=== PATIENT | male | born 1965 | race Caucasian/White ===

== ENCOUNTER 2017-10-11 04:05 | Outpatient (RCR) | payer MEDICARE, SELFPAY | END 2017-11-10 04:05 | LOC: CR 04:05 | PROVIDERS: PCP Nurse Practitioner Family; Visit Provider Family Medicine | DX: I25.2 Old myocardial infarction (principal); Z95.5 Presence of coronary angioplasty implant and graft; Z51.89 Encounter for other specified aftercare ==

== ENCOUNTER → 2018-02-14 09:28 | Outpatient (BNVA) | payer MEDICARE, SELFPAY | PROVIDERS: PCP Nurse Practitioner Family; Visit Provider Student in an Organized Health Care Education/Training Program | DX: R69 Illness, unspecified (principal) | CPT/HCPCS: 99214 ==

== ENCOUNTER 2018-02-14 10:24 | Outpatient (CLI) | payer MEDICARE, SELFPAY ==
[2018-02-14 10:50] LABS: HCT 44.7 % (40.0-50.0); HGB 15.9 g/dL (13.5-17.5); Mean Corp. HGB Concentration 35.6 g/dL (32.0-36.0); Mean Corpuscular Hemoglobin 31.8 pg (27.0-33.0); Mean Corpuscular Volume 89.4 fL (80-95); Mean Platelet Volume 9.9 fL (8.0-11.0); Platelet Count 229 x1000/uL (130-400); RBC Distribution Width 12.1 % (11.8-14.1); White Blood Cell Count 17.01 k/cumm (4.4-10.8)
[2018-02-14 12:21] LABS: ALT 39 U/L (12-78); AST 19 U/L (15-37); Albumin 3.7 g/dL (3.4-5.0); Alkaline Phosphatase 117 U/L (46-116); Anion Gap 9.3 mmol/L (3-11); BUN 20 mg/dL (7-18); Bilirubin, Total 0.6 mg/dL (0.2-1.0); CO2 26.7 mmol/L (21.0-32.0); CREATININE 1.33 mg/dL (0.70-1.30); Calcium 9.3 mg/dL (8.5-10.1); Chloride 99 mmol/L (98-107); Cholesterol 147 mg/dL (50-200); Estimated GFR 56.69 (mL/min/1.73m2); Glucose 211 mg/dL (70-100); HDL Cholesterol 31 mg/dL (40-60); LDL CHOLESTEROL 77 mg/dL (<100); Potassium 4.6 mmol/L (3.5-5.1); Sodium 135 mmol/L (136-145); Total Protein 6.8 g/dL (6.4-8.2); Triglyceride 313 mg/dL (30-150)
== END 2018-02-14 10:44 ==
PROVIDERS: PCP Nurse Practitioner Family; Visit Provider Student in an Organized Health Care Education/Training Program
DX: I25.10 Atherosclerotic heart disease of native coronary artery without angina pectoris (principal); F17.210 Nicotine dependence, cigarettes, uncomplicated; M62.81 Muscle weakness (generalized); E11.9 Type 2 diabetes mellitus without complications; Z79.84 Long term (current) use of oral hypoglycemic drugs; J44.9 Chronic obstructive pulmonary disease, unspecified
CPT/HCPCS: 36415; 80053; 80061; 83721; 85027; 99214

== ENCOUNTER 2018-03-15 09:44 | Outpatient (REF) | payer MEDICARE, SELFPAY ==
[2018-03-15 12:57] LABS: HCT 45.2 % (40.0-50.0); HGB 15.5 g/dL (13.5-17.5); Mean Corp. HGB Concentration 34.3 g/dL (32.0-36.0); Mean Corpuscular Hemoglobin 31.3 pg (27.0-33.0); Mean Corpuscular Volume 91.3 fL (80-95); Mean Platelet Volume 10.2 fL (8.0-11.0); Platelet Count 219 x1000/uL (130-400); RBC 4.95 m/cumm (4.50-6.00); RBC Distribution Width 12.6 % (11.8-14.1); White Blood Cell Count 9.99 k/cumm (4.4-10.8)
[2018-03-15 13:05] LABS: Iron 74 ug/dL (50-175); Total Iron Binding Capacity 300 ug/dL (250-450); Transferrin Sat 25 % (20-55)
[2018-03-15 13:26] LABS: BUN 15 mg/dL (7-18); CREATININE 1.28 mg/dL (0.70-1.30); Calcium 9.2 mg/dL (8.5-10.1); Chloride 102 mmol/L (98-107); Estimated GFR 59.25 (mL/min/1.73m2); Ferritin 105 ng/mL (8-388); Glucose 197 mg/dL (70-100); Magnesium 1.7 mg/dL (1.8-2.4); Potassium 4.7 mmol/L (3.5-5.1); Sodium 139 mmol/L (136-145); TSH (W/Ref FT4) 1.67 uIU/mL (0.358-3.74)
== END 2018-03-15 10:04 ==
LOC: NCHCN 09:44
PROVIDERS: PCP Nurse Practitioner Family; Visit Provider Nurse Practitioner Family
DX: E11.9 Type 2 diabetes mellitus without complications (principal); F41.8 Other specified anxiety disorders; R53.83 Other fatigue; R13.10 Dysphagia, unspecified; R00.2 Palpitations; G47.33 Obstructive sleep apnea (adult) (pediatric); J44.9 Chronic obstructive pulmonary disease, unspecified; R25.2 Cramp and spasm
CPT/HCPCS: 80048; 85027; 82728; 83540; 83550; 83735; 84443

== ENCOUNTER 2018-04-13 09:51 | Emergency (ER) | payer MEDICARE, SELFPAY ==
[2018-04-13 10:01] VITALS: BP 153/87; PULSE 79; RESP 18; TEMP 36.7; O2SAT 97
--- NOTE | 2018-04-13 10:03 | ED.GENADUL_ITS ---
Discharge Plan Disposition Patient Disposition: AGAINST MEDICAL ADVICE Condition: Stable Discharge Details Chief Complaint: Chest Pain Clinical Impression: Unstable angina Primary Care Provider: Abi Lazaro ED Provider: Mihai Jaime Home Meds and New Rx's Prescriptions: Continued amlodipine 2.5 mg tablet 2.5 mg PO DAILY Qty: 90 RF: 3 blood-glucose meter 1 EACH misc 1 ea Miscellaneous ONCE Qty: 1 RF: 0 blood sugar diagnostic [Blood Glucose Test] 1 EACH strip 1 ea Miscellaneous BID Qty: 200 RF: 4 lancets 1 EACH misc 1 ea Miscellaneous BID Qty: 200 RF: 4 metformin 1,000 MG tablet 1,500 mg PO HS Qty: 90 RF: 4 glipizide 5 MG tablet 5 mg PO HS Qty: 90 RF: 4 ProAir HFA 8.5 GM HFA aerosol inhaler 2 puff Inhalation Q6H PRN Qty: 1 RF: 4 nitroglycerin 0.4 MG tablet, sublingual 0.4 mg Sublingual ONCE Qty: 30 RF: 3 aspirin [Aspir-81] 81 MG tablet,delayed release (DR/EC) 81 mg PO DAILY RF: 0 Metoprolol Succinate 25 MG TAB.ER.24H 25 mg PO DAILY RF: 0 acetaminophen 325 MG tablet 650 mg PO Q6H PRN RF: 0 pantoprazole 40 MG tablet,delayed release (DR/EC) 40 mg PO DAILY RF: 0 clopidogrel [Plavix] 75 MG tablet 75 mg PO DAILY RF: 0 Discharge Instructions Instructions: Chest Pain (ED) Additional Instructions: Return immediately to the emergency department for any concerns that you may have for further reevaluation. Please take your medications as prescribed and it is recommended that you follow-up with spa manager/esthetician next week or as soon as possible. Referrals: Abi Lazaro [Primary Care Provider] - Jg Stubbs MD [ CONSULTING PHYSICIAN] - Discharge Data Discharge Date/Time-TO BE ENTERED AT DEPARTURE: 04/13/18 15:57 Medical Decision Making Patient presenting to the emergency department for chief complaint of chest pain. Patient states that this started yesterday morning and has persisted since. Patient does state that pain does occur with both rest and activity and is intermittent with sharp episodes and other episodes having dull pressure. He does state this morning pain was more severe and having an episode of diaphoresis and shortness of breath that seemed to resolve after he took one nitro but still having some chest pressure. Patient does report that this is similar in nature to when he had a non-STEMI approximately 9 months ago which required 2 stents needing to be placed. Patient states he has been taking his medication as prescribed and denies any other symptoms. Physical exam is unremarkable for any reproducible chest pain, abnormal respiratory exam, otherwise unremarkable examination. Patient is stable at this time. Plan to check labs, EKG, and chest x-ray. Patient given additional doses of aspirin to equal 324mg along with Nitropaste transdermal. Review of initial labs is nondiagnostic, slight hypomagnesemia which patient was ordered 1 dose of 400 mg p.o., and negative initial troponin. Review of chest x-ray shows no acute findings. Plan to check 4-hour troponin for rule out of non-STEMI and patient is agreeable to this plan of care. Review of second troponin shows no elevation. Patient reassessed and states pain has minimalized but he still feels constant pressure. Plan to check with spa manager/esthetician and recommend admission. I did discuss admission with the patient which patient refused admission. Patient's heart score shows moderate risk factors for possible cardiac event and this was discussed with patient and patient was adamant that he did not want to stay in the hospital. Pending being able to speak with spa manager/esthetician patient stated he was ready to leave and signed out AMA. Patient states understanding to return for any reason and we would reassess and evaluate at that time. Patient encouraged to continue medication as prescribed by primary care providers. After discussion of diagnosis and plan of care patient has no further needs, questions, or concerns and states clear understanding to return to the emergency department as needed Did speak with Dr. Schwab who was stated he would inform the office of patient needing close follow-up for unstable angina but made no other recommendations at this time. ECG Data Attestation: I personally reviewed and interpreted this ECG (s) as follows: Interpretation: EKG reviewed with Dr. Gutierrez. EKG shows sinus rhythm with a rate of 75, normal axis, no acute ST ischemic changes noted. Repeat EKG shows rate of 66, normal sinus rhythm, normal axis, no acute ST changes, nondiagnostic EKG HPI General Mode of arrival: ambulatory . Date/Time Provider Initiated Documentation: 04/13/18 09:58 . Limitations to Documentation: no limitations . Information obtained by: patient and RN notes reviewed . History of Present Illness described as moderate, with intensity rated at 5. Quality is described as aching, and is localized to the chest. Patient started experiencing this hour(s) (24) and it has been constant. Medication improves symptom(s), (nitro) No exacerbating factors reported . Patient did receive the following treatments prior to arrival, Aspirin and other (nitro) Related Data Home Medications Medication Instructions Recorded Confirmed blood sugar diagnostic [Blood #200 strip 12/04/15 02/14/18 Glucose Test] blood-glucose meter #1 ea 12/04/15 02/14/18 lancets #200 ea 12/04/15 02/14/18 glipizide 5 mg PO HS #90 tab-cap 08/19/16 04/13/18 metformin 1,500 mg PO HS #90 tab-cap 08/19/16 04/13/18 ProAir HFA 2 puff INHALATION Q6H PRN #1 03/24/17 04/13/18 inhaler Metoprolol Succinate 25 mg PO DAILY 08/28/17 04/13/18 aspirin [Aspir-81] 81 mg PO DAILY 08/28/17 04/13/18 nitroglycerin 0.4 mg SUBLINGUAL ONCE #30 tab-cap 08/28/17 04/13/18 clopidogrel [Plavix] 75 mg PO DAILY 09/03/17 04/13/18 acetaminophen 650 mg PO Q6H PRN tab-cap 10/06/17 04/13/18 pantoprazole 40 mg PO DAILY 10/06/17 04/13/18 amlodipine 2.5 mg tablet 2.5 mg PO DAILY #90 tab 02/14/18 04/13/18 Previous Rx's Medication Instructions Recorded ProAir HFA 2 puff INHALATION Q6H PRN #1 03/24/17 inhaler nitroglycerin 0.4 mg SUBLINGUAL ONCE #30 tab-cap 08/28/17 amlodipine 2.5 mg tablet 2.5 mg PO DAILY #90 tab 02/14/18 Allergies Allergy/AdvReac Type Severity Reaction Status Date / Time venlafaxine AdvReac Severe Nausea Unverified 04/13/18 10:04 doxycycline AdvReac Intermediate Cold Unverified 04/13/18 10:04 Chills, made him sick. Review of Systems Constitutional Denies chills, Denies fever(s) and Denies malaise Cardiovascular Reports as per HPI, Reports chest pain, Denies chest pain with activity, Denies syncope, Denies irregular heart rhythm, Denies palpitations and Reports dyspnea Respiratory Denies cough, Denies hemoptysis and Reports dyspnea Gastrointestinal Denies abdominal pain, Denies nausea and Denies vomiting Neurologic Denies syncope Psychiatric Denies anxiety Endocrine Denies cold intolerance, Denies heat intolerance and Denies palpitations PFSH Medical History Acute nontraumatic kidney injury Barretts esophagus CAD (coronary artery disease) Chronic obstructive lung disease DM (diabetes mellitus) Depression with anxiety Hyperlipidemia CARLOTA (obstructive sleep apnea) Parastomal hernia Smoker Spondylosis of cervical region without myelopathy or radiculopathy Thoracic spine pain Surgical History Colonoscopy - MAC EGD - MAC (02/18/14) EGD - MAC (11/09/15) EGD - MAC (08/23/16) Luisana Fundoplication Open Carpal Tunnel release Vasectomy left shoulder repair right ulnar graft Family History Father Diabetes Alcohol abuse Essential hypertension Hyperlipidemia Neoplasm Mother Diabetes Essential hypertension Heart disease Hyperlipidemia Mental disorder Brother Hyperlipidemia Sister Heart disease Social History Smoking/Tobacco Use Status: Current every day Exam Const General: cooperative, healthy appearing, comfortable, no acute distress, not diaphoretic and not ill appearing Orientation: alert, awake and oriented x3 Limitations: mental status not altered Neck Neck: normal visual inspection, full ROM, trachea midline, supple and no anterior neck swelling Thyroid: thyroid normal Carotids: normal carotid upstroke and no bruits Chest Chest: normal inspection of the chest Resp Effort & Inspection: normal respiratory effort and able to speak in complete sentences Auscultation: clear to auscultation bilaterally Cardio Jugular venous pressure: no JVD Palpation: normal PMI Rate: regular rate Rhythm: regular rhythm Heart Sounds: S1 normal, S2 normal, no click, no gallops, no murmurs and no rubs Bruits: no abdominal aortic bruits and no carotid bruits Pulses: radial pulses present bilaterally 2+ GI Inspection: normal to inspection Palpation: soft, no aortic enlargement, no pulsatile masses and nontender Auscultation: normal bowel sounds Skin General skin exam: no rashes or lesions noted Neuro General: alert, awake, oriented x3, tone normal and moves all extremities
[2018-04-13] MEDS: Aspirin 81 MG CHEW 243 MG CH (10:13)
[2018-04-13 10:29] LABS: Abs Immature Grans 0.02 k/cumm (0.0-0.09); Absolute Basophil Count 0.06 k/cumm (0.0-0.2); Absolute Eosinophil Count 0.19 k/cumm (0.0-0.7); Absolute Monocyte Count 0.68 k/cumm (0.11-0.7); Basophils % 0.5; Eosinophils % 1.5; HCT 45.3 % (40.0-50.0); Immature Grans % 0.2; Lymphocytes % 23.8; Mean Corp. HGB Concentration 35.3 g/dL (32.0-36.0); Mean Corpuscular Hemoglobin 32.1 pg (27.0-33.0); Mean Corpuscular Volume 90.8 fL (80-95); Mean Platelet Volume 9.3 fL (8.0-11.0); Monocytes % 5.3; Neutrophils % 68.7; Platelet Count 221 x1000/uL (130-400); RBC 4.99 m/cumm (4.50-6.00); RBC Distribution Width 12.6 % (11.8-14.1); White Blood Cell Count 12.84 k/cumm (4.4-10.8)
[2018-04-13 10:30] LABS: Absolute Lymphocyte Count 3.06 k/cumm (1.2-3.4); Absolute Neutrophil Count 8.82 k/cumm (1.2-6.7)
[2018-04-13 10:39] LABS: ALT 41 U/L (12-78); AST 20 U/L (15-37); Albumin 3.5 g/dL (3.4-5.0); Alkaline Phosphatase 107 U/L (46-116); Anion Gap 8.2 mmol/L (3-11); BUN 17 mg/dL (7-18); Bilirubin, Total 0.5 mg/dL (0.2-1.0); CO2 29.8 mmol/L (21.0-32.0); Calcium 8.9 mg/dL (8.5-10.1); Chloride 100 mmol/L (98-107); Glucose 171 mg/dL (70-100); Magnesium 1.4 mg/dL (1.8-2.4); Potassium 4.3 mmol/L (3.5-5.1); Sodium 138 mmol/L (136-145); Total Protein 7.1 g/dL (6.4-8.2)
[2018-04-13 10:42] LABS: PTT Activated 22.7 sec (21.0-31.4); Prothrombin Time 9.6 sec (9.3-11.0)
[2018-04-13 10:43] LABS: Troponin I < 0.02 ng/mL (0.00-0.06)
--- NOTE | 2018-04-13 11:21 | DI.RAD_ITS ---
SYMPTOM/DIAGNOSIS: CHEST PAIN, SHORTNESS OF BREATH PA AND LATERAL CHEST: 04/13/18 The heart is normal in size. The lungs are clear. The mediastinal structures and pleura appear intact. CONCLUSION: Normal chest.
[2018-04-13] MEDS: Magnesium Oxide 400 MG TAB PO (11:45)
[2018-04-13 11:50] VITALS: BP 128/78; PULSE 72; RESP 16; O2SAT 99
[2018-04-13 13:26] VITALS: BP 126/84; PULSE 63; RESP 18; O2SAT 99
--- NOTE | 2018-04-13 13:27 | NUR.NOTE ---
patient reports intermtient chest pain Nursing Note:
[2018-04-13 15:03] LABS: Troponin I < 0.02 ng/mL (0.00-0.06)
--- NOTE | 2018-04-13 15:36 | NUR.NOTE ---
patient's I V dc'd per request, states, I am leaving encouraged to stay, INTELLIGENCE AGENT aware. Nursing Note:
--- NOTE | 2018-04-13 15:57 | NUR.NOTE ---
patient left AMA, FREIGHT LOADER went over risks of leaving with patient, patient encouraged to stay and declined. nitro patch removed FREIGHT LOADER order Nursing Note:
--- NOTE | 2018-04-16 09:18 | PDOC.ERCMPRO ---
Care Management Progress Note 04/16-Kian DSOUZA requested cardiology f/u early this week for unstable angina. Kian has spoken with Dr. Schwab. Referral faxed to [facility] this am.
== END 2018-04-13 15:57 | disposition left against medical advice (07) ==
PROVIDERS: Emergency Provider Nurse Practitioner Family; PCP Nurse Practitioner Family
DX: I20.0 Unstable angina (principal); E83.42 Hypomagnesemia
CPT/HCPCS: 36415; 80053; 93005; 99285; 71046; 83735; 84484; 85025; 85610; 85730; 93010

== ENCOUNTER → 2018-04-18 13:36 | Outpatient (BNVA) | payer MEDICARE, SELFPAY | PROVIDERS: PCP Nurse Practitioner Family; Visit Provider Student in an Organized Health Care Education/Training Program | DX: I25.10 Atherosclerotic heart disease of native coronary artery without angina pectoris (principal); J44.9 Chronic obstructive pulmonary disease, unspecified; F17.210 Nicotine dependence, cigarettes, uncomplicated; E11.9 Type 2 diabetes mellitus without complications; Z79.84 Long term (current) use of oral hypoglycemic drugs | CPT/HCPCS: 99215 ==

== ENCOUNTER 2018-04-23 00:31 | Outpatient (CLI) | payer MEDICARE, SELFPAY ==
--- NOTE | 2018-04-23 06:50 | MERGEMPI_ITS ---
*[facility]* *[facility]* [address] [place] [address] Myocardial Perfusion Imaging - SPECT Cabrera protocol Date of study: 04/23/2018 *PATIENT PRESENTATION* Height: 182.9cm (72in) Blood Pressure: Weight: 120.9kg (266lb) BSA: 2.52m^2 Referring physician: Angeles Bowens Ordering physician: Jg Stubbs Impressions: - Normal study after pharmacologic stress. - Good functional capacity - stress converted to pharm stress as THR not achieved. Summary: 1. Myocardial perfusion imaging: No myocardial perfusion defects noted. 2. The calculated left ventricular ejection fraction after stress: 70%. LV global systolic function is normal. No left ventricular regional motion abnormality. 3. Stress: The target heart rate was not achieved. Indication: R07.9. History: REASON FOR TESTING: PATIENT PRESENTED TO THE ED ON 04/13/18 WITH INTERMITTENT EPISODES OF MIDSTERNAL SHARP CHEST PAINS, ALTHOUGH AT OTHER TIMES HIS CHEST PAIN WILL BE A DULL PRESSURE. CHEST PAIN OCCURS AT REST AND WITH ACTIVITY. TROPONINS IN ER WERE NEGATIVE. PATIENT REPORTS HAVING INTERMITTENT CHEST PAIN FOR THE PAST 18 MONTHS. CHEST PAIN OCCASIONALLY WILL RADIATE TO NECK AND HE MAY HAVE DIAPHORESIS. TODAY PATIENT DENIES CHEST PAIN UPON ARRIVAL TO EXERCISE TESTING. SIGNIFICANT PAST MEDICAL HISTORY: STATUS POST RCA PCI FOR STEMI IN AUGUST 2017. TWO STENTS PLACED IN AUGUST 2017. SMOKING STATUS: SMOKER 40 YEARS, 2 PPD EXERCISE ROUTINE: DAILY ADL'S. PMH: COPD. Risk factors: Family history of coronary artery disease. Current tobacco use. Dyslipidemia. Cholesterol: 147mg/dl. HDL: 31mg/dl. LDL: 77mg/dl. Triglycerides: 313mg/dl. ALLERGIES: NO KNOWN ALLERGIES. MEDICATIONS: ACETAMINOPHEN 650 MG PRN, ASPIRIN 81 MG DAILY, ATORVASTATIN 20 MG HS, PLAVIX 75 MG DAILY, GLIPIZIDE 5 MG HS, ISOSORBIDE MONONITRATE 30 MG DAILY, METFORMIN 1000 BID, METOPROLOL 25 MG DAILY, NITROGLYCERIN 0.4 MG PRN, PANTOPRAZOLE 40 MG HS, PROAIR HFA 2 PUFFS PRN. Imaging Technique: Protocol: Cabrera protocol. Acquisition: Gated SPECT; 1 day - rest/stress. The patient was imaged in the supine position. Attenuation correction used. Isotope administration: - Rest. Tc[99m]-sestamibi. Dose: 11.7mCi. Injection time: 08:15 AM. Injection to stress time: 00:45. - Stress. Tc[99m]-sestamibi. Dose: 37.1mCi. Injection time: 10:35 PM. 1-2 min before end of exercise Baseline ECG: SINUS RHYTHM. HR 76 BPM. Stress protocol: + +---+ + + !Stage !HR !BP (mmHg) !Comments ! + +---+ + + !Baseline supine !76 !136/90 (105)! ! + +---+ + + !Baseline standing !85 !124/90 (101)! ! + +---+ + + !Stage I; 1.7mph, 10degrees; 3 min!113!152/84 (107)! ! + +---+ + + !Stage II; 2.5mph, 12degrees; 3 !117!168/84 (112)! ! !min ! ! ! ! + +---+ + + !Peak stress !129! ! ! + +---+ + + !Recovery; 1 min !115!170/80 (110)! ! + +---+ + + !1 min !101!158/84 (109)!Susi Ryan.! + +---+ + + !3 min !94 !140/88 (105)! ! + +---+ + + !6 min !86 !140/90 (107)! ! + +---+ + + * Stress results: STRESS TEST ENDED IN 9 MINUTES 1 SECOND DUE TO FATIGUE. PATIENT DID NOT MEET TARGET HEART RATE. NORMAL HEART RATE AND BLOOD PRESSURE RESPONSE TO EXERCISE. MAX HEART RATE: 129 76 % OF TARGET HEART RATE. MET'S: 1035 RARE PAC'S WITH EXERCISE. NO ANGINA NO SIGNIFICANT ST SEGMENT CHANGES. FUNCTIONAL CAPACITY: AVERAGE CAPACITY. TRANSITIONED TO LEXISCAN BECAUSE TARGET HEART RATE NOT ACHIEVED. LEXISCAN PROTOCOL STRESS TEST ENDED IN 7 MINUTES 13 SECONDS. NORMAL HEART RATE AND BLOOD PRESSURE RESPONSE TO LEXISCAN INJECTION. NO ANGINA. NO SIGNIFICANT ST SEGMENT CHANGES. Maximal heart rate during stress was 129bpm (76% of maximal predicted heart rate). The maximal predicted heart rate was 169bpm. The target heart rate was not achieved. The rate-pressure product for the peak heart rate and blood pressure was 53902yb Hg/min. Myocardial perfusion: Imaging information: gated. Left ventricular size is normal. No myocardial perfusion defects noted. Ventricular Function (Wall Motion): The calculated left ventricular ejection fraction after stress: 70%. LV global systolic function is normal. No left ventricular regional motion abnormality. Study data: Angeles Boewns MD supervised and was readily available during the procedure. This study was interpreted by [facility]. Study status: Routine. Consent: The risks, benefits, and alternatives to the procedure were explained to the patient and informed consent was obtained. Procedure: Initial setup. A baseline ECG was recorded. Surface ECG leads and manual cuff blood pressure measurements were monitored. Heart sounds: Normal. Lung sounds: Normal. Treadmill exercise testing was performed using the Cabrera protocol. Study completion: All catheters inserted during the procedure were removed. The patient tolerated the procedure well and was discharged from the lab. Discharge: The patient left the laboratory in stable condition. Birthdate: Patient birthdate: 1965. Sex: Gender: male. Study date: Study date: 04/23/2018. Study time: 00:01 AM. Signature Documentation: - The imaging portion of this study was interpreted by Nuclear Language Translator Angeles Bowens MD. - The imaging portion of this study was interpreted by Nuclear Radiologist Jeovanny Larson MD. - The Stress ECG portion of this study was interpreted by Angeles Bowens MD. Electronically signed by Angeles Bowens 04/23/2018 15:04
[2018-04-23] MEDS: Regadenoson 0.4 MG/5 ML SYR IVP (10:45)
== END 2018-04-23 00:51 ==
PROVIDERS: PCP Nurse Practitioner Family; Visit Provider Student in an Organized Health Care Education/Training Program
DX: R07.9 Chest pain, unspecified (principal); I25.10 Atherosclerotic heart disease of native coronary artery without angina pectoris; I25.2 Old myocardial infarction; Z98.61 Coronary angioplasty status; F17.200 Nicotine dependence, unspecified, uncomplicated; E78.5 Hyperlipidemia, unspecified; Z82.49 Family history of ischemic heart disease and other diseases of the circulatory system
CPT/HCPCS: 78452; 93016; 93018; 93017; J2785

== ENCOUNTER → 2018-04-25 12:40 | Outpatient (BNVA) | payer MEDICARE, SELFPAY | PROVIDERS: PCP Nurse Practitioner Family; Visit Provider Student in an Organized Health Care Education/Training Program | DX: I25.10 Atherosclerotic heart disease of native coronary artery without angina pectoris (principal); F17.210 Nicotine dependence, cigarettes, uncomplicated; Z98.61 Coronary angioplasty status; E11.9 Type 2 diabetes mellitus without complications; Z79.84 Long term (current) use of oral hypoglycemic drugs | CPT/HCPCS: 99214 ==

== ENCOUNTER 2018-06-22 14:06 | Outpatient (REF) | payer MEDICARE, SELFPAY | END 2018-06-22 14:26 | LOC: NCHCN 14:06 | PROVIDERS: PCP Nurse Practitioner Family; Visit Provider Nurse Practitioner Family | DX: E83.42 Hypomagnesemia (principal) | CPT/HCPCS: 83735 ==

== ENCOUNTER → 2018-09-20 13:36 | Outpatient (BNVA) | payer MEDICARE, SELFPAY | PROVIDERS: Visit Provider Student in an Organized Health Care Education/Training Program | DX: I25.10 Atherosclerotic heart disease of native coronary artery without angina pectoris; Z98.61 Coronary angioplasty status; F17.210 Nicotine dependence, cigarettes, uncomplicated; E11.9 Type 2 diabetes mellitus without complications; Z79.84 Long term (current) use of oral hypoglycemic drugs; J44.9 Chronic obstructive pulmonary disease, unspecified | CPT/HCPCS: 99214 ==

== ENCOUNTER 2018-10-15 00:30 | Outpatient (CLI) | payer MEDICARE, SELFPAY ==
--- NOTE | 2018-10-15 10:42 | DI.MRI_ITS ---
SYMPTOM/DIAGNOSIS: CHRONIC NECK PAIN, M54.2, ACUTE NECK PAIN, S/P FALL 09/25 CERVICAL SPINE MRI: Comparison is made with 09/21/17. The exam is mildly limited by patient motion. The C 2-3 level is unremarkable. There is mild narrowing of the C 3-4 disc and broad based disc bulging narrowing the anterior CSF space. There is no definite impingement on the cord. At C 4-5, there is slight disc bulging. At C 5-6, there is a central disc protrusion which is more prominent when compared with the prior exam. It impinges on the anterior cord. There is also mild disc osteophyte prominence narrowing the neural foramen. This appears stable. At C 6-7, there is mild disc bulging causing mild effacement of the anterior CSF space but no significant neural foraminal narrowing. The C 7-T 1 level is unremarkable. The cord signal is normal. IMPRESSION: 1. New central disc protrusion measuring 10 mm. at the C 5-6 level causing impingement on the anterior cord. 2. Previously noted disc herniation at C 3-4 is no longer seen. There is broad based disc osteophyte complex at this level.
== END 2018-10-15 00:50 ==
PROVIDERS: PCP Nurse Practitioner Family; Visit Provider Nurse Practitioner Family
DX: M54.2 Cervicalgia (principal); M50.222 Other cervical disc displacement at C5-C6 level; M25.78 Osteophyte, vertebrae
CPT/HCPCS: 72141

== ENCOUNTER → 2018-10-17 14:13 | Outpatient (BNVA) | payer MEDICARE, SELFPAY | PROVIDERS: PCP Nurse Practitioner Family; Visit Provider Student in an Organized Health Care Education/Training Program | DX: I25.10 Atherosclerotic heart disease of native coronary artery without angina pectoris (principal); Z98.61 Coronary angioplasty status; F17.210 Nicotine dependence, cigarettes, uncomplicated; E11.9 Type 2 diabetes mellitus without complications; Z79.84 Long term (current) use of oral hypoglycemic drugs | CPT/HCPCS: 99213 ==

== ENCOUNTER 2018-11-13 12:57 | Outpatient (REF) | payer MEDICARE, SELFPAY ==
[2018-11-13 21:27] LABS: Anion Gap 10.1 mmol/L (3-11); BUN 11 mg/dL (7-18); CO2 24.9 mmol/L (21.0-32.0); CREATININE 1.31 mg/dL (0.70-1.30); Calcium 8.9 mg/dL (8.5-10.1); Chloride 103 mmol/L (98-107); Estimated GFR 57.69 (mL/min/1.73m2); Glucose 137 mg/dL (70-100); Potassium 4.8 mmol/L (3.5-5.1); Sodium 138 mmol/L (136-145)
== END 2018-11-13 13:17 ==
LOC: NCHCN 12:57
PROVIDERS: PCP Nurse Practitioner Family; Visit Provider Internal Medicine
DX: Z01.812 Encounter for preprocedural laboratory examination (principal)
CPT/HCPCS: 80048

== ENCOUNTER 2018-11-19 01:12 | Outpatient (CLI) | payer MEDICARE, SELFPAY ==
--- NOTE | 2018-11-19 | PFT_ITS ---
PULMONARY FUNCTION TEST REPORT Patient - Samy Patricio DATE OF 67 DATE OF SERVICE November 19, 2018 REQUESTING PROVIDER Abi Lazaro NP INTERPRETATION OF STUDY Spirometry shows mild obstructive airways disease with no significant bronchodilator response. LUNG VOLUMES - Lung volumes show no evidence of restriction. DIFFUSION CAPACITY- Normal. AIRWAY RESISTANCE - Normal. IMPRESSION Mild obstructive airways disease with no significant bronchodilator response. Clinical correlation recommended. Sandra Cleveland M.D. ROSA M/ T- 11/22/2018
[2018-11-19] MEDS: Inhaler, Assist Device 1 EACH MC (10:55)
[2018-11-19] MEDS: Albuterol HFA 18 GM 200 PUFF INH IH (10:56)
== END 2018-11-19 01:32 ==
PROVIDERS: PCP Nurse Practitioner Family; Visit Provider Nurse Practitioner Family
DX: J44.9 Chronic obstructive pulmonary disease, unspecified (principal); R05 Cough; F17.210 Nicotine dependence, cigarettes, uncomplicated
CPT/HCPCS: 94060; 94150; 94726; 94729

== ENCOUNTER 2018-11-19 12:24 | Outpatient (CLI) | payer MEDICARE, SELFPAY ==
--- NOTE | 2018-11-19 11:20 | DI.RAD_ITS ---
SYMPTOM/DIAGNOSIS: COPD J44.9 PA AND LATERAL CHEST: 11/19 The heart is normal in size. The lungs are clear. The mediastinal structures and pleura appear intact. CONCLUSION: Normal chest.
== END 2018-11-19 12:44 ==
PROVIDERS: PCP Nurse Practitioner Family; Visit Provider Internal Medicine
DX: J44.9 Chronic obstructive pulmonary disease, unspecified (principal)
CPT/HCPCS: 71046

== ENCOUNTER 2019-01-24 12:17 | Outpatient (REF) | payer MEDICARE, SELFPAY ==
[2019-01-24 21:39] LABS: Abs Immature Grans 0.03 k/cumm (0.0-0.09); Absolute Basophil Count 0.04 k/cumm (0.0-0.2); Absolute Eosinophil Count 0.15 k/cumm (0.0-0.7); Absolute Lymphocyte Count 2.56 k/cumm (1.2-3.4); Absolute Monocyte Count 0.54 k/cumm (0.11-0.7); Absolute Neutrophil Count 4.87 k/cumm (1.2-6.7); Basophils % 0.5; Eosinophils % 1.8; HCT 47.3 % (40.0-50.0); HGB 16.3 g/dL (13.5-17.5); Immature Grans % 0.4; Lymphocytes % 31.3; Mean Corp. HGB Concentration 34.5 g/dL (32.0-36.0); Mean Corpuscular Hemoglobin 31.6 pg (27.0-33.0); Mean Corpuscular Volume 91.7 fL (80-95); Mean Platelet Volume 10.6 fL (8.0-11.0); Monocytes % 6.6; Neutrophils % 59.4; Platelet Count 224 x1000/uL (130-400); RBC 5.16 m/cumm (4.50-6.00); RBC Distribution Width 12.7 % (11.8-14.1); White Blood Cell Count 8.19 k/cumm (4.4-10.8)
[2019-01-24 21:58] LABS: Hemoglobin A1C 9.8 % (4.5-6.2)
[2019-01-24 22:00] LABS: ALT 75 U/L (16-63); AST 38 U/L (15-37); Albumin 4.1 g/dL (3.4-5.0); Alkaline Phosphatase 110 U/L (46-116); Anion Gap 10.3 mmol/L (3-11); BUN 13 mg/dL (7-18); CO2 28.7 mmol/L (21.0-32.0); Chloride 95 mmol/L (98-107); Estimated GFR 57.97 (mL/min/1.73m2); Glucose 367 mg/dL (70-100); Potassium 4.9 mmol/L (3.5-5.1); Sodium 134 mmol/L (136-145); Total Protein 6.9 g/dL (6.4-8.2)
== END 2019-01-24 12:37 ==
LOC: NCHCN 12:17
PROVIDERS: PCP Nurse Practitioner Family; Visit Provider Nurse Practitioner Family
DX: M50.00 Cervical disc disorder with myelopathy, unspecified cervical region (principal); E11.9 Type 2 diabetes mellitus without complications; Z01.812 Encounter for preprocedural laboratory examination
CPT/HCPCS: 80053; 83036; 85025

== ENCOUNTER 2019-03-19 10:13 | Outpatient (REF) | payer MEDICARE, SELFPAY ==
[2019-03-19 13:18] LABS: ALT 62 U/L (16-63); AST 30 U/L (15-37); Albumin 3.7 g/dL (3.4-5.0); Alkaline Phosphatase 107 U/L (46-116); Bilirubin, Total 0.5 mg/dL (0.2-1.0); Total Protein 6.8 g/dL (6.4-8.2)
[2019-03-19 15:35] LABS: Bilirubin, Direct 0.16 mg/dL (0.00-0.20)
== END 2019-03-19 10:33 ==
LOC: NCHCN 10:13
PROVIDERS: PCP Nurse Practitioner Family; Visit Provider Nurse Practitioner Family
DX: R74.0 Nonspecific elevation of levels of transaminase and lactic acid dehydrogenase [LDH] (principal); E11.9 Type 2 diabetes mellitus without complications; E66.9 Obesity, unspecified; N18.3 Chronic kidney disease, stage 3 (moderate)
CPT/HCPCS: 80076

== ENCOUNTER 2019-05-07 02:30 | Outpatient (CLI) | payer MEDICARE, OTHER, SELFPAY ==
[2019-05-07 11:11] LABS: HCT 48.9 % (40.0-50.0); HGB 16.5 g/dL (13.5-17.5); Mean Corp. HGB Concentration 33.7 g/dL (32.0-36.0); Mean Corpuscular Hemoglobin 31.2 pg (27.0-33.0); Mean Corpuscular Volume 92.4 fL (80-95); Mean Platelet Volume 9.9 fL (8.0-11.0); Platelet Count 200 x1000/uL (130-400); RBC 5.29 m/cumm (4.50-6.00); RBC Distribution Width 12.7 % (11.8-14.1); White Blood Cell Count 7.27 k/cumm (4.4-10.8)
[2019-05-07 12:48] LABS: ALT 37 U/L (16-63); AST 21 U/L (15-37); Albumin 3.5 g/dL (3.4-5.0); Alkaline Phosphatase 78 U/L (46-116); Anion Gap 8.9 mmol/L (3-11); BUN 14 mg/dL (7-18); Bilirubin, Total 0.8 mg/dL (0.2-1.0); CO2 31.1 mmol/L (21.0-32.0); CREATININE 1.19 mg/dL (0.70-1.30); Calcium 9.6 mg/dL (8.5-10.1); Calculated LDL 63 mg/dL (<100); Chloride 102 mmol/L (98-107); Cholesterol 125 mg/dL (<200); Glucose 93 mg/dL (74-106); HDL Cholesterol 34 mg/dL (40-60); Potassium 4.2 mmol/L (3.5-5.1); Sodium 142 mmol/L (136-145); TSH (W/Ref FT4) 1.97 uIU/mL (0.36-3.74); Total Protein 6.4 g/dL (6.4-8.2); Triglyceride 143 mg/dL (<150)
[2019-05-07 12:57] LABS: Hemoglobin A1C 6.4 % (3.8-5.6)
== END 2019-05-07 02:50 ==
PROVIDERS: PCP Family Medicine; Visit Provider Family Medicine
DX: E11.9 Type 2 diabetes mellitus without complications (principal); I10 Essential (primary) hypertension; F32.9 Major depressive disorder, single episode, unspecified; K22.70 Barrett's esophagus without dysplasia
CPT/HCPCS: 36415; 80053; 80061; 85027; 83036; 84443

== ENCOUNTER → 2019-06-27 10:58 | Outpatient (BNVA) | payer MEDICARE, OTHER, SELFPAY | PROVIDERS: PCP Family Medicine; Referring Provider Family Medicine; Visit Provider Internal Medicine Cardiovascular Disease | DX: M47.812 Spondylosis without myelopathy or radiculopathy, cervical region (principal); I25.10 Atherosclerotic heart disease of native coronary artery without angina pectoris; I10 Essential (primary) hypertension; F17.200 Nicotine dependence, unspecified, uncomplicated; Z98.61 Coronary angioplasty status; E11.22 Type 2 diabetes mellitus with diabetic chronic kidney disease; N18.3 Chronic kidney disease, stage 3 (moderate); J44.9 Chronic obstructive pulmonary disease, unspecified | CPT/HCPCS: 99204; 99443 ==

== ENCOUNTER → 2019-07-05 07:53 | Outpatient (BNVA) | payer MEDICARE, OTHER, SELFPAY | PROVIDERS: PCP Family Medicine; Referring Provider Family Medicine; Visit Provider Surgery | DX: R10.12 Left upper quadrant pain (principal); K27.9 Peptic ulcer, site unspecified, unspecified as acute or chronic, without hemorrhage or perforation; J44.9 Chronic obstructive pulmonary disease, unspecified; F17.210 Nicotine dependence, cigarettes, uncomplicated; I10 Essential (primary) hypertension; E11.9 Type 2 diabetes mellitus without complications; Z79.84 Long term (current) use of oral hypoglycemic drugs | CPT/HCPCS: 99214 ==

== ENCOUNTER 2019-07-12 01:31 | Outpatient (CLI) | payer MEDICARE, OTHER, SELFPAY ==
--- NOTE | 2019-07-12 06:30 | DI.CT_ITS ---
EXAM: CT ABDOMEN PELVIS W CLINICAL HISTORY: Abdominal pain, reflux, hx of Luisana, ? hernia, PUD,R10.9,K27.9 TECHNIQUE: COMPARISON: ABD PELVIS WITH CONTRAST from 10/18/2015 FINDINGS: CT examination of the abdomen and pelvis was performed with bolus infusion of 100 cc of Omnipaque 350 . Images obtained through the lung bases are unremarkable. There is a hiatal hernia. There is evid ence of prior surgery at the esophageal hiatus with multiple vascular clips present. The findings as described are unchanged from prior study of October 18, 2015. There is no evidence of obstruction. The liver and spleen are unremarkable in appearance. Pancreas appears normal. The adrenals and kidn eys appear normal. No evidence of urinary tract obstruction or calcification. No biliary dilatation , gallbladder appears normal by CT criteria. Abdominal aorta and major visceral vessels are unremarkable in appearance. No abdominal or pelvic ad enopathy. No significant abdominal wall hernia, tiny fat containing umbilical hernia noted. Appendix appears normal. No evidence of diverticulitis or bowel obstruction. IMPRESSION: No evidence of acute process. Prior surgical procedure at esophageal hiatus, residual or recurrent h iatal hernia, small, unchanged from 10/18/2015.
[2019-07-12] MEDS: Breeza Beverage 473 ML BTL PO ×2 (07:34→07:36)
[2019-07-12] MEDS: Omnipaque 350 MG/ML 50 ML BTL PO (07:36)
[2019-07-12] MEDS: Omnipaque 350 MG/ML 100 ML BTL IJ (08:47)
[2019-07-12] MEDS: Normal Saline - Diluent 50 ML VIAL IV (08:48)
== END 2019-07-12 01:51 ==
PROVIDERS: PCP Family Medicine; Visit Provider Surgery
DX: R10.9 Unspecified abdominal pain (principal); K27.9 Peptic ulcer, site unspecified, unspecified as acute or chronic, without hemorrhage or perforation; K21.9 Gastro-esophageal reflux disease without esophagitis; K44.9 Diaphragmatic hernia without obstruction or gangrene
CPT/HCPCS: 74177; J3490; Q9967

== ENCOUNTER → 2019-08-01 16:02 | Outpatient (BNVA) | payer MEDICARE, OTHER, SELFPAY | PROVIDERS: PCP Family Medicine; Referring Provider Family Medicine; Visit Provider Internal Medicine Cardiovascular Disease | DX: I25.10 Atherosclerotic heart disease of native coronary artery without angina pectoris (principal); Z98.61 Coronary angioplasty status; I10 Essential (primary) hypertension; I12.9 Hypertensive chronic kidney disease with stage 1 through stage 4 chronic kidney disease, or unspecified chronic kidney disease; E11.22 Type 2 diabetes mellitus with diabetic chronic kidney disease; N18.3 Chronic kidney disease, stage 3 (moderate); J44.9 Chronic obstructive pulmonary disease, unspecified; F17.210 Nicotine dependence, cigarettes, uncomplicated | CPT/HCPCS: 99442; 99213 ==

== ENCOUNTER 2019-08-05 09:09 | Outpatient (CLI) | payer MEDICARE, OTHER, SELFPAY ==
[2019-08-06 03:19] LABS: COVID-19 RT-PCR UVMMC Result Negative (Negative)
== END 2019-08-05 09:29 ==
PROVIDERS: PCP Family Medicine; Visit Provider Surgery
DX: Z03.818 Encounter for observation for suspected exposure to other biological agents ruled out (principal)
CPT/HCPCS: U0003

== ENCOUNTER 2019-08-06 00:06 | Emergency (ER) | payer MEDICARE, OTHER, SELFPAY ==
[2019-08-06] VITALS (7 sets, daily range): BP systolic 96–150; BP diastolic 59–106; PULSE 57–94; RESP 14–25; O2SAT 92–100
[2019-08-06] MEDS: Atropine 1 MG/10 ML SYRINGE 0.5 MG IVP (00:05)
--- NOTE | 2019-08-06 00:14 | ED.GENADUL_ITS ---
Discharge Plan Disposition Patient Disposition: [facility] Condition: Critical Discharge Details Chief Complaint: Chest Pain Clinical Impression: ST elevation NC (STEMI) Primary Care Provider: Sae Marr ED Provider: Dallas Gutierrez Home Meds and New Rx's Prescriptions: No Action atorvastatin 20 mg tablet 40 mg PO QHS RF: 0 glipizide 10 mg tablet 10 mg PO BID RF: 0 metformin 1,000 mg tablet 1,000 mg PO BID Qty: 90 RF: 3 isosorbide mononitrate 120 mg tablet extended release 24 hr 240 mg PO DAILY Qty: 180 RF: 3 Trulicity 0.75 mg/0.5 mL pen injector 0.75 mg SC QWEEK Qty: 6 RF: 3 pantoprazole 40 mg tablet,delayed release (DR/EC) 40 mg PO BID Qty: 60 RF: 3 lisinopril 20 mg tablet 10 mg PO DAILY RF: 0 nitroglycerin 0.4 mg tablet, sublingual 0.4 mg Sublingual ONCE Qty: 30 RF: 3 metoprolol succinate 50 mg tablet extended release 24 hr 50 mg PO DAILY Qty: 90 RF: 6 aspirin [Aspir-81] 81 MG tablet,delayed release (DR/EC) 81 mg PO DAILY RF: 0 acetaminophen 325 mg tablet 650 mg PO Q6H PRN RF: 0 bisacodyl [Dulcolax (bisacodyl)] 5 mg tablet,delayed release (DR/EC) 5 mg PO ONCE Qty: 4 RF: 0 polyethylene glycol 3350 17 gram powder in packet 255 g PO DAILY Qty: 15 RF: 0 Medical Decision Making This is a 120 kg 53-year-old male with a history of coronary artery disease and hypertension. Presents via EMS after complaining of chest pain at home, having a syncopal event in front of his , waking up and asking her to call the ambulance. Paramedics found him bradycardic and hypotensive. They are unable to establish IV, they stated that they gave the patient fentanyl and Versed. He was placed on external pacer pads. He arrives chávez, cool, ill-appearing but able to respond to voice. IV access was established x2, portable chest x-ray is obtained which shows pulmonary edema. Patient was given aspirin, Plavix, TNK, was placed on dopamine and epinephrine drips and heparin bolus and drip. I consented the patient's for the use of TNK. Bedside ultrasound was of poor quality but does not reveal significant pericardial effusion. Patient had clinical improvement following above interventions and were able to wean off of dopamine drip. His repeat EKG reveals near complete resolution of inferior ST segment elevations. Case discussed with on-call cardiology at [facility], Dr. Arana, patient accepted in emergent transfer with branch rental manager crew to the service of Dr. Aragon. Addendum: Please note the patient's initial EKG was performed under his initials PS. It currently has not uploaded to his medical record. Lab Data Lab results reviewed: Yes I reviewed the patient's lab results. Labs: Laboratory Results - last 24 hr 08/06/19 08/06/19 08/06/19 00:15 00:15 00:15 WBC 12.50 H RBC 4.46 L Hgb 14.2 Hct 40.5 MCV 90.8 MCH 31.8 MCHC 35.1 RDW 13.5 Plt Count 274 MPV 9.4 Immature Gran % 0.2 Neutrophils % 57.2 Lymphocytes % 31.7 Monocytes % 6.9 Eosinophils % 3.7 Basophils % 0.3 Absolute Neutrophils 7.15 H Absolute Lymphocytes 3.96 H Absolute Monocytes 0.86 H Absolute Eosinophils 0.46 Absolute Basophils 0.04 APTT 23.1 Sodium 136 Potassium 3.8 Chloride 104 Carbon Dioxide 22.7 Anion Gap 9.3 BUN 13 Creatinine 1.64 H Estimated GFR/1.73 m2 44.34 Glucose 221 H Calcium 7.9 L Magnesium 1.6 L Total Bilirubin 0.5 AST 61 H ALT 61 Alkaline Phosphatase 82 Troponin I 0.16 H* Total Protein 5.8 L Albumin 2.9 L ECG Data Attestation: I personally reviewed and interpreted this ECG (s) as follows: Interpretation: Sinus bradycardia, rate is 58, there is ST segment elevation in the inferior and anterior leads. HPI General Mode of arrival: EMS . Date/Time Provider Initiated Documentation: 08/06/19 00:16 . Information obtained by: EMS . History of Present Illness 53 year old M presents to the emergency department with the chief complaint of Chest pain, question syncope at home. Began approximately 2 hours ago, Quality is described as constant, and is localized to the chest. Patient started experiencing this hour(s) Patient notes chest pain and syncope. Patient did receive the following treatments prior to arrival, other (Was given fentanyl and Versed by EMS.) Related Data Home Medications Medication Instructions Recorded Confirmed aspirin [Aspir-81] 81 mg PO DAILY 08/28/17 08/01/19 atorvastatin 20 mg tablet 40 mg PO QHS tab 09/20/18 08/01/19 glipizide 10 mg tablet 10 mg PO BID 05/06/19 08/01/19 isosorbide mononitrate 120 mg 240 mg PO DAILY #180 tab 05/06/19 08/01/19 tablet,extended release 24 hr metformin 1,000 mg tablet 1,000 mg PO BID #90 tab-cap 05/06/19 08/01/19 dulaglutide 0.75 mg/0.5 mL 0.75 mg SC QWEEK #6 ml 05/21/19 08/01/19 subcutaneous pen injector acetaminophen 325 mg tablet 650 mg PO Q6H PRN tab-cap 06/27/19 08/01/19 lisinopril 20 mg tablet 10 mg PO DAILY tab 06/27/19 08/01/19 metoprolol succinate 50 mg 50 mg PO DAILY #90 tab 06/27/19 08/01/19 tablet,extended release 24 hr nitroglycerin 0.4 mg sublingual 0.4 mg SUBLINGUAL ONCE #30 tab-cap 06/27/19 08/01/19 tablet pantoprazole 40 mg tablet,delayed 40 mg PO BID #60 tab 07/05/19 08/01/19 release bisacodyl 5 mg tablet,delayed 5 mg PO ONCE #4 tab 07/22/19 08/01/19 release polyethylene glycol 3350 17 gram 255 g PO DAILY #15 each 07/22/19 08/01/19 oral powder packet Previous Rx's Medication Instructions Recorded isosorbide mononitrate 120 mg 240 mg PO DAILY #180 tab 05/06/19 tablet,extended release 24 hr metformin 1,000 mg tablet 1,000 mg PO BID #90 tab-cap 05/06/19 dulaglutide 0.75 mg/0.5 mL 0.75 mg SC QWEEK #6 ml 05/21/19 subcutaneous pen injector metoprolol succinate 50 mg 50 mg PO DAILY #90 tab 06/27/19 tablet,extended release 24 hr nitroglycerin 0.4 mg sublingual 0.4 mg SUBLINGUAL ONCE #30 tab-cap 06/27/19 tablet pantoprazole 40 mg tablet,delayed 40 mg PO BID #60 tab 07/05/19 release bisacodyl 5 mg tablet,delayed 5 mg PO ONCE #4 tab 07/22/19 release polyethylene glycol 3350 17 gram 255 g PO DAILY #15 each 07/22/19 oral powder packet Allergies Allergy/AdvReac Type Severity Reaction Status Date / Time venlafaxine AdvReac Severe Nausea Unverified 08/01/19 12:35 doxycycline AdvReac Intermediate Cold Unverified 08/01/19 12:35 Chills, made him sick. liraglutide [From Victoza] AdvReac Intermediate GI upset Verified 08/01/19 12:35 General Stated Complaint: Chest Pain DIANE: 1 Review of Systems Unobtainable due to mental status [facility] Medical History Acute nontraumatic kidney injury Barretts esophagus (Inactive) Blind left eye (Inactive) Blindness, one eye (Inactive) RIGHT EYE CAD S/P percutaneous coronary angioplasty (Acute 08/28/17) Cervical disc disease (Resolved) Chronic kidney disease, stage 3 (Acute) Chronic left-sided low back pain with left-sided sciatica (Inactive 12/03/15) Chronic neck pain (Resolved) Chronic obstructive lung disease (Inactive) Chronic pain syndrome (Inactive 09/30/16) 08/19/16-CONTROLLED SUBSTANCE AGREEMENT-APPROVED FOR 3 MONTHS Depression with anxiety GERD (gastroesophageal reflux disease) (Resolved) History of Diaz's esophagus (Resolved) History of dysphagia (Acute) HTN (hypertension) (Acute) Hyperlipidemia CARLOTA (obstructive sleep apnea) Parastomal hernia PUD (peptic ulcer disease) (Resolved) Smoker (Inactive) Spondylosis of cervical region without myelopathy or radiculopathy (Inactive 04/17/15) Thoracic spine pain (Inactive 07/17/15) Tubular adenoma of colon (Inactive 02/18/14) Type 2 diabetes mellitus without complication (Inactive 01/02/15) Surgical History Colonoscopy - MAC 02/18/14 EGD - MAC (08/23/16) 02/2014 History of incisional hernia repair (Acute) with mesh left shoulder repair Luisana Fundoplication Open Carpal Tunnel release right right ulnar graft Vasectomy Family History Father , age 74 Diabetes Alcohol abuse sober in later years Essential hypertension Hyperlipidemia Cancer Mother , age 72 Diabetes Essential hypertension Heart disease Hyperlipidemia Mental disorder pt thinks she has bipolar Depression Brother Hyperlipidemia Depression Diabetes Heart disease Hypertension Sister Alcohol abuse Depression Stroke Substance abuse Sister Depression Heart disease Hypertension Brother Hyperlipidemia Hypertension Brother , age 29 Alcohol abuse Depression Substance abuse Social History Smoking/Tobacco Use Status: Current every day Tobacco Type: cigarettes Smoking packs per day: 2 Smoking cigarettes per day: 40.0 Years smoked: 40 Smoking pack- years: 80.00 Tobacco: How many years used: 40 Quit status: considering quitting Second Hand Exposure: Yes Counseling given: patient declined Alcohol Intake: current Alcohol Intake frequency: 0-2 drinks per day Alcohol type: hard liquor Drug use: Never Substance use type: does not use Caregiver/Support person: No Household members: spouse Housing: house Do you need help understanding health information?: Rarely Pets and animals: Yes Pets and animals: dog(s) Sexually active: Yes Do you think of yourself as: straight/heterosexual Current gender identity: male What is your relationship status?: How often do you talk on the phone with friends or family?: once per week How often do you get together with friends or relatives?: once per week How often do you attend taoism or scientologist services?: decline to answer Do you belong to any clubs or organized social groups?: no Panel score (0-1 are the most socially isolated patients): 1 What type of physical activity do you participate in: other Details: work Duration: decline to answer Frequency: decline to answer Mayela/Shinto: No preference Special mayela needs: No Seatbelt use: always Helmet use: Yes Helmet use: always Drive intox or ride w/intox bulk delivery driver: No Do you feel safe at home: Yes Do you feel safe in your relationship?: Yes Exam Narrative Exam Narrative: GEN: Somnolent, will respond to voice, pale and cool HEAD: Normocephalic, atraumatic ENT: Mucous membranes moist, oropharynx unremarkable, External ear exam unremarkable EYES: PERRL, EOMI NECK: Full ROM, no ANDREW, no menigismus CHEST/RESP: Nontender, rales at bases CARDIOVASCULAR: Distant and bradycardic, no murmur, rub michelle. Palpable radial pulse bilaterally ABDOMEN: Soft, nontender, no mass. +Bowel sounds EXT: Full ROM, no edema, no rash Neuro: Patient is somnolent but will respond to voice Course Vital Signs Vital signs: Vital Signs Pulse 57 L 08/06/19 00:10 Respiratory Rate 14 08/06/19 00:10 Blood Pressure 131/106 H 08/06/19 00:10 Pulse Oximetry 92 L 08/06/19 00:10 Pulse 57 L 08/06/19 00:10 Respiratory Rate 14 08/06/19 00:10 Blood Pressure 131/106 H 08/06/19 00:10 Pulse Oximetry 92 L 08/06/19 00:10 Oxygen Delivery Method Room Air 08/06/19 00:10 Oxygen Flow Rate 0 08/06/19 00:10 Critical Care Time Critical Care Time Critical Care Time: Yes Total Critical Care Time: 35 Attestation: Bedside care of the patient, discussion with consultants and family, reevaluation, management of critical care medications.
--- NOTE | 2019-08-06 00:20 | DI.RAD_ITS ---
EXAM: XR PORTABLE CHEST AP INDICATION: CP. COMPARISON: CR XR CHEST 2V PA LATERAL from 11/19/2018 TECHNIQUE: 2D digital imaging was performed. FINDINGS: The right costophrenic angle is clipped from view. The lungs are not well inflated. The leads over lie the chest. The heart size is within normal limits for projection and degree of inspiration. The re is crowding of the pulmonary vasculature, likely secondary to poor inflation. No gross infiltrate or effusion is seen. Mild pulmonary edema cannot be excluded. There is no pneumothorax. IMPRESSION: Limited exam due to poor pulmonary inflation. No acute abnormality. DATA REPOSITORY: RADIATION DOSE DELIVERED:
[2019-08-06] MEDS: Ondansetron 4 MG/2 ML VIAL (00:25)
[2019-08-06 00:27] LABS: Abs Immature Grans 0.03 k/cumm (0.0-0.09); Absolute Basophil Count 0.04 k/cumm (0.0-0.2); Absolute Eosinophil Count 0.46 k/cumm (0.0-0.7); Absolute Lymphocyte Count 3.96 k/cumm (1.2-3.4); Absolute Monocyte Count 0.86 k/cumm (0.11-0.7); Absolute Neutrophil Count 7.15 k/cumm (1.2-6.7); Basophils % 0.3; Eosinophils % 3.7; HCT 40.5 % (40.0-50.0); HGB 14.2 g/dL (13.5-17.5); Immature Grans % 0.2 %; Lymphocytes % 31.7; Mean Corp. HGB Concentration 35.1 g/dL (32.0-36.0); Mean Corpuscular Hemoglobin 31.8 pg (27.0-33.0); Mean Corpuscular Volume 90.8 fL (80-95); Mean Platelet Volume 9.4 fL (8.0-11.0); Monocytes % 6.9; Neutrophils % 57.2; Platelet Count 274 x1000/uL (130-400); RBC 4.46 m/cumm (4.50-6.00); RBC Distribution Width 13.5 % (11.8-14.1)
[2019-08-06] MEDS: Tenecteplase 50 MG KIT IVP (00:28)
[2019-08-06] MEDS: fentaNYL 100 MCG/2 ML VIAL 12.5 MCG IVP (00:29)
--- NOTE | 2019-08-06 00:29 | DI.VRAD_ITS ---
PROCEDURE INFORMATION: Exam: XR Chest, 1 View Exam date and time: 08/06/2019 12:18 AM Age: 53 years old Clinical indication: Chest pain; Type not specified TECHNIQUE: Imaging protocol: XR of the chest Views: 1 view. COMPARISON: CR XR CHEST 2V PA LATERAL 11/19/2018 11:16 AM FINDINGS: Lungs: The low lung volumes. Prominent, indistinct pulmonary vasculature. No focal consolidation. Pleural space: Unremarkable. No pleural effusion. No pneumothorax. Heart/Mediastinum: Borderline enlarged cardiomediastinal silhouette is likely accentuated by low lung volumes. Bones/joints: Unremarkable. IMPRESSION: Prominent, indistinct pulmonary vasculature likely represents pulmonary edema or atypical/viral infection. Dictated and Authenticated by: Chau Evangelista MD. Ordering:ZHANG Haynes MD
[2019-08-06] MEDS: Heparin 5,000 UNITS/ML VIAL 7200 UNITS IV (00:35)
[2019-08-06 00:43] LABS: PTT Activated 23.1 sec (21.0-31.4)
[2019-08-06 00:44] LABS: ALT 61 U/L (16-63); AST 61 U/L (15-37); Albumin 2.9 g/dL (3.4-5.0); Alkaline Phosphatase 82 U/L (46-116); Anion Gap 9.3 mmol/L (3-11); BUN 13 mg/dL (7-18); Bilirubin, Total 0.5 mg/dL (0.2-1.0); CO2 22.7 mmol/L (21.0-32.0); CREATININE 1.64 mg/dL (0.70-1.30); Calcium 7.9 mg/dL (8.5-10.1); Chloride 104 mmol/L (98-107); Estimated GFR 44.34 (mL/min/1.73m2); Glucose 221 mg/dL (74-106); Magnesium 1.6 mg/dL (1.8-2.4); Potassium 3.8 mmol/L (3.5-5.1); Sodium 136 mmol/L (136-145); Total Protein 5.8 g/dL (6.4-8.2)
[2019-08-06] MEDS: Clopidogrel 300 MG TAB PO (00:45)
[2019-08-06 00:46] LABS: Troponin I 0.16 ng/Ml (<0.06)
[2019-08-06] MEDS: Aspirin 81 MG CHEW 324 MG CH (00:46)
--- NOTE | 2019-08-06 01:17 | NUR.NOTE ---
Pt arrives via [facility] from home wiht c/o CP. Per EMS pt had been c/o CP this evening, gave him nitro x 3. Pt was diaphoretic, syncopized x2. Arrives with #18 JOSE G AC. Pt was hypotensive and bradycardic for EMS. Given 2.5 versed IV, 50mcg fentanyl IV. Arrives with pacer pads at rate of 70. Edita chávez, diaphoretic on arrival. 0009 1L NS up wide open. 0015 dopamine up at 2mcg/kg, pacing rate 70 at 70 milliamps 0020 Dopamine increased to 5mcg/kg, FSBS 193 0021 Dopamine up to 7.5mcg/kg 0025 vomited, 4mg zofran IV 0028 TNK 50mg 0029 Fentanyl 12.5mcg 0033 Epi drip started at 1mcg/min, dopamine decreased to 7mcg/kg 0035 #18 to JOSE G hands, placed by in RH, Amada in LH 0035 Heparin Bolus 7200 units, drip started at 1000units/hr 0036 Dopamine decreased to 5mcg/kg 0039 Dopamine decreased to 2.5mcg/kg, EKG #2 done, pt reports pain 09/19 0045 Dopamine stopped, Plavix 300mg, ASA 324mg PO given. SR with PVC's. 0050 To EMS stretcher 0055 Departed ED. Belongings with . Per , pt had covid test done 08/04/2019 to prep for upper and lower GI scope on 08/06. Report to Candace at [facility]
== END 2019-08-06 00:55 | disposition short-term general hospital (02) ==
PROVIDERS: Emergency Provider Emergency Medicine; PCP Family Medicine
DX: I21.3 ST elevation (STEMI) myocardial infarction of unspecified site (principal); R55 Syncope and collapse; R00.1 Bradycardia, unspecified; I95.9 Hypotension, unspecified; I12.9 Hypertensive chronic kidney disease with stage 1 through stage 4 chronic kidney disease, or unspecified chronic kidney disease; N18.3 Chronic kidney disease, stage 3 (moderate); I25.10 Atherosclerotic heart disease of native coronary artery without angina pectoris; E11.22 Type 2 diabetes mellitus with diabetic chronic kidney disease; Z79.84 Long term (current) use of oral hypoglycemic drugs; F17.210 Nicotine dependence, cigarettes, uncomplicated
CPT/HCPCS: 36415; 80053; 93005; 96365; 96375; 96376; 99291; 71045; 83735; 84484; 85025; 85730; 93010; J1644; J2405; J3010; J3101

== ENCOUNTER → 2019-08-19 14:29 | Outpatient (BNVA) | payer MEDICARE, OTHER, SELFPAY | PROVIDERS: PCP Family Medicine; Referring Provider Family Medicine; Visit Provider Internal Medicine Cardiovascular Disease | DX: I25.10 Atherosclerotic heart disease of native coronary artery without angina pectoris (principal); Z98.61 Coronary angioplasty status; I10 Essential (primary) hypertension; I21.3 ST elevation (STEMI) myocardial infarction of unspecified site; F17.210 Nicotine dependence, cigarettes, uncomplicated; E11.9 Type 2 diabetes mellitus without complications; Z79.84 Long term (current) use of oral hypoglycemic drugs | CPT/HCPCS: 99214 ==

== ENCOUNTER → 2019-09-05 15:59 | Outpatient (BNVA) | payer MEDICARE, OTHER, SELFPAY | PROVIDERS: PCP Family Medicine; Referring Provider Family Medicine; Visit Provider Internal Medicine Cardiovascular Disease | DX: K21.9 Gastro-esophageal reflux disease without esophagitis; I25.10 Atherosclerotic heart disease of native coronary artery without angina pectoris; Z98.61 Coronary angioplasty status; I12.9 Hypertensive chronic kidney disease with stage 1 through stage 4 chronic kidney disease, or unspecified chronic kidney disease; N18.3 Chronic kidney disease, stage 3 (moderate); E11.22 Type 2 diabetes mellitus with diabetic chronic kidney disease | CPT/HCPCS: 99214 ==

== ENCOUNTER → 2019-11-19 09:47 | Outpatient (BNVA) | payer MEDICARE, OTHER, SELFPAY | PROVIDERS: PCP Family Medicine; Referring Provider Family Medicine; Visit Provider Internal Medicine Cardiovascular Disease | DX: I25.10 Atherosclerotic heart disease of native coronary artery without angina pectoris (principal); I12.9 Hypertensive chronic kidney disease with stage 1 through stage 4 chronic kidney disease, or unspecified chronic kidney disease; N18.9 Chronic kidney disease, unspecified; Z98.61 Coronary angioplasty status; E11.22 Type 2 diabetes mellitus with diabetic chronic kidney disease; F17.210 Nicotine dependence, cigarettes, uncomplicated | CPT/HCPCS: 99443; 99213 ==

== ENCOUNTER → 2020-04-07 09:15 | Outpatient (BNVA) | payer MEDICARE, OTHER, SELFPAY | PROVIDERS: PCP Family Medicine; Referring Provider Family Medicine; Visit Provider Surgery | DX: R14.0 Abdominal distension (gaseous) (principal); E11.9 Type 2 diabetes mellitus without complications; G47.33 Obstructive sleep apnea (adult) (pediatric); K21.9 Gastro-esophageal reflux disease without esophagitis; K22.70 Barrett's esophagus without dysplasia; R10.84 Generalized abdominal pain | CPT/HCPCS: 99214; 99215 ==

== ENCOUNTER 2020-04-09 02:32 | Outpatient (CLI) | payer MEDICARE, OTHER, SELFPAY ==
[2020-04-10 13:39] LABS: COVID-19 RT-PCR UVMMC Result Negative (Negative)
== END 2020-04-09 02:52 ==
PROVIDERS: PCP Family Medicine; Visit Provider Surgery
DX: Z11.52 Encounter for screening for COVID-19 (principal); Z01.818 Encounter for other preprocedural examination
CPT/HCPCS: U0003

== ENCOUNTER 2020-04-13 10:58 | Day surgery (SDC) | payer MEDICARE, OTHER, SELFPAY ==
--- NOTE | 2020-04-13 06:59 | W.PM.ENDDOP ---
Date of service: 04/13/20 Time of Service: 13:15 Endoscopy Report DATE OF PROCEDURE: 04/13/20 PRE-OP DIAGNOSIS: Abdominal pain, Hx of Diaz's, Hx of polyps POST-OP DIAGNOSIS: same PROCEDURE: 1. EGD with biopsies 2. Colonoscopy with polypectomy SURGEON: Vonda Calderon ANESTHESIA: other (General/ASA 3/[employer] [facility] [employer] and Yolanda Murry CRNA) ESTIMATED BLOOD LOSS: 5 PATHOLOGY: other (GE junction bx, Cecal polyp, ascending polyp x2, Transverse polyp x4, Descending polyps x2, sigmoid colon x6 and rectal polyps x11) COMPLICATIONS: None DISPOSITION: same day INDICATIONS: 53 year old male with a complex history who over the last 5 years has developed increased abdominal pain, bloating and acid reflux. He is status post a Luisana funduplication over [address] scan done in June of 2019 showed a small hiatal hernia. There was no recurrence of his incisional hernia. There was no dilatation of his small bowel. Gallbladder looked normal on CT scan. He had an NSTEMI in July of last year. He had drug eluding stents placed. He is now >6 months out and it should be safe to take him of prasurgel. The differential diagnoses includes gastroparesis, PUD, abdominal scar tissue, Gallbladder diskinesia. Recommend starting with EGD and Colonoscopy as well as a Gastric emptying study. More recommendations will follow these results. I did speak to Dr. Briones who said it was safe to take him of prasugrel for 5 days before. I will keep him on the aspirin. We discussed the Colonoscopy and EGD procedure as well as the prep. We discussed COVID testing and quarantine requirements Risks, benefits and complications have been reviewed. Complications include but are not limited to bleeding, pain, perforation, missed small lesion/polyp, sore throat, aspiration and adverse reaction to the medications. Questions were entertained and answered to their satisfaction and they wished to proceed. No guarantees were given or implied. Risks, benefits and complications have been reviewed. Complications include but are not limited to bleeding, pain, perforation, sore throat, aspiration, and adverse reaction to the medications. Questions were entertained and answered to their satisfaction and they wished to proceed. No guarantees were given or implied. COVID-19 testing explained to the patient. Reason for test reviewed. Quarantine per state requirements reviewed with patient. Patient understands and agrees to testing. Proceed with Colonoscopy and EGD under sedation I will also order a Gastric emptying study. PREP: Miralax/Dulcolax PROCEDURE START TIME: 13:15 PROCEDURE END TIME: 14:24 COLONOSCOPY RETRACTION TIME: 50 minutes FINDINGS: GE junction with mild inflammation and Diaz's Large bowel with 26 polyps PROCEDURE DESCRIPTION: After informed consent was obtained the patient was take to the procedure room and placed in a supine position. Monitors were applied and a time out was done. The patients name, date of , procedure type, allergies to medications and metal in their body was reviewed. A bite block was placed and the patient was sedated. Once sedated and comfortable the gastroscope was advanced through the oropharynx which was grossly normal into the esophagus. The proximal and mid-esophagus were normal. In the distal esophagus there was mild inflammation noted. The scope was advanced into the stomach and through the pylorus into the 3rd portion of the duodenum. The duodenum was noted to be normal. The scope was retracted back into the stomach. There was no inflammation and no polyps or ulcers in the stomach. The scope was retro-flexed. The cardia and fundus were noted to be normal. There was a small hiatal hernia noted. The scope was retracted back into the esophagus and biopsies were done of the GE junction for surveillance of his Diaz's. The Z line was regular. The GE junction was at 40 cm. While the patient was still sedated they were placed in a left decubitous position. A rectal exam was done. External exam was normal. Internal exam revealed a normal sphincter tone and no palpable masses. The prostate felt smooth and slightly enlarged. The scope was then introduced and retro-flexed. No internal hemorrhoids were identified. The scope was then advanced to the cecum without difficulty. The ileocecal valve and appendiceal orifice were identified. The prep was good. The scope was then slowly retracted over 50 minutes back into the rectum. Polyps were removed with cold forceps in the cecum x1, ascending colon x2, Transverse colon x4, descending colon x1, sigmoid colon x6 and rectum x11. There was one large polyp in the descending colon that was removed with a hot snare. Just distal to the polyp there was an area of inflammation. I couldn't tell wether their was a polyp or not. The area was tattoed. The scope was removed and the patient was woken up and taken back to Same day surgery in stable condition. The patient tolerated the procedure well and there were no immediate complications. Follow up: Will depend on the final pathology results.
--- NOTE | 2020-04-13 07:01 | W.PM.DSUDISC ---
Discharge Plan Disposition Patient Disposition: HOME Condition: Good Discharge Details Reason For Visit: Abdominal pain, Hx of Diaz's and Hx of polyps Attending Provider: Vonda Calderon Primary Care Provider: Sae Marr Home Meds and New Rx's Prescriptions: Continued isosorbide mononitrate 60 mg tablet extended release 24 hr 60 mg PO DAILY Qty: 90 RF: 6 prasugrel 10 mg tablet 10 mg PO DAILY Qty: 90 RF: 3 pioglitazone [Actos] 15 mg tablet 15 mg PO DAILY Qty: 60 RF: 0 nitroglycerin 0.4 mg tablet, sublingual 0.4 mg Sublingual ONCE Qty: 30 RF: 3 atorvastatin 80 mg tablet 80 mg PO QHS Qty: 30 RF: 11 folic acid 1 mg tablet 1 mg PO DAILY RF: 0 vitamin B complex [B Complex-Vitamin B12] Tablet 1 tab PO DAILY RF: 0 aspirin [Aspir-81] 81 MG tablet,delayed release (DR/EC) 81 mg PO DAILY RF: 0 acetaminophen 325 mg tablet 650 mg PO Q6H PRN RF: 0 metformin 1,000 mg tablet 1,000 mg PO BID Qty: 90 RF: 3 metoprolol succinate 50 mg tablet extended release 24 hr 100 mg PO DAILY Qty: 180 RF: 3 pantoprazole 40 mg tablet,delayed release (DR/EC) 40 mg PO BID Qty: 60 RF: 1 glipizide 10 mg tablet 10 mg PO BID Qty: 90 RF: 3 Discontinued bisacodyl [Dulcolax (bisacodyl)] 5 mg tablet,delayed release (DR/EC) 5 mg PO ONCE Qty: 4 RF: 0 polyethylene glycol 3350 17 gram powder in packet 255 g PO DAILY Qty: 15 RF: 0 Discharge Instructions Additional Instructions: Findings: 1. Inflammation in the distal esophagus 2. 26 Polyps in the large intestine Follow up: Depends on the final pathology results. I will call you with the pathology results as well as the XRay studies Please call if you develop: fevers >101.5 Nausea or Vomiting Abdominal pain that is not transient DAY SURGERY UNIT POST ENDOSCOPY INSTRUCTIONS 1. Because there will be medication in your system for the next 24 hours, you may feel a little sleepy. Your coordination will be affected. Therefore: a. Do not drive or operate dangerous equipment for 24 hours. b. Do not drink alcohol beverages for 24 hours (not even beer). c. Plan to go home and rest for the day. 2. Generally there are no restrictions on your activity after a day or so has gone by, but you may feel a bit fatigued for a few days. 3 After you arrive home you may have a light meal and return to a normal diet as you can tolerate it without feeling sick to your stomach. 4. After surgery, you may feel pain or discomfort. This should be only transient, but if it persists please contact your doctor. 5. If there are any questions regarding the findings of your procedure, please feel free to contact your doctor. 6. If you are unable to contact your doctor with a problem, contact the hospital at [phone]. 7. Continue all your regular medications unless directed otherwise. I understand the above instructions and have no questions. Signature of Patient or Responsible Adult Escort Date/Time Name of Responsible Adult Escort Signature of Nurse Date/Time Activity:: Activity as Tolerated Diet:: I would try small meals 5-6 times a day Discharge Orders Discharge Orders: Discharge Order (Routine); Ordered 04/13/20 Ordered By: Vonda Calderon
[2020-04-13 11:20] VITALS: BP 133/91; PULSE 90; RESP 18; TEMP 36.6; O2SAT 95
[2020-04-13] MEDS: Lactated Ringers 1,000 ML 80 ML IV (11:42)
--- NOTE | 2020-04-13 13:17 | BOWEL_PTH ---
PATIENT: Samy Patricio JR LOC: [facility] U#:[id number] AGE/SX: 54/M ROOM: RE04/13/[address]: Vonda Calderon MD : [id number] BED: DIS: 04/13/2020 SPEC #: [id number] RECD: 04/13/20 17:53 STATUS: LUWDIG RE #: [id number] LUIS: 04/13/20 13:[address]: Vonda Calderon DEPT: Surgical Specimen RECD BY: Nga Herrera ENTERED: 04/13/20 17:56 SP TYPE: Bowel OTHR DR: Sae Marr MD Tissues: 1 - ESOPHAGUS BIOPSY 2 - BIOPSY BOWEL 3 - BIOPSY BOWEL 4 - BIOPSY BOWEL 5 - BIOPSY BOWEL 6 - BIOPSY BOWEL 7 - BIOPSY BOWEL Procedures: GROSS AND MICRO LEVEL 4 Comments: [id number]
[2020-04-13] MEDS: Endoscopic Tattoo 5 ML SYR IJ (14:08)
[2020-04-13 15:00] VITALS: BP 136/84; PULSE 82; RESP 18; TEMP 36.5; O2SAT 92
== END 2020-04-13 15:30 | disposition home or self-care (01) ==
LOC: SUR 10:59
PROVIDERS: PCP Family Medicine; Visit Provider Surgery
PROC: (CPT 45385; principal; 2020-04-13 13:30)
DX: R10.9 Unspecified abdominal pain (principal); Z87.19 Personal history of other diseases of the digestive system; Z86.010 Personal history of colon polyps; K22.10 Ulcer of esophagus without bleeding; K21.00 Gastro-esophageal reflux disease with esophagitis, without bleeding; K62.1 Rectal polyp; D12.0 Benign neoplasm of cecum; D12.2 Benign neoplasm of ascending colon; D12.3 Benign neoplasm of transverse colon; K63.5 Polyp of colon; K44.9 Diaphragmatic hernia without obstruction or gangrene; J44.9 Chronic obstructive pulmonary disease, unspecified; G47.33 Obstructive sleep apnea (adult) (pediatric); F17.210 Nicotine dependence, cigarettes, uncomplicated; E11.43 Type 2 diabetes mellitus with diabetic autonomic (poly)neuropathy
CPT/HCPCS: 45385; 45380; 45381; 43239; 88305

== ENCOUNTER 2020-04-15 02:38 | Outpatient (CLI) | payer MEDICARE, OTHER, SELFPAY ==
--- NOTE | 2020-04-15 06:30 | DI.NM_ITS ---
CLINICAL HISTORY: abd pain, bloating, uncontrolled DM,R10.84,R14.0,E11.9. COMPARISON: NM GASTRIC EMPTYING from 07/31/2012 EXAMINATION: PO Dose: 1 mCi Sulfur colloid in test meal. Images: According to protocol. FINDINGS: Patient gastric emptying results: 1 hour: Unable to obtain due to configuration of the bowel. 2 hour: 71.6%. ([facility] normal gastric range: 30-60% residual.) 4 hour: 0.9%. ([facility] normal gastric range: 0-10% residual.) T 1/2: 125 minutes. IMPRESSION: 1. There is delayed gastric emptying at the 2 hour time. However gastric emptying is within normal l imits at 4 hours. 2. Prolonged T 1/2. [facility] guidelines: 40% or more gastric emptying at 90 minutes is considered normal. Normal T 1/2 < 50 mi nutes. < 30% at 1 hour signifies abnormal rapid gastric emptying.
== END 2020-04-15 02:39 | disposition home or self-care (01) ==
LOC: DI 02:39
PROVIDERS: PCP Family Medicine; Visit Provider Surgery
DX: K30 Functional dyspepsia (principal); E11.9 Type 2 diabetes mellitus without complications; R10.84 Generalized abdominal pain; R14.0 Abdominal distension (gaseous)
CPT/HCPCS: 78265

== ENCOUNTER 2020-05-13 01:35 | Outpatient (CLI) | payer MEDICARE, OTHER, SELFPAY ==
--- NOTE | 2020-05-13 06:45 | DI.NM_ITS ---
EXAM: NM HEPATOBILIARY CCK GRP CLINICAL HISTORY: severe pain and bloating after eating. Normal EGD,R10.84. TECHNIQUE: Injected dose: 4.9 mCi Tc-99 mebrofenin Initial dynamic images: 60 minutes Post-Gallbladder fillin mcg CCK intravenously over a 15min infusion. Addition images: Obtained according to protocol. COMPARISON: No previous for comparison. FINDINGS: Normal hepatic transit time. Prompt excretion into the small bowel. Prompt excretion into the gallbladder. The patient's gallbladder ejection fraction was calculated at 70 8 percent. (Normal ejection fraction is greater than 40 percent.). IMPRESSION: 1. Normal CCK HIDA scan. [facility] guidelines: Gallbladder visualization should be present by 3 hours. Delayed uiaeafe-wp-wiixq borden sit beyond 60 min raises the suspicion for partial common bile duct (CBD) obstruction. Gallbladder ejection fraction <35% has a good correlation with acalculous disease (i.e., chronic acal culous cholecystitis, cystic duct syndrome, sphincter of Oddi disease).
[2020-05-13 08:39] LABS: Anion Gap 5.6 mmol/L (3-11); BUN 14 mg/dL (7-18); CO2 31.4 mmol/L (21.0-32.0); CREATININE 1.4 mg/dL (0.70-1.30); Calcium 8.9 mg/dL (8.5-10.1); Chloride 101 mmol/L (98-107); Estimated GFR 53.01 (mL/min/1.73m2); Glucose 294 mg/dL (74-106); Potassium 4.3 mmol/L (3.5-5.1); Sodium 138 mmol/L (136-145)
[2020-05-18 14:37] LABS: IgA 214 mg/dL (85-499); Interpretation (See Note); Tissue Transglutaminase IgA <1.2 U/mL (<4.0)
== END 2020-05-13 01:36 | disposition home or self-care (01) ==
PROVIDERS: PCP Family Medicine; Visit Provider Surgery
DX: R10.84 Generalized abdominal pain (principal); I10 Essential (primary) hypertension; I25.2 Old myocardial infarction
CPT/HCPCS: 36415; 78227; 80048; 82784; 83516

== ENCOUNTER → 2020-05-14 13:21 | Outpatient (BNVA) | payer MEDICARE, OTHER, SELFPAY | PROVIDERS: PCP Nurse Practitioner Family; Referring Provider Family Medicine; Visit Provider Internal Medicine Cardiovascular Disease | DX: I25.10 Atherosclerotic heart disease of native coronary artery without angina pectoris (principal); I12.9 Hypertensive chronic kidney disease with stage 1 through stage 4 chronic kidney disease, or unspecified chronic kidney disease; N18.9 Chronic kidney disease, unspecified; G47.33 Obstructive sleep apnea (adult) (pediatric); F17.210 Nicotine dependence, cigarettes, uncomplicated; Z98.61 Coronary angioplasty status | CPT/HCPCS: 99214 ==

== ENCOUNTER 2020-07-03 02:54 | Outpatient (CLI) | payer MEDICARE, OTHER, SELFPAY ==
[2020-07-03 08:47] LABS: Calculated LDL 41 mg/dL (<100); Cholesterol 119 mg/dL (<200); HDL Cholesterol 36 mg/dL (40-60); Triglyceride 214 mg/dL (<150)
[2020-07-03 17:23] LABS: PSA, Screening 0.4 ng/mL (0.0-3.5)
== END 2020-07-03 02:55 | disposition home or self-care (01) ==
LOC: LBO 02:54
PROVIDERS: PCP Nurse Practitioner Family; Visit Provider Nurse Practitioner Family
DX: E11.9 Type 2 diabetes mellitus without complications (principal); Z12.5 Encounter for screening for malignant neoplasm of prostate
CPT/HCPCS: 36415; 80061; 84153

== ENCOUNTER → 2020-08-13 09:20 | Outpatient (BNVA) | payer MEDICARE, OTHER, SELFPAY | PROVIDERS: PCP Nurse Practitioner Family; Referring Provider Nurse Practitioner Family; Visit Provider Internal Medicine Cardiovascular Disease | DX: I25.10 Atherosclerotic heart disease of native coronary artery without angina pectoris (principal); N18.30 Chronic kidney disease, stage 3 unspecified; G47.33 Obstructive sleep apnea (adult) (pediatric); Z98.61 Coronary angioplasty status; I12.9 Hypertensive chronic kidney disease with stage 1 through stage 4 chronic kidney disease, or unspecified chronic kidney disease; F17.210 Nicotine dependence, cigarettes, uncomplicated | CPT/HCPCS: 99214 ==

== ENCOUNTER → 2020-09-11 08:33 | Outpatient (BNVA) | payer MEDICARE, OTHER, SELFPAY | PROVIDERS: PCP Nurse Practitioner Family; Referring Provider Nurse Practitioner Family; Visit Provider Internal Medicine Cardiovascular Disease | DX: I25.10 Atherosclerotic heart disease of native coronary artery without angina pectoris (principal); E78.5 Hyperlipidemia, unspecified; I12.9 Hypertensive chronic kidney disease with stage 1 through stage 4 chronic kidney disease, or unspecified chronic kidney disease; Z98.61 Coronary angioplasty status; F17.210 Nicotine dependence, cigarettes, uncomplicated; N18.9 Chronic kidney disease, unspecified; Z79.899 Other long term (current) drug therapy | CPT/HCPCS: 99214 ==

== ENCOUNTER → 2020-12-10 09:34 | Outpatient (BNVA) | payer MEDICARE, OTHER, SELFPAY | PROVIDERS: PCP Nurse Practitioner Family; Referring Provider Nurse Practitioner Family; Visit Provider Internal Medicine Cardiovascular Disease | DX: I25.10 Atherosclerotic heart disease of native coronary artery without angina pectoris (principal); Z98.61 Coronary angioplasty status; R07.9 Chest pain, unspecified; E78.5 Hyperlipidemia, unspecified; I10 Essential (primary) hypertension; F17.210 Nicotine dependence, cigarettes, uncomplicated | CPT/HCPCS: 99214 ==

== ENCOUNTER → 2021-01-07 10:40 | Outpatient (BNVA) | payer MEDICARE, OTHER, SELFPAY | PROVIDERS: PCP Nurse Practitioner Family; Referring Provider Nurse Practitioner Family; Visit Provider Nurse Practitioner Gerontology | DX: N40.1 Benign prostatic hyperplasia with lower urinary tract symptoms (principal); N52.9 Male erectile dysfunction, unspecified; E11.42 Type 2 diabetes mellitus with diabetic polyneuropathy; E11.22 Type 2 diabetes mellitus with diabetic chronic kidney disease; N18.9 Chronic kidney disease, unspecified; I10 Essential (primary) hypertension | CPT/HCPCS: 99214 ==

== ENCOUNTER → 2021-06-03 10:20 | Outpatient (BNVA) | payer MEDICARE, OTHER, SELFPAY | PROVIDERS: PCP Nurse Practitioner Family; Referring Provider Nurse Practitioner Family; Visit Provider Internal Medicine Cardiovascular Disease | DX: I25.10 Atherosclerotic heart disease of native coronary artery without angina pectoris (principal); I10 Essential (primary) hypertension; R60.0 Localized edema; Z98.61 Coronary angioplasty status | CPT/HCPCS: 99214; 99213 ==

== ENCOUNTER 2021-06-04 03:50 | Outpatient (CLI) | payer MEDICARE, OTHER, SELFPAY ==
[2021-06-04 13:03] LABS: Hemoglobin A1C 8.1 % (<5.7)
[2021-06-04 14:13] LABS: ALT 55 U/L (16-63); AST 37 U/L (15-37); Albumin 3.5 g/dL (3.4-5.0); Alkaline Phosphatase 104 U/L (46-116); Anion Gap 7.7 mmol/L (3-11); BUN 15 mg/dL (7-18); Bilirubin, Total 0.6 mg/dL (0.2-1.0); CO2 29.3 mmol/L (21.0-32.0); CREATININE 1.2 mg/dL (0.70-1.30); Calcium 8.9 mg/dL (8.5-10.1); Chloride 102 mmol/L (98-107); Glucose 93 mg/dL (74-106); Potassium 3.8 mmol/L (3.5-5.1); Sodium 139 mmol/L (136-145); TSH 3.19 uIU/mL (0.36-3.74); Total Protein 6.7 g/dL (6.4-8.2)
== END 2021-06-04 03:51 | disposition home or self-care (01) ==
LOC: LBO 03:50
PROVIDERS: PCP Nurse Practitioner Family; Visit Provider Nurse Practitioner Family
DX: E11.9 Type 2 diabetes mellitus without complications (principal); E66.9 Obesity, unspecified; N18.9 Chronic kidney disease, unspecified
CPT/HCPCS: 36415; 80053; 83036; 84443

== ENCOUNTER → 2021-08-18 02:21 | Outpatient (CLI) | payer MEDICARE, OTHER, SELFPAY ==
--- NOTE | 2021-08-18 08:15 | DI.CT_ITS ---
Exam(s) CT CHEST WO EXAM: CT CHEST WO CLINICAL HISTORY: pulmonary edema, j81.1, ? ca. TECHNIQUE: Multi planar reconstructions were performed. CONTRAST MATERIAL: None COMPARISON: CR,XR XR PORTABLE CHEST AP from 08/06/2019 FINDINGS: CHEST: LUNGS: No infiltrates nor pleural effusions. No ominous pulmonary nodules. Lungs are clear. No sig nificant focal findings trachea and mainstem bronchi. There is no bronchiectasis. No ground-glass i nfiltrates. MEDIASTINUM: There is no obvious hilar nor mediastinal adenopathy. Visualized thyroid unremarkable.No obvious axillary adenopathy CARDIAC: Heart size is normal. There is no pericardial effusion.Caliber of the thoracic aorta is wit hin normal limits. VISUALIZED UPPER ABDOMEN:Moderate-sized hiatal hernia noted. Hepatomegaly and hepatic steatosis. No significant adrenal masses nor splenomegaly. OSSEOUS: No significant osseous lesions.No fractures.. IMPRESSION: 1. No significant focal pulmonary findings and no pleural effusions. 2. Normal heart size. No pericardial effusion. Caliber thoracic aorta. 3. Hepatic steatosis incidentally noted. RADIATION DOSE DELIVERED: 806.65mGy.cm Total DLP DATA REPOSITORY: All CT scans at this facility are submitted to the National Radiology Data Registry (NRDR) Dose Index Registry (DIR) with the [employer] (ACR). RADIATION OPTIMIZATION: All CT scans at this facility use at least one of these dose optimization te chniques: automated exposure control; mA and/or kV adjustment per patient size (includes targeted exa ms where dose is matched to clinical indication); or iterative reconstruction.
== END ==
PROVIDERS: PCP Nurse Practitioner Family; Visit Provider Nurse Practitioner Family
DX: J81.1 Chronic pulmonary edema (principal); K76.0 Fatty (change of) liver, not elsewhere classified
CPT/HCPCS: 36415; 71250; 80053; 80061; 85027; 83880

== ENCOUNTER 2021-08-18 03:59 | Outpatient (CLI) | payer MEDICARE, OTHER, SELFPAY ==
[2021-08-18 14:51] LABS: MCH 31.8 pg (27.0-33.0); MCHC 34.9 % (32.0-36.0); MCV 91 fL (80-95); MPV 9.4 fL (8.0-11.0); Platelet Count 218 10^3/uL (130-400); RBC 4.72 10^6/uL (4.36-5.78); RDW 12.5 % (11.8-14.1); RDW-SD 41.3 fL; WBC 9.21 10^3/uL (4.4-10.8)
[2021-08-18 15:32] LABS: ALT 45 U/L (16-63); AST 30 U/L (15-37); Albumin 3.5 g/dL (3.4-5.0); Alkaline Phosphatase 113 U/L (46-116); Anion Gap 9.5 mmol/L (3-11); BUN 18 mg/dL (7-18); Bilirubin, Total 0.6 mg/dL (0.2-1.0); CO2 32.5 mmol/L (21.0-32.0); CREATININE 1.4 mg/dL (0.70-1.30); Calcium 8.6 mg/dL (8.5-10.1); Calculated LDL 49 mg/dL (<100); Chloride 99 mmol/L (98-107); Cholesterol 123 mg/dL (<200); Estimated GFR 52.81 (mL/min/1.73m2); Glucose 193 mg/dL (74-106); HDL Cholesterol 35 mg/dL (40-60); Potassium 3.4 mmol/L (3.5-5.1); Sodium 141 mmol/L (136-145); Total Protein 7.2 g/dL (6.4-8.2); Triglyceride 199 mg/dL (<150)
[2021-08-18 15:58] LABS: NT-proBNP 70 pg/mL (<300)
== END 2021-08-18 04:00 | disposition home or self-care (01) ==
LOC: LBO 03:59
PROVIDERS: PCP Nurse Practitioner Family; Visit Provider Nurse Practitioner Family
DX: E11.9 Type 2 diabetes mellitus without complications (principal); N18.9 Chronic kidney disease, unspecified; R60.0 Localized edema; R53.83 Other fatigue; R06.89 Other abnormalities of breathing
CPT/HCPCS: 36415; 80053; 80061; 85027; 83880

== ENCOUNTER → 2021-10-06 08:14 | Outpatient (BNVA) | payer MEDICARE, OTHER, SELFPAY | PROVIDERS: PCP Nurse Practitioner Family; Referring Provider Nurse Practitioner Family; Visit Provider Psychiatry & Neurology Neurology | DX: I73.9 Peripheral vascular disease, unspecified (principal); E11.42 Type 2 diabetes mellitus with diabetic polyneuropathy; H53.8 Other visual disturbances; G47.10 Hypersomnia, unspecified; G47.33 Obstructive sleep apnea (adult) (pediatric); R41.3 Other amnesia | CPT/HCPCS: 99215; G2212 ==

== ENCOUNTER → 2021-10-28 02:19 | Outpatient (CLI) | payer MEDICARE, OTHER, SELFPAY ==
--- NOTE | 2021-10-28 06:30 | DI.MRI_ITS ---
Exam(s) MR LUMBAR SPINE WO EXAM: MR LUMBAR SPINE WO CLINICAL HISTORY: claudication with radicular sx bilaterally,LUMBAR BACK PAIN, M54.5,I73.9. TECHNIQUE: Multiplanar multisequence MRI of the Lumbar spine was performed. COMPARISON: MR MRI - LUMBAR SPINE WO CONTRAST from 12/15/2015 FINDINGS: Bones: The last intervertebral disc space is designated the L5/S1 level for the numbering purpose of this examination. The vertebral body heights are well maintained. Alignment is satisfactory. The ma rrow signal characteristics are unremarkable. Cord: The conus tip ends at the T12 level. It is of normal size and signal intensity. T12-L1: No disc herniations or bulges are present. No central spinal canal or neural foraminal stenos is. L1-2: No disc herniations or bulges are present. No central spinal canal or neural foraminal stenosis . L2-3: Broad-based disc bulging, eccentric toward the left causing left neural foraminal narrowing and mild right neural foraminal narrowing.. No central spinal canal stenosis. Findings stable from pr ior. L3-4: Mild disc bulging and small disc osteophytes. Mild facet degenerative changes and ligamentous h ypertrophy. Moderate right and mild left neural foraminal narrowing. No central canal stenosis. L4-5: Small central disc protrusion, new from prior.. Underlying mild degenerative disc changes with mild concentric bulging and small endplate osteophytes. Mild left neural foraminal narrowing. No cent ral spinal stenosis. L5-S1: No disc herniations or bulges are present. No central spinal canal or neural foraminal stenosi s. The visualized SI joints and sacrum are well maintained. Soft tissues: The paraspinal soft tissues are unremarkable. IMPRESSION: Degenerative disc changes from L2-3 through L4-5 causing neural foraminal narrowing. New small centra l disc protrusion at L4-5.. No evidence of significant spinal stenosis. DATA REPOSITORY:
== END ==
PROVIDERS: PCP Nurse Practitioner Family; Visit Provider Psychiatry & Neurology Neurology
DX: I73.9 Peripheral vascular disease, unspecified (principal); M47.816 Spondylosis without myelopathy or radiculopathy, lumbar region; M51.26 Other intervertebral disc displacement, lumbar region
CPT/HCPCS: 36415; 72148; 82607; 84165

== ENCOUNTER 2021-10-28 03:47 | Outpatient (CLI) | payer MEDICARE, OTHER, SELFPAY ==
[2021-10-28 10:09] LABS: Vitamin B12 410 pg/mL (193-986)
[2021-10-29 13:59] LABS: Albumin 55.4 % (55.8-66.1); Albumin g/dL 3.7 g/dL (3.6-5.2); Total Protein 6.6 g/dL (6.3-8.2)
== END 2021-10-28 03:48 | disposition home or self-care (01) ==
LOC: LBO 03:47
PROVIDERS: PCP Nurse Practitioner Family; Visit Provider Psychiatry & Neurology Neurology
DX: R41.3 Other amnesia (principal); G62.89 Other specified polyneuropathies
CPT/HCPCS: 36415; 82607; 84165

== ENCOUNTER → 2021-10-29 12:44 | Outpatient (BNVA) | payer MEDICARE, OTHER, SELFPAY | PROVIDERS: PCP Nurse Practitioner Family; Referring Provider Psychiatry & Neurology Neurology; Visit Provider Surgery | DX: I73.9 Peripheral vascular disease, unspecified (principal) | CPT/HCPCS: 93922 ==

== ENCOUNTER → 2021-11-05 10:22 | Outpatient (BNVA) | payer MEDICARE, OTHER, SELFPAY | PROVIDERS: PCP Nurse Practitioner Family; Referring Provider Nurse Practitioner Family; Visit Provider Internal Medicine Cardiovascular Disease | DX: R06.02 Shortness of breath (principal); E11.65 Type 2 diabetes mellitus with hyperglycemia; R63.5 Abnormal weight gain; R60.0 Localized edema; F17.210 Nicotine dependence, cigarettes, uncomplicated; Z95.5 Presence of coronary angioplasty implant and graft; G47.33 Obstructive sleep apnea (adult) (pediatric); I10 Essential (primary) hypertension; R07.9 Chest pain, unspecified; I25.10 Atherosclerotic heart disease of native coronary artery without angina pectoris; I73.9 Peripheral vascular disease, unspecified | CPT/HCPCS: 93005; 99214 ==

== ENCOUNTER → 2021-11-17 09:06 | Outpatient (BNVA) | payer MEDICARE, OTHER, SELFPAY | PROVIDERS: PCP Family Medicine; Referring Provider Nurse Practitioner Family; Visit Provider Psychiatry & Neurology Neurology | DX: I25.2 Old myocardial infarction (principal); Z95.5 Presence of coronary angioplasty implant and graft; E11.9 Type 2 diabetes mellitus without complications; Z79.4 Long term (current) use of insulin; I73.9 Peripheral vascular disease, unspecified; G47.33 Obstructive sleep apnea (adult) (pediatric); G47.10 Hypersomnia, unspecified; R41.3 Other amnesia | CPT/HCPCS: 99215 ==

== ENCOUNTER 2021-12-10 23:09 | Outpatient (REF) | payer MEDICARE, OTHER, SELFPAY ==
[2021-12-10 21:41] LABS: COMMENT (LAB VIEW ONLY) 96.96 mg/dL; Microalb ug/mg Crea 5.6 ug/mg Cr
== END 2021-12-10 23:10 | disposition home or self-care (01) ==
LOC: LBN 23:09
PROVIDERS: PCP Family Medicine; Visit Provider Family Medicine
DX: E11.9 Type 2 diabetes mellitus without complications (principal); R60.0 Localized edema
CPT/HCPCS: 82043; 82570

== ENCOUNTER → 2021-12-17 00:59 | Outpatient (CLI) | payer MEDICARE, OTHER, SELFPAY ==
--- OUTSIDE RECORDS SUMMARY | 2021-12-17 01:00 | XMS_ITS | Encounter Summary ---
:1965 Author Organization [facility] [place] [place] [address] Care Team Providers Name Role Phone Robinson Vazquez APRN Primary Care Provider Encounter Details Date Type Department Care Team Description 10/29/2021 Telephone Cardiology at [facility] Eileen Williamson, [place] [address] Social History Tobacco Use Types Packs/Day Years Used Date Current Every Day Smoker Cigarettes 2 Smokeless Tobacco: Never Used Alcohol Use Standard Drinks/Week Comments Yes 7 (1 standard drink = 0.6 oz pure alcoho l) Alcohol Habits Answer Date Recorded How often do you have a drink containing 4 or more times a w [place] 07/05/2018 alcohol? How many drinks containing alcohol do you have 10 or more 07/05/2018 on a typical day when you are drinking? How often do you have six or more drinks on one Daily or alfredito ost daily 07/05/2018 occasion? Comment: Not asked Sex Assigned at Date Recorded Not on file documented as of this encounter Miscellaneous Notes Telephone Encounter - Eileen Williamson RN - 10/29/2021 4:18 PM EDT RTC to Mrs Patricio who is asking if her 's cath report from 12/29/2020, has any report of abnormal heart muscle. Mrs Patricio states Mr Patricio will have an appointment in November with a new special events assistant in [facility]. Recommend to her several times, that Mr Sheng, and she speak with his new special events assistant regarding any and all cardiac testing for a review, interpretation, and treatment plan, with his new special events assistant, as no staff or nurses, can render such an interpretation. Eileen Williamson (Jodie), RN, BSN [facility] documented in this encounter Plan of Treatment Upcoming Encounters Date Type Specialty Care Team Description 01/26/2022 Office Visit Ophthalmology Tania Gates , OD [facility] OPHTHALMOLOGY [place], [place] [address] (Wo rk) Scheduled Procedures Name Priority Associated Diagnoses Date/Time ARTHRODESIS,ANTERIOR STENOSIS & HNP & MYELOPATHY INTERBODY,INCLUDING DISC SPACE PREPARATION,DISCECTOMY,OSTEOPHYTECTOMY AND DECOMPRESSION OF SPINAL CORD AND/OR NERVE ROOTS,CERVICAL BELOW C2 (WRVU 25) ARTHRODESIS ANT INTERBDY CERVCL BELOW STENOSIS & HNP & MYELOPATHY C2 EA ADDL INTRSPACE (WRVU 6.5) INSERTION INTERBODY BIOMECH DEV TO STENOSIS & HN P & MYELOPATHY INTERVEBRAL DISC SPACE,(FOR 2 LEVEL) ALLOGRAFT FOR SPINE SURGERY ONLY; STENOSIS & HNP & MYELOPATHY MORSELIZED (WRVU *) MODIFIER K2 MEDICAL - [place] STENOSIS & HNP & MYELOPATHY documented as of this encounter Visit Diagnoses Not on filedocumented in this encounter Care Teams Materials Branch Chief Relationship Specialty Start Date End Date Robinson Vazquez, VALVE SETTER PCP - General Family Medicine 12/11/[address] [place] [address] [address] [place] [address] documented as of this encounter
--- OUTSIDE RECORDS SUMMARY | 2021-12-17 01:00 | XMS_ITS | Encounter Summary ---
:1965 Author Organization [facility] [place] [address] Care Team Providers Name Role Phone Robinson Vazquez APRN Primary Care Provider Reason for Visit Consultation (Routine) - Closed Specialty Diagnoses / Procedures Referred By Contact Refer red To Contact Dermatology Diagnoses Actinic keratosis Actinic Keratosis due to Sun Exposure; New Patient-Notes Received Robinson Vazquez APRN Htr Dermatology Procedures Consult [address] [place], [place] [address] [address] [place] [address] Fax: Referral ID Status Reason Start Date Expiration Date Visits Requ ested Visits Authorized [id number] Closed 01/25/2021 01/25/2022 1 1 Encounter Details Date Type Department Care Team Description 03/30/2021 Office Visit Dermatology at [facility] (seborrheic keratosis); Jorge Rust MD Multiple benign melanocytic nevi of uppe r extremity, lower extremity, and trunk; [address] [facility] [place] [address] [facility] [place], [place] [address] Social History Tobacco Use Types Packs/Day Years Used Date Current Every Day Smoker Cigarettes 2 Smokeless Tobacco: Never Used Alcohol Use Standard Drinks/Week Comments Yes 7 (1 standard drink = 0.6 oz pure alcoho l) Alcohol Habits Answer Date Recorded How often do you have a drink containing 4 or more times a w [facility] [place] 07/05/2018 alcohol? How many drinks containing alcohol do you have 10 or more 07/05/2018 on a typical day when you are drinking? How often do you have six or more drinks on one Daily or alfredito ost daily 07/05/2018 occasion? Comment: Not asked Sex Assigned at Date Recorded Not on file documented as of this encounter Progress Notes Amada Ferguson MD - 03/30/2021 8:40 AM EST Images from the original note were not included. DEPARTMENT OF DERMATOLOGY Medical Dermatology Clinic Provider: Amada Ferguson MD Patient's preferred name Samy Preferred contact method for results []Phone [x]myD-H []Letter Detailed phone message OK? Yes Are there any other people with whom we may discuss your care? Yes - , Danica Past Medical History Date, location, treatment Melanoma No Dysplastic nevi No SCC No BCC No AKs No UV Exposure & Protection Other relevant past medical history - Unknown lesion resolved with LN2 4 years ago - Eczema - Diabetes - Rheumatoid Arthritis - COPD Family History Details Melanoma Possibly? Father NMSC No Other relevant family history No Social History Occupation: Retired Hobbies: [employer] Other: PRE-PROCEDURE SCREENING Details Allergy to lidocaine, epinephrine, Dermabond, chlorhexidine, or adhesives No Bleeding disorder or blood thinners No Pacemaker, defibrillator, deep brain stimulator, cochlear implant No History of Present Illness: Samy Patricio is a 55 y.o. Patient is new and self-referred to the clinic for a focused exam. - He reports he had some lesion frozen on his head and neck that continued to return even after treatment. - He reports in the past year he noticed lots of things growing out and he would like examined. Hereports some lesions grow horns. - He notes a brown lesion on his face that is growing. - He reports picking at a lesion on the scalp, although he denies any recent picking. Medications: Reviewed in eD-H Allergies: Reviewed in eD-H Skin Examination: Full skin examination: Patient asked to undress to their comfort level. Verbalized that the provider???s preference is that the patient remove all clothing and that the provider will not examine areas patient elects to keep covered. Patient elects to keep underwear and socks on and have the following e xamined: scalp, hair, face, ears, neck, chest, axillae, abdomen, back, and upper and lower extremities. Genitalia, feet, and buttocks were not examined. Assessment/Plan #. Seborrheic keratoses EXAM: scattered on the trunk, scalp, and extremities, there are multiple, well- circumscribed, stuck-on, waxy papules and plaques with a cerebriform surface and milia-like cysts apparent on dermatoscopic examination. - Benign nature discussed. No further intervention indicated. - Reviewed that these lesions can be removed cosmetically. Advised patient of shh-gf-wjskol cost. - Start OTC AmLactin Cream: Apply topically once daily. #. Solar lentigines EXAM: concentrated in sun-exposed areas (distal upper and lower extremities, shoulders, face), thereare numerous, light brown macules with moth-eaten borders and homogeneous pigmentation. - Association with prior sun-exposure reviewed. - Recommend daily photoprotection with minimum SPF 30 or above, reapplied every 2 hours. #. Multiple Benign Nevi EXAM: scattered on the trunk and extremities, there are light to medium brown macules and papules with regular pigment network on dermoscopy. - Benign nature discussed. No further intervention indicated. - ABCDEs of melanoma reviewed. Recommend photoprotection with minimum SPF 30 reapplied every 2 hours. - Continue to clinically monitor #. Possible family history of melanoma - Recommend FBSE annually. RTC: 1 year for FSE [x]Note routed to laboratory secretary []Recall placed in scheduling system []Appointment scheduled at checkout Scribe attestation: Anna Marie Vizcarra has performed the documentation for this encounter in the presence of and acting as a scribe for Amada Ferguson MD. I performed the above scribed service and agree with the accuracy of the documentation in this encounter. Reviewed and signed by: Amada Ferguson MD Dermatology [facility] Patient seen and evaluated with staff property management bookkeeper: Zo Esqueda MD Dermatology [facility] Zo Esqueda MD - 03/30/2021 8:40 AM EST I directly supervised Dr. Ferguson during this office visit. Dr. Ferguson presented the history and physical exam to me. I then saw and examined this patient with Dr. Ferguson . We reviewed the history and pertinent details and I confirmed the physical findings. I agree with the details of the history and physical exam as documented in Dr. Ferguson's note. ZO ESQUEDA MD Staff Physician documented in this encounter Plan of Treatment Upcoming Encounters Date Type Specialty Care Team Description 01/26/2022 Office Visit Ophthalmology Tania Gates , OD [facility] OPH[facility]Y [place], [place] [address] (Wo rk) Scheduled Procedures Name Priority Associated [...] MORSELIZED (WRVU *) MODIFIER K2 MEDICAL - [facility] STENOSIS & HNP & MYELOPATHY documented as of this encounter Visit Diagnoses Diagnosis SK (seborrheic keratosis) Other seborrheic keratosis Multiple benign melanocytic nevi of uppe r extremity, lower extremity, and trunk Lentigines Other dyschromia documented in this encounter Care Teams Dietary Services Director Relationship Specialty Start Date End Date Robinson Vazquez APRN PCP - General Family Medicine 12/11/[address] [place] [address] documented as of this encounter
--- OUTSIDE RECORDS SUMMARY | 2021-12-17 01:00 | XMS_ITS | Encounter Summary ---
:1965 Author Organization [facility] [place] [address] Care Team Providers Name Role Phone Robinson Vazquez APRN Primary Care Provider Reason for Referral Consultation (Routine) - Authorized Specialty Diagnoses / Procedures Referred By Contact Refer red To Contact Ophthalmology Diagnoses Other visual disturbances Robinson Vazquez, PHARMACY LABORATORY TECHNICIANEvan Gates, Tania, OD [address] [facility] [address] [place] [address] Fax: Referral ID Status Reason Start Expiration Visits Visits Date Date Requested Authorized [id number] Authorized Consult, 10/13/2021 10/13/2022 6 6 Test & Treat PCP Updated and/or Approved Encounter Details Date Type Department Care Team Description 10/13/2021 Transcribe Orders eDH Incoming Robinson Vazquez Othe r visual Referrals PHARMACY LABORATORY TECHNICIAN disturbances [phone] [place] [address] Social History Tobacco Use Types Packs/Day Years Used Date Current Every Day Smoker Cigarettes 2 Smokeless Tobacco: Never Used Alcohol Use Standard Drinks/Week Comments Yes 7 (1 standard drink = 0.6 oz pure alcoho l) Alcohol Habits Answer Date Recorded How often do you have a drink containing 4 or more times a w [place] 07/05/2018 alcohol? How many drinks containing alcohol do you have 10 or more 07/05/2018 on a typical day when you are drinking? How often do you have six or more drinks on one Daily or alfredito ost daily 07/05/2018 occasion? Comment: Not asked Sex Assigned at Date Recorded Not on file documented as of this encounter Plan of Treatment Upcoming Encounters Date Type Specialty Care Team Description 01/26/2022 Office Visit Ophthalmology Tania Gates , OD [facility] [place], [place] [address] (Wo rk) Scheduled Procedures Name [...] MORSELIZED (WRVU *) MODIFIER K2 MEDICAL - [place] STENOSIS & HNP & MYELOPATHY Scheduled Referrals Name Type Priority Associated Diagnoses Order S chedule Referral to Outpatient Routine Other visual Ordered: Ophthalmology Referral disturbances 10/13/2021 documented as of this encounter Visit Diagnoses Diagnosis Other visual disturbances documented in this encounter Care Teams Diversified Crops Ii Farmworker Relationship Specialty Start Date End Date Robinson Vazquez, PHARMACY LABORATORY TECHNICIAN PCP - General Family Medicine 12/11/[address] [place] [address] documented as of this encounter
--- OUTSIDE RECORDS SUMMARY | 2021-12-17 01:00 | XMS_ITS | Encounter Summary ---
:1965 Author Organization [facility] [place] [address] Care Team Providers Name Role Phone Robinson Vazquez APRN Primary Care Provider Encounter Details Date Type Department Care Team Description 04/12/2021 Telephone Gastroenterology at [facility] Joanna Carlson CMA [facility] [place] [address] DEPT [phone] Social History Tobacco Use Types Packs/Day Years Used Date Current Every Day Smoker Cigarettes 2 Smokeless Tobacco: Never Used Alcohol Use Standard Drinks/Week Comments Yes 7 (1 standard drink = 0.6 oz pure alcoho l) Alcohol Habits Answer Date Recorded How often do you have a drink containing 4 or more times a w [place] 07/05/2018 alcohol? How many drinks containing alcohol do you have 10 or more 07/05/2018 on a typical day when you are drinking? How often do you have six or more drinks on one Daily or alfredito ost daily 07/05/2018 occasion? Comment: Not asked Sex Assigned at Date Recorded Not on file documented as of this encounter Miscellaneous Notes Telephone Encounter - Joanna Carlson CMA - 04/12/2021 8:51 AM EST Called patient to review medications and allergies for their upcoming gastroenterology Type of Appointment: Telehealth appointment. Reach Patient during MA Check: Yes Notes for the provider: Notes for the nurse: documented in this encounter Plan of Treatment Upcoming Encounters Date Type Specialty Care Team Description 01/26/2022 Office Visit Ophthalmology Tania Gates , OD [facility] [place], [place] [address] (Wo rk) Scheduled Procedures Name [...] MORSELIZED (WRVU *) MODIFIER K2 MEDICAL - [place] STENOSIS & HNP & MYELOPATHY documented as of this encounter Visit Diagnoses Not on filedocumented in this encounter Care Teams Raise Driller Relationship Specialty Start Date End Date Robinson Vazquez, CARD BRUSHER PCP - General Family Medicine 12/11/[address] [place] [address] [address] [place] [address] documented as of this encounter
--- OUTSIDE RECORDS SUMMARY | 2021-12-17 01:00 | XMS_ITS | Encounter Summary ---
:1965 Author Organization [facility] [place] [address] Care Team Providers Name Role Phone Robinson Vazquez JOVANI Primary Care Provider Encounter Details Date Type Department Care Team Description 01/26/2021 Anesthesia Event Gastroenterology at [facility] Ashwini Miller MD [facility] [place] [address] [facility] Sumaya Moy CRNA [facility] [place] [address] [place] [address] Anesthesia Record Procedure Summary Procedure Name Responsible Anesthesia Start Anesthesia Stop Time Anesthesiologist Time EGD WITH BIOPSY Ashwini Miller MD 01/26/21 0736 01/26/21 081 3 (WRVU 2.49) (N/A Trunk) Events Date Time Event Comment 01/26/2021 0719 0736 AN Verify 0736 Start 0736 An Start Data 0739 An Induction 0740 Anesthesia Ready 0745 Quick Note Food seen in eso phagus. Converting to GA 0749 An Induction 0751 An Intubation 0807 Extubation/LMA Out 0807 an stop data 0813 Recovery or ICU Handoff Patient care was transferred to the destination unit staff after review of the patient's medica l history, current anesthetic/surgi jenifer status and plan, according to the Provider Handoff Checklist. 0813 Stop Name Total IV Lidocaine 100 mg Propofol 200 mg Propofol INF 696.15 mg Dexmedetomidine 20 mcg Benzocaine 20% [place] 1 spray Succinylcholine 100 mg Ondansetron 4 mg lactated ringers infusion 200 mL Agents Name O2 Air N2O Sevoflurane (et) Blood No blood administrations on file. Lines, Drains, and Airways Type Details Placement Removal PIV 12/29/20; 1026; metacarpal 12/29/20 1026 by Halina gerard, 08/17/21 1027 by vein (top of hand), left; GUILLAUME Woods Andrea piut-flz-bkobiw catheter system; Anatomical Landmarks; US Not Used; 20 gauge, 3/4 in length; distraction, tolerated well, intradermal injection; 08/17/21 (LDA Cleanup utility RA#[id number]); 1027 (LDA Cleanup utility RA#[id number]) PIV 12/29/20; 1039; median cubital 12/29/20 1039 by Laila, 01/26/21 0851 by Boris, vein (antecubital fossa), GUILLAUME Woods RN right; qcof-zss-luojiw catheter system; Anatomical Landmarks; US Not Used; 18 gauge, 1 in length; distraction, intradermal injection, tolerated well; 01/26/21; 0851 ETT Mask Ventilation: Not 01/26/21 0755 by 01/26/21 0807 by Attempted (0); ETT Type: Sumaya Agrawal CRN A Pickering, Janelle, CRNA Cuffed, Oral; ETT Size: 7.5 mm; Indirect:Video; Notes: Asleep, Pre-O2, RSI, Stylette; Attempts: 1; Laryngoscopy Grade: 1; ETT Placement Verified By: Auscultation, Capnometry, Visual; Secured at Teeth: 23 cm; Inserted by: Sumaya Agrawal CRNA documented in this encounter Social History Tobacco Use Types Packs/Day Years Used Date Current Every Day Smoker Cigarettes 2 Smokeless Tobacco: Never Used Alcohol Use Standard Drinks/Week Comments Yes 7 (1 standard drink = 0.6 oz pure alcoho l) Alcohol Habits Answer Date Recorded How often do you have a drink containing 4 or more times a w [place] 07/05/2018 alcohol? How many drinks containing alcohol do you have 10 or more 07/05/2018 on a typical day when you are drinking? How often do you have six or more drinks on one Daily or alfredito ost daily 07/05/2018 occasion? Comment: Not asked Sex Assigned at Date Recorded Not on file documented as of this encounter OR Notes Anesthesia Postprocedure Evaluation - Ashwini Miller MD - 01/26/2021 10:31 AM EST Department of Anesthesiology Post-procedure Note Patient: Samy Patricio Jr. Procedure Summary Date: 01/26/21 Room / Location: [facility] 3 / [facility] Anesthesia Start: 735 Anesthesia Stop: 812 Procedure: EGD WITH BIOPSY (WRVU 2.49) (N/A Trunk) Diagnosis: Dyspepsia (dyspepsia, hx of H pylori on PPI - please biopsy for H pylori) Surgeons: Nathaniel Azevedo MD Responsible Provider: Ashwini Miller MD Anesthesia Type: general ASA Status: 3 All Anesthesia Providers: Anesthesiologist: Ashwini Miller MD SWITCHMAN: Sumaya Agrawal CRNA Vitals Value Taken Time BP 113/70 01/26/21 0840 Temp Pulse Resp 18 01/26/21 0830 SpO2 89 % 01/26/21 0846 Pain Level 0 01/26/21 0841 Vitals shown include unvalidated device data. Patient Location: PACU/[facility] Level of Consciousness: Awake and Alert Pain Management: Satisfactory Analgesia PONV: None Cardiovascular Status: At Baseline and Hemodynamically Stable Respiratory Status: At Baseline and Room Air Postoperative Fluid Status: Intravascular EUvolemia Possible Anesthetic Complications: NONE apparent at time of evaluation Final Primary Anesthesia Type: MAC (The anesthetic type performed was the same as planned.) Comments: ASHWINI MILLER MD Anesthesia Preprocedure Evaluation - Ashwini Miller MD - 01/26/2021 7:17 AM EST Pre-Anesthesia Evaluation for: Samy Patricio Jr. a 55 y.o. male. Procedure(s): EGD, UPPER GI ENDOSCOPY Patient Active Problem List Diagnosis ??? Gastroesophageal reflux disease without esophagitis - Complicated by known Diaz's Esophagus - Followed closely as OPT with EGD pending - Continued on PPI while inpatient ??? Type 2 diabetes mellitus without complication, without long-term current use of insulin - Hgb A1c of 6.3% on admission, reflecting improved control - Continued on Sensitive ISS while inpatient ??? Uncomplicated alcohol dependence - Patient reports drinking 6 drinks/day - No hx of complicated withdrawals - Initiated on CIWA Protocol on 08/07/19, as well as Thiamine/Folic Acid supplementation. ??? Chronic obstructive pulmonary disease ??? ST elevation myocardial infarction involving right coronary artery Mr. Samy Patricio is a 53 year male is a PMHx of CAD (s/p NSTEMI 08/2017 s/p EDEN to RCA and LCx), DM, HTN, HLD, Diaz's esophagus, chronic back pain, and alcohol and tobacco use who developed persistent chest pain and syncope found to have an inferior STEMI. - Inferior STEMI s/p EDEN to RCA - S/P TNK prior to transfer to [facility] - S/P Prasugrel & ASA load followed by maintenance ASA 81 mg & Prasugrel 10 mg - LVEDP 21 in the Mail Sorter - Prior to Cardiac Catheterization, noted to have dual pressor requirement with Epinephrine and Dopamine with transcutaneous pacing for hemodynamically unstable bradycardia ??? History of tobacco use - 2 PPD smoker since Age 13 - Contemplative/Action Stage - NRT provided - Tobacco Cessation Team Consulted ??? Cervical spinal stenosis ??? CARLOTA (obstructive sleep apnea) ??? Chronic midline low back pain without sciatica Past Medical History: Diagnosis Date ??? Asthma ??? Diaz's esophagus ??? Chronic midline low back pain without sciatica 02/08/2017 ??? COPD (chronic obstructive pulmonary disease) ??? Diabetes ??? Gastroesophageal reflux ??? Hyperlipidemia ??? Kidney failure H/O ACUTE KIDNEY INJURY ??? Mental health problem DEPRESSION ??? Myocardial infarction 08/2017 NSTEMI ??? Peptic ulcer disease PEPTIC ULCER DISEASE ??? Post-operative nausea and vomiting Had scope at [facility] and had vomiting after Past Surgical History: Procedure Laterality Date ??? CATARACT REMOVAL Right 2016 ??? CORONARY ANGIOPLASTY WITH STENT PLACEMENT 08/2017 ??? PRO UPPER GI ENDOSCOPY, BIOPSY 04/26/2011 EGD WITH BIOPSY performed by KIRSTEN DAMON at [facility] ??? PRO UPPER GI ENDOSCOPY, BIOPSY N/A 09/27/2018 UPPER GASTROINTESTINAL ENDOSCOPY,WITH BIOPSY SINGLE OR MULTIPLE (WRVU 2.49) performed by Luc Hdz MD at [facility] Social History Tobacco Use ??? Smoking status: Current Every Day Smoker Packs/day: 2.00 Types: Cigarettes ??? Smokeless tobacco: Never Used Substance Use Topics ??? Alcohol use: Yes Alcohol/week: 7.0 - 14.0 standard drinks Types: 7 - 14 Shots of liquor per week Social History Substance and Sexual Activity Drug Use Not Currently Allergies Allergen Reactions ??? Venlafaxine ??? Doxycycline Nausea And Vomiting ??? Other [Unclassified Drug] Nausea And Vomiting Had an allergic reaction to an antibiotic but does not know the name Medications: MAR and/or home medications have been reviewed. Physical Exam: Preprocedure Vitals Current as of 01/26/21 0717 BP: 132/77 Pulse: 77 Resp: 18 SpO2: 96 Temp: 36.8 ??C (98.2 ??F) Height: 182.9 cm (6') (01/26/21) Weight: 136.5 kg (301 lb) (01/26/21) BMI: 40.82 IBW: 77.6 kg (171 lb 1.9 oz) Last edited 01/26/21 07 by LIZBETH Airway Assessment: Mallampati: II TM distance: >3 FB Neck ROM: full Cardiovascular Assessment: system normal PE comment: 1. The left ventricular chamber size, wall thickness, and global systolic function are normal with ejection fraction of 64% by Hi's biplane method. There are no left ventricular segmental wall motion abnormalities. 2. The right ventricular chamber size, wall thickness, and systolic function are within normal limits. 3. There is normal bi-atrial size. 4. There is no hemodynamically significant valvular disease. 5. See remainder of report for additional findings. 6. IMPRESSION: Compared to prior study from 07/14/06, there is no significant change. Pulmonary Assessment: pulmonary exam normal Dental Assessment: - normal exam Misc Assessment: Patient is wearing No contact(s). IV access: Peripheral line Last Filed Perioperative Cognitive Screening None Anesthesia Plan: ASA 3 general, with a(n) intravenous induction 55 year old male with recent ST GA Type 2 DM Morbid obesity and CAITLYN and COPD here for EGD. Region - Other Informed Consent: Anesthetic plan and risks discussed with patient. Plan discussed with SWITCHMAN. Anesthesia Screening documented in this encounter Plan of Treatment Upcoming Encounters Date Type Specialty Care Team Description 01/26/2022 Office Visit Ophthalmology Tania Gates , OD [facility] OPHTHAL[facility] [place], [place] [address] (Wo rk) Scheduled Procedures Name [...] & MYELOPATHY MORSELIZED (WRVU *) MODIFIER K2 [facility] STENOSIS & HNP & MYELOPATHY documented as of this encounter Visit Diagnoses Not on filedocumented in this encounter Administered Medications Inactive Administered Medications - up to 3 most recent administrations Medication Order MAR Action Action Date Dose Rate Site benzocaine (Hurricane One) 20% Given 01/26/2021 7:36 AM EST 1 sp ray spray (restricted to dariana-procedural use) Oral, PRN, Starting on Mon01/26/21 at 0736, Until Mon01/26/21 at 0813, Anesthesia Intra-op dexmedetomidine (Precedex) (4 mcg/mL) bolus Given 01/26/2021 7:38 AM EST 20 mcg injection (Anesthsia) Intravenous, PRN, Starting on Mon01/26/21 at 0738, Until Mon01/26/21 at 0813, Anesthesia Intra-op, Routine lactated ringers infusion New Bag 01/26/2021 7:36 AM EST 100 mL/hr, Intravenous, CONTINUOUS, Starting on Mon01/26/21 at 0745, Until Mon01/26/21 at 0851, Endoscopy (Day of Procedure) lidocaine (pf) (Xylocaine) (20 mg/mL) 2% Given 01/26/2021 7:38 A M EST 100 mg injection syringe Intravenous, PRN, Starting on Mon01/26/21 at 0738, Until Mon01/26/21 at 0813, Anesthesia Intra-op, Routine ondansetron (pf) (Zofran) (2 mg/mL) inje ction Given 01/26/2021 7:58 AM EST 4 mg Intravenous, PRN, Starting on Mon01/26/21 at 0758, Until Mon01/26/21 at 0813, Anesthesia Intra-op, Routine propofoL (Diprivan) (10 mg/mL) New Bag 01/26/2021 7:39 150 mcg /kg/min 122.85 mL/hr infusion AM EST Intravenous, CONTINUOUS PRN, Starting on Mon01/26/21 at 0739, Until Mon01/26/21 at 0813, Anesthesia Intra-op, Routine propofoL (Diprivan) 10 mg/mL bolus injection Given 7:49 AM EST 100 mg (Anesthesia) Intravenous, PRN, Starting on Mon01/26/21 at 0739, Until Mon01/26/21 at 08, Anesthesia Intra-op Given 01/26/2021 7:41 AM EST 50 mg Given 01/26/2021 7:39 AM EST 50 mg succinylcholine (Anectine;Quelicin) (20 Given 01/26/2021 7:49 AM EST 100 mg mg/mL) injection Intravenous, PRN, Starting on Mon01/26/21 at 0749, Until Mon01/26/21 at 0813, Anesthesia Intra-op, Routine documented in this encounter Care Teams Friction Welding Machine Operator Relationship Specialty Start Date End Date Robinson Vazquez, MANAGER PRICING PCP - General Family Medicine 12/11/[address] [place] [address] documented as of this encounter
--- OUTSIDE RECORDS SUMMARY | 2021-12-17 01:00 | XMS_ITS | Encounter Summary ---
:1965 Author Organization [facility] [place] [address] Care Team Providers Name Role Phone Robinson Vazquez APRN Primary Care Provider Encounter Details Date Type Department Care Team Description 01/26/2021 Orders Only Gastroenterology at [facility] Nathaniel Azevedo, Dyspepsia [facility] [place] [address] [facility] [phone] GASTROENTEROLOGY [place], [place] [address] (Wo rk) Social History Tobacco Use Types Packs/Day Years Used Date Current Every Day Smoker Cigarettes 2 Smokeless Tobacco: Never Used Alcohol Use Standard Drinks/Week Comments Yes 7 (1 standard drink = 0.6 oz pure alcoho l) Alcohol Habits Answer Date Recorded How often do you have a drink containing 4 or more times a w [place] 07/05/2018 alcohol? How many drinks containing alcohol [...] Office Visit Ophthalmology Tania Gates , OD [facility] OPHTHALMOLOGY DE PT [place], [place] [address] (Wo rk) Scheduled Procedures Name [...] MORSELIZED (WRVU *) MODIFIER K2 [facility] STENOSIS & HNP & MYELOPATHY documented as of this encounter Visit Diagnoses Diagnosis Dyspepsia Dyspepsia and other specified disorders of function of stomach documented in this encounter Care Teams Graphic Production Artist Relationship Specialty Start Date End Date Robinson Vazquez, RUG INSPECTOR HELPER PCP - General Family Medicine 12/11/[address] [place] [address] [address] [place] [address] documented as of this encounter
--- OUTSIDE RECORDS SUMMARY | 2021-12-17 01:00 | XMS_ITS | Encounter Summary ---
:1965 Author Organization [facility] [place] [address] Care Team Providers Name Role Phone Robinson Vazquez APRN Primary Care Provider Encounter Details Date Type Department Care Team Description 01/26/2021 Hospital Encounter Gastroenterology at [facility] ([facility]) [place] [address] [place] [address] CENTER GASTROENTEROLOGY [place], [place] [address] Social History Tobacco Use Types Packs/Day Years Used Date Current Every Day Smoker Cigarettes 2 Smokeless Tobacco: Never Used Alcohol Use Standard Drinks/Week Comments Yes 7 (1 standard drink = 0.6 oz pure alcoho l) Alcohol Habits Answer Date Recorded How often do you have a drink containing 4 or more times a w [place] 07/05/2018 alcohol? How many drinks containing alcohol do you have 10 or more 07/05/2018 on a typical day when you are drinking? How often do you have six or more drinks on one Daily or alfredito ost daily 07/05/2018 occasion? Comment: Not asked Sex Assigned at Date Recorded Not on file documented as of this encounter Last Filed Vital Signs Vital Sign Reading Time Taken Comments Blood Pressure 113/70 01/26/2021 8:40 AM EST Pulse 77 01/26/2021 7:05 AM EST Temperature 36.8 ??C (98.2 ??F) 01/26/2021 7:05 AM EST Respiratory Rate 18 01/26/2021 8:30 AM EST Oxygen Saturation 96% 01/26/2021 8:41 AM EST Inhaled Oxygen Concentration - - Weight 136.5 kg (301 lb) 01/26/2021 7:05 AM EST Height 182.9 cm (6') 01/26/2021 7:05 AM EST Body Mass Index 40.82 01/26/2021 7:05 AM EST documented in this encounter Discharge Instructions Discharge InstructionsIrene Escalante RN - 01/26/2021 8:13 AM EST Upper GI Endoscopy: What to Expect at Home Your Recovery You will be able to go home after your doctor or nurse checks to make sure you are not having any problems. You may have to stay overnight if you had treatment during the test. You may have a sore throat for a day or two after the test. This care sheet gives you a general idea about what to expect after the test. How can you care for yourself at home? Activity Rest when you feel tired. ?? You can do your normal activities when it feels okay to do so. Diet ?? Follow your doctor's directions for eating. ?? Unless your doctor has told you not to, drink plenty of fluids. This helps to replace the fluidsthat were lost during the prep. ?? Do not drink alcohol. Medicines ?? Your doctor will tell you if and when you can restart your medicines. He or she will also give you instructions about taking any new medicines. ?? If you take blood thinners, such as warfarin (Coumadin), clopidogrel (Plavix), or aspirin, be sure to talk to your doctor. He or she will tell you if and when to start taking those medicines again.Make sure that you understand exactly what your doctor wants you to do. ?? If polyps were removed or a biopsy was done during the test, your doctor may tell you not to take aspirin or other anti-inflammatory medicines for a few days. These include ibuprofen (Advil, Motrin) and naproxen (Aleve). ?? If you have a sore throat the day after the procedure, use an wvgf-lqf-dikdumo spray to numb yourthroat. Sucking on throat lozenges and gargling with warm salt water may also help relieve your symptoms. Other instructions ?? For your safety, do not drive or operate machinery until the medicine wears off and you can think clearly. Your doctor may tell you not to drive or operate machinery until the day after your test. ?? Do not sign legal documents or make major decisions until the medicine wears off and you can think clearly. The anesthesia can make it hard for you to fully understand what you are agreeing to. Additional Information for Sedation Patients For patients who received sedation: ?? You may have received medications before and/or during your procedure which effects your judgement and reaction time. ?? Do not drive, operate machinery, drink alcoholic beverages or make important decisions for 24 hours. ?? Be careful on stairs as you may be unsteady on your feet. ?? You may eat a regular diet as tolerated. ?? Do not smoke if you are alone. ?? IV site: Slight redness or tenderness is normal, you can use a warm compress if you would like. If tenderness and/or redness increase or if foul drainage occurs, please contact your Doctor. Please call [phone] before 8pm Mon-Fri with problems, questions or concerns. If you call after 8pm or on weekends, call the Hospital at [phone] and ask to speak to the Commissioner Conservation Of Resources control valve mechanic and the rotary lithographic press operator will contact that person for you. When should you call for help? Call [phone] anytime you think you may need emergency care. For example, call if: ?? You passed out (lost consciousness). ?? You pass maroon or bloody stools. ?? You have trouble breathing. Call your doctor now or seek immediate medical care if: ?? You have pain that does not get better after you take pain medicine. ?? You are sick to your stomach or cannot drink fluids. ?? You have new or worse belly pain. ?? You have blood in your stools. ?? You have a fever. ?? You cannot pass stools or gas. Watch closely for changes in your health, and be sure to contact your doctor if you have any problems. Where can you learn more? [facility] View your After Visit Summary and more online at [email or web address] If you would like to provide feedback about your hospital experience, please call the Office of Patient and Family Relations at . If you have received this After Visit Summary in error, please immediately return it in person to the department, or notify the [facility] Privacy Office by calling toll free at between the hours of 8AM and 5PM to arrange for our retrieval of the documents at no cost to you. Content Version: 12.2 ?? [id number] [employer]. Care instructions adapted under license by [facility]. If you have questions about a medical condition or this instruction, always ask your healthcare professional. [employer] disclaims any warranty or liability for your use of this information. documented in this encounter Medications at Time of Discharge Medication Sig Dispensed Refills Start Date End Date OneTouch Verio test strips TEST BLOOD GLUCOSE 0 0 06/23/2020 Strip TWICE A DAY OneTouch Verio Flex meter TEST BLOOD GLUCOSE 0 Misc TWICE A DAY idxbemzliza-natzndtcd-dgbx 1 puff inhaled once a 0 nter 100-62.5-25 mcg Disk day with Device furosemide (Lasix) 40 mg TAKE ONE TABLET BY 0 05/2020 Tablet MOUTH EVERY DAY Lantus Solostar U-100 50 Units. 0 08/19/2020 Insulin pen humaLOG KwikPen 100 0 09/08/2020 unit/mL Insulin Pen isosorbide mononitrate 0 09/02/2020 (IMDUR) 60 mg Tablet Sustained Release 24 hr insulin needles, 0 03/19/2019 disposable, (BD Ultra-Fine Mini Pen Needle) 31 gauge x 3/16 Needle tamsulosin (Flomax) 0.4 mg Take by mouth. 0 07/20 Capsule atorvastatin (Lipitor) 80 Take 1 tablet by 90 tablet 3 07/12 mg Tablet mouth every evening. pantoprazole EC (Protonix) Take 1 tablet by 90 tablet 3 40 mg Tablet, Delayed mouth 2 times daily. Release (E.C.) folic acid (Folvite) 1 mg Take 1 tablet by 90 tablet 3 07/12 Tablet mouth daily. nicotine (NICODERM CQ) 21 Change 2 patches on 28 patch 0 0 08/08/2019 mg/24 hr Patch 24 hr the skin daily. thiamine (Vitamin B1) Take 1 tablet by 30 tablet 3 08/08/19 20 mouth daily. metoprolol succinate XL Take 1 tablet by 30 tablet 3 2019 (Toprol-XL) 100 mg Tablet mouth daily. Sustained Release 24 hr nitroGLYcerin (NITROSTAT) PLACE 1 TABLET UNDER 3 11/23/2018 0.4 mg Tablet, Sublingual TONGUE EVERY 5 MINUTES DIRECTED metFORMIN (GLUCOPHAGE-XR) Take 1,000 mg by 3 06/2018 500 mg Tablet Sustained mouth 2 times daily. Release 24 hr lancets 33 gauge Misc Lancets MISC 0 USE DIRECTED. Active aspirin 81 mg Tablet, Take 81 mg by mouth 0 08/27 Delayed Release (E.C.) Daily. glipiZIDE (GLUCOTROL) 5 mg Take 10 mg by mouth 2 4 11/15/2016 Tablet times daily (before meals). documented as of this encounter H&P Notes Luc Wheeler APRN - 01/26/2021 6:58 AM EST Patient Name: Samy Patricio Jr. Patient Age: 55 y.o. Birthdate: 1965 Admit date: 01/26/2021 Attending Physician: Nathaniel Azevedo MD Gastroenterology and Hepatology Pre-Procedure History and Physical Exam Procedure: EGD: Indication: Dyspepsia, belching, bloating, distention, history of H. Pylori Patient Active Problem List Diagnosis Code ??? Chronic midline low back pain without sciatica M54.50, G89.29 ??? Cervical spinal stenosis M48.02 ??? ST elevation myocardial infarction involving right coronary artery I21.11 ??? History of tobacco use Z87.891 ??? Gastroesophageal reflux disease without esophagitis K21.9 ??? Type 2 diabetes mellitus without complication, without long-term current use of insulin E11.9 ??? Uncomplicated alcohol dependence F10.20 ??? Chronic obstructive pulmonary disease J44.9 ??? CARLOTA (obstructive sleep apnea) G47.33 EXAM: HEENT: Airway examined, oropharynx clear Mallampati Score: III (soft palate, base of uvula visible) LUNGS: Clear to auscultation HEART: Regular rate and rhythm, normal S1, S2 ABDOMEN: Normal bowel sounds, hard, distended, non tender A/P Proceed with the planned endoscopic procedure. ASA 3 - Patient with moderate systemic disease with functional limitations Sedation Plan: anesthesia Risks and benefits of the procedure explained to the patient. Consent signed. Luc Wheeler APRN Section of Gastroenterology [place] [address] documented in this encounter Plan of Treatment Upcoming Encounters Date Type Specialty Care Team Description 01/26/2022 Office Visit Ophthalmology Tania Gates , OD [facility] OPHTHALMOLOGY [place], [place] [address] (Wo rk) Scheduled Procedures Name [...] HNP & MYELOPATHY MORSELIZED (WRVU *) MODIFIER [address] STENOSIS & HNP & MYELOPATHY documented as of this encounter Procedures Procedure Name Priority Date/Time Associated Diagnosis Comme nts SURGICAL PATHOLOGY Routine 01/26/2021 8:06 AM Res ults for this REPORT EST procedure are i n the results section. SPECIMEN TO Routine 01/26/2021 8:06 AM Results f or this PATHOLOGY EST procedure are i n the results section. SPECIMEN TO Routine 01/26/2021 8:06 AM Results f or this PATHOLOGY EST procedure are i n the results section. SPECIMEN TO Routine 01/26/2021 8:06 AM Results f or this PATHOLOGY EST procedure are i n the results section. EGD WITH BIOPSY 01/26/2021 7:38 AM Dyspepsia (WRVU 2.49) EST UPPER GI ENDOSCOPY Routine 01/26/2021 7:01 AM Res ults for this EST procedure are i n the results section. documented in this encounter Results Surgical Pathology Report (01/26/2021 8:06 AM EST) Component Value Ref Test Analysis Performed At [facility] Range Method Time Signature Surgical [id number] ? Location: 4T; EA07; [facility] Pathology [place] Report The signing pathologist has (i) examined the relevant preparation(s) for the [facility] specimen(s) and (ii) rendered or confirmed the diagnosis(es) . HOSPITAL LABORATORY . ?Surgic al Pathology DIAGNOSIS A - Gastric biopsy (Multiple): Gastric antral gland mucosa with nonspecific reactive gastro virgie. Gastric fundic gland mucosa with nonspecific parietal cell alterations of the type sometimes seen in hypergastrinemic conditions o r in patients on PPI therapy. No H. pylori-like microorganism is seen. B - Duodenal biopsy (Multiple): Duodenal mucosa within tabatha l limits, including preserved villous architecture. C - Irregular z line. esophagus, biopsy (Multiple): Squamocolumnar junctional mu cosa (cardia type) with mild chronic inflammation and focal ??multilayered epithe lium. ??There is no evidence of intestinal metaplasia. Electronically signed by: ?Ayden VASQUEZ, Roxann Verified: ??02/04/2021 0:22 ?? Pathologist Performed at: ??-[facility], [place], [place] SPECIMEN(S) SUBMITTED A - Gastric, biopsy (Multiple) B - Duodenal, biopsy (Multiple) C - Irregular z line. esophagus, biopsy (Multiple) CLINICAL INFORMATION History of dyspepsia, belching, bloating, distention, histor y of H. pylori SPECIMEN PROCESSING A - Labeled/Fixative: Gastric biopsies, formalin. Quantity/Size: Fragments, 0.2-0.4 cm. Tissue Description: Soft, figueroa-pink tissues. Sections/Processing: Submitted en toto ??in 1 cassette labeled A1. B - Labeled/Fixative: Duodenal biopsies, formalin. Quantity/Size: Three, 0.2-0.3 cm. Tissue Description: Soft, figueroa-pink tissues. Sections/Processing: Submitted en toto ??in 1 cassette labeled B1. C - Labeled/Fixative: Irregular Z line. Esophagus biopsies, formalin. Quantity/Size: Two, 0.2 cm. Tissue Description: Soft, figueroa-pink tissues. Sections/Processing: Submitted en toto ??in 1 cassette labeled C1. ??pps Specimen (Source) Anatomical Collection Method Collection Time Re ceived Time Location / / Volume Laterality 01/26/2021 8:06 AM EST Nathaniel Azevedo MD PATHOLOGY/CYTOLOGY ORDERABLE S Performing Organization Address City/[facility]/[place] [address] Specimen to Pathology (01/26/2021 8:06 AM EST) Specimen Anatomical Collection Method Collection Time Receive d Time (Source) Location / / Volume Laterality AP Specimen 01/26/2021 8:06 AM 8:06 EST AM EST Narrative [facility] OR - 01/26/2021 8:06 AM EST Specimen requisition ordered. ??Separate Pathology report to follow Nathaniel Azevedo MD PATHOLOGY/CYTOLOGY ORDERABLE S Performing Organization Address City/State/[place] [address] Specimen to Pathology (01/26/2021 8:06 AM EST) Specimen Anatomical Collection Method Collection Time Receive d Time (Source) Location / / Volume Laterality AP Specimen 01/26/2021 8:06 AM 8:06 EST AM EST Narrative [facility] ORY - 01/26/2021 8:06 AM EST Specimen requisition ordered. ??Separate Pathology report to follow Nathaniel Azevedo MD PATHOLOGY/CYTOLOGY ORDERABLE S Performing Organization Address City/State/[place] [address] Specimen to Pathology (01/26/2021 8:06 AM EST) Specimen Anatomical Collection Method Collection Time Receive d Time (Source) Location / / Volume Laterality AP Specimen 01/26/2021 8:06 AM 8:06 EST [address] [facility] - 01/26/2021 8:06 AM EST Specimen requisition ordered. ??Separate Pathology report to follow Nathaniel Azevedo MD PATHOLOGY/CYTOLOGY ORDERABLE S Performing Organization Address City/State/[place] [address] UPPER GI ENDOSCOPY (01/26/2021 7:01 AM EST) Component Value Ref Test Analysis Performed At [facility] Range Method Time Signature UPPER GI [facility] ENDOSCOPY Endoscopy Procedure Date: 01/26/2021 7:01 AM ? Patient Name: Samy Patricio ? Date of : 1965 ? Age: 55 ? Order #: [id number] ? Instrument Name: [id number] ? Procedure: ? Upper GI endoscopy Indications: ? Dyspepsia Patient Profile: ? 55 yo M presents for EGD, referred by ? Dr. Jean with dyspepsia, hi story of ? H. pylori Providers: ? Nathaniel Azevedo, Clarissa willingham, ? Senior Designer/Art Director, Zuleyka Sheppard Referring MD: ?Robinson Vazquez, Janki Jean , ? MD Medicines: ? Monitored Anesthesia Care Complications: ? No immediate complications. Procedure: ? Pre-Anesthesia Assessment: ? - Prior to the procedure, a H istory ? and Physical was performed, a nd ? patient medications and aller gies ? were reviewed. The patient is ? competent. The risks and bene fits of ? the procedure and the sedatio n ? options and risks were discus sed with ? the patient. All questions we re ? answered and informed consent was ? obtained. Patient identificat ion and ? proposed procedure were verif ied by ? the physician, the nurse, the ? anesthesiologist, the anesthe tist and ? the mining technician in the pre-pro cedure ? area in the procedure room. M ental ? Status Examination: alert and ? oriented. Airway Examination: normal ? oropharyngeal airway and neck ? mobility. Respiratory Examina tion: ? clear to auscultation. CV ? Examination: normal. Prophyla ctic ? Antibiotics: The patient does not ? require prophylactic antibiot ics. ? Prior Anticoagulants: The pat ient has ? taken no previous anticoagula nt or ? antiplatelet agents. ASA Grad e ? Assessment: III - A patient w ith ? severe systemic disease. Afte r ? reviewing the risks and benef its, the ? patient was deemed in satisfa ctory ? condition to undergo the proc edure. ? The anesthesia plan was to us e ? monitored anesthesia care (MA C). ? Immediately prior to administ ration ? of medications, the patient w as ? re-assessed for adequacy to r eceive ? sedatives. The heart rate, ? respiratory rate, oxygen satu rations, ? blood pressure, adequacy of p ulmonary ? ventilation, and response to care ? were monitored throughout the ? procedure. The physical statu s of the ? patient was re-assessed after the ? procedure. ? The procedure, indications, b enefits, ? risks and alternatives were e xplained ? to the patient. Specifically ? discussed were potential ? complications including, but not ? limited to, bleeding, perfora tion, ? infection, missing a cancer, and ? adverse medication reactions. The ? endoscope was introduced thro ugh the ? mouth, and advanced into the stomach ? at which a large bolus of martina d in the ? gastric body was seen. The en doscope ? was removed, patient was intu bated, ? and then the endoscope was ? re-itnroduced through the alvina th and ? advanced to the second part o f ? duodenum. The patient tolerat ed the ? procedure well. The upper GI ? endoscopy was accomplished wi thout ? difficulty. The patient skip ated the ? procedure well. ? Findings: ? Scattered islands of salmon-colored mucosa were ? present at 38 cm. The maximum longitudinal extent of ? these esophageal mucosal changes was 1 cm in length. ? Biopsies were taken with a cold forceps for ? histology. Z-line at 39-cm from the incisors. ? Patchy mildly erythematous mucosa without bleeding ? was found in the gastric body and in the gastric ? antrum. Biopsied for H. pylori from the incisura, ? greater and lesser curvature of the body and antrum. ? Large amount of food contents in the gastric body and ? antrum limiting visualization. ? Patchy areas of smooth appearing mucosa without villi ? in the duodenal bulb and second portion. Biopsied. No ? ulcers or erosions. ? Moderate Sedation: ? Not applicable - See Anesthesia documentation Impression: ?- [place]-colored mucosa suspicious ? for short-segment Diaz's ? esophagus. Biopsied. ? - Erythematous mucosa in the gastric ? body and antrum. Biopsied. ? - Large amount of food in sto mach; ? incomplete visualization ? - Patchy avillous duodenum. B iopsied. Recommendation: ?- Patient has a contact number ? available for emergencies. Th e signs ? and symptoms of potential del ayed ? complications were discussed with the ? patient. Return to normal act ivities ? tomorrow. Written discharge ? instructions were provided to the ? patient. ? - Return to referring provide r as ? scheduled. Consider gastric e mptying ? study given retained food and ? diabetes mellitus type 2 ? - Repeat EGD for complete ? visualization of the stomach. ? Recommend 24-hour liquid diet in ? preparation. ? - Await pathology ? Attending Participation: ? I personally performed the entire procedure. ? Nathaneil Azevedo, 01/26/2021 8:13:43 AM Number of Addenda: 0 Note Initiated On: 01/26/2021 7:01 AM Specimen (Source) Anatomical Collection Method Collection Time Re ceived Time Location / / Volume Laterality 01/26/2021 7:01 AM EST Janki Jean MD GENERAL SURGICAL ORDERABLES Performing Organization Address City/State/ZIP Code Phon e Number [facility] documented in this encounter Visit Diagnoses Not on filedocumented in this encounter Active and Recently Administered Medications Times are shown in EST. Continuous Medication Order 01/24/2021 01/25/2021 01/26/2021 lactated ringers infusion (CANCELED) 0736 (New Bag - Provider: Sumaya Agrawal CRNA)0810 (Anesthesia Volume Adjustment - Provider: Sumaya Agrawal CRNA) 100 mL/hr, Intravenous, CONTINUOUS, Star ting on 01/26/21 at 0745, Until Mon01/26/21 at 0851, Endoscopy (Day of Procedure) documented in this encounter Care Teams Mannequin Wig Maker Relationship Specialty Start Date End Date Robinson Vazquez APRN PCP - General Family Medicine 12/11/[address] [place] [address] documented as of this encounter
--- OUTSIDE RECORDS SUMMARY | 2021-12-17 01:00 | XMS_ITS | Encounter Summary ---
:1965 Author Organization [facility] [place] [address] Care Team Providers Name Role Phone TaylorDeepaliuriel Laurent APRN Primary Care Provider Encounter Details Date Type Department Care Team Description 03/30/2021 Office Visit Dermatology at [facility] Amada Ferguson (seborrheic Jorge Rust MD keratosis) [address] [place] [address] [facility] [place] [place] [address] Social History Tobacco Use Types Packs/Day Years Used Date Current Every Day Smoker Cigarettes 2 Smokeless Tobacco: Never Used Alcohol Use Standard Drinks/Week Comments Yes 7 (1 standard drink = 0.6 oz pure alcoho l) Alcohol Habits Answer Date Recorded How often do you have a drink containing 4 or more times a w [place] 07/05/2018 alcohol? How many drinks containing alcohol do you have 10 or more 07/05/2018 on a typical day when you are drinking? How often do you have six or more drinks on one Daily or alfredito ost daily 07/05/2018 occasion? Comment: Not asked Sex Assigned at Date Recorded Not on file documented as of this encounter Progress Notes Amada Ferguson MD - 03/30/2021 9:00 AM EST Images from the original note were not included. DEPARTMENT OF DERMATOLOGY Medical Dermatology Clinic Provider: Amada Ferguson MD Please see same-day medical note for details of cosmetic procedure. Lesion type: Seborrheic Keratoses Number: 9 Location(s): Scalp, right shoulder, and right upper back - After informed consent, LN2 x2 10 second cycles to 9 lesions. Patient tolerated the procedure well. Cosmetic charge: $100; patient paid before exiting the clinic today. I performed the above scribed service and agree with the accuracy of the documentation in this encounter. Reviewed and signed by: Amada Ferguson MD Dermatology [facility] Zo Esqueda MD - 03/30/2021 9:00 AM EST I directly supervised Dr. Ferguson [...] Ophthalmology Tania Gates , OD [facility] [place], [place] [address] ( rk) Scheduled Procedures Name Priority Associated Diagnoses [...] & MYELOPATHY MORSELIZED (WRVU *) MODIFIER K2 [facility] STENOSIS & HNP & MYELOPATHY documented as of this encounter Visit Diagnoses Diagnosis SK (seborrheic keratosis) Other seborrheic keratosis documented in this encounter Care Teams Stock Letterer Relationship Specialty Start Date End Date Robinson Vazquez, DESIGN/ANIMATION INSTRUCTOR PCP - General Family Medicine 12/11/[address] [place] [address] documented as of this encounter
--- OUTSIDE RECORDS SUMMARY | 2021-12-17 01:00 | XMS_ITS | Encounter Summary ---
:1965 Author Organization [facility] [place] [address] Care Team Providers Name Role Phone Robinson Vazquez APRN Primary Care Provider Encounter Details Date Type Department Care Team Description 01/26/2021 Surgery Gastroenterology at [facility] Nathaniel Azevedo, EGD WITH BIOPSY ([facility] Danika watts MD [address]) [place] [address] [facility] [phone] DR GASTROENTEROLOGY [place], [place] [address] Social History Tobacco Use Types Packs/Day Years Used Date Current Every Day Smoker Cigarettes 2 Smokeless Tobacco: Never Used Alcohol Use Standard Drinks/Week Comments Yes 7 (1 standard drink = 0.6 oz pure alcoho l) Alcohol Habits Answer Date Recorded How often do you have a drink containing 4 or more times a w [place] 07/05/2018 alcohol? How many drinks containing alcohol [...] Sign Reading Time Taken Comments Blood Pressure 129/77 01/26/2021 8:12 AM EST Pulse 77 01/26/2021 7:05 AM EST Temperature 36.8 ??C (98.2 ??F) 01/26/2021 7:05 AM EST Respiratory Rate 18 01/26/2021 8:12 AM EST Oxygen Saturation 97% 01/26/2021 8:12 AM EST Inhaled Oxygen Concentration - - [...] the day after the procedure, use an tdya-uon-koncviz spray to numb yourthroat. Sucking on throat [...] occurs, please contact your Doctor. Please call [phone] before 8pm Mon-Fri with problems, questions or concerns. If you call after 8pm or on weekends, call the Hospital at [phone] and ask to speak to the Liquor Grinding Mill Operator bacon de rinder and the chemical treatment operator will contact that person for you. When should you call for help? Call [phone] anytime you think you may need emergency [...] any problems. Where can you learn more? [email or web address] View your After Visit Summary and more online at [email or web address] If you would like to provide [...] cost to you. Content Version: 12.2 ?? [id number] [employer]. Care instructions adapted under license by [facility]. If you have questions about a medical condition or this instruction, always ask your healthcare professional. [employer] disclaims any warranty or liability for your use of this information. documented in this encounter Medications at Time of Discharge Medication Sig Dispensed Refills Start Date End Date OneTouch Verio test strips TEST BLOOD GLUCOSE 0 0 06/23/2020 Strip TWICE A DAY OneTouch Verio Flex meter TEST BLOOD GLUCOSE 0 Misc TWICE A DAY kaiiwrqekop-mhfqslxby-xfwc 1 puff inhaled once a 0 nter [...] Wheeler APRN Section of Gastroenterology [place] [address] documented in this encounter Plan of Treatment Upcoming Encounters Date Type Specialty Care Team Description 01/26/2022 Office Visit Ophthalmology Tania Gates , OD [facility] OPHTHALMOLOGY DE PT [place], [place] [address] (Wo rk) Scheduled Procedures Name [...] MORSELIZED (WRVU *) MODIFIER [facility] - [place] STENOSIS & HNP & MYELOPATHY documented as [...] Component Value Ref Test Analysis Performed At [facility] Range Method Time Signature Surgical [id number] ? Location: 4T; [facility]; [facility] Report The signing pathologist has (i) examined [...] Verified: ??02/04/2021 0:22 ?? Pathologist Performed at: ??-[facility] Dept. of Pathology, [place], [place] SPECIMEN(S) SUBMITTED A - Gastric, biopsy [...] MD PATHOLOGY/CYTOLOGY ORDERABLE S Performing Organization Address City/[facility]/[place] [address] Specimen to Pathology (01/26/2021 8:06 AM EST) Specimen Anatomical Collection Method Collection Time Receive d Time (Source) Location / / Volume Laterality AP Specimen 01/26/2021 8:06 AM 8:06 EST AM EST Narrative [facility] OR - 01/26/2021 8:06 AM EST Specimen requisition ordered. ??Separate Pathology report to follow Nathaniel Azevedo MD PATHOLOGY/CYTOLOGY ORDERABLE S Performing Organization Address City/State/[place] [address] Specimen to Pathology (01/26/2021 8:06 AM EST) Specimen Anatomical Collection Method Collection Time Receive d Time (Source) Location / / Volume Laterality AP Specimen 01/26/2021 8:06 AM 8:06 EST AM EST Narrative [facility] ORY - 01/26/2021 8:06 AM EST Specimen requisition ordered. ??Separate Pathology report to follow Nathaniel Azevedo MD PATHOLOGY/CYTOLOGY ORDERABLE S Performing Organization Address City/[facility]/ZIP Code Phon e Number [place] [phone] Specimen to Pathology (01/26/2021 8:06 AM EST) Specimen Anatomical Collection Method Collection Time Receive d Time (Source) Location / / Volume Laterality AP Specimen 01/26/2021 8:06 AM 8:06 EST AM EST Narrative [facility] - 01/26/2021 8:06 AM EST Specimen requisition ordered. ??Separate Pathology report to follow Nathaniel Azevedo MD PATHOLOGY/CYTOLOGY ORDERABLE S Performing Organization Address City/State/ZIP Code Phon e Number [address] UPPER GI ENDOSCOPY (01/26/2021 7:01 AM EST) Component Value Ref Test Analysis Performed At [facility] Range Method Time Signature UPPER GI [facility] ENDOSCOPY Endoscopy Procedure Date: 01/26/2021 7:01 AM ? Patient Name: Samy Patricio ? N: [id number] ? Date of : 1965 ? Age: 55 ? Order #: [id number] ? Instrument Name: [id number] ? Procedure: ? Upper GI endoscopy Indications: ? Dyspepsia Patient Profile: ? 55 yo M presents for EGD, referred by ? Dr. Jean with dyspepsia, hi story of ? H. pylori Providers: ? Nathaniel Azevedo, Clarissa willingham, ? Coal Crusher Operator, Zuleyka Sheppard Referring MD: ?Robinson Vazquez, Janki [...] anesthesiologist, the anesthe tist and ? the supply chain technician in the pre-pro cedure ? area [...] applicable - See Anesthesia documentation Impression: ?- Aurora-colored mucosa suspicious ? for short-segment Diaz's ? [...] I personally performed the entire procedure. ? Nathaniel Teresa Jolly, 01/26/2021 8:13:43 AM Number of Addenda: 0 Note Initiated On: 01/26/2021 7:01 AM Specimen (Source) Anatomical Collection Method Collection Time Re ceived Time Location / / Volume Laterality 01/26/2021 7:01 AM EST Janki Jean MD GENERAL SURGICAL ORDERABLES Performing Organization Address City/State/ZIP Code Phon e Number [place] documented in this encounter Visit Diagnoses Diagnosis Dyspepsia Dyspepsia and other specified disorders of function of stomach documented in this encounter Active and Recently Administered Medications Times are shown in EST. Continuous Medication Order 01/24/2021 01/25/2021 01/26/2021 lactated ringers infusion (CANCELED) 0736 (New Bag - Provider: Sumaya Agrawal CRNA)0810 (Anesthesia Volume Adjustment - Provider: Sumaya Agrawal CRNA) 100 mL/hr, Intravenous, CONTINUOUS, Star ting on Mon01/26/21 at 0745, Until Mon01/26/21 at 0851, Endoscopy (Day of Procedure) documented in this encounter Care Teams Second Operator Relationship Specialty Start Date End Date Robinson Vazquez APRN PCP - General Family Medicine 12/11/[address] [place] [address] documented as of this encounter
--- OUTSIDE RECORDS SUMMARY | 2021-12-17 01:01 | XMS_ITS | Encounter Summary ---
:1965 Author Organization [facility] [place] [address] Care Team Providers Name Role Phone Robinson Vazquez APRN Primary Care Provider Encounter Details Date Type Department Care Team Description 12/29/2020 Hospital Encounter XRay at [facility] Janki Jean Abdominal bloating [address] [facility] Dr Leslie MD [facility] [id number] [place] [phone] [place] [address] Social History Tobacco Use Types Packs/Day Years Used Date Current Every Day Smoker Cigarettes 2 Smokeless Tobacco: Never Used Alcohol Use Standard Drinks/Week Comments Yes 7 (1 standard drink = 0.6 oz pure alcoho l) Alcohol Habits Answer Date Recorded How often do you have a drink containing 4 or more times a w [place] 07/05/2018 alcohol? How many drinks containing alcohol do you have 10 or more 07/05/2018 on a typical day when you are drinking? How often do you have six or more drinks on one Daily or alfredito ost daily 07/05/2018 occasion? Comment: Not asked Sex Assigned at Date Recorded Not on file documented as of this encounter Medications at Time of Discharge Medication Sig Dispensed Refills Start Date End Date OneTouch Verio test strips TEST BLOOD GLUCOSE 0 0 06/23/2020 Strip TWICE A DAY OneTouch Verio Flex meter TEST BLOOD GLUCOSE 0 [facility] TWICE A DAY pbijondwnze-amwiqxfsn-iqbv 1 puff inhaled once a 0 nter [...] daily. Release 24 hr lancets 33 gauge [facility] Lancets [facility] 0 USE DIRECTED. Active aspirin 81 mg Tablet, Take 81 mg by mouth 0 08/27 Delayed Release (E.C.) Daily. glipiZIDE (GLUCOTROL) 5 mg Take 10 mg by mouth 2 4 11/15/2016 Tablet times daily (before meals). documented as of this encounter Plan of Treatment Upcoming Encounters Date Type Specialty Care Team Description 01/26/2022 Office Visit Ophthalmology Tania Gates , OD [facility] OPHTHALMOLOGY [place] [address] (Wo rk) Scheduled Procedures Name Priority [...] MORSELIZED (WRVU *) MODIFIER K2 [facility]ICAL - [place] STENOSIS & HNP & MYELOPATHY documented as of this encounter Procedures Procedure Name Priority Date/Time Associated Diagnosis Comme nts XR ABDOMEN 1 VIEW Routine 12/29/2020 3:19 PM Abdominal bloatin g Results for this EDT procedure are i n the results section. documented in this encounter Results XR Abdomen 1 view (Generic) (12/29/2020 3:19 PM EDT) Anatomical Region Laterality Modality Abdomen N/A Digital Radiography Specimen (Source) Anatomical Location Collection Method / Collectio n Time Received Time / Laterality Volume Narrative 12/29/2020 3:32 PM EDT EXAMINATION: XR ABDOMEN 1 VIEW (GENERIC) CLINICAL HISTORY: abdominal bloating and distention evaluate stool burden TECHNIQUE: Supine Abdomen, one view COMPARISON: CT abdomen pelvis, May 6 FINDINGS: LDAs (Lines/drains) & devices: Bowel gas pattern: The air-filled colon is not dilated. There are a few air-filled nondilated small bowel segmen ts. Free air: None, but detection limited on supine examination. Abnormal calcifications: None. Excreted contrast in nondilated ureter a nd collapsed urinary bladder. Findings suggest recent contrast imaging study. There are multiple LEFT upper quadrant s urgical ezekiel. Bones: No acute fracture. Impression 1. ??No intestinal dilatation 2. ??Recent contrast imaging study with a excreted contrast in collecting system and urinary bladder. Thank you for letting us participate in the care of this patient. ??If you are a health care provider and have any questi ons regarding this report, please contact the number below. ??For patients who have questions please contact the health caregiver services home that requested your imaging first. ? Electronically signed by: Jazmin Reed MD, [facility] ([phone]), at 12/29/2020 3:32 PM Procedure Note Jazmin Reed MD - 12/29/2020Formatt ing of this note might be different from the original. EXAMINATION: XR ABDOMEN 1 VIEW (GENERIC) CLINICAL HISTORY: abdominal bloating and distention evaluate stool burden TECHNIQUE: Supine Abdomen, one view COMPARISON: CT abdomen pelvis, May FINDINGS: LDAs (Lines/drains) & devices: Bowel gas pattern: The air-filled colon is not dilated. There are a few air-filled nondilated small bowel segmen ts. Free air: None, but detection limited on supine examination. Abnormal calcifications: None. Excreted contrast in nondilated ureter a nd collapsed urinary bladder. Findings suggest recent contrast imaging study. There are multiple LEFT upper quadrant s urgical ezekiel. Bones: No acute fracture. Impression 1. No intestinal dilatation 2. Recent contrast imaging study with a excreted contrast in collecting system and urinary bladder. Thank you for letting us participate in the care of this patient. If you are a health care provider and have any questi ons regarding this report, please contact the number below. For patients w ho have questions please contact the health caregiver services home that requested your imaging first. Electronically signed by: Jazmin Reed MD, [facility] ([phone]), at 12/29/2020 3:32 PM Janki Jean MD IMG DX ORDERABLES documented in this encounter Visit Diagnoses Diagnosis Abdominal bloating Flatulence, eructation, and gas pain documented in this encounter Care Teams Customer Service And Sales Consultant Relationship Specialty Start Date End Date Robinson Vazquez, ACTING MANAGER PCP - General Family Medicine 12/11/[address] [place] [address] [address] [place] [address] documented as of this encounter
--- OUTSIDE RECORDS SUMMARY | 2021-12-17 01:01 | XMS_ITS | Encounter Summary ---
:1965 Author Organization [facility] [place] [place] [address] Care Team Providers Name Role Phone Sae Marr MD Primary Care Provider Reason for Referral Consultation (Routine) - Specialty Diagnoses / Procedures Referred By Contact Refer red To Contact Cardiology Diagnoses ST elevation myocardial infarction involving right coronary artery Philip Johnson MD Peritz, David C, MD [address] [place] [address] Referral ID Status Reason Start Date Expiration Date Visits V isits Requested Authorized [id number] Consult, 08/07/2019 02/03/2020 1 1 Test & Treat onsultation (Routine) - Closed Specialty Diagnoses / Procedures Referred By Referred To Contact Contact Cardiac Rehabilitation Diagnoses ST elevation myocardial infarction (STEMI), unspecified artery Tariq Guerrero MD Cardiac Rehab, [address] [place] [id number] Phone: Phone: Referral ID Status Reason Start Date Expiration Date Visits V isits Requested Authorized [id number] Closed Consult, 08/07/2019 02/03/2020 36 36 Test & Treat Reason for Visit Reason Comments Hospital Transfer Chest Pain Auth/Cert Specialty Diagnoses / Procedures Referred By Contact Refer red To Contact Diagnoses STEMI (ST elevation myocardial infarction) ST elevation myocardial infarction (STEMI), unspecified artery STEMI Referral ID Status Reason Start Date Expiration Date Visits Requ ested Visits Authorized [id number] 1 1 Encounter Details Date Type Department Care Team Description 08/06/2019 - Hospital Encounter Cardiac Special Aleena Espino MD [facility] [place] [address] ST elevation myocardial infarction (STEM I), unspecified artery; 08/07/2019 Care Unit Tariq Escobedo MD [facility] [place] [address] ST elevation myocardial infarction invol ving [place] [id number] Social History Tobacco Use Types Packs/Day Years Used Date Current Every Day Smoker Cigarettes 1 Smokeless Tobacco: Never Used Alcohol Use Standard Drinks/Week Comments Yes 7 (1 standard drink = 0.6 oz pure alcoho l) Alcohol Habits Answer Date Recorded How often do you have a drink containing 4 or more times a w [place] 07/05/2018 alcohol? How many drinks containing alcohol [...] Sign Reading Time Taken Comments Blood Pressure 128/90 08/07/2019 5:12 PM EDT Pulse 77 08/07/2019 5:12 PM EDT Temperature 36.9 ??C (98.4 ??F) 08/07/2019 11:26 AM EDT Respiratory Rate 16 08/07/2019 5:12 PM EDT Oxygen Saturation 95% 08/07/2019 5:12 PM EDT Inhaled Oxygen Concentration - - Weight 117.6 kg (259 lb 4.2 oz) 08/07/2019 6:05 AM EDT Height - - Body Mass Index 35.16 07/04/2018 8:37 PM EDT documented in this encounter Discharge Summaries Drew Damon MD - 08/07/2019 5:42 PM EDT Cardiology - Discharge Summary Patient Name: Samy Patricio Jr. Patient Age: 53 y.o. Birthdate: 1965 Admit date: 08/06/2019 Discharge date and time: 08/07/2019 Attending Physician: Tariq Guerrero MD Follow-up Recommendations for Providers: 1. PRIMARY CARE - SAE MARR MD, August - [[phone]] - Please follow up with patient regarding his recent hospitalization for Inferior STEMI, s/p EDEN to RCA. - Please assess when appropriate to initiate Lisinopril; recommend BMP in the next 5-7 days to ensure that renal function is stable. - Please continue to relationship counselor regarding smoking cessation; he has been discharged with a Nicotine Patch. - Please consider referral to Sleep Medicine for Sleep Study; patient noted to have 3 L QHS oxygen requirement due to episodic desaturations. - LVEDP was 21 on C - please assess need for maintenance diuretic. - Please note that patient left hospital AMA on 08/07/19. 2. CARDIOLOGY - DR. YULIYA GTZ, August: - Please follow up with patient regarding his recent hospitalization for Inferior STEMI, s/p EDEN to RCA. - Patient has been discharged on ASA & Prasugrel as DAPT. - Please assess when appropriate to initiate Lisinopril; recommend BMP in the next 5-7 days to ensure that renal function is stable. Intent was to initiate on 08/08/19 if renal function stable but patient left AMA on 08/07/19. - Please follow up with patient regarding smoking cessation; he has been discharged with a Nicotine Patch. - LVEDP was 21 on [facility] - please assess need for maintenance diuretic. - Please note that patient left hospital AMA on 08/07/19. Discharge Diagnoses (Hospital Problems) and Secondary Diagnoses (Chronic Problems): Active Hospital Problems Diagnosis ??? ST elevation myocardial infarction involving right coronary artery ??? History of tobacco use ??? Gastroesophageal reflux disease without esophagitis ??? Type 2 diabetes mellitus without complication, without long-term current use of insulin ??? Uncomplicated alcohol dependence ??? CARLOTA (obstructive sleep apnea) Resolved Hospital Problems No resolved problems to display. Procedures/Cardiac Studies: 1. Cardiac Catheterization, 08/06/19 (formal report pending): Preoperative diagnosis: STEMI Postoperative diagnosis: STEMI, treated with 1 EDEN to proximal RCA Recommend: 1. Received plavix in the setting of lytics. Discussed ticagrelor with the patient, could not affordin the past. Prasugrel would be the best option, as this is generic and has improved data in ACS compared to ticagrelor or plavix, reducing stroke, ID and (NEJM 2019). ?? Give plavix 75 mg this morning. Then, tomorrow (08/06), load with prasugrel [address] and then 10 mg daily for 1 year with asa 81 mg. ?? Please call local pharmacy today for patient so they can have prasugrel ready there by discharge (sometimes pharmacies will need 24 hours to get it). ?? 2. Risk factor modification per primary team. ?? Procedure(s) (LRB): CARDIAC CATHETERIZATION (N/A) ?? Access: Radial provided good support for procedure. 6 Fr RRA with TR band in place, good hemostasis. The patient tolerated the procedures smoothly and was transferred from the cardiac catheterization lab to the next level of care in stable condition, without pain. No evident early complications. Results discussed with service fellow and with the patient and their family. A time-out was conducted prior to the start of the procedure to verify the correct patient and procedure, procedure location, and all relevant critical information. 2. TTE, 08/06/19: 1. The left ventricular chamber size, wall [...] from 07/14/06, there is no significant change. History of Presentation: Mr. Samy Patricio is a 53 year male is a PMHx of CAD (s/p NSTEMI 08/2017 s/p EDNE to RCA and LCx), DM, HTN, HLD, Diaz's esophagus, chronic back pain, and alcohol and tobacco use who developed persistent chest pain and syncope found to have an inferior STEMI. ?? Patient has chronic angina that occurs randomly several times a week, not necessarily associated with exertion. Today he noted that he was having chest pain with any type of exertion. The chest pain radiated to his jaw and was associated with SOB, which is not characteristic of his normal chest pain. He eventually became diaphoretic. He then had 2 syncopal episodes at home when sitting up from a lying position lasting about 45 seconds each. He lost consciousness during these episodes but did not hithis head. The syncopal episodes prompted his to call 911. Per the light rail train operator's instructions he took SLN x3, but did not experience any relief of symptoms. ?? EMS arrived and noted his heart rate to be in the 30s with blood pressures 60s/30s. He was transcutaneously paced en route to [facility]. EKG at [facility] showed STEs in the inferior leads with reciprocal changesin the lateral leads. Dopamine was initiated, but he remained hypotensive with SBPs in the 60s-80s. Initial plan was for intubation and initiation of epinephrine. The patient was given full dose aspirin 324mg, plavix 300mg, TNK 50mg, and bolused and started on a heparin drip. Post lytic therapy the patient's STEs normalized and he was more alert and responsive, as such intubation was deferred. He wastransitioned form dopamine to epinephrine. ?? He was transferred to the [facility] ED for evaluation. On arrival to [facility] he had continued chest pain, but his EKG changes had resolved. He was on 1.5 of epi with heart rates in the 80s and blood pressures in the 110s/50s. He was taken immediately to the label sewer where he had a EDEN placed to his proximal RCA. He was weaned off of epinephrine in the label sewer and transferred to the CSCU. ?? In the CSCU the patient is chest pain free. He is hemodynamically stable with HRs 80s and BPs 120s/70s. ?? The patient had an NSTEMI in 08/2017, at that time he has EDEN to the RCA and LCx. Since then he has had chronic angina that occurs randomly several times per week both at rest and with exertion. His chest pain usually goes away after taking 4-6 SLN. Patient endorses PND, orthopnea, no swelling in his legs, no weight gain or increasing abdominal girth. Hospital Course: Mr. Patricio's hospitalization may be summarized as follows: # Inferior STEMI [s/p EDEN to RCA, s/p TNK] # Hx of ASCVD [s/p NSTEMI - 2017, EDEN to RCA & LCX; LVEDP: 21] Mr. Samy Patricio is a 53 year male is a PMHx of CAD (s/p NSTEMI 08/2017 s/p EDEN to RCA and LCx), DM, HTN, HLD, Diaz's esophagus, chronic back pain, and alcohol and tobacco use who developed persistent chest pain and syncope found to have an inferior STEMI initially bradycardic and hypotensive requiring the initiation of epinephrine, s/p revascularization with EDEN to RCA with resolved pressor requirement. The patient was initially loaded with plavix given that he was treated with lytic therapy, which was subsequently transitioned to Prasugrel therapy. The patient's dual pressor support was promptly weaned following revascularization; given recent shock physiology, BB and ACEi therapy were slowly introduced. LVEDP of 21 was noted in the absence of overt clinical heart failure sequelae. The patient received 20 mg IV Lasix and remained euvolemic throughout his hospitalization. The patient insisted on imminent discharge on 08/08/19, for which he was optimized on GDMT promptly thereafter. The patient stated his clear intent and decision to leave the hospital against medical advice on 08/07/2019. #Acute HFpEF with pulmonary edema, s/p STEMI - Treated with revascularization EDEN to RCA & IV Lasix. - Resolved at discharge. # Hx of Type II Diabetes Mellitus The patient was maintained on a sensitive ISS. Home oral anti-hyperglycemics were held. Hgb A1c was 6.3%, indicating well-controlled T2DM. # Tobacco Use Disorder # Hx of Moderate ETOH Dependence, w/o intoxication, w/withdrawal The patient was provided with NRT, counseled regarding smoking cessation and the Tobacco Team was consulted. The patient was transiently initiated on CIWA Protocol with addition of Thiamine/Folic Acid supplementation; he had no evidence of complicated withdrawal. ?? # GERD The patient was continued on protonix and Sucralfate. Important Studies and Lab Data: Admission Labs: Discharge Labs: Recent Labs 08/07/19 0553 08/06/19 0535 WBC 7.8 8.6 HGB 14.5 13.4* PLATELET 181 192 Recent Labs 08/07/19 0553 08/06/19 1406 08/06/19 0535 NA 141 140 138 K 4.1 4.4 4.5 CL 100 101 103 CO2 30 26 24 BUN 14 12 12 CREATININE 1.43 1.23 1.26 GLUCOSE -- 108 250* Recent Labs 08/07/19 0553 08/06/19 1406 08/06/19 0535 CALCIUM 8.9 9.3 8.6 MAGNESIUM 0.86 0.82 -- Recent Labs 08/07/19 1205 08/07/19 0553 08/07/19 0028 08/06/19 1813 CK 133 168 220* 301* TROPONINT -- 0.50* 0.62* 0.84* No results for input(s): AST, ALT, ALKPHOS, BILITOT, BILIDIR in the last 168 hours. No results for input(s): INR in the last 168 hours. Lab Results Component Value Date CHLPL 89 08/06/2019 HDL 38 08/06/2019 CHOLHDL 2.3 08/06/2019 TRIG 89 08/06/2019 LDLCHOL 33 08/06/2019 Recent Labs 08/06/19 0535 HA1C 6.3* Studies: As above Pending Studies and Lab Data: N/A Discharge Conditions/Prognosis: Stable Discharge to: Home Discharge Medications: Your Medications New Medications Dose Details folic acid 1 mg Tab Commonly known as: Folvite Take 1 tablet by mouth daily. Start taking on: August 08, 2019 1,000 mcg Quantity: 90 tablet Refills: 3 nicotine 21 mg/24 hr Pt24 Commonly known as: NICODERM CQ Change 2 patches on the skin daily. Start taking on: August 08, 2019 2 patch Quantity: 28 patch Refills: 0 prasugreL 10 mg Tab Commonly known as: Effient Take 1 tablet by mouth daily. Start taking on: August 08, 2019 10 mg Quantity: 30 tablet Refills: 3 sucralfate 100 mg/mL Susp Commonly known as: Carafate Take 10 mLs by mouth every 6 hours. 1 g Quantity: 420 mL Refills: 0 thiamine Commonly known as: Vitamin B1 Take 1 tablet by mouth daily. Start taking on: August 08, 2019 100 mg Quantity: 30 tablet Refills: 3 Continued medications with new dosing Dose Details atorvastatin 80 mg Tab Commonly known as: Lipitor Take 1 tablet by mouth every evening. What changed: ?? medication strength ?? how much to take ?? when to take this 80 mg Quantity: 90 tablet Refills: 3 metoprolol succinate XL 100 mg Tablet sr Commonly known as: Toprol-XL Take 1 tablet by mouth daily. What changed: ?? medication strength ?? how much to take ?? when to take this 100 mg Quantity: 30 tablet Refills: 3 pantoprazole EC 40 mg Tbec Commonly known as: Protonix Take 1 tablet by mouth 2 times daily. What changed: when to take this 40 mg Quantity: 90 tablet Refills: 3 Continued medications, unchanged Dose Details aspirin EC 81 mg Tbec Take 81 mg by mouth Daily. 81 mg Refills: 0 glipiZIDE 5 mg Tab Commonly known as: Glucotrol Take 10 mg by mouth 2 times daily (before meals). 10 mg Refills: 4 lancets 33 gauge Misc Lancets MISC USE DIRECTED. Active Refills: 0 metFORMIN XR 500 mg Tablet sr Commonly known as: Glucophage XR Take 1,000 mg by mouth 2 times daily. 1,000 mg Refills: 3 nitroGLYcerin 0.4 mg Subl Commonly known as: Nitrostat PLACE 1 TABLET UNDER TONGUE EVERY 5 MINUTES DIRECTED Refills: 3 STOPPED Medications isosorbide mononitrate CR 120 mg Tablet sr Commonly known as: Imdur lisinopriL 10 mg Tab Commonly known as: Prinivil;Zestril Updated Allergies/ADRs: Allergies Allergen Reactions ??? Venlafaxine ??? Doxycycline Nausea And Vomiting ??? Other [Unclassified Drug] Nausea And Vomiting Had an allergic reaction to an antibiotic but does not know the name Future Appointments and Orders Future Appointments and Orders Future Appointments Provider Department Dept Phone 02/11/2020 8:40 AM Tania Gates, OD; DILATION AND TEST, RAMIRO; TECHRAMIRO Ophthalmology at [facility] Arrive at: [facility] [phone] Future Orders Complete By Expires Referral to Cardiac Rehab [[id number] Custom] As directed Process Instructions: If no progress note charted, please enter Clinical details in comments. Scheduling Instructions: Questions: My question or request is: STEMI. Cardiac rehab at [facility]. Referral to Cardiology [REF12 Custom] As directed Process Instructions: If no progress note charted, please enter Clinical details in comments. Scheduling Instructions: Comments: Patient was not discharged on lisinopril due to 1)he decided to leave AMA and 2)soft BP. Questions: My question or request is: Post-hospital follow up for inferior STEMI s/p EDEN to RCA General Instructions Congratulations for quitting smoking! Your quit date for quitting smoking is 08/06/2019 ?? You have chosen to quit smoking using Nicotine patches daily and lozenges as needed. ?? Nicotine patch instructions: Begin using 2 21 mg nicotine patches (42 mg) daily for 4 weeks then, Use the 21 mg nicotine patches daily for 2 weeks then, Decrease to the 14 mg patches daily for 2 weeks then, Decrease to the 7 mg patches daily for 2 weeks. ?? If at any time when you decrease the dose you feel an increase in cravings to smoke you may go back to the higher dose for another 2 weeks and then try to decrease the dose again. Do not hesitate to call if you have questions about this or are struggling with cravings or withdrawal symptoms. Place the patch on your skin in an area that has a minimal amount of hair, typically between the neck and waist or upper arms. Avoid placing it over scars or tattoos. Change the place where you put it on your skin daily. Remove the patch each morning and replace with a new patch. Fold the patch in half, with the sticky sides in and dispose of it safely, keeping it out of reach of children or pets. Some patients experience nightmares or bad dreams on the patch. If this happens you should remove the patch at bedtime and just replace it each morning. ?? The nicotine patch releases a constant amount of nicotine in the body. The nicotine dissolves right through the skin and enters the body. Less nicotine is obtained through the patch than in cigarettes.The patch does NOT contain all the tars and poisonous gases that are found in cigarettes. ?? Side effects from wearing the patch can include: headaches, dizziness, upset stomach, weakness, blurred vision, vivid dreams, mild itching and burning on the skin, and diarrhea. ?? Wearing the nicotine patch decreases the chances of suffering from several of the major smoking withdrawal symptoms such as tenseness, irritability, drowsiness and lack of concentration. ?? The nicotine patch can be combined with other Nicotine Replacement Therapy products such as Nicotinegum or lozenges. Ask your healthcare provider about combination therapy to increase your chances of successfully quitting tobacco for good! ?? The US Food and Drug Administration has recently released a statement that there are no significant risks associated with the use of Nicotine Replacement Therapy products for longer than the labeled number of weeks of use. ?? If you are still having strong cravings to smoke or are struggling to quit completely while using the Nicotine patch talk with your healthcare provider for additional help. ?? References: Treating Tobacco Use and Dependence, Clinical Practice Guideline 2008 Update, U.S. Department of Health and Human Services, July 2007 Nicotine lozenge instructions: Use the 4 mg lozenges as soon as you wake up, 30 minutes before mealsand at bedtime at a minimum. ?? Nicotine lozenges must be used properly in order to be effective. Nicotine from the lozenge is absorbed through the mucous membranes in your mouth at a certain acidity or pH level. Therefore do not eator drink anything but water for 15 minutes prior to or during use. ?? Directions: Place the nicotine lozenge on the tongue or between the cheek and the jaw. Allow the lozenge to dissolve. Do not bite, chew or swallow whole or in pieces. Do not ???work?? the lozenge likea hard candy or you may create too much saliva and swallow this extra liquid which may upset your stomach. The most common side effects from Nicotine lozenges are nausea, hiccups and heartburn. This can be reduced by following the instructions for proper use. ?? Nicotine lozenges come in two strengths, 2 mg and 4 mg. You should use the 2 mg lozenge if you smokeyour first cigarette more than 30 minutes after waking. You should use the 4 mg lozenge if you smokeyour first cigarette less than 30 minutes after waking. You can use up to 20 lozenges a day. ?? Nicotine lozenges can be combined with Nicotine patches for increased chances of successfully quitting tobacco for good! ?? The US Food and Drug Administration has recently released a statement that there are no significant risks associated with the use of Nicotine Replacement Therapy products for longer than the labeled number of weeks of use. ?? References: Treating Tobacco Use and Dependence, Clinical Practice Guideline 2008 Update, U.S. Department of Health and Human Services, July 2007 Patient Instructions Patient Instructions on Discharge to Home Why you were hospitalized: You had a heart attack, which was caused by a blockage in one of your heart arteries. This was fixedwith a stent that was placed during a cardiac catheretization. Because you had this procedure, you shouldn't lift anything greater than 10 lbs for the next week and nothing greater than 20 lbs for 2 wee ks. After that time you may go back to regular activity and work. Call your doctor if your Right groin pain gets worse, or you develop swelling or redness in that area. Also, call your doctor if you develop sudden chest pain or shortness of breath, especially chest pain that does not go away with nitroglycerin. It is important that you take your aspirin 81mg daily forever and clopidogrel 75mg daily for at least 1 year. Do not miss any doses of these medications! New Medications: Aspirin: this is a platelet inhibitor that will help prevent clot build up in your arteries, as wellas in the stent that was placed. Continue taking 81mg daily indefinitely. Prasugrel: this is a second platelet inhibitor that will help prevent clot build up in the stent that was placed. It is very important that you take this medication every day at least for one year to help keep your stent open. Follow up with your doctor before stopping this medication. Atorvastatin (lipitor): this is a cholesterol-lowering medication that helps prevent build up of plaque in your arteries. Take this every evening. Metoprolol (toprol): this is a beta geronimo, that helps protect your heart. Take this every day. Nitroglycerin: this is a medication that can be placed under your tongue as needed for chest pain. If you experience chest pain, especially that similar to what you had before you were admitted to the hospital, sit down and place one tab under your tongue (it may make you dizzy, so sitting down beforetaking this is safest). If your chest pain does not improve, call your doctor. When to call your doctor: - Chest pain, worsening shortness of breath, fatigue with usual exertion, or new rest/night time symptoms. - Weigh yourself daily and record; if you note an increase of more than 2-3 pounds in 2 days, or 5 pounds over a week, contact your health care provider. - If you become short of breath, cannot lie down to sleep, or have swelling in your legs/ankles or abdomen, contact your health care provider. - Call if you have reduced urination during the day or increased urination at night. - Call for signs of increased wound drainage, redness, swelling, or increased pain at the site of your cardiac cath. - Call if you develop a temp >100.5 If you have non-emergent questions between now and the time of your follow up appointments: During 8am-5pm Monday through Monday call [phone] to speak with a nurse in the cardiology clinic All other times call [phone] and ask to speak to the game artist global professional. Activity level: - No heavy lifting (more than five pounds) for 48 hours; no more than 10 pounds for one week. - You may return to work in 1 week. Use common sense. Don't exhaust yourself. - No hunting, skiing, jogging, snow shoveling, snowmobiling, lawn mowing, swimming, golf or tennis until after your return appointment with your family doctor. - Do not ride motorcycles, tractors or horses until cleared by your doctor. Diet: - Heart healthy: low salt, low fat, low concentrated sweets. Remember to avoid added salt, canned foods, processed foods (ie hot dogs, sausage, cold meats), and foods naturally high in salt, such as potato chips or pizza. Driving: - Per your routine after [address] if you feel dizzy, light headed, or are taking narcotic medications (ie/ Oxycodone, Morphine, Dilaudid, etc). Shower/Bath: - You may shower 24 hours after cardiac catheterization. - You may not sit in water for 5 days (tub bath, hot tub or pool). Wound Care: - Cath site dressing may be removed in 24 hours. Site may be washed with soap/water. A dressing doesnot need to be reapplied unless irritation occurs with underclothes. If irritation occurs, apply clean band-aid daily. Exercise: - Exercise 5-7 days per week as tolerated with gradual increase to 30 minutes per day. Smoking cessation: - If you are currently a smoker, you are strongly urged to stop smoking! Smoking increases the severity and incidence of heart disease, and is a risk factor for cancer and emphysema. Your health care provider can provide specific measures to assist you, including nicotine supplements, anti-anxiety meds, and support groups in your community. Home oxygen therapy: N/A Arrangements for VNA/home care: N/A Follow up Appointments: Future Appointments Date Time Provider Department Center 02/11/2020 8:40 AM Tania Gates, OD [facility] [place]-Up Appointments Date and Time Provider and Specialty Location August 18 8:40am [facility] September 04 YULIYA GTZ MD [place], [place] Dip Unit Operator: Yuliya Gtz MD at [phone] PCP: Sae Marr MD at [phone] Your Primary Care Provider: Sae Marr MD [address] [place] [address] [address] For questions regarding issues relating to your hospitalization on the Hospital Medicine Service, please contact your inpatient physician through the [facility] [phone]. Issues after hours and on weekends will be handled by the Hospitalist staff on-call. For questions regarding this document or issues relating to this hospitalization on the Medical Service, please contact your inpatient physician through the [facility] . Issues after hours and on weekends will be handled by the Dip Unit Operator staff on-call. documented in this encounter Discharge Instructions Discharge InstructionsBryn Guevara RN - 08/06/2019 2:49 PM EDT Congratulations for quitting smoking! Your quit date for quitting smoking is 08/06/2019 ?? You have chosen to quit smoking using Nicotine patches daily and lozenges as needed. ?? Nicotine patch instructions: Begin using 2 21 mg nicotine patches (42 mg) daily for 4 weeks then, Use the 21 mg nicotine patches daily for 2 weeks then, Decrease to the 14 mg patches daily for 2 weeks then, Decrease to the 7 mg patches daily for 2 weeks. ?? If at any time when you decrease the dose you feel an increase in cravings to smoke you may go back to the higher dose for another 2 weeks and then try to decrease the dose again. Do not hesitate to call if you have questions about this or are struggling with cravings or withdrawal symptoms. Place the patch on your skin in an area that has a minimal amount of hair, typically between the neck and waist or upper arms. Avoid placing it over scars or tattoos. Change the place where you put it on your skin daily. Remove the patch each morning and replace with a new patch. Fold the patch in half, with the sticky sides in and dispose of it safely, keeping it out of reach of children or pets. Some patients experience nightmares or bad dreams on the patch. If this happens you should remove the patch at bedtime and just replace it each morning. ?? The nicotine patch releases a constant amount of nicotine in the body. The nicotine dissolves right through the skin and enters the body. Less nicotine is obtained through the patch than in cigarettes.The patch does NOT contain all the tars and poisonous gases that are found in cigarettes. ?? Side effects from wearing the patch can include: headaches, dizziness, upset stomach, weakness, blurred vision, vivid dreams, mild itching and burning on the skin, and diarrhea. ?? Wearing the nicotine patch decreases the chances of suffering from several of the major smoking withdrawal symptoms such as tenseness, irritability, drowsiness and lack of concentration. ?? The nicotine patch can be combined with other Nicotine Replacement Therapy products such as Nicotinegum or lozenges. Ask your healthcare provider about combination therapy to increase your chances of successfully quitting tobacco for good! ?? The US Food and Drug Administration has recently released a statement that there are no significant risks associated with the use of Nicotine Replacement Therapy products for longer than the labeled number of weeks of use. ?? If you are still having strong cravings to smoke or are struggling to quit completely while using the Nicotine patch talk with your healthcare provider for additional help. ?? References: Treating Tobacco Use and Dependence, Clinical Practice Guideline 2008 Update, U.S. Department of Health and Human Services, July 2007 Nicotine lozenge instructions: Use the 4 mg lozenges as soon as you wake up, 30 minutes before mealsand at bedtime at a minimum. ?? Nicotine lozenges must be used properly in order to be effective. Nicotine from the lozenge is absorbed through the mucous membranes in your mouth at a certain acidity or pH level. Therefore do not eator drink anything but water for 15 minutes prior to or during use. ?? Directions: Place the nicotine lozenge on the tongue or between the cheek and the jaw. Allow the lozenge to dissolve. Do not bite, chew or swallow whole or in pieces. Do not ???work?? the lozenge likea hard candy or you may create too much saliva and swallow this extra liquid which may upset your stomach. The most common side effects from Nicotine lozenges are nausea, hiccups and heartburn. This can be reduced by following the instructions for proper use. ?? Nicotine lozenges come in two strengths, 2 mg and 4 mg. You should use the 2 mg lozenge if you smokeyour first cigarette more than 30 minutes after waking. You should use the 4 mg lozenge if you smokeyour first cigarette less than 30 minutes after waking. You can use up to 20 lozenges a day. ?? Nicotine lozenges can be combined with Nicotine patches for increased chances of successfully quitting tobacco for good! ?? The US Food and Drug Administration has recently released a statement that there are no significant risks associated with the use of Nicotine Replacement Therapy products for longer than the labeled number of weeks of use. ?? References: Treating Tobacco Use and Dependence, Clinical Practice Guideline 2007 Update, U.S. Department of Health and Human Services, July 2007 Patient InstructionsTrDrew roberts MD - 08/07/2019 11:57 AM EDT Patient Instructions on Discharge to Home Why you were hospitalized: You had a heart attack, which was caused by a blockage in one of your heart arteries. This was fixedwith a stent that was placed during a cardiac catheretization. Because you had this procedure, you shouldn't lift anything greater than 10 lbs for the next week and nothing greater than 20 lbs for 2 wee ks. After that time you may go back to regular activity and work. Call your doctor if your Right groin pain gets worse, or you develop swelling or redness in that area. Also, call your doctor if you develop sudden chest pain or shortness of breath, especially chest pain that does not go away with nitroglycerin. It is important that you take your aspirin 81mg daily forever and clopidogrel 75mg daily for at least 1 year. Do not miss any doses of these medications! New Medications: Aspirin: this is a platelet inhibitor that will help prevent clot build up in your arteries, as wellas in the stent that was placed. Continue taking 81mg daily indefinitely. Prasugrel: this is a second platelet inhibitor that will help prevent clot build up in the stent that was placed. It is very important that you take this medication every day at least for one year to help keep your stent open. Follow up with your doctor before stopping this medication. Atorvastatin (lipitor): this is a cholesterol-lowering medication that helps prevent build up of plaque in your arteries. Take this every evening. Metoprolol (toprol): this is a beta geronimo, that helps protect your heart. Take this every day. Nitroglycerin: this is a medication that can be placed under your tongue as needed for chest pain. If you experience chest pain, especially that similar to what you had before you were admitted to the hospital, sit down and place one tab under your tongue (it may make you dizzy, so sitting down beforetaking this is safest). If your chest pain does not improve, call your doctor. When to call your doctor: - Chest pain, worsening shortness of breath, fatigue with usual exertion, or new rest/night time symptoms. - Weigh yourself daily and record; if you note an increase of more than 2-3 pounds in 2 days, or 5 pounds over a week, contact your health care provider. - If you become short of breath, cannot lie down to sleep, or have swelling in your legs/ankles or abdomen, contact your health care provider. - Call if you have reduced urination during the day or increased urination at night. - Call for signs of increased wound drainage, redness, swelling, or increased pain at the site of your cardiac cath. - Call if you develop a temp >100.5 If you have non-emergent questions between now and the time of your follow up appointments: During 8am-5pm Monday through Monday call [phone] to speak with a nurse in the cardiology clinic All other times call [phone] and ask to speak to the game artist global professional. Activity level: - No heavy lifting (more than five pounds) for 48 hours; no more than 10 pounds for one week. - You may return to work in 1 week. Use common sense. Don't exhaust yourself. - No hunting, skiing, jogging, snow shoveling, snowmobiling, lawn mowing, swimming, golf or tennis until after your return appointment with your family doctor. - Do not ride motorcycles, tractors or horses until cleared by your doctor. Diet: - Heart healthy: low salt, low fat, low concentrated sweets. Remember to avoid added salt, canned foods, processed foods (ie hot dogs, sausage, cold meats), and foods naturally high in salt, such as potato chips or pizza. Driving: - Per your routine after [address] if you feel dizzy, light headed, or are taking narcotic medications (ie/ Oxycodone, Morphine, Dilaudid, etc). Shower/Bath: - You may shower 24 hours after cardiac catheterization. - You may not sit in water for 5 days (tub bath, hot tub or pool). Wound Care: - Cath site dressing may be removed in 24 hours. Site may be washed with soap/water. A dressing doesnot need to be reapplied unless irritation occurs with underclothes. If irritation occurs, apply clean band-aid daily. Exercise: - Exercise 5-7 days per week as tolerated with gradual increase to 30 minutes per day. Smoking cessation: - If you are currently a smoker, you are strongly urged to stop smoking! Smoking increases the severity and incidence of heart disease, and is a risk factor for cancer and emphysema. Your health care provider can provide specific measures to assist you, including nicotine supplements, anti-anxiety meds, and support groups in your community. Home oxygen therapy: N/A Arrangements for VNA/home care: N/A Follow up Appointments: Future Appointments Date Time Provider Department Center 02/11/2020 8:40 AM Tania Gates, OD [facility] [place] Appointments Date and Time Provider and Specialty Location August 18 8:40am [facility] September 04 YULIYA GTZ MD [place], [place] Dip Unit Operator: Yuliya Gtz MD at [phone] PCP: Sae Marr MD at [phone] Your Primary Care Provider: Sae Marr MD [address] [place] [id number] For questions regarding issues relating to your hospitalization on the Hospital Medicine Service, please contact your inpatient physician through the [facility] [phone]. Issues after hours and on weekends will be handled by the Hospitalist staff on-call. AttachmentsThe following attachments cannot be sent through Care Everywhere. Smoking: Stopping (Macedonian)Smoking: Anti-Smoking Medication: Deciding About (Macedonian)Smoking Cessation: Health Benefits: General Info (Macedonian)Cardiac Rehabilitation (Macedonian)Heart Attack: Medicine for Secondary Prevention (Macedonian)PCI (Percutaneous Coronary Intervention): Post-op (Macedonian)documented in this encounter Medications at Time of Discharge Medication Sig Dispensed Refills Start Date End Date insulin needles, 0 03/19/2019 disposable, (BD Ultra-Fine Mini Pen Needle) 31 gauge x 3/16 Needle atorvastatin (Lipitor) 80 Take 1 tablet by 90 tablet 3 07/12 mg Tablet mouth every evening. pantoprazole EC Take 1 tablet by 90 tablet 3 08/07/2019 (Protonix) 40 mg Tablet, mouth 2 times daily. Delayed Release (E.C.) folic acid (Folvite) 1 mg [...] Delayed Release (E.C.) Daily. glipiZIDE (GLUCOTROL) 5 Take 10 mg by mouth 4 07/2016 mg Tablet 2 times daily (before meals). prasugreL (Effient) 10 mg Take 1 tablet by 30 tablet 3 07/1212/28/2020 Tablet mouth daily. sucralfate (Carafate) 100 Take 10 mLs by mouth 420 mL 0 08/07/2019 12/28/2020 mg/mL Suspension every 6 hours. documented as of this encounter Progress Notes Maureen Carrillo RN - 08/07/2019 6:13 PM EDT Pt left AMA after education and concerns provided. A+O throughout shift. No complaints of chest painor sob. VSS, see flowsheets. NSR on tele, see report. Ambulating with staff, no complaints. Blood sugar covered throughout shift and patient educated to resume home medication regimen. Education and discharge teaching provided. Patient and voiced understanding and importance to change lifestyle. IVs and tele dc'd. AMA form signed and in chart. DC to home with . Drew Damon MD - 08/07/2019 7:15 AM EDT Inpatient Cardiology Progress Note Patient Name: Samy Patricio Jr. Service: S2 Responsible Attending: Tariq Guerrero MD Reason for continued hospitalization: Evaluation and management of STEMI Active Problems: Active Hospital Problems Diagnosis ??? Gastroesophageal reflux disease without esophagitis [...] as well as Thiamine/Folic Acid supplementation. ??? 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 History of tobacco use - 2 PPD smoker since Age 13 - Contemplative/Action Stage - NRT provided - Tobacco Cessation Team Consulted Resolved Hospital Problems No resolved problems to display. Interval History: Day 2 of hospital stay s/p EDEN to RCA for STEMI. - Diuresed with 20mg IV lasix with large urine output. - Started on nicotine patch & lozenge. - 1x of chest pain - esr & crp wnl. Patient got baking soda and felt better, thinking that was his gerd. Review of Systems: Review of Systems Constitutional: Negative for activity change, diaphoresis, fatigue and fever. HENT: Negative. Respiratory: Negative for chest tightness, shortness of breath and wheezing. Cardiovascular: Negative for chest pain, palpitations and leg swelling. Gastrointestinal: Negative for blood in stool, diarrhea and nausea. Genitourinary: Negative. Telemetry: HR: sinus rhythm Meds: Scheduled Meds: ??? metoprolol tartrate 25 mg Oral Q6H YAW ??? thiamine 100 mg Oral Daily ??? folic acid 1 mg Oral Daily ??? pantoprazole EC 40 mg Oral BID ??? LORazepam 2 mg Oral Q8H Or ??? LORazepam 2 mg Intravenous Q8H Or ??? LORazepam 2 mg Intramuscular Q8H ??? aspirin EC 81 mg Oral Daily ??? atorvastatin 80 mg Oral QPM ??? sodium chloride 0.9 % (flush) 5 mL Intravenous BID ??? heparin (Porcine) 5,000 Units Subcutaneous Q8H YAW ??? insulin lispro 1-4 Units Subcutaneous Q4H YAW ??? sucralfate 1 g Oral Q6H YAW ??? [START ON 08/08/2019] prasugreL 10 mg Oral Daily ??? nicotine 2 patch Transdermal Daily And ??? Patch Verification 2 patch Transdermal BID And ??? nicotine 2 patch Transdermal Daily Continuous Infusions: PRN Meds:LORazepam OR LORazepam OR LORazepam, sodium chloride 0.9 % (flush), lidocaine, nitroGLYcerin, Glucose 40% oral gel OR dextrose 10% OR glucagon (human recombinant), nicotine polacrilex Physical Exam: Vital Signs: Last value Range last 24 hrs Temperature Temp: 36.9 ??C (98.4 ??F) Temp: [36.8 ??C (98.2 ??F)-37.7 ??C (99.9 ??F)] Heart Rate Heart Rate: 72 Heart Rate: [72-90] Blood Pressure BP: 115/74 BP: (107-122)/(65-74) Respiratory Rate Resp: 15 Resp: [15-25] SpO2 SpO2: 96 % SpO2: [89 %-96 %] Physical Exam Constitutional: He is oriented to person, place, and time. He appears well- developed. No distress. HENT: Head: Normocephalic and atraumatic. Neck: Neck supple. Cardiovascular: Normal rate and regular rhythm. Exam reveals no gallop and no friction rub. No murmur heard. Pulmonary/Chest: Effort normal. He has rales (bilaterally). Abdominal: Soft. Musculoskeletal: General: No edema. Neurological: He is alert and oriented to person, place, and time. Skin: Skin is warm and dry. Lab Comments: Recent Labs 08/07/19 0553 08/06/19 0535 WBC 7.8 8.6 HGB 14.5 13.4* HCT 43.0 40.6 PLATELET 181 192 No results for input(s): INR in the last 168 hours. Recent Labs 08/07/19 0553 08/06/19 1406 08/06/19 0535 NA 141 140 138 K 4.1 4.4 4.5 CL 100 101 103 CO2 30 26 24 BUN 14 12 12 CREATININE 1.43 1.23 1.26 No results for input(s): AST, ALT, ALKPHOS, BILITOT, BILIDIR in the last 168 hours. Recent Labs 08/07/19 0553 08/06/19 1406 08/06/19 0535 CALCIUM 8.9 9.3 8.6 MAGNESIUM 0.86 0.82 -- Recent Labs 08/07/19 1205 08/07/19 0553 08/07/19 0028 08/06/19 1813 CK 133 168 220* 301* TROPONINT -- 0.50* 0.62* 0.84* Pertinent Radiographic/Diagnostic Results: ECG: nsr CXR 08/05: pulm edema Cardiac Cath: Pending ECHO 08/06/19: 1. The left ventricular chamber size, wall [...] from 07/14/06, there is no significant change. Assessment: Samy Oreilly Sheng AcostaJenn is a 53 y.o. male with history of DMT2, GERD, CARLOTA, COPD, tobacco and alcohol use disorder, CAD s/p EDEN to RCA and LCX, HTN, here for inferior STEMI s/p EDEN to RCA. Clinically stable, no acute events. Extensive discussion with patient and regarding the need tostay in house 72 hours post cath for monitoring. Patient agreed to stay tonight but would leave at 8am tomorrow. Patient has poor risk factor control, partly due to patient's unwilling to sacrifice hispersonal lifestyle in discussion with . Emphasized to both of them that his risk of future cardiac event is high, and aggressive reduction in risk factors (DM, smoking, alcohol, carlota, htn, lipid) are important for his future health. Plan: 1. Inferior STEMI s/p EDEN to RCA - Remain on telemetry for monitoring - Preserved LVEF and no wma on echo. - Aspirin 81mg qd - Lipitor 80mg qd - Prasugrel 10mg daily - Metoprolol tartrate 25mg q6h -> transition to long acting at discharge - Nitrostat prn for chest pain - Replete K, Mg to maintain K>4, Mg >1 2. T2DM - Hgba1c 6.3% - SS - Changed to carb controlled level 2 as his poct glucose was high. 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 3. COPD - Duoneb q4h prn while in house. - Resume home meds at discharge. 4. Tobacco use disorder - Nicotine patch 42mg qd - Nicotine lozenge - Tobacco team consulted. 5. Alcohol use disoder - CIWA protocol given patient's anxiety this AM. - Folate, thiamine. - Alcohol cessation education. 6. GERD, Diaz's esophagus - Sucrafate - Can have baking soda if patient requested. 7. Acute pulmonary edema, secondary to inferior STEMI - resolved with lasix diuretic. Drew Damon MD 08/07/2019 Cardiology S2, 3745 Associated attestation - Tariq Guerrero MD - 08/07/2019 9:35 PM EDT Cardiology Attending Addendum Active Hospital Problems Diagnosis ST elevation myocardial infarction involving right coronary artery History of tobacco use Gastroesophageal reflux disease without esophagitis Type 2 diabetes mellitus without complication, without long-term current use of insulin Uncomplicated alcohol dependence CARLOTA (obstructive sleep apnea) Resolved Hospital Problems No resolved problems to display. I have interviewed and examined the patient, reviewed the available data, and have discussed my findings, assessment and plan with the patient and the team on rounds today. I agree with Dr. Damon's note as below which reflects our discussion. I discussed with patient rationale for further monitoring after myocardial infarction and increased risk of sudden the first couple of days. Patient later in the day insisted on leaving against medical advice. Rama Park RN - 08/06/2019 4:49 PM EDT 1500: report received, care assumed. Pt., is A&O, VS in doc flow, tele: SR full report in chart.Pt., assessment benign (see doc flow). He is resting comfortably in bed, he denies CP/SOB. S/O at the bedside, call blankenship within reach. Will continue to monitor. Plan: continue to monitor s/p STEMI and cath, med manage, discharge planning as appropriate. Philip Johnson MD - 08/06/2019 10:43 AM EDT Post Cath Note S: No chest pain, dyspnea, abdominal, groin, or back pain. Dressing clean and dry, no signs of infection, no bleeding from R radial access site. O: Tc: 37.1C BP: 108/76 HR: 78 bpm R: 22/minute SpO2: 94% on RA General: Lying in bed in NAD. Abd: No flank or back tenderness. Groin: Right radial access site without hematoma or ecchymoses. No bleeding. Ext: warm, sensation intact, 2+ PT pulses. A/P: s/p cath with benign appearing right radial access site. ---- Philip Johnson MD PGY3, IM Natalia Renee RN - 08/06/2019 4:56 AM EDT Pt arrived to room 450a. Tele on, oriented to room. VSS, see flowsheet. SR on tele, see saved strips. Denies CP or SOB. TR band in place with 12 cc of air. Resting in bed. Will continue to monitor. documented in this encounter H&P Notes Lovely Moise MD - 08/06/2019 1:11 AM EDT Cardiology Admission History and Physical Patient Name: Samy Patricio Jr. Service: S2 Team Responsible Attending: Tariq Guerrero MD PCP: Sae Marr MD PCP phone #: [phone] ID/Chief Complaint: Inferior STEMI History of Present Illness: Mr. Samy Patricio is a 53 year male is a PMHx of CAD (s/p NSTEMI 08/2017 s/p EDEN to RCA and LCx), DM, HTN, HLD, Diaz's esophagus, chronic back pain, and alcohol and tobacco use who developed persistent chest pain and syncope found to have an inferior STEMI. Patient has chronic angina that occurs randomly several times a week, not necessarily associated with exertion. Today he noted that he was having chest pain with any type of exertion. The chest pain radiated to his jaw and was associated with SOB, which is not characteristic of his normal chest pain. He eventually became diaphoretic. He then had 2 syncopal episodes at home when sitting up from a lying position lasting about 45 seconds each. He lost consciousness during these episodes but did not hithis head. The syncopal episodes prompted his to call 911. Per the light rail train operator's instructions he took SLN x3, but did not experience any relief of symptoms. EMS arrived and noted his heart rate to be in the 30s with blood pressures 60s/30s. He was transcutaneously paced en route to [facility]. EKG at [facility] showed STEs in the inferior leads with reciprocal changesin the lateral leads. Dopamine was initiated, but he remained hypotensive with SBPs in the 60s-80s. Initial plan was for intubation and initiation of epinephrine. The patient was given full dose aspirin 324mg, plavix 300mg, TNK 50mg, and bolused and started on a heparin drip. Post lytic therapy the patient's STEs normalized and he was more alert and responsive, as such intubation was deferred. He wastransitioned form dopamine to epinephrine. He was transferred to the [facility] ED for evaluation. On arrival to [facility] he had continued chest pain, but his EKG changes had resolved. He was on 1.5 of epi with heart rates in the 80s and blood pressures in the 110s/50s. He was taken immediately to the label sewer where he had a EDEN placed to his proximal RCA. He was weaned off of epinephrine in the label sewer and transferred to the CSCU. In the CSCU the patient is chest pain free. He is hemodynamically stable with HRs 80s and BPs 120s/70s. The patient had an NSTEMI in 08/2017, at that time he has EDEN to the RCA and LCx. Since then he has had chronic angina that occurs randomly several times per week both at rest and with exertion. His chest pain usually goes away after taking 4- 6 SLN. Patient endorses PND, orthopnea, no swelling in his legs, no weight gain or increasing abdominal girth. Problem List/Past Medical History Patient Active Problem List Diagnosis ??? Cervical spinal stenosis ??? Chronic midline low back pain without sciatica Meds: No current facility-administered medications on file prior to encounter. Current Outpatient Medications on File Prior to Encounter Medication Sig Dispense Refill ??? TRELEGY ELLIPTA 100-62.5-25 mcg Disk with Device INHALE 1 PUFF BY MOUTH DAILY 0 ??? nitroGLYcerin (NITROSTAT) 0.[address], [address] 1 TABLET UNDER TONGUE EVERY 5 MINUTES DIRECTED 3 ??? metFORMIN (GLUCOPHAGE-XR) 500 mg Tablet Sustained Release 24 hr Take 1,000 mg by mouth 2 times daily. 3 ??? isosorbide mononitrate (IMDUR) 120 mg Tablet Sustained Release 24 hr Take 120 mg by mouth daily. ??? lancets 33 gauge Misc Lancets [facility] USE DIRECTED. Active ??? pantoprazole (PROTONIX) 40 mg Tablet, Delayed Release (E.C.) Take 40 mg by mouth daily. ??? aspirin 81 mg Tablet, Delayed Release (E.C.) Take 81 mg by mouth Daily. ??? metoprolol succinate (TOPROL-XL) 25 mg Tablet Sustained Release 24 hr Take 25 mg by mouth Daily. ??? atorvastatin (LIPITOR) 40 mg Tablet Take 40 mg by mouth Daily. ??? glipiZIDE (GLUCOTROL) 5 mg Tablet Take 10 mg by mouth 2 times daily (before meals). 4 Allergies: Allergies Allergen Reactions ??? Venlafaxine ??? Doxycycline Nausea And Vomiting ??? 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 Appears stated age. HEENT: EOMI, anicteric sclera. 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 Moist mucous membranes Neck: Supple with normal ROM. No obvious LAD. JVD not appreciated, no HJR appreciated Cardiac: Normal S1 and S2, Regular rate and rhythm; No murmrs/gallops/rubs. Respiratory: Nonlabored. Diminished breath sounds throughout with extensive wheezes and rhonchi throughout all lung fieds. Abd: + BS; soft, non-tender, non-distended, no obvious masses. Ext: WWP without le edema, cyanosis or clubbing. DPP 2+ bilaterally. TR band on right wrist. Neuro: II-XII grossly intact. Alert and orientated, no-focal deficits, sensation intact to crude touch Skin: No rashs, no lesions, no petechiae Lines: PIV Laboratory: CBC: No results for input(s): WBC, HGB, PLATELET in the last 7068 hours. Chemistry: No results for input(s): NA, K, CL, CO2, BUN, CREATININE, GLUCOSE in the last 7068 hours. No results for input(s): CALCIUM, MAGNESIUM, PHOS in the last 7068 hours. LFT's: No results for input(s): BILITOT, BILIDIR, ALBUMIN, ALKPHOS, ALT, AST in the last 7068 hours. Coags: No results for input(s): PT, INR, PTT, FIBRINOGEN, DDIMER in the last 168 hours. Invalid input(s): THROMBIN TIME Cardiac enzymes: No results for input(s): TROPONINT, CK in the last 7068 hours. Endocrine: No results for input(s): TSH, CORTISOL in the last 7068 hours. Invalid input(s): [id number] Heme: No results for input(s): LDH, HAPTOGLOBIN, URICACID in the last 168 hours. Microbiology: None Diagnostic Studies: EKG- NSR resolved STEs CXR- pending TTE: 2017 EF 55-60% normal RV and Valves ASSESSMENT: Mr. Samy Patricio is a 53 year male is a PMHx of CAD (s/p NSTEMI 08/2017 s/p EDEN to RCA and LCx), DM, HTN, HLD, Diaz's esophagus, chronic back pain, and alcohol and tobacco use who developed persistent chest pain and syncope found to have an inferior STEMI initially bradycardic and hypotensive requiring the initiation of epinephrine, now s/p revascularization with EDEN to RCA with resolved pressor requirement. Patient was initially loaded with plavix given that he was treated with lytic therapy, after today will transition patient from plavix to prasugrel for anti- platelet therapy. Otherwise will initiate onGDMT, will hold off on beta geronimo and CORKY inhibitor for now as patient was just weaned off of epi several hours ago. LVEDP was 21, but will hold off on diuresis for now given recent pressor requirement. PLAN: Admit to Cardiology, S2 Team Pager # [phone] #CAD #inferior STEMI - s/p asa 324 - s/p plavix 300 - s/p TNK 50 - aspirin 81mg daily - plavix 75mg today - prasugrel 60mg tomorrow (08/06) - prasugrel 10mg daily starting 08/07 - atorvastatin 80mg daily - hold off on beta geronimo and CORKY given pressor requirement - home doses: metoprolol 50 and lisinopril 10 - hold home Imdur given pressor requirements - TTE in the am #DM - hold home oral anti-hyperglycemics - SSI titrate as needed #Tobacco Use Disorder - nicotine patch #GERD - protonix - sucralfate Other: - DVT prophylaxis: SQH - GI prophylaxis: protonix - Diet: NPO - Code Status: FULL - Dispo: [facility] Lovely Moise MD 08/06/2019 Associated attestation - Tariq Guerrero MD - 08/06/2019 10:31 PM EDT Cardiology Attending Addendum Active Hospital Problems Diagnosis ST elevation myocardial infarction involving right coronary artery History of tobacco use Resolved Hospital Problems No resolved problems to display. I have interviewed and examined the patient, reviewed the available data, and have discussed my findings, assessment and plan with the patient and the team on rounds today. I agree with Dr. Moise's admission note of last night. We discussed smoking cessation in detail .Will try Wellbutrin. documented in this encounter ED Notes Mendoza Richards MD - 08/06/2019 2:05 AM EDT ED Resident Note Samy Patricio Jr. is an 53 y.o. male who presents to the ED with: Chief Complaint Patient presents with ??? Hospital Transfer ??? Chest Pain I saw this patient on 08/06/2019. History is from the patient at the bedside. HPI Samy Patricio Jr. is a 53 y.o. male with history of obesity, tobacco use, who presents to the Emergency Department inferior STEMI. Patient presents to outside hospital status post lytic therapy, while in transport he was hypotensive requiring epinephrine. Now off pressors, reports no chest pain. Denies recent illness, cough, shortness of breath, sick exposures, fevers, chills, nausea or vomiting. Patient met at the bedside by cardiology and will be rushed to the Auto [employer]er. Review of Systems: Review of Systems Constitutional: Negative for activity change, appetite change, chills, diaphoresis, fever and unexpected weight change. HENT: Negative for rhinorrhea, sore throat and voice change. Respiratory: Negative for apnea, cough and shortness of breath. Cardiovascular: Positive for chest pain. Gastrointestinal: Negative for abdominal pain, constipation, diarrhea, nausea and vomiting. Genitourinary: Negative for dysuria. Musculoskeletal: Negative for back pain. Skin: Negative for rash. Neurological: Negative for dizziness, numbness and headaches. Psychiatric/Behavioral: Negative for confusion and suicidal ideas. Physical Exam: No data found. GEN: No acute distress. HEENT: Oropharynx clear, pink, and moist. PULM: No resp distress. CV: Normal rate. No murmurs. ABD: Soft, nondistended, nttp. MSK: No gross deformities. NEURO: AAOx3. PERRL. No gross CN deficits. Light touch intact face & body. Moves extremities equally. PSYCH: Normal mood and thought pattern. SKIN: No rashes. ED Course: - Patient seen under the supervision of the attending physician. - Medications, allergies, and past medical history reviewed. No results found for this or any previous visit (from the past 24 hour(s)). Assessment and Plan: 53 y.o. male with inferior STEMI. 53-year-old gentleman transferred from outside hospital with inferior STEMI. Per report he was unstable at outside hospital, requiring epinephrine however he is now off pressors, and chest pain-free. He is status post lytics. EKG obtained here shows resolution of his ST segment elevation. He was met the bedside by cardiology and was rushed to the Auto Cleaner. No infectious symptoms concerning for COVID. Mendoza Richards MD Resident 08/06/19 477 Associated attestation - Tiffanie Espino MD - 08/24/2019 5:11 AM EDT ED ATTENDING ATTESTATION NOTE The patient was seen in conjunction with the resident physician. I have independently performed the sanford portions of the history and physical exam. I have reviewed the nursing notes, vital signs, and all diagnostic studies personally including labs, imaging studies and EKGs. I have discussed the details of the case with the resident and agree with the assessment and plan as described in the resident note above unless noted otherwise below. documented in this encounter Miscellaneous Notes Consult Note - Sofya Rios RN - 08/07/2019 10:33 AM EDT Cardiac Rehabilitation Inpatient Evaluation Primary Cardiac Diagnosis: STEMI, s/p PCI Cardiac Risk Factors: Smoking: yes, has met with the tobacco cessation nurse Overweight: yes Hyperlipidemia: yes Sedentary: no HTN: no Family history: no DM: yes Stress: did not discuss Patient Education: Reviewed cardiac cath findings, implications of coronary artery disease, managingangina and risk factor modification. Heart diagram reviewed. Reviewed managing angina /use of sl nitroglycerin. Mediterranean diet guidelines briefly reviewed. Given parameters for home exercise. Patient states he walks several days/week for exercise. Phase II Referral: Participation in the outpatient cardiac rehabilitation program at [facility] was discussed. Patient agrees to a referral to this program. He participated in a few sessions of cardiac rehab at this hospital in 2018 s/p PCI. The referral will be sent at discharge and the patient should be contacted by the Program within 1- 2 weeks from discharge. Activity Summary: By discharge, patient will be able to perform self care, walk 5-7 minutes and go up and down stairs without signs or symptoms of ischemia. Activity Baseline Response ~7 walk HR 81 bpm 98 bpm 13 stairs BP 107/67 135/76 O2 Sat 95% RA 95% RA ECG SR SR Symptoms/Comments: well tolerated. No sx. Initial Assessments - Kareen Samayoa RN - 08/07/2019 8:18 AM EDT Office of Care Management Assessment Medical record reviewed. Plan of care and patient status discussed with direct care RN and/or Care Team in multidisciplinary rounds. Screening: Per H&P by Lovely Herrera: Mr. Samy Patricio is a 53 year male is a PMHx of CAD (s/p NSTEMI 08/2017 s/p EDEN to RCA and LCx), DM, HTN, HLD, Diaz's esophagus, chronic back pain, and alcohol and tobacco use who developed persistent chest pain and syncope found to have an inferior STEMI. Present on Admission: ??? ST elevation myocardial infarction involving right coronary artery Patient has not been admitted to a hospital within the last 30 days. Patient receiving hospital care under Inpatient status. Admission order reviewed. 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 No problem w/ADL's Living Situation: lives w/spouse in a single level w/3STE and also has a camp w/2STE Physical Address [address] [place] [address] [place] [address] Supports: Lives w/ and [id number] who are both supportive. Also has friends and family close by for support. Assessment: Patient with no apparent RNCM/SW needs at this time. No housing, transportation, insurance, resources concerns identified at this time. Supports in place to achieve a safe post-hospital transition. No identified barriers to accessing necessary care and/or follow-up after discharge. Plan: Patient to d/c to home via car w/ when medically ready. marketing programs specialist/[employer] will continue to follow patient???s progress and remain available if situation changes for coordination of care, psychosocial support and/or discharge planning. Kareen Samayoa RN Pager [phone] [address] [phone] Plan of Care - Natalia Renee RN - 08/07/2019 2:59 AM EDT OUTCOME EVALUATION NOTE: OUTCOME SUMMARY: Samy had an okay night. VSS, see flowsheet. SR on tele, see saved strips. Denies CP or SOB. Right radial site remains WDL. Pt uninterested in education and information regarding current health concerns. Resting between care. Will continue to monitor. PLAN MOVING FORWARD: Continue to monitor post STEMI INDIVIDUALIZED FALL PREVENTION INTERVENTIONS: Patient-specific fall risk factors per assessment: [current deficits]: Unfamiliar environment, tele,O2, IV Assistance [level of assistance required for transfers and ambulation]: Ind Supervision [direct monitoring required during toileting and ADLs]: Ind Surveillance [continuous indirect monitoring]: Tele, O2, call light in reach, purposeful rounding Patient-specific fall prevention interventions for sensory deficits provided, if applicable: [X] N/A CPG GOAL OUTCOME EVALUATION: ongoing Consult Note - Bryn Guevara RN - 08/06/2019 2:39 PM EDT TOBACCO DEPENDENCE TREATMENT NOTE DATE: 08/06/2019 NAME: Samy Patricio Jr. : 1965 S: I've been smoking 2 packs a day since I was 19. There was a time, a long time ago, that I was upto 3 packs a day. I started smoking when I was 13. The cravings are horrible. I don't know what I'm going to do. O: Referral received. Chart reviewed. I met with patient this morning to discuss his tobacco use andassess his readiness to quit. He is currently wearing a 21 mg nicotine patch and reports cravings/urges to smoke. He is in agreement to commit to a quit attempt. He was given 2 boxes of 21 mg nicotine patches and 1 bottle of 4 mg nicotine lozenges. Request sent to primary team to add the nicotine lozenges PRN to assist with cravings and to add a 21 mg nicotine patch for 42 mg total . Instructions foreach will be included in AVS for review. A: Pt did not wish to participate in consult, but is willing to commit to a quit attempt. Pt is in the PREPARATION stage of change. P: Continue current plan of care. Please contact me with additional questions or concerns. Thank you. Bryn Guevara MSN, RN-, [facility] Tobacco Auto Driver [facility] Pager #[phone] Plan of Care - Daniel Sands RN - 08/06/2019 11:13 AM EDT Problem: Cardiac Cath/Percutaneous Coronary Intervention (Adult) Goal: Signs and Symptoms of Listed Potential Problems Will be Absent, Minimized or Managed (Cardiac Cath/Percutaneous Coronary Intervention) Signs and symptoms of listed potential problems will be absent, minimized or managed by discharge/transition of care (reference Cardiac Cath/Percutaneous Coronary Intervention (Adult) CPG). OUTCOME EVALUATION NOTE: OUTCOME SUMMARY: Patient admitted with a STEMI got a EDEN to the RCA, TR band removed. Patient ambulated unit, tolerated well. PLAN MOVING FORWARD: Cont to monitor, patient to dsicharge 72 hours after STEMI. INDIVIDUALIZED FALL PREVENTION INTERVENTIONS: Patient-specific fall risk factors per assessment: [current deficits]: Tethered to cscu monitorin system Assistance [level of assistance required for transfers and ambulation]: standby Supervision [direct monitoring required during toileting and ADLs]: Call blankenship Surveillance [continuous indirect monitoring]: Hourly rounds Patient-specific fall prevention interventions for sensory deficits provided, if applicable: CPG GOAL OUTCOME EVALUATION: Op Note - Jung Merino MD - 08/06/2019 3:50 AM EDT [facility] [place] Patient Name: Samy Patricio Jr. : [id number] MR#: [id number] Case Date: 08/06/2019 Surgeon: Surgeon(s) and Role: * Jung Merino MD - Primary * Jose Ellison MD - Fellow Preoperative diagnosis: STEMI Postoperative diagnosis: STEMI, treated with 1 EDEN to proximal RCA Recommend: 1. Received plavix in the setting of lytics. Discussed ticagrelor with the patient, could not affordin the past. Prasugrel would be the best option, as this is generic and has improved data in ACS compared to ticagrelor or plavix, reducing stroke, ID and (NEJM 2019). Give plavix 75 mg this morning. Then, tomorrow (08/06), load with prasugrel [address] and then 10 mg daily for 1 year with asa 81 mg. Please call local pharmacy today for patient so they can have prasugrel ready there by discharge (sometimes pharmacies will need 24 hours to get it). 2. Risk factor modification per primary team. Procedure(s) (LRB): CARDIAC CATHETERIZATION (N/A) Access: Radial provided good support for procedure. 6 Fr RRA with TR band in place, good hemostasis. The patient tolerated the procedures smoothly and was transferred from the cardiac catheterization lab to the next level of care in stable condition, without pain. No evident early complications. Results discussed with service fellow and with the patient and their family. A time-out was conducted prior to the start of the procedure to verify the correct patient and procedure, procedure location, and all relevant critical information. Full report to follow. JUNG MERINO MD ED Triage - Candace Zhao RN - 08/06/2019 2:03 AM EDT Patient arrived via EMS from OSH for Stemi label sewer. 3PM patient started to have chest pain continued to get worse. Took 3 SL nitro at home and EMS was called. documented in this encounter Plan of Treatment Upcoming Encounters Date Type Specialty Care Team Description 01/26/2022 Office Visit Ophthalmology Tania Gates , OD [facility] OPHTHALMOLOGY [facility] [place], [place] [address] (Wo rk) Scheduled Orders Name Type Priority Associated Diagnoses Order S chedule EKG [address] elevation myocardial One Time for 1 Occurrences infarction (STEMI), starting 08/06/2019 until unspecified artery 0 Scheduled Procedures Name Priority Associated Diagnoses Date/Time [...] MORSELIZED (WRVU *) MODIFIER K2 MEDICAL - [place] STENOSIS & HNP & MYELOPATHY Scheduled Referrals Name Type Priority Associated Diagnoses Order S chedule Referral to Cardiac Outpatient Referral Routine ST elevation O rdered: Rehab myocardial 08/07/2019 infarction (STEMI), unspecified artery Referral to Outpatient Referral Routine ST elevation Ordered: Cardiology myocardial 08/07/2019 infarction involving right coronary artery documented as of this encounter Procedures Procedure Name Priority Date/Time Associated Comments Diagnosis POCT GLUCOSE Routine 08/07/2019 4:53 Results for this PM EDT procedure are i n the results section. POCT GLUCOSE Routine 08/07/2019 1:55 Results for this PM EDT procedure are i n the results section. HC VENIPUNCTURE Routine 08/07/2019 12:05 Results for this PM EDT procedure are i n the results section. POCT GLUCOSE Routine 08/07/2019 11:20 Results for this AM EDT procedure are i n the results section. EKG 12-LEAD Routine 08/07/2019 8:57 ST elevation Results for this AM EDT myocardial procedure are i n infarction (STEMI), the resu lts unspecified artery section. POCT GLUCOSE Routine 08/07/2019 7:23 Results for this AM EDT procedure are i n the results section. BMP W/FASTING GLUCOSE Routine 08/07/2019 5:53 Res ults for this AM EDT procedure are i n the results section. HEMOGRAM Routine 08/07/2019 5:53 Results for this AM EDT procedure are i n the results section. DIFFERENTIAL, AUTOMATED Routine 08/07/2019 5:53 R esults for this AM EDT procedure are i n the results section. HC VENIPUNCTURE Routine 08/07/2019 5:53 AM EDT HC TROPONIN T Routine 08/07/2019 5:53 Results for this AM EDT procedure are i n the results section. HC MAGNESIUM, SERUM Routine 08/07/2019 5:53 Resul ts for this AM EDT procedure are i n the results section. CK Routine 08/07/2019 5:53 Results for this AM EDT procedure are i n the results section. POCT GLUCOSE Routine 08/07/2019 4:16 Results for this AM EDT procedure are i n the results section. HC VENIPUNCTURE Routine 08/07/2019 12:28 Results for this AM EDT procedure are i n the results section. HC CREATINE Routine 08/07/2019 12:28 Results for this PHOSPHOKINASE, SERUM AM EDT procedu re are in the results section. POCT GLUCOSE Routine 08/06/2019 11:26 Results for this PM EDT procedure are i n the results section. EKG 12-LEAD STAT 08/06/2019 8:18 ST elevation Results for this PM EDT myocardial procedure are i n infarction (STEMI), the resu lts unspecified artery section. POCT GLUCOSE Routine 08/06/2019 7:59 Results for this PM EDT procedure are i n the results section. HC VENIPUNCTURE Routine 08/06/2019 6:13 Results f or this PM EDT procedure are i n the results section. HC CREATINE Routine 08/06/2019 6:13 Results for this PHOSPHOKINASE, SERUM PM EDT procedu re are in the results section. POCT GLUCOSE Routine 08/06/2019 4:18 Results for this PM EDT procedure are i n the results section. HC MAGNESIUM, SERUM Routine 08/06/2019 2:06 Resul ts for this PM EDT procedure are i n the results section. HC VENIPUNCTURE Routine 08/06/2019 2:06 Results f or this PM EDT procedure are i n the results section. HC VENIPUNCTURE Routine 08/06/2019 12:05 Results for this PM EDT procedure are i n the results section. HC CREATINE Routine 08/06/2019 12:05 Results for this PHOSPHOKINASE, SERUM PM EDT procedu re are in the results section. POCT GLUCOSE Routine 08/06/2019 11:13 Results for this AM EDT procedure are i n the results section. ECHOCARDIOGRAM COMPLETE Routine 08/06/2019 9:20 ST elevation R esults for this AM EDT myocardial procedure are i n infarction (STEMI), the resu lts unspecified artery section. POCT GLUCOSE Routine 08/06/2019 7:18 Results for this AM EDT procedure are i n the results section. XR CHEST ONE VIEW Routine 08/06/2019 6:52 Results for this AM EDT procedure are i n the results section. EKG 12-LEAD Routine 08/06/2019 6:13 ST elevation Results for this AM EDT myocardial procedure are i n infarction (STEMI), the resu lts unspecified artery section. CRP, ACUTE INFLAMMATION STAT 08/06/2019 5:35 R esults for this AM EDT procedure are i n the results section. HEMOGRAM STAT 08/06/2019 5:35 Results for this AM EDT procedure are i n the results section. DIFFERENTIAL, AUTOMATED STAT 08/06/2019 5:35 R esults for this AM EDT procedure are i n the results section. SEDIMENTATION RATE STAT 08/06/2019 5:35 Result s for this AM EDT procedure are i n the results section. HC CBC,PLT & AUTO DIFF STAT 08/06/2019 5:35 AM EDT HC TROPONIN T STAT 08/06/2019 5:35 Results for this AM EDT procedure are i n the results section. HC HEMOGLOBIN A1C Routine 08/06/2019 5:35 Results for this AM EDT procedure are i n the results section. LIPID PANEL (REFLEX Routine 08/06/2019 5:35 Resul ts for this DIRECT LDL) AM EDT procedure are i n the results section. BASIC METABOLIC PANEL STAT 08/06/2019 5:35 Res ults for this (NON-FASTING) AM EDT procedure are in the results section. POCT GLUCOSE Routine 08/06/2019 5:32 Results for this AM EDT procedure are i n the results section. CARDIAC CATHETERIZATION STAT 08/06/2019 4:38 ST elevation R esults for this AM EDT myocardial procedure are i n infarction (STEMI), the resu lts unspecified artery section. EKG 12-LEAD STAT 08/06/2019 2:05 Results for this AM EDT procedure are i n the results section. documented in this encounter Results (ABNORMAL) POCT Glucose (08/07/2019 4:53 PM EDT) athologist Signature POC Glucose 286 (H) 65 - 199 [facility] Comment: Supplemental ranges: <140 mg/dL before meals <180 mg/dL all other times of the day Specimen Anatomical Collection Method Collection Time Receive d Time (Source) Location / / Volume Laterality Blood specimen 08/07/2019 4:53 PM 020 4:53 (specimen) EDT PM EDT Tariq Guerrero MD POINT OF CARE TEST ORDERABLE S Performing Organization Address City/[facility] Code Phon e Number [place] [address] POCT Glucose (08/07/2019 1:55 PM EDT) athologist Signature POC Glucose 178 65 - 199 [facility] Comment: Supplemental ranges: <140 mg/dL before meals <180 mg/dL all other times of the day Specimen Anatomical Collection Method Collection Time Receive d Time (Source) Location / / Volume Laterality Blood specimen 08/07/2019 1:55 PM 020 1:55 (specimen) EDT PM EDT Tariq Guerrero MD POINT OF CARE TEST ORDERABLE S Performing Organization Address City/State/ZIP Code Phon e Number [place] [phone] CK (08/07/2019 12:05 PM EDT) athologist Signature CK, Total 133 0 - 200 [facility] unit/L [facility] Specimen Anatomical Collection Method Collection Time Receive d Time (Source) Location / / Volume Laterality Blood specimen 08/07/2019 12:05 0 (specimen) PM EDT 12:20 PM EDT Resulting Agency Comment Spec In Lab Tariq Guerrero MD CHEMISTRY ORDERABLES Performing Organization Address City/State/[place] [address] (ABNORMAL) POCT Glucose (08/07/2019 11:20 AM EDT) athologist Signature POC Glucose 309 (H) 65 - 199 [facility] mg/dL [facility] Comment: Supplemental ranges: <140 mg/dL before meals <180 mg/dL all other times of the day Specimen Anatomical Collection Method Collection Time Receive d Time (Source) Location / / Volume Laterality Blood specimen 08/07/2019 11:20 0 (specimen) AM EDT 11:20 AM EDT Tariq Guerrero MD POINT OF CARE TEST ORDERABLE S Performing Organization Address City/State/[place] [address] EKG 12 Lead (08/07/2019 8:57 AM EDT) Component Value Ref Range Test Analysis Performed Pathologis t Method Time At Signature Ventricular rate 75 BPM MUSE SYSTEM Atrial Rate 75 BPM MUSE SYSTEM P-R Interval 176 ms MUSE SYSTEM QRS Duration 94 ms MUSE SYSTEM Q-T Interval 390 ms MUSE SYSTEM QTC Calculated 435 ms MUSE SYSTEM (Bezet) Calculated P Nenzel 67 degrees MUSE SYSTEM Calculated R Nenzel 47 degrees MUSE SYSTEM Calculated T Nenzel -5 degrees MUSE SYSTEM INTERPRETATION Normal sinus rhythm MUSE SYSTEM T wave abnormality, consider inferior ischemia Abnormal ECG When compared with ECG of 06-AUG-2019 20:18, (unconfirmed) No significant change was found Confirmed by MD Yaima, Timothy Collins ([id number]) on 08/07/2019 5 :14:03 PM Specimen Anatomical Collection Method Collection Time Receive d Time (Source) Location / / Volume Laterality 08/07/2019 8:57 AM 0 5:14 EDT PM EDT Tiffanie Espino MD ECG ORDERABLES Performing Organization Address City/State/ZIP Code Phon e Number MUSE SYSTEM POCT Glucose (08/07/2019 7:23 AM EDT) athologist Signature POC Glucose 160 65 - 199 [facility] Comment: Supplemental ranges: <140 mg/dL before meals <180 mg/dL all other times of the day Specimen Anatomical Collection Method Collection Time Receive d Time (Source) Location / / Volume Laterality Blood specimen 08/07/2019 7:23 AM 020 7:23 (specimen) EDT AM EDT Tariq Guerrero MD POINT OF CARE TEST ORDERABLE S Performing Organization Address City/[facility]/ZIP [place] [address] CK (08/07/2019 5:53 AM EDT) athologist [facility] CK, Total 168 0 - 200 [facility] unit/L [facility] Specimen Anatomical Collection Method Collection Time Receive d Time (Source) Location / / Volume Laterality Blood specimen Venous Draw / 08/07/2019 5:53 AM 2019 6:07 (specimen) Unknown EDT AM EDT Resulting Agency Comment Spec In Lab Philip Johnson MD CHEMISTRY ORDERABLES Performing Organization Address City/[facility]/[place] [address] (ABNORMAL) Troponin (08/07/2019 5:53 AM EDT) athologist Signature Troponin-T 0.50 (H) 0.00 - [facility] 0.00 ng/mL [facility] Comment: The 99th percentile for Troponin T is le ss than 0.01 ng/mL, any detectable cTnT concentration using this assay should be considered elevated. According to the third universal definit ion of myocardial infarction the following criteria with a clinical prese ntation consistent with acute myocardial ischemia meets the diagnosis for a myocardial infarction (ID). Detection of a rise and/or fall of cTnT, with at least one value greater than the 99th percentile (> or = 0.01) and wi th at least one of the following ?? Symptoms of ischemia ?? New or presumed new significant ST-se gment-T wave (ST-T) changes or new left bundle branch block (LBBB) ?? Development of pathologic Q waves in the ECG ?? Imaging evidence of new loss of viabl e myocardium or new regional wall motion abnormality ?? Identification of an intracoronary th rombus by angiography or autopsy Samples for cTnT testing should be obtai mckenzie serially upon first assessment and again 3 to 6 hours later. If the clinica l suspicion is high and previous samples have been negative an additional sample may be indicated. Reference: Third Perkins Definition of Myocardial Infarction. Journal of the [place] [employer] 2012;60:1581-98 Specimen Anatomical Collection Method Collection Time Receive d Time (Source) Location / / Volume Laterality Blood specimen 08/07/2019 5:53 AM 020 5:59 (specimen) EDT AM EDT Resulting Agency Comment Spec In Lab Tariq Guerrero MD CHEMISTRY ORDERABLES Performing Organization Address City/State/[place] [address] Differential, Automated (08/07/2019 5:53 AM EDT) P athologist Signature Neutrophils % 59.8 % [facility] Neutr Abs (ANC) 4.63 1.70 - [facility] 6.10 [facility] x10(3)/[facility] LABORATORY Lymphocytes % 24.9 % [facility] Lymphocytes Abs 1.9 0.9 - 3.2 [facility] x10(3)/[facility] LABORATORY Monocytes % 8.5 % [facility] Monocyte Abs 0.7 0.3 - 0.9 [facility] x10(3)/[facility] LABORATORY Eosinophils % 5.8 % [facility] Eosinophils Abs 0.4 0.0 - 0.4 [facility] x10(3)/[facility] LABORATORY Basophils % 0.5 % [facility] Basophils Abs 0.0 0.0 - 0.1 [facility] x10(3)/[facility] LABORATORY Immature Gran % 0.50 % [facility] Comment: Immature granulocytes(IG's)percentage an d absolute count will include metamyelocytes, myelocytes, and promyelo cytes. Blood smears from CBCs yielding IG's will be scanned manually for concor dance. If this scan disagrees with the automated IG or if promyelocytes are not ed, a manual differential will be performed. Julianne Gran Abs 0.04 0.00 - 0.04 x10(3)/[facility] Specimen Anatomical Collection Method Collection Time Receive d Time (Source) Location / / Volume Laterality Blood specimen 08/07/2019 5:53 AM 020 5:59 (specimen) EDT AM EDT Resulting Agency Comment Spec In Lab Lovely Moise MD HEMATOLOGY ORDERABLES Performing Organization Address City/State/[place] [address] Hemogram (08/07/2019 5:53 AM EDT) P athologist Signature WBC 7.8 4.0 - 9.5 [facility] x10(3)/[facility] LABORATORY RBC 4.71 4.58 - [facility] 5.54 [facility] x10(6)/[facility] LABORATORY Hemoglobin 14.5 13.7 - [facility] 16.5 gm/dL [facility] Hematocrit 43.0 40.5 - [facility] 48.5 % [facility] MCV 91.3 82.9 - [facility] 93.1 [facility] LABORATORY MCH 30.8 27.5 - [facility] 32.1 pg [facility] MCHC 33.7 32.0 - [facility] 35.7 gm/dL [facility] Platelets 181 145 - 357 [facility] x10(3)/[facility] LABORATORY RDWSD 44.3 36.0 - [facility] 45.0 [facility] LABORATORY RDWCV 13.1 11.4 - [facility] 13.8 % [facility] MPV 9.6 7.6 - 12.9 [facility] LABORATORY nRBC % Auto 0.0 % [facility] nRBC Abs Auto 0.000 0.000 - [facility] 0.000 [facility] x10(3)/[facility] LABORATORY Specimen Anatomical Collection Method Collection Time Receive d Time (Source) Location / / Volume Laterality Blood specimen 08/07/2019 5:53 AM 020 5:59 (specimen) EDT AM EDT Resulting Agency Comment Spec In Lab Lovely Moise MD HEMATOLOGY ORDERABLES Performing Organization Address City/State/ZIP Code Phon e Number [address] Magnesium (08/07/2019 5:53 AM EDT) P athologist Signature Magnesium 0.86 0.69 - 1.07 [facility] mmol/L [facility] Specimen Anatomical Collection Method Collection Time Receive d Time (Source) Location / / Volume Laterality Blood specimen 08/07/2019 5:53 AM 020 5:59 (specimen) EDT AM EDT Resulting Agency Comment Spec In Lab Tariq Guerrero MD CHEMISTRY ORDERABLES Performing Organization Address City/State/ZIP Code Phon e Number [address] (ABNORMAL) BMP w/fasting Glucose (08/07/2019 5:53 AM EDT) P athologist Signature Glucose 152 (H) 65 - 99 [facility] Fasting mg/dL [facility] Comment: ?Fasting* Glucose Interpretive C riteria Normal ?65-99 mg/dL Impaired Fasting glucose ?100-125 mg/dL Consistent with Diabetes Mellitus ? >or= 126 mg/dL *Fasting is defined as no caloric intake for at least 8 hours In the absence of unequivocal hypergly cemia a plasma glucose value of >or= 126 mg/dL should be repeated on a subseq uent day. Diagnosis and Classification of Diabetes Mellitus, Position Statement from the [place] [employer]. ??Diabete s Care, Volume 33, Supplement 1, Mar 2009 BUN 14 10 - 20 mg/dL [facility] LABORATORY Creatinine 1.43 0.80 - 1.50 mg/dL [facility] LABORATORY Sodium 141 135 - 145 mmol/L [facility] Potassium 4.1 3.5 - 5.0 mmol/L [facility] Comment: Please note: ??Patients with WBC >100,00 0 may have falsely elevated Potassium levels. ??For accurate Potassium quantif ication in these patients send serum separator tube (gold top) for subsequent determinations. ??Contact the Clinical Chemistry Laboratory if there are any qu estions. Chloride 100 98 - 107 mmol/L [facility] CO2 30 22 - 31 mmol/L [facility] Anion Gap 11 5 - 15 mmol/L [facility] LAB[facility]ORY Calcium 8.9 8.5 - 10.5 mg/dL [facility] Estimated GFR 56 (L) >=60 mL/min/1.73 m?? [facility] Comment: The eGFR was calculated using the CKD-EP I equation. As with all creatinine based estimates of kidney function, eGFR values calculated with the CKD-EPI equation are not accurate in patients wi th acute kidney failure, extremes of body mass or the acutely ill. [email or web address] PRAGUEnkf eGFR 65 >=60 mL/min/1.73 m?? [facility] Comment: The eGFR was calculated using the CKD-EP I equation. As with all creatinine based estimates of kidney function, eGFR values calculated with the CKD-EPI equation are not accurate in patients wi th acute kidney failure, extremes of body mass or the acutely ill. [email or web address] Specimen Anatomical Collection Method Collection Time Receive d Time (Source) Location / / Volume Laterality Blood specimen 08/07/2019 5:53 AM 020 5:59 (specimen) EDT AM EDT Resulting Agency Comment Spec In Lab Tariq Guerrero MD CHEMISTRY ORDERABLES Performing Organization Address City/State/[place] [address] POCT Glucose (08/07/2019 4:16 AM EDT) [facility] POC Glucose 120 65 - 199 [facility] mg/dL [facility] Comment: Supplemental ranges: <140 mg/dL before meals <180 mg/dL all other times of the day Specimen Anatomical Collection Method Collection Time Receive d Time (Source) Location / / Volume Laterality Blood specimen 08/07/2019 4:16 AM 020 4:16 (specimen) EDT AM EDT Tariq Guerrero MD POINT OF CARE TEST ORDERABLE S Performing Organization Address City/[facility]/ZIP [place] [address] (ABNORMAL) CK (08/07/2019 12:28 AM EDT) [facility] CK, Total 220 (H) 0 - 200 [facility] unit/L [facility] Specimen Anatomical Collection Method Collection Time Receive d Time (Source) Location / / Volume Laterality Blood specimen 08/07/2019 12:28 0 (specimen) AM EDT 12:37 AM EDT Resulting Agency Comment Spec In Lab Tariq Guerrero MD CHEMISTRY ORDERABLES Performing Organization Address City/[facility]/[place] [address] (ABNORMAL) Troponin (08/07/2019 12:28 AM EDT) [facility] [employer] [facility] Troponin-T 0.62 (H) 0.00 - [facility] EARLYJOHNNA 0.00 ng/mL [facility] Comment: The 99th percentile for Troponin T is le ss than 0.01 ng/mL, any detectable cTnT concentration using this assay should be considered elevated. According to the third universal definit ion of myocardial infarction the following criteria with a clinical prese ntation consistent with acute myocardial ischemia meets the diagnosis for a myocardial infarction (ID). Detection of a rise and/or fall of cTnT, with at least one value greater than the 99th percentile (> or = 0.01) and wi th at least one of the following ?? Symptoms of ischemia ?? New or presumed new significant ST-se gment-T wave (ST-T) changes or new left bundle branch block (LBBB) ?? Development of pathologic Q waves in the ECG ?? Imaging evidence of new loss of viabl e myocardium or new regional wall motion abnormality ?? Identification of an intracoronary th rombus by angiography or autopsy Samples for cTnT testing should be obtai mckenzie serially upon first assessment and again 3 to 6 hours later. If the clinica l suspicion is high and previous samples have been negative an additional sample may be indicated. Reference: Third Perkins Definition of Myocardial Infarction. Journal of the [place] [employer] 2012;60:1581-98 Specimen Anatomical Collection Method Collection Time Receive d Time (Source) Location / / Volume Laterality Blood specimen 08/07/2019 12:28 0 (specimen) AM EDT 12:37 AM EDT Resulting Agency Comment Spec In Lab Tariq Guerrero MD CHEMISTRY ORDERABLES Performing Organization Address City/State/[place] [address] (ABNORMAL) POCT Glucose (08/06/2019 11:26 PM EDT) P athologist Signature POC Glucose 216 (H) 65 - 199 [facility] mg/dL [facility] Comment: Supplemental ranges: <140 mg/dL before meals <180 mg/dL all other times of the day Specimen Anatomical Collection Method Collection Time Receive d Time (Source) Location / / Volume Laterality Blood specimen 08/06/2019 11:26 0 (specimen) PM EDT 11:26 PM EDT Tariq Guerrero MD POINT OF CARE TEST ORDERABLE S Performing Organization Address City/State/[place] [address] EKG 12 Lead (08/06/2019 8:18 PM EDT) Component Value Ref Range Test Analysis Performed Pathologis t Method Time At Signature Ventricular rate 81 BPM MUSE SYSTEM Atrial Rate 81 BPM MUSE SYSTEM P-R Interval 178 ms MUSE SYSTEM QRS Duration 96 ms MUSE SYSTEM Q-T Interval 368 ms MUSE SYSTEM QTC Calculated 427 ms MUSE SYSTEM (Bezet) Calculated P Nenzel 64 degrees MUSE SYSTEM Calculated R Nenzel 52 degrees MUSE SYSTEM Calculated T Nenzel 3 degrees MUSE SYSTEM INTERPRETATION Normal sinus rhythm MUSE SYSTEM Normal ECG When compared with ECG of 06-AUG-2019 06:13, (unconfirmed) No significant change was found Confirmed by MD Yaima, Timothy Colilns ([id number]) on 08/07/2019 4 :51:03 PM Specimen Anatomical Collection Method Collection Time Receive d Time (Source) Location / / Volume Laterality 08/06/2019 8:18 PM 0 4:51 EDT PM EDT Tariq Guerrero MD ECG ORDERABLES Performing Organization Address City/[facility]/ZIP Code Phon e Number MUSE SYSTEM POCT Glucose (08/06/2019 7:59 PM EDT) athologist Signature POC Glucose 193 65 - 199 [facility] mg/dL [facility] Comment: Supplemental ranges: <140 mg/dL before meals <180 mg/dL all other times of the day Specimen Anatomical Collection Method Collection Time Receive d Time (Source) Location / / Volume Laterality Blood specimen 08/06/2019 7:59 PM 020 7:59 (specimen) EDT PM EDT Tariq Guerrero MD POINT OF CARE TEST ORDERABLE S Performing Organization Address City/[facility]/Z[place] [address] (ABNORMAL) CK (08/06/2019 6:13 PM EDT) athologist Signature CK, Total 301 (H) 0 - 200 [facility] unit/L [facility] Specimen Anatomical Collection Method Collection Time Receive d Time (Source) Location / / Volume Laterality Blood specimen 08/06/2019 6:13 PM 020 7:04 (specimen) EDT PM EDT Resulting Agency Comment Spec In Lab Tariq Guerrero MD CHEMISTRY ORDERABLES Performing Organization Address City/[facility]/ZIP [facility] [place] [address] (ABNORMAL) Troponin (08/06/2019 6:13 PM EDT) athologist Signature Troponin-T 0.84 (H) 0.00 - A[facility] OROPEZA 0.00 ng/mL [facility] Comment: The 99th percentile for Troponin T is le ss than 0.01 ng/mL, any detectable cTnT concentration using this assay should be considered elevated. According to the third universal definit ion of myocardial infarction the following criteria with a clinical prese ntation consistent with acute myocardial ischemia meets the diagnosis for a myocardial infarction (ID). Detection of a rise and/or fall of cTnT, with at least one value greater than the 99th percentile (> or = 0.01) and wi th at least one of the following ?? Symptoms of ischemia ?? New or presumed new significant ST-se gment-T wave (ST-T) changes or new left bundle branch block (LBBB) ?? Development of pathologic Q waves in the ECG ?? Imaging evidence of new loss of viabl e myocardium or new regional wall motion abnormality ?? Identification of an intracoronary th rombus by angiography or autopsy Samples for cTnT testing should be obtai mckenzie serially upon first assessment and again 3 to 6 hours later. If the clinica l suspicion is high and previous samples have been negative an additional sample may be indicated. Reference: Third Perkins Definition of Myocardial Infarction. Journal of the [place] [employer] 2012;60:1581-98 Specimen Anatomical Collection Method Collection Time Receive d Time (Source) Location / / Volume Laterality Blood specimen 08/06/2019 6:13 PM 020 7:04 (specimen) EDT PM EDT Resulting Agency Comment Spec In Lab Tariq Guerrero MD CHEMISTRY ORDERABLES Performing Organization Address City/State/ZIP Code Phon e Number [place] [address] POCT Glucose (08/06/2019 4:18 PM EDT) P athologist Signature POC Glucose 105 65 - 199 [facility] mg/dL [facility] Comment: Supplemental ranges: <140 mg/dL before meals <180 mg/dL all other times of the day Specimen Anatomical Collection Method Collection Time Receive d Time (Source) Location / / Volume Laterality Blood specimen 08/06/2019 4:18 PM 020 4:18 (specimen) EDT PM EDT Tariq Guerrero MD POINT OF CARE TEST ORDERABLE S Performing Organization Address City/State/ZIP Code Phon e Number [address] Magnesium (08/06/2019 2:06 PM EDT) athologist Signature Magnesium 0.82 0.69 - 1.07 [facility] mmol/L [facility] Specimen Anatomical Collection Method Collection Time Receive d Time (Source) Location / / Volume Laterality Blood specimen 08/06/2019 2:06 PM 020 2:18 (specimen) EDT PM EDT Resulting Agency Comment Spec In Lab Tariq Guerrero MD CHEMISTRY ORDERABLES Performing Organization Address City/State/ZIP Code Phon e Number [address] Basic Metabolic Panel (non-fasting) (08/06/2019 2:06 PM EDT) athologist Signature Glucose Lvl 108 65 - 199 [facility] mg/dL [facility] Comment: Diabetes: >=200 mg/dL plus symp toms BUN 12 10 - 20 mg/dL [facility] Creatinine 1.23 0.80 - 1.50 mg/dL [facility] Sodium 140 135 - 145 mmol/L [facility] Potassium 4.4 3.5 - 5.0 mmol/L [facility] Comment: Please note: ??Patients with WBC >100,00 0 may have falsely elevated Potassium levels. ??For accurate Potassium quantif ication in these patients send serum separator tube (gold top) for subsequent determinations. ??Contact the Clinical Chemistry Laboratory if there are any qu estions. Chloride 101 98 - 107 mmol/L [facility] CO2 26 22 - 31 mmol/L [facility] Anion Gap 13 5 - 15 mmol/L [facility] Calcium 9.3 8.5 - 10.5 mg/dL [facility] Estimated GFR 67 >=60 mL/min/1.73 m?? [facility] Comment: The eGFR was calculated using the CKD-EP I equation. As with all creatinine based estimates of kidney function, eGFR values calculated with the CKD-EPI equation are not accurate in patients wi th acute kidney failure, extremes of body mass or the acutely ill. [email or web address] PRAGUEnkf eGFR 78 >=60 mL/min/1.73 m?? [facility] Comment: The eGFR was calculated using the CKD-EP I equation. As with all creatinine based estimates of kidney function, eGFR values calculated with the CKD-EPI equation are not accurate in patients wi th acute kidney failure, extremes of body mass or the acutely ill. [email or web address] PRAGUEnkf Specimen Anatomical Collection Method Collection Time Receive d Time (Source) Location / / Volume Laterality Blood specimen 08/06/2019 2:06 PM 020 2:18 (specimen) EDT PM EDT Resulting Agency Comment Spec In Lab Tariq Guerrero MD CHEMISTRY ORDERABLES Performing Organization Address City/[facility]/ZIP [facility] Phon e Number [address] (ABNORMAL) CK (08/06/2019 12:05 PM EDT) athologist Signature CK, Total 344 (H) 0 - 200 [facility] unit/L [facility] Specimen Anatomical Collection Method Collection Time Receive d Time (Source) Location / / Volume Laterality Blood specimen 08/06/2019 12:05 0 (specimen) PM EDT 12:15 PM EDT Resulting Agency Comment Spec In Lab Tariq Guerrero MD CHEMISTRY ORDERABLES Performing Organization Address City/[facility] Phon e Number [address] (ABNORMAL) Troponin (08/06/2019 12:05 PM EDT) athologist Signature Troponin-T 0.74 (H) 0.00 - [facility] 0.00 ng/mL [facility] Comment: The 99th percentile for Troponin T is le ss than 0.01 ng/mL, any detectable cTnT concentration using this assay should be considered elevated. According to the third universal definit ion of myocardial infarction the following criteria with a clinical prese ntation consistent with acute myocardial ischemia meets the diagnosis for a myocardial infarction (ID). Detection of a rise and/or fall of cTnT, with at least one value greater than the 99th percentile (> or = 0.01) and wi th at least one of the following ?? Symptoms of ischemia ?? New or presumed new significant ST-se gment-T wave (ST-T) changes or new left bundle branch block (LBBB) ?? Development of pathologic Q waves in the ECG ?? Imaging evidence of new loss of viabl e myocardium or new regional wall motion abnormality ?? Identification of an intracoronary th rombus by angiography or autopsy Samples for cTnT testing should be obtai mckenzie serially upon first assessment and again 3 to 6 hours later. If the clinica l suspicion is high and previous samples have been negative an additional sample may be indicated. Reference: Third Perkins Definition of Myocardial Infarction. Journal of the [place] [employer] 2012;60:1581-98 Specimen Anatomical Collection Method Collection Time Receive d Time (Source) Location / / Volume Laterality Blood specimen 08/06/2019 12:05 0 (specimen) PM EDT 12:15 PM EDT Resulting Agency Comment Spec In Lab Tariq Guerrero MD CHEMISTRY ORDERABLES Performing Organization Address City/State/ZIP Code Phon e Number [address] POCT Glucose (08/06/2019 11:13 AM EDT) athologist Signature POC Glucose 106 65 - 199 [facility] mg/dL [facility] Comment: Supplemental ranges: <140 mg/dL before meals <180 mg/dL all other times of the day Specimen Anatomical Collection Method Collection Time Receive d Time (Source) Location / / Volume Laterality Blood specimen 08/06/2019 11:13 0 (specimen) AM EDT 11:13 AM EDT Tariq Guerrero MD POINT OF CARE TEST ORDERABLE S Performing Organization Address City/[facility]/ZIP [place] [address] ECHOCARDIOGRAM COMPLETE (08/06/2019 9:20 AM EDT) athologist Signature EF 64 [facility]ART[facility] SYSTEM Anatomical Region Laterality Modality Other Specimen (Source) Anatomical Location Collection Method / Collectio n Time Received Time / Laterality Volume 08/06/2019 Narrative 08/06/2019 9:40 AM EDT Procedure: ?Transthoracic Echocardiogram Patient: ?SHENG STAPLES S ?(Age): 1965(53y) Med Rec#: ? [id number] ?Sex: ?M ? Site Loc: ? DH ?Ht / Wt: ??183(cm)/120(kg) Pt. Loc: ?Adult Floor ? BSA: ?2.4 Study Date: ?? 08/06/2019 ?Pt. Type: Inpatient Tape: ? Referring: EARLE Reading: Jack Lucas ([id number]) Product Support Specialist: Peter Beaver RDCS, FASE Interpreting Fellow: Tiffanie Hernandez ([phone]) Diagnosis: *ST elevation (STEMI) myocardial infarc tion of unspecified site (I21.3) Rhythm: ? Sinus BP: ? 108/76 HR: ? 74 SUMMARY: 1. The left ventricular chamber size, wa ll thickness, and global systolic function are normal with ejecti on fraction of 64% by Hi's biplane method. There are no left ventri cular segmental wall motion abnormalities. 2. The right ventricular chamber size, w all thickness, and systolic function are within normal limits. 3. There is normal bi-atrial size. 4. There is no hemodynamically significa nt valvular disease. 5. See remainder of report for additiona l findings. 6. IMPRESSION: Compared to prior study f rom 5/4/07, there is no significant change. Findings ? : Study Quality: ? Adequate Left Ventricle: ? The left ventricul ar chamber size is normal. ?Borderline concentric left ventric ular hypertrophy is observed. ?There is no evidence of LVOT obstr uction. ?No ventricular septal defect is vi sualized. ?There is normal global left ventri cular systolic function. ?The quantitative left ventricular ejection fraction by biplane Hi's method is 64%. ?There are no left ventricular segm ental wall motion abnormalities. ?Doppler assessment is consistent w ith normal left sided filling pressure. Left Atrium: ? The left atrium is no rmal in size. 31 ml/m1. ?No atrial septal defect is visuali zed. Right Ventricle: ? Right ventricular chamber size, wall thickness, and systolic function are within normal limi ts. ?The estimated pulmonary artery sys tolic pressure is 25 mmHg. ?The estimated right atrial pressur e is 3 mmHg. Right Atrium: ? The right atrium andreas ears normal. Aortic Valve: ? The aortic valve is tricuspid. ?There is no evidence of aortic trudy ve stenosis. ?There is a trace of aortic regurgi tation present. Mitral Valve: ? The mitral valve andreas ears normal in structure and function. ?There is no evidence of mitral trudy ve leaflet prolapse. ?There is trace mitral regurgitatio n present. Tricuspid Valve: ? The tricuspid trudy ve appears normal in structure and function. ?There is trace tricuspid regurgita tion present. Pulmonic Valve: ? The pulmonic valve appears normal in structure and function. Pericardium: ? The pericardium appea rs normal and there is no evidence of a pericardial effusion. Aorta: ? The aortic root is normal i n size. ?The ascending aorta is normal in s ize. ?There is no evidence of coarctatio n of the aorta. Pulmonary Artery: ? The main pulmona ry artery appears normal. Venous: ? The inferior vena cava andreas ears normal in size. ?There is a greater than 50% respir atory change in the inferior vena cava dimension. Misc: ? See remainder of report for additional findings. ?Two-dimensional echo, spectral Dop pler and color Doppler performed. Chambers 2D ?Value ?Units (Range) ? IVSd (2D) ? 1.05 ? cm ? LVPWd (2D) ?1.06 ? cm ? IVS:LVPW ratio (2D) 0.99 ? ratio ? RWT (2D) ?0.46 ? ratio ? RWT PW (2D) ? 0.46 ? ratio ? LVIDd (2D) ?4.6 ?cm ? LVIDs (2D) ?3.43 ? cm ? LVIDd (2D) index ?1.92 ? cm/m2 ? LVIDs (2D) index ?1.43 ? cm/m2 ? LV FS (2D) ?25.32 ?% ? EF Teichholz (2D) ?? 50.04 ?% ? Ao root diameter (2D3.55 ? cm (2.1 - 3.6) ? Ascending Ao ?3.16 ? cm (2 - 3.5) ? Volumes/Mass ?Value ?Units (Range) ? LA Area 4 CH ?24 ? cm2 (<21) ? LA ESV BP (A/L) inde32.8 ? ml/m2 ? RA AREA 4CH ? 16 ? cm2 ? LA ESV BP (MOD) inde31 ? ml/m2 ? LV ESV SP 4CH (MOD) 35.48 ? ml ? LV ESV SP 2CH (MOD) 34.73 ? ml ? LV EDV BP ? 98.95 ?ml ? LV ESV BP ? 35.68 ?ml ? LV EDV BP index ? 41.22 ?ml/m2 ? LV ESV BP index ? 14.87 ?ml/m2 ? BP EF (MOD) ? 63.93 ?% ? LV mass (2D) ?170.53 ? g ? LV mass (2D) index ??71.04 ?g/m2 ? Diastolic/Systolic Function ?Value ?Units (Range) ? MV E-wave Vmax ?0.88 ? m/sec ? MV deceleration sfkm427.89 ? m sec ? MV A-wave Vmax ?0.85 ? m/sec ? MV E:A ratio ?1.03 ? ratio ? LV septal e' Vmax ?? 0.08 ? m/sec ? LV lateral e' Vmax ??0.11 ? m/sec ? LV average e' Vmax ??0.1 ?m/sec ? LV E:e' septal ratio11 ? ratio ? LV E:e' lateral rati8 ?ratio ? LV average E:e' rati9.27 ? ratio ? Aortic Valve ?Value ?Units (Range) ? AV Vmax ? 1.31 ? m/sec ? AV peak gradient ?6.88 ? mmHg ? LVOT Vmax ? 0.99 ? m/sec ? LVOT peak gradient ??3.9 ?mmHg ? DOI (Vmax) ?0.75 ? ratio ? Tricuspid Valve ?Value ?Units (Range) ? TR Vmax ? 2.33 ? m/sec ? TR peak gradient ?22 ? mmHg ? RAP ? 3 ?mmHg ? RVSP ?25 ? mmHg ? Wall Motion: Segment Name ?Rest ? Base-Anteroseptal ?? Normal ? Base-Anterior ? Normal ? Base-Anterolateral ??Normal ? Base-Posterolateral Normal ? Base-Inferior ? Normal ? Base-Inferoseptal ?? Normal ? Mid-Anteroseptal ?Normal ? Mid-Anterior ?Normal ? Mid-Anterolateral ?? Normal ? Mid-Posterolateral ??Normal ? Mid-Inferior ?Normal ? Mid-Inferoseptal ?Normal ? Barnard-Septal ? Normal ? Barnard-Anterior ? Normal ? Barnard-Lateral ?Normal ? Barnard-Inferior ? Normal ? Barnard-Tip ?Normal ? This report has been electronically sign ed by: _ Jack Lucas MD ? 08/06/2019 09:39:30 Images reviewed and interpretation verif ied [facility] Cardiac Ultrasound Laboratory Procedure Note Jack Lucas MD - 08/06/2019Forma tting of this note might be different from the original. Procedure: Transthoracic Echocardiogram Patient: SHENG Oreilly (Age): [birth year](53y) Med Rec#: [id number] Sex: M [place] Loc[place] [facility] Ht / Wt: 183(cm)/120(kg) Pt. Loc: Adult Floor BSA: 2.4 Study Date: 08/06/2019 Pt. Type: Inpatie nt Tape: Referring: EARLE Reading: Jack Lucas ([id number]) Product Support Specialist: Peter Beaver RDCS, FASE Interpreting Fellow: Tiffanie Hernandez ([phone]) Diagnosis: *ST elevation (STEMI) myocardial infarc tion of unspecified site (I21.3) Rhythm: Sinus BP: 108/76 HR: 74 SUMMARY: 1. The left ventricular chamber size, wa ll thickness, and global systolic function are normal with ejecti on fraction of 64% by Hi's biplane method. There are no left ventri cular segmental wall motion abnormalities. 2. The right ventricular chamber size, w all thickness, and systolic function are within normal limits. 3. There is normal bi-atrial size. 4. There is no hemodynamically significa nt valvular disease. 5. See remainder of report for additiona l findings. 6. IMPRESSION: Compared to prior study f rom 07/14/06, there is no significant change. Findings : Study Quality: Adequate Left Ventricle: The left ventricular joshua mber size is normal. Borderline concentric left ventricular hypertrophy is observed. There is no evidence of LVOT obstructio n. No ventricular septal defect is visuali zed. There is normal global left ventricular systolic function. The quantitative left ventricular eject ion fraction by biplane Hi's method is 64%. There are no left ventricular segmental wall motion abnormalities. Doppler assessment is consistent with n ormal left sided filling pressure. Left Atrium: The left atrium is normal i n size. 31 ml/m1. No atrial septal defect is visualized. Right Ventricle: Right ventricular chamb er size, wall thickness, and systolic function are within normal limi ts. The estimated pulmonary artery systolic pressure is 25 mmHg. The estimated right atrial pressure is 3 mmHg. Right Atrium: The right atrium appears n ormal. Aortic Valve: The aortic valve is tricus pid. There is no evidence of aortic valve st enosis. There is a trace of aortic regurgitatio n present. Mitral Valve: The mitral valve appears n ormal in structure and function. There is no evidence of mitral valve le aflet prolapse. There is trace mitral regurgitation pre sent. Tricuspid Valve: The tricuspid valve andreas ears normal in structure and function. There is trace tricuspid regurgitation present. Pulmonic Valve: The pulmonic valve appea rs normal in structure and function. Pericardium: The pericardium appears nor mal and there is no evidence of a pericardial effusion. Aorta: The aortic root is normal in size . The ascending aorta is normal in size. There is no evidence of coarctation of the aorta. Pulmonary Artery: The main pulmonary art mo appears normal. Venous: The inferior vena cava appears n ormal in size. There is a greater than 50% respiratory change in the inferior vena cava dimension. Misc: See remainder of report for additi onal findings. Two-dimensional echo, spectral Doppler and color Doppler performed. Chambers 2D Value Units (Range) IVSd (2D) 1.05 cm LVPWd (2D) 1.06 cm IVS:LVPW ratio (2D) 0.99 ratio RWT (2D) 0.46 ratio RWT PW (2D) 0.46 ratio LVIDd (2D) 4.6 cm LVIDs (2D) 3.43 cm LVIDd (2D) index 1.92 cm/m2 LVIDs (2D) index 1.43 cm/m2 LV FS (2D) 25.32 % EF Teichholz (2D) 50.04 % Ao root diameter (2D3.55 cm (2.1 - 3.6) Ascending Ao 3.16 cm (2 - 3.5) Volumes/Mass Value Units (Range) LA Area 4 CH 24 cm2 (<21) LA ESV BP (A/L) inde32.8 ml/m2 RA AREA 4CH 16 cm2 LA ESV BP (MOD) inde31 ml/m2 LV ESV SP 4CH (MOD) 35.48 ml LV ESV SP 2CH (MOD) 34.73 ml LV EDV BP 98.95 ml LV ESV BP 35.68 ml LV EDV BP index 41.22 ml/m2 LV ESV BP index 14.87 ml/m2 BP EF (MOD) 63.93 % LV mass (2D) 170.53 g LV mass (2D) index 71.04 g/m2 Diastolic/Systolic Function Value Units (Range) MV E-wave Vmax 0.88 m/sec MV deceleration beoi437.89 msec MV A-wave Vmax 0.85 m/sec MV E:A ratio 1.03 ratio LV septal e' Vmax 0.08 m/sec LV lateral e' Vmax 0.11 m/sec LV average e' Vmax 0.1 m/sec LV E:e' septal ratio11 ratio LV E:e' lateral rati8 ratio LV average E:e' rati9.27 ratio Aortic Valve Value Units (Range) AV Vmax 1.31 m/sec AV peak gradient 6.88 mmHg LVOT Vmax 0.99 m/sec LVOT peak gradient 3.9 mmHg DOI (Vmax) 0.75 ratio Tricuspid Valve Value Units (Range) TR Vmax 2.33 m/sec TR peak gradient 22 mmHg RAP 3 mmHg RVSP 25 mmHg Wall Motion: Segment Name Rest Base-Anteroseptal Normal Base-Anterior Normal Base-Anterolateral Normal Base-Posterolateral Normal Base-Inferior Normal Base-Inferoseptal Normal Mid-Anteroseptal Normal Mid-Anterior Normal Mid-Anterolateral Normal Mid-Posterolateral Normal Mid-Inferior Normal Mid-Inferoseptal Normal Barnard-Septal Normal Barnard-Anterior Normal Barnard-Lateral Normal Barnard-Inferior Normal Barnard-Tip Normal This report has been electronically sign ed by: _ Jack Lucas MD 08/06/2019 09:39: 30 [facility] Tiffanie Espino MD ECHO ORDERABLES POCT Glucose (08/06/2019 7:18 AM EDT) P athologist Signature POC Glucose 170 65 - 199 ADRY OROPEZA mg/dL [facility] Comment: Supplemental ranges: <140 mg/dL before meals <180 mg/dL all other times of the day Specimen Anatomical Collection Method Collection Time Receive d Time (Source) Location / / Volume Laterality Blood specimen 08/06/2019 7:18 AM 020 7:18 (specimen) EDT AM EDT Tariq Guerrero MD POINT OF CARE TEST ORDERABLE S Performing Organization Address City/State/ZIP Code Phon e Number [place] [id number] XR Chest One View (08/06/2019 6:52 AM EDT) Anatomical Region Laterality Modality Chest N/A Digital Radiography Specimen (Source) Anatomical Location Collection Method / Collectio n Time Received Time / Laterality Volume Impressions 08/06/2019 8:34 AM EDT Pulmonary vasculature is prominent with increased interstitial markings consistent with likely pulmonary edema. Pulmonary vascular indistinctness suggests edema. A diffuse infectious or inflammatory process cannot be excluded. No pneumothorax no pleural fluid. Thank you for letting us participate in the care of this patient. For questions regarding this report, please contact e number below. ? Narrative 08/06/2019 8:34 AM EDT EXAMINATION: XR CHEST ONE VIEW CLINICAL HISTORY: 53-year-old male s/p S VICK TECHNIQUE: 1 view of the chest COMPARISON: 08/06/2019 FINDINGS: Cardiac and mediastinal contour are josué lar to prior imaging. Lung volumes remain low. Central pulmonary vasculatur e is prominent and ill-defined. No focal airspace consolidation. Diffusely increased interstitial marking s. Procedure Note Violeta Fortune MD - 08/06/2019Forma tting of this note might be different from the original. EXAMINATION: XR CHEST ONE VIEW CLINICAL HISTORY: 53-year-old male s/p S VICK TECHNIQUE: 1 view of the chest COMPARISON: 08/06/2019 FINDINGS: Cardiac and mediastinal contour are josué lar to prior imaging. Lung volumes remain low. Central pulmonary vasculatur e is prominent and ill-defined. No focal airspace consolidation. Diffusely increased interstitial marking s. IMPRESSION Pulmonary vasculature is prominent with increased interstitial markings consistent with likely pulmonary edema. Pulmonary vascular indistinctness suggests edema. A diffuse infectious or inflammatory process cannot be excluded. No pneumothorax no pleural fluid. Thank you for letting us participate in the care of this patient. For questions regarding this report, please contact e number below. Electronically signed by: Violeta petty MD, [facility] ([phone]), at 08/06/2019 8:34 AM Tiffanie Espino MD IMG DX ORDERABLES EKG 12 Lead (08/06/2019 6:13 AM EDT) Component Value Ref Range Test Analysis Performed Pathologis t Method Time At Signature Ventricular rate 80 BPM MUSE SYSTEM Atrial Rate 80 BPM MUSE SYSTEM P-R Interval 190 ms MUSE SYSTEM QRS Duration 90 ms MUSE SYSTEM Q-T Interval 384 ms MUSE SYSTEM QTC Calculated 442 ms MUSE SYSTEM (Bezet) Calculated P Nenzel 68 degrees MUSE SYSTEM Calculated R Nenzel 59 degrees MUSE SYSTEM Calculated T Nenzel 24 degrees MUSE SYSTEM INTERPRETATION Normal sinus rhythm MUSE SYSTEM Normal ECG When compared with ECG of 06-AUG-2019 02:05, (unconfirmed) No significant change was found I personally reviewed the tracing and edited the fellows int erpretation Confirmed by fellow MD Dee, Jaylin Oviedo ([id number]) on 08/06/19 20 1:18:49 PM Confirmed by MD Yaima, Timothy Collins ([id number]) on 08/07/2019 9 :47:42 AM Specimen Anatomical Collection Method Collection Time Receive d Time (Source) Location / / Volume Laterality 08/06/2019 6:13 AM 0 9:47 EDT AM EDT Tiffanie Espino MD ECG ORDERABLES Performing Organization Address City/[facility]/ZIP Code Phon e Number MUSE SYSTEM Sedimentation rate (08/06/2019 5:35 AM EDT) P athologist Signature Sed Rate 8 2 - 37 [facility] mm/hr [facility] Comment: Effective February 20, 2019 new capillar y photometric technology has resulted in a change in reference ranges. It is r ecommended that each ESR result be reviewed with its own age appropriate re ference range. Specimen Anatomical Collection Method Collection Time Receive d Time (Source) Location / / Volume Laterality Blood specimen Venous Draw / 08/06/2019 5:35 AM 2019 5:41 (specimen) Unknown EDT AM EDT Resulting Agency Comment Spec In Lab Philip Johnson MD HEMATOLOGY ORDERABLES Performing Organization Address [facility]/ZIP [place] [address] CRP, acute inflammation (08/06/2019 5:35 AM EDT) P athologist Signature CRP 4.3 <=4.9 mg/L [facility] Specimen Anatomical Collection Method Collection Time Receive d Time (Source) Location / / Volume Laterality Blood specimen Venous Draw / 08/06/2019 5:35 AM 2019 5:44 (specimen) Unknown EDT AM EDT Resulting Agency Comment Spec In Lab Philip Johnson MD CHEMISTRY ORDERABLES Performing Organization Address City/[facility] [place] [address] (ABNORMAL) Differential, Automated (08/06/2019 5:35 AM EDT) Patholo gist Method Time Signature Neutrophils % 73.5 % [facility] Neutr Abs (ANC) 6.30 (H) 1.70 - [facility] 6.10 [facility] x10(3)/[facility] LABORATORY Lymphocytes % 16.2 % [facility] Lymphocytes Abs 1.4 0.9 - 3.2 [facility] x10(3)/[facility] LABORATORY Monocytes % 5.5 % [facility] Monocyte Abs 0.5 0.3 - 0.9 [facility] x10(3)/[facility] LABORATORY Eosinophils % 3.6 % [facility] Eosinophils Abs 0.3 0.0 - 0.4 [facility] x10(3)/[facility] LABORATORY Basophils % 0.6 % [facility] Basophils Abs 0.0 0.0 - 0.1 [facility] x10(3)/[facility] LABORATORY Immature Gran % 0.60 % [facility] Comment: Immature granulocytes(IG's)percentage an d absolute count will include metamyelocytes, myelocytes, and promyelo cytes. Blood smears from CBCs yielding IG's will be scanned manually for concor dance. If this scan disagrees with the automated IG or if promyelocytes are not ed, a manual differential will be performed. Julianne Gran Abs 0.05 (H) 0.00 - 0.04 x10(3)/[facility] LABORATORY Specimen Anatomical Collection Method Collection Time Receive d Time (Source) Location / / Volume Laterality Blood specimen 08/06/2019 5:35 AM 020 5:41 (specimen) EDT AM EDT Resulting Agency Comment Spec In Lab Mendoza Richards MD HEMATOLOGY ORDERABLES Performing Organization Address City/State/[place] [address] (ABNORMAL) Hemogram (08/06/2019 5:35 AM EDT) Analysis Performed At Patho logist Time Signature WBC 8.6 4.0 - 9.5 [facility] x10(3)/[facility] LABORATORY RBC 4.33 (L) 4.58 - [facility] 5.54 [facility] x10(6)/[facility] LABORATORY Hemoglobin 13.4 (L) 13.7 - [facility] 16.[facility] gm/dL [facility] Hematocrit 40.6 40.5 - [facility] 48.5 % [facility] MCV 93.8 (H) 82.9 - [facility] 93.1 [facility] LABORATORY MCH 30.9 27.5 - ADRY JOHNNA 32.1 pg [facility] MCHC 33.0 32.0 - [facility] 35.7 gm/dL [facility] Platelets 192 145 - 357 [facility] x10(3)/[facility] LABORATORY RDWSD 45.2 (H) 36.0 - [facility] 45.0 [facility] LABORATORY RDWCV 13.2 11.4 - [facility] 13.8 % [facility] MPV 9.5 7.6 - 12.9 [facility] LABORATORY nRBC % Auto 0.0 % [facility] nRBC Abs Auto 0.000 0.000 - [facility] 0.000 [facility] x10(3)/[facility] LABORATORY Specimen Anatomical Collection Method Collection Time Receive d Time (Source) Location / / Volume Laterality Blood specimen 08/06/2019 5:35 AM 020 5:41 (specimen) EDT AM EDT Resulting Agency Comment Spec In Lab Mendoza Richards MD HEMATOLOGY ORDERABLES Performing Organization Address City/State/Z[place] [address] Lipid Panel (Reflex Direct LDL) (08/06/2019 5:35 AM EDT) P athologist Signature Chol, Total 89 mg/dL [facility] Comment: Lower Risk: <200 mg/dL Average Risk: 200-239 mg/dL Higher Risk: >vp=287 mg/dL Triglycerides 89 mg/dL [facility] Comment: Average Risk/Lower Risk: <150 mg/dL Borderline High Risk: 150-199 mg/dL High Risk: 200-499 mg/dL Very High Risk: >jx=157 mg/dL HDL 38 mg/dL [facility] Comment: Males: ?? Higher Risk: <40 mg/dL Females: ?? HIgher Risk: <50 mg/dL LDL Cholesterol 33 mg/dL [facility] Comment: Lowest Risk: <100 mg/dL Lower Risk: 100-129 mg/dL Borderline High Risk: 130-159 mg/dL High Risk: 160-189 mg/dL Very High Risk: >gn=884 mg/dL Chol/HDL Ratio 2.3 ratio [facility] Lipid Interpretation See Note [facility] LABOR[facility]ORY Comment: Lipid management should be guided by a p atient? s ASCVD risk, goals and preferences. ACC/AHA Guidelines recommend high intens ity statin if clinical ASCVD or LDL greater than or equal to 190 mg/dL. http://VoltDB.com/PHG-NCW-Matibquee Adults aged 40-75 with LDL 70-189 mg/dL should have their 10 year ASCVD risk estimated with the ACC/AHA ASCVD risk es timator http://tools.acc.org/DKUON-Rrml-Gvshnlkj r/ Statin should be discussed if risk great er than or equal to 7.5% in non-diabetics. With diabetes, moderate i ntensity statin is recommended if risk less than 7.5%, high intensity if risk g reater than or equal to 7.5%. Annual lipid monitoring on statins is no t necessary. Evaluate secondary causes of Triglycerid es greater than 500 mg/dL or LDL greater than 190 mg/dL: See table 6 of A CC/AHA Guideline. Lifestyle modification is a critical com ponent of ASCVD risk reduction. Specimen Anatomical Collection Method Collection Time Receive d Time (Source) Location / / Volume Laterality Blood specimen 08/06/2019 5:35 AM 020 5:41 (specimen) EDT AM EDT Resulting Agency Comment Spec In Lab Tiffanie Espino MD CHEMISTRY ORDERABLES Performing Organization Address City/State/[place] [address] (ABNORMAL) Hemoglobin A1c (08/06/2019 5:35 AM EDT) Analysis Performed At Patho logist Time Signature Hemoglobin A1C 6.3 (H) 4.3 - 5.6 [facility] Comment: Reference Range: 4.3 - 5.6% 5.7 - 6.4% - Increased Risk of Developin g Diabetes Mellitus >= 6.5% - Consistent with diagnosis of D iabetes Mellitus In the absence of hyperglycemia (i.e. pl asma glucose > 200 mg/dL) or classic symptoms of hyperglycemia a repeat measu rement of HbA1c should be performed on a separate sample to confirm the diagnos is. Diagnosis and Classification of Diabetes Mellitus, Diabetes Care 2013; 36: Suppl. 1, S67-40 Est Avg Gluc 135 mg/dL ADRY OROPEZA [facility] Comment: eAG equivalents for HbA1c percentages: HbA1c(%) ?eAG(mg/dL) 6.0 ?126 6.5 ?140 7.0 ?154 7.5 ?169 8.0 ?183 8.5 ?197 9.0 ?212 9.5 ?226 10.0 ? 240 Limitations: The eAG calculation has not been validated on women, individuals below 18 years old and above 70 years old, and individuals with hemoglobinopathies. Additional resources are available on [facility] ADA website. Royce VILLASENOR, Stephany J, China R, et al. ??Tr anslating the A1C assay into estimated average glucose values. ??Diabetes Care 2008:31(8):7715-6957. Specimen Anatomical Collection Method Collection Time Receive d Time (Source) Location / / Volume Laterality Blood specimen 08/06/2019 5:35 AM 020 5:41 (specimen) EDT AM EDT Resulting Agency Comment Spec In Lab Tiffanie Espino MD CHEMISTRY ORDERABLES Performing Organization Address City/State/ZIP Code Phon [place] [address] (ABNORMAL) Troponin (08/06/2019 5:35 AM EDT) athologist Signature Troponin-T 0.31 (H) 0.00 - [facility] 0.00 ng/mL [facility] Comment: The 99th percentile for Troponin T is le ss than 0.01 ng/mL, any detectable cTnT concentration using this assay should be considered elevated. According to the third universal definit ion of myocardial infarction the following criteria with a clinical prese ntation consistent with acute myocardial ischemia meets the diagnosis for a myocardial infarction (ID). Detection of a rise and/or fall of cTnT, with at least one value greater than the 99th percentile (> or = 0.01) and wi th at least one of the following ?? Symptoms of ischemia ?? New or presumed new significant ST-se gment-T wave (ST-T) changes or new left bundle branch block (LBBB) ?? Development of pathologic Q waves in the ECG ?? Imaging evidence of new loss of viabl e myocardium or new regional wall motion abnormality ?? Identification of an intracoronary th rombus by angiography or autopsy Samples for cTnT testing should be obtai mckenzie serially upon first assessment and again 3 to 6 hours later. If the clinica l suspicion is high and previous samples have been negative an additional sample may be indicated. Reference: Third Perkins Definition of Myocardial Infarction. Journal of the [place] [employer] 2012;60:1581-98 Specimen Anatomical Collection Method Collection Time Receive d Time (Source) Location / / Volume Laterality Blood specimen 08/06/2019 5:35 AM 020 5:41 (specimen) EDT AM EDT Resulting Agency Comment Spec In Lab Tiffanie Espino MD CHEMISTRY ORDERABLES Performing Organization Address City/State/[place] [address] (ABNORMAL) Basic Metabolic Panel (non-fasting) (08/06/2019 5:35 AM EDT) P athologist Signature Glucose Lvl 250 (H) 65 - 199 [facility] mg/dL [facility] Comment: Diabetes: >=200 mg/dL plus symp toms BUN 12 10 - 20 mg/dL [facility] Creatinine 1.26 0.80 - 1.50 mg/dL [facility] Sodium 138 135 - 145 mmol/L [facility] Potassium 4.5 3.5 - 5.0 mmol/L [facility] Comment: Please note: ??Patients with WBC >100,00 0 may have falsely elevated Potassium levels. ??For accurate Potassium quantif ication in these patients send serum separator tube (gold top) for subsequent determinations. ??Contact the Clinical Chemistry Laboratory if there are any qu estions. Chloride 103 98 - 107 mmol/L [facility] CO2 24 22 - 31 mmol/L [facility] Anion Gap 11 5 - 15 mmol/L [facility] Calcium 8.6 8.5 - 10.5 mg/dL [facility] Estimated GFR 65 >=60 mL/min/1.73 m?? [facility] Comment: The eGFR was calculated using the CKD-EP I equation. As with all creatinine based estimates of kidney function, eGFR values calculated with the CKD-EPI equation are not accurate in patients wi th acute kidney failure, extremes of body mass or the acutely ill. [email or web address]/[facility]UEnkf eGFR 76 >=60 mL/min/1.73 m?? [facility] Comment: The eGFR was calculated using the CKD-EP I equation. As with all creatinine based estimates of kidney function, eGFR values calculated with the CKD-EPI equation are not accurate in patients wi th acute kidney failure, extremes of body mass or the acutely ill. http://Boomi/[facility]kf Specimen Anatomical Collection Method Collection Time Receive d Time (Source) Location / / Volume Laterality Blood specimen 08/06/2019 5:35 AM 020 5:41 (specimen) EDT AM EDT Resulting Agency Comment Spec In Lab Tiffanie Espino MD CHEMISTRY ORDERABLES Performing Organization Address City/State/[place] [address] (ABNORMAL) POCT Glucose (08/06/2019 5:32 AM EDT) P athologist Signature POC Glucose 215 (H) 65 - 199 [facility] mg/dL [facility] Comment: Supplemental ranges: <140 mg/dL before meals <180 mg/dL all other times of the day Specimen Anatomical Collection Method Collection Time Receive d Time (Source) Location / / Volume Laterality Blood specimen 08/06/2019 5:32 AM 020 5:32 (specimen) EDT AM EDT Tariq Guerrero MD POINT OF CARE TEST ORDERABLE S Performing Organization Address City/State/[place] [address] CARDIAC CATHETERIZATION (08/06/2019 4:38 AM EDT) Anatomical Region Laterality Modality Other Specimen (Source) Anatomical Location Collection Method / Collectio n Time Received Time / Laterality Volume Narrative 08/09/2019 2:54 PM EDT ?[facility] ? Cardiac Cathete rization/Intervention Report ? Patient Name: Sheng, Samy ? Procedure Date: 08/06/2019 ? A #: [id number] ? Primary Physician: Jung Merino ? Case #: [id number] ? File Name: [id number] ? Catheterization Order Number: [id number] ? [facility] ? Final Report [place], [place] ? Patient Name: ? aSmy Patricio ? ID#: ?[id number] ? : ?1965 ? Procedure Date: ? August 06, 2019 ? Case #: ? [id number] ? Room: ? 6 ? Case Physician: ? Jung worley M.D. ?Start: ?02:39 ?Fellow: ? Jose S Glynn ya, M.D. ? Admission: ??08/06/2019 ? Discharge: ??08/07/2019 ? Referring Physician: ??Shamir Hall ? Procedures: ?* Coronary Angiography ?* Left Heart Catheterization ?* Coronary Ultrasound ?* Coronary Stent Insertion ? Pre Case Status: ?These procedures were performed on an emergent basis. ? History ?Samy Patricio is a 53 year old man. He has hypertension and a family ?history of coronary artery dise ase. The patient's smoking status is ?Current with Current - Every Da y frequency, using cigarettes. Cigarette ?use is Heavy (>=10/day). He has hypercholesterolemia managed with lipid ?therapy. The patient has diabet es managed with oral medication. 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 The pat ient has a prior history of coronary ?artery disease. He is status po st an acute ST elevation myocardial ?infarction. The patient had a r emote coronary intervention procedure. ?Prior to the initiation of this procedure, the patient was designated as ?ASA Class IV. The CSHA clinical frailty scale is 4: Vulnerable. ? Diagnostic Tests: ?Electrocardiography: ? EKG was assessed by ECG. EKG was Abnormal. EKG showed ST Deviation ? >= 0.5 mm. ?Medications Prior to Procedure: ? Angiotensin Converting E nzyme Inhibitor, Aspirin, Long Acting ? Nitrate, Statin and Thro mbolytic (any). ? Indications for Diagnostic Cath: ?The priority of the diagnostic procedure was Emergent. The indication for ?the label sewer visit is ACS less than or equal to 24 hrs. Chest pain ?symptom assessment was: Typical Angina. This patient had cardiovascular ?instability due to acute heart failure and hemodynamic instability. ? Technique: ?A 6 SLFr sheath was inserted in the right radial artery utilizing the ?Seldinger technique. The left c oronary artery was injected utilizing a ?5Fr TIG 4.0 catheter. A 5Fr TIG 4.0 catheter was used to inject the right ?coronary artery. Left ventricul ar pressure was performed with a 5Fr TIG ?4.0 catheter. Coronary stent in sertion was performed and the equipment ?utilized will be described in [facility] intervention summary section. 6,000 ?units of heparin were administe red. A total of 200cc of Omnipaque were ?opened, 110cc of Omnipaque were administered and 90cc of Omnipaque were ?wasted. Radiation: Fluoro time was 11.6 minutes, dose area product was ?54,800 mGYcm2 and air kerma was 806 mGY. See the case log for additional ?details. ?The patient received the follow ing medications prior to and during the ?procedure: ? Unfractionated Heparin a nd Clopidogrel. ? Hemodynamics: ?Left Heart Pressures ? Resting: ? Syst D iast ? EDP ?a ?v ? m ?Ao 92 ?62 ?75 ?LV ? 21 ?Comments: ??No gradient on LV > Ao pullback. ? Coronary Angiography: ?Dominance: Right ?Left Main ? There was mild diffuse ( <=25% stenosis) disease of the entire vessel ? segment of the left main artery. ?Left Anterior Descending ? There was mild diffuse ( <=25% stenosis) disease of the entire vessel ? segment of the left ante rior descending artery (LAD). ??The mid ? segment of the LAD had a single discrete 30% stenosis. ?Left Circumflex ? There was mild diffuse ( <=25% stenosis) disease of the entire vessel ? segment of the left circ umflex artery (LCX). ??The proximal segment ? of the LCX had a single discrete 20% stenosis. ??There also was a 0% ? stenosis of the mid segm ent of the LCX. ??The previously placed stent ? is patent. ?Right Coronary Artery ? There was mild diffuse ( <=25% stenosis) disease of the entire vessel ? segment of the right cor onary artery (RCA). ??The ostial segment of ? the RCA had a calcified single discrete 95% stenosis. ??There also ? was a 30% calcified long segmental stenosis of the mid segment of ? the RCA. ??There was a 0 % stenosis of the distal 1 segment of the ? RCA. ??The previously pl aced stent is patent. The distal 2 segment of ? the RCA had a long segme ntal 40% stenosis. ? Intravascular Imaging/Physiology: ?Intravascular Ultrasound was pe rformed in the ostial RCA using a 6 Fr JR ?4 guiding catheter and a 3.1 Fr Refinity 42 MHz catheter using auto 1 ?mm/sec pullback. ??Imaging was successful. ??Image quality was good. ??The ?ostial RCA showed moderate diff use atherosclerotic plaque with scattered ?two quadrant calcification. ?Additional Findings: IVUS perfo rmed using mechanical pullback of the mid ?RCA to the ostium of the vessel following stent deployment. Imaging ?revealed 2 quadrant calcificati on and underexpansion of the proximal ?stent. The stent appeared well apposed. Post dilation was subsequently ?performed. ? Indication for Intervention: ?Coronary intervention was indic ated for primary therapy for an acute ?myocardial infarction. The prio rity for the procedure was Emergent. The ?NCDR indication for the procedu re was STEMI (after successful lytics). ?STEMI onset was 08/06/2019 at 1 1:00 PM, estimated. Thrombolytics were ?administered on 08/06/2019 at 1 2:30 AM. ? Intervention Summary: ?Right Coronary Artery ? Ostial 95% ? Stent insertion was performed on the 95% stenosis in the ? ostial segment of the RCA. This was a de adonis lesion. ? According to th e ACC/AHA classification system, this lesion ? was a type B2 h igh risk lesion. Primary prevention of ? restenosis was the indication for stent insertion. This was ? the culprit les ion. A guidewire was placed across this lesion. ? Vessel flow pre intervention was ENE 3. Lesion length was ? 12mm. ? Stent insertion was accomplished through a 6 Fr. JR 4 guide. ? The lesion was predilated with a 2.00mm EUPHORA 12 MM balloon ? with a maximum inflation pressure of 12 atmospheres. ??A ? premounted 2.50 x 18 mm Resolute JENNIFER ??(EDEN) was deployed with ? a maximum infla tion pressure of 15 atmospheres. ??Following ? stent deploymen t, the lesion was dilated using a 2.50mm NC ? EUPHORA 12 MM b alloon with a maximum inflation pressure of 20 ? atmospheres. ? The final outco me was defined as successful. There was no ? residual stenos is following this intervention. The final ENE ? flow was 3. ? Vascular Access: ?Vascular Access Management: ? Mechanical Compression o f the right radial artery access site was ? performed. ? Dual Antiplatelet (DAPT) Recommendations : ?Drug eluting stent (EDEN) insert ed. ?P2Y12 Loading dose Clopidgrel 3 00 mg PO given in lab. ?Recommended anti-platelet/anti- thrombotic regimen: ?Start aspirin 81 mg daily now a nd continue for indefinitely. ?Continue prasugrel 10 mg daily for 12 months then stop. ?These recommendations are made at the time of the intervention. Patient ?and provider preferences or a c hanging clinical situation may require ?modification of this regimen. C onsult [facility] Interventional Cardiology for ?questions. ?This patient has a high DAPT sc ore and may benefit from prolonged (12- 30 ?months) dual antiplatelet thera py. If the patient has completed 12 months ?of DAPT without having a major bleeding or ischemic event and the patient ?is NOT on chronic anticoagulati on. This should be used for guidance in ?the overall conversation about prolonged dual antiplatelet therapy and ?not as a recommendation for or against any medical treatment. Consult ?http://tools.acc.org/DAPTriskap p/#!/content/calculator/ or [facility] ?Interventional Cardiology for q uestions. ? Conclusions: ?* One vessel coronary artery di sease (RCA) ?* Elevated left ventricular end diastolic pressure ?* Successful stent insertion of the ostial RCA lesion ?* See Dual Antiplatelet (DAPT) Recommendations above. ? Complications/Events: ?The patient had no complication s during these procedures. ? Comments: ?Radial provided adequate suppor t; did require sedation due to wrist ?discomfort at beginning of case , very mild spasm seen. ?Postdilation performed to high pressure. IVUS highlighted diffuse disease ?of RCA. ?The attending physician was presen t for the entire procedure. ?Dr. Jung Merino M.D. was present during the moderate sedation ?intraservice time as documented by the sedation nurse. ??Case time = 01:04. ?Dr. Jugn Merino M.D. perf ormed the coronary angiography, left ?heart catheterization, stent inser tion-coronary and IVUS # coronary. ? Jung J Coylewright, ? M.D. ? Electronically Signed by: Jung Kirkpatrick Coylew right, M.D. ? Report Finalized: 08/09/2019 ??14:51 ? Report Last Ammended: 09/12/2019 ??15:41 ? Procedure Note Jung Merino MD - 09/12/2019For matting of this note might be different from the original. [facility] Cardiac Catheterization/Intervention Re port Patient Name: Samy Patricio Procedure Date: 08/06/2019 A #: [id number] Primary Physician: Jung Merino Case #: [id number] File Name: [id number] Catheterization Order Number: [id number] [facility] Final Report [place], [place] Patient Name: Samy Patricio ID#: [id number] : 1965 Procedure Date: August 06, 2019 Case #: [id number] Room: 6 Case Physician: Elisha Montero Start: 02:39 Fellow: Jose Ellison M.D. Admissio n: 08/06/2019 Discharge: 08/07/2019 Referring Physician: Elisha Hall Procedures: * Coronary Angiography * Left Heart Catheterization * Coronary Ultrasound * Coronary Stent Insertion Pre Case Status: These procedures were performed on an e mergent basis. History Samy Patricio is a 53 year old man. He has hypertension and a family history of coronary artery disease. The patient's smoking status is Current with Current - Every Day freque ncy, using cigarettes. Cigarette use is Heavy (>=10/day). He has hyperch olesterolemia managed with lipid therapy. The patient has diabetes manag ed with oral medication. He has sequelae from diabetes. The patient has a prior history of coronary artery disease. He is status post an ac kashia ST elevation myocardial infarction. The patient had a remote co ronary intervention procedure. Prior to the initiation of this procedu re, the patient was designated as ASA Class IV. The [facility] clinical frailty scale is 4: Vulnerable. Diagnostic Tests: Electrocardiography: EKG was assessed by ECG. EKG was Abnorm al. EKG showed ST Deviation >= 0.5 mm. Medications Prior to Procedure: Angiotensin Converting Enzyme Inhibitor , Aspirin, Long Acting Nitrate, Statin and Thrombolytic (any). Indications for Diagnostic Cath: The priority of the diagnostic procedur e was Emergent. The indication for the label sewer visit is ACS less than or equal to 24 hrs. Chest pain symptom assessment was: Typical Angina. This patient had cardiovascular instability due to acute heart failure and hemodynamic instability. Technique: A 6 SLFr sheath was inserted in the rig ht radial artery utilizing the Seldinger technique. The left coronary artery was injected utilizing a 5Fr TIG 4.0 catheter. A 5Fr TIG 4.0 cat heter was used to inject the right coronary artery. Left ventricular press ure was performed with a 5Fr TIG 4.0 catheter. Coronary stent insertion was performed and the equipment utilized will be described in the inter vention summary section. 6,000 units of heparin were administered. A t otal of 200cc of Omnipaque were opened, 110cc of Omnipaque were adminis tered and 90cc of Omnipaque were wasted. Radiation: Fluoro time was 11.6 minutes, dose area product was 54,800 mGYcm2 and air kerma was 806 mGY . See the case log for additional details. The patient received the following medi cations prior to and during the procedure: Unfractionated Heparin and Clopidogrel. Hemodynamics: Left Heart Pressures Resting: Syst Diast EDP a v m Ao 92 62 75 LV 21 Comments: No gradient on LV > Ao pullba ck. Coronary Angiography: Dominance: Right Left Main There was mild diffuse (<=25% stenosis) disease of the entire vessel segment of the left main artery. Left Anterior Descending There was mild diffuse (<=25% stenosis) disease of the entire vessel segment of the left anterior descending artery (LAD). The mid segment of the LAD had a single discret e 30% stenosis. Left Circumflex There was mild diffuse (<=25% stenosis) disease of the entire vessel segment of the left circumflex artery ( LCX). The proximal segment of the LCX had a single discrete 20% st enosis. There also was a 0% stenosis of the mid segment of the LCX. The previously placed stent is patent. Right Coronary Artery There was mild diffuse (<=25% stenosis) disease of the entire vessel segment of the right coronary artery (R CA). The ostial segment of the RCA had a calcified single discrete 95% stenosis. There also was a 30% calcified long segmental sten osis of the mid segment of the RCA. There was a 0% stenosis of the distal 1 segment of the RCA. The previously placed stent is pat ent. The distal 2 segment of the RCA had a long segmental 40% stenos is. Intravascular Imaging/Physiology: Intravascular Ultrasound was performed in the ostial RCA using a 6 Fr JR 4 guiding catheter and a 3.1 Fr Refinit y 42 MHz catheter using auto 1 mm/sec pullback. Imaging was successful . Image quality was good. The ostial RCA showed moderate diffuse athe rosclerotic plaque with scattered two quadrant calcification. Additional Findings: IVUS performed usi ng mechanical pullback of the mid RCA to the ostium of the vessel followi ng stent deployment. Imaging revealed 2 quadrant calcification and u nderexpansion of the proximal stent. The stent appeared well apposed. Post dilation was subsequently performed. Indication for Intervention: Coronary intervention was indicated for primary therapy for an acute myocardial infarction. The priority for the procedure was Emergent. [facility] the procedure was S VICK (after successful lytics). STEMI onset was 08/06/2019 at 11:00 PM, estimated. Thrombolytics were administered on 08/06/2019 at 12:30 AM. Intervention Summary: Right Coronary Artery Ostial 95% Stent insertion was performed on the 95 % stenosis in the ostial segment of the RCA. This was a de adonis lesion. According to the ACC/AHA classification system, this lesion was a type B2 high risk lesion. Primary prevention of restenosis was the indication for stent insertion. This was the culprit lesion. A guidewire was thuan nikki across this lesion. Vessel flow pre intervention was ENE 3 . Lesion length was 12mm. Stent insertion was accomplished throug h a 6 Fr. JR 4 guide. The lesion was predilated with a 2.00mm EUPHORA 12 MM balloon with a maximum inflation pressure of 12 atmospheres. A premounted 2.50 x 18 mm Resolute JENNIFER ( EDEN) was deployed with a maximum inflation pressure of 15 atmo spheres. Following stent deployment, the lesion was dilate d using a 2.50mm NC EUPHORA 12 MM balloon with a maximum in flation pressure of 20 atmospheres. The final outcome was defined as succes sful. There was no residual stenosis following this interv ention. The final ENE flow was 3. Vascular Access: Vascular Access Management: Mechanical Compression of the right rad ial artery access site was performed. Dual Antiplatelet (DAPT) Recommendations : Drug eluting stent (EDEN) inserted. P2Y12 Loading dose Clopidgrel 300 mg PO given in lab. Recommended anti-platelet/anti-thrombot ic regimen: Start aspirin 81 mg daily now and lloyd nue for indefinitely. Continue prasugrel 10 mg daily for 12 m onths then stop. These recommendations are made at the t armin of the intervention. Patient and provider preferences or a changing clinical situation may require modification of this regimen. Consult [facility] Interventional Cardiology for questions. This patient has a high DAPT score and may benefit from prolonged (12-30 months) dual antiplatelet therapy. If t he patient has completed 12 months of DAPT without having a major bleeding or ischemic event and the patient is NOT on chronic anticoagulation. This should be used for guidance in the overall conversation about prolonge d dual antiplatelet therapy and not as a recommendation for or against any medical treatment. Consult http://tools.acc.org/DAPTriskapp/#!/con tent/calculator/ or [facility] Interventional Cardiology for questions . Conclusions: * One vessel coronary artery disease (R CA) * Elevated left ventricular end diastol ic pressure * Successful stent insertion of the ost ial RCA lesion * See Dual Antiplatelet (DAPT) Recommen dations above. Complications/Events: The patient had no complications during these procedures. Comments: Radial provided adequate support; did r equire sedation due to wrist discomfort at beginning of case, very m ild spasm seen. Postdilation performed to high pressure . IVUS highlighted diffuse disease of RCA. The attending physician was present for the entire procedure. Dr. Jung Merino M.D. was prese nt during the moderate sedation intraservice time as documented by the sedation nurse. Case time = 01:04. Dr. Jung Merino M.D. performed the coronary angiography, left heart catheterization, stent insertion- coronary and IVUS # coronary. Jung Merion M.D. Electronically Signed by: Jung raman M.D. Report Finalized: 08/09/2019 14:51 Report Last Ammended: 09/12/2019 15:41 Jung Merino MD CARDIAC CATH ORDERABLES EKG 12 Lead (08/06/2019 2:05 AM EDT) Component Value Ref Range Test Analysis Performed Pathologis t Method Time At Signature Ventricular rate 85 BPM MUSE SYSTEM Atrial Rate 85 BPM MUSE SYSTEM P-R Interval 172 ms MUSE SYSTEM QRS Duration 106 ms MUSE SYSTEM Q-T Interval 382 ms MUSE SYSTEM QTC Calculated 454 ms MUSE SYSTEM (Bezet) Calculated P Nenzel 68 degrees MUSE SYSTEM Calculated R Nenzel 71 degrees MUSE SYSTEM Calculated T Nenzel 24 degrees MUSE SYSTEM INTERPRETATION Normal sinus rhythm MUSE SYSTEM Normal ECG When compared with ECG of 04-JUL-2018 22:00, No significant change was found I personally reviewed the tracing and edited the fellows int erpretation Confirmed by fellow MD Dee, Jaylin Oviedo ([id number]) on 08/06/19 20 1:17:24 PM Confirmed by MD Erwin Gregory A. ([id number]) on 08/07/2019 9 :47:34 AM Specimen Anatomical Collection Method Collection Time Receive d Time (Source) Location / / Volume Laterality 08/06/2019 2:05 AM 0 9:47 EDT AM EDT Tiffanie Espino MD ECG ORDERABLES Performing Organization Address City/State/ZIP Code Phon e Number MUSE SYSTEM documented in this encounter Visit Diagnoses Diagnosis ST elevation myocardial infarction (STEM I), unspecified artery History of tobacco use Personal history of tobacco use, present ing hazards to health Gastroesophageal reflux disease without esophagitis Esophageal reflux Type 2 diabetes mellitus without complic ation, without long-term current use of insulin Uncomplicated alcohol dependence Other and unspecified alcohol dependence , unspecified drinking behavior [place] (obstructive sleep apnea) Obstructive sleep apnea (adult) (pediatr ic) ST elevation myocardial infarction (STEM I), unspecified artery documented in this encounter Admitting Diagnoses Diagnosis STEMI (ST elevation myocardial infarctio n) Acute myocardial infarction, unspecified site, episode of care unspecified documented in this encounter Administered Medications Inactive Administered Medications - up to 3 most recent administrations Medication Order MAR Action Action Date Dose Rate Site aspirin EC tablet 81 mg Given 08/07/2019 8:11 AM EDT 81 mg 81 mg, Oral, DAILY, First dose on Mon08/06/19 at 0900, Until Discontinued, Routine Given 08/06/2019 8:29 AM EDT 81 mg atorvastatin (Lipitor) tablet 80 mg Given 08/07/2019 5:14 PM EDT 80 mg 80 mg, Oral, EVERY EVENING, First dose on Mon08/06/19 at 1700, Until Discontinued, Routine Given 08/06/2019 5:54 PM EDT 80 mg clopidogreL (Plavix) tablet 75 mg Given 08/06/2019 8:28 AM EDT 75 mg 75 mg, Oral, ONCE, 1 dose, On Mon08/06/19 at 0800, Routine dextrose 10% infusion 250 mL, at 1,000 mL/hr, Intravenous, ANA RY 30 MIN PRN, Starting on Mon08/06/19 at 0450, Until Mon08/07/19 at 2017, For BG 50-70 mg/dL: Oral treatment preferred:?? If able to drink, give 120 mL Juice or R egular (not diet) soda OR If NPO, give 15 gram glucose 40% oral gel massaged into buccal mucosa OR if unconscious or uncooperative, give 25 gram (250 mL) Dex trose 10% IV over 15 minutes per protocol OR, if no IV access, 1 mg Glucagon IM. * * For BG less than 50 mg/dL: Oral treatment preferred:?? If able to drink, give 240 mL Juice or Regular (not diet) soda OR If NPO, give 30 gram glucose 40% oral gel m assaged in buccal mucosa OR if unconscious or uncooperative, give 25 gram (250 mL) Dextrose 10% I V over 15 minutes per protocol OR, if no IV access, 1 mg Glucagon IM. Rech martha BG in 30 minutes. May repeat juice/soda, gel, dextrose or gluc agon once per episode. For persistent hypoglycemia, consider longer-acting treatment for the duration of the active insulin. EPINEPHrine in D5W New Bag 08/06/2019 2:05 AM EDT 1.5 mcg/min 11.3 mL/hr (ADRENALIN) 2 mg/250 mL (8 mcg/mL) infusion Soln 1 dose, Starting on Mon08/06/19 at 0204, Until Mon08/06/19 at 0205, ELIZABETH RAMÍREZ: cabinet override folic acid (Folvite) tablet 1,000 mcg Given 08/07/2019 11:29 AM EDT 1,000 mcg 1,000 mcg (1 mg), Oral, DAILY, First dose on Mon08/07/19 at 1030, Until Discontinued, Routine furosemide (LASIX) injection 20 mg Given 08/06/2019 10:48 AM EDT 20 mg 20 mg, Intravenous, ONCE, 1 dose, On Mon08/06/19 at 1045 glucagon (human recombinant) injection S olR 1 mg 1 mg, Intramuscular, EVERY 30 MIN PRN, S tarting on Mon08/06/19 at 0450, Until Mon08/07/19 at 2016, Low blood sugar, For BG 50-70 mg/d L: Oral treatment preferred:?? If able to drink, give 120 mL Juice or Regular (not diet) soda OR If NPO, give 15 gram glucose 40% oral gel massaged into b uccal mucosa OR if unconscious or uncooperative, give 25 gr am (250 mL) Dextrose 10% IV over 15 minutes per protocol OR, if no IV access, 1 mg G lucagon IM. For BG less than 50 mg/dL: Oral treatment preferred:?? If able to drink, give 240 mL Juice or Regular (not diet) soda OR If NPO, give 30 gram gluco se 40% oral gel massaged in buccal mucosa OR if unconscious or uncooperative, give 25 gram (250 mL) Dextrose 10% IV over 15 minutes per protocol OR, if no IV access, 1 mg Glucago n IM. Recheck BG in 30 minutes. May repeat juice/soda, gel, dex trose or glucagon once per episode. For persistent hypoglycemia, consider longer -acting treatment for the duration of the active insulin., Routine glucose (GLUTOSE) 40% oral gel 15-30 g, Buccal, EVERY 30 MIN PRN, Starting on 07/12 at 0450, Until Mon08/07/19 at 2017, Low blood sugar, For BG 50-70 mg/d L: Oral treatment preferred:?? If able to drink, give 120 mL Juice or Regular (not diet) soda OR If NPO, give 15 gram glucose 40% oral gel massaged into b uccal mucosa OR if unconscious or uncooperative, give 25 gr am (250 mL) Dextrose 10% IV over 15 minutes per protocol OR, if no IV access, 1 mg G lucagon IM. For BG less than 50 mg/dL: Oral treatment preferred:?? If able to drink, give 240 mL Juice or Regular (not diet) soda OR If NPO, give 30 gram gluco se 40% oral gel massaged in buccal mucosa OR if unconscious or uncooperative, give 25 gram (250 mL) Dextrose 10% IV over 15 minutes per protocol OR, if no IV access, 1 mg Glucago n IM. Recheck BG in 30 minutes. May repeat juice/soda, gel, dex trose or glucagon once per episode. For persistent hypoglycemia, consider longer -acting treatment for the duration of the active insulin. 1 tube contains 15 grams of glucose (n et weight of tube = 37.5 grams., Routine heparin (porcine) 25,000 unit/500 mL New Bag 08/06/2019 2:09 A M EDT 1,000 Units infusion 1 dose, Starting on Mon08/06/19 at 0205, Until Mon08/06/19 at 0209, Brenda Woodall.: cabinet override heparin (Porcine) subcutaneous injection Given 020 3:11 PM EDT 5,000 Units 5,000 Units 5,000 Units, Subcutaneous, EVERY 8 HOURS SCHEDULED, First dose on Mon08/06/19 at 0600, Until Discontinued, Routine Given 08/07/2019 5:07 AM EDT 5,000 Units Given 08/06/2019 9:03 PM EDT 5,000 Units insulin lispro (HumaLOG) VIAL injection 1-4 Given 07/12 5:14 PM EDT 4 Units Units 1-4 Units, Subcutaneous, EVERY 4 HOURS SCHEDULED, First dose on Mon08/06/19 at 0515, Until Discontinued, CORRECTION BOLUS [1-4 Units] Sensitive Sliding Scale: Correction factor 40 (1 unit of insulin is expected to drop the glucose 40 mg/dL) BG 160 - 200 Give 1 unit BG 201 - 240 Give 2 units BG 241 - 280 Give 3 units BG greater than 280, give 4 units and recheck BG in 2 hours. - If recheck BG is LESS than 280, give no insulin and resume schedule - If recheck BG is GREATER than 280, give 4 units and repeat BG in 2 hours (no more than 3 times) & call for new insulin orders. DO NOT hold if NPO, unless specifically told to do so. Per Blood Glucose Monitoring Policy, re-check a BG of > 240 in 2 hours., Routine Given 08/07/2019 12:02 PM EDT 4 Units Given 08/07/2019 8:13 AM EDT 1 Units ipratropium-albuteroL (DUONEB) 0.5 mg-3 mg(2.5 mg base)/3 mL nebulizer solution 3 mL 3 mL, Nebulization, 4 TIMES DAILY PRN, S tarting on Mon08/07/19 at 1351, Until Mon08/07/19 at 2016, Wheezing, Routine LORazepam (ATIVAN) injection 0.5-1.5 mg 0.5-1.5 mg, Intravenous, EVERY 4 HOURS P RN, Starting on Mon08/07/19 at 1139, Until Mon08/07/19 at 2016, alcohol/benzodiazep ine withdrawal- uncomplicated, ATTENTION: THIS IS LOW DOSE LORAZEPAM When given intravenously, t he rate of administration should not exceed 2 mg/minute with [employer] equipment available. Per assessment scale for uncomplicated withdrawal from alcohol. May give IV if unable to take PO. May give IM if no IV access. Medication should be admi nistered at least every 4 hours: For withdrawal score of 5-7, g jeanna 0.5 mg PO or IV or IM: administer every 4 hours. For withdrawal score of 8-10, give 1 mg PO or IV or IM: administer every 4 hours. For withdrawal score o f 11 or greater, give 1.5 mg PO or IV or IM: administer every 4 hours. + If withd anh score remains 11 or greater for two consecutive assessment periods, call provider. + If quincy jauregui has had seizures in previous 8 hours and has gone 4 hours wi thout medications, give 3 mg PO or IV or IM., Routine LORazepam (ATIVAN) injection 0.5-1.5 mg 0.5-1.5 mg, Intramuscular, EVERY 4 HOURS PRN, Starting on Mon08/07/19 at 1139, Until Mon08/07/19 at 2016, alcohol/benzodiazepine with drawal- uncomplicated, ATTENTION: THIS IS LOW DOSE LORAZEPAM Per assessment scale for uncomplicated withdrawal from alcohol. May give IV if unable to take PO. May give IM if no IV access. Medication should be administere d at least every 4 hours: For withdrawal score of 5-7, give 0.5 mg PO or IV or IM: administer e very 4 hours. For withdrawal score of 8-10, give 1 mg PO o r IV or IM: administer every 4 hours. For withdrawal score of 11 or greater, g jeanna 1.5 mg PO or IV or IM: administer every 4 hours. + If withdrawal score remains 1 1 or greater for two consecutive assessment periods, call provider. + If patient has had seizures in previous 8 hours and has gone 4 hours without medications, give 3 mg PO or IV o r IM., Routine LORazepam (ATIVAN) injection 2 mg 2 mg, Intravenous, EVERY 8 HOURS, 6 dose s, First dose on Mon08/07/19 at 1215, Last dose on Mon08/09/19 at 0415, When given intravenously, the rate of administration should not exceed 2mg/minute with emergency equipment available. May give IV if unable to take PO. May give IM if no IV access., Nicole duval LORazepam (ATIVAN) injection 2 mg 2 mg, Intramuscular, EVERY 8 HOURS, 6 doses, First dos e on Mon08/07/19 at 1215, Last dose on Mon08/09/19 at 0415, May gi ve IV if unable to take PO. May give IM if no IV access., Routine LORazepam (Ativan) tablet 0.5-1.5 mg 0.5-1.5 mg, Oral, EVERY 4 HOURS PRN, Starting on Mon at 1139, Until Mon08/07/19 at 2016, alcohol/benzodiazepine withdrawal- un complicated, ATTENTION: THIS IS LOW DOSE LORAZEPAM Per assessmen t scale for uncomplicated withdrawal from alcohol. May give IV if unable to take P O. May give IM if no IV access. Medication should be administered at least every 4 hours: For withdrawal score of 5-7, give 0.5 mg PO or IV or IM: administer every 4 hours. For withdrawal score of 8-10, give 1 mg PO or IV or IM: administer ana ry 4 hours. For withdrawal score of 11 or greater, give 1.5 mg PO or IV or IM: administer every 4 hours. + If withdrawal score remains 11 or greater for two cons ecutive assessment periods, call provider. + If patient has had seizures in previous 8 hours and has gone 4 hours without medications, give 3 mg PO or IV or IM., Routine LORazepam (Ativan) tablet 2 mg 2 mg, Oral, EVERY 8 HOURS, 6 doses, Firs t dose on Mon08/07/19 at 1215, Last dose on Mon08/09/19 at 0415, May give IV if unable to take PO. May give IM if no IV access., Routine magnesium sulfate 2 g in sterile water New Bag 08/06/2019 6:12 PM EDT 2 g 25 mL/hr 50 mL 2 g, Intravenous, ONCE, 1 dose, On Mon08/06/19 at 1800, Administer over 120 Minutes metoprolol tartrate (Lopressor) tablet 12.5 Given 07/12 5:07 AM EDT 12.5 mg mg 12.5 mg, Oral, EVERY 6 HOURS SCHEDULED, First dose on Mon08/06/19 at 1315, Until Discontinued, Hold for SBP < 100 mm Hg or HR < 55 bpm, Routine Given 08/06/2019 11:28 PM EDT 12.5 mg Given 08/06/2019 5:54 PM EDT 12.5 mg metoprolol tartrate (Lopressor) tablet 2 5 mg Given 08/07/2019 5:13 PM EDT 25 mg 25 mg, Oral, EVERY 6 HOURS SCHEDULED, First dose (after last modification) on Mon08/07/19 at 1200, Until Discontinued, Hold for SBP < 100 mm Hg or HR < 55 bpm, Routine Given 08/07/2019 11:28 AM EDT 25 mg nicotine (NICODERM CQ) Patch Applied 08/06/2019 8:27 AM 21 mg 04- Shoulder 21 mg/24 hr patch 21 mg EDT (Right) 21 mg (1 patch), Transdermal, DAILY, First dose on Mon08/06/19 at 0900, Until Discontinued, Routine nicotine (NICODERM CQ) Patch Applied 08/07/2019 8:11 AM 21 mg 03- Shoulder 21 mg/24 hr patch 42 mg EDT (Left) 42 mg (2 patch), Transdermal, DAILY, First dose (after last modification) on Mon08/07/19 at 0900, Until Discontinued, Routine nicotine (NICODERM CQ) patch REMOVAL Transdermal, DAILY, First dose (after la st modification) on Mon08/07/19 at 0530, Until Discontinued, Remove nicotine 21 mg/24 hr patch nicotine polacrilex (COMMIT) lozenge 4 m g 4 mg, Buccal, EVERY 2 HOURS PRN, Startin g on Mon08/06/19 at 1254, Until Mon08/07/19 at 2017, Smoking cessation, Do not chew or swallow. Pl [place] in mouth and allow to slowly dissolve., Routine pantoprazole EC (Protonix) tablet 40 mg Given 08/07/2019 8:11 AM EDT 40 mg 40 mg, Oral, DAILY, First dose on Mon08/06/19 at 0900, Until Discontinued, DO NOT CRUSH OR OPEN, Routine Given 08/06/2019 8:28 AM EDT 40 mg pantoprazole EC (Protonix) tablet 40 mg 40 mg, Oral, 2 TIMES DAILY, First dose ( after last modification) on Mon08/07/19 at 2100, Until Discontinued, DO NOT CRUSH OR OPEN, Ro utine Patch Verification Transdermal, 2 TIMES DAILY, First dose ( after last modification) on Mon08/06/19 at 1730, Until Discontinued, Verify nicotine 21 mg/24 hr patch prasugreL (Effient) tablet 10 mg 10 mg, Oral, DAILY, First dose on Mon at 0900, Until Discontinued, Routine prasugreL (Effient) tablet 60 mg Given 08/07/2019 8:13 AM EDT 60 mg 60 mg, Oral, ONCE, 1 dose, On Mon08/07/19 at 0900, Routine sodium chloride 0.9 % (flush) flush 5 mL Given 08/07/2019 8:13 AM EDT 5 mLs 5 mL, Intravenous, 2 TIMES DAILY, First dose on Mon08/06/19 at 0900, Until Discontinued, Routine Given 08/06/2019 9:00 PM EDT 5 mLs Given 08/06/2019 9:00 AM EDT 5 mLs sodium chloride 0.9% infusion New Bag 08/06/2019 5:21 AM EDT 100 mL/hr 100 mL/hr 100 mL/hr, Intravenous, CONTINUOUS, Starting on Mon08/06/19 at 0515, Until Mon08/06/19 at 0814, Recovery (Recovery-Hospital Unit) sucralfate (Carafate) (100 mg/mL) oral liquid 1 Given 08/07/2019 5:13 PM EDT 1 g g 1 g, Oral, EVERY 6 HOURS SCHEDULED, First dose on Mon08/06/19 at 0600, Until Discontinued, Routine Given 08/07/2019 11:30 AM EDT 1 g Given 08/07/2019 5:07 AM EDT 1 g thiamine (Vitamin B1) tablet 100 mg Given 08/07/2019 11:29 AM EDT 100 mg 100 mg, Oral, DAILY, First dose on Mon08/07/19 at 1030, Until Discontinued, Routine documented in this encounter Active and Recently Administered Medications Times are shown in EDT. Scheduled Medication Order 08/05/2019 08/06/2019 08/07/2019 aspirin EC tablet 81 mg 0829 (Given - Provider: Daniel Sands, GUILLAUME) 0811 (Given - Provider: Maureen Carrillo, GUILLAUME) 81 mg, Oral, DAILY, First dose on Mon at 0900, Until Discontinued, Routine atorvastatin (Lipitor) tablet 80 mg 1754 (Given - Provider: Rama Park RN) 1714 (Given - Provider: Maureen Carrillo, GUILLAUME) 80 mg, Oral, EVERY EVENING, First dose o n Mon08/06/19 at 1700, Until Discontinued, Routine clopidogreL (Plavix) tablet 75 mg (COMPLETED) 827 (Given - Provider: Daniel Sands, GUILLAUME) 75 mg, Oral, ONCE, 1 dose, Mon08/06/19 at 0800, Routine folic acid (Folvite) tablet 1,000 mcg 1129 (Given - Provider: Maureen Carrillo, GUILLAUME) 1,000 mcg (1 mg), Oral, DAILY, First dos e on Mon08/07/19 at 1030, Until Discontinued, Routine furosemide (LASIX) injection 20 mg (COMPLETED) 1048 (Given - Provider: Daniel Sands, GUILLAUME) 20 mg, Intravenous, ONCE, 1 dose, Mon08/06/19 at 1045 heparin (Porcine) subcutaneous injection 5,000 Units 0600 (Not Given - Provider: Natalia Renee RN - Reason: Patient/family refused)1349 (Given - Provider: Daniel Sands RN)2103 (Given - Provider: Natalia Renee RN) 0507 (Given - Provider: Natalia Renee, GUILLAUME)1511 (Given - Provider: Maureen Carrillo, GUILLAUME) 5,000 Units, Subcutaneous, EVERY 8 HOURS SCHEDULED, First dose on Mon08/06/19 at 0600, Until Discontinued, Routine insulin lispro (HumaLOG) VIAL injection 1-4 Units(Linked Adiel up 1) 0536 (Given - Provider: Natalia Renee RN)0828 (Given - Provider: Daniel Sands, GUILLAUME)1200 (Not Given - Provider: Daniel Sands RN - Reason: Order parameters not met) 0400 (Not Given - Provider: Natalia irene RN - Reason: Order parameters not met)0813 (Given - Provider: Maureen Carrillo RN)1202 (Given - Provider: Maureen Carrillo, GUILLAUME)1714 (Given - Provider: Maureen Carrillo, GUILLAUME) 1-4 Units, Subcutaneous, EVERY 4 HOURS S CHEDULED, First dose on Mon08/06/19 at 0515, Until Discontinued, CORRECTION BOLUS [1-4 Units] Sensitive Sliding Scale: Correction factor 40 (1 unit of insulin 1648 (N ot Given - Provider: Rama Park RN - Reason: Order parameters not met)2031 (Given - Provider: Natalia Renee RN)232 (Given - Provider: Natalia Renee RN) is expected to drop the glucose 40 mg/d L) BG 160 - 200 Give 1 unit BG 201 - 240 Give 2 units BG 241 - 280 Give 3 units BG greater than 280, give 4 units and recheck BG in 2 hours. - If recheck BG is LE SS than 280, give no insulin and resume schedule - If recheck BG is GREATER than 280, give 4 units and repeat BG in 2 hours (no more than 3 times) & call for new insulin orders. DO NOT hold if NPO, unless specifically told to do so. Per B lood Glucose Monitoring Policy, re-check a BG of > 240 in 2 hours., Routine LORazepam (ATIVAN) injection 2 mg(Linked Group 2) 1214 (See Alternative - Provider: Maureen Carrillo, GUILLAUME) 2 mg, Intravenous, EVERY 8 HOURS, 6 dose s, First dose on Mon08/07/19 at 1215, Last dose on Mon08/09/19 at 0415, When given intravenously, the rate of administration should not exceed 2mg/minute with winnie rgency equipment available. May give IV if unable to take PO. May give IM if no IV access., Routine LORazepam (ATIVAN) injection 2 mg(Linked Group 2) 1214 (See Alternative - Provider: Maureen Carrillo, GUILLAUME) 2 mg, Intramuscular, EVERY 8 HOURS, 6 do ses, First dose on Mon08/07/19 at 1215, Last dose on Mon08/09/19 at 0415, May give IV if unable to take PO. May give IM if no IV access., Routine LORazepam (Ativan) tablet 2 mg(Linked Group 2) 1214 (Not Given - Provider: Maureen Carrillo, GUILLAUME - Reason: Contraindicated) 2 mg, Oral, EVERY 8 HOURS, 6 doses, Firs t dose on Mon08/07/19 at 1215, Last dose on Mon08/09/19 at 0415, May give IV if unable to take PO. May give IM if no IV access., Routine magnesium sulfate 2 g in sterile water 50 mL (COMPLETED) 1811 (New Bag - Provider: Rama aPrk, GUILLAUME)2011 (Stopped - Provider: Natalia Renee, GUILLAUME) 2 g, Intravenous, ONCE, 1 dose, 08/05 at 1800, Administer over 120 Minutes metoprolol tartrate (Lopressor) tablet 12.5 mg (CANCELED) 1348 (Given - Provider: Daniel Sands RN)1754 (Given - Provider: Rama Park, GUILLAUME)2328 (Given - Provider: Natalia Renee, GUILLAUME) 0507 (Given - Provider: Natalia Renee, GUILLAUME) 12.5 mg, Oral, EVERY 6 HOURS SCHEDULED, First dose on Mon08/06/19 at 1315, Until Discontinued, Hold for SBP < 100 mm Hg or HR < 55 bpm, Routine metoprolol tartrate (Lopressor) tablet 25 mg 1128 (Given - Provider: Maureen Carrillo RN)1713 (Given - Provider: Maureen Carrillo RN) 25 mg, Oral, EVERY 6 HOURS SCHEDULED, Fi rst dose (after last modification) on Mon08/07/19 at 1200, Until Discontinued, Hold for SBP < 100 mm Hg or HR < 55 bpm, Routine nicotine (NICODERM CQ) 21 mg/24 hr patch 21 mg (CANCELED) 826 (Patch Applied - Provider: Daniel Sands RN) 21 mg (1 patch), Transdermal, DAILY, Fir st dose on Mon08/06/19 at 0900, Until Discontinued, Routine nicotine (NICODERM CQ) 21 mg/24 hr patch 42 mg(Linked Group 3) 08 (Patch Applied - Provider: Maureen Carrillo RN - Comment: only one patch per pt request) 42 mg (2 patch), Transdermal, DAILY, Fir st dose (after last modification) on Mon08/07/19 at 0900, Until Discontinued, Routine nicotine (NICODERM CQ) patch REMOVAL(Linked Group 3) 899 (Patch Removed - Provider: Maureen Carrillo RN) Transdermal, DAILY, First dose (after la st modification) on Mon08/07/19 at 0530, Until Discontinued, Remove nicotine 21 mg/24 hr patch pantoprazole EC (Protonix) tablet 40 mg (CANCELED) 827 (Given - Provider: Daniel Sands RN) 0811 (Given - Provider: Maureen Carrillo RN) 40 mg, Oral, DAILY, First dose on Mon at 0900, Until Discontinued, DO NOT CRUSH OR OPEN, Routine pantoprazole EC (Protonix) tablet 40 mg 40 mg, Oral, 2 TIMES DAILY, First dose ( after last modification) on Mon08/07/19 at 2100, Until Discontinued, DO NOT CRUSH OR OPEN, Routine Patch Verification(Linked Group 3) 1648 (Patch (dose and location) verified - Provider: Rama Park RN) 0900 (Patch (dose and location) verified - Provider: Maureen Carrillo RN) Transdermal, 2 TIMES DAILY, First dose ( after last modification) on Mon08/06/19 at 1730, Until Discontinued, Verify nicotine 21 mg/24 hr patch prasugreL (Effient) tablet 10 mg 10 mg, Oral, DAILY, First dose on Mon at 0900, Until Discontinued, Routine prasugreL (Effient) tablet 60 mg (COMPLETED) 812 (Given - Provider: Maureen Carrillo, GUILLAUME) 60 mg, Oral, ONCE, 1 dose, Mon08/07/19 at 0900, Routine sodium chloride 0.9 % (flush) flush 5 mL 0900 (Given - Provider: Daniel Sands RN)2100 (Given - Provider: Natalia Renee, GUILLAUME) 0813 (Given - Provider: Maureen Carrillo, GUILLAUME) 5 mL, Intravenous, 2 TIMES DAILY, First dose on Mon08/06/19 at 0900, Until Discontinued, Routine sucralfate (Carafate) (100 mg/mL) oral liquid 1 g 0600 (Given - Provider: Daniel Sands RN)1236 (Given - Provider: Daniel Sands RN)1753 (Given - Provider: Rama Park RN)2328 (Given - Provider: Natalia Renee, GUILLAUME) 0507 (Given - Provider: Natalia ramos RN)1130 (Given - Provider: Maureen Carrillo, GUILLAUME)1713 (Given - Provider: Maureen Carrillo, GUILLAUME) 1 g, Oral, EVERY 6 HOURS SCHEDULED, Firs t dose on Mon08/06/19 at 0600, Until Discontinued, Routine thiamine (Vitamin B1) tablet 100 mg 1129 (Given - Provider: Maureen Carrillo, GUILLAUME) 100 mg, Oral, DAILY, First dose on Mon at 1030, Until Discontinued, Routine Continuous Medication Order 08/05/2019 08/06/2019 08/07/2019 sodium chloride 0.9% infusion () 0521 (New Bag - Provider: Natalia Renee, GUILLAUME) 100 mL/hr, at 100 mL/hr, Intravenous, CO NTINUOUS, Starting Mon08/06/19 at 0515, Until Mon08/06/19 at 0814, Recovery (Recovery-Hospital Unit) PRN Medication Order 08/05/2019 08/06/2019 08/07/2019 alum-mag hydroxide-simeth (Maalox) (40 mg-40 mg-4 mg/m L) oral liquid (CANCELED) 0409 (Given - Provider: Amita Pizarro) ONCE PRN, Starting Mon08/06/19 at 0409, Until Mon08/06/19 at 0414, Cath (Intra- Procedure), Routine clopidogreL (Plavix) tablet (CANCELED) 0 222 (Given - Provider: Mckenzie Parks, GUILLAUME) ONCE PRN, Starting Mon08/06/19 at 0222, Until Mon08/06/19 at 0403, Cath (Intra- Procedure), Routine dextrose 10% infusion(Linked Group 4) 250 mL, at 1,000 mL/hr, Intravenous, ANA RY 30 MIN PRN, Starting Mon08/06/19 at 0450, Until Mon08/07/19 at 2017, For BG 50-70 mg/dL: Oral treatment preferred:?? If able to drink, give 120 mL Juice or Regular (not diet) soda OR If NPO, give 15 gram glucose 40% oral gel massaged into buccal mucosa OR if unconscious or uncooperative, give 25 gram (250 mL) Dextrose 10% IV over 15 minutes per protocol OR , if no IV access, 1 mg Glucagon IM. For BG less than 50 mg/dL: Oral treatment preferred:?? If able to drink, give 240 mL Juice or Regular (not diet) soda OR If NPO, give 30 gram glucose 40% oral gel massaged in buccal mucosa OR if unconsc ious or uncooperative, give 25 gram (250 mL) Dextrose 10% IV over 15 minutes per protocol OR, if no IV access, 1 mg Glucagon IM. Recheck BG in 30 minutes. May r epeat juice/soda, gel, dextrose or gluca radha once per episode. For persistent hypoglycemia, consider longer-acting treatment for the duration of the active insulin. fentaNYL 50 mcg/mL multi-dose injection (CANCELED) 0234 (Given - Provider: Mckenzie Parks, GUILLAUME)0237 (Given - Provider: Mckenzie Parks, GUILLAUME)033 (Given - Provider: Mckenzie Parks, RN) ONCE PRN, Starting Mon08/06/19 at 0234, Until Mon08/06/19 at 0403, Intra- Operative (Intra-Procedure), Routine glucagon (human recombinant) injection SolR 1 mg(Linked Group 4) 1 mg, Intramuscular, EVERY 30 MIN PRN, S tarting Mon08/06/19 at 0450, Until Mon08/07/19 at 2016, Low blood sugar, For BG 50-70 mg/dL: Oral treatment preferred:?? If able to drink, give 120 mL Juice or Regular (not diet) soda OR If NPO, give 15 gram glucose 40% oral gel massaged into buccal mucosa OR if unconscious or uncooperative, give 25 gram (250 mL) Dextrose 10% IV over 15 minutes per protocol O R, if no IV access, 1 mg Glucagon IM. For BG less than 50 mg/dL: Oral treatment preferred:?? If able to drink, give 240 mL Juice or Regular (not diet) soda OR If NPO, give 30 gram glucose 40% oral ge l massaged in buccal mucosa OR if uncons cious or uncooperative, give 25 gram (250 mL) Dextrose 10% IV over 15 minutes per protocol OR, if no IV access, 1 mg Glucagon IM. Recheck BG in 30 minutes. May repeat juice/soda, gel, dextrose or gluc agon once per episode. For persistent hypoglycemia, consider longer-acting treatment for the duration of the active insulin., Routine glucose (GLUTOSE) 40% oral gel(Linked Group 4) 15-30 g, Buccal, EVERY 30 MIN PRN, Start ing Mon08/06/19 at 0450, Until Mon08/07/19 at 2016, Low blood sugar, For BG 50-70 mg/dL: Oral treatment preferred:?? If able to drink, give 120 mL Juice or Reg ular (not diet) soda OR If NPO, give 15 gram glucose 40% oral gel massaged into buccal mucosa OR if unconscious or uncooperative, give 25 gram (250 mL) Dextrose 10% IV over 15 minutes per protocol OR, i f no IV access, 1 mg Glucagon IM. For BG less than 50 mg/dL: Oral treatment preferred:?? If able to drink, give 240 mL Juice or Regular (not diet) soda OR If NPO, give 30 gram glucose 40% oral gel ma ssaged in buccal mucosa OR if unconsciou s or uncooperative, give 25 gram (250 mL) Dextrose 10% IV over 15 minutes per protocol OR, if no IV access, 1 mg Glucagon IM. Recheck BG in 30 minutes. May repe at juice/soda, gel, dextrose or glucagon once per episode. For persistent hypoglycemia, consider longer-acting treatment for the duration of the active insulin. 1 tube contains 15 grams of glucose (net weight of tube = 37.5 grams., Routine heparin (porcine) 1,000 unit/mL injection (CANCELED) 0250 (Given - Provider: Mckenzie Parks, GUILLAUME)0303 (Given - Provider: Mckenzie Parks RN) ONCE PRN, Starting Mon08/06/19 at 0250, Until Mon08/06/19 at 040, Cath (Intra- Procedure), Routine iohexoL (OMNIPAQUE) 350 mg/mL solution (CANCELED) 0348 (Given - Provider: Jung Merino MD) ONCE PRN, Starting Mon08/06/19 at 0348, Until Mon08/06/19 at 040, Cath (Intra- Procedure), Routine ipratropium-albuteroL (DUONEB) 0.5 mg-3 mg(2.5 mg base)/3 mL nebulizer solution 3 mL 3 mL, Nebulization, 4 TIMES DAILY PRN, S tarting Mon08/07/19 at 1351, Until Mon08/07/19 at 2016, Wheezing, Routine lidocaine (XYLOCAINE) 10 mg/mL (1 %) injection 3 mg 3 mg (0.3 mL), Subcutaneous, ONCE PRN, 1 dose, Starting Mon08/06/19 at 0450, Until Mon08/07/19 at 2016, for discomfort with PIV insertion, Routine lidocaine (XYLOCAINE) 10 mg/mL (1 %) injection (CANCELED) 0236 (Given - Provider: Jose Ellison MD) ONCE PRN, Starting Mon08/06/19 at 0236, Until Mon08/06/19 at 040, Cath (Intra- Procedure), Routine LORazepam (ATIVAN) injection 0.5-1.5 mg(Linked Group 5) 0.5-1.5 mg, Intravenous, EVERY 4 HOURS P RN, Starting Mon08/07/19 at 1139, Until Mon08/07/19 at 2016, alcohol/benzodiazepine withdrawal- uncomplicated, ATTENTION: THIS IS LOW DOSE LORAZEPAM When given intravenously, the rate of administratio n should not exceed 2 mg/minute with ermergency equipment available. Per assessment scale for uncomplicated withdrawal from alcohol. May give IV if unable to take PO. May give IM if no IV access. Medica tion should be administered at least every 4 hours: For withdrawal score of 5-7, give 0.5 mg PO or IV or IM: administer every 4 hours. For withdrawal score of 8-10, give 1 mg PO or IV or IM: admin ister every 4 hours. For withdrawal score of 11 or greater, give 1.5 mg PO or IV or IM: administer every 4 hours. + If withdrawal score remains 11 or greater f or two consecutive assessment periods, c all provider. + If patient has had seizures in previous 8 hours and has gone 4 hours without medications, give 3 mg PO or IV or IM., Routine LORazepam (ATIVAN) injection 0.5-1.5 mg(Linked Group 5) 0.5-1.5 mg, Intramuscular, EVERY 4 HOURS PRN, Starting Mon08/07/19 at 1139, Until Mon08/07/19 at 2016, alcohol/benzodiazepine withdrawal- uncomplicated, ATTENTION: THIS IS LOW DOSE LORAZEPAM Per asses sment scale for uncomplicated withdrawal from alcohol. May give IV if unable to take PO. May give IM if no IV access. Medication should be administered at least every 4 hours: For withdrawal score of 5-7, give 0.5 mg PO or IV or IM: admini ster every 4 hours. For withdrawal score of 8-10, give 1 mg PO or IV or IM: administer every 4 hours. For withdrawal score of 11 or greater, give 1.5 mg PO or IV or IM: administer every 4 hours. + If withdrawal score remains 11 or greater for two consecutive assessment periods, call provider. + If patient has had seizures in previous 8 hours and has gone 4 hours without medications, give 3 mg PO or IV or IM., Routine LORazepam (Ativan) tablet 0.5-1.5 mg(Linked Group 5) 0.5-1.5 mg, Oral, EVERY 4 HOURS PRN, Sta rting Mon08/07/19 at 1139, Until Mon08/07/19 at 2016, alcohol/benzodiazepine withdrawal- uncomplicated, ATTENTION: THIS IS LOW DOSE LORAZEPAM Per assessment sca le for uncomplicated withdrawal from alc ohol. May give IV if unable to take PO. May give IM if no IV access. Medication should be administered at least every 4 hours: For withdrawal score of 5-7, giv e 0.5 mg PO or IV or IM: administer ever y 4 hours. For withdrawal score of 8- 10, give 1 mg PO or IV or IM: administer every 4 hours. For withdrawal score of 11 or greater, give 1.5 mg PO or IV or IM: administer every 4 hours. + If withd anh score remains 11 or greater for two consecutive assessment periods, call provider. + If patient has had seizures in previous 8 hours and has gone 4 hours wi thout medications, give 3 mg PO or IV or IM., Routine midazolam (PF) (VERSED) multi-dose injection (CANCELED) 0234 (Given - Provider: Mckenzie Parks, GUILLAUME)0237 (Given - Provider: Mckenzie Parks, GUILLAUME)0247 (Given - Provider: Mckenzie Parks, GUILLAUME) ONCE PRN, Starting Mon08/06/19 at 0234, Until Mon08/06/19 at 0403, Cath (Intra- Procedure), Routine nicotine polacrilex (COMMIT) lozenge 4 mg 4 mg, Buccal, EVERY 2 HOURS PRN, Startin g Mon08/06/19 at 1254, Until Mon08/07/19 at 2016, Smoking cessation, Do not chew or swallow. Place in mouth and allow to slowly dissolve., Routine nitroGLYcerin (Nitrostat) disintegrating tablet 0.4 mg 0.4 mg, Sublingual, EVERY 5 MIN PRN, Sta rting Mon08/06/19 at 0450, Until Mon08/07/19 at 2016, Chest pain, May repeat every 5 minutes for a total of three doses. Notify provider if chest pain not relieve d with nitroglycerin. Do not administer nitroglycerin if the patient has received or taken phosphodiesterase (PDE-5) inhibitors such as sildenafil, tadalafil or vardenafil within the last 24 to 72 hours., Routine nitroGLYcerin 100 mcg/mL intracoronary dilution (CANCELED) 0245 (Given - Provider: Jose Ellison MD) ONCE PRN, Starting Mon08/06/19 at 0245, Until Mon08/06/19 at 0403, Cath (Intra- Procedure), Routine sodium chloride 0.9 % (flush) flush 5-20 mL 5-20 mL, Intravenous, EVERY 1 MIN PRN, S tarting Mon08/06/19 at 0450, Until Mon08/07/19 at 2017, flush, Flush pertains to all indwelling lines. Flush per protocol found in the job aid using the link provided on this medication record., Routine No Frequency Medication Order 08/05/2019 08/06/2019 08/07/2019 EPINEPHrine in D5W (ADRENALIN) 2 mg/250 mL (8 mcg/mL) infusion Soln (COMPLETED) 0205 (New Bag - Provider: Elizabeth Ramírez, RN) 1 dose, Starting Mon08/06/19 at 0204, Un til Mon08/06/19 at 0205, ELIZABETH RAMÍREZ: cabinet override heparin (porcine) 25,000 unit/500 mL infusion (COMPLETED) 020 (New Bag - Provider: Elizabeth Ramírez, RN) 1 dose, Starting Mon08/06/19 at 0205, Un til Mon08/06/19 at 0209, Brenda Woodall: cabinet override Linked Groups Order Group 1: POCT Fingerstick Glucose (CANCELED) Routine, EVERY 4 HOURS, First occurrence on Mon08/06/19 at 0455, Until Specified
Consider choosing EVERY 4 HOURS as frequency for: - Type 1 Diabetes - At least 24 hours after coming off an insu reg drip - At least 24 hours after admis aixa for DKA - Hypoglycemia unawareness - Patients who are otherwise unstable Select the same frequency for the correction bolus insulin order And insulin lispro (HumaLOG) VIAL injection 1-4 UnitsJump to med 1-4 Units, Subcutaneous, EVERY 4 HOURS S CHEDULED, First dose on Mon08/06/19 at 0515, Until Discontinued
CORRECTION BOLUS [1-4 Units] Sensitive Sliding Scale: Correction factor 40 ( 1 unit of insulin is expected to drop th e glucose 40 mg/dL) BG 160 - 200 Give 1 unit BG 201 - 240 Give 2 units BG 241 - 280 Give 3 units BG greater jo n 280, give 4 units and recheck BG in 2 hours. - If recheck BG is LESS than 280, give no insulin and resume schedule - If recheck BG is GREATER than 280, give 4 units and repeat BG in 2 hours (no more than 3 times) &nb sp;& call for new insulin orders. DO NOT hold if NPO, unless specifically told to do so. Per Blood Glucose Monitoring Policy, re-check a BG of > 240 in 2 hours.
Routine Group 2: LORazepam (Ativan) tablet 2 mgJump to med 2 mg, Oral, EVERY 8 HOURS, 6 doses, Firs t dose on Mon08/07/19 at 1215, Last dose on Mon08/09/19 at 0415
May give IV if unable to take PO. May give IM if no IV access.
Routine Or LORazepam (ATIVAN) injection 2 mgJump to med 2 mg, Intravenous, EVERY 8 HOURS, 6 dose s, First dose on Mon08/07/19 at 1215, Last dose on Mon08/09/19 at 0415
When given intravenously, the rate of administration should not exceed 2mg/minute with emergency equipment available.&nbsp ;May give IV if unable to take PO. May give IM if no IV access.
Routine Or LORazepam (ATIVAN) injection 2 mgJump to med 2 mg, Intramuscular, EVERY 8 HOURS, 6 do ses, First dose on Mon08/07/19 at 1215, Last dose on Mon08/09/19 at 0415
May give IV if unable to take PO. May give IM if no IV access.
Routine Group 3: nicotine (NICODERM CQ) 21 mg/24 hr patch 42 mgJump to med 42 mg (2 patch), Transdermal, DAILY, Fir st dose (after last modification) on Mon08/07/19 at 0900, Until Discontinued, Routine And Patch VerificationJump to med Transdermal, 2 TIMES DAILY, First dose ( after last modification) on Mon08/06/19 at 1730, Until Discontinued
Verify nicotine 21 mg/24 hr patch
And nicotine (NICODERM CQ) patch REMOVALJump to med Transdermal, DAILY, First dose (after la st modification) on Mon08/07/19 at 0530, Until Discontinued
Remove nicotine 21 mg/24 hr patch
Group 4: glucose (GLUTOSE) 40% oral gelJump to med 15-30 g, Buccal, EVERY 30 MIN PRN, Start ing Mon08/06/19 at 0450, Until Mon08/07/19 at 2017, Low blood sugar
For BG 50-70 mg/dL: Oral treatment preferred:?? If able to drink, give 120 mL Juic e or Regular (not diet) soda OR If NPO, give 15 gram glucose 40% oral gel massaged into buccal mucosa OR if unconscious or uncooperative, give 25 gram (250 mL) Dextrose 10% IV over 15 minutes per protoc ol OR, if no IV access, 1 mg Glucagon IM . For BG less than 50 mg/dL: Oral treatment preferred:?? If able to drink, give 240 mL Juice or Regular (not diet) soda OR If NPO, give 30 gram gluco se 40% oral gel massaged in buccal mucos a OR if unconscious or uncooperative, give 25 gram (250 mL) Dextrose 10% IV over 15 minutes per protocol OR, if no IV access, 1 mg Glucagon IM. Recheck BG in 30 minutes. May repeat juice/soda , gel, dextrose or glucagon once per episode. For persistent hypoglycemia, consider longer-acting treatment for the duration of the active insulin. 1 tube contains 15 grams o f glucose (net weight of tube = 37.5 grams.
Routine Or dextrose 10% infusionJump to med 250 mL, at 1,000 mL/hr, Intravenous, ANA RY 30 MIN PRN, Starting Mon08/06/19 at 0450, Until Mon08/07/19 at 2016
For BG 50-70 mg/dL: Oral treatment preferred:?? If able to drink, give 120 mL J uice or Regular (not diet) soda OR If SAMPLE WEAVER O, give 15 gram glucose 40% oral gel massaged into buccal mucosa OR if unconscious or uncooperative, give 25 gram (250 mL) Dextrose 10% IV over 15 minutes per pro tocol OR, if no IV access, 1 mg Glucagon IM. For BG less than 50 mg/dL: Oral treatment preferred:?? If able to drink, give 240 mL Juice or Regular (not diet) soda OR If NPO, give 30 gram gl ucose 40% oral gel massaged in buccal mu cosa OR if unconscious or uncooperative, give 25 gram (250 mL) Dextrose 10% IV over 15 minutes per protocol OR, if no IV access, 1 mg Glucagon IM. Rech martha BG in 30 minutes. May repeat juice/s mynor, gel, dextrose or glucagon once per episode. For persistent hypoglycemia, consider longer-acting treatment for the duration of the active insulin.
Or glucagon (human recombinant) injection SolR 1 mgJump to med 1 mg, Intramuscular, EVERY 30 MIN PRN, S tarting Mon08/06/19 at 0450, Until Mon08/07/19 at 2016, Low blood sugar
For BG 50-70 mg/dL: Oral treatment preferred:?? If able to drink, give 120 mL Juice or Regular (not diet) soda OR If N PO, give 15 gram glucose 40% oral gel massaged into buccal mucosa OR if unconscious or uncooperative, give 25 gram (250 mL) Dextrose 10% IV over 15 minutes per pr otocol OR, if no IV access, 1 mg Glucago n IM. For BG less than 50 mg/dL: Oral treatment preferred:?? If able to drink, give 240 mL Juice or Regular (not diet) soda OR If NPO, give 30 gram g lucose 40% oral gel massaged in buccal m ucosa OR if unconscious or uncooperative, give 25 gram (250 mL) Dextrose 10% IV over 15 minutes per protocol OR, if no IV access, 1 mg Glucagon IM. Rec heck BG in 30 minutes. May repeat juice/ soda, gel, dextrose or glucagon once per episode. For persistent hypoglycemia, consider longer-acting treatment for the duration of the active insulin.
Routine Group 5: LORazepam (Ativan) tablet 0.5-1.5 mgJump to med 0.5-1.5 mg, Oral, EVERY 4 HOURS PRN, Sta rting Mon08/07/19 at 1139, Until Mon08/07/19 at 2016, alcohol/benzodiazepine withdrawal- uncomplicated
ATTENTION: THIS IS LOW DOSE LORAZEPAM & amp;nbsp;Per assessment scale for uncomp licated withdrawal from alcohol. May give IV if unable to take PO. May give IM if no IV access. &nbsp ;Medication should be administered at le ast every 4 hours: For withdrawal score of 5-7, give 0.5 mg PO or IV or IM: administer every 4 hours. &nbsp ; For withdrawal score of 8-10, give 1 mg PO or IV or IM: administer every 4 hours. For withdrawal score of 11 or greater, give 1.5 mg PO or IV or IM: administer every 4 hours. + If withdrawa l score remains 11 or greater for two consecutive assessment periods, call provider. + If patient has had seizures in pre vious 8 hours and has gone 4 hours witho ut medications, give 3 mg PO or IV or IM.
Routine Or LORazepam (ATIVAN) injection 0.5-1.5 mgJump to med 0.5-1.5 mg, Intravenous, EVERY 4 HOURS P RN, Starting Mon08/07/19 at 1139, Until Mon08/07/19 at 2016, alcohol/benzodiazepine withdrawal- uncomplicated
ATTENTION: THIS IS LOW DOSE LORAZEPAM&amp ;nbsp; When given intravenously, th e rate of administration should not exceed 2 mg/minute with ermergency equipment available. Per assessment scale for uncomplicated withdrawal from al cohol. May give IV if unable to take PO. May give IM if no IV access. Medication should be administered at least every 4 hours:&nbs p; For withdrawal score of 5-7, give 0.5 mg PO or IV or IM: administer every 4 hours. For withdrawal score of 8-10, give 1 mg PO or IV or IM: admini ster every 4 hours. For withdrawal score of 11 or greater, give 1.5 mg PO or IV or IM: administer every 4 hours. + If withdrawal score remain s 11 or greater for two consecutive asse ssment periods, call provider. + If patient has had seizures in previous 8 hours and has gone 4 hours without medications, give 3 mg PO or IV or IM.
Routine Or LORazepam (ATIVAN) injection 0.5-1.5 mgJump to med 0.5-1.5 mg, Intramuscular, EVERY 4 HOURS PRN, Starting Mon08/07/19 at 1139, Until Mon08/07/19 at 2017, alcohol/benzodiazepine withdrawal- uncomplicated
ATTENTION: THIS IS LOW DOSE LORAZEPAM&a mp;nbsp; Per assessment scale for u ncomplicated withdrawal from alcohol. May give IV if unable to take PO. May give IM if no IV access. Medication should be administered at least every 4 hours: For withdrawal score of 5-7, give 0.5 mg PO or IV or IM: administer every 4 hours. For withdrawal score of 8-10, g jeanna 1 mg PO or IV or IM: administer every 4 hours. For withdrawal score of 11 or greater, give 1.5 mg PO or IV or IM: administ er every 4 hours. + If withdrawal score remains 11 or greater for two consecutive assessment periods, call provider. + If patient has had seizur es in previous 8 hours and has gone 4 ho urs without medications, give 3 mg PO or IV or IM.
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
--- OUTSIDE RECORDS SUMMARY | 2021-12-17 01:01 | XMS_ITS | Encounter Summary ---
:1965 Author Organization [facility] [place] [address] Care Team Providers Name Role Phone Sae Marr MD Primary Care Provider Reason for Visit Reason Onset Date Comments Bumped Appointment 01/29/2020 Encounter Details Date Type Department Care Team Description 01/29/2020 Telephone Ophthalmology [facility] Tania Gates, Giovanny Appointment [facility] [place] [address] [facility] [phone] DR OPHTHALMOLOGY [place], [place] [address] (Wo rk) Social History Tobacco Use Types Packs/Day Years Used Date Current Every Day Smoker Cigarettes 2 Smokeless Tobacco: Never Used Alcohol Use Standard Drinks/Week Comments Yes 7 (1 standard drink = 0.6 oz pure alcoho l) Alcohol Habits Answer Date Recorded How often do you have a drink containing 4 or more times a w [place] 07/05/2018 alcohol? How many drinks containing alcohol do you have 10 or more 07/05/2018 on a typical day when you are drinking? How often do you have six or more drinks on one Daily or alfredito ost daily 07/05/2018 occasion? Comment: Not asked Sex Assigned at Date Recorded Not on file documented as of this encounter Miscellaneous Notes Telephone Encounter - Rhoda Hassan - 01/29/2020 4:46 PM ESTSummary: Kody RSC to 12/02/20. Spoke w pt to [facility] 02/11/20 PETER Gates FUV for: 1 year for CEE. Reviewed updated Visitors Policy w pt, he will plan accordingly. PETER 1x, -Last Seen 02/08/19. RSC to 02/12/20. documented in this encounter Plan of Treatment Upcoming Encounters Date Type Specialty Care Team Description 01/26/2022 Office Visit Ophthalmology Tania Gates , OD [facility] OPHTHALMOLOGY [place], [place] [address] (Wo rk) Scheduled Procedures Name [...] & MYELOPATHY MORSELIZED (WRVU *) MODIFIER K2 [facility] STENOSIS & HNP & MYELOPATHY documented as of this encounter Visit Diagnoses Not on filedocumented in this encounter Care Teams Discovery Guide Relationship Specialty Start Date End Date Sae Marr MD PCP - General General Internal Medicine 08/06/19 [address] [place] [address] documented as of this encounter
--- OUTSIDE RECORDS SUMMARY | 2021-12-17 01:01 | XMS_ITS | Encounter Summary ---
:1965 Author Organization [facility] [place] [address] Care Team Providers Name Role Phone Taylor Robinsonuriel Laurent APRN Primary Care Provider Encounter Details Date Type Department Care Team Description 12/28/2020 TH Visit Gastroenterology at [facility] [place] Janki Jean Watery diarrhea; (TeleHealth) [facility] Danika Nelson MD Abdominal bloating; [place] [address] [facility] Dyspepsia [phone] Center [place] [address] Social History Tobacco Use Types Packs/Day Years Used Date Current Every Day Smoker Cigarettes 2 Smokeless Tobacco: Never Used Alcohol Use Standard Drinks/Week Comments Yes 7 (1 standard drink = 0.6 oz pure alcoho l) Alcohol Habits Answer Date Recorded How often do you have a drink containing 4 or more times a w [place] 07/05/2018 alcohol? How many drinks containing alcohol do you have 10 or more 07/05/2018 on a typical day when you are drinking? How often do you have six or more drinks on one Daily or alfredito ost daily 07/05/2018 occasion? Comment: Not asked Sex Assigned at Date Recorded Not on file documented as of this encounter Patient Instructions Patient InstructionsJanki Jean MD - 12/28/2020 8:00 AM EDT Plan: ?? Eat small meals, 5-6 times/day ?? Try Beano with each meal ?? Try to switch to bottled water ?? Stool testing with fecal elastase, giardia, fecal fat and calprotectin ?? X ray to evaluate stool burden ?? Repeat upper endoscopy with H pylori biopsies ?? Hydrogen breath test for small intestine bacterial overgrowth Follow-up: Telehealth in 3 months documented in this encounter Progress Notes Janki Jean MD - 12/28/2020 8:00 AM EDT [facility] Section of Gastroenterology and Hepatology Follow-up Telemedicine Visit PCP: Sae Marr MD Referring provider: Gale Calderon MD HPI: This is a 55 y.o. male following up for evaluation of dyspepsia, belching, gas/bloating and watery diarrhea. Interval follow-up The same Still with sulfer burps, bloating and belching & diarrhea all go together - baking soda helps with this Stuck to chicken and very well cooked veggies (spinach, green beans, summer squash, broccoli) for a couple of months Bread is one of his worst enemies - a lot of bloating and distention within an hour, but can tolerate the flat pizza crust Can't tolerate bread Milk doesn't agree - almond milk is pretty good Cheated last night with grinders with onions and had a lot of sx 2-3 BMs/day, stools still loose Has hard water, 180 foot well Pain related to bloating and distention feeling - when not bloated he feels okay Going back for a cath because getting chest pains Review of Systems The remainder of 10 point ROS are negative except as above. GI PROBLEM LIST (with relevant hx & testing) 1. Abdominal pain (generalized) and bloating ?? Post-prandial pain, sulfer burps when eating meat, better with soft foods, intermittent constipation, reduced PO intake with wt loss ?? Note history of poorly controlled diabetes with an A1c up to 13 now 8.9 and CV disease with cardiac stents, on metformin (1000mg twice day), glipizide (1) & insulin (new); was on trulicity whichmade his GI sx worse ?? Note hx of ETOH & tobacco ?? CT scan July 2019 with small HH, normal appearing GB, normal vessels and normal liver ?? Colonoscopy 2013 TA ?? See below for EGD 2020 no cause for abd pain ?? Colonoscopy 2020 with polyps (cecum x 1 - TA, AC x 2 -TAs, TC x 4 - TAs and SSPs, DC x 1 - HPs, SC x 6 - all HPs, rectum x 11 - all HPs); note large polyp removed with cautery in descending colon with ? Area of inflammation next to it that was tattooed ?? GES 2020: 72% at 2 hours (delayed, normal < 60%), normal at 4 hours (1%) ?? HIDA scan, CCK 05/2020: Normal, EF 71% ?? TTG IgA < 1.2, IGa 214 (2020) 2. GERD with non-dysplastic short segment Diaz's esophagus (irregular Z, tongues) ?? On pantoprazole 40mg BID, some regurgitation ?? S/p JULIANE fundoplication > 20 years ago that was successful with no symptoms for decades - note see CIS also had dense adhesions to spleen perhaps perforated peptic ulcers ?? EGDs in our system [id number] (multiple) - all with the appearance of short segment Diaz's, seeCIS for path - also documented antral gastritis ?? EGD 2011 - normal esophagus, antral and duodenal erosions (post-bulbar) - H pylori inactive chronic gastritis and peptic duodenitis ?? EGD 2013, 2016 - one with Diaz's per report ?? EGD 2019 for Diaz's and bloating: Normal except irregular Z at 40cm, path c/w Diaz's non-dysplastic, duodenal bx neg ?? EGD 2020: Mild inflammation in distal esophagus (path = inflammation, mild chronic; no IM, note parietal cell hyperplasia) but reportedly regular Z-line at 40 cm, small HH; normal duodenum & stomach 3. Antral gastritis with H pylori (? Gastric ulcers) ?? H pylori noted 04/2011 ?? Reports ulcers when he was younger - abdominal pain - told it was all in his head 4. Incisional hernia s/p repair (mesh) 5. 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 Had a week of extreme pain. Chronic intermittent LUQ pain, occurs after eating. Similar to what he had years ago prior to his JULIANE. Ongoing for at least 4-5 years. Just about every time he eats. Comes on within about 30 min of eating. Lasts 45 min to 1 hour. Feels like someone is inside his stomach beating it up. No alleviating factors. No associated BM. Tried carafate without a change Better if he eats a small meal - like hot dog for lunch he does okay. Sometimes feels full quickly, not all the time Some nausea in the AM. No vomiting. H pylori rx of cure - got a treatment for this in the past he thinks He has had surgery a few times for hernias there. Every so often he has pieces of what looks fishingline pop out of his skin in that area. Bloating and distention is daily and comes on gradually (usually the next morning after eating dinner the night before) and can last all day. Avoids eating if he is bloated Most days he feels like he's not passing gas unless he eats certain foods like salad. Sulfer burps (at least 1x/month). Drinks baking soda (tons of it) for a week it can go away. Associated with excess flatus, the runs, by which he means watery diarrhea, bristol type 7, 3-4 BMs/day Spinach seems to trigger it Apple cider vinegar pills helps a little - has not had sulfer burps in 3 week Tried probiotic without change Takes protonix 40mg BID, heartburn maybe 1x since Juliane. No reflux or regurgitation. Intermittent dysphagia to solids (if sticky like PB) and liquids, particularly with cold water, finewith food like chicken. Worse with certain foods like steak or pork. Chicken is okay. Some breads with yeast bothered him. It is better if he avoids bread. Salad - Stomach so hard he can't breath - diffuse distention Usually just one meal per day, dinner, always been that way White Haitian when relaxing, 1-2, could cause more pain Milk/dairy/ice cream is okay Dinner: Chicken, tomato sauce, rice, vegetables (cauliflower, broccoli, carrots, peas - [place] blend), stuffed peppers with cauliflower rice Drinks water and coffee. No soda. He does have well water. Bowels: 1 BM/day, bristol type 5, AM Bleeding: no Laxatives/blowel regimen: none Some leakage/seepage of stool Duration of time with DM/on DM meds: Metformin x 8 years, duration of time he's had DM; has some neuropathy Might have have lost some weight (fluid). He is having some chest pain intermittently, going to see his medicaid eligibility specialist. Duration of ETOH/tobacco: Has cut down on tobacco but has not quit. ETOH since age 46, 1-2 drinks/night. Prior pancreatitis: no Patient Active Problem List Diagnosis Code ??? [...] J44.9 ??? CARLOTA (obstructive sleep apnea) G47.33 Past Medical History: Diagnosis Date ??? Asthma [...] Post-operative nausea and vomiting Had scope at [facility] [place] and had vomiting after Past Surgical History: Procedure Laterality Date ??? CATARACT REMOVAL Right 2016 ??? CORONARY ANGIOPLASTY WITH STENT PLACEMENT 08/2017 ??? PRO UPPER GI ENDOSCOPY, BIOPSY 04/26/2011 EGD WITH BIOPSY performed by KIRSTEN DAMON at [facility] ENDOSCOPY ??? PRO UPPER GI ENDOSCOPY, BIOPSY N/A 09/27/2018 UPPER GASTROINTESTINAL ENDOSCOPY,WITH BIOPSY SINGLE OR MULTIPLE (WRVU 2.49) performed by Luc Hdz MD at [facility] ENDOSCOPY Social History Socioeconomic History ??? Marital status: Spouse name: Not on file ??? Number of children: Not on file ??? Years of education: Not on file ??? Highest education level: Not on file Occupational History ??? Not on file Tobacco Use ??? Smoking status: Current Every Day Smoker Packs/day: 2.00 Types: Cigarettes ??? Smokeless tobacco: Never Used Substance and Sexual Activity ??? Alcohol use: Yes Alcohol/week: 7.0 - 14.0 standard drinks Types: 7 - 14 Shots of liquor per week ??? Drug use: Not Currently ??? Sexual activity: Not on file Other Topics Concern ??? Not on file Social History Narrative ??? Not on file Social Determinants of Health Financial Resource Strain: ??? Difficulty of Paying Living Expenses: Not on file Food Insecurity: ??? Worried About Running Out of Food in the Last Year: Not on file ??? Ran Out of Food in the Last Year: Not on file Transportation Needs: ??? Lack of Transportation (Medical): Not on file ??? Lack of Transportation (Non-Medical): Not on file Physical Activity: ??? Days of Exercise per Week: Not on file ??? Minutes of Exercise per Session: Not on file Housing Stability: ??? Unable to Pay for Housing in the Last Year: Not on file ??? Number of Places Lived in the Last Year: Not on file ??? Unstable Housing in the Last Year: Not on file Current Outpatient Medications: ??? OneTouch Verio test strips Strip, TEST BLOOD GLUCOSE TWICE A DAY, Disp: , Rfl: ??? OneTouch Verio Flex meter Misc, TEST BLOOD GLUCOSE TWICE A DAY, Disp: , Rfl: ??? quicpcebwxq-rmibdnrdx-scinmfju 100-62.5-25 mcg Disk with Device, 1 puff inhaled once a day, Disp: , Rfl: ??? furosemide (Lasix) 40 mg Tablet, TAKE ONE TABLET BY MOUTH EVERY DAY, Disp: , Rfl: ??? Lantus Solostar U-100 Insulin pen, INJECT 23 UNITS SUBCUTANEOUSLY TWO TIMES A DAY, Disp: , Rfl: ??? humaLOG KwikPen 100 unit/mL Insulin Pen, , Disp: , Rfl: ??? isosorbide mononitrate (IMDUR) 60 mg Tablet Sustained Release 24 hr, , Disp: , Rfl: ??? insulin needles, disposable, (BD Ultra-Fine Mini Pen Needle) 31 gauge x 3/16 Needle, , Disp: , Rfl: ??? tamsulosin (Flomax) 0.4 mg Capsule, Take by mouth., Disp: , Rfl: ??? atorvastatin (Lipitor) 80 mg Tablet, Take 1 tablet by mouth every evening., Disp: 90 tablet, Rfl: 3 ??? pantoprazole EC (Protonix) 40 mg Tablet, Delayed Release (E.C.), Take 1 tablet by mouth 2 times daily., Disp: 90 tablet, Rfl: 3 ??? folic acid (Folvite) 1 mg Tablet, Take 1 tablet by mouth daily., Disp: 90 tablet, Rfl: 3 ??? nicotine (NICODERM CQ) 21 mg/24 hr Patch 24 hr, Change 2 patches on the skin daily. (Patient nottaking: Reported on 09/09/2020), Disp: 28 patch, Rfl: 0 ??? prasugreL (Effient) 10 mg Tablet, Take 1 tablet by mouth daily., Disp: 30 tablet, Rfl: 3 ??? sucralfate (Carafate) 100 mg/mL Suspension, Take 10 mLs by mouth every 6 hours. (Patient not taking: Reported on 09/09/2020), Disp: 420 mL, Rfl: 0 ??? thiamine (Vitamin B1), Take 1 tablet by mouth daily., Disp: 30 tablet, Rfl: 3 ??? metoprolol succinate XL (Toprol-XL) 100 mg Tablet Sustained Release 24 hr, Take 1 tablet by mouth daily. (Patient taking differently: Take 50 mg by mouth daily.), Disp: 30 tablet, Rfl: 3 ??? nitroGLYcerin (NITROSTAT) 0.4 mg Tablet, Sublingual, PLACE 1 TABLET UNDER TONGUE EVERY 5 MINUTESAS DIRECTED, Disp: , Rfl: 3 ??? metFORMIN (GLUCOPHAGE-XR) 500 mg Tablet Sustained Release 24 hr, Take 1,000 mg by mouth 2 times daily., Disp: , Rfl: 3 ??? lancets 33 gauge Misc, Lancets MISC USE DIRECTED. Active, Disp: , Rfl: ??? aspirin 81 mg Tablet, Delayed Release (E.C.), Take 81 mg by mouth Daily., Disp: , Rfl: ??? glipiZIDE (GLUCOTROL) 5 mg Tablet, Take 10 mg by mouth 2 times daily (before meals)., Disp: , Rfl: 4 Allergies Allergen Reactions ??? Venlafaxine ??? Doxycycline Nausea And Vomiting ??? Other [Unclassified Drug] Nausea And Vomiting Had an allergic reaction to an antibiotic but does not know the name Physical exam: Not done during this telemedicine visit Data: As reviewed above Impression: 55 y.o. male with IDDM c/b diabetic peripheral neuropathy presenting for evaluation of abdominal pain and bloating. ?? Dyspepsia with some abdominal wall pain, mild dysmotility (GE scan delayed at 2 hours but not 4 hours) ?? Diffuse gas/bloating and distention ?? Episodes of belching (sulfer burps) with watery diarrhea Ongoing symptoms (unchanged), but seems to have gluten and lactose sensitivity. He has a well and wedo wonder whether this is contributing to sx. DDX includes: Possible overflow diarrhea with dysmotility; probable dysbiosis (SIBO); consider pelvic floor & diaphragmatic dysfunction; consider pancreatic exocrine insufficiency (DM, ETOH, tobacco); DM medication-related side effect (metformin) less likely given chronic use; H pylori. Less likely msenteric ischemia (given hx of CV disease; note normal vessels on prior CT) as this would not account for gas/bloating/distention which seem to trigger the pain. Doubt biliary. Plan: ?? Eat small meals, 5-6 times/day ?? Try Beano with each meal ?? Try to switch to bottled water ?? Stool testing with fecal elastase, giardia, fecal fat and calprotectin ?? X ray to evaluate stool burden ?? Repeat EGD with H pylori biopsies ?? Hydrogen breath test for SIBO ?? Consider mesenteric duplex, recommend dedicated US of GB (better for detecting stones) and liver (given hx of fatty liver) Follow-up: Telehealth in 3 months The patient was located in [place] at the time of their telemedicine visit. TIME SPENT WITH PATIENT Time spent during encounter with patient including counselin minutes Time spent documenting encounter after office visit: 5 minutes Total time: 31 minutes The risks, benefits and alternatives were discussed with the patient who understands and agrees withabove. Janki Jean MD 12/27/20 Janki Jean MD Section of Gastroenterology and Hepatology [facility] [phone] documented in this encounter Plan of Treatment Upcoming Encounters Date Type Specialty Care Team Description 01/26/2022 Office Visit Ophthalmology Tania Gates , OD [facility] ER OPHTHALMOLOGY DE PT [place], [place] [address] (Wo rk) Scheduled Orders Name Type Priority Associated Diagnoses Order S chedule ENDOSCOPY CASE REQUEST: Procedures Routine Dyspepsia Orde red: 12/28/2020 EGD, UPPER GI ENDOSCOPY Scheduled Procedures Name Priority Associated Diagnoses Date/Time [...] MORSELIZED (WRVU *) MODIFIER [facility] [place] STENOSIS & HNP & MYELOPATHY documented as of this encounter Results XR Abdomen 1 view [...] who have questions please contact the health foster care case manager that requested your imaging first. ? Electronically signed by: Jazmin Reed MD, [facility] ([phone]), at 12/29/2020 3:32 PM Procedure Note Jazmin [...] ho have questions please contact the health foster care case manager that requested your imaging first. Janki Jean MD IMG DX ORDERABLES documented in this encounter Visit Diagnoses Diagnosis Watery diarrhea Abdominal bloating Flatulence, eructation, and gas pain Dyspepsia Dyspepsia and other specified disorders of function of stomach Abdominal bloating Flatulence, eructation, and gas pain documented in this encounter Care Teams Director Nurses' Registry Relationship Specialty Start Date End Date Robinson Vazquez, WARDSPERSON PCP - General Family Medicine 12/11/[address] [place] [address] [address] [place] [address] documented as of this encounter
--- OUTSIDE RECORDS SUMMARY | 2021-12-17 01:01 | XMS_ITS | Encounter Summary ---
:1965 Author Organization [facility] [place] [address] Care Team Providers Name Role Phone Sae Marr MD Primary Care Provider Reason for Visit Reason Onset Date Comments Follow-up 09/06/2019 tobacco treatment Encounter Details Date Type Department Care Team Description 09/06/2019 Telephone Vascular Surgery at [facility] (tobacco [facility], RN treatment) [place] [address] Social History Tobacco Use Types Packs/Day Years Used Date Current Every Day Smoker Cigarettes 1 Smokeless Tobacco: Never Used Alcohol Use Standard Drinks/Week Comments Yes 7 (1 standard drink = 0.6 oz pure alcoho l) Alcohol Habits Answer Date Recorded How often do you have a drink containing 4 or more times a w little shell tribe 07/05/2018 alcohol? How many drinks containing alcohol do you have 10 or more 07/05/2018 on a typical day when you are drinking? How often do you have six or more drinks on one Daily or alfredito ost daily 07/05/2018 occasion? Comment: Not asked Sex Assigned at Date Recorded Not on file documented as of this encounter Miscellaneous Notes Telephone Encounter - [facility]n Guevara RN - 09/06/2019 8:52 AM EDT DATE: 09/06/2019 NAME: Samy Patricio JrJenn : 1965 Reason for Call: 1-month follow-up for Tobacco Treatment Pt continues to smoke. He attempted to enroll in the [place] quit line program and was unable to receive NRT through the program. Pt plans to continue the quit attempt using cold-turkey method. Pt was encouraged to return to Tobacco Treatment clinic should he need more replacement supplies. Contact information provided. Tobacco status updated. Thank you . Bryn Guevara, MSN, RN-, [facility] Tobacco Nursing Specialist [facility] Pager #[phone] documented in this encounter Plan of Treatment Upcoming Encounters Date Type Specialty Care Team Description 01/26/2022 Office Visit Ophthalmology Tania Gates , OD [facility] ER DR OPHTHALMOLOGY DE PT [place], [place] [address] (Wo rk) Scheduled Procedures Name [...] HNP & MYELOPATHY MORSELIZED (WRVU *) MODIFIER [address] STENOSIS & HNP & MYELOPATHY documented as of this encounter Visit Diagnoses Not on filedocumented in this encounter Care Teams Vice Chancellor Relationship Specialty Start Date End Date Sae Marr MD PCP - General General Internal Medicine 08/06/[address] [place] [address] documented as of this encounter
--- OUTSIDE RECORDS SUMMARY | 2021-12-17 01:01 | XMS_ITS | Encounter Summary ---
:1965 Author Organization [facility] Address [address] [place] [address] Care Team Providers Name Role Phone Sae Marr MD Primary Care Provider Reason for Visit Reason Comments Eye Exam Encounter Details Date Type Department Care Team Description 02/12/2020 Office Visit Op[address]mology at [facility] C Tania Gates, Diabetic eye exam; [facility] Pseudophakia of right eye; [facility] Age-related nuclear cataract of left eye; [place] [address] [place] [address] DR History of eye injury; [phone] OPHTHALMOLOGY Astigmatism of both eyes with presbyopia DEPT [place], [place] [address] Social History Tobacco Use Types Packs/Day Years Used Date Current Every Day Smoker Cigarettes 2 Smokeless Tobacco: Never Used Alcohol Use Standard Drinks/Week Comments Yes 7 (1 standard drink = 0.6 oz pure alcoho l) Alcohol Habits Answer Date Recorded How often do you have a drink containing 4 or more times a w levelock 07/05/2018 alcohol? How many drinks containing alcohol do you have 10 or more 07/05/2018 on a typical day when you are drinking? How often do you have six or more drinks on one Daily or alfredito ost daily 07/05/2018 occasion? Comment: Not asked Sex Assigned at Date Recorded Not on file documented as of this encounter Progress Notes Tania Gates, OD - 02/12/2020 10:00 AM EST Encounter Diagnoses Name Primary? Diabetic eye exam ??? Pseudophakia of right eye ??? Age-related nuclear cataract of left eye ??? History of eye injury ??? Astigmatism of both eyes with presbyopia Samy Oreilly Sheng Acosta. is a 54 y.o. with the following ophthalmic problems: Assessment and Plan: DM II, No retinopathy OU, No CSME OU - Advised BG control with diet, exercise, & meds per PCP recommendations. H/O Eye Injury in 1981 with macular scar, slight nerve pallor OS - Noted. Cataracts OS, Pseudophakia OD - Monitor for now, sooner with changes in vision. Refractive Error OU - Rx given today in polycarbonate and advised time checker wear for eye protection! - Findings and concerns discussed with Samy and he expressed understanding. -Upon Return CEE in 1 year, sooner with changes in sx/vision. Eyeglass Final Rx Eyeglass Final Rx Sphere Cylinder [place] Dist VA Add Near VA Right +0.50 +0.50 175 20/20 - +2.50 20/20 Left Balance Expiration Date: 02/12/2022 Polycarbonate documented in this encounter Plan of Treatment Upcoming Encounters Date Type Specialty Care Team Description 01/26/2022 Office Visit Ophthalmology Tania Gates , OD [facility] OPHTH[facility] [place], [place] [address] ( rk) Scheduled Procedures Name Priority Associated [...] as of this encounter Visit Diagnoses Diagnosis Diabetic eye exam Examination of eyes and vision Pseudophakia of right eye Lens replaced by other means Age-related nuclear cataract of left eye Senile nuclear sclerosis History of eye injury Personal history of other injury Astigmatism of both eyes with presbyopia documented in this encounter Care Teams Assistant Professor Of Philosophy Relationship Specialty Start Date End Date Sae Marr MD PCP - General General Internal Medicine 08/06/[address] [place] [address] documented as of this encounter
--- OUTSIDE RECORDS SUMMARY | 2021-12-17 01:01 | XMS_ITS | Encounter Summary ---
:1965 [place] [address] Care Team Providers Name Role Phone Robinson Vazquez APRN Primary Care Provider Encounter Details Date Type Department Care Team Description 12/18/2020 Orders Only Chemical Analyst Royce No, Screening for cardiovascular condition; [facility] Coronary artery disease, unspecified ves danielle or lesion type, unspecified whether angina present, unspecified whether [place] or transplanted heart; [facility] [place] [address] [place], [place] [phone] (Work) [phone] Social History Tobacco Use Types Packs/Day Years Used Date Current Every Day Smoker Cigarettes 2 Smokeless Tobacco: Never Used Alcohol Use Standard Drinks/Week Comments Yes 7 (1 standard drink = 0.6 oz pure alcoho l) Alcohol Habits Answer Date Recorded How often do you have a drink containing 4 or more times a w assiniboine and gros ventre tribes 07/05/2018 alcohol? How many drinks containing alcohol [...] [facility] DE PT [place], [place] [address] (Wo rk) Scheduled Procedures Name [...] HNP & MYELOPATHY MORSELIZED (WRVU *) MODIFIER [address] STENOSIS & HNP & MYELOPATHY documented as of this encounter Visit Diagnoses Diagnosis Screening for cardiovascular condition Screening for other and unspecified card iovascular conditions Coronary artery disease, unspecified ves danielle or lesion type, unspecified whether angina present, unspecified whether octavio ve or transplanted heart Chest discomfort Other chest pain documented in this encounter Care Teams Ingot Buggy Operator Relationship Specialty Start Date End Date Robinson Vazquez, CLASSIFIER PCP - General Family Medicine 12/11/20 [address] [facility] [address] [place] [address] documented as of this encounter
--- OUTSIDE RECORDS SUMMARY | 2021-12-17 01:01 | XMS_ITS | Encounter Summary ---
:1965 Author Organization [facility] [address] Care Team Providers Name Role Phone Robinson Vazquez APRN Primary Care Provider Encounter Details Date Type Department Care Team Description 12/29/2020 Surgery Medical Underwriter Casimiro Blue MD CARDIAC CATHETERIZATION [facility] [address] [place] [address] [place] [address] [phone] (Wo rk) Social History Tobacco Use Types Packs/Day Years Used Date Current Every Day Smoker Cigarettes 2 Smokeless Tobacco: Never Used Alcohol Use Standard Drinks/Week Comments Yes 7 (1 standard drink = 0.6 oz pure alcoho l) Alcohol Habits Answer Date Recorded How often do you have a drink containing 4 or more times a w [place] 07/05/2018 alcohol? How many drinks containing alcohol [...] Sign Reading Time Taken Comments Blood Pressure 137/76 12/29/2020 9:46 AM EDT Pulse 84 12/29/2020 9:46 AM EDT Temperature 36.7 ??C (98.1 ??F) 12/29/2020 9:46 AM EDT Respiratory Rate 18 12/29/2020 9:46 AM EDT Oxygen Saturation 96% 12/29/2020 9:46 AM EDT Inhaled Oxygen Concentration - - Weight 134.7 kg (297 lb) 12/29/2020 9:46 AM EDT Height 182.9 cm (6') 12/29/2020 9:46 AM EDT Body Mass Index 40.28 12/29/2020 9:46 AM EDT documented in this encounter Discharge Instructions Patient InstructionsDow, Yves Garnica MD - 12/29/2020 12:52 PM EDT Radial Access for Heart Cath Activity Try to avoid bending your wrist for the first 12-24 hours after the procedure to allow the artery tofully heal. Do not participate in active sports for 48 hours. Do not lift anything greater than 5 lbs. Catheter Insertion Area Care Take the dressing off of the catheter insertion site the morning following the procedure. Leave the site open to air. If the site is oozing you may cover it with a band aid. You may take a shower if you wish. Look for signs of infection over the next several days. It is uncommon to have any visible blood at the site, any obvious bleeding is abnormal. A bruise around the wrist or small lump under the skin is normal: they generally disappear in 3-5 days. Expect some mild tenderness over the area where the catheter was inserted. You will notice this after the local anesthetic (numbing medicine) wears off. This should improve during the 24-48 hours afterthe procedure. You may use acetaminophen (tylenol) if needed. Contact your doctor if the discomfort w orsens. Problems to Watch for If there is bright red blood flowing from the catheter insertion area: *stop what you are doing *hold pressure steadily on the area for 15 minutes *call for help *if the bleeding does not stop in 15 minutes call 911 for an ambulance. If there is swelling with black and blue color at the catheter insertion site, there may be bleeding inside. Contact the doctor if there is any increase in size. Look at the insertion site for the first few days at home. Signs of infection are: *redness *swelling *yellow, white, green or brown foul smelling drainage. *increased soreness If you think there is an infection, take your temperature. Then call your doctor. The limb on the side where you had your catheterization should look and feel normal in color, sensation, and temperature. If your hand or fingers become cool, pale, blue or change color contact your doctor. If you are having numbness or tingling in your fingers or hand contact your doctor. Follow-up: No future appointments. Your Inpatient Doctor: Snehal Dia MD Your Primary Care Provider: Sae Marr MD [phone] For questions regarding this document or issues relating to this hospitalization on the Medical Service, please contact your inpatient physician through the [facility] Contestant Coordinator . Issues after hours and on weekends will be handled by the Hospitalist staff on-call. documented in this encounter Medications at Time of Discharge Medication Sig Dispensed Refills Start Date End Date OneTouch Verio test strips TEST BLOOD GLUCOSE 0 0 06/23/2020 Strip TWICE A DAY OneTouch Verio Flex meter TEST BLOOD GLUCOSE 0 Misc TWICE A DAY [id number] 1 puff inhaled once a 0 nter [...] (before meals). documented as of this encounter Progress Notes Ann Leroy RN - 12/29/2020 3:07 PM EDT Pt ready for discharge - meeting discharge criteria VSS reviewed discharge instructions- answered questions pt comfortable with discharge. IV removed all sites cdi . Pt transported to same day waiting via wheel chair to pt . documented in this encounter H&P Notes Royce Donahue PA - 12/29/2020 10:12 AM EDT Patient Name: Samy Patricio Jr. Patient Age: 55 y.o. Birthdate: 1965 Admit date: 12/29/2020 Attending Physician: Snehal Dia MD [facility] Interventional Cardiology Adult Pre-Procedure H&P Update: Mr Samy Patricio [id number] 1965 Chief Complaint: Chest discomfort HPI: Samy Patricio Jr. is a 55 y.o. male referred for cardiac catheterization By his toggler in the [place] [facility] BRITT Kingston ([facility]) for evaluation of coronary artery anatomy and cardiac hemodynamics in the setting of progressive angina and prior CAD. His medical history is notable for coronary disease with nstemi 2017 and RCA/LCx intervention at [facility], then in 2019 STEMI with inferior ecg changes and PCI to RCA leaving against medical advice at the time, DM, hypertension, hyperlipidemia. He notes progressive angina and dyspnea as well as peripheral edema. He is on imdur, furosemide 40mg daily, lipitor, metop 100mg daily, aspirin There have not been any changes in health status since last seen in clinic. No fevers, no chills, no bleeding. Please see recent outpatient clinic note for comprehensive physical and history documentation. TTE: 07/2019 SUMMARY: ?? 1. The left ventricular chamber size, wall [...] from 07/14/06, there is no significant change. Cath 07/2020: Conclusions: * One vessel coronary artery disease (RCA) * Elevated left ventricular end diastolic pressure * Successful stent insertion of the ostial RCA lesion * See Dual Antiplatelet (DAPT) Recommendations above. Complications/Events: The patient had no complications during these procedures. Comments: Radial provided adequate support; did require sedation due to wrist discomfort at beginning of case, very mild spasm seen. Postdilation performed to high pressure. IVUS highlighted diffuse disease of RCA. Planned Procedure: LHC / RHC / Coronary angios / PCI if indicated Cardiac History: CAD prior STEMI Smoker HTN Other Pertinent Medical History: GERD/ Barretts DM SOCIAL Hx: Lives in [facility] Outpatient Medications Marked as Taking for the 12/29/20 encounter (Hospital Encounter) Medication Sig Dispense Refill ??? dxovinaqltc-qheotihcl-fahaifrb 100-62.5-25 mcg Disk with Device 1 puff inhaled once a day ??? furosemide (Lasix) 40 mg Tablet TAKE ONE TABLET BY MOUTH EVERY DAY ??? Lantus Solostar U-100 Insulin pen INJECT 23 UNITS SUBCUTANEOUSLY TWO TIMES A DAY ??? humaLOG KwikPen 100 unit/mL Insulin Pen ??? isosorbide mononitrate (IMDUR) 60 mg Tablet Sustained Release 24 hr ??? tamsulosin (Flomax) 0.4 mg Capsule Take by mouth. ??? atorvastatin (Lipitor) 80 mg Tablet Take 1 tablet by mouth every evening. 90 tablet 3 ??? pantoprazole EC (Protonix) 40 mg Tablet, Delayed Release (E.C.) Take 1 tablet by mouth 2 times daily. 90 tablet 3 ??? folic acid (Folvite) 1 mg Tablet Take 1 tablet by mouth daily. 90 tablet 3 ??? thiamine (Vitamin B1) Take 1 tablet by mouth daily. 30 tablet 3 ??? metoprolol succinate XL (Toprol-XL) 100 mg Tablet Sustained Release 24 hr Take 1 tablet by mouthdaily. (Patient taking differently: Take 50 mg by mouth daily.) 30 tablet 3 ??? metFORMIN (GLUCOPHAGE-XR) 500 mg Tablet Sustained Release 24 hr Take 1,000 mg by mouth 2 times daily. 3 ??? aspirin 81 mg Tablet, Delayed Release (E.C.) Take 81 mg by mouth Daily. ??? glipiZIDE (GLUCOTROL) 5 mg Tablet Take 10 mg by mouth 2 times daily (before meals). 4 PHYSICAL: BP 137/76 Pulse 84 Temp 36.7 ??C (98.1 ??F) (Temporal) Resp 18 Ht 182.9 cm (6') Wt 134.7 kg (297 lb) SpO2 96% BMI 40.28 kg/m?? Gen: Alert, comfortable appearing, male in NAD HEENT: EOMI, MMM Neck: Supple, no JVD CV: RRR, no M/R/G appreciated, normal S1/S2, PMI not palpated Resp: CTAB, no W/R/R Abd: Soft, NT/ND, +BS Ext: No edema, clubbing, or cyanosis. Warm and well perfused. Neuro: CN grossly intact, moving all extremities Psych: Appropriate affect Pulses: 2+ bilateral radial pulses, right hand sakshi's test demonstrates adequate reperfusion via ulnar artery alone, Barbeau test to be done in procedure room, 2+ bilateral femoral pulses, no femoral bruit appreciated, 2+ bilateral DP pulses Pre-Sedation Assessment: Previous Sedation/Anesthesia: yes Previous Adverse Reactions: none Alcohol: yes Drugs: none in last 24 hours Mallampati: II (soft palate, uvula, fauces visible) Mallampati Class: 2 ASA Class: III Sedation Plan: Moderate Sedation, IV conscious sedation with fentanyl and midazolam. Labs reviewed and notable for: Lab Results Component Value Date WBC 7.8 08/07/2019 HGB 14.5 08/07/2019 HCT 43.0 08/07/2019 MCV 91.3 08/07/2019 PLATELET 181 08/07/2019 Lab Results Component Value Date CREATININE 1.43 08/07/2019 BUN 14 08/07/2019 NA 141 08/07/2019 K 4.1 08/07/2019 CL 100 08/07/2019 CO2 30 08/07/2019 Assessment/Plan: 55 y.o. male here for cardiac catheterization for angina with dyspnea on exertion in the setting of known prior CAD. Will proceed with cath. - proceed as planned - consent signed -no apparent contraindication to DAPT, patient denies upcoming or planned procedures/operations, anddenies ongoing or recent bleeding events - FULL code -12-Lead ECG reviewed -Labs Reviewed: LABS currently in process. I have personally discussed the procedure, including benefits and risks, with the patient who agreesto proceed. The indications for the catheterization, the expected benefits, and the possible risks were reviewed in detail with the patient. The potential for , heart attack, stroke, kidney failure, bleeding, allergic reaction, vascular complications and infection as well as other potential complications were reviewed. The possibility of stenting and other percutaneous interventions, with associated risk, was reviewed. The potential need for emergent coronary artery bypass surgery was reviewed. Alternatives were discussed and the patient's questions were answered in full. Following this discussion, the patient consented to the procedure and signed a form attesting to this, which is in the chart ISABELLE Jackson Interventional Cardiology 12/29/20 10:12 AM [facility] Pager: [phone] documented in this encounter Miscellaneous Notes Brief Op Note - Snehal Dia MD - 12/29/2020 12:52 PM EDT Preliminary Cardiac Catheterization Procedure Note: Patient Name: Samy Patricio Jr. : [id number] MR#: [id number] Case Date: 12/29/2020 Contestant Coordinator: Surgeon(s) and Role: * Snehal Dia MD - Primary * Yves Fernandez MD - Fellow Preoperative diagnosis: Coronary artery disease Postoperative diagnosis: same Procedure(s) performed: Coronary angiography, left heart cath Access: 6 SL R radial => TR band A time-out was conducted prior to the start of the procedure to verify the correct patient and procedure, procedure location, and all relevant critical information. Preliminary findings: R dominant, patent stents in proximal RCA and proximal LCX, no significant obstructive lesions. LVEDP 28-30. The patient tolerated the procedures smoothly and was transferred from the cardiac catheterization lab to the next level of care in stable condition. No evident early complications. Full report to follow. SNEHAL DIA MD documented in this encounter Plan of Treatment Upcoming Encounters Date Type Specialty Care Team Description 01/26/2022 Office Visit Ophthalmology Tania Gates , OD [facility] OPHTHALMOLOGY [place] [phone] (Wo rk) Scheduled Procedures Name Priority Associated [...] MORSELIZED (WRVU *) MODIFIER K2 MEDICAL - [place] STENOSIS & HNP & MYELOPATHY documented as of this encounter Procedures Procedure Name Priority Date/Time Associated Diagnosis Comme nts POCT GLUCOSE Routine 01/26/2021 7:22 Results for this AM EST procedure are i n the results section. CARDIAC CATHETERIZATION Routine 12/29/2020 12:50 Screening for Results for this PM EDT cardiovascular procedure are in condition the results Coronary artery section. disease, unspecified vessel or lesion type, unspecified whether angina present, unspecified whether little traverse or transplanted hea rt Chest discomfort POCT GLUCOSE Routine 12/29/2020 12:32 Results for this PM EDT procedure are i n the results section. BMP W/FASTING GLUCOSE STAT 12/29/2020 10:19 Re sults for this AM EDT procedure are i n the results section. HEMOGRAM STAT 12/29/2020 10:19 Results for this AM EDT procedure are i n the results section. DIFFERENTIAL, AUTOMATED STAT 12/29/2020 10:19 Results for this AM EDT procedure are i n the results section. HC CBC,PLT & AUTO DIFF STAT 12/29/2020 10:19 AM EDT EKG 12-LEAD Routine 12/29/2020 10:18 Screening for Results fo r this AM EDT cardiovascular procedure are in condition the results Coronary artery section. disease, unspecified vessel or lesion type, unspecified whether angina present, unspecified whether little traverse or transplanted hea rt Chest discomfort POCT GLUCOSE Routine 12/29/2020 9:50 Results for this AM EDT procedure are i n the results section. documented in this encounter Results POCT Glucose (01/26/2021 7:22 AM EST) P athologist Signature POC Glucose 143 65 - 199 [facility] mg/dL [facility] Comment: Supplemental ranges: <140 mg/dL before meals <180 mg/dL all other times of the day Specimen Anatomical Collection Method Collection Time Receive d Time (Source) Location / / Volume Laterality Blood 01/26/2021 7:22 AM 7:22 EST AM EST Snehal Dia MD POINT OF CARE TEST ORDERABLE S Performing Organization Address City/State/[place] [address] CARDIAC CATHETERIZATION (12/29/2020 12:50 PM EDT) Anatomical Region Laterality Modality Other Specimen (Source) Anatomical Location Collection Method / Collectio n Time Received Time / Laterality Volume Narrative 12/29/2020 4:24 PM EDT ?[facility] ? Cardiac Cathete rization/Intervention Report ? Patient Name: Samy Patricio Jr.. ? Procedure Date: 12/29/2020 ? A #: [id number] ? Primary Physician: Snehal Dia ? Case #: [id number] ? File Name: [id number] ? Catheterization Order Number: [id number] ? [facility] ? Final Report [place], [place] ? Patient Name: ? Samy Acosta. [facility] ?ID#: ?[id number] ? : ?1965 ? Procedure Date: ? December 29 ? Case #: ? [id number] ? Room: ? 1 ? Case Physician: ? Shamir Cummings ? Start: ?12:24 ?Fellow: ? Rajesh Arias ?Admission: ??12/29/2020 ? Referring Physician: ??Eileen Kingston M.D. ? Procedures: ?* Coronary Angiography ?* Left Heart Catheterization ? History ?Samy Patricio is a 55 y ear old man. He has hypertension and a ?family history of coronary jennifer ry disease. The patient's smoking status ?is Current with Current - Every Day frequency, using cigarettes. ?Cigarette use is Heavy (>=10/da y). He has hypercholesterolemia managed ?with lipid therapy. The patient has diabetes managed with oral ?medication. He has sequelae fro m diabetes. The patient has a prior ?history of coronary artery dise ase. He is status post a remote myocardial ?infarction. The patient had a r emote coronary intervention procedure. ?Prior to the initiation of this procedure, the patient was designated as ?ASA Class III. The [facility] clinica l frailty scale is 4: Vulnerable. ? Diagnostic Tests: ?Electrocardiography: ? EKG was assessed by ECG. EKG was Abnormal. EKG showed ST Deviation ? >= 0.5 mm. ?Medications Prior to Procedure: ? Aspirin, Beta Alejandra, L mariaelena Acting Nitrate and Statin. ? Indications for Diagnostic Cath: ?The priority of the diagnostic procedure was Elective. The indication for ?the asset availability leader visit is worsening angina. Chest pain symptom assessment ?was: Typical Angina. ? Technique: ?A 6 SLFr sheath was inserted in the right radial artery utilizing the ?Seldinger technique. The left c oronary artery was injected utilizing a ?6Fr JL 3.5 catheter. A 6Fr JR 4 catheter was used to inject the right ?coronary artery. Left ventricul ar pressure was performed utilizing a 6Fr ?JR 4 catheter. 8,000 units of h eparin were administered. A total of 100cc ?of Omnipaque were opened, 75cc of Omnipaque were administered and 25cc of ?Omnipaque were wasted. Radiatio n: Fluoro time was 6.6 minutes, dose area ?product was 60,800 mGYcm2 and a ir kerma was 862 mGY. See the case log for ?additional details. ?The patient received the follow ing medications prior to and during the ?procedure: ? Unfractionated Heparin. ? Hemodynamics: ?Left Heart Pressures ? Resting: ? Syst D iast ? EDP ?a ?v ? m ?Ao 125 ?? 80 ?95 ?LV 125 ? 28 ? Coronary Angiography: ?Dominance: Right ?Left Main ? The left main was normal , free of disease. ?Left Anterior Descending ? There was mild diffuse ( <=25% stenosis) disease of the entire vessel ? segment of the left ante rior descending artery (LAD). ??The LAD was ? moderate in size. ??The mid segment of the LAD had a long segmental ? 40% stenosis. ?Left Circumflex ? There was mild diffuse ( <=25% stenosis) disease of the proximal ? segment of the left circ umflex artery (LCX). ??The previously placed ? stent is patent. The mid segment of the LCX had a long segmental 40% ? stenosis. ??The distal v essel was small. ?Right Coronary Artery ? There was mild diffuse ( <=25% stenosis) disease of the proximal ? segment of the right cor onary artery (RCA). ??The RCA was moderate in ? size. ??The previously p laced stent is patent. The mid segment of the ? RCA had mild diffuse (<= 25% stenosis) disease. ??There also was mild ? diffuse (<=25% stenosis) disease of the distal segment of the RCA ? and it was calcified. ? Vascular Access: ?Vascular Access Management: ? Mechanical Compression o f the right radial artery access site was ? performed. ? Conclusions: ?* Nonobstructive coronary arter y disease ?* Elevated left ventricular end diastolic pressure ?* Patent previously placed sten ts in proximal RCA and proximal LCX. ?* No significant change in jamari nary anatomy on direct comparison with ?prior study (post PCI) July 2019 . ? Complications/Events: ?The patient had no complication s during these procedures. ?The attending physician was presen t for the entire procedure. ?Dr. Snehal Dia M.D. was present during the moderate sedation ?intraservice time as documented by the sedation nurse. ??Case time = 00:24. ?Dr. Snehal Dia M.D. performed t he coronary angiography and left heart ?catheterization. ? Snehal Dia M.D. ? Electronically Signed by: Snehal Dia M.D. ? Report Finalized: 12/29/2020 ??16:17 ? Procedure Note Snehal Dia MD - 12/29/2020 [facility] Cardiac Catheterization/Intervention Re port Patient Name: Samy Patricio Jr. Procedure Date: 12/29/2020 A #: [id number] Primary Physician: Snehal Dia Case #: [id number] File Name: [id number] Catheterization Order Number: [id number] [facility] Final Report [place], [place] Patient Name: Samy Patricio ID#: [id number] : 1965 Procedure Date: December 29, 2020 Case #: [id number] Room: 1 Case Physician: Snehal Dia M.D. Start : 12:24 Fellow: Yves Fernandez M.D. Admission: 2020 Referring Physician: Eileen Kingston M.D. Procedures: * Coronary Angiography * Left Heart Catheterization History Samy Patricio is a 55 year old man. He has hypertension and a family history of coronary artery disea se. The patient's smoking status is Current with Current - Every Day marcos quency, using cigarettes. Cigarette use is Heavy (>=10/day). He h as hypercholesterolemia managed with lipid therapy. The patient has atilio betes managed with oral medication. He has sequelae from diabet es. The patient has a prior history of coronary artery disease. He is status post a remote myocardial infarction. The patient had a remote co ronary intervention procedure. Prior to the initiation of this procedu re, the patient was designated as ASA Class III. The [facility] clinical frailt y scale is 4: Vulnerable. Diagnostic Tests: Electrocardiography: EKG was assessed by ECG. EKG was Abnorm al. EKG showed ST Deviation >= 0.5 mm. Medications Prior to Procedure: Aspirin, Beta Alejandra, Long Acting Nitr ate and Statin. Indications for Diagnostic Cath: The priority of the diagnostic procedur e was Elective. The indication for the asset availability leader visit is worsening angina. Chest pain symptom assessment was: Typical Angina. Technique: A 6 SLFr sheath was inserted in the rig ht radial artery utilizing the Seldinger technique. The left coronary artery was injected utilizing a 6Fr JL 3.5 catheter. A 6Fr JR 4 cathete r was used to inject the right coronary artery. Left ventricular press ure was performed utilizing a 6Fr JR 4 catheter. 8,000 units of heparin w ere administered. A total of 100cc of Omnipaque were opened, 75cc of Omnip aque were administered and 25cc of Omnipaque were wasted. Radiation: Fluor o time was 6.6 minutes, dose area product was 60,800 mGYcm2 and air kerma was 862 mGY. See the case log for additional details. The patient received the following medi cations prior to and during the procedure: Unfractionated Heparin. Hemodynamics: Left Heart Pressures Resting: Syst Diast EDP a v m Ao 125 80 95 LV 125 28 Coronary Angiography: Dominance: Right Left Main The left main was normal, free of disea se. Left Anterior Descending There was mild diffuse (<=25% stenosis) disease of the entire vessel segment of the left anterior descending artery (LAD). The LAD was moderate in size. The mid segment of th e LAD had a long segmental 40% stenosis. Left Circumflex There was mild diffuse (<=25% stenosis) disease of the proximal segment of the left circumflex artery ( LCX). The previously placed stent is patent. The mid segment of the LCX had a long segmental 40% stenosis. The distal vessel was small. Right Coronary Artery There was mild diffuse (<=25% stenosis) disease of the proximal segment of the right coronary artery (R CA). The RCA was moderate in size. The previously placed stent is pa tent. The mid segment of the RCA had mild diffuse (<=25% stenosis) d isease. There also was mild diffuse (<=25% stenosis) disease of the distal segment of the RCA and it was calcified. Vascular Access: Vascular Access Management: Mechanical Compression of the right rad ial artery access site was performed. Conclusions: * Nonobstructive coronary artery diseas e * Elevated left ventricular end diastol ic pressure * Patent previously placed stents in pr oximal RCA and proximal LCX. * No significant change in coronary daily neida on direct comparison with prior study (post PCI) July 2019. Complications/Events: The patient had no complications during these procedures. The attending physician was present for the entire procedure. Dr. Snehal Dia M.D. was present duri ng the moderate sedation intraservice time as documented by the sedation nurse. Case time = 00:24. Dr. Snehal Dia M.D. performed the co ronary angiography and left heart catheterization. Snehal Dia M.D. Electronically Signed by: Snehal Dia M.D. Report Finalized: 12/29/2020 16:17 Snehal Dia MD CARDIAC CATH ORDERABLES POCT Glucose (12/29/2020 12:32 PM EDT) athologist Signature POC Glucose 152 65 - 199 [facility] mg/dL [facility] Comment: Supplemental ranges: <140 mg/dL before meals <180 mg/dL all other times of the day Specimen Anatomical Collection Method Collection Time Receive d Time (Source) Location / / Volume Laterality Blood 12/29/2020 12:32 12/29/2020 PM EDT 12:32 PM EDT Snehal Dia MD POINT OF CARE TEST ORDERABLE S Performing Organization Address City/State/ZIP Code Phon e Number [place], [place] [address] Differential, Automated (12/29/2020 10:19 AM EDT) athologist Signature Neutrophils % 63.2 % [facility] LABORATORY Neutr Abs (ANC) 4.73 1.70 - [facility] 6.10 [facility] x10(3)/[facility] LABORATORY Lymphocytes % 25.2 % [facility] Lymphocytes Abs 1.9 0.9 - 3.2 [facility] x10(3)/[facility] LABORATORY Monocytes % 7.7 % [facility] Monocyte Abs 0.6 0.3 - 0.9 [facility] x10(3)/[facility] LABORATORY Eosinophils % 2.5 % [facility] Eosinophils Abs 0.2 0.0 - 0.4 [facility] x10(3)/[facility] LABORATORY Basophils % 0.9 % [facility] Basophils Abs 0.1 0.0 - 0.1 [facility] x10(3)/[facility] LABORATORY Immature Gran % 0.50 % [facility] Comment: Immature granulocytes(IG's)percentage an d absolute count will include metamyelocytes, myelocytes, and promyelo cytes. Blood smears from CBCs yielding IG's will be scanned manually for concor dance. If this scan disagrees with the automated IG or if promyelocytes are not ed, a manual differential will be performed. Julianne Gran Abs 0.04 0.00 - 0.04 x10(3)/[facility] Y [facility] LABORATORY Specimen Anatomical Collection Method Collection Time Receive d Time (Source) Location / / Volume Laterality Blood 12/29/2020 10:19 12/29/2020 AM EDT 10:43 AM EDT Resulting Agency Comment Spec In Lab Royce WALTON HEMATOLOGY ORDERABLES Performing Organization Address City/State/[place] [address] (ABNORMAL) Hemogram (12/29/2020 10:19 AM EDT) Analysis Performed At Patho logist Time Signature WBC 7.5 4.0 - 9.5 [facility] x10(3)/[facility] LABORATORY RBC 4.53 (L) 4.58 - [facility] 5.54 [facility] x10(6)/[facility] LABORATORY Hemoglobin 14.4 13.7 - [facility] 16.5 g/dL [facility] Hematocrit 42.6 40.5 - [facility] 48.5 % [facility] MCV 94.0 (H) 82.9 - [facility] 93.1 [facility] LABORATORY MCH 31.8 27.5 - [facility] 32.1 pg [facility] MCHC 33.8 32.0 - [facility] 35.7 g/dL [facility] Platelets 205 145 - 357 [facility] x10(3)/[facility] LABORATORY RDWSD 42.9 36.0 - [facility] 45.0 [facility] LABORATORY RDWCV 12.4 11.4 - [facility] 13.8 % [facility] MPV 10.0 7.6 - 12.9 [facility] LABORATORY nRBC % Auto 0.0 % [facility] nRBC Abs Auto 0.000 0.000 - [facility] 0.000 [facility] x10(3)/[facility] LABORATORY Specimen Anatomical Collection Method Collection Time Receive d Time (Source) Location / / Volume Laterality Blood 12/29/2020 10:19 12/29/2020 AM EDT 10:43 AM EDT Resulting Agency Comment Spec In Lab Royce WALTON HEMATOLOGY ORDERABLES Performing Organization Address City/State/[place] [address] (ABNORMAL) BMP w/fasting Glucose (12/29/2020 10:19 AM EDT) athologist Signature Glucose 252 (H) 65 - 99 [facility] Fasting mg/dL [facility] Comment: ?Fasting* Glucose Interpretive C riteria [...] of Diabetes Mellitus, Position Statement from the [place] [employer]. ??Diabete s Care, Volume 33, Supplement 1, Mar 2009 BUN 13 10 - 20 mg/dL [facility]ORATORY Creatinine 1.09 0.80 - 1.50 mg/dL [facility] LABORATORY Sodium 138 135 - 145 mmol/L [facility]OR[facility] Potassium 4.2 3.5 - 5.0 mmol/L [facility] Comment: Please note: ??Patients with WBC >100,00 0 may have falsely elevated Potassium levels. ??For accurate Potassium quantif ication in these patients send serum separator tube (gold top) for subsequent determinations. ??Contact the Clinical Chemistry Laboratory if there are any qu estions. Chloride 101 98 - 107 mmol/L [facility] CO2 29 22 - 31 mmol/L [facility] Anion Gap 8 5 - 15 mmol/L [facility] Calcium 9.3 8.5 - 10.5 mg/dL [facility]OR[facility] Estimated GFR 77 >=60 mL/min/1.73 m?? [facility] Comment: This patient? s estimated glomerular filtration rate (eGFR) is between 77 mL/min/1.73 m2 (patients with less muscl e mass per kg body weight) and 89 mL/min/1.73 m2 (patients with more muscl e mass per kg body weight) as determined by the CKD-EPI equation. Asse ssment of eGFR is not appropriate when creatinine concentrations are rapidly ch anging. For clinical decisions where creatinine clearance will affect therapy , a 24-hour urine creatinine clearance may be advised. Assignment of CKD stage 1 - 5 for patien ts with an eGFR near the transition point between stages may be based on cli nical assessment of muscle mass and symptoms in addition to eGFR. Specimen Anatomical Collection Method Collection Time Receive d Time (Source) Location / / Volume Laterality Blood 12/29/2020 10:19 12/29/2020 AM EDT 10:43 AM EDT Resulting Agency Comment Spec In Lab Snehal Dia MD CHEMISTRY ORDERABLES Performing Organization Address City/State/[place] [address] EKG 12 Lead (12/29/2020 10:18 AM EDT) [facility] gist Method Time Signature Ventricular rate 79 BPM MUSE SYSTEM Atrial Rate 79 BPM MUSE SYSTEM P-R Interval 168 ms MUSE SYSTEM QRS Duration 88 ms MUSE SYSTEM Q-T Interval 374 ms MUSE SYSTEM QTC Calculated 428 ms MUSE SYSTEM (Bezet) Calculated P [place] 60 degrees MUSE SYSTEM Calculated R [place] 56 degrees MUSE SYSTEM Calculated T [place] 39 degrees MUSE SYSTEM INTERPRETATION Normal sinus rhythm MUSE SYSTEM Normal ECG When compared with ECG of 07-AUG-2019 08:57, T wave inversion no longer evident in Inferior leads Confirmed by MD Bobbi, Derrick ([id number]) on 12/29/2020 2:14:1 3 PM Specimen Anatomical Collection Method Collection Time Receive d Time (Source) Location / / Volume Laterality 12/29/2020 10:18 12/29/2020 2:14 AM EDT PM EDT Snehal Dia MD ECG ORDERABLES Performing Organization Address City/State/ZIP Code Phon e Number MUSE SYSTEM (ABNORMAL) POCT Glucose (12/29/2020 9:50 AM EDT) P athologist Signature POC Glucose 262 (H) 65 - 199 [facility] mg/dL [facility] Comment: Supplemental ranges: <140 mg/dL before meals <180 mg/dL all other times of the day Specimen Anatomical Collection Method Collection Time Receive d Time (Source) Location / / Volume Laterality Blood 12/29/2020 9:50 AM 9:50 EDT AM EDT Snehal Dia MD POINT OF CARE TEST ORDERABLE S Performing Organization Address City/State/ZIP Code Phon e Number [place] [id number] documented in this encounter Visit Diagnoses Diagnosis Screening for cardiovascular condition Screening for other and unspecified card iovascular conditions Coronary artery disease, unspecified ves danielle or lesion type, unspecified whether angina present, unspecified whether octavio ve or transplanted heart Chest discomfort Other chest pain Screening for cardiovascular condition Screening for other and unspecified card iovascular conditions Coronary artery disease, unspecified ves danielle or lesion type, unspecified whether angina present, unspecified whether octavio ve or transplanted heart Chest discomfort Other chest pain documented in this encounter Administered Medications Inactive Administered Medications - up to 3 most recent administrations Medication Order MAR Action Action Date Dose Rate Site fentaNYL (pf) (50 mcg/mL) Given 12/29/2020 12:22 PM EDT 25 mcg multi-dose injection ONCE PRN, Starting on Mon12/29/20 at 1222, Until Mon12/29/20 at 1247, Intra-Operative (Intra-Procedure), Routine heparin (porcine) (1,000 units/mL) Given 12/29/2020 12:26 PM EDT 6,000 Units injection ONCE PRN, Starting on Mon12/29/20 at 1226, Until Mon12/29/20 at 1247, Cath (Intra-Procedure), Routine iohexoL (Omnipaque) (350 mg/mL) injection Given 12/29/2020 12:44 PM EDT 75 mLs solution ONCE PRN, Starting on Mon12/29/20 at 1244, Until Mon12/29/20 at 1247, Cath (Intra-Procedure), Routine lidocaine (Xylocaine) 1% (10 mg/mL) injection Given 10:40 AM EDT 3 mg 3 mg 3 mg (0.3 mL), Subcutaneous, ONCE PRN, 1 dose, Starting on Mon12/29/20 at 1004, Until Mon12/29/20 at 1040, with discomfort with PIV insertion, Cath (Day of Procedure), Routine midazolam (pf) (Versed) (1 mg/mL) multi-dose Given 12:22 PM EDT 1 mg injection ONCE PRN, Starting on Mon12/29/20 at 1222, Until Mon12/29/20 at 1247, Cath (Intra-Procedure), Routine nitroGLYcerin 100 mcg/mL intracoronary Given 12/29/2020 12:24 PM EDT 150 mcg dilution ONCE PRN, Starting on Mon12/29/20 at 1224, Until Mon12/29/20 at 1247, Cath (Intra-Procedure), Routine sodium chloride 0.9% infusion New Bag 12/29/2020 10:41 AM EDT 50 mL/hr 50 mL/hr 50 mL/hr, Intravenous, CONTINUOUS, Starting on Mon12/29/20 at 1030, Until Mon12/29/20 at 1229, Cath (Day of Procedure) verapamiL (Isoptin) (2.5 mg/mL) injectio n Given 12/29/2020 12:24 PM EDT 2.5 mg ONCE PRN, Starting on Mon12/29/20 at 1224, Until Mon12/29/20 at 1247, Administer over 2 Minutes, Cath (Intra-Procedure) documented in this encounter Active and Recently Administered Medications Times are shown in EDT. Continuous Medication Order 12/27/2020 12/28/2020 12/29/2020 sodium chloride 0.9% infusion () 1041 (New Bag - Provider: Nathaniel Ulloa RN) 50 mL/hr, Intravenous, CONTINUOUS, Start ing on Mon12/29/20 at 1030, Until Mon12/29/20 at 1229, Cath (Day of Procedure) sodium chloride 0.9% infusion 13 15 (Due) 1 mL/hr, Intravenous, CONTINUOUS, Starti ng on Mon12/29/20 at 1315, Until Mon12/29/20 at 1414, Recovery (Recovery-Hospital Unit) PRN Medication Order 12/27/2020 12/28/2020 12/29/2020 fentaNYL (pf) (50 mcg/mL) multi-dose injection (CANCELED) 1222 (Given - Provider: Molly Escobar, RN) ONCE PRN, Starting on Mon12/29/20 at 12 22, Until Mon12/29/20 at 1247, Intra- Operative (Intra-Procedure), Routine heparin (porcine) (1,000 units/mL) injection (CANCELED) 1226 (Given - Provider: Molly Escobar RN) ONCE PRN, Starting on Mon12/29/20 at 12 26, Until Mon12/29/20 at 1247, Cath (Intra-Procedure), Routine iohexoL (Omnipaque) (350 mg/mL) injection solution (CANCELED) 1244 (Given - Provider: Snehal Dia MD) ONCE PRN, Starting on Mon12/29/20 at 12 44, Until Mon12/29/20 at 1247, Cath (Intra-Procedure), Routine lidocaine (Xylocaine) 1% (10 mg/mL) injection 3 mg (COMPLETED) 1040 (Given - Provider: Nathaniel Ulloa RN) 3 mg (0.3 mL), Subcutaneous, ONCE PRN, 1 dose, Starting on Mon12/29/20 at 1004, Until Discontinued, with discomfort with PIV insertion, Cath (Day of Procedure), Routine midazolam (pf) (Versed) (1 mg/mL) multi-dose injection (CANCELED ) 1222 (Given - Provider: Molly sEcobar RN) ONCE PRN, Starting on Mon12/29/20 at 12 22, Until Mon12/29/20 at 1247, Cath (Intra-Procedure), Routine nitroGLYcerin 100 mcg/mL intracoronary dilution (CANCELED) 1224 (Given - Provider: Yves Fernandez MD) ONCE PRN, Starting on Mon12/29/20 at 12 24, Until Mon12/29/20 at 1247, Cath (Intra-Procedure), Routine verapamiL (Isoptin) (2.5 mg/mL) injection (CANCELED) 1224 (Given - Provider: Yves Fernandez MD) ONCE PRN, Starting on Mon12/29/20 at 12 24, Until Mon12/29/20 at 1247, Administer over 2 Minutes, Cath (Intra-Procedure) documented in this encounter Care Teams Audiology Doctor Relationship Specialty Start Date End Date Robinson Vazquez, ARRESTING GEAR OPERATOR PCP - General Family Medicine 12/11/[address] [place] [address] documented as of this encounter
--- OUTSIDE RECORDS SUMMARY | 2021-12-17 01:01 | XMS_ITS | Encounter Summary ---
:1965 Author Organization [facility] [place] [address] Care Team Providers Name Role Phone Robinson Vazquez APRN Primary Care Provider Encounter Details Date Type Department Care Team Description 01/05/2021 Telephone Gastroenterology at [facility] Ann V[address] [address] Social History Tobacco Use Types Packs/Day Years Used Date Current Every Day Smoker Cigarettes 2 Smokeless Tobacco: Never Used Alcohol Use Standard Drinks/Week Comments Yes 7 (1 standard drink = 0.6 oz pure alcoho l) Alcohol Habits Answer Date Recorded How often do you have a drink containing 4 or more times a w [place] 07/05/2018 alcohol? How many drinks containing alcohol do you have 10 or more 07/05/2018 on a typical day when you are drinking? How often do you have six or more drinks on one Daily or alfredito ost daily 07/05/2018 occasion? Comment: Not asked Sex Assigned at Date Recorded Not on file documented as of this encounter Miscellaneous Notes Telephone Encounter - Ann Vázquez - 01/05/2021 4:53 PM EDT Samy Patricio Jr. [id number] Diagnosis/Indication: dyspepsia, hx of H pylori on PPI - please biopsy for H pylori 1. Have you ever had a/an Upper Endoscopy before? Yes: Date 1.5 years ago [facility] If yes, did you have any problems with the procedure? No What type of sedation was used: Other: unsure 2. Do you take any blood thinners or have you been diagnosed with a bleeding disorder that increasesyour risk of bleeding with procedures? No 3. Do you have a Pacemaker or Defibrillator device? No 4. Are you a diabetic? Yes: Controlled by diet or medication? Both 5. Do you have any Allergies to Eggs, Latex or Medications? Yes: e-dh 6. Do you take any Oral Iron Supplements (Including multi-vitamins)? No 7. Do you have a history of three or more abdominal surgeries? Yes 8. Have you had a problem with sedation or anesthesia? Yes nausea 9. Do you use a c-pap machine or oxygen tank? Neither 10. Do you take prescription narcotic pain medications, including suboxone or methodone? No 11. Do you have a preference regarding the gender of your provider? No Preference 12. Is there any other information you would like to us to note for the provider and nursing team who will perform your case? No 13. Say to patient: You must have a responsible constitution party who will drive you to your procedure, stay on campus for the entire duration of your procedure, and drive you home from your procedure? *Please Verify the height and weight, and adjust if height and/or weight have changed* Estimated body mass index is 40.28 kg/m?? as calculated from the following: Height as of 12/29/20: 182.9 cm (6'). Weight as of 12/29/20: 134.7 kg (297 lb). Age:55 y.o. documented in this encounter Plan of Treatment Upcoming Encounters Date Type Specialty Care Team Description 01/26/2022 Office Visit Ophthalmology Tania Gates , OD [facility] OPHTHALMOLOGY [place], [place] [address] (Wo rk) Scheduled Procedures Name [...] MORSELIZED (WRVU *) MODIFIER K2 MEDICAL - MEDICINE [place] STENOSIS & HNP & MYELOPATHY documented as of this encounter Visit Diagnoses Not on filedocumented in this encounter Care Teams Heel Shaper Relationship Specialty Start Date End Date Robinson Vazquez, TERMITE HELPER PCP - General Family Medicine 12/11/[address] [place] [address] documented as of this encounter
--- OUTSIDE RECORDS SUMMARY | 2021-12-17 01:01 | XMS_ITS | Encounter Summary ---
:1965 Author Organization [facility] [place] [address] Care Team Providers Name Role Phone Sae Marr MD Primary Care Provider Encounter Details Date Type Department Care Team Description 08/06/2019 Notes Only Cardiology at [facility] Antonina Merino MD [facility] [place] [address] CARDIOLOGY DEPT [phone] [place], [place] [address] (Wo rk) Social History Tobacco Use Types Packs/Day Years Used Date Current Every Day Smoker Cigarettes 2 Smokeless Tobacco: Never Used Alcohol Use Standard Drinks/Week Comments Yes 7 (1 standard drink = 0.6 oz pure alcoho l) Alcohol Habits Answer Date Recorded How often do you have a drink containing 4 or more times a w [place] ira 07/05/2018 alcohol? How many drinks containing [...] Office Visit Ophthalmology Tania Gates , OD [facility] OPHTHALMOLOGY [place], [place] [address] (Wo rk) Scheduled Procedures Name [...] MORSELIZED (WRVU *) MODIFIER K2 MEDICAL - [place] STENOSIS & HNP & MYELOPATHY documented as of this encounter Visit Diagnoses Not on filedocumented in this encounter Care Teams Lock Plater Relationship Specialty Start Date End Date Sae Marr MD PCP - General General Internal Medicine 08/06/19 [address] [place] [address] documented as of this encounter
--- OUTSIDE RECORDS SUMMARY | 2021-12-17 01:01 | XMS_ITS | Encounter Summary ---
:1965 Author Organization [facility] Address [facility] [place] [address] Care Team Providers Name Role Phone Robinson Vazquez APRN Primary Care Provider Encounter Details Date Type Department Care Team Description 12/29/2020 Hospital Encounter [facility] Ye[facility] Scr eening for cardiovascular condition; Julián Topete MD Coronary artery disease, unspecified ves danielle or lesion type, unspecified whether angina present, unspecified whether cantwell or transplanted heart; [facility] Chest discomfort [facility] [address] CARDIOLOGY [place], [place] DEPT. [id number] [place], [place] [phone] [address] Social History Tobacco Use Types Packs/Day Years Used Date Current Every Day Smoker Cigarettes 2 Smokeless Tobacco: Never Used Alcohol Use Standard Drinks/Week Comments Yes 7 (1 standard drink = 0.6 oz pure alcoho l) Alcohol Habits Answer Date Recorded How often do you have a drink containing 4 or more times a w [place] 07/05/2018 alcohol? How many drinks containing alcohol [...] Sign Reading Time Taken Comments Blood Pressure 135/86 12/29/2020 2:30 PM EDT Pulse 76 12/29/2020 2:45 PM EDT Temperature 36.7 ??C (98.1 ??F) 12/29/2020 9:46 AM EDT Respiratory Rate 24 12/29/2020 2:45 PM EDT Oxygen Saturation 93% 12/29/2020 2:45 PM EDT Inhaled Oxygen Concentration - - Weight 134.7 kg (297 lb) 12/29/2020 9:46 AM EDT Height 182.9 cm (6') 12/29/2020 9:46 AM EDT Body Mass Index 40.28 12/29/2020 9:46 AM EDT documented in this encounter Discharge Instructions Patient InstructionsYves Fernandez MD - 12/29/2020 12:52 PM EDT Radial [...] Your Primary Care Provider: Sae Marr MD [phone] For questions regarding this document or issues relating to this hospitalization on the Medical Service, please contact your inpatient physician through the [facility] Substation Supervisor . Issues after hours and on weekends will be handled by the Hospitalist staff on-call. documented in this encounter Medications at Time of Discharge Medication Sig Dispensed Refills Start Date End Date OneTouch Verio test strips TEST BLOOD GLUCOSE 0 0 06/23/2020 Strip TWICE A DAY OneTouch Verio Flex meter TEST BLOOD GLUCOSE 0 Misc TWICE A DAY oxcgrswhntf-yvvfnuuyi-bvhq 1 puff inhaled once a 0 nter [...] date: 12/29/2020 Attending Physician: Snehal Dia MD [facility] Interventional Cardiology Adult Pre-Procedure H&P Update: Mr Samy Patricio [id number] 1965 Chief Complaint: Chest discomfort HPI: Samy Patricio Jr. is a 55 y.o. 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 His medical history is notable for coronary disease with nstemi 2017 and RCA/LCx intervention at [facility], then in 2019 STEMI with inferior ecg [...] GERD/ Barretts DM SOCIAL Hx: Lives in [facility] Outpatient Medications Marked as Taking for the 12/29/20 encounter (Hospital Encounter) Medication Sig Dispense Refill ??? xhirqhdiqaw-ltdroblzl-mwpyobhy 100-62.5-25 mcg Disk with Device 1 puff [...] ISABELLE Jackson Interventional Cardiology 12/29/20 10:12 AM [facility] Pager: [phone] documented in this encounter Miscellaneous Notes Brief Op Note - Snehal Dia MD - 12/29/2020 12:52 PM EDT Preliminary Cardiac Catheterization Procedure Note: Patient Name: Samy Patricio Jr. : [id number] MR#: [id number] Case Date: 12/29/2020 Substation Supervisor: Surgeon(s) and Role: * Snehal Dia MD [...] Visit Ophthalmology Tania Gates , OD [facility] [place], [place] [address] (Wo rk) Scheduled Procedures Name [...] & MYELOPATHY MORSELIZED (WRVU *) MODIFIER K2 [facility] STENOSIS & HNP & MYELOPATHY documented as [...] type, unspecified whether angina present, unspecified whether cantwell or transplanted hea rt Chest discomfort POCT [...] type, unspecified whether angina present, unspecified whether cantwell or transplanted hea rt Chest discomfort POCT GLUCOSE Routine 12/29/2020 9:50 Results for this AM EDT procedure are i n the results section. documented in this encounter Results POCT Glucose (01/26/2021 7:22 AM EST) P athologist Signature POC Glucose 143 65 - 199 [facility] Comment: Supplemental ranges: <140 mg/dL before meals <180 mg/dL all other times of the day Specimen Anatomical Collection Method Collection Time Receive d Time (Source) Location / / Volume Laterality Blood 01/26/2021 7:22 AM 7:22 EST AM EST Snehal Dia MD POINT OF CARE TEST ORDERABLE S Performing Organization Address City/State/[place] [address] CARDIAC CATHETERIZATION (12/29/2020 12:50 PM EDT) Anatomical Region Laterality Modality Other Specimen (Source) Anatomical Location Collection Method / Collectio n Time Received Time / Laterality Volume Narrative 12/29/2020 4:24 PM EDT ?[facility] ? Cardiac Cathete rization/Intervention Report ? Patient Name: Schartner, Samy Jr. S. ? Procedure Date: 12/29/2020 ? A #: [id number] ? Primary Physician: Ifeoma, Snehal Joy ? Case #: [id number] ? File Name: [id number] ? Catheterization Order Number: [id number] ? [facility] ?[facility] ? Final Report [place], [place] ? Patient Name: ? Samy sanford ?ID#: ?[id number] ? : ?1965 ? Procedure Date: ? December 29 ? Case #: ? [id number] ? Room: ? 1 ? Case Physician: [...] was designated as ?ASA Class III. The [facility] l frailty scale is 4: Vulnerable. ? Diagnostic Tests: ?Electrocardiography: ? EKG was assessed by ECG. EKG was Abnormal. EKG showed ST Deviation ? >= 0.5 mm. ?Medications Prior to Procedure: ? Aspirin, Beta Alejandra, L mariaelena Acting Nitrate and Statin. ? Indications for Diagnostic Cath: ?The priority of the diagnostic procedure was Elective. 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 Chest pain symptom [...] during these procedures. ?The attending physician was en t for the entire procedure. ?Dr. Snehal [...] Procedure Note Snehal Dia MD - 12/29/2020 [facility] Cardiac Catheterization/Intervention Re port Patient Name: Samy Patricio Jr. Procedure Date: 12/29/2020 A #: [id number] Primary Physician: Snehal Dia Case #: [id number] File Name: [id number] Catheterization Order Number: [id number] [facility] Final Report [place], [place] Patient Name: Samy Patricio ID#: [id number] : 1965 Procedure Date: December 29, 2020 [...] was designated as ASA Class III. The [facility] clinical frailt y scale is 4: Vulnerable. Diagnostic Tests: Electrocardiography: EKG was assessed by ECG. EKG was Abnorm al. EKG showed ST Deviation >= 0.5 mm. Medications Prior to Procedure: Aspirin, Beta Alejandra, Long Acting Nitr ate and Statin. Indications for Diagnostic Cath: The priority of the diagnostic procedur e was Elective. 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 Chest pain symptom [...] POCT Glucose (12/29/2020 12:32 PM EDT) athologist [facility] POC Glucose 152 65 - 199 [facility] mg/dL [facility] Comment: Supplemental ranges: <140 mg/dL before meals <180 mg/dL all other times of the day Specimen Anatomical Collection Method Collection Time Receive d Time (Source) Location / / Volume Laterality Blood 12/29/2020 12:32 12/29/2020 PM EDT 12:32 PM EDT Snehal Dia MD POINT OF CARE TEST ORDERABLE S Performing Organization Address City/State/[place] [address] Differential, Automated (12/29/2020 10:19 AM EDT) athologist [facility] Neutrophils % 63.2 % [facility] Neutr Abs (ANC) 4.73 1.70 - [facility] 6.10 [facility] x10(3)/[facility] LABORATORY Lymphocytes % 25.2 % [facility] Lymphocytes Abs 1.9 0.9 - 3.2 [facility] x10(3)/[facility] LABORATORY Monocytes % 7.7 % [facility] Monocyte Abs 0.6 0.3 - 0.9 [facility] x10(3)/[facility] LABORATORY Eosinophils % 2.5 % [facility] Eosinophils Abs 0.2 0.0 - 0.4 [facility] x10(3)/[facility] LABORATORY Basophils % 0.9 % [facility] Basophils Abs 0.1 0.0 - 0.1 [facility] x10(3)/[facility] LABORATORY Immature Gran % 0.50 % [facility] Comment: Immature granulocytes(IG's)percentage an d absolute count will include metamyelocytes, myelocytes, and promyelo cytes. Blood smears from CBCs yielding IG's will be scanned manually for concor dance. If this scan disagrees with the automated IG or if promyelocytes are not ed, a manual differential will be performed. Julianne Gran Abs 0.04 0.00 - 0.04 x10(3)/[facility] LABORATORY Specimen Anatomical Collection Method Collection Time Receive d Time (Source) Location / / Volume Laterality Blood 12/29/2020 10:19 12/29/2020 AM EDT 10:43 AM EDT Resulting Agency Comment Spec In Lab Royce [facility]TON HEMATOLOGY ORDERABLES Performing Organization Address City/State/Z[place] [address] (ABNORMAL) Hemogram (12/29/2020 10:19 AM EDT) Analysis Performed At Patho logist Time Signature WBC 7.5 4.0 - 9.5 [facility] x10(3)/[facility] LABORATORY RBC 4.53 (L) 4.58 - [facility] 5.54 [facility] x10(6)/[facility] LABORATORY Hemoglobin 14.4 13.7 - [facility] 16.5 g/dL [facility] Hematocrit 42.6 40.5 - [facility] 48.5 % [facility] MCV 94.0 (H) 82.9 - [facility] 93.1 [facility] LABORATORY MCH 31.8 27.5 - [facility] JOHN[facility] 32.1 pg [facility] MCHC 33.8 32.0 - [facility] 35.7 g/dL [facility] Platelets 205 145 - 357 [facility] x10(3)/[facility] LABORATORY RDWSD 42.9 36.0 - [facility] 45.0 [facility] LABORATORY RDWCV 12.4 11.4 - [facility] 13.8 % [facility] MPV 10.0 7.6 - 12.9 [facility] LABORATORY nRBC % Auto 0.0 % [facility] nRBC Abs Auto 0.000 0.000 - [facility] 0.000 [facility] x10(3)/[facility] LABORATORY Specimen Anatomical Collection Method Collection Time Receive d Time (Source) Location / / Volume Laterality Blood 12/29/2020 10:19 12/29/2020 AM EDT 10:43 AM EDT Resulting Agency Comment Spec In Lab Royce [facility] HEMATOLOGY ORDERABLES Performing Organization Address City/State/ZIP [place] [address] (ABNORMAL) BMP w/fasting Glucose (12/29/2020 10:19 AM EDT) athologist Signature Glucose 252 (H) 65 - 99 [facility] Fasting mg/dL [facility] Comment: ?Fasting* Glucose Interpretive C [...] of Diabetes Mellitus, Position Statement from the [place] [employer]. ??Diabete s Care, Volume 33, Supplement 1, Mar 2009 BUN 13 10 - 20 mg/dL [facility] Creatinine 1.09 0.80 - 1.50 mg/dL [facility] Sodium 138 135 - 145 mmol/L [facility] Potassium 4.2 3.5 - 5.0 mmol/L [facility] Comment: Please note: ??Patients with WBC >100,00 0 may have falsely elevated Potassium levels. ??For accurate Potassium quantif ication in these patients send serum separator tube (gold top) for subsequent determinations. ??Contact the Clinical Chemistry Laboratory if there are any qu estions. Chloride 101 98 - 107 mmol/L [facility] CO2 29 22 - 31 mmol/L [facility] Anion Gap 8 5 - 15 mmol/L [facility] Calcium 9.3 8.5 - 10.5 mg/dL [facility] Estimated GFR 77 >=60 mL/min/1.73 m?? [facility] Comment: This patient? s estimated [...] Organization Address City/State/ZIP Code Phon e Number [place] [id number] EKG 12 Lead (12/29/2020 10:18 AM EDT) [facility] gist Method Time Signature Ventricular rate 79 BPM MUSE SYSTEM Atrial Rate 79 BPM MUSE SYSTEM P-R Interval 168 ms MUSE SYSTEM QRS Duration 88 ms MUSE SYSTEM Q-T Interval 374 ms MUSE SYSTEM QTC Calculated 428 ms MUSE SYSTEM (Bezet) Calculated P [place] 60 degrees MUSE SYSTEM Calculated R [place] 56 degrees MUSE SYSTEM Calculated T [place] 39 degrees MUSE SYSTEM INTERPRETATION Normal sinus [...] (ABNORMAL) POCT Glucose (12/29/2020 9:50 AM EDT) athologist Signature POC Glucose 262 (H) 65 - 199 [facility] mg/dL [facility] Comment: Supplemental ranges: <140 mg/dL before meals <180 mg/dL all other times of the day Specimen Anatomical Collection Method Collection Time Receive d Time (Source) Location / / Volume Laterality Blood 12/29/2020 9:50 AM 9:50 EDT AM EDT Snehal Dia MD POINT OF CARE TEST ORDERABLE S Performing Organization Address City/State/[place] [address] documented in this encounter [...] MAR Action Action Date Dose Rate Site lidocaine (Xylocaine) 1% (10 mg/mL) Given 12/29/2020 10:40 AM ED T 3 mg injection 3 mg 3 mg (0.3 mL), Subcutaneous, ONCE PRN, 1 dose, Starting on Mon12/29/20 at 1004, Until Mon12/29/20 at 1040, with discomfort with PIV insertion, Cath (Day of Procedure), Routine sodium chloride 0.9% infusion New Bag 12/29/2020 10:41 AM EDT 50 mL/hr 50 mL/hr 50 mL/hr, Intravenous, CONTINUOUS, Starting on Mon12/29/20 at 1030, Until Mon12/29/20 at 1229, Cath (Day of Procedure) documented in this encounter Active and Recently Administered Medications Times are shown in EDT. Continuous Medication Order 12/27/2020 12/28/2020 12/29/2020 sodium chloride 0.9% infusion () 1041 (New Bag - Provider: Nathaniel Ulloa, RN) 50 mL/hr, Intravenous, CONTINUOUS, Start ing on Mon12/29/20 at 1030, Until Mon12/29/20 at 1229, Cath (Day of Procedure) sodium chloride 0.9% infusion 13 15 (Due) 1 mL/hr, Intravenous, CONTINUOUS, Starti ng on Mon12/29/20 at 1315, Until Mon12/29/20 at 1414, Recovery (Recovery-Hospital Unit) PRN Medication Order 12/27/2020 12/28/2020 12/29/2020 fentaNYL (pf) (50 mcg/mL) multi-dose injection (CANCELED) 1222 (Given - Provider: Molly Escobar RN) ONCE [...] (CANCELED ) 1222 (Given - Provider: Molly Escobar RN) ONCE [...] (Intra-Procedure) documented in this encounter Care Teams Knife Edger Relationship Specialty Start Date End Date Robinson Vazquez, INTERIOR SYSTEMS CARPENTER PCP - General Family Medicine 12/11/[address] [place] [address] documented as of this encounter
--- OUTSIDE RECORDS SUMMARY | 2021-12-17 01:01 | XMS_ITS | Encounter Summary ---
:1965 Author Organization [facility] [place] [address] Care Team Providers Name Role Phone Robinson Vazquez APRN Primary Care Provider Reason for Visit Reason Onset Date Comments Reminder Appointment 12/28/2020 Encounter Details Date Type Department Care Team Description 12/28/2020 Telephone Gastroenterology at [facility] Reyna, Reminder Appointment [facility] [place] [phone] Social History Tobacco Use Types Packs/Day Years Used Date Current Every Day Smoker Cigarettes 2 Smokeless Tobacco: Never Used Alcohol Use Standard Drinks/Week Comments Yes 7 (1 standard drink = 0.6 oz pure alcoho l) Alcohol Habits Answer Date Recorded How often do you have a drink containing 4 or more times a w ak chin 07/05/2018 alcohol? How many drinks containing alcohol do you have 10 or more 07/05/2018 on a typical day when you are drinking? How often do you have six or more drinks on one Daily or alfredito ost daily 07/05/2018 occasion? Comment: Not asked Sex Assigned at Date Recorded Not on file documented as of this encounter Miscellaneous Notes Telephone Encounter - Gerda Orellana LNA - 12/28/2020 7:51 AM EDT Called patient to review medications and allergies for their upcoming gastroenterology Type of Appointment: Telehealth appointment. Reach Patient during MA Check: Yes Notes for the provider: Notes for the nurse: documented in this encounter Plan of Treatment Upcoming Encounters Date Type Specialty Care Team Description 01/26/2022 Office Visit Ophthalmology KodyTania , OD [facility] [place], [place] [address] (Wo rk) Scheduled Procedures Name [...] MORSELIZED (WRVU *) MODIFIER K2 [facility] [place] STENOSIS & HNP & MYELOPATHY documented as of this encounter Visit Diagnoses Not on filedocumented in this encounter Care Teams Ton Container Filler Relationship Specialty Start Date End Date Robinson Vazquez, LEADERSHIP DEVELOPMENT INSTRUCTOR PCP - General Family Medicine 12/11/[address] [place] [address] documented as of this encounter
--- OUTSIDE RECORDS SUMMARY | 2021-12-17 01:02 | XMS_ITS | Encounter Summary ---
:1965 Author Organization [facility] [place] [address] Care Team Providers Name Role Phone Sae Marr MD Primary Care Provider Reason for Visit Reason Comments Hospital Transfer Chest Pain Auth/Cert Specialty Diagnoses / Procedures Referred By Contact Refer red To Contact Diagnoses STEMI (ST elevation myocardial infarction) ST elevation myocardial infarction (STEMI), unspecified artery STEMI Referral ID Status Reason Start Date Expiration Date Visits Requ ested Visits Authorized [id number] 1 1 Encounter Details Date Type Department Care Team Description 08/06/2019 Surgery [employer] Sales Consultant Eileen [place] CARDIAC CATHETERIZATION [facility] MD Casimiro [facility] [place] [address] CARDIOLOGY DEPT [phone] [place], [place] [address] (Wo rk) Social History Tobacco Use Types Packs/Day Years Used Date Current Every Day Smoker Cigarettes 1 Smokeless Tobacco: Never Used Alcohol Use Standard Drinks/Week Comments Yes 7 (1 standard drink = 0.6 oz pure alcoho l) Alcohol Habits Answer Date Recorded How often do you have a drink containing 4 or more times a w [place] 07/05/2018 alcohol? How many drinks containing alcohol [...] Sign Reading Time Taken Comments Blood Pressure 118/66 08/06/2019 2:15 AM EDT Pulse 86 08/06/2019 2:15 AM EDT Temperature - - Respiratory Rate 19 08/06/2019 2:15 AM EDT Oxygen Saturation 100% 08/06/2019 2:15 AM EDT Inhaled Oxygen Concentration - - Weight - - Height - - Body Mass Index - - documented in this encounter Discharge Summaries Drew Damon MD - 08/07/2019 5:42 PM EDT Cardiology - Discharge Summary Patient Name: Samy Patricio Jr. Patient Age: 53 y.o. Birthdate: 1965 Admit date: 08/06/2019 Discharge date and time: 08/07/2019 Attending Physician: Tariq Guerrero MD Follow-up Recommendations for Providers: 1. PRIMARY CARE - SAE MARR MD, August - [[phone]] - Please follow up with patient regarding his recent hospitalization for Inferior STEMI, s/p EDEN to RCA. - Please assess when appropriate to initiate Lisinopril; recommend BMP in the next 5-7 days to ensure that renal function is stable. - Please continue to pastoral counselor regarding smoking cessation; he has been [...] Nicotine Patch. - LVEDP was 21 on C - [...] compared to ticagrelor or plavix, reducing stroke, [place] and (NEJM 2019). ?? Give plavix 75 [...] prompted his to call 911. Per the lace machine operator's instructions he took SLN x3, but did not experience any relief of symptoms. ?? EMS arrived and noted his heart rate to be in the 30s with blood pressures 60s/30s. He was transcutaneously paced en route to [facility]. EKG at [facility] showed STEs in the [...] epinephrine. ?? He was transferred to the [facility] ED for evaluation. On arrival to [facility] he had continued chest pain, but his EKG changes had resolved. He was on 1.5 of epi with heart rates in the 80s and blood pressures in the 110s/50s. He was taken immediately to the environmental laboratory technician where he had a EDEN placed to his proximal RCA. He was weaned off of epinephrine in the environmental laboratory technician and transferred to the CSCU. ?? In [...] # Hx of ASCVD [s/p NSTEMI - 2018, EDEN to RCA & LCX; LVEDP: 21] [...] DILATION AND TEST, RAMIRO; TECHRAMIRO Ophthalmology at [facility] Arrive at: Vascular Surgery Physician Area 4B [phone] Future Orders Complete By Expires Referral to Cardiac Rehab [[id number] Custom] As directed Process Instructions: If no progress note charted, please enter Clinical details in comments. Scheduling Instructions: Questions: My question or request is: STEMI. Cardiac rehab at [facility]. Referral to Cardiology [REF12 [...] appointments: During 8am-5pm Monday through Monday call [phone] to speak with a nurse in the cardiology clinic All other times call [phone] and ask to speak to the cardiology rn refrigeration service technician. Activity level: - No heavy lifting (more [...] Department Center 02/11/2020 8:40 AM Tania Gates, ELIZABETH [facility] OPHT 4B [facility] Follow-Up Appointments Date and Time Provider and Specialty Location August 18 8:40am [facility]EE [facility] September 04 YULIYA GTZ MD [place], [place] Building Superintendent: Yuliya Gtz MD at [phone] PCP: Sae Marr MD at [phone] Your Primary Care Provider: Sae Marr MD [address] [place] [phone] For questions regarding issues relating to your hospitalization on the Hospital Medicine Service, please contact your inpatient physician through the [facility] Workplace Rehabilitation Officer [phone]. Issues after hours and on weekends will be handled by the Hospitalist staff on-call. For questions regarding this document or issues relating to this hospitalization on the Medical Service, please contact your inpatient physician through the [facility] Workplace Rehabilitation Officer . Issues after hours and on weekends will be handled by the Building Superintendent staff on-call. documented in this encounter Discharge [...] Health and Human Services, July 2007 Patient InstructionsDrew Damon MD - 08/07/2019 11:57 AM EDT Patient [...] appointments: During 8am-5pm Monday through Monday call [phone] to speak with a nurse in the cardiology clinic All other times call [phone] and ask to speak to the cardiology rn refrigeration service technician. Activity level: - No heavy lifting (more [...] Center 02/11/2020 8:40 AM Tania Gates, OD [facility] OPHT 4B [facility] Follow-Up Appointments Date and Time Provider and Specialty Location August 18 8:40am [facility]EE [facility] [facility] September 04 YULIYA GTZ MD [place], [place] Building Superintendent: Yuliya Gtz MD at [phone] PCP: Sae Marr MD at [phone] Your Primary Care Provider: Sea Marr MD [address] [place] [phone] For questions regarding issues relating to your hospitalization on the Hospital Medicine Service, please contact your inpatient physician through the [facility] Workplace Rehabilitation Officer [phone]. Issues after hours and on weekends will be handled by the Hospitalist staff on-call. AttachmentsThe following attachments cannot be sent through Care Everywhere. Smoking: Stopping (Moroccan)Smoking: Anti-Smoking Medication: Deciding About (Moroccan)Smoking Cessation: Health Benefits: General Info (Moroccan)Cardiac Rehabilitation (Moroccan)Heart Attack: Medicine for Secondary Prevention (Moroccan)PCI (Percutaneous Coronary Intervention): Post-op (Moroccan)documented in this encounter Medications at Time of [...] - S/P TNK prior to transfer to [facility] - S/P Prasugrel & ASA load followed by maintenance ASA 81 mg & Prasugrel 10 mg - LVEDP 21 in the Bmw Sales Consultant - Prior to Cardiac Catheterization, noted to [...] there is no significant change. Assessment: Samy Patricio Jr. is a 53 y.o. [...] was high. - F/u with PCP for roasterman DM control. 3. COPD - Duoneb q4h [...] diuretic. Drew Damon MD 08/07/2019 Cardiology S2, 3341 Associated attestation - Tariq Guerrero MD - [...] PCP: Sae Marr MD PCP phone #: [phone] ID/Chief Complaint: Inferior STEMI History of Present [...] prompted his to call 911. Per the lace machine operator's instructions he took SLN x3, but did not experience any relief of symptoms. EMS arrived and noted his heart rate to be in the 30s with blood pressures 60s/30s. He was transcutaneously paced en route to [facility]. EKG at [facility] showed STEs in the [...] to epinephrine. He was transferred to the [facility] ED for evaluation. On arrival to [facility] he had continued chest pain, but his EKG changes had resolved. He was on 1.5 of epi with heart rates in the 80s and blood pressures in the 110s/50s. He was taken immediately to the environmental laboratory technician where he had a EDEN placed to his proximal RCA. He was weaned off of epinephrine in the environmental laboratory technician and transferred to the CSCU. In the [...] daily. ??? lancets 33 gauge Misc Lancets MISC USE DIRECTED. Active ??? 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 Invalid input(s): [id number] Heme: No results for input(s): LDH, HAPTOGLOBIN, URICACID in the last 168 hours. Microbiology: None Diagnostic Studies: EKG- NSR resolved STEs CXR- pending TTE: 2018 EF 55-60% normal RV and Valves ASSESSMENT: [...] Admit to Cardiology, S2 Team Pager # [phone] #CAD #inferior STEMI - s/p asa 324 [...] cardiology and will be rushed to the [employer]mw Sales Consultant. Review of Systems: Review of Systems Constitutional: [...] by cardiology and was rushed to the [employer] Sales Consultant. No infectious symptoms concerning for COVID. Mendoza Richards MD Resident 08/06/19 5259 Associated attestation - Tiffanie Espino MD - [...] in the outpatient cardiac rehabilitation program at [facility] was discussed. 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 No problem w/ADL's Living Situation: lives w/spouse in a single level w/3STE and also has a camp w/2STE Physical Address [address] [place] [address] [place] [address] Supports: Lives w/ and izeyuy-fp-rpt who are both supportive. Also has friends [...] home via car w/ when medically ready. bead maker/Case Filler will continue to follow patient???s progress and remain available if situation changes for coordination of care, psychosocial support and/or discharge planning. Kareen Samayoa RN Pager [phone] [phone] Plan of Care - Natalia Renee RN [...] additional questions or concerns. Thank you. Bryn Guevara, MSN, RN-, [facility] Tobacco Canteen Manager [facility] Pager #[phone] Plan of Care - Daniel Sands RN [...] Merino MD - 08/06/2019 3:50 AM EDT [facility] Operative Note Patient Name: Samy Patricio Jr. : [id number] MR#: [id number] Case Date: 08/06/2019 Surgeon: Surgeon(s) and Role: [...] compared to ticagrelor or plavix, reducing stroke, [place] and (NEJM 2019). Give plavix 75 mg [...] JUNG MERINO MD ED Triage - Candace Zhao, RN - 08/06/2019 2:03 AM EDT Patient arrived via EMS from OSH for [facility] environmental laboratory technician. 3PM patient started to have chest pain continued to get worse. Took 3 SL nitro at home and EMS was called. documented in this encounter Plan of Treatment Upcoming Encounters Date Type Specialty Care Team Description 01/26/2022 Office Visit Ophthalmology Tania Gates , OD [facility] OPHTHALMOLOGY [place], [place] [address] (Wo rk) Scheduled Orders Name [...] MORSELIZED (WRVU *) MODIFIER K2 MEDICAL - [place] STENOSIS & HNP & MYELOPATHY Scheduled Referrals [...] POC Glucose 286 (H) 65 - 199 [facility] mg/dL [facility] Comment: Supplemental ranges: <140 mg/dL before meals <180 mg/dL all other times of the day Specimen Anatomical Collection Method Collection Time Receive d Time (Source) Location / / Volume Laterality Blood specimen 08/07/2019 4:53 PM 020 4:53 (specimen) EDT PM EDT Tariq Guerrero MD POINT OF CARE TEST ORDERABLE S Performing Organization Address City/State/[place] [address] POCT Glucose (08/07/2019 1:55 PM EDT) athologist Signature POC Glucose 178 65 - 199 [facility] mg/dL [facility] Comment: Supplemental ranges: <140 mg/dL before meals <180 mg/dL all other times of the day Specimen Anatomical Collection Method Collection Time Receive d Time (Source) Location / / Volume Laterality Blood specimen 08/07/2019 1:55 PM 020 1:55 (specimen) EDT PM EDT Tariq Guerrero MD POINT OF CARE TEST ORDERABLE S Performing Organization Address City/State/[place] [address] CK (08/07/2019 12:05 PM EDT) P athologist Signature CK, Total 133 0 - 200 [facility] unit/L [facility] Specimen Anatomical Collection Method Collection Time Receive d Time (Source) Location / / Volume Laterality Blood specimen 08/07/2019 12:05 0 (specimen) PM EDT 12:20 PM EDT Resulting Agency Comment Spec In Lab Tariq Guerrero MD CHEMISTRY ORDERABLES Performing Organization Address City/[facility]/[place]IP [place] [address] (ABNORMAL) POCT Glucose (08/07/2019 11:20 AM EDT) athologist Signature POC Glucose 309 (H) 65 - 199 [facility] mg/dL [facility] Comment: Supplemental ranges: <140 mg/dL before meals <180 mg/dL all other times of the day Specimen Anatomical Collection Method Collection Time Receive d Time (Source) Location / / Volume Laterality Blood specimen 08/07/2019 11:20 0 (specimen) AM EDT 11:20 AM EDT Tariq Guerrero MD POINT OF CARE TEST ORDERABLE S Performing Organization Address City/[facility]/[place] [address] EKG 12 Lead (08/07/2019 8:57 AM EDT) Component Value Ref Range Test Analysis Performed Pathologis t Method Time At Signature Ventricular rate 75 BPM MUSE SYSTEM Atrial Rate 75 BPM MUSE SYSTEM P-R Interval 176 ms MUSE SYSTEM QRS Duration 94 ms MUSE SYSTEM Q-T Interval 390 ms MUSE SYSTEM QTC Calculated 435 ms MUSE SYSTEM (Bezet) Calculated P [place] 67 degrees MUSE SYSTEM Calculated R [place] 47 degrees MUSE SYSTEM Calculated T [place] -5 degrees MUSE SYSTEM INTERPRETATION Normal sinus rhythm MUSE SYSTEM T wave abnormality, consider inferior ischemia Abnormal ECG When compared with ECG of 06-AUG-2019 20:18, (unconfirmed) No significant change was found Confirmed by MD Yaima, Timothy Collins ([id number]) on 08/07/2019 5 :14:03 PM Specimen Anatomical Collection Method Collection Time Receive d Time (Source) Location / / Volume Laterality 08/07/2019 8:57 AM 0 5:14 EDT PM EDT Tiffanie Espino MD ECG ORDERABLES Performing Organization Address City/State/ZIP Code Phon e Number MUSE SYSTEM POCT Glucose (08/07/2019 7:23 AM EDT) [facility] POC Glucose 160 65 - 199 [facility] Comment: Supplemental ranges: <140 mg/dL before meals <180 mg/dL all other times of the day Specimen Anatomical Collection Method Collection Time Receive d Time (Source) Location / / Volume Laterality Blood specimen 08/07/2019 7:23 AM 020 7:23 (specimen) EDT AM EDT Tariq Guerrero MD POINT OF CARE TEST ORDERABLE S Performing Organization Address City/[facility]/[place] [address] CK (08/07/2019 5:53 AM EDT) [facility] CK, Total 168 0 - 200 [facility] unit/L [facility] Specimen Anatomical Collection Method Collection Time Receive d Time (Source) Location / / Volume Laterality Blood specimen Venous Draw / 08/07/2019 5:53 AM 2019 6:07 (specimen) Unknown EDT AM EDT Resulting Agency Comment Spec In Lab Philip Johnson MD CHEMISTRY ORDERABLES Performing Organization Address City/State/[place] [address] (ABNORMAL) Troponin (08/07/2019 5:53 AM EDT) athologist [facility] Troponin-T 0.50 (H) 0.00 - EILEEN JOHNNA 0.00 ng/mL [facility] Comment: The 99th percentile for Troponin T is le ss than 0.01 ng/mL, any detectable cTnT concentration using this assay should be considered elevated. According to the third universal definit ion of myocardial infarction the following criteria with a clinical prese ntation consistent with acute myocardial ischemia meets the diagnosis for a myocardial infarction ([place]). Detection of a rise and/or fall of [...] additional sample may be indicated. Reference: Third Artesian Definition of Myocardial Infarction. Journal of the [place] College of Cardiology 2012;60:1581-98 Specimen Anatomical Collection Method Collection Time Receive d Time (Source) Location / / Volume Laterality Blood specimen 08/07/2019 5:53 AM 020 5:59 (specimen) EDT AM EDT Resulting Agency Comment Spec In Lab Tariq Guerrero MD CHEMISTRY ORDERABLES Performing Organization Address City/State/ZIP Code Phon e Number [place] [id number] Differential, Automated (08/07/2019 5:53 AM EDT) P athologist Signature Neutrophils % 59.8 % [facility] Neutr Abs (ANC) 4.63 1.70 - [facility] 6.10 [facility] x10(3)/[facility] LABORATORY Lymphocytes % 24.9 % [facility] Lymphocytes Abs 1.9 0.9 - 3.2 [facility] x10(3)/[facility] LABORATORY Monocytes % 8.5 % [facility] Monocyte Abs 0.7 0.3 - 0.9 [facility] x10(3)/[facility] LABORATORY Eosinophils % 5.8 % [facility] Eosinophils Abs 0.4 0.0 - 0.4 [facility] x10(3)/[facility] LAB[facility] Basophils % 0.5 % [facility] Basophils Abs 0.0 0.0 - 0.1 [facility] x10(3)/[facility] LABORATORY Immature Gran % 0.50 % [facility] Comment: Immature granulocytes(IG's)percentage an d absolute count will include metamyelocytes, myelocytes, and promyelo cytes. Blood smears from CBCs yielding IG's will be scanned manually for concor dance. If this scan disagrees with the automated IG or if promyelocytes are not ed, a manual differential will be performed. Julianne Gran Abs 0.04 0.00 - 0.04 x10(3)/[facility] Specimen Anatomical Collection Method Collection Time Receive d Time (Source) Location / / Volume Laterality Blood specimen 08/07/2019 5:53 AM 020 5:59 (specimen) EDT AM EDT Resulting Agency Comment Spec In Lab Lovely Moise MD HEMATOLOGY ORDERABLES Performing Organization Address City/State/[place] [address] Hemogram (08/07/2019 5:53 AM EDT) P athologist Signature WBC 7.8 4.0 - 9.5 [facility] RBC 4.71 4.58 - EILEEN JOHNNA 5.54 [facility] x10(6)/[facility] LABORATORY Hemoglobin 14.5 13.7 - [facility] 16.5 gm/dL [facility] Hematocrit 43.0 40.5 - [facility] JOHNNA 48.5 % [facility] MCV 91.3 82.9 - [facility] JOHNNA 93.1 [facility] LABORATORY MCH 30.8 27.5 - EILEEN JOHNNA 32.1 pg [facility] MCHC 33.7 32.0 - [facility] 35.7 gm/dL [facility] Platelets 181 145 - 357 [facility] x10(3)/[facility] LABORATORY RDWSD 44.3 36.0 - [facility] JOHNNA 45.0 [facility] RDWCV 13.1 11.4 - EILEEN OROPEZA 13.8 % [facility] MPV 9.6 7.6 - 12.9 EILEEN OROPEZA [facility] LABORATORY nRBC % Auto 0.0 % [facility] nRBC Abs Auto 0.000 0.000 - EILEEN OROPEZA 0.000 [facility] x10(3)/[facility] LABORATORY Specimen Anatomical Collection Method Collection Time Receive d Time (Source) Location / / Volume Laterality Blood specimen 08/07/2019 5:53 AM 020 5:59 (specimen) EDT AM EDT Resulting Agency Comment Spec In Lab Lovely Moise MD HEMATOLOGY ORDERABLES Performing Organization Address City/State/ZIP Code Phon e Number [address] Magnesium (08/07/2019 5:53 AM EDT) P athologist Signature Magnesium 0.86 0.69 - 1.07 [facility] mmol/L [facility] Specimen Anatomical Collection Method Collection Time Receive d Time (Source) Location / / Volume Laterality Blood specimen 08/07/2019 5:53 AM 020 5:59 (specimen) EDT AM EDT Resulting Agency Comment Spec In Lab Tariq Guerrero MD CHEMISTRY ORDERABLES Performing Organization Address City/State/ZIP Code Phon e Number [address] (ABNORMAL) BMP w/fasting Glucose (08/07/2019 5:53 AM EDT) P athologist Signature Glucose 152 (H) 65 - 99 [facility] Fasting mg/dL [facility] Comment: ?Fasting* Glucose Interpretive C riteria Normal ?65-99 mg/dL Impaired Fasting glucose ?100-125 mg/dL Consistent with Diabetes Mellitus ? >or= 126 mg/dL *Fasting is defined as no caloric intake for at least 8 hours In the absence of unequivocal hypergly cemia a plasma glucose value of >or= 126 mg/dL should be repeated on a subseq u day. Diagnosis and Classification of Diabetes Mellitus, Position Statement from the [place] Diabetes Association. ??Diabete s Care, Volume 33, Supplement 1, Mar 2009 BUN 14 10 - 20 mg/dL [facility] Creatinine 1.43 0.80 - 1.50 mg/dL [facility] Sodium 141 135 - 145 mmol/L [facility] Potassium 4.1 3.5 - 5.0 mmol/L [facility] Comment: Please note: ??Patients with WBC >100,00 0 may have falsely elevated Potassium levels. ??For accurate Potassium quantif ication in these patients send serum separator tube (gold top) for subsequent determinations. ??Contact the Clinical Chemistry Laboratory if there are any qu estions. Chloride 100 98 - 107 mmol/L [facility] CO2 30 22 - 31 mmol/L [facility] Anion Gap 11 5 - 15 mmol/L [facility] Calcium 8.9 8.5 - 10.5 mg/dL [facility] Estimated GFR 56 (L) >=60 mL/min/1.73 m?? [facility] Comment: The eGFR was calculated using the CKD-EP I equation. As with all creatinine based estimates of kidney function, eGFR values calculated with the CKD-EPI equation are not accurate in patients wi th acute kidney failure, extremes of body mass or the acutely ill. http://[employer]/[facility] eGFR 65 >=60 mL/min/1.73 m?? [facility] Comment: The eGFR was calculated using the CKD-EP I equation. As with all creatinine based estimates of kidney function, eGFR values calculated with the CKD-EPI equation are not accurate in patients wi th acute kidney failure, extremes of body mass or the acutely ill. http://[employer]/[facility] Specimen Anatomical Collection Method Collection Time Receive d Time (Source) Location / / Volume Laterality Blood specimen 08/07/2019 5:53 AM 020 5:59 (specimen) EDT AM EDT Resulting Agency Comment Spec In Lab Tariq Guerrero MD CHEMISTRY ORDERABLES Performing Organization Address City/State/Z[place] [address] POCT Glucose (08/07/2019 4:16 AM EDT) athologist Signature POC Glucose 120 65 - 199 [facility] mg[facility] Comment: Supplemental ranges: <140 mg/dL before meals <180 mg/dL all other times of the day Specimen Anatomical Collection Method Collection Time Receive d Time (Source) Location / / Volume Laterality Blood specimen 08/07/2019 4:16 AM 020 4:16 (specimen) EDT AM EDT Tariq Guerrero MD POINT OF CARE TEST ORDERABLE S Performing Organization Address City/[facility]/[place]IP [place] [address] (ABNORMAL) CK (08/07/2019 12:28 AM EDT) athologist [facility] CK, Total 220 (H) 0 - 200 [facility] unit/L [facility] LABORATORY Specimen Anatomical Collection Method Collection Time Receive d Time (Source) Location / / Volume Laterality Blood specimen 08/07/2019 12:28 0 (specimen) AM EDT 12:37 AM EDT Resulting Agency Comment Spec In Lab Tariq Guerrero MD CHEMISTRY ORDERABLES Performing Organization Address City/[facility]/[place]IP [place] [address] (ABNORMAL) Troponin (08/07/2019 12:28 AM EDT) athologist Signature Troponin-T 0.62 (H) 0.00 - EILEEN JOHNNA 0.00 ng/mL [facility] LABORATORY Comment: The 99th percentile for Troponin T is le ss than 0.01 ng/mL, any detectable cTnT concentration using this assay should be considered elevated. According to the third universal definit ion of myocardial infarction the following criteria with a clinical prese ntation consistent with acute myocardial ischemia meets the diagnosis for a myocardial infarction ([place]). Detection of a rise and/or fall of [...] additional sample may be indicated. Reference: Third Artesian Definition of Myocardial Infarction. Journal of the [place] [employer] 2012;60:1581-98 Specimen Anatomical Collection Method Collection Time Receive d Time (Source) Location / / Volume Laterality Blood specimen 08/07/2019 12:28 0 (specimen) AM EDT 12:37 AM EDT Resulting Agency Comment Spec In Lab Tariq Guerrero MD CHEMISTRY ORDERABLES Performing Organization Address City/State/[place] [address] (ABNORMAL) POCT Glucose (08/06/2019 11:26 PM EDT) P athologist Signature POC Glucose 216 (H) 65 - 199 [facility] mg/dL [facility] LABORATORY Comment: Supplemental ranges: <140 mg/dL before meals <180 mg/dL all other times of the day Specimen Anatomical Collection Method Collection Time Receive d Time (Source) Location / / Volume Laterality Blood specimen 08/06/2019 11:26 0 (specimen) PM EDT 11:26 PM EDT Tariq Guerrero MD POINT OF CARE TEST ORDERABLE S Performing Organization Address City/[facility]/[place] [address] EKG 12 Lead (08/06/2019 8:18 PM EDT) Component Value Ref Range Test Analysis Performed Pathologis t Method Time At Signature Ventricular rate 81 BPM MUSE SYSTEM Atrial Rate 81 BPM MUSE SYSTEM P-R Interval 178 ms MUSE SYSTEM QRS Duration 96 ms MUSE SYSTEM Q-T Interval 368 ms MUSE SYSTEM QTC Calculated 427 ms MUSE SYSTEM (Bezet) Calculated P [place] 64 degrees MUSE SYSTEM Calculated R [place] 52 degrees MUSE SYSTEM Calculated T [place] 3 degrees MUSE SYSTEM INTERPRETATION Normal sinus rhythm MUSE SYSTEM Normal ECG When compared with ECG of 06-AUG-2019 06:13, (unconfirmed) No significant change was found Confirmed by MD Yaima, Timothy Collins ([id number]) on 08/07/2019 4 :51:03 PM Specimen Anatomical Collection Method Collection Time Receive d Time (Source) Location / / Volume Laterality 08/06/2019 8:18 PM 0 4:51 EDT PM EDT Tariq Guerrero MD ECG ORDERABLES Performing Organization Address City/[facility]/ZIP Code Phon e Number MUSE SYSTEM POCT Glucose (08/06/2019 7:59 PM EDT) athologist Signature POC Glucose 193 65 - 199 [facility] mg/dL [facility] LABORATORY Comment: Supplemental ranges: <140 mg/dL before meals <180 mg/dL all other times of the day Specimen Anatomical Collection Method Collection Time Receive d Time (Source) Location / / Volume Laterality Blood specimen 08/06/2019 7:59 PM 020 7:59 (specimen) EDT PM EDT Tariq Guerrero MD POINT OF CARE TEST ORDERABLE S Performing Organization Address [facility]/[place]IP [place] [address] (ABNORMAL) CK (08/06/2019 6:13 PM EDT) athologist Signature CK, Total 301 (H) 0 - 200 [facility] unit/L [facility] LABORATORY Specimen Anatomical Collection Method Collection Time Receive d Time (Source) Location / / Volume Laterality Blood specimen 08/06/2019 6:13 PM 020 7:04 (specimen) EDT PM EDT Resulting Agency Comment Spec In Lab Tariq Guerrero MD CHEMISTRY ORDERABLES Performing Organization Address City/[facility]/ZIP [facility] [place] [address] (ABNORMAL) Troponin (08/06/2019 6:13 PM EDT) athologist Signature Troponin-T 0.84 (H) 0.00 - EILEEN OROPEZA 0.00 ng/mL [facility] LABORATORY Comment: The 99th percentile for Troponin T is le ss than 0.01 ng/mL, any detectable cTnT concentration using this assay should be considered elevated. According to the third universal definit ion of myocardial infarction the following criteria with a clinical prese ntation consistent with acute myocardial ischemia meets the diagnosis for a myocardial infarction ([place]). Detection of a rise and/or fall of [...] additional sample may be indicated. Reference: Third Artesian Definition of Myocardial Infarction. Journal of the [place] College [employer]iology 2012;60:1581-98 Specimen Anatomical Collection Method Collection Time Receive d Time (Source) Location / / Volume Laterality Blood specimen 08/06/2019 6:13 PM 020 7:04 (specimen) EDT PM EDT Resulting Agency Comment Spec In Lab Tariq Guerrero MD CHEMISTRY ORDERABLES Performing Organization Address City/State/[place] [address] POCT Glucose (08/06/2019 4:18 PM EDT) athologist Signature POC Glucose 105 65 - 199 [facility] JOHNNA mg/dL [facility] LABORATORY Comment: Supplemental ranges: <140 mg/dL before meals <180 mg/dL all other times of the day Specimen Anatomical Collection Method Collection Time Receive d Time (Source) Location / / Volume Laterality Blood specimen 08/06/2019 4:18 PM 020 4:18 (specimen) EDT PM EDT Tariq Guerrero MD POINT OF CARE TEST ORDERABLE S Performing Organization Address City/State/ZIP Code Phon e Number [address] Magnesium (08/06/2019 2:06 PM EDT) athologist Signature Magnesium 0.82 0.69 - 1.07 [facility] mmol/L [facility] LABORATORY Specimen Anatomical Collection Method Collection Time Receive d Time (Source) Location / / Volume Laterality Blood specimen 08/06/2019 2:06 PM 020 2:18 (specimen) EDT PM EDT Resulting Agency Comment Spec In Lab Tariq Guerrero MD CHEMISTRY ORDERABLES Performing Organization Address City/[facility]/ZIP Code Phon e Number [address] Basic Metabolic Panel (non-fasting) (08/06/2019 2:06 PM EDT) athologist Signature Glucose Lvl 108 65 - 199 [facility] mg/dL [facility] LABORATORY Comment: Diabetes: >=200 mg/dL plus symp toms BUN 12 10 - 20 mg/dL [facility] LABORATORY Creatinine 1.23 0.80 - 1.50 mg/dL [facility] LABORATORY Sodium 140 135 - 145 mmol/L [facility] LABORATORY Potassium 4.4 3.5 - 5.0 mmol/L [facility] LABORATORY Comment: Please note: ??Patients with WBC >100,00 0 may have falsely elevated Potassium levels. ??For accurate Potassium quantif ication in these patients send serum separator tube (gold top) for subsequent determinations. ??Contact the Clinical Chemistry Laboratory if there are any qu estions. Chloride 101 98 - 107 mmol/L [facility] LABORATORY CO2 26 22 - 31 mmol/L [facility] LABOR[facility] Anion Gap 13 5 - 15 mmol/L [facility] LABORATORY Calcium 9.3 8.5 - 10.5 mg/dL [facility] LABORATORY Estimated GFR 67 >=60 mL/min/1.73 m?? [facility] LABOR[facility] Comment: The eGFR was calculated using the CKD-EP I equation. As with all creatinine based estimates of kidney function, eGFR values calculated with the CKD-EPI equation are not accurate in patients wi th acute kidney failure, extremes of body mass or the acutely ill. http://[employer]/[facility]nkf eGFR 78 >=60 mL/min/1.73 m?? [facility] LABORAT[facility] Comment: The eGFR was calculated using the CKD-EP I equation. As with all creatinine based estimates of kidney function, eGFR values calculated with the CKD-EPI equation are not accurate in patients wi th acute kidney failure, extremes of body mass or the acutely ill. http://[employer]/[facility] CITYnkf Specimen Anatomical Collection Method Collection Time Receive d Time (Source) Location / / Volume Laterality Blood specimen 08/06/2019 2:06 PM 020 2:18 (specimen) EDT PM EDT Resulting Agency Comment Spec In Lab Tariq Guerrero MD CHEMISTRY ORDERABLES Performing Organization Address City/[facility]/ZIP Code Phon e Number [address] (ABNORMAL) CK (08/06/2019 12:05 PM EDT) athologist [facility] CK, Total 344 (H) 0 - 200 [facility] unit/L [facility] LABORATORY Specimen Anatomical Collection Method Collection Time Receive d Time (Source) Location / / Volume Laterality Blood specimen 08/06/2019 12:05 0 (specimen) PM EDT 12:15 PM EDT Resulting Agency Comment Spec In Lab Tariq Guerrero MD CHEMISTRY ORDERABLES Performing Organization Address City/[facility] Phon e Number [address] (ABNORMAL) Troponin (08/06/2019 12:05 PM EDT) athologist Signature Troponin-T 0.74 (H) 0.00 - [facility] 0.00 ng/mL [facility] LABORATORY Comment: The 99th percentile for Troponin T is le ss than 0.01 ng/mL, any detectable cTnT concentration using this assay should be considered elevated. According to the third universal definit ion of myocardial infarction the following criteria with a clinical prese ntation consistent with acute myocardial ischemia meets the diagnosis for a myocardial infarction ([place]). Detection of a rise and/or fall of [...] additional sample may be indicated. Reference: Third Artesian Definition of Myocardial Infarction. Journal of the [place] College [employer] 2012;60:1581-98 Specimen Anatomical Collection Method Collection Time Receive d Time (Source) Location / / Volume Laterality Blood specimen 08/06/2019 12:05 0 (specimen) PM EDT 12:15 PM EDT Resulting Agency Comment Spec In Lab Tariq Guerrero MD CHEMISTRY ORDERABLES Performing Organization Address City/State/ZIP Code Phon e Number [address] POCT Glucose (08/06/2019 11:13 AM EDT) P athologist Signature POC Glucose 106 65 - 199 [facility] mg/dL [facility] LABORATORY Comment: Supplemental ranges: <140 mg/dL before meals <180 mg/dL all other times of the day Specimen Anatomical Collection Method Collection Time Receive d Time (Source) Location / / Volume Laterality Blood specimen 08/06/2019 11:13 0 (specimen) AM EDT 11:13 AM EDT Tariq Guerrero MD POINT OF CARE TEST ORDERABLE S Performing Organization Address City/State/[place] [address] ECHOCARDIOGRAM COMPLETE (08/06/2019 9:20 AM EDT) athologist Signature EF 64 [facility] Anatomical Region Laterality Modality Other Specimen (Source) Anatomical Location Collection Method / Collectio n Time Received Time / Laterality Volume 08/06/2019 Narrative 08/06/2019 9:40 AM EDT Procedure: ?Transthoracic Echocardiogram Patient: ?GIDEON Oreilly ?(Age): 1965(53y) Med Rec#: ? [id number] ?Sex: ?M ? Site Loc: ? [facility] ?Ht / Wt: ??183(cm)/120(kg) Pt. Loc: ?Adult Floor ? BSA: ?2.4 Study Date: ?? 08/06/2019 ?Pt. Type: Inpatient Tape: ? Referring: EARLE Reading: Jack Lucas ([id number]) Corporate Communications Associate: Peter Beaver RDCS, FASE Interpreting Fellow: Tiffanie Hernandez ( [id number]) Diagnosis: *ST elevation (STEMI) myocardial infarc tion [...] 07/14/06, there is no significant change. Findings ? [...] Vmax ?0.88 ? m/sec ? MV deceleration [id number] ? m sec ? MV A-wave Vmax [...] ? Mid-Inferior ?Normal ? Mid-Inferoseptal ?Normal ? [place]-Septal ? Normal ? [place]-Anterior ? Normal ? [place]-Lateral ?Normal ? [place]-Inferior ? Normal ? [place]-Tip ?Normal ? This report has been electronically sign ed by: _ Jack Lucas MD ? 08/06/2019 09:39:30 Images reviewed and interpretation verif ied [facility] Cardiac Ultrasound Laboratory Procedure Note Jack Lucas MD - 08/06/2019Forma tting of this note might be different from the original. Procedure: Transthoracic Echocardiogram Patient: GIDEON Oreilly (Age): [birth year](53y) Med Rec#: [id number] Sex: M Site Loc: [facility] Ht / Wt: 183(cm)/120(kg) Pt. Loc: Adult Floor BSA: 2.4 Study Date: 08/06/2019 Pt. Type: Inpatie nt Tape: Referring: EARLE Reading: Jack Lucas ([id number]) Corporate Communications Associate: Peter Beaver RDCS, FASE Interpreting Fellow: Tiffanie Hernandez ([id number]) Diagnosis: *ST elevation (STEMI) myocardial infarc tion [...] MV E-wave Vmax 0.88 m/sec MV deceleration [id number] msec MV A-wave Vmax 0.85 m/sec MV [...] Normal Mid-Posterolateral Normal Mid-Inferior Normal Mid-Inferoseptal Normal [place]-Septal Normal [place]-Anterior Normal [place]-Lateral Normal [place]-Inferior Normal [place]-Tip Normal This report has been electronically sign ed by: _ Jack Lucas MD 08/06/2019 09:39: 30 Images reviewed and interpretation verif ied [facility] Cardiac Ultrasound Laboratory Tiffanie Espino MD ECHO ORDERABLES POCT Glucose (08/06/2019 7:18 AM EDT) P athologist Signature POC Glucose 170 65 - 199 [facility] mg/dL [facility] LABORATORY Comment: Supplemental ranges: <140 mg/dL before meals <180 mg/dL all other times of the day Specimen Anatomical Collection Method Collection Time Receive d Time (Source) Location / / Volume Laterality Blood specimen 08/06/2019 7:18 AM 020 7:18 (specimen) EDT AM EDT Tariq Guerrero MD POINT OF CARE TEST ORDERABLE S Performing Organization Address City/State/Z[place] [address] XR Chest One View [...] this report, please contact e number below. Tiffanie Espino MD IMG DX ORDERABLES EKG [...] 442 ms MUSE SYSTEM (Bezet) Calculated P [place] 68 degrees MUSE SYSTEM Calculated R [place] 59 degrees MUSE SYSTEM Calculated T [place] 24 degrees MUSE SYSTEM INTERPRETATION Normal sinus rhythm MUSE SYSTEM Normal ECG When compared with ECG of 06-AUG-2019 02:05, (unconfirmed) No significant change was found I personally reviewed the tracing and edited the fellows int erpretation Confirmed by fellow MD Dee, Jaylin Oviedo ([id number]) on 08/06/19 1:18:49 PM Confirmed by MD Yaima, Timothy Collins ([id number]) on 08/07/2019 9 :47:42 AM Specimen Anatomical Collection Method Collection Time Receive d Time (Source) Location / / Volume Laterality 08/06/2019 6:13 AM 0 9:47 EDT AM EDT Tiffanie Espino MD ECG ORDERABLES Performing Organization Address City/[facility]/ZIP Code Phon e Number MUSE SYSTEM Sedimentation rate (08/06/2019 5:35 AM EDT) athologist Signature Sed Rate 8 2 - 37 [facility] mm/hr [facility] LABORATORY Comment: Effective February 20, 2019 new [...] Johnson MD HEMATOLOGY ORDERABLES Performing Organization Address City/[facility]/ZIP Code Phon e Number [address] CRP, acute inflammation (08/06/2019 5:35 AM EDT) athologist Signature CRP 4.3 <=4.9 mg/L [facility] LABORATORY Specimen Anatomical Collection Method Collection Time Receive d Time (Source) Location / / Volume Laterality Blood specimen Venous Draw / 08/06/2019 5:35 AM 2019 5:44 (specimen) Unknown EDT AM EDT Resulting Agency Comment Spec In Lab Philip Johnson MD CHEMISTRY ORDERABLES Performing Organization Address City/[facility]/ZIP [facility] [place] [address] (ABNORMAL) Differential, Automated (08/06/2019 5:35 AM EDT) [facility] gist Method Time Signature Neutrophils % 73.5 % [facility] LABORATORY Neutr Abs (ANC) 6.30 (H) 1.70 - [facility] 6.10 [facility] x10(3)/[facility] L LABORATORY Lymphocytes % 16.2 % [facility] LABORATORY Lymphocytes Abs 1.4 0.9 - 3.2 [facility] x10(3)/[facility] LABORATORY Monocytes % 5.5 % [facility] LABORATORY Monocyte Abs 0.5 0.3 - 0.9 [facility] x10(3)/[facility] LABORATORY Eosinophils % 3.6 % [facility] LABORATORY Eosinophils Abs 0.3 0.0 - 0.4 [facility] x10(3)/[facility] LABORATORY Basophils % 0.6 % [facility] LABORATORY Basophils Abs 0.0 0.0 - 0.1 [facility] x10(3)/[facility] LABORATORY Immature Gran % 0.60 % [facility] LABORATORY Comment: Immature granulocytes(IG's)percentage an d absolute count will include metamyelocytes, myelocytes, and promyelo cytes. Blood smears from CBCs yielding IG's will be scanned manually for concor dance. If this scan disagrees with the automated IG or if promyelocytes are not ed, a manual differential will be performed. Julianne Gran Abs 0.05 (H) 0.00 - 0.04 x10(3)/[facility] LABORATORY Specimen Anatomical Collection Method Collection Time Receive d Time (Source) Location / / Volume Laterality Blood specimen 08/06/2019 5:35 AM 020 5:41 (specimen) EDT AM EDT Resulting Agency Comment Spec In Lab Mendoza Richards MD HEMATOLOGY ORDERABLES Performing Organization Address City/State/[place] [address] (ABNORMAL) Hemogram (08/06/2019 5:35 AM EDT) Analysis Performed At Patho logist Time Signature WBC 8.6 4.0 - 9.5 [facility] x10(3)/[facility] LABORATORY RBC 4.33 (L) 4.58 - [facility] 5.54 [facility] x10(6)/[facility] LABORATORY Hemoglobin 13.4 (L) 13.7 - [facility] 16.5 gm/dL [facility] LABORATORY Hematocrit 40.6 40.5 - EILEEN JOHNNA 48.5 % [facility] LABORATORY MCV 93.8 (H) 82.9 - [facility] 93.1 [facility] LABORATORY MCH 30.9 27.5 - EILEEN JOHNNA 32.1 pg [facility] LABORATORY MCHC 33.0 32.0 - [facility] 35.[facility] gm/dL [facility] LABORATORY Platelets 192 145 - 357 [facility] x10(3)/[facility] LABORATORY RDWSD 45.2 (H) 36.0 - [facility] 45.0 [facility] LABORATORY RDWCV 13.2 11.4 - [facility] 13.8 % [facility] LABORATORY MPV 9.5 7.6 - 12.9 [facility] LABORATORY nRBC % Auto 0.0 % [facility] LABORATORY nRBC Abs Auto 0.000 0.000 - [facility] 0.000 [facility] x10(3)/[facility] LABORATORY Specimen Anatomical Collection Method Collection Time Receive d Time (Source) Location / / Volume Laterality Blood specimen 08/06/2019 5:35 AM 020 5:41 (specimen) EDT AM EDT Resulting Agency Comment Spec In Lab Mendoza Richards MD HEMATOLOGY ORDERABLES Performing Organization Address City/State/[place] [address] Lipid Panel (Reflex Direct LDL) (08/06/2019 5:35 AM EDT) athologist Signature Chol, Total 89 mg/dL [facility] LABORATORY Comment: Lower Risk: <200 mg/dL Average Risk: 200-239 mg/dL Higher Risk: >rt=823 mg/dL Triglycerides 89 mg/dL [facility] LABORATORY Comment: Average Risk/Lower Risk: <150 mg/dL Borderline High Risk: 150-199 mg/dL High Risk: 200-499 mg/dL Very High Risk: >oj=794 mg/dL HDL 38 mg/dL [facility] LABORATORY Comment: Males: ?? Higher Risk: <40 mg/dL Females: ?? HIgher Risk: <50 mg/dL LDL Cholesterol 33 mg/dL [facility] LABORATORY Comment: Lowest Risk: <100 mg/dL Lower Risk: 100-129 mg/dL Borderline High Risk: 130-159 mg/dL High Risk: 160-189 mg/dL Very High Risk: >fs=306 mg/dL Chol/HDL Ratio 2.3 ratio [facility] LABORATORY Lipid Interpretation See Note EILEEN [facility] LABORATORY Comment: Lipid management should be guided by a p atient? s ASCVD risk, goals and preferences. ACC/AHA Guidelines recommend high intens ity statin if clinical ASCVD or LDL greater than or equal to 190 mg/dL. http://[employer]/DAT-OAN-Eqtdxqjiy Adults aged 40-75 with LDL 70-189 mg/dL should have their 10 year ASCVD risk estimated with the ACC/AHA ASCVD risk es timator http://tools.acc.org/OWSVV-Rgru-Yfneaqkj r/ Statin should be discussed if risk [...] Organization Address City/State/[place] [address] (ABNORMAL) Hemoglobin A1c (08/06/2019 5:35 AM EDT) Analysis Performed At Patho logist Time Signature Hemoglobin A1C 6.3 (H) 4.3 - 5.6 [facility] LABORATORY Comment: Reference Range: 4.3 - [...] Mellitus, Diabetes Care 2013; 36: Suppl. 1, C57-84 Est Avg Gluc 135 mg/dL EILEEN OROPEZA [facility] LABORATORY Comment: eAG equivalents for HbA1c percentages: HbA1c(%) ?eAG(mg/dL) 6.0 ?126 6.5 ?140 7.0 ?154 7.5 ?169 8.0 ?183 8.5 ?197 9.0 ?212 9.5 ?226 10.0 ? 240 Limitations: The eAG calculation has not been validated on women, individuals below 18 years old and above 70 years old, and individuals with hemoglobinopathies. Additional resources are available on [facility] ADA website. Royce IVLLASENOR, Stephany J, China R, et al. ??Tr anslating the A1C assay into estimated average glucose values. ??Diabetes Care 2008:31(8):8702-7929. Specimen Anatomical Collection Method Collection Time Receive d Time (Source) Location / / Volume Laterality Blood specimen 08/06/2019 5:35 AM 020 5:41 (specimen) EDT AM EDT Resulting Agency Comment Spec In Lab Tiffanie Espino MD CHEMISTRY ORDERABLES Performing Organization Address City/State/ZIP Code Phon e Number [place] [id number] (ABNORMAL) Troponin (08/06/2019 5:35 AM EDT) athologist Signature Troponin-T 0.31 (H) 0.00 - [facility] 0.00 ng/mL [facility] LABORATORY Comment: The 99th percentile for Troponin T is le ss than 0.01 ng/mL, any detectable cTnT concentration using this assay should be considered elevated. According to the third universal definit ion of myocardial infarction the following criteria with a clinical prese ntation consistent with acute myocardial ischemia meets the diagnosis for a myocardial infarction ([place]). Detection of a rise and/or fall of [...] additional sample may be indicated. Reference: Third Artesian Definition of Myocardial Infarction. Journal of the [place] [employer] 2012;60:1581-98 Specimen Anatomical Collection Method Collection Time Receive d Time (Source) Location / / Volume Laterality Blood specimen 08/06/2019 5:35 AM 020 5:41 (specimen) EDT AM EDT Resulting Agency Comment Spec In Lab Tiffanie Espino MD CHEMISTRY ORDERABLES Performing Organization Address City/State/[place] [address] (ABNORMAL) Basic Metabolic Panel (non-fasting) (08/06/2019 5:35 AM EDT) athologist Signature Glucose Lvl 250 (H) 65 - 199 [facility] mg/dL [facility] LABORATORY Comment: Diabetes: >=200 mg/dL plus symp toms BUN 12 10 - 20 mg/dL [facility] LABORATORY Creatinine 1.26 0.80 - 1.50 mg/dL [facility] LABORATORY Sodium 138 135 - 145 mmol/L [facility] LABORATORY Potassium 4.5 3.5 - 5.0 mmol/L [facility] LABORATORY Comment: Please note: ??Patients with WBC >100,00 0 may have falsely elevated Potassium levels. ??For accurate Potassium quantif ication in these patients send serum separator tube (gold top) for subsequent determinations. ??Contact the Clinical Chemistry Laboratory if there are any qu estions. Chloride 103 98 - 107 mmol/L [facility] CO2 24 22 - 31 mmol/L [facility] Anion Gap 11 5 - 15 mmol/L [facility] Calcium 8.6 8.5 - 10.5 mg/dL [facility] Estimated GFR 65 >=60 mL/min/1.73 m?? [facility] Comment: The eGFR was calculated using the CKD-EP I equation. As with all creatinine based estimates of kidney function, eGFR values calculated with the CKD-EPI equation are not accurate in patients wi th acute kidney failure, extremes of body mass or the acutely ill. http://[employer]/[facility] eGFR 76 >=60 mL/min/1.73 m?? [facility] Comment: The eGFR was calculated using the CKD-EP I equation. As with all creatinine based estimates of kidney function, eGFR values calculated with the CKD-EPI equation are not accurate in patients wi th acute kidney failure, extremes of body mass or the acutely ill. http://[employer]/[facility] Specimen Anatomical Collection Method Collection Time Receive d Time (Source) Location / / Volume Laterality Blood specimen 08/06/2019 5:35 AM 020 5:41 (specimen) EDT AM EDT Resulting Agency Comment Spec In Lab Tiffanie Espino MD CHEMISTRY ORDERABLES Performing Organization Address City/State/[place] [address] (ABNORMAL) POCT Glucose (08/06/2019 5:32 AM EDT) P athologist Signature POC Glucose 215 (H) 65 - 199 [facility] Comment: Supplemental ranges: <140 mg/dL before meals <180 mg/dL all other times of the day Specimen Anatomical Collection Method Collection Time Receive d Time (Source) Location / / Volume Laterality Blood specimen 08/06/2019 5:32 AM 020 5:32 (specimen) EDT AM EDT Tariq Guerrero MD POINT OF CARE TEST ORDERABLE S Performing Organization Address City/State/[place] [address] CARDIAC CATHETERIZATION (08/06/2019 4:38 AM EDT) Anatomical Region Laterality Modality Other Specimen (Source) Anatomical Location Collection Method / Collectio n Time Received Time / Laterality Volume Narrative 08/09/2019 2:54 PM EDT ?[facility] ? Cardiac Cathete rization/Intervention Report ? Patient Name: Samy Patricio ? Procedure Date: 08/06/2019 ? A #: [id number] ? Primary Physician: Jung Merino J ? Case #: [id number] ? File Name: [id number] ? Catheterization Order Number: [id number] ? [facility] ? Final Report [place], [place] ? Patient Name: ? Samy Patricio ? ID#: ?[id number] ? : ?1965 ? Procedure Date: ? August 06, 2019 ? Case #: ? [id number] ? Room: ? 6 ? Case Physician: ? Jung rutht, M.D. ?Start: ?02:39 ?Fellow: ? Jose ya M.D. ? Admission: ??08/06/2019 ? Discharge: ??08/07/2019 [...] procedure was Emergent. The indication for ?the environmental laboratory technician visit is ACS less than or equal [...] the equipment ?utilized will be described in t intervention summary section. 6,000 ?units of heparin [...] may require ?modification of this regimen. C [facility] Interventional Cardiology for ?questions. ?This patient has [...] any medical treatment. Consult ?http://tools.acc.org/DAPTriskap p/#!/content/calculator/ or [facility] ?Interventional Cardiology for q uestions. ? Conclusions: [...] sedation nurse. ??Case time = 01:04. ?Dr. Jung Merino M.D. perf ormed the coronary angiography, left ?heart catheterization, stent inser tion-coronary and IVUS # coronary. ? Jung J Coylewright, ? M.D. ? Electronically Signed by: Jung J Coylew right, M.D. ? Report Finalized: 08/09/2019 ??14:51 ? Report Last Ammended: 09/12/2019 ??15:41 ? Procedure Note Jung Merino MD - 09/12/2019For matting of this note might be different from the original. [facility] Cardiac Catheterization/Intervention Re port Patient Name: Samy Patricio Procedure Date: 08/06/2019 A #: [id number] Primary Physician: Jung Merino Case #: [id number] File Name: [id number] Catheterization Order Number: [id number] [facility] [employer] [facility] Final Report [place], [place] Patient Name: Samy Patricio ID#: [id number] : 1965 Procedure Date: August 06, [...] disease. He is status post an ac [place] ST elevation myocardial infarction. The patient had a remote co ronary intervention procedure. Prior to the initiation of this procedu re, the patient was designated as ASA Class IV. The [facility] clinical frailty scale is 4: Vulnerable. Diagnostic Tests: Electrocardiography: EKG was assessed by ECG. EKG was Abnorm al. EKG showed ST Deviation >= 0.5 mm. Medications Prior to Procedure: Angiotensin Converting Enzyme Inhibitor , Aspirin, Long Acting Nitrate, Statin and Thrombolytic (any). Indications for Diagnostic Cath: The priority of the diagnostic procedur e was Emergent. The indication for the environmental laboratory technician visit is ACS less than or equal [...] priority for the procedure was Emergent. [facility] the procedure was S VICK (after successful lytics). STEMI onset was 08/06/2019 at 11:00 PM, estimated. Thrombolytics were administered on 08/06/2019 at 12:30 AM. Intervention Summary: Right Coronary Artery Ostial 95% Stent insertion was performed on the 95 % stenosis in the ostial segment of the RCA. This was a d e adonis lesion. According to the ACC/AHA classification [...] require modification of this regimen. Consult [facility] Interventional Cardiology for questions. This patient has [...] any medical treatment. Consult http://tools.acc.org/DAPTriskapp/#!/con tent/calculator/ or [facility] Interventional Cardiology for questions . Conclusions: * [...] the sedation nurse. Case time = 01:04. Rajesh PatricioD. performed the coronary angiography, left heart catheterization, stent insertion- coronary and IVUS # coronary. Jung Merino M.D. Electronically Signed by: Jung raman M.D. [...] 454 ms MUSE SYSTEM (Bezet) Calculated P [place] 68 degrees MUSE SYSTEM Calculated R [place] 71 degrees MUSE SYSTEM Calculated T [place] 24 degrees MUSE SYSTEM INTERPRETATION Normal sinus rhythm MUSE SYSTEM Normal ECG When compared with ECG of 04-JUL-2018 22:00, No significant change was found I personally reviewed the tracing and edited the fellows int erpretation Confirmed by fellow MD Dee, Jaylin Oviedo ([id number]) on 08/06/19 20 1:17:24 PM Confirmed by MD Yaima, Timothy Collins ([id number]) on 08/07/2019 9 :47:34 AM Specimen Anatomical Collection Method Collection Time Receive d Time (Source) Location / / Volume Laterality 08/06/2019 2:05 AM 0 9:47 EDT AM EDT Tiffanie Espino MD ECG ORDERABLES Performing Organization Address City/State/ZIP Code Phon e Number MUSE SYSTEM documented in this encounter Visit Diagnoses Diagnosis ST elevation myocardial infarction (STEM I), unspecified artery ST elevation myocardial infarction (STEM I), unspecified artery documented in this encounter Admitting Diagnoses Diagnosis STEMI (ST elevation myocardial infarctio n) Acute myocardial infarction, unspecified site, episode of care unspecified documented in this encounter Administered Medications Inactive Administered Medications - up to 3 most recent administrations Medication Order MAR Action Action Date Dose Rate Site alum-mag hydroxide-simeth (Maalox) Given 08/06/2019 4:09 AM EDT 30 mLs (40 mg-40 mg-4 mg/mL) oral liquid ONCE PRN, Starting on Mon08/06/19 at 0409, Until Mon08/06/19 at 0414, Cath (Intra-Procedure), Routine aspirin EC tablet 81 mg Given 08/07/2019 [...] PM EDT 80 mg clopidogreL (Plavix) tablet Given 08/06/2019 2:22 AM EDT 300 mg ONCE PRN, Starting on Mon08/06/19 at 0222, Until Mon08/06/19 at 0403, Cath (Intra-Procedure), Routine dextrose 10% infusion 250 mL, at [...] the active insulin. fentaNYL 50 mcg/mL multi-dose Given 08/06/2019 3:31 AM EDT 25 mc g Left Arm injection ONCE PRN, Starting on Mon08/06/19 at 0234, Until Mon08/06/19 at 0403, Intra-Operative (Intra-Procedure), Routine Given 08/06/2019 2:37 AM EDT 25 mcg Left Arm Given 08/06/2019 2:34 AM EDT 25 mcg Left Arm folic acid (Folvite) tablet 1,000 mcg Given 08/07/2019 11:29 AM EDT 1,000 mcg 1,000 mcg (1 mg), Oral, DAILY, First dose on Mon08/07/19 at 1030, Until Discontinued, Routine glucagon (human recombinant) injection S olR 1 [...] 37.5 grams., Routine heparin (porcine) 1,000 unit/mL Given 08/06/2019 3:03 AM EDT 2,0 00 Units Left Arm injection ONCE PRN, Starting on Mon08/06/19 at 0250, Until Mon08/06/19 at 0403, Cath (Intra-Procedure), Routine Given 08/06/2019 2:50 AM EDT 4,000 Units Left Arm heparin (Porcine) subcutaneous injection Given 020 3:11 [...] Given 08/07/2019 8:13 AM EDT 1 Units iohexoL (OMNIPAQUE) 350 mg/mL solution Given 08/06/2019 3:48 AM EDT 110 mLs ONCE PRN, Starting on Mon08/06/19 at 0348, Until Mon08/06/19 at 0403, Cath (Intra-Procedure), Routine ipratropium-albuteroL (DUONEB) 0.5 mg-3 mg(2.5 mg base)/3 mL nebulizer solution 3 mL 3 mL, Nebulization, 4 TIMES DAILY PRN, S tarting on Mon08/07/19 at 1351, Until Mon08/07/19 at 2017, Wheezing, Routine lidocaine (XYLOCAINE) 10 mg/mL (1 %) Given 08/06/2019 2:36 AM ED T 3 mLs Right Arm injection ONCE PRN, Starting on Mon08/06/19 at 0236, Until Mon08/06/19 at 0403, Cath (Intra-Procedure), Routine LORazepam (ATIVAN) injection 0.5-1.5 mg 0.5-1.5 mg, Intravenous, EVERY 4 HOURS P RN, Starting on Mon08/07/19 at 1139, Until Mon08/07/19 at 2017, alcohol/benzodiazep ine withdrawal- uncomplicated, ATTENTION: THIS IS LOW DOSE LORAZEPAM When given intravenously, t he rate of administration should not exceed 2 mg/minute with ermer gency equipment available. Per assessment scale for uncomplicated [...] on Mon08/07/19 at 1139, Until Mon08/07/19 at 2017, alcohol/benzodiazepine with drawal- uncomplicated, ATTENTION: THIS IS [...] May give IM if no IV access., Routi ne LORazepam (ATIVAN) injection 2 mg 2 mg, Intramuscular, EVERY 8 HOURS, 6 doses, First dos e on Mon08/07/19 at 1215, Last dose on Mon08/09/19 at 0415, May gi ve IV if unable to take PO. May give IM if no IV access., Routine LORazepam (Ativan) tablet 0.5-1.5 mg 0.5-1.5 mg, Oral, EVERY 4 HOURS PRN, Starting on Mon at 1139, Until Mon08/07/19 at 2017, alcohol/benzodiazepine withdrawal- un complicated, ATTENTION: THIS IS [...] give IM if no IV access., Routine metoprolol tartrate (Lopressor) tablet 2 5 mg Given 08/07/2019 5:13 PM EDT 25 mg 25 mg, Oral, EVERY 6 HOURS SCHEDULED, First dose (after last modification) on Mon08/07/19 at 1200, Until Discontinued, Hold for SBP < 100 mm Hg or HR < 55 bpm, Routine Given 08/07/2019 11:28 AM EDT 25 mg midazolam (PF) (VERSED) multi-dose Given 08/06/2019 2:47 AM EDT 0.5 mg Left Arm injection ONCE PRN, Starting on Mon08/06/19 at 0234, Until Mon08/06/19 at 0403, Cath (Intra-Procedure), Routine Given 08/06/2019 2:37 AM EDT 1 mg Left Arm Given 08/06/2019 2:34 AM EDT 1 mg Left Arm nicotine (NICODERM CQ) Patch Applied 08/07/2019 8:11 [...] and allow to slowly dissolve., Routine nitroGLYcerin 100 mcg/mL intracoronary Given 08/06/2019 2:45 AM EDT 150 mcg dilution ONCE PRN, Starting on Mon08/06/19 at 0245, Until Mon08/06/19 at 0403, Cath (Intra-Procedure), Routine pantoprazole EC (Protonix) tablet 40 mg [...] on Mon at 0900, Until Discontinued, Routine sodium chloride 0.9 % (flush) flush 5 mL Given 08/07/2019 8:13 AM EDT 5 mLs 5 mL, Intravenous, 2 TIMES DAILY, First dose on Mon08/06/19 at 0900, Until Discontinued, Routine Given 08/06/2019 9:00 PM EDT 5 mLs Given 08/06/2019 9:00 AM EDT 5 mLs sucralfate (Carafate) (100 mg/mL) oral liquid 1 [...] 81 mg 0829 (Given - Provider: Daniel Sands RN) 08 (Given - Provider: Maureen Carrillo, GUILLAUME) 81 mg, Oral, DAILY, First dose on Mon at 0900, Until Discontinued, Routine atorvastatin (Lipitor) tablet 80 mg 1754 (Given - Provider: Rama Park RN) 1714 (Given - Provider: Maureen Carrillo RN) 80 mg, Oral, EVERY EVENING, First dose o n Mon08/06/19 at 1700, Until Discontinued, Routine clopidogreL (Plavix) tablet 75 mg (COMPLETED) 08 (Given - Provider: Daniel Sands RN) 75 mg, Oral, ONCE, 1 dose, Mon08/06/19 at 0800, Routine folic acid (Folvite) tablet 1,000 mcg 1129 (Given - Provider: Maureen Carrillo, GUILLAUME) 1,000 mcg (1 mg), Oral, DAILY, First dos e on Mon08/07/19 at 1030, Until Discontinued, Routine furosemide (LASIX) injection 20 mg (COMPLETED) 1048 (Given - Provider: Daniel Sands RN) 20 mg, Intravenous, ONCE, 1 dose, Mon08/06/19 at 1045 heparin (Porcine) subcutaneous injection 5,000 Units 0600 (Not Given - Provider: Natalia Renee, GUILLAUME - Reason: Patient/family refused)1349 (Given - Provider: Daniel Sands RN)2103 (Given - Provider: Natalia Renee, GUILLAUME) 0507 (Given - Provider: Natalia Renee, GUILLAUME)1511 (Given - Provider: Maureen Carrillo, GUILLAUME) 5,000 Units, Subcutaneous, EVERY 8 HOURS SCHEDULED, First dose on Mon08/06/19 at 0600, Until Discontinued, Routine insulin lispro (HumaLOG) VIAL injection 1-4 Units(Linked Adiel up 1) 0536 (Given - Provider: Natalia Renee, GUILLAUME)0828 (Given - Provider: Daniel Sands, RN)1200 (Not Given - Provider: Daniel Sands, GUILLAUME - Reason: Order parameters not met) 0400 (Not Given - Provider: Natalia irene RN - Reason: Order parameters not met)0813 (Given - Provider: Maureen Carrillo, GUILLAUME)1202 (Given - Provider: Maureen Carrillo, GUILLAUME)1714 (Given - Provider: Maureen Carrillo RN) 1-4 Units, Subcutaneous, EVERY 4 HOURS S CHEDULED, First dose on Mon08/06/19 at 0515, Until Discontinued, CORRECTION BOLUS [1-4 Units] Sensitive Sliding Scale: Correction factor 40 (1 unit of insulin 1648 (N ot Given - Provider: Rama Park RN - Reason: Order parameters not met)2031 (Given - Provider: Natalia Renee, GUILLAUME)2327 (Given - Provider: Natalia Renee RN) is [...] specifically told to do so. Per B od Glucose Monitoring Policy, re-check a BG of > 240 in 2 hours., Routine LORazepam (ATIVAN) injection 2 mg(Linked Group 2) 1215 (See Alternative - Provider: Maureen Carrillo, GUILLAUME) 2 mg, Intravenous, EVERY 8 HOURS, 6 dose s, First dose on Mon08/07/19 at 1215, Last dose on Mon08/09/19 at 0415, When given intravenously, the rate of administration should not exceed 2mg/minute with winnie ency equipment available. May give IV if unable [...] (COMPLETED) 1811 (New Bag - Provider: Rama Park, GUILLAUME)2011 (Stopped - Provider: Natalia Renee, GUILLAUME) 2 g, Intravenous, ONCE, 1 dose, 08/05 at 1800, Administer over 120 Minutes metoprolol tartrate (Lopressor) tablet 12.5 mg (CANCELED) 1348 (Given - Provider: Daniel Sands RN)1754 (Given - Provider: Rama Park, GUILLAUME)2328 (Given - Provider: Natalia Renee, GUILLAUME) 0507 (Given - Provider: Natalia Renee RN) 12.5 mg, Oral, EVERY 6 HOURS SCHEDULED, First dose on Mon08/06/19 at 1315, Until Discontinued, Hold for SBP < 100 mm Hg or HR < 55 bpm, Routine metoprolol tartrate (Lopressor) tablet 25 mg 1128 (Given - Provider: Maureen Carrillo, GUILLAUME)1713 (Given - Provider: Maureen Carrillo, GUILLAUME) 25 mg, Oral, EVERY 6 HOURS SCHEDULED, Fi rst dose (after last modification) on Mon08/07/19 at 1200, Until Discontinued, Hold for SBP < 100 mm Hg or HR < 55 bpm, Routine nicotine (NICODERM CQ) 21 mg/24 hr patch 21 mg (CANCELED) 08 (Patch Applied - Provider: Daniel Sands RN) [...] pantoprazole EC (Protonix) tablet 40 mg (CANCELED) 0828 (Given - Provider: Daniel Sands RN) 08 (Given - Provider: Maureen Carrillo RN) 40 [...] location) verified - Provider: Rama Park RN) 09 (Patch (dose and location) verified - Provider: Maureen Carrillo RN) Transdermal, 2 TIMES DAILY, First dose ( after last modification) on Mon08/06/19 at 1730, Until Discontinued, Verify nicotine 21 mg/24 hr patch prasugreL (Effient) tablet 10 mg 10 mg, Oral, DAILY, First dose on Mon at 0900, Until Discontinued, Routine prasugreL (Effient) tablet 60 mg (COMPLETED) 812 (Given - Provider: Maureen Carrillo RN) 60 mg, Oral, ONCE, 1 dose, Mon08/07/19 at 0900, Routine sodium chloride 0.9 % (flush) flush 5 mL 0900 (Given - Provider: Daniel Sands, GUILLAUME)2100 (Given - Provider: Natalia Renee, GUILLAUME) 0813 (Given - Provider: Maureen Carrillo, GUILLAUME) 5 mL, Intravenous, 2 TIMES DAILY, First dose on Mon08/06/19 at 0900, Until Discontinued, Routine sucralfate (Carafate) (100 mg/mL) oral liquid 1 g 0600 (Given - Provider: Daniel Sands RN)1236 (Given - Provider: Daniel Sands, RN)1753 (Given - Provider: Rama Park, GUILLAUME)2328 (Given - Provider: Natalia Renee RN) 0507 (Given - Provider: Natalia ramos RN)1130 (Given - Provider: Maureen Carrillo, RN)1713 (Given - Provider: Maureen Carrillo, RN) 1 g, Oral, EVERY 6 HOURS SCHEDULED, [...] 0 222 (Given - Provider: Mckenzie Parks, RN) ONCE PRN, Starting Mon08/06/19 at 0222, Until [...] injection (CANCELED) 0234 (Given - Provider: Mckenzie Praks RN)0237 (Given - Provider: Mckenzie Parks, GUILLAUME)033 (Given [...] 2017, Low blood sugar, For BG 50-70 mg/dL: [...] injection (CANCELED) 0250 (Given - Provider: Mckenzie Parks RN)0303 (Given - Provider: Mckenzie Parks RN) ONCE PRN, Starting Mon08/06/19 at 0250, Until Mon08/06/19 at 0403, Cath (Intra- Procedure), Routine iohexoL (OMNIPAQUE) 350 [...] Routine midazolam (PF) (VERSED) multi-dose injection (CANCELED) 233 (Given - Provider: Mckenzie Parks, RN)236 (Given - Provider: Mckenzie Parks, RN)246 (Given - Provider: Mckenzie Parks RN) ONCE PRN, Starting Mon08/06/19 at 0234, [...] Routine nitroGLYcerin 100 mcg/mL intracoronary dilution (CANCELED) 244 (Given - Provider: Jose Ellison MD) ONCE [...] mg/250 mL (8 mcg/mL) infusion Soln (COMPLETED) 204 (New Bag - Provider: Elizabeth Ramírez, RN) 1 dose, Starting Mon08/06/19 at 0204, Un til Mon08/06/19 at 0205, ELIZABETH RAMÍREZ: cabinet override heparin (porcine) 25,000 unit/500 mL infusion (COMPLETED) 208 (New Bag - Provider: Elizabeth Ramírez, RN) [...] or Regular (not diet) soda OR If PRICE CLERK O, give 15 gram glucose 40% oral [...]
Routine documented in this encounter Care Teams [employer] Automatic Relationship Specialty Start Date End Date Sae Marr MD PCP - General General Internal Medicine 08/06/[address] [facility] [place], [place] [id number] documented as of this encounter
--- OUTSIDE RECORDS SUMMARY | 2021-12-17 01:02 | XMS_ITS | Encounter Summary ---
:1965 Author Organization [facility] [place] [address] Care Team Providers Name Role Phone Unavailable Primary Care Provider Unavailable Encounter Details Date Type Department Care Team Description 07/02/2018 Telephone Gastroenterology at [facility] [place] [address] Social History Tobacco Use Types Packs/Day Years Used Date Current Every Day Smoker Cigarettes 2 Smokeless Tobacco: Never Used Alcohol Use Standard Drinks/Week Comments Yes 0 (1 standard drink = 0.6 oz pure alcoho l) Alcohol Habits Answer Date Recorded How often do you have a drink containing 4 or more times a w iqugmiut 07/05/2018 alcohol? How many drinks containing alcohol do you have 10 or more 07/05/2018 on a typical day when you are drinking? How often do you have six or more drinks on one Daily or alfredito ost daily 07/05/2018 occasion? Comment: Not asked Sex Assigned at Date Recorded Not on file documented as of this encounter Miscellaneous Notes Telephone Encounter - Tamica Perera - 07/02/2018 10:56 AM EDT Samy Oreilly [place] [id number] Diagnosis: Diaz's esopagus surveillance dysphagia 1. Have you ever had a colonoscopy before? [x] YES [] NO If Yes, Date of Last EGD: 2016 per patient . [facility] 2011 If yes, did you have any problems with the procedure? [] YES [x] NO Explain: What type of sedation was used: IV sedation 2. Do you take any Blood Thinners? [x] YES [] NO If Yes, type: Clopidogrel 3. Do you have a Pacemaker or Defibrillator device? [] YES [x] NO If Yes send 4Less message to deeplocal DEVICE CHECK 4. Are you a diabetic? [x] YES [] NO If yes, controlled by meds or diet? Both 5. Do you have any Allergies to Eggs, Latex or Medications? [] YES [x] NO If Yes, what: 6. Do you take any Oral Iron Supplements (Including multi vitamins)? [] YES [x] NO 7. Do you have a history of three or more abdominal surgeries? [] YES [x] NO 8. Have you had a problem with sedation or anesthesia? [] YES [x] NO 9. Do you have a c-pap machine or oxygen tank? [] C-PAP [] Oxygen [x] NO 10. Do you take prescription narcotic pain medications? [] YES [x] NO 11. You must have a responsible alliance party stay at the facility during your procedure and drive you home? [x] YES 12. Is there any other information you would like to give us to aid in scheduling? Height: 6'0 Weight: 266 BMI: 36.1 Age:52 y.o. documented in this encounter Plan of Treatment Upcoming Encounters Date Type Specialty Care Team Description 01/26/2022 Office Visit Ophthalmology Tania Gates , OD [facility] [place] [address] (Wo rk) Scheduled Procedures Name Priority [...] & MYELOPATHY MORSELIZED (WRVU *) MODIFIER K2 [facility] STENOS[facility] & HNP & MYELOPATHY documented as of this encounter Visit Diagnoses Not on filedocumented in this encounter
--- OUTSIDE RECORDS SUMMARY | 2021-12-17 01:02 | XMS_ITS | Encounter Summary ---
:1965 Author Organization [facility] [place] [address] Care Team Providers Name Role Phone Unavailable Primary Care Provider Unavailable Encounter Details Date Type Department Care Team Description 09/27/2018 Hospital Encounter Gastroenterology at [facility] Luc Hdz, [facility] [place] [address] [facility] [phone] [facility] [place], [place] [address] Social History Tobacco Use Types Packs/Day Years Used Date Current Every Day Smoker Cigarettes 2 Smokeless Tobacco: Never Used Alcohol Use Standard Drinks/Week Comments Yes 7 (1 standard drink = 0.6 oz pure alcoho l) Alcohol Habits Answer Date Recorded How often do you have a drink containing 4 or more times a w [place] 07/05/2018 alcohol? How many drinks containing alcohol [...] Sign Reading Time Taken Comments Blood Pressure 144/96 09/27/2018 8:30 AM EDT Pulse 80 09/27/2018 8:10 AM EDT Temperature 36.5 ??C (97.7 ??F) 09/27/2018 7:33 AM EDT Respiratory Rate 17 09/27/2018 8:30 AM EDT Oxygen Saturation 91% 09/27/2018 8:30 AM EDT Inhaled Oxygen Concentration - - Weight 120.2 kg (265 lb) 09/27/2018 7:33 AM EDT Height - - Body Mass Index 35.94 07/04/2018 8:37 PM EDT documented in this encounter Discharge Instructions Discharge InstructionsZuleyka Sheppard RN - 09/27/2018 8:16 AM EDT Please call [phone] before 8pm Mon-Fri with problems, questions or concerns. If you call after 8pm or on weekends, call the Hospital at [phone] and ask to speak to the [employer] credit card collection clerk and the duplicator punch operator will contact that person for you. AttachmentsThe following attachments cannot be sent through Care Everywhere.EGD (Upper Endoscopy): Post-op (German)documented in this encounter Medications at Time of Discharge Medication Sig Dispensed Refills Start Date End Date aspirin 81 mg Tablet, Take 81 mg by mouth 0 08/27 Delayed Release (E.C.) Daily. glipiZIDE (GLUCOTROL) 5 Take 10 mg by mouth 4 07/2016 mg Tablet 2 times daily (before meals). predniSONE (DELTASONE) 20 TAKE 2 TABLETS BY 0 04/201801/28/2019 mg Tablet MOUTH ONCE DAILY FOR 5 DAYS THEN STOP clopidogrel (PLAVIX) 75 Take 75 mg by mouth 0 01/28/2019 mg Tablet Daily. isosorbide mononitrate Take 60 mg by mouth 04/1411/09/2018 (IMDUR) 60 mg Tablet daily. Sustained Release 24 hr metoprolol succinate Take 50 mg by mouth 0 201708/07/2019 (TOPROL-XL) 25 mg Tablet Daily. Sustained Release 24 hr nicotine (NICODERM CQ) 14 Place 1 patch onto 0 01/28/2019 mg/24 hr Patch 24 hr the skin Daily. atorvastatin (LIPITOR) 40 Take 40 mg by mouth 0 0 08/27/2017 08/07/2019 mg Tablet Daily. metFORMIN (GLUCOPHAGE) Take 1,000 mg by 4 017 11/14/2018 1,000 mg Tablet mouth nightly. documented as of this encounter H&P Notes Luc Hdz MD - 09/27/2018 7:36 AM EDT Gastroenterology and Hepatology Pre-Procedure History and Physical Exam Procedure: EGD: Indication: GERD Patient Active Problem List Diagnosis Code ??? Chronic midline low back pain without sciatica M54.5, G89.29 EXAM: HEENT: Airway examined, oropharynx clear Mallampati Score: I (soft palate, uvula, fauces, tonsillar pillars visible) LUNGS: Clear to auscultation HEART: Regular rate and rhythm, normal S1, S2 ABDOMEN: Normal bowel sounds, soft, non tender, non distended, A/P Proceed with the planned endoscopic procedure. ASA 2 - Patient with mild systemic disease with no functional limitations Sedation Plan: moderate (conscious sedation) Risks and benefits of the procedure explained to the patient. Consent signed. documented in this encounter Plan of Treatment Upcoming Encounters Date Type Specialty Care Team Description 01/26/2022 Office Visit Ophthalmology Tania Gates , OD [facility] DR OPHTHALMOLOGY [place], [place] [address] (Wo rk) Scheduled Procedures Name [...] MORSELIZED (WRVU *) MODIFIER K2 [facility] [place] STENOSIS & HNP & MYELOPATHY documented as of this encounter Procedures Procedure Name Priority Date/Time Associated Comments Diagnosis SPECIMEN TO PATHOLOGY Routine 09/27/2018 8:12 Res ults for this AM EDT procedure are i n the results section. SPECIMEN TO PATHOLOGY Routine 09/27/2018 8:12 Res ults for this AM EDT procedure are i n the results section. SURGICAL PATHOLOGY Routine 09/27/2018 8:05 Result s for this REPORT AM EDT procedure are i n the results section. UPPER GASTROINTESTINAL 09/27/2018 7:53 Diaz's esopa irais ENDOSCOPY,WITH BIOPSY AM EDT surveillan ce SINGLE OR MULTIPLE (WRVU dysphag ia 2.49) proclear POCT GLUCOSE Routine 09/27/2018 7:49 Results for this AM EDT procedure are i n the results section. UPPER GI ENDOSCOPY Routine 09/27/2018 7:40 Result s for this AM EDT procedure are i n the results section. documented in this encounter Results Specimen to Pathology (09/27/2018 8:12 AM EDT) Specimen Anatomical Collection Method Collection Time Receive d Time (Source) Location / / Volume Laterality AP Specimen 09/27/2018 8:12 AM 9 8:12 EDT AM EDT Narrative [facility] - 09/27/2018 8:12 AM EDT Specimen requisition ordered. ??Separate Pathology report to follow Luc Hdz MD PATHOLOGY/CYTOLOGY ORDERABLE S Performing Organization Address City/[facility]/[place] [address] Specimen to Pathology (09/27/2018 8:12 AM EDT) Specimen Anatomical Collection Method Collection Time Receive d Time (Source) Location / / Volume Laterality AP Specimen 09/27/2018 8:12 AM 9 8:12 EDT AM EDT Narrative [facility] - 09/27/2018 8:12 AM EDT Specimen requisition ordered. ??Separate Pathology report to follow Luc Hdz MD PATHOLOGY/CYTOLOGY ORDERABLE S Performing Organization Address [facility]/[place] [address] Surgical Pathology Report (09/27/2018 8:05 AM EDT) Component Value Ref Test Analysis Performed At [facility] Range Method Time Signature Surgical [id number] ? Location: 4T; EA09; A [facility] Report The signing pathologist has (i) examined the relevant preparation(s) for the [facility] specimen(s) and (ii) rendered or confirmed the diagnosis(es) . HOSPITAL LABORATORY . ?Surgic al Pathology DIAGNOSIS A - Duodenum, biopsy: - ??Duodenal mucosa, negative for diagnostic abnormality ??. B - Z line, biopsy: - ??Diaz's esophagus, negative for dysplasia. CR-PX Electronically signed by: ??Rc Mathews MD Verified: ??10/01/2018 ?Pathologist Performed at: ??-[facility] Dept. of Pathology, [place], [place] CLINICAL INFORMATION Specimen Submitted: A - duodenum biopsies B - z-line biopsies Clinical History and Diagnosis: Patient with bloating and short segment Diaz's esophagus SPECIMEN PROCESSING A - Labeled/Fixative: Duodenum biopsies, formalin. Quantity/Size: Two, averaging 0.4 cm. Tissue Description: Soft, pink tissues. Sections/Processing: Submitted en toto ??in 1 cassette labeled A1. B - Labeled/Fixative: Z line biopsies, formalin. Quantity/Size: Multiple, 0.1-0.3 cm. Tissue Description: Soft, pink tissues. Sections/Processing: Submitted en toto ??in 2 cassettes labeled B1-B2. ??ejr Specimen (Source) Anatomical Collection Method Collection Time Re ceived Time Location / / Volume Laterality 09/27/2018 8:05 AM EDT Luc Hdz MD PATHOLOGY/CYTOLOGY ORDERABLE S Performing Organization Address City/State/ZIP Code Phon e Number [facility] [place] [address] [facility] [address] POCT Glucose (09/27/2018 7:49 AM EDT) athologist Signature POC Glucose 124 65 - 199 [facility] mg/dL [facility] Comment: Supplemental ranges: <140 mg/dL before meals <180 mg/dL all other times of the day Specimen Anatomical Collection Method Collection Time Receive d Time (Source) Location / / Volume Laterality Blood specimen 09/27/2018 7:49 AM 019 7:49 (specimen) EDT AM EDT Luc Hdz MD POINT OF CARE TEST ORDERABLE S Performing Organization Address City/State/[place] [address] UPPER GI ENDOSCOPY (09/27/2018 7:40 AM EDT) [facility] Method Time Signature UPPER GI [facility] ENDOSCOPY Endoscopy Procedure Date: 09/27/2018 7:40 AM ? Patient Name: Samy Patricio ? N: [id number] ? Date of : 1965 ? Age: 52 ? Order #: [id number] ? Instrument Name: [id number] ? Procedure: ? Upper GI endoscopy Indications: ? Short segment of Diaz's, on ? Protonic, bloating Providers: ? Luc Hdz MD, Jyoti Castillo ? GUILLAUME Doll, Aleena Santoyo MD: ?Abi Lazaro Medicines: ? Midazolam 4 mg IV, Fentanyl 250 ? micrograms IV Complications: ? No immediate complications. Procedure: ? The procedure, indications, benefi ts, ? risks and alternatives were e xplained ? to the patient. Specifically ? discussed were potential ? complications including, but not ? limited to, bleeding, perfora tion, ? infection, missing a cancer, and ? adverse medication reactions. The ? Endoscope was introduced thro [facility] the ? mouth, and advanced to the ird part ? of duodenum. The patient tole rated ? the procedure well. The upper GI ? endoscopy was accomplished wi out ? difficulty. The patient skip ated the ? procedure well. ? Findings: ? The Z-line was irregular and was found 40 cm from the ? incisors. Biopsies were taken with a cold forceps for ? histology. ? The examined esophagus was normal. ? The entire examined stomach was normal. ? The examined duodenum was normal. Biopsies were taken ? with a cold forceps for histology. ? Moderate Sedation: ? I was present during the intraservice time as ? documented by the sedation RN. Impression: ?- Z-line irregular, 40 cm from the ? incisors. Biopsied. ? - Normal esophagus. ? - Normal stomach. ? - Normal examined duodenum. B iopsied. Recommendation: ?- Await pathology results. ? Attending Participation: ? I personally performed the entire procedure. ? Luc Hdz MD 09/27/2018 8:27:17 AM This report has been signed electronically. Number of Addenda: 0 Note Initiated On: 09/27/2018 7:40 AM Specimen (Source) Anatomical Collection Method Collection Time Re ceived Time Location / / Volume Laterality 09/27/2018 7:40 AM EDT Abi Lazaro APRN GENERAL SURGICAL ORDERABLES Performing Organization Address City/State/ZIP Code Phon e Number [facility] documented in this encounter Visit Diagnoses Not on filedocumented in this encounter Administered Medications Inactive Administered Medications - up to 3 most recent administrations Medication Order MAR Action Action Date Dose Rate Site lactated ringers infusion New Bag 09/27/2018 7:45 AM EDT 100 mL/hr 100 mL/hr 100 mL/hr, Intravenous, CONTINUOUS, Starting on Migdalia 09/27/18 at 0745, Until Migdalia 09/27/18 at 0835, Endoscopy (Day of Procedure) documented in this encounter Active and Recently Administered Medications Times are shown in EDT. Continuous Medication Order 09/25/2018 09/26/2018 09/27/2018 lactated ringers infusion (CANCELED) 0745 (New Bag - Provider: Candace Dupree, GUILLAUME) 100 mL/hr, at 100 mL/hr, Intravenous, CO NTINUOUS, Starting Migdalia 09/27/18 at 0745, Until Migdalia 09/27/18 at 0835, Endo (Day of Procedure) PRN Medication Order 09/25/2018 09/26/2018 09/27/2018 fentaNYL 50 mcg/mL multi-dose injection (CANCELED) 0755 (Given - Provider: Jyoti Doll RN)0758 (Given - Provider: Jyoti Doll RN)0801 (Given - Provider: Jyoti Doll RN)0804 (Given - Provider: Jyoti Doll, GUILLAUME)0807 (Given - Provider: Jyoti Doll, GUILLAUME) ONCE PRN, Starting Migdalia 09/27/18 at 0755, Until Migdalia 09/27/18 at 1046, Intra- Operative (Intra-Procedure), Routine midazolam (PF) (VERSED) multi-dose injection (CANCELED) 0755 (Given - Provider: Jyoti Doll RN)0758 (Given - Provider: Jyoti Doll RN)0801 (Given - Provider: Jyoti Doll RN)0804 (Given - Provider: Jyoti Doll, GUILLAUME) ONCE PRN, Starting Migdalia 09/27/18 at 0755, Until Migdalia 09/27/18 at 1046, Intra- Operative (Intra-Procedure), Routine documented in this encounter
--- OUTSIDE RECORDS SUMMARY | 2021-12-17 01:02 | XMS_ITS | Encounter Summary ---
:1965 Author Organization [facility] [place] [address] Care Team Providers Name Role Phone Unavailable Primary Care Provider Unavailable Encounter Details Date Type Department Care Team Description 01/28/2019 Telephone Pre-Admission Enma miranda at [facility] [place] [address] Social History Tobacco Use Types Packs/Day Years Used Date Current Every Day Smoker Cigarettes 2 Smokeless Tobacco: Never Used Alcohol Use Standard Drinks/Week Comments Yes 7 (1 standard drink = 0.6 oz pure alcoho l) Alcohol Habits Answer Date Recorded How often do you have a drink containing 4 or more times a w [place]unkey 07/05/2018 alcohol? How many drinks containing alcohol [...] Office Visit Ophthalmology Tania Gates , OD [facility] OPHTHAL[facility]OLOGY [place], [place] [address] (Wo rk) Scheduled Procedures Name [...] & MYELOPATHY MORSELIZED (WRVU *) MODIFIER K2 [facility] STENOSIS & HNP & MYELOPATHY documented as of this encounter Visit Diagnoses Not on filedocumented in this encounter
--- OUTSIDE RECORDS SUMMARY | 2021-12-17 01:02 | XMS_ITS | Encounter Summary ---
:1965 Author Organization [facility] [place] [address] Care Team Providers Name Role Phone Unavailable Primary Care Provider Unavailable Encounter Details Date Type Department Care Team Description 10/15/2018 Ancillary Procedure Radiology at [facility] Rosanna Clement [address] [place] [address] 10 LUISANA DONATO [phone] NEUROSURGERY-N N [place], [place] [address] Social History Tobacco Use Types Packs/Day Years Used Date Current Every Day Smoker Cigarettes 2 Smokeless Tobacco: Never Used Alcohol Use Standard Drinks/Week Comments Yes 7 (1 standard drink = 0.6 oz pure alcoho l) Alcohol Habits Answer Date Recorded How often do you have a drink containing 4 or more times a w [place] 07/05/2018 alcohol? How many drinks containing alcohol [...] Gates , OD [facility] OPHTHALMOLOGY DE PT [place], [place] [address] (Wo rk) Scheduled Procedures Name [...] & MYELOPATHY MORSELIZED (WRVU *) MODIFIER K2 [facility] STENOSIS & HNP & MYELOPATHY documented as of this encounter Procedures Procedure Name Priority Date/Time Associated Diagnosis Comme nts FILM LIBRARY Routine 10/15/2018 12:00 AM Results for this STORAGE ONLY MR EDT procedure ar e in SPINE the results section. documented in this encounter Results Film Library- Storage Only MR Spine (10/15/2018 12:00 AM EDT) Specimen (Source) Anatomical Location Collection Method / Collectio n Time Received Time / Laterality Volume Narrative [facility] MANNING - 10/18/2018 12:20 PM EDT This exam is auto-finalizing. It's purpo se is for storage only. Rosanna Clement MD [facility] FILM LIBRARY ORDERABLES Performing Organization Address City/State/ZIP Code Phon e Number ARMAN[facility] MANNING [place], [place] documented in this encounter Visit Diagnoses Not on filedocumented in this encounter
--- OUTSIDE RECORDS SUMMARY | 2021-12-17 01:02 | XMS_ITS | Encounter Summary ---
:1965 Author Organization [facility] [place] [address] Care Team Providers Name Role Phone Altaf Hoover MD Primary Care Provider Encounter Details Date Type Department Care Team Description 08/24/2017 Telephone Cardiology Shereen Talbert MD [facility] [place] [address] CRITICAL CARE MEDICINE [phone] [place] [address] (Wo rk) Social History Tobacco Use Types Packs/Day Years Used Date Current Every Day Smoker Cigarettes 2 Smokeless Tobacco: Never Used Alcohol Use Standard Drinks/Week Comments Yes 0 (1 standard drink = 0.6 oz pure alcoho l) Alcohol Habits Answer Date Recorded How often do you have a drink containing 4 or more times a w [place] 07/05/2018 alcohol? How many drinks containing alcohol do you have 10 or more 07/05/2018 on a typical day when you are drinking? How often do you have six or more drinks on one Daily or alfredito ost daily 07/05/2018 occasion? Comment: Not asked Sex Assigned at Date Recorded Not on file documented as of this encounter Miscellaneous Notes Telephone Encounter - Shereen Talbert MD - 08/24/2017 7:45 PM EDT Telephone Triage Note Initial Contact Date: 08/24/2017 Initial contact time: ~1930 Referring Provider: Dr. Lion Borjas Patient Location: [facility] ED Presenting Symptoms per OSH: 51yoM actively smoking 2PPD w/h/o obesity (120kg), DM2, HLD on lipitor who presents with chest pain found to have NSTEMI. Patient was at rest standing at work at ~1400 when he had onset of 10/10 chest pain accompanied by mild SOB and diaphoresis. For unknown reasons he waited to present to the ED until ~1600 at which point his symptoms were completely relieved by NTG SL x1 dose. Initial troponin was negative but 3-hour troponin was 0.98. EKGs SR without ST changes but with somewhat peaked appearing anterior TWs. Chest pain recurred, less severely, but requiring NTG again and the patient is now being started on a NTG gtt. He has also been treated with ASA 324mg, heparin bolus and drip, metoprolol 25mg po. Other labs and CXR reportedly unremarkable. Patient hemodynamically stable. Patient underwent evaluation for chest pain locally in April where he ruled out for ACS and had anegative NM MPI, by report. Pertinent Diagnostic Findings: Vitals: BP 123/78 HR 72 SaO2 98% on RA EKG : SR, no ST changes, slightly peaked appearing TWs in the anterior leads Troponin I <0.03 => 0.98 (3hr) CXR: WNL/No acute process HGB 15 PLT 233 BUN/Cr 17/1.39 Electrolytes reportedly WNL Glucose 312 OSH Interventions: ASA 324mg NTG SL x2 => NTGpaste => NTG gtt Metoprolol 25mg po Heparin gtt Plan: 51yoM with multiple risk factors presents with clear NSTEMI. 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 Therefore I have accepted the patient in transfer for planned bed in the morning and advised Dr. Borjas that if the patient's pain cannot be controlled with a NTG gtt or he otherwise clinically declines that he call me back to expedite transfer for cardiac catheterization overnight. I advised that he continue the current treatment regimen with the addition of clopidogrel 300mg. Continue cycling of enzymes and EKGs. documented in this encounter Plan of Treatment Upcoming Encounters Date Type Specialty Care Team Description 01/26/2022 Office Visit Ophthalmology Tania Gates , OD [facility] [place], [place] [address] (Wo rk) Scheduled Procedures Name [...] *) MODIFIER K2 [facility] STENOSIS & HNP & MYELOPATHY documented as of this encounter Visit Diagnoses Not on filedocumented in this encounter Care Teams Linen Keeper Relationship Specialty Start Date End Date Altaf Hoover MD PCP - General 04/19/11 09/18/[address] [place] [address] documented as of this encounter
--- OUTSIDE RECORDS SUMMARY | 2021-12-17 01:02 | XMS_ITS | Encounter Summary ---
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 fear the discourse. His family reports they will bring a list of medications to the ED. Upon being told that he was going to stay in the ED, Samy became very agitated and angry, and after some verbal outbursts and posturing, responded to verbal deescalation and seroquel. Psychiatric Review of Systems: Sustained Depressed Mood: No Sustained Elevated Mood: No Sustained Irritable Mood: Yes Flashbacks: No Nightmares: No Panic Attacks: No Chronic Worry: No Psychotic Symptoms: No Obsessions/Compulsions: No Violence: No Self Harm: No Suicide Risk Factors on Day of ED Presentation: Enduring Factors: chronic mental health problems, limited coping skills, poor emotional regulation, impulsive or aggressive tendenancies and history of trauma Dynamic Factors: recent substance abuse and access to firearms Protective Factors: family and community support, protective cultural/confucianist beliefs and future orientation Access to Firearms: Patient's gun was removed from his car Other Psychiatric History: Prior diagnoses: Bipolar disorder, PTSD Past hospitalization and location: unclear Suicide attempt details: denies Past psychiatric medications: (include dose, length of use, response, reason for stopping) Reports only paxil has helped, but then stated he does not take that Substance Use History/Treatment: Per brother, patient has alcohol use disorder Treatment history currently unclear Outpatient Medications: No current facility-administered medications on file prior to encounter. Current Outpatient Medications on File Prior to Encounter Medication Sig Dispense Refill ??? clopidogrel (PLAVIX) 75 mg Tablet Take 75 mg by mouth Daily. ??? aspirin 81 mg Tablet, Delayed Release (E.C.) Take 81 mg by mouth Daily. ??? lisinopril (PRINIVIL;ZESTRIL) 5 mg Tablet Take 5 mg by mouth Daily. ??? metoprolol succinate (TOPROL-XL) 25 mg Tablet Sustained Release 24 hr Take 25 mg by mouth Daily. ??? nicotine (NICODERM CQ) 14 mg/[address] 1 patch onto the skin Daily. ??? atorvastatin (LIPITOR) 40 mg Tablet Take 40 mg by mouth Daily. ??? isosorbide mononitrate (IMDUR) 60 mg Tablet Sustained Release 24 hr Take 60 mg by mouth daily. 11 ??? atorvastatin (LIPITOR) 20 mg Tablet Take 20 mg by mouth daily. 4 ??? glipiZIDE (GLUCOTROL) 5 mg Tablet Take 5 mg by mouth nightly. 4 ??? metFORMIN (GLUCOPHAGE) 1,000 mg Tablet Take 1,000 mg by mouth nightly. 4 ??? PARoxetine (PAXIL) 20 mg Tablet Take 20 mg by mouth every morning. ??? omeprazole (PRILOSEC) 40 mg Capsule, Delayed Release(E.C.) Take 40 mg by mouth daily. ??? naproxen sodium (ANAPROX) 220 mg Tablet Take 880 mg by mouth 3 times daily (with meals). Allergies: Allergies Allergen Reactions ??? Doxycycline ??? Other [Unclassified Drug] Nausea And Vomiting Had an allergic reaction to an antibiotic but does not know the name Problem List: Patient Active Problem List Diagnosis Code ??? Chronic midline low back pain without sciatica M54.5, G89.29 Past Medical/Surgical History: Past Medical History: Diagnosis Date ??? Chronic midline low back pain without sciatica 02/08/2017 Past Surgical History: Procedure Laterality Date ??? PRO UPPER GI ENDOSCOPY, BIOPSY 04/26/2011 EGD WITH BIOPSY performed by KIRSTEN DAMON at [facility] END[facility]COPY Family Medical/Psychiatric History: Unclear at this time Social History: Patient is retired. Currently . 2 adult kids. Has a brother who works in the [place] [employer] [facility]. 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 Currently there are some issues withthe regarding previous infidelities on her part. Vitals (24hr Range): Patient Vitals for the past 24 hrs: Temp Pulse Resp BP SpO2 O2 Device 07/04/182036 36.6 ??C (97.9 ??F) 100 20 (!) 145/91 95 % RA Musculoskeletal System: normal gait and balance and ambulates independently Mental Status Exam: ?? Appearance: age appropriate, casually dressed and overweight ?? Behavior: good eye contact and initially cooperative with interview, but became hostile and uncooperative ?? Speech: hyperverbal, loud, pressured and profane ?? Language: fluent in peruvian ?? Mood: fine ?? Affect: irritable and labile ?? Thought Process: tangential ?? Associations: flight of ideas ?? Thought Content: denied homicidal ideation and denied suicidal ideation ?? Perception: denied auditory hallucinations denied visual hallucinations not observed responding to internal stimuli ?? Orientation: grossly intact by interview ?? Attention/Concentration: distractable and unable to attend interview ?? Cognition: grossly intact by interview ?? Memory: recent and remote memory grossly intact ?? Fund of Knowledge: appropriate for age and level of functioning ?? Insight: poor ?? Judgment: poor Wish to be : Have you wished you were or wished you could go to sleep and not wake up?: Yes(07/04/182039) Suicidal Thoughts: Have you had any actual thoughts of killing yourself?: Yes (07/04/182039) Suicidal Thoughts with Method (without Specific Plan or Intent to Act): Have you been thinking abouthow you might do this?: Yes (07/04/182039) Suicidal Intent (without Specific Plan): Have you had these thoughts and had some intention of acting on them?: Yes (07/04/182039) Suicidal Intent with Specific Plan: Have you started to work out or worked out the details of how tokill yourself? Do you intend to carry out this plan?: Yes (07/04/182039) Suicide Behavior Question: Have you ever done anything, started to do anything, or prepared to do anything to end your life?: Yes (07/04/182039) Was this within the past 3 months?: No (07/04/182039) Labs: Psychiatry Labs (Last 24 hours): Preg: No results found for: HCGQUAL, HCGQUANT Heme: Lab Results Component Value Date WBC 10.2 (H) 07/04/2018 HGB 16.5 07/04/2018 HCT 46.9 07/04/2018 PLATELET 264 07/04/2018 MCV 88.0 07/04/2018 NEUTROABS 7.03 (H) 07/04/2018 No results found for: HA1C, SEDRATE Chem: Lab Results Component Value Date NA 138 07/04/2018 K 3.9 07/04/2018 CL 100 07/04/2018 CO2 21 (L) 07/04/2018 BUN 17 07/04/2018 GLUCOSE 279 (H) 07/04/2018 Lab Results Component Value Date CALCIUM 9.8 07/04/2018 LFTs: Lab Results Component Value Date ALT 31 07/04/2018 AST 19 07/04/2018 ALKPHOS 83 07/04/2018 BILITOT 0.3 07/04/2018 Coags: No results found for: PTT, PT, INR Thyroid: No results found for: TSH, [id number], TT4 Lipids and HgbA1C: No results found for: CHLPL, HDL, CHOLHDL, LDLCHOL, LDLDIRECT, TRIG No results found for: HA1C Vit Lvls: No results found for: [id number], SFOLATE UA: No results found for: GLUCOSEU, KETONESUA, PROTEINUADIP, BLOODUADIP, LEUKOESTERUA, NITRATEUA, WBCUA (May not represent most recent UA results. See eD-H labs for more details.) Tox: Lab Results Component Value Date ETHANOL 1,337 (H) 07/04/2018 ACTMNPHEN <5 (L) 07/04/2018 SALICYLATE <20 07/04/2018 No results found for: UDAUSCREEN Rx Lvls: No results found for: LITHIUM, CARBAMAZEPIN, VALPROATE, LAMOTRIGINE, CLOZAPINE Assessment: (including Suicide Risk Assessment) Samy Patricio Jr. is a 52 y.o. Male who [place] [facility] [place] suicidal ideations with possible plan to shoot himself, per therapist who called ahead. Samy's family has since removed his gun from [employer]. Samy is here following a recent stressor of finding out his of 30 years had cheated on him. He was exhibiting manic symptoms as well as reporting/others reporting concerning behaviors including suicidal statements with plan to shoot himself, driving while consuming alcohol, and aggression.The patient on examination was minimizing symptoms and giving conflicting information. Samy will continue to be assessed for alcohol withdrawal symptoms. He became verbally aggressive and physically threatening requiring security presence and PRN medications. His family is uncomfortable petitioning the IEA, but verbalized that the patient is a safety risk and non accepting of treatment. The patient himself has given conflicting information regarding safety and treatment. We will pursue IEA. Current Suicide Assessment: Patient's suicide risk is elevated given worsening depression, recent stressors, and recent suicidal thoughts. Patient's baseline risk is elevated from that of the general population given chronic mental health problems, poor emotional regulation, impulsive tendencies, history of substance use, and history of previous suicidal ideations. Risk mitigated by observation in ED, medication management, and IEA admission. Diagnosis: <principal problem not specified> Plan: # Jered ?? Seroquel 100mg Q HS # alcohol use disorder ?? AAS ?? Thiamine ?? Multivitamin # Nicotine use disorder ?? Nicotine patch # Diabetes mellitus ?? Glyburide 5mg nightly ?? Metformin 1000mg PO BID # GERD ?? Pantoprazole 40mg daily # Agitation ?? Haldol 5mg, Ativan 2mg, and benadryl 50mg PO or IM ?? Physical restraints should patient not respond to chemical restraints # IEA ?? Patient is on IEA status ?? Patient cannot leave AMA Signed By: Pat Rey MD 07/04/2018 Associated attestation - Orin Robb MD - 07/05/2018 8:20 PM EDT I discussed this patient's situation with the resident while the patient was in the emergency room but did not see the patient. I contributed to the formulation and treatment planning as documented in the resident's note. The assessment and plan were formulated in discussion with me and I agree with them as documented. documented in this encounter Plan of Treatment Upcoming Encounters Date Type Specialty Care Team Description 01/26/2022 Office Visit Ophthalmology Tania Gates , OD [facility] ER OPHTHALMOLOGY [place], [place] [phone] (Wo rk) Scheduled Procedures Name [...] MORSELIZED (WRVU *) MODIFIER K2 MEDICAL - ABRAMS STENOSIS & HNP & MYELOPATHY documented as of this encounter Procedures Procedure Name Priority Date/Time Associated Comments Diagnosis POCT GLUCOSE Routine 07/05/2018 8:12 AM Results f or this EDT procedure are i n the results section. POCT GLUCOSE Routine 07/04/2018 11:51 Results for this PM EDT procedure are i n the results section. EKG 12-LEAD STAT 07/04/2018 10:00 Results for this PM EDT procedure are i n the results section. ACETAMINOPHEN LEVEL STAT 07/04/2018 9:47 PM Re sults for this EDT procedure are i n the results section. SALICYLATE STAT 07/04/2018 9:47 PM Results f or this EDT procedure are i n the results section. HEMOGRAM STAT 07/04/2018 9:00 PM Results f or this EDT procedure are i n the results section. DIFFERENTIAL, STAT 07/04/2018 9:00 PM Results for this AUTOMATED EDT procedure are i n the results section. BLUE TUBE HOLD STAT 07/04/2018 9:00 PM Results for this EDT procedure are i n the results section. CBC (WITH DIFF) STAT 07/04/2018 9:00 PM EDT ETHANOL LEVEL STAT 07/04/2018 9:00 PM Results for this EDT procedure are i n the results section. HEPATIC FUNCTION PANEL STAT 07/04/2018 9:00 PM Results for this EDT procedure are i n the results section. BASIC METABOLIC PANEL STAT 07/04/2018 9:00 PM Results for this (NON-FASTING) EDT procedure are in the results section. RAPID DRUG SCREEN, STAT 07/04/2018 8:48 PM Res ults for this URINE (MAYCO REQUEST) EDT procedur e are in the results section. RAPID DRUG SCREEN W/O STAT 07/04/2018 8:48 PM Results for this CONFIRMATION, URINE EDT procedur e are in the results section. documented in this encounter Results POCT Glucose (07/05/2018 8:12 AM EDT) athologist Signature POC Glucose 141 65 - 199 [facility] Comment: Supplemental ranges: <140 mg/dL before meals <180 mg/dL all other times of the day Specimen Anatomical Collection Method Collection Time Receive d Time (Source) Location / / Volume Laterality Blood specimen 07/05/2018 8:12 AM 019 8:12 (specimen) EDT AM EDT Mihai Crain MD POINT OF CARE TEST ORDERABLE S Performing Organization Address City/State/[place] [address] POCT Glucose (07/04/2018 11:51 PM EDT) athologist Signature POC Glucose 145 65 - 199 [facility] Comment: Supplemental ranges: <140 mg/dL before meals <180 mg/dL all other times of the day Specimen Anatomical Collection Method Collection Time Receive d Time (Source) Location / / Volume Laterality Blood specimen 07/04/2018 11:51 9 (specimen) PM EDT 11:51 PM EDT Emergency Dept POINT OF CARE TEST ORDERABLE S Performing Organization Address City/State/[place] [address] EKG 12 Lead (07/04/2018 10:00 PM EDT) Component Value Ref Range Test Analysis Performed Pathologis t Method Time At Signature Ventricular rate 84 BPM MUSE SYSTEM Atrial Rate 84 BPM MUSE SYSTEM P-R Interval 170 ms MUSE SYSTEM QRS Duration 104 ms MUSE SYSTEM Q-T Interval 368 ms MUSE SYSTEM QTC Calculated 434 ms MUSE SYSTEM (Bezet) Calculated P Mcfaddin 61 degrees MUSE SYSTEM Calculated R Mcfaddin 48 degrees MUSE SYSTEM Calculated T Mcfaddin 22 degrees MUSE SYSTEM INTERPRETATION Normal sinus rhythm MUSE SYSTEM Normal ECG When compared with ECG of 04-APR-2017 00:04, No significant change was found Confirmed by MD Galan Timothy ([id number]) on 07/05/2018 8:06:52 A M Specimen Anatomical Collection Method Collection Time Receive d Time (Source) Location / / Volume Laterality 07/04/2018 10:00 07/05/2018 8:06 PM EDT AM EDT Ruth Velazquez MD ECG ORDERABLES Performing Organization Address City/[facility]/ZIP Code Phon e Number MUSE SYSTEM Salicylate (07/04/2018 9:47 PM EDT) P athologist Signature Salicylate Lvl <20 mg/L [facility] Comment: Therapeutic Range: ??< 200 mg/L Arthritic Therapy: ??150-300 mg/L Toxic: ?> 350 mg/L ??Concentrations > 500 mg/L may be an i ndication for alkalinization of urine. Concentrations > 800 mg/L are often an i ndication for hemodialysis. Specimen Anatomical Collection Method Collection Time Receive d Time (Source) Location / / Volume Laterality Blood specimen 07/04/2018 9:47 PM 019 9:47 (specimen) EDT PM EDT Resulting Agency Comment Spec In Lab Ruth Velazquez MD CHEMISTRY ORDERABLES Performing Organization Address [facility] [place] [address] (ABNORMAL) Acetaminophen level (07/04/2018 9:47 PM EDT) athologist Signature Acetamin Lvl <5 (L) 10 - 30 [facility] mg/L [facility] Comment: Levels >150 mg/L at 4 hours post ingesti on or >75 mg/L at 8 hours post ingestion are often an indication for N- Acetylcysteine. Specimen Anatomical Collection Method Collection Time Receive d Time (Source) Location / / Volume Laterality Blood specimen 07/04/2018 9:47 PM 019 9:47 (specimen) EDT PM EDT Resulting Agency Comment Spec In Lab Ruth Velazquez MD CHEMISTRY ORDERABLES Performing Organization Address City/[facility]/ZIP [facility] Phon e Number [address] Blue Tube HOLD (07/04/2018 9:00 PM EDT) P athologist Signature Blue Hold Sample in [facility]. [facility] Specimen Anatomical Collection Method Collection Time Receive d Time (Source) Location / / Volume Laterality Blood specimen Venous Draw / 07/04/2018 9:00 PM 2018 9:07 (specimen) Unknown EDT PM EDT Devon WALTON HEMATOLOGY ORDERABLES Performing Organization Address City/State/ZIP [place] [address] (ABNORMAL) Differential, Automated (07/04/2018 9:00 PM EDT) [facility] Method Time Signature Neutrophils % 68.8 % [facility] Neutr Abs (ANC) 7.03 (H) 1.70 - [facility] 6.10 [facility] x10(3)/[facility] LABORATORY Lymphocytes % 25.7 % [facility] Lymphocytes Abs 2.6 0.9 - 3.2 [facility] x10(3)/[facility] LABORATORY Monocytes % 3.8 % [facility] Monocyte Abs 0.4 0.3 - 0.9 [facility] x10(3)/[facility] LABORATORY Eosinophils % 0.5 % [facility] Eosinophils Abs 0.0 0.0 - 0.4 [facility] x10(3)/[facility] LABORATORY Basophils % 0.4 % [facility] Basophils Abs 0.0 0.0 - 0.1 [facility] x10(3)/[facility] LABORATORY Immature Gran % 0.80 % [facility] Comment: Immature granulocytes(IG's)percentage an d absolute count will include metamyelocytes, myelocytes, and promyelo cytes. Blood smears from CBCs yielding IG's will be scanned manually for concor dance. If this scan disagrees with the automated IG or if promyelocytes are not ed, a manual differential will be performed. Julianne Gran Abs 0.08 (H) 0.00 - 0.04 x10(3)/[facility] LABORATORY Specimen Anatomical Collection Method Collection Time Receive d Time (Source) Location / / Volume Laterality Blood specimen 07/04/2018 9:00 PM 019 9:07 (specimen) EDT PM EDT Resulting Agency Comment Spec In Lab Devon WALTON HEMATOLOGY ORDERABLES Performing Organization Address City/State/[place] [address] (ABNORMAL) Hemogram (07/04/2018 9:00 PM EDT) Analysis Performed At Patho logist Time Signature WBC 10.2 (H) 4.0 - 9.5 ADRY [facility] x10(3)/[facility] LABORATORY RBC 5.33 4.58 - [facility] 5.54 [facility] x10(6)/[facility] LABORATORY Hemoglobin 16.5 13.7 - [facility] [place] 16.5 gm/dL [facility] Hematocrit 46.9 40.5 - [facility] [place] 48.5 % [facility] MCV 88.0 82.9 - [facility] 93.1 [facility] LABORATORY MCH 31.0 27.5 - [facility] 32.1 pg [facility] MCHC 35.2 32.0 - [facility] 35.7 gm/dL [facility] Platelets 264 145 - 357 [facility] x[facility](3[facility] LABORATORY RDWSD 37.7 36.0 - [facility] [place] 45.0 [facility] LABORATORY RDWCV 11.8 11.4 - [facility] 13.8 % [facility] MPV 9.1 7.6 - 12.9 [facility] nRBC % Auto 0.0 % [facility] nRBC Abs Auto 0.000 0.000 - [facility] [place] 0.000 [facility] x10(3)/[facility] LABORATORY Specimen Anatomical Collection Method Collection Time Receive d Time (Source) Location / / Volume Laterality Blood specimen 07/04/2018 9:00 PM 019 9:07 (specimen) EDT PM EDT Resulting Agency Comment Spec In Lab Devon WALTON HEMATOLOGY ORDERABLES Performing Organization Address City/State/[place] [address] Hepatic Function Panel (07/04/2018 9:00 PM EDT) athologist Signature Total Protein 7.1 6.1 - 8.0 [facility] [place] gm/dL [facility] Albumin 4.1 3.2 - 5.2 [facility] [place] gm/dL [facility] AST 19 0 - 39 [facility] unit/L [facility] ALT 31 0 - 55 [facility] unit/L [facility] Alk Phos 83 40 - 120 [facility] unit/L [facility] Total 0.3 0.2 - 1.3 [facility] Bilirubin mg/dL [facility] Bili, Direct 0.1 0.0 - 0.3 [facility] mg/dL [facility] Specimen Anatomical Collection Method Collection Time Receive d Time (Source) Location / / Volume Laterality Blood specimen 07/04/2018 9:00 PM 019 9:07 (specimen) EDT PM EDT Resulting Agency Comment Spec In Lab Ruth Velazquez MD CHEMISTRY ORDERABLES Performing Organization Address City/[facility]/[place] [address] (ABNORMAL) Ethanol Level (07/04/2018 9:00 PM EDT) athologist Signature Ethanol Lvl 1,337 (H) <=99 mg/L [facility] Comment: Greater than 800 mg/L (0.08%) should be considered intoxicated. 3400 to 4500 mg/L (0.34 - 0.45%) is cons idered severe intoxication. Greater than 5500 mg/L (0.55%) is usuall y fatal. Specimen Anatomical Collection Method Collection Time Receive d Time (Source) Location / / Volume Laterality Blood specimen 07/04/2018 9:00 PM 019 9:07 (specimen) EDT PM EDT Resulting Agency Comment Spec In Lab Ruth Velazquez MD CHEMISTRY ORDERABLES Performing Organization Address City/[facility]/ZIP [facility] [place] [address] (ABNORMAL) Basic Metabolic Panel (non-fasting) (07/04/2018 9:00 PM EDT) athologist Signature Glucose Lvl 279 (H) 65 - 199 [facility] mg/dL [facility] Comment: Diabetes: >=200 mg/dL plus symp toms BUN 17 10 - 20 mg/dL [facility] Creatinine 1.27 0.80 - 1.50 mg/dL [facility] Sodium 138 135 - 145 mmol/L [facility] Potassium 3.9 3.5 - 5.0 mmol/L [facility] Comment: Please note: ??Patients with WBC >100,00 0 may have falsely elevated Potassium levels. ??For accurate Potassium quantif ication in these patients send serum separator tube (gold top) for subsequent determinations. ??Contact the Clinical Chemistry Laboratory if there are any qu estions. Chloride 100 98 - 107 mmol/L [facility] CO2 21 (L) 22 - 31 mmol/L [facility] Anion Gap 17 (H) 5 - 15 mmol/L [facility] Calcium 9.8 8.5 - 10.5 mg/dL [facility] Estimated GFR 65 >=60 mL/min/1.73 m?? [facility] Comment: The eGFR was calculated using the CKD-EP I equation. As with all creatinine based estimates of kidney function, eGFR values calculated with the CKD-EPI equation are not accurate in patients wi th acute kidney failure, extremes of body mass or the acutely ill. [email or web address] eGFR 75 >=60 mL/min/1.73 m?? [facility] Comment: The eGFR was calculated using the CKD-EP I equation. As with all creatinine based estimates of kidney function, eGFR values calculated with the CKD-EPI equation are not accurate in patients wi th acute kidney failure, extremes of body mass or the acutely ill. [email or web address] Specimen Anatomical Collection Method Collection Time Receive d Time (Source) Location / / Volume Laterality Blood specimen 07/04/2018 9:00 PM 019 9:07 (specimen) EDT PM EDT Resulting Agency Comment Spec In Lab Ruth Velazquez MD CHEMISTRY ORDERABLES Performing Organization Address City/State/ZIP [place] [address] (ABNORMAL) Rapid Drug Screen w/o Confirmation, Urine (07/04/2018 8:48 PM EDT) [facility] Method Time Signature U Barbiturates None None [facility] Screen Detected Detected [facility] Comment: The barbiturate screen detects barbitura [place] at concentrations >200 ng/mL. Note: Not all barbiturates cross-react equally with antibody used in this screen. A ? Presumptive Positive? result indicates that the screening result was positive but has not yet been confirmed by a highly-specific method. As with any screen, occasional false positive re sults from cross-reacting substances may occur. Not for Medico-Legal Purposes. U Benzodiazepines Screen None Detected None Detected [facility] Comment: The benzodiazepines screen detects benzo diazepines at concentrations >100 ng/mL. Not all benzodiazepines cross-chris ct equally with antibody used in this screen. Due to the low dosage of clonaze karina, false negatives may be obtained due to low concentration of clonazepam m etabolites. A ? Presumptive Positive? result indicates that the screening result was positive but has not yet been confirmed by a highly-specific method. As with any screen, occasional false positive re sults from cross-reacting substances may occur. Not for Medico-Legal Purposes. U Cocaine Screen None Detected None Detected [facility] Comment: The cocaine metabolites screen detects b enzoylecgonine (Cocaine Metabolite) at concentrations >150 ng/mL. A ? Presumptive Positive? result indicates that the screening result was positive but has not yet been confirmed by a highly-specific method. As with any screen, occasional false positive re sults from cross-reacting substances may occur. Not for Medico-Legal Purposes. U Methadone Metabolites None Detected None Detected [facility] Comment: The methadone metabolite screen detects EDDP (major methadone metabolite) at concentrations >100 ng/mL. A ? Presumptive Positive? result indicates that the screening result was positive but has not yet been confirmed by a highly-specific method. As with any screen, occasional false positive re sults from cross-reacting substances may occur. Not for Medico-Legal Purposes. U Opiate Screen None Detected None Detected [facility] Comment: The opiates screen detects opiates at co ncentrations >300 ng/mL. Please note that oxycodone, oxymorphone, fentanyl, tramadol, and other synthetic opioids are not detected by e opiate screen. A ? Presumptive Positive? result indicates that the screening result was positive but has not yet been confirmed by a highly-specific method. As with any screen, occasional false positive re sults from cross-reacting substances may occur. Not for Medico-Legal Purposes. U Cannabinoid Screen None Detected None Detected [facility] Comment: The marijuana metabolites screen detects the THC metabolite (34-fju-3-carboxy-delta 9-THC) at concen trations >20 ng/mL. A ? Presumptive Positive? result indicates that the screening result was positive but has not yet been confirmed by a highly-specific method. As with any screen, occasional false positive re sults from cross-reacting substances may occur. Not for Medico-Legal Purposes. U Oxycodone Screen None Detected None Detected [facility] Comment: The oxycodone screen detects oxycodone a nd oxymorphone at concentrations >100 ng/mL. A ? Presumptive Positive? result indicates that the screening result was positive but has not yet been confirmed by a highly-specific method. As with any screen, occasional false positive re sults from cross-reacting substances may occur. Not for Medico-Legal Purposes. U Buprenorphine Screen None Detected None Detected [facility] Comment: The buprenorphine screen detects bupreno rphine at concentrations >5 ng/mL. A ? Presumptive Positive? result indicates that the screening result was positive but has not yet been confirmed by a highly-specific method. As with any screen, occasional false positive re sults from cross-reacting substances may occur. Not for Medico-Legal Purposes. U Fentanyl Screen None Detected None Detected [facility] Comment: The fentanyl screen detects fentanyl at concentrations >2 ng/mL. A ? Presumptive Positive? result indicates that the screening result was positive but has not yet been confirmed by a highly-specific method. As with any screen, occasional false positive re sults from cross-reacting substances may occur. Not for Medico-Legal Purposes. U Tricyclics Screen None Detected None Detected [facility] Comment: The tricyclics screen detects tricyclic antidepressants at concentrations >150 ng/mL. Not all tricyclics cross-react eq ually with the antibody used in this screen. A ? Presumptive Positive? result indicates that the screening result was positive but has not yet been confirmed by a highly-specific method. As with any screen, occasional false positive re sults from cross-reacting substances may occur. Not for Medico-Legal Purposes. U Ethanol Screen Positive (A) None Detected [facility] Comment: This urine ethanol assay detect s ethanol at concentrations >/= 100 mg/L. U Amphetamines Screen None Detected None Detected [facility] Comment: The amphetamine screen detects d-ampheta mine and d-methamphetamine at concentrations >300 ng/mL. A ? Presumptive Positive? result indicates that the screening result was positive but has not yet been confirmed by a highly-specific method. As with any screen, occasional false positive re sults from cross-reacting substances may occur. Not for Medico-Legal Purposes. U Adulterants Screen Suspected (A) None Detected [facility] Comment: An adulteration screen performed on this urine sample produced a result that is suspicious for adulteration or dilution. Urine dilution or adulteration can produce false negative or positive drug screen results. All urine samples submitted for urine drugs of abuse rafy sis are tested for creatinine concentration, pH, and for the presence of oxidants, nitrit es, and chromate. Specimen Anatomical Collection Method Collection Time Receive d Time (Source) Location / / Volume Laterality Urine specimen 07/04/2018 8:48 PM 019 8:58 (specimen) EDT PM EDT Resulting Agency Comment Spec In Lab Devon WALTON CHEMISTRY ORDERABLES Performing Organization Address City/State/[place] [address] Rapid Drug Screen, Urine (MAYCO Request) (07/04/2018 8:48 PM EDT) [facility] Method Time Signature MAYCO Conf No [facility] MAYCO Requested See Comment [facility] Comment: Refer to Rapid Drug Screen w/o Confirmation, Urine for results. Specimen Anatomical Collection Method Collection Time Receive d Time (Source) Location / / Volume Laterality Urine specimen 07/04/2018 8:48 PM 019 8:58 (specimen) EDT PM EDT Resulting Agency Comment Spec In Lab Ruth Velazquez MD URINE ORDERABLES Performing Organization Address City/State/[place] [address] documented in this encounter Visit Diagnoses Diagnosis Emotional crisis Other adjustment reaction with predomina nt disturbance of other emotions documented in this encounter Administered Medications Inactive Administered Medications - up to 3 most recent administrations Medication Order MAR Action Action Date Dose Rate Site aspirin chewable tablet 81 mg Given 07/05/2018 9:18 AM EDT 81 mg 81 mg, Oral, ONCE, 1 dose, On Mon07/05/18 at 0856, STAT atorvastatin (LIPITOR) tablet 40 mg 40 mg, Oral, EVERY EVENING, First dose o n Mon07/05/18 at 1700, Until Discontinued, Routine clopidogrel (PLAVIX) tablet 75 mg Given 07/05/2018 9:18 AM EDT 75 mg 75 mg, Oral, ONCE, 1 dose, On Mon07/05/18 at 0856, STAT diphenhydrAMINE (BENADRYL) injection 25 mg 25 mg, Intramuscular, ONCE PRN, 1 dose, Starting on Mon07/04/18 at 2306, Until Mon07/05/18 at 1603, agitation, STAT glyBURIDE (DIABETA) tablet 5 mg Given 07/04/2018 11:48 PM EDT 5 mg 5 mg, Oral, NIGHTLY, First dose on Mon07/05/18 at 0100, Until Discontinued, Consider holding dose if patient is not eating., Routine haloperidol lactate (HALDOL) injection 5 mg 5 mg, Intramuscular, ONCE PRN, 1 dose, S tarting on Mon07/04/18 at 2305, Until Migd[place] 07/05/18 at 1603, Agitation, If medicatio n ordered subcutaneously, do not administer more than 2 mL as a single injection., Routine isosorbide mononitrate (IMDUR) CR tablet 60 mg Given 07/05/2018 1:44 PM EDT 60 mg 60 mg, Oral, EVERY MORNING, 1 dose, First dose on Migdalia 07/05/18 at 0930, DO NOT CRUSH OR OPEN, Routine LORazepam (ATIVAN) injection 1-3 mg 1-3 mg, Intravenous, EVERY 4 HOURS PRN, Starting on Mon07/04/18 at 2318, Until Migd[place] 07/05/18 at 1603, alcohol/benzodiazepine withdrawal- un complicated, When given intravenously, the rate of administration should not e xceed 2 mg/minute with ermergency equipment available. Per asse ssment scale for uncomplicated withdrawal from alcohol. May give IV if unable to take PO. May gi ve IM if no IV access. Medication should be administered at [address] st every 4 hours: For withdrawal score of 5-7, give 1 mg PO or IV or IM: admini ster every 4 hours. For withdrawal score of 8-10, give 2 mg PO or IV or IM: administer every 4 hours. For withdrawal score of 11 or greater, give 3 mg PO or IV or IM: administer every 4 hours. + If withdrawal score remains 11 or greater f or two consecutive assessment periods, call provider. + If patient has had seizures in previous 8 hours and has gone 4 hours without medications, give 3 mg PO or IV or IM., Routin e LORazepam (ATIVAN) injection 1-3 mg 1-3 mg, Intramuscular, EVERY 4 HOURS PRN , Starting on Mon07/04/18 at 2318, Until Migdalia 07/05/18 at 1603, alcohol/benzodiazepine withdrawal - uncomplicated, Per assessment scale for uncomplicated withd anh from alcohol. May give IV if unable to take PO. May give IM if no IV access. Medication should be administered at least every 4 hours: For withdrawal score o f 5-7, give 1 mg PO or IV or IM: administer every 4 hours. For withdrawal score of 8-10, give 2 mg PO or IV or IM: administer every 4 hours. For withdra wal score of 11 or greater, give 3 mg PO or IV or IM: administer every 4 hours. + If withdrawal score remains 11 or greater for two consecutive assessment periods, call provider. + If patient has had seizures in previous 8 hours and has gone 4 hours wi thout medications, give 3 mg PO or IV or IM., Routine LORazepam (ATIVAN) injection 2 mg 2 mg, Intramuscular, ONCE PRN, 1 dose, S tarting on Mon07/04/18 at 2306, Until Mon07/05/18 at 1603, agitation, Routine LORazepam (ATIVAN) tablet 1-3 mg 1-3 mg, Oral, EVERY 4 HOURS PRN, Startin g on Mon07/04/18 at 2318, Until Mon07/05/18 at 1603, alcohol/benzodiazepine withdraw al- uncomplicated, Per assessment scale for uncomplicated withdrawal from alcohol. M ay give IV if unable to take PO. May give IM if no IV access. Medication should be administered at least every 4 hours: For withdrawal score of 5-7, give 1 mg P O or IV or IM: administer every 4 hours. For withdrawal score of 8-10, give 2 mg PO or IV or IM: administer every 4 hours. For withdrawal score of 11 or greater, give 3 mg PO or IV or IM: administer every 4 hours. + If withdrawal score remains 11 or gre ater for two consecutive assessment periods, call provider. + If patient has healy d seizures in previous 8 hours and has gone 4 hours without medic ations, give 3 mg PO or IV or IM., Routine metFORMIN (GLUCOPHAGE) tablet 1,000 mg Given 07/05/2018 9:18 AM EDT 1,000 mg 1,000 mg, Oral, 2 TIMES DAILY WITH MEALS, First dose (after last modification) on Mon07/04/18 at 2330, Until Discontinued, Routine Given 07/04/2018 11:48 PM EDT 1,000 mg metoprolol succinate (TOPROL-XL) XL tablet 25 Given 9:18 AM EDT 25 mg mg 25 mg, Oral, DAILY, First dose on Mon07/05/18 at 0900, Until Discontinued, DO NOT CRUSH OR OPEN, Routine nicotine (NICODERM CQ) 14 Given 07/04/2018 10:24 PM EDT 28 mg 10- Arm Upper (Right) mg/24 hr patch 28 mg 28 mg (2 patch), Transdermal, ONCE, 1 dose, On Mon07/04/18 at 2224, STAT pantoprazole (PROTONIX) tablet 40 mg Given 07/04/2018 11:48 PM EDT 40 mg 40 mg, Oral, DAILY, First dose on Mon07/04/18 at 2330, Until Discontinued, DO NOT CRUSH OR OPEN, Routine predniSONE (DELTASONE) tablet 30 mg Given 07/05/2018 10:03 AM EDT 30 mg 30 mg, Oral, DAILY, First dose on Mon07/05/18 at 0951, Until Discontinued, STAT QUEtiapine (SEROquel) tablet 100 mg Given 07/04/2018 11:22 PM EDT 100 mg 100 mg, Oral, ONCE, 1 dose, On Mon07/04/18 at 2320, STAT documented in this encounter Active and Recently Administered Medications Times are shown in EDT. Scheduled Medication Order 07/03/2018 07/04/2018 07/05/2018 aspirin chewable tablet 81 mg (COMPLETED) 917 (Given - Provider: Sandy Segura RN) 81 mg, Oral, ONCE, 1 dose, Mon07/05/18 at 0856, STAT atorvastatin (LIPITOR) tablet 40 mg 40 mg, Oral, EVERY EVENING, First dose o n Mon07/05/18 at 1700, Until Discontinued, Routine clopidogrel (PLAVIX) tablet 75 mg (COMPLETED) 917 (Given - Provider: Sandy Segura RN) 75 mg, Oral, ONCE, 1 dose, Migd[place] 07/05/18 at 0856, STAT glyBURIDE (DIABETA) tablet 5 mg 2348 (Gi mikie - Provider: Daniel Hernandez III, RN) 0100 (Not Given - Provider: Daniel barajas III, RN - Reason: See comment - Comment: given earlier per MD) 5 mg, Oral, NIGHTLY, First dose on Mon at 0100, Until Discontinued, Consider holding dose if patient is not eating., Routine isosorbide mononitrate (IMDUR) CR tablet 60 mg (COMPLETED) 1344 (Given - Provider: Sandy Segura RN) 60 mg, Oral, EVERY MORNING, 1 dose, Firs t dose on Mon07/05/18 at 0930, DO NOT CRUSH OR OPEN, Routine metFORMIN (GLUCOPHAGE) tablet 1,000 mg 2 348 (Given - Provider: Daniel Hernandez III, RN) 917 (Given - Provider: Sandy Bush erd, RN) 1,000 mg, Oral, 2 TIMES DAILY WITH MEALS , First dose on Mon07/04/18 at 2330, Until Discontinued, Routine metoprolol succinate (TOPROL-XL) XL tablet 25 mg 917 (Given - Provider: Sandy Segura RN) 25 mg, Oral, DAILY, First dose on Mon at 0900, Until Discontinued, DO NOT CRUSH OR OPEN, Routine nicotine (NICODERM CQ) 14 mg/24 hr patch 28 mg 2223 (Given - Provider: Daniel Hernandez III, GUILLAUME) 28 mg (2 patch), Transdermal, ONCE, 1 dose, Mon07/04/18 at 2224, STAT pantoprazole (PROTONIX) tablet 40 mg 234 8 (Given - Provider: Daniel Hernandez III, GUILLAUME) 40 mg, Oral, DAILY, First dose on Mon at 2330, Until Discontinued, DO NOT CRUSH OR OPEN, Routine predniSONE (DELTASONE) tablet 30 mg 1003 (Given - Provider: Sandy Segura RN) 30 mg, Oral, DAILY, First dose on Mon07/05/18 at 0951, Until Discontinued, STAT QUEtiapine (SEROquel) tablet 100 mg (COMPLETED) 2321 (Given - Provider: Daniel Hernandez III, RN) 100 mg, Oral, ONCE, 1 dose, Mon07/04/18 at 2320, STAT PRN Medication Order 07/03/2018 07/04/2018 07/05/2018 diphenhydrAMINE (BENADRYL) injection 25 mg 2346 (Not Given - Provider: Daniel Hernandez III, RN - Reason: See comment - Comment: Pt status changed) 25 mg, Intramuscular, ONCE PRN, 1 dose, Starting Mon07/04/18 at 2306, Until Mon07/05/18 at 1603, agitation, STAT haloperidol lactate (HALDOL) injection 5 mg 2346 (Not Given - Provider: Daniel Hernandez III, RN - Reason: See comment - Comment: Pt status changed) 5 mg, Intramuscular, ONCE PRN, 1 dose, S tarting Mon07/04/18 at 2305, Until Mon07/05/18 at 1603, Agitation, If medication ordered subcutaneously, do not administer more than 2 mL as a single injection., Routine LORazepam (ATIVAN) injection 1-3 mg(Linked Group 1) 1-3 mg, Intravenous, EVERY 4 HOURS PRN, Starting Mon07/04/18 at 2318, Until Migd[place] 07/05/18 at 1603, alcohol/benzodiazepine withdrawal- uncomplicated, When given intravenously, the rate of administration sh ould not exceed 2 mg/minute with ermerge ncy equipment available. Per assessment scale for uncomplicated withdrawal from alcohol. May give IV if unable to take PO. May give IM if no IV access. Medication should be administered at least every 4 hours: For withdrawal score of 5-7, give 1 mg PO or IV or IM: administer every 4 hours. For withdrawal score of 8-10, give 2 mg PO or IV or IM: administer every 4 hours. For withdrawal score o f 11 or greater, give 3 mg PO or IV or IM: administer every 4 hours. + If withdrawal score remains 11 or greater for two consecutive assessment periods, call prov ider. + If patient has had seizures in p revious 8 hours and has gone 4 hours without medications, give 3 mg PO or IV or IM., Routine LORazepam (ATIVAN) injection 1-3 mg(Linked Group 1) 1-3 mg, Intramuscular, EVERY 4 HOURS PRN , Starting Mon07/04/18 at 2318, Until Migd[place] 07/05/18 at 1603, alcohol/benzodiazepine withdrawal- uncomplicated, Per assessment scale for uncomplicated withdrawal fro m alcohol. May give IV if unable to take PO. May give IM if no IV access. Medication should be administered at least every 4 hours: For withdrawal score of 5-7, give 1 mg PO or IV or IM: administer e very 4 hours. For withdrawal score of 8-10, give 2 mg PO or IV or IM: administer every 4 hours. For withdrawal score of 11 or greater, give 3 mg PO or IV or IM: administer every 4 hours. + If with drawal score remains 11 or greater for t wo consecutive assessment periods, call provider. + If patient has had seizures in previous 8 hours and has gone 4 hours without medications, give 3 mg PO or IV or IM., Routine LORazepam (ATIVAN) injection 2 mg 2344 ( Not Given - Provider: Daniel M Hernandez III, RN - Reason: See comment - Comment: Pt status changed) 2 mg, Intramuscular, ONCE PRN, 1 dose, S tarting Mon07/04/18 at 2306, Until Migd[place] 07/05/18 at 1603, agitation, Routine LORazepam (ATIVAN) tablet 1-3 mg(Linked Group 1) 1-3 mg, Oral, EVERY 4 HOURS PRN, Startin g Mon07/04/18 at 2318, Until Migd[place] 07/05/18 at 1603, alcohol/benzodiazepine withdrawal- uncomplicated, Per assessment scale for uncomplicated withdrawal from alcohol . May give IV if unable to take PO. May give IM if no IV access. Medication should be administered at least every 4 hours: For withdrawal score of 5-7, give 1 mg PO or IV or IM: administer every 4 ho urs. For withdrawal score of 8-10, gi ve 2 mg PO or IV or IM: administer every 4 hours. For withdrawal score of 11 or greater, give 3 mg PO or IV or IM: administer every 4 hours. + If withdrawal sc ore remains 11 or greater for two consec utive assessment periods, call provider. + If patient has had seizures in previous 8 hours and has gone 4 hours without medications, give 3 mg PO or IV or IM., Routine Linked Groups Order Group 1: LORazepam (ATIVAN) tablet 1-3 mgJump to med 1-3 mg, Oral, EVERY 4 HOURS PRN, Startin g Mon07/04/18 at 2318, Until Migdalia 07/05/18 at 1603, alcohol/benzodiazepine withdrawal- uncomplicated
Per assessment scale for uncomplicated withdrawal from alcohol. May give IV if unab le to take PO. May give IM if no IV access. Medication should be administered at least every 4 hours:& nbsp; For withdrawal score of 5-7, give 1 mg PO or IV or IM: administer every 4 hours. For withdrawal score of 8-10, give 2 mg PO or IV or IM: admin ister every 4 hours. For withdrawal score of 11 or greater, give 3 mg PO or IV or IM: administer every 4 hours. + If withdrawal score remains 11 or greater for two consecutive asses sment periods, call provider. + If patient has had seizures in previous 8 hours and has gone 4 hours without medications, give 3 mg PO or IV or IM.
Routine Or LORazepam (ATIVAN) injection 1-3 mgJump to med 1-3 mg, Intravenous, EVERY 4 HOURS PRN, Starting 07/04/18 at 2318, Until Migd[place] 07/05/18 at 1603, alcohol/benzodiazepine withdrawal- uncomplicated
When given intravenously, the rate of administr ation should not exceed 2 mg/minute with ermergency equipment available. Per assessment scale for uncomplicated withdrawal from alcohol. May give IV if unable to take PO.&amp ;nbsp; May give IM if no IV access. Medication should be administered at least every 4 hours: For withdrawal score of 5-7, give 1 mg PO or IV or IM: administer every 4 hour s. For withdrawal score of 8-10, give 2 mg PO or IV or IM: administer every 4 hours. For withdrawa l score of 11 or greater, give 3 mg PO o r IV or IM: administer every 4 hours. + If withdrawal score remains 11 or greater for two consecutive assessment periods, call provid er. + If patient has healy d seizures in previous 8 hours and has gone 4 hours without medications, give 3 mg PO or IV or IM.
Routine Or LORazepam (ATIVAN) injection 1-3 mgJump to med 1-3 mg, Intramuscular, EVERY 4 HOURS PRN , Starting Mon07/04/18 at 2318, Until Migdalia 07/05/18 at 1603, alcohol/benzodiazepine withdrawal- uncomplicated
Per assessment scale for uncomplicated withdr awal from alcohol. May give I V if unable to take PO. May give IM if no IV access. Medication should be administered at least every 4 ho urs: For withdrawal score of 5-7, give 1 mg PO or IV or IM: administer every 4 hours. For withdrawal score of 8-10, give 2 mg PO or IV or IM: administer every 4 hours. &nbsp ; For withdrawal score of 11 or greater, give 3 mg PO or IV or IM: administer every 4 hours. + If withdrawal scor e remains 11 or greater for two consecut jeanna assessment periods, call provider. + If patient has had seizures in previous 8 hours and has gone 4 hours without medications, give 3 mg PO or IV or IM.
Routine documented in this encounter
--- OUTSIDE RECORDS SUMMARY | 2021-12-17 01:02 | XMS_ITS | Encounter Summary ---
:1965 Author Organization [facility] [place] [address] Care Team Providers Name Role Phone Sae Marr MD Primary Care Provider Encounter Details Date Type Department Care Team Description 08/06/2019 Telephone Cardiology Pramod Arana MD [facility] [place] [id number] CARDIOLOGY DEPT [phone] [place] [id number] (Wo rk) Social History Tobacco Use Types Packs/Day Years Used Date Current Every Day Smoker Cigarettes 2 Smokeless Tobacco: Never Used Alcohol Use Standard Drinks/Week Comments Yes 7 (1 standard drink = 0.6 oz pure alcoho l) Alcohol Habits Answer Date Recorded How often do you have a drink containing 4 or more times a w [place] 07/05/2018 alcohol? How many drinks containing alcohol do you have 10 or more 07/05/2018 on a typical day when you are drinking? How often do you have six or more drinks on one Daily or alfredito ost daily 07/05/2018 occasion? Comment: Not asked Sex Assigned at Date Recorded Not on file documented as of this encounter Miscellaneous Notes Telephone Encounter - Pramod Arana MD - 08/06/2019 12:18 AM EDT Telephone Triage Note Initial Contact Date: 08/06/2019 Initial Contact Time: 1218 Referring Provider: Dallas Gutierrez MD Patient Location: [facility] Presenting Symptoms per OSH: 53 year old man with a history of CAD, tobacco use, DM2, HLD on atorvastatin presenting to [facility] withinferior STEMI. Had a syncopal episode at home, brought in by EMS on transcutaneous pads. Currently on dopamine gtt.SBP 60-80s. ECG showing inferior GONZALES with reciprocal changes in the lateral leads. -- Initial plan was to give full dose lytic, full dose ASA, clopidogrel 300, heparin bolus and gtt. Intubate, start epi if needed for BP or HR; [employer] air not flying tonight, will likely come by ground -- Plan will be to send out STEMI alert page followed by construction or leak gang laborer alert page when he leaves [facility] andbring him to our ED first before the construction or leak gang laborer I reconnected with [facility] after the patient was given lytics: -- His GONZALES normalized. Patient's BP is up to 130/90s now, more alert and responsive 300 rectal aspirin 300 @ 0030 50 TNK 0030 Heparin bolus drip Wet on CXR Cr pending, 1.1-1.4 at baseline Plt normal Plan: 53 year old man with inferior STEMI s/p lytics, hemodynamically more stable and GONZALES resolved after thrombolytic; however, he is still having chest discomfort. Will be coming to our ED first before cathlab. Will send out STEMI alert & construction or leak gang laborer alert when he leaves [facility] (discussed with Dr. Merino). : [phone] Above recommendations/plans are based on my conversation with the referring provider. I have not personally interviewed or examined this patient. documented in this encounter Plan of Treatment Upcoming Encounters Date Type Specialty Care Team Description 01/26/2022 Office Visit Ophthalmology Tania Gates , OD [facility] OPHTHAL[facility]Y [place], [place] [address] (Wo rk) Scheduled Procedures Name [...] MORSELIZED (WRVU *) MODIFIER K2 MEDICAL - [place] STENOSIS & HNP & MYELOPATHY documented as of this encounter Visit Diagnoses Not on filedocumented in this encounter Care Teams Steam Meter Reader Relationship Specialty Start Date End Date Sae Marr MD PCP - General General Internal Medicine 08/06/[address] [place] [address] documented as of this encounter
--- OUTSIDE RECORDS SUMMARY | 2021-12-17 01:02 | XMS_ITS | Encounter Summary ---
:1965 Author Organization [facility] [place] [address] Care Team Providers Name Role Phone Altaf Hoover MD Primary Care Provider Encounter Details Date Type Department Care Team Description 04/26/2011 Surgery [place] [facility]en Damon, EGD WITH BIOPSY ([facility] Danika watts MD 2.49) [place] [address] [facility] [phone] GASTROENTEROLOGY DEPT. CENTER [place], [place] [address] Social History Tobacco Use Types Packs/Day Years Used Date Current Every Day Smoker Alcohol Use Standard Drinks/Week Comments Yes 0 (1 standard drink = 0.6 oz pure alcoho l) Alcohol Habits Answer Date Recorded How often do you have a drink containing 4 or more times a w [place] 07/05/2018 alcohol? How many drinks containing alcohol [...] Sign Reading Time Taken Comments Blood Pressure 112/67 04/26/2011 9:59 AM EST Pulse 77 04/26/2011 9:59 AM EST Temperature 36.6 ??C (97.9 ??F) 04/26/2011 8:16 AM EST Respiratory Rate 16 04/26/2011 9:59 AM EST Oxygen Saturation 96% 04/26/2011 9:59 AM EST Inhaled Oxygen Concentration - - Weight - - Height - - Body Mass Index - - documented in this encounter Discharge Instructions Discharge InstructionsPratima Strong RN - 04/26/2011 10:04 AM EST UPPER GI ENDOSCOPY WHAT TO EXPECT AT HOME YOUR RECOVERY This care sheet gives you a general idea about what to expect after the test. HOW CAN YOU CARE FOR YOURSELF AT HOME? ACTIVITY You have been given a period of recovery while at the hospital but you will still need to rest as much as you need to after you go home. Change from one position to the next slowly today ( lay to sit, sit to stand) You may loose your balance unexpectedly You should be able to go back to your usual activities the day after the test. Diet Small portions of foods that ordinarily won't upset your stomach. Be gentle with what you choose tostart with. Avoid gas producing foods for the next couple of days Drink plenty of fluids ( unless otherwise told not to) Medications You may have a sore throat. Ice chips, popsicles, over the counter throat lozenges or spay may helpnumb your throat. This procedure should not cause a fever. Other Instructions You may have received medications before and/during the procedure which effects your judgement, reaction time and decision making ability. FOR THE NEXT [address] OR OPERATE ANY MACHINERY DO NOT DRINK ALCOHOLIC BEVERAGES DO NOT SMOKE WHILE YOU ARE ALONE DO NOT SIGN LEGAL DOCUMENTS or make important decisions IV SITE may get red or tender this is normal. You may use warm compresses 20 minutes at a time on and off for the next day or so. If the tenderness +/or redness increases or foul drainage and a red streak occurs, please contact your PCP WHEN SHOULD YOU CALL FOR HELP? Call 911 anytime you think that you need emergency care. For example, call if: You passed out (lost consciousness). You cough up blood. You vomit blood or what looks like coffee grounds. You pass maroon or very bloody stools Call your doctor now or seek immediate medical attention if: You have trouble swallowing. You have belly pain. Your stools are black or tarlike or have streaks of blood. You are sick to your stomach or cannot keep fluids down. Watch closely for changes in your health, and be sure to contact your doctor IF Your throat still hurts after a day or two You do not get better as expected. Monday-Monday Clinic [phone] 8a-5p Same Day Endo [phone] 7a-8p Otherwise contact [phone] and ask to speak to the ticket dispatcher radiocommunications technician Follow-up care is a sanford part of your treatment and safety. Be sure to make and go to all appointments, and call your doctor if you are having problems. Instructions have been reviewed and patient expresses understanding Patient InstructionsKirsten Damon MD - 04/26/2011 9:53 AM EST Please see Recommendations in the Provation procedure report which is documented in the procedural note in [facility]. documented in this encounter Medications at Time of Discharge Medication Sig Dispensed Refills Start Date End Date metFORMIN (GLUCOPHAGE) Take 850 mg by mouth 0 02/08/2017 850 mg tablet daily. omeprazole (PRILOSEC) 40 40 MG = 1 0 07/14/2006 02/08/2017 mg capsule Capsule(s), PO, Once daily atorvastatin (LIPITOR) 40 40 MG = 1 Tablet(s), 0 07/14/2006 02/08/2017 mg tablet PO, Once daily aspirin 325 mg tablet 0 07/14/2006 Varenicline (CHANTIX) as directed, PO, as 0 07/1402/08/2017 0.5(11)-1(3X14) mg DsPk directed documented as of this encounter Progress Notes Pratima Strong RN - 04/26/2011 10:[address] Damon in to explain findings and plan. documented in this encounter H&P Notes Kirsten Damon MD - 04/26/2011 8:56 AM EST Gastroenterology and Hepatology Pre-Procedure History and Physical Exam Procedure: EGD Indication: Barretts esophagus, surveillance. There is no problem list on file for this patient. EXAM: HEENT: Airway examined, oropharynx clear LUNGS: Clear to auscultation HEART: Regular rate and rhythm, normal S1, S2 ABDOMEN: Normal bowel sounds, soft, non tender, non distended, A/P Proceed with EGD. Risks and benefits of the procedure explained to the patient. Consent signed. documented in this encounter Miscellaneous Notes Miscellaneous - Provider, Scanning - 04/27/2011 1:43 AM EST Miscellaneous - Provider, Scanning - 04/26/2011 11:03 AM EST documented in this encounter Plan of Treatment Upcoming Encounters Date Type Specialty Care Team Description 01/26/2022 Office Visit Ophthalmology Tania Gates , OD [facility] OPHTHALMOLOGY [place], [place] [address] (Wo rk) Scheduled Procedures Name [...] & MYELOPATHY MORSELIZED (WRVU *) MODIFIER K2 [facility] STENOSIS & HNP & MYELOPATHY documented as of this encounter Procedures Procedure Name Priority Date/Time Associated Diagnosis Comme nts SURGICAL PATHOLOGY Routine 04/26/2011 11:25 AM Re sults for this REPORT EST procedure are i n the results section. SPECIMEN TO Routine 04/26/2011 9:53 AM Results f or this PATHOLOGY EST procedure are i n the results section. SPECIMEN TO Routine 04/26/2011 9:53 AM Results f or this PATHOLOGY EST procedure are i n the results section. EGD WITH BIOPSY 04/26/2011 9:26 AM barretts (WRVU 2.49) EST UPPER GI ENDOSCOPY Routine 04/26/2011 8:42 AM Res ults for this EST procedure are i n the results section. POCT GLUCOSE Routine 04/26/2011 8:29 AM Results f or this EST procedure are i n the results section. documented in this encounter Results SURGICAL PATHOLOGY REPORT (04/26/2011 11:25 AM EST) Component Value Ref Test Analysis Performed At [facility] Range Method Time Signature Surgical [facility] ? [facility] Report ? Provider: ?? KIRSTEN DAMON ?? Pt. Name: ?? MARIA TERESA VILLEGAS JR, SAMY Oreilly ? Acc #: ?[id number] ?Pt. MRN: ?[id number] ? Col Date: ?? 2 ? /Sex: ?1965,(45 years),Male ? Rec Date: ?? 04/26/2011 ? LOC: ?4T ? SURGICAL PATHOLOGY ? ---Pathologic Diagnosis--- ? A - Duodenum, biopsy: ? Peptic-type duodenitis. ? B - Antrum, biopsy: ? Gastric antrum- type mucosa with H.pylori chronic inactive gastritis. ? Immunostaining for H. pylori is positive. ? CR-0 ? 04/28/11 ? B[facility] ? 04/28/11 Verified by: ? Rc Mathews MD ? Pathologist ? (Electronic Si gnature) ? The attending pathologist whose signature appears o n this report has ? reviewed all diagnostic slides and has edited the deann ss and/or ? microscopic portion of the report in rendering the fi nal pathologic ? diagnosis. ? ---Microscopic Description--- ? Slides reviewed, microscopic description not recorded . ? Immunohistochemistry Studies: ? Formalin-fixed, paraf fin-embedded tissue sections are studied using the B- ? SA system technique w ith appropriate positive and negative controls. ??These ? IHC studies provide t he pathologist with adjunctive diagnostic information. ? Antibody specificity has been verified by testing antibodies on a series of ? in-house tissues with known immunohistochemical perfo rmance ? characteristics. The clinical interpretation of any antibody positive ? staining or its absence is evaluated within the jasmyne xt of clinical ? presentation, morphol ogy, histopathological criteria and other diagnostic ? tests. ? Block ?Antibody ? Result (Posi tive/Negative) ? B1 ? H. pylori ? Positiv e. ? ---Gross Description--- ? A - Labeled/Fixative: Duodenal biopsies, formalin. ? Qty/Size/Weight: ?Six, averaging 0.3 cm. ? Tissue Description: ?? Soft, figueroa tissues. ? Sections/Processing: ??(T2) ? [facility] ? Provider: ?? KIRSTEN DAMON ?? Pt. Name: ?? SAMY KEITH JR ? Acc #: ?[id number] ?Pt. MRN: ?[id number] ? Col Date: ?? 2/14/201 2 ? /Sex: ?1965,(45 years),Male ? Rec Date: ?? 04/26/2011 ? LOC: ?4T ? SURGICAL PATHOLOGY ? B - Labeled/Fixative: Antral biopsies, formalin. ? Qty/Size/Weight: ?Four, averaging 0.3 cm. ? Tissue Description: ?? Soft, figueroa tissues. ? Sections/Processing: ??(T1) ??aje/SNS ? ---Clinical Information--- ? Specimen Submitted: ? A - Duodenal biopsies ? B - Antral biopsies ? Clinical History/Diagnosis: ? Multiple erosions in duodenum. Specimen (Source) Anatomical Collection Method Collection Time Re ceived Time Location / / Volume Laterality 04/26/2011 11:25 AM EST Kirsten Damon MD PATHOLOGY/CYTOLOGY ORDERABLE S Performing Organization Address City/[facility]/ZIP Code Phon e Number [address] CERNER MILLENNIUM Specimen to Pathology (surgical or derm) (04/26/2011 9:53 AM EST) Specimen Anatomical Collection Method Collection Time Receive d Time (Source) Location / / Volume Laterality AP Specimen 04/26/2011 9:53 AM 2 9:53 EST AM EST Narrative CERNER MILLENNIUM - 04/26/2011 9:[address] Specimen requisition ordered. ??Separate Pathology report to follow Kirsten Damon MD PATHOLOGY/CYTOLOGY ORDERABLE S Performing Organization Address City/[facility]/ZIP [place] [address] CERNER MILLENNIUM Specimen to Pathology (surgical or derm) (04/26/2011 9:53 AM EST) Specimen Anatomical Collection Method Collection Time Receive d Time (Source) Location / / Volume Laterality AP Specimen 04/26/2011 9:53 AM 2 9:53 EST AM EST Narrative CERNER MILLENNIUM - 04/26/2011 9:[address] Specimen requisition ordered. ??Separate Pathology report to follow Kirsten Damon MD PATHOLOGY/CYTOLOGY ORDERABLE S Performing Organization Address City/State/ZIP [place] [address] NAYELI [facility] UPPER GI ENDOSCOPY (04/26/2011 8:42 AM EST) Component Value Ref Test Analysis Performed At [facility] Range Method Time Signature UPPER GI [facility] PROVATION ENDOSCOPY Endoscopy Patient Name: Samy Patricio ? Procedure Date: 04/26/2011 8:42 AM ? [facility]: [id number] ? Date of : 1965 ? Age: 45 ? Order #: [id number] ? Procedure: ? Upper GI endoscopy Indications: ? Heartburn, Epigastric abdominal aisha n Providers: ? Kirsten Damon MD, Masha ? Alex, GUILLAUME, Aiden Iyer , ? Sales Inspector Referring MD: ?Altaf Hoover MD Medicines: ? Midazolam 4 mg IV, Fentanyl 200 ? micrograms IV, Benzocaine spr ay Complications: ? No immediate complications. Procedure: ? Pre-Anesthesia Assessment: ? - ASA Grade Assessment: I - A normal, ? healthy patient. ? - Mental Status Examination: alert ? and oriented. ? - Airway Examination: normal ? oropharyngeal airway and neck ? mobility. ? - Respiratory Examination: cl ear to ? auscultation. ? - CV Examination: normal. ? The procedure, indications, b enefits, ? risks and alternatives were e xplained ? to the patient. Specifically ? discussed were potential ? complications including, but not ? limited to, bleeding, perfora tion, ? infection, missing a cancer, and ? adverse medication reactions. The ? upper GI endoscopy was accomp lished ? without difficulty. The patie nt ? tolerated the procedure well. ? Findings: ? The esophagus was normal. ? In the antrum, there were a few shallow erosions. The ? antral mucosa was biopsied. ? In the duodenal bulb and post bulbar duodenum, there ? were multiple erosions (see photos).Multiple biopsies ? were taken. ? Impression: ?- Normal esophagus. ? - Mild antral erosions ? - Multiple erosions in the bu lb and ? post bulbar duodenum. Recommendation: ?- Await pathology results. ? - If these have developed whi le on a ? PPI, must consider other etio logies ? such as NSAID damage, H. pylo ri or ? hypergastrinemic conditions. ? Kirsten Damon MD 04/26/2011 10:04 AM ? Number of Addenda: 0 Note Initiated On: 04/26/2011 8:42 AM Specimen (Source) Anatomical Collection Method Collection Time Re ceived Time Location / / Volume Laterality 04/26/2011 8:42 AM EST Altaf Hoover MD GENERAL SURGICAL ORDERABLES Performing Organization Address City/State/ZIP Code Phon e Number PROVATION POCT GLUCOSE LAB USE ONLY (04/26/2011 8:29 AM EST) P athologist Signature POC Glucose 163 60 - 199 CERNER mg/dL MILLENNIUM Comment: Supplemental ranges: <110 mg/dL before meals <200 mg/dL all other times of the day Specimen Anatomical Collection Method Collection Time Receive d Time (Source) Location / / Volume Laterality Blood specimen 04/26/2011 8:29 AM 012 8:29 (specimen) EST AM EST Kirsten Damon MD POINT OF CARE TEST ORDERABLE S Performing Organization Address City/State/ZIP Code Phon e Number [place] [phone] [facility] documented in this encounter Visit Diagnoses Not on filedocumented in this encounter Administered Medications Inactive Administered Medications - up to 3 most recent administrations Medication Order MAR Action Action Date Dose Rate Site benzocaine (HURRICANE) 20 % oral New Bag 04/26/2011 9:37 AM EST 20 % spray CONTINUOUS PRN, Pain, Starting on Mon04/26/11 at 0937, Until Mon04/26/11 at 1403, Intra-Operative (Intra-Procedure) fentaNYL 50mcg/mL injection Given 04/26/2011 9:42 AM EST 50 mcg ONCE PRN, Starting on Mon04/26/11 at 0931, Until Mon04/26/11 at 1403, Pain, Intra-Operative (Intra-Procedure), Routine Given 04/26/2011 9:40 AM EST 50 mcg Given 04/26/2011 9:31 AM EST 100 mcg midazolam (VERSED) injection Given 04/26/2011 9:42 AM EST 1 mg ONCE PRN, Starting on Mon04/26/11 at 0931, Until Mon04/26/11 at 1403, Sleep, Intra-Operative (Intra-Procedure), Routine Given 04/26/2011 9:39 AM EST 1 mg Given 04/26/2011 9:31 AM EST 2 mg sodium chloride 0.9% infusion New Bag 04/26/2011 8:30 AM EST 30 mL/hr 30 mL/hr 30 mL/hr, Intravenous, CONTINUOUS, Starting on Mon04/26/11 at 0830, Until Mon04/26/11 at 1403, Endoscopy (Day of Procedure) documented in this encounter Active and Recently Administered Medications Times are shown in EST. Continuous Medication Order 04/24/2011 04/25/2011 04/26/2011 sodium chloride 0.9% infusion (CANCELED) 0830 (New Bag - Provider: Radha Grace RN) 30 mL/hr, at 30 mL/hr, Intravenous, CONT INUOUS, Starting 04/26/12 at 0830, Until 04/26/11 at 1403, Endo (Day of Procedure) PRN Medication Order 04/24/2011 04/25/2011 04/26/2011 benzocaine (HURRICANE) 20 % oral spray (CANCELED) 0937 (New Bag - Provider: Kirsten Damon MD - Comment: applied to back of tongue/throat) CONTINUOUS PRN, Pain, Starting Tue at 0937, Intra-Operative (Intra-Procedure) fentaNYL 50mcg/mL injection (CANCELED) 0931 (Given - Provider: Masha Johnson, RN)0940 (Given - Provider: Masha Johnson, RN)0942 (Given - Provider: Masha Johnson RN) ONCE PRN, Starting 04/26/11 at 0931, Until 04/26/11 at 1403, Pain, Intra- Operative (Intra-Procedure), Routine midazolam (VERSED) injection (CANCELED) 0931 (Given - Provider: Masha Johnson RN)0939 (Given - Provider: Masha Johnson, RN)0942 (Given - Provider: Masha Johnson, RN) ONCE PRN, Starting 04/26/11 at 0931, Until 04/26/11 at 1403, Sleep, Intra- Operative (Intra-Procedure), Routine documented in this encounter Care Teams Rustic Terrazzo Setter Relationship Specialty Start Date End Date Altaf Hoover MD PCP - General 04/19/11 09/18/[address] [place] [address] documented as of this encounter
--- OUTSIDE RECORDS SUMMARY | 2021-12-17 01:02 | XMS_ITS | Encounter Summary ---
:1965 Author Organization [facility] [place] [address] Care Team Providers Name Role Phone Unavailable Primary Care Provider Unavailable Encounter Details Date Type Department Care Team Description 07/05/2018 Telephone Psychiatry and Behavioral [place] [address] Social History Tobacco Use Types Packs/Day Years Used Date Current Every Day Smoker Cigarettes 2 Smokeless Tobacco: Never Used Alcohol Use Standard Drinks/Week Comments Yes 0 (1 standard drink = 0.6 oz pure alcoho l) Alcohol Habits Answer Date Recorded How often do you have a drink containing 4 or more times a w [place] 07/05/2018 alcohol? How many drinks containing alcohol do you have 10 or more 07/05/2018 on a typical day when you are drinking? How often do you have six or more drinks on one Daily or alfredito ost daily 07/05/2018 occasion? Comment: Not asked Sex Assigned at Date Recorded Not on file documented as of this encounter Miscellaneous Notes Telephone Encounter - Misty Pak - 07/05/2018 1:08 PM EDT Referrals faxed to the following outside facilities in search for an involuntary bed: [facility]- referral received, #17 on the list. [facility]- Referral faxed, no beds available at this time. [place]- Referral faxed, no beds available at this time. [facility]- Referral faxed, no beds available at this time. documented in this encounter Plan of Treatment Upcoming Encounters Date Type Specialty Care Team Description 01/26/2022 Office Visit Ophthalmology Tania Gates , OD [facility] OPHTHALMOLOGY [place], [place] [address] (Wo rk) Scheduled Procedures Name [...] HNP & MYELOPATHY MORSELIZED (WRVU *) MODIFIER [address] STENOSIS & HNP & MYELOPATHY documented as of this encounter Visit Diagnoses Not on filedocumented in this encounter
--- OUTSIDE RECORDS SUMMARY | 2021-12-17 01:02 | XMS_ITS | Encounter Summary ---
:1965 Author Organization [facility] [place] [address] Care Team Providers Name Role Phone Altaf Hoover MD Primary Care Provider Encounter Details Date Type Department Care Team Description 08/24/2017 External [place] [address] Social History Tobacco Use Types Packs/Day Years Used Date Current Every Day Smoker Cigarettes 2 Smokeless Tobacco: Never Used Alcohol Use Standard Drinks/Week Comments Yes 0 (1 standard drink = 0.6 oz pure alcoho l) Alcohol Habits Answer Date Recorded How often do you have a drink containing 4 or more times a w [place] 07/05/2018 alcohol? How many drinks containing alcohol [...] Office Visit Ophthalmology Tania Gates , OD [facility] OPHTHALMOLOGY [place], [place] [address] (Wo rk) Scheduled Procedures Name [...] MORSELIZED (WRVU *) MODIFIER K2 [facility] [place] STENOSIS & HNP & MYELOPATHY documented as of this encounter Procedures Procedure Name Priority Date/Time Associated Diagnosis Comme nts ECG SCAN Routine 08/24/2017 documented in this encounter Results Scan Doc: ECG (08/24/2017) Narrative This result has an attachment that is no t available. Historical Provider MD KUMAR MGR SCAN EXT ORDR/RSLT documented in this encounter Visit Diagnoses Not on filedocumented in this encounter Care Teams Embroidery Worker Relationship Specialty Start Date End Date Altaf Hoover MD PCP - General 04/19/11 09/18/[address] [place] [address] documented as of this encounter
--- OUTSIDE RECORDS SUMMARY | 2021-12-17 01:02 | XMS_ITS | Encounter Summary ---
:1965 [place] [address] Care Team Providers Name Role Phone Altaf Hoover MD Primary Care Provider Encounter Details Date Type Department Care Team Description 2015 Hospital Encounter Radiology Library at [place], [place] [facility] [place] [address] [facility] [phone] [place], [place] [address] (Wo rk) Social History Tobacco Use Types Packs/Day Years Used Date Current Every Day Smoker Alcohol Use Standard Drinks/Week Comments Yes 0 (1 standard drink = 0.6 oz pure alcoho l) Alcohol Habits Answer Date Recorded How often do you have a drink containing 4 or more times a w [place] 07/05/2018 alcohol? How many drinks containing alcohol [...] DsPk directed documented as of this encounter Plan of Treatment Upcoming Encounters Date Type Specialty Care Team Description 01/26/2022 Office Visit Ophthalmology Tania Gates , OD [facility] [place], [place] [address] (Wo rk) Scheduled Procedures Name [...] MORSELIZED (WRVU *) MODIFIER K2 [facility] [place] STENOSIS & HNP & MYELOPATHY documented as of this encounter Procedures Procedure Name Priority Date/Time Associated Diagnosis Comme nts FILM LIBRARY Routine 2015 12:00 AM Pain Results for this STORAGE ONLY DX EDT procedure ar e in SPINE the results section. documented in this encounter Results Film Library- Storage Only DX Spine (2015 12:00 AM EDT) Specimen (Source) Anatomical Location Collection Method / Collectio n Time Received Time / Laterality Volume Narrative KERRI - 02/06/2017 1:34 PM EST This exam is for storage only and is aut o-finalizing. Pop Xiao MD [facility] FILM LIBRARY ORDERABLES Performing Organization Address City/State/ZIP Code Phon e Number [place], [place] documented in this encounter Visit Diagnoses Diagnosis Pain Generalized pain documented in this encounter Care Teams Seafood Service Team Member Relationship Specialty Start Date End Date Altaf Hoover MD PCP - General 04/19/11 09/18/[address] [place] [address] documented as of this encounter
--- OUTSIDE RECORDS SUMMARY | 2021-12-17 01:02 | XMS_ITS | Encounter Summary ---
:1965 Author Organization [facility] [place] [address] Care Team Providers Name Role Phone Altaf Hoover MD Primary Care Provider Reason for Visit Reason Comments Dizziness Shortness of Breath Encounter Details Date Type Department Care Team Description 04/03/2017 - Emergency Emergency Department Tiffanie Espino SO B (shortness of breath); 04/04/2017 Eileen Oswald MD Dizziness and giddiness; [facility] Dyspnea, unspecified type; [facility] Nausea; 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 How many drinks containing alcohol [...] Sign Reading Time Taken Comments Blood Pressure 118/72 04/04/2017 4:00 AM EST Pulse 88 04/04/2017 4:00 AM EST Temperature 36.5 ??C (97.7 ??F) 04/04/2017 4:00 AM EST Respiratory Rate 18 04/04/2017 4:00 AM EST Oxygen Saturation 94% 04/04/2017 4:00 AM EST Inhaled Oxygen Concentration - - Weight 127 kg (280 lb) 04/03/2017 9:06 PM EST Height - - Body Mass Index 37.97 02/08/2017 8:41 AM EST documented in this encounter Discharge Instructions Discharge InstructionsNewton Mari MD - 04/04/2017 4:07 AM EST You have been seen for shortness of breath. We were concerned due to the severity of your symptoms and risk factors that this could be a blood clot in your lungs, a heart problem or a bacterial infection among other considerations. Our tests did not suggest that you had one of the life threatening conditions, however our tests arenot perfect and there is still a small chance that these problems could still be at hand. We are awaiting the result of a virus test which we felt would be reassuring in light of your symptoms. Please follow up with your primary care doctor for a stress test tomorrow or the next day. This willfurther evaluate your cardiac health and hopefully provide further reassurance with more detailed information. Thank you for entrusting us with your care. documented in this encounter Medications at Time of Discharge Medication Sig Dispensed Refills Start Date End Date glipiZIDE (GLUCOTROL) 5 Take 10 mg by mouth 4 07/2016 mg Tablet 2 times daily (before meals). metFORMIN (GLUCOPHAGE) Take 1,000 mg by 4 017 11/14/2018 1,000 mg Tablet mouth nightly. documented as of this encounter ED Notes Lissette Lynn NRP - 04/04/2017 2:59 AM EST Pt resting quietly with eyes closed and normally respiratory effort. Lissette Lynn NRP - 04/04/2017 1:44 AM EST Pt going to CT and will receive neb when he returns. Newton Mari MD - 04/04/2017 12:46 AM EST ED Resident Transfer Note Chief Complaint: Shortness of breath and dizziness. I saw this patient at 0300. HPI: Samy Oreilly Sheng Wells is a 51 y.o. male who presents to the Emergency Department with shortness of breath. This travel writer assumed care from Dr. Johnson at [phone]. Please see her note. I performed a limited History and Physical Exam. BP 161/84 (Patient Position: Sitting) Pulse 99 Temp 36.4 ??C (97.5 ??F) (Oral) Resp 20 Wt 127 kg (280 lb) SpO2 97% BMI 37.97 kg/m2 ED Course: Recent Results (from the past 24 hour(s)) POCT Glucose Result Value Ref Range POC Glucose 258 (H) 65 - 199 mg/dL Basic Metabolic Panel (non-fasting) Result Value Ref Range Glucose Lvl 265 (H) 65 - 199 mg/dL BUN 15 10 - 20 mg/dL Creatinine 1.45 0.80 - 1.50 mg/dL Sodium 139 135 - 145 mmol/L Potassium 5.2 (H) 3.5 - 5.0 mmol/L Chloride 98 98 - 107 mmol/L CO2 28 22 - 31 mmol/L Anion Gap 13 5 - 15 mmol/L Calcium 8.5 8.5 - 10.5 mg/dL Estimated GFR 52 (L) >=60 Troponin T Result Value Ref Range Troponin-T <0.01 0.00 - 0.00 ng/mL pro-Brain Natriuretic Peptide Result Value Ref Range ProBNP 26 <=125 pg/mL D-Dimer, Quantitative Result Value Ref Range D-Dimer, Quant 1112 (H) 0 - 500 FEU ng/ml Hemogram Result Value Ref Range WBC 7.4 4.0 - 9.5 x10(3)/mcL RBC 4.67 4.58 - 5.54 x10(6)/mcL Hemoglobin 15.8 13.7 - 16.5 gm/dL Hematocrit 42.2 40.5 - 48.5 % MCV 90.4 82.9 - 93.1 fL MCH 33.8 (H) 27.5 - 32.1 pg MCHC 37.4 (H) 32.0 - 35.7 gm/dL Platelets 212 145 - 357 x10(3)/mcL RDWSD 41.2 36.0 - 45.0 fL RDWCV 12.5 11.4 - 13.8 % MPV 9.9 7.6 - 12.9 fL nRBC % Auto 0.0 % nRBC Abs Auto 0.000 0.000 - 0.000 x10(3)/mcL Differential, Automated Result Value Ref Range Neutrophils % 56.6 % Neutr Abs (ANC) 4.20 1.70 - 6.10 x10(3)/mcL Lymphocytes % 32.5 % Lymphocytes Abs 2.4 0.9 - 3.2 x10(3)/mcL Monocytes % 7.4 % Monocyte Abs 0.6 0.3 - 0.9 x10(3)/mcL Eosinophils % 2.3 % Eosinophils Abs 0.2 0.0 - 0.4 x10(3)/mcL Basophils % 0.7 % Basophils Abs 0.0 0.0 - 0.1 x10(3)/mcL Immature Gran % 0.50 % Julianne Gran Abs 0.04 0.00 - 0.04 x10(3)/mcL Gold Tube HOLD Result Value Ref Range Gold Hold Sample in lab. 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 No acute cardiopulmonary process. 01/23 0119 EKG 12 Lead Normal sinus rhythm Normal ECG When compared with ECG of 13-JUL-2006 17:13, No significant change was found 04/04 118 ProBNP: 26 (Reviewed) 04/04 119 Troponin-T: <0.01 (Reviewed) 04/04 309 POC Glucose: (!) 258 (Reviewed) 04/04 310 CTA Chest for Pulmonary Embolus w Contrast 1. ??No pulmonary embolism. 2. ??No infectious or inflammatory pulmonary process. 3. ??Diffuse hepatic steatosis. 04/04 326 Patient was frustrated with lack of diagnosis and disposition at 0400. Configuration Management Analyst explained that we had been awaiting return of studies and as we had not found a satisfactory reason for symptoms would suggest a stress test in AM. Patient expressed that he wished to go, understanding that there was sill the opportunity for us to further investigate possibly life-threatening causes of his shortness of breath and dizziness. He expressed a preference to go home, understanding that this choice was not without risk of serious illness of . He stated he would seek a stress test as soon as possible and follow up with his primary care provider. We agreed this was a reasonable alternative to awaiting viral PCR results in the ED and that an outpatient stress test was reasonable so long as patient understoodthere was possibly some increased risk of adverse outcome with this choice. Phone number provided by Patient ( Francie) to relay result of nasal swab viral PCR called at [phone] with test results of negative fluA/B and RSV PCR. Assessment: I saw this transfer patient in the ED with diagnosis of shortness of breath. Patient wasstable. I will assist the consulting service as needed while the patient is in the ED. Plan: - Discharge home with close PCP follow up and rec for stress test. Newton Mari MD Resident 04/04/17 0835 Associated attestation - Tiffanie Espino MD - 04/19/2017 8:38 PM EST ED ATTENDING ATTESTATION NOTE The patient was [...] resident note above unless noted otherwise below. ED Course Philip Johnson MD - 04/03/2017 11:20 PM EST ED Resident Note Samy Patricio Jr. is an 51 y.o. male who presents to the ED with: Chief Complaint Patient presents with ??? Dizziness ??? Shortness of Breath I saw this patient 04/03/2017 at approximately 11:30 PM. HPI Samy Patricio Jr. is a 51 y.o. male with a PMH of Chronic LBP, Left-sided Blindness, DM II (non Insulin Dependent), Barett's Esophagus, Ulnar Neuropathy (S/p surgical repair), PUD (with GIB in adolescence) who presents to the Emergency Department with lightheadedness and shortness of breath. The patient reports that about 2.5 weeks prior, he experienced sudden onset lightheadedness and associated dyspnea; he adds, if I could just lay still, the lightheadedness would go away. Each day it comes and goes, especially over the last 5 days; by afternoon, I'm so messed up, I can't even move my eyeballs. The patient went to see his PCP last week, at which point he prescribed him with 20 mg of Meclizine, which did not incur him with any symptomatic relief. He reports associated nausea over the past 5days, with no emesis. He also reports four episodes of generalized headache over the past two weeks,which is also new. He denies palpitations, chest pain, peripheral edema or claudication, but endorses PND and orthopnea. He currently smokes 2 PPD (with a 74 PYH - 2 PPD x 34 years), is not ready to quit, though he has tried multiple times. He adds, my PCP has been trying to get me on the inhaler, especially when I've got that occasional elephant on the chest feeling - not a chest pain, just shortness of breath, but he has not pursued the former. He also has not had prior PFTs performed. He says that his dyspnea had progressively worsening to a point where [he] feels like I really need to stopto catch a breath. He additionally endorses night sweats, in the absence of unintentional weight loss (are you kidding? Anything but!, he expresses), fatigue, and weakness. His dyspnea has been debilitating, to a point where it is interfering with his pace of ADLs. He additionally denies URI symptoms, and has received his influenza vaccine. He denies melena/hematochezia, hematemesis, epistaxis, abdominal pain, nausea/vomiting, fevers/chills, sick contacts, or recent travel. He drinks. Allergies: - Doxycycline -n/v. No anaphylaxis or urticaria. Medications: - Lipitor - Glipizide - Metformin - Paxil - Prilosec - Naproxen Sodium: back pain SHX: 74 PYH; current smoker Lives with . No drugs. Occasional Alcohol. No recent travel. No sick contacts. (+) Influenza vaccination. Review of Systems: Review of Systems See: HPI. Physical Exam: Patient Vitals for the past 24 hrs: BP Temp Temp src Pulse Resp SpO2 Weight 04/03/17 2106 161/84 36.4 ??C (97.5 ??F) Oral 99 20 97 % 127 kg (280 lb) Vital signs significant for: mild HTN and tachycardia. Physical Exam General: tired-appearing, middle-aged male, lying in bed, in NAD. Speaking full sentences. HEENT: anicteric sclera, MMM. Neurologic: alert and oriented x4. Normal speech, gait, and station. CN 2-12 grossly intact (with the exception of known, left-sided blindness). Negative Romberg. No Pronator Drift. No dysmetria, dysdiadochokinesia; negative [id number]. Normal sensation. 5/5 strength in upper, lower extremities. 1+ r eflexes at patellar, biceps tendons. (-) Babinski, bilaterally. PERRLA and EOMI. Neck: soft, supple, no JVD. Cardiac: regular rate & rhythm; no M/R/G. Respiratory: (+) End-expiratory wheezes across anterior, posterior lung moya. Normal respiratory effort. Gastrointestinal: soft, non-distended, non-tender, normoactive bowel sounds, no hepatosplenomegaly. : no suprapubic tenderness. Psychiatric: anxious mood & congruent affect; thought process linear and goal-directed. Extremities: 2+ pulses throughout; sensation intact; no clubbing, cyanosis, or peripheral edema. ED Course: - Patient seen under the supervision of Dr. Espino. - Medications, allergies and past medical history reviewed - EKG Pending. Medications given Medications - No data to display Significant lab results No results found for this or any previous visit (from the past 24 hour(s)). Imaging - CXR PA & Lateral: Pending. Consults - N/A. Assessment and Plan: Assessment: 51 y.o. male with a PMH of Chronic LBP, 74 PYH (current smoker; no prior PFTs available), DM II (non-insulin dependent), PUD and Diaz's Esophagus who presented with a 2.5-week history oflightheadedness and dyspnea at rest, with associated nausea, headache, and chronic, productive cough. Differential diagnoses considered included: COPD Exacerbation vs. CHF Exacerbation (new diagnosis) vs. Acute Anemia (potentially occult) vs. PNA. The patient's longstanding smoking history, in conjunction with chronic productive cough and interval, sudden onset dyspnea raises concern for potential COPD exacerbation, though the patient has had no prior PFTs performed, no systemic symptoms, and unclearinterval increase in sputum production/cough. The patient does report orthopnea, with sudden onset dyspnea at rest, worsened with any degree of exertion, raising concern for potential cardiac process (EKG/CXR pending). Plan: - CXR: assess for pulmonary edema (CHF) vs. Hyperinflation (COPD) vs. PNA. - EKG: rule out acute ST changes; Troponin T (r/o acute ischemic event, given pt's acute/insidious onset dyspnea at rest), pro-BNP - CBC with Ddx (r/o acute anemia); BMP (r/o lyte disturbances; assess renal function), D-Dimer - Dispo to follow - Patient will likely benefit from outpatient PFTs: r/o obstructive pathology in the setting of longstanding alcohol use. - If above studies indicate stability for discharge, will likely recommend ongoing bronchodilator therapy (e.g., KAUSHIK) with close-outpatient Primary Care +/- Pulmonology follow-up, formal PFTs (r/o obstructive process, I.e., COPD, and guide smoking cessation goals), and likely EKG Stress Test (could not calculate ASCVD score as patient does not have a pre-existing lipid panel, but his dyspnea - exertional in nature/exacerbating quality, in conjunction with high- risk profile relating to T2DM, Morbid Obesity, Smoking History raise concern for either underlying or propensity for Ischemic Heart Disease). - Patient does not currently meet criteria for USPSTF Low-Dose CT, as age <55 years; however, >30 PYH. Up-to-date with vaccinations, including Influenza Vaccine. Philip Johnson MD PGY1, Internal Medicine Pager #[phone] Philip Johnson MD Resident 04/04/17 0055 Associated attestation - Tiffanie Espino MD - 04/19/2017 8:36 PM EST ED ATTENDING ATTESTATION NOTE The patient was [...] resident note above unless noted otherwise below. ED Course documented in this encounter Plan of Treatment Upcoming Encounters Date Type Specialty Care Team Description 01/26/2022 Office Visit Ophthalmology Tania Gates , OD [facility] OPHTHALMOLOGY [place], [place] [address] (Wo rk) Scheduled Procedures Name [...] & MYELOPATHY MORSELIZED (WRVU *) MODIFIER [address] STENOSIS & HNP & MYELOPATHY documented as of this encounter Procedures Procedure Name Priority Date/Time Associated Comments Diagnosis RAPID INFLUENZA A/B STAT 04/04/2017 2:45 AM Re sults for this AND RSV PCR EST procedure are i n ([facility]P/[facility]D/[facility]) the resul ts section. CT CHEST PULMONARY STAT 04/04/2017 1:58 AM Res ults for this EMBOLISM W CONTRAST EST procedur e are in the results section. XR CHEST PA AND STAT 04/04/2017 12:18 Results for this LATERAL AM EST procedure are i n the results section. EKG 12-LEAD STAT 04/04/2017 12:04 Results for this AM EST procedure are i n the results section. HEMOGRAM STAT 04/04/2017 12:02 Results for this AM EST procedure are i n the results section. DIFFERENTIAL, STAT 04/04/2017 12:02 Results fo r this AUTOMATED AM EST procedure are i n the results section. D-DIMER, QUANTITATIVE STAT 04/04/2017 12:02 Re sults for this AM EST procedure are i n the results section. GOLD TUBE HOLD STAT 04/04/2017 12:02 Results f or this AM EST procedure are i n the results section. CBC (WITH DIFF) STAT 04/04/2017 12:02 AM EST TROPONIN STAT 04/04/2017 12:02 Results for this AM EST procedure are i n the results section. PRO-BRAIN NATRIURETIC STAT 04/04/2017 12:02 Re sults for this PEPTIDE AM EST procedure are i n the results section. BASIC METABOLIC PANEL STAT 04/04/2017 12:02 Re sults for this (NON-FASTING) AM EST procedure are in the results section. POCT GLUCOSE Routine 04/04/2017 12:00 Results for this AM EST procedure are i n the results section. 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 EILEEN Source [facility] Specimen (Source) Anatomical Collection Method Collection Time Re ceived Time Location / / Volume Laterality Nasopharyngeal swab 04/04/2017 2:45 04/04 (specimen) AM EST 3:14 AM EST Resulting Agency Comment Spec In Lab Tiffanie Espino MD MICROBIOLOGY - GENERAL ORDER TREVON Performing Organization Address City/State/ZIP [place] [address] CTA Chest for Pulmonary Embolus w Contrast (04/04/2017 1:58 AM EST) Anatomical Region Laterality Modality Chest Computed Tomography Specimen (Source) Anatomical Location Collection Method / Collectio n Time Received Time / Laterality Volume Impressions 04/04/2017 2:37 AM EST 1. ??No pulmonary embolism. 2. ??No infectious or inflammatory pulmo nary process. 3. ??Diffuse hepatic steatosis. I have personally reviewed the image(s) and the residents interpretation and agree with the findings, Megan London at 04/04/2017 2:37 AM Narrative 04/04/2017 2:37 AM EST EXAMINATION: CTA chest for pulmonary arteries CLINICAL HISTORY: SOB, lightheaded, tach ycardia elevated d-dimer TECHNIQUE: 3 mm thick axial contiguous s ections were obtained through the chest via helical acquisition after the intrav enous administration of 68 cc of Omnipaque-350. Thin-section reconstructi ons as well as coronal and sagittal MIP reformatted images were generated to aid in evaluation. COMPARISON: Same-day chest radiographs a nd report only from prior CT chest dated January 12, 2001. FINDINGS: Pulmonary arteries: The pulmonary arteri es normal in caliber. No pulmonary arterial filling defects. Other cardiovascular structures: Normal heart size. Prominent atherosclerotic calcification of the coronary arteries. Pulmonary parenchyma and airways: The ce ntral airways are patent. There is mild interlobular septal thickening in the up per lobes. There is minimal dependent atelectasis. Pleura: There is no pleural effusion or pneumothorax. Lymph nodes: No mediastinal or hilar moon nopathy. Other mediastinal structures: Changes of Luisana fundoplication are present. Upper abdomen: Diffuse hepatic hypoatten uation is consistent with hepatic steatosis. Skeletal structures: No suspicious osseo us lesions. Procedure Note Megan London MD - 04/04/2017 EXAMINATION: CTA chest for pulmonary art eries CLINICAL HISTORY: SOB, lightheaded, tach ycardia elevated d-dimer TECHNIQUE: 3 mm thick axial contiguous s ections were obtained through the chest via helical acquisition after the intrav enous administration of 68 cc of Omnipaque-350. Thin-section reconstructi ons as well as coronal and sagittal MIP reformatted images were generated to aid in evaluation. COMPARISON: Same-day chest radiographs a nd report only from prior CT chest dated January 12, 2001. FINDINGS: Pulmonary arteries: The pulmonary arteri es normal in caliber. No pulmonary arterial filling defects. Other cardiovascular structures: Normal heart size. Prominent atherosclerotic calcification of the coronary arteries. Pulmonary parenchyma and airways: The ce ntral airways are patent. There is mild interlobular septal thickening in the up per lobes. There is minimal dependent atelectasis. Pleura: There is no pleural effusion or pneumothorax. Lymph nodes: No mediastinal or hilar moon nopathy. Other mediastinal structures: Changes of Luisana fundoplication are present. Upper abdomen: Diffuse hepatic hypoatten uation is consistent with hepatic steatosis. Skeletal structures: No suspicious osseo us lesions. IMPRESSION 1. No pulmonary embolism. 2. No infectious or inflammatory pulmona ry process. 3. Diffuse hepatic steatosis. I have personally reviewed the image(s) and the residents interpretation and agree with the findings, Megan London at 04/04/2017 2:37 AM Tiffanie Espino MD IMG CT ORDERABLES XR Chest PA & Lateral (Generic) (04/04/2017 12:18 AM EST) Anatomical Region Laterality Modality Chest N/A Digital Radiography Specimen (Source) Anatomical Location Collection Method / Collectio n Time Received Time / Laterality Volume Impressions 04/04/2017 12:19 AM EST No acute cardiopulmonary process. Narrative 04/04/2017 12:19 AM EST EXAMINATION: XR CHEST PA AND LATERAL (GENERIC) CLINICAL HISTORY: concern for new CHF - lightheaded, orthopena, SOB TECHNIQUE: 2 views COMPARISON: July 13, 2016 FINDINGS: The cardiomediastinal silhouette is stab le. Normal pulmonary vasculature. Lungs are clear and without focal consolidatio n. No pleural effusion or pneumothorax. Bones are unchanged. Procedure Note Megan London MD - 04/04/2017 EXAMINATION: XR CHEST PA AND LATERAL (GE NERIC) CLINICAL HISTORY: concern for new CHF - lightheaded, orthopena, SOB TECHNIQUE: 2 views COMPARISON: July 13, 2016 FINDINGS: The cardiomediastinal silhouette is stab le. Normal pulmonary vasculature. Lungs are clear and without focal consolidatio n. No pleural effusion or pneumothorax. Bones are unchanged. IMPRESSION No acute cardiopulmonary process. Tiffanie Espino MD IMG DX ORDERABLES EKG 12 Lead (04/04/2017 12:04 AM EST) Component Value Ref Range Test Analysis Performed Pathologis t Method Time At Signature Ventricular rate 85 BPM MUSE SYSTEM Atrial Rate 85 BPM MUSE SYSTEM P-R Interval 176 ms MUSE SYSTEM QRS Duration 80 ms MUSE SYSTEM Q-T Interval 370 ms MUSE SYSTEM QTC Calculated 440 ms MUSE SYSTEM (Bezet) Calculated P Simms 46 degrees MUSE SYSTEM Calculated R Simms 56 degrees MUSE SYSTEM Calculated T Simms 41 degrees MUSE SYSTEM INTERPRETATION Normal sinus rhythm MUSE SYSTEM Normal ECG When compared with ECG of 13-JUL-2006 17:13, No significant change was found Confirmed by MD Yaima, Timothy Collins ([id number]) on 04/04/2017 5 :28:12 PM Specimen Anatomical Collection Method Collection Time Receive d Time (Source) Location / / Volume Laterality 04/04/2017 12:04 04/04/2017 5:28 AM EST PM EST Tiffanie Espino MD ECG ORDERABLES Performing Organization Address City/State/ZIP Code Phon e Number MUSE SYSTEM Gold Tube HOLD (04/04/2017 12:02 AM EST) P athologist Signature Gold Hold Sample in [facility] lab. [facility] Specimen Anatomical Collection Method Collection Time Receive d Time (Source) Location / / Volume Laterality Blood specimen Venous Draw / 04/04/2017 12:02 04/04/19 18 (specimen) Unknown AM EST 12:10 AM EST Tiffanie Espino MD CHEMISTRY ORDERABLES Performing Organization Address City/[facility]/[place]IP [place] [address] Differential, Automated (04/04/2017 12:02 AM EST) P athologist Signature Neutrophils % 56.6 % [facility] Neutr Abs (ANC) 4.20 1.70 - [facility] 6.10 [facility] x10(3)/[facility] LAB[facility]AT[facility] Lymphocytes % 32.5 % [facility] Lymphocytes Abs 2.4 0.9 - 3.2 [facility] x10(3)/[facility] LABORATORY Monocytes % 7.4 % [facility] Monocyte Abs 0.6 0.3 - 0.9 [facility] x10(3)/[facility] LABORATORY Eosinophils % 2.3 % [facility] Eosinophils Abs 0.2 0.0 - 0.4 [facility] x10(3)/[facility] LABORATORY Basophils % 0.7 % [facility] Basophils Abs 0.0 0.0 - 0.1 [facility] [facility] x10(3[facility] LABORATORY Immature Gran % 0.50 % [facility] LABORATORY Comment: Immature granulocytes(IG's)percentage an d absolute count will include metamyelocytes, myelocytes, and promyelo cytes. Blood smears from CBCs yielding IG's will be scanned manually for concor dance. If this scan disagrees with the automated IG or if promyelocytes are not ed, a manual differential will be performed. Julianne Gran Abs 0.04 0.00 - 0.04 x10(3)/[facility] LABORATORY Specimen Anatomical Collection Method Collection Time Receive d Time (Source) Location / / Volume Laterality Blood specimen 04/04/2017 12:02 8 (specimen) AM EST 12:09 AM EST Resulting Agency Comment Spec In Lab Tiffanie Espino MD HEMATOLOGY ORDERABLES Performing Organization Address City/[facility]/ZIP Code Phon e Number [place] [phone] LAB[address]ORY [address] (ABNORMAL) Hemogram (04/04/2017 12:02 AM EST) Analysis Performed At Patho logist Time Signature WBC 7.4 4.0 - 9.5 EILEEN JOHNNA x10(3)/[facility] LABORATORY RBC 4.67 4.58 - EILEEN EARLYJOHNNA 5.54 [facility] x10(6)/[facility] LABORATORY Hemoglobin 15.8 13.7 - EILEEN JOHNNA 16.5 gm/dL [facility] LABORATORY Hematocrit 42.2 40.5 - EILEEN EARLYJOHNNA 48.5 % [facility] LABORATORY MCV 90.4 82.9 - [facility] 93.1 [facility] LABORATORY MCH 33.8 (H) 27.5 - EILEEN JOHNNA 32.1 pg [facility] LABORATORY MCHC 37.4 (H) 32.0 - [facility] 35.7 gm/dL [facility] LABORATORY Platelets 212 145 - 357 [facility] x10(3)/[facility] LABORATORY RDWSD 41.2 36.0 - [facility] 45.0 [facility] LABORATORY RDWCV 12.5 11.4 - [facility] 13.8 % [facility] LABORATORY MPV 9.9 7.6 - 12.9 [facility] nRBC % Auto 0.0 % [facility] LABORATORY nRBC Abs Auto 0.000 0.000 - [facility] 0.000 [facility] x10(3)/[facility] LABORATORY Specimen Anatomical Collection Method Collection Time Receive d Time (Source) Location / / Volume Laterality Blood specimen 04/04/2017 12:02 8 (specimen) AM EST 12:09 AM EST Resulting Agency Comment Spec In Lab Tiffanie Espino MD HEMATOLOGY ORDERABLES Performing Organization Address City/State/ZIP Code [place] [address] (ABNORMAL) D-Dimer, Quantitative (04/04/2017 12:02 AM EST) [facility] gist Method Time Signature D-Dimer, Quant 1,112 (H) 0 - 500 [facility] FEU ng/ml [facility] LABORATORY Comment: The D-Dimer assay is used to aid in the diagnosis of deep vein thrombosis and pulmonary embolism. A normal D-Dimer res ult (less than 500 FEU ng/ml) has a negative predictive value of approximate ly 95% for the exclusion of acute PE and DVT when there is low to moderate pr etest probability. To use age adjusted cutoff: Age x 10ng/mL. Specimen Anatomical Collection Method Collection Time Receive d Time (Source) Location / / Volume Laterality Blood specimen 04/04/2017 12:02 8 (specimen) AM EST 12:10 AM EST Resulting Agency Comment Spec In Lab Tiffanie Espino MD HEMATOLOGY ORDERABLES Performing Organization Address City/[facility] Code Phon e Number [address] pro-Brain Natriuretic Peptide (04/04/2017 12:02 AM EST) P athologist Signature ProBNP 26 <=125 pg/mL [facility] LABORATORY Specimen Anatomical Collection Method Collection Time Receive d Time (Source) Location / / Volume Laterality Blood specimen 04/04/2017 12:02 8 (specimen) AM EST 12:09 AM EST Resulting Agency Comment Spec In Lab Tiffanie Espino MD CHEMISTRY ORDERABLES Performing Organization Address City/[facility] [place] [address] Troponin T (04/04/2017 12:02 AM EST) athologist Signature Troponin-T <0.01 0.00 - 0.00 [facility] ng/mL [facility] LABORATORY Comment: Specimen ultracentrifuged due to gross l ipemia The 99th percentile for Troponin T is le ss than 0.01 ng/mL, any detectable cTnT concentration using this assay should be considered elevated. According to the third universal definit ion of myocardial infarction the following criteria with a clinical prese ntation consistent with acute myocardial ischemia meets the diagnosis for a myocardial infarction (MS). Detection of a rise and/or fall of [...] additional sample may be indicated. Reference: Third [place] Definition of Myocardial Infarction. Journal of the [place] [employer] 2012;60:1581-98 Specimen Anatomical Collection Method Collection Time Receive d Time (Source) Location / / Volume Laterality Blood specimen 04/04/2017 12:02 8 (specimen) AM EST 12:09 AM EST Resulting Agency Comment Spec In Lab Tiffanie Espino MD CHEMISTRY ORDERABLES Performing Organization Address City/State/[place] [address] (ABNORMAL) Basic Metabolic Panel (non-fasting) (04/04/2017 12:02 AM EST) P athologist Signature Glucose Lvl 265 (H) 65 - 199 [facility] mg/dL [facility] LABORATORY Comment: Diabetes: >=200 mg/dL plus symp toms BUN 15 10 - 20 mg/dL [facility] LABORATORY Creatinine 1.45 0.80 - 1.50 mg/dL [facility] LABORATORY Comment: Specimen ultracentrifuged due t o gross lipemia Sodium 139 135 - 145 mmol/L [facility] LABORATORY Comment: Specimen ultracentrifuged due t o gross lipemia Potassium 5.2 (H) 3.5 - 5.0 mmol/L [facility] LABORATORY Comment: Specimen ultracentrifuged due to gross l ipemia Please note: ??Patients with WBC >100,00 0 may have falsely elevated Potassium levels. ??For accurate Potassium quantif ication in these patients send serum separator tube (gold top) for subsequent determinations. ??Contact the Clinical Chemistry Laboratory if there are any qu estions. Chloride 98 98 - 107 mmol/L [facility] LABORATORY Comment: Specimen ultracentrifuged due t o gross lipemia CO2 28 22 - 31 mmol/L [facility] LABOR[facility] Anion Gap 13 5 - 15 mmol/L [facility] LABORATORY Calcium 8.5 8.5 - 10.5 mg/dL [facility] LABORATORY Estimated GFR 52 (L) >=60 [facility] LABORATORY Comment: The reported eGFR should be multiplied b y 1.2 for patients. The MDRD is not an appropriate measure o f renal function for patients with body mass extremes or in patients with acute kidney failure. http://Wittlebee/DHnkdep http://Wittlebee/DHMCnkf Specimen Anatomical Collection Method Collection Time Receive d Time (Source) Location / / Volume Laterality Blood specimen 04/04/2017 12:02 8 (specimen) AM EST 12:09 AM EST Resulting Agency Comment Spec In Lab Tiffanie Espino MD CHEMISTRY ORDERABLES Performing Organization Address City/[facility]/[place] [address] (ABNORMAL) POCT Glucose (04/04/2017 12:00 AM EST) P athologist Signature POC Glucose 258 (H) 65 - 199 [facility] mg/dL [facility] LABORATORY Comment: Supplemental ranges: <140 mg/dL before meals <180 mg/dL all other times of the day Specimen (Source) Anatomical Collection Method Collection Time Re ceived Time Location / / Volume Laterality Blood specimen 04/04/2017 04/04/2017 12 :00 (specimen) AM EST Tiffanie Espino MD POINT OF CARE TEST ORDERABLE S Performing Organization Address City/[facility]/[place] [address] documented in this encounter Visit Diagnoses Diagnosis Dyspnea, unspecified type Dizziness and giddiness Nausea Nausea alone Nonintractable headache, unspecified chr onicity pattern, unspecified headache type Cough Generalized hyperhidrosis Type 2 diabetes mellitus without complic ation, without long-term current use of insulin Cigarette smoker Tobacco use disorder Encounter for long-term (current) drug u se Encounter for long-term (current) use of other medications terminal 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 (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) use of oral hypoglyc emic drugs Encounter for long-term (current) use of non-steroidal anti-inflammatories documented in this encounter Administered Medications Inactive Administered Medications - up to 3 most recent administrations Medication Order MAR Action Action Date Dose Rate Site iohexol (OMNIPAQUE) 350 mg/mL Given 04/04/2017 1:57 AM EST 68 mL s solution 0-200 mL 0-200 mL, Intravenous, ONCE PRN, 1 dose, Starting on Mon04/04/17 at 0157, Until Mon04/04/17 at 0157, Per Protocol, Warning Vesicant/Irritant Medication , Radiology Contrast, Routine ipratropium-albuterol (DUONEB) 0.5 mg-3 mg(2.5 Given 0 04/04/2017 2:34 AM EST 3 mLs mg base)/3 mL nebulizer solution 3 mL 3 mL, Nebulization, EVERY 20 MIN PRN, 3 doses, Starting on Mon04/04/17 at 0134, Until Mon04/04/17 at 0619, Wheezing, Wheezing or SOB, STAT Given 04/04/2017 2:04 AM EST 3 mLs documented in this encounter Active and Recently Administered Medications Times are shown in EST. PRN Medication Order 04/02/2017 04/03/2017 04/04/2017 iohexol (OMNIPAQUE) 350 mg/mL solution 0-200 mL (COMPLETED) 0157 (Given - Provider: Aiden Goncalves) 0-200 mL, Intravenous, ONCE PRN, 1 dose, Starting Mon04/04/17 at 0157, Until Mon04/04/17 at 0157, Per Protocol, Warning Vesicant/Irritant Medication , Radiology Contrast, Routine ipratropium-albuterol (DUONEB) 0.5 mg-3 mg(2.5 mg base)/3 mL nebulizer solution 3 mL 0204 (Given - Provid er: Lissette Lynn NRP)0234 (Given - Provider: Lissette Lynn NRP) 3 mL, Nebulization, EVERY 20 MIN PRN, 3 doses, Starting Mon04/04/17 at 0134, Until Mon04/04/17 at 0619, Wheezing, Wheezing or SOB, STAT documented in this encounter Care Teams Printing Estimator Relationship Specialty Start Date End Date Altaf Hoover MD PCP - General 04/19/11 09/18/[address] [place] [address] documented as of this encounter
--- OUTSIDE RECORDS SUMMARY | 2021-12-17 01:02 | XMS_ITS | Encounter Summary ---
:1965 Author Organization [facility] [place] [address] Care Team Providers Name Role Phone Altaf Hoover MD Primary Care Provider Encounter Details Date Type Department Care Team Description 04/26/2011 Hospital Encounter Gastroenterology at [facility] [place] [address] [place] [address] CENTER GASTROENTEROLOGY DEPT. [place], [place] [address] Social History Tobacco Use Types Packs/Day Years Used Date Current Every Day Smoker Alcohol Use Standard Drinks/Week Comments Yes 0 (1 standard drink = 0.6 oz pure alcoho l) Alcohol Habits Answer Date Recorded How often do you have a drink containing 4 or more times a w mentasta 07/05/2018 alcohol? How many drinks containing alcohol [...] not get better as expected. Monday-Monday Clinic [phone] 8a-5p Same Day Endo [phone] 7a-8p Otherwise contact [phone] and ask to speak to the boiling house hand public works commissioner Follow-up care is a [place] part of [...] Ophthalmology Tania Gates , OD [facility] ER DR OPHTHALMOLOGY [place], [place] [address] (Wo rk) Scheduled Procedures Name [...] & MYELOPATHY MORSELIZED (WRVU *) MODIFIER K2 [facility] STENOSIS & HNP & MYELOPATHY documented [...] Component Value Ref Test Analysis Performed At [facility] Range Method Time Signature Surgical CERNER Pathology ? [facility] Report ? Provider: ?? KIRSTEN DAMON ?? Pt. Name: ?? MARIA TERESA VILLEGAS JR, SAMY Oreilly ? Acc #: ?[id number] ?Pt. MRN: ?[id number] ? Col Date: ?? 2 ? /Sex: [...] Soft, figueroa tissues. ? Sections/Processing: ??(T2) ? [facility] ? Provider: ?? KIRSTEN DAMON ?? Pt. Name: ?? SAMY KEITH JR ? Acc #: ?[id number] ?Pt. MRN: ?[id number] ? Col Date: ?? 2 ? /Sex: [...] MD PATHOLOGY/CYTOLOGY ORDERABLE S Performing Organization Address City/[facility]/ZIP Code Phon e Number [address] CERNER MILLENNIUM Specimen to [...] Organization Address City/State/[place] [address] CERNER MILLENNIUM Specimen to [...] Organization Address City/State/[place] [address] [facility] UPPER GI ENDOSCOPY (04/26/2011 8:42 AM EST) Component Value Ref Test Analysis Performed At [facility] Range Method Time Signature UPPER GI [facility] PROVATION ENDOSCOPY Endoscopy Patient Name: Samy Patricio ? Procedure Date: 04/26/2011 8:42 AM ? N: [id number] ? Date of : 1965 ? Age: 45 ? Order #: [id number] ? Procedure: ? Upper GI endoscopy Indications: ? Heartburn, Epigastric abdominal aisha n Providers: ? Kirsten Damon MD, Masha ? GUILLAUME Johnson, Aiden Iyer , ? Reservation Agent Referring MD: ?Altaf Hoover MD Medicines: ? [...] Glucose 163 60 - 199 CERNER mg/dL [facility] Comment: Supplemental ranges: <110 mg/dL before meals <200 mg/dL all other times of the day Specimen Anatomical Collection Method Collection Time Receive d Time (Source) Location / / Volume Laterality Blood specimen 04/26/2011 8:29 AM 012 8:29 (specimen) EST AM EST Kirsten Damon MD POINT OF CARE TEST ORDERABLE S Performing Organization Address City/State/ZIP Code Phon e Number [place] [phone] HOSPITAL LABORATORY Drive [facility] documented in this encounter Visit Diagnoses Not on filedocumented in this encounter Administered Medications Inactive Administered Medications - up to 3 most recent administrations Medication Order MAR Action Action Date Dose Rate Site sodium chloride 0.9% New Bag 04/26/2011 8:30 AM EST 30 mL/hr 30 mL/hr infusion 30 mL/hr, Intravenous, CONTINUOUS, Starting on Mon04/26/11 at 0830, Until Mon04/26/11 at 1403, Endoscopy (Day of Procedure) documented in this encounter Active and Recently Administered Medications Times are shown in EST. Continuous Medication Order 04/24/2011 04/25/2011 04/26/2011 sodium chloride 0.9% infusion (CANCELED) 0830 (New Bag - Provider: Radha Grace RN) 30 mL/hr, at 30 mL/hr, Intravenous, CONT INUOUS, Starting Mon04/26/11 at 0830, Until 04/26/11 at 1403, Endo (Day of Procedure) PRN Medication Order 04/24/2011 04/25/2011 04/26/2011 benzocaine (HURRICANE) 20 % oral spray (CANCELED) 0937 (New Bag - Provider: Kirsten Damon MD - Comment: applied to back of tongue/throat) CONTINUOUS PRN, Pain, Starting Mon at 0937, Intra-Operative (Intra-Procedure) fentaNYL 50mcg/mL injection (CANCELED) 0931 (Given - Provider: Masha Johnson RN)0940 (Given - Provider: Masha Johnson RN)0942 (Given - Provider: Masha Johnson RN) ONCE PRN, Starting 04/26/11 at 0931, Until 04/26/11 at 1403, Pain, Intra- Operative (Intra-Procedure), Routine midazolam (VERSED) injection (CANCELED) 0931 (Given - Provider: Masha Johnson RN)0939 (Given - Provider: Masha Johnson RN)0936 (Given - Provider: Masha Johnson RN) ONCE PRN, Starting 04/26/11 at 0931, Until 04/26/11 at 1403, Sleep, Intra- Operative (Intra-Procedure), Routine documented in this encounter Care Teams Bottle Packing Machine Cleaner Relationship Specialty Start Date End Date Altaf Hoover MD PCP - General 04/19/11 09/18/[address] [place] [address] documented as of this encounter
--- OUTSIDE RECORDS SUMMARY | 2021-12-17 01:02 | XMS_ITS | Encounter Summary ---
:1965 Author Organization [place] [address] Care Team Providers Name Role Phone Unavailable Primary Care Provider Unavailable Encounter Details Date Type Department Care Team Description 09/27/2018 Surgery Gastroenterology at [facility] Luc Hdz UPPER GASTROINTESTINAL [facility] Department Danika Temple MD ENDOSCOPY,[place] [address] [facility] MULTIPLE ([facility] [phone] Rodriguez) [place] [address] Social History Tobacco Use Types Packs/Day Years Used Date Current Every Day Smoker Cigarettes 2 Smokeless Tobacco: Never Used Alcohol Use Standard Drinks/Week Comments Yes 7 (1 standard drink = 0.6 oz pure alcoho l) Alcohol Habits Answer Date Recorded How often do you have a drink containing 4 or more times a w circle 07/05/2018 alcohol? How many drinks containing alcohol [...] - 09/27/2018 8:16 AM EDT Please call [phone] before 8pm Mon-Fri with problems, questions or concerns. If you call after 8pm or on weekends, call the Hospital at [phone] and ask to speak to the Coating Machine Operator Helper information security specialist and the roller mill operator will contact that person for you. AttachmentsThe following attachments cannot be sent through Care Everywhere.EGD (Upper Endoscopy): Post-op (Tunisian)documented in this encounter Medications at Time of [...] Ophthalmology Tania Gates , OD [facility] OPHTHALMOLOGY [place], [place] [address] (Wo rk) Scheduled Procedures Name [...] MORSELIZED (WRVU *) MODIFIER K2 [facility] [place] STENOSIS & HNP & MYELOPATHY documented as [...] AM 9 8:12 EDT AM EDT Narrative [facility] - 09/27/2018 8:12 AM EDT Specimen requisition ordered. ??Separate Pathology report to follow Luc Hdz MD PATHOLOGY/CYTOLOGY ORDERABLE S Performing Organization Address City/[facility]/ZIP [place] [address] Specimen to Pathology (09/27/2018 8:12 AM EDT) Specimen Anatomical Collection Method Collection Time Receive d Time (Source) Location / / Volume Laterality AP Specimen 09/27/2018 8:12 AM 9 8:12 EDT AM EDT Narrative [facility] - 09/27/2018 8:12 AM EDT Specimen requisition ordered. ??Separate Pathology report to follow Luc Hdz MD PATHOLOGY/CYTOLOGY ORDERABLE S Performing Organization Address City/[facility]/ZIP [place] [address] Surgical Pathology Report (09/27/2018 8:05 AM EDT) Component Value Ref Test Analysis Performed At Patholo gist Range Method Time Signature Surgical [id number] ? Location: 4T; EA09; A [facility] Report The signing pathologist has (i) examined the relevant preparation(s) for the [facility] specimen(s) and (ii) rendered or confirmed the diagnosis(es) . HOSPITAL LABORATORY . ?Surgic al Pathology DIAGNOSIS A - Duodenum, biopsy: - ??Duodenal mucosa, negative for diagnostic abnormality ??. B - Z line, biopsy: - ??Diaz's esophagus, negative for dysplasia. CR-PX Electronically signed by: ??Rc Mathews MD Verified: ??10/01/2018 ?Pathologist Performed at: ??-[facility] Dept. of Pathology, [place], [place] CLINICAL INFORMATION Specimen Submitted: A - [...] Organization Address City/State/ZIP Code Phon e Number [facility] [place] [address] [facility] [address]ORY [address] POCT Glucose (09/27/2018 7:49 AM EDT) athologist Signature POC Glucose 124 65 - 199 ADRY OROPEZA mg/dL [facility] LABORATORY Comment: Supplemental ranges: <140 mg/dL before meals <180 mg/dL all other times of the day Specimen Anatomical Collection Method Collection Time Receive d Time (Source) Location / / Volume Laterality Blood specimen 09/27/2018 7:49 AM 019 7:49 (specimen) EDT AM EDT Luc Hdz MD POINT OF CARE TEST ORDERABLE S Performing Organization Address [facility]/ZIP [facility] [place] [address] UPPER GI ENDOSCOPY (09/27/2018 7:40 AM EDT) [facility] Method Time Signature UPPER GI [facility] ENDOSCOPY Endoscopy Procedure Date: 09/27/2018 7:40 AM ? Patient Name: Samy Patricio ? N: [id number] ? Date of : 1965 ? Age: 52 ? Order #: [id number] ? Instrument Name: [id number] ? Procedure: ? Upper GI endoscopy Indications: [...] reactions. The ? Endoscope was introduced thro h the ? mouth, and advanced to the [...] Laterality 09/27/2018 7:40 AM EDT Abi Lazaro CREASING AND CUTTING PRESS FEEDER GENERAL SURGICAL ORDERABLES Performing Organization Address City/State/ZIP Code Phon e Number [facility] documented in this encounter Visit Diagnoses Not on filedocumented in this encounter Administered Medications Inactive Administered Medications - up to 3 most recent administrations Medication Order MAR Action Action Date Dose Rate Site fentaNYL 50 mcg/mL multi-dose Given 09/27/2018 8:07 AM EDT 50 mc g injection ONCE PRN, Starting on Migdalia 09/27/18 at 0755, Until [place] 09/27/18 at 1046, Intra-Operative (Intra-Procedure), Routine Given 09/27/2018 8:04 AM EDT 50 mcg Given 09/27/2018 8:01 AM EDT 50 mcg lactated ringers infusion New Bag 09/27/2018 7:45 AM EDT 100 mL/hr 100 mL/hr 100 mL/hr, Intravenous, CONTINUOUS, Starting on Migd[place] 09/27/18 at 0745, Until [place] 09/27/18 at 0835, Endoscopy (Day of Procedure) midazolam (PF) (VERSED) multi-dose injec tion Given 09/27/2018 8:04 AM EDT 1 mg ONCE PRN, Starting on Migd[place] 09/27/18 at 0755, Until [place] 09/27/18 at 1046, Intra-Operative (Intra-Procedure), Routine Given 09/27/2018 8:01 AM EDT 1 mg Given 09/27/2018 7:58 AM EDT 1 mg documented in this encounter Active and Recently Administered Medications Times are shown in EDT. Continuous Medication Order 09/25/2018 09/26/2018 09/27/2018 lactated ringers infusion (CANCELED) 0745 (New Bag - Provider: Candace Dupree RN) 100 mL/hr, at 100 mL/hr, Intravenous, CO NTINUOUS, Starting Migd[place] 09/27/18 at 0745, Until [place] 09/27/18 at 0835, Endo (Day of Procedure) PRN Medication Order 09/25/2018 09/26/2018 09/27/2018 fentaNYL 50 mcg/mL multi-dose injection (CANCELED) 0755 (Given - Provider: Jyoti Doll RN)0758 (Given - Provider: Jyoti Doll RN)0801 (Given - Provider: Jyoti Doll RN)0804 (Given - Provider: Jyoti Doll RN)0807 (Given - Provider: Jyoti Doll RN) ONCE PRN, Starting [place] 09/27/18 at 0755, Until [place] 09/27/18 at 1046, Intra- Operative (Intra-Procedure), Routine midazolam (PF) (VERSED) multi-dose injection (CANCELED) 0755 (Given - Provider: Jyoti Doll RN)0758 (Given - Provider: Jyoti Doll RN)0801 (Given - Provider: Jyoti Doll RN)0804 (Given - Provider: Jyoti Doll RN) ONCE PRN, Starting Migd[place] 09/27/18 at 0755, Until [place] 09/27/18 at 1046, Intra- Operative (Intra-Procedure), Routine documented in this encounter
--- OUTSIDE RECORDS SUMMARY | 2021-12-17 01:02 | XMS_ITS | Encounter Summary ---
:1965 Author Organization [facility] [place] [address] Care Team Providers Name Role Phone Sae Marr MD Primary Care Provider Encounter Details Date Type Department Care Team Description 08/06/2019 Ancillary Procedure Radiology Library at [place] Gutierrez [place] [facility] [address] [place] [address] [facility] [id number] [place] [phone] Social History Tobacco Use Types Packs/Day Years Used Date Current Every Day Smoker Cigarettes 2 Smokeless Tobacco: Never Used Alcohol Use Standard Drinks/Week Comments Yes 7 (1 standard drink = 0.6 oz pure alcoho l) Alcohol Habits Answer Date Recorded How often do you have a drink containing 4 or more times a w [place] 07/05/2018 alcohol? How many drinks containing [...] Gates , OD [facility] OPHTHAL[facility]OLOGY DE PT [place], [place] [address] (Wo rk) Scheduled Procedures Name [...] MORSELIZED (WRVU *) MODIFIER K2 MEDICAL - [place] STENOSIS & HNP & MYELOPATHY documented as of this encounter Procedures Procedure Name Priority Date/Time Associated Diagnosis Comme nts FILM LIBRARY Routine 08/06/2019 12:34 AM Results for this STORAGE ONLY DX EDT procedure ar e in CHEST the results section. documented in this encounter Results Film Library- Storage Only DX Chest (08/06/2019 12:34 AM EDT) Specimen (Source) Anatomical Location Collection Method / Collectio n Time Received Time / Laterality Volume Narrative [facility] - 08/06/2019 12:34 AM EDT This exam is auto-finalizing. It's purpo se is for storage only. Dallas Gutierrez MD IMG FILM LIBRARY ORDERABLES Performing Organization Address City/State/ZIP Code Phon e Number RAD [place], [place] documented in this encounter Visit Diagnoses Not on filedocumented in this encounter Care Teams Wire Wrapping Machine Operator Relationship Specialty Start Date End Date Sae Marr MD PCP - General General Internal Medicine 08/06/19 [address] [place] [address] documented as of this encounter
--- OUTSIDE RECORDS SUMMARY | 2021-12-17 01:02 | XMS_ITS | Encounter Summary ---
:1965 Author Organization [facility] [place] [address] Care Team Providers Name Role Phone Altaf Hoover MD Primary Care Provider Reason for Visit Reason Comments Low Back Pain Bilateral Hip Pain Bilateral Leg Pain Consultation (Routine) - Closed Specialty Diagnoses / Procedures Referred By Contact Refer red To Contact Orthopaedics Diagnoses Chronic left-sided low back pain/ left sciatica/ ask about imaging Altaf Hoover MD [facility] [address] [place], [place] [address] [place] [address] Phone: Referral ID Status Reason Start Date Expiration Date Visits Requ ested Visits Authorized [id number] Closed 02/06/2017 02/06/2018 1 1 Encounter Details Date Type Department Care Team Description 02/08/2017 Office Visit [facility] at [facility] Simental, Chronic midline low Tj VASQUEZ back pain without [facility] [address] [place] [facility] [address] [place] [address] [phone] Social History Tobacco Use Types Packs/Day Years Used Date Current Every Day Smoker Cigarettes 2 Smokeless Tobacco: Never Used Alcohol Use Standard Drinks/Week Comments Yes 0 (1 standard drink = 0.6 oz pure alcoho l) Alcohol Habits Answer Date Recorded How often do you have a drink containing 4 or more times a w [place] 07/05/2018 alcohol? How many drinks containing alcohol [...] Sign Reading Time Taken Comments Blood Pressure 162/90 02/08/2017 8:41 AM EST Pulse - - Temperature - - Respiratory Rate - - Oxygen Saturation - - Inhaled Oxygen Concentration - - Weight 122.5 kg (270 lb) 02/08/2017 8:41 AM EST fully d ressed Height 182.9 cm (6') 02/08/2017 8:41 AM EST Body Mass Index 36.62 02/08/2017 8:41 AM EST documented in this encounter Progress Notes Teddy Simental MD - 02/08/2017 9:20 AM EST Mr. Patricio is a 51-year-old gentleman seen today in the Spine Center in consultation from Dr. Hoover. He is seen and evaluated for chronic low back pain going back over 30 years. On very rare occasion, he has some discomfort in his legs, but no radicular pain, no neurogenic claudication symptoms. He does not recall any specific accident or injury, but he has been dealing with this back pain his whole life. He has had recommendations for injections and surgery. He has not gone through with these. He is self-treating with anti-inflammatory medications. Night pain is not a frequent problem. He has no distal numbness or weakness. His review of systems is negative for GI, , or constitutional symptoms. 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 He has a history of thoracic pain and cervical pain. He has type 2 diabetes which he reports being in good control. He smokes 2 packs of cigarettes per day. 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 He has a history of depression and COPD. He is disabled and has no regular employment. He reports nausea and vomiting to an unknown antibiotic. His height is 6 feet, weight 270 pounds. Body mass index 36.61. Pain over the past week graded as a 5. He does report that his back pain is intermittent with good times and bad times, specific changes for that are unclear to him. This is a very pleasant gentleman. He moves about the office without limitation. His gait is normal. He can toe and heel walk without weakness. On inspection from the back, he has a level pelvis, a straight spine, all of which is normal in appearance with no tenderness to palpation in the back or his sciatic notches. His lower extremity motor exam is completely normal. His sensory function is intact to light touch. His reflexes are absent at the knees and ankles. His straight leg raise test is negative. His calf musculature is soft and nontender bilaterally. He has no distal edema, atrophy, fasciculations, or spasticity. Plain x-rays are reviewed from 12/07/15 demonstrating age appropriate degenerative changes. He appears to have a transitional vertebra at the lumbosacral junction with large transverse processes, articulating with the sacrum particularly on the right side. There may be a spondylolysis with a hint of that seen on the AP x-ray, but I really do not see any other indication of that at the L5 vertebra. MRI is reviewed from 12/15/15 from [facility]. 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 Assuming that is the L5 vertebra. He has degenerative changes from L2-3, L3-4 and L4-5 predominately, but also above that. His MRI to my review demonstrates no substantial nerve root compression, no malalignment, no deformity, no fracture, no pathologic findings. No evidence of any infection. IMPRESSION: Chronic low back pain over the decades without specific known etiology and the MRI demonstrating degenerative changes which almost assuredly occurred after the onset of his symptoms, so it would be very difficult to assume that these more recent age-related findings are responsible for decades of low back pain. In summation, I see no indication for any operative intervention on this gentleman's back. This is consistent with his goals which are to avoid surgery. He has had tenderness on his stomach and so even if offered, he would not find that a reasonable option. I have recommended that he continue to walk. He walks about 2 to 2.5 miles a couple of days a week. I have suggested he do this more frequently, work on weight loss, smoking cessation and I reviewed the reasons for doing that and the literature behind these recommendations. I do not think these changes would make his back pain go away, but they may lessen the severity and frequency of his flare ups. I did review with him in detail the entire MRI showing that every single nerve root in his low back is without compression throughout the spine and neural foramen. His questions were answered I believe. No further follow up indicated at this time. Spine Center Response Trends Patient-reported scores: myD-H Spine Questionnaire responses 02/08/2017 Oswestry Disability Index (Range: 0-100) 26 (Moderate disability) PROMIS-10 Physical Health Score 34.9 PROMIS-10 Mental Health Score 36.3 documented in this encounter Plan of Treatment Upcoming Encounters Date Type Specialty Care Team Description 01/26/2022 Office Visit Ophthalmology Tania Gates , OD [facility] OPHTHALMOLOGY [place], [place] [address] (Wo rk) Scheduled Procedures Name [...] MORSELIZED (WRVU *) MODIFIER K2 MEDICAL - [place] STENOSIS & HNP & MYELOPATHY documented as of this encounter Visit Diagnoses Diagnosis Chronic midline low back pain without sc iatica documented in this encounter Care Teams Life Agent Relationship Specialty Start Date End Date Altaf Hoover MD PCP - General 04/19/11 09/18/[address] [place] [address] documented as of this encounter
--- OUTSIDE RECORDS SUMMARY | 2021-12-17 01:02 | XMS_ITS | Encounter Summary ---
:1965 Author Organization [facility] [place] [address] Care Team Providers Name Role Phone Sae Marr MD Primary Care Provider Encounter Details Date Type Department Care Team Description 08/06/2019 External Results [place] [address] Social History Tobacco Use Types Packs/Day Years Used Date Current Every Day Smoker Cigarettes 2 Smokeless Tobacco: Never Used Alcohol Use Standard Drinks/Week Comments Yes 7 (1 standard drink = 0.6 oz pure alcoho l) Alcohol Habits Answer Date Recorded How often do you have a drink containing 4 or more times a w [place] 07/05/2018 alcohol? How many drinks containing alcohol [...] Office Visit Ophthalmology Tania Gates , OD [facility] OPHTHALMOLOGY [place], [place] [address] (Wo rk) Scheduled Procedures Name [...] Associated Diagnosis Comme nts ECG SCAN Routine 08/06/2019 Results for thi s procedure are in the resu lts section. documented in this encounter Results Scan Doc: ECG (08/06/2019) Narrative This result has an attachment that is no t available. Historical Provider MEDIA MGR SCAN EXT ORDR/RSLT documented in this encounter Visit Diagnoses Not on filedocumented in this encounter Care Teams Prototype Assembler Electronics Relationship Specialty Start Date End Date Sae Marr MD PCP - General General Internal Medicine 08/06/19 [address] [place] [address] documented as of this encounter
--- OUTSIDE RECORDS SUMMARY | 2021-12-17 01:06 | XMS_ITS | Encounter Summary ---
:1965 Author Organization [facility] Address [address] [place] [address] Care Team Providers Name Role Phone Derrick Melara MD Primary Care Provider Encounter Details Date Type Department Care Team Description 11/09/2015 Results Only [facility]- Naomie Parkinson, [address] [place] [address] [address] [place] [place], [place] [id number] (Wo rk) Social History Tobacco Use Types Packs/Day Years Used Date Never Assessed Sex Assigned at Date Recorded Not on file documented as of this encounter Plan of Treatment Not on filedocumented as of this encounter Procedures Procedure Name Priority Date/Time Associated Diagnosis Comme [facility] SURGICAL PATHOLOGY Routine 11/09/2015 19:37 Resul ts for this EDT procedure are i n the results section. documented in this encounter Results SURGICAL PATHOLOGY (11/09/2015 19:37 EDT) Pathology SURGICAL PATHOLOGY REPORT [facility] Report: Reports generated via electronic interface conta in original data; [facility] however they are lacking the format of the original re port. SERVICES Caution should be taken when reading/interpreting unfo rmatted reports. Name: ? SAMY PATRICIO ? Accession #: ? [id number] ? : ? 1965 (Age: [age]) ??M ? Collect Date: ? 11/09/2015 ? Location: ? [facility] ? Receive Date: ? 11/09/19 16 ? Provider: NAOMIE BLUM MD Copy to: SNEHAL MARAVILLA MD ? Final Pathologic Diagnosis: A. SMALL BOWEL, DUODENUM, BIOPSY: - ??Duodenal mucosa with peptic duodenitis B. GASTROESOPHAGEAL JUNCTION, BIOPSY: - ??Squamous and adjoining cardia type mucosa with fea tures of reflux esophagitis. - ??No intestinal metaplasia or dysplasia identified. Comment: Part B: Deeper sections examined. Non-specific stainin g is not definite for unequivocal Helicobacter pylori (immunos taining). This slide was also reviewed at the intradepartmental GI consensus who concurs with the impression; Clinical correlation is recommended. ANTIBODY(CLONE)(BLOCK):RESULT H PYLORI (Rabbit Monoclonal (SP48), [place]) (B1): Neg ative for definitive microorganisms NOTE: ??One or more of the reagents used in imm unoperoxidase testing in this case may not have been cleared or approved by the U.S. Food and Drug Administration (FDA). ??The FDA has determined that such clearance or approval is not necessary. ??These tests are used for clinical purposes. ??They should not be regarded as investigational or for research. ??These r eagents' performance characteristics have been determined by [facility]. ??The positive and negative controls worked ap propriately. This laboratory is certified unde r the Clinical Laboratory Improvement Amendments of 1988 (CLIA-88) as qualified to perform high complexity clinical laboratory testing. ?? Dr. Espinosa 11/13/2015 1:40 PM Document reviewed and electronically signed by: CHLOÉ ESPINOSA MD Report ??Date: 11/17/2015 17:46 By the signature above, the attending physician certif ies that he/she has personally conducted a gross and/or microscopic examin ation of the described specimens and rendered or confirmed the above diagnosi s. Specimen(s) Received: A. ??Duodenum bx B. ??GE junction Clinical History: Abdominal pain; hx of Diaz's Gross Description: A. ?Received in formalin labelled with proper p atient identification (initials S, P) and duodenum bx is a single pi nk-figueroa tissue fragment (0.6 x 0.4 x 0.3 cm). Submitted intact in block A1. B. ?Received in formalin labelled with proper p atient identification (initials S, P) and GE junc tion are three white to pink-figueroa tissues (0.4 x 0.3 x 0.1 cm to 0.4 x 0.3 x 0.3 cm). Entirely submitted in block B1. ISABELLE Bates (ASCP) 11/10/2015 8:56 AM End of Report Specimen Performing Organization Address City/State/ZIP Code Phon e Number [facility] [address] [place] [address] SERVICES documented in this encounter Visit Diagnoses Not on filedocumented in this encounter Care Teams Location Director Relationship Specialty Start Date End Date Derrick Melara MD PCP - General 09/26/12 11/11/15 [address] [facility] [place] [id number] documented as of this encounter
--- OUTSIDE RECORDS SUMMARY | 2021-12-17 01:06 | XMS_ITS | Encounter Summary ---
:1965 Author Organization [facility] Address [address] [place] [address] Care Team Providers Name Role Phone Altaf Hoover MD Primary Care Provider Unavailable Encounter Details Date Type Department Care Team Description 04/12/2019 Travel Social History Tobacco Use Types Packs/Day Years Used Date Current Every Day Smoker 2 38 Smokeless Tobacco: Never Used Alcohol Use Standard Drinks/Week Comments Yes 0 (1 standard drink = 0.6 oz pure alcoho l) Sex Assigned at Date Recorded Not on file documented as of this encounter Functional Status Functional Status Response Date of Assessment Are you deaf or do you have serious difficulty hearing? No 08/25/2017 Is this person blind or does he/she have serious Yes 04/12/2019 difficulty seeing even when wearing glasses? Do you have serious difficulty walking or climbing No 08/25/2017 stairs? (5 years old or older) Do you have difficulty dressing or bathing? (5 years old No 08/25/2017 or older) Because of a physical, mental, or emotional condition, Yes 04/12/2019 does this person have difficulty doing errands alone such as visiting a doctor's office or shopping? Cognitive Status Response Date of Assessment Because of a physical, mental, or emotional condition, Yes 04/12/2019 does this person have serious difficulty concentrating, remembering, or making decisions? documented as of this encounter Plan of Treatment Not on filedocumented as of this encounter Visit Diagnoses Not on filedocumented in this encounter Care Teams Bagman/Woman Relationship Specialty Start Date End Date Altaf Hoover MD PCP - General 11/12/15 04/12/20 documented as of this encounter
--- OUTSIDE RECORDS SUMMARY | 2021-12-17 01:06 | XMS_ITS | Encounter Summary ---
:1965 Author Organization [facility] Address [address] [place] [address] Care Team Providers Name Role Phone Altaf Hoover MD Primary Care Provider Unavailable Reason for Referral Consult (Routine) - New Request Specialty Diagnoses / Procedures Referred By Contact Refer red To Contact Diagnoses NSTEMI (non-ST elevated myocardial infarction) ([facility]) ([facility]) Timothy Medel Lischke, Stefan, MD PA-C [address] [facility] 111 [facility] [address] [place] [phone] [facility] [address] [place] [phone] Referral ID Status Reason Start Expiration Visits Visits Date Date Requested Authorized [id number] New Request Specialty 08/25/2017 1 1 Services Required Question Answer Reason for Request: cad Expected Discharge Date (Inpatient Only): 08/26/2017 Practice Site (External Referral Only): [facility] onsult (Routine) - Closed Specialty Diagnoses / Procedures Referred By Contact Refer red To Contact Diagnoses NSTEMI (non-ST elevated myocardial infarction) ([facility]) ([facility]) Timothy Medel PA-C [address] [phone] Referral ID Status Reason Start Date Expiration Date Visits V isits Requested Authorized [id number] Closed Specialty 08/25/2017 1 1 Services Required Question Answer Reason for Request: cad Expected Discharge Date (Inpatient Only): 08/26/2017 Practice Site (External Referral Only): [facility] ollow Up (Routine) - New Request Specialty Diagnoses / Procedures Referred By Contact Refer red To Contact Diagnoses NSTEMI (non-ST elevated myocardial infarction) ([facility]) ([facility]) Timothy Medel PA-C [address] [place] [phone] Referral ID Status Reason Start Expiration Visits Visits Date Date Requested Authorized [id number] New Request Continuity of 08/25/2017 1 1 Care Question Answer Reason for Request: cad Expected Discharge Date (Inpatient Only): 08/26/2017 Reason for Visit Reason Comments Chest Pain pt presents from [facility] for N STEMI. pt CP began at 1400. 1st trop .03, 2nd trop .98. CXR neg. a nitro d rip was initiated at 15 mcg/min. heparin drip started at 5347-1625 units/h r with a 4000 unit bolus. pt recieved 4 mg zofran as well. OA pt appear s in NAD, VSS, pain is 1/10 described as mostly pressure. Encounter Details Date Type Department Care Team Description 08/25/2017 - Hospital [facility] Marietta Solomon MD [address] [phone] NSTEMI (non-ST 08/26/2017 Encounter Cardiac/Telemetry Kerri Stein MD MPH [address] [place] [phone] elevated myocardial Unit Chang Garduno MD [address] [phone] infarction) [address] ([facility]) (Primary [place], [place] Dx) [address] Social History Tobacco Use Types Packs/Day Years Used Date Current Every Day Smoker 2 38 Smokeless Tobacco: Never Used Alcohol Use Standard Drinks/Week Comments Yes 0 (1 standard drink = 0.6 oz pure alcoho l) Sex Assigned at Date Recorded Not on file documented as of this encounter Last Filed Vital Signs Vital Sign Reading Time Taken Comments Blood Pressure 141/84 08/26/2017 0806 EDT Pulse 68 08/25/2017 0952 EDT Temperature 36.2 ??C (97.2 ??F) 08/26/2017 0806 EDT Respiratory Rate 16 08/26/2017 0806 EDT Oxygen Saturation 97% 08/26/2017 0806 EDT Inhaled Oxygen Concentration - - Weight 117.9 kg (260 lb) 08/24/2017 2306 EDT Height 182.9 cm (6') 08/25/2017 0002 EDT Body Mass Index 35.26 08/24/2017 2306 EDT documented in this encounter Functional Status Functional Status Response Date of Assessment Are you deaf or do you have serious difficulty hearing? No 08/25/2017 Are you blind or do you have serious difficulty seeing, No 08/25/2017 even when wearing glasses? Do you have serious difficulty walking or climbing No 08/25/2017 stairs? (5 years old or older) Do you have difficulty dressing or bathing? (5 years old No 08/25/2017 or older) Because of a physical, mental, or emotional condition, do No 08/25/2017 you have difficulty doing errands alone such as visiting a doctor's office or shopping? (15 years old or older) Cognitive Status Response Date of Assessment Because of a physical, mental, or emotional condition, do No 08/25/2017 you have serious difficulty concentrating, remembering, or making decisions? 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-I25.10[ICD-10-CM] F17.210 Nicotine dependence, cigarettes, uncomplicated-F17.210[ICD-10-CM] G47.33 Obstructive sleep apnea (adult) ( pediatric)-G47.33[ICD-10-CM] E78.5 Hyperlipidemia, unspecified-E78.5[ ICD-10-CM] E11.22 Type 2 diabetes mellitus with atilio betic chronic kidney disease-E11.22[ICD-10-CM] N18.9 Chronic kidney disease, unspecifie d-N18.9[ICD-10-CM] Z82.49 Family history of ischemic heart disease and other diseases of the circulatory system-Z82.49[ICD-10-CM] Z79.84 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 *NSTEMI (non-ST elevated myocardial infarction) ([facility]) 08/25/2017 ??? Tobacco abuse 08/25/2017 ??? CARLOTA (obstructive sleep apnea) 08/25/2017 ??? Type 2 diabetes mellitus, without long-term current use of insulin ([facility]) 08/25/2017 ??? Hyperlipidemia 08/25/2017 ??? CAITLYN (acute kidney injury) ([facility]) 08/25/2017 Resolved Hospital Problems Diagnosis Date Noted Date Resolved No resolved problems to display. Principal Procedure: [facility] (08/25/2017) Left main: Free of angiographically significant disease. Left anterior descending: Minor luminal irregularities. Left circumflex: Proximal 80%. Right coronary artery: Dominant. Mid 90% The left circumflex coronary artery and right coronary artery were stented using a total of two Resolute EDEN (3.5 and 2.5, respectively). Hospital Course Samy Patricio is a 51 y/o man with a PMH significant for DMI, CKD, CARLOTA (non- compliant with BiPAP), tobacco abuse (current 2 PPD with >80 pack/yr hx) and strong family history of WA (brother 40's, mother 50's, father 60's) with no personal prior cardiac history who was transferred from [facility] for NSTEMI. ?? At [facility] he was noted to be hemodynamically stable. An EKG was done which showed TW flattening in III, aVF without significant ST changes. Pain was relieved temporarily with SL NTG x1. He was loaded with ASA, plavix, given metoprolol, and started on heparin gtt with bolus. At [facility], pain continued requiring nitro gtt and dilaudid. He was taken for LHC with findings as above. TTE showed LVEF of 55-60%with hypokinetic lateral wall (full report below). His hospital course is outlined by problem below. NSTEMI, type I: Troponin peak to 12.4. Improved to 8.5. Was treated with ASA, Ticargrelor, Metoprolol, Atorvastatin, Lisinopril. Chest pain completely resolved following PCI. Unfortunately due to financial issues the patient was unable to afford ticagrelor and was subsequently transitioned to clopidogrel the day of discharge. ?? CKD vs CAITLYN: Uncertain baseline. Improved to 1 from 1.4. Reported CKD history. Secondary to NSTEMI and pre-renal state. ?? Tobacco abuse: Extensive smoking history. Smoking cessation counseling occurred during hospitalization with resources and education offered. ?? DMII/HLD: Hgb A1c 9.6. Treated with SSI with 10 u aspart required on 08/25. Urine protein/cr ratio at0.04. Started on lisinopril as above. ?? CARLOTA: Not been using BiPAP at home. Refused BiPAP while in hospital. Educated on importance of use and cardiopulmonary benefits. He was ultimately discharged home improved/stable condition on 26-AUG-2017 in improved/stable condition with instructions to follow up with PCP and in the Cardiology clinic. Pertinent Imaging Imaging: TTE 08/25/17 Summary: ??1. Left ventricle: the cavity size was normal. Wall thickness was at the upper limits of normal. Systolic function was normal. The estimated ejection fraction was 55-60%. Endocardial definiton was limited. The lateral wall appeared hypokinetic in the some views (loop 34). ??2. Right ventricle: The cavity size was normal. Wall thickness was normal. Systolic function was normal. Items for follow up: - New start on lisinopril, metoprolol, ASA, clopidogrel (in place of ticagrelor b/c of finances) - Further discussions regarding BiPAP compliance - Improved glycemic control. Given WA, consider starting insulin - PCP and cardiology follow up - Increase lisinopril as tolerated Allergies and Immunizations Allergies Allergen Reactions ??? Doxycycline GI upset ??? Venlafaxine GI upset There is no immunization history on file for this patient. Transition of Care Plans Condition at Discharge Good Assessment at Discharge Vital signs: No data found. Discharge Medications: START taking these medications Sig aspirin 81 mg EC tablet Start taking on: 08/27/2017 Take 1 Tab by mouth daily. Quantity: 90 Tab clopidogrel 75 mg tablet Commonly known as: PLAVIX Start taking on: 08/27/2017 Take 1 Tab by mouth daily. Quantity: 90 Tab lisinopril 5 mg tablet Commonly known as: PRINIVIL, ZESTRIL Start taking on: 08/27/2017 Take 1 Tab by mouth daily. Quantity: 90 Tab metoprolol XL 25 mg tablet Commonly known as: TOPROL-XL Take 1 Tab by mouth daily. Quantity: 90 Tab nicotine 14 mg/24 hr patch Commonly known as: NICODERM CQ Place 1 Patch onto the skin daily. Quantity: 10 Each CHANGE how you take these medications Sig atorvastatin 40 mg tablet Commonly known as: LIPITOR Start taking on: 08/27/2017 What changed: - medication strength - how much to take Take 1 Tab by mouth daily. Quantity: 90 Tab CONTINUE taking these medications Sig glipiZIDE 5 mg tablet Commonly known as: GLUCOTROL Take 5 mg by mouth daily. metFORMIN 500 mg tablet Commonly known as: GLUCOPHAGE Take 1,000 mg by mouth daily. omeprazole 20 mg capsule Commonly known as: PRILOSEC Take 40 mg by mouth daily. Is the patient being discharged with a diagnosis of Systolic Heart Failure? No Coumadin Management N/A Results Pending at Discharge Test results still pending from this admission None Last Lab Results at Discharge BUN: Lab Results Component Value Date BUN 16 08/26/2017 Creatinine: Lab Results Component Value Date CREATININE 0.97 08/26/2017 CBC: Lab Results Component Value Date WBC 7.13 08/26/2017 RBC 4.58 08/26/2017 HGB 14.3 08/26/2017 HCT 40.4 08/26/2017 MCV 88 08/26/2017 MCH 31.2 08/26/2017 MCHC 35.4 08/26/2017 PLT 195 08/26/2017 DIFFTYPE Manual 02/12/2001 SEDRATE 15 10/24/2000 Electrolytes: Lab Results Component Value Date NA 135 (L) 08/26/2017 K 4.2 08/26/2017 CL 105 08/26/2017 CO2 25 08/26/2017 HGB: Lab Results Component Value Date HGB 14.3 08/26/2017 Lab Results Component Value Date HGBA1C 9.6 08/24/2017 Discharge Follow Up Appointments Scheduled with [facility] Appointments Outside of [facility] We Will Schedule Follow-up appointments and procedures Amb Consult/Follow Up Cardiac Rehabilitation Reason for Request: cad Expected Discharge Date (Inpatient Only): 08/26/2017 Practice Site (External Referral Only): [facility] Authorizing Provider: Timothy Medel PA Amb Consult/Follow Up Cardiology Reason for Request: cad Expected Discharge Date (Inpatient Only): 08/26/2017 Practice Site (External Referral Only): [facility] Authorizing Provider: Timothy Medel PA Amb Consult/Follow Up Primary Care Physician Reason for Request: cad Expected Discharge Date (Inpatient Only): 08/26/2017 Authorizing Provider: Timothy Medel PA Heather Wright, Internal Medicine PGY-3, #[id number] 08/26/17 21:23 documented in this encounter Medications at Time of Discharge Medication Sig Dispensed Refills Start Date End Date aspirin 81 mg EC tablet Take 1 Tab by mouth 90 Tab 3 daily. atorvastatin (LIPITOR) 40 Take 1 Tab by mouth 90 Tab 3 0 08/27/2017 mg tablet daily. glipiZIDE (GLUCOTROL) 5 mg Take 5 mg by mouth 0 tablet daily. clopidogrel (PLAVIX) 75 mg Take 1 Tab by mouth 90 Tab 3 08/27/2017 02/13/2019 tablet daily. lisinopril (PRINIVIL, Take 1 Tab by mouth 90 Tab 3 08/2702/13/2019 ZESTRIL) 5 mg tablet daily. metFORMIN (GLUCOPHAGE) 500 Take 1,000 mg by 0 04/12/2019 mg tablet mouth daily. metoprolol XL (TOPROL-XL) Take 1 Tab by mouth 90 Tab 3 0 08/26/2017 01/24/2019 25 mg tablet daily. nicotine (NICODERM CQ) 14 Place 1 Patch onto 10 Each 2 02/13/2019 mg/24 hr patch the skin daily. omeprazole (PRILOSEC) 20 Take 40 mg by mouth 0 01/24/2019 mg capsule daily. documented as of this encounter Ordered Prescriptions Prescription Sig Dispensed Refills Start Date End Date atorvastatin (LIPITOR) 40 Take 1 Tab by mouth 90 Tab 3 0 08/27/2017 mg tablet daily. aspirin 81 mg EC tablet Take 1 Tab by mouth 90 Tab 3 daily. clopidogrel (PLAVIX) 75 mg Take 1 Tab by mouth 90 Tab 3 08/27/2017 02/13/2019 tablet daily. metoprolol XL (TOPROL-XL) Take 1 Tab by mouth 90 Tab 3 0 08/26/2017 01/24/2019 25 mg tablet daily. lisinopril (PRINIVIL, Take 1 Tab by mouth 90 Tab 3 08/2702/13/2019 ZESTRIL) 5 mg tablet daily. ticagrelor (BRILINTA) 90 Take 1 Tab by mouth 60 Tab 0 08/26/2017 mg tablet 2 times daily. aspirin 81 mg EC tablet Take 1 Tab by mouth 30 Tab 0 08/26/2017 daily. nicotine (NICODERM CQ) 14 Place 1 Patch onto 10 Each 2 02/13/2019 mg/24 hr patch the skin daily. metoprolol XL (TOPROL-XL) Take 1 Tab by mouth 90 Tab 3 0 08/26/2017 08/26/2017 25 mg tablet daily. lisinopril (PRINIVIL, Take 1 Tab by mouth 30 Tab 0 08/2608/26/2017 ZESTRIL) 2.5 mg tablet daily. atorvastatin (LIPITOR) 40 Take 1 Tab by mouth 30 Tab 0 0 08/26/2017 08/26/2017 mg tablet daily. ticagrelor (BRILINTA) 90 Take 1 Tab by mouth 90 Tab 7 08/26/2017 mg tablet 2 times daily. documented in this encounter Discharge Disposition Disposition Code Departure Means Destination Home or Self Care documented in this encounter Progress Notes Timothy Medel PA - 08/25/2017 1633 EDT Ticagrelor 90mg daily without interruption x 1 year and Aspirin 81 mg daily lifetime reviewed with patient and the patient verbalizes understanding. Cardiac rehab reviewed with patient and the patient is willing to attend. Referral sent and written material given to patient. Follow up has been requested with [facility] at [facility]. Adan Lacey MD - 08/25/2017 1516 EDT Brief Cardiology Progress Note CC: Chest Pain ID: Samy is a 51 yo male with DMI, CKD, CARLOTA (non-compliant with BiPAP), tobacco abuse (current 2 PPD with >80 pack/yr hx), and strong family history of WA (brother 40's, mother 50's, father 60's) with no personal prior who was transferred from [facility] for NSTEMI type I. Noted to be HD stable at [facility]. EKG showed TW flattening in III, aVF without significant ST changes.Pain was relieved temporarily with SL NTG x1. He was loaded with ASA, plavix, given metoprolol, and started on heparin gtt with bolus. At [facility], pain continued requiring nitro gtt and dilaudid. He was taken for LHC with findings as below. TTE showed LVEF of 55-60% with hypokinetic lateral wall. Cardiac Cath - 08/25/17 Left main: Free of angiographically significant disease. Left anterior descending: Minor luminal irregularities. Left circumflex: Proximal 80%. Right coronary artery: Dominant. Mid 90% Interventional Procedure: Using standard technique, the left circumflex coronary artery and right coronary artery were stented using a total of two Resolute EDEN (3.5 and 2.5, respectively). Subjective: Samy states his chest pain has completely resolved. Denies associated SOB, dizziness, N/V. States hetolerated his meal following PCI and denies any pain or complications at his right radial site. Objective T 35.8, HR 64, BP 121/81, RR 18, O2 97% RA General: Pleasant, NAD HEENT: Sclera anicteric Cardio: Regular rate and rhythm, no m/r/g, JVD not elevated Pulm: Breathing comfortably on room air, no wheezes or crackles Abdomen: No tenderness to palpation, distention, or rigidity Extremities: No lower extremity edema. Right radial cath site with TR band and without hematoma, paraesthesias, pain Skin: No visible rashes Neuro: Alert, answering questions without difficulty, speech articulate, face symmetrical, moving all extremities Assessment/Plan: NSTEMI, type I: Troponin peak to 12.4. Latest at 8.5 - ASA 81mg daily - Ticargrelor 90mg BID - send to pharmacy - Metoprolol 12.5mg BID -> 25xl at time of discharge - Atorvastatin 40mg daily - Start lisinopril 2.5mg CKD vs CAITLYN: Uncertain baseline. Improved from 1 to 1.4. Reported CKD history - Cr in AM Tobacco abuse: - Smoking cessation counseling - Nicotine patch DMII/HLD: Hgb A1c 9.6 - Follow up lipids - SSI - Protonix 40mg daily - Urine protein/cr ratio CARLOTA: Not been using BiPAP - BiPAP qhs Shanique Harris, RT - 08/25/2017 0252 EDT Respiratory Consult/Progress Note Indications for Respiratory therapy: ICU admission, hx COPD Data Vitals: Heart Rate: 70 BPM, Resp: 18, SpO2: 94 % FIO2/O2 Device: , , O2 Device: None, RT Orders: Pending Protocol Scoring: Bronchodilator/Inhalation Therapy Frequency Bronchodialator - Clinical Indications: History of COPD Breath Sounds: Any abnormal BS decreased Response: No change / no treatment Pulse: <100 Resp Rate: 18-25 SOB: None Total Score: 2 Comment:: PRN - pt does not take any respiratory medications at home Airway Clearance Therapy Frequency Airway Clearance - Clinical Indications: No clinical indications Breath Sounds: Clear / diminished Sputum: Small (tsp) / None Consistency: None Cough Effort: Strong, non-productive Color: None Total Score: 0 Comment: Not indicated Hyperinflation Therapy Frequency Hyperinflation - Clinical Indications: Prevent atelectasis Breath Sounds: Other Surgery: No X-Ray / Atelectasis: No O2 Requirements: O2 at baseline Mobility Status: Mobile / at baseline Total: 1 Comment: Not indicated Action/Events Pt admitted to the hospital for NSTEMI. Breath sounds clear/diminshed on room air. Has a hx of COPD and smokes 2ppd. Has no home respiratory meds. A spacer was given for MDI use while in the hospital if needed. Pt also received an inhaler teach with that so MDI's can be switched over to nursing if ordered. RT Cassie 08/25/17 Erika Cash MD - 08/25/[address] Sten[employer] Addendum (please see internet webmaster/resident H&P for full details) 51yo M with DM2, HLD, CKD, current 2 ppd smoker (>80 pack-year history), strong family history ofMI (brother in 40s, mother in 50s, father 60s) but no personal prior cardiac history who was transferred from [facility] for NSTEMI. Few nights ago chest pressure woke him from sleep but no further episodes with exertion or at rest until today at 2PM he developed central chest pressure with SOB and diaphoresis. On arrival to [facility] ED SL NTG x1 relieved pain completely initially. He was given ASA 324mg, and after troponin returned 0.98 he was given plavix 600mg, heparin bolus and gtt, 25mg metoprolol. CXR normal. Chest pain returned at about 6:30PM and was lessened but not relieved completely with nitropaste.When pain returned he was put on nitro gtt and this improved his pain, it was almost resolved en route but after disconnecting the nitro gtt in the ED and awaiting for new order his chest pain recurred. ECGs there showed sinus rhythm TW flattening III, aVF but no significant ST changes. On arrival to [facility], afebrile, HR 60-70s, BP 110-120s/80s, 99% on RA. ECG sinus rhythm no ischemic findings. Trop 7.39, Cr 1.03, Hgb 13.8, plt 234, INR 1. Still having 2-3/10 chest pressure but only on 20mcg/min nitro gtt. Increased gtt to 75mcg/min with resolution of chest pain, dilaudid 1mg prn which worked better for him than morphine. No bleeding history recently (had issues with PUD but not in years). No issues with contrast dye or sedation. On exam, well appearing in no distress. Normal rate, reg rhythm, no m/r/g. Chest CTAB. 2+ radial andDP pulses bilaterally. A/P: # NSTEMI. - DAPT, heparin, NPO for LHC in the morning; waiting until AM given pain now controlled on anti-anginals. If recurs despite this will need more urgent LHC - nitro gtt, metoprolol, and either IV morphine or dilaudid for pain - trend trop to peak - formal TTE in morning Erika Roland, PGY-[address] [employer] Pager #[phone] documented in this encounter H&P Notes Nathaniel Greene MD - 08/25/2017 0250 EDT Date of Service: 08/25/2017 Admit Date : 08/25/2017 Subjective: Chief Complaint: Chest pain Mr Patricio is a 51 yo with a history significant for DMII, HLD, tobacco use (80 pack year history), and fhx of early onset CAD who presents as an ED to ED transfer from [facility] after initially presenting there earlier in the day with acute onset chest pain. Patient had been in his usual state of health until the evening of the when he developed acute onset, substernal chest pressure while at rest. The pain was self-limiting and patient attributed it to GERD. 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 This time it was accompanied by diaphoresis, mild nausea, and some shortness of breath. He does not associate the pain with exertion. He denies lightheadedness and palpitations. He has not noticed any increased swelling in his lower extremities. He has not been able to lay flat on his back for years, which he attributes to CARLOTA (failed trial of BiPAP in past but open to retrying now). The chest pain has remained constant but fluctuates in intensity after receiving nitroglycerin and opioids. At [facility] ED initial workup was notable for creatinine of 1.4, otherwise normal BMP, normal CBC, and troponin elevated to 0.03. Repeat troponin increased to 0.9. EKG showed normal sinus rhythm without ischemic changes. He was loaded with aspirin and Plavix and started on a heparin drip. Chest pain improved some, but not completely, with sublingual nitroglycerin so he was subsequently started on nitro drip. He was then transferred to [facility] ED for further evaluation. Workup here is notable for troponin of 7.4, an improvement of creatinine to 1.0. Otherwise BMP, calcium, magnesium, CBC, and INR are unremarkable. Repeat EKG is unchanged. Family history: Remarkable for early onset CAD in father and brother Social history: 65-dzzt-lgnr history, drinks a few pints of white Russians on Monday and Monday night Patient Active Problem List Diagnosis Date Noted ??? NSTEMI (non-ST elevated myocardial infarction) ([facility]) 08/25/2017 Priority: Medium Past Medical History: Diagnosis Date ??? Diaz's esophagus ??? COPD (chronic obstructive pulmonary disease) ([facility]) History reviewed. No pertinent surgical history. (Not in a hospital admission) Allergies Allergen Reactions ??? Doxycycline GI upset ??? Venlafaxine GI upset Social History Substance Use Topics ??? Smoking status: Current Every Day Smoker Packs/day: 2.00 Years: 38.00 ??? Smokeless tobacco: Never Used ??? Alcohol use Yes No family history on file. Review of Systems See history of present illness, otherwise 10 point review systems negative Objective: VS: Patient Vitals for the past 8 hrs: BP Temp Temp src Pulse Resp SpO2 Height Weight 08/25/17 0200 115/83 - - - 20 93 % - - 08/25/17 0145 117/64 - - - 13 95 % - - 08/25/17 0115 117/70 - - - 15 96 % - - 08/25/17 0100 123/80 - - - 15 97 % - - 08/25/17 0045 124/83 - - - 24 96 % - - 08/25/17 0030 123/84 - - - 16 97 % - - 08/25/17 0024 126/86 - - - 17 97 % - - 08/25/17 0002 - - - - - - 182.9 cm (72) - 08/24/17 2358 115/80 - - - 19 97 % - - 08/24/17 2306 110/75 36.2 ??C (97.1 ??F) Oral 66 17 97 % - (!) 117.9 kg (260 lb) 08/24/17 2303 110/75 - - - - 99 % - - I&O: No intake or output data in the 24 hours ending 08/25/17 0250 Exam: General: Middle-aged male lying comfortably in bed, nontoxic HEENT: Sclera anicteric Cardio: Regular rate and rhythm, no discernible murmurs, no JVD Pulm: Breathing comfortably on room air, no wheezes or crackles Abdomen: No tenderness to palpation, distention, or rigidity : No Han Extremities: No lower extremity edema Skin: No visible rashes Neuro: Alert, answering questions without difficulty, speech articulate, face symmetrical, moving all extremities Psych: Pleasant demeanor, normal affect, making jokes ECG: I have personally reviewed, normal sinus rhythm, normal intervals, no Q waves or ST segment changes Data Review: CBC: Recent Labs 08/24/172315 WBC 9.13 RBC 4.47 HGB 13.8 HCT 40.5 MCV 91 MCH 30.9 MCHC 34.1 PLT 234 BMP: Recent Labs 08/24/172315 NA 139 K 4.3 CL 108 CO2 24 CREATININE 1.03 CALCIUM 8.6 CALCCA 9.2 MG 2.0 Coags: Recent Labs 08/24/172315 PROTIME 11.2 INR 1.0 Cardiac Markers: Recent Labs 08/24/172315 TROPONINI 7.390* Assessment: Mr Patricio is a 51 yo with a history significant for DMII, HLD, tobacco use (80 pack year history), and fhx of early onset CAD who admitted with NSTEMI. He is status post aspirin and Plavix load and on heparin drip. Chest pain well- controlled on nitro drip and dilaudid prn. Will likely proceed with left heart cath in the am. Plan: NSTEMI: - S/p ASA and plavix (600mg) load, continue plavix 75mg daily and aspirin 81mg - On heparin and nitro drips - LHC in am, currently NPO - Start metoprolol 12.5mg BID - Continue BOTTLED BEVERAGE INSPECTOR lipitor 40mg daily - Formal echo pending - Dilaudid 0.5mg IV q4hr prn Acute Kidney Injury: Cr at OSH 1.3, now 1.0. - ARBEN protocol - Daily electrolytes/Cr DMII: Hold BOTTLED BEVERAGE INSPECTOR oral meds - SSI - NPO for now given procedure, then carb consistent diet - HbA1c pending CARLOTA: Noncompliant with BiPAP in the past but open to trying again in light of CAD. - May need sleep study as OP VTE Prophylaxis: On heparin drip Code: Full, discussed with Mr. Patricio Dispo: Admitted inpatient Nathaniel Greene MD Internal Medicine PGY-2 Associated attestation - Xavier Deluca MD - 08/25/2017 1927 EDT Attending Attestation: I have personally seen and examined Samy Patricio, discussed the patient'smanagement with the team, and agree with the findings and plan as outlined by Dr. Greene. Xavier Deluca, MDdocumented in this encounter Procedure Notes Vamshi Lawson Jr., MD - 08/25/2017 2743 EDT Cardiovascular Catheterization Laboratory Preliminary Report -- Catheterization Date of Service/Procedure: 08/25/2017 Attending Physician: Vamshi Lawson MD Fellow: Hilario Coffman MD Pre-Procedure Diagnosis /NCDR Indication: Samy Patricio is a 51 y.o. year old male with ACS <=24 hrs. Chest Pain Symptom Assessment: Typical Angina NCDR Indication for PCI: NSTE - ACS Heart Failure: No CHSA Clinical Frailty Scale: 1: Very Fit Prior Stress Testing? No Anesthesia: A moderate level of anesthesia/conscious sedation was used in addition to local anesthesia. Access: Right radial artery Procedure: He was brought to [facility] Cardiac Catheter[facility] Laboratory for the procedure: Diagnostic coronary/graft angiography, Left heart cath and Coronary intervention (PCI). Closure: TR Band Post-Procedure Condition: The condition of the patient was Good. Complications: None. IV Contrast Total: 165 mL X-ray Dose: 1247 mGy Estimated Blood Loss: Minimal. Unless otherwise noted,there were no specimens removed, cultures obtained, or drains retained. Research Study: Patient is not enrolled in a research study. Diagnostic Cardiac Study Results Left main: Free of angiographically significant disease. Left anterior descending: Minor luminal irregularities. Left circumflex: Proximal 80%. Right coronary artery: Dominant. Mid 90% Hemodynamic Results LVEDP 19 There was no gradient across the aortic valve. Post-Procedure Diagnostic Conclusion: PCI is indicated. Interventional Procedure: Using standard technique, the left circumflex coronary artery and right coronary artery were stented using a total of two Resolute EDEN (3.5 and 2.5, respectively). Plan: Aspirin 81mg PO daily. High intensity statin therapy PO daily. Ticagrelor 90mg PO BID. Transthoracic echocardiography. Smoking cessation encouraged. Evaluation for cardiac rehab program. At the completion of the procedure, the attending physician has explained the findings, therapies, any complications and treatment plan to the patient. With the patients consent, all family members andpatient support persons who were present at the conclusion of the procedure have been notified of these results and treatment plans as well. Post Interventional Conclusion/Physician Disposition: (check one main category) Inpatient procedure, continue inpatient status (no procedural complication required) Vamhsi Lawson MD PagerNumber: [phone] 08/25/2017 9:50 documented in this encounter Consult Notes Wendie Lima - 08/25/2017 1127 EDTAssociated Order(s): CONSULT SMOKING CESSATION Consult Completed. Read prior note. Wendie Ashford - 08/25/2017 1100 EDTAssociated Order(s): CONSULT SMOKING CESSATION Tobacco Cessation Initial Consult Note Subjective: Pt stated he was smoking 2PPD before entering the hospital. Pt is unsure about his quit process at this time but it willing to try the patch while inpatient. TTS requested a 21mg patch for pt. Pt stated he is aware of local smoking cessation options near him and has used his PCP for NRT Rx. Objective: Last cigarette smoked: 1day Started smoking at age: 12 - 18 Number of quit attempts over the past year: none Quantity of tobacco products used: Cigarettes: 2 ppd Living Environment: Number of household members:2 Number of household members who smoke:1 Number of children in the home under age 18:n/a Smoking allowed in the home:n/a Smoking allowed in the car:n/a Assessment: Readiness to quit tobacco use: Unsure at this time. Nicotine Withdrawal symptoms being reported: restlessness Current Management of Withdrawal symptoms: No current management Plan: Discussed management of withdrawal symptoms and cravings while hospitalized NRT bedside order form initiated for patient withdrawal management Wendie Lima 08/25/2017 11:00 documented in this encounter ED Notes Frances Martin RN - 08/25/2017 0713 EDT Verbal report given to GUILLAUME Solitario for continuation of care until transport to . rances Pro RN - 08/25/2017 0654 EDT Blood drawn via saline lock per protocol, tiger and blue tube(s) sent to lab per order. Frances Martin RN - 08/25/2017 0649 EDT Cardiology at bedside to assess. Leoncio Garcia - 08/25/2017 0611 EDT MD Stein aware Trop 12.400 at 0612 () Frances Aly RN - 08/25/2017 0458 EDT Received report from GUILLAUME Marinelli for continuation of care at this time. Belle Belle RN - 08/25/2017 0223 EDT 0100: Cardiology at the bedside, request increase in nitro drip-increased to 20mcg/kg/min. Verbal order for 2mg morphine IVP. Order confirmed with ED MD. Administered as documented in MAY. 0130: Cardiology resident verbal order for 1mg dilaudid IVP and titrate nitro drip to 50mcg/kg/min. BP 117/67. Dilaudid order confirmed with ED MD. Administered as documented in MAY. 0115 UFH drawn andsent to lab. 0155: pt pain reassessed. Appears comfortable. Reports pain is less than a 1/10. 0220: UFH 0.15. Ordered rate change and administered bolus per protocol. See MAR. Kerri Stein MD - 08/25/2017 0204 EDT I, Lj Pardo, am scribing for Kerri Stein MD while he/she is personally performing the service. Lj Pardo 08/25/2017 2:04 Samy Patricio is a 51 y.o. male with a history of COPD and HLD who presents to the ED via transfer from [facility] with NSTEMI. Patient initially began experiencing chest pain around 14:00 with associated SOB and diaphoresis. His initial troponin was normal but repeat was 0.98. He was given 324 mg aspirin, 600 mg Plavix, heparin and nitro drip, 25 mg metoprolol, and nicotine patch. He has a significantsmoking history. Care and work-up prior to sign out includes normal EKG. Repeat troponin was 7.390. I assumed care of patient from Bella Solomon MD with Cardiology evaluation pending. 00:45 Paged cardiology. Discussed patient with ticket printer and tagger. She will discuss more urgent catheterization pending patient's clinical course. Nitroglycerin was increased and pain improved. Patient remained hemodynamicallystable. Patient admitted to Cardiology with telemetry under Dr. Jones. This documentation is recorded by Lj Pardo acting as Scribe under the direction and presenceof Kerri Stein MD. Kerri Stein MD: I personally performed the services recorded by the scribe in my presence. I confirm the scribe's documentation has been reviewed by me to accurately and completely record my work, treatment, procedures, and medical decision making. arilis Reno RN - 08/25/2017 0131 EDT Blood drawn via saline lock per protocol, blue tube(s) sent to lab per order for [facility]. Armaan Gonzalez - 08/25/2017 0017 EDT 12 Lead EKG Performed by ARMAAN GONZALEZ and shown to Bella Solomon MD. Belle Young RN - 08/25/2017 0015 EDT 12 Lead EKG Performed by BELLE VILLAR RN and shown to Bella Solomon MD. Leoncio Garcia - 08/24/2017 2359 EDT MD Solomon aware Trop 7.390 at 0000 () Belle Young RN - 08/24/2017 2342 EDT According to EMS and patient. Pt was at [facility] for chest pain with associated SOB that began at 1400,10/10 pain. Pt pain was effectively managed with one dose of SL nitro. At OSH his first troponin was.03, EKG NSR, second trop .98, transferred here on nitro drip and heparin drip. Pt appears in NAD OA. Pain 1/10. Family is at the bedside. On nurse monitoring. VSS. Will CTM. Bella Bucio MD - 08/24/2017 1068 EDT DOS: 08/24/2017 Chief Complaint Patient presents with ??? Chest Pain pt presents from [facility] for NSTEMI. pt CP began at 1400. 1st trop .03, 2nd trop .98. CXR neg. a nitro drip was initiated at 15 mcg/min. heparin drip started at 5591-7565 units/hr with a 4000 unit bolus. pt recieved 4 mg zofran as well. OA pt appears in NAD, VSS, pain is 1/10 described as mostly pressure. HPI I, Lynn Sanchez, am scribing for Bella Solomon MD while he/she is personally performing the service. Lynn Sanchez 08/24/2017 22:53 Samy Patricio is a 51 y.o. male with a history of COPD and HLD who presents to the ED via EMS as a transfer from [facility] for cardiology consult for NSTEMI. The patient is complaining of onset 1400 severe left sided chest pressure with some radiation to his jaw while building trophies for his son, dharmesh. The patient associates resolved SOB and diaphoresis. He denies chest pain radiation to arms, nausea, or shooting pain. On chart review, the patient had an initial troponin of 0.03 and 2 hours later elevated at 0.98. Thepatient was given aspirin 324 mg, Plavix 600 mg, heparin and nitro drip (ongoing), 25 mg PO metoprolol, and nicotine patch. He had an EKG at 1611 showing sinus rhythm, rate of 87 bpm, with T wave inversions in lead 3. Repeat EKG at 1908 shows some development of peaked T waves through precordial leads, no ST elevation or depression. EMS 12 lead on arrival to the ED shows sinus rhythm at a rate of 70 bpm, no ST depression or elevation. The patient is a current smoker (2 PPD). The history is provided by the patient, medical records and the EMS personnel. Review of Systems Review of Systems Constitutional: Positive for diaphoresis (Resolved.). Negative for chills and fever. HENT: Negative for congestion and sore throat. Positive for jaw pain (resolved). Eyes: Negative for visual disturbance. Respiratory: Positive for shortness of breath (Resolved.). Negative for cough. Cardiovascular: Positive for chest pain (Pressure.). Gastrointestinal: Negative for abdominal pain, nausea and vomiting. Genitourinary: Negative for dysuria. Musculoskeletal: Negative for back pain and gait problem. Negative for arm pain. Skin: Negative for rash and wound. Allergic/Immunologic: Negative for immunocompromised state. Neurological: Negative for headaches. Psychiatric/Behavioral: Negative for confusion. All other systems reviewed and are negative. The patient's past medical, family and social history was reviewed and updated as needed. Allergies Allergen Reactions ??? Doxycycline GI upset ??? Venlafaxine GI upset Vital Signs Vitals Reassessment?: Yes Temp: 36.2 ??C (97.1 ??F) Temp src: Oral Pulse: 66 Heart Rate: 67 BPM Resp: 17 SpO2: 97 % BP: 126/86 BP MAP: 94 mm Hg BP Device: BP Machine BP Cuff Location: Right arm O2 Device: None (Room air) Physical Exam Constitutional: He is oriented to person, place, and time. He appears well- developed and well-nourished. No distress. HENT: Head: Normocephalic and atraumatic. Eyes: Conjunctivae and EOM are normal. Pupils are equal, round, and reactive to light. Right eye exhibits no discharge. Left eye exhibits no discharge. Neck: Normal range of motion. Neck supple. No tracheal deviation present. Cardiovascular: Normal rate, regular rhythm, normal heart sounds and intact distal pulses. No murmur heard. Pulmonary/Chest: Effort normal and breath sounds normal. No respiratory distress. He has no wheezes. Abdominal: Soft. Bowel sounds are normal. He exhibits no distension. There is no tenderness. Musculoskeletal: Normal range of motion. He exhibits no edema. Neurological: He is alert and oriented to person, place, and time. He exhibits normal muscle tone. Skin: Skin is warm and dry. No rash noted. Psychiatric: He has a normal mood and affect. Nursing note and vitals reviewed. RESULTS EKG orders: EKG 12-LEAD The patient had an EKG which was independently reviewed and interpreted by me. (Sinus rhythm at a rate of 65 bpm, no significant ST depression or elevation). Radiology orders: None ED Lab Results Labs Reviewed TROPONIN I - Abnormal Result Value Status Troponin I 7.390 (*) Final HOLD LAVENDER TOP Hold Purple Top Final Value: EDTA for hematology will be discarded after 48 hours, differential not available after 12 hours. HOLD SST Hold SST Final Value: Hold for further testing. Specimen will be held for 5 days. HOLD BLUE TOP Hold Blue Top Final Value: Sample for coagulation will be discarded after 4 hours Relevant Data Procedures ED COURSE A medical screening exam was performed. The patient is a 51 y.o. male who presents to the ED via EMS as a transfer from [facility] for cardiologyconsult for NSTEMI. 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 2310- I paged the ticket printer and tagger. 2341- I repaged cardiology. 2355- The patient's nurse reports his chest pain is coming back. The patient's nitro drip was restarted. The patient had a repeat EKG that was unchanged from prior. Patient had labs that were reviewed independently by myself, significant for troponin elevated at 7.390. 0015- I spoke with the ANC in the ED, who contacted the ticket printer and tagger. The patient was signed out to Dr. Stein with admission to cardiology pending with consideration if he needs to go to cath emergently given ongoing pain. ASSESSMENT AND PLAN Final diagnoses: None NSTEMI Elevated troponin DISPOSITION: No disposition on file pending The patient's pain was managed to an adequate level weighing risk vs. benefit of further medications. Upon departure from the Emergency Department, the patient's pain was not asked. Any further pain treatment will be at the discretion of the provider following up with the patient based on their clinical assessment. Condition at departure from the Emergency Department: Serious PCP: Altaf Hoover [facility] This documentation is recorded by Lynn Sanchez acting as Scribe under the direction and presence of Bella Solomon MD. Bella Solomon MD: I personally performed the services recorded by the scribe in my presence. I confirm the scribe's documentation has been reviewed by me to accurately and completely record my work, treatment, procedures, and medical decision making. 08/25/2017 0:39 No flowsheet data found. documented in this encounter Miscellaneous Notes Plan of Care - Manisha Hampton RN - 08/26/2017 1036 EDT Problem: Daily Care Plan Goals Goal: Care Plan Documentation Outcome: Met This Shift 08/26/17 0806 Care Plan Focus Area of Focus Circulatory Status Goal This Shift VSS [id number] Samy Patricio 51 y.o. male Length of Stay: 1 day(s) Admitted: 08/25/2017 1:14 Service: Cardiology Code Status: Full Code 14:31-- D: Discharge order written by treatment team. A: After Visit Summary printed for Samy Patricio to review. ?? Intact IV access removed; ?? Telemetry discontinued; ?? Printed prescriptions given, called/faxed to pharmacy ?? Reviewed medication schedule & clarified today's medications, ?? Follow-up appointments reviewed. R: Patient is pain-free, has no further questions, and states he understands discharge instructions.Signed copy of AVS received. Pt left with to go home. lan of Care - Carolyn Estevez RN - 08/26/2017 0155 EDT Problem: Daily Care Plan Goals Goal: Care Plan Documentation Outcome: Ongoing 08/26/17 0019 Care Plan Focus Area of Focus Circulatory Status Goal This Shift Pt will remain hemodynamically stable BP 114/59 (BP Cuff Location: Left arm, Patient Position: Lying right side) Pulse 68 Temp 36.2 ??C (97.2 ??F) (Tympanic) Resp 16 Ht 182.9 cm (72) Wt (!) 117.9 kg (260 lb) SpO2 95% BMI 35.26 kg/m2 Data: Pt A&O x3. Independent. Pt admitted for chest pain: NSTEMI. Pt S/P LHC via RRA; 1 EDEN to Lt Circ and 1 EDEN to RCA. Passed orthos. Tele: NSR. Action: Assessed and administered meds as ordered. Response: Pt does not endorse CH or SOB. is in visiting and sharing bed with Pt. CAROLYN ESTEVEZ RN 08/26/2017 1:48 lan of Care - Manisha Hampton RN - 08/25/2017 1140 EDT Problem: Daily Care Plan Goals Goal: Care Plan Documentation Outcome: Ongoing 08/25/17 1030 Care Plan Focus Area of Focus Circulatory Status Goal This Shift VSS BP 126/87 Pulse 68 Temp 35.8 ??C (96.4 ??F) (Tympanic) Resp 18 Ht 182.9 cm (72) Wt (!) 117.9 kg (260 lb) SpO2 97% BMI 35.26 kg/m2 Data: Assumed care of patient at 1030. Patient admitted from OSH for NSTEMI requiring LHC and 2 EDEN via RRA. Cite clean/dry/intact, patient denies chest pain/SOB. Action: Completed admission documentation. Tele applied and BPs cycled per protocol. Administered medications per MAY. Patient instructed on bedrest/limited arm movement post cath. Response: Patient in bed, family at bedside and updated. VSS. Manisha Hampton RN 08/25/2017 11:36 documented in this encounter Plan of Treatment Scheduled Referrals Name Type Priority Associated Order Schedule Diagnoses AMB CONS/FOLLOW UP Outpatient Referral Routine NSTEMI (non-ST Ordered: PRIMARY CARE PHYSICIAN elevated 08/25 myocardial infarction) ([facility]) AMB CONS/FOLLOW UP Outpatient Referral Routine NSTEMI (non-ST Ordered: CARDIAC REHABILITATION elevated 08/25 myocardial infarction) ([facility]) AMB CONS/FOLLOW UP Outpatient Referral Routine NSTEMI (non-ST Ordered: CARDIOLOGY elevated 08/25/2017 myocardial infarction) ([facility]) documented as of this encounter Procedures Procedure Name Priority Date/Time Associated Comments Diagnosis ECG REPORT - SCANNED 08/31/2017 14:29 EDT ECG REPORT - SCANNED 08/30/2017 13:52 EDT GLUCOSE, GLUCOMETER Routine 08/26/2017 7:32 Resul ts for this EDT procedure are i n the results section. COMPLETE BLOOD COUNT Routine 08/26/2017 5:29 Resu lts for this EDT procedure are i n the results section. BUN Routine 08/26/2017 5:29 Results for this EDT procedure are i n the results section. MAGNESIUM Routine 08/26/2017 5:29 Results for this EDT procedure are i n the results section. CREATININE Routine 08/26/2017 5:29 Results for this EDT procedure are i n the results section. LIPID PROFILE (INCLUDES Routine 08/26/2017 5:29 R esults for this CHOLESTEROL, EDT procedure are i n TRIGLYCERIDES, HDL, the resu lts LDL) section. ELECTROLYTES Routine 08/26/2017 5:29 Results for this EDT procedure are i n the results section. GLUCOSE, GLUCOMETER Routine 08/25/2017 21:52 Resu lts for this EDT procedure are i n the results section. GLUCOSE, GLUCOMETER Routine 08/25/2017 17:12 Resu lts for this EDT procedure are i n the results section. PROTEIN/CREATININE Routine 08/25/2017 15:20 Resul ts for this RATIO, URINE EDT procedure are i n the results section. GLUCOSE, GLUCOMETER Routine 08/25/2017 11:36 Resu lts for this EDT procedure are i n the results section. TROPONIN I Routine 08/25/2017 10:50 Results for this EDT procedure are i n the results section. LEFT HEART CATH Routine 08/25/2017 9:54 Results f or this EDT procedure are i n the results section. ECHOCARDIOGRAM Routine 08/25/2017 8:40 Results fo r this EDT procedure are i n the results section. GLUCOSE, GLUCOMETER Routine 08/25/2017 6:45 Resul ts for this EDT procedure are i n the results section. HEPARIN LEVEL - STAT 08/25/2017 6:30 Results f or this UNFRACTIONATED HEPARIN EDT proce dure are in the results section. BUN Routine 08/25/2017 6:30 Results for this EDT procedure are i n the results section. CREATININE Routine 08/25/2017 6:30 Results for this EDT procedure are i n the results section. ELECTROLYTES Routine 08/25/2017 6:30 Results for this EDT procedure are i n the results section. TROPONIN I Routine 08/25/2017 2:58 Results for this EDT procedure are i n the results section. GLUCOSE, GLUCOMETER Routine 08/25/2017 2:56 Resul ts for this EDT procedure are i n the results section. HEPARIN LEVEL - STAT 08/25/2017 1:21 Results f or this UNFRACTIONATED HEPARIN EDT proce elías are in the results section. INPATIENT ADD-ON STAT 08/25/2017 1:15 Results for this EDT procedure are i n the results section. EKG 12-LEAD STAT 08/25/2017 0:13 Results for this EDT procedure are i n the results section. HOLD SST Routine 08/24/2017 23:16 Results for this EDT procedure are i n the results section. HOLD LAVENDER TOP Routine 08/24/2017 23:16 Result s for this EDT procedure are i n the results section. HOLD BLUE TOP Routine 08/24/2017 23:16 Results fo r this EDT procedure are i n the results section. TROPONIN I STAT 08/24/2017 23:16 Results for this EDT procedure are i n the results section. PROTIME Routine 08/24/2017 23:16 Results for this EDT procedure are i n the results section. COMPLETE BLOOD COUNT Routine 08/24/2017 23:16 Res ults for this EDT procedure are i n the results section. MAGNESIUM Routine 08/24/2017 23:16 Results for this EDT procedure are i n the results section. HEMOGLOBIN A1C Routine 08/24/2017 23:16 Results f or this EDT procedure are i n the results section. CREATININE Routine 08/24/2017 23:16 Results for this EDT procedure are i n the results section. CALCIUM Routine 08/24/2017 23:16 Results for this EDT procedure are i n the results section. ELECTROLYTES Routine 08/24/2017 23:16 Results for this EDT procedure are i n the results section. documented in this encounter Results (ABNORMAL) GLUCOSE, GLUCOMETER (08/26/2017 7:32 EDT) Glucose, 185 (H) 70 - 100 [facility] Fingerstick mg/dl LABORATORY SERVICES Net Web Application Developer ID [id number]: [facility] Test Performed by LABORATORY Nursing Services SERVICES Specimen Blood Performing Organization Address City/State/ZIP Code Phon e Number [facility] [address] [place] [address] SERVICES MAGNESIUM (08/26/2017 5:29 EDT) Pathologist Sig nature Magnesium 2.1 1.7 - 2.8 mg/dl [facility] SERVICES Specimen Blood specimen (specimen) - Blood Performing Organization Address City/State/ZIP Code Phon e Number [facility] [address] [place] [address] SERVICES CREATININE (08/26/2017 5:29 EDT) Creatinine 0.97 0.66 - 1.25 [facility] mg/dl LABORATORY SERVICES GFR, Calculated 91 >60 [facility] Comment: ml/min/1.73m2 LABORATORY eGFR calculated using CKD-EPI equation for SERVICES non Americans. Multiply eGFR by 1.16 for Americans. Specimen Blood specimen (specimen) - Blood Performing Organization Address City/State/ZIP Code Phon e Number [facility] [address] [place] [address] SERVICES BUN (08/26/2017 5:29 EDT) Pathologist Sig nature BUN 16 10 - 26 mg/dl [facility]ORATO RY SERVICES Specimen Blood specimen (specimen) - Blood Performing Organization Address City/State/ZIP Code Phon e Number [facility] [address] [place] [address] SERVICES (ABNORMAL) ELECTROLYTES (08/26/2017 5:29 EDT) Pathologist Sig nature Sodium 135 (L) 136 - 145 mEq/L [facility] Potassium 4.2 3.5 - 5.0 mEq/L [facility] Chloride 105 96 - 110 mEq/L [facility] ORY SERVICES CO2 25 22 - 32 mEq/L [facility] SERVICES Specimen Blood specimen (specimen) - Blood Performing Organization Address City/State/ZIP Code Phon e Number [facility] [address] [place] [address] SERVICES COMPLETE BLOOD COUNT (08/26/2017 5:29 EDT) Pathologist Sig nature WBC 7.13 4.0 - 10.4 K/cmm [facility] SERVICES RBC 4.58 4.36 - 5.78 M/cmm [facility] SERVICES Hemoglobin 14.3 13.8 - 17.3 gm/dl [facility] SERVICES HCT 40.4 39.5 - 50.2 % [facility] SERVICES MCV 88 81 - 95 fl [facility] SERVICES MCH 31.2 27.6 - 33.0 pg [facility] SERVICES MCHC 35.4 32.8 - 36.4 gm/dl [facility] SERVICES RDW-CV 12.0 <14.2 % [facility] SERVICES RDW-SD 38.7 <46.0 fl [facility] SERVICES PLT 195 141 - 377 K/cmm [facility] SERVICES MPV 10.4 9.5 - 12.7 fl [facility] SERVICES Specimen Blood specimen (specimen) - Blood Performing Organization Address [facility] Phon e Number [facility] [address] [place] [address] SERVICES LIPID PROFILE (INCLUDES CHOLESTEROL, TRIGLYCERIDES, HDL, LDL) (08/26/2017 5:29 EDT) Cholesterol 116 mg/dl [facility] Comment: LABORATORY Desirable:<200 SERVICES Borderline High:200-239 High:>xa=400 Triglycerides 132 mg/dl [facility] Comment: LABORATORY Normal:<150 SERVICES Borderline High:150-199 High:200-499 Very High:>xa=302 HDL 37 mg/dl [facility] Comment: LABORATORY Low:<40 SERVICES Normal:40-60 Desirable: >60 LDL, Calculated 53 mg/dl [facility] Comment: LABORATORY Optimal:<100 SERVICES Near Optimal:100-129 Borderline High:130-159 High:160-189 Very High:>vf=627 Chol/HDL Ratio 3.1 [facility] SERVICES Fasting? Unknown [facility] SERVICES Non HDL Cholesterol 79 mg/dl [facility] Comment: LABORATORY Desirable:<130 SERVICES Borderline:130-159 High: 160-189 Very High: >yg=096 Specimen Blood specimen (specimen) - Blood Performing Organization Address [facility] Phon e Number [facility] [address] [place] [address] SERVICES (ABNORMAL) GLUCOSE, GLUCOMETER (08/25/2017 21:52 EDT) Glucose, 238 (H) 70 - 100 [facility] Fingerstick mg/dl LABORATORY SERVICES Net Web Application Developer ID [id number]: [facility] Test Performed by LABORATORY Nursing Services SERVICES Specimen Blood Performing Organization Address [facility] Phon e Number [facility] [address] [place] [address] SERVICES (ABNORMAL) GLUCOSE, GLUCOMETER (08/25/2017 17:12 EDT) Glucose, 197 (H) 70 - 100 [facility] Fingerstick mg/dl LABORATORY SERVICES Net Web Application Developer ID [id number]: [facility] Test Performed by LABORATORY Nursing Services SERVICES Specimen Blood Performing Organization Address [facility] Phon e Number [facility] [address] [place] [address] SERVICES PROTEIN/CREATININE RATIO, URINE (08/25/2017 15:20 EDT) Pathologist Sig nature Tot Prot,Ur Random 5 mg/dl [facility] SERVICES Creatinine, Urn [place] 117.0 mg/dl [facility] SERVICES UPRO mg/mg Cr, Ur 0.04 <0.11 mg/mg Crea [facility] SERVICES Specimen Urine (substance) - Urine Performing Organization Address [facility] Phon e Number [facility] [address] [place] [address] SERVICES (ABNORMAL) GLUCOSE, GLUCOMETER (08/25/2017 11:36 EDT) Glucose, 220 (H) 70 - 100 [facility] Fingerstick mg/dl LABORATORY SERVICES Net Web Application Developer ID [id number]: [facility] Test Performed by LABORATORY Nursing Services SERVICES Specimen Blood Performing Organization Address [facility] Phon e Number [facility] [address] [place] [address] SERVICES (ABNORMAL) TROPONIN I (08/25/2017 10:50 EDT) Troponin I 8.520 (H) <0.034 ng/ml [facility] (ng/mL) Comment: LABORATORY The results of this assay can be falsely SERVICES lowered due to the consumption of Biotin. Specimen Blood specimen (specimen) - Blood Performing Organization Address [facility]/ZIP Code Phon e Number [facility] [address] [place] [address] SERVICES LEFT HEART CATH (08/25/2017 9:54 EDT) Specimen Narrative [facility] - 08/28/2017 15:36 EDT Cardiology [address] [place] [id number] Catheterization Laboratory Study Patient: Samy Patricio ?Study Date: ?08/25/2017 ? Accession #: ? [id number] : ? 1965 Referring: Altaf Hoover Diagnostic Attending: ??Vamshi Lawson Interventional Attending: ?? Sushma Lawson Diagnostic Fellow: Hilario Coffman MD Interventional Fellow: Hilario Coffman MD ATTESTATION: IDr. Hilario was the initial author of this report. Dr. Vamshi Lawson was present and supervisin ruben for the entire procedure. I, Dr. Vamshi Lawson have reviewed and agre ed with the findings of this report. PROCEDURE PLAN: Based on the diagnostic study percutaneo us coronary intervention is indicated. RESEARCH STUDY: Patient is not enrolled in any research studies. IMPRESSIONS: 1. Severe double vessel coronary artery disease, predominantly involving ?? the circumflex and RCA. 2. Non ST-elevated myocardial infarction (NSTEMI). The culprit lesion ?? was identified. SUMMARY: 1. HPI and indications: Dyspnea. 2. Left circumflex: Proximal vessel lesi on: There is an 80% stenosis. ?? There is ENE grade 3 flow (brisk fl ow) across the lesion. The lesion ?? was stented (see 1st lesion interven tion). Following intervention, ?? the lesion has a residual stenosis o f 0%, an excellent angiographic ?? appearance, and ENE grade 3 flow (b risk flow). 3. Right coronary: Mid-vessel lesion: Th ere is a 90% stenosis. There is ?? ENE grade 3 flow (brisk flow) acros s the lesion. The lesion was ?? stented (see 2nd lesion intervention ). Following intervention, the ?? lesion has a residual stenosis of 0% , an excellent angiographic ?? appearance, and ENE grade 3 flow (b risk flow). RECOMMENDATIONS: 1. Patient management should include smo suleiman cessation, counseling to ?? assist with smoking cessation, and a cardiac rehabilitation program. 2. Add statin therapy. 3. Add aspirin. 4. Add ticagrelor (Brilinta). HISTORY: Dyspnea. ??Risk factors: ??Family histor y of coronary artery disease. Current tobacco use. Diabetes mellitus; on therapy with oral hypoglycemics. Dyslipidemia. LABS, PRIOR TESTS, PROCEDURES AND SURGER Y: Serum creatinine (current admission) of 1 mg/dl. ??Hemoglobin (pre-procedure) of 13.8 g/dl. STUDY DATA: Study status: ??Percutaneous coronary in tervention: urgent. ??Location: Catheterization laboratory. Sex: male. Windy wu is 51yr old. Height: 182.9cm. Weight: 117.9kg. BSA: 2.49m^2. Procedures performed: ?Right radi al artery access. ?Left heart catheterization. ?Right coronary ang iography. ?Left coronary angiography. ?Lesion int ervention: ?? Percutaneous intervention on the 80% stenosis in the proximal left circumflex. ?Stent placement. ?Lesion interven tion: ?? Percutaneous intervention on the 90% stenosis in the mid right oconnor ry. ?Stent placement. ANESTHESIA: Conscious sedation. PROCEDURE: 1. Initial setup. The patient was marko t to the laboratory in the ?? fasting state. A baseline ECG was re corded. Surface ECG leads, ?? automatic cuff blood pressure measur ements, and pulse oximetric ?? signals were monitored. 2. Skin preparation. The planned punctur e sites were prepped with ?? chlorhexidine and draped in the usua l sterile manner. 3. Local anesthesia. Using 2% Lidocaine, local anesthetic was ?? administered to the access site(s). 4. Right radial artery access. A 6 Fr/10 /.021 [place] [employer] SLENDER ?? sheath was advanced into the vessel. 5. Left heart catheterization. A cathete r was advanced across the aortic ?? valve to the left ventricle under fl uoroscopic guidance. Resting ?? hemodynamics were obtained. Measurem ents included pressure recordings ?? from the left ventricle and aortic r oot. 6. Selective right coronary angiography. A 5 FR Jose catheter was ?? advanced into the right coronary ves danielle ostium under fluoroscopic ?? guidance. Contrast was injected. Kayleigh ges were obtained in multiple ?? projections. 7. Selective left coronary angiography. A 5 FR Jose catheter was ?? advanced into the left coronary vess el ostium under fluoroscopic ?? guidance. Contrast was injected. Kayleigh ges were obtained in multiple ?? projections. 8. Right radial artery hemostasis. Mecha nical compression was applied. 1st lesion intervention: Percutaneous intervention on the 80% stephanie nosis in the proximal left circumflex. 1. Guider placement. A 6fr Runway CLS3 g uiding catheter was placed. 2. Wire placement. A 180 Prowater wire w as placed across the lesion. 3. Stent placement. A 3.5mm (D) x 15mm ( L), Resolute stent was advanced ?? across the lesion and deployed with two inflations and a maximum ?? pressure of 21atm. 2nd lesion intervention: Percutaneous intervention on the 90% stephanie nosis in the mid right coronary. 1. Guider placement. A 6fr Runway CLS3 g uiding catheter was placed into ?? the ostium of the right coronary art mo. 2. Wire placement. A 180 Prowater wire w as placed across the lesion. 3. Stent placement. A 2.5mm (D) x 12mm ( L), Resolute stent was advanced ?? across the lesion and deployed with a single inflation and a maximum ?? pressure of 17atm. STUDY COMPLETION: The estimated blood loss was 10ml. All c atheters inserted during the procedure were removed. The patient kelsey rated the procedure well and was discharged from the lab. There were no c omplications. ??Contrast: Isovue 165ml (total dose). ??Isovue 135m l (wasted). ??Fluoroscopy time: 14.6min. ??Fluoroscopy dose: ??124.7cGy. CORONARY ARTERIES: The coronary circulation is right domina nt. Left main: ??Normal. LAD: ??Minor luminal irregularities. Left circumflex: ??Proximal vessel lesio n: There is an 80% stenosis. There is ENE grade 3 flow (brisk flow) across the lesion. The lesion was stented (see 1st lesion intervention ). Following intervention, the lesion has a residual stenosis of 0%, an excellent angiographic appearance, and ENE grade 3 flow (brisk flow). There were no site complications. Right coronary: ??Minor luminal irregula rities. ??Mid-vessel lesion: There is a 90% stenosis. There is ENE grade 3 flow (brisk flow) across the lesion. The lesion was stented (see 2nd lesion intervention). Following intervention, the lesion has a residual stenosis of 0%, an excellent angiographic appearance, and NEE grade 3 flow (brisk flow). There were no site complications. HEMODYNAMICS: End diastolic pressure in the left ventr icle is mildly elevated. Pressure measurements across the aortic valve show no evidence of stenosis. + + + LV pressure s/ed ? 97/19 ? + + + Arterial pressure s/d (m) 97/72 (85) + + + * Electronically signed by Vamshi Lawson Jr., MD 2017-08-28 15:36 Procedure Note Vamshi Lawson Jr., MD - 08/28/2017 Cardiology [address] [place] [address] Catheterization Laboratory Study Patient: Samy Patricio Study Date: 0 08/25/2017 : 1965 Referring: Altaf Hoover Diagnostic Attending: Vamshi Lawson Interventional Attending: Vamshi Lawson Diagnostic Fellow: Hilario Coffman MD Interventional Fellow: Hilario Coffman MD ATTESTATION: Dr. Hilario Carmona was the initial author of this report. Dr. Vamshi Lawson was present and supervisin ruben for the entire procedure. Mathew, Dr. Vamshi Lawson have reviewed and agre ed with the findings of this report. PROCEDURE PLAN: Based on the diagnostic study percutaneo us coronary intervention is indicated. RESEARCH STUDY: Patient is not enrolled in any research studies. IMPRESSIONS: 1. Severe double vessel coronary artery disease, predominantly involving the circumflex and RCA. 2. Non ST-elevated myocardial infarction (NSTEMI). The culprit lesion was identified. SUMMARY: 1. HPI and indications: Dyspnea. 2. Left circumflex: Proximal vessel lesi on: There is an 80% stenosis. There is ENE grade 3 flow (brisk flow) across the lesion. The lesion was stented (see 1st lesion interventio n). Following intervention, the lesion has a residual stenosis of 0 %, an excellent angiographic appearance, and ENE grade 3 flow (bris k flow). 3. Right coronary: Mid-vessel lesion: Th ere is a 90% stenosis. There is ENE grade 3 flow (brisk flow) across t he lesion. The lesion was stented (see 2nd lesion intervention). Following intervention, the lesion has a residual stenosis of 0%, a n excellent angiographic appearance, and ENE grade 3 flow (bris k flow). RECOMMENDATIONS: 1. Patient management should include smo suleiman cessation, counseling to assist with smoking cessation, and a [facility] rehabilitation program. 2. Add statin therapy. 3. Add aspirin. 4. Add ticagrelor (Brilinta). HISTORY: Dyspnea. Risk factors: Family history of coronary artery disease. Current tobacco use. Diabetes mellitus; on therapy with oral hypoglycemics. Dyslipidemia. LABS, PRIOR TESTS, PROCEDURES AND SURGER Y: Serum creatinine (current admission) of 1 mg/dl. Hemoglobin (pre-procedure) of 13.8 g/dl. STUDY DATA: Study status: Percutaneous coronary inte rvention: urgent. Location: Catheterization laboratory. Sex: male. P atient is 51yr old. Height: 182.9cm. Weight: 117.9kg. BSA: 2.49m^2. Procedures performed: Right radial arter y access. Left heart catheterization. Right coronary angiogra phy. Left coronary angiography. Lesion intervention: Percut aneous intervention on the 80% stenosis in the proximal left circumflex. Stent placement. Lesion intervention: Percutan eous intervention on the 90% stenosis in the mid right oconnor ry. Stent placement. ANESTHESIA: Conscious sedation. PROCEDURE: 1. Initial setup. The patient was marko t to the laboratory in the fasting state. A baseline ECG was recor ded. Surface ECG leads, automatic cuff blood pressure measureme nts, and pulse oximetric signals were monitored. 2. Skin preparation. The planned punctur e sites were prepped with chlorhexidine and draped in the usual s terile manner. 3. Local anesthesia. Using 2% Lidocaine, local anesthetic was administered to the access site(s). 4. Right radial artery access. A 6 Fr/10 /.021 [place] [employer] SLENDER sheath was advanced into the vessel. 5. Left heart catheterization. A cathete r was advanced across the aortic valve to the left ventricle under fluor oscopic guidance. Resting hemodynamics were obtained. Measurement s included pressure recordings from the left ventricle and aortic root . 6. Selective right coronary angiography. A 5 FR Jose catheter was advanced into the right coronary vessel ostium under fluoroscopic guidance. Contrast was injected. Images were obtained in multiple projections. 7. Selective left coronary angiography. A 5 FR Jose catheter was advanced into the left coronary vessel ostium under fluoroscopic guidance. Contrast was injected. Images were obtained in multiple projections. 8. Right radial artery hemostasis. Mecha nical compression was applied. 1st lesion intervention: Percutaneous intervention on the 80% stephanie nosis in the proximal left circumflex. 1. Guider placement. A 6fr Runway CLS3 g uiding catheter was placed. 2. Wire placement. A 180 Prowater wire w as placed across the lesion. 3. Stent placement. A 3.5mm (D) x 15mm ( L), Resolute stent was advanced across the lesion and deployed with two inflations and a maximum pressure of 21atm. 2nd lesion intervention: Percutaneous intervention on the 90% stephanie nosis in the mid right coronary. 1. Guider placement. A 6fr Runway CLS3 g uiding catheter was placed into the ostium of the right coronary artery . 2. Wire placement. A 180 Prowater wire w as placed across the lesion. 3. Stent placement. A 2.5mm (D) x 12mm ( L), Resolute stent was advanced across the lesion and deployed with a s hattie inflation and a maximum pressure of 17atm. STUDY COMPLETION: The estimated blood loss was 10ml. All c atheters inserted during the procedure were removed. The patient kelsey rated the procedure well and was discharged from the lab. There were no c omplications. Contrast: Isovue 165ml (total dose). Isovue 135ml (wasted). Fluoroscopy time: 14.6min. Fluoroscopy dose: 124.7cGy. CORONARY ARTERIES: The coronary circulation is right domina nt. Left main: Normal. LAD: Minor luminal irregularities. Left circumflex: Proximal vessel lesion: There is an 80% stenosis. There is ENE grade 3 flow (brisk flow) across the lesion. The lesion was stented (see 1st lesion intervention ). Following intervention, the lesion has a residual stenosis of 0%, an excellent angiographic appearance, and ENE grade 3 flow (brisk flow). There were no site complications. Right coronary: Minor luminal irregulari ties. Mid-vessel lesion: There is a 90% stenosis. There is ENE grade 3 flow (brisk flow) across the lesion. The lesion was stented (see 2nd lesion intervention). Following intervention, the lesion has a residual stenosis of 0%, an excellent angiographic appearance, and ENE grade 3 flow (brisk flow). There were no site complications. HEMODYNAMICS: End diastolic pressure in the left ventr icle is mildly elevated. Pressure measurements across the aortic valve show no evidence of stenosis. + + + LV pressure s/ed 97/19 + + + Arterial pressure s/d (m) 97/72 (85) + + + * Electronically signed by Vamshi Lawson Jr., MD 2017-08-28 15:36 Performing Organization Address City/State/ZIP Code Phon e Number [facility] ECHOCARDIOGRAM (08/25/2017 8:40 EDT) Specimen Narrative [facility] - 08/25/2017 9:40 EDT *Interpreting Group:* *[facility]* [address] [place] [id number] Date of study: 08/25/2017 Transthoracic Echocardiography M-mode, complete 2D, complete spectral D oppler, and color Doppler *STUDY CONCLUSIONS* Summary: 1. Left ventricle: The cavity size was n ormal. Wall thickness was at the ?? upper limits of normal. Systolic fun ction was normal. The estimated ?? ejection fraction was 55-60%. Endoca rdial definiton was limited. The ?? lateral wall appeared hypokinetic in the some views (loop 34). 2. Right ventricle: The cavity size was normal. Wall thickness was ?? normal. Systolic function was normal . *PATIENT PRESENTATION* Height: ? 182.9cm ((72in) ) S/D Pressure: 115 / 85 Weight: ? 117.9kg ((259.5lb) ) BSA: ?2.49m^2 Test start time: ??07:56 AM. Test stop time: ??08:30 AM. ADMITTING ?Chang Garduno MD EMERGENCY DEPARTMENT COORDINATOR ??Nathaniel Blackwood RDCS REFERRING ?Altaf Hoover ATTENDING ?Kerri Stein FELLOW ? Franco Moon MD PERFORMING ?? [facility] ORDERING ? Nathaniel Greene. *PROCEDURE DATA* Procedure information: ??The patient was identified by two identifiers. This study was interpreted by [facility] Card[facility]. Pertinent images and digital data are archived for permanent storage and are available for subsequent review. ??Study status: Routine. Transthoracic echocardiography. ??M-mode, complete 2D, complete spectral Doppler, and color Doppler. A T ransthoracic Echocardiogram was performed. Scanning was performed from t he parasternal, apical, subcostal, and suprasternal notch acoust ic windows. Images were obtained using an Epiq 15 cardiac ultrasound mach ine. Image quality was suboptimal. The study was technically li mited due to poor acoustic window availability and body habitus. In travenous contrast (Definity) was administered by Nathaniel Blackwood CVT, R DCS to enhance delineation of left ventricular endocardial borders. Pr ior to administration at least two (2) contiguous segments of the left ventricular border were not visualized. Definity amount administered was a total of 2ml. One vial was used. ??Study completion: ??The madelaine ent tolerated the procedure well. *INDICATIONS AND HISTORY* Indications: ?? NSTEMI I21.4. *CARDIAC ANATOMY* Left ventricle: ??The cavity size was no rmal. Wall thickness was at the upper limits of normal. Systolic functio n was normal. The estimated ejection fraction was 55-60%. Endocardia l definiton was limited. The lateral wall appeared hypokinetic in the some views (loop 34). Diastolic parameters were not diagnostic . Aortic valve: ?? Probably trileaflet; no rmal thickness leaflets. Mobility was not restricted. ??Doppler: ??Transva lvular velocity was within the normal range. There was no stenosis. The re was no significant regurgitation. Aorta: ??Aortic root: The aortic root wa s normal in size. Mitral valve: ?? Structurally normal trudy ve. ?? Mobility was not restricted. ??Doppler: ??Transvalvular v elocity was within the normal range. There was no evidence for stenosi s. There was no significant regurgitation. ?Peak gradient (D): 2 .2mm Hg. Left atrium: ??The atrium was at the upp er limits of normal in size. Right ventricle: ??The cavity size was n ormal. Wall thickness was normal. Systolic function was normal. Pulmonic valve: ?Doppler: ??Transval vular velocity was within the normal range. There was no evidence for stenosis. There was no significant regurgitation. Tricuspid valve: ?? Structurally normal valve. ?Doppler: ??Transvalvular velocity was within the normal range. Th ere was no evidence for stenosis. There was no significant regur gitation. Pulmonary artery: ?Systolic pressure could not be accurately estimated. Right atrium: ??The atrium was normal in size. Pericardium: ??There was no pericardial effusion. Systemic veins: Inferior vena cava: The vessel was dilat ed. The respirophasic diameter changes were in the normal range (greate r than or equal to 50%). Measurements Left ventricle ? Value ?Reference LV ID, ED, PLAX ?4.3 ?? cm ? 3.5 - 6.0 LV ID, ES, PLAX ?2.8 ?? cm ? 2.1 - 4.0 LV PW thickness, ED, PLAX ?1.1 ?? cm ? LV end-diastolic volume, 1-p A2C ? 86 ?ml ? LV ejection fraction, 1-p A2C ?59 ?% ? LV end-diastolic volume, 1-p A4C ? 118 ?? ml ? LV ejection fraction, 1-p A4C ?59 ?% ? LV IVRT, DP ?(H) ? 116 ?? ms ? 60 - 100 LV e', lateral ? 0.074 m/sec ?? LV E/e', lateral ? 10 ? LV e', medial ?0.064 m/sec ?? LV E/e', medial ?11 ? LV e', average ? 0.069 m/sec ?? LV E/e', average ? 11 ? Ventricular septum ? Value ?Reference IVS thickness, ED, PLAX ?1.2 ?? cm ? LVOT ? Value ?Reference LVOT ID, S ? 2.1 ?? cm ? LVOT area ?3.5 ?? cm^2 ?? LVOT peak velocity, S ?0.95 ??m/sec ?? LVOT mean velocity, S ?0.66 ??m/sec ?? LVOT VTI, S ?21.3 ??cm ? LVOT mean gradient, S ?2 ? mm Hg ?? Stroke volume (SV), LVOT DP ?74 ?ml ? Stroke index (SV/bsa), LVOT DP ? 30 ?ml/m^2 Aorta ?Value ?Reference Aortic root ID ? 3.3 ?? cm ? Ascending aorta ID, A-P ?3.4 ?? cm ? Ascending aorta ID, A-P, S ? 3.4 ?? cm ? Left atrium ?Value ?Reference LA ID, A-P, ES ? 3.8 ?? cm ? LA ID/bsa, A-P ? 1.5 ?? cm/m^2 <=2.2 LA area, ES, A4C ? 23.3 ??cm^2 ?? 8.8 - 23.4 LA area, ES, A2C ? 27 ?cm^2 ?? LA volume, ES, 2-p ? 80 ?ml ? LA volume/bsa, ES, 2-p ? 32 ?ml/m^2 LA/aortic root ratio ? 1.15 ? Mitral valve ? Value ?Reference Mitral E-wave peak velocity ?0.74 ??m/sec ?? Mitral A-wave peak velocity ?0.8 ?? m/sec ?? Mitral deceleration time ? 225 ?? ms ? 150 - 230 Mitral peak gradient, D ?2.2 ?? mm Hg ?? Mitral E/A ratio, peak ? 0.9 ? Legend: (L) ??and ??(H) ??ursula values outside sp ecified reference range. I have personally reviewed the images an d have reviewed and edited the reported findings. Electronically signed by Raj Greene MD 08/25/2017 09:40 Procedure Note Raj Greene MD - 08/25/2017 *Interpreting Group:* *[facility]* [address] [place] [address] Date of study: 08/25/2017 Transthoracic Echocardiography M-mode, complete 2D, complete spectral D oppler, and color Doppler *STUDY CONCLUSIONS* Summary: 1. Left ventricle: The cavity size was n ormal. Wall thickness was at the upper limits of normal. Systolic functi on was normal. The estimated ejection fraction was 55-60%. Endocardi al definiton was limited. The lateral wall appeared hypokinetic in th e some views (loop 34). 2. Right ventricle: The cavity size was normal. Wall thickness was normal. Systolic function was normal. *PATIENT PRESENTATION* Height: 182.9cm ((72in) ) S/D Pressure: 115 / 85 Weight: 117.9kg ((259.5lb) ) BSA: 2.49m^2 Test start time: 07:56 AM. Test stop time: 08:30 AM. ADMITTING Chang Garduno MD EMERGENCY DEPARTMENT COORDINATOR Nathaniel Blackwood RDCS REFERRING Altaf Hoover ATTENDING Kerri Stein FELLOW Franco Moon MD PERFORMING [facility] ORDERING Nathaniel Greene *PROCEDURE DATA* Procedure information: The patient was i dentified by two identifiers. This study was [facility] by [facility]. Pertinent images and digital data are archived for permanent storage and are available for subsequent review. Study status: Routine. Transthoracic echocardiography. M-mode, complete 2D, complete spectral Doppler, and color Doppler. A T ransthoracic Echocardiogram was performed. Scanning was performed from t he parasternal, apical, subcostal, and suprasternal notch acoust ic windows. Images were obtained using an Epiq 15 cardiac ultrasound mach ine. Image quality was suboptimal. The study was technically li mited due to poor acoustic window availability and body habitus. In travenous contrast (Definity) was administered by Nathaniel Blackwood CVT, R DCS to enhance delineation of left ventricular endocardial borders. Pr ior to administration at least two (2) contiguous segments of the left ventricular border were not visualized. Definity amount administered was a total of 2ml. One vial was used. Study completion: The patient tolerated the procedure well. *INDICATIONS AND HISTORY* Indications: NSTEMI I21.4. *CARDIAC ANATOMY* Left ventricle: The cavity size was norm al. Wall thickness was at the upper limits of normal. Systolic functio n was normal. The estimated ejection fraction was 55-60%. Endocardia l definiton was limited. The lateral wall appeared hypokinetic in the some views (loop 34). Diastolic parameters were not diagnostic . Aortic valve: Probably trileaflet; tabatha l thickness leaflets. Mobility was not restricted. Doppler: Transvalvul ar velocity was within the normal range. There was no stenosis. The re was no significant regurgitation. Aorta: Aortic root: The aortic root was normal in size. Mitral valve: Structurally normal valve. Mobility was not restricted. Doppler: Transvalvular veloc ity was within the normal range. There was no evidence for stenosi s. There was no significant regurgitation. Peak gradient (D): 2.2mm Hg. Left atrium: The atrium was at the upper limits of normal in size. Right ventricle: The cavity size was nor mal. Wall thickness was normal. Systolic function was normal. Pulmonic valve: Doppler: Transvalvular v elocity was within the normal range. There was no evidence for stenosis. There was no significant regurgitation. Tricuspid valve: Structurally normal trudy ve. Doppler: Transvalvular velocity was within the normal range. Th ere was no evidence for stenosis. There was no significant regur gitation. Pulmonary artery: Systolic pressure coul d not be accurately estimated. Right atrium: The atrium was normal in s ize. Pericardium: There was no pericardial ef fusion. Systemic veins: Inferior vena cava: The vessel was dilat ed. The respirophasic diameter changes were in the normal range (greate r than or equal to 50%). Measurements Left ventricle Value Reference LV ID, ED, PLAX 4.3 cm 3.5 - 6.0 LV ID, ES, PLAX 2.8 cm 2.1 - 4.0 LV PW thickness, ED, PLAX 1.1 cm ------ ---- LV end-diastolic volume, 1-p A2C 86 ml LV ejection fraction, 1-p A2C 59 % ---- ------ LV end-diastolic volume, 1-p A4C 118 ml LV ejection fraction, 1-p A4C 59 % ---- ------ LV IVRT, DP (H) 116 ms 60 - 100 LV e', lateral 0.074 m/sec LV E/e', lateral 10 LV e', medial 0.064 m/sec LV E/e', medial 11 LV e', average 0.069 m/sec LV E/e', average 11 Ventricular septum Value Reference IVS thickness, ED, PLAX 1.2 cm -------- -- LVOT Value Reference LVOT ID, S 2.1 cm LVOT area 3.5 cm^2 LVOT peak velocity, S 0.95 m/sec ------ ---- LVOT mean velocity, S 0.66 m/sec ------ ---- LVOT VTI, S 21.3 cm LVOT mean gradient, S 2 mm Hg --------- - Stroke volume (SV), LVOT DP 74 ml ----- ----- Stroke index (SV/bsa), LVOT DP 30 ml/m^ 2 Aorta Value Reference Aortic root ID 3.3 cm Ascending aorta ID, A-P 3.4 cm -------- -- Ascending aorta ID, A-P, S 3.4 cm ----- ----- Left atrium Value Reference LA ID, A-P, ES 3.8 cm LA ID/bsa, A-P 1.5 cm/m^2 <=2.2 LA area, ES, A4C 23.3 cm^2 8.8 - 23.4 LA area, ES, A2C 27 cm^2 LA volume, ES, 2-p 80 ml LA volume/bsa, ES, 2-p 32 ml/m^2 ------ ---- LA/aortic root ratio 1.15 Mitral valve Value Reference Mitral E-wave peak velocity 0.74 m/sec Mitral A-wave peak velocity 0.8 m/sec - --------- Mitral deceleration time 225 ms 150 - 2 30 Mitral peak gradient, D 2.2 mm Hg ----- ----- Mitral E/A ratio, peak 0.9 Legend: (L) and (H) ursula values outside specifie d reference range. I have personally reviewed the images an d have reviewed and edited the reported findings. Electronically signed by Raj Greene MD 08/25/2017 09:40 Performing Organization Address City/State/ZIP Code Phon e Number [facility] (ABNORMAL) GLUCOSE, GLUCOMETER (08/25/2017 6:45 EDT) Glucose, 203 (H) 70 - 100 [facility] Fingerstick mg/dl LABORATORY SERVICES Net Web Application Developer ID [id number]: [facility] Test Performed by LABORATORY Nursing Services SERVICES Specimen Blood Performing Organization Address [facility]/ZIP [facility] e Number [facility] [address] [place] [address] SERVICES CREATININE (08/25/2017 6:30 EDT) Creatinine 1.00 0.66 - 1.25 [facility] mg/dl LABORATORY SERVICES GFR, Calculated 87 >60 [facility] Comment: ml/min/1.73m2 LABORATORY eGFR calculated using CKD-EPI equation for SERVICES non Americans. Multiply eGFR by 1.16 for Americans. Specimen Blood specimen (specimen) - Blood Performing Organization Address [facility] e Number [facility] [address] [place] [address] SERVICES BUN (08/25/2017 6:30 EDT) Pathologist Sig nature BUN 16 10 - 26 mg/dl [facility] LABORATO RY SERVICES Specimen Blood specimen (specimen) - Blood Performing Organization Address [facility] Phon e Number [facility] [address] [place] [address] SERVICES ELECTROLYTES (08/25/2017 6:30 EDT) Pathologist Sig nature Sodium 137 136 - 145 mEq/L [facility] LABORA TORY SERVICES Potassium 4.7 3.5 - 5.0 mEq/L [facility] LABORA TORY SERVICES Chloride 105 96 - 110 mEq/L [facility] LABORAT ORY SERVICES CO2 26 22 - 32 mEq/L [facility] LABORATO RY SERVICES Specimen Blood specimen (specimen) - Blood Performing Organization Address [facility] Phon e Number [facility] [address] [place] [address] SERVICES HEPARIN LEVEL - UNFRACTIONATED HEPARIN (08/25/2017 6:30 EDT) Heparin Level-UFH 0.48 IU/mL [facility] Comment: LABORATORY SERVICES Unfractionated heparin therapeutic range = 0.3-0.7 IU/ ml This test is not intended for monitoring direct Xa inhibitors, direct thrombin inhibitors, or fondaparinux. Exogenous ATIII is NOT supplied in this assay. For unexpected or persistently low levels, consider measuring patient's ATIII level. Specimen Blood specimen (specimen) - Blood Performing Organization Address [facility] Phon e Number [facility] [address] [place] [address] SERVICES (ABNORMAL) TROPONIN I (08/25/2017 2:58 EDT) Troponin I 12.400 (H) <0.034 ng/ml [facility] (ng/mL) Comment: LABORATORY The results of this assay can be falsely SERVICES lowered due to the consumption of Biotin. Specimen Blood specimen (specimen) - Blood Performing Organization Address [facility] Phon e Number [facility] [address] [place] [address] SERVICES (ABNORMAL) GLUCOSE, GLUCOMETER (08/25/2017 2:56 EDT) Pathologist [facility] Glucose, 182 (H) 70 - 100 [facility] Fingerstick mg/dl LABORATORY SERVICES Net Web Application Developer ID [id number]: [facility] Test Performed by LABORATORY Nursing Services SERVICES Specimen Blood Performing Organization Address [facility] Phon e Number [facility] [address] [place] [address] SERVICES HEPARIN LEVEL - UNFRACTIONATED HEPARIN (08/25/2017 1:21 EDT) Heparin Level-UFH 0.15 IU/mL [facility] Comment: LABORATORY SERVICES Unfractionated heparin therapeutic range = 0.3-0.7 IU/ ml This test is not intended for monitoring direct Xa inhibitors, direct thrombin inhibitors, or fondaparinux. Exogenous ATIII is NOT supplied in this assay. For unexpected or persistently low levels, consider measuring patient's ATIII level. Sample retested, result confirmed Specimen Blood specimen (specimen) - Blood Performing Organization Address [facility] Phon e Number [facility] [address] [place] [address] SERVICES INPATIENT ADD-ON (08/25/2017 1:15 EDT) Pathologist Sig nature Tests to be added MAGNESIUM,CALCI [facility] UM,CREATININE,E LABORATORY SERVICES LECTROLYTES,CBC ,PROTIME,HEMOGL OBIN A1C Number for problems Not Given [facility] LABORATORY SERVICES Accession number [id number] [facility] LABORATORY SERVICES Specimen Other Performing Organization Address City/State/ZIP Code Phon e Number [facility] [address] [place] [address] SERVICES EKG 12-LEAD (08/25/2017 0:13 EDT) Specimen Narrative [facility] EKG - 08/31/2017 14:2 2 EDT ?[facility] Emergency ? Test Date: ?2017-08-25 Pat Name: ? SAMY PATRICIO ? Department: ?? ED ? Room: ? AC04 Gender: ? Male ? Community Health Director: ?? [id number] : ?1965 ? Requested By: NOLA Barksdale Order Number: [id number] ? Martha VASQUEZ: ?? VASQUEZ BETANCOURT SA, MD ? Measurements Intervals ?[place] ? Rate: ? 65 ? P: ?57 [place]: ? 186 ?QRS: ?43 QRSD: ? 88 ? T: ?29 QT: ? 395 ? QTc: ?412 ? Interpretive Statements SINUS RHYTHM Automated Interpretation. ??Provider Int erpretation to follow. No previous ECG available for comparison I reviewed the tracing and have either a greed or edited the findings in this report. Electronically Signed On 09-01-19 14:22:34 EDT by VASQUEZ BETANCOURT SA, MD. Procedure Note Vasquez Thorne Sa, MD - 08/31/2017 [facility] Emergency Test Date: 2017-08-25 Pat Name: SAMY PATRICIO Department: ED Room: [facility] Gender: Male Community Health Director: [id number] : 1965 Requested By: NOLA Barksdale Order Number: [id number] Reading MD: Danika BETANCOURT SA, MD Measurements Intervals [place] Rate: 65 P: 57 [place]: 186 QRS: 43 QRSD: 88 T: 29 QT: 395 QTc: 412 Interpretive Statements SINUS RHYTHM Automated Interpretation. Provider Inter pretation to follow. No previous ECG available for comparison I reviewed the tracing and have either a greed or edited the findings in this report. Electronically Signed On 09-01-19 14:22:34 EDT by VASQUEZ BETANCOURT SA, MD. Performing Organization Address City/State/ZIP Code Phon e Number [facility] EKG PROTIME (08/24/2017 23:16 EDT) Pro Time 11.2Comment: NOTE NEW 10.3 - 13.4 [facility] REFERENCE RANGE OF secs LABORATORY SERVICES APR 13 2017 I.N.R. 1.0 0.9 - 1.1 [facility] Comment: Ratio LABORATORY SERVICES Moderate Intensity Coumadin INR = 2.0-3.0 Adjustments in anticoagulant therapy dose should be based upon the INR and NOT the Pro Time. Specimen Blood Performing Organization Address City/State/ZIP Code Phon e Number [facility]ORATORY [address] [place] [phone] SERVICES MAGNESIUM (08/24/2017 23:16 EDT) Pathologist Sig nature Magnesium 2.0 1.7 - 2.8 mg/dl [facility] LABORA TORY SERVICES Specimen Blood Performing Organization Address [facility]/ZIP Code Phon e Number [facility] [address] [place] [address] SERVICES ELECTROLYTES (08/24/2017 23:16 EDT) Pathologist Sig nature Sodium 139 136 - 145 mEq/L [facility] LABORATORY SERVICES Potassium 4.3 3.5 - 5.0 mEq/L [facility] Comment: LABORATORY SERVICES Interpret results with caution. Prolonged sample storage may alter result. Chloride 108 96 - 110 mEq/L [facility] LABORATORY SERVICES CO2 24 22 - 32 mEq/L [facility] Comment: LABORATORY SERVICES Interpret results with caution. Prolonged sample storage may alter result. Specimen Blood Performing Organization Address City/[facility]/ZIP Code Phon e Number [facility] [address] [place] [phone] SERVICES HEMOGLOBIN A1C (08/24/2017 23:16 EDT) Hemoglobin A1C 9.6 % [facility] Comment: LABORATORY SERVICES Reference Range: <5.7% Normal 5.7-6.4% Prediabetes =>6.5% Diagnostic for diabetes (if confirmed) Goals for glycemic control in diabetes ADA 2017 For non adults with diabetes: ?? Target <7.5% For children and adolescents with type 1 diabetes: ?? Target <7.0% More or less stringent targets may be appropriate for individual patients. Est Avg Glucose 229 mg/dl [facility] Comment: LABORATORY SERVICES eAG represents the A1c result expressed as average glucose in mg/dl. Specimen Blood Performing Organization Address [facility] Code Phon e Number [facility] LABORATORY [address] [place] [address] SERVICES CREATININE (08/24/2017 23:16 EDT) Creatinine 1.03 0.66 - 1.25 [facility] mg/dl LABORATORY SERVICES GFR, Calculated 84 >60 [facility] Comment: ml/min/1.73m2 LABORATORY eGFR calculated using CKD-EPI equation for SERVICES non Americans. Multiply eGFR by 1.16 for Americans. Specimen Blood Performing Organization Address [facility] Phon e Number [facility] [address] [place] [address] SERVICES COMPLETE BLOOD COUNT (08/24/2017 23:16 EDT) Pathologist Sig nature WBC 9.13 4.0 - 10.4 K/cmm [facility] LABORATORY SERVICES RBC 4.47 4.36 - 5.78 M/cmm [facility] LABORATORY SERVICES Hemoglobin 13.8 13.8 - 17.3 gm/dl [facility] LABORATORY SERVICES HCT 40.5 39.5 - 50.2 % [facility] LABORATORY SERVICES MCV 91 81 - 95 fl [facility] LABORATORY SERVICES MCH 30.9 27.6 - 33.0 pg [facility] LABORATORY SERVICES MCHC 34.1 32.8 - 36.4 gm/dl [facility] LABORATORY SERVICES RDW-CV 12.5 <14.2 % [facility] LABORATORY SERVICES RDW-SD 41.3 <46.0 fl [facility] LABORATORY SERVICES PLT 234 141 - 377 K/cmm [facility] LABORATORY SERVICES MPV 10.4 9.5 - 12.7 fl [facility] LABORATORY SERVICES Specimen Blood Performing Organization Address [facility] Phon e Number [facility] [address] [place] [address] SERVICES CALCIUM (08/24/2017 23:16 EDT) Pathologist Sig nature Calcium 8.6 8.5 - 10.5 mg/dl [facility] LABORATORY SERVICES Calculated Calcium 9.2 8.5 - 10.5 mg/dl [facility] LABORATORY SERVICES Specimen Blood Performing Organization Address City/[facility] Phon e Number [facility] [address] [place] [address] SERVICES HOLD BLUE TOP (08/24/2017 23:16 EDT) Hold Blue Top Sample for [facility] coagulation will be LABORATORY SERVICES discarded after 4 hours Specimen Blood specimen (specimen) - Blood Performing Organization Address [facility] Phon e Number [facility] [address] [place] [address] SERVICES HOLD SST (08/24/2017 23:16 EDT) Pathologist Sig nature Hold SST Hold for further [facility] testing. Specimen LABORATORY SERVICES will be held for 5 days. Specimen Blood specimen (specimen) - Blood Performing Organization Address [facility] Phon e Number [facility] [address] [place] [address] SERVICES HOLD LAVENDER TOP (08/24/2017 23:16 EDT) Hold Purple Top EDTA for hematology will be discarded after 48 hours, differential not available after 12 [facility] hours. LABORATORY SERVICES Specimen Blood specimen (specimen) - Blood Performing Organization Address [facility] Phon e Number [facility] [address] [place] [address] SERVICES (ABNORMAL) TROPONIN I (08/24/2017 23:16 EDT) Troponin I 7.390 (H) <0.034 ng/ml [facility] (ng/mL) Comment: LABORATORY The results of this assay can be falsely SERVICES lowered due to the consumption of Biotin. Specimen Blood specimen (specimen) - Blood Performing Organization Address [facility] Phon e Number [facility] [address] [place] [address] SERVICES documented in this encounter Visit Diagnoses Diagnosis NSTEMI (non-ST elevated myocardial infar ction) ([facility]) ([facility]) - Primary Acute myocardial infarction, subendocard ial infarction, episode of care unspecified Tobacco abuse Tobacco use disorder CARLOTA (obstructive sleep apnea) Obstructive sleep apnea (adult) (pediatr ic) Type 2 diabetes mellitus, without long-t erm current use of insulin (HCC) Hyperlipidemia Other and unspecified hyperlipidemia CAITLYN (acute kidney injury) ([facility]) (HCC ) Acute kidney failure, unspecified documented in this encounter Administered Medications Inactive Administered Medications - up to 3 most recent administrations Medication Order MAR Action Action Date Dose Rate Site acetaminophen (TYLENOL) tablet 650 mg Given 08/25/2017 6:37 EDT 650 mg 650 mg, oral, EVERY 4 HOURS PRN, Starting on Mon08/25/17 at 0236, Until 08/26/17 at 1539, Pain, Routine aspirin chewable 81 mg tablet 1 dose, Starting on Mon08/25/17 at 0946, Until Sat 08/11 08/28 at 1539 aspirin chewable tablet Given 08/25/2017 9:47 EDT 81 mg oral, PRN, Starting on Mon08/25/17 at 0947, Until Mon08/25/17 at 0947, Routine aspirin EC tablet 81 mg Given 08/26/2017 8:06 EDT 81 mg 81 mg, oral, DAILY, First dose on Mon08/25/17 at 0900, Until Discontinued, Routine Given 08/25/2017 10:56 EDT 81 mg atorvastatin (LIPITOR) tablet 40 mg Given 08/26/2017 8:07 EDT 40 mg 40 mg, oral, DAILY, First dose on Mon08/25/17 at 0900, Until Discontinued, Routine Given 08/25/2017 10:56 EDT 40 mg clopidogrel (PLAVIX) tablet 300 mg Given 08/26/2017 10:21 EDT 300 mg 300 mg, oral, NOW X1, 1 dose, On 08/26/17 at 1030, STAT fentaNYL citrate (PF) 50 mcg/mL injectio n Given 08/25/2017 9:06 EDT 100 mcg intravenous, PRN, Starting on Mon08/25/17 at 0906, Until Mon08/25/17 at 0906, Routine heparin 1,000 unit/mL injection 3,300 Un its Given 08/25/2017 2:31 EDT 3,300 Units 3,300 Units (rounded from 3,279.5 Units = 35 Units/kg ? 93.7 kg Adjusted weight), intravenous, NOW X1, 1 dose, On Mon08/25/17 at 0230, STAT heparin 1,000 unit/mL injection Given 08/25/2017 9:23 EDT 9,000 Units intravenous, PRN, Starting on Mon08/25/17 at 0923, Until Mon08/25/17 at 0923, Routine heparin in 1/2 NS 25,000 New Bag 08/24/2017 23:56 EDT 15 Units/kg/ hr 17.7 mL/hr unit/250 mL infusion 15 Units/kg/hr ? 117.9 kg (17.685 mL/hr, rounded to 17.7 mL/hr), intravenous, at 17.7 mL/hr, CONTINUOUS, Starting on Mon08/25/17 at 0000, Until Mon08/25/17 at 0003, STAT heparin in 1/2 NS Rate Documented 08/25/2017 3:30 EDT 17 Units/kg/hr 15.9 mL/hr 25,000 unit/250 mL infusion 17 Units/kg/hr ? 93.7 kg Adjusted weight (15.929 mL/hr, rounded to 15.9 mL/hr), intravenous, at 15.9 mL/hr, CONTINUOUS, Starting on Mon08/25/17 at 0015, Until Mon08/25/17 at 1001, STAT Rate Change 08/25/2017 2:20 EDT 17 Units/kg/hr 15.9 mL/hr New Bag 08/25/2017 0:07 EDT 15 Units/kg/hr 14.1 mL/hr HYDROmorphone injection (DILAUDID) 0.5 mg/1 mL Given 018 2:52 EDT 0.5 mg syringe 0.5 mg 0.5 mg, intravenous, EVERY 4 HOURS PRN, Starting on Mon08/25/17 at 0236, Until Mon08/25/17 at 1002, Pain, Routine HYDROmorphone injection (DILAUDID) 0.5 mg/1 mL Given 08/25/2017 1:25 EDT 1 mg syringe 1 mg 1 mg, intravenous, NOW X1, 1 dose, On Mon08/25/17 at 0130, STAT insulin aspart U-100 (NOVOLOG FLEXPEN) Given 08/25/2017 17:51 ED T 4 Units injection subcutaneous, EVERY 6 HOURS, First dose on Mon08/25/17 at 0245, Until Discontinued, Routine Given 08/25/2017 11:51 EDT 6 Units insulin aspart U-100 (NOVOLOG FLEXPEN) Given 08/26/2017 8:24 EDT 4 Units injection subcutaneous, 3 TIMES DAILY WITH MEALS, First dose on Mon08/26/17 at 0800, Until Discontinued, Routine lisinopril (PRINIVIL, ZESTRIL) tablet 2. 5 mg Given 08/26/2017 8:07 EDT 2.5 mg 2.5 mg, oral, DAILY, First dose on Mon08/25/17 at 1545, Until Discontinued, Routine Given 08/25/2017 15:43 EDT 2.5 mg metoprolol (LOPRESSOR) tablet 12.5 mg Given 08/26/2017 8:06 EDT 12.5 mg 12.5 mg, oral, 2 TIMES DAILY, First dose on Mon08/25/17 at 0900, Until Discontinued, Routine Given 08/25/2017 20:07 EDT 12.5 mg Given 08/25/2017 10:56 EDT 12.5 mg midazolam (PF) (VERSED) 1 mg/mL injectio n Given 08/25/2017 9:05 EDT 2 mg intravenous, PRN, Starting on Mon08/25/17 at 0905, Until Mon08/25/17 at 0905, Routine morphine injection 2 mg Given 08/25/2017 1:02 EDT 2 mg 2 mg, intravenous, NOW X1, 1 dose, On Mon08/25/17 at 0100, STAT nicotine (NICODERM CQ) 14 mg/24 Patch Applied 08/26/2017 8:07 EDT 1 P atch Left Arm hr patch 1 Patch 1 Patch, transdermal, DAILY, First dose on Mon08/25/17 at 1530, Until Discontinued, Routine Patch Applied 08/25/2017 15:43 EDT 1 Patch Left A rm nitroGLYCERIN (NITROSTAT) 0.4 mg SL tabl et 1 dose, Starting on Mon08/25/17 at 0946, Until 08/11 at 1539 nitroGLYCERIN (NITROSTAT) SL tablet Given 08/25/2017 9:48 EDT 0.4 mg sublingual, PRN, Starting on Mon08/25/17 at 0948, Until Mon08/25/17 at 0948, Routine nitroglycerin 400 mcg/ml in Rate Change 08/25/2017 2:39 EDT 75 mcg /min 11.3 mL/hr D5W 250 ml infusion 5 mcg/min (0.75 mL/hr, rounded to 0.8 mL/hr), intravenous, at 0.8 mL/hr, CONTINUOUS, Starting on Mon08/25/17 at 0000, Until Mon08/25/17 at 0237, STAT Rate Change 08/25/2017 1:22 EDT 50 mcg/min 7.5 mL/hr Rate Change 08/25/2017 0:57 EDT 20 mcg/min 3 mL/hr nitroglycerin 400 mcg/ml Rate Documented 08/25/2017 6:20 EDT 75 mcg /min 11.3 mL/hr in D5W 250 ml infusion 0.5-5 mcg/kg/min ? 117.9 kg (8.8425-88.425 mL/hr, rounded to 8.8-88.4 mL/hr), intravenous, at 8.8-88.4 mL/hr, CONTINUOUS, Starting on Mon08/25/17 at 0245, Until Mon08/25/17 at 1505, Routine Restarted 08/25/2017 3:04 EDT 75 mcg/min 11.3 mL/hr pantoprazole (PROTONIX) tablet 40 mg Given 08/26/2017 8:07 EDT 40 mg 40 mg, oral, DAILY, First dose on Mon08/25/17 at 0900, Until Discontinued Given 08/25/2017 10:56 EDT 40 mg sodium chloride 0.9 % (NS) New Bag 08/25/2017 10:56 EDT 1 mL/kg/hr 117.9 mL/hr infusion at 117.9 mL/hr, 1 mL/kg/hr ? 117.9 kg (117.9 mL/hr), intravenous, CONTINUOUS, Starting on Mon08/25/17 at 0700, Until Mon08/25/17 at 1655, Routine, Preprocedure sodium chloride 0.9 % flush 3 mL Given 08/26/2017 8:25 EDT 3 mL 3 mL, intravenous, EVERY 8 HOURS, First dose on Mon08/25/17 at 0245, Until Discontinued, Routine Given 08/25/2017 23:21 EDT 3 mL Given 08/25/2017 15:43 EDT 3 mL ticagrelor (BRILINTA) tablet 90 mg Given 08/26/2017 8:06 EDT 90 mg 90 mg, oral, 2 TIMES DAILY, First dose on Mon08/25/17 at 2100, Until Discontinued, Routine Given 08/25/2017 20:13 EDT 90 mg ticagrelor (BRILINTA) tablet Given 08/25/2017 9:47 EDT 180 mg oral, PRN, Starting on Mon08/25/17 at 0947, Until Mon08/25/17 at 0947, Routine documented in this encounter Discontinued Medications Medication Sig Discontinue Reason Start Date End Date metoprolol XL (TOPROL-XL) Take 1 Tab by 08/26/2017 0 08/26/2017 25 mg tablet mouth daily. lisinopril (PRINIVIL, Take 1 Tab by 08/26/201708/26 ZESTRIL) 2.5 mg tablet mouth daily. ticagrelor (BRILINTA) 90 Take 1 Tab by 08/26/2017 mg tablet mouth 2 times daily. aspirin 81 mg EC tablet Take 1 Tab by 08/27/2017 mouth daily. atorvastatin (LIPITOR) 40 Take 1 Tab by 08/26/2017 0 08/26/2017 mg tablet mouth daily. atorvastatin (LIPITOR) 10 Take 20 mg by 0 08/26/2017 mg tablet mouth daily. ticagrelor (BRILINTA) 90 Take 1 Tab by 08/25/2017 mg tablet mouth 2 times daily. documented as of this encounter Historical Medications This list may reflect changes made after this encounter. Medication Sig Dispensed Refills Start Date End Date glipiZIDE (GLUCOTROL) 5 mg Take 5 mg by mouth 0 tablet daily. omeprazole (PRILOSEC) 20 Take 40 mg by mouth 0 01/24/2019 mg capsule daily. atorvastatin (LIPITOR) 10 Take 20 mg by mouth 0 08/26/2017 mg tablet daily. metFORMIN (GLUCOPHAGE) 500 Take 1,000 mg by 0 04/12/2019 mg tablet mouth daily. added in this encounter Active and Recently Administered Medications Times are shown in EDT. Scheduled Medication Order 08/24/2017 08/25/2017 08/26/2017 aspirin EC tablet 81 mg 1056 (Given - Provider: Manisha Hampton RN) 0806 (Given - Provider: Manisha Hampton RN) 81 mg, oral, DAILY, First dose on Mon at 0900, Until Discontinued, Routine atorvastatin (LIPITOR) tablet 40 mg 1056 (Given - Provider: Manisha Hampton RN) 0807 (Given - Provider: Manisha Hampton RN) 40 mg, oral, DAILY, First dose on Mon at 0900, Until Discontinued, Routine clopidogrel (PLAVIX) tablet 300 mg (COMPLETED) 1021 (Given - Provider: Manisha Hampton RN) 300 mg, oral, NOW X1, 1 dose, Mon08/26/17 at 1030, STAT heparin 1,000 unit/mL injection 3,300 Units (COMPLETED) 0231 (Given - Provider: Belle Villar RN - Comment: PRN bolus per protocol) 3,300 Units (rounded from 3,279.5 Units = 35 Units/kg ? 93.7 kg Adjusted weight), intravenous, NOW X1, 1 dose, Mon08/25/17 at 0230, STAT HYDROmorphone injection (DILAUDID) 0.5 mg/1 mL syringe 1 mg (COMPLETED) 0125 (Given - Provider: Belle Villar RN) 1 mg, intravenous, NOW X1, 1 dose, Mon08/25/17 at 0130, STAT insulin aspart U-100 (NOVOLOG FLEXPEN) injection (CANCELED) 0647 (Hold - Provider: Frances Martin RN - Reason: NPO)1151 (Given - Provider: Manisha Hampton RN)1157 (Not Given - Provider: Manisha Hampton RN - Reason: NPO)1751 (Given - Provider: Manisha Hampton RN) subcutaneous, EVERY 6 HOURS, First dose on Mon08/25/17 at 0245, Until Discontinued insulin aspart U-100 (NOVOLOG FLEXPEN) injection 2234 (Not Given - Provider: Carolyn Estevez RN - Reason: Order parameters not met) subcutaneous, AT BEDTIME, First dose on Mon08/25/17 at 2100, Until Discontinued insulin aspart U-100 (NOVOLOG FLEXPEN) injection 0824 (Given - Provider: Manisha Hampton RN)1200 (Canceled Entry - Provider: Batch Job User Admin - Comment: Automatically canceled at discontinue of medication order) subcutaneous, 3 TIMES DAILY WITH MEALS, First dose on Mon08/26/17 at 0800, Until Discontinued lisinopril (PRINIVIL, ZESTRIL) tablet 2.5 mg 1543 (Given - Provider: Manisha Hampton RN) 0807 (Given - Provider: Manisha Hampton RN) 2.5 mg, oral, DAILY, First dose on Mon at 1545, Until Discontinued, Routine metoprolol (LOPRESSOR) tablet 12.5 mg 10 56 (Given - Provider: Manisha Hampton RN)2006 (Given - Provider: Carolyn Estevez RN) 08 (Given - Provider: Manisha Hampton RN) 12.5 mg, oral, 2 TIMES DAILY, First dose on Mon08/25/17 at 0900, Until Discontinued, Routine morphine injection 2 mg (COMPLETED) 010 (Given - Provider: Belle Villar RN) 2 mg, intravenous, NOW X1, 1 dose, Mon08/25/17 at 0100, STAT nicotine (NICODERM CQ) 14 mg/24 hr patch 1 Patch 1543 (Patch Applied - Provider: Manisha Hampton RN)2235 (Patch Removed - Provider: Carolyn Estevez RN) 08 (Patch Applied - Provider: Manisha Hampton RN)2100 (Due: Patch Removed - Provider: Manisha Hampton RN) 1 Patch, transdermal, DAILY, First dose on Mon08/25/17 at 1530, Until Discontinued, Routine pantoprazole (PROTONIX) tablet 40 mg 1056 (Given - Provider: Manisha Hampton RN) 0807 (Given - Provider: Manisha Hampton RN) 40 mg, oral, DAILY, First dose on Mon08/25/17 at 0900, Until Dis continued sodium chloride 0.9 % flush 3 mL 0242 (G iven - Provider: Belle Villar RN)1056 (Given - Provider: Manisha Hampton RN)1543 (Given - Provider: Manisha Hampton RN)2321 (Given - Provider: Carolyn Estevez RN) 0825 (Given - Provider: Manisha Hampton, GUILLAUME) 3 mL, intravenous, EVERY 8 HOURS, First dose on Mon08/25/17 at 0245, Until Discontinued, Routine ticagrelor (BRILINTA) tablet 90 mg (CANCELED) 2012 (Given - Provider: Carolyn Estevez RN) 0806 (Given - Provider: Manisha Hampton RN) 90 mg, oral, 2 TIMES DAILY, First dose o n Mon08/25/17 at 2100, Until Discontinued, Routine Continuous Medication Order 08/24/2017 08/25/2017 08/26/2017 heparin in 1/2 NS 25,000 unit/250 mL infusion (CANCELE D) 2356 (New Bag - Provider: Belle Villar RN - Comment: restarted heparin drip from [facility] begun at 1915.) 0007 (Completed - Provider: Belle Villar, GUILLAUME) 15 Units/kg/hr ? 117.9 kg (17.685 mL/hr, rounded to 17.7 mL/hr), intravenous, at 17.7 mL/hr, CONTINUOUS, Starting Mon08/25/17 at 0000, Until Mon08/25/17 at 0003, STAT heparin in 1/2 NS 25,000 unit/250 mL infusion (CANCELED) 0007 (New Bag - Provider: Belle Villar RN)0220 (Rate Change - Provider: Belle Villar RN)0330 (Rate Documented - Provider: Frances Martin RN)0852 (IV Stopped - Provider: Luis Ballard RN) 17 Units/kg/hr ? 93.7 kg Adjusted weight (15.929 mL/hr, rounded to 15.9 mL/hr), intravenous, at 15.9 mL/hr, CONTINUOUS, Starting Mon08/25/17 at 0015, Until Mon08/25/17 at 1001, STAT nitroglycerin 400 mcg/ml in D5W 250 ml infusion (CANCELED) 0006 (New Bag - Provider: Belle Villar RN)0029 (Rate Change - Provider: Belle Villar RN)0043 (Rate Change - Provider: Belle Villar RN)0057 (Rate Change - Provider: Belle Villar RN) 5 mcg/min (0.75 mL/hr, rounded to 0.8 mL /hr), intravenous, at 0.8 mL/hr, CONTINUOUS, Starting Mon08/25/17 at 0000, Until Mon08/25/17 at 0237, STAT 0122 (Rate Change - Provider: Belle Villar RN)0239 (Rate Change - Provider: Amarilis Terrell RN)0304 (Completed - Provider: Belle Villar, GUILLAUME) nitroglycerin 400 mcg/ml in D5W 250 ml infusion (CANCELED) 0304 (Restarted - Provider: Belle Villar RN)0620 (Rate Documented - Provider: Frances Martin RN)0852 (IV Stopped - Provider: Luis Ballard RN) 0.5-5 mcg/kg/min ? 117.9 kg (8.8425-88.425 mL/hr, rounded to 8.8-88.4 mL/hr), intravenous, at 8.8- 88.4 mL/hr, CONTINUOUS, Starting Mon08/25/17 at 0245, Until Mon08/25/17 at 1505, Routine sodium chloride 0.9 % (NS) infusion () 1056 (New Bag - Provider: Manisha Hampton RN) at 117.9 mL/hr, 1 mL/kg/hr ? 117.9 kg (117.9 mL/hr), intravenous, CONTINUOUS, Starting Mon08/25/17 at 0700, Until Mon08/25/17 at 1655, Routine PRN Medication Order 08/24/2017 08/25/2017 08/26/2017 acetaminophen (TYLENOL) tablet 650 mg 06 37 (Given - Provider: Frances Martin RN) 650 mg, oral, EVERY 4 HOURS PRN, Startin g Mon08/25/17 at 0236, Until 08/26/17 at 1539, Pain, Routine aspirin chewable tablet (COMPLETED) 0947 (Given - Provider: Altaf Becerra RN) oral, PRN, Starting on Mon08/25/17 at 0947, Until Mon 8 at 0947, Routine calcium carbonate (TUMS) 200 mg calcium (500 mg) per chewable tablet tablet,chewable 1 Tab 1 Tab, oral, 2 TIMES DAILY PRN, Starting Mon08/25/17 at 0236, Until 08/26/17 at 1539, Heartburn, Routine dextrose 50 % solution 12.5 g 12.5 g (25 mL), intravenous, PRN, Starti ng Mon08/25/17 at 0236, Until 08/26/17 at 1539, Low Blood Sugar, Routine fentaNYL citrate (PF) 50 mcg/mL injection (COMPLETED) 0906 (Given - Provider: Altaf Becerra RN - Comment: given in divded doses) intravenous, PRN, Starting on Mon 8 at 0906, Until Mon08/25/17 at 0906, Routine glucagon injection 1 mg 1 mg, intramuscular, PRN, Starting Mon at 0236, Until 08/26/17 at 1539, Low blood sugar, Routine heparin 1,000 unit/mL injection (COMPLETED) 09 (Given - Provider: Altaf Becerra, GUILLAUME) intravenous, PRN, Starting on Mon 8 at 0923, Until Mon08/25/17 at 0923, Routine HYDROmorphone injection (DILAUDID) 0.5 mg/1 mL syringe 0.5 m g (CANCELED) 0252 (Given - Provider: Belle Villar RN) 0.5 mg, intravenous, EVERY 4 HOURS PRN, Starting Mon08/25/17 at 0236, Until Mon08/25/17 at 1002, Pain, Routine midazolam (PF) (VERSED) 1 mg/mL injection (COMPLETED) 904 (Given - Provider: Altaf Becerra, GUILLAUME) intravenous, PRN, Starting on Mon 8 at 0905, Until Mon08/25/17 at 0905, Routine nitroGLYCERIN (NITROSTAT) SL tablet (COMPLETED) 09 (Given - Provider: Altaf Becerra RN) sublingual, PRN, Starting on Mon08/25/17 at 0948, Until Mon08/25/17 at 0948, Routine polyethylene glycol 3350 (MIRALAX) packet 17 g 17 g, oral, DAILY PRN, Starting 08/25 at 0236, Until 08/26/17 at 1539, Constipation, Routine ramelteon (ROZEREM) tablet 8 mg 8 mg, oral, AT BEDTIME PRN, Starting Mon08/25/17 at 0236, Until 08/26/17 at 1539, Sleep, Routine ticagrelor (BRILINTA) tablet (COMPLETED) 09 (Given - Provider: Altaf Becerra, GUILLAUME) oral, PRN, Starting on Mon08/25/17 at 0947, Until Mon 8 at 0947, Routine No Frequency Medication Order 08/24/2017 08/25/2017 08/26/2017 aspirin chewable 81 mg tablet 1 dose, Starting Mon08/25/17 at 0946, Until Discontinued nitroGLYCERIN (NITROSTAT) 0.4 mg SL tablet 1 dose, Starting Mon08/25/17 at 0946, Until Discontinued documented in this encounter Orders Medications Ordered That Might Not Have Count Last Ord ered Date First Ordered Date Been Administered aspirin chewable 81 mg tablet 1 08/25/2017 calcium carbonate (TUMS) 200 mg calcium 1 08/26/19 18 (500 mg) per chewable tablet tablet,chewable 1 Tab clopidogrel (PLAVIX) tablet 75 mg 1 08/25/2017 dextrose 50 % solution 12.5 g 1 08/25/2017 fentaNYL citrate (PF) 50 mcg/mL injection 2017 glucagon injection 1 mg 1 08/25/2017 heparin 1,000 unit/mL injection 08/25/2017 heparin 1,000 unit/mL injection 3,300 1 08/25/2017 Units heparin 1,000 unit/mL injection 6,600 1 08/25/2017 Units heparin 1000 unit/ml syringe 08/25/2017 HYDROmorphone injection (DILAUDID) 0.5 8 mg/1 mL syringe insulin aspart U-100 (NOVOLOG FLEXPEN) 2 8 injection lidocaine 20 mg/mL (2 %) injection 08/25/2017 midazolam (PF) (VERSED) 1 mg/mL injection 1 2017 morphine 2 mg/mL injection 08/25/2017 nitroGLYCERIN (NITROSTAT) 0.4 mg SL tablet 08/25 nitroglycerin 100 mcg/mL syringe 08/25/2017 polyethylene glycol 3350 (MIRALAX) packet 1 2017 17 g ramelteon (ROZEREM) tablet 8 mg 1 08/25/2017 sodium chloride 0.9 % (NS) infusion 1 08/25/2017 ticagrelor (BRILINTA) 90 mg tablet 1 08/25/2017 verapamil (ISOPTIN) 2.5 mg/mL injection 1 08/26/19 18 Procedures Count Last Ordered Date First Ordered Date ECG REPORT - SCANNED 2 08/31/2017 08/30/2017 Diet Count Last Ordered Date First Ordered Date DISCHARGE DIET 4 08/25/2017 Nursing Count Last Ordered Date First Ordered Date ACTIVITY INSTRUCTIONS 2 08/25/2017 BATHING INSTRUCTIONS 2 08/25/2017 PATIENT AT LOW RISK FOR VTE: RISK OF 08/25/2017 MECHANICAL PROPHYLAXIS OUTWEIGHS PATIENT AT LOW RISK FOR VTE: RISK OF 08/25/2017 PHARMACOLOGIC PROPHYLAXIS OUTWEIG VTE PHARMACOLOGIC PROPHYLAXIS CURRENTLY 08/26/19 18 ORDERED OR ON ALTERNATIVE THER WOUND CARE INSTRUCTIONS 2 08/25/2017 HEIGHT AND WEIGHT 1 08/24/2017 Consult Count Last Ordered Date First Ordered Date CONSULT SMOKING CESSATION 2 08/25/2017 Admission Count Last Ordered Date First Ordered Date ED BED REQUEST 08/25/2017 STATUS: INPATIENT ACUTE ADMISSION 1 08/25/2017 Transfer Count Last Ordered Date First Ordered Date NOTIFY PPS OF DISCHARGE COMPLETE 1 08/26/2017 PPS NOTIFICATION OF PATIENT ARRIVAL ON 8 UNIT UR PATIENT STATUS CHANGE 1 08/25/2017 Discharge Count Last Ordered Date First Ordered Date DISCHARGE PATIENT 1 08/26/2017 Legal Count Last Ordered Date First Ordered Date MISCELLANEOUS DISCHARGE INSTRUCTIONS 6 08/25/2017 documented in this encounter Care Teams Diving Judge Relationship Specialty Start Date End Date Altaf Hoover MD PCP - General 11/12/15 04/12/20 documented as of this encounter
--- OUTSIDE RECORDS SUMMARY | 2021-12-17 01:06 | XMS_ITS | Encounter Summary ---
:1965 Author Organization [facility] Address [address] [place] [address] Care Team Providers Name Role Phone Unavailable Primary Care Provider Unavailable Encounter Details Date Type Department Care Team Description 02/12/2001 Hospital Encounter [facility] - Jp Scherer MD Other Unknown, Provider, [address], [place] [id number] Social History Tobacco Use Types Packs/Day Years Used Date Never Assessed Sex Assigned at Date Recorded Not on file documented as of this encounter Discharge Disposition Disposition Code Departure Means Destination Auto Discharge documented in this encounter Plan of Treatment Not on filedocumented as of this encounter Procedures Procedure Name Priority Date/Time Associated Diagnosis Comme nts HEMAGRAM & DIFF Routine 02/12/2001 16:37 Results for this EST procedure are i n the results section. DMARD PROFILE Routine 02/12/2001 16:37 Results fo r this EST procedure are i n the results section. HEPATITIS C AB W Routine 02/12/2001 16:37 Results for this REFLEX TO HCV RNA EST procedure are in BY PCR the results section. HEPATITIS B CORE Routine 02/12/2001 16:37 Results for this ANTIBODY (TOTAL) EST procedure a re in the results section. HEPATITIS B SURFACE Routine 02/12/2001 16:37 Resu lts for this ANTIBODY EST procedure are i n the results section. HEPATITIS B SURFACE Routine 02/12/2001 16:37 Resu lts for this ANTIGEN EST procedure are i n the results section. documented in this encounter Results DMARD PROFILE (02/12/2001 16:37 EST) Pathologist Sig nature Total Alkaline 53 38 - 126 U/L [facility] Phosphatase AST 9 8 - 50 U/L [facility] ALT 28 15 - 75 U/L [facility] Albumin 4.1 3.0 - 5.5 g/dl [facility] Creatinine 1.4 0.7 - 1.5 mg/dl [facility] Specimen Performing Organization Address [facility] Code Phon e Number [facility] [address] [place] [address] SERVICES [facility] [address] [place] [address] HEPATITIS C ANTIBODY (02/12/2001 16:37 EST) Pathologist Sig nature Hepatitis C Ab Neg [facility] Specimen Performing Organization Address [facility] Phon e Number [facility] [address] [place] [address] SERVICES [facility] [address] [place] [address] HEPATITIS B CORE ANTIBODY (02/12/2001 16:37 EST) Pathologist Sig nature Hep B Core Ab Neg [facility] Specimen Performing Organization Address [facility] Phon e Number [facility] [address] [place] [address] SERVICES [facility] [address] [place] [address] HEPATITIS B SURFACE ANTIGEN (02/12/2001 16:37 EST) Pathologist Sig nature Hepatitis B Surface Ag Neg [facility] Specimen Performing Organization Address [facility] Code Phon e Number [facility] [address] [place] [address] SERVICES [facility] [address] [place] [address] HEPATITIS B SURFACE ANTIBODY (02/12/2001 16:37 EST) Pathologist Sig nature Hepatitis B Surface Ab Neg [facility] Specimen Performing Organization Address [facility] Phon e Number [facility] [address] [place] [address] SERVICES [facility] [address] [place] [address] (ABNORMAL) HEMAGRAM & DIFF (02/12/2001 16:37 EST) Pathologist Sig nature WBC 13.43 (H) 4.0 - 10.4 K/cmm [facility] RBC 5.58 4.36 - 5.78 M/cmm [facility] Hemoglobin 17.1 13.8 - 17.3 gm/dl [facility] HCT 49.7 39.5 - 50.2 % [facility] MCV 89 81 - 95 fl [facility] MCH 30.7 27.6 - 33.0 pg [facility] MCHC 34.5 32.8 - 36.4 gm/dl [facility] PLT 254 141 - 320 K/cmm [facility] RDW-CV 13.4 11.8 - 14.1 % [facility] Neutrophils 82 (H) 45.5 - 79.7 % [facility] Lymphocytes 6 (L) 15.0 - 46.8 % [facility] Atyp Lymphs 9 % [facility] Monocytes 3 1.8 - 12.0 % [facility] ABS Neutrophils 11.01 (H) 2.20 - 8.85 K/cmm [facility] ABS Lymphs 0.81 (L) 1.09 - 3.30 K/cmm [facility] ABS Atyp Lymphs 1.21 K/cmm [facility] ABS Monocytes 0.40 0.1 - 0.8 K/cmm [facility] RBC Morphology Normal [facility] Type of Diff: Manual [facility] Specimen Performing Organization Address City/State/ZIP Code Phon e Number [facility] [address] [place] [phone] SERVICES [facility] [address] [place] [phone] documented in this encounter Visit Diagnoses Not on filedocumented in this encounter
--- OUTSIDE RECORDS SUMMARY | 2021-12-17 01:06 | XMS_ITS | Encounter Summary ---
:1965 Author Organization [facility] Address [address] [place] [address] Care Team Providers Name Role Phone Derrick Melara MD Primary Care Provider Encounter Details Date Type Department Care Team Description 02/18/2014 Results Only [facility] Mendoza Beatty , Laboratory Services - [address] GONZALES FRAZIER [address] [place] [address] [place], [place] [address] [phone] Social History Tobacco Use Types Packs/Day Years Used Date Never Assessed Sex Assigned at Date Recorded Not on file documented as of this encounter Plan of Treatment Not on filedocumented as of this encounter Procedures Procedure Name Priority Date/Time Associated Diagnosis Comme [facility] SURGICAL PATHOLOGY Routine 02/18/2014 9:03 EST Re sults for this procedure are i n the results section. documented in this encounter Results SURGICAL PATHOLOGY (02/18/2014 9:03 EST) Pathology Report: SURGICAL PATHOLOGY REPORT [facility] Reports generated via electronic interface contain amanda ginal data; LABORATORY however they are lacking the format of the original re port. SERVICES Caution should be taken when reading/interpreting unfo rmatted reports. Name: ? SAMY PATRICIO ? Accession #: ? [id number] ? : ? 1965 (Age: 48) ??M ? Collect Date: ? 02/18/2014 ? Location: ? [facility] ? Receive Date: ? 014 ? Provider: MENDOZA BEATTY DO Copy to: SNEHAL MARAVILLA MD ? Final Pathologic Diagnosis: A. COLON, TRANSVERSE, POLYP, BIOPSY: - Tubular adenoma. B. COLON, DESCENDING, POLYP, BIOPSY: - Tubular adenoma. C. COLON, PROXIMAL SIGMOID, POLYP, BIOPSY: - Hyperplastic polyp. D. COLON, MID SIGMOID, POLYP, BIOPSY: - Hyperplastic polyp. E. SIGMOID, BIOPSY: - Colonic mucosa with hemosiderin deposition and hyperplastic surface change. F. COLON, DISTAL SIGMOID, POLYP, BIOPSY: - Hyperplastic polyp with mucosal prolap se changes and hemosiderin deposition. G. RECTUM, MID, POLYP, BIOPSY: - Hyperplastic polyp with mucosal prolapse change. H. RECTUM, DISTAL, POLYP, BIOPSY: - Hyperplastic polyp with mucosal prolapse change. I. ANTRUM, BIOPSY: - Gastric mucosa with no specific pathologic features. J. ESOPHAGUS, DISTAL, BIOPSY: - Squamocolumnar junctional mucosa with focal intestin al metaplasia. ??- Negative for dysplasia. - Gastric fundic and cardiac-type mucosa with mild, re active changes. K. ESOPHAGUS, MID, BIOPSY: - Squamous mucosa with no specific pathologic features . Document reviewed and electronically signed by: ELEN CABALLERO MD Report ??Date: 02/27/2014 11:30 By the signature above, the attending physician certif ies that he/she has personally conducted a gross and/or microscopic examin ation of the described specimens and rendered or confirmed the above diagnosi s. Specimen(s) Received: A. ??Transverse colon polyp B. ??Descending colon polyp C. ??Proximal sigmoid colon polyp D. ??Mid sigmoid colon polyp E. ??Sigmoid bx F. ??Distal sigmoid polyp G. ??Mid rectal polyp H. ??Distal rectal polyp I. ?? Antrum bx J. ??Distal esophagus bx K. ??Mid esophagus bx Clinical History: Blood in stool; change in BM; epigastric pain Gross Description: A. ?Received in formalin labelled with proper p atient identification (initials S, P) and polyp transverse colon is a sing le pink-figueroa tissue fragment (0.2 x 0.2 x 0.1 cm). Submitted intact in blo ck A1. B. ?Received in formalin labelled with proper p atient identification (initials S, P) and descending colon polyp is a sing le pink-figueroa polypoid tissue (0.6 x 0.3 x 0.3 cm). The margin is inked black . ??The specimen is trisected and entirely submitted in block B1. C. ?Received in formalin labelled with proper p atient identification (initials S, P) and proximal sigmoid polyp is a sing le pink-figueroa tissue fragment (0.4 x 0.2 x 0.2 cm). Submitted intact in blo ck C1. D. ?Received in formalin labelled with proper p atient identification (initials S, P) and mid sigmoid colon p olyp are two light figueroa tissues (0.4 x 0.2 x 0.1 cm and 0.5 x 0.3 x 0.3 cm). Entirely submitt ed in block D1. E. ?Received in formalin labelled with proper p atient identification (initials S, P) and sigmoid biopsy are three l ight figueroa tissues (0.2 x 0.2 x 0.1 cm to 0.4 x 0.3 x 0.2 cm). Entirely submitted in b lock E1. F. ?Received in formalin labelled with proper p atient identification (initials S, P) and distal sigmoid polyp are two pin k-figueroa polypoid tissues (0.4 x 0.3 x 0.2 cm and 0.8 x 0.3 x 0.3 cm). The margins are inked black. ??The smaller piece is bisected and entirely submitted in bl ock F1 and the larger piece is trisected and entirely submitted in block F2. G. ?Received in formalin labelled with proper p atient identification (initials S, P) and mid rectal polyp is a single, ta n-pink polypoid tissue (0.8 x 0.4 x 0.3 cm). The ma rgin is inked black. ??The specimen is bisected and entirely submitted in block G1. H. ?Received in formalin labelled with proper p atient identification (initials S, P) and distal rectal polyp is a single pink-figueroa polypoid tissue (0.7 x 0.3 x 0.3 cm). The ma rgin is inked black. ??The specimen is trisected and entirely submitted in block H1. I. ?Received in formalin labelled with proper p atient identification (initials S, P) and antrum biopsy are two pink-figueroa tissues (0.3 x 0.3 x 0.3 cm and 0.5 x 0.3 x 0.2 cm). Entirely submitted in block I 1. J. ?Received in formalin labelled with proper p atient identification (initials S, P) and distal esophagus biopsy are four light figueroa tissues (0.2 x 0.2 x 0.1 cm to 0.4 x 0.3 x 0.2 cm). Entirely submitte d in blocks J1 and J2. K. ?Received in formalin labelled with proper p atient identification (initials S, P) and mid eso phagus biopsy are two light figueroa tissues (0.3 x 0.2 x 0.1 cm and 0.5 x 0.2 x 0.1 cm). Entirely submitted i n block K1. Ifeoma King 02/19/2014 11:51 AM End of Report Specimen Performing Organization Address City/State/ZIP Code Phon e Number [facility] [address] [place] [address] SERVICES documented in this encounter Visit Diagnoses Not on filedocumented in this encounter Care Teams Reed Or Wind Instrument Tuner Relationship Specialty Start Date End Date Derrick Melara MD PCP - General 09/26/12 11/11/15 [address] [facility] [id number] documented as of this encounter
--- OUTSIDE RECORDS SUMMARY | 2021-12-17 01:06 | XMS_ITS | Encounter Summary ---
:1965 Author Organization [facility] Address [address] [place] [address] Care Team Providers Name Role Phone Unavailable Primary Care Provider Unavailable Encounter Details Date Type Department Care Team Description 10/24/2000 Hospital Encounter [facility] - Enrique Crain MD [address] [id number] Other Unknown, Provider, [address] [place] [address] Social History Tobacco Use Types Packs/Day Years Used Date Never Assessed Sex Assigned at Date Recorded Not on file documented as of this encounter Discharge Disposition Disposition Code Departure Means Destination Auto Discharge documented in this encounter Plan of Treatment Not on filedocumented as of this encounter Procedures Procedure Name Priority Date/Time Associated Comments Diagnosis CHEST PA AND LATERAL Routine 11/16/2000 16:22 Res ults for this EDT procedure are i n the results section. HEMAGRAM & DIFF Routine 10/24/2000 16:25 Results for this EDT procedure are i n the results section. SYPHILIS IGG AB WITH Routine 10/24/2000 16:25 Res ults for this REFLEX, SERUM EDT procedure are in the results section. SED RATE Routine 10/24/2000 16:25 Results for this EDT procedure are i n the results section. SYPHILIS SERO (RPR) Routine 10/24/2000 16:25 Resu lts for this EDT procedure are i n the results section. ANGIOTENSIN Routine 10/24/2000 16:25 Results for this CONVERTING ENZYME EDT procedure are in (CHRIS) the results section. ANTI NUCLEAR AB Routine 10/24/2000 16:25 Results for this (KANDI), IFA EDT procedure are i n the results section. documented in this encounter Results CHEST PA AND LATERAL (11/16/2000 16:22 EDT) Anatomical Region Laterality Modality Other Specimen Narrative [facility] - 01/30/2009 1: 39 EST TRANSIENT VISUAL LOSS WITH VISUAL FIELD DEFECT, INCREASED AGE R/O GRANULOMATOUS PROCESS PA AND LATERAL CHEST 11/16/2000 16:22 FINDINGS: There are no bony or soft tiss ue abnormalities. The heart and mediastinal silhouette is normal in size. There is a diffuse interstitial reticular pattern in the arturo ngs. Both autumn show unusual prominence and possible nodularity sugge stive of lymphadenopathy. These findings are consistent with sarco id. IMPRESSION: Sarcoidosis, which should be confirmed with high-resolution CT. /[facility] Addendum: The ICD9/diagnostic code has been change d from 368.12 to 135. for physician billing. The text has not been altered. Procedure Note Armaan Torrez MD / Abel Hallman MD - 01/30/2009 TRANSIENT VISUAL LOSS WITH VISUAL FIELD DEFECT, INCREASED AGE R/O GRANULOMATOUS PROCESS PA AND LATERAL CHEST 11/16/2000 16:22 FINDINGS: There are no bony or soft tiss ue abnormalities. The heart and mediastinal silhouette is normal in size. There is a diffuse interstitial reticular pattern in the arturo ngs. Both autumn show unusual prominence and possible nodularity sugge stive of lymphadenopathy. These findings are consistent with sarco id. IMPRESSION: Sarcoidosis, which should be confirmed with high-resolution CT. /[facility] Addendum: The ICD9/diagnostic code has been change d from 368.12 to 135. for physician billing. The text has not been altered. Performing Organization Address City/State/ZIP Code Phon e Number [facility] [address] [facility] [address] [facility] [address] [place], [place] [address] SED. RATE:BEBA (10/24/2000 16:25 EDT) Pathologist [facility] Sed. Rate Westergren 15 0 - 15 mm/hr [facility] Specimen Performing Organization Address City/State/ZIP Code Phon e Number [facility] [address] [place] [address] SERVICES [facility] [address] [place] [address] SYPHILIS SERO (RPR) (10/24/2000 16:25 EDT) Pathologist Sig nature Syphilis Sero (RPR) NONREACT. NR Dils [facility] Specimen Performing Organization Address City/[facility]/ZIP [place] Phon e Number [facility] [address] [place] [address] SERVICES [facility] [address] [place] [address] SYPHILIS AB IGG, IGM (10/24/2000 16:25 EDT) Pathologist Sig nature RPR SL NONREACT. [facility] FTA NONREACT. [facility] Assayed by [facility], [place], [place] Specimen Performing Organization Address City/[facility]/ZIP Code Phon e Number [facility] [address] [place] [address] SERVICES [facility] [address] [place] [address] (ABNORMAL) HEMAGRAM & DIFF (10/24/2000 16:25 EDT) Pathologist Sig nature WBC 11.75 (H) 4.0 - 10.4 K/cmm [facility] RBC 5.41 4.36 - 5.78 M/cmm [facility] Hemoglobin 16.5 13.8 - 17.3 gm/dl [facility] HCT 47.2 39.5 - 50.2 % [facility] MCV 87 81 - 95 fl [facility] MCH 30.5 27.6 - 33.0 pg [facility] MCHC 35.0 32.8 - 36.4 gm/dl [facility] PLT 269 141 - 320 K/cmm [facility] RDW-CV 12.4 11.8 - 14.1 % [facility] Neutrophils 65.9 45.5 - 79.7 % [facility] Lymphocytes 26.4 15.0 - 46.8 % [facility] Monocytes 5.5 1.8 - 12.0 % [facility] Eosinophils 1.9 0.6 - 6.9 % [facility] Basophils 0.3 0.2 - 1.4 % [facility] ABS Neutrophils 7.75 2.20 - 8.85 K/cmm [facility] ABS Lymphs 3.10 1.09 - 3.30 K/cmm [facility] ABS Monocytes 0.64 0.1 - 0.8 K/cmm [facility] ABS Eosinophils 0.22 0.03 - 0.61 K/cmm [facility] ABS Basophils 0.04 0.01 - 0.11 K/cmm [facility] Type of Diff: Automated [facility] Specimen Performing Organization Address City/State/ZIP Code Phon e Number [facility] [address] [place] [address] SERVICES [facility] [address] [place] [address] (ABNORMAL) ANGIOTENSIN CONVERTING ENZYME (CHRIS) (10/24/2000 16:25 EDT) Angiotensin 57Unit: U/L ??(Note) [facility] Converting Enzyme -- EXPECTED VALUES -- ? LAB (Ref Range) 7 to 46 ? The use of CHRIS-inhibiting an ti-hypertensive drugs will cause ? decreased angiotensin conver ting enzyme values. ? TEST PERFORMED OR REFERRED B Y MML ? MML ? [address] ? [place], [place] ??[address] ? (H) Specimen Performing Organization Address City/State/ZIP Code Phon e Number [facility] [address] [place] [address] SERVICES [facility] [address] [place] [address] ANTI NUCLEAR ANTIBODY (10/24/2000 16:25 EDT) Pathologist Sig nature Anti Nuclear Ab <40 0 - 40 Dils [facility] Specimen Performing Organization Address City/State/ZIP Code Phon e Number [facility] [address] [place] [address] SERVICES [facility] [address] [place] [address] documented in this encounter Visit Diagnoses Not on filedocumented in this encounter
--- OUTSIDE RECORDS SUMMARY | 2021-12-17 01:06 | XMS_ITS | Encounter Summary ---
:1965 Author Organization [facility] Address [address] [place] [address] Care Team Providers Name Role Phone Sae Marr MD Primary Care Provider Encounter Details Date Type Department Care Team Description 10/28/2021 Lab Requisition [facility] Outr Resulting Lab, Pathology & Laboratory Provider [facility] [address] [place] [address] Social History Tobacco Use Types Packs/Day [...] Procedure Name Priority Date/Time Associated Comments Diagnosis SPEP, INCLUDES Today 10/28/2021 8:20 Results fo r this QUANTITATION OF EDT procedure ar e in MONOCLONAL SPIKE the results PERFORMABLE section. SPEP, INCLUDES Routine 10/28/2021 8:20 Results fo r this QUANTITATION OF EDT procedure ar e in MONOCLONAL SPIKE the results section. PROTEIN, TOTAL Today 10/28/2021 8:20 EDT documented in this encounter Results (ABNORMAL) SPEP, INCLUDES QUANTITATION OF MONOCLONAL SPIKE PERFORMABLE (10/28/2021 8:20 EDT) Albumin % 55.4 (L) 55.8 - 66.1 % [facility] Albumin g/dL 3.7 3.6 - 5.2 g/dL [facility] SERVICES Alpha-1 % 4.6 2.9 - 4.9 % [facility] SERVICES Alpha-1 g/dL 0.30 0.15 - 0.40 [facility] g/dL LABORATORY SERVICES Alpha-2 % 13.8 (H) 7.1 - 11.8 % [facility] SERVICES Alpha-2 g/dL 0.90 0.50 - 1.00 [facility] g/dL LABORATORY SERVICES Beta % 14.7 (H) 8.4 - 13.1 % [facility] SERVICES Beta g/dL 1.00 0.60 - 1.20 [facility] g/dL LABORATORY SERVICES Gamma % 11.5 11.1 - 18.8 % [facility] SERVICES Gamma g/dL 0.80 0.60 - 1.60 [facility] g/dL LABORATORY SERVICES SPEP Comment No apparent [facility] monoclonal protein LABORATORY SERVICES seen on serum electrophoresisComm ent: See scanned/supplementa ry report. Total Protein 6.6 6.3 - 8.2 g/dL [facility] SERVICES Specimen Blood - Venous blood (substance) Narrative This result has an attachment that is no t available. Performing Organization Address City/State/ZIP Code Phon e Number [facility] [address] [place] [address] SERVICES PROTEIN, TOTAL (10/28/2021 8:20 EDT) Specimen Blood - Venous blood (substance) Performing Organization Address City/State/ZIP Code Phon e Number [facility] [address] [place] [address] SERVICES documented in this encounter Visit Diagnoses Not on filedocumented in this encounter Care Teams Engine Hostler Relationship Specialty Start Date End Date Sae Marr MD PCP - General Family Medicine - Primary 04/13/20 Care documented as of this encounter
--- OUTSIDE RECORDS SUMMARY | 2021-12-17 01:06 | XMS_ITS | Encounter Summary ---
:1965 Author Organization [facility] Address [address] [place] [address] Care Team Providers Name Role Phone Sae aMrr MD Primary Care Provider Encounter Details Date Type Department Care Team Description 07/03/2020 Lab Requisition [facility] Outr Resulting Lab, Pathology & Laboratory Provider [facility] [address] [place] [address] Social History Tobacco Use Types [...] Procedure Name Priority Date/Time Associated Comments Diagnosis PSA TOTAL, Routine 07/03/2020 7:56 EDT Results for this DIAGNOSTIC procedure are i n the results section. documented in this encounter Results PSA TOTAL, DIAGNOSTIC (07/03/2020 7:56 EDT) Pathologist Sig nature PSA 0.4 0.0 - 3.5 ng/mL [facility] SERVICES Specimen Blood - Venous blood (substance) Narrative [facility] SERVICES - 07/03/2020 17:17 EDT NOTE: Serum PSA concentration should not be in terpreted as absolute evidence for the presence or absence of malignant disease. Assayed on [employer] XPT usi ng chemiluminescent technology.??Values obtained by using different assay methods cannot be used interchangeably. Performing Organization Address City/State/ZIP Code Phon e Number [facility] [address] [place] [address] SERVICES documented in this encounter Visit Diagnoses Not on filedocumented in this encounter Care Teams Qa Test Analyst Relationship Specialty Start Date End Date Sae Marr MD PCP - General Family Medicine - Primary 04/13/20 Care documented as of this encounter
--- OUTSIDE RECORDS SUMMARY | 2021-12-17 01:06 | XMS_ITS | Encounter Summary ---
:1965 Author Organization [facility] Address [address] [place] [address] Care Team Providers Name Role Phone Sae Marr MD Primary Care Provider Encounter Details Date Type Department Care Team Description 04/13/2020 Lab Requisition [facility] Scotty Calderon for other Pathology & MD Gale general examination Laboratory Medicine [address] [place], [place] [address] [facility] [address] [place], [place] [address] Social History Tobacco Use Types Packs/Day Years [...] Date/Time Associated Diagnosis Comme nts SURGICAL PATHOLOGY Today 04/13/2020 13:17 Encounter for othe r Results for this EST general examination procedur e are in the results section. documented in this encounter Results SURGICAL PATHOLOGY (04/13/2020 13:17 EST) Final Diagnosis A. GASTROESOPHAGEAL JUNCTION, BIOPSY: [facility] - Mild chronic inflammation of squamocolumnar mucosa. CENTER - Mild to moderate parietal cell hyperplasia. LABORATORY - Negative for intestinal metaplasia and dysplasia. SERVICES B. RECTUM, POLYPS X11, BIOPSY: - Hyperplastic polyps. C. COLON, SIGMOID, POLYPS X6, BIOPSY: - Hyperplastic polyps. D. COLON, CECUM, POLYP, BIOPSY: - Tubular adenoma. E. COLON, ASCENDING, POLYPS X2, BIOPSY: - Tubular adenomas. F. COLON, TRANSVERSE, POLYPS X4, BIOPSY: - Tubular adenomas. - Consistent with sessile serrated adenoma(s). G. COLON, DESCENDING, POLYPS X2, BIOPSY: - Hyperplastic polyps. Attestation By the signature [facility] Electronica lly below, the attending CENTER signed by Nabor Rangel, physician certifies LABORATORY Sb Nelson MD on that they have 1) SERVICES 04/15/2020 a t 1156 personally conducted a gross and/or microscopic examination of the described specimen(s), and/or personally interpreted the results of laboratory testing of the described specimen(s), and 2) personally rendered or confirmed the above diagnosis. Clinical History Bloating, GERD, h/o [facility] Diaz's, abdominal CENTER pain LABORATORY SERVICES Gross Description A. [facility] Received in formalin greg d with proper patient identification (initials S, P) and Bx GE junction are two figueroa focally brown tissues (0.5 x 0.3 x 0.2 cm and 0.4 x 0.3 x 0.2 cm). Entirely submitted in A1. CENTER LABORATORY B. SERVICES Received in formalin greg d with proper patient identification (initials S, P) and Rectal polyps x11 are thirteen pale-figueroa tissues (0.5 x 0.2 x 0.1 cm to 0.2 x 0.1 x 0.1 cm). Entirely submitted in B1-B3. C. Received in formalin greg d with proper patient identification (initials S, P) and sigmoid polyps x6 are six figueroa-brown tissues (0.4 x 0.2 x 0.2 cm to 0.2 x 0.2 x 0.1 cm). Entirely submitted in C1-C2. D. Received in formalin greg d with proper patient identification (initials S, P) and cecal polyp are three figueroa tissues (0.4 x 0.2 x 0.1 cm to 0.2 x 0.2 x 0.2 cm). Entirely submitted in D1. E. Received in formalin greg d with proper patient identification (initials S, P) and ascending colon polyps x2 are five figueroa-yellow tissues (0.4 x 0.2 x 0.2 cm to 0.2 x 0.2 x 0.1 cm). Entirely submitted in E1. F. Received in formalin greg d with proper patient identification (initials S, P) and transverse colon polyps x4 are six figueroa-brown tissues (0.6 x 0.4 x 0.2 cm to 0.3 x 0.2 x 0.2 cm). Entirely submitted in F1-F2. G. Received in formalin greg d with proper patient identification (initials S, P) and descending colon polyps x2 are six figueroa-brown tissues (0.0 x 0.5 x 0.4 cm to 0.3 x 0.2 x 0.2 cm). The largest tissue is bisected and submitted i n G1, and the remaining tissues are submitted intact in G2-G3. Darryn Up 04/14/2020 9:06 Performing Lab [facility] Scanned Images [facility] Specimen Tissue - Descending colon structure (bod y structure) Tissue specimen (specimen) - Specimen fr om rectum (specimen) Tissue specimen (specimen) - Entire sigm oid colon (body structure) Tissue specimen (specimen) - Cecum struc ture (body structure) Tissue specimen (specimen) - Ascending c olon structure (body structure) Tissue specimen (specimen) - Entire borden sverse colon (body structure) Tissue specimen (specimen) - Descending colon structure (body structure) Performing Organization Address City/State/ZIP Code Phon e Number [facility] [address] [place] [address] SERVICES documented in this encounter Visit Diagnoses Diagnosis Encounter for other general examination documented in this encounter Care Teams Sand Bobber Relationship Specialty Start Date End Date Sae Marr MD PCP - General Family Medicine - Primary 04/13/20 Care documented as of this encounter
--- OUTSIDE RECORDS SUMMARY | 2021-12-17 01:06 | XMS_ITS | Encounter Summary ---
:1965 Author Organization [facility] Address [address] [place] [address] Care Team Providers Name Role Phone Sae Marr MD Primary Care Provider Encounter Details Date Type Department Care Team Description 05/13/2020 Lab Requisition [facility] Outr Resulting Lab, Pathology & Laboratory Provider [facility] [address] [place] [address] Social History Tobacco Use Types [...] Name Priority Date/Time Associated Diagnosis Comme nts CELIAC DISEASE Routine 05/13/2020 8:20 EST Result s for this PANEL procedure are i n the results section. documented in this encounter Results CELIAC DISEASE PANEL (05/13/2020 8:20 EST) Tissue <1.2 <4.0 U/mL [facility] Transglutaminase Comment: CENTER Antibody IGA A negative result may be due to IgA deficiency and does not rule out celiac disease. LABORATORY SERVICES ? Negative: ??<4.0 U/mL ? Weak Positive: ??4.0 - 10.0 U/mL ? Positive: ??>10.0 U/mL Results were obtained with [employer] R h-tTG IgA JAMAL assay on the [employer] DSX. IgA 214 85 - 499 [facility] mg/dL [facility] SERVICES Celiac Disease Negative Serology. [facility] Interpretation Celiac disease CENTER unlikely. LABORATORY Approximately 10% of SERVICES patients with celiac disease are seronegative. Patients who are already adhering to a gluten-free diet may also be seronegative. If celiac disease is highly clinically suspected, referral to gastroenterology for additional evaluation is recommended. Specimen Blood - Venous blood (substance) Performing Organization Address City/State/ZIP Code Phon e Number [facility] [address] [place] [address] SERVICES documented in this encounter Visit Diagnoses Not on filedocumented in this encounter Care Teams Vegetable Farming Supervisor Relationship Specialty Start Date End Date Sae Marr MD PCP - General Family Medicine - Primary 04/13/20 Care documented as of this encounter
--- OUTSIDE RECORDS SUMMARY | 2021-12-17 01:06 | XMS_ITS | Encounter Summary ---
:1965 Author Organization [facility] Address [address] [place] [address] Care Team Providers Name Role Phone Unavailable Primary Care Provider Unavailable Encounter Details Date Type Department Care Team Description 11/16/2000 Hospital Encounter [facility] - Yocasta Poon MD [facility] [address] [facility] [address] [place] [address] [place], [place] [phone] (Wo rk) Social History Tobacco Use Types Packs/Day Years Used Date Never Assessed Sex Assigned at Date Recorded Not on file documented as of this encounter Discharge Disposition Disposition Code Departure Means Destination Auto Discharge documented in this encounter Plan of Treatment Not on filedocumented as of this encounter Procedures Procedure Name Priority Date/Time Associated Diagnosis Comme nts MR HEAD W/WO Routine 11/16/2000 21:45 Results for this CONTRAST EDT procedure are i n the results section. documented in this encounter Results MR HEAD W/WO CONTRAST (11/16/2000 21:45 EDT) Anatomical Region Laterality Modality Other Specimen Narrative [facility] - 01/30/2009 2: 45 EST TRANSIENT VISUAL LOSS,VISULA FIELD DEFECT R/O DEMYELINATING PROCESS VS MASS MRI OF THE BRAIN WITH AND WITHOUT CONTRA ST 11/16/2000 21:45 CLINICAL INFORMATION: Transient visual l oss and visual field defect. Rule out demyelinating process. TECHNICAL FACTORS: Multi-planar T1 and T 2 weighted fast-spin echo, gradient-echo, and echo-planar diffusion -weighted images before and after contrast administration. FINDINGS: 1. The fast FLAIR sequence is normal. 2. Normal basilar flow-voids, 7th and 8t h nerve complex, 5th nerves bilaterally and midline structures with brain including craniocervical junction and the visualized upper cervic al spine. 3. Following contrast, no abnormal enhan cement is identified. OVERALL IMPRESSION: Normal MRI of the br ain with and without contrast. /cordell Procedure Note BrafLuc pleitez MD - 01/30/2009 TRANSIENT VISUAL LOSS,VISULA FIELD DEFEC T R/O DEMYELINATING PROCESS VS MASS MRI OF THE BRAIN WITH AND WITHOUT CONTRA ST 11/16/2000 21:45 CLINICAL INFORMATION: Transient visual l oss and visual field defect. Rule out demyelinating process. TECHNICAL FACTORS: Multi-planar T1 and T 2 weighted fast-spin echo, gradient-echo, and echo-planar diffusion -weighted images before and after contrast administration. FINDINGS: 1. The fast FLAIR sequence is normal. 2. Normal basilar flow-voids, 7th and 8t h nerve complex, 5th nerves bilaterally and midline structures with brain including craniocervical junction and the visualized upper cervic al spine. 3. Following contrast, no abnormal enhan cement is identified. OVERALL IMPRESSION: Normal MRI of the br ain with and without contrast. /cordell Performing Organization Address City/State/ZIP Code Phon e Number [facility] [address] [facility] [address] [facility] [address] [place], [place] [address] documented in this encounter Visit Diagnoses Not on filedocumented in this encounter
--- OUTSIDE RECORDS SUMMARY | 2021-12-17 01:06 | XMS_ITS | Encounter Summary ---
:1965 Author Organization [facility] Address [address] [place] [address] Care Team Providers Name Role Phone Derrick Melara MD Primary Care Provider Encounter Details Date Type Department Care Team Description 09/25/2012 Results Only [facility] , Laboratory Services - [address] [place] [address] [place], [place] [address] [phone] Social History Tobacco Use Types Packs/Day Years Used Date Never Assessed Sex Assigned at Date Recorded Not on file documented as of this encounter Plan of Treatment Not on filedocumented as of this encounter Procedures Procedure Name Priority Date/Time Associated Diagnosis Comme [facility] SURGICAL PATHOLOGY Routine 09/25/2012 8:39 EDT Re sults for this procedure are i n the results section. documented in this encounter Results SURGICAL PATHOLOGY (09/25/2012 8:39 EDT) Pathology Report: SURGICAL PATHOLOGY REPORT [facility] Reports generated via electronic interface contain amanda ginal data; LAB however they are lacking the format of the original re port. Caution should be taken when reading/interpreting unfo rmatted reports. Name: ? SAMY PATRICIO ? Accession #: ? [id number] ? : ? 1965 (Age: 46) ??M ? Collect Date: ? 09/25/2012 ? Location: ? [facility] ? Receive Date: ? 013 ? Provider: MENDOZA BEATTY DO Copy to: SNEHAL MARAVILLA MD ? Final Pathologic Diagnosis: A. GASTRIC ANTRUM, BIOPSIES: - ??Antral mucosa with mild chronic gastritis. - ??No Helicobacter pylori-like organisms identified o n H&E stains. B. 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 - ??Chronic inflammation and reactive epithelial ku es. - ??No dysplasia identified. C. ESOPHAGUS, MID, BIOPSIES: - ??Squamous mucosa with mild reactive epithelial merlos ges. D. ESOPHAGUS, PROXIMAL, BIOPSIES: - ??Squamous mucosa with mild reactive epithelial merlos ges. Document reviewed and electronically signed by: CHERELLE WAYNE MD Report ??Date: 09/27/2012 18:56 By the signature above, the attending physician certif ies that he/she has personally conducted a gross and/or microscopic examin ation of the described specimens and rendered or confirmed the above diagnosi s. Specimen(s) Received: A. ??Gastric antrum B. ??Distal esophagus C. ??Mid esophagus D. ??Proximal esophagus Clinical History: H/O Diaz's esophagus; LUQ pain Gross Description: A. ?Received in formalin labelled with proper p atient identification (initials S, P) and gastric antrum are two pink-figueroa tissues (0.3 x 0.2 x 0.2 cm and 0.5 x 0.2 x 0.1 cm). Entirely submitted in A1. B. ?Received in formalin labelled with proper p atient identification (initials S, P) and distal esophagus are four pink-figueroa tissues (0.3 x 0.2 x 0.2 cm to 0.6 x 0.2 x 0.1 cm). Entirely submitted in B 1 and B2. C. ?Received in formalin labelled with proper p atient identification (initials S, P) and mid esophagus are two figueroa-white tissues (0.4 x 0.2 x 0.1 cm and 0.5 x 0.2 x 0.1 cm). Entirely submitted in C1. D. ?Received in formalin labelled with proper p atient identification (initials S, P) and proxima l esophagus are two figueroa-white tissues (0.4 x 0.2 x 0.1 cm and 0.4 x 0.3 x 0.1 cm). Entirely submitted in D1. LJenn Ramirez 09/26/2012 09:53 AM End of Report Specimen Performing Organization Address City/State/ZIP Code Phon e Number [facility] [address] [place] [address] SERVICES [facility] [address] [place] [address] documented in this encounter Visit Diagnoses Not on filedocumented in this encounter Care Teams Supervisor Sewing Room Relationship Specialty Start Date End Date Derrick Melara MD PCP - General 09/26/12 11/11/[address] [place] [address] documented as of this encounter
--- OUTSIDE RECORDS SUMMARY | 2021-12-17 01:06 | XMS_ITS | Encounter Summary ---
:1965 Author Organization [facility] Address [address] [place] [address] Care Team Providers Name Role Phone Altaf Hoover MD Primary Care Provider Unavailable Reason for Visit Reason Onset Date Comments Chest Pain 01/24/2019 Encounter Details Date Type Department Care Team Description 01/24/2019 Telephone [facility] Rosanne Trinidad RN [facility] [address] [place] [address] [place], [place] [address] (Wo rk) Social History Tobacco Use Types [...] or older) documented as of this encounter Ordered Prescriptions Prescription Sig Dispensed Refills Start Date End Date isosorbide mononitrate Take 2 Tabs by mouth 180 Tab 2 (IMDUR) 120 mg CR tablet daily. documented in this encounter Miscellaneous Notes Telephone Encounter - Rosanne Trinidad RN - 01/25/2019 1559 EST Spoke with patient, he agrees to double imdur per . He is instructed to call the office ifsymptoms do not improve or develops side effects or problems with med increase. Escript sent to [facility] elephone Encounter - Rosanne Trinidad RN - 01/24/2019 1707 EST Patient is currently taking Imdur 120mg, what dose should he be taking? elephone Encounter - Rosanne Trinidad RN - 01/24/2019 1418 EST Patient called to report that he saw his PCP Monday and they are concerned about his chest pain. Patient has back surgery scheduled but feels at this time it may be canceled. He states his A1C jumped up to 11.6. He also reported to his PCP that he is having more chest pain. He states it is the same chest pain he has had on and off for months but more recently it is occurring more. It is relived with nitro X 1.He is wondering if he should see you prior to his upcoming appt 02/18/19 documented in this encounter Plan of Treatment Not on filedocumented as of this encounter Visit Diagnoses Diagnosis NSTEMI (non-ST elevated myocardial infar ction) ([facility]) ([facility]) - Primary Acute myocardial infarction, subendocard ial infarction, episode of care unspecified documented in this encounter Discontinued Medications Medication Sig Discontinue Reason Start Date End Date metoprolol XL (TOPROL-XL) Take 1 Tab by mouth Duplicate order 08/2601/24/2019 25 mg tablet daily. omeprazole (PRILOSEC) 20 Take 40 mg by mouth Duplicate order 01/24/2019 mg capsule daily. isosorbide mononitrate 1 tab(s) orally (IMDUR) 120 mg CR tablet once a day (in the morning) documented as of this encounter Historical Medications This list may reflect changes made after this encounter. Medication Sig Dispensed Refills Start Date End Date metoprolol XL 1 tab(s) orally once a 0 (TOPROL-XL) 25 mg day tablet pantoprazole (PROTONIX) 1 tab(s) orally once a 0 40 mg tablet day nitroGLYCERIN 1 tab(s) sublingually 0 (NITROSTAT) 0.4 mg SL every 5 minutes tablet albuterol (PROAIR HFA) 2 puff(s) inhaled 4 0 02/13/2019 90 mcg/actuation times a day inhaler isosorbide mononitrate 1 tab(s) orally once a 0 01/25/2019 (IMDUR) 120 mg CR day (in the morning) tablet added in this encounter Care Teams Supervisor Residential Relationship Specialty Start Date End Date Altaf Hoover MD PCP - General 11/12/15 04/12/20 documented as of this encounter
--- OUTSIDE RECORDS SUMMARY | 2021-12-17 01:06 | XMS_ITS | Encounter Summary ---
:1965 Author Organization [facility] Address [address] [place] [address] Care Team Providers Name Role Phone Altaf Hoover MD Primary Care Provider Unavailable Reason for Visit Reason Comments Follow-up Coronary Artery Disease Encounter Details Date Type Department Care Team Description 04/12/2019 Office Visit [facility] - Jg Stubbs Aty pical angina ([facility]) (Primary Dx); [facility] ic Pre-op evaluation; [address] H/O non-ST elevation myocardial infarcti on (NSTEMI); [place] [address] [address] H/O heart artery stent; [phone] [place], [place] Type 2 diabetes mellitus without complication, without long-term current use of insulin ([facility]); [address] Smoker; [phone] FH: premature c oronary heart disease; (Work) CARLOTA (obstructive sleep apnea); [phone] PUD (peptic ulc er disease) (Fax) Social History Tobacco Use Types Packs/Day Years Used Date Current Every Day Smoker 2 38 Smokeless Tobacco: Never Used Alcohol Use Standard Drinks/Week Comments Yes 0 (1 standard drink = 0.6 oz pure alcoho l) Sex Assigned at Date Recorded Not on file documented as of this encounter Last Filed Vital Signs Vital Sign Reading Time Taken Comments Blood Pressure 130/84 04/12/2019 0847 EST Pulse 82 04/12/2019 0847 EST Temperature - - Respiratory Rate - - Oxygen Saturation 98% 04/12/2019 0847 EST Inhaled Oxygen Concentration - - Weight 122.5 kg (270 lb) 04/12/2019 0847 EST Height 182.9 cm (6') 04/12/2019 0847 EST Body Mass Index 36.62 04/12/2019 0847 EST documented in this encounter Functional Status Functional [...] making decisions? documented as of this encounter Progress Notes Jg Stubbs MD - 04/12/2019 0930 EST [facility] Cardiology Follow-up Visit Date of Service: 04/12/2019 Reason for Visit: Atypical angina ([facility]) [I20.8] Primary Care Provider: Altaf Lizarraga Patient ID: Samy Patricio, 1965 History of Present Illness Synopsis: 53 y.o. year-old male with w/ FH of premature CADongoing tobacco smoking, PUD s/p Luisana fundoplication, HLP, DM and CAD. ? 08/2017 NSTEMI. EDEN to RCA and LCX; LM and LAD MLI's. EF 55-60%, normal RV and valves. ? Chronic heart burn. On and off chest pressure/left jaw pain w/ emotional stress; no triggered by exertion. S/s better w/ IMDUR and metoprolol; amlodipine had no effect; amlodipine did not have any effect; when he ran out of his anti- anginals, his s/s worsened. 04/2018 stress test showed normal perfusion and contraction. ? Interim History: Samy Patricio is now being considered for spinal fusion. His s/s have not changed. 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 He is still smoking. He has a smoker's cough. ? Patient denies SOB, PND, edema, palpitations, syncope, claudication, focal deficits, bleeding, symptoms. ROS: 10 point review of systems performed; pertinent findings as mentioned above, all others negative PFSH, Medications and Allergies: reviewed. Past Surgical History: Procedure Laterality Date ??? CORONARY ANGIOPLASTY WITH STENT PLACEMENT N/A 08/2017 LM MLI's. LAD MLI's. LCX 80%. RCA 90%. RCA and LCX EDEN. Outpatient Medications Marked as Taking for the 04/12/19 encounter (Office Visit) with Jg Stubbs MD Medication Sig ??? aspirin 81 mg EC tablet Take 1 Tab by mouth daily. ??? atorvastatin (LIPITOR) 40 mg tablet Take 1 Tab by mouth daily. ??? BD ULTRA-FINE MINI PEN NEEDLE ??? glipiZIDE (GLUCOTROL) 10 mg tablet Take 10 mg by mouth 2 times daily. ??? isosorbide mononitrate (IMDUR) 120 mg CR tablet Take 2 Tabs by mouth daily. ??? lancets 33 gauge misc Lancets MISC USE DIRECTED. Active ??? metFORMIN (GLUCOPHAGE-XR) 500 mg ER tablet TAKE FOUR TABLETS BY MOUTH EVERY DAY ??? metoprolol XL (TOPROL-XL) 25 mg tablet 1 tab(s) orally once a day ??? nitroGLYCERIN (NITROSTAT) 0.4 mg SL tablet 1 tab(s) sublingually every 5 minutes ??? pantoprazole (PROTONIX) 40 mg tablet 1 tab(s) orally once a day ??? VICTOZA 2-CHRIS 0.6 mg/0.1 mL (18 mg/3 mL) injectable pen Allergies: Doxycycline; Unclassified drug; and Venlafaxine Social History: Life long smoker, currently 1 PPD. Vaping. Occasional ETOH. Family History: Mother w/ NC in her 50's, father w/ NC in his 50's, brother w/ NC in his 40's. Objective Vital Signs: Blood pressure 130/84, pulse 82, height 182.9 cm (72), weight (!) 122.5 kg (270 lb), SpO2 98 %. Physical Exam GENERAL: Pleasant, no acute distress. HEENT: Anicteric, mucous membranes moist. NECK: Supple, normal jugular venous pressure, brisk carotid upstrokes, no bruits. CHEST: Nontender. LUNGS: Clear to auscultation bilaterally, no rhonchi rales or wheezes. HEART: Regular rate and rhythm, normal S1-S2, no murmurs. ABDOMEN: Soft, nontender, nondistended, bowel sounds present, no bruits. EXTREM: No clubbing, cyanosis, edema, equal pulses. SKIN: Warm and dry, no rashes. NEURO: Alert and oriented x3, grossly intact Data: Available records including laboratory and cardiac studies reviewed; pertinent findings summarized above and below. Lab Results Component Value Date HGB 14.3 08/26/2017 HCT 40.4 08/26/2017 PLT 195 08/26/2017 Lab Results Component Value Date CREATININE 0.97 08/26/2017 CALCGFR 91 08/26/2017 K 4.2 08/26/2017 NA 135 (L) 08/26/2017 MG 2.1 08/26/2017 Lab Results Component Value Date TROPONINI 8.520 (H) 08/25/2017 Lab Results Component Value Date CHOL 116 08/26/2017 HDL 37 08/26/2017 TRIG 132 08/26/2017 HGBA1C 9.6 08/24/2017 Assessment 1. Atypical angina ([facility]) 2. Pre-op evaluation 3. H/O non-ST elevation myocardial infarction (NSTEMI) 4. H/O heart artery stent 5. Type 2 diabetes mellitus without complication, without long-term current use of insulin ([facility]) 6. Smoker 7. FH: premature coronary heart disease 8. CARLOTA (obstructive sleep apnea) 9. PUD (peptic ulcer disease) Completely revascularized, good biventricular function, normal, low risk stress test 04/2018. Stable atypical angina, probably vasospasm or GI. Able to achieve at least 4 METS . Good blood pressure control. No heart failure. No up-to-date lipidprofile or A1c. No active prohibitive cardiac conditions. Preoperative risk of major adverse cardiac events is low. Plan ?? Continue metoprolol 25 mg daily and IMDUR 240 mg daily. ?? Continue aspirin 81 mg daily and atorvastatin 40 mg nightly. ?? Strongly encouraged to quit smoking. ?? May proceed with surgery; at the moment no need for preoperative cardiac testing. Continue aspirin and metoprolol throughout surgery. Follow-up 1 year Jg Stubbs MD, PhD documented in this encounter Plan of Treatment Not on filedocumented as of this encounter Visit Diagnoses Diagnosis Atypical angina (HCC) - Primary Other and unspecified angina pectoris Pre-op evaluation Preoperative examination, unspecified H/O non-ST elevation myocardial infarcti on (NSTEMI) Old myocardial infarction H/O heart artery stent Postsurgical percutaneous transluminal c oronary angioplasty status Type 2 diabetes mellitus without complic ation, without long-term current use of insulin ([facility]) ([facility]) Smoker Tobacco use disorder FH: premature coronary heart disease Family history of ischemic heart disease CARLOTA (obstructive sleep apnea) Obstructive sleep apnea (adult) (pediatr ic) PUD (peptic ulcer disease) Peptic ulcer, unspecified site, unspecif ied as acute or chronic, without mention of hemorrhage, perforation, or obstruction documented in this encounter Discontinued Medications Medication Sig Discontinue Reason Start Date End Date metFORMIN (GLUCOPHAGE) Take 1,000 mg by 0 04/12/2019 500 mg tablet mouth daily. documented as of this encounter Historical Medications This list may reflect changes made after this encounter. Medication Sig Dispensed Refills Start Date End Date lancets 33 gauge misc Lancets MISC 0 USE DIRECTED. Active BD ULTRA-FINE MINI PEN 0 03/19/2019 NEEDLE VICTOZA 2-CHRIS 0.6 mg/0.1 0 03/19/2019 mL (18 mg/3 mL) injectable pen metFORMIN (GLUCOPHAGE-XR) TAKE FOUR TABLETS BY 0 04/07/2019 500 mg ER tablet MOUTH EVERY DAY glipiZIDE (GLUCOTROL) 10 Take 10 mg by mouth 2 0 02/12/2019 mg tablet times daily. added in this encounter Care Teams Reliability Technician Relationship Specialty Start Date End Date Altaf Hoover MD PCP - General 11/12/15 04/12/20 documented as of this encounter
--- NOTE | 2021-12-17 11:15 | DI.US_ITS ---
APPROVED REPORT EXAM: Comprehensive 2D, Doppler, and color-flow Echocardiogram Patient Location: Out-Patient Payroll And Benefits Coordinator: Ely Hawthorne RDCS (AE) Indications: Lower extremity edema, CAD Other Information Study Quality: Adequate Conclusion Normal left ventricular wall thickness and chamber size. Estimated ejection fraction is 55 to 60%. Wall motion is normal Normal right ventricular size and systolic function Both atria are normal in size There is no structural or hemodynamically significant valvular disease Wall motion Left Ventricle The left ventricle is normal size. The left ventricular systolic function is normal. The left ventric ular ejection fraction is within the normal range. There is normal left ventricular wall thickness. T here is normal LV segmental wall motion. There is no ventricular septal defect visualized. LVEF is 57 %. Right Ventricle The right ventricle is normal size. The right ventricular systolic function is normal. Atria The left atrium size is normal. The right atrium size is normal. The interatrial septum is intact wit h no evidence for an atrial septal defect. Aortic Valve The aortic valve is normal in structure. There is no aortic valvular stenosis. No aortic regurgitatio n is present. Mitral Valve The mitral valve is normal in structure. No evidence of mitral valve stenosis. Trace mitral regurgita tion. Tricuspid Valve The tricuspid valve is normal in structure. There is no tricuspid valve stenosis. Trace tricuspid reg urgitation. Unable to assess PA pressure. Pulmonic Valve The pulmonary valve is normal in structure. There is no pulmonic valvular stenosis. There is no pulmo didier valvular regurgitation. Great Vessels The aortic root is normal in size. The ascending aorta is normal in size. Aortic arch is not well vis ualized. IVC is normal in size and collapses >50% with inspiration. Pericardium There is no pericardial effusion. 2D Dimensions IVSD d PLAX 0.96 cm M: 0.6-1.2 LV Vol A2C d MOD 126.5 mL LVPW d PLAX 1.05 cm M: 0.6 - 1.2 LV Vol A4C d MOD 141.5 mL LVID d PLAX 4.79 cm M: 4.2 - 5.8 LA vol/ BSA A2C s A-L 18.6 mL/m2 LVDs 3.25 cm M: 2.5 - 4.0 LA vol/ BSA A4C s A-L 23.2 mL/m2 Ao Root d 3.11 cm M: 3.1 - 3.7 LA Vol/ BSA Biplane s A-L 22.0 mL/m2 RA Area A4C 15.25 cm2 LA Area A4C s MOD 21.43 cm2 RA Vol/ BSA A4C s A-L 14.8 mL/m2 LA Area A2C s MOD 18.15 cm2 Ao Asc Diam d 3.43 cm M: 2.6 - 3.4 LV EF A4C MOD 56.5 % LV EF Teichholz 59.3 % LV EF A2C MOD 57.9 % LVEF (Hi's) 57.26 % M: 52 - 72 LV EF Biplane MOD 57.3 % LV Volume 93.06 mL M: 62 - 150 SV 77.01 mL LV Volume Index 35.79 mL/m2 M: 34 - 74 SV Index 29.56 mL/m2 LV Vol Biplane MOD 134.5 mL FS 31.45 % M-Mode TAPSE 1.89 cm (M/F) >1.7 LV Diastology MV E' medial 0.088 (>0.07 m/s) E/A Ratio 0.8 LV E/e MED 8.25 (<14) MV E Vmax 0.73 (0.4-1.3 m/s) MV E' lateral 0.094 (>0.1 m/s) MV A Vmax 0.90 (0.4-1.3 m/s) LV E/e LAT 7.70 (<14) MV E/A Ratio 0.79 MV E/E' medial 8.26 MV E/E' lateral 7.72 Aortic Valve LVOT Area 3.82 cm2 AoV Area Vmax 3.49 cm2 LVOT Vmax 1.19 m/s AoV Area/ BSA (Vmax) 1.34 cm2/m2 LVOT Mean Shubham. 0.73 m/s SHAILA Mean Shubham. 3.06 cm2 LVOT Peak Grad 5.7 mmHg SHAILA Mean Shubham. Index 1.18 cm2/m2 LVOT Mean Grad 2.6 mmHg LVOT VTI 0.250 m LVOT Diam s 2.20 cm AoV Vmax 1.30 m/s Velocity Ratio 0.91 AoV Mean Shubham. 0.91 m/s AoV Peak Grad 6.8 mmHg LVOT SV 95.46 mL AoV Mean Grad 3.7 mmHg AoV VTI 0.255 m AoV Area VTI 3.75 cm2 AoV Area/ BSA (VTI) 1.44 cm/m2 Mitral Valve MV DT 239 (160-240 msec) MV PHT 69 msec MV Area PHT 3.17 cm2 MV VTI 0.316 m MV Area VTI 3.02 (4.0-6.0 cm2) Pulmonary Valve PV Vmax 0.96 (0.5-1.5 m/s) RVOT Peak Gr. 1.66 mmHg PV Peak Grad 3.7 mmHg RVOT Mean Gr. 0.90 mmHg PV Mean Grad 2.1 mmHg RVOT VTI 0.152 m PV VTI 0.201 m RVOT Vmax 0.64 m/s
== END ==
PROVIDERS: PCP Family Medicine; Visit Provider Family Medicine
DX: R60.0 Localized edema (principal)
CPT/HCPCS: 93306

== ENCOUNTER 2021-12-21 03:10 | Outpatient (CLI) | payer MEDICARE, OTHER, SELFPAY ==
--- NOTE | 2021-12-21 14:00 | NS.NUTBLAN_ITS ---
Samy was referred to diabetes self management education. 56 years old with long standing hx of DM 2 6'0 316 lbs has gained 50 lbs in last 6 months. Typical weight 270 lbs PMH: DM2, CAD, LA x 2, smoker, delayed gastric emptying, edema, neuropathy. Family History: type 1 diabetes (2 nephews), rheumatoid arthritis (daughter) DM meds: glargine 100 units BID, 40 units lispro TID, 1000 mg metformin BID, 10 mg Jardiance qd. 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 Beverages= crystal light Most recent A1C: 7.7% Samy reports that about 3 months ago he started to suffer from bilateral edema and as this started, his blood sugars became more and more elevated, leading him to use more long and short acting insulin. He reports at same time, his sleep was affected and can only sleep 1-3 hours at a time. He just had a sleep study, results pending. He smokes 2 packs a day. Overall, he feels terrible, fatigued, aches and pains, very bloated and has pain in his leg muscles if he walks more than 20 steps. Prior to this , his Dm2 was controlled with 30 units lantus BID, with 10 units lispro at meals. Samy typically will only eat once daily, however, recently has started to eat breakfast to avoid hypoglycemia with current dose of lantus. Samy is experiencing severe insulin resistance that has led him to increase his insulin dosage. He states that he sometimes takes as much as 100 units of short acting insulin to reduce hyperglycemia by 200 units. Suspect, absorption of these high doses of insulin, not optimal and leading to further glycemic deregulation. Strong family hx of autoimmune disorders, would recommend testing for Hashimotos disease- would help explain edema, inflammation, rapid weight gain, muscle and joint pain. Also, educated Samy on how to follow a low FODMAP diet, 3meals daily to help reduce inflammation and hopefully better regulate blood sugars. Session today also included placing a Dexcom 6 continuous glucose monitor. Educated Samy to use a 1:10 insulin to carb ratio and a 1:15 correction factor. Recommend reduce carb intake to no more than 30 grams per meal, 3 three meals daily, increase lean protein and non starchy vegetable intake- provided meal plans Reduce lantus to 30 units BID, upto 100 g gluten free carbs daily () with 80-100 g protein daily. follow up planned 12/30/21 at 1 pm.
== END 2021-12-21 03:11 | disposition home or self-care (01) ==
LOC: DS 03:10
PROVIDERS: PCP Family Medicine; Visit Provider Dietitian, Registered
DX: E11.9 Type 2 diabetes mellitus without complications (principal); Z79.4 Long term (current) use of insulin; Z79.84 Long term (current) use of oral hypoglycemic drugs; Z71.3 Dietary counseling and surveillance
CPT/HCPCS: 97802

== ENCOUNTER 2021-12-30 04:09 | Outpatient (CLI) | payer MEDICARE, OTHER, SELFPAY ==
--- NOTE | 2021-12-30 13:00 | NS.NUTBLAN_ITS ---
Samy returns for follow up after wearing a Dexcom 6 continuous glucose monitor for last 10 days. Dm meds: 1000 mg metformin BID, 10 mg Jardian qd, has reduced lantus to 30 units AM and PM, taking 40-100 units lispro at dinner. Diet Record: typically only eats once daily. Drinks diet beverages during day. Dinner last night was chicken and salad with 1/2 bag of popcorn (15 g carbs). Unable to exercise due to severe burning in his calfs when he walks short distances. Ambulatory Glucose Profile (12/14/21-12/27/21) Average Glucose: 177 mg/dl Time in Range: 61.3% Goal >70% 181-1250 m.5% Goal <25% >250 m% Goal: < 5% no hypoglycemia Samy noticed that with reduced lantus that his sugars were relatively well controlled during day, , however, daily at dinner meal, he would spike over 200 mg/dl. His dinner meal typically includes 6 ounces of some kind of meat/chicken and a salad- carb content about 30-45 g. One day last week his blood sugar went above 300 mg/dl (after eating a part of a whoopie pie), he injected 60 units with no results after 1 hour - he then injected another 60 units and it came down to 150 mg/dl. Reviewed importance of eating 3 meals daily or taking some kind of protein shake as meal replacement. He has ordered shakes but has not started drinking them. Suspect once he eats on regular basis, liver output of glycogen will be less and dinner meal won't cause blood sugar spikes. Continue to suspect that Samy has some underlying inflammation (has leg edema and pain), thyroid disfunction that is exacerbating his Dm 2. He states that his Dm was well controlled until about 3 months ago when his leg swelling started. TSH has been trending upward over the years. No Free T4 levels taken. Recommend work up for Bethany's/Graves Disease as has autoimmune disorders in his family and may be cause of glycemic dysregulation. Will follow up with Dr. Barbosa and Giancarlo Walton for their insight. Noted to have a Anival 2 continuous glucose monitor ordered 12/22/21- please change to Dexcom 6 sensor/transmitter and complete DME order. WIll continue to follow Samy remotely and follow up prn.
== END 2021-12-30 04:10 | disposition home or self-care (01) ==
PROVIDERS: PCP Family Medicine; Visit Provider Dietitian, Registered
DX: E11.9 Type 2 diabetes mellitus without complications (principal)
CPT/HCPCS: 97803

== ENCOUNTER 2022-01-06 04:04 | Outpatient (CLI) | payer MEDICARE, OTHER, SELFPAY ==
[2022-01-06 12:55] LABS: TSH (W/Ref FT4) 4.48 uIU/mL (0.36-3.74)
[2022-01-06 13:15] LABS: FREE T4 1.02 ng/dL (0.76-1.46)
== END 2022-01-06 04:05 | disposition home or self-care (01) ==
LOC: LOS 04:04
PROVIDERS: PCP Family Medicine; Visit Provider Family Medicine
DX: E03.9 Hypothyroidism, unspecified (principal); R60.0 Localized edema
CPT/HCPCS: 36415; 84439; 84443

== ENCOUNTER → 2022-01-14 00:42 | Outpatient (CLI) | payer MEDICARE, OTHER, SELFPAY ==
--- NOTE | 2022-01-14 08:30 | DI.US_ITS ---
Exam(s) US LOWER EXTREMITY VENOUS LT EXAM: US LOWER EXTREMITY VENOUS LT CLINICAL HISTORY: left > right pitting chronic edema,R60.0 TECHNIQUE: Grayscale, color, and doppler imaging of the deep venous system of the left lower extremi ty was performed. COMPARISON: US US ECHOCARDIOGRAM from 12/17/2021 FINDINGS: There is no evidence of intraluminal thrombus and there is normal compression and augmentation demons trated within the common femoral vein, femoral vein, and popliteal vein. In the ipsilateral calf the interrogated veins also exhibit normal compression/ augmentation properti es. The ipsilateral saphenofemoral junction is patent. IMPRESSION: 1. No evidence of DVT in the left lower extremity. DATA REPOSITORY:
== END ==
PROVIDERS: PCP Family Medicine; Visit Provider Family Medicine
DX: R60.0 Localized edema (principal)
CPT/HCPCS: 93971

== ENCOUNTER 2022-01-17 03:06 | Outpatient (CLI) | payer MEDICARE, OTHER, SELFPAY ==
[2022-01-17 10:43] LABS: Anion Gap 8.8 mmol/L (3-11); BUN 24 mg/dL (7-18); CO2 31.2 mmol/L (21.0-32.0); CREATININE 1.7 mg/dL (0.70-1.30); Calcium 9.2 mg/dL (8.5-10.1); Chloride 99 mmol/L (98-107); Estimated GFR 47.02 (mL/min/1.73m2); Glucose 197 mg/dL (74-106); Potassium 3.6 mmol/L (3.5-5.1); Sodium 139 mmol/L (136-145)
== END 2022-01-17 03:07 | disposition home or self-care (01) ==
LOC: LOS 03:06
PROVIDERS: PCP Family Medicine; Visit Provider Family Medicine
DX: E11.22 Type 2 diabetes mellitus with diabetic chronic kidney disease (principal); I10 Essential (primary) hypertension; N18.31 Chronic kidney disease, stage 3a; Z79.4 Long term (current) use of insulin
CPT/HCPCS: 36415; 80048

== ENCOUNTER → 2022-02-02 01:46 | Outpatient (CLI) | payer MEDICARE, OTHER, SELFPAY ==
[2022-02-02] MEDS: Omnipaque 350 MG/ML 500 ML BTL-Imaging package IJ (14:57)
[2022-02-02] MEDS: Normal Saline - Diluent 50 ML VIAL IJ ×2 (15:00→15:01)
[2022-02-02] MEDS: Normal Saline Flush 10 ML SYR IVP (15:01)
--- NOTE | 2022-02-02 15:05 | DI.CT_ITS ---
Exam(s) CT ABD AORTA CTA W RUNOFF EXAM: CT ABD AORTA CTA W RUNOFF CLINICAL HISTORY: claudication when walking 20 feet,SMOKER,CAD,Z98.61,I25.10. TECHNIQUE: Imaging Protocol: Axial CT angiography was performed with multi-slice acquisition and mu lti-planar and/or 3D reconstructions. CONTRAST MATERIAL: Intravenous: Omnipaque 350 Contrast volume:150 mL Oral: No COMPARISON: CT CT ABDOMEN PELVIS W from 07/12/2019 FINDINGS: Vascular Structures: Abdomen and pelvis: Celiac [place]/SMA: No evidence of occlusion or significant stenosis. Renal Arteries: No evidence of occlusion or significant stenosis. There is a single renal artery perf using each kidney. There is mild atherosclerosis in the proximal renal arteries bilaterally. Aorta: No aneurysm, occlusion or significant stenosis. No dissection. Atherosclerosis is present. Iliac Arteries: No evidence of occlusion or significant stenosis. Atherosclerosis is present. Lower extremities: Right: Mild atherosclerotic disease is present. Common Femoral: There is no evidence of occlusion. There is atherosclerosis present. There is less than 50 percent narrowing noted. Femoral: No evidence of occlusion or significant stenosis. Atherosclerosis is present. Deep Femoral Artery: No evidence of occlusion or significant stenosis. Popliteal: No evidence of occlusion or significant stenosis. Knee Trifurcation: No evidence of occlusion or significant stenosis. Anterior Tibial: No evidence of occlusion or significant stenosis. Posterior Tibial: No evidence of occlusion or significant stenosis. Peroneal:The distal peroneal artery is not visualized. Left: Mild atherosclerotic disease is present. Common Femoral: No evidence of occlusion or significant stenosis. Femoral: No evidence of occlusion or significant stenosis. Deep femoral artery: No evidence of occlusion or significant stenosis. Popliteal: No evidence ofocclusion or significant stenosis. Knee Trifurcation: No evidence of occlusion or significant stenosis. Anterior tibial: No evidence of occlusion or significant stenosis. Posterior Tibial: No evidence of occlusion or significant stenosis. Peroneal: No evidence of occlusion or significant stenosis. Soft Tissues: Lung bases: Clear. Liver: Normal density. No measurable mass. Gallbladder and biliary tract: No radiodense calculus or dilation. Pancreas: Normal density, no abnormal calcifications or inflammatory process. Spleen: Normal. Kidneys: Normal size, contour and axis. No radiodense stones or obstructive uropathy. No masses seen. Adrenal glands: No masses seen. Aorta: Please see above. Bladder: Symmetric distention, no gross wall thickening. Bowel: No obstruction or bowel wall thickening. The appendix is unremarkable. There is a small hiata l hernia. Peritoneal cavity: No ascites, collection or mesenteric inflammatory response. No free air. Bones: Within normal limits for the patient's age. Reproductive organs: Unremarkable. Lymph nodes: Unremarkable. Soft tissues: There is a small fat containing umbilical hernia. There is a small fat containing supr aumbilical midline hernia. IMPRESSION: 1. Atherosclerosis is present. No evidence of an abdominal aortic dissection or aneurysm. The right distal peroneal artery is not visualized. The exam is limited by decreased opacification of the art eries distally. But occlusion cannot be excluded. 2. No acute abdominal or pelvic process. RADIATION DOSE DELIVERED: Total DLP Total DLP DATA REPOSITORY: All CT scans at this facility are submitted to the National Radiology Data Registry (NRDR) Dose Index Registry (DIR) with the [employer] (ACR). RADIATION OPTIMIZATION: All CT scans at this facility use at least one of these dose optimization te chniques: automated exposure control; mA and/or kV adjustment per patient size (includes targeted exa ms where dose is matched to clinical indication); or iterative reconstruction.
== END ==
PROVIDERS: PCP Family Medicine; Visit Provider Family Medicine
DX: I25.10 Atherosclerotic heart disease of native coronary artery without angina pectoris (principal); I73.89 Other specified peripheral vascular diseases; F17.210 Nicotine dependence, cigarettes, uncomplicated; Z98.61 Coronary angioplasty status; K44.9 Diaphragmatic hernia without obstruction or gangrene; K42.9 Umbilical hernia without obstruction or gangrene; I70.1 Atherosclerosis of renal artery
CPT/HCPCS: 75635

== ENCOUNTER 2022-02-28 19:44 | Emergency (ER) | payer MEDICARE, OTHER, SELFPAY ==
[2022-02-28 19:48] VITALS: BP 166/89; PULSE 103; RESP 16; TEMP 36.6; O2SAT 98
--- NOTE | 2022-02-28 20:18 | ED.GENADUL_ITS ---
Discharge Plan Disposition Patient Disposition: Home Condition: Stable Discharge Details Clinical Impression: Bursitis, prepatellar, right Primary Care Provider: Karen Barbosa ED Provider: Quinn Curiel Home Meds and New Rx's Prescriptions: Continued insulin glargine [Lantus Solostar U-100 Insulin] 100 unit/mL (3 mL) insulin pen 30 unit subcut BID vitamin B complex [B Complex-Vitamin B12] Tablet 1 tab PO DAILY albuterol sulfate 90 mcg/actuation HFA aerosol inhaler 2 puff inhalation Q6H PRN (Reason: shortness of breath or wheezing) Qty: 8.5 4RF Trelegy Ellipta 200-62.5-25 mcg blister with device 1 inh inhalation DAILY Qty: 60 4RF torsemide 60 mg tablet 60 mg PO DAILY Qty: 90 4RF metformin 1,000 mg tablet 1,000 mg PO BID Qty: 180 3RF Humalog KwikPen Insulin 200 unit/mL (3 mL) insulin pen 30 unit subcut QACHS Qty: 18 12RF nicotine 21 mg/24 hr patch 24 hour 1 patch transdermal DAILY Qty: 28 2RF aspirin [Aspir-81] 81 MG tablet,delayed release (DR/EC) 81 mg PO DAILY Label Comments: 08-28-17 per [facility]. -hb acetaminophen 325 mg tablet 650 mg PO Q6H PRN (DME) lancets [BD Ultra Fine Lancets] 33 gauge misc See Rx Instructions .ROUTE .MEDSUPPLY Qty: 100 4RF Rx Instructions: Three times daily nitroglycerin 0.4 mg tablet, sublingual See Rx Instructions .ROUTE .COMPLEX Qty: 100 3RF Dose Instruction: PLACE ONE TABLET UNDER THE TONGUE EVERY 5 MINUTES FOR UP TO 3 DOSES NEEDED FOR CHEST PAIN. IF CHEST PAIN STILL PERSISTS CONTACT 911 Rx Instructions: PLACE ONE TABLET UNDER THE TONGUE EVERY 5 MINUTES FOR UP TO 3 DOSES NEEDED FOR CHEST PAIN. IF CHEST PAIN STILL PERSISTS CONTACT 911 pantoprazole 40 mg tablet,delayed release (DR/EC) 40 mg PO BID Qty: 180 3RF (DME) pen needle, diabetic [Comfort EZ Pen [place]] 31 gauge x 1/4 needle See Rx Instructions .ROUTE .MEDSUPPLY Qty: 500 4RF Rx Instructions: Five times daily folic acid 1 mg tablet 1 mg PO DAILY Qty: 90 4RF atorvastatin 80 mg tablet 80 mg PO QHS Qty: 90 3RF metoprolol succinate 100 mg tablet extended release 24 hr 100 mg PO DAILY Qty: 90 3RF (DME) Dexcom G6 Sensor Device See Rx Instructions .Route Qty: 3 12RF Rx Instructions: As directed empagliflozin 10 mg tablet 10 mg PO DAILY Qty: 30 3RF Discharge Instructions Instructions: Knee Bursitis (ED) Additional Instructions: Rest, elevate, cool and/or warm compresses every 2 hours for 20 minutes. Locc-quz-[id number] medication as directed for symptomatic control. Wear compression wrapping as tolerated. Please watch for new or worsening symptoms and return to the ER for any concerns. If symptoms not improving with conservative measures, please follow-up with orthopedics in approximately 1 week. Referrals: Aiden Santa MD [ [facility] STAFF PHYSICIAN] - Discharge Data Discharge Date/Time-TO BE ENTERED AT DEPARTURE: 02/28/22 20:48 Medical Decision Making This is a 56-year-old gentleman with a complicated past medical history that includes hypertension, diabetes, chronic back pain, COPD, presenting to the ER reporting nontraumatic pain over the past 24-36 hours. Patient does state that earlier in the week he was working on his hands and knees but denies any obvious injury. Patient is afebrile. Knee is stable. Given it was atraumatic, x-ray likely little value. No erythema, warmth, etc. which would be more suggestive of septic joint, gout, etc. Tenderness and swelling seems to be associated with the patella and not with the actual knee joint itself. I believe most likely diagnosis is a bursitis, this would fit with his working on his hands and knees earlier in the week. Discussed my thought process with the patient and family. Discussed treatment options. Plan to provide a compression wrap to his knee. He declines crutches. We will provide orthopedic follow-up if symptoms not improving in the next 5-7 days with conservative measures. Standard discharge and return precautions were provided. Patient understands, is agreeable to this plan, and has no additional questions or concerns upon discharge. This documentation was generated using [employer] system, please disregard any oddities of phrase or misspellings. Medical Records Medical records reviewed: Yes I reviewed the patient's medical records. HPI General Mode of arrival: ambulatory . Date/Time Provider Initiated Documentation: 02/28/22 19:58 . Limitations to Documentation: no limitations . Information obtained by: patient and family . History of Present Illness 56 year old M presents to the emergency department with the chief complaint of R knee pain, described as severe, with intensity rated at 8. Quality is described as aching, and is localized to the right and lower extremity. Patient reports no radiation. Patient started experiencing this day(s) (2) and it has been constant. Immobilization improves symptom(s), Movement worsens symptoms . Patient notes no other symptoms.. Patient did receive the following treatments prior to arrival, other (Tylenol arthritis) Related Data Home Medications Medication Instructions Recorded Confirmed aspirin 81 mg tablet,delayed 81 mg PO DAILY 08/28/17 02/28/22 release (Aspir-) acetaminophen 325 mg tablet 650 mg PO Q6H PRN 06/27/19 02/28/22 vitamin B complex (B 1 tab PO DAILY 08/19/19 02/28/22 Complex-Vitamin B12 tablet) lancets 33 gauge (BD Ultra Fine #100 ea 08/12/20 02/28/22 Lancets) nitroglycerin 0.4 mg sublingual See Rx Instructions .Route 05/04/21 02/28/22 tablet .COMPLEX #100 tabs pantoprazole 40 mg tablet,delayed 40 mg PO BID #180 tabs 08/12/21 02/28/22 release pen needle, diabetic 31 gauge x #500 ea 09/15/21 02/28/2203/16 (Comfort EZ Pen [place]) folic acid 1 mg tablet 1 mg PO DAILY #90 tabs 10/12/21 02/28/22 atorvastatin 80 mg tablet 80 mg PO QHS #90 tabs 10/19/21 02/28/22 albuterol sulfate 90 mcg/actuation 2 puff inhalation Q6H PRN 10/20/21 02/28/22 aerosol inhaler shortness of breath or wheezing #8.5 grams fluticasone fur. 200 mcg-umeclid 1 inh inhalation DAILY #60 ea 10/20/21 02/28/22 62.5 mcg-vilant 25 mcg inhalat.powder (Trelegy Ellipta) torsemide 60 mg tablet 60 mg PO DAILY #90 tabs 10/20/21 02/28/22 metoprolol succinate 100 mg 100 mg PO DAILY #90 tabs 11/25/21 02/28/22 tablet,extended release 24 hr blood-glucose sensor (Dexcom G6 #3 ea 12/30/21 02/28/22 Sensor device) insulin glargine 100 unit/mL (3 30 unit subcut BID 01/12/22 02/28/22 mL) subcutaneous pen (Lantus Solostar U-100 Insulin) empagliflozin 10 mg tablet 10 mg PO DAILY #30 tabs 02/01/22 02/28/22 insulin lispro 200 unit/mL (3 mL) 30 unit (0.15 mL) subcut QACHS #18 02/23/22 02/28/22 subcutaneous pen (Humalog KwikPen mL U-200 Insulin) metformin 1,000 mg tablet 1,000 mg PO BID #180 tab-caps 02/23/22 02/28/22 nicotine 21 mg/24 hr daily 1 patch transdermal DAILY #28 ea 02/23/22 02/28/22 transdermal patch Previous Rx's Medication Instructions Recorded lancets 33 gauge (BD Ultra Fine #100 ea 08/12/20 Lancets) nitroglycerin 0.4 mg sublingual See Rx Instructions .Route 05/04/21 tablet .COMPLEX #100 tabs pantoprazole 40 mg tablet,delayed 40 mg PO BID #180 tabs 08/12/21 release pen needle, diabetic 31 gauge x #500 ea 09/15/2103/16 (Comfort EZ Pen [place]) folic acid 1 mg tablet 1 mg PO DAILY #90 tabs 10/12/21 atorvastatin 80 mg tablet 80 mg PO QHS #90 tabs 10/19/21 albuterol sulfate 90 mcg/actuation 2 puff inhalation Q6H PRN 10/20/21 aerosol inhaler shortness of breath or wheezing #8.5 grams fluticasone fur. 200 mcg-umeclid 1 inh inhalation DAILY #60 ea 10/20/21 62.5 mcg-vilant 25 mcg inhalat.powder (Trelegy Ellipta) torsemide 60 mg tablet 60 mg PO DAILY #90 tabs 10/20/21 metoprolol succinate 100 mg 100 mg PO DAILY #90 tabs 11/25/21 tablet,extended release 24 hr blood-glucose sensor (Dexcom G6 #3 ea 12/30/21 Sensor device) empagliflozin 10 mg tablet 10 mg PO DAILY #30 tabs 02/01/22 insulin lispro 200 unit/mL (3 mL) 30 unit (0.15 mL) subcut QACHS #18 02/23/22 subcutaneous pen (Humalog KwikPen mL U-200 Insulin) metformin 1,000 mg tablet 1,000 mg PO BID #180 tab-caps 02/23/22 nicotine 21 mg/24 hr daily 1 patch transdermal DAILY #28 ea 02/23/22 transdermal patch Allergies Allergy/AdvReac Type Severity Reaction Status Date / Time venlafaxine AdvReac Severe Nausea Verified 02/28/22 19:54 doxycycline AdvReac Intermediate Cold Verified 02/28/22 19:54 Chills, made him sick. liraglutide [From Victoza] AdvReac Intermediate GI upset Verified 02/28/22 19:54 General Stated Complaint: Orthopedic DIANE: 4 Review of Systems Constitutional Constitutional: Denies fever(s) and Denies weakness Cardiovascular Cardiovascular: Denies chest pain Respiratory Respiratory: Denies cough Musculoskeletal Musculoskeletal: Reports arthralgias, Reports joint swelling, Denies numbness, Reports stiffness and Denies tingling Integumentary/Breasts Skin/Breast: Denies erythema and Denies rash Neurologic Neurologic: Denies numbness, Denies tingling and Denies weakness Hematologic/Lymphatic Hematologic/Lymphatic: Denies easy bleeding and Denies easy bruising PFSH All Active Problems Bursitis, prepatellar, right (Acute) Depression with anxiety (Chronic) resistant to treatment with antidepressants CARLOTA (obstructive sleep apnea) (Chronic) Hyperlipidemia (Chronic) CAD S/P percutaneous coronary angioplasty (Chronic 08/28/17) Smoker (Acute) HTN (hypertension) (Chronic) GERD (gastroesophageal reflux disease) (Acute) Diabetic peripheral neuropathy (Acute) Colon polyp, hyperplastic (Acute ~04/2020) 04/13/20 HP x19 Serrated adenoma of colon (Acute ~04/2020) 04/13/20 Sessile serrated adenomax2 Tubular adenoma (Acute ~04/2020) 04/13/20 TAx5 Actinic keratosis due to exposure to sunlight (Acute) BPH loc w urin obs/LUTS (Acute) Erectile dysfunction (Acute) Bilateral lower extremity edema (Chronic) left > right Obesity (Chronic) Claudication (Acute) Memory change (Acute) Lumbosacral spondylosis without myelopathy (Acute) Type 2 diabetes mellitus with diabetic neuropathy, with long-term current use of insulin (Acute) Diabetes mellitus with stage 3a chronic kidney disease, with long-term current use of insulin (Acute) Medical History Acute nontraumatic kidney injury 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, 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 Cervical disc disease Chronic left-sided low back pain with left-sided sciatica (12/03/15) Chronic neck pain Chronic obstructive lung disease Chronic pain syndrome (09/30/16) 08/19/16-CONTROLLED SUBSTANCE AGREEMENT-APPROVED FOR 3 MONTHS History of Diaz's esophagus History of dysphagia Parastomal hernia PUD (peptic ulcer disease) Spondylosis of cervical region without myelopathy or radiculopathy (04/17/15) Thoracic spine pain (07/17/15) Tubular adenoma of colon (02/18/14) Surgical History Colonoscopy - MAC 02/18/14 History of esophagogastroduodenoscopy History of incisional hernia repair with mesh left shoulder repair Luisana Fundoplication right ulnar graft Status post carpal tunnel release Status post inguinal hernia repair Status post Luisana fundoplication Status post vasectomy Family History Father , age 74 Diabetes Alcohol abuse sober in later years Essential hypertension Hyperlipidemia Cancer Mother , age 72 Diabetes Essential hypertension Heart disease Hyperlipidemia Mental disorder pt thinks she has bipolar Depression Brother Hyperlipidemia Depression Diabetes Heart disease Hypertension Sister Alcohol abuse Depression Stroke Substance abuse Sister Depression Heart disease Hypertension Brother Hyperlipidemia Hypertension Brother , age 29 Alcohol abuse Depression Substance abuse Social History Smoking/Tobacco Use Status: Current every day Tobacco Type: cigarettes Smoking packs per day: 2 Smoking cigarettes per day: 40.0 Tobacco: How many years used: 40 Quit status: considering quitting Second Hand Exposure: Yes Counseling given: provider counseling, support medications and counseling >10 minutes Smoking risk assessment performed?: Yes Alcohol Intake: current Alcohol Intake frequency: a few times a month Alcohol type: hard liquor Drug use: Never Substance use type: does not use Caregiver/Support person: No Household members: spouse and family Housing: house Communication Needs: None Do you need help understanding health information?: Rarely 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 Pets and animals: Yes Pets and animals: dog(s) Sexually active: No Do you think of yourself as: straight/heterosexual Current gender identity: male What is your relationship status?: How often do you talk on the phone with friends or family?: once per week How often do you get together with friends or relatives?: once per week How often do you attend alevism or roman catholic services?: decline to answer Do you belong to any clubs or organized social groups?: no Panel score (0-1 are the most socially isolated patients): 1 Duration: decline to answer Frequency: decline to answer Mayela/Rastafarian: No preference Special mayela needs: No Seatbelt use: always Helmet use: Yes Helmet use: always Drive intox or ride w/intox trackless trolley driver: No Do you feel safe at home: Yes Do you feel safe in your relationship?: Yes Exam Const General: cooperative, healthy appearing, comfortable and no acute distress Orientation: alert and awake [facility] Head: normal to inspection, normocephalic and atraumatic Eyes Conjunctivae: conjunctivae normal Neck Neck: normal visual inspection, trachea midline and supple Resp Effort & Inspection: normal respiratory effort and able to speak in complete sentences Cardio Rate: regular rate Rhythm: regular rhythm Skin General skin exam: no rashes or lesions noted Neuro General: patient alert, patient awake, moves all extremities and no focal motor deficits Cognition: normal cognition Speech: speech normal Gait: antalgic Motor: muscle tone normal throughout Sensory Exam: no sensory deficits noted Extrem General: full ROM and capillary refill normal Other: Right knee with full range of motion. Stable. No increased discomfort with varus or valgus stress. Negative anterior draw sign. There is anterior swelling and tenderness. There is no warmth or erythema. No evidence of septic joint. Calf is unremarkable. Negative Homans' sign. Normal capillary refill and pedal pulse. Psych Appearance: grossly normal Mental Status: mental status grossly normal Course Vital Signs Vital signs: Vital Signs Temperature 36.6 C 02/28/22 19:48 Pulse 103 H 02/28/22 19:48 Respiratory Rate 16 02/28/22 19:48 Blood Pressure 166/89 H 02/28/22 19:48 Pulse Oximetry 98 02/28/22 19:48 Temperature 36.6 C 02/28/22 19:48 Temperature Source Temporal Artery Scan 02/28/22 19:48 Pulse 103 H 02/28/22 19:48 Respiratory Rate 16 02/28/22 19:48 Respiratory Effort 02/28/22 19:48 Blood Pressure 166/89 H 02/28/22 19:48 Blood Pressure Position Sitting 02/28/22 19:48 Pulse Oximetry 98 02/28/22 19:48 Oxygen Delivery Method Room Air 02/28/22 19:48 Oxygen Flow Rate 0 02/28/22 19:48 Pain Level 7 02/28/22 19:48
== END 2022-02-28 20:48 | disposition home or self-care (01) ==
PROVIDERS: Emergency Provider Physician Assistant; PCP Family Medicine
DX: M70.41 Prepatellar bursitis, right knee (principal)
CPT/HCPCS: 99282

== ENCOUNTER 2022-03-30 12:39 | Outpatient (CLI) | payer MEDICARE, OTHER, SELFPAY ==
--- NOTE | 2022-03-30 13:44 | PDOC.PAIN ---
Date of service: 03/30/22 Time of Service: 13:50 Pain Clinic Procedure Note Procedure Note Procedure Note: Patient presented and was not sure if he wanted to proceed with the procedure (LMBB). 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 His pain now is mostly in his bilateral buttocks. He feels that his low back pain is mild and manageable. His neck pain is getting much worse and radiating into the arm. He has seen Dr. Clement in the past. She did recommend surgery in 2019, but his Hem A1c was 13 and they could not proceed with surgery. His Hem A1c is now around 7. He will reconnect with Dr. Clement and get back with us if he needs help with his neck or low back. For now he would like to cancel the LMBB and follow up as needed. I answered all of his questions. Enrique Hurley DO, MPH [facility]
== END 2022-03-30 12:40 | disposition home or self-care (01) ==
LOC: PC 12:39
PROVIDERS: PCP Family Medicine; Visit Provider Preventive Medicine Occupational Medicine

== ENCOUNTER 2022-04-19 04:30 | Outpatient (CLI) | payer MEDICARE, OTHER, SELFPAY ==
[2022-04-19 13:01] LABS: CREATININE 1.2 mg/dL (0.70-1.30); Estimated GFR 71.42 (mL/min/1.73m2)
== END 2022-04-19 04:31 | disposition home or self-care (01) ==
LOC: LOS 04:30
PROVIDERS: PCP Family Medicine; Visit Provider Nurse Practitioner Family
DX: Z01.812 Encounter for preprocedural laboratory examination (principal); M47.812 Spondylosis without myelopathy or radiculopathy, cervical region; E11.9 Type 2 diabetes mellitus without complications
CPT/HCPCS: 82565

== ENCOUNTER 2022-04-21 01:16 | Outpatient (CLI) | payer MEDICARE, OTHER, SELFPAY ==
--- NOTE | 2022-04-21 10:15 | DI.MRI_ITS ---
Exam(s) MR CERVICAL SPINE WO EXAM: MR CERVICAL SPINE WO CLINICAL HISTORY: Increased neck pain M50.90CERVICAL DISC DISORDER M47.812 SPONDYLOSIS TECHNIQUE: Multiplanar multisequence MRI of the cervical spine was performed without intravenous con trast. COMPARISON: MR MRI - CERVICAL SPINE WO CONT from 09/21/[address] CHEST WO from 08/18/2021 FINDINGS: CERVICOMEDULLARY JUNCTION: Intact with no evidence of cerebellar tonsillar ectopia. No obvious abnor mality of the odontoid process. No evidence of Chiari 1 malformation. CERVICAL SPINAL CORD: There is no abnormal signal in the cervical spinal cord and no evidence of foca l cord atrophy nor focal cord swelling. OSSEOUS:There are no cervical fractures evident. No significant osseous lesions in the cervical vert ebrae. Cervical curvature is maintained. No reversal of the normal curvature evident. INDIVIDUAL LEVELS: C2-3: No disc herniation nor central canal stenosis. No foraminal stenosis. No facet arthropathy. C3-4: Mild disc space narrowing again noted, unchanged.There is relatively symmetrical annular bulgin g at this level again noted but this appears slightly less prominent than on the prior study. No dom inant focal disc herniation. Nevertheless, there is still effacement of the anterior aspect of the t hecal sac but not the spinal cord. There is mild central canal stenosis but no abnormal cord signal. There are mild degenerative changes in the facet joints. Does not appear to be significant foramin al stenosis at this level. C4-5: This level again exhibits relatively preserved disc height.Relatively symmetrical annular bulgi ng is again noted at this level, similar to previous, without a dominant disc protrusion. However, t here is effacement of the anterior thecal sac at this level. Mild central canal stenosis. There is no significant facet arthropathy at this level and there is no obvious foraminal stenosis evident on either side at this level. C5-6: This level again exhibits mild narrowing of the disc space. However, the previously present di sc herniation at this level is less evident on the present study. The posterior central focal disc h erniation seen at this level on the October 2018 study has decreased in size and there is presently no abnormal signal in the cervical spinal cord at this level. However, there is still subligamentous a nnular bulging with flattening of the thecal sac at this level and moderate central spinal canal sten osis evident at this level. Facet joints at this level appear relatively unremarkable without promin ent focal degenerative changes and there are no significant Luschka joint osteophytes. There is mild bilateral foraminal stenosis. C6-7: This level exhibits normal disc height and signal. There is again noted symmetrical posterior annular bulging at this level which effaces the anterior thecal sac and with slight indentation of th e cervical spinal cord at this level but with no obvious abnormal cord signal at this level. Mild-mo derate central canal stenosis. The facet joints at this level appear unremarkable. There is no sign ificant foraminal stenosis evident. C7-T1: No disc herniation nor central canal stenosis. No facet arthropathy.No foraminal stenosis. IMPRESSION: 1. Multilevel findings as described individually above. However, when compared to the prior MRI scan of October 2018 the size of the previously present central focal posterior disc herniation at C5-6 le meaghan has decreased. Nevertheless, there is still an element of central spinal canal stenosis at this level as well as at multiple other levels as described above. 2. There is only minimal facet arthropathy in the cervical spine and there is no prominent foraminal stenosis on either side throughout the length of the cervical canal. In addition, there are no promi nent Luschka joint osteophytes evident in the cervical region. 3. There is no abnormal signal evident in the cervical spinal cord. No evidence of focal cord atroph y nor focal cord swelling. No evidence of syringomyelia. No evidence of Chiari malformation. DATA REPOSITORY:
== END 2022-04-21 01:36 ==
LOC: DI 01:16
PROVIDERS: PCP Family Medicine; Visit Provider Nurse Practitioner Family
DX: M47.812 Spondylosis without myelopathy or radiculopathy, cervical region; M50.31 Other cervical disc degeneration, high cervical region; M50.321 Other cervical disc degeneration at C4-C5 level; M50.322 Other cervical disc degeneration at C5-C6 level
CPT/HCPCS: 72141

== ENCOUNTER → 2022-05-18 08:13 | Outpatient (BNVA) | payer MEDICARE, OTHER, SELFPAY | PROVIDERS: PCP Family Medicine; Referring Provider Family Medicine; Visit Provider Psychiatry & Neurology Neurology | DX: M48.061 Spinal stenosis, lumbar region without neurogenic claudication (principal); E11.42 Type 2 diabetes mellitus with diabetic polyneuropathy; Z79.4 Long term (current) use of insulin; I95.1 Orthostatic hypotension; R41.3 Other amnesia; G47.10 Hypersomnia, unspecified; G47.33 Obstructive sleep apnea (adult) (pediatric); G47.00 Insomnia, unspecified; F39 Unspecified mood [affective] disorder; M54.12 Radiculopathy, cervical region; I10 Essential (primary) hypertension; I73.9 Peripheral vascular disease, unspecified | CPT/HCPCS: 99215 ==

== ENCOUNTER 2022-05-30 02:20 | Outpatient (CLI) | payer MEDICARE, OTHER, SELFPAY ==
--- NOTE | 2022-05-30 07:00 | DI.MRI_ITS ---
Exam(s) MR BRAIN WO EXAM: MR BRAIN WO CLINICAL HISTORY: memory loss,change, r41.3 TECHNIQUE: Multiplanar multisequence MRI of the brain was performed. COMPARISON: No exams were available for comparison FINDINGS: CEREBRAL PARENCHYMA: There is no evidence of intracranial hemorrhage, mass effect, or shift of midline structures. There are no extra-axial fluid collections. Ventricles are not enlarged or shifted. There is no significant focal signal abnormality in the cerebellar hemispheres nor within the oziel, m idbrain, and thalami. There is a tiny focus signal abnormality in the right periventricular white matter-right frontal lobe , measuring 2 millimeters. This is not associated with hemorrhage or surrounding edema nor restricte d diffusion. Also similar appearing finding in the anterior left forceps frontal white matter, also not associated with hemorrhage nor surrounding edema nor restricted diffusion. There is no significant focal signal abnormality evident on diffusion imaging to suggest acute ischem ic event. SWI reveals no evidence of microhemorrhages. PITUITARY GLAND: Pituitary gland appears small. Possible component of mild empty sella syndrome FLOW VOIDS: The expected flow void are noted. No evidence of obvious aneurysm nor obvious vascular ma lformation. PARANASAL SINUSES: The visualized paranasal sinuses appear unremarkable. No obvious finding frontal s inuses are not developed. Some fluid is seen in left mastoid air cells. ORBITS: No obvious findings. IMPRESSION: No significant acute intracranial findings on this noninfused MRI scan. There are few small nonspecific foci of white matter signal abnormality in the frontal lobes bilatera lly, not associated with hemorrhage, surrounding edema, nor restricted diffusion on DWI. These are n onspecific findings white matter. Somewhat small pituitary gland, possibly related to an element of mild empty sella syndrome. There is fluid in left-sided mastoid air cells. Recommend follow-up MRI scan in 1 year, earlier if clinically indicated DATA REPOSITORY:
== END 2022-05-30 02:40 ==
LOC: DI 02:21
PROVIDERS: PCP Family Medicine; Visit Provider Psychiatry & Neurology Neurology
DX: R41.3 Other amnesia (principal); R90.82 White matter disease, unspecified
CPT/HCPCS: 70551

== ENCOUNTER → 2022-06-02 10:26 | Outpatient (BNVA) | payer MEDICARE, OTHER, SELFPAY | PROVIDERS: PCP Family Medicine; Referring Provider Family Medicine; Visit Provider Internal Medicine Cardiovascular Disease | DX: G47.33 Obstructive sleep apnea (adult) (pediatric) (principal); F17.210 Nicotine dependence, cigarettes, uncomplicated; I25.10 Atherosclerotic heart disease of native coronary artery without angina pectoris; Z98.61 Coronary angioplasty status | CPT/HCPCS: 99214 ==

== ENCOUNTER 2022-06-22 02:54 | Outpatient (CLI) | payer MEDICARE, OTHER, SELFPAY ==
[2022-06-22 09:21] LABS: T4 9.6 ug/dL (4.7-13.3)
== END 2022-06-22 02:55 | disposition home or self-care (01) ==
LOC: LBO 02:54
PROVIDERS: PCP Family Medicine; Visit Provider Family Medicine
DX: E11.9 Type 2 diabetes mellitus without complications (principal); E23.6 Other disorders of pituitary gland
CPT/HCPCS: 36415; 82533; 84436

== ENCOUNTER → 2022-07-20 10:13 | Outpatient (BNVA) | payer MEDICARE, OTHER, SELFPAY | PROVIDERS: PCP Family Medicine; Referring Provider Family Medicine; Visit Provider Psychiatry & Neurology Neurology | DX: M54.50 Low back pain, unspecified (principal); G89.29 Other chronic pain; E11.42 Type 2 diabetes mellitus with diabetic polyneuropathy; M48.061 Spinal stenosis, lumbar region without neurogenic claudication; I95.1 Orthostatic hypotension; G47.33 Obstructive sleep apnea (adult) (pediatric); F39 Unspecified mood [affective] disorder; I25.2 Old myocardial infarction; G47.10 Hypersomnia, unspecified; I73.9 Peripheral vascular disease, unspecified; R41.3 Other amnesia | CPT/HCPCS: 99214 ==

== ENCOUNTER 2022-10-04 09:47 | Emergency (ER) | payer MEDICARE, OTHER, SELFPAY ==
[2022-10-04] VITALS (15 sets, daily range): BP systolic 104–133; BP diastolic 55–81; PULSE 46–64; RESP 10–23; TEMP 37; O2SAT 92–99
--- NOTE | 2022-10-04 09:45 | RT.EKG_ITS ---
APPROVED REPORT Exam: Resting ECG Reason for Exam: chest pain Patient Location: E HR:64 bpm ECG Measurements Heart Rate 64 AXIS FL 192 P 54 QRSd 94 QRS 60 QT 422 T 37 QTc 434 Conclusion Sinus rhythm...normal P axis, V-rate 60- 99 sinus rhythm, normal axis, normal intervals, nonischemic
--- NOTE | 2022-10-04 10:15 | DI.RAD_ITS ---
Exam(s) XR PORTABLE CHEST AP EXAM: XR PORTABLE CHEST AP CLINICAL HISTORY: chest pain. TECHNIQUE: 2D digital imaging was performed. COMPARISON: CR,XR XR PORTABLE CHEST AP from 08/06/2019 FINDINGS: Single AP portable view. Heart size is upper normal. The mediastinum is not widened. Lungs are clear. No infiltrates nor obvious pleural effusions. IMPRESSION: No acute pulmonary findings on this single AP portable view of the chest. DATA REPOSITORY: RADIATION DOSE DELIVERED:
[2022-10-04] MEDS: Aspirin 81 MG CHEW 243 MG CH (10:24)
[2022-10-04 10:32] LABS: Abs Immature Grans 0.04 10^3/uL (0.0-0.06); Absolute Basophil Count 0.06 10^3/uL (0.0-0.2); Absolute Eosinophil Count 0.29 10^3/uL (0.0-0.7); Absolute Lymphocyte Count 2.29 10^3/uL (1.2-3.4); Absolute Monocyte Count 0.93 10^3/uL (0.1-0.8); Absolute Neutrophil Count 5.91 10^3/uL (1.2-6.7); Basophils % 0.6; HGB 16.8 g/dL (13.5-17.5); Immature Grans % 0.4; Lymphocytes % 24.1; MCH 29.2 pg (27.0-33.0); MCHC 32.9 % (32.0-36.0); MCV 89 fL (80-95); MPV 9.6 fL (8.0-11.0); Monocytes % 9.8; Neutrophils % 62.1; Platelet Count 239 10^3/uL (130-400); RBC 5.76 10^6/uL (4.36-5.78); RDW 14.3 % (11.8-14.1); RDW-SD 45.1 fL; WBC 9.52 10^3/uL (4.4-10.8)
--- NOTE | 2022-10-04 10:37 | ED.GENADUL_ITS ---
Discharge Plan Disposition Patient Disposition: Transfer-Acute Inpatient Care Specific Acute Inpt Facility: [facility] Discharge Details Chief Complaint: Chest Pain Clinical Impression: Angina pectoris, unstable, CARLOTA (obstructive sleep apnea), CAD S/P percutaneous coronary angioplasty Primary Care Provider: Karen Barbosa ED Provider: Nga Barron Home Meds and New Rx's Prescriptions: No Action vitamin B complex [B Complex-Vitamin B12] Tablet 1 tab PO DAILY metformin 1,000 mg tablet 1,000 mg PO BID Qty: 180 3RF Humalog KwikPen Insulin 200 unit/mL (3 mL) insulin pen 40 unit subcut QACHS Qty: 18 12RF torsemide 60 mg tablet 60 mg PO DAILY Qty: 90 4RF (DME) pen needle, diabetic [Comfort EZ Pen [place]] 31 gauge x 1/4 needle See Rx Instructions .ROUTE .MEDSUPPLY Qty: 500 4RF Rx Instructions: Five times daily nitroglycerin 0.4 mg tablet, sublingual See Rx Instructions .ROUTE .COMPLEX Qty: 100 3RF Dose Instruction: PLACE ONE TABLET UNDER THE TONGUE EVERY 5 MINUTES FOR UP TO 3 DOSES NEEDED FOR CHEST PAIN. IF CHEST PAIN STILL PERSISTS CONTACT 911 Rx Instructions: PLACE ONE TABLET UNDER THE TONGUE EVERY 5 MINUTES FOR UP TO 3 DOSES NEEDED FOR CHEST PAIN. IF CHEST PAIN STILL PERSISTS CONTACT 911 metoprolol succinate 100 mg tablet extended release 24 hr 100 mg PO DAILY Qty: 90 3RF atorvastatin 80 mg tablet 80 mg PO QHS Qty: 90 3RF albuterol sulfate 90 mcg/actuation HFA aerosol inhaler 2 puff inhalation Q6H PRN (Reason: shortness of breath or wheezing) Qty: 8.5 4RF insulin degludec 200 unit/mL (3 mL) insulin pen 80 unit subcut BID Qty: 36 3RF (DME) Dexcom G7 Sensor Device See Rx Instructions .Route Qty: 1 12RF Rx Instructions: As directed Trelegy Ellipta 200-62.5-25 mcg blister with device 1 inh inhalation DAILY Qty: 60 4RF folic acid 1 mg tablet 1 mg PO DAILY Qty: 90 4RF aspirin [Aspir-81] 81 MG tablet,delayed release (DR/EC) 81 mg PO DAILY Patient Comments: 08-28- per [facility]. -hb acetaminophen 325 mg tablet 650 mg PO Q6H PRN empagliflozin 25 mg tablet 25 mg PO DAILY Qty: 90 3RF pantoprazole 40 mg tablet,delayed release (DR/EC) 40 mg PO BID Qty: 180 3RF Discharge Data Discharge Date/Time-TO BE ENTERED AT DEPARTURE: 10/04/22 16:09 Medical Decision Making This 56-year-old gentleman presents with chest pain since 7 AM this morning EKG is baseline for patient as this is troponin, his labs show CKD, not significantly changed from baseline, 1.8 when compared to prior, last 1.2, prior 1.6 Chest x-ray does not show evidence of acute abnormality, reviewed last coronary catheterization performed in 2020 with 25% stenosis to the circumflex and 40% stenosis to LAD 2 out of 10 chest pain increasing to 4 out of 10, repeat EKG does not show acute abnormality at this time Case discussed with Gonzalo Chowdary, cardiology at [facility] and they will accept patient to their care, recommends Plavix load, received 325 of aspirin upon arrival, and will initiate heparin bolus and infusion, discussed risk associated 3 EKGs were performed without acute change, 2 negative troponins Patient has been accepted pending bed placement at [facility] at [address] Heard's care Patient's blood pressure is 115/49, therefore no additional nitroglycerin will be given at this time HPI General Date/Time Provider Initiated Documentation: 10/04/22 09:48 . HPI Narrative: This 56-year-old male presents with report of chest pain that started at 7 AM. History of 3 stents in the past, last was placed in 2020 per patient. Took 3 nitroglycerin this morning without alleviation of pain and 81 mg of aspirin without complete relief in symptoms. Nitroglycerin usually alleviates patient's symptoms. States his pain has been present since 7:00, started while he was drinking coffee. States he felt very tired for the past couple months. Describes the pain as a family pressure in the center of his chest, slightly improved after nitroglycerin but not resolved completely per patient. Denies any recent flights, surgeries, long drives, history of coagulopathy. Related Data Home Medications Medication Instructions Recorded Confirmed aspirin 81 mg tablet,delayed 81 mg PO DAILY 08/28/17 10/04/22 release (Aspir-) acetaminophen 325 mg tablet 650 mg PO Q6H PRN 06/27/19 10/04/22 vitamin B complex (B 1 tab PO DAILY 08/19/19 10/04/22 Complex-Vitamin B12 tablet) metformin 1,000 mg tablet 1,000 mg PO BID #180 tab-caps 02/23/22 10/04/22 insulin lispro 200 unit/mL (3 mL) 40 unit (0.2 mL) subcut QACHS #18 04/20/22 10/04/22 subcutaneous pen (Humalog KwikPen mL U-200 Insulin) empagliflozin 25 mg tablet 25 mg PO DAILY #90 tabs 06/07/22 10/04/22 pantoprazole 40 mg tablet,delayed 40 mg PO BID #180 tabs 08/04/22 10/04/22 release albuterol sulfate 90 mcg/actuation 2 puff inhalation Q6H PRN 09/30/22 10/04/22 aerosol inhaler shortness of breath or wheezing #8.5 grams atorvastatin 80 mg tablet 80 mg PO QHS #90 tabs 09/30/22 10/04/22 blood-glucose sensor (Dexcom G7 #1 ea 09/30/22 09/30/22 Sensor device) fluticasone fur. 200 mcg-umeclid 1 inh inhalation DAILY #60 ea 09/30/22 10/04/22 62.5 mcg-vilant 25 mcg inhalat.powder (Trelegy Ellipta) folic acid 1 mg tablet 1 mg PO DAILY #90 tabs 09/30/22 10/04/22 insulin degludec 200 unit/mL (3 80 unit (0.4 mL) subcut BID #36 mL 09/30/22 10/04/22 mL) subcutaneous pen metoprolol succinate 100 mg 100 mg PO DAILY #90 tabs 09/30/22 10/04/22 tablet,extended release 24 hr nitroglycerin 0.4 mg sublingual See Rx Instructions .Route 09/30/22 10/04/22 tablet .COMPLEX #100 tabs pen needle, diabetic 31 gauge x #500 ea 09/30/22 09/30/2203/16 (Comfort EZ Pen [place]) torsemide 60 mg tablet 60 mg PO DAILY #90 tabs 09/30/22 10/04/22 Previous Rx's Medication Instructions Recorded metformin 1,000 mg tablet 1,000 mg PO BID #180 tab-caps 02/23/22 insulin lispro 200 unit/mL (3 mL) 40 unit (0.2 mL) subcut QACHS #18 04/20/22 subcutaneous pen (Humalog KwikPen mL U-200 Insulin) empagliflozin 25 mg tablet 25 mg PO DAILY #90 tabs 06/07/22 pantoprazole 40 mg tablet,delayed 40 mg PO BID #180 tabs 08/04/22 release albuterol sulfate 90 mcg/actuation 2 puff inhalation Q6H PRN 09/30/22 aerosol inhaler shortness of breath or wheezing #8.5 grams atorvastatin 80 mg tablet 80 mg PO QHS #90 tabs 09/30/22 blood-glucose sensor (Novopyxis G7 #1 ea 09/30/22 Sensor device) fluticasone fur. 200 mcg-umeclid 1 inh inhalation DAILY #60 ea 09/30/22 62.5 mcg-vilant 25 mcg inhalat.powder (Trelegy Ellipta) folic acid 1 mg tablet 1 mg PO DAILY #90 tabs 09/30/22 insulin degludec 200 unit/mL (3 80 unit (0.4 mL) subcut BID #36 mL 09/30/22 mL) subcutaneous pen metoprolol succinate 100 mg 100 mg PO DAILY #90 tabs 09/30/22 tablet,extended release 24 hr nitroglycerin 0.4 mg sublingual See Rx Instructions .Route 09/30/22 tablet .COMPLEX #100 tabs pen needle, diabetic 31 gauge x #500 ea 09/30/2203/16 (Comfort EZ Pen [place]) torsemide 60 mg tablet 60 mg PO DAILY #90 tabs 09/30/22 Allergies Allergy/AdvReac Type Severity Reaction Status Date / Time venlafaxine AdvReac Severe Nausea Verified 09/30/22 07:38 doxycycline AdvReac Intermediate Cold Verified 09/30/22 07:38 Chills, made him sick. liraglutide [From Victoza] AdvReac Intermediate GI upset Verified 09/30/22 07:38 General Stated Complaint: Chest Pain DIANE: 2 PFSH All Active Problems (Updated 10/05/22 @ 08:38 by ISABELLE Dailey) Depression with anxiety (Chronic) resistant to treatment with antidepressants CARLOTA (obstructive sleep apnea) (Chronic) Hyperlipidemia (Chronic) CAD S/P percutaneous coronary angioplasty (Chronic 08/28/17) Smoker (Acute) HTN (hypertension) (Chronic) GERD (gastroesophageal reflux disease) (Acute) Diabetic peripheral neuropathy (Acute) Colon polyp, hyperplastic (Acute ~04/2020) 04/13/20 HP x19 Serrated adenoma of colon (Acute ~04/2020) 04/13/20 Sessile serrated adenomax2 Tubular adenoma (Acute ~04/2020) 04/13/20 TAx5 Actinic keratosis due to exposure to sunlight (Acute) BPH loc w urin obs/LUTS (Acute) Erectile dysfunction (Acute) Bilateral lower extremity edema (Chronic) left > right; felt to be venous insufficiency, not wearing compression. 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, 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 Cervical disc disease Chronic left-sided low back pain with left-sided sciatica (12/03/15) Chronic neck pain Chronic obstructive lung disease Chronic pain syndrome (09/30/16) 08/19/16-CONTROLLED SUBSTANCE AGREEMENT-APPROVED FOR 3 MONTHS History of Diaz's esophagus History of dysphagia Parastomal hernia PUD (peptic ulcer disease) Spondylosis of cervical region without myelopathy or radiculopathy (04/17/15) Thoracic spine pain (07/17/15) Tubular adenoma of colon (02/18/14) Surgical History [place] [facility] [place] History of esophagogastroduodenoscopy History of incisional hernia repair with mesh left shoulder repair [place] Fundoplication right ulnar graft Status post carpal tunnel release Status post inguinal hernia repair Status post Luis[place] fundoplication Status post vasectomy Family History Father , age 74 Diabetes Alcohol abuse sober in later years Essential hypertension Hyperlipidemia Cancer Mother , age 72 Diabetes Essential hypertension Heart disease Hyperlipidemia Mental disorder pt thinks she has bipolar Depression Brother Hyperlipidemia Depression Diabetes Heart disease Hypertension Sister Alcohol abuse Depression Stroke Substance abuse Sister Depression Heart disease Hypertension Brother Hyperlipidemia Hypertension Brother , age 29 Alcohol abuse Depression Substance abuse Social History Smoking/Tobacco Use Status: Current every day Tobacco Type: cigarettes Smoking packs per day: 2 Smoking cigarettes per day: 40.0 Tobacco: How many years used: 40 Quit status: considering quitting Second Hand Exposure: Yes Counseling given: provider counseling, support medications and counseling >10 minutes Smoking risk assessment performed?: Yes Alcohol Intake: current Alcohol Intake frequency: a few times a month Alcohol type: hard liquor Drug use: Never Substance use type: does not use Caregiver/Support person: No Household members: spouse and family Housing: house Communication Needs: None Do you need help understanding health information?: Rarely 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 Pets and animals: Yes Pets and animals: dog(s) Sexually active: No Do you think of yourself as: straight/heterosexual Current gender identity: male What is your relationship status?: How often do you talk on the phone with friends or family?: once per week How often do you get together with friends or relatives?: once per week How often do you attend judaism or adventist services?: decline to answer Do you belong to any clubs or organized social groups?: no Panel score (0-1 are the most socially isolated patients): 1 Duration: decline to answer Frequency: decline to answer Mayela/Islam: No preference Special mayela needs: No Seatbelt use: always Helmet use: Yes Helmet use: always Drive intox or ride w/intox truck driver teamster: No Do you feel safe at home: Yes Do you feel safe in your relationship?: Yes Course Vital Signs Vital signs: Vital Signs Temperature 37 C 10/04/22 09:54 Pulse 62 10/04/22 09:54 Respiratory Rate 18 10/04/22 09:54 Blood Pressure 133/81 10/04/22 09:54 Pulse Oximetry 99 07/25/23 09:54 Temperature 37 C 10/04/22 09:54 Temperature Source Skin 10/04/22 09:54 Pulse 62 10/04/22 09:54 Respiratory Rate 18 10/04/22 09:54 Respiratory Effort Normal 10/04/22 10:03 Blood Pressure 133/81 10/04/22 09:54 Blood Pressure Position Sitting 10/04/22 09:54 Pulse Oximetry 99 10/04/22 09:54 Oxygen Delivery Method Room Air 10/04/22 09:54 Oxygen Flow Rate 0 10/04/22 09:54 Pain Level 2 10/04/22 09:54 Lab/Test Results Lab/Test Results: Laboratory Tests Range/Units 10/04/22 10:03 WBC (4.4-10.8) 10^3/uL 9.52 RBC (4.36-5.78) 10^6/uL 5.76 Hgb (13.5-17.5) g/dL 16.8 Hct (40.0-50.0) % 51.0 H MCV (80-95) fL 89 MCH (27.0-33.0) pg 29.2 MCHC (32.0-36.0) % 32.9 RDW (11.8-14.1) % 14.3 H Plt Count (130-400) 10^3/uL 239 MPV (8.0-11.0) fL 9.6 Immature Gran % 0.4 Neutrophils % 62.1 Lymphocytes % 24.1 Monocytes % 9.8 Eosinophils % 3.0 Basophils % 0.6 Nucleated RBC % (0.0-0.3) % 0.0 Absolute Neutrophils (1.2-6.7) 10^3/uL 5.91 Absolute Lymphocytes (1.2-3.4) 10^3/uL 2.29 Absolute Monocytes (0.1-0.8) 10^3/uL 0.93 H Absolute Eosinophils (0.0-0.7) 10^3/uL 0.29 Absolute Basophils (0.0-0.2) 10^3/uL 0.06 Critical Care Time Critical Care Time Attestation: Has a 45 minutes of critical care time secondary to treatment of unstable angina with IV morphine, nitroglycerin, loading dose of aspirin and Plavix, heparin bolus and infusion, telemetry monitoring, diagnostic imaging interpretation and transfer to [facility] for cardiology assessment likely cardiac catheterization
[2022-10-04 10:53] LABS: ALT 38 U/L (16-63); AST 22 U/L (15-37); Albumin 3.6 g/dL (3.4-5.0); Alkaline Phosphatase 129 U/L (46-116); Anion Gap 6.6 mmol/L (3-11); BUN 23 mg/dL (7-18); Bilirubin, Total 0.8 mg/dL (0.2-1.0); CO2 35.4 mmol/L (21.0-32.0); CREATININE 1.8 mg/dL (0.70-1.30); Calcium 9.1 mg/dL (8.5-10.1); Chloride 100 mmol/L (98-107); Glucose 158 mg/dL (74-106); Lipase 48 U/L (16-77); NT-proBNP 49 pg/mL (<300); Sodium 142 mmol/L (136-145); Total Protein 7.6 g/dL (6.4-8.2); Troponin I < 50 ng/L (<or=60)
--- NOTE | 2022-10-04 11:15 | RT.EKG_ITS ---
APPROVED REPORT Exam: Resting ECG Reason for Exam: chest pain Patient Location: E HR:56 bpm ECG Measurements Heart Rate 56 AXIS NJ 201 P 46 QRSd 96 QRS 58 QT 451 T 39 QTc 436 Conclusion Sinus bradycardia...rate< 60 sinus tessa normal axis, normal intervals, non ischemic
[2022-10-04] MEDS: MORPHine 10 MG/ML VIAL 2 MG IVP ×2 (11:47→15:51)
[2022-10-04] MEDS: Heparin in 0.45% NaCl 25,000 UNIT/250 ML BAG 10 UNIT IV (12:08)
[2022-10-04] MEDS: Clopidogrel 300 MG TAB 600 MG PO (12:10)
--- NOTE | 2022-10-04 12:30 | RT.EKG_ITS ---
APPROVED REPORT Exam: Resting ECG Reason for Exam: chest pain Patient Location: E HR:58 bpm ECG Measurements Heart Rate 58 AXIS MS 201 P 39 QRSd 97 QRS 55 QT 450 T 27 QTc 442 Conclusion Sinus bradycardia...rate< 60 sinus tessa, normal axis, normal intervals, non ischemic
[2022-10-04] MEDS: FAMOTIDINE 20 MG in Normal Saline 100 ML 400 MG IVPB (13:24)
[2022-10-04] MEDS: Nicotine 21 MG/24 HR PATCH TD (13:25)
[2022-10-04 13:42] LABS: Troponin I < 50 ng/L (<or=60)
[2022-10-04] MEDS: Dextrose 25%-Water 10 ML SYR 5 ML IVP (14:24)
--- NOTE | 2022-10-04 15:30 | RT.EKG_ITS ---
APPROVED REPORT Exam: Resting ECG Reason for Exam: chest pain Patient Location: E HR:57 bpm ECG Measurements Heart Rate 57 AXIS NJ 198 P 69 QRSd 100 QRS 66 QT 461 T 32 QTc 449 Conclusion Sinus bradycardia...rate< 60 sinus rhythm, normal axis, normal intervals, non ischemic
[2022-10-04 15:58] LABS: PTT Activated 38.1 sec (21.5-31.9); Prothrombin Time 10.4 sec (9.3-11.0)
--- NOTE | 2022-10-04 19:11 | NUR.NOTE ---
Nursing Note: Transferred patient [place] [facility] [place] [facility]. Brought Fentanyl 100mcg with me for his CP if needed. Was not needed wasted 100mcg in pyxis
--- NOTE | 2022-10-07 15:13 | NUR.NOTE ---
Accessed chart to determine orders for EKG and to determine whether or not one needs to be cancelled. Nursing Note:
--- NOTE | 2022-10-07 15:14 | NUR.NOTE ---
Accessed chart to determine orders for EKG and to determine whether or not one needs to be cancelled. Nursing Note:
== END 2022-10-04 16:09 | disposition short-term general hospital (02) ==
PROVIDERS: Emergency Provider Physician Assistant; PCP Family Medicine
DX: I25.10 Atherosclerotic heart disease of native coronary artery without angina pectoris (principal); G47.33 Obstructive sleep apnea (adult) (pediatric); R07.9 Chest pain, unspecified; N18.9 Chronic kidney disease, unspecified
CPT/HCPCS: 36415; 36416; 80053; 82947; 82962; 83690; 93005; 96365; 96367; 99291; 71045; 83880; 84484; 85025; 85610; 85730; 93010; J2270

== ENCOUNTER → 2022-10-18 10:33 | Outpatient (BNVA) | payer MEDICARE, OTHER, SELFPAY | PROVIDERS: PCP Family Medicine; Referring Provider Family Medicine; Visit Provider Internal Medicine Cardiovascular Disease | DX: I25.10 Atherosclerotic heart disease of native coronary artery without angina pectoris (principal); Z98.61 Coronary angioplasty status; Z72.0 Tobacco use; I10 Essential (primary) hypertension; E11.9 Type 2 diabetes mellitus without complications | CPT/HCPCS: 99214 ==

== ENCOUNTER → 2022-10-19 02:08 | Outpatient (CLI) | payer MEDICARE, OTHER, SELFPAY ==
--- NOTE | 2022-10-19 08:15 | DI.CTLCSR_ITS ---
Exam(s) CT CHEST LUNG CANCER SCREEN EXAM: CT CHEST LUNG CANCER SCREEN CLINICAL HISTORY: Screening for lung cancer,CURRENT SMOKER, F17.210 TECHNIQUE: Imaging Protocol: Axial computed tomography images with coronal and sagittal reformatted images were created and reviewed. Low dose screening protocol. COMPARISON: CT CT CHEST WO from 08/18/2021 CR XR PORTABLE CHEST AP from 10/04/2022 FINDINGS: Tracheobronchial tree: No bronchiectasis or mucus plugging.. Mediastinum and Ariane: No dominant adenopathy or fluid collection. Pulmonary parenchyma: No consolidation or dominant measurable mass. [id number] diffuse emphysem atous changes. Lung Nodules: No suspicious pulmonary nodules. Pleura: No effusion. No pneumothorax. Heart: The heart is not dilated. Severe coronary artery calcifications are seen. Aorta: Thoracic aorta non-dilated. Pulmonary arteries: Dilatation of the pulmonary trunk to 3.7 cm. Prominent right and left main pulmo nary arteries. Upper abdomen: Small hiatal hernia. Bones: Unremarkable for age. Soft Tissues: Unremarkable. IMPRESSION: No suspicious pulmonary nodules. Lung RADS Cat 1 - Negative: No nodules and definitely benign nodules Lung-RADS 1.0 CATEGORIES: Category 0 - Prior chest CT exam(s) being located for comparison. Category 1 - Annual screening in 12 months. No nodules or definitely benign nodules. Category 2 - Annual screening in 12 months. Benign appearance. Nodules with low likelihood of becomin g active cancer. Category 3 - 6-month follow-up. Probably benign. Short-term follow-up suggested. Nodules with low lik elihood of becoming active cancer. Category 4A - 3-month follow-up and CT/PET if >8 mm in size. Suspicious finding. Findings which requi re additional testing. Category 4B - Findings which require additional testing and tissue sampling. Category 4X - Category 3 or 4 nodules with additional features or imaging findings that increases the suspicion of malignancy. Modifier S- Potentially clinically significant findings (non lung cancer) RADIATION DOSE DELIVERED: 96.09mGy.cm Total DLP DATA REPOSITORY: All CT scans at this facility are submitted to the National Radiology Data Registry (NRDR) Dose Index Registry (DIR) with the [employer] (ACR). RADIATION OPTIMIZATION: All CT scans at this facility use at least one of these dose optimization te chniques: automated exposure control; mA and/or kV adjustment per patient size (includes targeted exa ms where dose is matched to clinical indication); or iterative reconstruction.
== END ==
PROVIDERS: PCP Family Medicine; Visit Provider Family Medicine
DX: F17.210 Nicotine dependence, cigarettes, uncomplicated (principal); Z12.2 Encounter for screening for malignant neoplasm of respiratory organs
CPT/HCPCS: 71271

== ENCOUNTER → 2022-11-23 13:36 | Outpatient (BNVA) | payer MEDICARE, OTHER, SELFPAY | PROVIDERS: PCP Family Medicine; Visit Provider Psychiatry & Neurology Neurology | DX: G47.10 Hypersomnia, unspecified (principal); I95.1 Orthostatic hypotension; E11.42 Type 2 diabetes mellitus with diabetic polyneuropathy; M50.90 Cervical disc disorder, unspecified, unspecified cervical region; I73.9 Peripheral vascular disease, unspecified; R41.3 Other amnesia | CPT/HCPCS: 99214 ==

== ENCOUNTER 2022-12-12 21:59 | Outpatient (REF) | payer MEDICARE, OTHER, SELFPAY ==
[2022-12-13 01:20] LABS: Abs Immature Grans 0.08 10^3/uL (0.0-0.06); Absolute Monocyte Count 1.48 10^3/uL (0.1-0.8); Basophils % 0.5; Eosinophils % 1.6; HCT 42.8 % (40.0-50.0); HGB 13.6 g/dL (13.5-17.5); Immature Grans % 0.6; Lymphocytes % 8.4; MCH 29.4 pg (27.0-33.0); MCHC 31.8 % (32.0-36.0); MCV 93 fL (80-95); MPV 10.3 fL (8.0-11.0); Monocytes % 11.6; Neutrophils % 77.3; Platelet Count 208 10^3/uL (130-400); RBC 4.62 10^6/uL (4.36-5.78); RDW 15.8 % (11.8-14.1); RDW-SD 54.1 fL; WBC 12.79 10^3/uL (4.4-10.8)
[2022-12-13 01:34] LABS: ALT 44 U/L (16-63); AST 40 U/L (15-37); Albumin 2.8 g/dL (3.4-5.0); Alkaline Phosphatase 407 U/L (46-116); Anion Gap 8.2 mmol/L (3-11); BUN 23 mg/dL (7-18); CO2 29.8 mmol/L (21.0-32.0); CREATININE 1.8 mg/dL (0.70-1.30); Chloride 102 mmol/L (98-107); Estimated GFR 43.63 (mL/min/1.73m2); Glucose 93 mg/dL (74-106); Potassium 4.1 mmol/L (3.5-5.1); Sodium 140 mmol/L (136-145); Total Protein 6.5 g/dL (6.4-8.2)
[2022-12-13 01:36] LABS: Absolute Basophil Count 0.06 10^3/uL (0.0-0.2); Absolute Lymphocyte Count 1.07 10^3/uL (1.2-3.4); Absolute Neutrophil Count 9.89 10^3/uL (1.2-6.7)
[2022-12-13 01:46] LABS: Bilirubin Negative (Negative); Blood Moderate (Negative); Clarity Sl Cloudy (Clear); Glucose >=1000 mg/dL (Negative); Ketones Negative (Negative); Leukocyte Esterase Trace (Negative); Nitrite Positive (Negative); Urobilinogen 0.2 mg/dL (Up to 0.2); pH 5.5 (5-8)
[2022-12-13 01:56] LABS: Bacteria Moderate HPF (Negative); Crystals Negative HPF (Negative); Epithelial Cells Few HPF (Negative); WBC >50 HPF (0-5)
[2022-12-13 01:57] LABS: C & S Indicated? Yes; Mucus Negative (Negative)
== END 2022-12-12 22:00 | disposition home or self-care (01) ==
LOC: LBN 21:59
PROVIDERS: PCP Family Medicine; Visit Provider Nurse Practitioner Family
DX: N39.0 Urinary tract infection, site not specified (principal); I10 Essential (primary) hypertension; E11.9 Type 2 diabetes mellitus without complications; R30.0 Dysuria; R53.83 Other fatigue; M79.18 Myalgia, other site
CPT/HCPCS: 80053; 87077; 81003; 81015; 85025; 87086; 87186

== ENCOUNTER → 2022-12-13 00:34 | Outpatient (CLI) | payer MEDICARE, OTHER, SELFPAY ==
--- NOTE | 2022-12-13 06:30 | DI.CT_ITS ---
Exam(s) CT ABDOMEN PELVIS WO/W EXAM: CT ABDOMEN PELVIS WO/W CLINICAL HISTORY: Pylonephritis, lower abdominal/pelvic pain,UTI,N39.0. TECHNIQUE: Imaging Protocol: Axial computed tomography images with coronal and sagittal reformatted images were created and reviewed. Images were performed from the lung bases through the ischial tuberosities before IV contrast and fol lowing IV contrast using a 70 second delay, followed by 7 minutes delayed images. CONTRAST MATERIAL: Intravenous: Omnipaque 350 Contrast volume:100 cc Oral: no COMPARISON: CT CT ABD AORTA CTA W RUNOFF from 02/02/2022 FINDINGS: ABDOMEN: Lung Bases: Normal where visualized. Small hiatal hernia. Surgical clips near the GE junction. Liver: Mild fatty infiltration. No measurable mass. Gallbladder and biliary tract: No radiodense calculus or dilation. Pancreas: Normal density, no abnormal calcifications or inflammatory process. Spleen: Normal. Kidneys: Perinephric stranding, greater on the left. Left kidney appears mildly edematous and shows patchy perfusion. No discrete perinephric collection. Normal size, contour and axis. No radiodense stones or obstructive uropathy. No suspicious masses seen. Adrenal glands: No masses seen. Lymph nodes: Within normal limits. Abdominal Aorta: Abdominal portion non-dilated. Wcrd-[id number] atherosclerotic changes. Soft tissues: Fatty containing umbilical hernia. Additional fatty hernia above the level of the umbi licus toward the left. PELVIS: Bladder: Not well distended. Mild diffuse wall thickening. No evidence of a mass.No evidence of calc taryn. Bowel: No obstruction or bowel wall thickening. Appendix normal. Peritoneal cavity: No ascites, collection or mesenteric inflammatory response. Soft tissues: Minimal amount of fat in the inguinal canals. Bones: Unremarkable for age.. Reproductive organs: Unremarkable for age.. IMPRESSION: Edematous appearing left kidney with mild perinephric stranding and consistent with pyelonephritis. No evidence of stones or obstruction. Mild bladder wall thickening could indicate cystitis versus under distension. RADIATION DOSE DELIVERED: 4,574.15mGy.cm Total DLP DATA REPOSITORY: All CT scans at this facility are submitted to the National Radiology Data Registry (NRDR) Dose Index Registry (DIR) with the [employer] (ACR). RADIATION OPTIMIZATION: All CT scans at this facility use at least one of these dose optimization te chniques: automated exposure control; mA and/or kV adjustment per patient size (includes targeted exa ms where dose is matched to clinical indication); or iterative reconstruction.
[2022-12-13] MEDS: Normal Saline - Diluent 50 ML VIAL IJ (08:11)
[2022-12-13] MEDS: Omnipaque 350 MG/ML 500 ML BTL-Imaging package IJ (08:12)
[2022-12-13] MEDS: Normal Saline Flush 10 ML SYR IVP (08:14)
== END ==
PROVIDERS: PCP Family Medicine; Visit Provider Nurse Practitioner Family
DX: N10 Acute pyelonephritis
CPT/HCPCS: 74178

== ENCOUNTER → 2022-12-14 12:22 | Outpatient (BNVA) | payer MEDICARE, OTHER, SELFPAY | PROVIDERS: PCP Family Medicine; Referring Provider Family Medicine; Visit Provider Psychiatry & Neurology Neurology | DX: G56.22 Lesion of ulnar nerve, left upper limb (principal); G56.03 Carpal tunnel syndrome, bilateral upper limbs; M54.50 Low back pain, unspecified; I95.1 Orthostatic hypotension; G47.10 Hypersomnia, unspecified; R41.3 Other amnesia; G47.00 Insomnia, unspecified; F39 Unspecified mood [affective] disorder; I73.9 Peripheral vascular disease, unspecified; E11.42 Type 2 diabetes mellitus with diabetic polyneuropathy | CPT/HCPCS: 95910; 99214 ==

== ENCOUNTER → 2022-12-16 01:00 | Outpatient (CLI) | payer MEDICARE, OTHER, SELFPAY ==
--- NOTE | 2022-12-16 06:45 | DI.US_ITS ---
Exam(s) US RENAL EXAM: US RENAL CLINICAL HISTORY: decreased urinary out put,UTI,N39.0,N18.31, CHRONIC KIDNEY DISEASE. TECHNIQUE: Coronado scale, color and spectral Doppler were used. COMPARISON: CT CT ABDOMEN PELVIS WO/W from 12/13/2022 FINDINGS: Renal size in cm: Right: 12.0 x 6.0 x 5.6 left: 11.8 x 5.1 x 6 0 Echogenicity: Normal Hydronephrosis: No Cyst or mass: No Nephrolithiasis: No Bladder:Normal left ureteral jet normal. Right ureteral jet poorly visualized. Prevoid vol:311 cc Postvoid vol: 7 cc IMPRESSION: No evidence of hydronephrosis. No evidence of perinephric collection. DATA REPOSITORY:
== END ==
PROVIDERS: PCP Family Medicine; Visit Provider Nurse Practitioner Family
DX: E11.22 Type 2 diabetes mellitus with diabetic chronic kidney disease (principal); N39.0 Urinary tract infection, site not specified; Z79.4 Long term (current) use of insulin
CPT/HCPCS: 76770

== ENCOUNTER 2022-12-19 10:25 | Outpatient (REF) | payer MEDICARE, OTHER, SELFPAY ==
[2022-12-19 15:59] LABS: HGB 14.9 g/dL (13.5-17.5); MCH 28.9 pg (27.0-33.0); MCHC 31.7 % (32.0-36.0); MCV 91 fL (80-95); MPV 9.5 fL (8.0-11.0); Platelet Count 486 10^3/uL (130-400); RBC 5.16 10^6/uL (4.36-5.78); RDW 15.7 % (11.8-14.1); RDW-SD 52.8 fL; WBC 15.68 10^3/uL (4.4-10.8)
[2022-12-19 16:38] LABS: ALT 50 U/L (16-63); AST 35 U/L (15-37); Albumin 2.9 g/dL (3.4-5.0); Alkaline Phosphatase 723 U/L (46-116); Anion Gap 12.2 mmol/L (3-11); BUN 34 mg/dL (7-18); Bilirubin, Total 0.6 mg/dL (0.2-1.0); CO2 28.8 mmol/L (21.0-32.0); Calcium 9.3 mg/dL (8.5-10.1); Chloride 99 mmol/L (98-107); Estimated GFR 38.45 (mL/min/1.73m2); Glucose 156 mg/dL (74-106); Potassium 4.3 mmol/L (3.5-5.1); Sodium 140 mmol/L (136-145); Total Protein 7.2 g/dL (6.4-8.2)
[2022-12-19 18:14] LABS: Lab Add On Test DONE
[2022-12-19 18:41] LABS: Hemoglobin A1C 7.3 % (<5.7)
[2022-12-20 09:29] LABS: PSA, Screening 1.3 ng/mL (<=3.5)
== END 2022-12-19 10:26 | disposition home or self-care (01) ==
LOC: LBN 10:25
PROVIDERS: PCP Family Medicine; Visit Provider Nurse Practitioner Family
DX: N39.0 Urinary tract infection, site not specified (principal); N40.1 Benign prostatic hyperplasia with lower urinary tract symptoms; N13.8 Other obstructive and reflux uropathy; E11.40 Type 2 diabetes mellitus with diabetic neuropathy, unspecified; Z79.4 Long term (current) use of insulin; Z12.5 Encounter for screening for malignant neoplasm of prostate
CPT/HCPCS: 80053; 84153; 85027; 83036

== ENCOUNTER 2022-12-28 04:00 | Outpatient (CLI) | payer MEDICARE, OTHER, SELFPAY ==
[2022-12-28 12:18] LABS: Abs Immature Grans 0.03 10^3/uL (0.0-0.06); Absolute Basophil Count 0.12 10^3/uL (0.0-0.2); Absolute Eosinophil Count 0.22 10^3/uL (0.0-0.7); Absolute Lymphocyte Count 2.21 10^3/uL (1.2-3.4); Absolute Monocyte Count 0.69 10^3/uL (0.1-0.8); Absolute Neutrophil Count 4.39 10^3/uL (1.2-6.7); Basophils % 1.6; Eosinophils % 2.9; HCT 43.7 % (40.0-50.0); HGB 14.2 g/dL (13.5-17.5); Immature Grans % 0.4; Lymphocytes % 28.9; MCH 29.9 pg (27.0-33.0); MCHC 32.5 % (32.0-36.0); MCV 92 fL (80-95); Neutrophils % 57.2; Platelet Count 367 10^3/uL (130-400); RBC 4.75 10^6/uL (4.36-5.78); RDW-SD 51.1 fL; WBC 7.66 10^3/uL (4.4-10.8)
[2022-12-28 12:34] LABS: ALT 18 U/L (16-63); AST 8 U/L (15-37); Alkaline Phosphatase 282 U/L (46-116); Anion Gap 7.8 mmol/L (3-11); BUN 24 mg/dL (7-18); Bilirubin, Total 0.5 mg/dL (0.2-1.0); CO2 27.2 mmol/L (21.0-32.0); CREATININE 1.9 mg/dL (0.70-1.30); Calcium 9.2 mg/dL (8.5-10.1); Calculated LDL 39 mg/dL (<100); Chloride 103 mmol/L (98-107); Cholesterol 146 mg/dL (<200); Estimated GFR 40.89 (mL/min/1.73m2); Glucose 269 mg/dL (74-106); HDL Cholesterol 31 mg/dL (40-60); Potassium 4.2 mmol/L (3.5-5.1); Sodium 138 mmol/L (136-145); Total Protein 6.9 g/dL (6.4-8.2); Triglyceride 382 mg/dL (<150)
[2022-12-28 12:44] LABS: COMMENT (LAB VIEW ONLY) 61.88 mg/dL; Microalb ug/mg Crea 17.3 ug/mg Cr
[2022-12-28 12:48] LABS: GGT 198 U/L (15-85)
== END 2022-12-28 04:01 | disposition home or self-care (01) ==
LOC: LOS 04:00
PROVIDERS: PCP Family Medicine; Visit Provider Family Medicine
DX: E11.22 Type 2 diabetes mellitus with diabetic chronic kidney disease (principal); N18.31 Chronic kidney disease, stage 3a; Z79.4 Long term (current) use of insulin; R74.8 Abnormal levels of other serum enzymes; Z00.00 Encounter for general adult medical examination without abnormal findings; B96.20 Unspecified Escherichia coli [E. coli] as the cause of diseases classified elsewhere
CPT/HCPCS: 36415; 80053; 80061; 82043; 82570; 82977; 83915; 85025

== ENCOUNTER → 2023-01-04 02:47 | Outpatient (CLI) | payer MEDICARE, OTHER, SELFPAY ==
--- NOTE | 2023-01-04 06:45 | DI.US_ITS ---
Exam(s) US ABDOMEN EXAM: US ABDOMEN CLINICAL HISTORY: RUQ pain, elev alk phos,R74.8 TECHNIQUE: Ultrasound abdomen performed using standard protocol. COMPARISON: CT CT ABDOMEN PELVIS WO/W from 12/13/2022 FINDINGS: LIVER: Enlarged at 21.4 cm in length. Increased echogenicity consistent with mild to moderate hepati c steatosis. No focal liver lesions are seen. GALLBLADDER: No evidence of cholelithiasis. No evidence of wall thickening. No pericholecystic fluid identified. VILLAR'S SIGN: Negative. BILIARY SYSTEM: No intrahepatic or extrahepatic biliary ductal dilation. KIDNEYS: Kidneys are symmetric in size. No evidence of renal calculi. No evidence of hydronephrosis. No renal mass or cyst identified. PANCREAS: Normal where visualized. SPLEEN: Upper limits of normal in size ABDOMINAL AORTA AND IVC: Visualized portions normal caliber. ASCITES: None seen. IMPRESSION: Enlarged liver with [id number] hepatic steatosis. DATA REPOSITORY:
== END ==
PROVIDERS: PCP Family Medicine; Visit Provider Family Medicine
DX: K76.0 Fatty (change of) liver, not elsewhere classified
CPT/HCPCS: 76700

== ENCOUNTER → 2023-01-11 14:39 | Outpatient (BNVA) | payer MEDICARE, OTHER, SELFPAY | PROVIDERS: PCP Family Medicine; Referring Provider Family Medicine; Visit Provider Nurse Practitioner Gerontology | DX: N40.1 Benign prostatic hyperplasia with lower urinary tract symptoms (principal); R30.0 Dysuria | CPT/HCPCS: 81003; 99215 ==

== ENCOUNTER 2023-02-03 00:51 | Outpatient (CLI) | payer MEDICARE, OTHER, SELFPAY ==
[2023-02-03 09:23] LABS: ALT 36 U/L (16-63); AST 21 U/L (15-37); Albumin 3.5 g/dL (3.4-5.0); Alkaline Phosphatase 136 U/L (46-116); Anion Gap 5.2 mmol/L (3-11); BUN 24 mg/dL (7-18); Bilirubin, Total 0.7 mg/dL (0.2-1.0); CO2 32.8 mmol/L (21.0-32.0); CREATININE 1.7 mg/dL (0.70-1.30); Calcium 8.9 mg/dL (8.5-10.1); Chloride 100 mmol/L (98-107); Estimated GFR 46.73 (mL/min/1.73m2); Glucose 200 mg/dL (74-106); Potassium 3.7 mmol/L (3.5-5.1); Sodium 138 mmol/L (136-145); Total Protein 7.6 g/dL (6.4-8.2)
== END 2023-02-03 00:52 | disposition home or self-care (01) ==
LOC: LBO 00:51
PROVIDERS: PCP Family Medicine; Visit Provider Family Medicine
DX: E11.22 Type 2 diabetes mellitus with diabetic chronic kidney disease (principal); N18.31 Chronic kidney disease, stage 3a; Z00.00 Encounter for general adult medical examination without abnormal findings; Z79.4 Long term (current) use of insulin
CPT/HCPCS: 36415; 80053

== ENCOUNTER 2023-02-22 14:22 | Outpatient (REF) | payer MEDICARE, OTHER, SELFPAY ==
[2023-02-22 21:58] LABS: Uric Acid 11.4 mg/dL (3.5-7.2)
== END 2023-02-22 14:23 | disposition home or self-care (01) ==
LOC: LBN 14:22
PROVIDERS: PCP Family Medicine; Visit Provider Nurse Practitioner Family
DX: M79.671 Pain in right foot (principal); M79.674 Pain in right toe(s)
CPT/HCPCS: 84550

== ENCOUNTER 2023-03-15 04:50 | Outpatient (CLI) | payer MEDICARE, OTHER, SELFPAY ==
[2023-03-15 13:27] LABS: Anion Gap 7.6 mmol/L (3-11); BUN 21 mg/dL (7-18); CO2 33.4 mmol/L (21.0-32.0); CREATININE 1.9 mg/dL (0.70-1.30); Calcium 10.1 mg/dL (8.5-10.1); Chloride 100 mmol/L (98-107); Estimated GFR 40.89 (mL/min/1.73m2); Glucose 100 mg/dL (74-106); Potassium 3.6 mmol/L (3.5-5.1); Sodium 141 mmol/L (136-145); Uric Acid 6.9 mg/dL (3.5-7.2)
== END 2023-03-15 04:51 | disposition home or self-care (01) ==
LOC: LBO 04:50
PROVIDERS: PCP Family Medicine; Visit Provider Family Medicine
DX: E11.22 Type 2 diabetes mellitus with diabetic chronic kidney disease (principal); I10 Essential (primary) hypertension; N18.31 Chronic kidney disease, stage 3a; Z79.4 Long term (current) use of insulin; M10.39 Gout due to renal impairment, multiple sites; N40.1 Benign prostatic hyperplasia with lower urinary tract symptoms; R30.0 Dysuria
CPT/HCPCS: 36415; 51798; 80048; 99213; 99215; 84550

== ENCOUNTER → 2023-04-06 14:50 | Outpatient (BNVA) | payer MEDICARE, OTHER, SELFPAY | PROVIDERS: PCP Family Medicine; Referring Provider Family Medicine; Visit Provider Physical Therapy Assistant | DX: Z12.11 Encounter for screening for malignant neoplasm of colon (principal); Z86.010 Personal history of colon polyps; Z80.0 Family history of malignant neoplasm of digestive organs; Z87.19 Personal history of other diseases of the digestive system | CPT/HCPCS: 99213 ==

== ENCOUNTER 2023-04-24 11:36 | Outpatient (CLI) | payer MEDICARE, OTHER, SELFPAY ==
--- NOTE | 2023-04-24 08:29 | DI.RAD_ITS ---
Exam(s) XR WRIST RT COMPLETE EXAM: XR WRIST RT COMPLETE CLINICAL HISTORY: painful mass R wrist. TECHNIQUE: 2D digital imaging was performed of the right wrist. Four views were obtained. PA, late ral and oblique views were obtained. COMPARISON: No exams were available for comparison FINDINGS: BONES: No acute fracture is present. No bony destructive lesion is seen. Small subchondral cysts are seen in the capitate. No suspicious lytic or sclerotic lesions are seen. JOINTS: The carpal bones are normally aligned. SOFT TISSUE: No suspicious soft tissue calcifications or radiopaque foreign bodies are seen. IMPRESSION: No acute abnormality. If there is concern for soft tissue masses, an MRI should be considered for fu rther evaluation. DATA REPOSITORY: RADIATION DOSE DELIVERED:
== END 2023-04-24 11:37 | disposition home or self-care (01) ==
LOC: DIORS 11:36
PROVIDERS: PCP Family Medicine; Referring Provider Family Medicine; Visit Provider Student in an Organized Health Care Education/Training Program
DX: G56.01 Carpal tunnel syndrome, right upper limb; G56.02 Carpal tunnel syndrome, left upper limb; G56.22 Lesion of ulnar nerve, left upper limb; M67.431 Ganglion, right wrist
CPT/HCPCS: 99213; 73110

== ENCOUNTER 2023-04-24 21:19 | Outpatient (REF) | payer MEDICARE, OTHER, SELFPAY ==
[2023-04-24 22:15] LABS: Bilirubin Negative (Negative); Blood Negative (Negative); Clarity Sl Cloudy (Clear); Glucose 500 mg/dL (Negative); Ketones Negative (Negative); Leukocyte Esterase Negative (Negative); Nitrite Negative (Negative); Specific Gravity 1.015 (1.005-1.025); Urobilinogen 0.2 mg/dL (Up to 0.2)
== END 2023-04-24 21:20 | disposition home or self-care (01) ==
LOC: NCHCN 21:19
PROVIDERS: PCP Family Medicine; Visit Provider Nurse Practitioner Family
DX: R30.0 Dysuria (principal)
CPT/HCPCS: 81003

== ENCOUNTER → 2023-04-26 08:54 | Outpatient (BNVA) | payer MEDICARE, OTHER, SELFPAY | PROVIDERS: PCP Family Medicine; Referring Provider Family Medicine; Visit Provider Nurse Practitioner Gerontology | DX: R31.0 Gross hematuria (principal) | CPT/HCPCS: 99213 ==

== ENCOUNTER 2023-05-08 06:54 | Day surgery (SDC) | payer MEDICARE, OTHER, SELFPAY ==
[2023-05-08 06:58] VITALS: BP 131/87; PULSE 93; RESP 18; TEMP 36.1; O2SAT 96
[2023-05-08] MEDS: Lactated Ringers 1,000 ML 80 ML IV (07:28)
[2023-05-08] MEDS: Sulfameth/Trimeth DS TAB 1 TAB PO (07:28)
--- NOTE | 2023-05-08 08:08 | HPE_ITS ---
Date of service: 05/08/23 Time of Service: 08:08 Assessment and Plan Assessment and plan (1) Gross hematuria: Status: Acute Assessment and plan: We will complete his hematuria workup with cystoscopy. We will be prepared to perform TUR bladder tumor if any abnormalities are identified. History of Present Illness History of Present Illness Chief Complaint: Hematuria Narrative: This is a 57-year-old gentleman who has a history of gross blood seen from the penis. The episode of visible blood occurred after he strained to move his bowels. He did not actually see the blood mixed in with the urine. He does have a history of a positive urine culture. He grew E. coli in the urine back in December. He had multiple imaging studies including a CT scan, renal ultrasound and abdominal ultrasound. There is no evidence of renal mass, kidney stones or hydronephrosis on any of the scans. There was some perinephric stranding consistent with pyelonephritis. He comes in now for cystoscopy to complete his hematuria and UTI workup. Review of Systems Narrative: No fevers or chills Decreased vision left eye. No dysphasia Diabetes. No thyroid dysfunction Sleep apnea. No cough or hemoptysis CAD, claudication. No chest pain or palpitations GERD. No nausea, vomiting, hepatitis, ulcers, jaundice Diabetic neuropathy. No seizures or stroke No bleeding disorders or anemia Hx gout. Chronic back pain. [facility] All Active Problems Gross hematuria (Acute) Ganglion cyst of dorsum of right wrist (Acute) Cubital tunnel syndrome on left (Acute) Carpal tunnel syndrome of right wrist (Acute) Carpal tunnel syndrome of left wrist (Acute) Gout due to renal impairment, multiple sites (Acute) Hyperuricemia (Acute) ALTMAN (nonalcoholic steatohepatitis) (Chronic 01/04/23) Elev Alk Phos, abd u/s Pituitary abnormality (Acute) Seen incidentally, normal cortisol and TSH Peripheral artery disease (Acute) Orthostatic hypotension (Acute) Diabetes mellitus with stage 3a chronic kidney disease, with long-term current use of insulin (Acute) Type 2 diabetes mellitus with diabetic neuropathy, with long-term current use of insulin (Acute) Lumbosacral spondylosis without myelopathy (Acute) Memory change (Acute) Claudication (Acute) Obesity (Chronic) Bilateral lower extremity edema (Chronic) left > right; felt to be venous insufficiency, not wearing compression. Normal echo in 12/2021 Erectile dysfunction (Acute) BPH loc w urin obs/LUTS (Acute) Actinic keratosis due to exposure to sunlight (Acute) Tubular adenoma (Acute ~04/2020) 04/13/20 TAx5 Serrated adenoma of colon (Acute ~04/2020) 04/13/20 Sessile serrated adenomax2 Colon polyp, hyperplastic (Acute ~04/2020) 04/13/20 HP x19 Diabetic peripheral neuropathy (Acute) GERD (gastroesophageal reflux disease) (Acute) HTN (hypertension) (Chronic) Smoker (Acute) CAD S/P percutaneous coronary angioplasty (Chronic 08/28/17) Hyperlipidemia (Chronic) CARLOTA (obstructive sleep apnea) (Chronic) Depression with anxiety (Chronic) resistant to treatment with antidepressants Medical History Pyelonephritis due to Escherichia coli History of left heart catheterization 10/05/22 [facility] [place] Cardiology. 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 Cervical disc disease Chronic neck pain Tubular adenoma of colon (02/18/14) Thoracic spine pain (07/17/15) Spondylosis of cervical region without myelopathy or radiculopathy (04/17/15) Chronic pain syndrome (09/30/16) 08/19/16-CONTROLLED SUBSTANCE AGREEMENT-APPROVED FOR 3 MONTHS Chronic obstructive lung disease Chronic left-sided low back pain with left-sided sciatica (12/03/15) Blindness, 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 Acute nontraumatic kidney injury Parastomal hernia Surgical History Status post vasectomy Status post Luisana fundoplication Status post inguinal hernia repair Status post carpal tunnel release History of esophagogastroduodenoscopy History of incisional hernia repair with mesh right ulnar graft left shoulder repair Luisana Fundoplication Colonoscopy - MAC 02/18/14 Family History Father , age 74 Diabetes Alcohol abuse sober in later years Essential hypertension Hyperlipidemia Cancer Mother , age 72 Diabetes Essential hypertension Heart disease Hyperlipidemia Mental disorder pt thinks she has bipolar Depression Brother Hyperlipidemia Depression Diabetes Heart disease Hypertension Sister Alcohol abuse Depression Stroke Substance abuse Sister Depression Heart disease Hypertension Brother Hyperlipidemia Hypertension Brother , age 29 Alcohol abuse Depression Substance abuse Social History (Updated 03/15/23 @ 14:36 by Zarina Dinh MD) Smoking/Tobacco Use Status: Current every day Tobacco Type: cigarettes Smoking packs per day: 2 Smoking cigarettes per day: 40.0 Tobacco: How many years used: 40 Quit status: considering quitting Second Hand Exposure: Yes Counseling given: provider counseling Smoking risk assessment performed?: Yes Alcohol Intake: current Alcohol Intake frequency: holidays/special occasions only Drug use: Never Substance use type: does not use Caregiver/Support person: No Household members: spouse and family Housing: house Communication Needs: None Do you need help understanding health information?: Rarely 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 Pets and animals: Yes Pets and animals: dog(s) Sexually active: No Do you think of yourself as: straight/heterosexual Current gender identity: male What is your relationship status?: How often do you talk on the phone with friends or family?: once per week How often do you get together with friends or relatives?: once per week How often do you attend yazdanism or roman catholic services?: decline to answer Do you belong to any clubs or organized social groups?: no Panel score (0-1 are the most socially isolated patients): 1 Duration: decline to answer Frequency: decline to answer Mayela/Orthodoxy: No preference Special mayela needs: No Seatbelt use: always Helmet use: Yes Helmet use: always Drive intox or ride w/intox cmv driver: No Do you feel safe at home: Yes Do you feel safe in your relationship?: Yes Meds Allergies and Home Medications Allergies Allergy/AdvReac Type Severity Reaction Status Date / Time venlafaxine AdvReac Severe Nausea Verified 05/08/23 07:10 doxycycline AdvReac Intermediate Cold Verified 05/08/23 07:10 Chills, made him sick. liraglutide [From Victoza] AdvReac Intermediate GI upset Verified 05/08/23 07:10 Home Medications Medication Instructions Recorded Confirmed Type aspirin 81 mg tablet,delayed 81 mg PO DAILY 08/28/17 05/08/23 History release (Aspir-) acetaminophen 325 mg tablet 650 mg PO Q6H PRN 06/27/19 05/08/23 History vitamin B complex (B 1 tab PO DAILY 08/19/19 05/08/23 History Complex-Vitamin B12 tablet) metformin 1,000 mg tablet 1,000 mg PO BID #180 tab-caps 02/23/22 05/08/23 Rx empagliflozin 25 mg tablet 25 mg PO DAILY #90 tabs 06/07/22 05/08/23 Rx pantoprazole 40 mg tablet,delayed 40 mg PO BID #180 tabs 08/04/22 05/08/23 Rx release albuterol sulfate 90 mcg/actuation 2 puff inhalation Q6H PRN 09/30/22 05/08/23 Rx aerosol inhaler shortness of breath or wheezing #8.5 grams atorvastatin 80 mg tablet 80 mg PO QHS #90 tabs 09/30/22 05/08/23 Rx blood-glucose sensor (Dexcom G7 #1 ea 09/30/22 04/24/23 Rx Sensor device) fluticasone fur. 200 mcg-umeclid 1 inh inhalation DAILY #60 ea 09/30/22 05/08/23 Rx 62.5 mcg-vilant 25 mcg inhalat.powder (Trelegy Ellipta) folic acid 1 mg tablet 1 mg PO DAILY #90 tabs 09/30/22 05/08/23 Rx nitroglycerin 0.4 mg sublingual See Rx Instructions .Route 09/30/22 05/08/23 Rx tablet .COMPLEX #100 tabs glucagon HCl 1 mg solution for 1 mg subcut Q20M PRN hypoglycemia 10/14/22 05/08/23 Rx injection (Glucagon (HCl) #1 ea Emergency Kit) pen needle, diabetic 31 gauge x #500 ea 12/01/22 04/24/23 Rx 1/4 (Comfort EZ Pen Ballantine) metoprolol succinate 50 mg 25 mg (1/2 x 50 mg) PO DAILY #90 12/21/22 05/08/23 Rx tablet,extended release 24 hr tabs insulin degludec 200 unit/mL (3 80 unit (0.4 mL) subcut BID #36 mL 12/30/22 05/08/23 Rx mL) subcutaneous pen torsemide 20 mg tablet 40 mg (2 x 20 mg) PO DAILY #180 02/10/23 05/08/23 Rx tabs insulin lispro 200 unit/mL (3 mL) 40 unit (0.2 mL) subcut QACHS #24 03/01/23 05/08/23 Rx subcutaneous pen (Humalog KwikPen mL U-200 Insulin) colchicine 0.6 mg tablet (Colcrys) See Rx Instructions PO .COMPLEX 03/07/23 05/08/23 Rx #30 tabs pyridostigmine bromide 60 mg tablet 60 mg PO TID PRN activity or 03/15/23 05/08/23 Rx dizzness #90 tabs tamsulosin 0.4 mg capsule (Flomax) 0.4 mg PO DAILY #90 caps 04/05/23 05/08/23 Rx bisacodyl 5 mg tablet,delayed 5 mg PO ONCE #4 tabs 04/06/23 05/08/23 Rx release (Dulcolax (bisacodyl)) polyethylene glycol 3350 17 17 g PO ONCE #238 grams 04/06/23 05/08/23 Rx gram/dose oral powder Exam Const Nutritional Appearance: obese Neck Neck: supple Resp Effort & Inspection: normal respiratory effort Auscultation: diminished lung sounds Cardio Rate: regular rate Rhythm: regular rhythm GI Inspection: obesity Palpation: soft Neuro General: patient alert, patient awake and patient oriented x3 Results Last Vital Signs Temp 36.1 C L 05/08/23 06:58 Pulse 93 H 05/08/23 06:58 Resp 18 05/08/23 06:58 BP 131/87 05/08/23 06:58 Pulse Ox 96 05/08/23 06:58 Time Spent Time spent with Patient: <40 minutes Time was spent: other
--- NOTE | 2023-05-08 08:36 | W.ANESPRE ---
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 liraglutide [From Victoza] AdvReac Intermediate GI upset Verified 05/08/23 07:10 Home Medication Medication Instructions Recorded aspirin 81 mg tablet,delayed 81 mg PO DAILY 08/28/17 release (Aspir-) acetaminophen 325 mg tablet 650 mg PO Q6H PRN 06/27/19 vitamin B complex (B 1 tab PO DAILY 08/19/19 Complex-Vitamin B12 tablet) metformin 1,000 mg tablet 1,000 mg PO BID #180 tab-caps 02/23/22 empagliflozin 25 mg tablet 25 mg PO DAILY #90 tabs 06/07/22 pantoprazole 40 mg tablet,delayed 40 mg PO BID #180 tabs 08/04/22 release albuterol sulfate 90 mcg/actuation 2 puff inhalation Q6H PRN 09/30/22 aerosol inhaler shortness of breath or wheezing #8.5 grams atorvastatin 80 mg tablet 80 mg PO QHS #90 tabs 09/30/22 blood-glucose sensor (Dexcom G7 #1 ea 09/30/22 Sensor device) fluticasone fur. 200 mcg-umeclid 1 inh inhalation DAILY #60 ea 09/30/22 62.5 mcg-vilant 25 mcg inhalat.powder (Trelegy Ellipta) folic acid 1 mg tablet 1 mg PO DAILY #90 tabs 09/30/22 nitroglycerin 0.4 mg sublingual See Rx Instructions .Route 09/30/22 tablet .COMPLEX #100 tabs glucagon HCl 1 mg solution for 1 mg subcut Q20M PRN hypoglycemia 10/14/22 injection (Glucagon (HCl) #1 ea Emergency Kit) pen needle, diabetic 31 gauge x #500 ea 12/01/22 1/ (Comfort EZ Pen [place]) metoprolol succinate 50 mg 25 mg (1/2 x 50 mg) PO DAILY #90 12/21/22 tablet,extended release 24 hr tabs insulin degludec 200 unit/mL (3 80 unit (0.4 mL) subcut BID #36 mL 12/30/22 mL) subcutaneous pen torsemide 20 mg tablet 40 mg (2 x 20 mg) PO DAILY #180 02/10/23 tabs insulin lispro 200 unit/mL (3 mL) 40 unit (0.2 mL) subcut QACHS #24 03/01/23 subcutaneous pen (Humalog KwikPen mL U-200 Insulin) colchicine 0.6 mg tablet (Colcrys) See Rx Instructions PO .COMPLEX 03/07/23 #30 tabs pyridostigmine bromide 60 mg tablet 60 mg PO TID PRN activity or 03/15/23 dizzness #90 tabs tamsulosin 0.4 mg capsule (Flomax) 0.4 mg PO DAILY #90 caps 04/05/23 bisacodyl 5 mg tablet,delayed 5 mg PO ONCE #4 tabs 04/06/23 release (Dulcolax (bisacodyl)) polyethylene glycol 3350 17 17 g PO ONCE #238 grams 04/06/23 gram/dose oral powder Current Visit Medications: Current Medications Generic Name Dose Route Start Last Admin Trade Name Freq PRN Reason Stop Dose Admin Ringer's Solution 1,000 mls @ 80 mls/hr 05/08/23 06:00 05/08/23 07:28 IV 06/04/23 23:59 80 mls/hr INFUSION YAW Administration IV Miscellaneous Supplies 1 each 05/08/23 06:00 Iv Access IV 06/04/23 23:59 DIRECTED YAW Sodium Chloride 0 ml 05/08/23 06:00 Normal Saline Flush 10 Ml Syr IV 06/04/23 23:59 PRN PRN Sodium Chloride 0 ml 05/08/23 06:00 Normal Saline 10 Ml Vial IJ 06/04/23 23:59 DIRECTED PRN Sterile Water 0 ml 05/08/23 06:00 Water,Injection,Sterile 10 Ml Vial IJ 06/04/23 23:59 DIRECTED PRN Trimethoprim/Sulfamethoxazole 1 tab 05/08/23 06:00 05/08/23 07:28 Sulfameth/Trimeth Ds Tab PO 05/08/23 16:00 1 tab PREOP YAW Administration PFSH Active Problems Active Problems: Problem Status Onset Code Gross hematuria R31.0 Ganglion cyst of dorsum of right wrist M67.431 Cubital tunnel syndrome on left G56.22 Carpal tunnel syndrome of right wrist G56.01 Carpal tunnel syndrome of left wrist G56.02 Gout due to renal impairment, multiple sites M10.39 Hyperuricemia E79.0 ALTMAN (nonalcoholic steatohepatitis) 01/04/23 K75.81 Prostatitis, acute N41.0 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 Peripheral artery disease I73.9 Orthostatic hypotension I95.1 Diabetes mellitus with stage 3a chronic kidney disease, with long-term current use of insulin E11.22, N18.31, Z79.4 Type 2 diabetes mellitus with diabetic neuropathy, with long-term current use of insulin E11.40, Z79.4 Lumbosacral spondylosis without myelopathy M47.817 Memory change R41.3 Claudication I73.9 Obesity E66.9 Bilateral lower extremity edema R60.0 Erectile dysfunction N52.9 BPH loc w urin obs/LUTS N40.1 Actinic keratosis due to exposure to sunlight L57.0 Tubular adenoma ~04/2020 D36.9 Serrated adenoma of colon ~04/2020 D12.6 Colon polyp, hyperplastic ~04/2020 K63.5 Diabetic peripheral neuropathy E11.42 GERD (gastroesophageal reflux disease) K21.9 HTN (hypertension) I10 Smoker F17.200 CAD S/P percutaneous coronary angioplasty 08/28/17 I25.10, Z98.61 Hyperlipidemia CARLOTA (obstructive sleep apnea) Depression with anxiety Medical History Medical History Pyelonephritis due to Escherichia coli History of left heart catheterization 10/05/22 [facility] Cardiology. 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 Cervical disc disease Chronic neck pain Tubular adenoma of colon (02/18/14) Thoracic spine pain (07/17/15) Spondylosis of cervical region without myelopathy or radiculopathy (04/17/15) Chronic pain syndrome (09/30/16) 08/19/16-CONTROLLED SUBSTANCE AGREEMENT-APPROVED FOR 3 MONTHS Chronic obstructive lung disease Chronic left-sided low back pain with left-sided sciatica (12/03/15) Blindness, 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 Acute nontraumatic kidney injury Parastomal hernia Surgical History Surgical History Status post vasectomy Status post Luisana fundoplication Status post inguinal hernia repair Status post carpal tunnel release History of esophagogastroduodenoscopy History of incisional hernia repair with mesh right ulnar graft left shoulder repair Luisana Fundoplication Colonoscopy - MAC 02/18/14 Tobacco Smoking/Tobacco Use Status: Current every day Tobacco Type: cigarettes Smoking packs per day: 2 Smoking cigarettes per day: 40.0 Passive smoking exposure: Yes Second hand exposure: Yes Counseling given: provider counseling Alcohol Alcohol Intake: current Alcohol intake frequency: holidays/special occasions only Substance Use Substance use: Never Substance use type: does not use Vital Signs and Lab Results Vital Signs Most Recent Vital Signs in EMR: Most Recent Vital Signs Temp Pulse Resp BP Pulse Ox 36.1 C L 93 H 18 131/87 96 05/08/23 06:58 05/08/23 06:58 05/08/23 06:58 05/08/23 06:58 05/08/23 06:58 Point of Care Results Point of Care Results: Finger Stick Blood Glucose 195 05/08/23 07:09 Lab Results Blood Type / Crossmatch: No Data to Display Complete Blood Count: No Data to Display Complete Metabolic Panel: Hemoglobin A1c 7.4 % (4.5-5.7) H 04/24/23 15:44 Liver Function Panel: No Data to Display Coagulation Panel: No Data to Display Cardiac Panel: No Data to Display Arterial Blood Gas: No Data to Display Venous Blood Gas: No Data to Display Pancreas Panel: No Data to Display Thyroid Panel: No Data to Display Infectious Disease: No Data to Display Blood Cultures: No Data to Display Toxicology Panel: No Data to Display Imaging and Studies Imaging and Studies Study information below may be from another EMR and interpreted by another provider. Please see original notes in EMR for more complete details. EKG Summary: EKG PATIENT NAME: Samy Patricio Jr UNIT #: [id number] ORDERING PROVIDER: Nga Barron PRIMARY CARE PROVIDER: KAREN BARBOSA MD DATE/TIME OF SERVICE: 10/04/22 1545 : 1965 PERFORMING LOCATION: ER APPROVED REPORT Exam: Resting ECG Reason for Exam: chest pain Patient Location: E HR:57 bpm ECG Measurements Heart Rate 57 AXIS WA 198 P 69 QRSd 100 QRS 66 QT 461 T32 QTc 449 Conclusion Sinus bradycardia...rate< 60 sinus rhythm, normal axis, normal intervals, non ischemic <Electronically signed by Asa Tucker M.D. in OV> E-Sign Date: 10/09/22 E-Sign Time: 1615 ADDENDUM APPROVED REPORT Exam: Resting ECG Reason for Exam: chest pain Patient Location: E HR:57 bpm ECG Measurements Heart Rate 57 AXIS WA 198 P 69 QRSd 100 QRS 66 QT 461 T32 QTc 449 Conclusion Sinus bradycardia...rate< 60 sinus rhythm, normal axis, normal intervals, non ischemic I have reviewed and I agree with the emergency room physician's ECG interpretation. Electronically signed by: <Electronically signed by Eileen Kingston M.D. in OV> 10/10/22 0816 Cosigned by: Stress Test Summary: Patient Name: SAMY PATRICIO Unit #: [id number] Loc: DI Ordering Provider: Jg Stubbs M.D. Status: REG CLI Primary Care Provider: Abi Gallegos Date of Exam: 04/23/18 Sex: M : 1965 Age: 52 Exam(s) a NM:NM MPI rest & stress grp *[facility]* *[facility]* [address] [place] [address] Myocardial Perfusion Imaging - SPECT Cabrera protocol Date of study: 04/23/2018 *PATIENT PRESENTATION* Height: 182.9cm (72in) Blood Pressure: Weight: 120.9kg (266lb) BSA: 2.52m^2 Referring physician: Evonne Bowens Ordering physician: Jg Stubbs Impressions: - Normal study after pharmacologic stress. - Good functional capacity - stress converted to pharm stress as THR not achieved. Summary: 1. Myocardial perfusion imaging: No myocardial perfusion defects noted. 2. The calculated left ventricular ejection fraction after stress: 70%. LV global systolic function is normal. No left ventricular regional motion abnormality. 3. Stress: The target heart rate was not achieved. Indication: R07.9. History: REASON FOR TESTING: PATIENT PRESENTED TO THE ED ON 04/13/18 WITH INTERMITTENT EPISODES OF MIDSTERNAL SHARP CHEST PAINS, ALTHOUGH AT OTHER TIMES HIS CHEST PAIN WILL BE A DULL PRESSURE. CHEST PAIN OCCURS AT REST AND WITH ACTIVITY. TROPONINS IN ER WERE NEGATIVE. PATIENT REPORTS HAVING INTERMITTENT CHEST PAIN FOR THE PAST 18 MONTHS. CHEST PAIN OCCASIONALLY WILL RADIATE TO NECK AND HE MAY HAVE DIAPHORESIS. TODAY PATIENT DENIES CHEST PAIN UPON ARRIVAL TO EXERCISE TESTING. SIGNIFICANT PAST MEDICAL HISTORY: STATUS POST RCA PCI FOR STEMI IN AUGUST 2017. TWO STENTS PLACED IN AUGUST 2017. SMOKING STATUS: SMOKER 40 YEARS, 2 PPD EXERCISE ROUTINE: DAILY ADL'S. PMH: COPD. Risk factors: Family history of coronary artery disease. Current tobacco use. Dyslipidemia. Cholesterol: 147mg/dl. HDL: 31mg/dl. LDL: 77mg/dl. Triglycerides: 313mg/dl. ALLERGIES: NO KNOWN ALLERGIES. MEDICATIONS: ACETAMINOPHEN 650 MG PRN, ASPIRIN 81 MG DAILY, ATORVASTATIN 20 MG HS, PLAVIX 75 MG DAILY, GLIPIZIDE 5 MG HS, ISOSORBIDE MONONITRATE 30 MG DAILY, METFORMIN 1000 BID, METOPROLOL 25 MG DAILY, NITROGLYCERIN 0.4 MG PRN, PANTOPRAZOLE 40 MG HS, PROAIR HFA 2 PUFFS PRN. Imaging Technique: Protocol: Cabrera protocol. Acquisition: Gated SPECT; 1 day - rest/stress. The patient was imaged in the supine position. Attenuation correction used. Isotope administration: - Rest. Tc[99m]-sestamibi. Dose: 11.7mCi. Injection time: 08:15 AM. Injection to stress time: 00:45. - Stress. Tc[99m]-sestamibi. Dose: 37.1mCi. Injection time: 10:35 PM. 1-2 min before end of exercise Baseline ECG: SINUS RHYTHM. HR 76 BPM. Stress protocol: + +---+ + + !Stage !HR !BP (mmHg) !Comments ! + +---+ + + !Baseline supine !76 !136/90 (105)! ! + +---+ + + !Baseline standing !85 !124/90 (101)! ! + +---+ + + !Stage I; 1.7mph, 10degrees; 3 min!113!152/84 (107)! ! + +---+ + + !Stage II; 2.5mph, 12degrees; 3 !117!168/84 (112)! ! !min ! ! ! ! + +---+ + + !Peak stress !129! ! ! + +---+ + + !Recovery; 1 min !115!170/80 (110)! ! + +---+ + + !1 min !101!158/84 (109)!Inject Connor.! + +---+ + + !3 min !94 !140/88 (105)! ! + +---+ + + !6 min !86 !140/90 (107)! ! + +---+ + + * Stress results: STRESS TEST ENDED IN 9 MINUTES 1 SECOND DUE TO FATIGUE. PATIENT DID NOT MEET TARGET HEART RATE. NORMAL HEART RATE AND BLOOD PRESSURE RESPONSE TO EXERCISE. MAX HEART RATE: 129 76 % OF TARGET HEART RATE. MET'S: 1035 RARE PAC'S WITH EXERCISE. NO ANGINA NO SIGNIFICANT ST SEGMENT CHANGES. FUNCTIONAL CAPACITY: AVERAGE CAPACITY. TRANSITIONED TO LEXISCAN BECAUSE TARGET HEART RATE NOT ACHIEVED. LEXISCAN PROTOCOL STRESS TEST ENDED IN 7 MINUTES 13 SECONDS. NORMAL HEART RATE AND BLOOD PRESSURE RESPONSE TO LEXISCAN INJECTION. NO ANGINA. NO SIGNIFICANT ST SEGMENT CHANGES. Maximal heart rate during stress was 129bpm (76% of maximal predicted heart rate). The maximal predicted heart rate was 169bpm. The target heart rate was not achieved. The rate-pressure product for the peak heart rate and blood pressure was 24675mm Hg/min. Myocardial perfusion: Imaging information: gated. Left ventricular size is normal. No myocardial perfusion defects noted. Ventricular Function (Wall Motion): The calculated left ventricular ejection fraction after stress: 70%. LV global systolic function is normal. No left ventricular regional motion abnormality. Study data: Evonne Bowens MD supervised and was readily available during the procedure. This study was interpreted by [facility]. Study status: Routine. Consent: The risks, benefits, and alternatives to the procedure were explained to the patient and informed consent was obtained. Procedure: Initial setup. A baseline ECG was recorded. Surface ECG leads and manual cuff blood pressure measurements were monitored. Heart sounds: Normal. Lung sounds: Normal. Treadmill exercise testing was performed using the Cabrera protocol. Study completion: All catheters inserted during the procedure were removed. The patient tolerated the procedure well and was discharged from the lab. Discharge: The patient left the laboratory in stable condition. Birthdate: Patient birthdate: 1965. Sex: Gender: male. Study date: Study date: 04/23/2018. Study time: 00:01 AM. Signature Documentation: - The imaging portion of this study was interpreted by Nuclear Cisco Engineer Evonne Bowens MD. - The imaging portion of this study was interpreted by Nuclear Radiologist Jeovanny Larson MD. - The Stress ECG portion of this study was interpreted by Evonne Bowens MD. Electronically signed by Evonne Bowens 04/23/2018 15:04 Ordering provider: Jg Stubbs M.D. CC: EVONNE BOWENS MD Dictated by: Jeovanny Larson M.D.04/23/18 1400 <Electronically signed by Jeovanny Larson M.D.>04/24/18 1256 Disclaimer: The [facility] radiologist is signing only the Nuclear Medicine MPI Imaging exam portion of the report. Transcribed by: Lottie Sanchez04/24/18 0828 This is privileged, confidential information intended only for the provider named. Any use or distribution by any person other than this provider is strictly prohibited. If you receive this report in error, please notify us immediately at [phone] and return the original report to us Echocardiogram Summary: Patient Name: Samy Patricio Jr Unit #: [id number] Loc: DI Ordering Provider: Karen Barbosa M.D. Status: REG CLI Primary Care Provider: Karen Barbosa M.D. Date of Exam: 12/17/21 Sex: M Admission Date: 12/17/21 : 1965 Age: 56 APPROVED REPORT EXAM: Comprehensive 2D, Doppler, and color-flow Echocardiogram Patient Location: [facility]Patient [facility] Volunteer Coordinator: Ely Hawthorne RDCS (AE) Indications: Lower extremity edema, CAD Other Information Study Quality: Adequate Conclusion Normal left ventricular wall thickness and chamber size. Estimated ejection fraction is 55 to 60%. Wall motion is normal Normal right ventricular size and systolic function Both atria are normal in size There is no structural or hemodynamically significant valvular disease Wall motion Left Ventricle The left ventricle is normal size. The left ventricular systolic function is normal. The left ventricular ejection fraction is within the normal range. There is normal left ventricular wall thickness. There is normal LV segmental wall motion. There is no ventricular septal defect visualized. LVEF is 57%. Right Ventricle The right ventricle is normal size. The right ventricular systolic function is normal. Atria The left atrium size is normal. The right atrium size is normal. The interatrial septum is intact with no evidence for an atrial septal defect. Aortic Valve The aortic valve is normal in structure. There is no aortic valvular stenosis. No aortic regurgitation is present. Mitral Valve The mitral valve is normal in structure. No evidence of mitral valve stenosis. Trace mitral regurgitation. Tricuspid Valve The tricuspid valve is normal in structure. There is no tricuspid valve stenosis. Trace tricuspid regurgitation. Unable to assess PA pressure. Pulmonic Valve The pulmonary valve is normal in structure. There is no pulmonic valvular stenosis. There is no pulmonic valvular regurgitation. Great Vessels The aortic root is normal in size. The ascending aorta is normal in size. Aortic arch is not well visualized. IVC is normal in size and collapses >50% with inspiration. Pericardium There is no pericardial effusion. 2D Dimensions IVSD d PLAX 0.96 cm M: 0.6-1.2LV Vol A2C d MOD 126.5 mL LVPW d PLAX 1.05 cm M: 0.6 - 1.2LV Vol A4C d MOD 141.5 mL LVID d PLAX 4.79 cm M: 4.2 - 5.8LA vol/ BSA A2C s A-L18.6 mL/m2 LVDs 3.25 cm M: 2.5 - 4.0LA vol/ BSA A4C s A-L23.2 mL/m2 Ao Root d 3.11 cm M: 3.1 - 3.7LA Vol/ BSA Biplane s A-L 22.0 mL/m2 RA Area A4C15.25 cm2LA Area A4C s MOD 21.43 cm2 RA Vol/ BSA A4C s A-L 14.8 mL/m2LA Area A2C s MOD 18.15 cm2 Ao Asc Diam d 3.43 cm M: 2.6 - 3.4LV EF A4C MOD 56.5 % LV EF Teichholz 59.3 %LV EF A2C MOD 57.9 % LVEF (Hi's)57.26 % M: 52 - 72LV EF Biplane MOD 57.3 % LV Bqqdnz64.06 mL M: 62 - 399LR93.01 mL LV Volume Index35.79 mL/m2 M: 34 - 74SV Index29.56 mL/m2 LV Vol Biplane MOD 134.5 mL FS31.45 % M-Mode TAPSE 1.89 cm (M/F) >1.7 LV Diastology MV E' medial0.088 (>0.07 m/s)E/A Ratio 0.8 LV E/e MED8.25 (<14)MV E Vmax 0.73 (0.4-1.3 m/s) MV E' lateral0.094 (>0.1 m/s)MV A Vmax 0.90 (0.4-1.3 m/s) LV E/e LAT7.70 (<14)MV E/A Ratio 0.79 MV E/E' medial 8.26 MV E/E' lateral7.72 Aortic Valve LVOT Area3.82 cm2AoV Area Vmax3.49 cm2 LVOT Vmax 1.19 m/sAoV Area/ BSA (Vmax)1.34 cm2/m2 LVOT Mean Shubham.0.73 m/sAVA Mean Shubham.3.06 cm2 LVOT Peak Grad 5.7 mmHgAVA Mean Shubham. Index1.18 cm2/m2 LVOT Mean Grad 2.6 mmHg LVOT VTI0.250 m LVOT Diam s 2.20 cm AoV Vmax1.30 m/s Velocity Ratio 0.91 AoV Mean Shubham.0.91 m/s AoV Peak Grad6.8 mmHg LVOT SV 95.46 mL AoV Mean Grad3.7 mmHg AoV VTI0.255 m AoV Area VTI3.75 cm2 AoV Area/ BSA (VTI)1.44 cm/m2 Mitral Valve MV DT 239 (160-240 msec) MV PHT69 msec MV Area PHT 3.17 cm2 MV VTI 0.316 m MV Area VTI 3.02 (4.0-6.0 cm2) Pulmonary Valve PV Vmax 0.96 (0.5-1.5 m/s)RVOT Peak Gr.1.66 mmHg PV Peak Grad 3.7 mmHgRVOT Mean Gr.0.90 mmHg PV Mean Grad 2.1 mmHgRVOT VTI0.152 m PV VTI 0.201 mRVOT Vmax 0.64 m/s Ordered By: Karen Barbosa M.D. CC: Dictated By: Eileen Kingston M.D. 12/17/21 1313 <Electronically signed by Eileen Kingston M.D. in OV> 12/20/21 0905 Transcribed By: Eileen Kingston MD This is privileged, confidential information intended only for the provider named. Any use or distribution by any person other than this provider is strictly prohibited. If you receive this report in error, please notify us immediately at [phone] and return the original report to us at the address above. Thank-you. Carotid Artery Summary:: Patient Name: SAMY PATRICIO Unit #: [id number] Loc: DI Ordering Provider: Altaf Hoover M.D. Status: REG I Primary Care Provider: Altaf Hoover M.D. Date of Exam: 04/25/17 Sex: M : 1965 Age: 51 Exam(s) [id number] US:Carotid SYMPTOMS/DIAGNOSIS: NEAR SYNCOPE, R55 BILATERAL DUPLEX CAROTID ULTRASOUND: Duplex evaluation of the carotid circulation was performed according to the usual protocol. There is bilateral antegrade vertebral flow. Minimal atheromatous plaque formation is noted in the carotid bifurcations bilaterally. Flow velocities in the common, internal and external carotid arteries are within normal limits bilaterally. CONCLUSION: No evidence of a hemodynamically significant carotid stenosis. Ordered By: Altaf Hoover M.D. CC: Dictated By: Dallas Roth M.D. 04/25/17 1135 <Electronically signed by Dallas Roth M.D.> 04/25/17 1334 Transcribed By: Shelby Marr 04/25/17 1304 This is privileged, confidential information intended only for the provider named. Any use or distribution by any person other than this provider is strictly prohibited. If you receive this report in error, please notify us immediately at [phone] and return the original report to us at the address above. Thank-you. Pulmonary Function Summary: Pulmonary Function Test PATIENT NAME: SAMY PATRICIO UNIT #: [id number] ADMITTING PROVIDER: ADITYA QUESADA MD PRIMARY CARE PROVIDER: ABI GALLEGOS NP DATE OF ADMIT: 11/19/18 : 1965 PULMONARY FUNCTION TEST REPORT Patient - Samy Patricio DATE OF 67 DATE OF SERVICE November 19, 2018 REQUESTING PROVIDER Abi Gallegos NP INTERPRETATION OF STUDY Spirometry shows mild obstructive airways disease with no significant bronchodilator response. LUNG VOLUMES - Lung volumes show no evidence of restriction. DIFFUSION CAPACITY- Normal. AIRWAY RESISTANCE - Normal. IMPRESSION Mild obstructive airways disease with no significant bronchodilator response. Clinical correlation recommended. Deandre Babb/ T- 11/22/2018 Dictated by: SANGITA VASQUEZ, ADITYA Dict Date: 11/19/18 Dict Time: 0000 <Electronically signed by ADITYA QUESADA MD> Date: 11/23/18 Time: 1045 Anesthesia Assessment and Plan Anesthesia History Personal History: No History of Anesthesia Complications Family History: No Family History of Anesthesia Complications Exercise Tolerance Exercise Tolerance: Metabolic Equivalents>4 Pertinent Negatives Pertinent Negatives: No Symptoms of GERD, No Major Cardiovascular Symptoms or Complaints, No Major Pulmonary Symptoms or Complaints and No History of CVA/TIA Cardiac & Pulmonary Exam Cardiac Exam: Normal S1/S2 Heart Sounds Pulmonary Exam: Clear Bilateral Breath Sounds Implantable Cardiac Device Does patient have a Pacemaker or an ICD?: No Airway Exam Known Difficult Airway: No Mallampati Class: 3 Mouth Opening: Normal (> 3cm) Thyromental Distance: Greater than 3 cm Facial Hair: Full Mata Neck Range of Motion: Limited ROM (pt reports intermittent pain and numbness in hands related to neck movement ) Neck Circumference: Thick Teeth Condition: Normal Dentition ASA Classification ASA Score: ASA 3 Emergency Case?: No NPO Status NPO Status: NPO Clears >2 hours, Solids >8 hours Anesthesia Plan Resuscitation Status: Full Code Anesthesia Technique: General Anesthesia Airway Planned: Natural Airway Monitors Used: Standard Monitors
[2023-05-08 08:39] VITALS: BMI 40.6
[2023-05-08] MEDS: Lidocaine 2% Jelly 11 ML SYR (09:12)
--- NOTE | 2023-05-08 09:17 | PDOC.DSDIS_ITS ---
Date of service: 05/08/23 Time of Service: 09:17 Discharge Plan Disposition Patient Disposition: Home Discharge Details Reason For Visit: cystoscopy Attending Provider: Paramjit Fu Primary Care Provider: Karen Barbosa Home Meds and New Rx's Prescriptions: No Action insulin degludec 200 unit/mL (3 mL) insulin pen 80 unit subcut BID Qty: 36 3RF glucagon HCl [Glucagon (HCl) Emergency Kit] 1 mg recon soln 1 mg subcut Q20M PRN (Reason: hypoglycemia) Qty: 1 3RF Rx Instructions: until target blood sugar attained metoprolol succinate 50 mg tablet extended release 24 hr 25 mg PO DAILY Qty: 90 3RF bisacodyl [Dulcolax (bisacodyl)] 5 mg tablet,delayed release (DR/EC) 5 mg PO ONCE Qty: 4 0RF Rx Instructions: Take per colonoscopy instructions provided by ordering providers office polyethylene glycol 3350 17 gram/dose powder 17 g PO ONCE Qty: 238 0RF Rx Instructions: Take per colonoscopy instructions provided by ordering providers office vitamin B complex [B Complex-Vitamin B12] Tablet 1 tab PO DAILY metformin 1,000 mg tablet 1,000 mg PO BID Qty: 180 3RF nitroglycerin 0.4 mg tablet, sublingual See Rx Instructions .ROUTE .COMPLEX Qty: 100 3RF Dose Instruction: PLACE ONE TABLET UNDER THE TONGUE EVERY 5 MINUTES FOR UP TO 3 DOSES NEEDED FOR CHEST PAIN. IF CHEST PAIN STILL PERSISTS CONTACT 911 Rx Instructions: PLACE ONE TABLET UNDER THE TONGUE EVERY 5 MINUTES FOR UP TO 3 DOSES NEEDED FOR CHEST PAIN. IF CHEST PAIN STILL PERSISTS CONTACT 911 atorvastatin 80 mg tablet 80 mg PO QHS Qty: 90 3RF albuterol sulfate 90 mcg/actuation HFA aerosol inhaler 2 puff inhalation Q6H PRN (Reason: shortness of breath or wheezing) Qty: 8.5 4RF (DME) Dexcom G7 Sensor Device See Rx Instructions .Route Qty: 1 12RF Rx Instructions: As directed Trelegy Ellipta 200-62.5-25 mcg blister with device 1 inh inhalation DAILY Qty: 60 4RF folic acid 1 mg tablet 1 mg PO DAILY Qty: 90 4RF pyridostigmine bromide 60 mg tablet 60 mg PO TID PRN (Reason: activity or dizzness) Qty: 90 3RF Rx Instructions: Take 30min-1hour prior to increased activity/prolonged driving to prevent dizziness Humalog KwikPen Insulin 200 unit/mL (3 mL) insulin pen 40 unit subcut QACHS Qty: 24 12RF Rx Instructions: total daily dose 160 units daily aspirin [Aspir-81] 81 MG tablet,delayed release (DR/EC) 81 mg PO DAILY Patient Comments: 08-28-17 per [facility]. -hb acetaminophen 325 mg tablet 650 mg PO Q6H PRN empagliflozin 25 mg tablet 25 mg PO DAILY Qty: 90 3RF Hold Instructions: Adverse Reaction pantoprazole 40 mg tablet,delayed release (DR/EC) 40 mg PO BID Qty: 180 3RF (DME) pen needle, diabetic [Comfort EZ Pen [place]] 31 gauge x 1/4 needle See Rx Instructions .ROUTE .MEDSUPPLY Qty: 500 4RF Rx Instructions: Five times daily torsemide 20 mg tablet 40 mg PO DAILY Qty: 180 1RF colchicine [Colcrys] 0.6 mg tablet See Rx Instructions PO .COMPLEX Qty: 30 2RF Rx Instructions: 2 tabs once and May repeat 1 tab 6 hours later. May use once daily until symptoms improve; tamsulosin [Flomax] 0.4 mg capsule 0.4 mg PO DAILY Qty: 90 3RF Discharge Instructions Additional Instructions: followup already scheduled Discharge Orders Discharge Orders: Discharge Order (Routine); Ordered 05/08/23 Ordered By: Paramjit Fu DS: Diagnosis Discharge Diagnosis (1) Gross hematuria: Status: Acute
--- NOTE | 2023-05-08 09:20 | ROE_ITS ---
Date of service: 05/08/23 Time of Service: 09:20 Operative Note Operative Note DATE OF PROCEDURE: 05/08/23 PRE-OP DIAGNOSIS: Gross hematuria POST-OP DIAGNOSIS: same meatal stenosis PROCEDURE: cystoscopy with urethral dilation SURGEON: Paramjit Fu ANESTHESIA TYPE: Local By Surgeon and General:No Airway Refer to Anesthesia Record ESTIMATED BLOOD LOSS: 5 PATHOLOGY: none sent COMPLICATIONS: None Patient was transported to: same day Patient's condition: stable Implants: none Indications: This is a 57-year-old gentleman who has a history of lower urinary tract symptoms. He has had a previous urinary tract infection back in December of this past year. His cultures grew E. coli at that time. Imaging studies showed some perinephric stranding on the left but no sign of renal mass or stones. He had an episode of gross blood from the urethra. He did not really see blood mixed with his urine. He presents now for cystoscopy for evaluation of his lower urinary tract Findings: meatal stenosis no bladder tumors/stones Procedure Description: The patient was given antibiotics and brought to the operating room on 05/08/2023. After successful induction of general anesthesia, he was placed in the dorsal lithotomy position. His genitalia was prepped and draped. 2% Xylocaine jelly was instilled into the urethra to act as a local anesthetic. I was initially unable to pass a 22 [place] cystoscope through the urethral meatus. I dilated the meatus up to a size 26 [place] using Laureen sounds. I was then able to pass the cystoscope and I inspected the urethra using a 30 degree lens. The pendulous, bulbar and membranous urethra appeared normal with very mild strictured areas but no areas that restricted the passage of the scope. The prostatic urethra showed some lateral lobe enlargement but no active bleeding, no papillary lesions on the mucosa and no stones. The bladder neck was entered and the bladder mucosa was inspected. Both ureteral orifices appeared normal with no blood coming from either side. The remainder of the bladder showed no papillary or nodular lesions. These findings were confirmed on reinspection of the bladder using the 70 degree lens. The bladder was emptied and the cystoscope was withdrawn. The patient tolerated this procedure well with no complications. He was taken back to the day surgery unit in stable condition.
[2023-05-08 09:23] VITALS: BP 119/76; PULSE 88; RESP 17; TEMP 36.3; O2SAT 97
[2023-05-08] MEDS: Phenazopyridine 200 MG TAB PO (09:40)
[2023-05-08 10:15] VITALS: BP 96/65; PULSE 80; RESP 17; TEMP 36.1; O2SAT 97
--- NOTE | 2023-05-09 07:03 | W.ANESPOSTOP ---
Postoperative Evaluation Date, Time and Location Date Performed: 05/08/23 Time Performed: 09:40 Patient Location: Day Surgery Unit Vital Signs Most Recent Imported Vital Signs: Most Recent Vital Signs Temp Pulse Resp BP Pulse Ox 36.1 C L 80 17 96/65 L 97 05/08/23 10:15 05/08/23 10:15 05/08/23 10:15 05/08/23 10:15 05/08/23 10:15 Pain Score Most Recent Pain Score: Most Recent Pain Score Pain Level 0 05/08/23 10:15 Assessment Mental Status: Awake (Alert & Oriented to Patient Baseline) Airway and Respiratory Function: Patent airway with normal (patient baseline) respiratory exam Cardiovascular Function: Hemodynamically Stable Hydration Status: Adequately Hydrated Nausea & Vomiting: No Nausea or Vomiting Pain: Pt. Denies Any Pain Peripheral Nerve Block: Patient did not receive a nerve block
== END 2023-05-08 10:40 | disposition home or self-care (01) ==
PROVIDERS: PCP Family Medicine; Visit Provider Urology
PROC: 0TBB8ZZ Excision of Bladder, Via Natural or Artificial Opening Endoscopic (ICD-10-PCS; CPT 52281; principal; 2023-05-08 09:00)
DX: N35.911 Unspecified urethral stricture, male, meatal (principal); R31.0 Gross hematuria; E11.22 Type 2 diabetes mellitus with diabetic chronic kidney disease; Z79.4 Long term (current) use of insulin; N18.31 Chronic kidney disease, stage 3a
CPT/HCPCS: 52281; J1100; J1885; J2001; J2405; J2704

== ENCOUNTER 2023-05-11 07:51 | Day surgery (SDC) | payer MEDICARE, OTHER, SELFPAY ==
[2023-05-11 07:54] VITALS: BP 114/78; PULSE 88; RESP 16; TEMP 36.5; O2SAT 98
[2023-05-11] MEDS: Lactated Ringers 1,000 ML 80 ML IV (08:12)
--- NOTE | 2023-05-11 08:22 | ANES.PREOP_ITS ---
General Info Date of Service Date Performed: 05/11/23 Height: 6 ft Weight: 136.5 kg Body Mass Index (BMI): 40.8 Surgical Procedure: Operation Date: 05/11/23 09:50 Proposed Procedure Side Surgeon p Colonoscopy/Gastroscopy Chang Martel MD Meds Allergies and Home Medications Allergies Allergy/AdvReac Type Severity Reaction Status Date / Time venlafaxine AdvReac Severe Nausea Verified 05/11/23 08:07 doxycycline AdvReac Intermediate Cold Verified 05/11/23 08:07 Chills, made him sick. liraglutide [From Victoza] AdvReac Intermediate GI upset Verified 05/11/23 08:07 Home Medication Medication Instructions Recorded aspirin 81 mg tablet,delayed 81 mg PO DAILY 08/28/17 release (Aspir-) acetaminophen 325 mg tablet 650 mg PO Q6H PRN 06/27/19 vitamin B complex (B 1 tab PO DAILY 08/19/19 Complex-Vitamin B12 tablet) metformin 1,000 mg tablet 1,000 mg PO BID #180 tab-caps 02/23/22 empagliflozin 25 mg tablet 25 mg PO DAILY #90 tabs 06/07/22 pantoprazole 40 mg tablet,delayed 40 mg PO BID #180 tabs 08/04/22 release albuterol sulfate 90 mcg/actuation 2 puff inhalation Q6H PRN 09/30/22 aerosol inhaler shortness of breath or wheezing #8.5 grams atorvastatin 80 mg tablet 80 mg PO QHS #90 tabs 09/30/22 blood-glucose sensor (Dexcom G7 #1 ea 09/30/22 Sensor device) fluticasone fur. 200 mcg-umeclid 1 inh inhalation DAILY #60 ea 09/30/22 62.5 mcg-vilant 25 mcg inhalat.powder (Trelegy Ellipta) folic acid 1 mg tablet 1 mg PO DAILY #90 tabs 09/30/22 nitroglycerin 0.4 mg sublingual See Rx Instructions .Route 09/30/22 tablet .COMPLEX #100 tabs glucagon HCl 1 mg solution for 1 mg subcut Q20M PRN hypoglycemia 10/14/22 injection (Glucagon (HCl) #1 ea Emergency Kit) pen needle, diabetic 31 gauge x #500 ea 12/01/22 1/4 (Comfort EZ Pen Loring) metoprolol succinate 50 mg 25 mg (1/2 x 50 mg) PO DAILY #90 12/21/22 tablet,extended release 24 hr tabs insulin degludec 200 unit/mL (3 80 unit (0.4 mL) subcut BID #36 mL 12/30/22 mL) subcutaneous pen torsemide 20 mg tablet 40 mg (2 x 20 mg) PO DAILY #180 02/10/23 tabs insulin lispro 200 unit/mL (3 mL) 40 unit (0.2 mL) subcut QACHS #24 03/01/23 subcutaneous pen (Humalog KwikPen mL U-200 Insulin) colchicine 0.6 mg tablet (Colcrys) See Rx Instructions PO .COMPLEX 03/07/23 #30 tabs pyridostigmine bromide 60 mg tablet 60 mg PO TID PRN activity or 03/15/23 dizzness #90 tabs tamsulosin 0.4 mg capsule (Flomax) 0.4 mg PO DAILY #90 caps 04/05/23 Current Visit Medications: Current Medications Generic Name Dose Route Start Last Admin Trade Name Gricelda PRN Reason Stop Dose Admin Ringer's Solution 1,000 mls @ 80 mls/hr 05/11/23 06:00 05/11/23 08:12 IV 06/09/23 23:59 80 mls/hr INFUSION YAW Administration IV Miscellaneous Supplies 1 each 05/11/23 06:00 Iv Access IV 06/09/23 23:59 DIRECTED YAW Sodium Chloride 0 ml 05/11/23 06:00 Normal Saline Flush 10 Ml Syr IV 06/09/23 23:59 PRN PRN Sodium Chloride 0 ml 05/11/23 06:00 Normal Saline 10 Ml Vial IJ 06/09/23 23:59 DIRECTED PRN Sterile Water 0 ml 05/11/23 06:00 Water,Injection,Sterile 10 Ml Vial IJ 06/09/23 23:59 DIRECTED PRN PFSH Active Problems Active Problems: Problem Status Onset Code Gross hematuria R31.0 Ganglion cyst of dorsum of right wrist M67.431 Cubital tunnel syndrome on left G56.22 Carpal tunnel syndrome of right wrist G56.01 Carpal tunnel syndrome of left wrist G56.02 Gout due to renal impairment, multiple sites M10.39 Hyperuricemia E79.0 ALTMAN (nonalcoholic steatohepatitis) 01/04/23 K75.81 Prostatitis, acute N41.0 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 Peripheral artery disease I73.9 Orthostatic hypotension I95.1 Diabetes mellitus with stage 3a chronic kidney disease, with long-term current use of insulin E11.22, N18.31, Z79.4 Type 2 diabetes mellitus with diabetic neuropathy, with long-term current use of insulin E11.40, Z79.4 Lumbosacral spondylosis without myelopathy M47.817 Memory change R41.3 Claudication I73.9 Obesity E66.9 Bilateral lower extremity edema R60.0 Erectile dysfunction N52.9 BPH loc w urin obs/LUTS N40.1 Actinic keratosis due to exposure to sunlight L57.0 Tubular adenoma ~04/2020 D36.9 Serrated adenoma of colon ~04/2020 D12.6 Colon polyp, hyperplastic ~04/2020 K63.5 Diabetic peripheral neuropathy E11.42 GERD (gastroesophageal reflux disease) K21.9 HTN (hypertension) I10 Smoker F17.200 CAD S/P percutaneous coronary angioplasty 08/28/17 I25.10, Z98.61 Hyperlipidemia CARLOTA (obstructive sleep apnea) Depression with anxiety Medical History Medical History Pyelonephritis due to Escherichia coli History of left heart catheter[place] [facility] 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 Cervical disc disease Chronic neck pain Tubular adenoma of colon (02/18/14) Thoracic spine pain (07/17/15) Spondylosis of cervical region without myelopathy or radiculopathy (04/17/15) Chronic pain syndrome (09/30/16) 08/19/16-CONTROLLED SUBSTANCE AGREEMENT-APPROVED FOR 3 MONTHS Chronic obstructive lung disease Chronic left-sided low back pain with left-sided sciatica (12/03/15) Blindness, 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 Acute nontraumatic kidney injury Parastomal hernia Surgical History Surgical History Status post vasectomy Status post Luisana fundoplication Status post inguinal hernia repair Status post carpal tunnel release History of esophagogastroduodenoscopy History of incisional hernia repair with mesh right ulnar graft left shoulder repair Luisana Fundoplication Colonoscopy - MAC 02/18/14 Tobacco Smoking/Tobacco Use Status: Current every day Tobacco Type: cigarettes Smoking packs per day: 2 Smoking cigarettes per day: 40.0 Passive smoking exposure: Yes Second hand exposure: Yes Counseling given: provider counseling Alcohol Alcohol Intake: current Alcohol intake frequency: holidays/special occasions only Substance Use Substance use: Never Substance use type: does not use Vital Signs and Lab Results Vital Signs Most Recent Vital Signs in EMR: Most Recent Vital Signs Temp Pulse Resp BP Pulse Ox 36.5 C 88 16 114/78 98 05/11/23 07:54 05/11/23 07:54 05/11/23 07:54 05/11/23 07:54 05/11/23 07:54 Point of Care Results Point of Care Results: Finger Stick Blood Glucose 132 05/11/23 07:54 Lab Results Blood Type / Crossmatch: No Data to Display Complete Blood Count: No Data to Display Complete Metabolic Panel: Hemoglobin A1c 7.4 % (4.5-5.7) H 04/24/23 15:44 Liver Function Panel: No Data to Display Coagulation Panel: No Data to Display Cardiac Panel: No Data to Display Arterial Blood Gas: No Data to Display Venous Blood Gas: No Data to Display Pancreas Panel: No Data to Display Thyroid Panel: No Data to Display Infectious Disease: No Data to Display Blood Cultures: No Data to Display Toxicology Panel: No Data to Display Imaging and Studies Imaging and Studies Study information below may be from another EMR and interpreted by another provider. Please see original notes in EMR for more complete details. EKG Summary: EKG PATIENT NAME: Samy Patricio Jr UNIT #: [id number] ORDERING PROVIDER: Nga Barron PRIMARY CARE PROVIDER: KAREN BARBOSA MD DATE/TIME OF SERVICE: 10/04/22 1545 : 1965 PERFORMING LOCATION: ER APPROVED REPORT Exam: Resting ECG Reason for Exam: chest pain Patient Location: E HR:57 bpm ECG Measurements Heart Rate 57 AXIS WI 198 P 69 QRSd 100 QRS 66 QT 461 T32 QTc 449 Conclusion Sinus bradycardia...rate< 60 sinus rhythm, normal axis, normal intervals, non ischemic <Electronically signed by Asa Tucker M.D. in OV> E-Sign Date: 10/09/22 E-Sign Time: 1615 ADDENDUM APPROVED REPORT Exam: Resting ECG Reason for Exam: chest pain Patient Location: E HR:57 bpm ECG Measurements Heart Rate 57 AXIS WI 198 P 69 QRSd 100 QRS 66 QT 461 T32 QTc 449 Conclusion Sinus bradycardia...rate< 60 sinus rhythm, normal axis, normal intervals, non ischemic I have reviewed and I agree with the emergency room physician's ECG interpretation. Electronically signed by: <Electronically signed by Eileen Kingston M.D. in OV> 10/10/22 0816 Cosigned by: Stress Test Summary: Patient Name: SAMY PATRICIO Unit #: [id number] Loc: Ordering Provider: Jg Stubbs M.D. Status: REG CLI Primary Care Provider: Abi Gallegos Date of Exam: 04/23/18 Sex: M : 1965 Age: 52 Exam(s) a NM:NM MPI rest & stress grp *[facility]* *[facility]* [address] [place] [address] Myocardial Perfusion Imaging - SPECT Cabrera protocol Date of study: 04/23/2018 *PATIENT PRESENTATION* Height: 182.9cm (72in) Blood Pressure: Weight: 120.9kg (266lb) BSA: 2.52m^2 Referring physician: Evonne Bowens Ordering physician: Jg Stubbs Impressions: - Normal study after pharmacologic stress. - Good functional capacity - stress converted to pharm stress as THR not achieved. Summary: 1. Myocardial perfusion imaging: No myocardial perfusion defects noted. 2. The calculated left ventricular ejection fraction after stress: 70%. LV global systolic function is normal. No left ventricular regional motion abnormality. 3. Stress: The target heart rate was not achieved. Indication: R07.9. History: REASON FOR TESTING: PATIENT PRESENTED TO THE ED ON 04/13/18 WITH INTERMITTENT EPISODES OF MIDSTERNAL SHARP CHEST PAINS, ALTHOUGH AT OTHER TIMES HIS CHEST PAIN WILL BE A DULL PRESSURE. CHEST PAIN OCCURS AT REST AND WITH ACTIVITY. TROPONINS IN ER WERE NEGATIVE. PATIENT REPORTS HAVING INTERMITTENT CHEST PAIN FOR THE PAST 18 MONTHS. CHEST PAIN OCCASIONALLY WILL RADIATE TO NECK AND HE MAY HAVE DIAPHORESIS. TODAY PATIENT DENIES CHEST PAIN UPON ARRIVAL TO EXERCISE TESTING. SIGNIFICANT PAST MEDICAL HISTORY: STATUS POST RCA PCI FOR STEMI IN AUGUST 2017. TWO STENTS PLACED IN AUGUST 2017. SMOKING STATUS: SMOKER 40 YEARS, 2 PPD EXERCISE ROUTINE: DAILY ADL'S. PMH: COPD. Risk factors: Family history of coronary artery disease. Current tobacco use. Dyslipidemia. Cholesterol: 147mg/dl. HDL: 31mg/dl. LDL: 77mg/dl. Triglycerides: 313mg/dl. ALLERGIES: NO KNOWN ALLERGIES. MEDICATIONS: ACETAMINOPHEN 650 MG PRN, ASPIRIN 81 MG DAILY, ATORVASTATIN 20 MG HS, PLAVIX 75 MG DAILY, GLIPIZIDE 5 MG HS, ISOSORBIDE MONONITRATE 30 MG DAILY, METFORMIN 1000 BID, METOPROLOL 25 MG DAILY, NITROGLYCERIN 0.4 MG PRN, PANTOPRAZOLE 40 MG HS, PROAIR HFA 2 PUFFS PRN. Imaging Technique: Protocol: Cabrera protocol. Acquisition: Gated SPECT; 1 day - rest/stress. The patient was imaged in the supine position. Attenuation correction used. Isotope administration: - Rest. Tc[99m]-sestamibi. Dose: 11.7mCi. Injection time: 08:15 AM. Injection to stress time: 00:45. - Stress. Tc[99m]-sestamibi. Dose: 37.1mCi. Injection time: 10:35 PM. 1-2 min before end of exercise Baseline ECG: SINUS RHYTHM. HR 76 BPM. Stress protocol: + +---+ + + !Stage !HR !BP (mmHg) !Comments ! + +---+ + + !Baseline supine !76 !136/90 (105)! ! + +---+ + + !Baseline standing !85 !124/90 (101)! ! + +---+ + + !Stage I; 1.7mph, 10degrees; 3 min!113!152/84 (107)! ! + +---+ + + !Stage II; 2.5mph, 12degrees; 3 !117!168/84 (112)! ! !min ! ! ! ! + +---+ + + !Peak stress !129! ! ! + +---+ + + !Recovery; 1 min !115!170/80 (110)! ! + +---+ + + !1 min !101!158/84 (109)!Inject Regadenoson.! + +---+ + + !3 min !94 !140/88 (105)! ! + +---+ + + !6 min !86 !140/90 (107)! ! + +---+ + + * Stress results: STRESS TEST ENDED IN 9 MINUTES 1 SECOND DUE TO FATIGUE. PATIENT DID NOT MEET TARGET HEART RATE. NORMAL HEART RATE AND BLOOD PRESSURE RESPONSE TO EXERCISE. MAX HEART RATE: 129 76 % OF TARGET HEART RATE. MET'S: 1035 RARE PAC'S WITH EXERCISE. NO ANGINA NO SIGNIFICANT ST SEGMENT CHANGES. FUNCTIONAL CAPACITY: AVERAGE CAPACITY. TRANSITIONED TO LEXISCAN BECAUSE TARGET HEART RATE NOT ACHIEVED. LEXISCAN PROTOCOL STRESS TEST ENDED IN 7 MINUTES 13 SECONDS. NORMAL HEART RATE AND BLOOD PRESSURE RESPONSE TO LEXISCAN INJECTION. NO ANGINA. NO SIGNIFICANT ST SEGMENT CHANGES. Maximal heart rate during stress was 129bpm (76% of maximal predicted heart rate). The maximal predicted heart rate was 169bpm. The target heart rate was not achieved. The rate-pressure product for the peak heart rate and blood pressure was 03882ii Hg/min. Myocardial perfusion: Imaging information: gated. Left ventricular size is normal. No myocardial perfusion defects noted. Ventricular Function (Wall Motion): The calculated left ventricular ejection fraction after stress: 70%. LV global systolic function is normal. No left ventricular regional motion abnormality. Study data: Evonne Bowens MD supervised and was readily available during the procedure. This study was interpreted by [facility]. Study status: Routine. Consent: The risks, benefits, and alternatives to the procedure were explained to the patient and informed consent was obtained. Procedure: Initial setup. A baseline ECG was recorded. Surface ECG leads and manual cuff blood pressure measurements were monitored. Heart sounds: Normal. Lung sounds: Normal. Treadmill exercise testing was performed using the Cabrera protocol. Study completion: All catheters inserted during the procedure were removed. The patient tolerated the procedure well and was discharged from the lab. Discharge: The patient left the laboratory in stable condition. Birthdate: Patient birthdate: 1965. Sex: Gender: male. Study date: Study date: 04/23/2018. Study time: 00:01 AM. Signature Documentation: - The imaging portion of this study was interpreted by Nuclear [employer] Cutter Hand Evonne Bowens MD. - The imaging portion of this study was interpreted by Nuclear Radiologist Jeovanny Larson MD. - The Stress ECG portion of this study was interpreted by Evonne Bowens MD. Electronically signed by Evonne Bowens 04/23/2018 15:04 Ordering provider: Jg Stubbs M.D. CC: EVONNE BOWENS MD Dictated by: Jeovanny Larson M.D.04/23/18 1400 <Electronically signed by Jeovanny Larson M.D.>04/24/18 1256 Disclaimer: The [facility] radiologist is signing only the Nuclear Medicine MPI Imaging exam portion of the report. Transcribed by: Lottie Sanchez04/24/18 0828 This is privileged, confidential information intended only for the provider named. Any use or distribution by any person other than this provider is strictly prohibited. If you receive this report in error, please notify us immediately at [phone] and return the original report to us Echocardiogram Summary: Patient Name: Samy Patricio Jr Unit #: [id number] Loc: DI Ordering Provider: Karen Barbosa M.D. Status: [facility] Primary Care Provider: Karen Barbosa M.D. Date of Exam: 12/17/21 Sex: M Admission Date: 12/17/21 : 1965 Age: 56 APPROVED REPORT EXAM: Comprehensive 2D, Doppler, and color-flow Echocardiogram Patient Location: Out-Patient Bilingual Operator: Ely Hawthorne RDCS (AE) Indications: Lower extremity edema, CAD Other Information Study Quality: Adequate Conclusion Normal left ventricular wall thickness and chamber size. Estimated ejection fraction is 55 to 60%. Wall motion is normal Normal right ventricular size and systolic function Both atria are normal in size There is no structural or hemodynamically significant valvular disease Wall motion Left Ventricle The left ventricle is normal size. The left ventricular systolic function is normal. The left ventricular ejection fraction is within the normal range. There is normal left ventricular wall thickness. There is normal LV segmental wall motion. There is no ventricular septal defect visualized. LVEF is 57%. Right Ventricle The right ventricle is normal size. The right ventricular systolic function is normal. Atria The left atrium size is normal. The right atrium size is normal. The interatrial septum is intact with no evidence for an atrial septal defect. Aortic Valve The aortic valve is normal in structure. There is no aortic valvular stenosis. No aortic regurgitation is present. Mitral Valve The mitral valve is normal in structure. No evidence of mitral valve stenosis. Trace mitral regurgitation. Tricuspid Valve The tricuspid valve is normal in structure. There is no tricuspid valve stenosis. Trace tricuspid regurgitation. Unable to assess PA pressure. Pulmonic Valve The pulmonary valve is normal in structure. There is no pulmonic valvular stenosis. There is no pulmonic valvular regurgitation. Great Vessels The aortic root is normal in size. The ascending aorta is normal in size. Aortic arch is not well visualized. IVC is normal in size and collapses >50% with inspiration. Pericardium There is no pericardial effusion. 2D Dimensions IVSD d PLAX 0.96 cm M: 0.6-1.2LV Vol A2C d MOD 126.5 mL LVPW d PLAX 1.05 cm M: 0.6 - 1.2LV Vol A4C d MOD 141.5 mL LVID d PLAX 4.79 cm M: 4.2 - 5.8LA vol/ BSA A2C s A-L18.6 mL/m2 LVDs 3.25 cm M: 2.5 - 4.0LA vol/ BSA A4C s A-L23.2 mL/m2 Ao Root d 3.11 cm M: 3.1 - 3.7LA Vol/ BSA Biplane s A-L 22.0 mL/m2 RA Area A4C15.25 cm2LA Area A4C s MOD 21.43 cm2 RA Vol/ BSA A4C s A-L 14.8 mL/m2LA Area A2C s MOD 18.15 cm2 Ao Asc Diam d 3.43 cm M: 2.6 - 3.4LV EF A4C MOD 56.5 % LV EF Teichholz 59.3 %LV EF A2C MOD 57.9 % LVEF (Hi's)57.26 % M: 52 - 72LV EF Biplane MOD 57.3 % LV Ggzblp57.06 mL M: 62 - 314GF30.01 mL LV Volume Index35.79 mL/m2 M: 34 - 74SV Index29.56 mL/m2 LV Vol Biplane MOD 134.5 mL FS31.45 % M-Mode TAPSE 1.89 cm (M/F) >1.7 LV Diastology MV E' medial0.088 (>0.07 m/s)E/A Ratio 0.8 LV E/e MED8.25 (<14)MV E Vmax 0.73 (0.4-1.3 m/s) MV E' lateral0.094 (>0.1 m/s)MV A Vmax 0.90 (0.4-1.3 m/s) LV E/e LAT7.70 (<14)MV E/A Ratio 0.79 MV E/E' medial 8.26 MV E/E' lateral7.72 Aortic Valve LVOT Area3.82 cm2AoV Area Vmax3.49 cm2 LVOT Vmax 1.19 m/sAoV Area/ BSA (Vmax)1.34 cm2/m2 LVOT Mean Shubham.0.73 m/sAVA Mean Shubham.3.06 cm2 LVOT Peak Grad 5.7 mmHgAVA Mean Shubham. Index1.18 cm2/m2 LVOT Mean Grad 2.6 mmHg LVOT VTI0.250 m LVOT Diam s 2.20 cm AoV Vmax1.30 m/s Velocity Ratio 0.91 AoV Mean Shubham.0.91 m/s AoV Peak Grad6.8 mmHg LVOT SV 95.46 mL AoV Mean Grad3.7 mmHg AoV VTI0.255 m AoV Area VTI3.75 cm2 AoV Area/ BSA (VTI)1.44 cm/m2 Mitral Valve MV DT 239 (160-240 msec) MV PHT69 msec MV Area PHT 3.17 cm2 MV VTI 0.316 m MV Area VTI 3.02 (4.0-6.0 cm2) Pulmonary Valve PV Vmax 0.96 (0.5-1.5 m/s)RVOT Peak Gr.1.66 mmHg PV Peak Grad 3.7 mmHgRVOT Mean Gr.0.90 mmHg PV Mean Grad 2.1 mmHgRVOT VTI0.152 m PV VTI 0.201 mRVOT Vmax 0.64 m/s Ordered By: Karen Barbosa M.D. CC: Dictated By: Eileen Kingston M.D. 12/17/21 1313 <Electronically signed by Eileen Kingston M.D. in OV> 12/20/21 0905 Transcribed By: Eileen Kingston MD This is privileged, confidential information intended only for the provider named. Any use or distribution by any person other than this provider is strictly prohibited. If you receive this report in error, please notify us immediately at [phone] and return the original report to us at the address above. Thank-you. Carotid Artery Summary:: Patient Name: SAMY PATRICIO JR Unit #: [id number] Loc: DI Ordering Provider: Altaf Hoover M.D. Status: REG [facility] Primary Care Provider: Altaf Hoover M.D. Date of Exam: 04/25/17 Sex: M : 1965 Age: 51 Exam(s) [id number] US:Carotid SYMPTOMS/DIAGNOSIS: NEAR SYNCOPE, R55 BILATERAL DUPLEX CAROTID ULTRASOUND: Duplex evaluation of the carotid circulation was performed according to the usual protocol. There is bilateral antegrade vertebral flow. Minimal atheromatous plaque formation is noted in the carotid bifurcations bilaterally. Flow velocities in the common, internal and external carotid arteries are within normal limits bilaterally. CONCLUSION: No evidence of a hemodynamically significant carotid stenosis. Ordered By: Altaf Hoover M.D. CC: Dictated By: Dallas Roth M.D. 04/25/17 1135 <Electronically signed by Dallas Roth M.D.> 04/25/17 1256 Transcribed By: Shelby Marr 04/25/17 1308 This is privileged, confidential information intended only for the provider named. Any use or distribution by any person other than this provider is strictly prohibited. If you receive this report in error, please notify us immediately at [phone] and return the original report to us at the address above. Thank-you. Pulmonary Function Summary: Pulmonary Function Test PATIENT NAME: SAMY PATRICIO UNIT #: [id number] ADMITTING PROVIDER: ADITYA QUESADA MD PRIMARY CARE PROVIDER: ABI GALLEGOS NP DATE OF ADMIT: 11/19/18 : 1965 PULMONARY FUNCTION TEST REPORT Patient - Samy Patricio DATE OF 67 DATE OF SERVICE November 19, 2018 REQUESTING PROVIDER Abi Gallegos NP INTERPRETATION OF STUDY Spirometry shows mild obstructive airways disease with no significant bronchodilator response. LUNG VOLUMES - Lung volumes show no evidence of restriction. DIFFUSION CAPACITY- Normal. AIRWAY RESISTANCE - Normal. IMPRESSION Mild obstructive airways disease with no significant bronchodilator response. Clinical correlation recommended. Deandre Babb- 11/22/2018 Dictated by: ADITYA QUESADA MD Date: 11/19/18 Dict Time: 0000 <Electronically signed by ADITYA QUESADA MD> Date: 11/23/18 Time: 1045 Anesthesia Assessment and Plan Anesthesia History Personal History: No History of Anesthesia Complications Family History: No Family History of Anesthesia Complications Exercise Tolerance Exercise Tolerance: Metabolic Equivalents>4 Pertinent Negatives Pertinent Negatives: No Symptoms of GERD, No Major Pulmonary Symptoms or Complaints and No History of CVA/TIA Cardiac & Pulmonary Exam Cardiac Exam: Normal S1/S2 Heart Sounds Pulmonary Exam: Clear Bilateral Breath Sounds Implantable Cardiac Device Does patient have a Pacemaker or an ICD?: No Airway Exam Known Difficult Airway: No Mallampati Class: 3 Mouth Opening: Normal (> 3cm) Thyromental Distance: Greater than 3 cm Neck Range of Motion: Limited ROM (pt reports intermittent pain and numbness in hands related to neck movement ) Neck Circumference: Thick Teeth Condition: Normal Dentition ASA Classification ASA Score: ASA 3 Emergency Case?: No NPO Status NPO Status: NPO Clears >2 hours, Solids >8 hours Anesthesia Plan Resuscitation Status: Full Code Anesthesia Technique: General Anesthesia Airway Planned: Natural Airway Monitors Used: Standard Monitors
[2023-05-11 08:32] VITALS: BMI 40.8
--- NOTE | 2023-05-11 08:42 | SCONE_ITS ---
Date of service: 05/11/23 Time of Service: 08:52 Assessment and Plan Assessment and plan (1) Colon polyps: Status: Acute Assessment and plan: 57-year-old man with history of colon polyps and Diaz's esophagus due for surveillance upper and lower endoscopy. Overall plan: Colonoscopy and EGD History of Present Illness Narrative: 57-year-old man is due for surveillance colonoscopy because of multiple polyps found on last colonoscopy. There is a family history of colon cancer in his mother. Separately he has a long?standing Diaz's esophagus. His symptoms are controlled with antacid medication. PFSH All Active Problems (Updated 05/11/23 @ 08:54 by Chang Martel MD) Colon polyps (Acute) Gross hematuria (Acute) Ganglion cyst of dorsum of right wrist (Acute) Cubital tunnel syndrome on left (Acute) Carpal tunnel syndrome of right wrist (Acute) Carpal tunnel syndrome of left wrist (Acute) Gout due to renal impairment, multiple sites (Acute) Hyperuricemia (Acute) ALTMAN (nonalcoholic steatohepatitis) (Chronic 01/04/23) Elev Alk Phos, abd u/s Pituitary abnormality (Acute) Seen incidentally, normal cortisol and TSH Peripheral artery disease (Acute) Orthostatic hypotension (Acute) Diabetes mellitus with stage 3a chronic kidney disease, with long-term current use of insulin (Acute) Type 2 diabetes mellitus with diabetic neuropathy, with long-term current use of insulin (Acute) Lumbosacral spondylosis without myelopathy (Acute) Memory change (Acute) Claudication (Acute) Obesity (Chronic) Bilateral lower extremity edema (Chronic) left > right; felt to be venous insufficiency, not wearing compression. Normal echo in 12/2021 Erectile dysfunction (Acute) BPH loc w urin obs/LUTS (Acute) Actinic keratosis due to exposure to sunlight (Acute) Tubular adenoma (Acute ~04/2020) 04/13/20 TAx5 Serrated adenoma of colon (Acute ~04/2020) 04/13/20 Sessile serrated adenomax2 Colon polyp, hyperplastic (Acute ~04/2020) 04/13/20 HP x19 Diabetic peripheral neuropathy (Acute) GERD (gastroesophageal reflux disease) (Acute) HTN (hypertension) (Chronic) Smoker (Acute) CAD S/P percutaneous coronary angioplasty (Chronic 08/28/17) Hyperlipidemia (Chronic) CARLOTA (obstructive sleep apnea) (Chronic) Depression with anxiety (Chronic) resistant to treatment with antidepressants Medical History Pyelonephritis due to Escherichia coli [place] of [place] heart [place] [facility] 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 Cervical disc disease Chronic neck pain Tubular adenoma of colon (02/18/14) Thoracic spine pain (07/17/15) Spondylosis of cervical region without myelopathy or radiculopathy (04/17/15) Chronic pain syndrome (09/30/16) 08/19/16-CONTROLLED SUBSTANCE AGREEMENT-APPROVED FOR 3 MONTHS Chronic obstructive lung disease Chronic left-sided low back pain with left-sided sciatica (12/03/15) Blindness, 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 Acute nontraumatic kidney injury Parastomal hernia Surgical History Status post vasectomy Status post Luisana fundoplication Status post inguinal hernia repair Status post carpal tunnel release History of esophagogastroduodenoscopy History of incisional hernia repair with mesh right ulnar graft left shoulder repair [place]ana Fundoplication [place] [facility] [place] [facility] [place] Family History Father , age 74 Diabetes Alcohol abuse sober in later years Essential hypertension Hyperlipidemia Cancer Mother , age 72 Diabetes Essential hypertension Heart disease Hyperlipidemia Mental disorder pt thinks she has bipolar Depression Brother Hyperlipidemia Depression Diabetes Heart disease Hypertension Sister Alcohol abuse Depression Stroke Substance abuse Sister Depression Heart disease Hypertension Brother Hyperlipidemia Hypertension Brother , age 29 Alcohol abuse Depression Substance abuse Social History (Updated 03/15/23 @ 14:36 by Zarina Dinh MD) Smoking/Tobacco Use Status: Current every day Tobacco Type: cigarettes Smoking packs per day: 2 Smoking cigarettes per day: 40.0 Tobacco: How many years used: 40 Quit status: considering quitting Second Hand Exposure: Yes Counseling given: provider counseling Smoking risk assessment performed?: Yes Alcohol Intake: current Alcohol Intake frequency: holidays/special occasions only Drug use: Never Substance use type: does not use Caregiver/Support person: No Household members: spouse and family Housing: house Communication Needs: None Do you need help understanding health information?: Rarely 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 Pets and animals: Yes Pets and animals: dog(s) Sexually active: No Do you think of yourself as: straight/heterosexual Current gender identity: male What is your relationship status?: How often do you talk on the phone with friends or family?: once per week How often do you get together with friends or relatives?: once per week How often do you attend congregation or gnosticist services?: decline to answer Do you belong to any clubs or organized social groups?: no Panel score (0-1 are the most socially isolated patients): 1 Duration: decline to answer Frequency: decline to answer Mayela/Amish: No preference Special mayela needs: No Seatbelt use: always Helmet use: Yes Helmet use: always Drive intox or ride w/intox taxi driver supervisor: No Do you feel safe at home: Yes Do you feel safe in your relationship?: Yes Exam Narrative Exam Narrative: General: Nontoxic, comfortable and interactive Neuro: Alert and oriented x 3 Psych: Good mood and affect, good insight and understanding into his condition Chest: Nonlabored breathing Heart: Regular Results Last Vital Signs Temp 97.7 F 05/11/23 07:54 Pulse 88 05/11/23 07:54 Resp 16 05/11/23 07:54 BP 114/78 05/11/23 07:54 Pulse Ox 98 05/11/23 07:54
--- NOTE | 2023-05-11 09:23 | BOWEL_PTH ---
PATIENT: Samy Patricio JR LOC: [facility] U#:[id number] AGE/SX: 57/M ROOM: RE05/11/[address]: Chang Martel : 1965 BED: DIS: 05/11/2023 SPEC #: [id number] RECD: 05/11/23 12:55 STATUS: [facility] #: [id number] LUIS: 05/11/23 09:[address]: Chang Martel DEPT: Surgical Specimen RECD BY: Nga Herrera ENTERED: 05/11/23 13:00 SP TYPE: Bowel OTHR DR: Karen Barbosa Tissues: 1 - STOMACH BIOPSY 2 - ESOPHAGUS BIOPSY 3 - BIOPSY BOWEL 4 - BIOPSY BOWEL 5 - BIOPSY BOWEL 6 - BIOPSY BOWEL 7 - BIOPSY BOWEL Procedures: GROSS AND MICRO LEVEL 4 Comments: [id number]
[2023-05-11 10:05] VITALS: BP 130/81; PULSE 76; RESP 19; TEMP 36.5; O2SAT 95
--- NOTE | 2023-05-11 10:15 | W.PM.ENDDOP ---
Date of service: 05/11/23 Time of Service: 10:15 Endoscopy Report PROCEDURE DESCRIPTION: PROCEDURES PERFORMED: 1. EGD with biopsies PREOPERATIVE DIAGNOSIS: Diaz's esophagus POSTOPERATIVE DIAGNOSIS: Moderate?sized type I sliding hiatal hernia SURGEON: Bebe Martel MD INDICATION FOR PROCEDURE: 57-year-old man with a reported history of Diaz's esophagus. His symptoms are controlled with antacid medication. FINDINGS: D2/D3 = normal D1/bulb = normal - no ulcers or inflammation Pylorus = normal Antrum = normal appearance, no ulcers, cold forceps biopsies were taken to rule out H. pylori routinely Body = normal appearance, biopsies taken with cold forceps technique routinely Fundus = normal, no polyps Cardia = normal Hiatus = moderate type I sliding hiatal hernia (2-3 cm slide), Hill grade 1 Distal esophagus = no obvious inflammation, no esophagitis, no strips of Diaz's, no stricture. There were 2 small punctate, sub-millimeter areas of focal change that might represent regressing Diaz's and I biopsied one of them to confirm. Mid esophagus = normal Proximal esophagus/hypopharynx/vocal cords = normal SURVEILLANCE-INTERVAL/FOLLOW-UP: I do not think repeat EGD is needed at this time. Patient is NOT a candidate for hiatal hernia repair with a BMI of 40.8. Specimens: Yes EBL: Minimal COMPLICATIONS: None Procedure in detail: The patient gave written consent and was in agreement with the indications, the potential risks as well as the benefits of the procedure. The patient was taken to the endoscopy suite and laid on their left side. Anesthesia was given which was tolerated well. We performed a timeout and we are in agreement I started the procedure. A well-lubricated endoscope was gently and carefully advanced down the esophagus, into the stomach the scope was and through the pylorus into the duodenum. The scope was then slowly withdrawn with the above-noted findings/interventions. The patient tolerated the procedure well and was then turned for colonoscopy (see separate procedure note).
--- NOTE | 2023-05-11 10:18 | W.COLOREPORT ---
Date of service: 05/11/23 Time of Service: 10:18 Colonoscopy Report Procedure Description: PROCEDURES PERFORMED: 1. Colonoscopy with hot snare polypectomy x3 2. Cold forceps polypectomy x 3 PREOPERATIVE DIAGNOSIS: Surveillance colonoscopy, colon polyps POSTOPERATIVE DIAGNOSIS: Colon polyps, hyperplastic rectal polyps SURGEON: Bebe Martel MD INDICATION for procedure: The patient is a 57-year-old man who reportedly had more than 20 polyps removed on his last colonoscopy. They ranged from sessile serrated to multiple hyperplastic polyps. His mother reportedly had colon cancer. FINDINGS: In the transverse colon a 3-5 mm sessile polyp was removed with hot snare technique. Further along the proximal descending colon another 3-5 mm sessile polyp was removed with hot snare technique. In the sigmoid colon another 3-5 mm sessile polyp was removed with hot snare technique. There are multiple hyperplastic?appearing, small and flat polyps between the distal sigmoid colon and the rectum. These were removed with cold forceps technique and sent separately to confirm there are benign character. (Most of them were left in situ) SURVEILLANCE interval/FOLLOW-UP: 3 years SPECIMENS: yes EBL: Minimal COMPLICATIONS: None QUALITY of prep: Excellent Procedure in detail: The patient gave written consent and was in agreement with the indications, the potential risks as well as the benefits of the procedure. He was turned from upper endoscopy (see separate procedure note) and the colonoscopy portion of the procedure was started. Digital rectal and visual examination was performed and grossly within normal limits. A well-lubricated flexible colonoscope was then introduced and passed without any notable difficulty all the way to the cecum identified by the ileocecal valve and the appendiceal orifice. The scope was then slowly withdrawn with the above-noted findings. The patient tolerated the procedure well and was taken to the PACU in hemodynamically stable condition.
--- NOTE | 2023-05-11 10:21 | PDOC.DSDIS_ITS ---
Date of service: 05/11/23 Time of Service: 10:21 Discharge Plan Disposition Patient Disposition: Home Condition: Good Discharge Details Attending Provider: Chang Martel Primary Care Provider: Karen Barbosa Home Meds and New Rx's Prescriptions: No Action insulin degludec 200 unit/mL (3 mL) insulin pen 80 unit subcut BID Qty: 36 3RF glucagon HCl [Glucagon (HCl) Emergency Kit] 1 mg recon soln 1 mg subcut Q20M PRN (Reason: hypoglycemia) Qty: 1 3RF Rx Instructions: until target blood sugar attained metoprolol succinate 50 mg tablet extended release 24 hr 25 mg PO DAILY Qty: 90 3RF vitamin B complex [B Complex-Vitamin B12] Tablet 1 tab PO DAILY metformin 1,000 mg tablet 1,000 mg PO BID Qty: 180 3RF Patient Comments: pt states not taking nitroglycerin 0.4 mg tablet, sublingual See Rx Instructions .ROUTE .COMPLEX Qty: 100 3RF Dose Instruction: PLACE ONE TABLET UNDER THE TONGUE EVERY 5 MINUTES FOR UP TO 3 DOSES NEEDED FOR CHEST PAIN. IF CHEST PAIN STILL PERSISTS CONTACT 911 Rx Instructions: PLACE ONE TABLET UNDER THE TONGUE EVERY 5 MINUTES FOR UP TO 3 DOSES NEEDED FOR CHEST PAIN. IF CHEST PAIN STILL PERSISTS CONTACT 911 atorvastatin 80 mg tablet 80 mg PO QHS Qty: 90 3RF albuterol sulfate 90 mcg/actuation HFA aerosol inhaler 2 puff inhalation Q6H PRN (Reason: shortness of breath or wheezing) Qty: 8.5 4RF (DME) Dexcom G7 Sensor Device See Rx Instructions .Route Qty: 1 12RF Rx Instructions: As directed Trelegy Ellipta 200-62.5-25 mcg blister with device 1 inh inhalation DAILY Qty: 60 4RF folic acid 1 mg tablet 1 mg PO DAILY Qty: 90 4RF pyridostigmine bromide 60 mg tablet 60 mg PO TID PRN (Reason: activity or dizzness) Qty: 90 3RF Rx Instructions: Take 30min-1hour prior to increased activity/prolonged driving to prevent dizziness Humalog KwikPen Insulin 200 unit/mL (3 mL) insulin pen 40 unit subcut QACHS Qty: 24 12RF Rx Instructions: total daily dose 160 units daily aspirin [Aspir-81] 81 MG tablet,delayed release (DR/EC) 81 mg PO DAILY Patient Comments: 6-18-18 per [facility]. -hb acetaminophen 325 mg tablet 650 mg PO Q6H PRN empagliflozin 25 mg tablet 25 mg PO DAILY Qty: 90 3RF Hold Instructions: Adverse Reaction pantoprazole 40 mg tablet,delayed release (DR/EC) 40 mg PO BID Qty: 180 3RF (DME) pen needle, diabetic [Comfort EZ Pen [place]] 31 gauge x 1/4 needle See Rx Instructions .ROUTE .MEDSUPPLY Qty: 500 4RF Rx Instructions: Five times daily torsemide 20 mg tablet 40 mg PO DAILY Qty: 180 1RF colchicine [Colcrys] 0.6 mg tablet See Rx Instructions PO .COMPLEX Qty: 30 2RF Rx Instructions: 2 tabs once and May repeat 1 tab 6 hours later. May use once daily until symptoms improve; tamsulosin [Flomax] 0.4 mg capsule 0.4 mg PO DAILY Qty: 90 3RF Discharge Instructions Additional Instructions: FINDINGS: Your esophagus looks good. You do have a moderate size hiatal hernia. There is no longer any Diaz's esophagus. On your colonoscopy more small polyps were found and removed. This is why you keep doing colonoscopies. They are nothing to worry about and you need to do another colonoscopy in 3 years. If you want to discuss your hernias further, schedule an outpatient follow-up visit in the office. Activity:: Activity as Tolerated Diet:: As Tolerated DS: Diagnosis Discharge Diagnosis (1) Colon polyps: Status: Acute
[2023-05-11 10:35] VITALS: BP 124/85; PULSE 76; RESP 19; TEMP 36.5; O2SAT 95
--- NOTE | 2023-05-11 10:39 | W.ANESPOSTOP ---
Postoperative Evaluation Date, Time and Location Date Performed: 05/11/23 Time Performed: 10:17 Patient Location: Day Surgery Unit Vital Signs Most Recent Imported Vital Signs: Most Recent Vital Signs Temp Pulse Resp BP Pulse Ox 36.5 C 76 19 130/81 95 05/11/23 10:05 05/11/23 10:05 05/11/23 10:05 05/11/23 10:05 05/11/23 10:05 Pain Score Most Recent Pain Score: Most Recent Pain Score Pain Level 0 05/11/23 10:05 Assessment Mental Status: Awake (Alert & Oriented to Patient Baseline) Airway and Respiratory Function: Patent airway with normal (patient baseline) respiratory exam Cardiovascular Function: Hemodynamically Stable Hydration Status: Adequately Hydrated Nausea & Vomiting: No Nausea or Vomiting Pain: Pt. Denies Any Pain Peripheral Nerve Block: Patient did not receive a nerve block
== END 2023-05-11 10:47 | disposition home or self-care (01) ==
PROVIDERS: PCP Family Medicine; Visit Provider Student in an Organized Health Care Education/Training Program
PROC: (CPT 45385; principal; 2023-05-11 09:45)
DX: Z12.11 Encounter for screening for malignant neoplasm of colon (principal); K44.9 Diaphragmatic hernia without obstruction or gangrene; D12.3 Benign neoplasm of transverse colon; K62.1 Rectal polyp; K22.70 Barrett's esophagus without dysplasia; Z86.010 Personal history of colon polyps; Z80.0 Family history of malignant neoplasm of digestive organs; D12.4 Benign neoplasm of descending colon; K63.89 Other specified diseases of intestine
CPT/HCPCS: 45385; 45380; 43239; 00123; 88305; J2001; J2405; J2704

== ENCOUNTER 2023-06-06 10:07 | Day surgery (SDC) | payer MEDICARE, OTHER, SELFPAY ==
--- NOTE | 2023-06-06 07:10 | W.ANESPRE ---
General Info Date of Service Date Performed: 06/06/23 Height: 6 ft Weight: 134.887 kg Body Mass Index (BMI): 40.3 Surgical Procedure: Operation Date: 06/06/23 12:55 Proposed Procedure Side Surgeon p Wrist Cyst Excision Right Aiden Santa MD Meds Allergies and Home Medications Allergies Allergy/AdvReac Type Severity Reaction Status Date / Time venlafaxine AdvReac Severe Nausea Verified 06/06/23 10:45 doxycycline AdvReac Intermediate Cold Verified 06/06/23 10:45 Chills, made him sick. liraglutide [From Victoza] AdvReac Intermediate GI upset Verified 06/06/23 10:45 Home Medication Medication Instructions Recorded aspirin 81 mg tablet,delayed 81 mg PO DAILY 08/28/17 release (Aspir-) vitamin B complex (B 1 tab PO DAILY 08/19/19 Complex-Vitamin B12 tablet) metformin 1,000 mg tablet 1,000 mg PO BID #180 tab-caps 02/23/22 empagliflozin 25 mg tablet 25 mg PO DAILY #90 tabs 06/07/22 pantoprazole 40 mg tablet,delayed 40 mg PO BID #180 tabs 08/04/22 release albuterol sulfate 90 mcg/actuation 2 puff inhalation Q6H PRN 09/30/22 aerosol inhaler shortness of breath or wheezing #8.5 grams atorvastatin 80 mg tablet 80 mg PO QHS #90 tabs 09/30/22 blood-glucose sensor (Dexcom G7 #1 ea 09/30/22 Sensor device) fluticasone fur. 200 mcg-umeclid 1 inh inhalation DAILY #60 ea 09/30/22 62.5 mcg-vilant 25 mcg inhalat.powder (Trelegy Ellipta) folic acid 1 mg tablet 1 mg PO DAILY #90 tabs 09/30/22 nitroglycerin 0.4 mg sublingual See Rx Instructions .Route 09/30/22 tablet .COMPLEX #100 tabs pen needle, diabetic 31 gauge x #500 ea 12/01/2203/16 (Comfort EZ Pen [place]) metoprolol succinate 50 mg 25 mg (1/2 x 50 mg) PO DAILY #90 12/21/22 tablet,extended release 24 hr tabs torsemide 20 mg tablet 40 mg (2 x 20 mg) PO DAILY #180 02/10/23 tabs insulin lispro 200 unit/mL (3 mL) 40 unit (0.2 mL) subcut QACHS #24 03/01/23 subcutaneous pen (Humalog KwikPen mL U-200 Insulin) tamsulosin 0.4 mg capsule (Flomax) 0.4 mg PO DAILY #90 caps 04/05/23 allopurinol 100 mg tablet 200 mg (2 x 100 mg) PO DAILY #180 05/16/23 tabs colchicine 0.6 mg tablet (Colcrys) See Rx Instructions PO .COMPLEX 05/16/23 #30 tabs glucagon 3 mg/actuation nasal spray 3 mg intranasal ONCE PRN 05/16/23 hypoglycemia #2 ea insulin degludec 200 unit/mL (3 160 unit subcut HS 06/02/23 mL) subcutaneous pen acetaminophen 500 mg tablet 1,000 mg (2 x 500 mg) PO TID #90 06/06/23 tabs hydrocodone 5 mg-acetaminophen 325 1 tab PO Q6H PRN pain #6 tabs 06/06/23 mg tablet ibuprofen 600 mg tablet 600 mg PO TID PRN pain #90 tabs 06/06/23 Current Visit Medications: Current Medications Generic Name Dose Route Start Last Admin Trade Name Freq PRN Reason Stop Dose Admin Ringer's Solution 1,000 mls @ 80 mls/hr 06/06/23 06:00 IV 06/06/23 23:59 INFUSION YAW Cefazolin Sodium 3,000 mg/ 100 mls @ 200 mls/hr 06/06/23 06:00 Sodium Chloride IVPB 06/06/23 23:59 PREOP YAW IV Miscellaneous Supplies 1 each 06/06/23 06:00 Iv Access IV 06/06/23 23:59 DIRECTED YAW Sodium Chloride 0 ml 06/06/23 06:00 Normal Saline Flush 10 Ml Syr IV 06/06/23 23:59 PRN PRN Sodium Chloride 0 ml 06/06/23 06:00 Normal Saline 10 Ml Vial IJ 06/06/23 23:59 DIRECTED PRN Sterile Water 0 ml 06/06/23 06:00 Water,Injection,Sterile 10 Ml Vial IJ 06/06/23 23:59 DIRECTED PRN PFSH Active Problems Active Problems: Problem Status Onset Code Tubular adenoma of colon 02/18/14 D12.6 Gross hematuria R31.0 Ganglion cyst of dorsum of right wrist M67.431 Cubital tunnel syndrome on left G56.22 Carpal tunnel syndrome of right wrist G56.01 Carpal tunnel syndrome of left wrist G56.02 Gout due to renal impairment, multiple sites M10.39 Hyperuricemia E79.0 ALTMAN (nonalcoholic steatohepatitis) 01/04/23 K75.81 Prostatitis, acute N41.0 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 Peripheral artery disease I73.9 Orthostatic hypotension I95.1 Diabetes mellitus with stage 3a chronic kidney disease, with long-term current use of insulin E11.22, N18.31, Z79.4 Type 2 diabetes mellitus with diabetic neuropathy, with long-term current use of insulin E11.40, Z79.4 Lumbosacral spondylosis without myelopathy M47.817 Memory change R41.3 Claudication I73.9 Obesity E66.9 Bilateral lower extremity edema R60.0 Erectile dysfunction N52.9 BPH loc w urin obs/LUTS N40.1 Actinic keratosis due to exposure to sunlight L57.0 Serrated adenoma of colon ~04/2020 D12.6 Diabetic peripheral neuropathy E11.42 GERD (gastroesophageal reflux disease) K21.9 HTN (hypertension) I10 Smoker F17.200 CAD S/P percutaneous coronary angioplasty 08/28/17 I25.10, Z98.61 Hyperlipidemia CARLOTA (obstructive sleep apnea) Depression with anxiety Medical History Medical History Colon polyp, hyperplastic (~04/2020) 04/13/20 HP x19 Pyelonephritis due to Escherichia coli History of left heart catheterization 10/05/22 [facility] [place] Cardiology. 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 Cervical disc disease Chronic neck pain Thoracic spine pain (07/17/15) Spondylosis of cervical region without myelopathy or radiculopathy (04/17/15) Chronic pain syndrome (09/30/16) 08/19/16-CONTROLLED SUBSTANCE AGREEMENT-APPROVED FOR 3 MONTHS Chronic obstructive lung disease Chronic left-sided low back pain with left-sided sciatica (12/03/15) Blindness, 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 Acute nontraumatic kidney injury Parastomal hernia Surgical History Surgical History Status post vasectomy Status post Luisana fundoplication Status post inguinal hernia repair Status post carpal tunnel release History of esophagogastroduodenoscopy (~04/2023) History of incisional hernia repair with mesh right ulnar graft left shoulder repair Luisana Fundoplication Colonoscopy - MAC (~04/2023) 02/18/14 Tobacco Smoking/Tobacco Use Status: Current every day Tobacco Type: cigarettes Smoking packs per day: 2 Smoking cigarettes per day: 40.0 Passive smoking exposure: Yes Second hand exposure: Yes Counseling given: provider counseling Alcohol Alcohol Intake: current Alcohol intake frequency: holidays/special occasions only Substance Use Substance use: Never Substance use type: does not use Vital Signs and Lab Results Vital Signs Most Recent Vital Signs in EMR: Temp Pulse Resp BP Pulse Ox 36.5 C 79 16 121/73 94 06/06/23 10:31 06/06/23 10:31 06/06/23 10:31 06/06/23 10:31 06/06/23 10:31 Lab Results Blood Type / Crossmatch: No Data to Display Complete Blood Count: No Data to Display Complete Metabolic Panel: No Data to Display Liver Function Panel: No Data to Display Coagulation Panel: No Data to Display Cardiac Panel: No Data to Display Arterial Blood Gas: No Data to Display Venous Blood Gas: No Data to Display Pancreas Panel: No Data to Display Thyroid Panel: No Data to Display Infectious Disease: No Data to Display Blood Cultures: No Data to Display Toxicology Panel: No Data to Display Imaging and Studies Imaging and Studies Study information below may be from another EMR and interpreted by another provider. Please see original notes in EMR for more complete details. EKG Summary: 10/02: sinus tessa. Stress Test Summary: Patient Name: BEL MENESES Unit #: [id number] Loc: DI Ordering Provider: Jg Stubbs M.D. Status: REG CLI Primary Care Provider: Abi Lazaro Date of Exam: 04/23/18 Sex: M : 1965 Age: 52 Exam(s) a NM:NM MPI rest & stress grp *[facility]* *[facility]* [address] [place] [address] Myocardial Perfusion Imaging - SPECT Cabrera protocol Date of study: 04/23/2018 *PATIENT PRESENTATION* Height: 182.9cm (72in) Blood Pressure: Weight: 120.9kg (266lb) BSA: 2.52m^2 Referring physician: Angeles Bowens Ordering physician: Jg Stubbs Impressions: - Normal study after pharmacologic stress. - Good functional capacity - stress converted to pharm stress as THR not achieved. Summary: 1. Myocardial perfusion imaging: No myocardial perfusion defects noted. 2. The calculated left ventricular ejection fraction after stress: 70%. LV global systolic function is normal. No left ventricular regional motion abnormality. 3. Stress: The target heart rate was not achieved. Indication: R07.9. History: REASON FOR TESTING: PATIENT PRESENTED TO THE ED ON 04/13/18 WITH INTERMITTENT EPISODES OF MIDSTERNAL SHARP CHEST PAINS, ALTHOUGH AT OTHER TIMES HIS CHEST PAIN WILL BE A DULL PRESSURE. CHEST PAIN OCCURS AT REST AND WITH ACTIVITY. TROPONINS IN ER WERE NEGATIVE. PATIENT REPORTS HAVING INTERMITTENT CHEST PAIN FOR THE PAST 18 MONTHS. CHEST PAIN OCCASIONALLY WILL RADIATE TO NECK AND HE MAY HAVE DIAPHORESIS. TODAY PATIENT DENIES CHEST PAIN UPON ARRIVAL TO EXERCISE TESTING. SIGNIFICANT PAST MEDICAL HISTORY: STATUS POST RCA PCI FOR STEMI IN AUGUST 2017. TWO STENTS PLACED IN AUGUST 2017. SMOKING STATUS: SMOKER 40 YEARS, 2 PPD EXERCISE ROUTINE: DAILY ADL'S. PMH: COPD. Risk factors: Family history of coronary artery disease. Current tobacco use. Dyslipidemia. Cholesterol: 147mg/dl. HDL: 31mg/dl. LDL: 77mg/dl. Triglycerides: 313mg/dl. ALLERGIES: NO KNOWN ALLERGIES. MEDICATIONS: ACETAMINOPHEN 650 MG PRN, ASPIRIN 81 MG DAILY, ATORVASTATIN 20 MG HS, PLAVIX 75 MG DAILY, GLIPIZIDE 5 MG HS, ISOSORBIDE MONONITRATE 30 MG DAILY, METFORMIN 1000 BID, METOPROLOL 25 MG DAILY, NITROGLYCERIN 0.4 MG PRN, PANTOPRAZOLE 40 MG HS, PROAIR HFA 2 PUFFS PRN. Imaging Technique: Protocol: Cabrera protocol. Acquisition: Gated SPECT; 1 day - rest/stress. The patient was imaged in the supine position. Attenuation correction used. Isotope administration: - Rest. Tc[99m]-sestamibi. Dose: 11.7mCi. Injection time: 08:15 AM. Injection to stress time: 00:45. - Stress. Tc[99m]-sestamibi. Dose: 37.1mCi. Injection time: 10:35 PM. 1-2 min before end of exercise Baseline ECG: SINUS RHYTHM. HR 76 BPM. Stress protocol: + +---+ + + !Stage !HR !BP (mmHg) !Comments ! + +---+ + + !Baseline supine !76 !136/90 (105)! ! + +---+ + + !Baseline standing !85 !124/90 (101)! ! + +---+ + + !Stage I; 1.7mph, 10degrees; 3 min!113!152/84 (107)! ! + +---+ + + !Stage II; 2.5mph, 12degrees; 3 !117!168/84 (112)! ! !min ! ! ! ! + +---+ + + !Peak stress !129! ! ! + +---+ + + !Recovery; 1 min !115!170/80 (110)! ! + +---+ + + !1 min !101!158/84 (109)!Susi Ryan.! + +---+ + + !3 min !94 !140/88 (105)! ! + +---+ + + !6 min !86 !140/90 (107)! ! + +---+ + + * Stress results: STRESS TEST ENDED IN 9 MINUTES 1 SECOND DUE TO FATIGUE. PATIENT DID NOT MEET TARGET HEART RATE. NORMAL HEART RATE AND BLOOD PRESSURE RESPONSE TO EXERCISE. MAX HEART RATE: 129 76 % OF TARGET HEART RATE. MET'S: 1035 RARE PAC'S WITH EXERCISE. NO ANGINA NO SIGNIFICANT ST SEGMENT CHANGES. FUNCTIONAL CAPACITY: AVERAGE CAPACITY. TRANSITIONED TO LEXISCAN BECAUSE TARGET HEART RATE NOT ACHIEVED. LEXISCAN PROTOCOL STRESS TEST ENDED IN 7 MINUTES 13 SECONDS. NORMAL HEART RATE AND BLOOD PRESSURE RESPONSE TO LEXISCAN INJECTION. NO ANGINA. NO SIGNIFICANT ST SEGMENT CHANGES. Maximal heart rate during stress was 129bpm (76% of maximal predicted heart rate). The maximal predicted heart rate was 169bpm. The target heart rate was not achieved. The rate-pressure product for the peak heart rate and blood pressure was 04601uu Hg/min. Myocardial perfusion: Imaging information: gated. Left ventricular size is normal. No myocardial perfusion defects noted. Ventricular Function (Wall Motion): The calculated left ventricular ejection fraction after stress: 70%. LV global systolic function is normal. No left ventricular regional motion abnormality. Study data: Angeles Bowens MD supervised and was readily available during the procedure. This study was interpreted by [facility]. Study status: Routine. Consent: The risks, benefits, and alternatives to the procedure were explained to the patient and informed consent was obtained. Procedure: Initial setup. A baseline ECG was recorded. Surface ECG leads and manual cuff blood pressure measurements were monitored. Heart sounds: Normal. Lung sounds: Normal. Treadmill exercise testing was performed using the Cabrera protocol. Study completion: All catheters inserted during the procedure were removed. The patient tolerated the procedure well and was discharged from the lab. Discharge: The patient left the laboratory in stable condition. Birthdate: Patient birthdate: 1965. Sex: Gender: male. Study date: Study date: 04/23/2018. Study time: 00:01 AM. Signature Documentation: - The imaging portion of this study was interpreted by Nuclear Qualitative Executive Researcher Angeles Bowens MD. - The imaging portion of this study was interpreted by Nuclear Radiologist Jeovanny Larson MD. - The Stress ECG portion of this study was interpreted by Angeles Bowens MD. Electronically signed by Angeles Bowens 04/23/2018 15:04 Ordering provider: Jg Stubbs M.D. CC: YENNI VASQUEZ, ANGELES Dictated by: Jeovanny Larson M.D.04/23/18 1400 <Electronically signed by Jeovanny Larson M.D.>04/24/18 3252 Disclaimer: The [facility] radiologist is signing only the Nuclear Medicine MPI Imaging exam portion of the report. Transcribed by: Lottie Sanchez04/24/18 0828 This is privileged, confidential information intended only for the provider named. Any use or distribution by any person other than this provider is strictly prohibited. If you receive this report in error, please notify us immediately at [phone] and return the original report to us Echocardiogram Summary: 02/01: LVEF 55-60%, no sig valve dz. Carotid Artery Summary:: 01/01: No evidence of a hemodynamically significant carotid stenosis. Pulmonary Function Summary: 11/29: Mild obstructive airways disease with no significant bronchodilator response. Clinical correlation recommended. Anesthesia Assessment and Plan Anesthesia History Personal History: No History of Anesthesia Complications Family History: No Family History of Anesthesia Complications Exercise Tolerance Exercise Tolerance: Metabolic Equivalents>4 Cardiac & Pulmonary Exam Cardiac Exam: Normal S1/S2 Heart Sounds Pulmonary Exam: Clear Bilateral Breath Sounds Implantable Cardiac Device Does patient have a Pacemaker or an ICD?: No Airway Exam Known Difficult Airway: No Mallampati Class: 3 Mouth Opening: Normal (> 3cm) Thyromental Distance: Greater than 3 cm Neck Range of Motion: Limited ROM (pt reports intermittent pain and numbness in hands related to neck movement ) Neck Circumference: Thick Teeth Condition: Normal Dentition ASA Classification ASA Score: ASA 3 Emergency Case?: No NPO Status NPO Status: NPO Clears >2 hours, Solids >8 hours Anesthesia Plan Resuscitation Status: Full Code Anesthesia Technique: General Anesthesia Airway Planned: Natural Airway Monitors Used: Standard Monitors Preoperative Comments:: 57 yo male for cyst removal. Sig PMHx: CAD (2018, 2020, 3 stents, denies nitro use), HTN, CARLOTA, COPD (trelgy, albuterol. well controlled), GERD (well controlled), depression, anxiety, DM (last A1c 7.4, empagliflozin, degludec, lispro, metformin), peripheral neuropathy (DM, spinal stenosis). Previous Anes: - multiple colo/egds, prop, natural airway, no issues. - TURBT, prop, natural airway, albuterol, no issues.
--- NOTE | 2023-06-06 09:26 | PDOC.DSDIS_ITS ---
Date of service: 06/06/23 Time of Service: 09:26 Discharge Plan Disposition Patient Disposition: Home Condition: Good Discharge Details Reason For Visit: R wrist cyst excision Attending Provider: Aiden Santa Primary Care Provider: Karen Barbosa Home Meds and New Rx's Prescriptions: New acetaminophen 500 mg tablet 1,000 mg PO TID Qty: 90 0RF hydrocodone-acetaminophen 5-325 mg tablet 1 tab PO Q6H PRN (Reason: pain) Qty: 6 0RF ibuprofen 600 mg tablet 600 mg PO TID PRN (Reason: pain) Qty: 90 0RF Continued metoprolol succinate 50 mg tablet extended release 24 hr 25 mg PO DAILY Qty: 90 3RF allopurinol 100 mg tablet 200 mg PO DAILY Qty: 180 3RF colchicine [Colcrys] 0.6 mg tablet See Rx Instructions PO .COMPLEX Qty: 30 2RF Rx Instructions: 2 tabs once and May repeat 1 tab 6 hours later. May use once daily until symptoms improve; glucagon 3 mg/actuation spray,non-aerosol 3 mg intranasal ONCE PRN (Reason: hypoglycemia) Qty: 2 1RF Rx Instructions: as a single dose vitamin B complex [B Complex-Vitamin B12] Tablet 1 tab PO DAILY metformin 1,000 mg tablet 1,000 mg PO BID Qty: 180 3RF Patient Comments: pt states not taking nitroglycerin 0.4 mg tablet, sublingual See Rx Instructions .ROUTE .COMPLEX Qty: 100 3RF Dose Instruction: PLACE ONE TABLET UNDER THE TONGUE EVERY 5 MINUTES FOR UP TO 3 DOSES NEEDED FOR CHEST PAIN. IF CHEST PAIN STILL PERSISTS CONTACT 911 Rx Instructions: PLACE ONE TABLET UNDER THE TONGUE EVERY 5 MINUTES FOR UP TO 3 DOSES NEEDED FOR CHEST PAIN. IF CHEST PAIN STILL PERSISTS CONTACT 911 atorvastatin 80 mg tablet 80 mg PO QHS Qty: 90 3RF albuterol sulfate 90 mcg/actuation HFA aerosol inhaler 2 puff inhalation Q6H PRN (Reason: shortness of breath or wheezing) Qty: 8.5 4RF (DME) Dexcom G7 Sensor Device See Rx Instructions .Route Qty: 1 12RF Rx Instructions: As directed Trelegy Ellipta 200-62.5-25 mcg blister with device 1 inh inhalation DAILY Qty: 60 4RF folic acid 1 mg tablet 1 mg PO DAILY Qty: 90 4RF Humalog KwikPen Insulin 200 unit/mL (3 mL) insulin pen 40 unit subcut QACHS Qty: 24 12RF Rx Instructions: total daily dose 160 units daily aspirin [Aspir-81] 81 MG tablet,delayed release (DR/EC) 81 mg PO DAILY Patient Comments: 08-28-17 per [facility]. -hb empagliflozin 25 mg tablet 25 mg PO DAILY Qty: 90 3RF Hold Instructions: Adverse Reaction pantoprazole 40 mg tablet,delayed release (DR/EC) 40 mg PO BID Qty: 180 3RF (DME) pen needle, diabetic [Comfort EZ Pen [place]] 31 gauge x 1/4 needle See Rx Instructions .ROUTE .MEDSUPPLY Qty: 500 4RF Rx Instructions: Five times daily torsemide 20 mg tablet 40 mg PO DAILY Qty: 180 1RF tamsulosin [Flomax] 0.4 mg capsule 0.4 mg PO DAILY Qty: 90 3RF insulin degludec 200 unit/mL (3 mL) insulin pen 160 unit subcut HS Discontinued acetaminophen 325 mg tablet 650 mg PO Q6H PRN Discharge Instructions Additional Instructions: Cyst Excision Discharge Instructions Activity: You should keep the hand elevated as much as possible for the first few days. You your fingers as tolerated but avoid trying to do too much too soon. You may perform light activities with the dressing in place. Dressing/Cast: You may remove the dressing after 72 hours and at that time my get the incision wet. You may place a band-aid over the incision if desired. Medications: - You should take Tylenol and Ibuprofen for baseline pain control. - You have Hydrocodone for breakthrough pain. - You may apply ice over the wrist. Follow-up: 7-10 days Referrals: Aiden Santa MD [ [facility] STAFF PHYSICIAN] - Activity:: Activity as Tolerated Remove Dressings/Wound Care:: 72 hours Shower/Bathe:: 72 hours Diet:: As Tolerated Discharge Orders Discharge Orders: Discharge Order (Routine); Ordered 06/06/23 Ordered By: Lion Arias DS: Diagnosis Discharge Diagnosis (1) Ganglion cyst of dorsum of right wrist: Status: Acute
[2023-06-06] MEDS: Lactated Ringers 1,000 ML 80 ML IV (10:30)
[2023-06-06 10:31] VITALS: BP 121/73; PULSE 79; RESP 16; TEMP 36.5; O2SAT 94
[2023-06-06 11:16] VITALS: BMI 40.3
--- NOTE | 2023-06-06 11:58 | W.PREOPHP ---
Assessment and Plan Assessment and plan (1) Ganglion cyst of dorsum of right wrist: Status: Acute Assessment and plan: Samy is a 57-year-old male who has a dorsal wrist cyst. It gets in the way and causes him pain. Therefore, I offered excision. I reviewed the risk of the procedure with him. These included bleeding, infection, pain, stiffness, recurrence, damage nerves and vessels. Despite these risk, he elects to proceed. History of Present Illness Narrative: Samy is a 57-year-old male who has a cyst about his right dorsal wrist. Please see the previous office note for complete detailed history. He would like to proceed with wrist cyst excision. He has a no change to his health. No chest pain or shortness of breath. He has had a history of chest pain which has been evaluated by cardiology and he has had a catheterization which did not reveal any significant issues. Review of Systems All systems reviewed & are unremarkable except as noted in HPI and below PFSH All Active Problems Tubular adenoma of colon (Acute 02/18/14) 04/13/20 TAx5 2 additional polyps 2023 Gross hematuria (Acute) Ganglion cyst of dorsum of right wrist (Acute) S/P Excision: 06/06/2023 Cubital tunnel syndrome on left (Acute) Carpal tunnel syndrome of right wrist (Acute) Carpal tunnel syndrome of left wrist (Acute) Gout due to renal impairment, multiple sites (Acute) Hyperuricemia (Acute) ALTMAN (nonalcoholic steatohepatitis) (Chronic 01/04/23) Elev Alk Phos, abd u/s Pituitary abnormality (Acute) Seen incidentally, normal cortisol and TSH Peripheral artery disease (Acute) Orthostatic hypotension (Acute) Diabetes mellitus with stage 3a chronic kidney disease, with long-term current use of insulin (Acute) Type 2 diabetes mellitus with diabetic neuropathy, with long-term current use of insulin (Acute) Lumbosacral spondylosis without myelopathy (Acute) Memory change (Acute) Claudication (Acute) Obesity (Chronic) Bilateral lower extremity edema (Chronic) left > right; felt to be venous insufficiency, not wearing compression. Normal echo in 12/2021 Erectile dysfunction (Acute) BPH loc w urin obs/LUTS (Acute) Actinic keratosis due to exposure to sunlight (Acute) Serrated adenoma of colon (Acute ~04/2020) 04/13/20 Sessile serrated adenomax2 Diabetic peripheral neuropathy (Acute) GERD (gastroesophageal reflux disease) (Acute) HTN (hypertension) (Chronic) Smoker (Acute) CAD S/P percutaneous coronary angioplasty (Chronic 08/28/17) Hyperlipidemia (Chronic) CARLOTA (obstructive sleep apnea) (Chronic) Depression with anxiety (Chronic) resistant to treatment with antidepressants Medical History Colon polyp, hyperplastic (~04/2020) 04/13/20 HP x19 Pyelonephritis due to Escherichia coli History of left heart catheter[place] [facility] 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 Cervical disc disease Chronic neck pain Thoracic spine pain (07/17/15) Spondylosis of cervical region without myelopathy or radiculopathy (04/17/15) Chronic pain syndrome (09/30/16) 08/19/16-CONTROLLED SUBSTANCE AGREEMENT-APPROVED FOR 3 MONTHS Chronic obstructive lung disease Chronic left-sided low back pain with left-sided sciatica (12/03/15) Blindness, 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 Acute nontraumatic kidney injury Parastomal hernia Surgical History Status post vasectomy Status post Luisana fundoplication Status post inguinal hernia repair Status post carpal tunnel release History of esophagogastroduodenoscopy (~04/2023) History of incisional hernia repair with mesh right ulnar graft left shoulder repair Luisana Fundoplication Colonoscopy - MAC (~04/2023) 02/18/14 Family History Father , age 74 Diabetes Alcohol abuse sober in later years Essential hypertension Hyperlipidemia Cancer Mother , age 72 Diabetes Essential hypertension Heart disease Hyperlipidemia Mental disorder pt thinks she has bipolar Depression Brother Hyperlipidemia Depression Diabetes Heart disease Hypertension Sister Alcohol abuse Depression Stroke Substance abuse Sister Depression Heart disease Hypertension Brother Hyperlipidemia Hypertension Brother , age 29 Alcohol abuse Depression Substance abuse Social History Smoking/Tobacco Use Status: Current every day Tobacco Type: cigarettes Smoking packs per day: 2 Smoking cigarettes per day: 40.0 Tobacco: How many years used: 40 Quit status: considering quitting Second Hand Exposure: Yes Counseling given: provider counseling Smoking risk assessment performed?: Yes Alcohol Intake: current Alcohol Intake frequency: holidays/special occasions only Drug use: Never Substance use type: does not use Caregiver/Support person: No Household members: spouse and family Housing: house Communication Needs: None Do you need help understanding health information?: Rarely 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 Pets and animals: Yes Pets and animals: dog(s) Sexually active: No Do you think of yourself as: straight/heterosexual Current gender identity: male What is your relationship status?: How often do you talk on the phone with friends or family?: once per week How often do you get together with friends or relatives?: once per week How often do you attend caodaism or mandaen services?: decline to answer Do you belong to any clubs or organized social groups?: no Panel score (0-1 are the most socially isolated patients): 1 Duration: decline to answer Frequency: decline to answer Mayela/Islam: No preference Special mayela needs: No Seatbelt use: always Helmet use: Yes Helmet use: always Drive intox or ride w/intox route driver salesperson: No Do you feel safe at home: Yes Do you feel safe in your relationship?: Yes Meds Allergies and Home Medications Allergies Allergy/AdvReac Type Severity Reaction Status Date / Time venlafaxine AdvReac Severe Nausea Verified 06/06/23 10:45 doxycycline AdvReac Intermediate Cold Verified 06/06/23 10:45 Chills, made him sick. liraglutide [From Victoza] AdvReac Intermediate GI upset Verified 06/06/23 10:45 Home Medications Medication Instructions Recorded Confirmed Type aspirin 81 mg tablet,delayed 81 mg PO DAILY 08/28/17 06/06/23 History release (Aspir-) vitamin B complex (B 1 tab PO DAILY 08/19/19 06/06/23 History Complex-Vitamin B12 tablet) metformin 1,000 mg tablet 1,000 mg PO BID #180 tab-caps 02/23/22 06/06/23 Rx empagliflozin 25 mg tablet 25 mg PO DAILY #90 tabs 06/07/22 06/02/23 Rx pantoprazole 40 mg tablet,delayed 40 mg PO BID #180 tabs 08/04/22 06/06/23 Rx release albuterol sulfate 90 mcg/actuation 2 puff inhalation Q6H PRN 09/30/22 06/06/23 Rx aerosol inhaler shortness of breath or wheezing #8.5 grams atorvastatin 80 mg tablet 80 mg PO QHS #90 tabs 09/30/22 06/06/23 Rx blood-glucose sensor (Dexcom G7 #1 ea 09/30/22 05/16/23 Rx Sensor device) fluticasone fur. 200 mcg-umeclid 1 inh inhalation DAILY #60 ea 09/30/22 06/06/23 Rx 62.5 mcg-vilant 25 mcg inhalat.powder (Trelegy Ellipta) folic acid 1 mg tablet 1 mg PO DAILY #90 tabs 09/30/22 06/06/23 Rx nitroglycerin 0.4 mg sublingual See Rx Instructions .Route 09/30/22 06/06/23 Rx tablet .COMPLEX #100 tabs pen needle, diabetic 31 gauge x #500 ea 12/01/22 05/16/23 Rx 1/4 (Comfort EZ Pen [place]) metoprolol succinate 50 mg 25 mg (1/2 x 50 mg) PO DAILY #90 12/21/22 06/06/23 Rx tablet,extended release 24 hr tabs torsemide 20 mg tablet 40 mg (2 x 20 mg) PO DAILY #180 02/10/23 06/06/23 Rx tabs insulin lispro 200 unit/mL (3 mL) 40 unit (0.2 mL) subcut QACHS #24 03/01/23 06/06/23 Rx subcutaneous pen (Humalog KwikPen mL U-200 Insulin) tamsulosin 0.4 mg capsule (Flomax) 0.4 mg PO DAILY #90 caps 04/05/23 06/06/23 Rx allopurinol 100 mg tablet 200 mg (2 x 100 mg) PO DAILY #180 05/16/23 06/06/23 Rx tabs colchicine 0.6 mg tablet (Colcrys) See Rx Instructions PO .COMPLEX 05/16/23 06/06/23 Rx #30 tabs glucagon 3 mg/actuation nasal spray 3 mg intranasal ONCE PRN 05/16/23 06/06/23 Rx hypoglycemia #2 ea insulin degludec 200 unit/mL (3 160 unit subcut HS 06/02/23 06/06/23 History mL) subcutaneous pen acetaminophen 500 mg tablet 1,000 mg (2 x 500 mg) PO TID #90 06/06/23 Rx tabs hydrocodone 5 mg-acetaminophen 325 1 tab PO Q6H PRN pain #6 tabs 06/06/23 Rx mg tablet ibuprofen 600 mg tablet 600 mg PO TID PRN pain #90 tabs 06/06/23 Rx Exam Resp Auscultation: clear to auscultation bilaterally Cardio Rate: regular rate Rhythm: regular rhythm Results Last Vital Signs Temp 36.5 C 06/06/23 10:31 Pulse 79 06/06/23 10:31 Resp 16 06/06/23 10:31 BP 121/73 06/06/23 10:31 Pulse Ox 94 06/06/23 10:31
[2023-06-06] MEDS: Sodium Bicarbonate 50 MEQ/50 ML VIAL (12:16)
[2023-06-06] MEDS: Lidocaine 1% Multi-Dose W/EPI 1/100,000 50 ML VIAL (12:16)
[2023-06-06 12:38] VITALS: BP 97/63; PULSE 82; RESP 16; TEMP 36.3; O2SAT 96
--- NOTE | 2023-06-06 12:48 | W.ANESPOSTOP ---
Postoperative Evaluation Date, Time and Location Date Performed: 06/06/23 Time Performed: 12:48 Patient Location: Day Surgery Unit Vital Signs Most Recent Imported Vital Signs: Most Recent Vital Signs Temp Pulse Resp BP Pulse Ox 36.3 C L 82 16 97/63 L 96 06/06/23 12:38 06/06/23 12:38 06/06/23 12:38 06/06/23 12:38 06/06/23 12:38 Pain Score Most Recent Pain Score: Most Recent Pain Score Pain Level 0 06/06/23 12:38 Assessment Mental Status: Awake (Alert & Oriented to Patient Baseline) Airway and Respiratory Function: Patent airway with normal (patient baseline) respiratory exam Cardiovascular Function: Hemodynamically Stable Hydration Status: Adequately Hydrated Nausea & Vomiting: No Nausea or Vomiting Pain: Pt. Denies Any Pain Peripheral Nerve Block: Patient did not receive a nerve block
[2023-06-06 13:00] VITALS: BP 113/68; PULSE 70; RESP 16; TEMP 36.3; O2SAT 96
--- NOTE | 2023-06-06 16:35 | ROE_ITS ---
Date of service: 06/06/23 Time of Service: 12:30 Operative Note Operative Note DATE OF PROCEDURE: 06/06/23 PRE-OP DIAGNOSIS: Right Dorsal Wrist Ganglion Cyst POST-OP DIAGNOSIS: same PROCEDURE: Excision of dorsal wrist ganglion cyst - right wrist SURGEON: Aiden Santa ANESTHESIA TYPE: General:No Airway Refer to Anesthesia Record ESTIMATED BLOOD LOSS: 0 PATHOLOGY: none sent COMPLICATIONS: None Patient was transported to: PACU Patient's condition: stable Indications: Samy is a 57-year-old male who I have seen for a dorsal wrist ganglion cyst. It has continued to be bothersome despite some conservative options. Its size and interference with activities continues to cause problems. Therefore, I offered excision of the wrist cyst. I discussed the risks to include bleeding, infection, pain, stiffness, damage to nerve and vessels, recurrence. Despite these risks, he elects to proceed. Procedure Description: Samy was greeted in the preoperative holding area. Identity was confirmed and the correct site was identified and marked. Consent was reviewed the patient and signed. History and physical was updated. The patient was brought to the operating room and placed in supine position. All bony prominences were well- padded. A nonsterile tourniquet was placed high up onto the right arm. The arms and prepped with ChloraPrep and draped in a standard fashion. The surgical site was marked on the skin and injected with 1% lidocaine with epinephrine buffered with sodium bicarbonate. The mass was identified and protected with dissection carried around. Once was fully identified it was deflated and the cyst stalk was followed down to the carpus. The cyst structure was resected and its origin from the carpus was opened with tenotomy scissors and rongeur. The seem to originate more from the radial scaphoid joint dorsally rather than the radiolunate joint. The wound was then thoroughly irrigated. There is no major bleeding. The wound was dry. The deep layer was reapproximated with a 3-0 Vicryl. The skin was closed with a running 4-0 Monocryl followed by skin glue, gauze, and Dawson wrap. At the end the case all counts were correct. The patient was awakened from anesthesia and taken to the PACU in stable condition. There were no noted complications.
== END 2023-06-06 13:16 | disposition home or self-care (01) ==
LOC: SUR 10:08
PROVIDERS: PCP Family Medicine; Visit Provider Student in an Organized Health Care Education/Training Program
PROC: (CPT 25111; principal; 2023-06-06 12:45)
DX: M67.431 Ganglion, right wrist (principal); I10 Essential (primary) hypertension; E11.22 Type 2 diabetes mellitus with diabetic chronic kidney disease; N18.31 Chronic kidney disease, stage 3a; Z79.4 Long term (current) use of insulin; K21.9 Gastro-esophageal reflux disease without esophagitis; G47.30 Sleep apnea, unspecified; F41.3 Other mixed anxiety disorders; F17.200 Nicotine dependence, unspecified, uncomplicated
CPT/HCPCS: 25111; J2004; J2405; J2704

== ENCOUNTER → 2023-06-09 08:58 | Outpatient (BNVA) | payer MEDICARE, OTHER, SELFPAY | PROVIDERS: PCP Family Medicine; Referring Provider Family Medicine; Visit Provider Internal Medicine Cardiovascular Disease | DX: R60.0 Localized edema (principal); I25.10 Atherosclerotic heart disease of native coronary artery without angina pectoris; Z98.61 Coronary angioplasty status | CPT/HCPCS: 99213 ==

== ENCOUNTER → 2023-06-16 08:23 | Outpatient (BNVA) | payer MEDICARE, OTHER, SELFPAY | PROVIDERS: PCP Family Medicine; Referring Provider Family Medicine | DX: Z47.89 Encounter for other orthopedic aftercare (principal); R60.0 Localized edema ==

== ENCOUNTER 2023-06-28 08:48 | Day surgery (SDC) | payer MEDICARE, OTHER, SELFPAY ==
[2023-06-28] VITALS (9 sets, daily range): BP systolic 88–111; BP diastolic 52–78; PULSE 61–74; RESP 16–20; TEMP 36.1–36.5; O2SAT 90–98; BMI 39.7
--- NOTE | 2023-06-28 07:30 | W.PM.DSUDISC ---
Date of service: 06/28/23 Time of Service: 07:31 Discharge Plan Disposition Patient Disposition: Home Condition: Good Discharge Details Reason For Visit: L ECTR, L cubital tunnel release Attending Provider: Aiden Santa Primary Care Provider: Karen Barbosa Home Meds and New Rx's Prescriptions: New acetaminophen 500 mg tablet 1,000 mg PO TID Qty: 90 0RF hydrocodone-acetaminophen 5-325 mg tablet 1 tab PO Q6H PRN (Reason: pain) Qty: 6 0RF ibuprofen 600 mg tablet 600 mg PO TID PRN (Reason: pain) Qty: 90 0RF Continued metoprolol succinate 50 mg tablet extended release 24 hr 25 mg PO DAILY Qty: 90 3RF allopurinol 100 mg tablet 200 mg PO DAILY Qty: 180 3RF colchicine [Colcrys] 0.6 mg tablet See Rx Instructions PO .COMPLEX Qty: 30 2RF Rx Instructions: 2 tabs once and May repeat 1 tab 6 hours later. May use once daily until symptoms improve; glucagon 3 mg/actuation spray,non-aerosol 3 mg intranasal ONCE PRN (Reason: hypoglycemia) Qty: 2 1RF Rx Instructions: as a single dose vitamin B complex [B Complex-Vitamin B12] Tablet 1 tab PO DAILY nitroglycerin 0.4 mg tablet, sublingual See Rx Instructions .ROUTE .COMPLEX Qty: 100 3RF Dose Instruction: PLACE ONE TABLET UNDER THE TONGUE EVERY 5 MINUTES FOR UP TO 3 DOSES NEEDED FOR CHEST PAIN. IF CHEST PAIN STILL PERSISTS CONTACT 911 Rx Instructions: PLACE ONE TABLET UNDER THE TONGUE EVERY 5 MINUTES FOR UP TO 3 DOSES NEEDED FOR CHEST PAIN. IF CHEST PAIN STILL PERSISTS CONTACT 911 atorvastatin 80 mg tablet 80 mg PO QHS Qty: 90 3RF albuterol sulfate 90 mcg/actuation HFA aerosol inhaler 2 puff inhalation Q6H PRN (Reason: shortness of breath or wheezing) Qty: 8.5 4RF (DME) Dexcom G7 Sensor Device See Rx Instructions .Route Qty: 1 12RF Rx Instructions: As directed Trelegy Ellipta 200-62.5-25 mcg blister with device 1 inh inhalation DAILY Qty: 60 4RF folic acid 1 mg tablet 1 mg PO DAILY Qty: 90 4RF Humalog KwikPen Insulin 200 unit/mL (3 mL) insulin pen 40 unit subcut QACHS Qty: 24 12RF Rx Instructions: total daily dose 160 units daily aspirin [Aspir-81] 81 MG tablet,delayed release (DR/EC) 81 mg PO DAILY Patient Comments: 08-28-17 per [facility]. -hb empagliflozin 25 mg tablet 25 mg PO DAILY Qty: 90 3RF Hold Instructions: Adverse Reaction pantoprazole 40 mg tablet,delayed release (DR/EC) 40 mg PO BID Qty: 180 3RF (DME) pen needle, diabetic [Comfort EZ Pen [place]] 31 gauge x 1/4 needle See Rx Instructions .ROUTE .MEDSUPPLY Qty: 500 4RF Rx Instructions: Five times daily torsemide 20 mg tablet 40 mg PO DAILY Qty: 180 1RF tamsulosin [Flomax] 0.4 mg capsule 0.4 mg PO DAILY Qty: 90 3RF insulin degludec 200 unit/mL (3 mL) insulin pen 120 unit subcut HS Discontinued acetaminophen 500 mg tablet 1,000 mg PO TID Qty: 90 0RF ibuprofen 600 mg tablet 600 mg PO TID PRN (Reason: pain) Qty: 90 0RF Discharge Instructions Additional Instructions: Cubital Tunnel Decompression Discharge Instructions Activity: You should stay in the sling for the first 2 weeks. You may come out of the sling for gentle motion and hygiene but should largely remain in the sling to allow the incision site to heal. Gentle motion of the elbow, hand, wrist, and fingers is okay and encouraged after the first few days, but no repetitive activites nor heavy lifting. You may apply ice. Medications: - You should take Tylenol and Ibuprofen around the clock. - You have been prescribed Hydrocodone for breakthrough pain. Dressings: - The initial surgical dressing should stay in place for 3 days. It may then be removed and kept clean and dry. You should cover with a light gauze dressing. - You may shower after 3 days and get the wound wet. Follow-up: 10 days Referrals: Aiden Santa MD [ [facility] STAFF PHYSICIAN] - Equipment/Supplies: Sling Activity:: Elevate Remove Dressings/Wound Care:: 72 hours Shower/Bathe:: 72 hours Diet:: As Tolerated Discharge Orders Discharge Orders: Discharge Order (Routine); Ordered 06/28/23 Ordered By: Lion Arias DS: Diagnosis Discharge Diagnosis (1) Cubital tunnel syndrome on left: Status: Acute (2) Carpal tunnel syndrome of left wrist: Status: Acute
[2023-06-28] MEDS: Lactated Ringers 1,000 ML 80 ML IV (09:54)
[2023-06-28] MEDS: Acetaminophen 500 MG TAB 1000 MG PO (10:14)
[2023-06-28] MEDS: Celecoxib 200 MG CAP 400 MG PO (10:14)
--- NOTE | 2023-06-28 10:28 | W.ANESPRE ---
General Info Date of Service Date Performed: 06/28/23 Height: 6 ft Weight: 133 kg Body Mass Index (BMI): 39.7 Surgical Procedure: Operation Date: 06/28/23 12:25 Proposed Procedure Side Surgeon p Wrist ECTR Left Aiden Santa MD s Cubital Tunnel Release Left Aiden Santa MD Meds Allergies and Home Medications Allergies Allergy/AdvReac Type Severity Reaction Status Date / Time venlafaxine AdvReac Severe Nausea Verified 06/28/23 09:45 doxycycline AdvReac Intermediate Cold Verified 06/28/23 09:45 Chills, made him sick. liraglutide [From Victoza] AdvReac Intermediate GI upset Verified 06/28/23 09:45 Home Medication Medication Instructions Recorded aspirin 81 mg tablet,delayed 81 mg PO DAILY 08/28/17 release (Aspir-) vitamin B complex (B 1 tab PO DAILY 08/19/19 Complex-Vitamin B12 tablet) empagliflozin 25 mg tablet 25 mg PO DAILY #90 tabs 06/07/22 pantoprazole 40 mg tablet,delayed 40 mg PO BID #180 tabs 08/04/22 release albuterol sulfate 90 mcg/actuation 2 puff inhalation Q6H PRN 09/30/22 aerosol inhaler shortness of breath or wheezing #8.5 grams atorvastatin 80 mg tablet 80 mg PO QHS #90 tabs 09/30/22 blood-glucose sensor (Dexcom G7 #1 ea 09/30/22 Sensor device) fluticasone fur. 200 mcg-umeclid 1 inh inhalation DAILY #60 ea 09/30/22 62.5 mcg-vilant 25 mcg inhalat.powder (Trelegy Ellipta) folic acid 1 mg tablet 1 mg PO DAILY #90 tabs 09/30/22 nitroglycerin 0.4 mg sublingual See Rx Instructions .Route 09/30/22 tablet .COMPLEX #100 tabs pen needle, diabetic 31 gauge x #500 ea 12/01/2203/16 (Comfort EZ Pen [place]) metoprolol succinate 50 mg 25 mg (1/2 x 50 mg) PO DAILY #90 12/21/22 tablet,extended release 24 hr tabs torsemide 20 mg tablet 40 mg (2 x 20 mg) PO DAILY #180 02/10/23 tabs insulin lispro 200 unit/mL (3 mL) 40 unit (0.2 mL) subcut QACHS #24 03/01/23 subcutaneous pen (Humalog KwikPen mL U-200 Insulin) tamsulosin 0.4 mg capsule (Flomax) 0.4 mg PO DAILY #90 caps 04/05/23 allopurinol 100 mg tablet 200 mg (2 x 100 mg) PO DAILY #180 05/16/23 tabs colchicine 0.6 mg tablet (Colcrys) See Rx Instructions PO .COMPLEX 05/16/23 #30 tabs glucagon 3 mg/actuation nasal spray 3 mg intranasal ONCE PRN 05/16/23 hypoglycemia #2 ea insulin degludec 200 unit/mL (3 120 unit subcut HS 06/02/23 mL) subcutaneous pen acetaminophen 500 mg tablet 1,000 mg (2 x 500 mg) PO TID #90 06/28/23 tabs hydrocodone 5 mg-acetaminophen 325 1 tab PO Q6H PRN pain #6 tabs 06/28/23 mg tablet ibuprofen 600 mg tablet 600 mg PO TID PRN pain #90 tabs 06/28/23 Current Visit Medications: Current Medications Generic Name Dose Route Start Last Admin Trade Name Freq PRN Reason Stop Dose Admin Acetaminophen 1,000 mg 06/28/23 06:00 06/28/23 10:14 Acetaminophen 500 Mg Tab PO 06/28/23 23:59 1,000 mg PREOP YAW Administration Acetaminophen 650 mg 06/28/23 07:29 Acetaminophen 325 Mg Tab PO 07/28/23 07:28 Q4H PRN PRN Hydrocodone Bitart/Acetaminophen 0 tab 06/28/23 07:29 Hydrocodone 5/Acetaminophen 325 Tab PO 07/28/23 07:28 Q3H PRN PRN Pain Celecoxib 400 mg 06/28/23 06:00 06/28/23 10:14 Celecoxib 200 Mg Cap PO 06/28/23 23:59 400 mg PREOP YAW Administration Ringer's Solution 1,000 mls @ 80 mls/hr 06/28/23 06:00 06/28/23 09:54 IV 06/28/23 23:59 80 mls/hr INFUSION YAW Administration Cefazolin Sodium/Dextrose 2 gm in 50 mls @ 100 mls/hr 06/28/23 06:00 Ancef Duplex IVPB 06/28/23 23:59 PREOP YAW IV Miscellaneous Supplies 1 each 06/28/23 06:00 Iv Access IV 06/28/23 23:59 DIRECTED YAW Sodium Chloride 0 ml 06/28/23 06:00 Normal Saline Flush 10 Ml Syr IV 06/28/23 23:59 PRN PRN Sodium Chloride 0 ml 06/28/23 06:00 Normal Saline 10 Ml Vial IJ 06/28/23 23:59 DIRECTED PRN Sterile Water 0 ml 06/28/23 06:00 Water,Injection,Sterile 10 Ml Vial IJ 06/28/23 23:59 DIRECTED PRN PFSH Active Problems Active Problems: Problem Status Onset Code Tubular adenoma of colon 02/18/14 D12.6 Gross hematuria R31.0 Cubital tunnel syndrome on left G56.22 Carpal tunnel syndrome of right wrist G56.01 Carpal tunnel syndrome of left wrist G56.02 Gout due to renal impairment, multiple sites M10.39 Hyperuricemia E79.0 ALTMAN (nonalcoholic steatohepatitis) 01/04/23 K75.81 Prostatitis, acute N41.0 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 Peripheral artery disease I73.9 Orthostatic hypotension I95.1 Diabetes mellitus with stage 3a chronic kidney disease, with long-term current use of insulin E11.22, N18.31, Z79.4 Type 2 diabetes mellitus with diabetic neuropathy, with long-term current use of insulin E11.40, Z79.4 Lumbosacral spondylosis without myelopathy M47.817 Memory change R41.3 Claudication I73.9 Obesity E66.9 Bilateral lower extremity edema R60.0 Erectile dysfunction N52.9 BPH loc w urin obs/LUTS N40.1 Actinic keratosis due to exposure to sunlight L57.0 Serrated adenoma of colon ~04/2020 D12.6 Diabetic peripheral neuropathy E11.42 GERD (gastroesophageal reflux disease) K21.9 HTN (hypertension) I10 Smoker F17.200 CAD S/P percutaneous coronary angioplasty 08/28/17 I25.10, Z98.61 Hyperlipidemia CARLOTA (obstructive sleep apnea) Depression with anxiety Medical History Medical History Colon polyp, hyperplastic (~04/2020) 04/13/20 HP x19 Pyelonephritis due to Escherichia coli History of left heart catheterization 10/05/22 [facility] [place] Cardiology. 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 Cervical disc disease Chronic neck pain Thoracic spine pain (07/17/15) Spondylosis of cervical region without myelopathy or radiculopathy (04/17/15) Chronic pain syndrome (09/30/16) 08/19/16-CONTROLLED SUBSTANCE AGREEMENT-APPROVED FOR 3 MONTHS Chronic obstructive lung disease Chronic left-sided low back pain with left-sided sciatica (12/03/15) Blindness, 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 Acute nontraumatic kidney injury Parastomal hernia Medical History Comments:: Dexcon CGM on R U arm - BS is 125mg/dL at 09:41am Surgical History Surgical History Ganglion cyst of dorsum of right wrist S/P Excision: 06/06/2023 Status post vasectomy Status post Luisana fundoplication Status post inguinal hernia repair Status post carpal tunnel release History of esophagogastroduodenoscopy (~04/2023) History of incisional hernia repair with mesh right ulnar graft left shoulder repair Luisana Fundoplication Colonoscopy - MAC (~04/2023) 02/18/14 Tobacco Smoking/Tobacco Use Status: Current every day Tobacco Type: cigarettes Smoking packs per day: 2 Smoking cigarettes per day: 40.0 Passive smoking exposure: Yes Second hand exposure: Yes Counseling given: provider counseling Alcohol Alcohol Intake: current Alcohol intake frequency: holidays/special occasions only Alcohol type: hard liquor Substance Use Substance use: Never Substance use type: does not use Details: 06/28/23: pt reports smoking 3 cigarettes prior to DSU today Vital Signs and Lab Results Vital Signs Most Recent Vital Signs in EMR: Most Recent Vital Signs Temp Pulse Resp BP Pulse Ox 36.5 C 74 16 111/78 98 06/28/23 09:30 06/28/23 09:30 06/28/23 09:30 06/28/23 09:30 06/28/23 09:30 Point of Care Results Point of Care Results: Finger Stick Blood Glucose 166 06/28/23 10:05 Lab Results Blood Type / Crossmatch: No Data to Display Complete Blood Count: No Data to Display Complete Metabolic Panel: No Data to Display Liver Function Panel: No Data to Display Coagulation Panel: No Data to Display Cardiac Panel: No Data to Display Arterial Blood Gas: No Data to Display Venous Blood Gas: No Data to Display Pancreas Panel: No Data to Display Thyroid Panel: No Data to Display Infectious Disease: No Data to Display Blood Cultures: No Data to Display Toxicology Panel: No Data to Display Imaging and Studies Imaging and Studies Study information below may be from another EMR and interpreted by another provider. Please see original notes in EMR for more complete details. EKG Summary: 10/02: sinus tessa. Stress Test Summary: Patient Name: BEL MENESES Unit #: [id number] Loc: Ordering Provider: Jg Stubbs M.D. Status: REG CLI Primary Care Provider: Abi Lazaro Date of Exam: 04/23/18 Sex: M : 1965 Age: 52 Exam(s) a NM:NM MPI rest & stress grp *[facility]* *[facility]* [address] [place] [address] Myocardial Perfusion Imaging - SPECT Cabrera protocol Date of study: 04/23/2018 *PATIENT PRESENTATION* Height: 182.9cm (72in) Blood Pressure: Weight: 120.9kg (266lb) BSA: 2.52m^2 Referring physician: Angeles Bowens Ordering physician: Jg Stubbs Impressions: - Normal study after pharmacologic stress. - Good functional capacity - stress converted to pharm stress as THR not achieved. Summary: 1. Myocardial perfusion imaging: No myocardial perfusion defects noted. 2. The calculated left ventricular ejection fraction after stress: 70%. LV global systolic function is normal. No left ventricular regional motion abnormality. 3. Stress: The target heart rate was not achieved. Indication: R07.9. History: REASON FOR TESTING: PATIENT PRESENTED TO THE ED ON 04/13/18 WITH INTERMITTENT EPISODES OF MIDSTERNAL SHARP CHEST PAINS, ALTHOUGH AT OTHER TIMES HIS CHEST PAIN WILL BE A DULL PRESSURE. CHEST PAIN OCCURS AT REST AND WITH ACTIVITY. TROPONINS IN ER WERE NEGATIVE. PATIENT REPORTS HAVING INTERMITTENT CHEST PAIN FOR THE PAST 18 MONTHS. CHEST PAIN OCCASIONALLY WILL RADIATE TO NECK AND HE MAY HAVE DIAPHORESIS. TODAY PATIENT DENIES CHEST PAIN UPON ARRIVAL TO EXERCISE TESTING. SIGNIFICANT PAST MEDICAL HISTORY: STATUS POST RCA PCI FOR STEMI IN AUGUST 2017. TWO STENTS PLACED IN AUGUST 2017. SMOKING STATUS: SMOKER 40 YEARS, 2 PPD EXERCISE ROUTINE: DAILY ADL'S. PMH: COPD. Risk factors: Family history of coronary artery disease. Current tobacco use. Dyslipidemia. Cholesterol: 147mg/dl. HDL: 31mg/dl. LDL: 77mg/dl. Triglycerides: 313mg/dl. ALLERGIES: NO KNOWN ALLERGIES. MEDICATIONS: ACETAMINOPHEN 650 MG PRN, ASPIRIN 81 MG DAILY, ATORVASTATIN 20 MG HS, PLAVIX 75 MG DAILY, GLIPIZIDE 5 MG HS, ISOSORBIDE MONONITRATE 30 MG DAILY, METFORMIN 1000 BID, METOPROLOL 25 MG DAILY, NITROGLYCERIN 0.4 MG PRN, PANTOPRAZOLE 40 MG HS, PROAIR HFA 2 PUFFS PRN. Imaging Technique: Protocol: Cabrera protocol. Acquisition: Gated SPECT; 1 day - rest/stress. The patient was imaged in the supine position. Attenuation correction used. Isotope administration: - Rest. Tc[99m]-sestamibi. Dose: 11.7mCi. Injection time: 08:15 AM. Injection to stress time: 00:45. - Stress. Tc[99m]-sestamibi. Dose: 37.1mCi. Injection time: 10:35 PM. 1-2 min before end of exercise Baseline ECG: SINUS RHYTHM. HR 76 BPM. Stress protocol: + +---+ + + !Stage !HR !BP (mmHg) !Comments ! + +---+ + + !Baseline supine !76 !136/90 (105)! ! + +---+ + + !Baseline standing !85 !124/90 (101)! ! + +---+ + + !Stage I; 1.7mph, 10degrees; 3 min!113!152/84 (107)! ! + +---+ + + !Stage II; 2.5mph, 12degrees; 3 !117!168/84 (112)! ! !min ! ! ! ! + +---+ + + !Peak stress !129! ! ! + +---+ + + !Recovery; 1 min !115!170/80 (110)! ! + +---+ + + !1 min !101!158/84 (109)!Inject Regadenoson.! + +---+ + + !3 min !94 !140/88 (105)! ! + +---+ + + !6 min !86 !140/90 (107)! ! + +---+ + + * Stress results: STRESS TEST ENDED IN 9 MINUTES 1 SECOND DUE TO FATIGUE. PATIENT DID NOT MEET TARGET HEART RATE. NORMAL HEART RATE AND BLOOD PRESSURE RESPONSE TO EXERCISE. MAX HEART RATE: 129 76 % OF TARGET HEART RATE. MET'S: 1035 RARE PAC'S WITH EXERCISE. NO ANGINA NO SIGNIFICANT ST SEGMENT CHANGES. FUNCTIONAL CAPACITY: AVERAGE CAPACITY. TRANSITIONED TO LEXISCAN BECAUSE TARGET HEART RATE NOT ACHIEVED. LEXISCAN PROTOCOL STRESS TEST ENDED IN 7 MINUTES 13 SECONDS. NORMAL HEART RATE AND BLOOD PRESSURE RESPONSE TO LEXISCAN INJECTION. NO ANGINA. NO SIGNIFICANT ST SEGMENT CHANGES. Maximal heart rate during stress was 129bpm (76% of maximal predicted heart rate). The maximal predicted heart rate was 169bpm. The target heart rate was not achieved. The rate-pressure product for the peak heart rate and blood pressure was 75427xv Hg/min. Myocardial perfusion: Imaging information: gated. Left ventricular size is normal. No myocardial perfusion defects noted. Ventricular Function (Wall Motion): The calculated left ventricular ejection fraction after stress: 70%. LV global systolic function is normal. No left ventricular regional motion abnormality. Study data: Angeles Bowens MD supervised and was readily available during the procedure. This study was interpreted by [facility]. Study status: Routine. Consent: The risks, benefits, and alternatives to the procedure were explained to the patient and informed consent was obtained. Procedure: Initial setup. A baseline ECG was recorded. Surface ECG leads and manual cuff blood pressure measurements were monitored. Heart sounds: Normal. Lung sounds: Normal. Treadmill exercise testing was performed using the Cabrera protocol. Study completion: All catheters inserted during the procedure were removed. The patient tolerated the procedure well and was discharged from the lab. Discharge: The patient left the laboratory in stable condition. Birthdate: Patient birthdate: 1965. Sex: Gender: male. Study date: Study date: 04/23/2018. Study time: 00:01 AM. Signature Documentation: - The imaging portion of this study was interpreted by [employer] Angeles Bowens MD. - The imaging portion of this study was interpreted by Nuclear Radiologist Jeovanny Larson MD. - The Stress ECG portion of this study was interpreted by Angeles Bowens MD. Electronically signed by Angeles Bowens 04/23/2018 15:04 Ordering provider: Jg Stubbs M.D. CC: ANGELES BOWENS MD Dictated by: Jeovanny Larson M.D.04/23/18 1400 <Electronically signed by Jeovanny Larson M.D.>04/24/18 1489 Disclaimer: The [facility] radiologist is signing only the Nuclear Medicine MPI Imaging exam portion of the report. Transcribed by: Lottie Sanchez04/24/18 0828 This is privileged, confidential information intended only for the provider named. Any use or distribution by any person other than this provider is strictly prohibited. If you receive this report in error, please notify us immediately at [phone] and return the original report to us Echocardiogram Summary: 02/01: LVEF 55-60%, no sig valve dz. Carotid Artery Summary:: 01/01: No evidence of a hemodynamically significant carotid stenosis. Pulmonary Function Summary: 11/29: Mild obstructive airways disease with no significant bronchodilator response. Clinical correlation recommended. Anesthesia Assessment and Plan Anesthesia History Personal History: No History of Anesthesia Complications Family History: No Family History of Anesthesia Complications Exercise Tolerance Exercise Tolerance: Metabolic Equivalents>4 Pertinent Negatives Pertinent Negatives: Other (Active GERD despite Rx) Cardiac & Pulmonary Exam Cardiac Exam: Normal S1/S2 Heart Sounds Pulmonary Exam: Clear Bilateral Breath Sounds Implantable Cardiac Device Does patient have a Pacemaker or an ICD?: No Airway Exam Known Difficult Airway: No Mallampati Class: 3 Mouth Opening: Normal (> 3cm) Thyromental Distance: Greater than 3 cm Neck Range of Motion: Limited ROM (pt reports intermittent pain and numbness in hands related to neck movement ) Neck Circumference: Thick Teeth Condition: Normal Dentition ASA Classification ASA Score: ASA 3 Emergency Case?: No NPO Status NPO Status: NPO Clears >2 hours, Solids >8 hours Anesthesia Plan Resuscitation Status: Full Code Anesthesia Technique: General Anesthesia Airway Planned: Endotracheal Tube (D/T reflux/Diabetes) Monitors Used: Standard Monitors
--- NOTE | 2023-06-28 11:37 | HPE_ITS ---
Assessment and Plan Assessment and plan (1) Cubital tunnel syndrome on left: Status: Acute (2) Carpal tunnel syndrome of left wrist: Status: Acute Assessment and plan: Saym is a 57-year-old male who has severe carpal tunnel and cubital tunnel syndrome on the left side. He is a diabetic and has these severe nerve duction study findings for which I recommend proceeding with cubital tunnel release decompression with potential nerve transposition as well as carpal tunnel release. I reviewed the technical features of each case. I discussed the risk to include bleeding, infection, pain, stiffness, continued numbness, continued symptoms, damage to nerves and vessels, numbness or hypersensitivity about the medial elbow, weakness, need for repeat procedures. Despite these risk, he elected to proceed. History of Present Illness Narrative: Samy is a 57-year-old male have seen previously for a cyst about his right hand as well as ongoing symptoms from cubital tunnel and carpal tunnel about the left side. He has severe cubital and carpal tunnel as document on nerve conduction studies. He has been dealing this for quite some time and does want to move forward with getting this fixed. He had a cubital tunnel release on the right side and did very well from that. He has had no other significant changes. No chest pain or shortness of breath. He does report significant reflux. He has controlled diabetes. He also has known CARLOTA and hypertension. Review of Systems All systems reviewed & are unremarkable except as noted in HPI and below PFSH All Active Problems Tubular adenoma of colon (Acute 02/18/14) 04/13/20 TAx5 2 additional polyps 2023 Gross hematuria (Acute) Cubital tunnel syndrome on left (Acute) S/P Release: 06/28/2023 Carpal tunnel syndrome of right wrist (Acute) Carpal tunnel syndrome of left wrist (Acute) S/P ECTR: 06/28/2023 Gout due to renal impairment, multiple sites (Acute) Hyperuricemia (Acute) ALTMAN (nonalcoholic steatohepatitis) (Chronic 01/04/23) Elev Alk Phos, abd u/s Pituitary abnormality (Acute) Seen incidentally, normal cortisol and TSH Peripheral artery disease (Acute) Orthostatic hypotension (Acute) Diabetes mellitus with stage 3a chronic kidney disease, with long-term current use of insulin (Acute) Type 2 diabetes mellitus with diabetic neuropathy, with long-term current use of insulin (Acute) Lumbosacral spondylosis without myelopathy (Acute) Memory change (Acute) Claudication (Acute) Obesity (Chronic) Bilateral lower extremity edema (Chronic) left > right; felt to be venous insufficiency, not wearing compression. Normal echo in 12/2021 Erectile dysfunction (Acute) BPH loc w urin obs/LUTS (Acute) Actinic keratosis due to exposure to sunlight (Acute) Serrated adenoma of colon (Acute ~04/2020) 04/13/20 Sessile serrated adenomax2 Diabetic peripheral neuropathy (Acute) GERD (gastroesophageal reflux disease) (Acute) HTN (hypertension) (Chronic) Smoker (Acute) CAD S/P percutaneous coronary angioplasty (Chronic 08/28/17) Hyperlipidemia (Chronic) CARLOTA (obstructive sleep apnea) (Chronic) Depression with anxiety (Chronic) resistant to treatment with antidepressants Medical History Colon polyp, hyperplastic (~04/2020) 04/13/20 HP x19 Pyelonephritis due to Escherichia coli History of left heart catheterization [place] [facility] 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 Cervical disc disease Chronic neck pain Thoracic spine pain (07/17/15) Spondylosis of cervical region without myelopathy or radiculopathy (04/17/15) Chronic pain syndrome (09/30/16) 08/19/16-CONTROLLED SUBSTANCE AGREEMENT-APPROVED FOR 3 MONTHS Chronic obstructive lung disease Chronic left-sided low back pain with left-sided sciatica (12/03/15) Blindness, 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 Acute nontraumatic kidney injury Parastomal hernia Surgical History Ganglion cyst of dorsum of right wrist S/P Excision: 06/06/2023 Status post vasectomy Status post Luisana fundoplication Status post inguinal hernia repair Status post carpal tunnel release History of esophagogastroduodenoscopy (~04/2023) History of incisional hernia repair with mesh right ulnar graft left shoulder repair Luisana Fundoplication Colonoscopy - MAC (~04/2023) 02/18/14 Family History Father , age 74 Diabetes Alcohol abuse sober in later years Essential hypertension Hyperlipidemia Cancer Mother , age 72 Diabetes Essential hypertension Heart disease Hyperlipidemia Mental disorder pt thinks she has bipolar Depression Brother Hyperlipidemia Depression Diabetes Heart disease Hypertension Sister Alcohol abuse Depression Stroke Substance abuse Sister Depression Heart disease Hypertension Brother Hyperlipidemia Hypertension Brother , age 29 Alcohol abuse Depression Substance abuse Social History Smoking/Tobacco Use Status: Current every day Tobacco Type: cigarettes Smoking packs per day: 2 Smoking cigarettes per day: 40.0 Tobacco: How many years used: 40 Quit status: considering quitting Second Hand Exposure: Yes Counseling given: provider counseling Smoking risk assessment performed?: Yes Alcohol Intake: current Alcohol Intake frequency: holidays/special occasions only Alcohol type: hard liquor Drug use: Never Substance use type: does not use Details: 06/28/23: pt reports smoking 3 cigarettes prior to DSU today Caregiver/Support person: No Household members: spouse and family Housing: house Communication Needs: None Do you need help understanding health information?: Rarely 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 Pets and animals: Yes Pets and animals: dog(s) Sexually active: No Do you think of yourself as: straight/heterosexual Current gender identity: male What is your relationship status?: How often do you talk on the phone with friends or family?: once per week How often do you get together with friends or relatives?: once per week How often do you attend mormon or pentecostalism services?: decline to answer Do you belong to any clubs or organized social groups?: no Panel score (0-1 are the most socially isolated patients): 1 Duration: decline to answer Frequency: decline to answer Mayela/Bahai: No preference Special mayela needs: No Seatbelt use: always Helmet use: Yes Helmet use: always Drive intox or ride w/intox 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 liraglutide [From Victoza] AdvReac Intermediate GI upset Verified 06/28/23 09:45 Home Medications Medication Instructions Recorded Confirmed Type aspirin 81 mg tablet,delayed 81 mg PO DAILY 08/28/17 06/26/23 History release (Aspir-) vitamin B complex (B 1 tab PO DAILY 08/19/19 06/28/23 History Complex-Vitamin B12 tablet) empagliflozin 25 mg tablet 25 mg PO DAILY #90 tabs 06/07/22 06/26/23 Rx pantoprazole 40 mg tablet,delayed 40 mg PO BID #180 tabs 08/04/22 06/28/23 Rx release albuterol sulfate 90 mcg/actuation 2 puff inhalation Q6H PRN 09/30/22 06/28/23 Rx aerosol inhaler shortness of breath or wheezing #8.5 grams atorvastatin 80 mg tablet 80 mg PO QHS #90 tabs 09/30/22 06/28/23 Rx blood-glucose sensor (Dexcom G7 #1 ea 09/30/22 06/28/23 Rx Sensor device) fluticasone fur. 200 mcg-umeclid 1 inh inhalation DAILY #60 ea 09/30/22 06/28/23 Rx 62.5 mcg-vilant 25 mcg inhalat.powder (Trelegy Ellipta) folic acid 1 mg tablet 1 mg PO DAILY #90 tabs 09/30/22 06/28/23 Rx nitroglycerin 0.4 mg sublingual See Rx Instructions .Route 09/30/22 06/28/23 Rx tablet .COMPLEX #100 tabs pen needle, diabetic 31 gauge x #500 ea 12/01/22 06/28/23 Rx 1/4 (Comfort EZ Pen [place]) metoprolol succinate 50 mg 25 mg (1/2 x 50 mg) PO DAILY #90 12/21/22 06/28/23 Rx tablet,extended release 24 hr tabs torsemide 20 mg tablet 40 mg (2 x 20 mg) PO DAILY #180 02/10/23 06/28/23 Rx tabs insulin lispro 200 unit/mL (3 mL) 40 unit (0.2 mL) subcut QACHS #24 03/01/23 06/28/23 Rx subcutaneous pen (Humalog KwikPen mL U-200 Insulin) tamsulosin 0.4 mg capsule (Flomax) 0.4 mg PO DAILY #90 caps 04/05/23 06/28/23 Rx allopurinol 100 mg tablet 200 mg (2 x 100 mg) PO DAILY #180 05/16/23 06/28/23 Rx tabs colchicine 0.6 mg tablet (Colcrys) See Rx Instructions PO .COMPLEX 05/16/23 06/28/23 Rx #30 tabs glucagon 3 mg/actuation nasal spray 3 mg intranasal ONCE PRN 05/16/23 06/28/23 Rx hypoglycemia #2 ea insulin degludec 200 unit/mL (3 120 unit subcut HS 06/02/23 06/28/23 History mL) subcutaneous pen acetaminophen 500 mg tablet 1,000 mg (2 x 500 mg) PO TID #90 06/28/23 Rx tabs hydrocodone 5 mg-acetaminophen 325 1 tab PO Q6H PRN pain #6 tabs 06/28/23 Rx mg tablet ibuprofen 600 mg tablet 600 mg PO TID PRN pain #90 tabs 06/28/23 Rx Exam Const General: cooperative, healthy appearing, comfortable and no acute distress Orientation: alert, awake and oriented x3 Resp Effort & Inspection: normal respiratory effort Auscultation: clear to auscultation bilaterally Cardio Rate: regular rate Rhythm: regular rhythm Results Last Vital Signs Temp 36.5 C 06/28/23 09:30 Pulse 74 06/28/23 09:30 Resp 16 06/28/23 09:30 BP 111/78 06/28/23 09:30 Pulse Ox 98 06/28/23 09:30
[2023-06-28] MEDS: ceFAZolin 2 GM/50 ML BAG IVPB (13:15)
--- NOTE | 2023-06-28 14:48 | W.PM.OP ---
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 Nonoperative treatment options had been trialed. Nerve conduction studies identified the carpal and cubital tunnel as the point of compression. Given failure of nonoperative treatments and persistent symptoms, I offered operative intervention. I reviewed the technical details of a carpal tunnel release and cubital tunnel decompression with possible anterior subcutaneous transposition. I reviewed the risk of the procedure to include bleeding, infection, pain, stiffness, nerve instability, damage to superficial nerves, persistent symptoms, and incomplete release. Despite these risks, the patient elected to proceed. Findings: The carpal tunnel was release with a standard endoscopic technique without difficulty and excellent visualization. There was a tightened cubital tunnel. The ulnar nerve was release from the first motor branch distally through the [place] proximally. Procedure Description: Samy was greeted in the preoperative holding area where the correct side was identified and marked. The consent was reviewed with the patient and signed. The history and physical was updated. All questions were answered. He was taken back to the operating room. The patient was placed into the supine position on the operating room table with the left arm on an arm board. A nonsterile tourniquet was placed high onto the arm, into the axilla. All bony prominences were well padded. Prophylactic antibiotics in the form of Cefazolin were administered. The right arm was then prepped with Chloraprep and draped in a standard fashion with stockinette and extremity drape. A timeout to confirm correct identity, side and site, procedure, allergies, anesthesia, and medical concerns was performed. The surgical site was marked in the volar wrist creases in line with the radial border of the fourth ray. This area was anesthetized with approximately 6cc of 1% Lidocaine with Epinephrine. The surgical site about the medial elbow was drawn on the skin just posterior to the medial epicondyle borders. The planned surgical field was anesthetized with 1% Lidocaine with Epinephrine. The limb was then exsanguinated with an Esmarch. Starting with the carpal tunnel, the skin was incised with a 15 blade, approximately 1cm. The skin only was cut and the deeper tissue was dissected bluntly with a tenotomy scissor, avoiding passing nerve and venous structures. The fascia was penetrated and opened bluntly. A two-prong skin hook was placed under this proximal fascial edge. A series of hamate finders were used to identify and dilate the carpal tunnel. Synovial elevator was used to free synovial attachments to the underside of the transverse carpal ligament. My thumb was kept in the palm to ursula the distal extent of the carpal tunnel and correctly position the hand. The Microaire endoscope was inserted without difficulty and without resistance. Excellent visualization showed horizontally running fibers of the transverse carpal ligament (TCL). The distal extent of the TCL was visualized and the end of the scope palpated with the thumb. The blade was elevated and withdrawn from distal to proximal. The TCL was split into two flaps. The endoscope was reinserted to confirm complete release and any remnant ligament was incised. The scope was withdrawn and the proximal aspect of the carpal tunnel was grossly inspected and appeared release with the median nerve visible. The antebrachial fascia at the level of the wrist was then freed from the overlying skin and then the underlying median nerve with blunt dissection. This was transected longitudinally for about 3cm proximal to the wrist incision. The wound was then irrigated with easy flow of irrigant distally and proximally. The incision was closed with a single 4-0 Nylon suture. . Attention was then turned to the cubital tunnel release. The skin of the medial elbow was incised only with the elbow in some flexion and on a bump. The deep tissue and subcutaneous fat was dissected with a tenotomy scissors trying to protect any branches of the medial antebrachial cutaneous nerve. Any branches that were identified were retracted out of the way. The ulnar nerve was palpated and identified. A small window into the cubital tunnel, sheath overlying the nerve, was created and the nerve was able to be palpated with the [place]. A Metzenbaum scissor was then used to open up the sheath starting with Benítez's ligament. I then worked distal over the ulnar nerve releasing any constraints against the nerve all the way to the fascia of the FCU muscle belly. This muscle belly was bluntly all the way down to the first motor branch of the ulnar nerve and the overlying fascia was incised. Likewise starting there at the medial epicondyle, I proceeded to work proximally to release any constraints over the ulnar nerve. This was taken all the way to the arc[place] of [place]. The medial intermuscular septum was also palpated and any sharp edges against the ulnar nerve were resected and released. After fully releasing the nerve it was inspected visually. I was also able to palpate the nerve fully and reach one finger up into the proximal and distal aspects to make sure there were no constraints against the nerve. A freer elevator was also used to slide easily against the ulnar nerve without any points of constriction. The arm was then taken through range of motion. The ulnar nerve did sublux/dislocate out of its groove behind the medial epicondyle. Therefore, I performed a anterior subcutaneous transposition. An adipofascial flap was elevated off of the medial epicondyle, anchor to the most medial aspect. The ulnar nerve was mobilized and detached from any subtle connections which would prevent its mobilization. The first branch off the ulnar nerve to the FCU was quite tight. I dissected it out to free up this attachments into the muscles. However, there is also branches look to be going to the joint capsule itself which tether the nerve slightly. This was continued be freed up. There is no notable tension on the nerve at the far distal or proximal ends. I then moved the nerve anteriorly and secured the adipofascial flap to the overlying dermis. This was done with 2-0 Vicryl. Once it was in position it was checked to make sure that it had adequately contained the nerve but not compressed the nerve. A [place] was ran against the length of the nerve showed no signs of recompression. This was then secured with 2 additional sutures. The tourniquet was then deflated. Any areas of bleeding were cauterized with bipolar electrocautery. The wound was thoroughly irrigated. The deep tissue was closed with a 3-0 Vicryl. The skin was closed with a 4-0 nylon. The wounds were dressed with Xeroform, 4 x 4's, ABD, Kerlix and an Dawson wrap. Samy was placed into a sling. He was transferred back to the PACU in a stable condition.
--- NOTE | 2023-06-28 15:19 | W.ANESPOSTOP ---
Postoperative Evaluation Date, Time and Location Date Performed: 06/28/23 Time Performed: 15:19 Patient Location: Day Surgery Unit Vital Signs Most Recent Imported Vital Signs: Most Recent Vital Signs Temp Pulse Resp BP Pulse Ox 36.3 C L 67 18 102/55 L 93 06/28/23 15:05 06/28/23 15:05 06/28/23 15:05 06/28/23 15:05 06/28/23 15:05 Pain Score Most Recent Pain Score: Most Recent Pain Score Pain Level 0 06/28/23 15:05 Assessment Mental Status: Awake (Alert & Oriented to Patient Baseline) Airway and Respiratory Function: Patent airway with normal (patient baseline) respiratory exam Cardiovascular Function: Hemodynamically Stable Hydration Status: Adequately Hydrated Nausea & Vomiting: No Nausea or Vomiting Pain: Pt. Denies Any Pain Peripheral Nerve Block: Patient did not receive a nerve block
== END 2023-06-28 16:04 | disposition home or self-care (01) ==
LOC: SUR 08:49
PROVIDERS: PCP Family Medicine; Visit Provider Student in an Organized Health Care Education/Training Program
PROC: 01N54ZZ Release Median Nerve, Percutaneous Endoscopic Approach (ICD-10-PCS; CPT 29848; principal; 2023-06-28 12:15)
PROC: (CPT 64718; 2023-06-28 12:15)
DX: G56.22 Lesion of ulnar nerve, left upper limb (principal); G56.02 Carpal tunnel syndrome, left upper limb; E11.42 Type 2 diabetes mellitus with diabetic polyneuropathy
CPT/HCPCS: 64718; 29848; J0690; J1100; J2001; J2405; J2704; J3010

== ENCOUNTER → 2023-07-10 08:09 | Outpatient (BNVA) | payer MEDICARE, OTHER, SELFPAY | PROVIDERS: PCP Family Medicine; Visit Provider Nurse Practitioner Gerontology | DX: R31.0 Gross hematuria (principal); N40.1 Benign prostatic hyperplasia with lower urinary tract symptoms | CPT/HCPCS: 51798; 81003; 99213 ==

== ENCOUNTER → 2023-07-11 13:19 | Outpatient (BNVA) | payer MEDICARE, OTHER, SELFPAY | PROVIDERS: PCP Family Medicine; Referring Provider Family Medicine | DX: Z47.89 Encounter for other orthopedic aftercare (principal); G56.02 Carpal tunnel syndrome, left upper limb; G56.22 Lesion of ulnar nerve, left upper limb ==

== ENCOUNTER 2023-08-03 05:01 | Outpatient (CLI) | payer MEDICARE, OTHER, SELFPAY ==
[2023-08-03 07:54] LABS: Abs Immature Grans 0.06 10^3/uL (0.0-0.06); Absolute Basophil Count 0.08 10^3/uL (0.0-0.2); Absolute Eosinophil Count 0.22 10^3/uL (0.0-0.7); Absolute Monocyte Count 0.76 10^3/uL (0.1-0.8); Absolute Neutrophil Count 7.68 10^3/uL (1.2-6.7); Basophils % 0.7 %; Eosinophils % 1.9 %; HCT 49.6 % (40.0-50.0); Immature Grans % 0.5 %; Lymphocytes % 25.5 %; MCH 30.1 pg (27.0-33.0); MCHC 34.3 % (32.0-36.0); MCV 88 fL (80-95); MPV 9.5 fL (8.0-11.0); Monocytes % 6.4 %; Platelet Count 271 10^3/uL (130-400); RBC 5.64 10^6/uL (4.36-5.78); RDW 14.3 % (11.8-14.1); RDW-SD 45.5 fL; WBC 11.82 10^3/uL (4.4-10.8)
[2023-08-03 07:57] LABS: Absolute Lymphocyte Count 3.01 10^3/uL (1.2-3.4)
[2023-08-03 08:32] LABS: Anion Gap 9.4 mmol/L (3-11); BUN 37 mg/dL (7-18); CO2 31.6 mmol/L (21.0-32.0); Calcium 9.4 mg/dL (8.5-10.1); Calculated LDL 39 mg/dL (<100); Chloride 99 mmol/L (98-107); Cholesterol 136 mg/dL (<200); Estimated GFR 38.45 (mL/min/1.73m2); Glucose 189 mg/dL (74-106); HDL Cholesterol 34 mg/dL (40-60); Potassium 3.2 mmol/L (3.5-5.1); Sodium 140 mmol/L (136-145); TSH (W/Ref FT4) 2.76 uIU/mL (0.36-3.74); Triglyceride 318 mg/dL (<150)
[2023-08-03 08:52] LABS: NT-proBNP 112 pg/mL (<300)
== END 2023-08-03 05:02 | disposition home or self-care (01) ==
PROVIDERS: PCP Family Medicine; Visit Provider Nurse Practitioner Family
DX: Z00.00 Encounter for general adult medical examination without abnormal findings (principal); I10 Essential (primary) hypertension; I73.9 Peripheral vascular disease, unspecified; E11.40 Type 2 diabetes mellitus with diabetic neuropathy, unspecified; Z79.4 Long term (current) use of insulin; F17.210 Nicotine dependence, cigarettes, uncomplicated; E11.22 Type 2 diabetes mellitus with diabetic chronic kidney disease; N18.31 Chronic kidney disease, stage 3a; R06.00 Dyspnea, unspecified
CPT/HCPCS: 36415; 80048; 80061; 83880; 84443; 85025

== ENCOUNTER → 2023-08-14 09:10 | Outpatient (BNVA) | payer MEDICARE, OTHER, SELFPAY | PROVIDERS: PCP Family Medicine; Referring Provider Family Medicine; Visit Provider Student in an Organized Health Care Education/Training Program | DX: Z47.89 Encounter for other orthopedic aftercare (principal); M25.632 Stiffness of left wrist, not elsewhere classified ==

== ENCOUNTER → 2023-08-15 12:43 | Outpatient (BNVA) | payer MEDICARE, OTHER, SELFPAY | PROVIDERS: PCP Family Medicine; Visit Provider Psychiatry & Neurology Neurology | DX: G47.10 Hypersomnia, unspecified (principal); R41.3 Other amnesia; I95.1 Orthostatic hypotension; E11.42 Type 2 diabetes mellitus with diabetic polyneuropathy; M50.90 Cervical disc disorder, unspecified, unspecified cervical region; G56.03 Carpal tunnel syndrome, bilateral upper limbs | CPT/HCPCS: 99214 ==

== ENCOUNTER 2023-08-17 05:20 | Outpatient (CLI) | payer MEDICARE, OTHER, SELFPAY ==
[2023-08-17] MEDS: Levalbuterol HFA 15 GM INH 4 PUFF IH (09:17)
[2023-08-17] MEDS: Inhaler, Assist Device 1 EACH MC (09:18)
--- NOTE | 2023-08-17 12:23 | W.PFT ---
Date of service: 08/17/23 Time of Service: 08:02 Pulmonary Function Test Result Indications: COPD Interpretation Spirometry: There is mild airflow limitation. No bronchodilator response. Lung Volumes: Normal lung volumes Diffusion Capacity: Normal diffusion Airway Pressure: Normal airways resistance Impression Mild airflow obstruction. Clinical Correlation therefore is recommended.
== END 2023-08-17 05:21 | disposition home or self-care (01) ==
LOC: RT 05:21
PROVIDERS: PCP Family Medicine; Visit Provider Nurse Practitioner Family
DX: J44.9 Chronic obstructive pulmonary disease, unspecified (principal)
CPT/HCPCS: 94060; 94726; 94729

== ENCOUNTER → 2023-08-30 03:46 | Outpatient (CLI) | payer MEDICARE, OTHER, SELFPAY ==
--- NOTE | 2023-08-30 11:15 | DI.MRI_ITS ---
Exam(s) MR UPPER JOINT LT WO EXAM: MR UPPER JOINT LT WO CLINICAL HISTORY: PAIN LT WRIST, SWELLING, M25.532. TECHNIQUE: Multiplanar multisequence MRI was performed. COMPARISON: Plain films 24 April 2023 FINDINGS: BONES: There is no fracture or contusion pattern. JOINTS: The radiocarpal joint is unremarkable. The carpal joints are unremarkable. TENDONS: Flexors: Unremarkable. Extensors: Unremarkable. MUSCLES: Unremarkable. MEDIAN NERVE: No fluid or edema within the carpal tunnel. Median nerve appears mildly enlarged mild ly edematous, greater distally.. SOFT TISSUES: Approximately 2 centimeter area of multiple small cystic loculations are noted at the i n the soft tissues ventral and lateral to the level of the radial carpal joint. Edema in the ventral soft tissues presumably related to recent surgery. LIGAMENTS: Unremarkable. TRIANGULAR FIBROCARTILAGE: Unremarkable. IMPRESSION: Enlargement and edema of the median nerve. No fluid within the carpal tunnel. Multiloculated ganglion cyst at the ventral aspect of the wrist the radial aspect of the radial carpa l joint. DATA REPOSITORY:
== END ==
PROVIDERS: PCP Family Medicine; Visit Provider Student in an Organized Health Care Education/Training Program
DX: M67.432 Ganglion, left wrist (principal)
CPT/HCPCS: 73221

== ENCOUNTER → 2023-09-04 07:37 | Outpatient (BNVA) | payer MEDICARE, OTHER, SELFPAY | PROVIDERS: PCP Family Medicine; Referring Provider Family Medicine; Visit Provider Student in an Organized Health Care Education/Training Program | DX: G56.02 Carpal tunnel syndrome, left upper limb (principal); G56.22 Lesion of ulnar nerve, left upper limb | CPT/HCPCS: 99213 ==

== ENCOUNTER → 2023-09-06 01:06 | Outpatient (CLI) | payer MEDICARE, OTHER, SELFPAY ==
--- NOTE | 2023-09-06 15:15 | DI.MRI_ITS ---
Exam(s) MR LUMBAR SPINE WO EXAM: MR LUMBAR SPINE WO CLINICAL HISTORY: LOW BACK PAIN WITH CLAUDICATION,LUMBAR SPONDYLOSIS,M54.50,I73.9,M47.817. TECHNIQUE: Multiplanar multisequence MRI of the Lumbar spine was performed. COMPARISON: CR XR WRIST RT COMPLETE from 04/24/2023 FINDINGS: Bones: The last intervertebral disc space is designated the L5/S1 level for the numbering purpose of this ex amination. The vertebral body heights are well maintained. Alignment: Unremarkable. The marrow signal characteristics are unremarkable. Cord: The conus tip ends at the T12 level. It is of normal size and signal intensity. T12-L1: No focal disc herniation is present. No central spinal canal stenosis.No neural foraminal st enosis. L1-2:Minimal disc bulging. Osteophytes projecting anteriorly. No focal disc herniation is present. No central spinal canal stenosis.No neural foraminal stenosis. L2-3:Degenerative signal changes in the endplates. Endplate osteophytes. Disc bulging, eccentric to gillespie the left. Superimposed left sided disc herniation with inferior extrusion of a small amount of disc material. Mild central spinal canal stenosis.Mild left neural foraminal narrowing. L3-4: Small endplate osteophytes and mild disc bulging.No focal disc herniation is present. No centr al spinal canal stenosis.Mild bilateral neural foraminal stenosis. L4-5:Loss of disc height eccentric toward the left. Small endplate osteophytes. Broad-based central disc protrusion. Mild facet degenerative changes. No central spinal canal stenosis.Mild left neura l foraminal stenosis. L5-S1: No focal disc herniation is present. No central spinal canal stenosis.No neural foraminal st enosis. The visualized SI joints and sacrum are unremarkable. Soft tissues: The paraspinal soft tissues are unremarkable. IMPRESSION: Left-sided disc herniation with inferior extrusion of disc material at L2-3 causing mild central isac l stenosis. Apparent left-sided nerve root impingement. Broad-based central disc protrusion at L4-5. No significant central canal stenosis. Multilevel mild neural foraminal narrowing on the left. DATA REPOSITORY:
== END ==
PROVIDERS: PCP Family Medicine; Visit Provider Psychiatry & Neurology Neurology
DX: M47.817 Spondylosis without myelopathy or radiculopathy, lumbosacral region (principal); I73.9 Peripheral vascular disease, unspecified; M54.50 Low back pain, unspecified
CPT/HCPCS: 72148

== ENCOUNTER → 2023-10-16 07:52 | Outpatient (BNVA) | payer MEDICARE, OTHER, SELFPAY | PROVIDERS: PCP Family Medicine; Referring Provider Family Medicine; Visit Provider Student in an Organized Health Care Education/Training Program | DX: G56.22 Lesion of ulnar nerve, left upper limb (principal); G56.02 Carpal tunnel syndrome, left upper limb | CPT/HCPCS: 99213 ==

== ENCOUNTER → 2023-10-18 09:07 | Outpatient (BNVA) | payer MEDICARE, OTHER, SELFPAY | PROVIDERS: PCP Family Medicine; Visit Provider Psychiatry & Neurology Neurology | DX: G56.22 Lesion of ulnar nerve, left upper limb (principal); G47.10 Hypersomnia, unspecified; R41.3 Other amnesia; I95.1 Orthostatic hypotension; E11.42 Type 2 diabetes mellitus with diabetic polyneuropathy; I25.2 Old myocardial infarction; G56.02 Carpal tunnel syndrome, left upper limb; G56.01 Carpal tunnel syndrome, right upper limb; I73.9 Peripheral vascular disease, unspecified | CPT/HCPCS: 95886; 95908; 99215 ==

== ENCOUNTER 2023-10-24 15:48 | Emergency (ER) | payer MEDICARE, OTHER, SELFPAY ==
[2023-10-24] VITALS (19 sets, daily range): BP systolic 111–137; BP diastolic 50–81; PULSE 0–90; RESP 10–22; TEMP 36; O2SAT 96–98
--- NOTE | 2023-10-24 15:45 | RT.EKG_ITS ---
APPROVED REPORT Exam: Resting ECG Reason for Exam: chest pain Patient Location: E HR:87 bpm ECG Measurements Heart Rate 87 AXIS OH 187 P 40 QRSd 89 QRS 54 QT 360 T 18 QTc 434 Conclusion Sinus rhythm...normal P axis, V-rate 60- 99 Narrow complex normal sinus rhythm at a rate of 87. Normal axis. Intervals within normal limits. M ild ST segment depression in aVL. Similar to prior dated last year.
--- OUTSIDE RECORDS SUMMARY | 2023-10-24 15:58 | XMS_ITS | Encounter Summary ---
[place] [address] Care Team Providers Care Lace Roller Operator Name Role Phone Karen Barbosa MD Primary Care Provider Reason for Visit * Diagnostic Test (Routine) - Closed Specialty Diagnoses / Procedures Referred By Keith sanchez Referred To Contact Diagnoses Atherosclerosis of lower extremity with claudication Procedures Treadmill test - Vascular Lab Shira Gauthier MD [facility] [place] [address] [facility] [address], [place] [address] Referral ID Status Reason Start Date Expiration Date V isits Requested Visits Authorized [id number] Closed Specialty Service Requested 05/17/2023 05/16/2024 1 1 Encounter Details Date Type Department Care Team (Late st Contact Info) Description 08/28/2023 1:30 PM EDT Tech [place] [address] Jenifer Franks Atherosclerosis of lower extremity with claudication Social History Tobacco Use Types Packs/Day Years Used Date Smoking Tobacco: Every Day Cigarettes 1 40 Smokeless Tobacco: Never Alcohol Use Standard Drinks/Week Comments Not Currently 7 (1 standard drink = 0.6 oz pur e alcohol) DH IPV Inpatient Questions Answer Date Recorded Does Anyone Try to Keep You From Having Contact with Others or Doing Things Outside Your Home? no 10/04/2022 Feels Threatened by Someone no 09/11 Feels Unsafe at Home or Work/School no 10/04/2022 Physical Signs of Abuse Present no 10/04/2022 Sex and Gender Information Value Date Recorded Sex Assigned at Not on file Gender Identity Not on file Sexual Orientation Not on file documented as of this encounter Plan of Treatment Upcoming Encounters Date Type Department Care Team (Late st Contact Info) Description 03/20/2024 10:00 AM EST Office Visit Ophthalmology at [facility] [place] [address] Tania Gates OD [facility] [place] [address] documented as of this encounter Procedures Procedure Name Priority Date/Time Associated Diagnosis Comments TREADMILL - VASCULAR Routine 08/28/2023 1:24 PM EDT Atherosclerosis of lower extremity with claudication documented in this encounter Results * Treadmill test - Vascular Lab (08/28/2023 1:24 PM EDT) VB Text Report Department: Vascular Surgery Lab Patient: [id number] (BEL PATRICIO) CPT: 57176 Referring Physician: SHIRA GAUTHIER ?? Phone: Indications: claudication, ? exercise induced arterial disease Diabetes mellitus: yes Findings: Right ?Pressure ?? DEONTE ??Waveform ?? 1 min ??3 min ??5 min ?? Brachial ?? 105 ? DPA ?112 ? 0.97 ??Triphasic ? LICENSED MIDWIFE ?119 ? 1.03 ??Triphasic ?? 0.95 ?? 0.98 ?? 1.03 ?? Great Toe ??82 ?0.71 ? Left ? Pressure ?? DEONTE ??Waveform ?? 1 min ??3 min ??5 min ?? Brachial ?? 116 ? DPA ?112 ? 0.97 ??Triphasic ? LICENSED MIDWIFE ?126 ? 1.09 ??Triphasic ?? 1.07 ?? 1.10 ?? 1.03 ?? Great Toe ??88 ?0.76 ? Interpretation: Treadmill Settings: % Inclination: 12%, Speed: 1.5 mph. Subjective Response: Patient walked on the treadmill for a total duration of 2 minutes, with bilateral lower extremity pain beginning almost immediately. Exercise Pressure Measurement Interpretation: RIGHT: Normal ABIs at rest with a slight deterioration in arterial disease classification to the mild disease category following standard treadmill exercise. However, there was no significant change in the ankle/brachial index with exercise. LEFT: Normal ABIs at rest and no significant change in ankle/brachial index following standard treadmill exercise. No evidence of resting or exercise induced lower extremity peripheral arterial disease. Comparison: No previous treadmill study in our vascular lab database for comparison. No significant change in resting DEONTE's compared to previous exam on 05/17/23. Electronically Signed by: SHIRA GAUTHIER on 2023-08-28 02:08:45 PM [facility] VB Text Report End of Report [facility] 08/28/2023 1:24 PM EDT Shira Gauthier MD VASCULAR ORDERABLES [facility] documented in this encounter Visit Diagnoses Diagnosis Atherosclerosis of lower extremity with claudication documented in this encounter Care Teams Lace Roller Operator Relationship Specialty Start Date End Date Karen Barbosa MD [address] [place] [address] PCP - General Family Medicine 10/04/22 documented as of this encounter
--- OUTSIDE RECORDS SUMMARY | 2023-10-24 15:58 | XMS_ITS | Encounter Summary ---
[place] [address] Care Team Providers Care Psychological Stress Evaluator Name Role Phone Karen Barbosa MD Primary Care Provider Reason for Referral * Consultation (Routine) - Authorized Specialty Diagnoses / Procedures Referred By Contadrian t Referred To Contact Nephrology Diagnoses Type 2 diabetes mellitus with diabetic chronic kidney disease, unspecified CKD stage, unspecified whether group home insulin use Stage 3a chronic kidney disease Encounter for long-term (current) use of insulin Amanda Quan, INFORMATION SYSTEMS OPERATOR [address] [place] [address] [facility] [address] [place] [phone] Referral ID Status Reason Start Date Expiration Date Visits Requested Visits Authorized [id number] Authorized Consult, Test & Treat PCP Updated and/or Approved 08/09/2023 08/05/2024 6 6 Encounter Details Date Type Department Care Team (Late st Contact Info) Description 08/09/2023 Transcribe Orders eDH Incoming Referrals [phone] Karen Barbosa MD [address] [place] [address] Type 2 diabetes mellitus with diabetic chronic kidney disease, unspecified CKD stage, unspecified whether group home insulin use; Stage 3a chronic kidney disease; Encounter for long-term (current) use of insulin Social History Tobacco Use Types Packs/Day Years Used Date Smoking Tobacco: Every Day Cigarettes 1 40 Smokeless Tobacco: Never Alcohol Use Standard Drinks/Week Comments Not Currently 7 (1 standard drink = 0.6 oz pur e alcohol) [facility] Inpatient Questions Answer Date Recorded Does Anyone [...] 10:00 AM EST Office [place] [address] Tania Gates OD [facility] [address] Scheduled Referrals Name Type Priority Associated Diagnoses Orde r Schedule Referral to Nephrology Outpatient Referral Routine Type 2 diabetes mellitus with diabetic chronic kidney disease, unspecified CKD stage, 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 whether 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 Stage 3a chronic kidney disease Encounter for long-term (current) use of insulin Ordered: 08/09/2023 documented as of this encounter Visit Diagnoses Diagnosis Type 2 diabetes mellitus with diabetic chronic kidney disease, unspecified CKD stage, unspecified whether group home insulin use Stage 3a chronic kidney disease Encounter for long-term (current) use of insulin documented in this encounter Care Teams Psychological Stress Evaluator Relationship Specialty Start Date End Date Karen Barbosa MD [address] [place] [address] PCP - General Family Medicine 10/04/22 documented as of this encounter
--- OUTSIDE RECORDS SUMMARY | 2023-10-24 15:58 | XMS_ITS | Encounter Summary ---
[place] [address] Care Team Providers Care Radio Adjuster Name Role Phone Karen Barbosa MD Primary Care Provider Encounter Details Date Type Department Care Team (Late st Contact Info) Description 04/24/2023 Ancillary Procedure Radiology at [facility] [address] [place] [phone] Rosanna Clement MD [address] [place] [address] Social History Tobacco Use Types Packs/Day Years Used Date Smoking Tobacco: Every Day Cigarettes 1 40 Smokeless Tobacco: Never Alcohol Use Standard Drinks/Week Comments Not Currently 7 (1 standard drink = 0.6 oz pur e alcohol) IPV Inpatient Questions Answer Date Recorded Does [...] 10:00 AM EST Office [place] [address] Tania Gates OD [facility] [place] [address] documented as of this encounter Procedures Procedure Name Priority Date/Time Associated Diagnosis Comments FILM LIBRARY STORAGE ONLY DX WRIST Routine 04/24/2023 12:00 AM EST documented in this encounter Results * Film Library- Storage Only DX Wrist (04/24/2023 12:00 AM EST) Narrative [facility] - 10/17/2023 3:37 PM EDT This exam is auto-finalizing. It's purpose is for storage only. Rosanna Clement MD IMG FILM LIBRARY ORDERABLES Performing Organization Address City/State/[facility] Co de Phone Number [place], [place] documented in this encounter Visit Diagnoses Not on filedocumented in this encounter Care Teams Radio Adjuster Relationship Specialty Start Date End Date Karen Barbosa MD [address] [place] [id number] PCP - General Family Medicine 10/04/22 documented as of this encounter
--- OUTSIDE RECORDS SUMMARY | 2023-10-24 15:58 | XMS_ITS | Encounter Summary ---
[place] [address] Care Team Providers Care Systems Tester Name Role Phone Karen Barbosa MD Primary Care Provider [phone] Reason for Visit * Reason Comments Pseudophakia Encounter Details Date Type Department Care Team (Late st Contact Info) Description 03/09/2023 10:40 AM EST Office [place] [address] Tania Gates, [facility] [address] Diabetic eye exam; Pseudophakia of right eye; History of YAG laser capsulotomy of lens, right; Age-related nuclear cataract of left eye; History of eye injury; Astigmatism of both eyes with presbyopia Social History Tobacco Use Types Packs/Day Years Used Date Smoking Tobacco: Every Day Cigarettes 1 40 Smokeless Tobacco: Never Alcohol Use Standard Drinks/Week Comments Not Currently 7 (1 standard drink = 0.6 oz pur e alcohol) [facility] Inpatient Questions Answer Date Recorded Does Anyone [...] documented as of this encounter Progress Notes * Tania Gates, OD - 03/09/2023 10:40 AM EST Encounter Diagnoses Name Primary? Diabetic eye exam Pseudophakia of right eye History of YAG laser capsulotomy of lens, right Age-related nuclear cataract of left eye History of eye injury Astigmatism of both eyes with presbyopia Samy Patricio Jr. is a 57 y.o. with the following ophthalmic problems: Assessment and Plan: DM II, No retinopathy OU, No CSME OU, per undilated exam. Patient declined dilation today - Advised BG control with diet, exercise, & meds per PCP recommendations, yearly DFE . H/O Eye Injury in 1981 with macular scar, slight nerve pallor OS: Traumatic macular scar/atrophy OS - Noted. Cataracts OS, - Monitor for now, sooner with changes in vision. Pseudophakia OD s/p YAG Capsulotomy OD - doing well - noted. Refractive Error OU - Rx given today in polycarbonate and advised radio time buyer wear for eye protection! - Findings and concerns discussed with Samy and he expressed understanding. CEE 9-12 mos Eyeglass Final Rx Eyeglass Final Rx Sphere Cylinder Dist VA Add Near VA Right [place] Sphere 20/15-1 +2.50 20/20 Left Balance Sphere 20/400 +2.50 unable Expiration Date: 03/09/2025 Polycarbonate. documented in this encounter Plan of Treatment Upcoming Encounters Date Type Department Care Team (Late st Contact Info) Description 03/20/2024 10:00 AM EST Office [place] [address] Tania Gates, OD [facility] [place] [address] documented as of this encounter Visit Diagnoses Diagnosis Diabetic eye exam Examination of eyes and vision Pseudophakia of right eye Lens replaced by other means History of YAG laser capsulotomy of lens, right Age-related nuclear cataract of left eye Senile nuclear sclerosis History of eye injury Personal history of other injury Astigmatism of both eyes with presbyopia documented in this encounter Care Teams Systems Tester Relationship Specialty Start Date End Date Karen Barbosa MD [address] [place] [address] PCP - General Family Medicine 10/04/22 documented as of this encounter
--- OUTSIDE RECORDS SUMMARY | 2023-10-24 15:58 | XMS_ITS | Encounter Summary ---
[place] [address] Care Team Providers Care Moth Exterminator Name Role Phone Karen Barbosa MD Primary Care Provider [phone] Encounter Details Date Type Department Care Team (Late st Contact Info) Description 05/17/2023 Telephone [place] [phone] Luc Tai Social History Tobacco Use Types Packs/Day Years Used Date Smoking Tobacco: Every Day Cigarettes 1 40 Smokeless Tobacco: Never Alcohol Use Standard Drinks/Week Comments Not Currently 7 (1 standard drink = 0.6 oz pur e alcohol) [facility] Inpatient Questions Answer Date Recorded Does Anyone [...] documented as of this encounter Miscellaneous Notes * Telephone Encounter - Luc Tai - 05/17/2023 3:04 PM EST LVMx1 to schedule 2-[address] up [address] Suckow Treadmill DEONTE - claudication documented in this encounter Plan of Treatment Upcoming Encounters Date Type Department Care Team (Late st Contact Info) Description 03/20/2024 10:00 AM EST Office [place] [address] Tania Gates OD [facility] [address] documented as of this encounter Visit Diagnoses Not on filedocumented in this encounter Care Teams Moth Exterminator Relationship Specialty Start Date End Date Karen Barbosa MD [address] [place] [address] PCP - General Family Medicine 10/04/22 documented as of this encounter
--- OUTSIDE RECORDS SUMMARY | 2023-10-24 15:58 | XMS_ITS | Clinical Summary ---
[place] [address] Care Team Providers Care Certified Addiction Counselor Name Role Phone Karen Barbosa MD Primary Care Provider Allergies Active Allergy Reactions Criticality Noted Date Comments Doxycycline Nausea And Vomiting 07/04/2018 Unclassified Drug Nausea And Vomiting 7 Had an allergic reaction to an antibiotic but does not know the name Venlafaxine High 08/24/2017 Medications Medication Sig Dispensed Refills Start Date End Date Status aspirin 81 mg Tablet, Delayed Release (E.C.) Take 81 mg by mouth Daily. 08/27/2017 Active nitroGLYcerin (NITROSTAT) 0.4 mg Tablet, Sublingual PLACE 1 TABLET UNDER TONGUE EVERY 5 MINUTES DIRECTED 3 11/23/2018 Active atorvastatin (Lipitor) 80 mg Tablet Take 1 tablet by mouth every evening. 90 tablet 3 08/07/2019 Active pantoprazole EC (Protonix) 40 mg Tablet, Delayed Release (E.C.) Take 1 tablet by mouth 2 times daily. 90 tablet 3 08/07/2019 Active folic acid (Folvite) 1 mg Tablet Take 1 tablet by mouth daily. 90 tablet 3 08/08/2019 Active nicotine (NICODERM CQ) 21 mg/24 hr Patch 24 hr Change 2 patches on the skin daily. 28 patch 08/08/2019 Active Additional Information Patient not taking.Reported on 04/25/2023 thiamine (Vitamin B1) Take 1 tablet by mouth daily. 30 tablet 3 08/08/2019 Active OneTouch Verio test strips Strip TEST BLOOD GLUCOSE TWICE A DAY 06/23/2020 Active OneTouch Verio Flex meter Misc TEST BLOOD GLUCOSE TWICE A DAY 06/23/2020 Active fluticasone-umeclid in-vilanter 100-62.5-25 mcg Disk with Device Inhale 1 puff into the lungs daily. Trelligy Ellipta Active Lantus Solostar U-100 Insulin pen 80 Units. 08/19/2020 Active humaLOG KwikPen 100 unit/mL Insulin Pen 200 Units. 09/08/2020 Activ e insulin needles, disposable, 31 gauge x 3/16 Needle 03/19/2019 Active tamsulosin (Flomax) 0.4 mg Capsule Take by mouth. 07/20/2020 Active empagliflozin (Jardiance) 10 mg Tablet Take 25 mg by mouth daily. Active torsemide (Demadex) 20 mg Tablet 40 mg daily. 01/19/2022 Active metoprolol succinate XL (Toprol-XL) 100 mg ER 24 hr tablet Take 0.5 tablets by mouth daily. 10/05/2022 Active Insulin Tresiba FlexTouch U-200 200 unit/mL (3 mL) Insulin Pen INJECT 80 UNITS UNDER THE SKIN TWICE A DAY 07/17/2023 Active acetaminophen (Tylenol) 325 mg tablet every 6 hours as needed. 06/27/2019 Active albuteroL 90 mcg/actuation inhaler (HFA) INHALE 2 PUFFS BY MOUTH EVERY 6 HOURS NEEDED FOR SHORTNESS OF BREATH OR WHEEZING Active allopurinoL (Zyloprim) 100 mg tablet Take 2 tablets by mouth Daily at Noon. 05/19/2023 Active colchicine (Colcrys) 0.6 mg tablet TAKE 2 TABLETS NOW MAY REPEAT 1 TABLET AFTER 6 HOURS MAY USE ONCE DAILY UNTIL SYMPTOMS IMPROVE 07/17/2023 Active ibuprofen (Advil) 600 mg tablet Take 1 tablet by mouth every 8 hours as needed for Pain. 06/07/2023 Active Baqsimi 3 mg/actuation [place], Non-AerosolIndicati ons:Type 2 diabetes mellitus without complication, without long-term current use of insulin 2 each by Nasal route as needed (in the event of severe hypoglycemia). May administer 2nd dose if no response to first dose after 15 minutes 2 each 1 07/25/2023 Active Active Problems Problem Noted Date Diagnosed Date Hypertriglyceridemia 07/25/2023 Unstable angina 10/04/2022 Loose stools 04/12/2021 Food intolerance 04/12/2021 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 04/12/2021 Delayed gastric emptying 04/12/2021 Dyspepsia 04/12/2021 Gastroesophageal reflux disease without esophagi tis 08/07/2019 Overview (08/07/2019): - Complicated by known Diaz's Esophagus - Followed closely as OPT with EGD pending - Continued on PPI while inpatient Type 2 diabetes mellitus wit hout complication, without long-term current use of insulin 08/07/2019 Overview (08/07/2019): - Hgb A1c of 6.3% on admission, reflecting improved control - Continued on Sensitive ISS while inpatient Uncomplicated alcohol dependence 08/07/2019 Overview (08/07/2019): - Patient reports drinking 6 drinks/day - No hx of complicated withdrawals - Initiated on CIWA Protocol on 08/07/19, as well as Thiamine/Folic Acid supplementation. Chronic obstructive pulmonary disease 08/07/2019 ST elevation myocardial infa rction involving right coronary artery 08/06/2019 Overview (08/06/2019): Mr. Samy Patricio is a 53 year male is a PMHx of CAD (s/p NSTEMI 08/2017 s/p EDEN to RCA and LCx), DM, HTN, HLD, Diaz's esophagus, chronic back pain, and alcohol and tobacco use who developed persistent chest pain and syncope found to have an inferior STEMI. - Inferior STEMI s/p EDEN to RCA - S/P TNK prior to transfer to [facility] - S/P Prasugrel & ASA load followed by maintenance ASA 81 mg & Prasugrel 10 mg - LVEDP 21 in the [place] - Prior to Cardiac Catheterization, noted to have dual pressor requirement with Epinephrine and Dopamine with transcutaneous pacing for hemodynamically unstable bradycardia History of tobacco use 08/06/2019 Overview (08/06/2019): - 2 PPD smoker since Age 13 - Contemplative/Action Stage - NRT provided - Tobacco Cessation Team Consulted Cervical spinal stenosis 11/09/2018 CARLOTA (obstructive sleep apnea) 08/25/2017 Chronic midline low back pain without sciatica 1 04/10/2016 Encounters Date Type Department Care Team Description 09/06/2023 Ancillary Procedure Radiology at [address] [address] Rosanna Clement MD 08/30/2023 Ancillary Procedure Radiology at [address] [address] Rosanna Clement MD 08/28/2023 2:30 PM EDT Office [place] [phone] Shira Gauthier MD Atherosclerosis of lower extremity with claudication 08/28/2023 1:30 PM EDT Tech [place] [phone] 08/28/2023 1:30 PM EDT Tech [place] [phone] Jenifer Franks Atherosclerosis of lower extremity with claudication 08/28/2023 Travel 08/09/2023 Transcribe Orders eDH Incoming Referrals [phone] Karen Barbosa MD Type 2 diabetes mellitus with diabetic chronic kidney disease, unspecified CKD stage, unspecified whether usp insulin use; Stage 3a chronic kidney disease; Encounter for long-term (current) use of insulin 07/25/2023 12:35 PM EDT Laboratory Appointment Lab [address] [place] [phone] Type 2 diabetes mellitus without complication, without long-term current use of insulin 07/25/2023 11:00 AM EDT Clinical [place] [phone] Antonina Gutierrez, RN Type 2 diabetes mellitus without complication, without long-term current use of insulin 07/25/2023 10:00 AM EDT Office [place] [address] Heather Aguirre APRN Type 2 diabetes mellitus without complication, without long-term current use of insulin (Primary Dx); Hypertriglyceridemia; History of tobacco use 07/25/2023 Travel from Last 3 Months Immunizations Name Administration Dates Next Due Hepatitis B Unspecified Formulation 06/07/2005 Pneumococcal Polysaccharide (Pneumovax 23) 07/14 TD Adult 03/30/2005 Family History Medical History Relation Comments Myocardial Infarction Brother Myocardial Infarction Father Myocardial Infarction Mother Amblyopia Neg Hx Glaucoma Neg Hx Macular Degeneration Neg Hx Retinal Detachment Neg Hx Relation Status Comments Brother Father Mother Social History Tobacco Use Types Packs/Day Years Used Date Smoking Tobacco: Every Day Cigarettes 1 40 Smokeless Tobacco: Never Tobacco Cessation:Ready to Q uit: Not Asked; Counseling Given: Not Answered Alcohol Use Standard Drinks/Week Comments Not Currently 7 (1 standard drink = 0.6 oz pur e alcohol) [facility] Inpatient Questions Answer Date Recorded Does [...] on file Sexual Orientation Not on file Last Filed Vital Signs Vital Sign Reading Time Taken Comments Blood Pressure 108/70 08/28/2023 2:28 PM EDT Pulse 73 08/28/2023 2:28 PM EDT Temperature 36.1 ??C (97 ??F) 07/25/2023 9:48 AM EDT Respiratory Rate 18 07/25/2023 9:48 AM EDT Oxygen Saturation 98% 07/25/2023 9:48 AM EDT Inhaled Oxygen Concentration - - Weight 130.6 kg (288 lb) 08/28/2023 2:28 PM EDT Height 182.9 cm (6') 08/28/2023 2:28 PM EDT Body Mass Index 39.06 08/28/2023 2:28 PM EDT Plan of Treatment Upcoming Encounters Date Type Department Care Team (Late st Contact Info) Description 03/20/2024 10:00 AM EST Office Visit Ophthalmology at [facility] [place] [address] Tania Gates OD [facility] [place] [address] Health Maintenance Due Date Last Done Comments CT Colonography 1966 Colonoscopy 1966 Colorectal Cancer Screening 1966 FIT DNA 1966 FIT 1966 Sigmoidoscopy (10 year) with FIT yearly 1966 Sigmoidoscopy 1966 DM Urine Microalbumin yearly 1976 HIV screen 1984 Hepatitis C Screening 1984 Tdap adult 1985 Hepatitis B vaccine (0-59 yrs) (2) 07/05/20052005 Pneumococcal Vaccine: At-Ris k 5-64yrs (2 of 2 - PCV) 07/15/2007 07/14/2006 Tetanus vaccine 03/30/2015 03/30/2005 Zoster vaccine (1 of 2) 2016 Advance Directive 2021 DM Opthalmology Exam 09/06/2023 09/05/2022, 08/29/2022, 01/26/2022, Additional history exists DM Creatinine yearly 10/06/2023 10/05/2022, 10/04/2022, 12/29/2020, Additional history exists Influenza (Flu) vaccine (1 o f 1 - Influenza standard series) 11/12/2023 DM Hemoglobin A1c 6 month 01/25/20242023, 10/05/2022, 08/06/2019 Covid-19 Vaccine Completed 12/30/2022, 12/10/2021 Procedures Procedure Name Priority Date/Time Associated Diagnosis Comments FILM LIBRARY STORAGE ONLY MR SPINE Routine 09/06/2023 12:00 AM EDT FILM LIBRARY STORAGE ONLY MR WRIST Routine 08/30/2023 12:00 AM EDT TREADMILL - VASCULAR Routine 08/28/2023 1:24 PM EDT Atherosclerosis of lower extremity with claudication LAB SCAN 07/28/2023 12:00 AM EDT HEMOGLOBIN A1C Routine 07/25/2023 12:22 PM EDT Type 2 diabetes mellitus without complication, without long-term current use of insulin HEPATIC FUNCTION PANEL Routine 07/25/2023 12:22 PM EDT Type 2 diabetes mellitus without complication, without long-term current use of insulin BASIC METABOLIC PANEL Routine 10/05/2022 8:43 AM EDT from Last 3 Months or Most Recently Relevant to Health Maintenance Results * Film Library- Storage Only MR Spine (09/06/2023 12:00 AM EDT) Narrative [facility] 10/17/2023 3:43 PM EDT This exam is auto-finalizing. It's purpose is for storage only. Rosanna Clement MD [facility] FILM LIBRARY ORDERABLES Performing Organization Address [facility] de Phone Number [place], [place] * Film Library- Storage Only MR Wrist (08/30/2023 12:00 AM EDT) Narrative [facility] 10/17/2023 3:40 PM EDT This exam is auto-finalizing. It's purpose is for storage only. Rosanna Clement MD [facility] FILM LIBRARY ORDERABLES Performing Organization Address [facility] de Phone Number [place], [place] * Treadmill test - Vascular Lab (08/28/2023 1:24 PM EDT) VB Text Report Department: Vascular Surgery Lab Patient: [id number] ([id number]) CPT: 14818 Referring Physician: SHIRA GAUTHIER ?? Phone: Indications: claudication, ? exercise induced arterial disease Diabetes mellitus: yes Findings: Right ?Pressure ?? DEONTE ??Waveform ?? 1 min ??3 min ??5 min ?? Brachial ?? 105 ? DPA ?112 ? 0.97 ??Triphasic ? [place] [employer]KER ?119 ? 1.03 ??Triphasic ?? 0.95 ?? 0.98 ?? 1.03 ?? Great Toe ??82 ?0.71 ? Left ? Pressure ?? DEONTE ??Waveform ?? 1 min ??3 min ??5 min ?? Brachial ?? 116 ? DPA ?112 ? 0.97 ??Triphasic ? [place] [employer] ?126 ? 1.09 ??Triphasic ?? 1.07 ?? [...] EDT Shira Gauthier MD VASCULAR ORDERABLES VASCUBASE * Scan Doc: Lab (07/28/2023 12:00 AM EDT) Narrative 07/28/2023 12:00 AM EDT Ordered by an unspecified provider. Scanning Provider MEDIA MGR SCAN EXT O RDR/RSLT * (ABNORMAL) Hemoglobin A1c (07/25/2023 12:22 PM EDT) Hemoglobin A1c 7.8(H) 4.3 - 5.6 % [facility] Comment: Reference Range: 4.3 - 5.6% 5.7 - 6.4% - Increased Risk of Developing Diabetes Mellitus >= 6.5% - Consistent with diagnosis of Diabetes Mellitus In the absence of hyperglycemia (i.e. plasma glucose > 200 mg/dL) or classic symptoms of hyperglycemia a repeat measurement of HbA1c should be performed on a separate sample to confirm the diagnosis. Diagnosis and Classification of Diabetes Mellitus, Diabetes Care 2013; 36: Suppl. 1, L47-04 Estimated Average Glucose 177 mg/dL [facility] Blood 07/25/2023 12:2 2 PM EDT 07/25/2023 12:39 PM EDT Narrative Resulting Agency Comment Spec In Lab Heather Aguirre APRN CHEMISTRY ORDERA BLES [facility] [place] [address] * (ABNORMAL) Hepatic Function Panel (07/25/2023 12:22 PM EDT) Pathologist [facility] Protein, Total 7.1 6.1 - 8.0 g/dL [facility] Albumin 4.1 3.2 - 5.2 g/dL [facility] Aspartate Aminotransferase 16 0 - 39 unit/L [facility] Alanine Aminotransferase 21 0 - 55 unit/L [facility] Alkaline Phosphatase 142(H) 40 - 130 unit/L [facility] Bilirubin, Total 0.6 0.2 - 1.3 mg/dL [facility] Bilirubin, Direct 0.2 0.0 - 0.3 mg/dL [facility] Blood 07/25/2023 12:2 2 PM EDT 07/25/2023 12:39 PM EDT Narrative Resulting Agency Comment Spec In Lab Heather Aguirre HOUSE PIPING INSPECTOR CHEMISTRY ORDERA SERGIO [facility] [place] [address] * Basic Metabolic Panel (non-fasting) (10/05/2022 8:43 AM EDT) [facility] Glucose 160 65 - 199 mg/dL [facility] Comment:Diabetes: >=200 mg/d L plus symptoms Blood Urea Nitrogen 18 10 - 20 mg/dL [facility] Creatinine 1.35 0.80 - 1.50 mg/dL [facility] Sodium 137 135 - 145 mmol/L [facility] Potassium 4.2 3.5 - 5.0 mmol/L [facility] Comment: Please note: ??Patients with WBC >100,000 may have falsely elevated Potassium levels. ??For accurate Potassium quantification in these patients send serum separator tube (gold top) for subsequent determinations. ??Contact the Clinical Chemistry Laboratory if there are any questions. Chloride 98 98 - 107 mmol/L [facility] Carbon Dioxide 31 22 - 31 mmol/L [facility] Anion Gap 8 5 - 15 mmol/L [facility] Calcium 9.4 8.5 - 10.5 mg/dL [facility] Est Glomerular Filtration Rate 62 >=60 mL/min/1. 73 m?? [facility] Comment: This patient's estimated GFR was calculated using the 2020 CKD-EPI equation. The estimated GFR can vary from the measured GFR by up to 30% in the absence of rapidly changing kidney function. Assessment of the estimated GFR is not appropriate when creatinine concentrations are rapidly changing. For clinical situations in which a more precise estimate of GFR is necessary, consider alternative methods of GFR estimation such as a 24-hour urine creatinine clearance. Assignment of CKD stage 1-5 for patients with an eGFR near the transition point between stages may be based on clinical assessment of muscle mass and symptoms in addition to eGFR. Blood 10/05/2022 8:43 AM EDT 10/05/2022 8:58 AM EDT Narrative Resulting Agency Comment Spec In Lab Rafy Wilkes MD CHEMISTRY ORDERABLES [facility] [place] [address] from Last 3 Months or Most Recently Relevant to Health Maintenance Advance Directives * Attempt Cardiopulmonary Resuscitation - Inpatient (Latest Code Status on File) Date Activated Date Inactivated Comments 10/04/2022 6:58 PM 10/06/2022 12:54 AM Question Answer Comments Code Status decision made by: Patient * Attempt Cardiopulmonary Resuscitation - Inpatient Date Activated Date Inactivated Comments 10/04/2022 6:12 PM 10/04/2022 6:58 PM Question Answer Comments Code Status decision made by: Patient * Attempt Cardiopulmonary Resuscitation - Inpatient Date Activated Date Inactivated Comments 12/29/2020 10:11 AM 12/29/2020 5:13 PM Question Answer Comments Code Status decision made by: Patient * Full Code Date Activated Date Inactivated Comments 08/06/2019 2:38 AM 08/07/2019 8:22 PM Question Answer Comments Does patient have capacity to make decision: Yes Care Teams Certified Addiction Counselor Relationship Specialty Start Date End Date Karen Barbosa MD [address] [place] [address] PCP - General Family Medicine 10/04/22
--- OUTSIDE RECORDS SUMMARY | 2023-10-24 15:58 | XMS_ITS | Encounter Summary ---
Author Organization [facility] [place] [address] Care Team Providers Care Senior Adults Director Name Role Phone Karen Barbosa MD Primary Care Provider [phone] Encounter Details Date Type Department Care Team (Latest Contact Info) Description 08/28/2023 Travel Social History Tobacco Use Types Packs/Day [...] 10:00 AM EST Office [place] [address] Tania Gates OD [facility] [place] [address] documented as of this encounter Visit Diagnoses Not on filedocumented in this encounter Care Teams Senior Adults Director Relationship Specialty Start Date End Date Karen Barbosa MD [address] [place] [id number] PCP - General Family Medicine 10/04/22 documented as of this encounter
--- OUTSIDE RECORDS SUMMARY | 2023-10-24 15:58 | XMS_ITS | Encounter Summary ---
Author Organization [facility] [place] [address] Care Team Providers Care Director College Name Role Phone Karen Barbosa MD Primary Care Provider [phone] Encounter Details Date Type Department Care Team (Latest Contact Info) Description 04/25/2023 Travel Social History Tobacco Use Types Packs/Day [...] 10:00 AM EST Office [place] [address] Tania Gates OD [facility] [place] [address] documented as of this encounter Visit Diagnoses Not on filedocumented in this encounter Care Teams Director College Relationship Specialty Start Date End Date Karen Barbosa MD [address] [place] [address] PCP - General Family Medicine 10/04/22 documented as of this encounter
--- OUTSIDE RECORDS SUMMARY | 2023-10-24 15:58 | XMS_ITS | Encounter Summary ---
[place] [address] Care Team Providers Care Director Of Labor Relations Name Role Phone Karen Barbosa MD Primary Care Provider [phone] Encounter Details Date Type Department Care Team (Latest Contact Info) Description 07/25/2023 12:35 PM EDT Laboratory Appointment Lab [address] [place] [address] Type 2 diabetes mellitus without complication, without long-term current use of insulin Social History Tobacco Use Types Packs/Day Years Used Date Smoking Tobacco: Every Day Cigarettes 1 40 Smokeless Tobacco: Never Alcohol Use Standard Drinks/Week Comments Not Currently 7 (1 standard drink = 0.6 oz pur e alcohol) [facility] Inpatient Questions Answer Date Recorded [...] Upcoming Encounters Date Type Department Care Team ( Contact Info) Description 03/20/2024 10:00 AM EST [place] [address] Tania Gates, [facility] [place] [address] documented as of this encounter Procedures Procedure Name Priority Date/Time Associated Diagnosis Comments HEMOGLOBIN A1C Routine 07/25/2023 12:22 PM EDT Type 2 diabetes mellitus without complication, without long-term current use of insulin HEPATIC FUNCTION PANEL Routine 07/25/2023 12:22 PM EDT Type 2 diabetes mellitus without complication, without long-term current use of insulin documented in this encounter Results * (ABNORMAL) Hemoglobin A1c (07/25/2023 12:22 PM EDT) Hemoglobin A1c 7.8(H) 4.3 - 5.6 % [facility] Comment: Reference Range: 4.3 - 5.6% [...] Mellitus, Diabetes Care 2013; 36: Suppl. 1, S67-80 Estimated Average Glucose 177 mg/dL [facility] Blood 07/25/2023 12:2 2 PM EDT 07/25/2023 12:39 PM EDT Narrative Resulting Agency Comment Spec In Lab Heather Aguirre [employer]ORATORY TECHNICIAN CHEMISTRY ORDERA BLES [facility] [place] [address] * (ABNORMAL) Hepatic Function Panel (07/25/2023 12:22 PM EDT) Protein, Total 7.1 6.1 - 8.0 g/dL [facility] Albumin 4.1 3.2 - 5.2 g/dL [facility] Aspartate Aminotransferase 16 0 - 39 unit/L [facility] Alanine Aminotransferase 21 0 - 55 unit/L [facility] Alkaline Phosphatase 142(H) 40 - 130 unit/L [facility] Bilirubin, Total 0.6 0.2 - 1.3 mg/dL [facility] Bilirubin, Direct 0.2 0.0 - 0.3 mg/dL [facility] Blood 07/25/2023 12:2 2 PM EDT 07/25/2023 12:39 PM EDT Narrative Resulting Agency Comment Spec In Lab Heather Aguirre E[employer] SCI[employer] LABORATORY TECHNICIAN CHEMISTRY ORDERA BLES [facility] [place] [address] documented in this encounter Visit Diagnoses Diagnosis Type 2 diabetes mellitus without complication, without long-term current use of insulin documented in this encounter Care Teams Director Of Labor Relations Relationship Specialty Start Date End Date Karen Barbosa MD [address] [place] [address] [place] [address] PCP - General Family Medicine 10/04/22 documented as of this encounter
--- OUTSIDE RECORDS SUMMARY | 2023-10-24 15:58 | XMS_ITS | Encounter Summary ---
Author Organization [facility] [place] [address] Care Team Providers Care Tire Fabric Impregnating Range Tender Name Role Phone Karen Barbosa MD Primary Care Provider [phone] Encounter Details Date Type Department Care Team (Late st Contact Info) Description 07/25/2023 10:00 AM EDT Office [place] [phone] Heather Aguirre APRN [facility] [place] [address] Type 2 diabetes mellitus without complication, without long-term current use of insulin (Primary Dx); Hypertriglyceridemia; History of tobacco use Social History Tobacco Use Types Packs/Day Years Used Date Smoking Tobacco: Every Day Cigarettes 1 40 Smokeless Tobacco: Never Tobacco Cessation:Ready to Q uit: Not Asked; Counseling Given: Not Answered Alcohol Use Standard Drinks/Week Comments Not Currently 7 (1 standard drink = 0.6 oz pur e alcohol) [facility] Inpatient Questions Answer Date Recorded Does Anyone [...] Sign Reading Time Taken Comments Blood Pressure 115/79 07/25/2023 9:48 AM EDT Pulse 69 07/25/2023 9:48 AM EDT Temperature 36.1 ??C (97 ??F) 07/25/2023 9:48 AM EDT Respiratory Rate 18 07/25/2023 9:48 AM EDT Oxygen Saturation 98% 07/25/2023 9:48 AM EDT Inhaled Oxygen Concentration - - Weight 134.1 kg (295 lb 9.6 oz) 07/25/2023 9:48 AM EDT Height 184.9 cm (6' 0.8) 07/25/2023 9:48 AM EDT Body Mass Index 39.22 07/25/2023 9:48 AM EDT documented in this encounter Patient Instructions * Patient Instructions* Heather Aguirre APRN - 07/25/2023 10:00 AM EDT Plan: # Diabetes: Lifestyle modifications: Smoking cessation if indicated Dietary modifications: low-fat, low-carbohydrate Weight reduction if overweight or obese Exercise as tolerated Medications: Continue Jardiance 10 mg PO each day Continue Tresiba 160 units SUBQ each evening START Humalog 5 units PLUS correction dose SUBQ prior to each meal Reviewed the importance of taking glucose-lowering medications as prescribed. Reviewed prevention and management of hypoglycemia and when immediate care is indicated. Monitoring: Continuous blood glucose monitoring with the Dexcom G7 A1C% due BMP due Lipid profile due UACR due Blood Glucose Targets: FBG 90-140 mg/dL Pre-meal during daytime 90-150 mg/dL 1-2 hours post-meal < 180 mg/dL A1c < 7% Prevention: Discussed the importance of regular ophthalmology and dental visits, staying up to date on immunizations, and proper foot care. Refer: Diabetes education # Hyperlipidemia: Lifestyle measures: Eat a heart-healthy diet with fruits, vegetables, whole grains, legumes (eg, beans, lentils), nuts,fish and seafood, and poultry Aim for 150 minutes per week of moderate-intensity exercise or 75 minutes of vigorous exercise Eliminate tobacco and moderate alcohol consumption Maintain a healthy weight Optimize management of co-morbid conditions that cardiovascular risk Monitoring: Target triglycerides < 150 mg/dL Lipid profile due Liver function tests # Smoking cessation Follow up in 3 months or sooner if indicated. Thank you for allowing me to participate in your care. Please be in contact for further questions or concerns. MIRTHA Rivera Department of Endocrinology [facility] documented in this encounter Progress Notes * Heather Aguirre APRN - 07/25/2023 10:00 AM EDT Images from the original note were not included. Date of Encounter: 07/25/2023 Name: Samy Patricio Jr. : 1965 PCP: Karen Barbosa MD Samy Patricio Jr. is a 57 y.o. male with the following medical history presenting for a follow up visit regarding DMT2. Past Medical History: Diagnosis Date Asthma Diaz's esophagus Chronic midline low back pain without sciatica 02/08/2017 COPD (chronic obstructive pulmonary disease) Diabetes Gastroesophageal reflux Hyperlipidemia Kidney failure H/O ACUTE KIDNEY INJURY Mental health problem DEPRESSION Myocardial infarction 08/2017 NSTEMI Peptic ulcer disease PEPTIC ULCER DISEASE Post-operative nausea and vomiting [place] [facility] [place] had vomiting after He was last seen by Dr. Lancaster on 04-25-2023 and the following plan of care was established. # Diabetes: further education prior to making insulin adjustments due to unorthodox insulin regimen Monitoring: Dexcom G7 Medications: Jardiance 10 mg PO each day Humalog 0-150 units SUBQ each day Tresiba 160 units SUBQ each evening Refer: Diabetes education Follow up in 3 months. Medications 05/17/23 0908 Medication Sig Taking? metoprolol succinate XL (Toprol-XL) 100 mg ER 24 hr tablet Take 0.5 tablets by mouth daily. torsemide (Demadex) 20 mg Tablet 40 mg daily. empagliflozin (Jardiance) 10 mg Tablet Take 25 mg by mouth daily. OneTouch Verio test strips Strip TEST BLOOD GLUCOSE TWICE A DAY OneTouch Verio Flex meter [facility] [place] BLOOD GLUCOSE TWICE A DAY otafsekyiys-zybeyjaqf-ljbtsedw 100-62.5-25 mcg Disk with Device 1 puff inhaled once a day Lantus Solostar U-100 Insulin pen 80 Units. humaLOG KwikPen 100 unit/mL Insulin Pen 200 Units. insulin needles, disposable, 31 gauge x 3/16 Needle tamsulosin (Flomax) 0.4 mg Capsule Take by mouth. atorvastatin (Lipitor) 80 mg Tablet Take 1 tablet by mouth every evening. pantoprazole EC (Protonix) 40 mg Tablet, Delayed Release (E.C.) Take 1 tablet by mouth 2 times daily. folic acid (Folvite) 1 mg Tablet Take 1 tablet by mouth daily. nicotine (NICODERM CQ) 21 mg/24 hr Patch 24 hr Change 2 patches on the skin daily. Patient not taking: Reported on 04/25/2023 thiamine (Vitamin B1) Take 1 tablet by mouth daily. nitroGLYcerin (NITROSTAT) 0.4 mg Tablet, Sublingual PLACE 1 TABLET UNDER TONGUE EVERY 5 MINUTES DIRECTED aspirin 81 mg Tablet, Delayed Release (E.C.) Take 81 mg by mouth Daily. Past Surgical History: Procedure Laterality Date CATARACT REMOVAL Right 2017 CORONARY ANGIOPLASTY WITH STENT PLACEMENT 08/2017 PRO UPPER GI ENDOSCOPY, BIOPSY 04/26/2011 EGD WITH BIOPSY performed by KIRSTEN DAMON at [facility] END[facility] PRO UPPER GI ENDOSCOPY, BIOPSY N/A 09/27/2018 UPPER GASTROINTESTINAL ENDOSCOPY,WITH BIOPSY SINGLE OR MULTIPLE (WRVU 2.49) performed by Luc Hdz MD at [facility] ENDOSCOPY PRO UPPER GI ENDOSCOPY, BIOPSY N/A 01/26/2021 EGD WITH BIOPSY (WRVU 2.49) performed by Nathaniel Azevedo MD at [facility] ENDOSCOPY ROTATOR CUFF REPAIR Left Allergies Allergen Reactions Venlafaxine Doxycycline Nausea And Vomiting Other [Unclassified Drug] Nausea And Vomiting Had an allergic reaction to an antibiotic but does not know the name Social History Tobacco Use Smoking status: Every Day Packs/day: 1.00 Years: 40.00 Additional pack years: 0.00 Total pack years: 40.00 Types: Cigarettes Smokeless tobacco: Never Vaping Use Vaping Use: Never used Substance Use Topics Alcohol use: Not Currently Alcohol/week: 7.0 - 14.0 standard drinks of alcohol Types: 7 - 14 Shots of liquor per week Drug use: Not Currently Family History Problem Relation Age of Onset Myocardial Infarction Mother 50 Myocardial Infarction Father 50 Myocardial Infarction Brother 40 Glaucoma Neg Hx Macular Degeneration Neg Hx Retinal Detachment Neg Hx Amblyopia Neg Hx Wt & BMI By Encounter Date Flowsheet Row Office [place]/25[place]23 [place] [facility] [place]/17/2023 [place] [facility] Weight 134.1 kg (295 lb 9.6 oz) 1 07/25/2023 0948 134.7 kg (297 lb) 1 05/17/2023 0908 BMI 39.22 1 07/25/2023 0948 40.28 1 05/17/2023 0908 Recent Labs 10/05/22 0104 HA1C 7.4* Lab Results Component Value Date NA 137 10/05/2022 K 4.2 10/05/2022 CL 98 10/05/2022 CO2 31 10/05/2022 BUN 18 10/05/2022 CREATININE 1.35 10/05/2022 GLUCOSE 160 10/05/2022 GLUCFASTING 188 (H) 10/05/2022 CALCIUM 9.4 10/05/2022 ESTGFR 62 10/05/2022 Lipid Panel Lab Results Component Value Date CHLPL 133 10/05/2022 HDL 32 10/05/2022 CHOLHDL 4.2 10/05/2022 TRIG 355 10/05/2022 LDLCHOL 33 08/06/2019 LDLDIRECT 61 10/05/2022 No results found for: MICROALKEY, [id number] Outside Records: Date Order Result Cholesterol 146 Triglycerides 382 HDL 31 LDL 39 Urine microalbumin, ratio 10.7, 17.3 AST 21 ALT 36 Alkaline phosphate 136 BUN 21 Cr 1.9 eGFR 46 Continuous Glucose Monitoring: Model: Dexcom G7 Duration of need: lifetime Data sharing: yes Interpretation: He is consistent with usage at 99.9%. His average glucose is 170 mg/dL with a predicted A1C of 7.4% and a variability of 28.3%. He is in range 59% of the time and is above his target range 40% of the time. He is having some episodes of low blood glucose. There is consistent post-prandial elevations that are more pronounced after his evening meal. 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, weight loss, denies fatigue Endocrine: polyuria, polydipsia, denies polyphagia Eyes: new onset white light obstructing vision on the right side Cardiovascular: chronic angina Respiratory: chronic shortness of breath, denies wheezing or cough Gastrointestinal: it comes out, decreased appetite Genitourinary: recent prostatitis Integumentary: burning to bilateral hips that radiates to the knees from claudication, denies diabetic foot ulcers Physical Exam: Visit Vitals BP 115/79 (BP Location (NBP): Left arm, Patient Position: Sitting) Pulse 69 Temp 36.1 ??C (97 ??F) (Temporal) Resp 18 Ht 184.9 cm (6' 0.8) Wt 134.1 kg (295 lb 9.6 oz) SpO2 98% BMI 39.22 kg/m?? General appearance: well hydrated, well nourished, no acute distress Neurological: alert and oriented to person, place, time, and situation Respiratory: normal effort, symmetrical chest expansion Cardiovascular: trace edema to bilateral feet, diminished right dorsalis pedis pulse, no extremity cyanosis Integumentary: no evidence of ulcerations, toenails are appropriate length, observable onychomycosis, decreased protective sensation Left: bulging veins on dorsum, 0.5 mm x 0.5 mm abrasion to medial 4th toe Left foot Great toe Decreased 1st MT Decreased 3rd MT Decreased 5th MT Normal Heel Decreased Pedal pulse 2+ Right foot Great toe Decreased 1st MT Decreased 3rd MT Normal 5th MT Decreased Heel Decreased Pedal pulse 1+ Assessment and Plan: He lives in [place] with his and mother. He has 2 children and 5 grandchildren. He reports that he does the best he can. He is not eating regular meals due to decreased appetitebut eats when he notices that his sugars are trending down (which forces him to eat). He admits that he often forgets to take insulin prior to meals but takes it after if he remembers. He estimates his insulin dose but is having severe hypoglycemia to 30 mg/dL. For instance, he gave 25 units for 250 mg/dL and 40 units for 300 mg/dL. He is not comfortable with carbohydrate counting, therefore plan to utilize a standard dose of Humalog with conservative sliding scale for correction. Anticipate that he is going to require more bolus insulin but plan to slowly titrate due to the risk for hypog lycemic events and lack of consistent dosing at the time (needed to be rescued twice in the last year). He takes 160 units of Tresiba in the evening but sometimes decreases the dose to 120 mg/dL (advised against this). He is curious about the harmful effects of extreme swings in blood glucose because his line is never straight across unless he is fasting. He is scheduled for diabetes education this afternoon and was advised to review carbohydrate counting and safe insulin administration. He would like to continue taking Jardiance for the cardiovascular benefit despite risk for infection which may have contributed to his prostatitis of unknown origin. Reinforced the importance of genital hygiene but continue to re- evaluate the risk versus benefit of Jardiance in his case. # Diabetes: His blood glucose control is sub-optimal with a recent A1C of 7.4%. Lifestyle modifications: Smoking cessation if indicated Dietary modifications: low-fat, low-carbohydrate Weight reduction if overweight or obese Exercise as tolerated Medications: Continue Jardiance per patient request 10 mg PO each day Continue Tresiba 160 units SUBQ each evening START Humalog 5 units PLUS correction dose SUBQ prior to each meal CF 1:20 for > 140 mg/dL Printed scale provided Reviewed the importance of taking glucose-lowering medications as prescribed. Reviewed prevention and management of hypoglycemia and when immediate care is indicated. Monitoring: Continuous blood glucose monitoring with the Dexcom G7 A1C% due BMP due Lipid profile due UACR due Blood Glucose Targets: FBG 90-140 mg/dL Pre-meal during daytime 90-150 mg/dL 1-2 hours post-meal < 180 mg/dL A1c < 7% Prevention: Discussed the importance of regular ophthalmology and dental visits, staying up to date on immunizations, and proper foot care. Refer: Diabetes education # Hyperlipidemia: His 10-year cardiovascular risk is 3.9% and lifetime risk is 20.6%. His triglycerides were 382 mg/dL in . He reports a history of abnormal liver function tests, therefore recheck prior to initiating treatment. Lifestyle measures: Eat a heart-healthy diet with fruits, vegetables, whole grains, legumes (eg, beans, lentils), nuts,fish and seafood, and poultry Aim for 150 minutes per week of moderate-intensity exercise or 75 minutes of vigorous exercise Eliminate tobacco and moderate alcohol consumption Maintain a healthy weight Optimize management of co-morbid conditions that cardiovascular risk Monitoring: Target triglycerides < 150 mg/dL Lipid profile due Liver function tests # Smoking cessation: Quit date is set for Monday on 07-31-2023 Follow up in 3 months or sooner if indicated. Thank you for allowing me to participate in your care. Please be in contact for further questions or concerns. MIRTHA Rivera Department of Endocrinology [facility] have reviewed the plan outlined above with the patient and the patient has verbalized understanding. The duration of this encounter was 60 minutes, not including the time spent reviewing records and reports from the continuous glucose monitor. documented in this encounter Plan of Treatment Upcoming Encounters Date Type Department Care Team (Late st Contact Info) Description 03/20/2024 10:00 AM EST [place] [address] Tania Gates OD [facility] [place] [address] documented as of this encounter Results * (ABNORMAL) Hepatic Function Panel (07/25/2023 12:22 PM EDT) Protein, Total 7.1 6.1 - 8.0 g/dL [facility] Albumin 4.1 3.2 - 5.2 g/dL [facility] Aspartate Aminotransferase 16 0 - 39 unit/L [facility] Alanine Aminotransferase 21 0 - 55 unit/L [facility] Alkaline Phosphatase 142(H) 40 - 130 unit/L [facility] Bilirubin, Total 0.6 0.2 - 1.3 mg/dL [facility] Bilirubin, Direct 0.2 0.0 - 0.3 mg/dL [facility] Blood 07/25/2023 12:2 2 PM EDT 07/25/2023 12:39 PM EDT Narrative Resulting Agency Comment Spec In Lab Heather Cardona Salgueiro CONCRETE HOPPER OPERATOR CHEMISTRY ORDERA BLES [facility] [place] [place] [address] * (ABNORMAL) Hemoglobin A1c (07/25/2023 12:22 PM EDT) Hemoglobin A1c 7.8(H) 4.3 - 5.6 % [facility] Comment: Reference Range: 4.3 - [...] Mellitus, Diabetes Care 2013; 36: Suppl. 1, E63-16 Estimated Average Glucose 177 mg/dL [facility] Blood 07/25/2023 12:2 2 PM EDT 07/25/2023 12:39 PM EDT Narrative Resulting Agency Comment Spec In Lab Heather Blancogueiro CONCRETE HOPPER OPERATOR CHEMISTRY [employer] [facility] [place] [address] documented in this encounter Visit Diagnoses Diagnosis Type 2 diabetes mellitus without complication, without long-term current use of insulin- Primary Hypertriglyceridemia Pure hyperglyceridemia History of tobacco use Personal history of tobacco use, presenting hazards to health documented in this encounter Care Teams Tire Fabric Impregnating Range Tender Relationship Specialty Start Date End Date Karen Barbosa MD [address] [place] [address] PCP - General Family Medicine 10/04/22 documented as of this encounter
--- OUTSIDE RECORDS SUMMARY | 2023-10-24 15:58 | XMS_ITS | Encounter Summary ---
[place] [address] Care Team Providers Care Maintenance Operator Name Role Phone Karen Barbosa MD Primary Care Provider Encounter Details Date Type Department Care Team (Late st Contact Info) Description 08/28/2023 1:30 PM EDT Tech Visit [place] [address] Social History Tobacco Use Types Packs/Day Years Used Date Smoking Tobacco: Every Day Cigarettes 1 40 Smokeless Tobacco: Never Alcohol Use Standard Drinks/Week Comments Not Currently 7 (1 standard drink = 0.6 oz pur e alcohol) [facility] Inpatient Questions Answer Date Recorded Does Anyone [...] 10:00 AM EST Office [place] [address] Tania Gates OD [facility] [place] [address] documented as of this encounter Visit Diagnoses Not on filedocumented in this encounter Care Teams Maintenance Operator Relationship Specialty Start Date End Date Karen Barbosa MD [address] [address] PCP - General Family Medicine 10/04/22 documented as of this encounter
--- OUTSIDE RECORDS SUMMARY | 2023-10-24 15:58 | XMS_ITS | Encounter Summary ---
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, unspecified laterality, with unspecified presence of clinical manifestation Procedures DEONTE, legs, multiple levels Anamaria Isaacs, METAL HARDENER [facility] [place] [address] [facility] [address] [place] [address] Referral ID Status Reason Start Date Expiration Date V isits Requested Visits Authorized [id number] Closed Specialty Service Requested 03/22/2023 03/21/2024 1 1 Encounter Details Date Type Department Care Team (Latest Contact Info) Description 05/17/2023 8:30 AM [facility] [place] [address] Violet Almonte, RVT Atherosclerosis of big lagoon artery of lower extremity, unspecified laterality, with unspecified presence of clinical manifestation Social History Tobacco Use Types Packs/Day Years [...] 10:00 AM EST Office Visit Ophthalmology at [facility] [place] [address] Tania Gates OD [facility] [place] [address] documented as of this encounter Procedures Procedure Name Priority Date/Time Associated Diagnosis Comments DEONTE, LEGS, MULTIPLE LEVELS Routine 05/17/2023 7:48 AM EST Atherosclerosis of big lagoon artery of lower extremity, unspecified laterality, with unspecified presence of clinical manifestation documented in this encounter Results * DEONTE, legs, multiple levels (05/17/2023 7:48 AM EST) VB Text Report Department: Vascular Surgery Lab Patient: [id number] (BEL PATRICIO) CPT: 73739 Referring Physician: ANAMARIA ISAACS ?? Phone: Indications: Bilateral LE pain/ claudication, right greater than left ? change in ABIs Diabetes mellitus: Yes Findings: Right ?Pressure (mm Hg) ?? DEONTE ??Waveform ?TBI ?? Brachial Artery ?105 ? Dorsalis Pedis (Ankle) Artery ?104 ? 0.99 ??Triphasic ? Posterior Tibial (Ankle) Artery ??113 ? 1.08 ??Triphasic ? Great Toe ?90 ? 0.86 ?? Left ? Pressure (mm Hg) ?? DEONTE ??Waveform ?TBI ?? Brachial Artery ?99 ? Dorsalis Pedis (Ankle) Artery ?104 ? 0.99 ??Triphasic ? Posterior Tibial (Ankle) Artery ??115 ? 1.10 ??Triphasic ? Great Toe ?79 ? 0.75 ?? Interpretation: RIGHT: No significant lower extremity arterial occlusive disease identified at rest. Normal ankle/brachial pressure ratios and ankle Doppler waveforms. No significant change compared to previous exam. LEFT: No significant lower extremity arterial occlusive disease identified at rest. Normal ankle/brachial pressure ratios and ankle Doppler waveforms. No significant change compared to previous exam. Previous ABIs with change from previous value: Date ?RIGHT DP ?? RIGHT PT ?? RT GR TOE ??RT Sec TOE ??1.07 ? 1.09 ? 0.74 ? ---- Current ? 0.99(-.08) 1.08(-.01) 0.86(+.12) ---- Date ?LEFT DP ?LEFT PT ?LT GR TOE LT Sec TOE ??1.03 ? 1.12 ? 0.76 ? ---- Current ? 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
--- OUTSIDE RECORDS SUMMARY | 2023-10-24 15:58 | XMS_ITS | Encounter Summary ---
[place] [address] Care Team Providers Care Painter Tumbling Barrel Name Role Phone Karen Barbosa MD Primary Care Provider Encounter Details Date Type Department Care Team (Late st Contact Info) Description 08/30/2023 Ancillary Procedure Radiology at [facility] [address] [place] [id number] Rosanna Clement MD [address] [place] [address] Social History Tobacco Use Types Packs/Day Years [...] 10:00 AM EST Office Visit [facility]hthal[facility] [place] [address] Tania Gates OD [facility] [place] [address] documented as of this encounter Procedures Procedure Name Priority Date/Time Associated Diagnosis Comments FILM LIBRARY STORAGE ONLY MR WRIST Routine 08/30/2023 12:00 AM EDT documented in this encounter Results * Film Library- Storage Only MR Wrist (08/30/2023 12:00 AM EDT) Narrative [facility] - 10/17/2023 3:40 PM EDT This exam is auto-finalizing. It's purpose is for storage only. Rosanna Clement MD IMG FILM LIBRARY ORDERABLES Performing Organization Address City/State/[facility] Co de Phone Number [place], [place] documented in this encounter Visit Diagnoses Not on filedocumented in this encounter Care Teams Painter Tumbling Barrel Relationship Specialty Start Date End Date Karen Barbosa MD [address] [place] [id number] PCP - General Family Medicine 10/04/22 documented as of this encounter
--- OUTSIDE RECORDS SUMMARY | 2023-10-24 15:58 | XMS_ITS | Encounter Summary ---
[place] [address] Care Team Providers Care Jewel Hole Cornerer Name Role Phone Karen Barbosa MD Primary Care Provider Reason for Referral * Diagnostic Test (Routine) - Closed Specialty Diagnoses / Procedures Referred By Keith sanchez Referred To Contact Diagnoses Atherosclerosis of lower extremity with claudication Procedures Treadmill test - Vascular Lab Shira Gauthier MD [facility] [place] [address] [facility] [address] [place] [phone] Referral ID Status Reason Start Date Expiration Date V isits Requested Visits Authorized [id number] Closed Specialty Service Requested 05/17/2023 05/16/2024 1 1 Reason for Visit * Consultation (Routine) - Authorized Specialty Diagnoses / Procedures Referred By Keith sanchez Referred To Contact Vascular Surgery Diagnoses Peripheral vascular disease, unspecified ROUTINE, /KOJO, Zarina Baldwin MD [facility] [address] [place] [address] [facility] [address] [place] [phone] Referral ID Status Reason Start Date Expiration Date Visits Requested Visits Authorized [id number] Authorized Consult, Test & Treat PCP Updated and/or Approved 03/21/2023 03/20/2024 6 6 Encounter Details Date Type Department Care Team (Latest Contact Info) Description 05/17/2023 9:00 AM EST Office Visit [place] [address] Shira Gauthier MD [facility] [place] [address] Atherosclerosis of lower extremity with claudication Social [...] Sign Reading Time Taken Comments Blood Pressure 98/66 05/17/2023 9:08 AM EST Pulse 97 05/17/2023 9:08 AM EST Temperature - - Respiratory Rate - - Oxygen Saturation - - Inhaled Oxygen Concentration - - Weight 134.7 kg (297 lb) 05/17/2023 9:08 AM EST Height 182.9 cm (6') 05/17/2023 9:08 AM EST Body Mass Index 40.28 05/17/2023 9:08 AM EST documented in this encounter Progress Notes * Shira Gauthier MD - 05/17/2023 9:00 AM EST Vascular Surgery Clinic Visit Note Reason for visit: PAD Prior vascular history: none Interval history: 57-year-old male who was seen 1 year ago in our clinic for peripheral arterial disease. At that point his ABIs were essentially normal. He was found to have bilateral hypogastric artery stenosis and symptoms of impotence and buttock claudication consistent with hypogastric hypoperfusion. He is an active smoker. He is on aspirin and statin. He relates that over the last months, his right buttock symptoms have now become more pronounced and involve the thigh and hip region when he walks. He does not have any pains when lying down or sleeping and his pain always resolves after stopping walking. He denies any ischemic rest pain or tissue loss. Has not had any arterial interventions. 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 Delayed gastric emptying Dyspepsia Gastroesophageal reflux disease without esophagitis Overview Note: - Complicated by known Diaz's Esophagus - Followed closely as OPT with EGD pending - Continued on PPI while inpatient Type 2 diabetes mellitus without complication, without long-term current use of insulin Overview Note: - Hgb A1c of 6.3% on admission, reflecting improved control - Continued on Sensitive ISS while inpatient Uncomplicated alcohol dependence Overview Note: - Patient reports drinking 6 drinks/day - No hx of complicated withdrawals - Initiated on CIWA Protocol on 08/07/19, as well as Thiamine/Folic Acid supplementation. Chronic obstructive pulmonary disease ST elevation myocardial infarction involving right coronary artery Overview Note: Mr. Bel Patricio is a 53 year male is a PMHx of CAD (s/p NSTEMI 08/2017 s/p EDEN to RCA and LCx), DM, HTN, HLD, Diaz's esophagus, chronic back pain, and alcohol and tobacco use who developed persistent chest pain and syncope found to have an inferior STEMI. - Inferior STEMI s/p EDEN to RCA - S/P TNK prior to transfer to [facility] - S/P Prasugrel & ASA load followed by maintenance ASA 81 mg & Prasugrel 10 mg - LVEDP 21 in the [employer] - Prior to Cardiac Catheterization, noted to have dual pressor requirement with Epinephrine and Dopamine with transcutaneous pacing for hemodynamically unstable bradycardia History of tobacco use Overview Note: - 2 PPD smoker since Age 13 - Contemplative/Action Stage - NRT provided - Tobacco Cessation Team Consulted Cervical spinal stenosis CARLOTA (obstructive sleep apnea) Chronic midline low back pain without sciatica Medications: Current Outpatient Medications: metoprolol succinate XL (Toprol-XL) 100 mg ER 24 hr tablet, Take 0.5 tablets by mouth daily., Disp:, Rfl: torsemide (Demadex) 20 mg Tablet, 40 mg daily., Disp: , Rfl: empagliflozin (Jardiance) 10 mg Tablet, Take 25 mg by mouth daily., Disp: , Rfl: OneTouch Verio test strips Strip, TEST BLOOD GLUCOSE TWICE A DAY, Disp: , Rfl: OneTouch Verio Flex meter Mis, TEST BLOOD GLUCOSE TWICE A DAY, Disp: , Rfl: wybndlgxdum-poemhtlec-ejyllfnq 100-62.5-25 mcg Disk with Device, 1 puff inhaled once a day, Disp: ,Rfl: Lantus Solostar U-100 Insulin pen, 80 Units., Disp: , Rfl: humaLOG KwikPen 100 unit/mL Insulin Pen, 200 Units., Disp: , Rfl: insulin needles, disposable, 31 gauge x 3/16 Needle, , Disp: , Rfl: tamsulosin (Flomax) 0.4 mg Capsule, Take by mouth., Disp: , Rfl: atorvastatin (Lipitor) 80 mg Tablet, Take 1 tablet by mouth every evening., Disp: 90 tablet, Rfl: 3 pantoprazole EC (Protonix) 40 mg Tablet, Delayed Release (E.C.), Take 1 tablet by mouth 2 times daily., Disp: 90 tablet, Rfl: 3 folic acid (Folvite) 1 mg Tablet, Take 1 tablet by mouth daily., Disp: 90 tablet, Rfl: 3 nicotine (NICODERM CQ) 21 mg/24 hr Patch 24 hr, Change 2 patches on the skin daily. (Patient not taking: Reported on 04/25/2023), Disp: 28 patch, Rfl: 0 thiamine (Vitamin B1), Take 1 tablet by mouth daily., Disp: 30 tablet, Rfl: 3 nitroGLYcerin (NITROSTAT) 0.4 mg Tablet, Sublingual, PLACE 1 TABLET UNDER TONGUE EVERY 5 MINUTES ASDIRECTED, Disp: , Rfl: 3 aspirin 81 mg Tablet, Delayed Release (E.C.), Take 81 mg by mouth Daily., Disp: , Rfl: Patient Medical, Surgical, and Social History updated and reviewed in eD. Physical Exam: Temp: -- Heart Rate: [97] Resp: -- BP: (98)/(66) SpO2: -- Heart Rate from SpO2: -- Estimated body mass index is 40.28 kg/m?? as calculated from the following: Height as of this encounter: 182.9 cm (6'). Weight as of this encounter: 134.7 kg (297 lb). General: NAD, appears well Neuro: Alert and oriented, motor sensory grossly intact in all extremities, CN 2-12 normal Ear, Nose, Throat: No masses or lesions Skin: No lesions or abnormal markings Lungs: CTA Heart: RRR Abd - Soft, NT, ND Musculoskeletal- full ROM upper and lower extremities Psych- alert oriented X3 Extremity - Blades, warm, no ulceration, brisk capillary refill, no edema Vascular: Palpable bilateral radial, carotid, femoral, and pedal pulses. No carotid bruits. No appreciable popliteal aneurysms. Studies: Images personally reviewed by myself today. ABIs today are essentially normal at rest. Assessment/Plan: 57-year-old male smoker with known atherosclerosis of the hypogastric arteries. He appears to have worsened symptoms in the right hip now involving his thigh. I recommend he undergo treadmill ABIs toascertain whether there is any hypoperfusion under exercise. Will return to clinic in the short interim with that test. In the meantime he should continue antiplatelet and statin therapy and I urged him to quit smoking. Shira Gauthier MD, MS Section of Vascular Surgery documented in this encounter Plan of Treatment Upcoming Encounters Date Type Department Care Team (Late st Contact Info) Description 03/20/2024 10:00 AM EST Office Visit [place] [address] Tania Gates, [facility] [place] [address] documented as of this encounter Results * Treadmill test - Vascular Lab (08/28/2023 1:24 PM EDT) VB Text Report Department: Vascular Surgery Lab Patient: [id number] (MARIA TERESABEL VILLEGAS) CPT: 92134 Referring Physician: SHIRA GAUTHIER ?? Phone: Indications: claudication, ? exercise induced arterial disease Diabetes mellitus: yes Findings: Right ?Pressure ?? DEONTE ??Waveform ?? 1 min ??3 min ??5 min ?? Brachial ?? 105 ? DPA ?112 ? 0.97 ??Triphasic ? ELECTRONIC COMPONENT PROCESSOR ?119 ? 1.03 ??Triphasic ?? 0.95 ?? 0.98 ?? 1.03 ?? Great Toe ??82 ?0.71 ? Left ? Pressure ?? DEONTE ??Waveform ?? 1 min ??3 min ??5 min ?? Brachial ?? 116 ? DPA ?112 ? 0.97 ??Triphasic ? ELECTRONIC COMPONENT PROCESSOR ?126 ? 1.09 ??Triphasic ?? 1.07 ?? [...] claudication documented in this encounter Care Teams Jewel Hole Cornerer Relationship Specialty Start Date End Date Karen Barbosa MD [address] [place] [address] [place] [address] PCP - General Family Medicine 10/04/22 documented as of this encounter
--- OUTSIDE RECORDS SUMMARY | 2023-10-24 15:58 | XMS_ITS | Encounter Summary ---
[place] [address] Care Team Providers Care Tobacco Grader Name Role Phone Karen Barbosa MD Primary Care Provider Encounter Details Date Type Department Care Team (Late st Contact Info) Description 09/06/2023 Ancillary Procedure Radiology at [facility] [address] [place] [id number] Rosanna Clement MD [address] [place] [address] Social History Tobacco Use Types Packs/Day Years [...] 10:00 AM EST Office Visit [facility] at [facility] [place] [address] [facility] [address] documented as of this encounter Procedures Procedure Name Priority Date/Time Associated Diagnosis Comments FILM LIBRARY STORAGE ONLY MR SPINE Routine 09/06/2023 12:00 AM EDT documented in this encounter Results * Film Library- Storage Only MR Spine (09/06/2023 12:00 AM EDT) Narrative [facility] [place] - 10/17/2023 3:43 PM EDT This exam is auto-finalizing. It's purpose is for storage only. Rosanna Clement MD IMG FILM LIBRARY ORDERABLES Performing Organization Address City/State/[facility] Co de Phone Number [place], [place] documented in this encounter Visit Diagnoses Not on filedocumented in this encounter Care Teams Tobacco Grader Relationship Specialty Start Date End Date Karen Barbosa MD [address] [place] [id number] PCP - General Family Medicine 10/04/22 documented as of this encounter
--- OUTSIDE RECORDS SUMMARY | 2023-10-24 15:58 | XMS_ITS | Encounter Summary ---
Author Organization [facility] [place] [address] Care Team Providers Care Legal Nurse Consultant Name Role Phone Karen Barbosa MD Primary Care Provider [phone] Encounter Details Date Type Department Care Team (Latest Contact Info) Description 03/09/2023 Travel Social History Tobacco Use Types Packs/Day [...] 10:00 AM EST Office [place] [address] Tania Gates OD [facility] [place] [address] documented as of this encounter Visit Diagnoses Not on filedocumented in this encounter Care Teams Legal Nurse Consultant Relationship Specialty Start Date End Date Karen Barbosa MD [address] [place] [id number] PCP - General Family Medicine 10/04/22 documented as of this encounter
--- OUTSIDE RECORDS SUMMARY | 2023-10-24 15:58 | XMS_ITS | Encounter Summary ---
[place] [address] Care Team Providers Care Manager Agency Name Role Phone Karen Barbosa MD Primary Care Provider [phone] Reason for Referral * Consultation (Routine) - Authorized Specialty Diagnoses / Procedures Referred By Contac t Referred To Contact Vascular Surgery Diagnoses Peripheral vascular disease, unspecified ROUTINE, /KOJO, DEONTE Zarina Dinh MD [facility] [address] [place] [address] [facility] [address] [place] [address] Referral ID Status Reason Start Date Expiration Date Visits Requested Visits Authorized [id number] Authorized Consult, Test & Treat PCP Updated and/or Approved 03/21/2023 03/20/2024 6 6 Encounter Details Date Type Department Care Team (Late st Contact Info) Description 03/21/2023 Transcribe Orders eDH Incoming Referrals [phone] Zarina Dinh MD [facility] [address] [place] [address] Peripheral vascular disease, unspecified Social History Tobacco Use Types Packs/Day Years Used Date Smoking Tobacco: Every Day Cigarettes 1 40 Smokeless Tobacco: Never Alcohol Use Standard Drinks/Week Comments Not Currently 7 (1 standard drink = 0.6 oz pur e alcohol) [facility] Inpatient Questions Answer Date Recorded Does Anyone [...] 10:00 AM EST [place] [address] Tania Gates OD [facility] [place] [address] Scheduled Referrals Name Type Priority Associated Diagnoses Orde r Schedule Referral to Vascular Surgery Outpatient Referral Routine Peripheral vascular disease, unspecified Ordered: 03/21/2023 documented as of this encounter Visit Diagnoses Diagnosis Peripheral vascular disease, unspecified documented in this encounter Care Teams Manager Agency Relationship Specialty Start Date End Date Karen Barbosa MD [address] [place] [address] PCP - General Family Medicine 10/04/22 documented as of this encounter
--- OUTSIDE RECORDS SUMMARY | 2023-10-24 15:58 | XMS_ITS | Encounter Summary ---
[place] [address] Care Team Providers Care Boarding House Cook Name Role Phone Karen Barbosa MD Primary Care Provider Reason for Referral * Diagnostic Test (Routine) - Closed Specialty Diagnoses / Procedures Referred By Contac t Referred To Contact Diagnoses Atherosclerosis of [place] artery of lower extremity, unspecified laterality, with unspecified presence of clinical manifestation Procedures DEONTE, legs, multiple levels Anamaria Isaacs APRN [facility] [place] [address] [facility] Vascular Lab [address] [place] [address] Referral ID Status Reason Start Date Expiration Date V isits Requested Visits Authorized [id number] Closed Specialty Service Requested 03/22/2023 03/21/2024 1 1 Encounter Details Date Type Department Care Team (Late st Contact Info) Description 03/22/2023 Orders Only [place] [address] Anamaria Isaacs APRN [facility] [place] [address] Atherosclerosis of [place] artery of lower extremity, unspecified laterality, with unspecified presence of clinical manifestation Social History Tobacco Use Types Packs/Day Years Used Date Smoking Tobacco: Every Day Cigarettes 1 40 Smokeless Tobacco: Never Alcohol Use Standard Drinks/Week Comments Not Currently 7 (1 standard drink = 0.6 oz pur e alcohol) [facility] Inpatient Questions Answer Date Recorded [...] 10:00 AM EST Office [place] [address] Tania Gates OD [facility] [place] [address] documented as of this encounter Results * DEONTE, legs, multiple levels (05/17/2023 7:48 AM EST) VB Text Report Department: Vascular Surgery Lab Patient: [id number] (BEL PATRICIO) CPT: 63426 Referring Physician: ANAMARIA ISAACS ?? Phone: Indications: [...] Isaacs APRN VASCULAR ORDERABLES Performing Organization Address City/State/[facility] Co de Phone Number [facility] documented in this encounter Visit Diagnoses Diagnosis Atherosclerosis of [place] artery of lower extremity, unspecified laterality, with unspecified presence of clinical manifestation documented in this encounter Care Teams Boarding House Cook Relationship Specialty Start Date End Date Karen Barbosa MD [address] [place] [address] PCP - General Family Medicine 10/04/22 documented as of this encounter
--- OUTSIDE RECORDS SUMMARY | 2023-10-24 15:58 | XMS_ITS | Encounter Summary ---
[place] [address] Care Team Providers Care Curriculum Supervisor Name Role Phone Karen Barbosa MD Primary Care Provider Reason for Referral * Consultation (Routine) - Closed Specialty Diagnoses / Procedures Referred By Contac t Referred To Contact Diagnoses Type 2 diabetes mellitus with ESRD (end-stage renal disease) Jeovanny Lancaster MD [facility] [place] [address] Antonina Gutierrez, courtesy car driver ID Status Reason Start Date Expiration Date V isits Requested Visits Authorized [id number] Closed Consult, Test & Treat 04/25/2023 04/24/2024 1 1 Reason for Visit * Consultation (Routine) - Authorized Specialty Diagnoses / Procedures Referred By Contac t Referred To Contact Endocrinology Diagnoses Type 2 diabetes mellitus without complications Type 2 diabetes mellitus with diabetic chronic kidney disease Chronic kidney disease, stage 3a MCFP (current) use of insulin Kaern Barbosa MD [address] [place] [address] [facility] End[facility] [address] [place] [address] Referral ID Status Reason Start Date Expiration Date Visits Requested Visits Authorized [id number] Authorized Consult, Test & Treat PCP Updated and/or Approved 3 03/01/2024 6 6 Encounter Details Date Type Department Care Team (Latest Contact Info) Description 04/25/2023 9:00 AM EST Office [place] [address] Jeovanny Lancaster MD Type 2 diabetes mellitus with ESRD (end-stage renal disease); Cigar smoker; Mixed hyperlipidemia Social History Tobacco Use Types Packs/Day Years Used Date Smoking Tobacco: Every Day Cigarettes 1 40 Smokeless Tobacco: Never Alcohol Use Standard Drinks/Week Comments Not Currently 7 (1 standard drink = 0.6 oz pur e alcohol) [facility] Inpatient Questions Answer Date Recorded Does [...] Sign Reading Time Taken Comments Blood Pressure 103/66 04/25/2023 8:25 AM EST Pulse 69 04/25/2023 8:25 AM EST Temperature 35.9 ??C (96.6 ??F) 04/25/2023 8:25 AM ES T Respiratory Rate - - Oxygen Saturation 96% 04/25/2023 8:25 AM EST Inhaled Oxygen Concentration - - Weight 135.2 kg (298 lb) 04/25/2023 8:25 AM EST Height 182.9 cm (6') 04/25/2023 8:25 AM EST Body Mass Index 40.42 04/25/2023 8:25 AM EST documented in this encounter Progress Notes * Jeovanny Lancaster MD - 04/25/2023 9:00 AM EST DIABETES CONSULT Referred by Dr. Karen Barbosa MD [address] [place] [address] Chief Complaint: Type 2 Diabetes- Insulin requiring w/ multiple complications I have reviewed the patient's chart incl. Problem List, Meds, Allergies, Exam & Clinical Notes, R.O.S. and only the pertinent positives related to their diabetes are noted below: HPI: Mr. Patricio is a very Pleasant 57 y.o male, active smoker, with long-standing T2DM and multiple establish vasculopathies, referred to review diabetes control. In terms of his diabetes he reports being diagnosed approximately 10+ years ago. He was initially treated with metformin but has been on insulin over the past 2 years. Unfortunately he has developed multiple diabetes related complications especially in combination with the tobacco use affecting his vasculature. He has actually made aggressive efforts at trying to improve his diabetes by modifying his dietary intake and making frequent insulin dose adjustments. His A1c control has actually been quite reasonable. In our records he had an A1c of 6.3% 3 years ago, 7.4% 6 months ago and reports an outside A1c 2 days ago at [facility] of 7.4%. However I am afraid he may be balancing some marked hyperglycemia with periods of hypoglycemia to achieve this A1c. His insulin dosing is also quite variable and thus we will need to understand this in more detail to be able to guide any recommended therapy changes. Current Diabetes-related Rx: Tresiba (insulin degludec) 160 units q. evening, however he will sometimes make daily changes in his basal insulin dose. In addition he uses Humalog U200 but reports widely variable dosing taking 0 units some day and up to 150 units on other days. Empagliflozin 10 mg orally daily Other diabetes related meds would include: atorvastatin 80 mg daily aspirin 81 mg daily Metoprolol ER 100 mg Current Outpatient Medications on File Prior to Visit Medication Sig Dispense Refill metoprolol succinate XL (Toprol-XL) 100 mg ER 24 hr tablet Take 0.5 tablets by mouth daily. torsemide (Demadex) 20 mg Tablet 60 mg daily. empagliflozin (Jardiance) 10 mg Tablet Take 25 mg by mouth daily. OneTouch Verio test strips Strip TEST BLOOD GLUCOSE TWICE A DAY OneTouch Verio Flex meter Misc TEST BLOOD GLUCOSE TWICE A DAY ofdbbfoctjs-pgpitypkt-ogojjodu 100-62.5-25 mcg Disk with Device 1 puff inhaled once a day Lantus Solostar U-100 Insulin pen 80 Units. humaLOG KwikPen 100 unit/mL Insulin Pen 200 Units. insulin needles, disposable, 31 gauge x 3/16 Needle tamsulosin (Flomax) 0.4 mg Capsule Take by mouth. atorvastatin (Lipitor) 80 mg Tablet Take 1 tablet by mouth every evening. 90 tablet 3 pantoprazole EC (Protonix) 40 mg Tablet, Delayed Release (E.C.) Take 1 tablet by mouth 2 times daily. 90 tablet 3 folic acid (Folvite) 1 mg Tablet Take 1 tablet by mouth daily. 90 tablet 3 nicotine (NICODERM CQ) 21 mg/24 hr Patch 24 hr Change 2 patches on the skin daily. 28 patch 0 thiamine (Vitamin B1) Take 1 tablet by mouth daily. 30 tablet 3 nitroGLYcerin (NITROSTAT) 0.4 mg Tablet, Sublingual PLACE 1 TABLET UNDER TONGUE EVERY 5 MINUTES DIRECTED 3 aspirin 81 mg Tablet, Delayed Release (E.C.) Take 81 mg by mouth Daily. No current facility-administered medications on file prior to visit. Allergies: Allergies Allergen Reactions Venlafaxine Doxycycline Nausea And Vomiting Other [Unclassified Drug] Nausea And Vomiting Had an allergic reaction to an antibiotic but does not know the name Glu Monitoring: CGM: Utilizes a OneName G7. Unfortunately he is not yet registered in our system to see the full report but reviewing his information off his smart phone reveals Time in RANGE = 84% Time - HIGH = 13% TIME - VERY HIGH = 2% Time Low = less than 1% Time VERY LOW = less than 1% Ave Glucose = 186 GMI = 7.8% Ambulatory Glucose Profile description: Review of his ambulatory glucose profile reveals relatively flat curves running within his goal range but his goal range has been adjusted to run between 70 and 240 mg rather than the typical 70 to 180 mg Last A1c = 7.4% 04/23/23 outside at [facility] Recent Labs 10/05/22 0104 HA1C 7.4* DM Complications: Macrovascular: CHD: Known CAD status post 2 prior MIs with 2 stents placed at 1 event and 1 stent at the other. Hewas recently admitted in the local hospital in September last summer with unstable angina. 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 He reports been told he has an element of diabetic gastropathy with delayed gastric emptying PMHx: Significant for diffuse vascular disease with CAD and ASO, ongoing tobacco use, COPD and CARLOTA Other past medical history as noted below Active Ambulatory Problems Diagnosis Date Noted Chronic midline low back pain without sciatica 02/08/2017 Cervical spinal stenosis 11/09/2018 ST elevation myocardial infarction involving right coronary artery 08/06/2019 History of tobacco use 08/06/2019 Gastroesophageal reflux disease without esophagitis 08/07/2019 Type 2 diabetes mellitus without complication, without long-term current use of insulin 08/07/2019 Uncomplicated alcohol dependence 08/07/2019 Chronic obstructive pulmonary disease 08/07/2019 CARLOTA (obstructive sleep apnea) 08/25/2017 Loose stools 04/12/2021 Food intolerance 04/12/2021 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 04/12/2021 Delayed gastric emptying 04/12/2021 Dyspepsia 04/12/2021 Unstable angina 10/04/2022 Resolved Ambulatory Problems Diagnosis Date Noted No Resolved Ambulatory Problems Past Medical History: Diagnosis Date Asthma Diaz's esophagus COPD (chronic obstructive pulmonary disease) Diabetes Gastroesophageal reflux Hyperlipidemia Kidney failure Mental health problem Myocardial infarction 08/2017 Peptic ulcer disease Post-operative nausea and vomiting FamHx: There is a very strong family history of type 2 diabetes affecting his mother and father both paternal grandparents and one of his siblings (a brother) Family History Problem (# of Occurrences) Relation (Name,Age of Onset) Myocardial Infarction (3) Mother (50), Father (50), Brother (40) Negative family history of: Glaucoma, Macular Degeneration, Retinal Detachment, Amblyopia Family History Problem Relation Age of Onset Myocardial Infarction Mother 50 Myocardial Infarction Father 50 Myocardial Infarction Brother 40 Glaucoma Neg Hx Macular Degeneration Neg Hx Retinal Detachment Neg Hx Amblyopia Neg Hx SocHx: Social History Socioeconomic History Marital status: Spouse name: Not on file Number of children: Not on file Years of education: Not on file Highest education level: Not on file Occupational History Not on file Tobacco Use Smoking status: Every Day Packs/day: 1.00 Years: 40.00 Additional pack years: 0.00 Total pack years: 40.00 Types: Cigarettes Smokeless tobacco: Never Vaping Use Vaping Use: Never used Substance and Sexual Activity Alcohol use: Not Currently Alcohol/week: 7.0 - 14.0 standard drinks of alcohol Types: 7 - 14 Shots of liquor per week Drug use: Not Currently Sexual activity: Not on file Other Topics Concern Not on file Social History Narrative Not on file Social Determinants of Health Financial Resource Strain: Not on file Food Insecurity: Not on file Transportation Needs: Not on file Physical Activity: Not on file Intimate Partner Violence: Not At Risk (04/18/2023) DH IPV Inpatient Questions Prevent Contact with Others: no Feels Threatened by Someone: no Feels Unsafe at Home: no Physical Signs of Abuse Present: no Housing Stability: Not on file Tobacco: Smokes 1 pack/day ETOH: Relatively rare 1 drink per week Diet: Trying to follow a lower sugar lower carbohydrate diet 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 Recent prostatitis and now being evaluated for hematuria which began 2 days ago He otherwise has few complaints today Phys Ex: VITALS: Weight 135.2 kg BMI 40.42 kg/m?? Blood pressure 103/66 mmHg General appearance: In no acute distress. HEENT: NCAT, blind in left eye with decreased pupillary response EOMI, Sclera non-icteric Neck: No thyroid goiter, no cervical lymphadenopathy Carotids 0-1 bilaterally, no bruits Chest: Distant breath sounds clear to auscultation without rales, rubs or rhonchi CV: Regular somewhat slowed rate with distant heart sounds but rhythm without murmurs rubs or gallops (on beta-geronimo) Abd: Overweight, soft, mildly tender, no rebound, no hepatomegaly to percussion or palpation, no palpable abdominal aortic mass or pulsation or bruit Neuro: General nonfocal neurologic examination 10-pt Monofilament testing in both feet is significantly reduced distally at the toes and metatarsal, preserved at the midfoot heel and dorsum Ext: Diminished dorsalis pedis and posterior tibialis pulses ,no clubbing or cyanosis, trace edema,shortened fourth phalanges bilaterally Skin: No focal skin breakdown rash or ulceration in the distal lower extremities or feet LABS: Recent Labs 10/05/22 0104 HA1C 7.4* Lab Results Component Value Date CHLPL 133 10/05/2022 HDL 32 10/05/2022 CHOLHDL 4.2 10/05/2022 TRIG 355 10/05/2022 LDLCHOL 33 08/06/2019 LDLDIRECT 61 10/05/2022 Lab Results Component Value Date POCGLU 181 10/05/2022 Assessment & Plan: 1. Insulin requiring type 2 diabetes mellitus: He has multiple vascular complications, chronic kidney disease, and neuropathy both peripheral and potentially gastroparesis His A1c's would seem to implicate reasonable glycemic control however I am worried with his unorthodox insulin regimen that he is may be balancing between marked hyperglycemia and undocumented hypoglycemia. His Dexcom CGM will not picker / packer hypoglycemia if it is instantly treated as he is likely doing. Before making insulin dosage adjustments I would like to refer him to our diabetes nurse educator for further education and training on insulin dosing. She will also help him connect his Dexcom CGM reports to our system so that we may review those results. I will ask him to reset his CGM goal range to 70-1 80 rather than the current 70 to 240 mg/dL He may continue his empagliflozin. Would like him not to make daily adjustments in his basal insulin but will pursue this after further training and education Would also like to better understand when he is utilizing his Humalog which can vary from anywhere from 0 units up to 150 units daily. We will then continue to work with him through the portal at reviewing his glycemic data and makinginsulin dosage adjustment recommendations. I will arrange for him to return to see our diabetes nurse practitioner in 3 months time. If he is stable at that time we will then return his routine care related to his diabetes to his primary care physician of course always remaining available should additional issues arise Blood pressure well-controlled today at 103/66 mmHg 2. Tobacco cessation He was smoking 2 packs/day and is little dose down to 1 pack/day. However have encouraged him in the strongest possible terms that he needs to make further inroads at complete smoking cessation as anything we do in terms of his diabetes control will pale in comparison with his continued smoking and his known vasculopathies. 3. Hyperlipidemia. The patient is maintained on atorvastatin 80 mg daily and had a normal ALT of 36. His last LDL cholesterol was well within goal at 39. He had some elevation in triglycerides but this should respond to improving glycemic control. A note will be sent to the referring provider It was a pleasure to be involved in the care of .patient. If you have any questions about the management and treatment plan as outlined above, or if I can be of further assistance, please do not hesitate to contact me. Sincerely, Jeovanny Lancaster MD Endocrinology Section [facility] Total time spent in comprehensive review of his medical records and and examining, counseling and reviewing treatment plans & Coordination of care with the patient + minutes documented in this encounter Plan of Treatment Upcoming Encounters Date Type Department Care Team (Late st Contact Info) Description 03/20/2024 10:00 AM EST Office [place] [address] Tania Gates OD [facility] [place] [address] Scheduled Referrals Name Type Priority Associated Diagnoses Orde r Schedule Referral to Diabetic Education Outpatient Referral Routine Type 2 diabetes mellitus with ESRD (end-stage renal disease) Ordered: 04/25/2023 documented as of this encounter Visit Diagnoses Diagnosis Type 2 diabetes mellitus with ESRD (end-stage renal disease) Type II or unspecified type diabetes mellitus with renal manifestations, not stated as uncontrolled Cigar smoker Tobacco use disorder Mixed hyperlipidemia documented in this encounter Care Teams Curriculum Supervisor Relationship Specialty Start Date End Date Karen Barbosa MD [address] [place] [address] PCP - General Family Medicine 10/04/22 documented as of this encounter
--- OUTSIDE RECORDS SUMMARY | 2023-10-24 15:58 | XMS_ITS | Encounter Summary ---
Author Organization [facility] [place] [address] Care Team Providers Care Rn Midwife Name Role Phone Karen Barbosa MD Primary Care Provider [phone] Encounter Details Date Type Department Care Team (Latest Contact Info) Description 08/28/2023 2:30 PM EDT Office Visit [place] [address] Shira Gauthier MD [facility] [place] [address] Atherosclerosis of lower extremity with claudication Social History Tobacco Use Types Packs/Day Years Used Date Smoking Tobacco: Every Day Cigarettes 1 40 Smokeless Tobacco: Never Tobacco Cessation:Ready to Q uit: Not Asked; Counseling Given: Not Answered Alcohol Use Standard Drinks/Week Comments Not Currently 7 (1 standard drink = 0.6 oz pur e alcohol) [facility] Inpatient Questions Answer Date Recorded Does [...] Pulse 73 08/28/2023 2:28 PM EDT Temperature - - Respiratory Rate - - Oxygen Saturation - - Inhaled Oxygen Concentration - - Weight 130.6 kg (288 lb) 08/28/2023 2:28 PM EDT Height 182.9 cm (6') 08/28/2023 2:28 PM EDT Body Mass Index 39.06 08/28/2023 2:28 PM EDT documented in this encounter Progress Notes * Shira Gauthier MD - 08/28/2023 2:30 PM EDT Pt returns for treadmill ABIs. These are normal. His BLE symptoms persist and recurred rapidly whenwalking on the treadmil. Yet his ABIs did not change at all even with the symptom recurrence. This demonstrates that his symptoms are not ischemic in etiology. I recommend that he be evaluated for spinal stenosis or arthritis. Shira Gauthier MD, MS Section of Vascular Surgery documented in this encounter Plan of Treatment Upcoming Encounters Date Type Department Care Team (Late st Contact Info) Description 03/20/2024 10:00 AM EST Office [place] [address] Tania Gates OD [facility] [place] [address] documented as of this encounter Visit Diagnoses Diagnosis Atherosclerosis of lower extremity with claudication documented in this encounter Care Teams Rn Midwife Relationship Specialty Start Date End Date Karen Barbosa MD [address] [place] [phone] PCP - General Family Medicine 10/04/22 documented as of this encounter
--- OUTSIDE RECORDS SUMMARY | 2023-10-24 15:58 | XMS_ITS | Encounter Summary ---
Author Organization [facility] [place] [address] Care Team Providers Care Pullman Car Clerk Name Role Phone Karen Barbosa MD Primary Care Provider [phone] Encounter Details Date Type Department Care Team (Latest Contact Info) Description 07/25/2023 Travel Social History Tobacco Use Types Packs/Day [...] 10:00 AM EST Office Visit [place] [address] Tania Gates OD [facility] [place] [address] documented as of this encounter Visit Diagnoses Not on filedocumented in this encounter Care Teams Pullman Car Clerk Relationship Specialty Start Date End Date Karen Barbosa MD [address] [place] [phone] PCP - General Family Medicine 10/04/22 documented as of this encounter
--- OUTSIDE RECORDS SUMMARY | 2023-10-24 15:58 | XMS_ITS | Encounter Summary ---
[place] [address] Care Team Providers Care Roller Billet Mill Name Role Phone Karen Barbosa MD Primary Care Provider [phone] Encounter Details Date Type Department Care Team (Late st Contact Info) Description 05/25/2023 Telephone [place] [phone] Jaylin Chew Social History Tobacco Use Types Packs/Day Years Used Date Smoking Tobacco: Every Day Cigarettes 1 40 Smokeless Tobacco: Never Alcohol Use Standard Drinks/Week Comments Not Currently 7 (1 standard drink = 0.6 oz pur e alcohol) [facility] Inpatient Questions Answer Date Recorded Does Anyone [...] encounter Miscellaneous Notes * Telephone Encounter - Jaylin Chew - 05/25/2023 1:42 PM EDT LVMx2 to schedule: Treadmill DEONTE - claudication 2-4WK F/U ([place]) documented in this encounter Plan of Treatment Upcoming Encounters Date Type Department Care Team (Late st Contact Info) Description 03/20/2024 10:00 AM EST Office [place] [address] Tania Gates OD [facility] [place] [address] documented as of this encounter Visit Diagnoses Not on filedocumented in this encounter Care Teams Roller Billet Mill Relationship Specialty Start Date End Date Karen Barbosa MD [address] [place] [phone] PCP - General Family Medicine 10/04/22 documented as of this encounter
--- OUTSIDE RECORDS SUMMARY | 2023-10-24 15:58 | XMS_ITS | Encounter Summary ---
[place] [address] Care Team Providers Care Oil And Gas Field Technician Name Role Phone Karen Barbosa MD Primary Care Provider [phone] Encounter Details Date Type Department Care Team (Late st Contact Info) Description 01/04/2023 Ancillary Procedure [place] [phone] Karen Barbosa MD [address] [place] [id number] Social History Tobacco Use Types Packs/Day Years Used Date Smoking Tobacco: Every Day Cigarettes 1 40 Smokeless Tobacco: Never Alcohol Use Standard Drinks/Week Comments Yes 7 (1 standard drink = 0.6 oz pur e alcohol) [facility] Inpatient Questions Answer Date Recorded Does [...] 10:00 AM EST [place] [address] Tania Gates OD [facility] [place] [address] documented as of this encounter Procedures Procedure Name Priority Date/Time Associated Diagnosis Comments FILM LIBRARY STORAGE ONLY ULTRASOUND STUDY Routine 01/04/2023 12:00 AM EDT documented in this encounter Results * Film Library- Storage Only Ultrasound Study (01/04/2023 12:00 AM EDT) Narrative [facility] [place] - 03/02/2023 9:44 PM EST This exam is auto-finalizing. It's purpose is for storage only. Karen Barbosa MD IMG FILM LIBRARY ORD ERABLES Performing Organization Address City/State/[facility] Co de Phone Number [place], [place] documented in this encounter Visit Diagnoses Not on filedocumented in this encounter Care Teams Oil And Gas Field Technician Relationship Specialty Start Date End Date Karen Barbosa MD [address] [place] [id number] PCP - General Family Medicine 10/04/22 documented as of this encounter
--- OUTSIDE RECORDS SUMMARY | 2023-10-24 15:58 | XMS_ITS | Encounter Summary ---
Author Organization [facility] [place] [address] Care Team Providers Care Shoe Repairer Name Role Phone Karen Barbosa MD Primary Care Provider [phone] Encounter Details Date Type Department Care Team (Latest Contact Info) Description 05/17/2023 Travel Social History Tobacco Use Types Packs/Day [...] 10:00 AM EST Office [place] [address] Tania Gates OD [facility] [place] [address] documented as of this encounter Visit Diagnoses Not on filedocumented in this encounter Care Teams Shoe Repairer Relationship Specialty Start Date End Date Karen Barbosa MD [address] [place] [phone] PCP - General Family Medicine 10/04/22 documented as of this encounter
--- OUTSIDE RECORDS SUMMARY | 2023-10-24 15:58 | XMS_ITS | Encounter Summary ---
[place] [address] Care Team Providers Care Track Patrol Name Role Phone Karen Barbosa MD Primary Care Provider [phone] Reason for Visit * Consultation (Routine) - Closed Specialty Diagnoses / Procedures Referred By Contac t Referred To Contact Diagnoses Type 2 diabetes mellitus with ESRD (end-stage renal disease) Jeovanny Lancaster MD [facility] [place] [address] Antonina Gutierrez, kaiawhina ID Status Reason Start Date Expiration Date V isits Requested Visits Authorized [id number] Closed Consult, Test & Treat 04/25/2023 04/24/2024 1 1 Encounter Details Date Type Department Care Team (Latest Contact Info) Description 07/25/2023 11:00 AM EDT Clinical [place] [address] Antonina Gutierrez, RN Type 2 diabetes mellitus without complication, without long-term current use of insulin Social History Tobacco Use Types Packs/Day Years Used Date Smoking Tobacco: Every Day Cigarettes 1 40 Smokeless Tobacco: Never Alcohol Use Standard Drinks/Week Comments Not Currently 7 (1 standard drink = 0.6 oz pur e alcohol) PENDING SALE TO [facility] Inpatient Questions Answer Date Recorded Does [...] as of this encounter Progress Notes * Antonina Gutierrez RN - 07/25/2023 11:00 AM EDT General Information: DSME - Initial Referral: Jeovanny Lancaster MD Endo: Jeovanny Lancaster MD PCP: Karen Barbosa MD Visit Type: Face to face What is your language preference? American Spoken: American Reading: American Barriers to Care/Learning/Indications for Individual DSMT Yes No No Barriers X Disease State Cognitive Disability Language Spoken Language Written American Language Financial Emotional/Behavioral Family Support Cultural Diversity Hearing Transportation Vision Low Literacy Diabetes Pathophysiology and Treatment Diabetes Type: Type 2 When diagnosed? 10+ years ago Any previous diabetes education? N/A Last 3 HA1C's 10/05/2022 7.4 Summary of Recommendations/Education Plan and Next Steps The following are recommendations from the visit on July 25, 2023. Please see notes below for more details and complete visit summary. Taking Medication Changes made to patient medications at appointment with LIANNA Aguirre Monitoring Glucose Patient has Dexcom, it is not connected to the clinic at this time. Healthy Eating Eat 3 meals per day and 1 snack. Do not skip meals. - Patient indicates that he only eats two mealsa day and snacks at night. Review carbohydrate counting, reading food labels, list of foods containing carbohydrates. Try to keep meals to 45-60 carbohydrates and snacks to 15 grams of carbohydrates. How many meals do you eat away from home? Patient gave a few examples of foods he regularly gets away from home. Are you following any special diet? No, needs to limit his spinach intake and sodium intake. Do you have any dietary restrictions? No Do you have any cultural considerations when preparing foods? No Do you have any problems purchasing or obtaining food? No Do you have a scale at home? N/A Do you know how to count carbohydrates? Kind of Reducing Risks Visit your PCP. Routine labs. Proper foot care and DAILY foot inspections. Annual eye exams. Don't smoke. Know your risk factors for cardiovascular disease. Take all medications as prescribed. Exercise. Stress reduction. Today's Teaching Discussed with patient My Plate Method of eating. Using Planning Healthy Meals handout, discussed how to build a healthy plate and reviewed foods that had carbohydrates. Patient discussed foods he ate and did not realize had carbohydrates (fruit, green peas). States he does not eat a lot of rice/pas ta/ice cream/crackers. Reviewed with patient how to count carbs and watch portion sizes. Handouts given and reviewed Building a Balanced Meal. Planning Healthy Meals. Diabetes and You. Plan Patient will follow up as needed Total time spent 30 minutes Referring Provider Jeovanny Lancaster MD Billing/Hr Specialist Sherie Manriquez MD documented in this encounter Plan of Treatment Upcoming Encounters Date Type Department Care Team (Late st Contact Info) Description 03/20/2024 10:00 AM EST Office [place] [address] Tania Gates OD [facility] [place] [address] Scheduled Referrals Name Type Priority Associated Diagnoses Orde r Schedule Referral to Diabetic Education Outpatient Referral Routine Type 2 diabetes mellitus with ESRD (end-stage renal disease) Ordered: 04/25/2023 documented as of this encounter Visit Diagnoses Diagnosis Type 2 diabetes mellitus without complication, without long-term current use of insulin documented in this encounter Care Teams Track Patrol Relationship Specialty Start Date End Date Karen Barbosa MD [address] [place] [id number] PCP - General Family Medicine 10/04/22 documented as of this encounter
--- OUTSIDE RECORDS SUMMARY | 2023-10-24 15:58 | XMS_ITS | Encounter Summary ---
[place] [address] Care Team Providers Care Senior Qa Automation Engineer Name Role Phone Karen Barbosa MD Primary Care Provider Encounter Details Date Type Department Care Team (Late st Contact Info) Description 05/04/2023 Telephone [place] [address] Radha Bernardo Social History Tobacco Use Types Packs/Day Years [...] 10:00 AM EST Office [place] [address] Tania Gates OD [facility] [place] [address] documented as of this encounter Visit Diagnoses Not on filedocumented in this encounter Care Teams Senior Qa Automation Engineer Relationship Specialty Start Date End Date Karen Barbosa MD [address] [place] [address] PCP - General Family Medicine 10/04/22 documented as of this encounter
--- OUTSIDE RECORDS SUMMARY | 2023-10-24 15:59 | XMS_ITS | Encounter Summary ---
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 Diabetes control as you are - this affects the stomach & intestines ?? Stick to your healthier diet, this is the best way to manage this condition of the gut. Try to eat small meals, avoid very high fat and very high fiber foods (like steak and broccoli, particularlyin large amounts together) ?? Trial of reglan low dose 10 to 20mg prior to dinner (30 min prior) if needed to help empty the stomach, use sparingly (best if not used every night as a crutch given side effects, but for the first couple of weeks you are taking it you could use it nightly before dinner to see how it's working).If you have any abnormal movements or twitching then stop the medication and let me know. ?? Hydrogen breath test for small intestine bacterial overgrowth, reschedule ?? Collect your poop! Stool testing with fecal elastase, giardia, fecal fat and calprotectin ?? Continue pantoprazole 40mg twice a day, may consider decrease in the future ?? Endoscopy in 3 years (Jan 2024) for Diaz's history, no need to repeat this year Follow-up: 6 months documented in this encounter Progress Notes * Janki Jean MD - 04/12/2021 9:00 AM EST [facility] Section of Gastroenterology and Hepatology Follow-up Telemedicine Visit PCP: Robinson Vazquez APRN Referring provider: Gale Calderon MD HPI: This is a 55 y.o. male following up for evaluation of dyspepsia, belching, gas/bloating and watery diarrhea. Interval follow-up EGD 01/2021 - LARGE amount of food in stomach; islands of salmond-colored mucosa at 38 cm biopsied,mild erythema in the stomach antrum & body, patchy areas in the duodenum that appeared without villi Path - normal duodenum, Z line with chronic inflammation mild no Diaz's, reactive gastropathy noH pylori Had steak & broccoli at 6:30pm the night before ([place]) X ray 12/2020 with gas in bowel but no abnormal dilation or increased stool burden Stool testing and SIBO testing not done. Was sick so missed breath test. Has a hard time pooping and collecting it - gets nauseated with this. A1c: 7.2! Has always felt he has a blockage - eats at night and always feel like the food is there. Refluxes and regurgitates in the middle of the night. Better if moving around. A lot of times now for supper all he's eating is a bowl of soup and sandwich. If eats steak, pork or anything heavy whether at night or during the day it plugs him up. Tolerates small amounts of hamburger. Pizza is inconsistent. Tries to eat lunch. Sticking to turkey and chicken; eggs. Way better in terms of bloating. Tried beano - no change Still not losing weight. Bowels are more log type if eats healthy. Had pizza yesterday, turkey for supper - loose stools this morning. Filtered water now. Review of Systems The remainder of 10 point ROS are negative except as above. GI PROBLEM LIST (with relevant hx & testing) 1. Abdominal pain (generalized) and bloating ?? Post-prandial pain (bloating and distention), sulfer burps when eating meat, better with soft foods, intermittent constipation, reduced PO intake with wt loss ?? Also sx with bread, milk - likely gluten and lactose intolerance ?? Note history of poorly controlled diabetes with an A1c up to 13 now 8.9 and CV disease with cardiac stents, on metformin (1000mg twice day), glipizide (1) & insulin (new); was on trulicity which made his GI sx worse ?? Has a well ?? Note hx of ETOH & tobacco [...] pantoprazole 40mg BID, some regurgitation ?? S/p LUISANA fundoplication > 20 years ago that was successful with no symptoms for decades - note see [facility] also had dense adhesions to spleen perhaps perforated peptic ulcers ?? EGDs in our system [id number] (multiple) - all with the appearance of short segment Diaz's, see [facility]IS for path - also documented antral gastritis ?? EGD 2011 - normal esophagus, antral and duodenal erosions (post-bulbar) - H pylori inactive chronic gastritis and peptic duodenitis ?? EGD 2013, 2016 - one with Diaz's per report ?? EGD 2018 for Diaz's and bloating: Normal except irregular [...] he had years ago prior to his LUISANA. Ongoing for at least 4-5 years. Just [...] often he has pieces of what looks fishing line pop out of his skin in that [...] protonix 40mg BID, heartburn maybe 1x since Luisana. No reflux or regurgitation. Intermittent dysphagia to solids (if sticky like PB) and liquids, particularly with cold water, fine with food like chicken. Worse with certain foods like steak or pork. Chicken is okay. Some breads with yeast bothered him. It is better if he avoids bread. 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 Duration of ETOH/tobacco: Has cut down on [...] Post-operative nausea and vomiting [place] [facility] [place] had [place] Past Surgical History: Procedure Laterality Date ??? CATARACT REMOVAL Right 2016 ??? CORONARY ANGIOPLASTY WITH STENT PLACEMENT 08/2017 ??? PRO UPPER GI ENDOSCOPY, BIOPSY 04/26/2011 EGD WITH BIOPSY performed by KIRSTEN DAMON at [facility] ENDOSCOPY ??? PRO UPPER GI ENDOSCOPY, BIOPSY N/A 09/27/2018 UPPER GASTROINTESTINAL ENDOSCOPY,WITH BIOPSY SINGLE OR MULTIPLE (WRVU 2.49) performed by Luc Hzd MD at [facility] ENDOSCOPY ??? PRO UPPER GI ENDOSCOPY, BIOPSY N/A 01/26/2021 EGD WITH BIOPSY (WRVU 2.49) performed by Nathaniel Azevedo MD at [facility] ENDOSCOPY Social History Socioeconomic History ??? Marital [...] on file Physical Activity: Not on file Housing Stability: Not on file Current Outpatient Medications: ??? OneTouch Verio test strips Strip, TEST BLOOD GLUCOSE TWICE A DAY, Disp: , Rfl: ??? OneTouch Verio Flex meter Misc, TEST BLOOD GLUCOSE TWICE A DAY, Disp: , Rfl: ??? hcdujyslhom-ddhqjrcji-nlhakegw 100-62.5-25 mcg Disk with Device, 1 puff [...] 31 gauge x 3/16 Needle, , Disp: ,Rfl: ??? tamsulosin (Flomax) 0.4 mg Capsule, Take by mouth., Disp: , Rfl: ??? atorvastatin (Lipitor) 80 mg Tablet, Take 1 tablet by mouth every evening., Disp: 90 tablet, Rfl: 3 ??? pantoprazole EC (Protonix) 40 mg Tablet, Delayed Release (E.C.), Take 1 tablet by mouth 2 timesdaily., Disp: 90 tablet, Rfl: 3 ??? folic acid (Folvite) 1 mg Tablet, Take 1 tablet by mouth daily., Disp: 90 tablet, Rfl: 3 ??? nicotine (NICODERM CQ) 21 mg/24 hr Patch 24 hr, Change 2 patches on the skin daily. (Patient not taking: Reported on 09/09/2020), Disp: 28 patch, Rfl: 0 ??? thiamine (Vitamin B1), Take [...] 1 TABLET UNDER TONGUE EVERY 5 MINUTES DIRECTED, Disp: , Rfl: 3 ??? metFORMIN (GLUCOPHAGE-XR) 500 mg Tablet Sustained Release 24 hr, Take 1,000 mg by mouth 2 timesdaily., Disp: , Rfl: 3 ??? lancets 33 [...] for evaluation of abdominal pain and bloating. Dyspepsia with belching (sulfer burps) and some abdominal wall pain. Diffuse gas/bloating and distention and watery diarrhea associated with the above. Probable dysbiosis (question SIBO, well water?) and dysmotility 2/2 to DM, as well as gluten and lactose intolerance. Mild dysmotility on testing(GE scan delayed at 2 hours but not 4 hours), but large amount of food in stomach on EGD likely because he ate heavy food (high fat/high fiber) the night prior - suspect delayed emptying with this, no H pylori. Diabetes control is much better, congratulated on this, discussed relationship to GI sx.Discussed importance of sticking to his diet. Offered trial of reglan, reviewed risks/benefits, keep to lowest dose. Counseled on tardive dyskinesia. Consider: pelvic floor & diaphragmatic dysfunction; pancreatic exocrine insufficiency (DM, ETOH, tobacco); DM medication-related side effect (metformin) less likely given chronic use. Less likelymesenteric ischemia (given hx of CV disease; note normal vessels on prior CT) as this would not account for gas/bloating/distention which seem to trigger the pain. Doubt biliary. Recommend: ?? Diabetes control as you are ?? Stick to your healthier diet, this is the best way to manage this condition of the gut. Try to eat small meals, avoid very high fat and very high fiber foods (like steak and broccoli, particularlyin large amounts together) ?? Trial of reglan low dose 10 to 20mg prior to dinner (30 min prior) if needed to help empty the stomach, use sparingly ?? Hydrogen breath test for SIBO, recommend rescheduling ?? Collect your poop! Counseled on the benefits. Stool testing with fecal elastase, giardia, fecal fat and calprotectin ?? Continue pantoprazole 40mg twice a day, consider decrease in the future ?? EGD in 3 years (Jan 2024) for Diaz's history, no need to repeat this year, sent note to scheduling team Consider as next steps ?? Mesenteric duplex, recommend dedicated US of GB (better for detecting stones) and liver (given hx of fatty liver) ?? Low dose anti-spasmodic, low dose TCA, buspar Follow-up: 6 months The patient was located in [place] at the time of their telemedicine visit. The risks, benefits and alternatives were discussed with the patient who understands and agrees with above. Janki Jean MD 04/11/21 Janki Jean MD Section of Gastroenterology and Hepatology [facility] [address] documented in this encounter Plan of Treatment Upcoming Encounters Date Type Department Care Team (Late st Contact Info) Description 03/20/2024 10:00 AM EST Office [place] [address] Tania Gates, [facility] OPHTHALMOLOGY [place] [id number] documented as of this encounter Visit Diagnoses Diagnosis Dyspepsia Dyspepsia and other specified disorders of function of stomach Delayed gastric emptying Dyspepsia and other specified disorders of function of stomach Gastroesophageal reflux disease without esophagitis Esophageal reflux 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
--- OUTSIDE RECORDS SUMMARY | 2023-10-24 15:59 | XMS_ITS | Encounter Summary ---
Author Organization [facility] [place] [address] Care Team Providers Care Screen Printing Equipment Setter Name Role Phone Robinson Vazquez APRN Primary Care Provider [phone]- [phone] Reason for Visit * Consultation (Urgent) - Closed Specialty Diagnoses / Procedures Referred By Keith sanchez Referred To Contact Vascular Surgery Diagnoses Peripheral vascular disease, unspecified Karen Barbosa MD [address] [address] [facility] Vascular Surg [address] [place] [address] Referral ID Status Reason Start Date Expiration Date V isits Requested Visits Authorized [id number] Closed Consult, Test & Treat 02/07/2022 02/07/2023 1 1 Encounter Details Date Type Department Care Team (Late st Contact Info) Description 02/24/2022 9:30 AM EST Office Visit [place] [address] Orin Tsai MD [facility] [place] [address] Leriche syndrome Social History Tobacco Use Types Packs/Day Years Used Date Smoking Tobacco: Every Day Cigarettes 1 40 Smokeless Tobacco: Never Tobacco Cessation:Ready to Q uit: Not Asked; Counseling Given: Not Answered Alcohol Use Standard Drinks/Week Comments Yes 7 (1 standard drink = 0.6 oz pur e alcohol) Sex and Gender Information Value Date Recorded Sex Assigned at Not on file Gender Identity Not on file Sexual Orientation Not on file documented as of this encounter Last Filed Vital Signs Vital Sign Reading Time Taken Comments Blood Pressure 136/90 02/24/2022 9:33 AM EST Pulse 77 02/24/2022 9:33 AM EST Temperature - - Respiratory Rate - - Oxygen Saturation - - Inhaled Oxygen Concentration - - Weight 138.8 kg (306 lb) 02/24/2022 9:33 AM EST Height 182.9 cm (6') 02/24/2022 9:33 AM EST Body Mass Index 41.5 02/24/2022 9:33 AM EST documented in this encounter Progress Notes * Orin Tsai MD - 02/24/2022 9:30 AM EST OUTPATIENT VASCULAR SURGERY CONSULTATION Reason for Visit: buttock claudication, L calf edema History of Present Illness: Samy Patricio Jr. is a 56 y.o. male referred by Dr. Karen Barbosafor evaluation of buttock claudication and left calf edema. He reports for the last 6 months he hasbeen experiencing burning sensation in bilateral buttocks with walking which improves with rest. Hedenies any symptoms of calf claudication. He also reports difficulty obtaining erections over the pa st 6 months. In addition he reports symptoms of swelling in his left calf which have improved somewhat with diuresis. The swelling is associated with a burning discomfort. He denies any history of deep vein thrombosis and does not wear compression stockings. He is an active smoker, motivated to quit. He is reduced from 2 packs/day to 1 pack/day with a planto quit by the end of the year. He has history of coronary artery disease and diabetes. He currently takes aspirin and statin. Atherosclerotic Risk Factors: (y) DM (n) HTN (y) CAD (n) CHF (n) Hyperlipidemia (n) CVA reports that he has been smoking cigarettes. He has a 40.00 pack-year smoking history. He has neverused smokeless tobacco. Patient Active Problem List Diagnosis Code ??? [...] J44.9 ??? CARLOTA (obstructive sleep apnea) G47.33 ??? Loose stools R19.5 ??? Food intolerance K90.49 ??? 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 K22.70 ??? Delayed gastric emptying K30 ??? Dyspepsia R10.13 Current Outpatient Medications: ??? torsemide (Demadex) 20 mg Tablet, , Disp: , Rfl: ??? empagliflozin (Jardiance) 10 mg Tablet, Take 10 mg by mouth daily., Disp: , Rfl: ??? OneTouch Verio test strips Strip, TEST BLOOD GLUCOSE TWICE A DAY, Disp: , Rfl: ??? OneTouch Verio Flex meter Mis, TEST BLOOD GLUCOSE TWICE A DAY, Disp: , Rfl: ??? agdaeyxqdbf-hwyhkvkwq-bmprtsop 100-62.5-25 mcg Disk with Device, 1 puff inhaled once a day, Disp: , Rfl: ??? Lantus Solostar U-100 Insulin pen, 50 Units., Disp: , Rfl: ??? humaLOG KwikPen 100 unit/mL Insulin Pen, , Disp: , Rfl: ??? insulin needles, disposable, 31 gauge x 3/16 Needle, , Disp: , Rfl: ??? atorvastatin (Lipitor) 80 [...] hr, Change 2 patches on the skin daily., Disp: 28 patch, Rfl: 0 ??? thiamine [...] by mouth Daily., Disp: , Rfl: ??? tamsulosin (Flomax) 0.4 mg Capsule, Take by mouth., Disp: , Rfl: Allergies Allergen Reactions ??? Venlafaxine ??? Doxycycline Nausea And Vomiting ??? Other [Unclassified Drug] Nausea And Vomiting Had an allergic reaction to an antibiotic but does not know the name Review of Systems: Constitutional (weight change, fever) - Denies Neuro (dizziness, seizures, numbness, tingling) - Denies Eyes (vision) - Denies Ears, nose, throat (hearing) - Denies Cardiovascular (CP) - Denies Respiratory (SOB) - Denies GI (abd pain, nausea, emesis, blood in stool) - Denies (hematuria, dysuria, frequency) - Denies Muscoloskeletal (extremity pain, weakness) - Denies Skin (ulcers, rashes) - Denies Functional Status/Social Hx: On disability, + Tobacco Use Family Hx: Negative for Thrombosis, Bleeding Disorders, + family h/o CAD, CVA Physical Exam: BP 136/90 (BP Location (NBP): Right arm, Patient Position: Sitting, BP Cuff Sizes: Adult (25-34 cm)) Pulse 77 Ht 182.9 cm (6') Wt (!) 138.8 kg (306 lb) BMI 41.50 kg/m?? General - NAD, appears stated age Neuro - Alert and Oriented, Motor Sensory grossly intact Skin - No prominent markings or lesions Ear, Nose, Throat - No masses, No lesions Cardiac - RRR, no murmurs Lungs - Clear Abd - Soft, obese, NT, ND, No palpable pulsatile masses Musculoskeletal- full ROM upper and lower extremities Psych- alert oriented X3 Extremities - Warm, pink, 1+ edema LLE to knee, brisk capillary refill Vascular Exam: R L Carotid 2/2 bruit (n) 2/2 bruit (n) Radial 2/2 2/2 Femoral 2/2 2/2 Popliteal 2/2 2/2 DP 2/2 2/2 PT 2/2 2/2 Labs: Recent Results (from the past 72 hour(s)) DEONTE, legs, multiple levels Result Value Ref Range VB Text Report Department: Vascular Surgery Lab Patient: [id number] (SAMY PATRICIO) CPT: 75736 Referring Physician: VINICIUS ESTRADA, JOVANI Indications: PAD on CT at OSH Diabetes mellitus: Yes Findings: Right Pressure (mm Hg) DEONTE Waveform TBI Brachial Artery 114 Common Femoral Artery Triphasic Popliteal Artery Triphasic Dorsalis Pedis (Ankle) Artery 127 1.07 Triphasic Posterior Tibial (Ankle) Artery 130 1.09 Triphasic Great Toe 88 0.74 Left Pressure (mm Hg) DEONTE Waveform TBI Brachial Artery 119 Common Femoral Artery Triphasic Popliteal Artery Triphasic Dorsalis Pedis (Ankle) Artery 123 1.03 Triphasic Posterior Tibial (Ankle) Artery 133 1.12 Triphasic Great Toe 90 0.76 Interpretation: RIGHT: No significant lower extremity arterial occlusive disease at rest. LEFT: No significant lower extremity arterial occlusive disease at rest. Comparison: No previous study in our vascular lab database for comparison. VB Text Report End of Report Studies: No flowsheet data found. CT aorta with run-off 02/02/22, images reviewed. There is calcification of his infrarenal aorta, iliac and common femoral arteries without significant stenosis. There are multilevel stenoses of the internal iliac arteries bilaterally. Assessment and Plan: 56 y.o. 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 I explained the nature of peripheral arterial disease as well as the fact that the stenoses cannot be in tervened upon. We discussed the importance of risk factor modification and I have commended him on his plans to quit smoking. Recommend that he continue aspirin and statin. We discussed the importance of exercise as tolerated to improve collateral flow. As for his left calf edema it is possible this could be related to some venous insufficiency however he has no varicosities on exam. I recommend compression stockings and diuresis per his PCP. If his symptoms worsen then he can be referred to mefor evaluation of left lower extremity venous insufficiency. He will otherwise follow-up with me dustin as-needed basis. 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
--- OUTSIDE RECORDS SUMMARY | 2023-10-24 15:59 | XMS_ITS | Encounter Summary ---
[place] [address] Care Team Providers Care Crop And Soil Scientist Name Role Phone Karen Barbosa MD Primary Care Provider [phone] Encounter Details Date Type Department Care Team (Late st Contact Info) Description 10/04/2022 External [place] [address] Social History Tobacco Use Types [...] 10:00 AM EST [place] [address] Tania Gates OD [facility] [place] [address] documented as of this encounter Procedures Procedure Name Priority Date/Time Associated Diagnosis Comments ECG SCAN Routine 10/04/2022 11:38 AM EDT documented in this encounter Results * Scan Doc: ECG (10/04/2022 11:38 AM EDT) Historical Provider MD KUMAR MGR SCAN EX T ORDR/RSLT documented in this encounter Visit Diagnoses Not on filedocumented in this encounter Care Teams Crop And Soil Scientist Relationship Specialty Start Date End Date Karen Barbosa MD [address] [place] [id number] PCP - General Family Medicine 10/04/22 documented as of this encounter
--- OUTSIDE RECORDS SUMMARY | 2023-10-24 15:59 | XMS_ITS | Encounter Summary ---
[place] [address] Care Team Providers Care Analytical Consultant Name Role Phone Robinson Vazquez APRN Primary Care Provider [phone]- [phone] Reason for Referral * Consultation (Routine) - Closed Specialty Diagnoses / Procedures Referred By Keith sanchez Referred To Contact Neurosurgery Diagnoses Cervical disc disorder Cervical spondylosis without myelopathy Amanda Quan APRN [address] [place] [address] [facility] [address] [place] [address] Referral ID Status Reason Start Date Expiration Date V isits Requested Visits Authorized [id number] Closed Consult, Test & Treat PCP Updated and/or Approved 04/04/2022 04/04/2023 6 6 Encounter Details Date Type Department Care Team (Late st Contact Info) Description 04/04/2022 Transcribe Orders eDH Incoming Referrals [phone] Amanda Quan APRN [address] [place], [place] [id number] Cervical disc disorder; Cervical spondylosis without myelopathy Social History Tobacco Use Types Packs/Day Years [...] 10:00 AM EST [place] [address] Tania Gates OD [facility] [place] [address] Scheduled Referrals Name Type Priority Associated Diagnoses Orde r Schedule Referral to Neurosurgery Outpatient Referral Routine Cervical disc disorder Cervical spondylosis without myelopathy Ordered: 04/04/2022 documented as of this encounter Visit Diagnoses Diagnosis Cervical disc disorder Other and unspecified disc disorder of cervical region Cervical spondylosis without myelopathy documented in this encounter Care Teams Analytical Consultant Relationship Specialty Start Date End Date Robinson Vazquez, SECOND OFFICER [address] [place] [address] PCP - General Family Medicine 12/11/20 10/03/22 documented as of this encounter
--- OUTSIDE RECORDS SUMMARY | 2023-10-24 15:59 | XMS_ITS | Encounter Summary ---
Author Organization [facility] [address] Care Team Providers Care Sas Statistical Programmer Name Role Phone Robinson Vazquez APRN Primary Care Provider [phone]- [phone] Encounter Details Date Type Department Care Team (Latest Contact Info) Description 08/29/2022 5:00 PM EDT Procedure [place] [address] José Miguel Anderson MD [facility] [place] [address] PCO (posterior capsular opacification), right; Pseudophakia of right eye Social History Tobacco Use Types Packs/Day Years [...] as of this encounter Progress Notes * José Miguel Anderson MD - 08/29/2022 5:00 PM EDT I have seen the patient in person and reviewed the resident's above history and I agree with the details as written. The assessment and plan were formulated in discussion with me and I agree with them as documented. I was the attending physician supervising the resident in the above care and I was present with theresident for the entire procedure. documented in this encounter Plan of Treatment Upcoming Encounters Date Type Department Care Team (Late st Contact Info) Description 03/20/2024 10:00 AM EST Office [place] [address] Tania Gates, [facility] [place] [address] Pending Results Name Type Priority Associated Diagnoses Date /Time Capsulotomy-YAG Laser - OD - Right Eye Ophthalmology Routine PCO (posterior capsular opacification), right Pseudophakia of right eye 08/29/2022 5:15 PM EDT documented as of this encounter Procedures Procedure Name Priority Date/Time Associated Diagnosis Comments CAPSULOTOMY-YAG LASER - OD - RIGHT EYE Routine 08/29/2022 5:15 PM EDT PCO (posterior capsular opacification), right Pseudophakia of right eye documented in this encounter Visit Diagnoses Diagnosis PCO (posterior capsular opacification), right After-cataract, unspecified Pseudophakia of right eye Lens replaced by other means documented in this encounter Care Teams Sas Statistical Programmer Relationship Specialty Start Date End Date Robinson Vazquez, CYTOGENETICS LABORATORY MANAGER [address] [place] [address] PCP - General Family Medicine 12/11/20 10/03/22 documented as of this encounter
--- OUTSIDE RECORDS SUMMARY | 2023-10-24 15:59 | XMS_ITS | Encounter Summary ---
Author Organization [facility] [place] [address] Care Team Providers Care Public Relations Sales Marketing Name Role Phone Robinson Vazquez APRN Primary Care Provider [phone]- [phone] Encounter Details Date Type Department Care Team (Late st Contact Info) Description 03/21/2022 10:40 AM EST Office [place] [address] Tania Gates OD [facility] [place] [address] PATIENT NOT SEEN Social History Tobacco Use Types Packs/Day Years [...] of this encounter Progress Notes * Tania Gates OD - 03/21/2022 10:40 AM EST This patient was not seen in this encounter. documented in this encounter Plan of Treatment Upcoming Encounters Date Type Department Care Team (Late st Contact Info) Description 03/20/2024 10:00 AM EST Office [place] [address] Tania Gates OD [facility] [place] [address] documented as of this encounter Visit Diagnoses Diagnosis DH PATIENT NOT SEEN documented in this encounter Care Teams Public Relations Sales Marketing Relationship Specialty Start Date End Date Robinson Vazquez, GIS SOFTWARE DEVELOPER [address] [place] [address] PCP - General Family Medicine 12/11/20 10/03/22 documented as of this encounter
--- OUTSIDE RECORDS SUMMARY | 2023-10-24 15:59 | XMS_ITS | Encounter Summary ---
Author Organization [facility] [place] [address] Care Team Providers Care Cherry Grower Name Role Phone Robinson Vazquez APRN Primary Care Provider [phone]- [phone] Encounter Details Date Type Department Care Team (Latest Contact Info) Description 08/29/2022 Travel Social History Tobacco Use Types Packs/Day [...] 10:00 AM EST Office [place] [address] Tania Gates OD [facility] [place] [address] documented as of this encounter Visit Diagnoses Not on filedocumented in this encounter Care Teams Cherry Grower Relationship Specialty Start Date End Date Robinson Vazquez APRN [address] [place] [address] PCP - General Family Medicine 12/11/20 10/03/22 documented as of this encounter
--- OUTSIDE RECORDS SUMMARY | 2023-10-24 15:59 | XMS_ITS | Encounter Summary ---
Author Organization [facility] [place] [address] Care Team Providers Care Collector Of Internal Revenue Name Role Phone Karen Barbosa MD Primary Care Provider Reason for Visit * Auth/Cert (Routine) Specialty Diagnoses / Procedures Referred By Keith t Referred To Contact Diagnoses Unstable angina Chest Pain Yosef Wilkes MD [facility] [address] [facility] Referral ID Status Reason Start Date Expiration Date Visits Re quested Visits Authorized [id number] 1 1 Encounter Details Date Type Department Care Team (Latest Contact Info) Description 10/04/2022 5:57 PM EDT - 10/05/2022 10:45 PM EDT Hospital Encounter Heart and Vascular Unit Level 3 [place] [address] Yosef Wilkes MD [facility] [place] [address] Unstable angina Discharge Disposition: Home Social History Tobacco Use Types Packs/Day Years [...] Sign Reading Time Taken Comments Blood Pressure 117/67 10/05/2022 9:00 PM EDT Pulse 62 10/05/2022 9:00 PM EDT Temperature 36.6 ??C (97.9 ??F) 10/05/2022 7:44 PM ED T Respiratory Rate 18 10/05/2022 7:44 PM EDT Oxygen Saturation 97% 10/05/2022 9:00 PM EDT Inhaled Oxygen Concentration - - Weight 134.8 kg (297 lb 3.2 oz) 10/05/2022 4:05 AM EDT Height - - Body Mass Index 40.31 02/24/2022 9:33 AM EST documented in this encounter Discharge Summaries * Anny Ely PA - 10/05/2022 9:52 AM EDT Discharge Summary Patient Name: Samy Patricio Jr. Patient Age: 56 y.o. Language: Azeri Admit date: 10/04/2022 Discharge date and time: 10/05/2022 5:40 PM Attending Physician: Yosef Wilkes MD Discharge Physician: Yosef Wilkes MD Follow-up Recommendations for Providers: Samy Patricio Jr. was admitted for chest pain concerning for unstable angina in setting of knownCAD with prior stenting. # Chest pain - TTE with pEF without regional WMAs - LHC without new obstructive disease - Follow up with Dr. Kingston as scheduled - Encouraged to stop smoking and comply with CPAP - Follow up with PCP and cardiology routinely as an outpatient Inpatient Provider Contact Information: MD Anny Oh PA-C Cardiovascular Medicine [phone] Discharge Diagnoses (Hospital Problems) and Secondary Diagnoses (Chronic Problems): Active Hospital Problems Diagnosis Unstable angina Resolved Hospital Problems No resolved problems to display. Active Non-Hospital Problems Diagnosis Loose stools Food intolerance 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 Delayed gastric emptying Dyspepsia Gastroesophageal reflux disease without esophagitis Type 2 diabetes mellitus without complication, without long-term current use of insulin Uncomplicated alcohol dependence Chronic obstructive pulmonary disease ST elevation myocardial infarction involving right coronary artery History of tobacco use Cervical spinal stenosis CARLOTA (obstructive sleep apnea) Chronic midline low back pain without sciatica Operations/Major Procedures and CV studies: [facility] 10/05/22: Hemodynamics: Left Heart Pressures Resting: Syst Diast EDP a v m Ao 106 62 80 LV 106 15 Coronary Angiography: Dominance: Right Left Main The left main was normal, free of disease. Left Anterior Descending There was mild diffuse (<=25% stenosis) disease of the entire vessel segment of the left anterior descending artery (LAD). The LAD was large. Left Circumflex There was mild diffuse (<=25% stenosis) disease of the entire vessel segment of the left circumflex artery (LCX). The LCX was large. The previously placed stent is patent. Right Coronary Artery There was mild diffuse (<=25% stenosis) disease of the entire vessel segment of the right coronary artery (RCA). The RCA was large. The mid segment of the RCA had a single discrete 50% stenosis. The previously placed stent is patent. Vascular Access: Vascular Access Management: Mechanical Compression of the right radial artery access site was performed. TTE 10/05/22: Interpretation Summary Optison was used for left ventricular opacification but imaging quality remained somewhat limited. Left ventricle is of normal size. Wall thickness is normal. Left ventricular systolic function is normal. The left ventricular ejection fraction is 57% by Hi's biplane. There are no segmental wall motion abnormalities. The right ventricle is of normal size. Right ventricular systolic function is normal. The right atrium is mildly dilated. No significant valve disease. No significant changes compared to fellow's study of last night, right atrium now measured mildly dilated. History of Presentation (per admission H&P): 56 yo male with PMH of CAD with 3 stents in the past, Insulin dependent type 2 diabetes, hypertension, hyperlipidemia comes into the ED at [facility] for chest pain. Patient reports having chest pain around 7 am today. Chest pain was described as pressure like, substernal, partially relieved with nitro. Patient states this pain is similar to the time he had his first he art attack. In the ed patient was found to have normal troponin x1, and normal EKG. Patient was started on heparin drip and was loaded with aspirin and plavix and patient was transferred to [facility] [place] for unstable angina. Patient still reports having 2/10 chest pain currently. Patient reports no fevers, no chills, no nausea, no vomiting, no diarrhea. Patient has no other complaints. Hospital Course: #Chest pain concerning for unstable angina # ASCVD (s/p EDEN to RCA 07/2019 ; prior PCI with EDEN RCA and Lcx) # HTN # HLD Samy Patricio Jr. presented as hospital transfer from [facility] for chest pain concerning for unstable angina. At [facility], Troponin negative and EKG without ischemic changes though chest pain at rest without relief of nitro x 3 on 10/04/22. He was loaded with ASA 325mg x1 and clopidogrel (10/04/22), and IV heparin with resolution of chest pain. Home metoprolol and high intensity atorvastatin continued. Transferred to [facility] [place] for further workup which included TTE 10/05/2022 showing preserved LVEF without regional WMAs. C 10/05/2022 showing no new obstructive disease and patent prior stents. Cath access site remained stable following procedure. Ambulated post cath without angina. Patient and preferred to be discharged night of [facility]. Follow up with Dr. Kingston as scheduled # DMT2 Held home Jardiance 10mg daily on admission. He was continued on insulin long acting 40 U nightly (usually takes 80U nightly but is NPO) with meal time SSI and correction bolus SSI for additional coverage. He will resume home regimen at discharge. # Active Tobacco User Provided nicotine patch as needed while admitted. Encouraged cessation. # CARLOTA Not compliant with CPAP. Functional and Cognitive Status: Alert and oriented x 3, ambulatory-independent Important Studies and Lab Data: Labs: Lab Results Component Value Date WBC 8.5 10/05/2022 HGB 16.6 (H) 10/05/2022 HCT 51.0 (H) 10/05/2022 PLATELET 203 10/05/2022 No results for input(s): INR in the last 168 hours. Lab Results Component Value Date NA 137 10/05/2022 K 4.2 10/05/2022 CL 98 10/05/2022 CO2 31 10/05/2022 BUN 18 10/05/2022 CREATININE 1.35 10/05/2022 No results for input(s): TSH in the last 7068 hours. Recent Labs 10/05/22 0104 HA1C 7.4* Recent Labs 10/04/22 2156 10/04/22 1840 TROPONINTHS 16 17 Lab Results Component Value Date CHLPL 133 10/05/2022 HDL 32 10/05/2022 CHOLHDL 4.2 10/05/2022 TRIG 355 10/05/2022 LDLCHOL 33 08/06/2019 LDLDIRECT 61 10/05/2022 Pending Studies and Lab Data: None Discharge Conditions/Prognosis: Stable Discharge to: Home Updated Allergies/ADRs: Allergies Allergen Reactions Venlafaxine Doxycycline Nausea And Vomiting Other [Unclassified Drug] Nausea And Vomiting Had an allergic reaction to an antibiotic but does not know the name Immunizations Given this Hospitalization: Immunization History Administered Date(s) Administered Hepatitis B Vaccine, unspecified formulation 06/07/2005 Pneumococcal Polyvalent 23 07/14/2006 Td, adult 03/30/2005 Discharge Medications: Your Medications Continued medications, unchanged Dose Details aspirin EC 81 mg EC (DR) tablet Take 81 mg by mouth Daily. 81 mg Refills: 0 atorvastatin 80 mg tablet Commonly known as: Lipitor Take 1 tablet by mouth every evening. 80 mg Quantity: 90 tablet Refills: 3 empagliflozin 10 mg tablet Commonly known as: Jardiance Take 25 mg by mouth daily. 25 mg Refills: 0 pucqsihbomy-mtvdvqfaydmh-ovgqpgxrjt 100-62.5-25 mcg Commonly known as: Trelegy Ellipta 1 puff inhaled once a day Refills: 0 folic acid 1 mg tablet Commonly known as: Vitamin B9 Take 1 tablet by mouth daily. 1,000 mcg Quantity: 90 tablet Refills: 3 humaLOG KwikPen 100 unit/mL Insulin Pen 200 Units. Generic drug: insulin lispro 200 Units Refills: 0 insulin needles (disposable) 31 gauge x 3/16 Needle Refills: 0 Lantus Solostar U-100 Insulin 100 unit/mL (3 mL) pen 80 Units. Generic drug: insulin glargine 80 Units Refills: 0 metoprolol succinate XL 100 mg ER 24 hr tablet Commonly known as: Toprol-XL Take 0.5 tablets by mouth daily. 50 mg Refills: 0 nicotine 21 mg/24 hr Patch 24 hr Commonly known as: Nicoderm CQ Change 2 patches on the skin daily. 2 patch Quantity: 28 patch Refills: 0 nitroGLYcerin 0.4 mg sublingual tablet Commonly known as: Nitrostat PLACE 1 TABLET UNDER TONGUE EVERY 5 MINUTES DIRECTED Refills: 3 OneTouch Verio Flex meter Misc TEST BLOOD GLUCOSE TWICE A DAY Generic drug: Blood-Glucose Meter Refills: 0 OneTouch Verio test strips Strip TEST BLOOD GLUCOSE TWICE A DAY Generic drug: blood sugar diagnostic strips Refills: 0 pantoprazole EC [address] tablet Commonly known as: Protonix Take 1 tablet by mouth 2 times daily. 40 mg Quantity: 90 tablet Refills: 3 tamsulosin 0.4 mg capsule Commonly known as: Flomax Take by mouth. Refills: 0 thiamine 100 mg Commonly known as: Vitamin B-1 Take 1 tablet by mouth daily. 100 mg Quantity: 30 tablet Refills: 3 torsemide 20 mg tablet Commonly known as: Demadex 60 mg daily. 60 mg Refills: 0 Smoking Status at Discharge: Social History Tobacco Use Smoking Status Every Day Packs/day: 1.00 Years: 40.00 Pack years: 40.00 Types: Cigarettes Smokeless Tobacco Never Instructions Given to Patient at Discharge: Patient Instructions Anti-coagulation: N/A Call your doctor if: Chest pain, dyspnea, pain or swelling in legs occurs, or for weight gain of 2 pounds overnight or 5pounds in 5 days. If you have non-emergent questions, prior to your follow-up visit call: Monday-Monday between the hours of 8A-5PM please call the Cardiology Clinic [phone] to speak with a nurse. All other hours please call the [facility] [phone] and ask to speak to the flight engineer performance qualified on-call. Return to work: One week Driving: No driving for 48 hours after cath Follow up Appointments: Doctor Where Phone # Date Time PCP Karen Barbosa MD [address] [place] [address] 10/12/2022 11 AM Cardiology Padmini Kingston MD [facility] Cardiology [phone] 10/18/2022 11 AM Home oxygen therapy: N/A Arrangements for VNA/home care: N/A General Instructions None Future Appointments and Orders Future Appointments and Orders Future Appointments Provider Department Dept Phone 03/09/2023 10:40 AM Ramiro, Tania, OD; DILATION AND TEST, RAMIRO; TECH, RAMIRO [facility]hthalmologyat [facility] [place] Arrive at: Anesthesiology Technologist Area [phone] Discharge References/Attachments None Anny Ely PA-C 10/05/2022 documented in this encounter Discharge Instructions * Patient Instructions* Anny Ely PA - 10/05/2022 9:10 AM EDT Anti-coagulation: N/A Call your doctor if: Chest pain, dyspnea, pain or swelling in legs occurs, or for weight gain of 2 pounds overnight or 5pounds in 5 days. If you have non-emergent questions, prior to your follow-up visit call: Monday-Monday between the hours of 8A-5PM please call the Cardiology Clinic [phone] to speak with a nurse. All other hours please call the [facility] [phone] and ask to speak to the flight engineer performance qualified on-call. Return to work: One week Driving: No driving for 48 hours after cath Follow up Appointments: Doctor Where Phone # Date Time PCP Karen Barbosa MD [address] [place] [address] 10/12/2022 11 AM Cardiology Padmini Kingston MD [facility] Cardiology [phone] 10/18/2022 11 AM Home oxygen therapy: N/A Arrangements for VNA/home care: N/A documented in this encounter Medications at Time of Discharge Medication Sig Dispensed Refills Start Date End Date acetaminophen (Tylenol) 325 mg tablet every 6 hours as needed. 06/27/2019 metoprolol succinate XL (Toprol-XL) 100 mg ER 24 hr tablet Take 0.5 tablets by mouth daily. 10/05/2022 torsemide (Demadex) 20 mg Tablet 40 mg daily. 01/19/2022 empagliflozin (Jardiance) 10 mg Tablet Take 25 mg by mouth daily. OneTouch Verio test strips Strip TEST BLOOD GLUCOSE TWICE A DAY 06/23/2020 OneTouch Verio Flex meter Misc TEST BLOOD GLUCOSE TWICE A DAY 06/23/2020 ftjenxsxmhz-bwtgerecb-kw lanter 100-62.5-25 mcg Disk with Device Inhale 1 puff into the lungs daily. Trelligy Ellipta Lantus Solostar U-100 Insulin pen 80 Units. 08/19/2020 humaLOG KwikPen 100 unit/mL Insulin Pen 200 Units. 09/08/2020 insulin needles, disposable, 31 gauge x 3/16 Needle 03/19/2019 tamsulosin (Flomax) 0.4 mg Capsule Take by mouth. 07/20/2020 atorvastatin (Lipitor) 80 mg Tablet Take 1 tablet by mouth every evening. 90 tablet 3 08/07/2019 pantoprazole EC (Protonix) 40 mg Tablet, Delayed Release (E.C.) Take 1 tablet by mouth 2 times daily. 90 tablet 3 08/07/2019 folic acid (Folvite) 1 mg Tablet Take 1 tablet by mouth daily. 90 tablet 3 08/08/2019 nicotine (NICODERM CQ) 21 mg/24 hr Patch 24 hr Change 2 patches on the skin daily. 28 patch 08/08/2019 thiamine (Vitamin B1) Take 1 tablet by mouth daily. 30 tablet 3 08/08/2019 nitroGLYcerin (NITROSTAT) 0.4 mg Tablet, Sublingual PLACE 1 TABLET UNDER TONGUE EVERY 5 MINUTES DIRECTED 3 11/23/2018 aspirin 81 mg Tablet, Delayed Release (E.C.) Take 81 mg by mouth Daily. 08/27/2017 documented as of this encounter Progress Notes * Yosef Wilkes MD - 10/05/2022 7:40 AM EDT Images from the original note were not included. CARDIOLOGY APP2 - [facility] DAILY PROGRESS NOTE Page [phone] to reach a provider 03/10 Admit Date: 10/04/2022 Encounter Date October 05, 2022 Anticipated Discharge Date: Hospital Day: 1 Active Hospital Problems Diagnosis Unstable angina Resolved Hospital Problems No resolved problems to display. 24 Hour Events/Subjective: No chest pain currently Reported chest pain at rest x 2 different episodes prior to presentation Chest pain at rest while in the ER yesterday Overnight no acute events and remains HDS Medications: Scheduled Meds: sodium chloride 0.9 % (flush) 5 mL Intravenous BID atorvastatin 80 mg Oral QPM folic acid 1 mg Oral Daily metoprolol succinate XL 100 mg Oral Daily pantoprazole EC 40 mg Oral BID thiamine 100 mg Oral Daily budesonide-formoteroL 2 Inhalation Inhalation (R) BID tiotropium bromide 2 puff Inhalation Daily insulin lispro 0-8 Units Subcutaneous TID WC sodium chloride 0.9 % (flush) 5 mL Intravenous BID nicotine 1 patch Transdermal Daily And Patch Verification 1 patch Transdermal BID clopidogreL 75 mg Oral Daily aspirin EC 81 mg Oral Daily insulin lispro 2-12 Units Subcutaneous Q4H YAW insulin glargine (Lantus;Semglee) (100 unit/mL) subcutaneous injection 40 Units Subcutaneous Nightly Continuous Infusions: heparin (porcine) infusion 1,250 Units/hr (10/05/22 0151) PRN Meds:.acetaminophen, heparin (porcine) infusion AND heparin (porcine), sodium chloride 0.9 % (flush), lidocaine, nitroGLYcerin, glucose 40% oral geL OR dextrose 10% OR glucagon, sodium chloride 0.9 % (flush) Objective: Last value Range last 24 hrs Temp: 36.5 ??C (97.7 ??F) Temp: [36.4 ??C (97.6 ??F)-36.8 ??C (98.2 ??F)] Heart Rate: 70 Heart Rate from SpO2: 70 bpm Heart Rate: [58-76] BP: 108/72 BP: (104-124)/(54-86) Resp: 20 Resp: [10-20] SpO2: 92 % SpO2: [89 %-97 %] Weight: 134.8 kg (297 lb 3.2 oz) Admit weight: 134.45 kg Patient Vitals for the past 168 hrs: Weight 10/05/22 0405 134.8 kg (297 lb 3.2 oz) 10/04/22 1800 134.4 kg (296 lb 6.4 oz) Intake/Output Summary (Last 24 hours) at 10/05/2022 0834 Last data filed at 10/05/2022 0749 Gross per 24 hour Intake -- Output 0 ml Net 0 ml Physical Exam: Physical Exam Constitutional: Appearance: Normal appearance. He is obese. HENT: Head: Normocephalic and atraumatic. Mouth/Throat: Mouth: Mucous membranes are moist. Eyes: Extraocular Movements: Extraocular movements intact. Pupils: Pupils are equal, round, and reactive to light. Cardiovascular: Rate and Rhythm: Normal rate and regular rhythm. Pulses: Normal pulses. Heart sounds: Normal heart sounds. No murmur heard. No gallop. Pulmonary: Effort: Pulmonary effort is normal. No respiratory distress. Breath sounds: Normal breath sounds. No wheezing or rales. Abdominal: General: Bowel sounds are normal. There is no distension. Palpations: Abdomen is soft. Tenderness: There is no abdominal tenderness. Comments: Protuberant abdomen Musculoskeletal: General: Normal range of motion. Cervical back: Normal range of motion and neck supple. Right lower leg: No edema. Left lower leg: No edema. Skin: General: Skin is warm and dry. Neurological: General: No focal deficit present. Mental Status: He is alert and oriented to person, place, and time. Mental status is at baseline. Labs: Recent Labs 10/05/2210310/04/222155 WBC 8.5 8.2 HGB 16.6* 17.1* HCT 51.0* 52.6* PLATELET 203 220 MCV 90.6 90.7 Recent Labs 10/04/22 1840 NA 140 CL 98 CO2 31 K 3.4* MAGNESIUM 1.07 CALCIUM 9.4 BUN 20 CREATININE 1.54* Coags No results for input(s): INR, PT, PTT, DDIMER in the last 168 hours. Cardiac Markers Recent Labs 10/04/226 10/04/22 1840 TROPONINTHS 16 17 PROBNP -- 40 Endocrine Recent Labs 10/05/22103 HA1C 7.4* Recent Labs 10/05/22103 CHLPL 133 TRIG 355 HDL 32 CHOLHDL 4.2 Recent Labs 10/05/22 0732 10/05/22 0408 10/05/22 0141 10/04/22 2338 10/04/22 2135 10/04/22 1843 10/04/22 1840 GLUCOSE -- -- -- -- -- -- 75 POCGLU 151 179 196 292* 344* 80 -- Telemetry: I have personally reviewed and interpreted the telemetry from the last 24 hours. Resultsshow SB 50bpm - NSR 70bpm. Imaging: LHC 10/05/22: pending TTE 10/05/22: pending Assessment: Samy Patricio Jr. is a 56 y.o. male with a PMH of ASCVD (s/p EDEN to RCA 07/2019 ; prior PCI with EDEN RCA and Lcx), DMT2, HTN, HLD, active tobacco smoker, CARLOTA (non-compliant with CPAP) who presents as hospital transfer from [facility] for unstable angina. Troponin negative and EKG without ischemic changes though chest pain at rest without relief of nitro x 3 on 10/04/22. Now s/p ASA, loaded w/ Plavix (10/04/22), and IV heparin with resolution of chest pain. Plan for TTE and LHC today. Plan: #Unstable Angina C/w heparin gtt C/w ASA 81mg daily C/w Plavix 75mg daily C/w Lipitor 80mg daily C/w Metoprolol Succinate 100mg daily Trop 16 - 17 EKG at OSH without acute ST changes NPO for LHC today Formal TTE ordered A1c 7.2% ; LDL 61 #HTN/HLD C/w Metoprolol as above C/w statin as above Home Torsemide 20mg daily on hold #DMT2 C/w insulin long acting 40 U nightly (usually takes 80U nightly but is NPO) C/w meal time SSI and correction bolus SSI Holding home Jardiance 10mg daily #Active Tobacco User C/w nicotine patch Encouraged cessation #CARLOTA Not compliant with CPAP C/w nocturnal O2 as needed Diet: NPO diet (Give Meds) DVT Prophylaxis: SCD Code status: Attempt Cardiopulmonary Resuscitation - Inpatient Disposition: Discharge Location: PT: OT: PCP Robinson Vazquez, POSTMASTER [phone] Anny Ely PA-C 10/05/2022 Cardiology Staff I shared this visit with Ms. Ely. My role was to review the history, exam, laboratory, and imaging and to formulate the assessment and plan. I performed the medical decision making. In brief, patient with advanced chronic metabolic disease (DM2 on high doses of insulin, severe obesity, HTN, HLD, CARLOTA - nonadherent to CPAP, CKD 3), ASCVD status post prior RCA and LCX PCI, heavy and current smoking referred from OSH for unstable angina. Has had accelerating symptoms over past several days, but chest pain free at rest on interview this morning. For early invasive management, medical therapies, TTE for LVEF assessment. Yosef Wilkes MD, PRANAV, FACC, FACP, FASE Cardiovascular Medicine documented in this encounter H&P Notes * Teddy Willett MD - 10/04/2022 7:01 PM EDT Cardiology Admission H&P Patient Name: Samy Patricio Jr. Date of : 1965 Age: 56 y.o. Hospital Admit Date: 10/04/2022 Inpatient Attending: Yosef Wilkes MD PCP: Robinson Vazquez APRN Presenting Diagnosis/Chief Complaint: chest pain Active Problem List: Active Hospital Problems Diagnosis Unstable angina Resolved Hospital Problems No resolved problems to display. History of Present Illness: 56 yo male with PMH of CAD with 3 stents in the past, Insulin dependent type 2 diabetes, hypertension, hyperlipidemia comes into the ED at [facility] for chest pain. Patient reports having chest pain around 7 am today. Chest pain was described as pressure like, substernal, partially relieved with nitro. Patient states this pain is similar to the time he had his first he art attack. In the ed patient was found to have normal troponin x1, and normal EKG. Patient was started on heparin ip and was loaded with aspirin and plavix and patient was transferred to [facility] [place] [place] for unstable angina. Patient still reports having 2/10 chest pain currently. Patient reports no fevers, no chills, no nausea, no vomiting, no diarrhea. Patient has no other complaints. Past Medical History: Past Medical History: Diagnosis Date Asthma Diaz's esophagus Chronic midline low back pain without sciatica 02/08/2017 COPD (chronic obstructive pulmonary disease) Diabetes Gastroesophageal reflux Hyperlipidemia Kidney failure H/O ACUTE KIDNEY INJURY Mental health problem DEPRESSION Myocardial infarction 08/2017 NSTEMI Peptic ulcer disease PEPTIC ULCER DISEASE Post-operative nausea and vomiting Had scope at [facility] [place] [place] and had vomiting after Surgical History/Problems: Past Surgical History: Procedure Laterality Date CATARACT REMOVAL Right 2017 CORONARY ANGIOPLASTY WITH STENT PLACEMENT 08/2017 PRO UPPER GI ENDOSCOPY, BIOPSY 04/26/2011 EGD WITH BIOPSY performed by KIRSTEN DAMON at [facility] ENDOSCOPY PRO UPPER GI ENDOSCOPY, BIOPSY N/A 09/27/2018 UPPER GASTROINTESTINAL ENDOSCOPY,WITH BIOPSY SINGLE OR MULTIPLE (WRVU 2.49) performed by Luc Hdz MD at [facility] ENDOSCOPY PRO UPPER GI ENDOSCOPY, BIOPSY N/A 01/26/2021 EGD WITH BIOPSY (WRVU 2.49) performed by Nathaniel Azevedo MD at [facility] ENDOSCOPY ROTATOR CUFF REPAIR Left Significant Family History: Family History Problem Relation Age of Onset Myocardial Infarction Mother 50 Myocardial Infarction Father 50 Myocardial Infarction Brother 40 Glaucoma Neg Hx Macular Degeneration Neg Hx Retinal Detachment Neg Hx Amblyopia Neg Hx Social History: Social History Socioeconomic History Marital status: Spouse name: Not on file Number of children: Not on file Years of education: Not on file Highest education level: Not on file Occupational History Not on file Tobacco Use Smoking status: Every Day Packs/day: 1.00 Years: 40.00 Pack years: 40.00 Types: Cigarettes Smokeless tobacco: Never Vaping Use Vaping Use: Never used Substance and Sexual Activity Alcohol use: Yes Alcohol/week: 7.0 - 14.0 [...] on file Housing Stability: Not on file REVIEW OF SYSTEMS: Review of Systems Constitutional: Negative. Negative for fever. HENT: Negative. 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 Respiratory: Negative. Negative for cough, shortness of breath, wheezing and stridor. Cardiovascular: Positive for chest pain. Negative for palpitations and leg swelling. Gastrointestinal: Negative. Negative for diarrhea, nausea and vomiting. Endocrine: Negative. Negative for cold intolerance and heat intolerance. Genitourinary: Negative. Musculoskeletal: Negative. Negative for back pain, gait problem and neck pain. Skin: Negative. Negative for rash. Neurological: Negative. Negative for headaches. Psychiatric/Behavioral: Negative. Medications: Medications Prior to Admission Medication Sig Dispense Refill Last Dose torsemide (Demadex) 20 mg Tablet 60 mg daily. empagliflozin (Jardiance) 10 mg Tablet Take 25 mg by mouth daily. OneTouch Verio test strips Strip TEST BLOOD GLUCOSE TWICE A DAY OneTouch Verio Flex meter Misc TEST BLOOD GLUCOSE TWICE A DAY [id number]-[id number] 100-62.5-25 mcg Disk with Device 1 puff [...] tablet by mouth daily. 30 tablet 3 metoprolol succinate XL (Toprol-XL) 100 mg Tablet Sustained Release 24 hr Take 1 tablet by mouth daily. (Patient taking differently: Take 50 mg by mouth daily.) 30 tablet 3 nitroGLYcerin (NITROSTAT) 0.4 mg Tablet, Sublingual PLACE 1 TABLET UNDER TONGUE EVERY 5 MINUTES DIRECTED 3 aspirin 81 mg Tablet, Delayed Release (E.C.) Take 81 mg by mouth Daily. Allergies: Allergies Allergen Reactions Venlafaxine Doxycycline Nausea And Vomiting Other [Unclassified Drug] Nausea And Vomiting Had an allergic reaction to an antibiotic but does not know the name PHYSICAL EXAM: Last set of vital signs: BP 115/86 (BP Location (NBP): Left arm, Patient Position: Sitting) Pulse59 Temp 36.8 ??C (98.2 ??F) (Oral) Wt 134.4 kg (296 lb 6.4 oz) SpO2 92% BMI 40.20 kg/m?? Physical Exam Constitutional: Appearance: Normal appearance. He is obese. HENT: Head: Normocephalic and atraumatic. Eyes: Extraocular Movements: Extraocular movements intact. Conjunctiva/sclera: Conjunctivae normal. Cardiovascular: Rate and Rhythm: Normal rate and regular rhythm. Heart sounds: No murmur heard. No friction rub. No gallop. Pulmonary: Breath sounds: Normal breath sounds. Abdominal: General: Abdomen is flat. Bowel sounds are normal. Palpations: Abdomen is soft. Musculoskeletal: General: Normal range of motion. Cervical back: Normal range of motion and neck supple. Skin: General: Skin is warm. Neurological: General: No focal deficit present. Mental Status: He is alert and oriented to person, place, and time. Mental status is at baseline. Psychiatric: Mood and Affect: Mood normal. Behavior: Behavior normal. Thought Content: Thought content normal. Diagnostics: EKG: sinus rhythm 64, with no st elevation, no st depressions, no t wave inversion CXR: no acute cardiopulmonary disease LABS: Recent Results (from the past 24 hour(s)) POCT Glucose Result Value Ref Range POC Glucose 80 65 - 199 mg/dL ASSESSMENT: 56 yo male with PMH of cad, Hypertenison, hld, IDDM comes into the hospital for chest pain. EKG was normal, troponin was normal x1. 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 Patient reports no back pain or wrist pain O: No active bleeding noted at cath site, right radial. No hematoma, or tenderness noted. Radial pulse intact. Last value Range last 8 hrs Temperature Temp: 36.6 ??C (97.9 ??F) Temp: [36.6 ??C (97.9 ??F)] Heart Rate Heart Rate: 62 Heart Rate: [56-70] Blood Pressure BP: 117/67 BP: (102-119)/(66-74) Respiratory Rate Resp: 18 Resp: [12-18] SpO2 SpO2: 97 % SpO2: [92 %-99 %] A/P. Post cardiac cath without complications. Teddy Willett MD * Initial Assessments - Altaf Lima RN - 10/05/2022 2:57 PM EDT Office of Care Management Initial Assessment Altaf Lima RN reviewed record and discussed patient with Care Team. Source of Information: Team, bedside nurse, medical record, and Patient, Spouse. Introduced self/reviewed role; services accepted. Admitted From: Transfer from another hospital Location: [facility] Reason for Hospitalization: chest pain Covid Vaccination Status: 1st, 2nd & booster Last COVID test: na Past medical History: Past Medical History: Diagnosis Date Asthma Diaz's esophagus Chronic midline low back pain without sciatica 02/08/2017 COPD (chronic obstructive pulmonary disease) Diabetes Gastroesophageal reflux Hyperlipidemia Kidney failure H/O ACUTE KIDNEY INJURY Mental health problem DEPRESSION Myocardial infarction 08/2017 NSTEMI Peptic ulcer disease PEPTIC ULCER DISEASE Post-operative nausea and vomiting Had scope at [facility] [place] and had vomiting after Hospitalizations Within the Past 30 Days: no previous admission in last 30 days Current Decision-Making Capacity: Self If AD's have not been completed the following surrogate would be surrogate decision maker per [place] surrogate decision making law. (Only good for 180 days) Any patient receiving care in [place] must abide by [place] law. The hierarchy for surrogate decision making is: (a) Patient???s spouse or civil union partner unless there is a divorce proceeding, separation agreement, or restraining order limiting that person???s relationship with the patient. (b) Any adult son or daughter of the patient. (c) Either parent of the patient. (d) Any adult brother or sister of the patient. (e) Any adult grandchild of the patient. (f) Any grandparent of the patient. (g) Any adult aunt, uncle, niece, or nephew of the patient. (h) A close friend of the patient. (i) The agent with financial power of state's attorney or a conservator appointed in accordance with RSA 464-A. (j) The guardian of the patient???s estate. Advance Care Planning: Attempt Cardiopulmonary Resuscitation - Inpatient <no information> -Advanced Directive: No, declines (spouse would be decision maker) Current Coping/Education/Information Needs: none identified Current Functional Ability: Independent Functional Status Prior to Admission: Independent Prior ADLs & IADLs: Independent with all ADLs & IADLs Home Environment: Others in the home: spouse, pet(s). Current Living Arrangements: home/apartment/condo. Accessibility Concerns:one level; no BM; 2 stairs to enter. Resource / Environmental Concerns: Resource/Environmental Concerns: none Current DME: none Home Address confirmed as: [address] [address] Social & Family Supports: All names listed below confirmed with patient as current and correct Extended Emergency Contact Information Primary Emergency Contact: Danica Patricio Address: [address] [address] [facility] Relation: Spouse Secondary [place]: [place] [address] [facility] Relation: Child Current Care Provided by: self Provides Primary Care For: no one Caregiver if needed: spouse Quality of Family relationships: helpful, involved, supportive Community Resources being provided currently: none Behavioral Health History: anxiety per patient; not treated Substance Use/Abuse confirmed: ETOH: occasional Social History Tobacco Use Smoking Status Every Day Packs/day: 1.00 Years: 40.00 Pack years: 40.00 Types: Cigarettes Smokeless Tobacco Never 0 No problems reported 1-2 Low level 3-5 Moderate level 6-8 Substantial level 9- 10 Severe level 0 to 7 points: Low risk 8 to 15 points: Medium risk 16 to 19 points: High risk 20 to 40 points: Addiction likely Other Pertinent/Service Specific Information: na Health/Prescription Coverage: Primary Insurance: MEDICARE Payor: MEDICARE / Plan: MEDICARE PART A & B / Product Type: *No Product type* / Secondary Insurance: [employer] ONLY if patient has Medicare A&B - Does this patient have secondary insurance?: Yes ; Prescription Coverage: Yes Preferred Pharmacy: [facility] [address] [address] Status: Patient is a : No Primary Care Provider confirmed: Karen Barbosa MD [phone] Patient/Caregiver Goals of Treatment: return home Potential Needs for Transition of Care: none Agency Referrals: Not Applicable Transportation: no concerns Transportation Anticipated: family or friend will provide Concerns to be Addressed: no discharge needs identified Assessment: Patient is admitted to Cardiology service for NSTEMI Plan: Cath today. Discharge home when ready. A member of the Care Management team will continue to monitor progress, follow for continuity of care and assist with transition of care planning. Altaf Lima RN * Plan of Care - Anny Ely PA - 10/05/2022 7:31 AM EDT Images from the original note were not included. Cardiac cath Pre Procedure Note The indications, expected benefits and potential risks of heart catheterization were reviewed in detail with the patient. The potential for , heart attack, stroke, kidney failure, hemorrhage, allergic reaction, vascular complications and infection were reviewed in detail. The possibility of stenting and other percutaneous intervention with associated risk was reviewed. The possible need for emergent coronary artery bypass surgery was reviewed. After a discussion about the above, and havinganswered all questions posed, the patient was provided with a consent which was reviewed and signed. ASA: 3: Patient with severe systemic disease Mallampati: III: only the base of the uvula can be seen Sedation Plan: moderate (conscious sedation) Assessment and Plan: Proceed with cardiac cath today, see progress note from today for further details. ISABELLE Morataya 10/05/2022 Pager [phone] documented in this encounter Plan of Treatment Upcoming Encounters Date Type Department Care Team (Late st Contact Info) Description 03/20/2024 10:00 AM EST Office Visit [place] [address] Tania Gates OD [facility] [place] [address] documented as of this encounter Procedures Procedure Name Priority Date/Time Associated Diagnosis Comments POCT GLUCOSE Routine 10/05/2022 7:49 PM EDT POCT GLUCOSE Routine 10/05/2022 5:24 PM EDT CARDIAC CATHETERIZATION Routine 10/06/19 5:15 PM EDT ECHO COMPLETE W CONTRAST Routine 10/05/2022 12:20 PM EDT Unstable angina POCT GLUCOSE Routine 10/05/2022 11:45 AM EDT HEPARIN (UNFRACTIONATED) LEVEL Timed 10/05/2022 8:43 AM EDT BASIC METABOLIC PANEL Routine 10/05/2022 8:43 AM EDT POCT GLUCOSE Routine 10/05/2022 7:32 AM EDT POCT GLUCOSE Routine 10/05/2022 4:08 AM EDT POCT GLUCOSE Routine 10/05/2022 1:41 AM EDT HEPARIN (UNFRACTIONATED) LEVEL Timed 10/05/2022 1:04 AM EDT HEMOGRAM Routine 10/05/2022 1:04 AM EDT DIFFERENTIAL, AUTOMATED Routine 10/06/19 1:04 AM EDT CBC (WITH DIFF) Routine 10/05/2022 1:04 AM EDT TRIGLYCERIDE Routine 10/05/2022 1:04 AM EDT LDL CHOLESTEROL, DIRECT Routine 10/06/19 1:04 AM EDT HDL/CHOL PROFILE Routine 10/05/2022 1:04 AM EDT HEMOGLOBIN A1C Routine 10/05/2022 1:04 AM EDT HC GLUCOSE FASTING Routine 10/05/2022 1: 04 AM EDT POCT GLUCOSE Routine 10/04/2022 11:38 PM EDT TROPONIN - SERIES STAT 10/04/2022 9:5 6 PM EDT HEMOGRAM Routine 10/04/2022 9:56 PM EDT DIFFERENTIAL, AUTOMATED Routine 10/05/19 9:56 PM EDT CBC (WITH DIFF) Routine 10/04/2022 9:56 PM EDT POCT GLUCOSE Routine 10/04/2022 9:35 PM EDT POCT GLUCOSE Routine 10/04/2022 6:43 PM EDT TROPONIN - SERIES STAT 10/04/2022 6:4 0 PM EDT HEPARIN (UNFRACTIONATED) LEVEL Timed 10/04/2022 6:40 PM EDT PRO-BRAIN NATRIURETIC PEPTIDE STAT 10/04/2022 6:40 PM EDT MAGNESIUM STAT 10/04/2022 6:40 PM EDT BASIC METABOLIC PANEL STAT 10/04/2022 6:40 PM EDT documented in this encounter Results * POCT Glucose (10/05/2022 7:49 PM EDT) Glucose, POC 181 65 - 199 mg/dL [facility] Comment: Supplemental ranges: <140 mg/dL before meals <180 mg/dL all other times of the day Blood 10/05/2022 7:49 PM EDT 10/05/2022 7:49 PM EDT Yosef Wilkes MD POINT OF CARE TEST O LAIERASERGIO Performing Organization Address [facility]/ZIP Co de Phone Number [facility] [place] [address] * POCT Glucose (10/05/2022 5:24 PM EDT) Glucose, POC 112 65 - 199 mg/dL [facility] Comment: Supplemental ranges: <140 mg/dL before meals <180 mg/dL all other times of the day Blood 10/05/2022 5:24 PM EDT 10/05/2022 5:24 PM EDT Yosef Wilkes MD POINT OF CARE TEST O SAEID Performing Organization Address City/[facility]/ZIP Co de Phone Number [facility] [place] [address] * CARDIAC CATHETERIZATION (10/05/2022 5:15 PM EDT) Anatomical Region Laterality Modality Other Narrative 10/05/2022 5:57 PM EDT ?[facility] ? Cardiac Catheterization/Intervention Report ? Patient Name: Samy Patricio Jr. S. ? Procedure Date: 10/05/2022 ? A #: [id number] ? Primary Physician: Amanda Aleman I ? Case #: [id number] ? File Name: [id number] ? Catheterization Order Number: [id number] ? [facility] ? Final Report [place], [place] ? Patient Name: ? Samy Jr. S. Sheng ?ID#: ?[id number] ? : ?1965 ? Procedure Date: ? October 05, 2022 ?Case #: ? [id number] ? Room: ? 1 ? Case Physician: ? Amanda Aleman M.D. ? Start: ?16:47 ?Fellow: ? Yves Fernandez M.D. ?Admission: ??10/04/2022 ?Nigel Hyman M.D. ? Referring Physician: ??Chai Dailey ? Procedures: ?* Coronary Angiography ?* Left Heart Catheterization ? History ?Samy Patricio is a 56 year old man. He has hypertension. The ?patient's smoking status is Current with Current - Every Day frequency, ?using cigarettes. Cigarette use is Heavy (>=10/day). He has ?hypercholesterolemia managed with lipid therapy. The patient has diabetes ?managed with oral medication. He has sequelae from diabetes. The patient ?has a prior history of coronary artery disease. He is status post a ?recent myocardial infarction as well as a remote myocardial infarction. ?The patient had a remote coronary intervention procedure. Prior to the ?initiation of this procedure, the patient was designated as ASA Class ?III. The CSHA clinical frailty scale is 4: Vulnerable. ? Diagnostic Tests: ?Electrocardiography: ? EKG was assessed by ECG. EKG was Abnormal. EKG showed ST Deviation ? >= 0.5 mm. ?Medications Prior to Procedure: ? Aspirin, Beta Alejandra and Statin. ? Indications for Diagnostic Cath: ?The priority of the diagnostic procedure was Urgent. 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 Chest pain symptom ?assessment was: Atypical Angina. ? Technique: ?A 6 SLFr sheath was inserted in the right radial artery utilizing the ?Seldinger technique. The left coronary artery was injected utilizing a ?6Fr JL 3.5 catheter. A 6Fr JR 4 catheter was used to inject the right ?coronary artery. Left ventricular pressure was performed utilizing a 6Fr ?JR 4 catheter. 6,000 units of heparin were administered. A total of 100cc ?of Omnipaque were opened, 92cc of Omnipaque were administered and 8cc of ?Omnipaque were wasted. Radiation: Fluoro time was 4.8 minutes, dose area ?product was 58,600 mGYcm2 and air kerma was 787 mGY. See the case log for ?additional details. ?The patient received the following medications prior to and during the ?procedure: ? Unfractionated Heparin and Clopidogrel. ? Hemodynamics: ?Left Heart Pressures ? Resting: ? Syst Diast ? EDP ?a ?v ? m ?Ao 106 ?? 62 ?80 ?LV 106 ? 15 ? Coronary Angiography: ?Dominance: Right ?Left Main ? The left main was normal, free of disease. ?Left Anterior Descending ? There was mild diffuse (<=25% stenosis) disease of the entire vessel ? segment of the left anterior descending artery (LAD). ??The LAD was ? large. ?Left Circumflex ? There was mild diffuse (<=25% stenosis) disease of the entire vessel ? segment of the left circumflex artery (LCX). ??The LCX was large. ? The previously placed stent is patent. ?Right Coronary Artery ? There was mild diffuse (<=25% stenosis) disease of the entire vessel ? segment of the right coronary artery (RCA). ??The RCA was large. ??The ? mid segment of the RCA had a single discrete 50% stenosis. ??The ? previously placed stent is patent. ? Vascular Access: ?Vascular Access Management: ? Mechanical Compression of the right radial artery access site was ? performed. ? Conclusions: ?* One vessel coronary artery disease (RCA) ? Complications/Events: ?The patient had no complications during these procedures. ? Post Procedure Fluid Recommendations: ?IV fluid at 405 mL/hr for 4 hours for a total of 1,620 mL. These ?recommendations are made at the time of the procedure. Patient and ?provider preferences or a changing clinical situation may require ?modification of this regimen. ?The attending physician was present for the entire procedure. ?Dr. Amanda Aleman M.D. was present during the moderate sedation ?intraservice time as documented by the sedation nurse. ??Case time = 00:22. ?Dr. Amanda Aleman M.D. performed the coronary angiography and left ?heart catheterization. ? Amanda Aleman M.D. ? Electronically Signed by: Amanda Aleman M.D. ? Report Finalized: 10/05/2022 ??17:51 ? Amanda Carmona MD CARDIAC CATH ALIZAA SERGIO * ECHO COMPLETE W CONTRAST (10/05/2022 12:20 PM EDT) EF 65 HEARTLAB SYSTEM Anatomical Region Laterality Modality Cardiac Other 10/05/2022 11:0 8 AM EDT Narrative 10/05/2022 1:18 PM EDT ? Echocardiogram Report Name: SAMY PATRICIO JR ? Study Date: 10/05/2022 11:08 AMBP: 110/78 mmHg ? Patient Location: L3WB 0365 A : 1965 ? Height: 183 cm ? Account: [id number] Age: 56 yrs ? Weight: 135 kg Gender: Male ?BSA: 2.5 m2 Ordering Physician: YOSEF WILKES Referring Physician: OSCAR ACOSTA Performed By: MOUNA Rollins Reason For Study: Unstable angina Exam Location: [facility]. Interpretation Summary Optison was used for left ventricular opacification but imaging quality remained somewhat limited. Left ventricle is of normal size. Wall thickness is normal. Left ventricular systolic function is normal. The left ventricular ejection fraction is 57% by Hi's biplane. There are no segmental wall motion abnormalities. The right ventricle is of normal size. Right ventricular systolic function is normal. The right atrium is mildly dilated. No significant valve disease. No significant changes compared to fellow's study of last night, right atrium now measured mildly dilated. Procedure Complete-[id number]. Image enhancement Optison was used for left ventricular opacification. Suboptimal quality. There is normal sinus rhythm. Left Ventricle Left ventricle is of normal size. Wall thickness is normal. There is no left ventricular outflow tract obstruction. There is no ventricular septal defect. Left ventricular systolic function is normal. The left ventricular ejection fraction is 57% by Hi's biplane. There are no segmental wall motion abnormalities. Right Ventricle The right ventricle is of normal size. Right ventricular systolic function is normal. Left Atrium The left atrium is normal. There is no evidence for a patent foramen ovale. Right Atrium The right atrium is mildly dilated. Aortic Valve The aortic valve is tricuspid. There is no aortic stenosis. There is no aortic regurgitation. Mitral Valve The mitral valve is structurally normal. There is no mitral stenosis. There is trace mitral regurgitation. Tricuspid Valve The tricuspid valve is structurally normal. There is no tricuspid stenosis. There is trace tricuspid regurgitation. Pulmonic Valve The pulmonic valve is not well visualized. There is no valvular pulmonic stenosis. There is trace pulmonic valve regurgitation. Great Arteries The aortic root is of normal size. No abnormalities are identified. Ascending aorta is normal in size. The pulmonary artery is not well visualized. Venous Inferior vena cava is dilated. Inferior vena cava collapse greater than 50% with respiration. Pericardium/Pleural There is no pericardial effusion. Hemodynamics Pulmonary artery hypertension could not be assessed due to inadequate tricuspid regurgitation jet. The estimated right atrial pressure is 8mmHg. Left ventricular filling pressure is indeterminate. Ejection Fraction ?2D Measurements ? Volumes EF(MOD-bp): 56.5 % ?IVSd: 0.98 cm ?LAV(MOD- bp) Indexed: ?LVIDd: 5.2 cm ?LVIDs: 4.2 cm ?32.0 ml/m2 ?LVPWd: 0.89 cm ? RA A4Cs_phl: 22.4 cm2 ? EDV (MOD-bp) Index: 48.1 ?LV mass(C)d: 175.5 grams ? ESV (MOD-bp) Index: 20.9 ?LV mass(C)dI: 69.6 grams/m2 ?SV(LVOT): 81.6 ml ?Ao root diam: 3.6 cm ?Ao root diam index: 1.4 ?SI(LVOT): 32.3 ml/m2 ?asc Aorta Diam: 3.4 cm ?LVOT diam: 2.2 cm Doppler LV V1 VTI: 21.2 cm MV E max shubham: 81.6 cm/sec MV A max shubham: 78.6 cm/sec MV E/A: 1.0 MV dec time: 0.16 sec Lat Peak E' Shubham: 9.0 cm/sec E/ e' (lat): 9.0 Med Peak E' Shubham: 8.4 cm/sec E/e' (med): 9.7 E/e' Average: 9.4 I ?WMSI = 1.00 ? % Normal = 100 ?Segments ??Size X - Cannot ?2 - ?4 - ?1-2 ? small Interpret ?1 - Normal ?? Hypokinetic 3 - Akinetic Dyskinetic ?? 3-5 ? moderate 5 - ? 6-14 ?large Aneurysmal ?15-16 ?? diffuse Procedure Note Tariq Guerrero MD - 10/05/2022 Echocardiogram Report Name: SAMY PATRICIO JR Study Date: 1:08 AMBP: 110/78 mmHg Patient Location: [address] : 1965 Height: 183 cm Account: [id number] Age: 56 yrs Weight: 135 kg Gender: Male BSA: 2.5 m2 Ordering Physician: YOSEF WILKES Referring Physician: OSCAR ACOSTA Performed By: MOUNA Rollins Reason For Study: Unstable angina Exam Location: [facility]. Interpretation Summary Optison was used for left ventricular opacification but imaging qualityremained somewhat limited. Left ventricle is of normal size. Wall thickness is normal. Leftventricular systolic function is normal. The left ventricular ejection fraction is 57%by Hi's biplane. There are no segmental wall motion abnormalities. The right ventricle is of normal size. Right ventricular systolic functionis normal. The right atrium is mildly dilated. No significant valve disease. No significant changes compared to fellow's study of last night, rightatrium now measured mildly dilated. Procedure Complete-[id number]. Image enhancement Optison was used for left ventricular opacification. Suboptimal quality. There is normal sinus rhythm. Left Ventricle Left ventricle is of normal size. Wall thickness is normal. There is noleft ventricular outflow tract obstruction. There is no ventricular septaldefect. Left ventricular systolic function is normal. The left ventricular ejectionfraction is 57% by Hi's biplane. There are no segmental wall motionabnormalities. Right Ventricle The right ventricle is of normal size. Right ventricular systolic functionis normal. Left Atrium The left atrium is normal. There is no evidence for a patent foramenovale. Right Atrium The right atrium is mildly dilated. Aortic Valve The aortic valve is tricuspid. There is no aortic stenosis. There is noaortic regurgitation. Mitral Valve The mitral valve is structurally normal. There is no mitral stenosis.There is trace mitral regurgitation. Tricuspid Valve The tricuspid valve is structurally normal. There is no tricuspidstenosis. There is trace tricuspid regurgitation. Pulmonic Valve The pulmonic valve is not well visualized. There is no valvular pulmonicstenosis. There is trace pulmonic valve regurgitation. Great Arteries The aortic root is of normal size. No abnormalities are identified.Ascending aorta is normal in size. The pulmonary artery is not well visualized. Venous Inferior vena cava is dilated. Inferior vena cava collapse greater than50% with respiration. Pericardium/Pleural There is no pericardial effusion. Hemodynamics Pulmonary artery hypertension could not be assessed due to inadequatetricuspid regurgitation jet. The estimated right atrial pressure is 8mmHg. Leftventricular filling pressure is indeterminate. Ejection Fraction 2D Measurements Volumes EF(MOD-bp): 56.5 % IVSd: 0.98 cm LAV(MOD-bp)Indexed: LVIDd: 5.2 cm LVIDs: 4.2 cm 32.0 ml/m2 LVPWd: 0.89 cm RA A4Cs_phl: 22.4cm2 EDV (MOD-bp)Index: 48.1 LV mass(C)d: 175.5 grams ESV (MOD-bp)Index: 20.9 LV mass(C)dI: 69.6 grams/m2 SV(LVOT): 81.6ml Ao root diam: 3.6 cm Ao root diam index: 1.4 SI(LVOT): 32.3ml/m2 asc Aorta Diam: 3.4 cm LVOT diam: 2.2 cm Doppler LV V1 VTI: 21.2 cm MV E max shubham: 81.6 cm/sec MV A max shubham: 78.6 cm/sec MV E/A: 1.0 MV dec time: 0.16 sec Lat Peak E' Shubham: 9.0 cm/sec E/ e' (lat): 9.0 Med Peak E' Shubham: 8.4 cm/sec E/e' (med): 9.7 E/e' Average: 9.4 I WMSI = 1.00 % Normal = 100 SegmentsSize X - Cannot 2 - 4 - 1-2small Interpret 1 - Normal Hypokinetic 3 - Akinetic Dyskinetic 3-5moderate 5 - 6-14large Aneurysmal 15-16diffuse Yosef Wilkes MD ECHO ORDERABLES * POCT Glucose (10/05/2022 11:45 AM EDT) Glucose, POC 147 65 - 199 mg/dL [facility] Comment: Supplemental ranges: <140 mg/dL before meals <180 mg/dL all other times of the day Blood 10/05/2022 11:4 5 AM EDT 10/05/2022 11:45 AM EDT Yosef Wilkes MD POINT OF CARE TEST O RDERABLES [facility] [place] [address] * Basic Metabolic Panel (non-fasting) (10/05/2022 8:43 AM EDT) Glucose 160 65 - 199 mg/dL [facility] Comment:Diabetes: >=200 mg/d L plus symptoms Blood Urea Nitrogen 18 10 - 20 mg/dL [facility] Creatinine 1.35 0.80 - 1.50 mg/dL [facility] Sodium 137 135 - 145 mmol/L [facility] Potassium 4.2 3.5 - 5.0 mmol/L [facility] Comment: Please note: ??Patients with WBC >100,000 may have falsely elevated Potassium levels. ??For accurate Potassium quantification in these patients send serum separator tube (gold top) for subsequent determinations. ??Contact the Clinical Chemistry Laboratory if there are any questions. Chloride 98 98 - 107 mmol/L [facility] Carbon Dioxide 31 22 - 31 mmol/L [facility] Anion Gap 8 5 - 15 mmol/L [facility] Calcium 9.4 8.5 - 10.5 mg/dL [facility] Est Glomerular Filtration Rate 62 >=60 mL/min/1. 73 m?? [facility] Comment: This patient's estimated GFR was [...] Narrative Resulting Agency Comment Spec In Lab Yosef Wilkes MD CHEMISTRY ORDERABLES [facility] [place] [address] * Heparin (unfractionated) Level (10/05/2022 8:43 AM EDT) UF Heparin 0.11 IU/mL [facility] Comment: Heparin (anti-Xa) levels should be determined in a plasma sample that has been drawn 6 hours after a dose change to approximate steady-state for continuous heparin infusions. Indication specific Heparin (anti-Xa) levels based on order set selection: Acute DVT or PE treatment: 0.3 ? 0.7 IU/mL Thrombosis Prevention (eg. atrial fibrillation, dariana-procedural bridging, mechanical valves): 0.3 ? 0.7 IU/mL Acute Coronary Syndrome: 0.3 ? 0.7 IU/mL Stroke Indications: 0.3 ? 0.5 IU/mL Ultra-low intensity (select indications in cardiac surgery): 0.1 ? 0.3 IU/mL Blood 10/05/2022 8:43 AM EDT 10/05/2022 8:58 AM EDT Narrative Resulting Agency Comment Spec In Lab Teddy Willett MD HEMATOLOGY ORDERABLE S [facility] [place] [address] * POCT Glucose (10/05/2022 7:32 AM EDT) Glucose, POC 151 65 - 199 mg/dL [facility] Comment: Supplemental ranges: <140 mg/dL before meals <180 mg/dL all other times of the day Blood 10/05/2022 7:32 AM EDT 10/05/2022 7:32 AM EDT Yosef Wilkes MD POINT OF CARE TEST O RDERABLES [facility] [place] [address] * POCT Glucose (10/05/2022 4:08 AM EDT) Glucose, POC 179 65 - 199 mg/dL [facility] Comment: Supplemental ranges: <140 mg/dL before meals <180 mg/dL all other times of the day Blood 10/05/2022 4:08 AM EDT 10/05/2022 4:08 AM EDT Yosef Wilkes MD POINT OF CARE TEST O RDERABLES [facility] [place] [address] * POCT Glucose (10/05/2022 1:41 AM EDT) Glucose, POC 196 65 - 199 mg/dL [facility] Comment: Supplemental ranges: <140 mg/dL before meals <180 mg/dL all other times of the day Blood 10/05/2022 1:41 AM EDT 10/05/2022 1:41 AM EDT Yosef Wilkes MD POINT OF CARE TEST O RDERABLES Performing Organization Address [facility] Co de Phone Number [facility] [place] [address] * Differential, Automated (10/05/2022 1:04 AM EDT) Neutrophil % 65.7 % [facility] Neutrophil Absolute 5.59 1.70 - 6.10 x10(3)/[facility] Lymph % 21.5 % [facility] Lymphocytes Abs 1.8 0.9 - 3.2 x10(3)/[facility] Monocyte % 8.5 % [facility] Monocyte Abs 0.7 0.3 - 0.9 x10(3)/[facility] Eos % 3.1 % [facility] Eosinophils Abs 0.3 0.0 - 0.4 x10(3)/[facility] Basophil % 0.8 % [facility] Baso Absolute 0.1 0.0 - 0.1 x10(3)/[facility] Immature Gran % 0.40 % [facility] Comment: Immature granulocytes(IG's)percentage and absolute count will include metamyelocytes, myelocytes, and promyelocytes. Blood smears from CBCs yielding IG's will be scanned manually for concordance. If this scan disagrees with the automated IG or if promyelocytes are noted, a manual differential will be performed. Immature Gran Absolute 0.03 0.00 - 0.04 x10(3)/mcL [facility] Blood 10/05/2022 1:04 AM EDT 10/05/2022 1:14 AM EDT Narrative Resulting Agency Comment Spec In Lab Teddy Willett MD HEMATOLOGY ORDERABLE S Performing Organization Address City/[facility]/ZIP Co de Phone Number [facility] [place] [address] * (ABNORMAL) Hemogram (10/05/2022 1:04 AM EDT) White Blood Cell 8.5 4.0 - 9.5 x10(3)/mc L [facility] Red Blood Cell 5.63(H) 4.58 - 5.54 x10(6)/mc L [facility] Hemoglobin 16.6(H) 13.7 - 16.5 g/dL [facility] Hematocrit 51.0(H) 40.5 - 48.5 % [facility] Mean Cell Volume 90.6 82.9 - 93.1 fL [facility] Mean Cell Hemoglobin 29.5 27.5 - 32.1 pg [facility] Mean Cell Hemoglobin Concentration 32.5 32.0 - 35.7 g/dL [facility] Platelet 203 145 - 357 x10(3)/mc L [facility] RDW Standard Deviation 47.6(H) 36.0 - 45.0 fL [facility] RDW coefficient of variation 14.3(H) 11.4 - 13.8 % [facility] Mean Platelet Volume 9.7 7.6 - 12.9 fL [facility] NRBC% auto 0.0 % [facility] NRBC Absolute 0.000 0.000 - 0.000 x10(3)/mc L [facility] Blood 10/05/2022 1:04 AM EDT 10/05/2022 1:14 AM EDT Narrative Resulting Agency Comment Spec In Lab Teddy Willett MD HEMATOLOGY ORDERABLE S Performing Organization Address City/[facility]/ZIP Co de Phone Number [facility] [place] [address] * Heparin (unfractionated) Level (10/05/2022 1:04 AM EDT) Pathologist [facility] UF Heparin 0.11 IU/mL [facility] Comment: Heparin (anti-Xa) levels should be determined in a plasma sample that has been drawn 6 hours after a dose change to approximate steady-state for continuous heparin infusions. Indication specific Heparin (anti-Xa) levels based on order set selection: Acute DVT or PE treatment: 0.3 ? 0.7 IU/mL Thrombosis Prevention (eg. atrial fibrillation, dariana-procedural bridging, mechanical valves): 0.3 ? 0.7 IU/mL Acute Coronary Syndrome: 0.3 ? 0.7 IU/mL Stroke Indications: 0.3 ? 0.5 IU/mL Ultra-low intensity (select indications in cardiac surgery): 0.1 ? 0.3 IU/mL Blood 10/05/2022 1:04 AM EDT 10/05/2022 1:14 AM EDT Narrative Resulting Agency Comment Spec In Lab Teddy Willett MD HEMATOLOGY ORDERABLE S [facility] [place] [address] * (ABNORMAL) Glucose, fasting (10/05/2022 1:04 AM EDT) Pathologist [facility] Glucose Fasting 188(H) 65 - 99 mg/dL [facility] Comment: ?Fasting* Glucose Interpretive Criteria Normal ?65-99 mg/dL Impaired Fasting glucose ?100-125 mg/dL Consistent with Diabetes Mellitus ? >or= 126 mg/dL *Fasting is defined as no caloric intake for at least 8 hours In the absence of unequivocal hyperglycemia a plasma glucose value of >or= 126 mg/dL should be repeated on a subsequent day. Diagnosis and Classification of Diabetes Mellitus, Position Statement from the [place] [employer]. ??Diabetes Care, Volume 33, Supplement 1, Mar 2009 Blood 10/05/2022 1:04 AM EDT 10/05/2022 1:14 AM EDT Narrative Resulting Agency Comment Spec In Lab Teddy Willett MD CHEMISTRY ORDERABLES Performing Organization Address City/[facility]/ZIP Co de Phone Number [facility] [place] [address] * Triglyceride (10/05/2022 1:04 AM EDT) Triglyceride 355 mg/dL [facility] Comment: Average Risk/Lower Risk: <150 mg/dL Borderline High Risk: 150-199 mg/dL High Risk: 200-499 mg/dL Very High Risk: >bb=736 mg/dL Blood 10/05/2022 1:04 AM EDT 10/05/2022 1:14 AM EDT Narrative Resulting Agency Comment Spec In Lab Teddy Willett MD CHEMISTRY ORDERABLES Performing Organization Address City/[facility] Co de Phone Number [facility] [place] [address] * HDL/Cholesterol Profile (10/05/2022 1:04 AM EDT) Cholesterol, Total 133 mg/dL [facility] Comment: Lower Risk: <200 mg/dL Average Risk: 200-239 mg/dL Higher Risk: >kt=197 mg/dL HDL Cholesterol 32 mg/dL [facility] Comment: Males: ?? Higher Risk: <40 mg/dL Females: ?? Higher Risk: <50 mg/dL Cholesterol/HDL Ratio 4.2 ratio [facility] Chol/HDL Interpretation See Note [facility] Comment: Lipid management should be guided by a patient? s ASCVD risk, goals and preferences. ACC/AHA Guidelines recommend high intensity statin if clinical ASCVD or LDL greater than or equal to 190 mg/dL. http://Aspireurl.com/HTO-YUG-Gpqujxhla Measure LDL if Total Cholesterol minus HDL Cholesterol is greater than 220 mg/dL. Adults aged 40-75 with LDL 70-189 mg/dL should have their 10 year ASCVD risk estimated with the ACC/AHA ASCVD risk nuclear radiation engineer http://tools.acc.org/HJVTV-Pdms-Suprobwvx/ Statin should be discussed if risk greater than or equal to 7.5% in non-diabetics. With diabetes, moderate intensity statin is recommended if risk less than 7.5%, high intensity if risk greater than or equal to 7.5%. Annual lipid monitoring on statins is not necessary. Lifestyle modification is a critical component of ASCVD risk reduction. Blood 10/05/2022 1:04 AM EDT 10/05/2022 1:14 AM EDT Narrative Resulting Agency Comment Spec In Lab Teddy Willett MD CHEMISTRY ORDERABLES Performing Organization Address City/[facility]/ZIP Co de Phone Number [facility] [place] [address] * LDL Cholesterol, Direct (10/05/2022 1:04 AM EDT) LDL Cholesterol, Direct 61 mg/dL [facility] Comment: Lowest Risk: <100 mg/dL Lower Risk: 100-129 mg/dL Borderline High Risk: 130-159 mg/dL High Risk: 160-189 mg/dL Very High Risk: >lu=372 mg/dL Blood 10/05/2022 1:04 AM EDT 10/05/2022 1:14 AM EDT Narrative Resulting Agency Comment Spec In Lab Teddy Willett MD CHEMISTRY ORDERABLES Performing Organization Address City/[facility] Co de Phone Number [facility] [place] [address] * (ABNORMAL) Hemoglobin A1c (10/05/2022 1:04 AM EDT) Hemoglobin A1c 7.4(H) 4.3 - 5.6 % [facility] Comment: Reference Range: 4.3 - 5.6% [...] Mellitus, Diabetes Care 2013; 36: Suppl. 1, D07-81 Estimated Average Glucose 165 mg/dL [facility] Comment: eAG equivalents for HbA1c percentages: HbA1c(%) ?eAG(mg/dL) 6.0 ?126 6.5 ?140 7.0 ?154 7.5 ?169 8.0 ?183 8.5 ?197 9.0 ?212 9.5 ?226 10.0 ? 240 Limitations: The eAG calculation has not been validated on women, individuals below 18 years old and above 70 years old, and individuals with hemoglobinopathies. Additional resources are available on the ADA website. Royce VILLASENOR, Stephany J, China R, et al. ??Translating the A1C assay into estimated average glucose values. ??Diabetes Care 2008:31(8):4080-8915. Blood 10/05/2022 1:04 AM EDT 10/05/2022 1:14 AM EDT Narrative Resulting Agency Comment Spec In Lab Teddy Willett MD CHEMISTRY ORDERABLES [facility] [place] [address] * (ABNORMAL) POCT Glucose (10/04/2022 11:38 PM EDT) Glucose, POC 292(H) 65 - 199 mg/dL [facility] Comment: Supplemental ranges: <140 mg/dL before meals <180 mg/dL all other times of the day Blood 10/04/2022 11:3 8 PM EDT 10/04/2022 11:38 PM EDT Yosef Wilkes MD POINT OF CARE TEST O RDERABLES Performing Organization Address City/[facility]/[place] [address] * Differential, Automated (10/04/2022 9:56 PM EDT) Neutrophil % 61.6 % [facility] Neutrophil Absolute 5.06 1.70 - 6.10 x10(3)/[facility] Lymph % 26.1 % [facility] Lymphocytes Abs 2.1 0.9 - 3.2 x10(3)/[facility] Monocyte % 7.7 % [facility] Monocyte Abs 0.6 0.3 - 0.9 x10(3)/[facility] Eos % 3.5 % [facility] Eosinophils Abs 0.3 0.0 - 0.4 x10(3)/[facility] Basophil % 1.0 % [facility] Baso Absolute 0.1 0.0 - 0.1 x10(3)/[facility] Immature Gran % 0.10 % [facility] Comment: Immature granulocytes(IG's)percentage and absolute count will include metamyelocytes, myelocytes, and promyelocytes. Blood smears from CBCs yielding IG's will be scanned manually for concordance. If this scan disagrees with the automated IG or if promyelocytes are noted, a manual differential will be performed. Immature Gran Absolute 0.01 0.00 - 0.04 x10(3)/[facility] Blood 10/04/2022 9:56 PM EDT 10/04/2022 10:03 PM EDT Narrative Resulting Agency Comment Spec In Lab Vivek Lee MD HEMATOLOGY ORDERAB LES Performing Organization Address [facility]/[place] [address] * (ABNORMAL) Hemogram (10/04/2022 9:56 PM EDT) White Blood Cell 8.2 4.0 - 9.5 x10(3)/mc L [facility] Red Blood Cell 5.80(H) 4.58 - 5.54 x10(6)/mc L [facility] Hemoglobin 17.1(H) 13.7 - 16.5 g/dL [facility] Hematocrit 52.6(H) 40.5 - 48.5 % [facility] Mean Cell Volume 90.7 82.9 - 93.1 fL [facility] Mean Cell Hemoglobin 29.5 27.5 - 32.1 pg [facility] Mean Cell Hemoglobin Concentration 32.5 32.0 - 35.7 g/dL [facility] Platelet 220 145 - 357 x10(3)/mc L [facility] RDW Standard Deviation 47.8(H) 36.0 - 45.0 fL [facility] RDW coefficient of variation 14.4(H) 11.4 - 13.8 % [facility] Mean Platelet Volume 9.6 7.6 - 12.9 fL [facility] NRBC% auto 0.0 % [facility] NRBC Absolute 0.000 0.000 - 0.000 x10(3)/mc L [facility] Blood 10/04/2022 9:56 PM EDT 10/04/2022 10:03 PM EDT Narrative Resulting Agency Comment Spec In Lab Vivek Lee MD HEMATOLOGY ORDERAB LES Performing Organization Address City/State/[facility] Co de Phone Number [facility] [place] [address] * Troponin (10/04/2022 9:56 PM EDT) Troponin-T, High Sensitivity 16 <=22 ng/L [facility] Comment: This patient's troponin T concentration was determined using the Violet 5th Generation troponin T assay. The 99th percentile for Troponin T for this test is 14 ng/L for females, and 22 ng/L for males. According to the fourth universal definition of myocardial infarction, the term acute myocardial infarction should be used when there is acute myocardial injury with clinical evidence of acute myocardial ischemia and with detection of a rise and/or fall of cardiac troponin values with at least one value above the 99th percentile and at least one of the following: - Symptoms of myocardial ischemia; - New ischemic ECG changes; - Development of pathological Q waves; - Imaging evidence of new loss of viable myocardium or new regional wall motion abnormality in a pattern consistent with an ischemic etiology; - Identification of a coronary thrombus by angiography or autopsy (not for type 2 or 3 MIs) Serial measurement of troponin and the change in troponin concentration over time (delta) is crucial for the diagnosis of acute myocardial infarction. Guidance on the interpretation of the new 5th Generation Troponin T values and the delta troponin value can be found in the [facility] Test Catalog Troponin - [facility] Test Catalog Reference: Fourth Colver Definition of Myocardial Infarction. Journal of the [place] [employer] 2018;72:7313-7549 Blood 10/04/2022 9:56 PM EDT 10/04/2022 10:03 PM EDT Narrative Resulting Agency Comment Spec In Lab Teddy Willett MD CHEMISTRY ORDERABLES Performing Organization Address [facility]/ZIP Co de Phone Number [facility] [place] [address] * (ABNORMAL) POCT Glucose (10/04/2022 9:35 PM EDT) Glucose, POC 344(H) 65 - 199 mg/dL [facility] Comment: Supplemental ranges: <140 mg/dL before meals <180 mg/dL all other times of the day Blood 10/04/2022 9:35 PM EDT 10/04/2022 9:35 PM EDT Yosef Wilkes MD POINT OF CARE TEST O RDERABLES [facility] [place] [address] * POCT Glucose (10/04/2022 6:43 PM EDT) Glucose, POC 80 65 - 199 mg/dL [facility] Comment: Supplemental ranges: <140 mg/dL before meals <180 mg/dL all other times of the day Blood 10/04/2022 6:43 PM EDT 10/04/2022 6:43 PM EDT Yosef Wilkes MD POINT OF CARE TEST O RDERABLES Performing Organization Address [facility] Co de Phone Number [facility] [place] [address] * pro-Brain Natriuretic Peptide (10/04/2022 6:40 PM EDT) NT-proBNP 40 <=124 pg/mL [facility] Blood Venous Draw / Unknown 10/04/2022 6:40 PM EDT 10/04/2022 6:52 PM EDT Narrative Resulting Agency Comment Spec In Lab Vivek Lee MD CHEMISTRY ORDERABL ES Performing Organization Address [facility] de Phone Number [facility] [place] [address] * Magnesium (10/04/2022 6:40 PM EDT) Magnesium 1.07 0.69 - 1.07 mmol/L [facility] Blood Venous Draw / Unknown 10/04/2022 6:40 PM EDT 10/04/2022 6:52 PM EDT Narrative Resulting Agency Comment Spec In Lab Vivek Lee MD CHEMISTRY ORDERABL ES Performing Organization Address [facility] de Phone Number [facility] [place] [address] * (ABNORMAL) Basic Metabolic Panel (non-fasting) (10/04/2022 6:40 PM EDT) Glucose 75 65 - 199 mg/dL [facility] Comment:Diabetes: >=200 mg/d L plus symptoms Blood Urea Nitrogen 20 10 - 20 mg/dL [facility] Creatinine 1.54(H) 0.80 - 1.50 mg/dL [facility] Sodium 140 135 - 145 mmol/L [facility] Potassium 3.4(L) 3.5 - 5.0 mmol/L [facility] Comment: Please note: ??Patients with WBC >100,000 may have falsely elevated Potassium levels. ??For accurate Potassium quantification in these patients send serum separator tube (gold top) for subsequent determinations. ??Contact the Clinical Chemistry Laboratory if there are any questions. Chloride 98 98 - 107 mmol/L [facility] Carbon Dioxide 31 22 - 31 mmol/L [facility] Anion Gap 11 5 - 15 mmol/L [facility] Calcium 9.4 8.5 - 10.5 mg/dL [facility] Est Glomerular Filtration Rate 53(L) >=60 mL/min/1. 73 m?? [facility] Comment: This patient's estimated GFR was [...] and symptoms in addition to eGFR. Blood Venous Draw / Unknown 10/04/2022 6:40 PM EDT 10/04/2022 6:52 PM EDT Narrative Resulting Agency Comment Spec In Lab Vivek Lee MD CHEMISTRY ORDERABL ES [facility] [place] [address] * Heparin (unfractionated) Level (10/04/2022 6:40 PM EDT) UF Heparin <0.04 IU/mL [facility] Comment: Heparin (anti-Xa) levels should be determined in a plasma sample that has been drawn 6 hours after a dose change to approximate steady-state for continuous heparin infusions. Indication specific Heparin (anti-Xa) levels based on order set selection: Acute DVT or PE treatment: 0.3 ? 0.7 IU/mL Thrombosis Prevention (eg. atrial fibrillation, dariana-procedural bridging, mechanical valves): 0.3 ? 0.7 IU/mL Acute Coronary Syndrome: 0.3 ? 0.7 IU/mL Stroke Indications: 0.3 ? 0.5 IU/mL Ultra-low intensity (select indications in cardiac surgery): 0.1 ? 0.3 IU/mL Blood 10/04/2022 6:40 PM EDT 10/04/2022 6:52 PM EDT Narrative Resulting Agency Comment Spec In Lab Teddy Willett MD HEMATOLOGY ORDERABLE S Performing Organization Address City/[facility]/ZIP Co de Phone Number [facility] [place] [address] * Troponin (10/04/2022 6:40 PM EDT) Troponin-T, High Sensitivity 17 <=22 ng/L [facility] Comment: This patient's troponin T concentration was determined using the Violet 5th Generation troponin T assay. The 99th percentile for Troponin T for this test is 14 ng/L for females, and 22 ng/L for males. According to the fourth universal definition of myocardial infarction, the term acute myocardial infarction should be used when there is acute myocardial injury with clinical evidence of acute myocardial ischemia and with detection of a rise and/or fall of cardiac troponin values with at least one value above the 99th percentile and at least one of the following: - Symptoms of myocardial ischemia; - New ischemic ECG changes; - Development of pathological Q waves; - Imaging evidence of new loss of viable myocardium or new regional wall motion abnormality in a pattern consistent with an ischemic etiology; - Identification of a coronary thrombus by angiography or autopsy (not for type 2 or 3 MIs) Serial measurement of troponin and the change in troponin concentration over time (delta) is crucial for the diagnosis of acute myocardial infarction. Guidance on the interpretation of the new 5th Generation Troponin T values and the delta troponin value can be found in the [facility] Test Catalog Troponin - [facility] Test Catalog Reference: Fourth Colver Definition of Myocardial Infarction. Journal of the [employer] 2018;72:0596-7845 Blood 10/04/2022 6:40 PM EDT 10/04/2022 6:52 PM EDT Narrative Resulting Agency Comment Spec In Lab Yosef Wilkes MD CHEMISTRY ORDERABLES Performing Organization Address City/[facility]/ZIP Co de Phone Number [facility] [place] [address] documented in this encounter Visit Diagnoses Diagnosis Unstable angina- Primary Intermediate coronary syndrome Unstable angina Intermediate coronary syndrome documented in this encounter Admitting Diagnoses Diagnosis Unstable angina Intermediate coronary syndrome documented in this encounter Administered Medications Inactive Administered Medications - up to 3 most recent administrations Medication Order MAR Action Action Date Dose Rate Site acetaminophen (Tylenol) tablet 650 mg 650 mg, Oral, EVERY 6 HOURS PRN, Starting on Mon10/05/22 at 0452, Until Mon10/06/22 at 0054, Pain, Maximum dose of acetaminophen is 4,000 mg from all sources in 24 hours. When ordered for pain, acetaminophen should be given even when other ordered pain medications are indicated. , Routine Given 10/05/2022 5:06 AM EDT 650 mg aspirin EC tablet 81 mg 81 mg, Oral, DAILY, First dose (after last reorder) on Mon10/05/22 at 0900, Until Discontinued, Routine Given 10/05/2022 9:06 AM EDT 81 mg atorvastatin (Lipitor) tablet 80 mg 80 mg, Oral, EVERY EVENING, First dose on Mon10/04/22 at 2000, Until Discontinued, Routine Given 10/05/2022 8:17 PM EDT 80 mg Given 10/04/2022 9:47 PM EDT 80 mg budesonide-formoteroL (Symbicort) 160-4.5 mcg/actuation inhaler 2 Inhalation 2 .Inhalation , Inhalation, 2 TIMES DAILY (RESPIRATORY THERAPY), First dose on Mon10/04/22 at 2000, Until Discontinued, Routine Given 10/05/2022 8:19 PM EDT 2 .Inhalation Given 10/05/2022 5:07 AM EDT 2 .Inhalation Given 10/04/2022 9:49 PM EDT 2 .Inhalation clopidogreL (Plavix) tablet 75 mg 75 mg, Oral, DAILY, First dose on Mon10/05/22 at 0900, Until Discontinued, Routine Given 10/05/2022 9:05 AM EDT 75 mg dextrose 10% infusion 250 mL, at 1,000 mL/hr, Intravenous, EVERY 30 MIN PRN, Starting on Mon10/04/22 at 1907, Until Mon10/06/22 at 0054, For BG 50-70 mg/dL: Oral treatment preferred: If able to drink, give 120 mL Juice or Regular (not diet) soda OR If NPO, give 15 gram glucose 40% oral gel massaged into buccal mucosa OR if unconscious or uncooperative, give 25 gram (250 mL) Dextrose 10% IV over 15 minutes per protocol OR, if no IV access, 1 mg Glucagon IM. For BG less than 50 mg/dL: Oral treatment preferred: If able to drink, give 240 mL [...] minutes. May repeat juice/soda, gel, dextrose or glucagon once per episode. For persistent hypoglycemia, consider longer-acting treatment for the duration of the active insulin. folic acid (Vitamin B9) tablet 1 mg 1 mg, Oral, DAILY, First dose on Mon10/04/22 at 2000, Until Discontinued, Routine Given 10/05/2022 9:06 AM EDT 1 mg Given 10/04/2022 9:53 PM EDT 1 mg glucagon (Glucagen) (1 mg/mL) injection solution 1 mg 1 mg, Intramuscular, EVERY 30 MIN PRN, Starting on Mon10/04/22 at 1907, Until Mon10/06/22 at 0054, Low blood sugar, For BG 50-70 mg/dL: Oral treatment preferred: If able to drink, give 120 mL Juice or Regular (not diet) soda OR If NPO, give 15 gram glucose 40% oral gel massaged into buccal mucosa OR if unconscious or uncooperative, give 25 gram (250 mL) Dextrose 10% IV over 15 minutes per protocol OR, if no IV access, 1 mg Glucagon IM. For BG less than 50 mg/dL: Oral treatment preferred: If able to drink, give 240 mL [...] minutes. May repeat juice/soda, gel, dextrose or glucagon once per episode. For persistent hypoglycemia, consider longer-acting treatment for the duration of the active insulin., Routine glucose (Glutose) 40% oral geL 15-30 g of glucose, Buccal, EVERY 30 MIN PRN, Starting on Mon10/04/22 at 1907, Until Mon10/06/22 at 0054, Low blood sugar, For BG 50-70 mg/dL: Oral treatment preferred: If able to drink, give 120 mL Juice or Regular (not diet) soda OR If NPO, give 15 gram glucose 40% oral gel massaged into buccal mucosa OR if unconscious or uncooperative, give 25 gram (250 mL) Dextrose 10% IV over 15 minutes per protocol OR, if no IV access, 1 mg Glucagon IM. For BG less than 50 mg/dL: Oral treatment preferred: If able to drink, give 240 mL [...] minutes. May repeat juice/soda, gel, dextrose or glucagon once per episode. For persistent hypoglycemia, consider longer-acting treatment for the duration of the active insulin. 1 tube of Glutose-15 contains 15 grams of glucose (net weight of tube = 37.5 grams.), Routine heparin (porcine) (1,000 units/mL) injection 0-4,000 Units 0-4,000 Units, Intravenous, BOLUS PER HEPARIN PROTOCOL, Starting on Mon10/04/22 at 1809, Until Mon10/06/22 at 0054, Per Protocol, START ADJUSTMENT SCHEDULE 6 HOURS AFTER STARTING INFUSION Bolus doses are rounded to the nearest 100 units. If Heparin UFH Level is: - Less than 0.1 international unit/mL: Bolus 60 units/kg (Maximum of 4,000 units) = Bolus 4,000 units - 0.1 - 0.19 International unit/mL: Bolus 30 units/kg (Maximum of 2,000 units) = Bolus 2,000 units - Equal to or greater than 0.2 international unit/mL: No Bolus, Routine Given 10/05/2022 11:29 AM EDT 2,000 Units Given 10/05/2022 1:50 AM EDT 2,000 Units heparin (porcine) 50 units/mL in dextrose 5% 500 mL infusion 0-5,000 Units/hr (0-100 mL/hr), Intravenous, CONTINUOUS, Starting on Mon10/04/22 at 1900, Until [place] 10/06/22 at 0054, Begin infusion at 1,000 units per hr (12 units/kg/hr). Maximum initial infusion rate is 1,000 units/hr. Infusion doses are rounded to the nearest 50 units. Target Heparin UFH Level (anti-Xa activity) = 0.3 - 0.7 international unit/mL Start adjustment schedule 6 hours after starting infusion. If Heparin UFH Level is: - Less than 0.1 international unit/mL: Administer PRN bolus and increase rate by 550 units per hr (4 units/kg/hr) - 0.1 - 0.19 international unit/mL: Administer PRN bolus and increase rate by 250 units per hr (2 units/kg/hr) - 0.2 - 0.29 international unit/mL: NO BOLUS and increase rate by 250 units per hr (2 units/kg/hr) - 0.3 - 0.7 international unit/mL: No change - 0.71 - 0.79 international unit/mL: NO BOLUS and decrease rate by 150 units per hr (1 units/kg/hr) - 0.8 - 0.99 international unit/mL: NO BOLUS and decrease rate by 250 units per hr (2 units/kg/hr) - Greater than or equal to 1.00 international unit/mL: Hold infusion for 60 minutes then decrease rate by 400 units per hour (3 units/kg/hr) Obtain Heparin UFH Level 6 hours after initiating heparin. Then 6 hours after each dose adjustment. When 2 consecutive Heparin UFH Level within target range of 0.3 - 0.7 international unit/mL, change Heparin UFH Level to once every 24 hours with A.M. labs while on heparin. RN to order required Heparin UFH Level - Per Protocol, Routine Rate/Dose Change 10/05/2022 11:27 AM EDT 1,500 Units/hr 30 mL/hr New Bag 10/05/2022 1:51 AM EDT 1,250 Units/hr 25 mL/hr New Bag 10/04/2022 6:42 PM EDT 1,000 Units/hr 20 mL/hr insulin glargine-ygfn (Semglee) (100 unit/mL) subcutaneous injection vial 40 Units 40 Units, Subcutaneous, NIGHTLY, First dose (after last modification) on Mon10/04/22 at 2115, Until Discontinued, Routine Given 10/04/2022 10:55 PM EDT 40 Units insulin glargine-ygfn (Semglee) (100 unit/mL) subcutaneous injection vial 64 Units 64 Units, Subcutaneous, NIGHTLY, First dose (after last modification) on Mon10/05/22 at 2100, Until Discontinued, Routine Given 10/05/2022 8:17 PM EDT 64 Units insulin lispro (HumaLOG;Admelog) (100 unit/mL) subcutaneous injection vial 0-8 Units 0-8 Units, Subcutaneous, 3 TIMES DAILY WITH MEALS, First dose on Mon10/05/22 at 1830, Until Discontinued, ME[employer] ASS[employer]IATED Give 1 unit for every 10 grams carbohydrate. Hold if not eating or if BG less than 70 mg/dL., Routine Given 10/05/2022 6:49 PM EDT 8 Units insulin lispro (HumaLOG;Admelog) (100 unit/mL) subcutaneous injection vial 2-12 Units 2-12 Units, Subcutaneous, EVERY 4 HOURS SCHEDULED, First dose on Mon10/04/22 at 2100, Until Discontinued, CORRECTION BOLUS [2-12 Units] Resistant Sliding Scale (BG in mg/dL) Correction Factor 10 (1 unit of insulin is expected to drop the glucose 10 mg/dL) BG 140 - 160 Give 2 units BG 161 - 180 Give 4 units BG 181 - 200 Give 6 units BG 201 - 220 Give 8 units BG 221 - 240 Give 10 units BG greater than 240, give 12 units and recheck BG in 2 hours. - If recheck BG is LESS than 240, give no insulin and resume schedule. - If recheck BG is GREATER than 240, give 12 units and repeat BG in 2 hours (no more than 3 times) & call for new insulin orders. DO NOT hold if NPO, unless specifically directed to do so by written order. Per Blood Glucose Monitoring Policy, re-check a BG of > 240 mg/dL in 2 hours, Routine Given 10/05/2022 7:51 PM EDT 6 Units Given 10/05/2022 11:47 AM EDT 2 Units Given 10/05/2022 8:45 AM EDT 2 Units lidocaine (Xylocaine) 1% (10 mg/mL) injection 3 mg 3 mg (0.3 mL), Subcutaneous, ONCE PRN, 1 dose, Starting on Mon10/04/22 at 1810, Until Mon10/06/22 at 0054, for discomfort with PIV insertion, Routine metoprolol succinate XL (Toprol-XL) tablet 100 mg 100 mg, Oral, DAILY, First dose on Mon10/04/22 at 2000, Until Discontinued, DO NOT CRUSH OR OPEN, Routine Given 10/05/2022 9:05 AM EDT 100 mg Given 10/04/2022 9:47 PM EDT 100 mg nicotine (Nicoderm CQ) 21 mg/24 hr patch 21 mg 21 mg (1 patch), Transdermal, Administer over 24 Hours, DAILY, First dose on Mon10/04/22 at 2000, Until Discontinued, Apply new patch to clean, dry, hair-free skin on the upper body or upper outer arm; each patch should be applied to a different site. , Routine Patch Applied 10/05/2022 9:08 AM EDT 21 mg 03- Shoulder (Left) Patch Applied 10/04/2022 9:48 PM EDT 21 mg 04- Shoulder (Right) nicotine (Nicoderm CQ) 21 mg/24 hr patch Patch Verification Transdermal, 2 TIMES DAILY, First dose on Mon10/05/22 at 0715, Until Discontinued, Verify nicotine 21 mg/24 hr patch nicotine polacrilex (Nicorette) gum 2 mg 2 mg, Buccal, EVERY 2 HOURS PRN, Starting on Mon10/05/22 at 1520, Until Mon10/06/22 at 0054, Smoking cessation, Chew gum slowly. Do not swallow. Maximum of 48 mg/day., Routine nitroGLYcerin (Nitrostat) disintegrating tablet 0.4 mg 0.4 mg, Sublingual, EVERY 5 MIN PRN, Starting on Mon10/04/22 at 1810, Until Mon10/06/22 at 0054, Chest pain, May repeat every 5 minutes for a total of three doses. Notify provider if chest pain not relieved with nitroglycerin. Do not administer nitroglycerin if the patient has received or taken phosphodiesterase (PDE-5) inhibitors such as sildenafil, tadalafil or vardenafil within the last 24 to 72 hours., Routine pantoprazole EC (Protonix) tablet 40 mg 40 mg, Oral, 2 TIMES DAILY, First dose on Mon10/04/22 at 2100, Until Discontinued, DO NOT CRUSH OR OPEN, Routine Given 10/05/2022 8:17 PM EDT 40 mg Given 10/05/2022 9:05 AM EDT 40 mg Given 10/04/2022 9:47 PM EDT 40 mg perflutren protein-A microsphers (Optison) (0.22 mg/mL) injection 0.5 mL 0.5 mL, Intravenous, ONCE PRN, 1 dose, Starting on Mon10/05/22 at 1220, Until Mon10/05/22 at 1130, for enhancement of sub-optimal echo images, Echo Lab (Intra-Procedure), Routine Given 10/05/2022 11:30 AM EDT 0.5 mLs sodium chloride 0.9 % (flush) (BD PosiFlush Normal Saline 0.9) flush 5 mL 5 mL, Intravenous, 2 TIMES DAILY, First dose on Mon10/04/22 at 2100, Until Discontinued, Routine Given 10/05/2022 8:19 PM EDT 5 mLs sodium chloride 0.9 % (flush) (BD PosiFlush Normal Saline 0.9) flush 5 mL 5 mL, Intravenous, 2 TIMES DAILY, First dose on Mon10/04/22 at 2100, Until Discontinued, Routine Given 10/05/2022 8:18 PM EDT 5 mLs Given 10/05/2022 9:07 AM EDT 5 mLs sodium chloride 0.9 % (flush) (BD PosiFlush Normal Saline 0.9) flush 5-20 mL 5-20 mL, Intravenous, EVERY 1 MIN PRN, Starting on Mon10/04/22 at 1810, Until Mon10/06/22 at 0054, flush, Flush pertains to all indwelling lines. Flush per protocol found in the job aid using the link provided on this medication record., Routine sodium chloride 0.9% infusion 100 mL/hr, Intravenous, CONTINUOUS, Starting on Mon10/05/22 at 1745, Until Mon10/05/22 at 2144, Recovery (Recovery-Hospital Unit) New Bag 10/05/2022 5:45 PM EDT 100 mL/hr 100 mL /hr thiamine (Vitamin B-1) tablet 100 mg 100 mg, Oral, DAILY, First dose on Mon10/04/22 at 2000, Until Discontinued, Routine Given 10/05/2022 9:06 AM EDT 100 mg Given 10/04/2022 9:47 PM EDT 100 mg tiotropium bromide (Spiriva Respimat) 2.5 mcg/actuation inhaler 2 puff 2 puff, Inhalation, DAILY, First dose on Mon10/04/22 at 1999, Until Discontinued, Must be primed prior to first administration, Routine Given 10/05/2022 9:07 AM EDT 2 puffs Given 10/04/2022 9:49 PM EDT 2 puffs documented in this encounter Active and Recently Administered Medications Times are shown in EDT. Scheduled Medication Order 10/03/2022 10/04/2022 10/05/2022 aspirin EC tablet 81 mg 81 mg, Oral, DAILY, First dose (after last reorder) on Mon10/05/22 at 0900, Until Discontinued, Routine 09 (Given - Provid er: Corinna Vallecillo RN)1618 (MAY Hold - Provider: Admin Adt - Reason: Transfer to a Procedural area)1758 (MAY Unhold - Provider: Admin Adt) atorvastatin (Lipitor) tablet 80 mg 80 mg, Oral, EVERY EVENING, First dose on Mon10/04/22 at 1999, Until Discontinued, Routine 2146 (Given - Provider: Sil Lopez RN) 1618 (MAY Hold - Provider: Admin Adt - Reason: Transfer to a Procedural area)1700 (Not Given - Provider: Corinna Vallecillo RN - Reason: Transfer to a Procedural area)1758 (MAY Unhold - Provider: Admin Adt)2016 (Given - Provider: Sil Lopez RN) budesonide-formoteroL (Symbicort) 160-4.5 mcg/actuation inhaler 2 Inhalation 2 .Inhalation , Inhalation, 2 TIMES DAILY (RESPIRATORY THERAPY), First dose on Mon10/04/22 at 1999, Until Discontinued, Routine 2148 (Given - Provider: Sil Lopez RN) 050 (Given - Provider: Sil Lopez RN)1618 ([facility] Hold - Provider: Admin Adt - Reason: Transfer to a Procedural area)175 ([facility] Unhold - Provider: Admin Adt)2018 (Given - Provider: Sil Lopez RN) clopidogreL (Plavix) tablet 75 mg 75 mg, Oral, DAILY, First dose on Mon10/05/22 at 0900, Until Discontinued, Routine 09 (Given - Provid er: Corinna Vallecillo RN)161 ([facility] Hold - Provider: Admin Adt - Reason: Transfer to a Procedural area)175 ([facility] Unhold - Provider: Admin Adt) folic acid (Vitamin B9) tablet 1 mg 1 mg, Oral, DAILY, First dose on Mon10/04/22 at 2000, Until Discontinued, Routine 215 (Given - Provider: Sil Lopez RN) 09 (Given - Provider: Corinna Vallecillo RN)161 ([facility] Hold - Provider: Admin Adt - Reason: Transfer to a Procedural area)175 ([facility] Unhold - Provider: Admin Adt) insulin glargine-ygfn (Semglee) (100 unit/mL) subcutaneous injection vial 40 Units (CANCELED) 40 Units, Subcutaneous, NIGHTLY, First dose (after last modification) on Mon10/04/22 at 2115, Until Discontinued, Routine 2255 (Given - Provider: Sil Lopez RN) 161 ([facility] Hold - Provider: Admin Adt - Reason: Transfer to a Procedural area)172 ([facility] Unhold - Provider: ISABELLE Salazar) insulin glargine-ygfn (Semglee) (100 unit/mL) subcutaneous injection vial 64 Units 64 Units, Subcutaneous, NIGHTLY, First dose (after last modification) on Mon10/05/22 at 2100, Until Discontinued, Routine 2016 (Given - Provid er: Sil Lopez RN) insulin lispro (HumaLOG;Admelog) (100 unit/mL) subcutaneous injection vial 0-8 Units 0-8 Units, Subcutaneous, 3 TIMES DAILY WITH MEALS, First dose on Mon10/05/22 at 1830, Until Discontinued, ME[employer] Give 1 unit for every 10 grams carbohydrate. Hold if not eating or if BG less than 70 mg/dL., Routine 184 (Given - Provid er: Corinna Vallecillo RN) insulin lispro (HumaLOG;Admelog) (100 unit/mL) subcutaneous injection vial 2-12 Units(Linked Group 1) 2-12 Units, Subcutaneous, EVERY 4 HOURS SCHEDULED, First dose on Mon10/04/22 at 2100, Until Discontinued, CORRECTION BOLUS [2-12 Units] Resistant Sliding Scale (BG in mg/dL) Correction Factor 10 (1 unit of insulin is expected to drop the glucose 10 mg/dL) BG 140 - 160 Give 2 units BG 161 - 180 Give 4 units BG 181 - 200 Give 6 units BG 201 - 220 Give 8 units BG 221 - 240 Give 10 units BG greater than 240, give 12 units and recheck BG in 2 hours. - If recheck BG is LESS than 240, give no insulin and resume schedule. - If recheck BG is GREATER than 240, give 12 units and repeat BG in 2 hours (no more than 3 times) & call for new insulin orders. DO NOT hold if NPO, unless specifically directed to do so by written order. Per Blood Glucose Monitoring Policy, re-check a BG of > 240 mg/dL in 2 hours, Routine 2148 (Given - Provider: Sil Loepz RN)2340 (Given - Provider: Sil Lopez RN) 0414 (Given - Provider: Sil Lopez RN)0845 (Given - Provider: Corinna Vallecillo RN)1147 (Given - Provider: Corinna Vallecillo RN)1600 (Not Given - Provider: Corinna Vallecillo RN - Reason: Order parameters not met)1618 (MAR Hold - Provider: Admin Adt - Reason: Transfer to a Procedural area)1758 ([facility] Unhold - Provider: Admin Adt)195 (Given - Provider: Sil Lopez RN) metoprolol succinate XL (Toprol-XL) tablet 100 mg 100 mg, Oral, DAILY, First dose on Mon10/04/22 at 2000, Until Discontinued, DO NOT CRUSH OR OPEN, Routine 214 (Given - Provider: Sil Lopez RN) 0905 (Given - Provider: Corinna Vallecillo RN)161 (MAY Hold - Provider: Admin Adt - Reason: Transfer to a Procedural area)1757 (MAY Unhold - Provider: Admin Adt) nicotine (Nicoderm CQ) 21 mg/24 hr patch 21 mg(Linked Group 2) 21 mg (1 patch), Transdermal, Administer over 24 Hours, DAILY, First dose on Mon10/04/22 at 2000, Until Discontinued, Apply new patch to clean, dry, hair-free skin on the upper body or upper outer arm; each patch should be applied to a different site. , Routine 2147 (Patch Applied - Provider: Sil Lopez RN) 905 (Patch Removed - Provider: Corinna Vallecillo RN)09 (Patch Applied - Provider: Corinna Vallecillo RN)1617 (MAY Hold - Provider: Admin Adt - Reason: Transfer to a Procedural area)1757 (MAY Unhold - Provider: Admin Adt)224 (Due: Patch Removed - Provider: Automatic Discharge Provider - Comment: Time automatically adjusted from order being discontinued) nicotine (Nicoderm CQ) 21 mg/24 hr patch Patch Verification(Linked Group 2) Transdermal, 2 TIMES DAILY, First dose on Mon10/05/22 at 0715, Until Discontinued, Verify nicotine 21 mg/24 hr patch 0715 (Patch (dose an d location) verified - Provider: Sil Lopez RN)1617 (MAY Hold - Provider: Admin Adt - Reason: Transfer to a Procedural area)1757 (MAY Unhold - Provider: Admin Adt)2100 (Patch (dose and location) verified - Provider: Sil Lopez RN) pantoprazole EC (Protonix) tablet 40 mg 40 mg, Oral, 2 TIMES DAILY, First dose on Mon10/04/22 at 2100, Until Discontinued, DO NOT CRUSH OR OPEN, Routine 2146 (Given - Provider: Sil Lopez RN) 904 (Given - Provider: Corinna Vallecillo RN)161 (MAY Hold - Provider: Admin Adt - Reason: Transfer to a Procedural area)1757 (MAY Unhold - Provider: Admin Adt)2016 (Given - Provider: Sil Lopez RN) sodium chloride 0.9 % (flush) (BD PosiFlush Normal Saline 0.9) flush 5 mL 5 mL, Intravenous, 2 TIMES DAILY, First dose on Mon10/04/22 at 2100, Until Discontinued, Routine 2100 (Not Given - Provider: Sil Lopez RN - Reason: See comment - Comment: previously flushed) 0900 (Not Given - Provider: Corinna Vallecillo RN - Reason: Order parameters not met)161 ([facility] Hold - Provider: Admin Adt - Reason: Transfer to a Procedural area)175 ([facility] Unhold - Provider: Admin Adt)2018 (Given - Provider: Sil Lopez RN) sodium chloride 0.9 % (flush) (BD PosiFlush Normal Saline 0.9) flush 5 mL 5 mL, Intravenous, 2 TIMES DAILY, First dose on Mon10/04/22 at 2100, Until Discontinued, Routine 2100 (Not Given - Provider: Sil Lopez RN - Reason: See comment - Comment: previously flushed) 0907 (Given - Provider: Corinna Vallecillo RN)161 ([facility] Hold - Provider: Admin Adt - Reason: Transfer to a Procedural area)175 ([facility] Unhold - Provider: Admin Adt)2017 (Given - Provider: Sil Lopez RN) thiamine (Vitamin B-1) tablet 100 mg 100 mg, Oral, DAILY, First dose on Mon10/04/22 at 2000, Until Discontinued, Routine 2146 (Given - Provider: Sil Lopez RN) 0906 (Given - Provider: Corinna Vallecillo, GUILLAUME)161 ([facility] Hold - Provider: Admin Adt - Reason: Transfer to a Procedural area)175 ([facility] Unhold - Provider: Admin Adt) tiotropium bromide (Spiriva Respimat) 2.5 mcg/actuation inhaler 2 puff 2 puff, Inhalation, DAILY, First dose on Mon10/04/22 at 2000, Until Discontinued, Must be primed prior to first administration, Routine 2148 (Given - Provider: Sil Lopez RN) 0907 (Given - Provider: Corinna Vallecillo RN)161 ([facility] Hold - Provider: Admin Adt - Reason: Transfer to a Procedural area)175 ([facility] Unhold - Provider: Admin Adt) Continuous Medication Order 10/03/2022 10/04/2022 10/05/2022 heparin (porcine) 50 units/mL in dextrose 5% 500 mL infusion(Linked Group 3) 0-5,000 Units/hr (0-100 mL/hr), Intravenous, CONTINUOUS, Starting on Mon10/04/22 at 1900, Until Mon10/06/22 at 0054, Begin infusion at 1,000 units per hr (12 units/kg/hr). Maximum initial infusion rate is 1,000 units/hr. Infusion doses are rounded to the nearest 50 units. Target Heparin UFH Level (anti-Xa activity) = 0.3 - 0.7 international unit/mL Start adjustment schedule 6 hours after starting infusion. If Heparin UFH Level is: - Less than 0.1 international unit/mL: Administer PRN bolus and increase rate by 550 units per hr (4 units/kg/hr) - 0.1 - 0.19 international unit/mL: Administer PRN bolus and increase rate by 250 units per hr (2 units/kg/hr) - 0.2 - 0.29 international unit/mL: NO BOLUS and increase rate by 250 units per hr (2 units/kg/hr) - 0.3 - 0.7 international unit/mL: No change - 0.71 - 0.79 international unit/mL: NO BOLUS and decrease rate by 150 units per hr (1 units/kg/hr) - 0.8 - 0.99 international unit/mL: NO BOLUS and decrease rate by 250 units per hr (2 units/kg/hr) - Greater than or equal to 1.00 international unit/mL: Hold infusion for 60 minutes then decrease rate by 400 units per hour (3 units/kg/hr) Obtain Heparin UFH Level 6 hours after initiating heparin. Then 6 hours after each dose adjustment. When 2 consecutive Heparin UFH Level within target range of 0.3 - 0.7 international unit/mL, change Heparin UFH Level to once every 24 hours with A.M. labs while on heparin. RN to order required Heparin UFH Level - Per Protocol, Routine 184 (New Bag - Provider: Nathaniel De La Fuente RN) 0151 (New Bag - Provider: Sil Lopez RN)1127 (Rate/Dose Change - Provider: Corinna Vallecillo RN)1618 (MAY Hold - Provider: Admin Adt - Reason: Transfer to a Procedural area)1758 (MAY Unhold - Provider: Admin Adt) sodium chloride 0.9% infusion 100 mL/hr, Intravenous, CONTINUOUS, Starting on Mon10/05/22 at 1745, Until Mon10/05/22 at 2144, Recovery (Recovery-Hospital Unit) 174 (New Bag - Provider: Ann Leroy RN) PRN Medication Order 10/03/2022 10/04/2022 10/05/2022 acetaminophen (Tylenol) tablet 650 mg 650 mg, Oral, EVERY 6 HOURS PRN, Starting on Mon10/05/22 at 0452, Until Mon10/06/22 at 0054, Pain, Maximum dose of acetaminophen is 4,000 mg from all sources in 24 hours. When ordered for pain, acetaminophen should be given even when other ordered pain medications are indicated. , Routine 0506 (Given - Provid er: Sil Lopez RN)1617 (MAY Hold - Provider: Admin Adt - Reason: Transfer to a Procedural area)1757 (MAY Unhold - Provider: Admin Adt) dextrose 10% infusion(Linked Group 4) 250 mL, at 1,000 mL/hr, Intravenous, EVERY 30 MIN PRN, Starting on Mon10/04/22 at 1907, Until [place] 10/06/22 at 0054, For BG 50-70 mg/dL: Oral treatment preferred: If able to drink, give 120 mL Juice or Regular (not diet) soda OR If NPO, give 15 gram glucose 40% oral gel massaged into buccal mucosa OR if unconscious or uncooperative, give 25 gram (250 mL) Dextrose 10% IV over 15 minutes per protocol OR, if no IV access, 1 mg Glucagon IM. For BG less than 50 mg/dL: Oral treatment preferred: If able to drink, give 240 mL [...] minutes. May repeat juice/soda, gel, dextrose or glucagon once per episode. For persistent hypoglycemia, consider longer-acting treatment for the duration of the active insulin. 1617 (MAY Hold - Pro vider: Admin Adt - Reason: Transfer to a Procedural area)175 (MAY Unhold - Provider: Admin Adt) fentaNYL (pf) (50 mcg/mL) multi-dose injection (CANCELED) PRN, Starting on Mon10/05/22 at 1635, Until Mon10/05/22 at 1711, Intra-Operative (Intra-Procedure), Routine 1635 (Given - Provid er: Joisah Alonso RN) glucagon (Glucagen) (1 mg/mL) injection solution 1 mg(Linked Group 4) 1 mg, Intramuscular, EVERY 30 MIN PRN, Starting on Mon10/04/22 at 1907, Until Mon10/06/22 at 0054, Low blood sugar, For BG 50-70 mg/dL: Oral treatment preferred: If able to drink, give 120 mL Juice or Regular (not diet) soda OR If NPO, give 15 gram glucose 40% oral gel massaged into buccal mucosa OR if unconscious or uncooperative, give 25 gram (250 mL) Dextrose 10% IV over 15 minutes per protocol OR, if no IV access, 1 mg Glucagon IM. For BG less than 50 mg/dL: Oral treatment preferred: If able to drink, give 240 mL [...] minutes. May repeat juice/soda, gel, dextrose or glucagon once per episode. For persistent hypoglycemia, consider longer-acting treatment for the duration of the active insulin., Routine 161 (MAY Hold - Pro vider: Admin Adt - Reason: Transfer to a Procedural area)175 (MAY Unhold - Provider: Admin Adt) glucose (Glutose) 40% oral geL(Linked Group 4) 15-30 g of glucose, Buccal, EVERY 30 MIN PRN, Starting on Mon10/04/22 at 1907, Until Mon10/06/22 at 0054, Low blood sugar, For BG 50-70 mg/dL: Oral treatment preferred: If able to drink, give 120 mL Juice or Regular (not diet) soda OR If NPO, give 15 gram glucose 40% oral gel massaged into buccal mucosa OR if unconscious or uncooperative, give 25 gram (250 mL) Dextrose 10% IV over 15 minutes per protocol OR, if no IV access, 1 mg Glucagon IM. For BG less than 50 mg/dL: Oral treatment preferred: If able to drink, give 240 mL [...] minutes. May repeat juice/soda, gel, dextrose or glucagon once per episode. For persistent hypoglycemia, consider longer-acting treatment for the duration of the active insulin. 1 tube of Glutose-15 contains 15 grams of glucose (net weight of tube = 37.5 grams.), Routine 1617 (MAY Hold - Pro vider: Admin Adt - Reason: Transfer to a Procedural area)1757 (MAY Unhold - Provider: Admin Adt) heparin (porcine) (1,000 units/mL) injection 0-4,000 Units(Linked Group 3) 0-4,000 Units, Intravenous, BOLUS PER HEPARIN PROTOCOL, Starting on Mon10/04/22 at 1809, Until Mon10/06/22 at 0054, Per Protocol, START ADJUSTMENT SCHEDULE 6 HOURS AFTER STARTING INFUSION Bolus doses are rounded to the nearest 100 units. If Heparin UFH Level is: - Less than 0.1 international unit/mL: Bolus 60 units/kg (Maximum of 4,000 units) = Bolus 4,000 units - 0.1 - 0.19 International unit/mL: Bolus 30 units/kg (Maximum of 2,000 units) = Bolus 2,000 units - Equal to or greater than 0.2 international unit/mL: No Bolus, Routine 0150 (Given - Provid er: Sil Lopez RN)1129 (Given - Provider: Corinna Vallecillo RN)1617 (MAY Hold - Provider: Admin Adt - Reason: Transfer to a Procedural area)175 (MAY Unhold - Provider: Admin Adt) heparin (porcine) (1,000 units/mL) injection (CANCELED) PRN, Starting on Mon10/05/22 at 1652, Until Mon10/05/22 at 1711, Intra-Operative (Intra-Procedure), Routine 165 (Given - Provid er: Josiah Alonso RN) iohexoL (Omnipaque) (350 mg/mL) solution (CANCELED) PRN, Starting on Mon10/05/22 at 1710, Until Mon10/05/22 at 1711, Intra-Operative (Intra-Procedure), Routine 171 (Given - Provid er: Josiah Alonso RN) lidocaine (Xylocaine) 1% (10 mg/mL) injection 3 mg 3 mg (0.3 mL), Subcutaneous, ONCE PRN, 1 dose, Starting on Mon10/04/22 at 1810, Until Mon10/06/22 at 0054, for discomfort with PIV insertion, Routine 1617 (MAR Hold - Pro vider: Admin Adt - Reason: Transfer to a Procedural area)1757 (MAR Unhold - Provider: Admin Adt) midazolam (pf) (Versed) (1 mg/mL) multi-dose injection (CANCELED) PRN, Starting on Mon10/05/22 at 1635, Until Mon10/05/22 at 1711, Intra-Operative (Intra-Procedure), Routine 163 (Given - Provid er: Josiah Alonso RN) nicotine polacrilex (Nicorette) gum 2 mg 2 mg, Buccal, EVERY 2 HOURS PRN, Starting on Mon10/05/22 at 1520, Until Mon10/06/22 at 0054, Smoking cessation, Chew gum slowly. Do not swallow. Maximum of 48 mg/day., Routine 161 (MAR Hold - Pro vider: Admin Adt - Reason: Transfer to a Procedural area)175 (MAR Unhold - Provider: Admin Adt) nitroGLYcerin (Nitrostat) disintegrating tablet 0.4 mg 0.4 mg, Sublingual, EVERY 5 MIN PRN, Starting on Mon10/04/22 at 1810, Until Mon10/06/22 at 0054, Chest pain, May repeat every 5 minutes for a total of three doses. Notify provider if chest pain not relieved with nitroglycerin. Do not administer nitroglycerin if the patient has received or taken phosphodiesterase (PDE-5) inhibitors such as sildenafil, tadalafil or vardenafil within the last 24 to 72 hours., Routine 1617 (MAY Hold - Pro vider: Admin Adt - Reason: Transfer to a Procedural area)1757 ([facility] Unhold - Provider: Admin Adt) nitroGLYcerin 100 mcg/mL intracoronary dilution (CANCELED) PRN, Starting on Mon10/05/22 at 1647, Until Mon10/05/22 at 1711, Intra-Operative (Intra-Procedure), Routine 164 (Given - Provid er: Yves Fernandez MD) perflutren protein-A microsphers (Optison) (0.22 mg/mL) injection 0.5 mL (COMPLETED) 0.5 mL, Intravenous, ONCE PRN, 1 dose, Starting on Mon10/05/22 at 1220, Until Mon10/05/22 at 1130, for enhancement of sub-optimal echo images, Echo Lab (Intra-Procedure), Routine 1130 (Given - Provid er: Linda Washburn) sodium chloride 0.9 % (flush) (BD PosiFlush Normal Saline 0.9) flush 5-20 mL 5-20 mL, Intravenous, EVERY 1 MIN PRN, Starting on Mon10/04/22 at 1810, Until Mon10/06/22 at 0054, flush, Flush pertains to all indwelling lines. Flush per protocol found in the job aid using the link provided on this medication record., Routine 1617 (May - Pro vider: Admin Adt - Reason: Transfer to a Procedural area)1757 ([facility] Unhold - Provider: Admin Adt) sodium chloride 0.9 % (flush) (BD PosiFlush Normal Saline 0.9) flush 5-20 mL 5-20 mL, Intravenous, EVERY 1 MIN PRN, Starting on Mon10/04/22 at 1907, Until Mon10/06/22 at 0054, flush, Flush pertains to all indwelling lines. Flush per protocol found in the job aid using the link provided on this medication record., Routine 1617 (May - Pro vider: Admin Adt - Reason: Transfer to a Procedural area)1757 ([facility] Unhold - Provider: Admin Adt) verapamiL (Isoptin) (2.5 mg/mL) injection (CANCELED) PRN, Starting on Mon10/05/22 at 1647, Until Mon10/05/22 at 1711, Administer over 2 Minutes, Intra-Operative (Intra-Procedure) 1647 (Given - Provid er: Yves Fernandez MD) Linked Groups Order Group 1: POCT Fingerstick Glucose (CANCELED) Routine, EVERY 4 HOURS, First occurrence on Mon10/04/22 at 202, Until Specified, Consider choosing EVERY 4 HOURS as frequency for: - Type 1 Diabetes - At least 24 hours after coming off an insulin drip - At least 24 hours after admission for DKA - Hypoglycemia unawareness - Patients who are otherwise unstable Select the same frequency for the correction bolus insulin order And insulin lispro (HumaLOG;Admelog) (100 unit/mL) subcutaneous injection vial 2-12 UnitsJump to med 2-12 Units, Subcutaneous, EVERY 4 HOURS SCHEDULED, First dose on Mon10/04/22 at 2100, Until Discontinued, CORRECTION BOLUS [2-12 Units] Resistant Sliding Scale (BG in mg/dL) Correction Factor 10 (1 unit of insulin is expected to drop the glucose 10 mg/dL) BG 140 - 160 Give 2 units BG 161 - 180 Give 4 units BG 181 - 200 Give 6 units BG 201 - 220 Give 8 units BG 221 - 240 Give 10 units BG greater than 240, give 12 units and recheck BG in 2 hours. - If recheck BG is LESS than 240, give no insulin and resume schedule. - If recheck BG is GREATER than 240, give 12 units and repeat BG in 2 hours (no more than 3 times) & call for new insulin orders. DO NOT hold if NPO, unless specifically directed to do so by written order. Per Blood Glucose Monitoring Policy, re-check a BG of > 240 mg/dL in 2 hours, Routine Group 2: nicotine (Nicoderm CQ) 21 mg/24 hr patch 21 mgJump to med 21 mg (1 patch), Transdermal, Administer over 24 Hours, DAILY, First dose on Mon10/04/22 at 2000, Until Discontinued, Apply new patch to clean, dry, hair-free skin on the upper body or upper outer arm; each patch should be applied to a different site. , Routine And nicotine (Nicoderm CQ) 21 mg/24 hr patch Patch VerificationJump to med Transdermal, 2 TIMES DAILY, First dose on Mon10/05/22 at 0715, Until Discontinued, Verify nicotine 21 mg/24 hr patch Group 3: heparin (porcine) 50 units/mL in dextrose 5% 500 mL infusionJump to med 0-5,000 Units/hr (0-100 mL/hr), Intravenous, CONTINUOUS, Starting on Mon10/04/22 at 1900, Until Mon10/06/22 at 0054, Begin infusion at 1,000 units per hr (12 units/kg/hr). Maximum initial infusion rate is 1,000 units/hr. Infusion doses are rounded to the nearest 50 units. Target Heparin UFH Level (anti-Xa activity) = 0.3 - 0.7 international unit/mL Start adjustment schedule 6 hours after starting infusion. If Heparin UFH Level is: - Less than 0.1 international unit/mL: Administer PRN bolus and increase rate by 550 units per hr (4 units/kg/hr) - 0.1 - 0.19 international unit/mL: Administer PRN bolus and increase rate by 250 units per hr (2 units/kg/hr) - 0.2 - 0.29 international unit/mL: NO BOLUS and increase rate by 250 units per hr (2 units/kg/hr) - 0.3 - 0.7 international unit/mL: No change - 0.71 - 0.79 international unit/mL: NO BOLUS and decrease rate by 150 units per hr (1 units/kg/hr) - 0.8 - 0.99 international unit/mL: NO BOLUS and decrease rate by 250 units per hr (2 units/kg/hr) - Greater than or equal to 1.00 international unit/mL: Hold infusion for 60 minutes then decrease rate by 400 units per hour (3 units/kg/hr) Obtain Heparin UFH Level 6 hours after initiating heparin. Then 6 hours after each dose adjustment. When 2 consecutive Heparin UFH Level within target range of 0.3 - 0.7 international unit/mL, change Heparin UFH Level to once every 24 hours with A.M. labs while on heparin. RN to order required Heparin UFH Level - Per Protocol, Routine And heparin (porcine) (1,000 units/mL) injection 0-4,000 UnitsJump to med 0-4,000 Units, Intravenous, BOLUS PER HEPARIN PROTOCOL, Starting on Mon10/04/22 at 1809, Until Mon10/06/22 at 0054, Per Protocol, START ADJUSTMENT SCHEDULE 6 HOURS AFTER STARTING INFUSION Bolus doses are rounded to the nearest 100 units. If Heparin UFH Level is: - Less than 0.1 international unit/mL: Bolus 60 units/kg (Maximum of 4,000 units) = Bolus 4,000 units - 0.1 - 0.19 International unit/mL: Bolus 30 units/kg (Maximum of 2,000 units) = Bolus 2,000 units - Equal to or greater than 0.2 international unit/mL: No Bolus, Routine Group 4: glucose (Glutose) 40% oral geLJump to med 15-30 g of glucose, Buccal, EVERY 30 MIN PRN, Starting on Mon10/04/22 at 1907, Until Mon10/06/22 at 0054, Low blood sugar, For BG 50-70 mg/dL: Oral treatment preferred: If able to drink, give 120 mL Juice or Regular (not diet) soda OR If NPO, give 15 gram glucose 40% oral gel massaged into buccal mucosa OR if unconscious or uncooperative, give 25 gram (250 mL) Dextrose 10% IV over 15 minutes per protocol OR, if no IV access, 1 mg Glucagon IM. For BG less than 50 mg/dL: Oral treatment preferred: If able to drink, give 240 mL [...] minutes. May repeat juice/soda, gel, dextrose or glucagon once per episode. For persistent hypoglycemia, consider longer-acting treatment for the duration of the active insulin. 1 tube of Glutose-15 contains 15 grams of glucose (net weight of tube = 37.5 grams.), Routine Or dextrose 10% infusionJump to med 250 mL, at 1,000 mL/hr, Intravenous, EVERY 30 MIN PRN, Starting on Mon10/04/22 at 1907, Until Mon10/06/22 at 0054, For BG 50-70 mg/dL: Oral treatment preferred: If able to drink, give 120 mL Juice or Regular (not diet) soda OR If NPO, give 15 gram glucose 40% oral gel massaged into buccal mucosa OR if unconscious or uncooperative, give 25 gram (250 mL) Dextrose 10% IV over 15 minutes per protocol OR, if no IV access, 1 mg Glucagon IM. For BG less than 50 mg/dL: Oral treatment preferred: If able to drink, give 240 mL [...] minutes. May repeat juice/soda, gel, dextrose or glucagon once per episode. For persistent hypoglycemia, consider longer-acting treatment for the duration of the active insulin. Or glucagon (Glucagen) (1 mg/mL) injection solution 1 mgJump to med 1 mg, Intramuscular, EVERY 30 MIN PRN, Starting on Mon10/04/22 at 1907, Until Mon10/06/22 at 0054, Low blood sugar, For BG 50-70 mg/dL: Oral treatment preferred: If able to drink, give 120 mL Juice or Regular (not diet) soda OR If NPO, give 15 gram glucose 40% oral gel massaged into buccal mucosa OR if unconscious or uncooperative, give 25 gram (250 mL) Dextrose 10% IV over 15 minutes per protocol OR, if no IV access, 1 mg Glucagon IM. For BG less than 50 mg/dL: Oral treatment preferred: If able to drink, give 240 mL [...] minutes. May repeat juice/soda, gel, dextrose or glucagon once per episode. For persistent hypoglycemia, consider longer-acting treatment for the duration of the active insulin., Routine documented in this encounter Care Teams Collector Of Internal Revenue Relationship Specialty Start Date End Date Karen Barbosa MD [address] [place] [address] [place] [address] PCP - General Family Medicine 10/04/22 documented as of this encounter
--- OUTSIDE RECORDS SUMMARY | 2023-10-24 15:59 | XMS_ITS | Encounter Summary ---
Author Organization [facility] [place] [address] Care Team Providers Care Blocker Automatic Name Role Phone Karen Barbosa MD Primary Care Provider [phone] Reason for Visit * Auth/Cert (Routine) Specialty Diagnoses / Procedures Referred By Keith t Referred To Contact Diagnoses Unstable angina Chest Pain Yosef Wilkes MD [facility] [place] [address] [facility] Referral ID Status Reason Start Date Expiration Date Visits Re quested Visits Authorized [id number] 1 1 Encounter Details Date Type Department Care Team (Late st Contact Info) Description 10/05/2022 12:30 PM EDT - 10/05/2022 1:30 PM EDT Surgery [employer] [place] [address] Amanda Aleman MD [facility] [place] [address] CARDIAC CATHETERIZATION Social History Tobacco Use Types Packs/Day Years Used Date Smoking Tobacco: Every Day Cigarettes 1 40 Smokeless Tobacco: Never Alcohol Use Standard Drinks/Week Comments Yes 7 (1 standard drink = 0.6 oz pur e alcohol) [facility] Inpatient Questions Answer Date Recorded [...] Sign Reading Time Taken Comments Blood Pressure 110/77 10/05/2022 11:42 AM EDT Pulse 57 10/05/2022 11:42 AM EDT Temperature 36.5 ??C (97.7 ??F) 10/05/2022 1 1:42 AM EDT Respiratory Rate 20 10/05/2022 11:4 2 AM EDT Oxygen Saturation 91% 10/05/2022 11: 42 AM EDT Inhaled Oxygen Concentration - - Weight 134.8 kg (297 lb 3.2 oz) 10/05/2022 4:05 AM EDT Height - - Body Mass Index 40.31 02/24/2022 9:33 AM EST documented in this encounter Discharge Summaries * Anny Ely PA - 10/05/2022 9:52 AM EDT Discharge Summary Patient Name: Samy Patricio Jr. Patient Age: 56 y.o. Language: Central African Admit date: 10/04/2022 Discharge date and time: [...] Information: MD Anny Oh PA-C Cardiovascular Medicine [phone] Discharge Diagnoses (Hospital Problems) and Secondary Diagnoses [...] without sciatica Operations/Major Procedures and CV studies: [facility] 10/05/22: Hemodynamics: Left Heart Pressures Resting: Syst [...] hypertension, hyperlipidemia comes into the ED at [facility] for chest pain. Patient reports having chest [...] and plavix and patient was transferred to [facility] for unstable angina. Patient still reports having 2/10 chest pain currently. Patient reports no fevers, no chills, no nausea, no vomiting, no diarrhea. Patient has no other complaints. Hospital Course: #Chest pain concerning for unstable angina # ASCVD (s/p EDEN to RCA 07/2019 ; prior PCI with EDEN RCA and Lcx) # HTN # HLD Samy Oreilly Sheng Acosta. presented as hospital transfer from [facility] for chest pain concerning for unstable angina. At [facility], Troponin negative and EKG without ischemic changes though chest pain at rest without relief of nitro x 3 on 10/04/22. He was loaded with ASA 325mg x1 and clopidogrel (10/04/22), and IV heparin with resolution of chest pain. Home metoprolol and high intensity atorvastatin continued. Transferred to [facility] for further workup which included TTE 10/05/2022 showing preserved LVEF without regional WMAs. LHC 10/05/2022 showing no new obstructive disease and patent prior stents. Cath access site remained stable following procedure. Ambulated post cath without angina. Patient and preferred to be discharged night of [facility]. Follow up with Dr. Kingston as scheduled [...] by mouth daily. 25 mg Refills: 0 hlzrwshkbln-uyqmxofuiaab-pjynshroxr 100-62.5-25 mcg Commonly known as: Trelegy Ellipta [...] of 8A-5PM please call the Cardiology Clinic [phone] to speak with a nurse. All other hours please call the Hospital Telephone Maintenance Mechanic [phone] and ask to speak to the credit review officer on-call. Return to work: One week Driving: No driving for 48 hours after cath Follow up Appointments: Doctor Where Phone # Date Time PCP Karen Barbosa MD [address] [place] [phone] 10/12/2022 11 AM Cardiology Padmini Kingston MD [facility] Cardiology [phone] 10/18/2022 11 AM Home oxygen therapy: N/A Arrangements for VNA/home care: N/A General Instructions None Future Appointments and Orders Future Appointments and Orders Future Appointments Provider Department Dept Phone 03/09/2023 10:40 AM Ramiro, Tania, OD; DILATION AND TEST, RAMIRO; TECH, RAMIRO Ophthalmologyat [facility] Arrive at: Contract Administrator Area [phone] Discharge References/Attachments None Anny Ely PA-C 10/05/2022 [...] of 8A-5PM please call the Cardiology Clinic [phone] to speak with a nurse. All other hours please call the Hospital Telephone Maintenance Mechanic [phone] and ask to speak to the credit review officer on-call. Return to work: One week Driving: No driving for 48 hours after cath Follow up Appointments: Doctor Where Phone # Date Time PCP Karen Barbosa MD [address] [place] [phone] 10/12/2022 11 AM Cardiology Padmini Kingston MD [facility] Cardiology [phone] 10/18/2022 11 AM Home oxygen therapy: N/A [...] TEST BLOOD GLUCOSE TWICE A DAY 06/23/2020 chkymadvkbn-jlvxinqib-sn lanter 100-62.5-25 mcg Disk with Device Inhale [...] note were not included. CARDIOLOGY APP2 - [facility] DAILY PROGRESS NOTE Page [phone] to reach a provider 03/10 Admit Date: [...] status is at baseline. Labs: Recent Labs 10/05/22 01010/04/222155 WBC 8.5 8.2 HGB 16.6* 17.1* HCT [...] 17 PROBNP -- 40 Endocrine Recent Labs 10/05/22 010 HA1C 7.4* Recent Labs 10/05/22 0104 CHLPL 133 TRIG 355 HDL 32 CHOLHDL [...] CPAP) who presents as hospital transfer from [facility] for unstable angina. Troponin negative and [...] Discharge Location: PT: OT: PCP Robinson Vazquez, DECORATION CHECKER [phone] Anny Ely PA-C 10/05/2022 Cardiology Staff I [...] hypertension, hyperlipidemia comes into the ED at [facility] for chest pain. Patient reports having chest [...] and plavix and patient was transferred to [facility] for unstable angina. Patient still reports having [...] Post-operative nausea and vomiting Had scope at [facility] and had vomiting after Surgical History/Problems: Past Surgical History: Procedure Laterality Date CATARACT REMOVAL Right 2017 CORONARY ANGIOPLASTY WITH STENT PLACEMENT 08/2017 PRO UPPER GI ENDOSCOPY, BIOPSY 04/26/2011 EGD WITH BIOPSY performed by KIRSTEN DAMON at [facility] ENDOSCOPY PRO UPPER GI ENDOSCOPY, BIOPSY N/A 09/27/2018 UPPER GASTROINTESTINAL ENDOSCOPY,WITH BIOPSY SINGLE OR MULTIPLE (WRVU 2.49) performed by Luc Hdz MD at [facility] ENDOSCOPY PRO UPPER GI ENDOSCOPY, BIOPSY N/A 01/26/2021 EGD WITH BIOPSY (WRVU 2.49) performed by Nathaniel Azevedo MD at [facility] ENDOSCOPY ROTATOR CUFF REPAIR Left Significant Family [...] Misc TEST BLOOD GLUCOSE TWICE A DAY xqfcptugvqg-ucyjmlwdh-joeroalc 100-62.5-25 mcg Disk with Device 1 puff [...] and plavix load and was transferred to [facility] for unstable angina TREATMENT PLAN: Unstable angina [...] Admitted From: Transfer from another hospital Location: [facility] Reason for Hospitalization: chest pain Covid [...] Post-operative nausea and vomiting Had scope at [facility] and had vomiting after Hospitalizations Within the Past 30 Days: no previous admission in last 30 days Current Decision-Making Capacity: Self If AD's have not been completed the following surrogate would be surrogate decision maker per [place] surrogate decision making law. (Only good for 180 days) Any patient receiving care in [place] must abide by [place] law. The hierarchy for surrogate decision making [...] (i) The agent with financial power of attorney recruiter or a conservator appointed in accordance with [...] Current DME: none Home Address confirmed as: [address] [address] Social & Family Supports: All names listed below confirmed with patient as current and correct Extended Emergency Contact Information Primary Emergency Contact: Danica Patricio Address: [address] [address] [facility] [employer] [facility] Mobile Relation: Spouse Secondary Emergency [place]: [place] [address] [facility] Relation: Child Current Care Provided by: self [...] Product type* / Secondary Insurance: [employer] [place] ONLY if patient has Medicare A&B - Does this patient have secondary insurance?: Yes ; Prescription Coverage: Yes Preferred Pharmacy: [facility] [address] [address] Status: Patient is a : No Primary Care Provider confirmed: Karen Barbosa MD [phone] Patient/Caregiver Goals of Treatment: return home Potential [...] for further details. ISABELLE Morataya 10/05/2022 Pager [phone] documented in this encounter Plan of Treatment Upcoming Encounters Date Type Department Care Team (Late st Contact Info) Description 03/20/2024 10:00 AM EST Office [place] [address] Tania Gates OD [facility] [place] [address] documented as of this encounter Procedures Procedure [...] Glucose, POC 181 65 - 199 mg/dL [facility] Comment: Supplemental ranges: <140 mg/dL before meals <180 mg/dL all other times of the day Blood 10/05/2022 7:49 PM EDT 10/05/2022 7:49 PM EDT Yosef Wilkes MD POINT OF CARE TEST O SAEID Performing Organization Address [facility] Co de Phone Number [facility] [place] [address] * POCT Glucose (10/05/2022 5:24 PM EDT) Glucose, POC 112 65 - 199 mg/dL [facility] Comment: Supplemental ranges: <140 mg/dL before meals <180 mg/dL all other times of the day Blood 10/05/2022 5:24 PM EDT 10/05/2022 5:24 PM EDT Yosef Wilkes MD POINT OF CARE TEST O SAEID Performing Organization Address [facility] Co de Phone Number [facility] [place] [address] * CARDIAC CATHETERIZATION (10/05/2022 5:15 PM EDT) Anatomical Region Laterality Modality Other Narrative 10/05/2022 5:57 PM EDT ?[facility] ? Cardiac Catheterization/Intervention Report ? Patient Name: Sheng, Samy Jr. S. ? Procedure Date: 10/05/2022 ? A #: [id number] ? Primary Physician: Amanda Aleman I ? Case #: [id number] ? File Name: [id number] ? Catheterization Order Number: [id number] ? [facility] ? Final Report [place], [place] ? Patient Name: ? Samy Jr. S. Ellaner ?ID#: ?[id number] ? : ?1965 ? Procedure Date: ? October 05, 2022 ?Case #: ? [id number] ? Room: ? 1 ? Case Physician: ? Amanda Aleman M.D. ? Start: ?16:47 ?Fellow: ? Yves Fernandez M.D. ?Admission: ??10/04/2022 ?Nigel Hyman M.D. ? Referring Physician: ??Antwan Dailey. ? Procedures: ?* Coronary Angiography ?* Left [...] procedure was Urgent. The indication for ?the labor mediator visit is ACS greater than 24 hrs. [...] 1965 ? Height: 183 cm ? Account: [id number] Age: 56 yrs ? Weight: 135 kg Gender: Male ?BSA: 2.5 m2 Ordering Physician: YOSEF WILKES Referring Physician: OSCAR ACOSTA Performed By: MOUNA Rollins Reason For Study: Unstable angina Exam Location: [facility]. Interpretation Summary Optison was used for left [...] right atrium now measured mildly dilated. Procedure Complete-[id number]. Image enhancement Optison was used for left [...] Report Name: SAMY PATRICIO JR Study Date: :08 AMBP: 110/78 mmHg Patient Location: [address] : 1965 Height: 183 cm Account: [id number] Age: 56 yrs Weight: 135 kg Gender: Male BSA: 2.5 m2 Ordering Physician: YOSEF WILKES Referring Physician: OSCAR ACOSTA Performed By: MOUNA Rollins Reason For Study: Unstable angina Exam Location: [facility]. Interpretation Summary Optison was used for left [...] night, rightatrium now measured mildly dilated. Procedure Complete-[id number]. Image enhancement Optison was used for left [...] Glucose, POC 147 65 - 199 mg/dL [facility] Comment: Supplemental ranges: <140 mg/dL before meals <180 mg/dL all other times of the day Blood 10/05/2022 11:4 5 AM EDT 10/05/2022 11:45 AM EDT Yosef Wilkes MD POINT OF CARE TEST O RDERABLES [facility] [place] [address] * Basic Metabolic Panel (non-fasting) (10/05/2022 8:43 AM EDT) Glucose 160 65 - 199 mg/dL [facility] Comment:Diabetes: >=200 mg/d L plus symptoms Blood Urea Nitrogen 18 10 - 20 mg/dL [facility] Creatinine 1.35 0.80 - 1.50 mg/dL [facility] Sodium 137 135 - 145 mmol/L [facility] Potassium 4.2 3.5 - 5.0 mmol/L [facility] Comment: Please note: ??Patients with WBC >100,000 may have falsely elevated Potassium levels. ??For accurate Potassium quantification in these patients send serum separator tube (gold top) for subsequent determinations. ??Contact the Clinical Chemistry Laboratory if there are any questions. Chloride 98 98 - 107 mmol/L [facility] Carbon Dioxide 31 22 - 31 mmol/L [facility] Anion Gap 8 5 - 15 mmol/L [facility] Calcium 9.4 8.5 - 10.5 mg/dL [facility] Est Glomerular Filtration Rate 62 >=60 mL/min/1. 73 m?? [facility] Comment: This patient's estimated GFR was [...] In Lab Yosef Wilkes MD CHEMISTRY ORDERABLES [facility] [place] [address] * Heparin (unfractionated) Level (10/05/2022 8:43 AM EDT) UF Heparin 0.11 IU/mL [facility] Comment: Heparin (anti-Xa) levels [...] MD HEMATOLOGY ORDERABLE S Performing Organization Address City/[facility]/ZIP Co de Phone Number [facility] [place] [address] * POCT Glucose (10/05/2022 7:32 AM EDT) Glucose, POC 151 65 - 199 mg/dL [facility] Comment: Supplemental ranges: <140 mg/dL before meals <180 mg/dL all other times of the day Blood 10/05/2022 7:32 AM EDT 10/05/2022 7:32 AM EDT Yosef Wilkes MD POINT OF CARE TEST O RDERABLES Performing Organization Address City/[facility]/ZIP Co de Phone Number [facility] [place] [address] * POCT Glucose (10/05/2022 4:08 AM EDT) Glucose, POC 179 65 - 199 mg/dL [facility] Comment: Supplemental ranges: <140 mg/dL before meals <180 mg/dL all other times of the day Blood 10/05/2022 4:08 AM EDT 10/05/2022 4:08 AM EDT Yosef Wilkes MD POINT OF CARE TEST O RDERABLES Performing Organization Address City/[facility]/ZIP Co de Phone Number [facility] [place] [address] * POCT Glucose (10/05/2022 1:41 AM EDT) Glucose, POC 196 65 - 199 mg/dL [facility] Comment: Supplemental ranges: <140 mg/dL before meals <180 mg/dL all other times of the day Blood 10/05/2022 1:41 AM EDT 10/05/2022 1:41 AM EDT Yosef Wilkes MD POINT OF CARE TEST O RDERABLES Performing Organization Address City/[facility] Co de Phone Number [facility] [place] [address] * Differential, Automated (10/05/2022 1:04 AM EDT) [facility] Neutrophil % 65.7 % [facility] Neutrophil Absolute 5.59 1.70 - 6.10 x10(3)/[facility] Lymph % 21.5 % [facility] Lymphocytes Abs 1.8 0.9 - 3.2 x10(3)/[facility] Monocyte % 8.5 % [facility] Monocyte Abs 0.7 0.3 - 0.9 x10(3)/[facility] Eos % 3.1 % [facility] Eosinophils Abs 0.3 0.0 - 0.4 x10(3)/[facility] Basophil % 0.8 % [facility] Baso Absolute 0.1 0.0 - 0.1 x10(3)/[facility] Immature Gran % 0.40 % [facility] Comment: Immature granulocytes(IG's)percentage and absolute count will include metamyelocytes, myelocytes, and promyelocytes. Blood smears from CBCs yielding IG's will be scanned manually for concordance. If this scan disagrees with the automated IG or if promyelocytes are noted, a manual differential will be performed. Immature Gran Absolute 0.03 0.00 - 0.04 x10(3)/mcL [facility] Blood 10/05/2022 1:04 AM EDT 10/05/2022 1:14 AM EDT Narrative Resulting Agency Comment Spec In Lab Teddy Willett MD HEMATOLOGY ORDERABLE S Performing Organization Address City/[facility]/ZIP Co de Phone Number [facility] [place] [address] * (ABNORMAL) Hemogram (10/05/2022 1:04 AM EDT) White Blood Cell 8.5 4.0 - 9.5 x10(3)/mc L [facility] Red Blood Cell 5.63(H) 4.58 - 5.54 x10(6)/mc L [facility] Hemoglobin 16.6(H) 13.7 - 16.5 g/dL [facility] Hematocrit 51.0(H) 40.5 - 48.5 % [facility] Mean Cell Volume 90.6 82.9 - 93.1 fL [facility] Mean Cell Hemoglobin 29.5 27.5 - 32.1 pg [facility] Mean Cell Hemoglobin Concentration 32.5 32.0 - 35.7 g/dL [facility] Platelet 203 145 - 357 x10(3)/mc L [facility] RDW Standard Deviation 47.6(H) 36.0 - 45.0 fL [facility] RDW coefficient of variation 14.3(H) 11.4 - 13.8 % [facility] Mean Platelet Volume 9.7 7.6 - 12.9 fL [facility] NRBC% auto 0.0 % [facility] NRBC Absolute 0.000 0.000 - 0.000 x10(3)/mc L [facility] Blood 10/05/2022 1:04 AM EDT 10/05/2022 1:14 AM EDT Narrative Resulting Agency Comment Spec In Lab Teddy Willett MD HEMATOLOGY ORDERABLE S Performing Organization Address City/[facility]/ZIP Co de Phone Number [facility] [place] [address] * Heparin (unfractionated) Level (10/05/2022 1:04 AM EDT) Pathologist [facility] UF Heparin 0.11 IU/mL [facility] Comment: Heparin (anti-Xa) levels should be [...] Lab Teddy Willett MD HEMATOLOGY ORDERABLE S [facility] [place] [address] * (ABNORMAL) Glucose, fasting (10/05/2022 1:04 AM EDT) Pathologist [facility] Glucose Fasting 188(H) 65 - 99 mg/dL [facility] Comment: ?Fasting* Glucose Interpretive Criteria [...] of Diabetes Mellitus, Position Statement from the [place] Diabetes Association. ??Diabetes Care, Volume 33, Supplement 1, Mar 2009 Blood 10/05/2022 1:04 AM EDT 10/05/2022 1:14 AM EDT Narrative Resulting Agency Comment Spec In Lab Teddy Willett MD CHEMISTRY ORDERABLES [facility] [place] [address] * Triglyceride (10/05/2022 1:04 AM EDT) Triglyceride 355 mg/dL [facility] Comment: Average Risk/Lower Risk: <150 mg/dL Borderline High Risk: 150-199 mg/dL High Risk: 200-499 mg/dL Very High Risk: >yr=185 mg/dL Blood 10/05/2022 1:04 AM EDT 10/05/2022 1:14 AM EDT Narrative Resulting Agency Comment Spec In Lab Teddy Willett MD CHEMISTRY ORDERABLES Performing Organization Address City/[facility]/ZIP Co de Phone Number [facility] [place] [address] * HDL/Cholesterol Profile (10/05/2022 1:04 AM EDT) Cholesterol, Total 133 mg/dL [facility] Comment: Lower Risk: <200 mg/dL Average Risk: 200-239 mg/dL Higher Risk: >fa=827 mg/dL HDL Cholesterol 32 mg/dL [facility] Comment: Males: ?? Higher Risk: <40 mg/dL Females: ?? Higher Risk: <50 mg/dL Cholesterol/HDL Ratio 4.2 ratio [facility] Chol/HDL Interpretation See Note [facility] Comment: Lipid management should be guided by a patient? s ASCVD risk, goals and preferences. ACC/AHA Guidelines recommend high intensity statin if clinical ASCVD or LDL greater than or equal to 190 mg/dL. http://tinyurl.com/VLF-JCI-Rqzvvtssr Measure LDL if Total Cholesterol minus HDL Cholesterol is greater than 220 mg/dL. Adults aged 40-75 with LDL 70-189 mg/dL should have their 10 year ASCVD risk estimated with the ACC/AHA ASCVD risk estimator jewelry http://tools.acc.org/YXMNJ-Aomo-Xjntvwiey/ Statin should be discussed if risk greater [...] Willett MD CHEMISTRY ORDERABLES Performing Organization Address City/[facility]/ZIP Co de Phone Number [facility] [place] [address] * LDL Cholesterol, Direct (10/05/2022 1:04 AM EDT) LDL Cholesterol, Direct 61 mg/dL [facility] Comment: Lowest Risk: <100 mg/dL Lower Risk: 100-129 mg/dL Borderline High Risk: 130-159 mg/dL High Risk: 160-189 mg/dL Very High Risk: >dj=437 mg/dL Blood 10/05/2022 1:04 AM EDT 10/05/2022 1:14 AM EDT Narrative Resulting Agency Comment Spec In Lab Teddy Willett MD CHEMISTRY ORDERABLES Performing Organization Address City/[facility] Co de Phone Number [facility] [place] [address] * (ABNORMAL) Hemoglobin A1c (10/05/2022 1:04 AM EDT) Hemoglobin A1c 7.4(H) 4.3 - 5.6 % [facility] Comment: Reference Range: 4.3 [...] Mellitus, Diabetes Care 2013; 36: Suppl. 1, S67-74 Estimated Average Glucose 165 mg/dL [facility] Comment: eAG equivalents for HbA1c percentages: [...] into estimated average glucose values. ??Diabetes Care 2008:31(8):7022-9847. Blood 10/05/2022 1:04 AM EDT 10/05/2022 1:14 AM EDT Narrative Resulting Agency Comment Spec In Lab Teddy Willett MD CHEMISTRY ORDERABLES [facility] [place] [address] * (ABNORMAL) POCT Glucose (10/04/2022 11:38 PM EDT) Glucose, POC 292(H) 65 - 199 mg/dL [facility] Comment: Supplemental ranges: <140 mg/dL before meals <180 mg/dL all other times of the day Blood 10/04/2022 11:3 8 PM EDT 10/04/2022 11:38 PM EDT Yosef Wilkes MD POINT OF CARE TEST O RDERABLES Performing Organization Address City/[facility]/[place] [address] * Differential, Automated (10/04/2022 9:56 PM EDT) Neutrophil % 61.6 % [facility] Neutrophil Absolute 5.06 1.70 - 6.10 x10(3)/[facility] Lymph % 26.1 % [facility] Lymphocytes Abs 2.1 0.9 - 3.2 x10(3)/[facility] Monocyte % 7.7 % [facility] Monocyte Abs 0.6 0.3 - 0.9 x10(3)/[facility] Eos % 3.5 % [facility] Eosinophils Abs 0.3 0.0 - 0.4 x10(3)/[facility] Basophil % 1.0 % [facility] Baso Absolute 0.1 0.0 - 0.1 x10(3)/[facility] Immature Gran % 0.10 % [facility] Comment: Immature granulocytes(IG's)percentage and absolute count will include metamyelocytes, myelocytes, and promyelocytes. Blood smears from CBCs yielding IG's will be scanned manually for concordance. If this scan disagrees with the automated IG or if promyelocytes are noted, a manual differential will be performed. Immature Gran Absolute 0.01 0.00 - 0.04 x10(3)/[facility] Blood 10/04/2022 9:56 PM EDT 10/04/2022 10:03 PM EDT Narrative Resulting Agency Comment Spec In Lab Vivek Lee MD HEMATOLOGY ORDERAB LES Performing Organization Address City/[facility]/[place] [address] * (ABNORMAL) Hemogram (10/04/2022 9:56 PM EDT) White Blood Cell 8.2 4.0 - 9.5 x10(3)/ L [facility] [facility] Red Blood Cell 5.80(H) 4.58 - 5.54 x10(6)/mc L [facility] Hemoglobin 17.1(H) 13.7 - 16.5 g/dL [facility] Hematocrit 52.6(H) 40.5 - 48.5 % [facility] Mean Cell Volume 90.7 82.9 - 93.1 fL [facility] Mean Cell Hemoglobin 29.5 27.5 - 32.1 pg [facility] Mean Cell Hemoglobin Concentration 32.5 32.0 - 35.7 g/dL [facility] Platelet 220 145 - 357 x10(3)/mc L [facility] RDW Standard Deviation 47.8(H) 36.0 - 45.0 fL [facility] RDW coefficient of variation 14.4(H) 11.4 - 13.8 % [facility] Mean Platelet Volume 9.6 7.6 - 12.9 fL [facility] NRBC% auto 0.0 % [facility] NRBC Absolute 0.000 0.000 - 0.000 x10(3)/ L [facility] Blood 10/04/2022 9:56 PM EDT 10/04/2022 10:03 PM EDT Narrative Resulting Agency Comment Spec In Lab Vivek Lee MD HEMATOLOGY ORDERAB LES Performing Organization Address City/State/[facility] Co de Phone Number [facility] [place] [address] * Troponin (10/04/2022 9:56 PM EDT) Troponin-T, High Sensitivity 16 <=22 ng/L [facility] Comment: This patient's troponin T concentration [...] troponin value can be found in the [facility] Test Catalog Troponin - [facility] Test Catalog Reference: Fourth Alba Definition of Myocardial Infarction. Journal of the [place] [employer] 2018;72:7001-3239 Blood 10/04/2022 9:56 PM EDT 10/04/2022 10:03 PM EDT Narrative Resulting Agency Comment Spec In Lab Teddy Willett MD CHEMISTRY ORDERABLES Performing Organization Address City/[facility]/ZIP Co de Phone Number [facility] [place] [address] * (ABNORMAL) POCT Glucose (10/04/2022 9:35 PM EDT) Glucose, POC 344(H) 65 - 199 mg/dL [facility] Comment: Supplemental ranges: <140 mg/dL before meals <180 mg/dL all other times of the day Blood 10/04/2022 9:35 PM EDT 10/04/2022 9:35 PM EDT Yosef Wilkes MD POINT OF CARE TEST O RDERABLES [facility] [place] [address] * POCT Glucose (10/04/2022 6:43 PM EDT) Glucose, POC 80 65 - 199 mg/dL [facility] Comment: Supplemental ranges: <140 mg/dL before meals <180 mg/dL all other times of the day Blood 10/04/2022 6:43 PM EDT 10/04/2022 6:43 PM EDT Yosef Wilkes MD POINT OF CARE TEST O RDERABLES Performing Organization Address [facility] Co de Phone Number [facility] [place] [address] * pro-Brain Natriuretic Peptide (10/04/2022 6:40 PM EDT) NT-proBNP 40 <=124 pg/mL [facility] Blood Venous Draw / Unknown 10/04/2022 6:40 PM EDT 10/04/2022 6:52 PM EDT Narrative Resulting Agency Comment Spec In Lab Vivek Lee MD CHEMISTRY ORDERABL ES Performing Organization Address [facility] de Phone Number [facility] [place] [address] * Magnesium (10/04/2022 6:40 PM EDT) Magnesium 1.07 0.69 - 1.07 mmol/L [facility] Blood Venous Draw / Unknown 10/04/2022 6:40 PM EDT 10/04/2022 6:52 PM EDT Narrative Resulting Agency Comment Spec In Lab Vivek Lee MD CHEMISTRY ORDERABL ES Performing Organization Address [facility] de Phone Number [facility] [place] [address] * (ABNORMAL) Basic Metabolic Panel (non-fasting) (10/04/2022 6:40 PM EDT) Glucose 75 65 - 199 mg/dL [facility] Comment:Diabetes: >=200 mg/d L plus symptoms Blood Urea Nitrogen 20 10 - 20 mg/dL [facility] Creatinine 1.54(H) 0.80 - 1.50 mg/dL [facility] Sodium 140 135 - 145 mmol/L [facility] Potassium 3.4(L) 3.5 - 5.0 mmol/L [facility] Comment: Please note: ??Patients with WBC >100,000 may have falsely elevated Potassium levels. ??For accurate Potassium quantification in these patients send serum separator tube (gold top) for subsequent determinations. ??Contact the Clinical Chemistry Laboratory if there are any questions. Chloride 98 98 - 107 mmol/L [facility] Carbon Dioxide 31 22 - 31 mmol/L [facility] Anion Gap 11 5 - 15 mmol/L [facility] Calcium 9.4 8.5 - 10.5 mg/dL [facility] Est Glomerular Filtration Rate 53(L) >=60 mL/min/1. 73 m?? [facility] Comment: This patient's estimated GFR [...] Lab Vivek Lee MD CHEMISTRY ORDERABL ES [facility] [place] [address] * Heparin (unfractionated) Level (10/04/2022 6:40 PM EDT) UF Heparin <0.04 IU/mL [facility] Comment: Heparin (anti-Xa) levels [...] MD HEMATOLOGY ORDERABLE S Performing Organization Address City/[facility]/ZIP Co de Phone Number [facility] [place] [address] * Troponin (10/04/2022 6:40 PM EDT) Troponin-T, High Sensitivity 17 <=22 ng/L [facility] Comment: This patient's troponin T concentration [...] troponin value can be found in the [facility] Test Catalog Troponin - [facility] Test Catalog Reference: Fourth Alba Definition of Myocardial Infarction. Journal of the [place] [employer] 2018;72:3691-9715 Blood 10/04/2022 6:40 PM EDT 10/04/2022 6:52 PM EDT Narrative Resulting Agency Comment Spec In Lab Yosef Wilkes MD CHEMISTRY ORDERABLES Performing Organization Address [facility] Co de Phone Number [facility] [place] [address] documented in this encounter Visit Diagnoses Not on filedocumented in this encounter Admitting Diagnoses Diagnosis Unstable [...] the duration of the active insulin. fentaNYL (pf) (50 mcg/mL) multi-dose injection PRN, Starting on Mon10/05/22 at 1635, Until Mon10/05/22 at 1711, Intra-Operative (Intra-Procedure), Routine Given 10/05/2022 4:35 PM EDT 50 mcg folic acid (Vitamin B9) tablet 1 mg [...] 1:50 AM EDT 2,000 Units heparin (porcine) (1,000 units/mL) injection PRN, Starting on Mon10/05/22 at 1652, Until Mon10/05/22 at 1711, Intra-Operative (Intra-Procedure), Routine Given 10/05/2022 4:52 PM EDT 6,000 Units heparin (porcine) 50 units/mL in dextrose [...] Given 10/05/2022 8:45 AM EDT 2 Units iohexoL (Omnipaque) (350 mg/mL) solution PRN, Starting on Mon10/05/22 at 1710, Until Mon10/05/22 at 1711, Intra-Operative (Intra-Procedure), Routine Given 10/05/2022 5:10 PM EDT 92 mLs lidocaine (Xylocaine) 1% (10 mg/mL) injection 3 [...] Given 10/04/2022 9:47 PM EDT 100 mg midazolam (pf) (Versed) (1 mg/mL) multi-dose injection PRN, Starting on Mon10/05/22 at 1635, Until Mon10/05/22 at 1711, Intra-Operative (Intra-Procedure), Routine Given 10/05/2022 4:35 PM EDT 1 mg nicotine (Nicoderm CQ) 21 mg/24 hr patch 21 mg 21 mg (1 patch), Transdermal, Administer over 24 Hours, DAILY, First dose on Mon10/04/22 at 1999, Until Discontinued, Apply new patch to clean, [...] hours., Routine nitroGLYcerin 100 mcg/mL intracoronary dilution PRN, Starting on Mon10/05/22 at 1647, Until Mon10/05/22 at 1711, Intra-Operative (Intra-Procedure), Routine Given 10/05/2022 4:47 PM EDT 150 mcg pantoprazole EC (Protonix) tablet 40 mg 40 mg, Oral, 2 TIMES DAILY, First dose on Mon10/04/22 at 2100, Until Discontinued, DO NOT CRUSH OR OPEN, Routine Given 10/05/2022 8:17 PM EDT 40 mg Given 10/05/2022 9:05 AM EDT 40 mg Given 10/04/2022 9:47 PM EDT 40 mg sodium chloride 0.9 % (flush) (BD PosiFlush [...] link provided on this medication record., Routine thiamine (Vitamin B-1) tablet 100 mg 100 mg, Oral, DAILY, First dose on Mon10/04/22 at 1999, Until Discontinued, Routine Given 10/05/2022 9:06 AM EDT 100 mg Given 10/04/2022 9:47 PM EDT 100 mg tiotropium bromide (Spiriva Respimat) 2.5 mcg/actuation inhaler 2 puff 2 puff, Inhalation, DAILY, First dose on Mon10/04/22 at 1999, Until Discontinued, Must be primed prior to first administration, Routine Given 10/05/2022 9:07 AM EDT 2 puffs Given 10/04/2022 9:49 PM EDT 2 puffs verapamiL (Isoptin) (2.5 mg/mL) injection PRN, Starting on Mon10/05/22 at 1647, Until Mon10/05/22 at 1711, Administer over 2 Minutes, Intra-Operative (Intra-Procedure) Given 10/05/2022 4:47 PM EDT 2 .5 mg documented in this encounter Active and [...] (Given - Provider: Sil Lopez RN) 1618 (MAR Hold - Provider: Admin Adt - Reason: Transfer to a Procedural area)170 (Not Given - Provider: Corinna Vallecillo RN - Reason: Transfer to a Procedural area)175 ([facility] Unhold - Provider: Admin Adt)2017 (Given - Provider: Sil Lopez RN) budesonide-formoteroL (Symbicort) 160-4.5 mcg/actuation inhaler 2 Inhalation 2 .Inhalation , Inhalation, 2 TIMES DAILY (RESPIRATORY THERAPY), First dose on Mon10/04/22 at 2000, Until Discontinued, Routine 214 (Given - Provider: Sil Lopez RN) 0507 (Given - Provider: Sil Lopez RN)1618 ([facility] Hold - Provider: Admin Adt - Reason: Transfer to a Procedural area)175 ([facility] Unhold - Provider: Admin Adt)2019 (Given - Provider: Sil Lopez RN) clopidogreL (Plavix) tablet 75 mg 75 mg, Oral, DAILY, First dose on Mon10/05/22 at 0900, Until Discontinued, Routine 09 (Given - Provid er: Corinna Vallecillo RN)1618 ([facility] Hold - Provider: Admin Adt - Reason: Transfer to a Procedural area)175 ([facility] Unhold - Provider: Admin Adt) folic acid (Vitamin B9) tablet 1 mg 1 mg, Oral, DAILY, First dose on Mon10/04/22 at 2000, Until Discontinued, Routine 2153 (Given - Provider: Sil Lopez RN) 0906 (Given - Provider: Corinna Vallecillo RN)1618 ([facility] Hold - Provider: Admin Adt - Reason: Transfer to a Procedural area)1758 ([facility] Unhold - Provider: Admin Adt) insulin glargine-ygfn (Semglee) (100 unit/mL) subcutaneous injection vial 40 Units (CANCELED) 40 Units, Subcutaneous, NIGHTLY, First dose (after last modification) on Mon10/04/22 at 2115, Until Discontinued, Routine 2255 (Given - Provider: Sil Lopez RN) 1618 ([facility] Hold - Provider: Admin Adt - Reason: Transfer to a Procedural area)172 ([facility] Unhold - Provider: ISABELLE Salazar) insulin glargine-ygfn (Semglee) (100 unit/mL) subcutaneous injection vial 64 Units 64 Units, Subcutaneous, NIGHTLY, First dose (after last modification) on Mon10/05/22 at 2100, Until Discontinued, Routine 2017 (Given - Provid er: Sil Lopez RN) insulin lispro (HumaLOG;Admelog) (100 unit/mL) subcutaneous injection vial 0-8 Units 0-8 Units, Subcutaneous, 3 TIMES DAILY WITH MEALS, First dose on Mon10/05/22 at 1830, Until Discontinued, [employer] Give 1 unit for every 10 grams carbohydrate. Hold if not eating or if BG less than 70 mg/dL., Routine 1848 (Given - Provid er: Corinna Vallecillo RN) [...] hours, Routine 2148 (Given - Provider: Sil Lopez RN)234 (Given - Provider: Sil Lopez, GUILLAUME) 0414 (Given - Provider: Sil Lopez RN)0845 (Given - Provider: Corinna Vallecillo RN)1147 (Given - Provider: Corinna Vallecillo RN)1600 (Not Given - Provider: Corinna Vallecillo RN - Reason: Order parameters not met)161 (MAY Hold - Provider: Admin Adt - Reason: Transfer to a Procedural area)175 ([facility]Y Unhold - Provider: Admin Adt)1950 (Given - Provider: Sil Lopez RN) metoprolol succinate XL (Toprol-XL) tablet 100 mg 100 mg, Oral, DAILY, First dose on Mon10/04/22 at 2000, Until Discontinued, DO NOT CRUSH OR OPEN, Routine 2146 (Given - Provider: Sil Lopez RN) 09 (Given - Provider: Corinna Vallecillo RN)161 (MAY Hold - Provider: Admin Adt - Reason: Transfer to a Procedural area)1757 (MAY Unhold - Provider: Admin Adt) nicotine (Nicoderm CQ) 21 mg/24 hr patch 21 mg(Linked Group 2) 21 mg (1 patch), Transdermal, Administer over 24 Hours, DAILY, First dose on Mon10/04/22 at 1999, Until Discontinued, Apply new patch to clean, dry, hair-free skin on the upper body or upper outer arm; each patch should be applied to a different site. , Routine 2147 (Patch Applied - Provider: Sil Lopez RN) 09 (Patch Removed - Provider: Corinna Vallecillo RN)09 (Patch Applied - Provider: Corinna Vallecillo RN)161 ([facility] Hold - Provider: Admin Adt - Reason: Transfer to a Procedural area)175 (MAY Unhold - Provider: Admin Adt)2244 (Due: Patch Removed - Provider: Automatic Discharge Provider - Comment: Time automatically adjusted from order being discontinued) nicotine (Nicoderm CQ) 21 mg/24 hr patch Patch Verification(Linked Group 2) Transdermal, 2 TIMES DAILY, First dose on Mon10/05/22 at 0715, Until Discontinued, Verify nicotine 21 mg/24 hr patch 0715 (Patch (dose an d location) verified - Provider: Sil Lopez RN)161 (MAY Hold - Provider: Admin Adt - Reason: Transfer to a Procedural area)175 (MAY Unhold - Provider: Admin Adt)2100 (Patch (dose and location) verified - Provider: Sil Lopez RN) pantoprazole EC (Protonix) tablet 40 mg 40 mg, Oral, 2 TIMES DAILY, First dose on Mon10/04/22 at 2100, Until Discontinued, DO NOT CRUSH OR OPEN, Routine 214 (Given - Provider: Sil Lopez RN) 0905 (Given - Provider: Corinna Vallecillo RN)161 ([facility] Hold - Provider: Admin Adt - Reason: Transfer to a Procedural area)175 ([facility] Unhold - Provider: Admin Adt)2016 (Given - [...] RN - Reason: Order parameters not met)161 ([facility] Hold - Provider: Admin Adt - Reason: Transfer to a Procedural area)175 ([facility] Unhold - Provider: Admin Adt)2018 (Given - Provider: Sil Lopez RN) sodium chloride 0.9 % (flush) (BD PosiFlush Normal Saline 0.9) flush 5 mL 5 mL, Intravenous, 2 TIMES DAILY, First dose on Mon10/04/22 at 2100, Until Discontinued, Routine 2100 (Not Given - Provider: Sil Lopez RN - Reason: See comment - Comment: previously flushed) 0907 (Given - Provider: Corinna Vallecillo RN)161 ([facility] Hold - Provider: Admin Adt - Reason: Transfer to a Procedural area)175 ([facility] Unhold - Provider: Admin Adt)2017 (Given - Provider: Sil Lopez RN) thiamine (Vitamin B-1) tablet 100 mg 100 mg, Oral, DAILY, First dose on Mon10/04/22 at 2000, Until Discontinued, Routine 214 (Given - Provider: Sil Lopez RN) 0906 (Given - Provider: Corinna Vallecillo RN)161 ([facility] Hold - Provider: Admin Adt - Reason: Transfer to a Procedural area)175 ([facility] Unhold - Provider: Admin Adt) tiotropium bromide (Spiriva Respimat) 2.5 mcg/actuation inhaler 2 puff 2 puff, Inhalation, DAILY, First dose on Mon10/04/22 at 2000, Until Discontinued, Must be primed prior to first administration, Routine 2149 (Given - Provider: Sil Lopez RN) 0907 (Given - Provider: Corinna Vallecillo RN)1618 (MAY Hold - Provider: Admin Adt - Reason: Transfer to a Procedural area)1758 ([facility]Y Unhold - Provider: Admin Adt) Continuous Medication [...] Heparin UFH Level - Per Protocol, Routine 1842 (New Bag - Provider: Nathaniel De La Fuente RN) 0151 (New Bag - Provider: Sil Lopez RN)1127 (Rate/Dose Change - Provider: Corinna Vallecillo RN)1618 (MAY Hold - Provider: Admin Adt - Reason: Transfer to a Procedural area)175 ([facility] Unhold - Provider: Admin Adt) sodium chloride 0.9% infusion 100 mL/hr, Intravenous, CONTINUOUS, Starting on Mon10/05/22 at 1745, Until Mon10/05/22 at 2144, Recovery (Recovery-Hospital Unit) 1745 (New Bag - Provider: Ann Leroy RN) PRN Medication Order 10/03/2022 10/04/2022 10/05/2022 acetaminophen (Tylenol) tablet 650 mg 650 mg, Oral, EVERY 6 HOURS PRN, Starting on Mon10/05/22 at 0452, Until Migd[place] 10/06/22 at 0054, Pain, Maximum dose of acetaminophen is 4,000 mg from all sources in 24 hours. When ordered for pain, acetaminophen should be given even when other ordered pain medications are indicated. , Routine 0506 (Given - Provid er: Sil Lopez RN)161 (MAY Hold - Provider: Admin Adt - Reason: Transfer to a Procedural area)175 ([facility] Unhold - Provider: Admin Adt) dextrose 10% [...] for the duration of the active insulin. 161 (MAY Hold - Pro vider: Admin Adt - Reason: Transfer to a Procedural area)175 ([facility]Y Unhold - Provider: Admin Adt) fentaNYL (pf) (50 mcg/mL) multi-dose injection (CANCELED) PRN, Starting on Mon10/05/22 at 1635, Until Mon10/05/22 at 1711, Intra-Operative (Intra-Procedure), Routine 1635 (Given - Provid er: Josiah Alonso RN) glucagon (Glucagen) (1 mg/mL) injection [...] the duration of the active insulin., Routine 1617 (MAY Hold - Pro vider: Admin Adt - Reason: Transfer to a Procedural area)1757 ([facility]Y Unhold - Provider: Admin Adt) glucose [...] Lopez RN)1129 (Given - Provider: Corinna Vallecillo RN)1618 (MAY Hold [...] 0054, for discomfort with PIV insertion, Routine 161 (MAY Hold - Pro vider: Admin Adt - Reason: Transfer to a Procedural area)175 (MAY Unhold - Provider: Admin Adt) midazolam (pf) [...] not swallow. Maximum of 48 mg/day., Routine 1617 (MAY Hold - Pro vider: Admin Adt - Reason: Transfer to a Procedural area)1757 ([facility] Unhold - Provider: Admin Adt) nitroGLYcerin (Nitrostat) [...] - Reason: Transfer to a Procedural area)1757 ([facility] Unhold - Provider: Admin Adt) nitroGLYcerin 100 [...] PRN, Starting on Mon10/04/22 at 1810, Until Migd[place] 10/06/22 at 0054, flush, Flush pertains to all indwelling lines. Flush per protocol found in the job aid using the link provided on this medication record., Routine 1617 (MAY Hold - Pro vider: Admin Adt - Reason: Transfer to a Procedural area)1757 ([facility] Unhold - Provider: Admin Adt) sodium chloride 0.9 % (flush) (BD PosiFlush Normal Saline 0.9) flush 5-20 mL 5-20 mL, Intravenous, EVERY 1 MIN PRN, Starting on Mon10/04/22 at 1907, Until Mon10/06/22 at 0054, flush, Flush pertains to all indwelling lines. Flush per protocol found in the job aid using the link provided on this medication record., Routine 1618 (MAY Hold - Pro vider: Admin Adt - Reason: Transfer to a Procedural area)1758 (MAY Unhold - Provider: Admin Adt) verapamiL (Isoptin) [...] PROTOCOL, Starting on Mon10/04/22 at 1809, Until Migd[place] 10/06/22 at 0054, Per Protocol, START ADJUSTMENT SCHEDULE [...] Routine documented in this encounter Care Teams Blocker Automatic Relationship Specialty Start Date End Date Karen Barbosa MD [address] [place] [address] [place] [address] PCP - General Family Medicine 10/04/22 documented as of this encounter
--- OUTSIDE RECORDS SUMMARY | 2023-10-24 15:59 | XMS_ITS | Encounter Summary ---
Author Organization [facility] [place] [address] Care Team Providers Care Butter Maker Name Role Phone Robinson Vazquez APRN Primary Care Provider [phone]- [phone] Encounter Details Date Type Department Care Team (Late st Contact Info) Description 03/30/2021 9:00 AM EST Office Visit Dermatology at [place] [address] [place] [address] Amada Ferguson MD [facility] [address] [facility] [place] [address] SK (seborrheic keratosis) Social History Tobacco Use Types Packs/Day Years [...] as of this encounter Progress Notes * Amada Ferguson MD - 03/30/2021 9:00 AM [...] signed by: Amada Ferguson MD Dermatology [facility] * Zo Esqueda MD - 03/30/2021 9:00 AM EST I directly supervised Dr. Ferguson during this office visit. Dr. Ferguson presented the historyand physical exam to me. I then saw and examined this patient with Dr. Ferguson . We reviewed thehistory and pertinent details and I confirmed the physical findings. I agree with the details of the history and physical exam as documented in Dr. Ferguson's note. ZO ESQUEDA MD Staff Physician documented in this encounter Plan of Treatment Upcoming Encounters Date Type Department Care Team (Late st Contact Info) Description 03/20/2024 10:00 AM EST Office [place] [address] Tania Gates OD [facility] [place] [address] documented as of this encounter Visit Diagnoses Diagnosis SK (seborrheic keratosis) Other seborrheic keratosis documented in this encounter Care Teams Butter Maker Relationship Specialty Start Date End Date Robinson Vazquez APRN [address] [place] [address] PCP - General Family Medicine 12/11/20 10/03/22 documented as of this encounter
--- OUTSIDE RECORDS SUMMARY | 2023-10-24 15:59 | XMS_ITS | Encounter Summary ---
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, unspecified laterality, with unspecified presence of clinical manifestation Procedures EDONTE, legs, multiple levels Vinicius Cartagena APRN [facility] [place] [address] [facility] Vascular Lab [address] [place] [address] Referral ID Status Reason Start Date Expiration Date V isits Requested Visits Authorized [id number] Closed Specialty Service Requested 02/08/2022 02/08/2023 1 1 Encounter Details Date Type Department Care Team (Late st Contact Info) Description 02/08/2022 Orders Only [place] [address] Vinicius Cartagena APRN [facility] [place] [address] 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 Indications: PAD on CT at H Diabetes mellitus: Yes Findings: Right ?Pressure (mm Hg) ?? DEONTE ??Waveform ?TBI ?? Brachial Artery ?114 ? Common Femoral Artery ?Triphasic ? Popliteal Artery ? Triphasic ? Dorsalis Pedis (Ankle) Artery ?127 ? 1.07 ??Triphasic ? Posterior Tibial (Ankle) Artery ??130 ? 1.09 ??Triphasic ? Great Toe ?88 ? 0.74 ?? Left ? Pressure (mm Hg) ?? DEONTE ??Waveform ?TBI ?? Brachial Artery ?119 ? Common Femoral Artery ?Triphasic ? Popliteal Artery ? Triphasic ? Dorsalis Pedis (Ankle) Artery ?123 ? 1.03 ??Triphasic ? Posterior Tibial (Ankle) Artery ??133 ? 1.12 ??Triphasic ? Great Toe ?90 ? 0.76 ?? Interpretation: RIGHT: ??No significant lower extremity arterial occlusive disease at rest. LEFT: ??No significant lower extremity arterial occlusive disease at rest. Comparison: ??No previous study in our vascular lab database for comparison. 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
--- OUTSIDE RECORDS SUMMARY | 2023-10-24 15:59 | XMS_ITS | Encounter Summary ---
Author Organization [facility] Danika [place] [address] Care Team Providers Care Adjunct Psychology Instructor Name Role Phone Robinson Vazquez APRN Primary Care Provider +1- [phone] Encounter Details Date Type Department Care Team (Late st Contact Info) Description 02/02/2022 Ancillary Procedure [place] [address] Robinson Vazquez APRN [address] [place], [place] [id number] Social History Tobacco Use Types Packs/Day Years [...] 10:00 AM EST Office [place] [address] Tania Gates OD [facility] [place] [address] documented as of this encounter Procedures Procedure Name Priority Date/Time Associated Diagnosis Comments FILM LIBRARY STORAGE ONLY CT ABDOMEN Routine 02/02/2022 12:00 AM EST documented in this encounter Results * Film Library- Storage Only CT Abdomen (02/02/2022 12:00 AM EST) Narrative KERRI - 02/04/2022 4:32 PM EST This exam is auto-finalizing. It's purpose is for storage only. Robinson Vazquez APRN IMG FILM LIBRARY O RDERABLES [place], [place] documented in this encounter Visit Diagnoses Not on filedocumented in this encounter Care Teams Adjunct Psychology Instructor Relationship Specialty Start Date End Date Robinson Vazquez APRN [address] [place] [address] PCP - General Family Medicine 12/11/20 10/03/22 documented as of this encounter
--- OUTSIDE RECORDS SUMMARY | 2023-10-24 15:59 | XMS_ITS | Encounter Summary ---
Author [place] [address] Care Team Providers Care Jet Man Name Role Phone Robinson Vazquez APRN Primary Care Provider +1- [phone] Encounter Details Date Type Department Care Team (Late st Contact Info) Description 04/21/2022 8:55 PM EST Ancillary Procedure [place] [phone] Amanda Quan APRN [address] [id number] Social History Tobacco Use Types Packs/Day Years [...] 10:00 AM EST Office [place] [address] Tania Gates OD [facility] DR OPHTHALMOLOGY [place], [place] [phone] documented as of this encounter Procedures Procedure Name Priority Date/Time Associated Diagnosis Comments FILM LIBRARY STORAGE ONLY MR SPINE Routine 04/21/2022 8:50 PM EST documented in this encounter Results * Film Library- Storage Only MR Spine (04/21/2022 8:50 PM EST) Narrative KERRI - 04/21/2022 8:50 PM EST This exam is auto-finalizing. It's purpose is for storage only. Amanda Barksdale Kadeem CUSTOMER SERVICE MANAGER IMG FILM LIBRARY O RDERABLES Performing Organization Address City/State/[facility] Co de Phone Number [place], [place] documented in this encounter Visit Diagnoses Not on filedocumented in this encounter Care Teams Jet Man Relationship Specialty Start Date End Date Robinson Vazquez APRN [address] [place] [address] PCP - General Family Medicine 12/11/20 10/03/22 documented as of this encounter
--- OUTSIDE RECORDS SUMMARY | 2023-10-24 15:59 | XMS_ITS | Encounter Summary ---
Author Organization [facility] [place] [address] Care Team Providers Care Hospital Pharmacy Director Name Role Phone Robinson Vazquez APRN Primary Care Provider +1- [phone] Encounter Details Date Type Department Care Team (Latest Contact Info) Description 03/21/2022 Travel Social History Tobacco Use Types Packs/Day [...] 10:00 AM EST Office [place] [address] Tania Gates OD [facility] [address] documented as of this encounter Visit Diagnoses Not on filedocumented in this encounter Care Teams Hospital Pharmacy Director Relationship Specialty Start Date End Date Robinson Vazquez APRN [address] [place] [address] PCP - General Family Medicine 12/11/20 10/03/22 documented as of this encounter
--- OUTSIDE RECORDS SUMMARY | 2023-10-24 15:59 | XMS_ITS | Encounter Summary ---
[place] [address] Care Team Providers Care Senior Database Administrator Name Role Phone Robinson Vazquez APRN Primary Care Provider +1- [phone] Encounter Details Date Type Department Care Team (Late st Contact Info) Description 04/21/2022 Ancillary Procedure Radiology at [facility] [address] [place] [phone] Rosanna Clement MD [address] [facility] [place] [address] Social History Tobacco Use Types Packs/Day Years [...] 10:00 AM EST [place] [address] Tania Gates OD [facility] [place] [address] documented as of this encounter Procedures Procedure Name Priority Date/Time Associated Diagnosis Comments FILM LIBRARY STORAGE ONLY MR SPINE Routine 04/21/2022 12:00 AM EST documented in this encounter Results * Film Library- Storage Only MR Spine (04/21/2022 12:00 AM EST) Narrative KERRI - 10/17/2023 3:38 PM EDT This exam is auto-finalizing. It's purpose is for storage only. Rosanna Clement MD [facility] FILM LIBRARY ORDERABLES Performing Organization Address City/State/[facility] Co de Phone Number [place], [place] documented in this encounter Visit Diagnoses Not on filedocumented in this encounter Care Teams Senior Database Administrator Relationship Specialty Start Date End Date Robinson Vazquez APRN [address] [place] [address] PCP - General Family Medicine 12/11/20 10/03/22 documented as of this encounter
--- OUTSIDE RECORDS SUMMARY | 2023-10-24 15:59 | XMS_ITS | Encounter Summary ---
Author Organization [facility] [place] [address] Care Team Providers Care Artificial Intelligence Specialist Name Role Phone Robinson Vazquez APRN Primary Care Provider +1- [phone] Reason for Referral * Consultation (Routine) - Closed Specialty Diagnoses / Procedures Referred By Keith t Referred To Contact Ophthalmology Diagnoses Other visual disturbances Robinson Vazquez APRN [address] [place] [address] Tania Gates, ELIZABETH [facility] [place] [address] Referral ID Status Reason Start Date Expiration Date V isits Requested Visits Authorized [id number] Closed Consult, Test & Treat PCP Updated and/or Approved 10/13/2021 10/13/2022 6 6 Encounter Details Date Type Department Care Team (Late st Contact Info) Description 10/13/2021 Transcribe Orders eDH Incoming Referrals [phone] Robinson Vazquez APRN [address] [place], [place] [id number] Other visual disturbances Social History Tobacco Use Types Packs/Day Years [...] 10:00 AM EST Office [place] [address] Tania Gates, ELIZABETH [facility] [place] [address] Scheduled Referrals Name Type Priority Associated Diagnoses Orde r Schedule Referral to Ophthalmology Outpatient Referral Routine Other visual disturbances Ordered: 10/13/2021 documented as of this encounter Visit Diagnoses Diagnosis Other visual disturbances documented in this encounter Care Teams Artificial Intelligence Specialist Relationship Specialty Start Date End Date Robinson Vazquez, HEALTH CARE ATTORNEY [address] [place] [address] PCP - General Family Medicine 12/11/20 10/03/22 documented as of this encounter
--- OUTSIDE RECORDS SUMMARY | 2023-10-24 15:59 | XMS_ITS | Encounter Summary ---
Author [facility] [place] [address] Care Team Providers Care Computer Equipment Installer Name Role Phone Karen Barbosa MD Primary Care Provider [phone] Encounter Details Date Type Department Care Team (Late st Contact Info) Description 10/04/2022 Telephone Cardiology at [address] [address] Gonzalo Shukla PA [facility] [place] [place] [address] Social History Tobacco Use Types Packs/Day Years Used Date Smoking Tobacco: Every Day Cigarettes 1 40 Smokeless Tobacco: Never Alcohol Use Standard Drinks/Week Comments Yes 7 (1 standard drink = 0.6 oz pur e alcohol) [facility] Inpatient Questions Answer Date Recorded [...] encounter Miscellaneous Notes * Telephone Encounter - Gonzalo Shukla PA - 10/04/2022 11:42 AM EDT Images from the original note were not included. Cardiology Access Note 10/04/2022 Samy Patricio Jr. Initial Contact Date: 10/04/2022 Contact time: 11:42 AM Referring Provider: Dr. Barron Patient Location: [facility] Past Medical History: ASCVD w/ prior RCA and Lcx PCI which were patent on [facility] 12/2020 IDDM2 CKD stage III HTN HLP Tobacco use, active Brief History: Samy Patricio Jr. is a 56 y.o. male with above history presents to [facility] with resting angina which started at 7 AM. Similar in character to prior stable angina which typically improves with sublingual nitroglycerin. This morning is resting angina only mildly improved with nitroglycerin which he took x3 before presenting to the hospital. Otherwise reports months fatigued and sob. Vital sign: 115/75, 62-18-37.0-99%RA Outpt meto succ 100 daily, atorvastatin 80mg daily, torsemide 60mg daily, insulin sinus rhythm, normal axis and intervals, no ischemic abnormalities. Pertinent Diagnostic Findings: Labs: 1st trop negative. Cbc ok. Cr 1.8 (range 1.2-1.7; 1.2 in 04/2022). bnp normal. EKG: Sinus rhythm, normal axis and interval Wolz, no ischemic abnormalities. OSH Interventions: ASA 325mg x1, sl NTG. OSH provider hesitant to start NTG infusion given BP 110s. Assessment & Plan: Samy Patricio Jr. is a 56 y.o. male w/ h/o ASCVD with prior RCA and LCx PCI, IDDM2, active tobacco use, and CKD III presenting with chest discomfort concerning for unstable angina. Initial troponin is negative and EKG without ischemic changes. He has been loaded with aspirin. Recommended starting ACS therapies including heparin infusion and loading clopidogrel 600 Mg x1. He took his metoprololsuccinate this morning and is on a high intensity statin. Trend troponin. Accepted for transfer. Above recommendations were based on my discussion with above listed OSH provider. I have not personally interviewed or examined this patient. I encouraged them to contact us if there is any change insymptoms, decision- making, or further need for guidance in management. Gonzalo Shukla PA-C Access Pager [phone] 10/04/2022 documented in this encounter Plan of Treatment Upcoming Encounters Date Type Department Care Team (Late st Contact Info) Description 03/20/2024 10:00 AM EST Office [place] [address] Tania Gates OD [facility] [place] [address] documented as of this encounter Visit Diagnoses Not on filedocumented in this encounter Care Teams Computer Equipment Installer Relationship Specialty Start Date End Date Karen Barbosa MD [address] [place] [address] [place] [address] PCP - General Family Medicine 10/04/22 documented as of this encounter
--- OUTSIDE RECORDS SUMMARY | 2023-10-24 15:59 | XMS_ITS | Encounter Summary ---
[place] [address] Care Team Providers Care Wrapper Selector Name Role Phone Robinson Vazquez APRN Primary Care Provider +1- [phone] Reason for Referral * Consultation (Urgent) - Closed Specialty Diagnoses / Procedures Referred By Keith sanchez Referred To Contact Vascular Surgery Diagnoses Peripheral vascular disease, unspecified Karen Barbosa MD [facility] [place] [address] [facility] Vascular Surg [address] [place] [address] Referral ID Status Reason Start Date Expiration Date V isits Requested Visits Authorized [id number] Closed Consult, Test & Treat 02/07/2022 02/07/2023 1 1 Encounter Details Date Type Department Care Team (Late st Contact Info) Description 02/07/2022 Transcribe Orders eDH Incoming Referrals [phone] Karen Barbosa MD [address] [place], [place] [id number] Peripheral vascular disease, unspecified Social History Tobacco [...] 10:00 AM EST Office Visit Ophthalmology at [facility] [place] [address] Tania Gates OD [facility] [place] [address] Scheduled Referrals Name Type Priority Associated Diagnoses Orde r Schedule Referral to Vascular Surgery Outpatient Referral Urgent Peripheral vascular disease, unspecified Ordered: 02/07/2022 documented as of this encounter Visit Diagnoses Diagnosis Peripheral vascular disease, unspecified documented in this encounter Care Teams Wrapper Selector Relationship Specialty Start Date End Date Robinson Vazquez, NEWS OPERATIONS MANAGER [address] [place] [address] [address] [place] [address] PCP - General Family Medicine 12/11/20 10/03/22 documented as of this encounter
--- OUTSIDE RECORDS SUMMARY | 2023-10-24 15:59 | XMS_ITS | Encounter Summary ---
Author Organization [facility] [place] [address] Care Team Providers Care Clinical Manager Name Role Phone Robinson Vazquez APRN Primary Care Provider [phone]- [phone] Encounter Details Date Type Department Care Team (Latest Contact Info) Description 02/24/2022 9:00 AM EST Tech [place] [address] [place], [place] Atherosclerosis of wampanoag artery of lower extremity, unspecified laterality, with [...] 10:00 AM EST Office [place] [address] Tania Gates OD [facility] [place] [address] documented as of this encounter Procedures Procedure Name Priority Date/Time Associated Diagnosis Comments DEONTE, LEGS, MULTIPLE LEVELS Routine 02/24/2022 9:03 AM EST Atherosclerosis of [place]ampanoag artery of lower extremity, unspecified laterality, with unspecified presence of clinical manifestation documented in this encounter Results * DEONTE, legs, multiple levels (02/24/2022 9:03 AM EST) VB Text Report Department: Vascular Surgery Lab Patient: [id number] (SAMY PATRICIO) CPT: [id number] Referring Physician: VINICIUS CARTAGENA APRN ?? Indications: PAD on CT at OSH Diabetes mellitus: Yes Findings: Right ?Pressure (mm [...] VASCUBASE 02/24/2022 9:03 AM EST Vinicius Cartagena TRANSIT AUTHORITY POLICE OFFICER VASCULAR ORDERABLE S VASCUBASE documented in this encounter Visit Diagnoses Diagnosis Atherosclerosis of [place]ampanoag artery of lower extremity, unspecified laterality, with unspecified presence of clinical manifestation documented in this encounter Care Teams Clinical Manager Relationship Specialty Start Date End Date Robinson Vazquez APRN [address] [place] [address] PCP - General Family Medicine 12/11/20 10/03/22 documented as of this encounter
--- OUTSIDE RECORDS SUMMARY | 2023-10-24 15:59 | XMS_ITS | Encounter Summary ---
Author Organization [facility] [place] [address] Care Team Providers Care Extension Worker Name Role Phone Robinson Vazquez APRN Primary Care Provider +1- [phone] Encounter Details Date Type Department Care Team (Late st Contact Info) Description 01/26/2021 Orders [place] [address] Nathaniel Azevedo MD [facility] [place] [address] Dyspepsia Social History Tobacco Use Types Packs/Day Years [...] 10:00 AM EST Office [place] [address] Tania Gates OD [facility] OPHTHALMOLOGY [place] [address] documented as of this encounter Visit Diagnoses Diagnosis Dyspepsia Dyspepsia and other specified disorders of function of stomach documented in this encounter Care Teams Extension Worker Relationship Specialty Start Date End Date Robinson Vazquez, MOLDING LINE OPERATOR [address] [place] [address] PCP - General Family Medicine 12/11/20 10/03/22 documented as of this encounter
--- OUTSIDE RECORDS SUMMARY | 2023-10-24 15:59 | XMS_ITS | Encounter Summary ---
Author Organization [facility] [place] [address] Care Team Providers Care Basting Cleaner Name Role Phone Robinson Vazquez APRN Primary Care Provider +1- [phone] Encounter Details Date Type Department Care Team (Late st Contact Info) Description 01/14/2022 Ancillary Procedure [place] [address] Robinson Vazquez APRN [address] [place], [place] [address] Social History Tobacco Use Types Packs/Day Years [...] 10:00 AM EST Office [place] [address] Tania Gates OD [facility] [place] [address] documented as of this encounter Procedures Procedure Name Priority Date/Time Associated Diagnosis Comments FILM LIBRARY STORAGE ONLY ULTRASOUND STUDY Routine 01/14/2022 12:00 AM EDT documented in this encounter Results * Film Library- Storage Only Ultrasound Study (01/14/2022 12:00 AM EDT) Narrative KERRI - 02/04/2022 4:34 PM EST This exam is auto-finalizing. It's purpose is for storage only. Robinson Vazquez APRN IMG FILM LIBRARY O RDERABLES [place], [place] documented in this encounter Visit Diagnoses Not on filedocumented in this encounter Care Teams Basting Cleaner Relationship Specialty Start Date End Date Robinson Vazquez APRN [address] [place] [address] PCP - General Family Medicine 12/11/20 10/03/22 documented as of this encounter
--- OUTSIDE RECORDS SUMMARY | 2023-10-24 15:59 | XMS_ITS | Encounter Summary ---
[place] [address] Care Team Providers Care Coating Manager Name Role Phone Robinson Vazquez APRN Primary Care Provider +1- [phone] Reason for Visit * Reason Comments Decreased Visual Acuity OD Encounter Details Date Type Department Care Team (Late st Contact Info) Description 08/29/2022 3:45 PM EDT Office [place] [address] José Miguel Anderson MD [facility] [place] [address] PCO (posterior capsular opacification), right (Primary Dx); Pseudophakia of right eye Social History Tobacco [...] * José Miguel Anderson MD - 08/29/2022 3:45 PM EDT Assessment/Plan: Samy Patricio Jr. is a 56 y.o. male with the following ophthalmic issues: 1. PCO OD - symptomatic 2. PCIOL OD 3. Traumatic macular scar/atrophy OS 4. IDDM, no retinopathy Rec good DM control, yearly DFE with Dr. Gates 5. Hyperopia, presbyopia OD Discussed YAG capsulotomy, process, recovery, Risks/Benefits/Alternatives, and the option of waiting. AAO Posterior Capsulotomy pamphlet given to patient. Reviewed the chance of WORSE vision, damage to the eye, inflammation, retinal tear and other problems possible. Questions answered. Samy Patricio Jr. expresses understanding, requests YAG capsulotomy OD. Informed consent form signed. Samy Patricio Jr. informed of opportunity to retain a copy of Consent Form. documented in this encounter Plan of Treatment Upcoming Encounters Date Type Department Care Team (Late st Contact Info) Description 03/20/2024 10:00 AM EST Office [place] [address] Tania Gates, ELIZABETH [facility] [place] [address] documented as of this encounter Visit Diagnoses Diagnosis PCO (posterior capsular opacification), right- Primary After-cataract, unspecified Pseudophakia of right eye Lens replaced by other means documented in this encounter Care Teams Coating Manager Relationship Specialty Start Date End Date Robinson Vazquez, JOVANI [address] [place] [address] PCP - General Family Medicine 12/11/20 10/03/22 documented as of this encounter
--- OUTSIDE RECORDS SUMMARY | 2023-10-24 15:59 | XMS_ITS | Encounter Summary ---
[place] [address] Care Team Providers Care Bit Shaver Name Role Phone Karen Barbosa MD Primary Care Provider Encounter Details Date Type Department Care Team (Late st Contact Info) Description 10/04/2022 [place] [address] Unknown None Social History Tobacco Use Types Packs/Day Years [...] 10:00 AM EST Office [place] [address] Tania Gates OD [facility] [place] [address] documented as of this encounter Procedures Procedure Name Priority Date/Time Associated Diagnosis Comments ECHOCARDIOGRAM TRANSTHORACIC Routine 10/04/2022 7:30 PM EDT documented in this encounter Results * Echocardiogram Transthoracic (10/04/2022 7:30 PM EDT) Anatomical Region Laterality Modality Cardiac Other 10/04/2022 7:30 PM EDT Narrative 10/06/2022 9:10 AM EDT ? Echocardiogram Report Name: BEL PATRICIO, ? Study Date: 10/04/2022 07:30 PMBP: 140/90 mmHg ? Patient Location: [facility] ? HR: 66 : 1965 ? Height: 183 cm Age: 56 yrs ? Weight: 134 kg Gender: Male ?BSA: 2.5 m2 Ordering Physician: Rafy Wilkes MD Referring Physician: Rafy Wilkes MD Performed By: Vivek Lee Reason For Study: Unstable Angina History: Chest pain Interpreting Fellow: Vivek Lee. Exam Location: [facility]. Interpretation Summary -Limited echocardiogram performed by overnight fellow to assess LV function. -The left ventricle is of normal size and wall thickness. The left ventricular systolic function is normal with visually estimated ejection fraction of 60%. There are no segmental wall motion abnormalities. Diastolic function and filling pressures are normal. -The right ventricle is of normal size and systolic function. -There is no hemodynamically significant valve disease. -No prior study for comparison. Recommend formal echocardiogram with administration of image enhancer for accurate wall motion assessment. Procedure Limited - 62534. Satisfactory quality. There is normal sinus rhythm. Left Ventricle Left ventricle is of normal size. Wall thickness is normal. Left ventricular size and systolic function is normal. Left ventricular ejection fraction is estimated visually at 60%. There are no segmental wall motion abnormalities. Right Ventricle The right ventricle is of normal size. Right ventricular systolic function is normal. Left Atrium The left atrium is normal. Aortic Valve The aortic valve is structurally and functionally normal. The aortic valve is probably trileaflet. There is no aortic stenosis. There is no aortic regurgitation. Mitral Valve The mitral valve is structurally and functionally normal. There is no mitral stenosis. There is trace mitral regurgitation. Tricuspid Valve The tricuspid valve is structurally normal. There is trace tricuspid regurgitation. Pulmonic Valve The pulmonic valve is not well visualized. There is no pulmonic valve regurgitation. Great Arteries The aortic root is not well visualized. Venous Inferior vena cava is normal in size. Inferior vena cava collapse greater than 50% with respiration. Pericardium/Pleural A pericardial fat pad is present. The pericardium appears normal. There is no pericardial effusion. Hemodynamics The estimated right atrial pressure is 3mmHg. Pulmonary artery hypertension could not be assessed due to inadequate tricuspid regurgitation jet. Left ventricular diastolic function is normal. Left ventricular filling pressure is normal. ? 2D Measurements ? Volumes ?IVSd: 0.86 cm ?LAV(MOD-bp) Indexed: ?LVIDd: 4.8 cm ?18.9 ml/m2 ?LVPWd: 0.96 cm ?LV mass(C)d: 151.8 grams ? RA A4Cs_phl: 16.9 cm2 ? SV(LVOT): 61.2 ml ?LV mass(C)dI: 60.3 grams/m2 ?SI(LVOT): 24.3 ml/m2 ?LVOT diam: 2.2 cm ?TAPSE_phl: 2.9 cm Doppler LV V1 VTI: 15.5 cm Ao V2 VTI: 19.0 cm Ao Max: 112.3 cm/sec Ao valve max: 5.0 mmHg Ao valve mean: 3.0 mmHg MV E max shubham: 93.3 cm/sec MV A max shubham: 84.4 cm/sec MV E/A: 1.1 Lat Peak E' Shubham: 10.7 cm/sec E/ e' (lat): 8.7 Med Peak E' Shubham: 7.6 cm/sec E/e' (med): 12.2 E/e' Average: 10.5 SHAILA(I,D): 3.2 cm2 Dimensionless index Aov: 0.82 I ?WMSI = 1.00 ? % Normal = 100 ?Segments ??Size X - Cannot ?? 1 - Normal ?? 2 - ? 3 - Akinetic 4 - ?1-2 ? small Interpret ? Hypokinetic ?Dyskinetic ?? 3-5 ? moderate 5 - ? 6-14 ?large Aneurysmal ?15-16 ?? diffuse Procedure Note Ashley Hansen MD - 10/06/2022 Echocardiogram Report Name: BEL PATRICIO JR Study Date: 307:30 PMBP: 140/90 mmHg Patient Location: [facility] HR: 66 : 1965 Height: 183 cm Age: 56 yrs Weight: 134 kg Gender: Male BSA: 2.5 m2 Ordering Physician: Rafy Wilkes MD Referring Physician: Rafy Wilkes MD Performed By: Vivek Lee Reason For Study: Unstable Angina History: Chest pain Interpreting Fellow: Vivek Lee. Exam Location: [facility]. Interpretation Summary -Limited echocardiogram performed by overnight fellow to assess LVfunction. -The left ventricle is of normal size and wall thickness. The leftventricular systolic function is normal with visually estimated ejection fraction of60%. There are no segmental wall motion abnormalities. Diastolic function andfilling pressures are normal. -The right ventricle is of normal size and systolic function. -There is no hemodynamically significant valve disease. -No prior study for comparison. Recommend formal echocardiogram with administration of image enhancer for accurate wall motion assessment. Procedure Limited - 15470. Satisfactory quality. There is normal sinus rhythm. Left Ventricle Left ventricle is of normal size. Wall thickness is normal. Leftventricular size and systolic function is normal. Left ventricular ejection fraction isestimated visually at 60%. There are no segmental wall motion abnormalities. Right Ventricle The right ventricle is of normal size. Right ventricular systolic functionis normal. Left Atrium The left atrium is normal. Aortic Valve The aortic valve is structurally and functionally normal. The aortic valveis probably trileaflet. There is no aortic stenosis. There is no aortic regurgitation. Mitral Valve The mitral valve is structurally and functionally normal. There is nomitral stenosis. There is trace mitral regurgitation. Tricuspid Valve The tricuspid valve is structurally normal. There is trace tricuspid regurgitation. Pulmonic Valve The pulmonic valve is not well visualized. There is no pulmonic valve regurgitation. Great Arteries The aortic root is not well visualized. Venous Inferior vena cava is normal in size. Inferior vena cava collapse greaterthan 50% with respiration. Pericardium/Pleural A pericardial fat pad is present. The pericardium appears normal. There isno pericardial effusion. Hemodynamics The estimated right atrial pressure is 3mmHg. Pulmonary arteryhypertension could not be assessed due to inadequate tricuspid regurgitation jet. Leftventricular diastolic function is normal. Left ventricular filling pressure isnormal. 2D Measurements Volumes IVSd: 0.86 cm LAV(MOD-bp)Indexed: LVIDd: 4.8 cm 18.9 ml/m2 LVPWd: 0.96 cm LV mass(C)d: 151.8 grams RA A4Cs_phl: 16.9cm2 SV(LVOT): 61.2ml LV mass(C)dI: 60.3 grams/m2 SI(LVOT): 24.3ml/m2 LVOT diam: 2.2 cm TAPSE_phl: 2.9 cm Doppler LV V1 VTI: 15.5 cm Ao V2 VTI: 19.0 cm Ao Max: 112.3 cm/sec Ao valve max: 5.0 mmHg Ao valve mean: 3.0 mmHg MV E max shubham: 93.3 cm/sec MV A max shubham: 84.4 cm/sec MV E/A: 1.1 Lat Peak E' Shubham: 10.7 cm/sec E/ e' (lat): 8.7 Med Peak E' Shubham: 7.6 cm/sec E/e' (med): 12.2 E/e' Average: 10.5 SHAILA(I,D): 3.2 cm2 Dimensionless index Aov: 0.82 I WMSI = 1.00 % Normal = 100 SegmentsSize X - Cannot 1 - Normal 2 - 3 - Akinetic 4 - 1-2small Interpret Hypokinetic Dyskinetic 3-5moderate 5 - 6-14large Aneurysmal 15-16diffuse Unknown ECHO ORDERABLES documented in this encounter Visit Diagnoses Not on filedocumented in this encounter Care Teams Bit Shaver Relationship Specialty Start Date End Date Karen Barbosa MD [address] [place] [id number] PCP - General Family Medicine 10/04/22 documented as of this encounter
--- OUTSIDE RECORDS SUMMARY | 2023-10-24 15:59 | XMS_ITS | Encounter Summary ---
Author Organization [place] [address] Care Team Providers Care Cdl B Driver Name Role Phone Robinson Vazquez APRN Primary Care Provider +1- [phone] Reason for Visit * Reason Comments Eye Exam * Consultation (Routine) - Closed Specialty Diagnoses / Procedures Referred By Keith sanchez Referred To Contact Ophthalmology Diagnoses Other visual disturbances Robinson Vazquez APRN [address] [place] [address] Tania Gates, [facility] [place] [address] Referral ID Status Reason Start Date Expiration Date V isits Requested Visits Authorized [id number] Closed Consult, Test & Treat PCP Updated and/or Approved 10/13/2021 10/13/2022 6 6 Encounter Details Date Type Department Care Team (Late st Contact Info) Description 01/26/2022 7:40 AM EST Office [place] [address] Tania Gates, [facility] [place] [address] Diabetic eye exam; Pseudophakia of right eye; Age-related nuclear cataract of left eye; History [...] Progress Notes * Tania Gates, OD - 01/26/2022 7:40 AM EST Encounter Diagnoses Name Primary? Diabetic eye exam ??? Pseudophakia of right eye ??? Age-related nuclear cataract of left eye ??? History of eye injury ??? Astigmatism of both eyes with presbyopia Samy Denilson Patricio Jr. is a 56 y.o. with the following ophthalmic problems: Assessment and Plan: DM II, No retinopathy OU, No CSME OU - Advised BG control with diet, exercise, & meds per PCP recommendations. H/O Eye Injury in 1981 with macular scar, slight nerve pallor OS - Noted. Cataracts OS, - Monitor for now, sooner with changes in vision. Pseudophakia OD with visually significant PCO - Refer for YAG capsulotomy consultation. - Patient understands that the initial visit is consultation only, not a procedural visit. Refractive Error OU - Rx given today in polycarbonate and advised career services representative wear for eye protection! - Findings and concerns discussed with Samy and he expressed understanding. Eyeglass Final Rx Eyeglass Final Rx Sphere Dist VA Add Near VA Right Walker 20/40-1 +2.25 20/20-1 Left Walker 20/400 +2.25 20/800-1 Expiration Date: 01/27/2024 documented in this encounter Plan of Treatment Upcoming Encounters Date Type Department Care Team (Late st Contact Info) Description 03/20/2024 10:00 AM EST Office [place] [address] Tania Gates, OD [facility] [place] [address] documented as of this encounter Visit Diagnoses Diagnosis Diabetic eye exam Examination of eyes and vision Pseudophakia of right eye Lens replaced by other means Age-related nuclear cataract of left eye Senile nuclear sclerosis History of eye injury Personal history of other injury Astigmatism of both eyes with presbyopia documented in this encounter Care Teams Cdl B Driver Relationship Specialty Start Date End Date Robinson Vazquez APRN [address] [place] [address] PCP - General Family Medicine 12/11/20 10/03/22 documented as of this encounter
--- OUTSIDE RECORDS SUMMARY | 2023-10-24 15:59 | XMS_ITS | Encounter Summary ---
[place] [address] Care Team Providers Care Tire Maker Name Role Phone Robinson Vazquez APRN Primary Care Provider +1- [phone] Reason for Visit * Reason Comments Follow-up Encounter Details Date Type Department Care Team (Late st Contact Info) Description 09/05/2022 9:30 AM EDT Office [place] [address] José Miguel Anderson MD [facility] [place] [address] History of YAG laser capsulotomy of lens, right; Pseudophakia of right eye Social History [...] Notes * José Miguel Anderson MD - 09/05/2022 9:30 AM EDT Assessment/Plan: Samy Patricio Jr. is a 56 y.o. male with the following ophthalmic issues: 1. 1 week s/p YAG Capsulotomy OD - doing well 2. PCIOL OD 3. Traumatic macular scar/atrophy OS 4. IDDM, no retinopathy Rec good DM control, yearly DFE with Dr. Gates 5. Hyperopia, presbyopia OD Continuing care with SS documented in this encounter Plan of Treatment Upcoming Encounters Date Type Department Care Team (Late st Contact Info) Description 03/20/2024 10:00 AM EST Office [place] [address] Tania Gates, OD [facility] [place] [address] documented as of this encounter Visit Diagnoses Diagnosis History of YAG laser capsulotomy of lens, right Pseudophakia of right eye Lens replaced by other means documented in this encounter Care Teams Tire Maker Relationship Specialty Start Date End Date Robinson Vazquez, RUG CUTTER HELPER [address] [place] [address] PCP - General Family Medicine 12/11/20 10/03/22 documented as of this encounter
--- OUTSIDE RECORDS SUMMARY | 2023-10-24 15:59 | XMS_ITS | Encounter Summary ---
[place] [address] Care Team Providers Care Rn Clinician Name Role Phone Robinson Vazquez APRN Primary Care Provider +1- [phone] Encounter Details Date Type Department Care Team (Late st Contact Info) Description 04/12/2021 Telephone [place] [phone] Joanna Carlson CMA GASTROENTEROLOGY DEPT Social History Tobacco Use Types Packs/Day Years [...] encounter Miscellaneous Notes * Telephone Encounter - Joanna Carlson CMA - [...] 10:00 AM EST Office [place] [address] Tania Gates, [facility] [place] [address] documented as of this encounter Visit Diagnoses Not on filedocumented in this encounter Care Teams Rn Clinician Relationship Specialty Start Date End Date Robinson Vazquez, PLATFORM MAN [address] [place] [address] PCP - General Family Medicine 12/11/20 10/03/22 documented as of this encounter
--- OUTSIDE RECORDS SUMMARY | 2023-10-24 15:59 | XMS_ITS | Encounter Summary ---
[place] [address] Care Team Providers Care Yield Engineer Name Role Phone Robinson Vazquez APRN Primary Care Provider +1- [phone] Encounter Details Date Type Department Care Team (Late st Contact Info) Description 10/29/2021 Telephone Cardiology at [address] [phone] Eileen Williamson, RN Social History Tobacco Use Types Packs/Day Years [...] encounter Miscellaneous Notes * Telephone Encounter - Eileen Williamson, RN - 10/29/2021 4:18 PM EDT RTC to Mrs Patricio who is asking if her 's cath report from 12/29/2020, has any report of abnormal heart muscle. Mrs Patricio states Mr Patricio will have an appointment in November with a new relief map modeler in [facility]. Recommend to her several times, that Mr Patricio, and she speakwith his new relief map modeler regarding any and all cardiac testing for a review, interpretation, and treatment plan, with his new relief map modeler, as no staff or nurses, can render such an interpretation. Eileen Williamson (Jodie), RN, BSN [facility] documented in this encounter Plan of Treatment Upcoming Encounters Date Type Department Care Team (Late st Contact Info) Description 03/20/2024 10:00 AM EST Office [place] [address] Tania Gates, [facility] [place] [address] documented as of this encounter Visit Diagnoses Not on filedocumented in this encounter Care Teams Yield Engineer Relationship Specialty Start Date End Date Robinson Vazquez, JOVANI [address] [place] [address] PCP - General Family Medicine 12/11/20 10/03/22 documented as of this encounter
--- OUTSIDE RECORDS SUMMARY | 2023-10-24 15:59 | XMS_ITS | Encounter Summary ---
Author Organization [facility] [place] [address] Care Team Providers Care Sheet Metal Shop Supervisor Name Role Phone Robinson Vazquez APRN Primary Care Provider +1- [phone] Encounter Details Date Type Department Care Team (Latest Contact Info) Description 09/05/2022 Travel Social History Tobacco Use Types Packs/Day [...] 10:00 AM EST Office [place] [address] Tania Gates OD [facility] [place] [address] documented as of this encounter Visit Diagnoses Not on filedocumented in this encounter Care Teams Sheet Metal Shop Supervisor Relationship Specialty Start Date End Date Robinson Vazquez APRN [address] [place] [address] PCP - General Family Medicine 12/11/20 10/03/22 documented as of this encounter
--- OUTSIDE RECORDS SUMMARY | 2023-10-24 15:59 | XMS_ITS | Encounter Summary ---
Author Organization [facility] [place] [address] Care Team Providers Care Visitor Services Specialist Name Role Phone Robinson Vazquez APRN Primary Care Provider +1- [phone] Encounter Details Date Type Department Care Team (Latest Contact Info) Description 01/26/2022 Travel Social History Tobacco Use Types Packs/Day [...] 10:00 AM EST Office [place] [address] Tania Gates OD [facility] [place] [address] documented as of this encounter Visit Diagnoses Not on filedocumented in this encounter Care Teams Visitor Services Specialist Relationship Specialty Start Date End Date Robinson Vazquez APRN [address] [place] [address] PCP - General Family Medicine 12/11/20 10/03/22 documented as of this encounter
--- OUTSIDE RECORDS SUMMARY | 2023-10-24 15:59 | XMS_ITS | Encounter Summary ---
Author Organization [facility] [place] [address] Care Team Providers Care Audio Visual Coordinator Name Role Phone Robinson Vazquez APRN Primary Care Provider +1- [phone] Reason for Visit * Consultation (Routine) - Closed Specialty Diagnoses / Procedures Referred By Keith sanhcez Referred To Contact Dermatology Diagnoses Actinic keratosis Actinic Keratosis due to Sun Exposure; New Patient-Notes Received Procedures Consult Robinson Vazquez APRN [address] [place] [address] [facility] Dermatology [address] [place] [address] Referral ID Status Reason Start Date Expiration Date Visits Re quested Visits Authorized [id number] Closed 01/25/2021 01/25/2022 1 1 Encounter Details Date Type Department Care Team (Late st Contact Info) Description 03/30/2021 8:40 AM EST Office Visit Dermatology at [facility] [address] [place] [address] Amada Ferguson MD [facility] [address] [place] [address] SK (seborrheic keratosis); Multiple benign melanocytic nevi of upper extremity, lower extremity, and trunk; Lentigines Social History Tobacco Use Types Packs/Day Years [...] Notes * Amada Ferguson MD - 03/30/2021 8:40 AM [...] No Social History Occupation: Retired Hobbies: Build trophies Other: PRE-PROCEDURE SCREENING Details Allergy to lidocaine, [...] growing out and he would like examined. He reports some lesions grow horns. - He notes [...] and socks on and have the following examined: scalp, hair, face, ears, neck, chest, axillae, [...] can be removed cosmetically. Advised patient of [id number] cost. - Start OTC AmLactin Cream: Apply topically once daily. #. Solar lentigines EXAM: concentrated in sun-exposed areas (distal upper and lower extremities, shoulders, face), there are numerous, light brown macules with moth-eaten borders [...] 1 year for FSE [x]Note routed to ambulance driver paramedic []Recall placed in scheduling system []Appointment scheduled at checkout Scribe attestation: Anna Marie Vizcarra has performed the documentation for this encounter in the presence of and acting as a scribe for Amada Ferguson MD. I performed the above scribed service and agree with the accuracy of the documentation in this encounter. Reviewed and signed by: Amada Ferguson MD Dermatology [facility] Patient seen and evaluated with staff casting cleaner: Zo Esqueda MD Dermatology [facility] * Zo Esqueda MD - 03/30/2021 8:40 AM [...] 10:00 AM EST [place] [address] Tania Gates OD [facility] [place] [address] documented as of this encounter Visit Diagnoses Diagnosis SK (seborrheic keratosis) Other seborrheic keratosis Multiple benign melanocytic nevi of upper extremity, lower extremity, and trunk Lentigines Other dyschromia documented in this encounter Care Teams Audio Visual Coordinator Relationship Specialty Start Date End Date Robinson Vazquez, JOVANI [address] [place] [address] PCP - General Family Medicine 12/11/20 10/03/22 documented as of this encounter
--- OUTSIDE RECORDS SUMMARY | 2023-10-24 15:59 | XMS_ITS | Encounter Summary ---
Author Organization [facility] [place] [address] Care Team Providers Care Tie Puller Name Role Phone Robinson Vazquez APRN Primary Care Provider +1- [phone] Encounter Details Date Type Department Care Team (Latest Contact Info) Description 02/24/2022 Travel Social History Tobacco Use Types Packs/Day [...] 10:00 AM EST Office [place] [address] Tania Gates OD [facility] [place] [address] documented as of this encounter Visit Diagnoses Not on filedocumented in this encounter Care Teams Tie Puller Relationship Specialty Start Date End Date Robinson Vazquez APRN [address] [place] [address] PCP - General Family Medicine 12/11/20 10/03/22 documented as of this encounter
--- OUTSIDE RECORDS SUMMARY | 2023-10-24 16:00 | XMS_ITS | Encounter Summary ---
[place] [address] Care Team Providers Care Gis Technician Name Role Phone Robinson Vazquez APRN Primary Care Provider +1- [phone] Encounter Details Date Type Department Care Team (Late st Contact Info) Description 12/18/2020 Orders [place] [phone] Royce Donahue PA [facility] [place] [place] [address] Screening for cardiovascular condition; Coronary artery disease, unspecified vessel or lesion type, unspecified whether angina present, unspecified whether tulalip or transplanted heart; Chest discomfort Social History Tobacco Use Types Packs/Day Years [...] 10:00 AM EST Office [place] [phone] Tania Gates OD [facility] [place] [address] documented as of this encounter Visit Diagnoses Diagnosis Screening for cardiovascular condition Screening for other and unspecified cardiovascular conditions Coronary artery disease, unspecified vessel or lesion type, unspecified whether angina present, unspecified whether tulalip or transplanted heart Chest discomfort Other chest pain documented in this encounter Care Teams Gis Technician Relationship Specialty Start Date End Date Robinson Vazquez, SCRAP HANDLER [address] [place] [address] PCP - General Family Medicine 12/11/20 10/03/22 documented as of this encounter
--- OUTSIDE RECORDS SUMMARY | 2023-10-24 16:00 | XMS_ITS | Encounter Summary ---
Author Organization [facility] [place] [address] Care Team Providers Care Floor Hand Name Role Phone Sae Marr MD Primary Care Provider [phone] Reason for Referral * Consultation (Routine) - Specialty Diagnoses / Procedures Referred By Contac t Referred To Contact Cardiology Diagnoses ST elevation myocardial infarction involving right coronary artery Philip Johnson MD [facility] [place] [address] Yuliya Gtz MD [address] [place] [address] [place] [address] Referral ID Status Reason Start Date Expiration Date V isits Requested Visits Authorized [id number] Consult, Test & Treat 08/07/2019 02/03/2020 1 1 * Consultation (Routine) - Closed Specialty Diagnoses / Procedures Referred By Contact Referred To Contact Cardiac Rehabilitation Diagnoses ST elevation myocardial infarction (STEMI), unspecified artery Tariq Guerrero MD [facility] [place] [address] Cardiac Rehab, [address] [place] [address] Referral ID Status Reason Start Date Expiration Date V isits Requested Visits Authorized [id number] Closed Consult, Test & Treat 08/07/2019 02/03/2020 36 36 Reason for Visit * Reason Comments Hospital Transfer Chest Pain * Auth/Cert Specialty Diagnoses / Procedures Referred By Contac t Referred To Contact Diagnoses STEMI (ST elevation myocardial infarction) ST elevation myocardial infarction (STEMI), unspecified artery STEMI Referral ID Status Reason Start Date Expiration Date Visits Re quested Visits Authorized [id number] 1 1 Encounter Details Date Type Department Care Team (Latest Contact Info) Description 08/06/2019 1:58 AM EDT - 08/07/2019 6:17 PM EDT Hospital Encounter [place] [address] Tiffanie Espino MD [facility] DR EMERG[facility]IC[facility] [place] [id number] Tariq Guerrero MD [facility] [place] [address] ST elevation myocardial infarction (STEMI), unspecified artery; ST elevation myocardial infarction involving right coronary artery Discharge Disposition: Against Medical Advice Social History Tobacco Use Types Packs/Day Years [...] EDT Temperature 36.9 ??C (98.4 ??F) 08/07/2019 1 1:26 AM EDT Respiratory Rate 16 08/07/2019 5:12 PM EDT Oxygen Saturation 95% 08/07/2019 5:12 PM EDT Inhaled Oxygen Concentration - - Weight 117.6 kg (259 lb 4.2 oz) 08/07/2019 6:05 AM EDT Height - - Body Mass Index 35.16 07/04/2018 8:37 PM EDT documented in this encounter Discharge Summaries * Drew Damon MD - 08/07/2019 5:42 PM EDT Cardiology - Discharge Summary Patient Name: Samy Patricio Jr. Patient Age: 53 y.o. Birthdate: 1965 Admit date: 08/06/2019 Discharge date and time: 08/07/2019 Attending Physician: Tariq Guerrero MD Follow-up Recommendations for Providers: 1. PRIMARY CARE - SAE MARR MD, August - [[phone]] - Please follow up with patient regarding his recent hospitalization for Inferior STEMI, s/p EDEN toRCA. - Please assess when appropriate to initiate Lisinopril; recommend BMP in the next 5-7 days to ensure that renal function is stable. - Please continue to aids counselor regarding smoking cessation; he has been discharged with a Nicotine Patch. - Please consider referral to Sleep Medicine for Sleep Study; patient noted to have 3 L QHS oxygen requirement due to episodic desaturations. - LVEDP was 21 on [facility] - please assess need for maintenance diuretic. - Please note that patient left hospital AMA on 08/07/19. 2. CARDIOLOGY - DR. YULIYA GTZ, August: - Please follow up with patient regarding his recent hospitalization for Inferior STEMI, s/p EDEN toRCA. - Patient has been discharged on ASA [...] cessation; he has been discharged with a NicotinePatch. - LVEDP was 21 on [facility] - please assess need for maintenance diuretic. [...] Discussed ticagrelor with the patient, could not afford in the past. Prasugrel would be the best option, as this is generic and has improved data in ACS compared to ticagrelor or plavix, reducing stroke, [place] and (NEJM 2019). ?? Give plavix 75 [...] consciousness during these episodes but did not hit his head. The syncopal episodes prompted his to call 911. Per the probe operator's instructionshe took SLN x3, but did not experience any relief of symptoms. ?? EMS arrived and noted his heart rate to be in the 30s with blood pressures 60s/30s. He was transcutaneously paced en route to [facility]. EKG at [facility] showed STEs in the inferior leads with reciprocal changes in the lateral leads. Dopamine was initiated, but [...] responsive, as such intubation was deferred. He was transitioned form dopamine to epinephrine. ?? He was transferred to the [facility] ED for evaluation. On arrival to [facility] he had continued chest pain, but his EKG changes had resolved. He was on 1.5 of epi with heart rates in the 80s and blood pressures in the 110s/50s. He was taken immediately to the labour market economist where he had a EDEN placed to his proximal RCA. He was weaned off of epinephrine in the labour market economist and transferred to the CSCU. ?? In [...] Prasugrel therapy. The patient's dual pressor support waspromptly weaned following revascularization; given recent shock physiology, [...] Home oral anti-hyperglycemics were held. Hgb A1c was6.3%, indicating well-controlled T2DM. # Tobacco Use Disorder [...] DILATION AND TEST, RAMIRO; TECHRAMIRO Ophthalmology at [facility] Arrive at: Retail Warehouse Supervisor Area 4B [phone] Future Orders Complete By Expires Referral to Cardiac Rehab [[id number] Custom] As directed Process Instructions: If no progress note charted, please enter Clinical details in comments. Scheduling Instructions: Questions: My question or request is: STEMI. Cardiac rehab at [facility]. Referral to Cardiology [REF12 Custom] As directed [...] in cravings to smoke you may go backto the higher dose for another 2 weeks [...] nicotine in the body. The nicotine dissolves rightthrough the skin and enters the body. Less nicotine is obtained through the patch than in cigarettes. The patch does NOT contain all the tars [...] other Nicotine Replacement Therapy products such as Nicotine gum or lozenges. Ask your healthcare provider about combination therapy to increase your chances of successfully quitting tobacco for good! ?? The US Food and Drug Administration has recently released a statement that there are no significantrisks associated with the use of Nicotine Replacement [...] as you wake up, 30 minutes before meals and at bedtime at a minimum. ?? Nicotine lozenges must be used properly in order to be effective. Nicotine from the lozenge is absorbed through the mucous membranes in your mouth at a certain acidity or pH level. Therefore do not eat or drink anything but water for 15 minutes prior to or during use. ?? Directions: Place the nicotine lozenge on the tongue or between the cheek and the jaw. Allow the lozenge to dissolve. Do not bite, chew or swallow whole or in pieces. Do not ???work?? the lozenge like a hard candy or you may create too much saliva and swallow this extra liquid which may upset yourstomach. The most common side effects from Nicotine lozenges are nausea, hiccups and heartburn. This can be reduced by following the instructions for proper use. ?? Nicotine lozenges come in two strengths, 2 mg and 4 mg. You should use the 2 mg lozenge if you smoke your first cigarette more than 30 minutes after waking. You should use the 4 mg lozenge if you smoke your first cigarette less than 30 minutes after waking. You can use up to 20 lozenges a day. ?? Nicotine lozenges can be combined with Nicotine patches for increased chances of successfully quitting tobacco for good! ?? The US Food and Drug Administration has recently released a statement that there are no significantrisks associated with the use of Nicotine Replacement [...] one of your heart arteries. This was fixed with a stent that was placed during a cardiac catheretization. Because you had this procedure, youshouldn't lift anything greater than 10 lbs for the next week and nothing greater than 20 lbs for 2 weeks. After that time you may go back to regular activity and work. Call your doctor if your Right groin pain gets worse, or you develop swelling or redness in that area. Also, call your doctor if you develop sudden chest pain or shortness of breath, especially chestpain that does not go away with nitroglycerin. It is important that you take your aspirin 81mg daily forever and clopidogrel 75mg daily for at least 1 year. Do not miss any doses of these medications! New Medications: Aspirin: this is a platelet inhibitor that will help prevent clot build up in your arteries, as well as in the stent that was placed. Continue taking 81mg daily indefinitely. Prasugrel: this is a second platelet inhibitor that will help prevent clot build up in the stent that was placed. It is very important that you take this medication every day at least for one year tohelp keep your stent open. Follow up with [...] may make you dizzy, so sitting down before taking this is safest). If your chest pain [...] appointments: During 8am-5pm Monday through Monday call [phone] to speak with a nurse in the cardiology clinic All other times call [phone] and ask to speak to the director reactor projects loss prevention operations manager. Activity level: - No heavy lifting (more [...] may be washed with soap/water. A dressing does not need to be reapplied unless irritation occurs [...] factor for cancer and emphysema. Your health careprovider can provide specific measures to assist you, including nicotine supplements, anti-anxiety meds, and support groups in your community. Home oxygen therapy: N/A Arrangements for VNA/home care: N/A Follow up Appointments: Future Appointments Date Time Provider Department Center 02/11/2020 8:40 AM Tania Gates OD [facility] OPHT 4B [facility] Follow-Up Appointments Date and Time Provider and Specialty Location August 18 8:40am [facility] September 04 YULIYA GTZ MD [place], [place] Process Server: Yuliya Gtz MD at [phone] PCP: Sae Marr MD at [phone] Your Primary Care Provider: Sae Marr MD [address] [place] [phone] For questions regarding issues relating to your hospitalization on the Hospital Medicine Service, please contact your inpatient physician through the [facility] Catastrophe Claims Supervisor [phone]. Issues after hours and on weekends will be handled by the Hospitalist staff on-call. For questions regarding this document or issues relating to this hospitalization on the Medical Service, please contact your inpatient physician through the [facility] Catastrophe Claims Supervisor . Issues afterhours and on weekends will be handled by the Process Server staff on-call. documented in this encounter Discharge Instructions * Discharge Instructions* Bryn Guevara RN - 08/06/2019 2:49 PM EDT [...] in cravings to smoke you may go backto the higher dose for another 2 weeks [...] nicotine in the body. The nicotine dissolves rightthrough the skin and enters the body. Less nicotine is obtained through the patch than in cigarettes. The patch does NOT contain all the tars [...] other Nicotine Replacement Therapy products such as Nicotine gum or lozenges. Ask your healthcare provider about combination therapy to increase your chances of successfully quitting tobacco for good! ?? The US Food and Drug Administration has recently released a statement that there are no significantrisks associated with the use of Nicotine Replacement [...] as you wake up, 30 minutes before meals and at bedtime at a minimum. ?? Nicotine lozenges must be used properly in order to be effective. Nicotine from the lozenge is absorbed through the mucous membranes in your mouth at a certain acidity or pH level. Therefore do not eat or drink anything but water for 15 minutes prior to or during use. ?? Directions: Place the nicotine lozenge on the tongue or between the cheek and the jaw. Allow the lozenge to dissolve. Do not bite, chew or swallow whole or in pieces. Do not ???work?? the lozenge like a hard candy or you may create too much saliva and swallow this extra liquid which may upset yourstomach. The most common side effects from Nicotine lozenges are nausea, hiccups and heartburn. This can be reduced by following the instructions for proper use. ?? Nicotine lozenges come in two strengths, 2 mg and 4 mg. You should use the 2 mg lozenge if you smoke your first cigarette more than 30 minutes after waking. You should use the 4 mg lozenge if you smoke your first cigarette less than 30 minutes after waking. You can use up to 20 lozenges a day. ?? Nicotine lozenges can be combined with Nicotine patches for increased chances of successfully quitting tobacco for good! ?? The US Food and Drug Administration has recently released a statement that there are no significantrisks associated with the use of Nicotine Replacement Therapy products for longer than the labeled number of weeks of use. ?? References: Treating Tobacco Use and Dependence, Clinical Practice Guideline 2008 Update, U.S. Department of Health and Human Services, July 2007 * Patient Instructions* Drew Damon MD - 08/07/2019 11:57 AM EDT Patient Instructions on Discharge to Home Why you were hospitalized: You had a heart attack, which was caused by a blockage in one of your heart arteries. This was fixed with a stent that was placed during a cardiac catheretization. Because you had this procedure, youshouldn't lift anything greater than 10 lbs for the next week and nothing greater than 20 lbs for 2 weeks. After that time you may go back to regular activity and work. Call your doctor if your Right groin pain gets worse, or you develop swelling or redness in that area. Also, call your doctor if you develop sudden chest pain or shortness of breath, especially chestpain that does not go away with nitroglycerin. It is important that you take your aspirin 81mg daily forever and clopidogrel 75mg daily for at least 1 year. Do not miss any doses of these medications! New Medications: Aspirin: this is a platelet inhibitor that will help prevent clot build up in your arteries, as well as in the stent that was placed. Continue taking 81mg daily indefinitely. Prasugrel: this is a second platelet inhibitor that will help prevent clot build up in the stent that was placed. It is very important that you take this medication every day at least for one year tohelp keep your stent open. Follow up with [...] may make you dizzy, so sitting down before taking this is safest). If your chest pain [...] appointments: During 8am-5pm Monday through Monday call [phone] to speak with a nurse in the cardiology clinic All other times call [phone] and ask to speak to the director reactor projects loss prevention operations manager. Activity level: - No heavy lifting (more [...] may be washed with soap/water. A dressing does not need to be reapplied unless irritation occurs [...] factor for cancer and emphysema. Your health careprovider can provide specific measures to assist you, including nicotine supplements, anti-anxiety meds, and support groups in your community. Home oxygen therapy: N/A Arrangements for VNA/home care: N/A Follow up Appointments: Future Appointments Date Time Provider Department Center 02/11/2020 8:40 AM Tania Gates OD [facility] OPHT 4B [facility] Follow-Up Appointments Date and Time Provider and Specialty Location August 18 8:40am [facility] September 04 YULIYA GTZ MD [place], [place] Process Server: Yuliya Gtz MD at [phone] PCP: Sae Marr MD at [phone] Your Primary Care Provider: Sae Marr MD [address] [place] [phone] For questions regarding issues relating to your hospitalization on the Hospital Medicine Service, please contact your inpatient physician through the [facility] Catastrophe Claims Supervisor [phone]. Issues after hours and on weekends will be handled by the Hospitalist staff on-call. * Attachments The following attachments cannot be sent through Care Everywhere. * Smoking: Stopping (Moroccan) * Smoking: Anti-Smoking Medication: Deciding About (Moroccan) * Smoking Cessation: Health Benefits: General Info (Moroccan) * Cardiac Rehabilitation (Moroccan) * Heart Attack: Medicine for Secondary Prevention (Moroccan) * PCI (Percutaneous Coronary Intervention): Post-op (Moroccan) documented in this encounter Medications at Time of Discharge Medication Sig Dispensed Refills Start Date End Date acetaminophen (Tylenol) 325 mg tablet every 6 hours as needed. 06/27/2019 insulin needles, disposable, 31 gauge x 05/26 Needle 03/19/2019 atorvastatin (Lipitor) 80 mg Tablet Take 1 [...] Take 81 mg by mouth Daily. 08/27/2017 prasugreL (Effient) 10 mg Tablet Take 1 tablet by mouth daily. 30 tablet 3 08/08/2019 12/28/2020 sucralfate (Carafate) 100 mg/mL Suspension Take 10 mLs by mouth every 6 hours. 420 mL 08/07/2019 12/28/2020 metoprolol succinate XL (Toprol-XL) 100 mg Tablet Sustained Release 24 hr Take 1 tablet by mouth daily. 30 tablet 3 08/07/2019 10/05/2022 metFORMIN (GLUCOPHAGE-XR) 500 mg Tablet Sustained Release 24 hr Take 1,000 mg by mouth 2 times daily. 3 10/14/2018 09/06/2022 lancets 33 gauge Misc Lancets MISC USE DIRECTED. Active 09/06/2022 glipiZIDE (GLUCOTROL) 5 mg Tablet Take 10 mg by mouth 2 times daily (before meals). 4 11/15/2016 02/24/2022 documented as of this encounter Progress Notes * Maureen Carrillo RN - 08/07/2019 6:13 PM EDT Pt left AMA after education and concerns provided. A+O throughout shift. No complaints of chest pain or sob. VSS, see flowsheets. NSR on tele, see report. Ambulating with staff, no complaints. Blood sugar covered throughout shift and patient educated to resume home medication regimen. Education anddischarge teaching provided. Patient and voiced understanding and importance to change lifestyle. IVs and tele dc'd. AMA form signed and in chart. DC to home with . * Drew Damon MD - 08/07/2019 7:15 AM [...] - S/P TNK prior to transfer to [facility] - S/P Prasugrel & ASA load followed by maintenance ASA 81 mg & Prasugrel 10 mg - LVEDP 21 in the Soda Jerker - Prior to Cardiac Catheterization, noted to [...] discussion with patient and regarding the need to stay in house 72 hours post cath for monitoring. Patient agreed to stay tonight but would leave at8am tomorrow. Patient has poor risk factor control, partly due to patient's unwilling to sacrifice his personal lifestyle in discussion with . Emphasized to [...] was high. 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 3. COPD - Duoneb q4h [...] diuretic. Drew Damon MD 08/07/2019 Cardiology S2, 1631 Associated attestation - Tariq Guerrero MD - [...] day insisted on leaving against medical advice. * Rama Park RN - 08/06/2019 4:49 PM EDT 1500: report received, care assumed. Pt., is A&O, VS in doc flow, tele: SR full report in chart. Pt., assessment benign (see doc flow). He is resting comfortably in bed, he denies CP/SOB. S/O at the bedside, call blankenship within reach. Will continue to monitor. Plan: continue to monitor s/p STEMI and cath, med manage, discharge planning as appropriate. * Philip Johnson MD - 08/06/2019 10:43 AM [...] site. ---- Philip Johnson MD PGY3, IM * Natalia Renee RN - 08/06/2019 4:56 AM EDT Pt arrived to room 450a. Tele on, oriented to room. VSS, see flowsheet. SR on tele, see saved strips. Denies CP or SOB. TR band in place with 12 cc of air. Resting in bed. Will continue to monitor. documented in this encounter H&P Notes * Lovely Moise MD - 08/06/2019 1:11 AM EDT Cardiology Admission History and Physical Patient Name: Samy Patricio Jr. Service: S2 Team Responsible Attending: Tariq Guerrero MD PCP: Sae Marr MD PCP phone #: [phone] ID/Chief Complaint: Inferior STEMI History of Present [...] consciousness during these episodes but did not hit his head. The syncopal episodes prompted his to call 911. Per the probe operator's instructionshe took SLN x3, but did not experience any relief of symptoms. EMS arrived and noted his heart rate to be in the 30s with blood pressures 60s/30s. He was transcutaneously paced en route to [facility]. EKG at [facility] showed STEs in the inferior leads with reciprocal changes in the lateral leads. Dopamine was initiated, but [...] responsive, as such intubation was deferred. He was transitioned form dopamine to epinephrine. He was transferred to the [facility] ED for evaluation. On arrival to [facility] he had continued chest pain, but his EKG changes had resolved. He was on 1.5 of epi with heart rates in the 80s and blood pressures in the 110s/50s. He was taken immediately to the labour market economist where he had a EDEN placed to his proximal RCA. He was weaned off of epinephrine in the labour market economist and transferred to the CSCU. In the [...] 1 TABLET UNDER TONGUE EVERY 5 MINUTESAS DIRECTED 3 ??? metFORMIN (GLUCOPHAGE-XR) 500 mg Tablet Sustained Release 24 hr Take 1,000 mg by mouth 2 times daily. 3 ??? isosorbide mononitrate (IMDUR) 120 mg Tablet Sustained Release 24 hr Take 120 mg by mouth daily. ??? lancets 33 gauge Misc Lancets [facility] USE DIRECTED. Active ??? 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 Appears stated age. HEENT: EOMI, anicteric sclera. 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 Moist mucous membranes Neck: Supple [...] in the last 7068 hours. Invalid input(s): [id number] Heme: No results for input(s): LDH, HAPTOGLOBIN, [...] for anti- platelet therapy. Otherwise will initiate on GDMT, will hold off on beta geronimo and CHRIS inhibitor for now as patient was just weaned off of epi several hours ago. LVEDP was 21, but will hold off on diuresis for now given recent pressor requirement. PLAN: Admit to Cardiology, S2 Team Pager # [phone] #CAD #inferior STEMI - s/p asa 324 - s/p plavix 300 - s/p TNK 50 - aspirin 81mg daily - plavix 75mg today - prasugrel 60mg tomorrow (08/06) - prasugrel 10mg daily starting 08/07 - atorvastatin 80mg daily - hold off on beta geronimo and CHRIS given pressor requirement - home doses: metoprolol [...] Wellbutrin. documented in this encounter ED Notes * Mendoza Richards MD - 08/06/2019 2:05 AM [...] epinephrine. Now off pressors, reports no chest pain.Denies recent illness, cough, shortness of breath, sick exposures, fevers, chills, nausea or vomiting. Patient met at the bedside by cardiology and will be rushed to the Soda Jerker. Review of Systems: Review of Systems Constitutional: [...] he is now off pressors, and chest pain-free.He is status post lytics. EKG obtained here shows resolution of his ST segment elevation. He was met the bedside by cardiology and was rushed to the Soda Jerker. No infectious symptoms concerning for COVID. Mendoza Richards MD Resident 08/06/192149 Associated attestation - Tiffanie Espino MD - 08/24/2019 5:11 AM EDT ED ATTENDING ATTESTATION NOTE The patient was seen in conjunction with the resident physician. I have independently performed thekey portions of the history and physical exam. I have reviewed the nursing notes, vital signs, and all diagnostic studies personally including labs, imaging studies and EKGs. I have discussed the details of the case with the resident and agree with the assessment and plan as described in the resident note above unless noted otherwise below. documented in this encounter Miscellaneous Notes * Consult Note - Sofya Rios RN - 08/07/2019 10:33 AM EDT Cardiac Rehabilitation Inpatient Evaluation Primary Cardiac Diagnosis: STEMI, s/p PCI Cardiac Risk Factors: Smoking: yes, has met with the tobacco cessation nurse Overweight: yes Hyperlipidemia: yes Sedentary: no HTN: no Family history: no DM: yes Stress: did not discuss Patient Education: Reviewed cardiac cath findings, implications of coronary artery disease, managing angina and risk factor modification. Heart diagram reviewed. Reviewed managing angina /use of sl nitroglycerin. Mediterranean diet guidelines briefly reviewed. Given parameters for home exercise. Patient states he walks several days/week for exercise. Phase II Referral: Participation in the outpatient cardiac rehabilitation program at [facility] was discussed. Patient agrees to a referral to this program. He participated in a few sessions of cardiac rehab [facility] in 2018 s/p PCI. The referral [...] SR SR Symptoms/Comments: well tolerated. No sx. 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 No problem w/ADL's Living Situation: lives w/spouse in a single level w/3STE and also has a camp w/2STE Physical Address [address] [place] [address] [place] [address] Supports: Lives w/ and [id number] who are both supportive. Also has friends and family closeby for support. Assessment: Patient with no apparent RNCM/SW needs at this time. No housing, transportation, insurance, resources concerns identified at this time. Supports in place to achieve a safe post-hospital transition. No identified barriers to accessing necessary care and/or follow-up after discharge. Plan: Patient to d/c to home via car w/ when medically ready. temperature logging operator/Historiography Teacher will continue to follow patient???s progress and remain available if situation changes for coordination of care, psychosocial support and/or discharge planning. Kareen Samayoa RN Pager [phone] [address] [phone] * Plan of Care - Natalia Renee RN [...] factors per assessment: [current deficits]: Unfamiliar environment, tele, O2, IV Assistance [level of assistance required for transfers and ambulation]: Ind Supervision [direct monitoring required during toileting and ADLs]: Ind Surveillance [continuous indirect monitoring]: Tele, O2, call light in reach, purposeful rounding Patient-specific fall prevention interventions for sensory deficits provided, if applicable: [X] N/A CPG GOAL OUTCOME EVALUATION: ongoing * Consult Note - Bryn Guevara RN - 08/06/2019 2:39 PM EDT TOBACCO DEPENDENCE TREATMENT NOTE DATE: 08/06/2019 NAME: Samy Patricio Jr. : 1965 S: I've been smoking 2 packs a day since I was 19. There was a time, a long time ago, that I was up to 3 packs a day. I started smoking when I was 13. The cravings are horrible. I don't know what I'm going to do. O: Referral received. Chart reviewed. I met with patient this morning to discuss his tobacco use and assess his readiness to quit. He is currently [...] patch for 42 mg total . Instructions for each will be included in AVS for review. A: Pt did not wish to participate in consult, but is willing to commit to a quit attempt. Pt is in the PREPARATION stage of change. P: Continue current plan of care. Please contact me with additional questions or concerns. Thank you. Bryn Guevara, MSN, RN-, [facility] Tobacco Buncher Operator [facility] Pager #[phone] * Plan of Care - Daniel Sands RN - 08/06/2019 11:13 AM EDT Problem: Cardiac Cath/Percutaneous Coronary Intervention (Adult) Goal: Signs and Symptoms of Listed Potential Problems Will be Absent, Minimized or Managed (CardiacCath/Percutaneous Coronary Intervention) Signs and symptoms of listed [...] provided, if applicable: CPG GOAL OUTCOME EVALUATION: * Op Note - Jung Merino MD - 08/06/2019 3:50 AM EDT [facility] Operative Note Patient Name: Samy Patricio Jr. : [id number] MR#: [id number] Case Date: 08/06/2019 Surgeon: Surgeon(s) and Role: * Jung Merino MD - Primary * Jose Ellison MD - Fellow Preoperative diagnosis: STEMI Postoperative diagnosis: STEMI, treated with 1 EDEN to proximal RCA Recommend: 1. Received plavix in the setting of lytics. Discussed ticagrelor with the patient, could not afford in the past. Prasugrel would be the best option, as this is generic and has improved data in ACS compared to ticagrelor or plavix, reducing stroke, [place] and (NEJM 2019). Give plavix 75 mg [...] Full report to follow. 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 3PM patient started to have chest pain continued to get worse. Took 3 SL nitro at home and EMS was called. documented in this encounter Plan of Treatment Upcoming Encounters Date Type Department Care Team (Late st Contact Info) Description 03/20/2024 10:00 AM EST Office [place] [address] [place] [address] Scheduled Orders Name Type Priority Associated Diagnoses Orde r Schedule EKG [address] elevation myocardial infarction (STEMI), unspecified artery One Time for 1 Occurrences starting 08/06/2019 until 08/06/2019 Scheduled Referrals Name Type Priority Associated Diagnoses Orde r Schedule Referral to Cardiac Rehab Outpatient Referral Routine ST elevation myocardial infarction (STEMI), unspecified artery Ordered: 08/07/2019 Referral to Cardiology Outpatient Referral Routine ST elevation myocardial infarction involving right coronary artery Ordered: 08/07/2019 documented as of this encounter Procedures Procedure Name Priority Date/Time Associated Diagnosis Comments POCT GLUCOSE Routine 08/07/2019 4:53 PM EDT POCT GLUCOSE Routine 08/07/2019 1:55 PM EDT HC VENIPUNCTURE Routine 08/07/2019 12:05 PM EDT POCT GLUCOSE Routine 08/07/2019 11:20 AM EDT EKG 12-LEAD Routine 08/07/2019 8:[address] elevation myocardial infarction (STEMI), unspecified artery POCT GLUCOSE Routine 08/07/2019 7:23 AM EDT BMP W/FASTING GLUCOSE Routine 08/07/2019 5:53 AM EDT HEMOGRAM Routine 08/07/2019 5:53 AM EDT DIFFERENTIAL, AUTOMATED Routine 08/07/19 5:53 AM EDT HC VENIPUNCTURE Routine 08/07/2019 5:53 AM EDT HC TROPONIN T Routine 08/07/2019 5:53 AM EDT HC MAGNESIUM, SERUM Routine 08/07/2019 5 :53 AM EDT CK Routine 08/07/2019 5:53 AM EDT POCT GLUCOSE Routine 08/07/2019 4:16 AM EDT HC VENIPUNCTURE Routine 08/07/2019 12:28 AM EDT HC CREATINE PHOSPHOKINASE, SERUM Routine 08/07/2019 12:28 AM EDT POCT GLUCOSE Routine 08/06/2019 11:26 PM EDT EKG 12-LEAD STAT 08/06/2019 8:[address] elevation myocardial infarction (STEMI), unspecified artery POCT GLUCOSE Routine 08/06/2019 7:59 PM EDT HC VENIPUNCTURE Routine 08/06/2019 6:13 PM EDT HC CREATINE PHOSPHOKINASE, SERUM Routine 08/06/2019 6:13 PM EDT POCT GLUCOSE Routine 08/06/2019 4:18 PM EDT HC MAGNESIUM, SERUM Routine 08/06/2019 2 :06 PM EDT HC VENIPUNCTURE Routine 08/06/2019 2:06 PM EDT HC VENIPUNCTURE Routine 08/06/2019 12:05 PM EDT HC CREATINE PHOSPHOKINASE, SERUM Routine 08/06/2019 12:05 PM EDT POCT GLUCOSE Routine 08/06/2019 11:13 AM EDT ECHO COMPLETE Routine 08/06/2019 9:[address] elevation myocardial infarction (STEMI), unspecified artery POCT GLUCOSE Routine 08/06/2019 7:18 AM EDT XR CHEST ONE VIEW Routine 08/06/2019 6:5 2 AM EDT EKG 12-LEAD Routine 08/06/2019 6:[address] elevation myocardial infarction (STEMI), unspecified artery CRP, ACUTE INFLAMMATION STAT 08/06/19 20 5:35 AM EDT HEMOGRAM STAT 08/06/2019 5:35 AM EDT DIFFERENTIAL, AUTOMATED STAT 08/06/19 5:35 AM EDT SEDIMENTATION RATE STAT 08/06/2019 5: 35 AM EDT HC CBC,PLT & AUTO DIFF STAT 0 5:35 AM EDT HC TROPONIN T STAT 08/06/2019 5:35 AM EDT HC HEMOGLOBIN A1C Routine 08/06/2019 5:3 5 AM EDT LIPID PANEL (REFLEX DIRECT LDL) Routine 08/06/2019 5:35 AM EDT BASIC METABOLIC PANEL STAT 08/06/2019 5:35 AM EDT POCT GLUCOSE Routine 08/06/2019 5:32 AM EDT CARDIAC CATHETERIZATION STAT 08/06/19 20 4:[address] elevation myocardial infarction (STEMI), unspecified artery EKG 12-LEAD STAT 08/06/2019 2:05 AM EDT documented in this encounter Results * (ABNORMAL) POCT Glucose (08/07/2019 4:53 PM EDT) Glucose, POC 286(H) 65 - 199 mg/dL [facility] Comment: Supplemental ranges: <140 mg/dL before meals <180 mg/dL all other times of the day Blood specimen (specimen) 08/07/2019 4:53 PM EDT 08/07/2019 4:53 PM EDT Tariq Guerrero MD POINT OF CARE TEST O SAEID Performing Organization Address City/[facility]/ZIP Co de Phone Number [facility] [place] [address] * POCT Glucose (08/07/2019 1:55 PM EDT) Glucose, POC 178 65 - 199 mg/dL [facility] Comment: Supplemental ranges: <140 mg/dL before meals <180 mg/dL all other times of the day Blood specimen (specimen) 08/07/2019 1:55 PM EDT 08/07/2019 1:55 PM EDT Tariq Guerrero MD POINT OF CARE TEST O SAEID [facility] [place] [address] * CK (08/07/2019 12:05 PM EDT) Creatine Kinase 133 0 - 200 unit/L [facility] Blood specimen (specimen) 08/07/2019 12:05 PM EDT 08/07/2019 12:20 PM EDT Narrative Resulting Agency Comment Spec In Lab Tariq Guerrero MD CHEMISTRY ORDERABLES Performing Organization Address [facility] Co de Phone Number [facility] [place] [address] * (ABNORMAL) POCT Glucose (08/07/2019 11:20 AM EDT) Glucose, POC 309(H) 65 - 199 mg/dL [facility] Comment: Supplemental ranges: <140 mg/dL before meals <180 mg/dL all other times of the day Blood specimen (specimen) 08/07/2019 11:20 AM EDT 08/07/2019 11:20 AM EDT Tariq Guerrero MD POINT OF CARE TEST O RDERABLES Performing Organization Address [facility] Co de Phone Number [facility] [place] [address] * EKG 12 Lead (08/07/2019 8:57 AM EDT) Ventricular rate 75 BPM MUSE SYSTEM Atrial Rate 75 BPM MUSE SYSTEM P-R Interval 176 ms MUSE SYSTEM QRS Duration 94 ms MUSE SYSTEM Q-T Interval 390 ms MUSE SYSTEM QTC Calculated (Bezet) 435 ms MUSE SYSTEM Calculated P [place] 67 degrees MUSE SYSTEM Calculated R [place] 47 degrees MUSE SYSTEM Calculated T [place] -5 degrees MUSE SYSTEM INTERPRETATION Normal sinus rhythm T wave abnormality, consider inferior ischemia Abnormal ECG When compared with ECG of 06-AUG-2019 20:18, (unconfirmed) No significant change was found Confirmed by MD Yaima, Timothy Collins ([id number]) on 08/07/2019 5:14:03 PM MUSE SYSTEM 08/07/2019 8:57 AM EDT 08/07/2019 5:14 PM EDT Tiffanie Espino MD ECG ORDERABLES Performing Organization Address [facility] Co de Phone Number MUSE SYSTEM * POCT Glucose (08/07/2019 7:23 AM EDT) Glucose, POC 160 65 - 199 mg/dL [facility] Comment: Supplemental ranges: <140 mg/dL before meals <180 mg/dL all other times of the day Blood specimen (specimen) 08/07/2019 7:23 AM EDT 08/07/2019 7:23 AM EDT Tariq Guerrero MD POINT OF CARE TEST O RDERABLES Performing Organization Address [facility] Co de Phone Number [facility] [place] [address] * CK (08/07/2019 5:53 AM EDT) Creatine Kinase 168 0 - 200 unit/L [facility] Blood specimen (specimen) Venous Draw / Unknown 08/07/2019 5:53 AM EDT 08/07/2019 6:07 AM EDT Narrative Resulting Agency Comment Spec In Lab Philip Johnson MD CHEMISTRY ORDERABLES Performing Organization Address [facility] Co de Phone Number [facility] [place] [address] * (ABNORMAL) Troponin (08/07/2019 5:53 AM EDT) Troponin-T 0.50(H) 0.00 - 0.00 ng/mL [facility] Comment: The 99th percentile for Troponin T is less than 0.01 ng/mL, any detectable cTnT concentration using this assay should be considered elevated. According to the third universal definition of myocardial infarction the following criteria with a clinical presentation consistent with acute myocardial ischemia meets the diagnosis for a myocardial infarction ([place]). Detection of a rise and/or fall of cTnT, with at least one value greater than the 99th percentile (> or = 0.01) and with at least one of the following ?? Symptoms of ischemia ?? New or presumed new significant SP-dsiuwjq-N wave (ST-T) changes or new left bundle branch block (LBBB) ?? Development of pathologic Q waves in the ECG ?? Imaging evidence of new loss of viable myocardium or new regional wall motion abnormality ?? Identification of an intracoronary thrombus by angiography or autopsy Samples for cTnT testing should be obtained serially upon first assessment and again 3 to 6 hours later. If the clinical suspicion is high and previous samples have been negative an additional sample may be indicated. Reference: Third Sunman Definition of Myocardial Infarction. Journal of the [place] College [employer] 2012;60:1581-98 Blood specimen (specimen) 08/07/2019 5:53 AM EDT 08/07/2019 5:59 AM EDT Narrative Resulting Agency Comment Spec In Lab Tariq Guerrero MD CHEMISTRY ORDERABLES [facility] [place] [address] * Differential, Automated (08/07/2019 5:53 AM EDT) Neutrophil % 59.8 % [facility] Neutrophil Absolute 4.63 1.70 - 6.10 x10(3)/[facility] Lymph % 24.9 % [facility] Lymphocytes Abs 1.9 0.9 - 3.2 x10(3)/[facility] Monocyte % 8.5 % [facility] Monocyte Abs 0.7 0.3 - 0.9 x10(3)/[facility] Eos % 5.8 % [facility] Eosinophils Abs 0.4 0.0 - 0.4 x10(3)/[facility] Basophil % 0.5 % [facility] Baso Absolute 0.0 0.0 - 0.1 x10(3)/[facility] Immature Gran % 0.50 % [facility] Comment: Immature granulocytes(IG's)percentage and absolute count will include metamyelocytes, myelocytes, and promyelocytes. Blood smears from CBCs yielding IG's will be scanned manually for concordance. If this scan disagrees with the automated IG or if promyelocytes are noted, a manual differential will be performed. Immature Gran Absolute 0.04 0.00 - 0.04 x10(3)/[facility] Blood specimen (specimen) 08/07/2019 5:53 AM EDT 08/07/2019 5:59 AM EDT Narrative Resulting Agency Comment Spec In Lab Lovely Moise MD HEMATOLOGY ORDERABLE S [facility] [place] [address] * Hemogram (08/07/2019 5:53 AM EDT) White Blood Cell 7.8 4.0 - 9.5 x10(3)/[facility] Red Blood Cell 4.71 4.58 - 5.54 x10(6)/[facility] Hemoglobin 14.5 13.7 - 16.5 gm/dL [facility] Hematocrit 43.0 40.5 - 48.5 % [facility] Mean Cell Volume 91.3 82.9 - 93.1 [facility] Mean Cell Hemoglobin 30.8 27.5 - 32.1 pg [facility] Mean Cell Hemoglobin Concentration 33.7 32.0 - 35.7 gm/dL [facility] Platelet 181 145 - 357 x10(3)/[facility] RDW Standard Deviation 44.3 36.0 - 45.0 [facility] RDW coefficient of variation 13.1 11.4 - 13.8 % [facility] Mean Platelet Volume 9.6 7.6 - 12.9 [facility] NRBC% auto 0.0 % [facility] NRBC Absolute 0.000 0.000 - 0.000 x10(3)/[facility] Blood specimen (specimen) 08/07/2019 5:53 AM EDT 08/07/2019 5:59 AM EDT Narrative Resulting Agency Comment Spec In Lab Lovely Moise MD HEMATOLOGY ORDERABLE S [facility] [place] [address] * Magnesium (08/07/2019 5:53 AM EDT) Magnesium 0.86 0.69 - 1.07 mmol/L [facility] Blood specimen (specimen) 08/07/2019 5:53 AM EDT 08/07/2019 5:59 AM EDT Narrative Resulting Agency Comment Spec In Lab Tariq Guerrero MD CHEMISTRY ORDERABLES [facility] [place] [address] * (ABNORMAL) BMP w/fasting Glucose (08/07/2019 5:53 AM EDT) Glucose Fasting 152(H) 65 - 99 mg/dL [facility] Comment: ?Fasting* Glucose Interpretive Criteria [...] of Diabetes Mellitus, Position Statement from the [place] [employer]. ??Diabetes Care, Volume 33, Supplement 1, Mar 2009 Blood Urea Nitrogen 14 10 - 20 mg/dL [facility] Creatinine 1.43 0.80 - 1.50 mg/dL [facility] Sodium 141 135 - 145 mmol/L [facility] Potassium 4.1 3.5 - 5.0 mmol/L [facility] Comment: Please note: ??Patients with WBC >100,000 may have falsely elevated Potassium levels. ??For accurate Potassium quantification in these patients send serum separator tube (gold top) for subsequent determinations. ??Contact the Clinical Chemistry Laboratory if there are any questions. Chloride 100 98 - 107 mmol/L [facility] Carbon Dioxide 30 22 - 31 mmol/L [facility] Anion Gap 11 5 - 15 mmol/L [facility] Calcium 8.9 8.5 - 10.5 mg/dL [facility] Est Glomerular Filtration Rate 56(L) >=60 mL/min/1. 73 m?? [facility] Comment: The eGFR was calculated using the CKD-EPI equation. As with all creatinine based estimates of kidney function, eGFR values calculated with the CKD-EPI equation are not accurate in patients with acute kidney failure, extremes of body mass or the acutely ill. http://[employer]/[facility] CITYnkf eGFR 65 >=60 mL/min/1. 73 m?? [facility] Comment: The eGFR was calculated using the CKD-EPI equation. As with all creatinine based estimates of kidney function, eGFR values calculated with the CKD-EPI equation are not accurate in patients with acute kidney failure, extremes of body mass or the acutely ill. http://[employer]/DHnkf Blood specimen (specimen) 08/07/2019 5:53 AM EDT 08/07/2019 5:59 AM EDT Narrative Resulting Agency Comment Spec In Lab Tariq Guerrero MD CHEMISTRY ORDERABLES [facility] [place] [address] * POCT Glucose (08/07/2019 4:16 AM EDT) Glucose, POC 120 65 - 199 mg/dL [facility] Comment: Supplemental ranges: <140 mg/dL before meals <180 mg/dL all other times of the day Blood specimen (specimen) 08/07/2019 4:16 AM EDT 08/07/2019 4:16 AM EDT Tariq Guerrero MD POINT OF CARE TEST O RDERABLES Performing Organization Address City/[facility]/ZIP Co de Phone Number [facility] [place] [address] * (ABNORMAL) CK (08/07/2019 12:28 AM EDT) Creatine Kinase 220(H) 0 - 200 unit/L [facility] Blood specimen (specimen) 08/07/2019 12:28 AM EDT 08/07/2019 12:37 AM EDT Narrative Resulting Agency Comment Spec In Lab Tariq Guerrero MD CHEMISTRY ORDERABLES Performing Organization Address [facility] Co de Phone Number [facility] [place] [address] * (ABNORMAL) Troponin (08/07/2019 12:28 AM EDT) Troponin-T 0.62(H) 0.00 - 0.00 ng/mL [facility] Comment: The 99th percentile for Troponin T is less than 0.01 ng/mL, any detectable cTnT concentration using this assay should be considered elevated. According to the third universal definition of myocardial infarction the following criteria with a clinical presentation consistent with acute myocardial ischemia meets the diagnosis for a myocardial infarction ([place]). Detection of a rise and/or fall of cTnT, with at least one value greater than the 99th percentile (> or = 0.01) and with at least one of the following ?? Symptoms of ischemia ?? New or presumed new significant PC-htcqqfh-G wave (ST-T) changes or new left bundle branch block (LBBB) ?? Development of pathologic Q waves in the ECG ?? Imaging evidence of new loss of viable myocardium or new regional wall motion abnormality ?? Identification of an intracoronary thrombus by angiography or autopsy Samples for cTnT testing should be obtained serially upon first assessment and again 3 to 6 hours later. If the clinical suspicion is high and previous samples have been negative an additional sample may be indicated. Reference: Third Sunman Definition of Myocardial Infarction. Journal of the [place] College [employer] 2012;60:1581-98 Blood specimen (specimen) 08/07/2019 12:28 AM EDT 08/07/2019 12:37 AM EDT Narrative Resulting Agency Comment Spec In Lab Tariq Guerrero MD CHEMISTRY ORDERABLES Performing Organization Address [facility] Co de Phone Number [facility] [place] [address] * (ABNORMAL) POCT Glucose (08/06/2019 11:26 PM EDT) Glucose, POC 216(H) 65 - 199 mg/dL [facility] Comment: Supplemental ranges: <140 mg/dL before meals <180 mg/dL all other times of the day Blood specimen (specimen) 08/06/2019 11:26 PM EDT 08/06/2019 11:26 PM EDT Tariq Guerrero MD POINT OF CARE TEST O RDERABLES Performing Organization Address [facility] Co de Phone Number [facility] [place] [address] * EKG 12 Lead (08/06/2019 8:18 PM EDT) Ventricular rate 81 BPM MUSE SYSTEM Atrial Rate 81 BPM MUSE SYSTEM P-R Interval 178 ms MUSE SYSTEM QRS Duration 96 ms MUSE SYSTEM Q-T Interval 368 ms MUSE SYSTEM QTC Calculated (Bezet) 427 ms MUSE SYSTEM Calculated P [place] 64 degrees MUSE SYSTEM Calculated R [place] 52 degrees MUSE SYSTEM Calculated T [place] 3 degrees MUSE SYSTEM INTERPRETATION Normal sinus rhythm Normal ECG When compared with ECG of 06-AUG-2019 06:13, (unconfirmed) No significant change was found Confirmed by MD Yaima, Timothy Collins ([id number]) on 08/07/2019 4:51:03 PM MUSE SYSTEM 08/06/2019 8:18 PM EDT 08/07/2019 4:51 PM EDT Tariq Guerrero MD ECG ORDERABLES Performing Organization Address [facility] Co de Phone Number MUSE SYSTEM * POCT Glucose (08/06/2019 7:59 PM EDT) Glucose, POC 193 65 - 199 mg/dL [facility] Comment: Supplemental ranges: <140 mg/dL before meals <180 mg/dL all other times of the day Blood specimen (specimen) 08/06/2019 7:59 PM EDT 08/06/2019 7:59 PM EDT Tariq Guerrero MD POINT OF CARE TEST O RDERABLES Performing Organization Address [facility] Co de Phone Number [facility] [place] [address] * (ABNORMAL) CK (08/06/2019 6:13 PM EDT) Creatine Kinase 301(H) 0 - 200 unit/L [facility] Blood specimen (specimen) 08/06/2019 6:13 PM EDT 08/06/2019 7:04 PM EDT Narrative Resulting Agency Comment Spec In Lab Tariq Guerrero MD CHEMISTRY ORDERABLES Performing Organization Address [facility] de Phone Number [facility] [place] [place] [address] * (ABNORMAL) Troponin (08/06/2019 6:13 PM EDT) Troponin-T 0.84(H) 0.00 - 0.00 ng/mL [facility] Comment: The 99th percentile for Troponin T is less than 0.01 ng/mL, any detectable cTnT concentration using this assay should be considered elevated. According to the third universal definition of myocardial infarction the following criteria with a clinical presentation consistent with acute myocardial ischemia meets the diagnosis for a myocardial infarction ([place]). Detection of a rise and/or fall of cTnT, with at least one value greater than the 99th percentile (> or = 0.01) and with at least one of the following ?? Symptoms of ischemia ?? New or presumed new significant CA-tsefngx-P wave (ST-T) changes or new left bundle branch block (LBBB) ?? Development of pathologic Q waves in the ECG ?? Imaging evidence of new loss of viable myocardium or new regional wall motion abnormality ?? Identification of an intracoronary thrombus by angiography or autopsy Samples for cTnT testing should be obtained serially upon first assessment and again 3 to 6 hours later. If the clinical suspicion is high and previous samples have been negative an additional sample may be indicated. Reference: Third Sunman Definition of Myocardial Infarction. Journal of the [place] [employer] 2012;60:1581-98 Blood specimen (specimen) 08/06/2019 6:13 PM EDT 08/06/2019 7:04 PM EDT Narrative Resulting Agency Comment Spec In Lab Tariq Guerrero MD CHEMISTRY ORDERABLES Performing Organization Address City/[facility]/ZIP Co de Phone Number [facility] [place] [place] [address] * POCT Glucose (08/06/2019 4:18 PM EDT) Glucose, POC 105 65 - 199 mg/dL [facility] Comment: Supplemental ranges: <140 mg/dL before meals <180 mg/dL all other times of the day Blood specimen (specimen) 08/06/2019 4:18 PM EDT 08/06/2019 4:18 PM EDT Tariq Guerrero MD POINT OF CARE TEST O RDERABLES Performing Organization Address [facility] Co de Phone Number [facility] [place] [address] * Magnesium (08/06/2019 2:06 PM EDT) Magnesium 0.82 0.69 - 1.07 mmol/L [facility] Blood specimen (specimen) 08/06/2019 2:06 PM EDT 08/06/2019 2:18 PM EDT Narrative Resulting Agency Comment Spec In Lab Tariq Guerrero MD CHEMISTRY ORDERABLES Performing Organization Address [facility] Co de Phone Number [facility] [place] [address] * Basic Metabolic Panel (non-fasting) (08/06/2019 2:06 PM EDT) Glucose 108 65 - 199 mg/dL [facility] Comment:Diabetes: >=200 mg/d L plus symptoms Blood Urea Nitrogen 12 10 - 20 mg/dL [facility] Creatinine 1.23 0.80 - 1.50 mg/dL [facility] Sodium 140 135 - 145 mmol/L [facility] Potassium 4.4 3.5 - 5.0 mmol/L [facility] Comment: Please note: ??Patients with WBC >100,000 may have falsely elevated Potassium levels. ??For accurate Potassium quantification in these patients send serum separator tube (gold top) for subsequent determinations. ??Contact the Clinical Chemistry Laboratory if there are any questions. Chloride 101 98 - 107 mmol/L [facility] Carbon Dioxide 26 22 - 31 mmol/L [facility] Anion Gap 13 5 - 15 mmol/L [facility] Calcium 9.3 8.5 - 10.5 mg/dL [facility] Est Glomerular Filtration Rate 67 >=60 mL/min/1. 73 m?? [facility] Comment: The eGFR was calculated using the CKD-EPI equation. As with all creatinine based estimates of kidney function, eGFR values calculated with the CKD-EPI equation are not accurate in patients with acute kidney failure, extremes of body mass or the acutely ill. http://Learning [employer]/DHMCnkf eGFR 78 >=60 mL/min/1. 73 m?? [facility] Comment: The eGFR was calculated using the CKD-EPI equation. As with all creatinine based estimates of kidney function, eGFR values calculated with the CKD-EPI equation are not accurate in patients with acute kidney failure, extremes of body mass or the acutely ill. http://[email or web address] Blood specimen (specimen) 08/06/2019 2:06 PM EDT 08/06/2019 2:18 PM EDT Narrative Resulting Agency Comment Spec In Lab Tariq Guerrero MD CHEMISTRY ORDERABLES [facility] [place] [address] * (ABNORMAL) CK (08/06/2019 12:05 PM EDT) Creatine Kinase 344(H) 0 - 200 unit/L [facility] Blood specimen (specimen) 08/06/2019 12:05 PM EDT 08/06/2019 12:15 PM EDT Narrative Resulting Agency Comment Spec In Lab Tariq Guerrero MD CHEMISTRY ORDERABLES [facility] [place] [address] * (ABNORMAL) Troponin (08/06/2019 12:05 PM EDT) Pathologist [facility] Troponin-T 0.74(H) 0.00 - 0.00 ng/mL [facility] Comment: The 99th percentile for Troponin T is less than 0.01 ng/mL, any detectable cTnT concentration using this assay should be considered elevated. According to the third universal definition of myocardial infarction the following criteria with a clinical presentation consistent with acute myocardial ischemia meets the diagnosis for a myocardial infarction ([place]). Detection of a rise and/or fall of cTnT, with at least one value greater than the 99th percentile (> or = 0.01) and with at least one of the following ?? Symptoms of ischemia ?? New or presumed new significant BZ-qqywywk-H wave (ST-T) changes or new left bundle branch block (LBBB) ?? Development of pathologic Q waves in the ECG ?? Imaging evidence of new loss of viable myocardium or new regional wall motion abnormality ?? Identification of an intracoronary thrombus by angiography or autopsy Samples for cTnT testing should be obtained serially upon first assessment and again 3 to 6 hours later. If the clinical suspicion is high and previous samples have been negative an additional sample may be indicated. Reference: Third Sunman Definition of Myocardial Infarction. Journal of the [place] College [employer] 2012;60:1581-98 Blood specimen (specimen) 08/06/2019 12:05 PM EDT 08/06/2019 12:15 PM EDT Narrative Resulting Agency Comment Spec In Lab Tariq Guerrero MD CHEMISTRY ORDERABLES Performing Organization Address [facility] Co de Phone Number [facility] [place] [address] * POCT Glucose (08/06/2019 11:13 AM EDT) Glucose, POC 106 65 - 199 mg/dL [facility] Comment: Supplemental ranges: <140 mg/dL before meals <180 mg/dL all other times of the day Blood specimen (specimen) 08/06/2019 11:13 AM EDT 08/06/2019 11:13 AM EDT Tariq Guerrero MD POINT OF CARE TEST O RDERABLES Performing Organization Address [facility] Co de Phone Number [facility] [place] [address] * ECHO COMPLETE (08/06/2019 9:20 AM EDT) EF 64 HEARTLAB SYSTEM Anatomical Region Laterality Modality Other 08/06/2019 Narrative 08/06/2019 9:40 AM EDT Procedure: ?Transthoracic Echocardiogram Patient: ?SHENG STAPLES S ?(Age): 1965(53y) Med Rec#: ? [id number] ?Sex: ?M ? Site Loc: ? [facility] [place] ?Ht / Wt: ??183(cm)/120(kg) Pt. Loc: ?Adult Floor ? BSA: ?2.4 Study Date: ?? 08/06/2019 ?Pt. Type: Inpatient Tape: ? Referring: EARLE Reading: Jack Lucas ([id number]) Eap Specialist: Peter Beaver RDCS, FASE Interpreting Fellow: Tiffanie Hernandez ([id number]) Diagnosis: *ST elevation (STEMI) myocardial infarction of unspecified site (I21.3) Rhythm: ? Sinus BP: ? 108/76 HR: ? 74 SUMMARY: 1. The left ventricular chamber size, wall [...] from 07/14/06, there is no significant change. Findings ? : Study Quality: ? Adequate Left Ventricle: ? The left ventricular chamber size is normal. ?Borderline concentric left ventricular hypertrophy is observed. ?There is no evidence of LVOT obstruction. ?No ventricular septal defect is visualized. ?There is normal global left ventricular systolic function. ?The quantitative left ventricular ejection fraction by biplane Hi's method is 64%. ?There are no left ventricular segmental wall motion abnormalities. ?Doppler assessment is consistent with normal left sided filling pressure. Left Atrium: ? The left atrium is normal in size. 31 ml/m1. ?No atrial septal defect is visualized. Right Ventricle: ? Right ventricular chamber size, wall thickness, and systolic function are within normal limits. ?The estimated pulmonary artery systolic pressure is 25 mmHg. ?The estimated right atrial pressure is 3 mmHg. Right Atrium: ? The right atrium appears normal. Aortic Valve: ? The aortic valve is tricuspid. ?There is no evidence of aortic valve stenosis. ?There is a trace of aortic regurgitation present. Mitral Valve: ? The mitral valve appears normal in structure and function. ?There is no evidence of mitral valve leaflet prolapse. ?There is trace mitral regurgitation present. Tricuspid Valve: ? The tricuspid valve appears normal in structure and function. ?There is trace tricuspid regurgitation present. Pulmonic Valve: ? The pulmonic valve appears normal in structure and function. Pericardium: ? The pericardium appears normal and there is no evidence of a pericardial effusion. Aorta: ? The aortic root is normal in size. ?The ascending aorta is normal in size. ?There is no evidence of coarctation of the aorta. Pulmonary Artery: ? The main pulmonary artery appears normal. Venous: ? The inferior vena cava appears normal in size. ?There is a greater than 50% respiratory change in the inferior vena cava dimension. Misc: ? See remainder of report for additional findings. ?Two-dimensional echo, spectral Doppler and color Doppler performed. Chambers 2D ?Value [...] ? LV ESV SP 4CH (MOD) 35.48 ?ml ? LV ESV SP 2CH (MOD) 34.73 ?ml ? LV EDV BP ? 98.95 ?ml [...] Vmax ?0.88 ? m/sec ? MV deceleration [id number] ? msec ? MV A-wave Vmax ?0.85 ? m/sec [...] ? Mid-Inferior ?Normal ? Mid-Inferoseptal ?Normal ? [place]-Septal ? Normal ? [place]-Anterior ? Normal ? [place]-Lateral ?Normal ? [place]-Inferior ? Normal ? [place]-Tip ?Normal ? This report has been electronically signed by: Jack Lucas MD ? 08/06/2019 09:39:30 Images reviewed and interpretation verified [facility] Procedure Note Jack Lucas MD - 08/06/2019 Procedure: Transthoracic Echocardiogram Patient: SHENG Oreilly DOB(Age): 1965(53y) Med Rec#: [id number] Sex: M Site Loc: [facility] [place] Ht / Wt: 183(cm)/120(kg) Pt. Loc: Adult Floor BSA: 2.4 Study Date: 08/06/2019 Pt. Type: Inpatient Tape: Referring: EARLE Reading: Jack Lucas ([id number]) Eap Specialist: Peter Beaver RDCS, LILY Interpreting Fellow: Tiffanie Hernandez ([id number]) Diagnosis: *ST elevation (STEMI) myocardial infarction of unspecified site (I21.3) Rhythm: Sinus BP: 108/76 HR: 74 SUMMARY: 1. The left ventricular chamber size, wall [...] from 07/14/06, there is no significant change. Findings : Study Quality: Adequate Left Ventricle: The left ventricular chamber size is normal. Borderline concentric left ventricular hypertrophy is observed. There is no evidence of LVOT obstruction. No ventricular septal defect is visualized. There is normal global left ventricular systolic function. The quantitative left ventricular ejection fraction by biplane Hi's method is 64%. There are no left ventricular segmental wall motion abnormalities. Doppler assessment is consistent with normal left sided filling pressure. Left Atrium: The left atrium is normal in size. 31 ml/m1. No atrial septal defect is visualized. Right Ventricle: Right ventricular chamber size, wall thickness, and systolic function are within normal limits. The estimated pulmonary artery systolic pressure is 25 mmHg. The estimated right atrial pressure is 3 mmHg. Right Atrium: The right atrium appears normal. Aortic Valve: The aortic valve is tricuspid. There is no evidence of aortic valve stenosis. There is a trace of aortic regurgitation present. Mitral Valve: The mitral valve appears normal in structure and function. There is no evidence of mitral valve leaflet prolapse. There is trace mitral regurgitation present. Tricuspid Valve: The tricuspid valve appears normal in structure and function. There is trace tricuspid regurgitation present. Pulmonic Valve: The pulmonic valve appears normal in structure and function. Pericardium: The pericardium appears normal and there is no evidence of a pericardial effusion. Aorta: The aortic root is normal in size. The ascending aorta is normal in size. There is no evidence of coarctation of the aorta. Pulmonary Artery: The main pulmonary artery appears normal. Venous: The inferior vena cava appears normal in size. There is a greater than 50% respiratory change in the inferior vena cava dimension. Misc: See remainder of report for additional findings. Two-dimensional echo, spectral Doppler and color [...] MV E-wave Vmax 0.88 m/sec MV deceleration qshc154.89 msec MV A-wave Vmax 0.85 m/sec MV [...] Normal Mid-Posterolateral Normal Mid-Inferior Normal Mid-Inferoseptal Normal [place]-Septal Normal [place]-Anterior Normal [place]-Lateral Normal [place]-Inferior Normal [place]-Tip Normal This report has been electronically signed by: Jack Lucas MD 08/06/2019 09:39:30 Images reviewed and interpretation verified [facility] Tiffanie Espino MD ECHO ORDERABLES * POCT Glucose (08/06/2019 7:18 AM EDT) Glucose, POC 170 65 - 199 mg/dL [facility] Comment: Supplemental ranges: <140 mg/dL before meals <180 mg/dL all other times of the day Blood specimen (specimen) 08/06/2019 7:18 AM EDT 08/06/2019 7:18 AM EDT Tariq Guerrero MD POINT OF CARE TEST O RDERABLES [facility] [place] [id number] * XR Chest One View (08/06/2019 6:52 AM EDT) Anatomical Region Laterality Modality Chest N/A Digital Radiogra phy Impressions 08/06/2019 8:34 AM EDT Pulmonary vasculature is prominent with increased interstitial markings consistent with likely pulmonary edema. Pulmonary vascular indistinctness suggests edema. A diffuse infectious or inflammatory process cannot be excluded. No pneumothorax no pleural fluid. Thank you for letting us participate in the care of this patient. For questions regarding this report, please contact the number below. ? Narrative 08/06/2019 8:34 AM EDT EXAMINATION: XR CHEST ONE VIEW CLINICAL HISTORY: 53-year-old male s/p STEMI TECHNIQUE: 1 view of the chest COMPARISON: 08/06/2019 FINDINGS: Cardiac and mediastinal contour are similar to prior imaging. Lung volumes remain low. Central pulmonary vasculature is prominent and ill-defined. No focal airspace consolidation. Diffusely increased interstitial markings. Procedure Note Violeta Fortune MD - 08/06/2019 EXAMINATION: XR CHEST ONE VIEW CLINICAL HISTORY: 53-year-old male s/p STEMI TECHNIQUE: 1 view of the chest COMPARISON: 08/06/2019 FINDINGS: Cardiac and mediastinal contour are similar to prior imaging. Lungvolumes remain low. Central pulmonary vasculature is prominent and ill-defined. Nofocal airspace consolidation. Diffusely increased interstitial markings. IMPRESSION Pulmonary vasculature is prominent with increased interstitial markings consistent with likely pulmonary edema. Pulmonary vascularindistinctness suggests edema. A diffuse infectious or inflammatory process cannot beexcluded. No pneumothorax no pleural fluid. Thank you for letting us participate in the care of this patient. Forquestions regarding this report, please contact the number below. Tiffanie Espino MD IMG DX ORDERABLES * EKG 12 Lead (08/06/2019 6:13 AM EDT) Ventricular rate 80 BPM MUSE SYSTEM Atrial Rate 80 BPM MUSE SYSTEM P-R Interval 190 ms MUSE SYSTEM QRS Duration 90 ms MUSE SYSTEM Q-T Interval 384 ms MUSE SYSTEM QTC Calculated (Bezet) 442 ms MUSE SYSTEM Calculated P [place] 68 degrees MUSE SYSTEM Calculated R [place] 59 degrees MUSE SYSTEM Calculated T [place] 24 degrees MUSE SYSTEM INTERPRETATION Normal sinus rhythm Normal ECG When compared with ECG of 06-AUG-2019 02:05, (unconfirmed) No significant change was found I personally reviewed the tracing and edited the fellows interpretation Confirmed by fellow MD Dee, Jaylin Oviedo ([id number]) on 08/06/2019 1:18:49 PM Confirmed by MD Yaima, Timothy Collins ([id number]) on 08/07/2019 9:47:42 AM MUSE SYSTEM 08/06/2019 6:13 AM EDT 08/07/2019 9:47 AM EDT Tiffanie Espino MD ECG ORDERABLES MUSE SYSTEM * Sedimentation rate (08/06/2019 5:35 AM EDT) Sedimentation Rate Automated 8 2 - 37 mm/hr [facility] Comment: Effective February 20, 2019 new capillary photometric technology has resulted in a change in reference ranges. It is recommended that each ESR result be reviewed with its own age appropriate reference range. Blood specimen (specimen) Venous Draw / Unknown 08/06/2019 5:35 AM EDT 08/06/2019 5:41 AM EDT Narrative Resulting Agency Comment Spec In Lab Philip Johnson MD HEMATOLOGY ORDERABLE S Performing Organization Address [facility] Co de Phone Number [facility] [address] * CRP, acute inflammation (08/06/2019 5:35 AM EDT) C-Reactive Protein 4.3 <=4.9 mg/L [facility] Blood specimen (specimen) Venous Draw / Unknown 08/06/2019 5:35 AM EDT 08/06/2019 5:44 AM EDT Narrative Resulting Agency Comment Spec In Lab Philip Johnson MD CHEMISTRY ORDERABLES Performing Organization Address City/[facility] Co de Phone Number [facility] [address] * (ABNORMAL) Differential, Automated (08/06/2019 5:35 AM EDT) Neutrophil % 73.5 % [facility] Neutrophil Absolute 6.30(H) 1.70 - 6.10 x10(3)/ L [facility] Lymph % 16.2 % [facility] Lymphocytes Abs 1.4 0.9 - 3.2 x10(3)/ L [facility] Monocyte % 5.5 % [facility] Monocyte Abs 0.5 0.3 - 0.9 x10(3)/[facility] Eos % 3.6 % [facility] Eosinophils Abs 0.3 0.0 - 0.4 x10(3)/[facility] Basophil % 0.6 % [facility] Baso Absolute 0.0 0.0 - 0.1 x10(3)/[facility] Immature Gran % 0.60 % [facility] Comment: Immature granulocytes(IG's)percentage and absolute count will include metamyelocytes, myelocytes, and promyelocytes. Blood smears from CBCs yielding IG's will be scanned manually for concordance. If this scan disagrees with the automated IG or if promyelocytes are noted, a manual differential will be performed. Immature Gran Absolute 0.05(H) 0.00 - 0.04 x10(3)/[facility] Blood specimen (specimen) 08/06/2019 5:35 AM EDT 08/06/2019 5:41 AM EDT Narrative Resulting Agency Comment Spec In Lab Mendoza Richards MD HEMATOLOGY CASSI HU [facility] [address] * (ABNORMAL) Hemogram (08/06/2019 5:35 AM EDT) White Blood Cell 8.6 4.0 - 9.5 x10(3)/[facility] Red Blood Cell 4.33(L) 4.58 - 5.54 x10(6)/[facility] Hemoglobin 13.4(L) 13.7 - 16.5 gm/dL [facility] Hematocrit 40.6 40.5 - 48.5 % [facility] Mean Cell Volume 93.8(H) 82.9 - 93.1 fL [facility] Mean Cell Hemoglobin 30.9 27.5 - 32.1 pg [facility] Mean Cell Hemoglobin Concentration 33.0 32.0 - 35.7 gm/dL [facility] Platelet 192 145 - 357 x10(3)/mc L [facility] RDW Standard Deviation 45.2(H) 36.0 - 45.0 fL [facility] RDW coefficient of variation 13.2 11.4 - 13.8 % [facility] Mean Platelet Volume 9.5 7.6 - 12.9 fL [facility] NRBC% auto 0.0 % [facility] NRBC Absolute 0.000 0.000 - 0.000 x10(3)/mc L [facility] Blood specimen (specimen) 08/06/2019 5:35 AM EDT 08/06/2019 5:41 AM EDT Narrative Resulting Agency Comment Spec In Lab Mendoza Richards MD HEMATOLOGY CASSI HU [facility] [place] [address] * Lipid Panel (Reflex Direct LDL) (08/06/2019 5:35 AM EDT) Cholesterol, Total 89 mg/dL [facility] Comment: Lower Risk: <200 mg/dL Average Risk: 200-239 mg/dL Higher Risk: >kd=563 mg/dL Triglyceride 89 mg/dL [facility] Comment: Average Risk/Lower Risk: <150 mg/dL Borderline High Risk: 150-199 mg/dL High Risk: 200-499 mg/dL Very High Risk: >nz=556 mg/dL HDL Cholesterol 38 mg/dL [facility] Comment: Males: ?? Higher Risk: <40 mg/dL Females: ?? HIgher Risk: <50 mg/dL LDL Cholesterol 33 mg/dL [facility] Comment: Lowest Risk: <100 mg/dL Lower Risk: 100-129 mg/dL Borderline High Risk: 130-159 mg/dL High Risk: 160-189 mg/dL Very High Risk: >tp=986 mg/dL Cholesterol/HDL Ratio 2.3 ratio [facility] Lipid Interpretation See Note [facility] Comment: Lipid management should be guided by a patient? s ASCVD risk, goals and preferences. ACC/AHA Guidelines recommend high intensity statin if clinical ASCVD or LDL greater than or equal to 190 mg/dL. http://K[employer].com/YSC-NIG-Nrowlbiny Adults aged 40-75 with LDL 70-189 mg/dL should have their 10 year ASCVD risk estimated with the ACC/AHA ASCVD risk sales service representative http://tools.acc.org/SJOLV-Crxe-Zgnwliqei/ Statin should be discussed if risk greater than or equal to 7.5% in non-diabetics. With diabetes, moderate intensity statin is recommended if risk less than 7.5%, high intensity if risk greater than or equal to 7.5%. Annual lipid monitoring on statins is not necessary. Evaluate secondary causes of Triglycerides greater than 500 mg/dL or LDL greater than 190 mg/dL: See table 6 of ACC/AHA Guideline. Lifestyle modification is a critical component of ASCVD risk reduction. Blood specimen (specimen) 08/06/2019 5:35 AM EDT 08/06/2019 5:41 AM EDT Narrative Resulting Agency Comment Spec In Lab Tiffanie Espino MD CHEMISTRY ORDERABLES [facility] [place] [address] * (ABNORMAL) Hemoglobin A1c (08/06/2019 5:35 AM EDT) Hemoglobin A1c 6.3(H) 4.3 - 5.6 % [facility] Comment: Reference Range: 4.3 - [...] Mellitus, Diabetes Care 2013; 36: Suppl. 1, N94-14 Estimated Average Glucose 135 mg/dL [facility] Comment: eAG equivalents for HbA1c [...] into estimated average glucose values. ??Diabetes Care 2008:31(8):3930-7087. Blood specimen (specimen) 08/06/2019 5:35 AM EDT 08/06/2019 5:41 AM EDT Narrative Resulting Agency Comment Spec In Lab Tiffanie Espino MD CHEMISTRY ORDERABLES [facility] [address] * (ABNORMAL) Troponin (08/06/2019 5:35 AM EDT) Troponin-T 0.31(H) 0.00 - 0.00 ng/mL [facility] Comment: The 99th percentile for Troponin T is less than 0.01 ng/mL, any detectable cTnT concentration using this assay should be considered elevated. According to the third universal definition of myocardial infarction the following criteria with a clinical presentation consistent with acute myocardial ischemia meets the diagnosis for a myocardial infarction ([place]). Detection of a rise and/or fall of cTnT, with at least one value greater than the 99th percentile (> or = 0.01) and with at least one of the following ?? Symptoms of ischemia ?? New or presumed new significant QN-kjgexjb-U wave (ST-T) changes or new left bundle branch block (LBBB) ?? Development of pathologic Q waves in the ECG ?? Imaging evidence of new loss of viable myocardium or new regional wall motion abnormality ?? Identification of an intracoronary thrombus by angiography or autopsy Samples for cTnT testing should be obtained serially upon first assessment and again 3 to 6 hours later. If the clinical suspicion is high and previous samples have been negative an additional sample may be indicated. Reference: Third [place]man Definition of Myocardial Infarction. Journal of the [place] [employer] 2012;60:1581-98 Blood specimen (specimen) 08/06/2019 5:35 AM EDT 08/06/2019 5:41 AM EDT Narrative Resulting Agency Comment Spec In Lab Tiffanie Espino MD CHEMISTRY ORDERABLES Performing Organization Address City/State/[facility] Co de Phone Number [facility] [place] [address] * (ABNORMAL) Basic Metabolic Panel (non-fasting) (08/06/2019 5:35 AM EDT) Glucose 250(H) 65 - 199 mg/dL [facility] Comment:Diabetes: >=200 mg/d L plus symptoms Blood Urea Nitrogen 12 10 - 20 mg/dL [facility] Creatinine 1.26 0.80 - 1.50 mg/dL [facility] Sodium 138 135 - 145 mmol/L [facility] Potassium 4.5 3.5 - 5.0 mmol/L [facility] Comment: Please note: ??Patients with WBC >100,000 may have falsely elevated Potassium levels. ??For accurate Potassium quantification in these patients send serum separator tube (gold top) for subsequent determinations. ??Contact the Clinical Chemistry Laboratory if there are any questions. Chloride 103 98 - 107 mmol/L [facility] Carbon Dioxide 24 22 - 31 mmol/L [facility] Anion Gap 11 5 - 15 mmol/L [facility] Calcium 8.6 8.5 - 10.5 mg/dL [facility] Est Glomerular Filtration Rate 65 >=60 mL/min/1. 73 m?? [facility] Comment: The eGFR was calculated using the CKD-EPI equation. As with all creatinine based estimates of kidney function, eGFR values calculated with the CKD-EPI equation are not accurate in patients with acute kidney failure, extremes of body mass or the acutely ill. http://[employer]/[facility] eGFR 76 >=60 mL/min/1. 73 m?? [facility] Comment: The eGFR was calculated using the CKD-EPI equation. As with all creatinine based estimates of kidney function, eGFR values calculated with the CKD-EPI equation are not accurate in patients with acute kidney failure, extremes of body mass or the acutely ill. http://[employer]/[facility] Blood specimen (specimen) 08/06/2019 5:35 AM EDT 08/06/2019 5:41 AM EDT Narrative Resulting Agency Comment Spec In Lab Tiffanie Espino MD CHEMISTRY ORDERABLES [facility] [place] [address] * (ABNORMAL) POCT Glucose (08/06/2019 5:32 AM EDT) Glucose, POC 215(H) 65 - 199 mg/dL [facility] Comment: Supplemental ranges: <140 mg/dL before meals <180 mg/dL all other times of the day Blood specimen (specimen) 08/06/2019 5:32 AM EDT 08/06/2019 5:32 AM EDT Tariq Guerrero MD POINT OF CARE TEST O RDERABLES Performing Organization Address [facility]/State/[facility] Co de Phone Number [facility] [place] [address] * CARDIAC CATHETERIZATION (08/06/2019 4:38 AM EDT) Anatomical Region Laterality Modality Other Narrative 08/09/2019 2:54 PM EDT ?[facility] ? Cardiac Catheterization/Intervention Report ? Patient Name: Sheng, Samy ? Procedure Date: 08/06/2019 ? A #: [id number] ? Primary Physician: Coylewright, Jung J ? Case #: [id number] ? File Name: [id number] ? Catheterization Order Number: [id number] ? [facility] ? Final Report [place], [place] ? Patient Name: ? Samy Patricio ? ID#: ?[id number] ? : ?1965 ? Procedure Date: ? August 06, 2019 ? Case #: ? [id number] ? Room: ? 6 ? Case Physician: ? Jung Merino M.D. ?Start: ?02:39 ?Fellow: ? Jose Ellison M.D. ? Admission: ??08/06/2019 ? Discharge: ??08/07/2019 ? Referring Physician: ??Sae Marr M.D. ? Procedures: ?* Coronary Angiography ?* Left Heart Catheterization ?* Coronary Ultrasound ?* Coronary Stent Insertion ? Pre Case Status: ?These procedures were performed on an emergent basis. ? History ?Samy Patricio is a 53 year old man. He has hypertension and a family ?history of coronary artery disease. The patient's smoking status is ?Current with Current - Every Day frequency, using cigarettes. Cigarette ?use is Heavy (>=10/day). He has hypercholesterolemia managed with lipid ?therapy. The patient has diabetes managed with oral medication. 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 The patient has a prior history of coronary ?artery disease. He is status post an acute ST elevation myocardial ?infarction. The patient had a remote coronary intervention procedure. ?Prior to the initiation of this procedure, the patient was designated as ?ASA Class IV. The CSHA clinical frailty scale is 4: Vulnerable. ? Diagnostic Tests: ?Electrocardiography: ? EKG was assessed by ECG. EKG was Abnormal. EKG showed ST Deviation ? >= 0.5 mm. ?Medications Prior to Procedure: ? Angiotensin Converting Enzyme Inhibitor, Aspirin, Long Acting ? Nitrate, Statin and Thrombolytic (any). ? Indications for Diagnostic Cath: ?The priority of the diagnostic procedure was Emergent. The indication for ?the labour market economist visit is ACS less than or equal to 24 hrs. Chest pain ?symptom assessment was: Typical Angina. This patient had cardiovascular ?instability due to acute heart failure and hemodynamic instability. ? Technique: ?A 6 SLFr sheath was inserted in the right radial artery utilizing the ?Seldinger technique. The left coronary artery was injected utilizing a ?5Fr TIG 4.0 catheter. A 5Fr TIG 4.0 catheter was used to inject the right ?coronary artery. Left ventricular pressure was performed with a 5Fr TIG ?4.0 catheter. Coronary stent insertion was performed and the equipment ?utilized will be described in the intervention summary section. 6,000 ?units of heparin were administered. A total of 200cc of Omnipaque were ?opened, 110cc of Omnipaque were administered and 90cc of Omnipaque were ?wasted. Radiation: Fluoro time was 11.6 minutes, dose area product was ?54,800 mGYcm2 and air kerma was 806 mGY. See the case log for additional ?details. ?The patient received the following medications prior to and during the ?procedure: ? Unfractionated Heparin and Clopidogrel. ? Hemodynamics: ?Left Heart Pressures ? Resting: ? Syst Diast ? EDP ?a ?v ? m ?Ao 92 ?62 ?75 ?LV ? 21 ?Comments: ??No gradient on LV > Ao pullback. ? Coronary Angiography: ?Dominance: Right ?Left Main ? There was mild diffuse (<=25% stenosis) disease of the entire vessel ? segment of the left main artery. ?Left Anterior Descending ? There was mild diffuse (<=25% stenosis) disease of the entire vessel ? segment of the left anterior descending artery (LAD). ??The mid ? segment of the LAD had a single discrete 30% stenosis. ?Left Circumflex ? There was mild diffuse (<=25% stenosis) disease of the entire vessel ? segment of the left circumflex artery (LCX). ??The proximal segment ? of the LCX had a single discrete 20% stenosis. ??There also was a 0% ? stenosis of the mid segment of the LCX. ??The previously placed stent ? is patent. ?Right Coronary Artery ? There was mild diffuse (<=25% stenosis) disease of the entire vessel ? segment of the right coronary artery (RCA). ??The ostial segment of ? the RCA had a calcified single discrete 95% stenosis. ??There also ? was a 30% calcified long segmental stenosis of the mid segment of ? the RCA. ??There was a 0% stenosis of the distal 1 segment of the ? RCA. ??The previously placed stent is patent. The distal 2 segment of ? the RCA had a long segmental 40% stenosis. ? Intravascular Imaging/Physiology: ?Intravascular Ultrasound was performed in the ostial RCA using a 6 Fr JR ?4 guiding catheter and a 3.1 Fr Refinity 42 MHz catheter using auto 1 ?mm/sec pullback. ??Imaging was successful. ??Image quality was good. ??The ?ostial RCA showed moderate diffuse atherosclerotic plaque with scattered ?two quadrant calcification. ?Additional Findings: IVUS performed using mechanical pullback of the mid ?RCA to the ostium of the vessel following stent deployment. Imaging ?revealed 2 quadrant calcification and underexpansion of the proximal ?stent. The stent appeared well apposed. Post dilation was subsequently ?performed. ? Indication for Intervention: ?Coronary intervention was indicated for primary therapy for an acute ?myocardial infarction. The priority for the procedure was Emergent. The ?NCDR indication for the procedure was STEMI (after successful lytics). ?STEMI onset was 08/06/2019 at 11:00 PM, estimated. Thrombolytics were ?administered on 08/06/2019 at 12:30 AM. ? Intervention Summary: ?Right Coronary Artery ? Ostial 95% ? Stent insertion was performed on the 95% stenosis in the ? ostial segment of the RCA. This was a de adonis lesion. ? According to the ACC/AHA classification system, this lesion ? was a type B2 high risk lesion. Primary prevention of ? restenosis was the indication for stent insertion. This was ? the culprit lesion. A guidewire was placed across this lesion. [...] ??(EDEN) was deployed with ? a maximum inflation pressure of 15 atmospheres. ??Following ? stent deployment, the lesion was dilated using a 2.50mm NC ? EUPHORA 12 MM balloon with a maximum inflation pressure of 20 ? atmospheres. ? The final outcome was defined as successful. There was no ? residual stenosis following this intervention. The final ENE ? flow was 3. ? Vascular Access: ?Vascular Access Management: ? Mechanical Compression of the right radial artery access site was ? performed. ? Dual Antiplatelet (DAPT) Recommendations: ?Drug eluting stent (EDEN) inserted. ?P2Y12 Loading dose Clopidgrel 300 mg PO given in lab. ?Recommended anti-platelet/anti-thrombotic regimen: ?Start aspirin 81 mg daily now and continue for indefinitely. ?Continue prasugrel 10 mg daily for 12 months then stop. ?These recommendations are made at the time of the intervention. Patient ?and provider preferences or a changing clinical situation may require ?modification of this regimen. Consult [facility] Interventional Cardiology for ?questions. ?This patient has a high DAPT score and may benefit from prolonged (12-30 ?months) dual antiplatelet therapy. If the patient has completed 12 months ?of DAPT without having a major bleeding or ischemic event and the patient ?is NOT on chronic anticoagulation. This should be used for guidance in ?the overall conversation about prolonged dual antiplatelet therapy and ?not as a recommendation for or against any medical treatment. Consult ?http://tools.acc.org/DAPTriskapp/#!/content/calculator/ or [facility] ?Interventional Cardiology for questions. ? Conclusions: ?* One vessel coronary artery disease (RCA) ?* Elevated left ventricular end diastolic pressure ?* Successful stent insertion of the ostial RCA lesion ?* See Dual Antiplatelet (DAPT) Recommendations above. ? Complications/Events: ?The patient had no complications during these procedures. ? Comments: ?Radial provided adequate support; did require sedation due to wrist ?discomfort at beginning of case, very mild spasm seen. ?Postdilation performed to high pressure. IVUS highlighted diffuse disease ?of RCA. ?The attending physician was present for the entire procedure. ?Dr. Jung Merino M.D. was present during the moderate sedation ?intraservice time as documented by the sedation nurse. ??Case time = 01:04. ?Dr. Jung Merino M.D. performed the coronary angiography, left ?heart catheterization, stent insertion-coronary and IVUS # coronary. ? Jung Merino, ? M.D. ? Electronically Signed by: Jung Merino M.D. ? Report Finalized: 08/09/2019 ??14:51 ? Report Last Ammended: 09/12/2019 ??15:41 ? Procedure Note Jung Merino MD - 09/12/2019 [facility] Cardiac Catheterization/Intervention Report Patient Name: Sheng Samy Procedure Date: 08/06/2019 A #: [id number] Primary Physician: Jung Merino Case #: [id number] File Name: [id number] Catheterization Order Number: [id number] [facility] FinalReport [place], [place] Patient Name: Samy Patricio ID#:[id number] :1965 Procedure Date: August 06, 2019 Case #: [id number] Room: 6 Case Physician: Jung Merino M.D. Start: 02:39 Fellow: Jose Ellison M.D. Admission:08/06/2019 Discharge:08/07/2019 Referring Physician: Sae Marr M.D. Procedures: * Coronary Angiography * Left Heart Catheterization * Coronary Ultrasound * Coronary Stent Insertion Pre Case Status: These procedures were performed on an emergent basis. History Samy Patricio is a 53 year old man. He has hypertension and afamily history of coronary artery disease. The patient's smoking status is Current with Current - Every Day frequency, using cigarettes.Cigarette use is Heavy (>=10/day). He has hypercholesterolemia managed withlipid therapy. The patient has diabetes managed with oral medication. Hehas sequelae from diabetes. The patient has a prior history of coronary artery disease. He is status post an acute ST elevation myocardial infarction. The patient had a remote coronary interventionprocedure. Prior to the initiation of this procedure, the patient wasdesignated as ASA Class IV. The [facility] clinical frailty scale is 4: Vulnerable. Diagnostic Tests: Electrocardiography: EKG was assessed by ECG. EKG was Abnormal. EKG showed STDeviation >= 0.5 mm. Medications Prior to Procedure: Angiotensin Converting Enzyme Inhibitor, Aspirin, Long Acting Nitrate, Statin and Thrombolytic (any). Indications for Diagnostic Cath: The priority of the diagnostic procedure was Emergent. Theindication for the labour market economist visit is ACS less than or equal to 24 hrs. Chest pain symptom assessment was: Typical Angina. This patient hadcardiovascular instability due to acute heart failure and hemodynamic instability. Technique: A 6 SLFr sheath was inserted in the right radial artery utilizingthe Seldinger technique. The left coronary artery was injected utilizinga 5Fr TIG 4.0 catheter. A 5Fr TIG 4.0 catheter was used to inject theright coronary artery. Left ventricular pressure was performed with a 5FrTIG 4.0 catheter. Coronary stent insertion was performed and theequipment utilized will be described in the intervention summary section.6,000 units of heparin were administered. A total of 200cc of Omnipaquewere opened, 110cc of Omnipaque were administered and 90cc of Omnipaquewere wasted. Radiation: Fluoro time was 11.6 minutes, dose area productwas 54,800 mGYcm2 and air kerma was 806 mGY. See the case log foradditional details. The patient received the following medications prior to and duringthe procedure: Unfractionated Heparin and Clopidogrel. Hemodynamics: Left Heart Pressures Resting: Syst Diast EDP a v m Ao 92 62 75 LV 21 Comments: No gradient on LV > Ao pullback. Coronary Angiography: Dominance: Right Left Main There was mild diffuse (<=25% stenosis) disease of the entirevessel segment of the left main artery. Left Anterior Descending There was mild diffuse (<=25% stenosis) disease of the entirevessel segment of the left anterior descending artery (LAD). The mid segment of the LAD had a single discrete 30% stenosis. Left Circumflex There was mild diffuse (<=25% stenosis) disease of the entirevessel segment of the left circumflex artery (LCX). The proximalsegment of the LCX had a single discrete 20% stenosis. There also wasa 0% stenosis of the mid segment of the LCX. The previously placedstent is patent. Right Coronary Artery There was mild diffuse (<=25% stenosis) disease of the entirevessel segment of the right coronary artery (RCA). The ostial segmentof the RCA had a calcified single discrete 95% stenosis. Therealso was a 30% calcified long segmental stenosis of the mid segmentof the RCA. There was a 0% stenosis of the distal 1 segment ofthe RCA. The previously placed stent is patent. The distal 2segment of the RCA had a long segmental 40% stenosis. Intravascular Imaging/Physiology: Intravascular Ultrasound was performed in the ostial RCA using a 6Fr JR 4 guiding catheter and a 3.1 Fr Refinity 42 MHz catheter using auto1 mm/sec pullback. Imaging was successful. Image quality was good.The ostial RCA showed moderate diffuse atherosclerotic plaque withscattered two quadrant calcification. Additional Findings: IVUS performed using mechanical pullback of themid RCA to the ostium of the vessel following stent deployment. Imaging revealed 2 quadrant calcification and underexpansion of the proximal stent. The stent appeared well apposed. Post dilation wassubsequently performed. Indication for Intervention: Coronary intervention was indicated for primary therapy for an acute myocardial infarction. The priority for the procedure was Emergent.The [facility] indication for the procedure was STEMI (after successfullytics). STEMI onset was 08/06/2019 at 11:00 PM, estimated. Thrombolyticswere administered on 08/06/2019 at 12:30 AM. Intervention Summary: Right Coronary Artery Ostial 95% Stent insertion was performed on the 95% stenosis in the ostial segment of the RCA. This was a de adonis lesion. According to the ACC/AHA classification system, thislesion was a type B2 high risk lesion. Primary prevention of restenosis was the indication for stent insertion. Thiswas the culprit lesion. A guidewire was placed across thislesion. Vessel flow pre intervention was ENE 3. Lesion lengthwas 12mm. Stent insertion was accomplished through a 6 Fr. JR 4guide. The lesion was predilated with a 2.00mm EUPHORA 12 MMballoon with a maximum inflation pressure of 12 atmospheres. A premounted 2.50 x 18 mm Resolute JENNIFER (EDEN) was deployedwith a maximum inflation pressure of 15 atmospheres.Following stent deployment, the lesion was dilated using a 2.50mmNC EUPHORA 12 MM balloon with a maximum inflation pressureof 20 atmospheres. The final outcome was defined as successful. There was no residual stenosis following this intervention. The finalTIMI flow was 3. Vascular Access: Vascular Access Management: Mechanical Compression of the right radial artery access sitewas performed. Dual Antiplatelet (DAPT) Recommendations: Drug eluting stent (EDEN) inserted. P2Y12 Loading dose Clopidgrel 300 mg PO given in lab. Recommended anti-platelet/anti-thrombotic regimen: Start aspirin 81 mg daily now and continue for indefinitely. Continue prasugrel 10 mg daily for 12 months then stop. These recommendations are made at the time of the intervention.Patient and provider preferences or a changing clinical situation mayrequire modification of this regimen. Consult [facility] Interventional Cardiologyfor questions. This patient has a high DAPT score and may benefit from prolonged(12-30 months) dual antiplatelet therapy. If the patient has completed 12months of DAPT without having a major bleeding or ischemic event and thepatient is NOT on chronic anticoagulation. This should be used for guidancein the overall conversation about prolonged dual antiplatelet therapyand not as a recommendation for or against any medical treatment.Consult http://tools.acc.org/DAPTriskapp/#!/content/calculator/ or [facility] Interventional Cardiology for questions. Conclusions: * One vessel coronary artery disease [...] Postdilation performed to high pressure. IVUS highlighted diffusedisease of RCA. The attending physician was present for the entire procedure. Dr. Jung Merino M.D. was present during the moderate sedation intraservice time as documented by the sedation nurse. Case time =01:04. Dr. Jung Merino M.D. performed the coronary angiography, left heart catheterization, stent insertion-coronary and IVUS # coronary. Jung Ashley M.D. Electronically Signed by: Jung Merino M.D. Report Finalized: 08/09/2019 14:51 Report Last Ammended: 09/12/2019 15:41 Jung Merino MD CARDIAC CATH CASSI HU * EKG 12 Lead (08/06/2019 2:05 AM EDT) Ventricular rate 85 BPM MUSE SYSTEM Atrial Rate 85 BPM MUSE SYSTEM P-R Interval 172 ms MUSE SYSTEM QRS Duration 106 ms MUSE SYSTEM Q-T Interval 382 ms MUSE SYSTEM QTC Calculated (Bezet) 454 ms MUSE SYSTEM Calculated P [place] 68 degrees MUSE SYSTEM Calculated R [place] 71 degrees MUSE SYSTEM Calculated T [place] 24 degrees MUSE SYSTEM INTERPRETATION Normal sinus rhythm Normal ECG When compared with ECG of 04-JUL-2018 22:00, No significant change was found I personally reviewed the tracing and edited the fellows interpretation Confirmed by fellow MD Dee, Jaylin Oviedo ([id number]) on 08/06/2019 1:17:24 PM Confirmed by MD Erwin Gregory A. ([id number]) on 08/07/2019 9:47:34 AM MUSE SYSTEM 08/06/2019 2:05 AM EDT 08/07/2019 9:47 AM EDT Tiffanie Espino MD ECG ORDERABLES MUSE SYSTEM documented in this encounter Visit Diagnoses Diagnosis ST elevation myocardial infarction involving right coronary artery- Primary Acute myocardial infarction of inferoposterior wall, initial episode of care ST elevation myocardial infarction (STEMI), unspecified artery ST elevation myocardial infarction involving right coronary artery Acute myocardial infarction of inferoposterior wall, initial episode of care History of tobacco use Personal history of tobacco use, presenting hazards to health Gastroesophageal reflux disease without esophagitis Esophageal reflux Type 2 diabetes mellitus without complication, without long-term current use of insulin Uncomplicated alcohol dependence Other and unspecified alcohol dependence, unspecified drinking behavior CARLOTA (obstructive sleep apnea) Obstructive sleep apnea (adult) (pediatric) ST elevation myocardial infarction (STEMI), unspecified artery documented in this encounter Admitting Diagnoses Diagnosis STEMI (ST elevation myocardial infarction) Acute myocardial infarction, unspecified site, episode of care unspecified documented in this encounter Administered Medications Inactive Administered Medications - up to 3 most recent administrations Medication Order MAR Action Action Date Dose Rate Site aspirin EC tablet 81 mg 81 mg, Oral, DAILY, First dose on Mon08/06/19 at 0900, Until Discontinued, Routine Given 08/07/2019 8:11 AM EDT 81 mg Given 08/06/2019 8:29 AM EDT 81 mg atorvastatin (Lipitor) tablet 80 mg 80 mg, Oral, EVERY EVENING, First dose on Mon08/06/19 at 1700, Until Discontinued, Routine Given 08/07/2019 5:14 PM EDT 80 mg Given 08/06/2019 5:54 PM EDT 80 mg clopidogreL (Plavix) tablet 75 mg 75 mg, Oral, ONCE, 1 dose, On Mon08/06/19 at 0800, Routine Given 08/06/2019 8:28 AM EDT 75 mg dextrose 10% infusion 250 mL, at 1,000 mL/hr, Intravenous, EVERY 30 MIN PRN, Starting on Mon08/06/19 at [...] of the active insulin. EPINEPHrine in D5W (ADRENALIN) 2 mg/250 mL (8 mcg/mL) infusion Soln 1 dose, Starting on Mon08/06/19 at 0204, Until Mon08/06/19 at 0205, DAVE RAMÍREZ: cabinet override New Bag 08/06/2019 2:05 AM EDT 1.5 mcg/min 11.3 mL/hr folic acid (Folvite) tablet 1,000 mcg 1,000 mcg (1 mg), Oral, DAILY, First dose on Mon08/07/19 at 1030, Until Discontinued, Routine Given 08/07/2019 11:29 AM EDT 1,000 mcg furosemide (LASIX) injection 20 mg 20 mg, Intravenous, ONCE, 1 dose, On Mon08/06/19 at 1045 Given 08/06/2019 10:48 AM EDT 20 mg glucagon (human recombinant) injection SolR 1 mg 1 mg, Intramuscular, EVERY 30 MIN PRN, Starting on Mon08/06/19 at [...] Buccal, EVERY 30 MIN PRN, Starting on Mon08/06/19 at [...] grams., Routine heparin (porcine) 25,000 unit/500 mL infusion 1 dose, Starting on Mon08/06/19 at 0205, Until Mon08/06/19 at 0209, Brenda Woodall: cabinet override New Bag 08/06/2019 2:09 AM EDT 1,000 Units heparin (Porcine) subcutaneous injection 5,000 Units 5,000 Units, Subcutaneous, EVERY 8 HOURS SCHEDULED, First dose on Mon08/06/19 at 0600, Until Discontinued, Routine Given 08/07/2019 3:11 PM EDT 5,000 Units Given 08/07/2019 5:07 AM EDT 5,000 Units Given 08/06/2019 9:03 PM EDT 5,000 Units insulin lispro (HumaLOG) VIAL injection 1-4 Units 1-4 Units, Subcutaneous, EVERY 4 HOURS [...] 240 in 2 hours., Routine Given 08/07/2019 5:14 PM EDT 4 Units Given 08/07/2019 12:02 PM EDT 4 Units Given 08/07/2019 8:13 AM EDT 1 Units ipratropium-albuteroL (DUONEB) 0.5 mg-3 mg(2.5 mg base)/3 mL nebulizer solution 3 mL 3 mL, Nebulization, 4 TIMES DAILY PRN, Starting on Mon08/07/19 at 1351, Until Mon08/07/19 at 2017, Wheezing, Routine LORazepam (ATIVAN) injection 0.5-1.5 mg 0.5-1.5 mg, Intravenous, EVERY 4 HOURS PRN, Starting on Mon08/07/19 at 1139, Until Mon08/07/19 at 2017, alcohol/benzodiazepine withdrawal- uncomplicated, ATTENTION: THIS IS LOW DOSE LORAZEPAM When given intravenously, the rate of administration should not exceed 2 [...] 1139, Until Mon08/07/19 at 2017, alcohol/benzodiazepine withdrawal- uncomplicated, ATTENTION: THIS IS LOW [...] 2 mg, Intravenous, EVERY 8 HOURS, 6 doses, First dose on Mon08/07/19 at 1215, Last dose on Mon08/09/19 at 0415, When given intravenously, the rate of administration should not exceed 2mg/minute with emergency equipment available. May give IV if unable to take PO. May give IM if no IV access., Routine LORazepam (ATIVAN) injection 2 mg 2 mg, Intramuscular, EVERY 8 HOURS, 6 doses, First dose on Mon08/07/19 at 1215, Last dose on Mon08/09/19 at 0415, May give IV if unable to take PO. May give IM if no IV access., Routine LORazepam (Ativan) tablet 0.5-1.5 mg 0.5-1.5 mg, Oral, EVERY 4 HOURS PRN, Starting on Mon08/07/19 at 1139, Until Mon08/07/19 at 2017, alcohol/benzodiazepine withdrawal- uncomplicated, ATTENTION: THIS IS LOW [...] mg, Oral, EVERY 8 HOURS, 6 doses, First dose on Mon08/07/19 at 1215, Last dose on Mon08/09/19 at 0415, May give IV if unable to take PO. May give IM if no IV access., Routine magnesium sulfate 2 g in sterile water 50 mL 2 g, Intravenous, ONCE, 1 dose, On 08/06/19 at 1800, Administer over 120 Minutes New Bag 08/06/2019 6:12 PM EDT 2 g 25 mL/hr metoprolol tartrate (Lopressor) tablet 12.5 mg 12.5 mg, Oral, EVERY 6 HOURS SCHEDULED, First dose on Mon08/06/19 at 1315, Until Discontinued, Hold for SBP < 100 mm Hg or HR < 55 bpm, Routine Given 08/07/2019 5:07 AM EDT 12.5 mg Given 08/06/2019 11:28 PM EDT 12.5 mg Given 08/06/2019 5:54 PM EDT 12.5 mg metoprolol tartrate (Lopressor) tablet 25 mg 25 mg, Oral, EVERY 6 HOURS SCHEDULED, First dose (after last modification) on Mon08/07/19 at 1200, Until Discontinued, Hold for SBP < 100 mm Hg or HR < 55 bpm, Routine Given 08/07/2019 5:13 PM EDT 25 mg Given 08/07/2019 11:28 AM EDT 25 mg nicotine (NICODERM CQ) 21 mg/24 hr patch 21 mg 21 mg (1 patch), Transdermal, DAILY, First dose on Mon08/06/19 at 0900, Until Discontinued, Routine Patch Applied 08/06/2019 8:27 AM EDT 21 mg 04- Shoulder (Right) nicotine (NICODERM CQ) 21 mg/24 hr patch 42 mg 42 mg (2 patch), Transdermal, DAILY, First dose (after last modification) on Mon08/07/19 at 0900, Until Discontinued, Routine Patch Applied 08/07/2019 8:11 AM EDT 21 mg 03- Shoulder (Left) nicotine (NICODERM CQ) patch REMOVAL Transdermal, DAILY, First dose (after last modification) on Mon08/07/19 at 0530, Until Discontinued, Remove nicotine 21 mg/24 hr patch nicotine polacrilex (COMMIT) lozenge 4 mg 4 mg, Buccal, EVERY 2 HOURS PRN, Starting on Mon08/06/19 at 1254, Until Mon08/07/19 at 2017, Smoking cessation, Do not chew or swallow. Place in mouth and allow to slowly dissolve., Routine pantoprazole EC (Protonix) tablet 40 mg 40 mg, Oral, DAILY, First dose on Mon08/06/19 at 0900, Until Discontinued, DO NOT CRUSH OR OPEN, Routine Given 08/07/2019 8:11 AM EDT 40 mg Given 08/06/2019 8:28 AM EDT 40 mg pantoprazole EC (Protonix) tablet 40 mg 40 mg, Oral, 2 TIMES DAILY, First dose (after last modification) on Mon08/07/19 at 2100, Until Discontinued, DO NOT CRUSH OR OPEN, Routine Patch Verification Transdermal, 2 TIMES DAILY, First dose (after last modification) on Mon08/06/19 at 1730, Until Discontinued, Verify nicotine 21 mg/24 hr patch prasugreL (Effient) tablet 10 mg 10 mg, Oral, DAILY, First dose on Mon08/08/19 at 0900, Until Discontinued, Routine prasugreL (Effient) tablet 60 mg 60 mg, Oral, ONCE, 1 dose, On Mon08/07/19 at 0900, Routine Given 08/07/2019 8:13 AM EDT 60 mg sodium chloride 0.9 % (flush) flush 5 mL 5 mL, Intravenous, 2 TIMES DAILY, First dose on Mon08/06/19 at 0900, Until Discontinued, Routine Given 08/07/2019 8:13 AM EDT 5 mLs Given 08/06/2019 9:00 PM EDT 5 mLs Given 08/06/2019 9:00 AM EDT 5 mLs sodium chloride 0.9% infusion 100 mL/hr, Intravenous, CONTINUOUS, Starting on Mon08/06/19 at 0515, Until Mon08/06/19 at 0814, Recovery (Recovery-Hospital Unit) New Bag 08/06/2019 5:21 AM EDT 100 mL/hr 100 mL /hr sucralfate (Carafate) (100 mg/mL) oral liquid 1 g 1 g, Oral, EVERY 6 HOURS SCHEDULED, First dose on Mon08/06/19 at 0600, Until Discontinued, Routine Given 08/07/2019 5:13 PM EDT 1 g Given 08/07/2019 11:30 AM EDT 1 g Given 08/07/2019 5:07 AM EDT 1 g thiamine (Vitamin B1) tablet 100 mg 100 mg, Oral, DAILY, First dose on Mon08/07/19 at 1030, Until Discontinued, Routine Given 08/07/2019 11:2 9 AM EDT 100 mg documented in this encounter Active and Recently Administered Medications Times are shown in EDT. Scheduled Medication Order 08/05/2019 08/06/201908/0608/07/2019 aspirin EC tablet 81 mg 81 mg, Oral, DAILY, First dose on Mon08/06/19 at 0900, Until Discontinued, Routine 0829 (Given - Provider: Daniel Sands RN) 0811 (Given - Provider: Maureen Carrillo, GUILLAUME) atorvastatin (Lipitor) tablet 80 mg 80 mg, Oral, EVERY EVENING, First dose on Mon08/06/19 at 1700, Until Discontinued, Routine 1754 (Given - Provider: Rama Park RN) 1714 (Given - Provider: Maureen Carrillo, GUILLAUME) clopidogreL (Plavix) tablet 75 mg (COMPLETED) 75 mg, Oral, ONCE, 1 dose, On Mon08/06/19 at 0800, Routine 0828 (Given - Provider: Daniel Sands RN) folic acid (Folvite) tablet 1,000 mcg 1,000 mcg (1 mg), Oral, DAILY, First dose on Mon08/07/19 at 1030, Until Discontinued, Routine 1129 (Given - Provid er: Maueren Carrillo RN) furosemide (LASIX) injection 20 mg (COMPLETED) 20 mg, Intravenous, ONCE, 1 dose, On Mon08/06/19 at 1045 1048 (Given - Provider: Daniel Sands RN) heparin (Porcine) subcutaneous injection 5,000 Units 5,000 Units, Subcutaneous, EVERY 8 HOURS SCHEDULED, First dose on Mon08/06/19 at 0600, Until Discontinued, Routine 0600 (Not Given - Provider: Natalia Renee RN - Reason: Patient/family refused)1349 (Given - Provider: Daniel Sands RN)2103 (Given - Provider: Natalia Renee RN) 0507 (Given - Provider: Natalia Renee RN)1511 (Given - Provider: Maureen Carrillo, GUILLAUME) insulin lispro (HumaLOG) VIAL injection 1-4 Units(Linked Group 1) 1-4 Units, Subcutaneous, EVERY 4 HOURS SCHEDULED, [...] of > 240 in 2 hours., Routine 0536 (Given - Provider: Natalia Renee RN)0828 (Given - Provider: Daniel Sands, RN)1200 (Not Given - Provider: Daniel Sands, GUILLAUME - Reason: Order parameters not met)1648 (Not Given - Provider: Rama Park RN - Reason: Order parameters not met)2032 (Given - Provider: Natalia Renee, GUILLAUME)2328 (Given - Provider: Natalia Renee, GUILLAUME) 0400 (Not Given - Provider: Natalia Renee RN - Reason: Order parameters not met)0813 (Given - Provider: Maureen Carrillo RN)1202 (Given - Provider: Maureen Carrillo, GUILLAUME)1714 (Given - Provider: Maureen Carrillo, RN) LORazepam (ATIVAN) injection 2 mg(Linked Group 2) 2 mg, Intravenous, EVERY 8 HOURS, 6 doses, First dose on Mon08/07/19 at 1215, Last dose on Mon08/09/19 at 0415, When given intravenously, the rate of administration should not exceed 2mg/minute with emergency equipment available. May give IV if unable to take PO. May give IM if no IV access., Routine 121 (See Alternativ e - Provider: Maureen Carrillo, GUILLAUME) LORazepam (ATIVAN) injection 2 mg(Linked Group 2) 2 mg, Intramuscular, EVERY 8 HOURS, 6 doses, First dose on Mon08/07/19 at 1215, Last dose on Mon08/09/19 at 0415, May give IV if unable to take PO. May give IM if no IV access., Routine 1214 (See Alternativ e - Provider: Maureen Carrillo RN) LORazepam (Ativan) tablet 2 mg(Linked Group 2) 2 mg, Oral, EVERY 8 HOURS, 6 doses, First dose on Mon08/07/19 at 1215, Last dose on Mon08/09/19 at 0415, May give IV if unable to take PO. May give IM if no IV access., Routine 1215 (Not Given - Provider: Maureen Carrillo RN - Reason: Contraindicated) magnesium sulfate 2 g in sterile water 50 mL (COMPLETED) 2 g, Intravenous, ONCE, 1 dose, On Mon08/06/19 at 1800, Administer over 120 Minutes 181 (New Bag - Provider: Rama Park RN)2011 (Stopped - Provider: Natalia Renee RN) metoprolol tartrate (Lopressor) tablet 12.5 mg (CANCELED) 12.5 mg, Oral, EVERY 6 HOURS SCHEDULED, First dose on Mon08/06/19 at 1315, Until Discontinued, Hold for SBP < 100 mm Hg or HR < 55 bpm, Routine 1348 (Given - Provider: Daniel Snads RN)1754 (Given - Provider: Rama Park RN)2328 (Given - Provider: Natalia Renee RN) 0507 (Given - Provider: Natalia Renee RN) metoprolol tartrate (Lopressor) tablet 25 mg 25 mg, Oral, EVERY 6 HOURS SCHEDULED, First dose (after last modification) on Mon08/07/19 at 1200, Until Discontinued, Hold for SBP < 100 mm Hg or HR < 55 bpm, Routine 1128 (Given - Provid er: Maureen Carrillo RN)1713 (Given - Provider: Maureen Carrillo RN) nicotine (NICODERM CQ) 21 mg/24 hr patch 21 mg (CANCELED) 21 mg (1 patch), Transdermal, DAILY, First dose on Mon08/06/19 at 0900, Until Discontinued, Routine 0827 (Patch Applied - Provider: Daniel Sands RN) nicotine (NICODERM CQ) 21 mg/24 hr patch 42 mg(Linked Group 3) 42 mg (2 patch), Transdermal, DAILY, First dose (after last modification) on Mon08/07/19 at 0900, Until Discontinued, Routine 0811 (Patch Applied - Provider: Maureen Carrillo RN - Comment: only one patch per pt request) nicotine (NICODERM CQ) patch REMOVAL(Linked Group 3) Transdermal, DAILY, First dose (after last modification) on Mon08/07/19 at 0530, Until Discontinued, Remove nicotine 21 mg/24 hr patch 09 (Patch Removed - Provider: Maureen Carrillo RN) pantoprazole EC (Protonix) tablet 40 mg (CANCELED) 40 mg, Oral, DAILY, First dose on Mon08/06/19 at 0900, Until Discontinued, DO NOT CRUSH OR OPEN, Routine 0828 (Given - Provider: Daniel Sands RN) 08 (Given - Provider: Maureen Carrillo, GUILLAUME) pantoprazole EC (Protonix) tablet 40 mg 40 mg, Oral, 2 TIMES DAILY, First dose (after last modification) on Mon08/07/19 at 2100, Until Discontinued, DO NOT CRUSH OR OPEN, Routine Patch Verification(Linked Group 3) Transdermal, 2 TIMES DAILY, First dose (after last modification) on Mon08/06/19 at 1730, Until Discontinued, Verify nicotine 21 mg/24 hr patch 1648 (Patch (dose and location) verified - Provider: Rama Park RN) 0900 (Patch (dose and location) verified - Provider: Maureen Carrillo RN) prasugreL (Effient) tablet 10 mg 10 mg, Oral, DAILY, First dose on Mon08/08/19 at 0900, Until Discontinued, Routine prasugreL (Effient) tablet 60 mg (COMPLETED) 60 mg, Oral, ONCE, 1 dose, On Mon08/07/19 at 0900, Routine 08 (Given - Provid er: Maureen Carrillo RN) sodium chloride 0.9 % (flush) flush 5 mL 5 mL, Intravenous, 2 TIMES DAILY, First dose on Mon08/06/19 at 0900, Until Discontinued, Routine 09 (Given - Provider: Daniel Sands RN)2100 (Given - Provider: Natalia Renee RN) 08 (Given - Provider: Maureen Carrillo RN) sucralfate (Carafate) (100 mg/mL) oral liquid 1 g 1 g, Oral, EVERY 6 HOURS SCHEDULED, First dose on Mon08/06/19 at 0600, Until Discontinued, Routine 0600 (Given - Provider: Daniel E Sands, RN)1236 (Given - Provider: Daniel Sands, RN)1753 (Given - Provider: Rama Park, GUILLAUME)2328 (Given - Provider: Natalia Renee, GUILLAUME) 0507 (Given - Provider: Natalia Renee, GUILLAUME)1130 (Given - Provider: Maureen Carrillo, RN)1713 (Given - Provider: Maureen Carrillo, RN) thiamine (Vitamin B1) tablet 100 mg 100 mg, Oral, DAILY, First dose on Mon08/07/19 at 1030, Until Discontinued, Routine 1129 (Given - Provid er: Maureen Carrillo, GUILLAUME) Continuous Medication Order 08/05/2019 08/06/2019 08/07/2019 sodium chloride 0.9% infusion () 100 mL/hr, Intravenous, CONTINUOUS, Starting on Mon08/06/19 at 0515, Until Mon08/06/19 at 0814, Recovery (Recovery-Hospital Unit) 0521 (New Bag - Provider: Natalia Renee RN) PRN Medication Order 08/05/2019 08/06/2019 08/07/2019 alum-mag hydroxide-simeth (Maalox) (40 mg-40 mg-4 mg/mL) oral liquid (CANCELED) ONCE PRN, Starting on Mon08/06/19 at 0409, Until Mon08/06/19 at 0414, Cath (Intra-Procedure), Routine 0409 (Given - Provider: Amita Pizarro) clopidogreL (Plavix) tablet (CANCELED) ONCE PRN, Starting on Mon08/06/19 at 0222, Until Mon08/06/19 at 0403, Cath (Intra-Procedure), Routine 0222 (Given - Provider: Mckenzie Parks RN) dextrose 10% infusion(Linked Group 4) 250 mL, at 1,000 mL/hr, Intravenous, EVERY 30 MIN PRN, Starting on Mon08/06/19 at [...] insulin. fentaNYL 50 mcg/mL multi-dose injection (CANCELED) ONCE PRN, Starting on Mon08/06/19 at 0234, Until Mon08/06/19 at 0403, Intra-Operative (Intra-Procedure), Routine 0234 (Given - Provider: Mckenzie Parks RN)0237 (Given - Provider: Mckenzie Parks, GUILLAUME)0331 (Given - Provider: Mckenzie Parks, RN) glucagon (human recombinant) injection SolR 1 mg(Linked Group 4) 1 mg, Intramuscular, EVERY 30 MIN PRN, Starting on Mon08/06/19 at [...] Buccal, EVERY 30 MIN PRN, Starting on Mon08/06/19 at [...] Routine heparin (porcine) 1,000 unit/mL injection (CANCELED) ONCE PRN, Starting on Mon08/06/19 at 0250, Until Mon08/06/19 at 0403, Cath (Intra-Procedure), Routine 0250 (Given - Provider: Mckenzie Parks RN)0303 (Given - Provider: Mckenzie Parks RN) iohexoL (OMNIPAQUE) 350 mg/mL solution (CANCELED) ONCE PRN, Starting on Mon08/06/19 at 0348, Until Mon08/06/19 at 0403, Cath (Intra-Procedure), Routine 0348 (Given - Provider: Jung Merino MD) ipratropium-albuteroL (DUONEB) 0.5 mg-3 mg(2.5 mg base)/3 mL nebulizer solution 3 mL 3 mL, Nebulization, 4 TIMES DAILY PRN, Starting on Mon08/07/19 at 1351, Until Mon08/07/19 at 2016, Wheezing, Routine lidocaine (XYLOCAINE) 10 mg/mL (1 %) injection 3 mg 3 mg (0.3 mL), Subcutaneous, ONCE PRN, 1 dose, Starting on Mon08/06/19 at 0450, Until Mon08/07/19 at 2016, for discomfort with PIV insertion, Routine lidocaine (XYLOCAINE) 10 mg/mL (1 %) injection (CANCELED) ONCE PRN, Starting on Mon08/06/19 at 0236, Until Mon08/06/19 at 0403, Cath (Intra-Procedure), Routine 0236 (Given - Provider: Jose Ellison MD) LORazepam (ATIVAN) injection 0.5-1.5 mg(Linked Group 5) 0.5-1.5 mg, Intravenous, EVERY 4 HOURS PRN, Starting on Mon08/07/19 at 1139, Until Mon08/07/19 at 2016, alcohol/benzodiazepine withdrawal- uncomplicated, ATTENTION: THIS IS LOW DOSE LORAZEPAM When given intravenously, the rate of administration should not exceed 2 [...] Oral, EVERY 4 HOURS PRN, Starting on Mon08/07/19 [...] Routine midazolam (PF) (VERSED) multi-dose injection (CANCELED) ONCE PRN, Starting on Mon08/06/19 at 0234, Until Mon08/06/19 at 0403, Cath (Intra-Procedure), Routine 0234 (Given - Provider: Mckenzie Parks RN)0237 (Given - Provider: Mckenzie Parks RN)0247 (Given - Provider: Mckenzie Parks RN) nicotine polacrilex (COMMIT) lozenge 4 mg 4 mg, Buccal, EVERY 2 HOURS PRN, Starting on Mon08/06/19 at 1254, Until Mon08/07/19 at 2016, Smoking cessation, Do not chew or swallow. Place in mouth and allow to slowly dissolve., Routine nitroGLYcerin (Nitrostat) disintegrating tablet 0.4 mg 0.4 mg, Sublingual, EVERY 5 MIN PRN, Starting on Mon08/06/19 at 0450, [...] Routine nitroGLYcerin 100 mcg/mL intracoronary dilution (CANCELED) ONCE PRN, Starting on Mon08/06/19 at 0245, Until Mon08/06/19 at 0403, Cath (Intra-Procedure), Routine 0245 (Given - Provider: Jose Ellison MD) sodium chloride 0.9 % (flush) flush 5-20 mL 5-20 mL, Intravenous, EVERY 1 MIN PRN, Starting on Mon08/06/19 at 0450, Until Mon08/07/19 at 2016, flush, Flush pertains to all indwelling lines. Flush per protocol found in the job aid using the link provided on this medication record., Routine No Frequency Medication Order 08/05/2019 08/06/2019 08/07/2019 EPINEPHrine in D5W (ADRENALIN) 2 mg/250 mL (8 mcg/mL) infusion Soln (COMPLETED) 1 dose, Starting on Mon08/06/19 at 0204, Until Mon08/06/19 at 0205, DAVE RAMÍREZ.: cabinet override 0205 (New Bag - Provider: Dave Ramírez, RN) heparin (porcine) 25,000 unit/500 mL infusion (COMPLETED) 1 dose, Starting on Mon08/06/19 at 0205, Until Mon08/06/19 at 0209, Brenda Woodall: cabinet override 0209 (New Bag - Provider: Dave Ramírez RN) Linked Groups Order Group 1: POCT Fingerstick Glucose (CANCELED) Routine, EVERY 4 HOURS, First occurrence on Mon08/06/19 at 0455, Until Specified, Consider choosing EVERY 4 HOURS [...] med 1-4 Units, Subcutaneous, EVERY 4 HOURS SCHEDULED, [...] of > 240 in 2 hours., Routine Group 2: LORazepam (Ativan) tablet 2 mgJump to med 2 mg, Oral, EVERY 8 HOURS, 6 doses, First dose on Mon08/07/19 at 1215, Last dose on Mon08/09/19 at 0415, May give IV if unable to take PO. May give IM if no IV access., Routine Or LORazepam (ATIVAN) injection 2 mgJump to med 2 mg, Intravenous, EVERY 8 HOURS, 6 doses, First dose on Mon08/07/19 at 1215, Last dose on Mon08/09/19 at 0415, When given intravenously, the rate of administration should not exceed 2mg/minute with emergency equipment available. May give IV if unable to take PO. May give IM if no IV access., Routine Or LORazepam (ATIVAN) injection 2 mgJump to med 2 mg, Intramuscular, EVERY 8 HOURS, 6 doses, First dose on Mon08/07/19 at 1215, Last dose on Mon08/09/19 at 0415, May give IV if unable to take PO. May give IM if no IV access., Routine Group 3: nicotine (NICODERM CQ) 21 mg/24 hr patch 42 mgJump to med 42 mg (2 patch), Transdermal, DAILY, First dose (after last modification) on Mon08/07/19 at 0900, Until Discontinued, Routine And Patch VerificationJump to med Transdermal, 2 TIMES DAILY, First dose (after last modification) on Mon08/06/19 at 1730, Until Discontinued, Verify nicotine 21 mg/24 hr patch And nicotine (NICODERM CQ) patch REMOVALJump to med Transdermal, DAILY, First dose (after last modification) on Mon08/07/19 at 0530, Until Discontinued, Remove nicotine 21 mg/24 hr patch Group 4: glucose (GLUTOSE) 40% oral gelJump to med 15-30 g, Buccal, EVERY 30 MIN PRN, Starting on Mon08/06/19 at [...] weight of tube = 37.5 grams., Routine Or dextrose 10% infusionJump to med 250 mL, at 1,000 mL/hr, Intravenous, EVERY 30 MIN PRN, Starting on Mon08/06/19 at 045, Until Mon08/07/19 at 2016, For BG 50-70 mg/dL: Oral treatment preferred:?? [...] Intramuscular, EVERY 30 MIN PRN, Starting on Mon08/06/19 at [...] the duration of the active insulin., Routine Group 5: LORazepam (Ativan) tablet 0.5-1.5 mgJump to med 0.5-1.5 mg, Oral, EVERY 4 HOURS PRN, Starting on Mon08/07/19 [...] mg PO or IV or IM., Routine Or LORazepam (ATIVAN) injection 0.5-1.5 mgJump to med 0.5-1.5 mg, Intravenous, EVERY 4 HOURS PRN, Starting on Mon08/07/19 at 1139, Until Mon08/07/19 at 2016, alcohol/benzodiazepine withdrawal- uncomplicated, ATTENTION: THIS IS LOW DOSE LORAZEPAM When given intravenously, the rate of administration should not exceed 2 [...] mg PO or IV or IM., Routine Or LORazepam (ATIVAN) injection 0.5-1.5 mgJump to med 0.5-1.5 mg, Intramuscular, EVERY 4 HOURS PRN, Starting on Mon08/07/19 at 1139, Until Mon08/07/19 at 2017, alcohol/benzodiazepine withdrawal- uncomplicated, ATTENTION: THIS IS LOW DOSE LORAZEPAM Per assessment scale for uncomplicated withdrawal from alcohol. May give IV if unable to take PO. May give IM if no IV access. Medication should be administered at least every 4 hours: For withdrawal score of 5-7, give 0.5 mg PO or IV or IM: administer every 4 hours. For withdrawal score of 8- [...] mg PO or IV or IM., Routine documented in this encounter Care Teams Floor Hand Relationship Specialty Start Date End Date Sae Marr MD PCP - General General Internal Medicine 08/06/19 9/ documented as of this encounter
--- OUTSIDE RECORDS SUMMARY | 2023-10-24 16:00 | XMS_ITS | Encounter Summary ---
[place] [address] Care Team Providers Care Relay Telegrapher Name Role Phone Robinson Vazquez APRN Primary Care Provider [phone]- [phone] Encounter Details Date Type Department Care Team (Late st Contact Info) Description 12/29/2020 10:00 AM EDT - 12/29/2020 11:00 AM EDT Surgery [place] [id number] Snehal Walker MD [facility] [place] [address] CARDIAC CATHETERIZATION Social History Tobacco Use Types [...] 36.7 ??C (98.1 ??F) 12/29/2020 9:46 AM ED T Respiratory Rate 18 12/29/2020 9:46 AM EDT Oxygen Saturation 96% 12/29/2020 9:46 AM EDT Inhaled Oxygen Concentration - - Weight 134.7 kg (297 lb) 12/29/2020 9:46 AM EDT Height 182.9 cm (6') 12/29/2020 9:46 AM EDT Body Mass Index 40.28 12/29/2020 9:46 AM EDT documented in this encounter Discharge Instructions * Patient Instructions* Yves Fernandez MD - 12/29/2020 12:52 PM EDT Radial Access for Heart Cath Activity Try to avoid bending your wrist for the first 12-24 hours after the procedure to allow the artery to fully heal. Do not participate in active sports for 48 hours. Do not lift anything greater than 5 lbs. Catheter Insertion Area Care Take the dressing off of the catheter insertion site the morning following the procedure. Leave thesite open to air. If the site is [...] This should improve during the 24-48 hours after the procedure. You may use acetaminophen (tylenol) if needed. Contact your doctor if the discomfort worsens. Problems to Watch for If there is [...] No future appointments. Your Inpatient Doctor: Snehal Walker MD Your Primary Care Provider: Sae Marr MD [phone] For questions regarding this document or issues relating to this hospitalization on the Medical Service, please contact your inpatient physician through the [facility] . Issues afterhours and on weekends will be handled by the Hospitalist staff on-call. documented in this encounter Medications at Time of Discharge Medication Sig Dispensed Refills Start Date End Date acetaminophen (Tylenol) 325 mg tablet every 6 hours as needed. 06/27/2019 OneTouch Verio test strips Strip TEST BLOOD GLUCOSE TWICE A DAY 06/23/2020 OneTouch Verio Flex meter Misc TEST BLOOD GLUCOSE TWICE A DAY 06/23/2020 viivlsfpzqn-hloqxzgib-a ilanter 100-62.5-25 mcg Disk with Device Inhale 1 [...] Take 81 mg by mouth Daily. 08/27/2017 furosemide (Lasix) 40 mg Tablet TAKE ONE TABLET BY MOUTH EVERY DAY 08/13/2020 02/24/2022 isosorbide mononitrate (IMDUR) 60 mg Tablet Sustained Release 24 hr 09/02/202002/10 metoprolol succinate XL (Toprol-XL) 100 mg Tablet [...] as of this encounter Progress Notes * Ann Leroy RN - 12/29/2020 3:07 PM EDT Pt ready for discharge - meeting discharge criteria VSS reviewed discharge instructions- answered questions pt comfortable with discharge. IV removed all sites cdi . Pt transported to same day waiting via wheel chair to pt . documented in this encounter H&P Notes * Royce Donahue PA - 12/29/2020 10:12 AM EDT Patient Name: Samy Patricio Jr. Patient Age: 55 y.o. Birthdate: 1965 Admit date: 12/29/2020 Attending Physician: Snehal Walker MD [facility] Interventional Cardiology Adult Pre-Procedure H&P Update: Mr Samy Patricio [id number] 1965 Chief Complaint: Chest discomfort HPI: Samy Patricio Jr. is a 55 y.o. male referred for cardiac catheterization By his process controller in the [place] [address] BRITT Kingston ([facility]) for evaluation of coronary artery anatomy and cardiac hemodynamics in the setting of progressive angina and prior CAD. His medical history is notable for coronary disease with nstemi 2017 and RCA/LCx intervention at [facility], then in 2019 STEMI with inferior ecg changes and PCI to RCA leaving against medical advice at thetime, DM, hypertension, hyperlipidemia. He notes progressive angina [...] GERD/ Barretts DM SOCIAL Hx: Lives in [facility] Outpatient Medications Marked as Taking for the 12/29/20 encounter (Hospital Encounter) Medication Sig Dispense Refill ??? fmwqttzykrs-tkvlnzmch-hkgzhuax 100-62.5-25 mcg Disk with Device 1 puff [...] with dyspnea on exertion in the setting ofknown prior CAD. Will proceed with cath. - proceed as planned - consent signed -no apparent contraindication to DAPT, patient denies upcoming or planned procedures/operations, and denies ongoing or recent bleeding events - FULL code -12-Lead ECG reviewed -Labs Reviewed: LABS currently in process. I have personally discussed the procedure, including benefits and risks, with the patient who agrees to proceed. The indications for the catheterization, the expected benefits, and the possible riskswere reviewed in detail with the patient. The [...] patient's questions were answered in full. Following thisdiscussion, the patient consented to the procedure and signed a form attesting to this, which is inthe chart ISABELLE Jackson Interventional Cardiology 12/29/20 10:12 AM [facility] Pager: [phone] documented in this encounter Miscellaneous Notes * Brief Op Note - Snehal Walker MD - 12/29/2020 12:52 PM EDT Preliminary Cardiac Catheterization Procedure Note: Patient Name: Samy Patricio Jr. : [id number] MR#: [id number] Case Date: 12/29/2020 Geophysical Operator: Surgeon(s) and Role: * Snehal Walker MD - Primary * Yves Fernandez MD [...] early complications. Full report to follow. SNEHAL WALKER MD documented in this encounter Plan of Treatment Upcoming Encounters Date Type Department Care Team (Late st Contact Info) Description 03/20/2024 10:00 AM EST Office [place] [address] Tania Gates OD [facility] [place] [address] documented as of this encounter Procedures Procedure Name Priority Date/Time Associated Diagnosis Comments POCT GLUCOSE Routine 01/26/2021 7:22 AM EST CARDIAC CATHETERIZATION Routine 12/29/2020 12:50 PM EDT Screening for cardiovascular condition Coronary artery disease, unspecified vessel or lesion type, unspecified whether angina present, unspecified whether wainwright or transplanted heart Chest discomfort POCT GLUCOSE Routine 12/29/2020 12:32 PM EDT BMP W/FASTING GLUCOSE STAT 12/29/2020 10:19 AM EDT HEMOGRAM STAT 12/29/2020 10:19 AM EDT DIFFERENTIAL, AUTOMATED STAT 12/29/2020 10:19 AM EDT HC CBC,PLT & AUTO DIFF STAT 10:19 AM EDT EKG 12-LEAD Routine 12/29/2020 10:18 AM EDT Screening for cardiovascular condition Coronary artery disease, unspecified vessel or lesion type, unspecified whether angina present, unspecified whether wainwright or transplanted heart Chest discomfort POCT GLUCOSE Routine 12/29/2020 9:50 AM EDT documented in this encounter Results * POCT Glucose (01/26/2021 7:22 AM EST) [facility] Glucose, POC 143 65 - 199 mg/dL [facility] Comment: Supplemental ranges: <140 mg/dL before meals <180 mg/dL all other times of the day Blood 01/26/2021 7:22 AM EST 01/26/2021 7:22 AM EST Snehal Walker MD POINT OF CARE TEST O RDERABLES Performing Organization Address City/State/[place] Co de Phone Number [facility] [place] [address] * CARDIAC CATHETERIZATION (12/29/2020 12:50 PM EDT) Anatomical Region Laterality Modality Other Narrative 12/29/2020 4:24 PM EDT ?[facility] ? Cardiac Catheterization/Intervention Report ? Patient Name: Samy Patricio Jr. S. ? Procedure Date: 12/29/2020 ? A #: [id number] ? Primary Physician: Snehal Walker ? Case #: [id number] ? File Name: [id number] ? Catheterization Order Number: [id number] ? [facility] ? Final Report [place], [place] ? Patient Name: ? Samy Jr. S. Schartner ?ID#: ?[id number] ? : ?1965 ? Procedure Date: ? December 29, 2020 ? Case #: ? [id number] ? Room: ? 1 ? Case Physician: ? Snehal Walker M.D. ? Start: ?12:24 ?Fellow: ? Yves Fernandez M.D. ?Admission: ??12/29/2020 ? Referring Physician: ??Eileen Kingston M.D. ? Procedures: ?* Coronary Angiography ?* Left Heart Catheterization ? History ?Samy Jr. Bruna Patricio is a 55 year old man. He has hypertension and a ?family history of coronary artery disease. The patient's smoking status ?is Current with Current - Every Day frequency, using cigarettes. ?Cigarette use is Heavy (>=10/day). He has hypercholesterolemia managed ?with lipid therapy. The patient has diabetes managed with oral ?medication. He has sequelae from diabetes. The patient has a prior ?history of coronary artery disease. He is status post a remote myocardial ?infarction. The patient had a remote coronary intervention procedure. ?Prior to the initiation of this procedure, the patient was designated as ?ASA Class III. The [facility] clinical frailty scale is 4: Vulnerable. ? Diagnostic Tests: ?Electrocardiography: ? EKG was assessed by ECG. EKG was Abnormal. EKG showed ST Deviation ? >= 0.5 mm. ?Medications Prior to Procedure: ? Aspirin, Beta Alejandra, Long Acting Nitrate and Statin. ? Indications for Diagnostic Cath: ?The priority of the diagnostic procedure was Elective. The indication for ?the lab engineer visit is worsening angina. Chest pain symptom [...] 6Fr ?JR 4 catheter. 8,000 units of heparin were administered. A total of 100cc ?of Omnipaque were opened, 75cc of Omnipaque were administered and 25cc of ?Omnipaque were wasted. Radiation: Fluoro time was 6.6 minutes, dose area ?product was 60,800 mGYcm2 and air kerma was [...] diffuse (<=25% stenosis) disease of the proximal ? segment of the left circumflex artery (LCX). ??The previously placed ? stent is patent. The mid segment of the LCX had a long segmental 40% ? stenosis. ??The distal vessel was small. ?Right Coronary Artery ? There was mild diffuse (<=25% stenosis) disease of the proximal ? segment of the right coronary artery (RCA). ??The RCA was moderate in ? size. ??The previously placed stent is patent. The mid segment of the ? RCA had mild diffuse (<=25% stenosis) disease. ??There also was mild ? diffuse (<=25% stenosis) disease of the distal segment of the RCA ? and it was calcified. ? Vascular Access: ?Vascular Access Management: ? Mechanical Compression of the right radial artery access site was ? performed. ? Conclusions: ?* Nonobstructive coronary artery disease ?* Elevated left ventricular end diastolic pressure ?* Patent previously placed stents in proximal RCA and proximal LCX. ?* No significant change in coronary anatomy on direct comparison with ?prior study (post PCI) July 2019. ? Complications/Events: ?The patient had no complications during these procedures. ?The attending physician was present for the entire procedure. ?Dr. Snehal Walker M.D. was present during the moderate sedation ?intraservice time as documented by the sedation nurse. ??Case time = 00:24. ?Dr. Snehal Walker M.D. performed the coronary angiography and left heart ?catheterization. ? Snehal Walker M.D. ? Electronically Signed by: Snehal Walker M.D. ? Report Finalized: 12/29/2020 ??16:17 ? Procedure Note Snehal Walker MD - 12/29/2020 [facility] Cardiac Catheterization/Intervention Report Patient Name: Samy Patricio Jr. Procedure Date: 12/29/2020 A #: [id number] Primary Physician: Snehal Walker Case #: [id number] File Name: [id number] Catheterization Order Number: [id number] [facility] FinalReport [place], [place] Patient Name: Samy Patricio ID#:[id number] :1965 Procedure Date: December 29, 2020 Case #: [id number] Room: 1 Case Physician: Snehal Walker M.D. Start: 12:24 Fellow: Yves Fernandez M.D. Admission:12/29/2020 Referring Physician: Eileen Kingston M.D. Procedures: * Coronary Angiography * Left Heart Catheterization History Samy Patricio is a 55 year old man. He has hypertension alla family history of coronary artery disease. The patient's smokingstatus is Current with Current - Every Day frequency, using cigarettes. Cigarette use is Heavy (>=10/day). He has hypercholesterolemiamanaged with lipid therapy. The patient has diabetes managed with oral medication. He has sequelae from diabetes. The patient has a prior history of coronary artery disease. He is status post a remotemyocardial infarction. The patient had a remote coronary interventionprocedure. Prior to the initiation of this procedure, the patient wasdesignated as ASA Class III. The [facility] clinical frailty scale is 4: Vulnerable. Diagnostic Tests: Electrocardiography: EKG was assessed by ECG. EKG was Abnormal. EKG showed STDeviation >= 0.5 mm. Medications Prior to Procedure: Aspirin, Beta Alejandra, Long Acting Nitrate and Statin. Indications for Diagnostic Cath: The priority of the diagnostic procedure was Elective. Theindication for the lab engineer visit is worsening angina. Chest pain symptomassessment was: Typical Angina. Technique: A 6 SLFr sheath was inserted in the right radial artery utilizingthe Seldinger technique. The left coronary artery was injected utilizinga 6Fr JL 3.5 catheter. A 6Fr JR 4 catheter was used to inject theright coronary artery. Left ventricular pressure was performed utilizing a6Fr JR 4 catheter. 8,000 units of heparin were administered. A total hk805si of Omnipaque were opened, 75cc of Omnipaque were administered fpa39fn of Omnipaque were wasted. Radiation: Fluoro time was 6.6 minutes, dosearea product was 60,800 mGYcm2 and air kerma was 862 mGY. See the caselog for additional details. The patient received the following medications prior to and duringthe procedure: Unfractionated Heparin. Hemodynamics: Left Heart Pressures Resting: Syst Diast EDP a v m Ao 125 80 95 LV 125 28 Coronary Angiography: Dominance: Right Left Main The left main was normal, free of disease. Left Anterior Descending There was mild diffuse (<=25% stenosis) disease of the entirevessel segment of the left anterior descending artery (LAD). The LADwas moderate in size. The mid segment of the LAD had a longsegmental 40% stenosis. Left Circumflex There was mild diffuse (<=25% stenosis) disease of the proximal segment of the left circumflex artery (LCX). The previouslyplaced stent is patent. The mid segment of the LCX had a longsegmental 40% stenosis. The distal vessel was small. Right Coronary Artery There was mild diffuse (<=25% stenosis) disease of the proximal segment of the right coronary artery (RCA). The RCA wasmoderate in size. The previously placed stent is patent. The mid segmentof the RCA had mild diffuse (<=25% stenosis) disease. There also wasmild diffuse (<=25% stenosis) disease of the distal segment of theRCA and it was calcified. Vascular Access: Vascular Access Management: Mechanical Compression of the right radial artery access sitewas performed. Conclusions: * Nonobstructive coronary artery disease * Elevated left ventricular end diastolic pressure * Patent previously placed stents in proximal RCA and proximal LCX. * No significant change in coronary anatomy on direct comparisonwith prior study (post PCI) July 2019. Complications/Events: The patient had no complications during these procedures. The attending physician was present for the entire procedure. Dr. Snehal Walker M.D. was present during the moderate sedation intraservice time as documented by the sedation nurse. Case time =00:24. Dr. Snehal Walker M.D. performed the coronary angiography and leftheart catheterization. Snehal Walker M.D. Electronically Signed by: Snehal Walker M.D. Report Finalized: 12/29/2020 16:17 Snehal Walker MD CARDIAC CATH ORDERAB LES * POCT Glucose (12/29/2020 12:32 PM EDT) [facility] Glucose, POC 152 65 - 199 mg/dL [facility] Comment: Supplemental ranges: <140 mg/dL before meals <180 mg/dL all other times of the day Blood 12/29/2020 12:3 2 PM EDT 12/29/2020 12:32 PM EDT Snehal Walker MD POINT OF CARE TEST O RDERABLES Performing Organization Address City/[facility]/ZIP Co de Phone Number [facility] [place] [address] * Differential, Automated (12/29/2020 10:19 AM EDT) Neutrophil % 63.2 % [facility] Neutrophil Absolute 4.73 1.70 - 6.10 x10(3)/[facility] Lymph % 25.2 % [facility] Lymphocytes Abs 1.9 0.9 - 3.2 x10(3)/[facility] Monocyte % 7.7 % [facility] Monocyte Abs 0.6 0.3 - 0.9 x10(3)/[facility] Eos % 2.5 % [facility] Eosinophils Abs 0.2 0.0 - 0.4 x10(3)/[facility] Basophil % 0.9 % [facility] Baso Absolute 0.1 0.0 - 0.1 x10(3)/[facility] Immature Gran % 0.50 % [facility] Comment: Immature granulocytes(IG's)percentage and absolute count will include metamyelocytes, myelocytes, and promyelocytes. Blood smears from CBCs yielding IG's will be scanned manually for concordance. If this scan disagrees with the automated IG or if promyelocytes are noted, a manual differential will be performed. Immature Gran Absolute 0.04 0.00 - 0.04 x10(3)/[facility] Blood 12/29/2020 10:1 9 AM EDT 12/29/2020 10:43 AM EDT Narrative Resulting Agency Comment Spec In Lab Royce [facility] HEMATOLOGY ORDERABLE S Performing Organization Address City/[facility]/ZIP Co de Phone Number [facility] [place] [address] * (ABNORMAL) Hemogram (12/29/2020 10:19 AM EDT) White Blood Cell 7.5 4.0 - 9.5 x10(3)/ L [facility] Red Blood Cell 4.53(L) 4.58 - 5.54 x10(6)/ L [facility] Hemoglobin 14.4 13.7 - 16.5 g/dL [facility] Hematocrit 42.6 40.5 - 48.5 % [facility] Mean Cell Volume 94.0(H) 82.9 - 93.1 fL [facility] Mean Cell Hemoglobin 31.8 27.5 - 32.1 pg [facility] Mean Cell Hemoglobin Concentration 33.8 32.0 - 35.7 g/dL [facility] Platelet 205 145 - 357 x10(3)/[facility] LABORATORY RDW Standard Deviation 42.9 36.0 - 45.0 [facility] RDW coefficient of variation 12.4 11.4 - 13.8 % [facility] Mean Platelet Volume 10.0 7.6 - 12.9 [facility] LAB[facility]ATORY NRBC% auto 0.0 % [facility] NRBC Absolute 0.000 0.000 - 0.000 x10(3)/[facility] LAB[facility] Blood 12/29/2020 10:1 9 AM EDT 12/29/2020 10:43 AM EDT Narrative Resulting Agency Comment Spec In Lab Royce WALTON HEMATOLOGY ORDERABLE S [facility] [place] [address] * (ABNORMAL) BMP w/fasting Glucose (12/29/2020 10:19 AM EDT) Glucose Fasting 252(H) 65 - 99 mg/dL [facility] Comment: ?Fasting* Glucose Interpretive Criteria [...] of Diabetes Mellitus, Position Statement from the [place] [employer]. ??Diabetes Care, Volume 33, Supplement 1, Mar 2009 Blood Urea Nitrogen 13 10 - 20 mg/dL [facility] Creatinine 1.09 0.80 - 1.50 mg/dL [facility] Sodium 138 135 - 145 mmol/L [facility] Potassium 4.2 3.5 - 5.0 mmol/L [facility] Comment: Please note: ??Patients with WBC >100,000 may have falsely elevated Potassium levels. ??For accurate Potassium quantification in these patients send serum separator tube (gold top) for subsequent determinations. ??Contact the Clinical Chemistry Laboratory if there are any questions. Chloride 101 98 - 107 mmol/L [facility] Carbon Dioxide 29 22 - 31 mmol/L [facility] Anion Gap 8 5 - 15 mmol/L [facility] Calcium 9.3 8.5 - 10.5 mg/dL [facility] Est Glomerular Filtration Rate 77 >=60 mL/min/1. 73 m?? [facility] Comment: This patient? s estimated glomerular filtration rate (eGFR) is between 77 mL/min/1.73 m2 (patients with less muscle mass per kg body weight) and 89 mL/min/1.73 m2 (patients with more muscle mass per kg body weight) as determined by the CKD-EPI equation. Assessment of eGFR is not appropriate when creatinine concentrations are rapidly changing. For clinical decisions where creatinine clearance will affect therapy, a 24-hour urine creatinine clearance may be advised. Assignment of CKD stage 1 - 5 for patients with an eGFR near the transition point between stages may be based on clinical assessment of muscle mass and symptoms in addition to eGFR. Blood 12/29/2020 10:1 9 AM EDT 12/29/2020 10:43 AM EDT Narrative Resulting Agency Comment Spec In Lab Snehal Walker MD CHEMISTRY ORDERABLES Performing Organization Address [facility]/ZIP Co de Phone Number [facility] [place] [address] * EKG 12 Lead (12/29/2020 10:18 AM EDT) Ventricular rate 79 BPM MUSE SYSTEM Atrial Rate 79 BPM MUSE SYSTEM P-R Interval 168 ms MUSE SYSTEM QRS Duration 88 ms MUSE SYSTEM Q-T Interval 374 ms MUSE SYSTEM QTC Calculated (Bezet) 428 ms MUSE SYSTEM Calculated P [place] 60 degrees MUSE SYSTEM Calculated R [place] 56 degrees MUSE SYSTEM Calculated T [place] 39 degrees MUSE SYSTEM INTERPRETATION Normal sinus rhythm Normal ECG When compared with ECG of 07-AUG-2019 08:57, T wave inversion no longer evident in Inferior leads Confirmed by MD Bobbi, Derrick ([id number]) on 12/29/2020 2:14:13 PM MUSE SYSTEM 12/29/2020 10:1 8 AM EDT 12/29/2020 2:14 PM EDT Snehal Walker MD ECG ORDERABLES Performing Organization Address [facility] de Phone Number MUSE SYSTEM * (ABNORMAL) POCT Glucose (12/29/2020 9:50 AM EDT) Glucose, POC 262(H) 65 - 199 mg/dL [facility] Comment: Supplemental ranges: <140 mg/dL before meals <180 mg/dL all other times of the day Blood 12/29/2020 9:50 AM EDT 12/29/2020 9:50 AM EDT Snehal Walker MD POINT OF CARE TEST O RDERABLES Performing Organization Address [facility]/ZIP Co de Phone Number [facility] [place] [address] documented in this encounter Visit Diagnoses Diagnosis Screening for cardiovascular condition Screening for other and unspecified cardiovascular conditions Coronary artery disease, unspecified vessel or lesion type, unspecified whether angina present, unspecified whether wainwright or transplanted heart Chest discomfort Other chest pain Screening for cardiovascular condition Screening for other and unspecified cardiovascular conditions Coronary artery disease, unspecified vessel or lesion type, unspecified whether angina present, unspecified whether wainwright or transplanted heart Chest discomfort Other chest pain documented in this encounter Administered Medications Inactive Administered Medications - up to 3 most recent administrations Medication Order MAR Action Action Date Dose Rate Site fentaNYL (pf) (50 mcg/mL) multi-dose injection ONCE PRN, Starting on Mon12/29/20 at 1222, Until Mon12/29/20 at 1247, Intra-Operative (Intra-Procedure), Routine Given 12/29/2020 12:22 PM EDT 25 mcg heparin (porcine) (1,000 units/mL) injection ONCE PRN, Starting on Mon12/29/20 at 1226, Until Mon12/29/20 at 1247, Cath (Intra-Procedure), Routine Given 12/29/2020 12:26 PM EDT 6,000 Units iohexoL (Omnipaque) (350 mg/mL) injection solution ONCE PRN, Starting on Mon12/29/20 at 1244, Until Mon12/29/20 at 1247, Cath (Intra-Procedure), Routine Given 12/29/2020 12:44 PM EDT 75 mLs lidocaine (Xylocaine) 1% (10 mg/mL) injection 3 mg 3 mg (0.3 mL), Subcutaneous, ONCE PRN, 1 dose, Starting on Mon12/29/20 at 1004, Until Mon12/29/20 at 1040, with discomfort with PIV insertion, Cath (Day of Procedure), Routine Given 12/29/2020 10:40 AM EDT 3 mg midazolam (pf) (Versed) (1 mg/mL) multi-dose injection ONCE PRN, Starting on Mon12/29/20 at 1222, Until Mon12/29/20 at 1247, Cath (Intra-Procedure), Routine Given 12/29/2020 12:22 PM EDT 1 mg nitroGLYcerin 100 mcg/mL intracoronary dilution ONCE PRN, Starting on Mon12/29/20 at 1224, Until Mon12/29/20 at 1247, Cath (Intra-Procedure), Routine Given 12/29/2020 12:24 PM EDT 150 mcg sodium chloride 0.9% infusion 50 mL/hr, Intravenous, CONTINUOUS, Starting on Mon12/29/20 at 1030, Until Mon12/29/20 at 1229, Cath (Day of Procedure) New Bag 12/29/2020 10:41 AM EDT 50 mL/hr 50 mL/hr verapamiL (Isoptin) (2.5 mg/mL) injection ONCE PRN, Starting on Mon12/29/20 at 1224, Until Mon12/29/20 at 1247, Administer over 2 Minutes, Cath (Intra-Procedure) Given 12/29/2020 12:24 PM EDT 2.5 mg documented in this encounter Active and Recently Administered Medications Times are shown in EDT. Continuous Medication Order 12/27/2020 12/28/2020 12/29/2020 sodium chloride 0.9% infusion () 50 mL/hr, Intravenous, CONTINUOUS, Starting on Mon12/29/20 at 1030, Until Mon12/29/20 at 1229, Cath (Day of Procedure) 1041 (New Bag - Prov ider: Nathaniel Ulloa RN) sodium chloride 0.9% infusion 1 mL/hr, Intravenous, CONTINUOUS, Starting on Mon12/29/20 at 1315, Until Mon12/29/20 at 1414, Recovery (Recovery-Hospital Unit) 1315 (Due) PRN Medication Order 12/27/2020 12/28/2020 12/29/2020 fentaNYL (pf) (50 mcg/mL) multi-dose injection (CANCELED) ONCE PRN, Starting on Mon12/29/20 at 1222, Until Mon12/29/20 at 1247, Intra-Operative (Intra-Procedure), Routine 1222 (Given - Provid er: Molly Escobar RN) heparin (porcine) (1,000 units/mL) injection (CANCELED) ONCE PRN, Starting on e 12/29/20 at 1226, Until e 12/29/20 at 1247, Cath (Intra-Procedure), Routine 1226 (Given - Provid er: Molly Escobar RN) iohexoL (Omnipaque) (350 mg/mL) injection solution (CANCELED) ONCE PRN, Starting on Mon12/29/20 at 1244, Until Mon12/29/20 at 1247, Cath (Intra-Procedure), Routine 1244 (Given - Provid er: Snehal Walker MD) lidocaine (Xylocaine) 1% (10 mg/mL) injection 3 mg (COMPLETED) 3 mg (0.3 mL), Subcutaneous, ONCE PRN, 1 dose, Starting on Mon12/29/20 at 1004, Until Mon12/29/20 at 1040, with discomfort with PIV insertion, Cath (Day of Procedure), Routine 1040 (Given - Provid er: Nathaniel Ulloa RN) midazolam (pf) (Versed) (1 mg/mL) multi-dose injection (CANCELED) ONCE PRN, Starting on Mon12/29/20 at 1222, Until Mon12/29/20 at 1247, Cath (Intra-Procedure), Routine 1222 (Given - Provid er: Molly Escobar RN) nitroGLYcerin 100 mcg/mL intracoronary dilution (CANCELED) ONCE PRN, Starting on Mon12/29/20 at 1224, Until Mon12/29/20 at 1247, Cath (Intra-Procedure), Routine 1224 (Given - Provid er: Yves Fernandez MD) verapamiL (Isoptin) (2.5 mg/mL) injection (CANCELED) ONCE PRN, Starting on Mon12/29/20 at 1224, Until Mon12/29/20 at 1247, Administer over 2 Minutes, Cath (Intra-Procedure) 1224 (Given - Provid er: Yves Fernandez MD) documented in this encounter Care Teams Relay Telegrapher Relationship Specialty Start Date End Date Robinson Vazquez, AGRICULTURAL ENGINEERING TEACHER [address] [place] [address] PCP - General Family Medicine 12/11/20 10/03/22 documented as of this encounter
--- OUTSIDE RECORDS SUMMARY | 2023-10-24 16:00 | XMS_ITS | Encounter Summary ---
[place] [address] Care Team Providers Care Postal Service Window Clerk Name Role Phone Robinson Vazquez APRN Primary Care Provider [phone]- [phone] Encounter Details Date Type Department Care Team (Latest Contact Info) Description 12/29/2020 8:30 AM EDT - 12/29/2020 3:12 PM EDT Hospital Encounter [place] [id number] Snehal Dia MD [facility] [place] [address] Screening for cardiovascular condition; Coronary artery disease, unspecified vessel or lesion type, unspecified whether angina present, unspecified whether stillaguamish or transplanted heart; Chest discomfort Discharge Disposition: Home Social History Tobacco Use [...] 12/29/2020 9:46 AM ED T Respiratory Rate 24 12/29/2020 2:45 PM EDT [...] Your Primary Care Provider: Sae Marr MD [phone] For questions regarding this document or issues relating to this hospitalization on the Medical Service, please contact your inpatient physician through the [facility] . Issues afterhours and on weekends will [...] TEST BLOOD GLUCOSE TWICE A DAY 06/23/2020 orcfbnlvkpx-hmltknupo-y ilanter 100-62.5-25 mcg Disk with Device Inhale 1 puff into the lungs daily. Trelligru Ellipta Lantus Solostar U-100 Insulin pen 80 Units. 08/19/2020 humaLOG KwikPen 100 unit/mL Insulin Pen 200 Units. 09/08/2020 insulin needles, disposable, 31 gauge x /16 Needle 03/19/2019 tamsulosin (Flomax) 0.4 mg Capsule [...] date: 12/29/2020 Attending Physician: Snehal Dia MD [facility] Interventional Cardiology Adult Pre-Procedure H&P Update: Mr Samy Patricio [id number] 1965 Chief Complaint: Chest discomfort HPI: Samy Patricio Jr. is a 55 y.o. male referred for cardiac catheterization By his blocker automatic in the [place] Dr BRITT Kingston ([facility]) for evaluation of coronary artery anatomy and [...] GERD/ Barretts DM SOCIAL Hx: Lives in [facility] Outpatient Medications Marked as Taking for the 12/29/20 encounter (Hospital Encounter) Medication Sig Dispense Refill ??? kltbjrkhtfd-umeezbmga-oehhxoch 100-62.5-25 mcg Disk with Device 1 puff [...] ISABELLE Jackson Interventional Cardiology 12/29/20 10:12 AM [facility] Pager: [phone] documented in this encounter Miscellaneous Notes * Brief Op Note - Snehal Dia MD - 12/29/2020 12:52 PM EDT Preliminary Cardiac Catheterization Procedure Note: Patient Name: Samy Patricio Jr. : [id number] MR#: [id number] Case Date: 12/29/2020 Three Knife Trimmer: Surgeon(s) and Role: * Snehal Dia MD [...] 10:00 AM EST Office [place] [address] Tania Gates OD [facility] [place] [address] documented as of this encounter Procedures Procedure Name Priority Date/Time Associated Diagnosis Comments POCT GLUCOSE Routine 01/26/2021 7:22 AM EST CARDIAC CATHETERIZATION Routine 12/29/2020 12:50 PM EDT Screening for cardiovascular condition Coronary artery disease, unspecified vessel or lesion type, unspecified whether angina present, unspecified whether stillaguamish or transplanted heart Chest discomfort POCT GLUCOSE [...] type, unspecified whether angina present, unspecified whether stillaguamish or transplanted heart Chest discomfort POCT GLUCOSE Routine 12/29/2020 9:50 AM EDT documented in this encounter Results * POCT Glucose (01/26/2021 7:22 AM EST) [facility] Glucose, POC 143 65 - 199 mg/dL [facility] Comment: Supplemental ranges: <140 mg/dL before meals <180 mg/dL all other times of the day Blood 01/26/2021 7:22 AM EST 01/26/2021 7:22 AM EST Snehal Dia MD POINT OF CARE TEST O RDERABLES Performing Organization Address City/State/[facility] Co de Phone Number [facility] [place] [address] * CARDIAC CATHETERIZATION (12/29/2020 12:50 PM EDT) Anatomical Region Laterality Modality Other Narrative 12/29/2020 4:24 PM EDT ?[facility] ? Cardiac Catheterization/Intervention Report ? Patient Name: Sheng, Samy Jr. S. ? Procedure Date: 12/29/2020 ? A #: [id number] ? Primary Physician: Snehal Dia ? Case #: [id number] ? File Name: [id number] ? Catheterization Order Number: [id number] ? [facility] ? Final Report [place], [place] ? Patient Name: ? Samy Jr. S. Sheng ?ID#: ?[id number] ? : ?1965 ? Procedure Date: ? December 29, 2020 ? Case #: ? [id number] ? Room: ? 1 ? Case Physician: ? Snehal Dia M.D. ? Start: ?12:24 ?Fellow: ? Yves Fernandez M.D. ?Admission: ??12/29/2020 ? Referring Physician: ??Eileen Kingston M.D. ? Procedures: ?* Coronary Angiography ?* Left Heart Catheterization ? History ?Samy AcostaJenn Patricio is a 55 year old man. [...] was designated as ?ASA Class III. The HA clinical frailty scale is 4: Vulnerable. ? Diagnostic Tests: ?Electrocardiography: ? EKG was assessed by ECG. EKG was Abnormal. EKG showed ST Deviation ? >= 0.5 mm. ?Medications Prior to Procedure: ? Aspirin, Beta Alejandra, Long Acting Nitrate and Statin. ? Indications for Diagnostic Cath: ?The priority of the diagnostic procedure was Elective. The indication for ?the cathode builder visit is worsening angina. Chest pain symptom [...] present for the entire procedure. ?Dr. Snehal Dia M.D. was present during the moderate sedation ?intraservice time as documented by the sedation nurse. ??Case time = 00:24. ?Dr. Snehal Dia M.D. performed the coronary angiography and left heart ?catheterization. ? Snehal Dia M.D. ? Electronically Signed by: Snehal Dia M.D. ? Report Finalized: 12/29/2020 ??16:17 ? Procedure Note Snehal Dia MD - 12/29/2020 [facility] Cardiac Catheterization/Intervention Report Patient Name: Samy Patricio Jr. Procedure Date: 12/29/2020 A #: [id number] Primary Physician: Snehal Dia Case #: [id number] File Name: [id number] Catheterization Order Number: [id number] [facility] FinalReport [place], [place] Patient Name: Samy Patricio ID#:[id number] :1965 Procedure Date: December 29, 2020 Case #: [id number] Room: 1 Case Physician: Snehal Dia M.D. Start: 12:24 Fellow: Yves Fernandez M.D. [...] patient wasdesignated as ASA Class III. The [facility] clinical frailty scale is 4: Vulnerable. Diagnostic Tests: Electrocardiography: EKG was assessed by ECG. EKG was Abnormal. EKG showed STDeviation >= 0.5 mm. Medications Prior to Procedure: Aspirin, Beta Alejandra, Long Acting Nitrate and Statin. Indications for Diagnostic Cath: The priority of the diagnostic procedure was Elective. Theindication for the cathode builder visit is worsening angina. Chest pain symptomassessment [...] units of heparin were administered. A total [id number] of Omnipaque were opened, 75cc of Omnipaque were administered [id number] of Omnipaque were wasted. Radiation: Fluoro time [...] procedure. Dr. Snehal Dia M.D. was present during the moderate sedation intraservice time as documented by the sedation nurse. Case time =00:24. Dr. Snehal Dia M.D. performed the coronary angiography and leftheart catheterization. Snehal Dia M.D. Electronically Signed by: Snehal Dia M.D. Report Finalized: 12/29/2020 16:17 Snehal Dia MD CARDIAC CATH ORDERAB LES * POCT Glucose (12/29/2020 12:32 PM EDT) [facility] Glucose, POC 152 65 - 199 mg/dL [facility] Comment: Supplemental ranges: <140 mg/dL before meals <180 mg/dL all other times of the day Blood 12/29/2020 12:3 2 PM EDT 12/29/2020 12:32 PM EDT Snehal Dia MD POINT OF CARE TEST O RDERABLES [facility] [place] [address] * Differential, Automated (12/29/2020 10:19 AM EDT) Neutrophil % 63.2 % [facility] Neutrophil Absolute 4.73 1.70 - 6.10 x10(3)/[facility] Lymph % 25.2 % [facility] Lymphocytes Abs 1.9 0.9 - 3.2 x10(3)/[facility] Monocyte % 7.7 % [facility] Monocyte Abs 0.6 0.3 - 0.9 x10(3)/[facility] Eos % 2.5 % [facility] Eosinophils Abs 0.2 0.0 - 0.4 x10(3)/[facility] Basophil % 0.9 % [facility] Baso Absolute 0.1 0.0 - 0.1 x10(3)/[facility] Immature Gran % 0.50 % [facility] Comment: Immature granulocytes(IG's)percentage and absolute count will include metamyelocytes, myelocytes, and promyelocytes. Blood smears from CBCs yielding IG's will be scanned manually for concordance. If this scan disagrees with the automated IG or if promyelocytes are noted, a manual differential will be performed. Immature Gran Absolute 0.04 0.00 - 0.04 x10(3)/[facility] Blood 12/29/2020 10:1 9 AM EDT 12/29/2020 10:43 AM EDT Narrative Resulting Agency Comment Spec In Lab [facility] ORDERABLE S [facility] [place] [address] * (ABNORMAL) Hemogram (12/29/2020 10:19 AM EDT) White Blood Cell 7.5 4.0 - 9.5 x10(3)/[facility]ORAT[facility] Red Blood Cell 4.53(L) 4.58 - 5.54 x10(6)/[facility] Hemoglobin 14.4 13.7 - 16.5 g/dL [facility] Hematocrit 42.6 40.5 - 48.5 % [facility] Mean Cell Volume 94.0(H) 82.9 - 93.1 fL [facility] Mean Cell Hemoglobin 31.8 27.5 - 32.1 pg [facility] Mean Cell Hemoglobin Concentration 33.8 32.0 - 35.7 g/dL [facility] Platelet 205 145 - 357 x10(3)/[facility] LABORATORY RDW Standard Deviation 42.9 36.0 - 45.0 [facility] RDW coefficient of variation 12.4 11.4 - 13.8 % [facility] Mean Platelet Volume 10.0 7.6 - 12.9 [facility] NRBC% auto 0.0 % [facility] NRBC Absolute 0.000 0.000 - 0.000 x10(3)/[facility] Blood 12/29/2020 10:1 9 AM EDT 12/29/2020 10:43 AM EDT Narrative Resulting Agency Comment Spec In Lab Royce [facility]AT[facility] ORDERABLE S [facility] [place] [address] * (ABNORMAL) BMP w/fasting Glucose (12/29/2020 10:19 AM EDT) Glucose Fasting 252(H) 65 - 99 mg/dL [facility] Comment: ?Fasting* Glucose Interpretive Criteria [...] of Diabetes Mellitus, Position Statement from the [place] [employer]. ??Diabetes Care, Volume 33, Supplement 1, Mar 2009 Blood Urea Nitrogen 13 10 - 20 mg/dL [facility] Creatinine 1.09 0.80 - 1.50 mg/dL [facility] Sodium 138 135 - 145 mmol/L [facility] Potassium 4.2 3.5 - 5.0 mmol/L [facility] Comment: Please note: ??Patients with WBC >100,000 may have falsely elevated Potassium levels. ??For accurate Potassium quantification in these patients send serum separator tube (gold top) for subsequent determinations. ??Contact the Clinical Chemistry Laboratory if there are any questions. Chloride 101 98 - 107 mmol/L [facility] Carbon Dioxide 29 22 - 31 mmol/L [facility] Anion Gap 8 5 - 15 mmol/L [facility] Calcium 9.3 8.5 - 10.5 mg/dL [facility] Est Glomerular Filtration Rate 77 >=60 mL/min/1. 73 m?? [facility] Comment: This patient? s estimated [...] Dia MD CHEMISTRY ORDERABLES Performing Organization Address [facility] de Phone Number [facility] [place] [address] * EKG 12 Lead (12/29/2020 10:18 AM EDT) Ventricular rate 79 BPM MUSE SYSTEM Atrial Rate 79 BPM MUSE SYSTEM P-R Interval 168 ms MUSE SYSTEM QRS Duration 88 ms MUSE SYSTEM Q-T Interval 374 ms MUSE SYSTEM QTC Calculated (Bezet) 428 ms MUSE SYSTEM Calculated P Graton 60 degrees MUSE SYSTEM Calculated R Graton 56 degrees MUSE SYSTEM Calculated T Graton 39 degrees MUSE SYSTEM INTERPRETATION Normal sinus rhythm Normal ECG When compared with ECG of 07-AUG-2019 08:57, T wave inversion no longer evident in Inferior leads Confirmed by MD Bobbi, Derrick ([id number]) on 12/29/2020 2:14:13 PM MUSE SYSTEM 12/29/2020 10:1 8 AM EDT 12/29/2020 2:14 PM EDT Snehal Dia MD ECG ORDERABLES Performing Organization Address [facility] Phone Number MUSE SYSTEM * (ABNORMAL) POCT Glucose (12/29/2020 9:50 AM EDT) Glucose, POC 262(H) 65 - 199 mg/dL [facility] Comment: Supplemental ranges: <140 mg/dL before meals <180 mg/dL all other times of the day Blood 12/29/2020 9:50 AM EDT 12/29/2020 9:50 AM EDT Snehal Dia MD POINT OF CARE TEST O RDERABLES [facility] [place] [address] documented in this encounter Visit Diagnoses Diagnosis Screening for cardiovascular condition Screening for other and unspecified cardiovascular conditions Coronary artery disease, unspecified vessel or lesion type, unspecified whether angina present, unspecified whether stillaguamish or transplanted heart Chest discomfort Other chest pain Screening for cardiovascular condition Screening for other and unspecified cardiovascular conditions Coronary artery disease, unspecified vessel or lesion type, unspecified whether angina present, unspecified whether stillaguamish or transplanted heart Chest discomfort Other chest pain documented in this encounter Administered Medications Inactive Administered Medications - up to 3 most recent administrations Medication Order MAR Action Action Date Dose Rate Site lidocaine (Xylocaine) 1% (10 mg/mL) injection 3 mg 3 mg (0.3 mL), Subcutaneous, ONCE PRN, 1 dose, Starting on Mon12/29/20 at 1004, Until Mon12/29/20 at 1040, with discomfort with PIV insertion, Cath (Day of Procedure), Routine Given 12/29/2020 10:40 AM EDT 3 mg sodium chloride 0.9% infusion 50 mL/hr, Intravenous, CONTINUOUS, Starting on Mon12/29/20 at 1030, Until Mon12/29/20 at 1229, Cath (Day of Procedure) New Bag 12/29/2020 10:41 AM EDT 50 mL/hr 50 mL/hr documented in this encounter Active and Recently [...] units/mL) injection (CANCELED) ONCE PRN, Starting on Mon12/29/20 at 1226, Until Mon12/29/20 at 1247, Cath (Intra-Procedure), Routine 122 (Given - Provid er: Molly Escobar RN) iohexoL (Omnipaque) (350 mg/mL) injection solution (CANCELED) ONCE PRN, Starting on Mon12/29/20 at 1244, Until Mon12/29/20 at 1247, Cath (Intra-Procedure), Routine 124 (Given - Provid er: Snehal Dia MD) lidocaine (Xylocaine) 1% (10 mg/mL) injection [...] Until Mon12/29/20 at 1247, Cath (Intra-Procedure), Routine 122 (Given - Provid er: Molly Escobar RN) nitroGLYcerin 100 mcg/mL intracoronary dilution (CANCELED) ONCE PRN, Starting on Mon12/29/20 at 1224, Until Mon12/29/20 at 1247, Cath (Intra-Procedure), Routine 122 (Given - Provid er: Yves Fernandez MD) verapamiL (Isoptin) (2.5 mg/mL) injection (CANCELED) ONCE PRN, Starting on Mon12/29/20 at 1224, Until Mon12/29/20 at 1247, Administer over 2 Minutes, Cath (Intra-Procedure) 1224 (Given - Provid er: Yves Fernandez MD) documented in this encounter Care Teams Postal Service Window Clerk Relationship Specialty Start Date End Date Robinson Vazquez, JOVANI [address] [place] [address] PCP - General Family Medicine 12/11/20 10/03/22 documented as of this encounter
--- OUTSIDE RECORDS SUMMARY | 2023-10-24 16:00 | XMS_ITS | Encounter Summary ---
[place] [address] Care Team Providers Care Fire Extinguisher Sprinkler Inspector Name Role Phone Robinson Vazquez APRN Primary Care Provider [phone]- [phone] Encounter Details Date Type Department Care Team (Latest Contact Info) Description 01/26/2021 6:12 AM EST - 01/26/2021 9:03 AM EST Hospital Encounter [place] [id number] Nathaniel Azevedo MD [facility] [place] [address] Discharge Disposition: Home Social History Tobacco Use [...] 36.8 ??C (98.2 ??F) 01/26/2021 7:05 AM ES T Respiratory Rate 18 01/26/2021 8:30 AM EST Oxygen Saturation 96% 01/26/2021 8:41 AM EST Inhaled Oxygen Concentration - - Weight 136.5 kg (301 lb) 01/26/2021 7:05 AM EST Height 182.9 cm (6') 01/26/2021 7:05 AM EST Body Mass Index 40.82 01/26/2021 7:05 AM EST documented in this encounter Discharge Instructions * Discharge Instructions* Irene Escalante RN - 01/26/2021 8:13 AM EST Upper GI Endoscopy: What to Expect at Home Your Recovery You will be able to go home after your doctor or nurse checks to make sure you are not having any problems. You may have to stay overnight if you had treatment during the test. You may have a sore throat fora day or two after the test. This [...] and when to start taking those medicines again. Make sure that you understand exactly what your [...] the day after the procedure, use an uafd-wsk-mprvifq spray to numb your throat. Sucking on throat lozenges and gargling with [...] occurs, please contact your Doctor. Please call [phone] before 8pm Mon-Fri with problems, questions or concerns. If you call after 8pm or on weekends, call the Hospital at [phone] and ask to speak to the Salvage Clerk production illustrator and the lumber kiln operator will contact that person for you. When should you call for help? Call [phone] anytime you think you may need emergency [...] any problems. Where can you learn more? [facility] View your After Visit Summary and more online at [email or web address] If you would like to provide [...] cost to you. Content Version: 12.2 ?? 3224-2550 [employer]. Care instructions adapted under license by [facility] [place]. If you have questions about a medical condition or this instruction, always ask your healthcare professional. [employer] disclaims any warranty or liability for your use of this information. documented in this encounter Medications at Time of Discharge Medication Sig Dispensed Refills Start Date End Date acetaminophen (Tylenol) 325 mg tablet every 6 hours as needed. 06/27/2019 OneTouch Verio test strips Strip TEST BLOOD GLUCOSE TWICE A DAY 06/23/2020 OneTouch Verio Flex meter Misc TEST BLOOD GLUCOSE TWICE A DAY 06/23/2020 qzlucdwoprv-jprlnarbz-s ilanter 100-62.5-25 mcg Disk with Device Inhale [...] 11/15/2016 02/24/2022 documented as of this encounter H&P Notes * Luc Wheeler, LEAD TANK MECHANIC - 01/26/2021 6:58 AM EST Patient Name: [...] Wheeler APRN Section of Gastroenterology [place] [address] documented in this encounter Plan of Treatment Upcoming Encounters Date Type Department Care Team (Late st Contact Info) Description 03/20/2024 10:00 AM EST Office [place] [address] Tania Gates [facility] [place] [address] documented as of this encounter Procedures Procedure Name Priority Date/Time Associated Diagnosis Comments SURGICAL PATHOLOGY REPORT Routine 01/26/2021 8:06 AM EST SPECIMEN TO PATHOLOGY Routine 01/26/2021 8:06 AM EST SPECIMEN TO PATHOLOGY Routine 01/26/2021 8:06 AM EST SPECIMEN TO PATHOLOGY Routine 01/26/2021 8:06 AM EST Upper Gi Endoscopy, Biopsy ([id number]) 01/26/2021 7:38 AM EST Dyspepsia UPPER GI ENDOSCOPY Routine 01/26/2021 7: 01 AM EST documented in this encounter Results * Surgical Pathology Report (01/26/2021 8:06 AM EST) Final Diagnosis [id number] ? Location: 4T; EA07; A The signing pathologist has (i) examined the relevant preparation(s) for the specimen(s) and (ii) rendered or confirmed the diagnosis(es). . ?Surgical Pathology DIAGNOSIS A - Gastric biopsy (Multiple): Gastric antral gland mucosa with nonspecific reactive gastropathy. Gastric fundic gland mucosa with nonspecific parietal cell alterations of the type sometimes seen in hypergastrinemic conditions or in patients on PPI therapy. No H. pylori-like microorganism is seen. B - Duodenal biopsy (Multiple): Duodenal mucosa within normal limits, including preserved villous architecture. C - Irregular z line. esophagus, biopsy (Multiple): Squamocolumnar junctional mucosa (cardia type) with mild chronic inflammation and focal ??multilayered epithelium. ??There is no evidence of intestinal metaplasia. Electronically signed by: ?Roxann Hensley MD Verified: ??02/04/2021 0:22 ?? Pathologist Performed at: ??-[facility], [place], [place] SPECIMEN(S) SUBMITTED A - Gastric, biopsy (Multiple) B - Duodenal, biopsy (Multiple) C - Irregular z line. esophagus, biopsy (Multiple) CLINICAL INFORMATION History of dyspepsia, belching, bloating, distention, history of H. pylori SPECIMEN PROCESSING A - Labeled/Fixative: Gastric biopsies, formalin. Quantity/Size: Fragments, 0.2-0.4 cm. Tissue Description: Soft, figuerao-pink tissues. Sections/Processing : Submitted en toto ??in 1 cassette labeled A1. B - Labeled/Fixative: Duodenal biopsies, formalin. Quantity/Size: Three, 0.2-0.3 cm. Tissue Description: Soft, figueroa-pink tissues. Sections/Processing : Submitted en toto ??in 1 cassette labeled B1. C - Labeled/Fixative: Irregular Z line. Esophagus biopsies, formalin. Quantity/Size: Two, 0.2 cm. Tissue Description: Soft, figueroa-pink tissues. Sections/Processing : Submitted en toto ??in 1 cassette labeled C1. ??pps 02/04/2021 12:22 AM EST [facility] GI Biopsy 01/26/2021 8:06 AM EST 01/26/2021 8:06 AM EST GI Biopsy 01/26/2021 8:06 AM EST 01/26/2021 8:06 AM EST GI Biopsy 01/26/2021 8:06 AM EST 01/26/2021 8:06 AM EST Nathaniel Azevedo MD PATHOLOGY/[place] [address] * Specimen to Pathology (01/26/2021 8:06 AM EST) AP Specimen 01/26/2021 8:06 AM EST 01/26/2021 8:06 AM EST Narrative [facility] - 01/26/2021 8:06 AM EST Specimen requisition ordered. ??Separate Pathology report to follow Nathaniel Azevedo MD PATHOLOGY/CYTOLOGY O SAEID [facility] [place] [address] * Specimen to Pathology (01/26/2021 8:06 AM EST) AP Specimen 01/26/2021 8:06 AM EST 01/26/2021 8:06 AM EST Narrative [facility] - 01/26/2021 8:06 AM EST Specimen requisition ordered. ??Separate Pathology report to follow Nathaniel Azevedo MD PATHOLOGY/[place] [address] * Specimen to Pathology (01/26/2021 8:06 AM EST) AP Specimen 01/26/2021 8:06 AM EST 01/26/2021 8:06 AM EST Narrative [facility] - 01/26/2021 8:06 AM EST Specimen requisition ordered. ??Separate Pathology report to follow Nathaniel Azevedo MD PATHOLOGY/CYTOLOGY O SAEID [facility] [place] [address] * UPPER GI ENDOSCOPY (01/26/2021 7:01 AM EST) UPPER GI ENDOSCOPY [facility] Endoscopy Procedure Date: 01/26/2021 7:01 AM ? Patient Name: Samy Patricio ? N: [id number] ? Date of : 1965 ? Age: 55 ? Order #: [id number] ? Instrument Name: [id number] ? Procedure: ? Upper GI endoscopy Indications: ? Dyspepsia Patient Profile: ? 55 yo M presents for EGD, referred by ? Dr. Jean with dyspepsia, history of ? H. pylori Providers: ? Nathaniel Azevedo, Clarissa Diaz, ? Police Guard, Zuleyka Sheppard Referring MD: ?Robinson Vazquez, Janki Jean, ? MD Medicines: ? Monitored Anesthesia Care Complications: ? No immediate complications. Procedure: ? Pre-Anesthesia Assessment: ? - Prior to the procedure, a History ? and Physical was performed, and ? patient medications and allergies ? were reviewed. The patient is ? competent. The risks and benefits of ? the procedure and the sedation ? options and risks were discussed with ? the patient. All questions were ? answered and informed consent was ? obtained. Patient identification and ? proposed procedure were verified by ? the physician, the nurse, the ? anesthesiologist, the manufacturing process technician and ? the chemical technician in the pre-procedure ? area in the procedure room. Mental ? Status Examination: alert and ? oriented. Airway Examination: normal ? oropharyngeal airway and neck ? mobility. Respiratory Examination: ? clear to auscultation. CV ? Examination: normal. Prophylactic ? Antibiotics: The patient does not ? require prophylactic antibiotics. ? Prior Anticoagulants: The patient has ? taken no previous anticoagulant or ? antiplatelet agents. ASA Grade ? Assessment: III - A patient with ? severe systemic disease. After ? reviewing the risks and benefits, the ? patient was deemed in satisfactory ? condition to undergo the procedure. ? The anesthesia plan was to use ? monitored anesthesia care (MAC). ? Immediately prior to administration ? of medications, the patient was ? re-assessed for adequacy to receive ? sedatives. The heart rate, ? respiratory rate, oxygen saturations, ? blood pressure, adequacy of pulmonary ? ventilation, and response to care ? were monitored throughout the ? procedure. The physical status of the ? patient was re-assessed after the ? procedure. ? The procedure, indications, benefits, ? risks and alternatives were explained ? to the patient. Specifically ? discussed were potential ? complications including, but not ? limited to, bleeding, perforation, ? infection, missing a cancer, and ? adverse medication reactions. The ? endoscope was introduced through the ? mouth, and advanced into the stomach ? at which a large bolus of food in the ? gastric body was seen. The endoscope ? was removed, patient was intubated, ? and then the endoscope was ? re-itnroduced through the mouth and ? advanced to the second part of ? duodenum. The patient tolerated the ? procedure well. The upper GI ? endoscopy was accomplished without ? difficulty. The patient tolerated the ? procedure well. ? Findings: ? 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 Biopsied. ? - Erythematous mucosa in the gastric ? body and antrum. Biopsied. ? - Large amount of food in stomach; ? incomplete visualization ? - Patchy avillous duodenum. Biopsied. Recommendation: ?- Patient has a contact number ? available for emergencies. The signs ? and symptoms of potential delayed ? complications were discussed with the ? patient. Return to normal activities ? tomorrow. Written discharge ? instructions were provided to the ? patient. ? - Return to referring provider as ? scheduled. Consider gastric emptying ? study given retained food and ? diabetes mellitus type 2 ? - Repeat EGD for complete ? visualization of the stomach. ? Recommend 24-hour liquid diet in ? preparation. ? - Await pathology ? Attending Participation: ? I personally performed the entire procedure. ? _ Nathaniel Azevedo, 01/26/2021 8:13:43 AM Number of Addenda: 0 Note Initiated On: 01/26/2021 7:01 AM PROVATION 01/26/2021 7:01 AM EST Janki Jean MD GENERAL SURGICAL ORD ERABLES PROVATION documented in this encounter Visit Diagnoses Not on filedocumented in this encounter Active and Recently Administered Medications Times are shown in EST. Continuous Medication Order 01/24/2021 01/25/2021 01/26/2021 lactated ringers infusion (CANCELED) 100 mL/hr, Intravenous, CONTINUOUS, Starting on Mon01/26/21 at 0745, Until Mon01/26/21 at 0851, Endoscopy (Day of Procedure) 0736 (New Bag - Prov ider: Sumaya Agrawal CRNA)0810 (Anesthesia Volume Adjustment - Provider: Suamya Agrawal CRNA) documented in this encounter Care Teams Fire Extinguisher Sprinkler Inspector Relationship Specialty Start Date End Date Robinson Vazquez, LEAD TANK MECHANIC [address] [place] [address] PCP - General Family Medicine 12/11/20 10/03/22 documented as of this encounter
--- OUTSIDE RECORDS SUMMARY | 2023-10-24 16:00 | XMS_ITS | Encounter Summary ---
[place] [address] Care Team Providers Care V Belt Skiver Name Role Phone Robinson Vazquez APRN Primary Care Provider [phone]- [phone] Encounter Details Date Type Department Care Team (Late st Contact Info) Description 01/26/2021 7:36 AM EST Anesthesia Event [place] [id number] Ashwini Mliler MD [facility] [place] [address] Sumaya Agrawal CRNA [facility] [place] [address] Anesthesia Record Procedure Summary Procedure Name Responsible Anesthesiologist Anesthesia Start Time Anesthesia Stop Time EGD WITH BIOPSY (WRVU 2.39) (Trunk) Ashwini Miller MD 01/26/21 0736 01/26/21 0813 Events Date Time Event Comment 01/26/2021 0719 0736 AN Verify 0736 Start 0736 An Start Data 0739 An Induction 0740 Anesthesia Ready 0745 Quick Note Food seen in es ophagus. Converting to GA 0749 An Induction 0751 An Intubation 0807 Extubation/LMA Out 0807 an stop data 0813 Recovery or ICU Handoff Tamiko ent care was transferred to the destination unit staff after review of the patient's medical history, current anesthetic/surgical status and plan, according to the Provider Handoff Checklist. 0813 Stop Meds Name Total IV Lidocaine 100 mg Propofol 200 mg Propofol INF 696.15 mg Dexmedetomidine 20 mcg Benzocaine 20% Littcarr 1 spray Succinylcholine 100 mg Ondansetron 4 mg lactated ringers infusion 200 mL * Agents Name O2 Air N2O Sevoflurane (et) * Blood No blood administrations on file. Lines, Drains, and Airways Type Details Placement Removal (RETIRED) Peripheral IV Line - Single Lumen 12/29/20; 1026; metacarpal vein (top of hand), left; bdqt-npk-xkvcyu catheter system; Anatomical Landmarks; US Not Used; 20 gauge, 3/4 in length; distraction, tolerated well, intradermal injection; 08/17/21 (LDA Cleanup utility RA#[id number]); 1027 (LDA Cleanup utility RA#[id number]) 12/29/20 1026 by Nathaniel Ulloa RN 08/17/21 1027 by Bryn Shankar (RETIRED) Peripheral IV Line - Single Lumen 12/29/20; 1039; median cubital vein (antecubital fossa), right; suol-gjz-kpfxhv catheter system; Anatomical Landmarks; US Not Used; 18 gauge, 1 in length; distraction, intradermal injection, tolerated well; 01/26/21; 0851 12/29/20 1039 by Nathaniel Ulloa RN 01/26/21 0851 by Irene Escalante, RN ETT Mask Ventilation: No t Attempted (0); ETT Type: Cuffed, Oral; ETT Size: 7.5 mm; Indirect: Video; Notes: Asleep, Pre-O2, RSI, Stylette; Attempts: 1; Laryngoscopy Grade: 1; ETT Placement Verified By: Auscultation, Capnometry, Visual; Secured at Teeth: 23 cm; Inserted by: Sumaya Agrawal CRNA; Removal Date: 01/26/21; Removal Time: 80601/26/21 0755 by Sumaya Agrawal CRNA 01/26/21 0807 by Sumaya Agrawal CRNA documented in this encounter [...] documented as of this encounter OR Notes * Anesthesia Postprocedure Evaluation - Ashwini Miller MD - 01/26/2021 10:31 AM EST Department of Anesthesiology Post-procedure Note Patient: Samy Patricio Jr. Procedure Summary Date: 01/26/21 Room / Location: [facility] ENDO 3 / [facility]COPY Anesthesia Start: 735 Anesthesia Stop: 812 Procedure: EGD WITH BIOPSY (WRVU 2.49) (N/A Trunk) Diagnosis: Dyspepsia (dyspepsia, hx of H pylori on PPI - please biopsy for H pylori) Surgeons: Nathaniel Azevedo MD Responsible Provider: Ashwini Miller MD Anesthesia Type: general ASA Status: 3 All Anesthesia Providers: Anesthesiologist: Ashwini Miller MD RESAW FEEDER: Sumaya Agrawal CRNA Vitals Value Taken Time BP 113/70 01/26/21 0840 Temp Pulse Resp 18 01/26/21 0830 SpO2 89 % 01/26/21 0846 Pain Level 0 01/26/21 0841 Vitals shown include unvalidated device data. Patient Location: PACU/[facility] Level of Consciousness: Awake and Alert Pain Management: Satisfactory Analgesia PONV: None Cardiovascular Status: At Baseline and Hemodynamically Stable Respiratory Status: At Baseline and Room Air Postoperative Fluid Status: Intravascular EUvolemia Possible Anesthetic Complications: NONE apparent at time of evaluation Final Primary Anesthesia Type: MAC (The anesthetic type performed was the same as planned.) Comments: ASHWINI MILLER MD * Anesthesia Preprocedure Evaluation - Ashwini Miller MD [...] - S/P TNK prior to transfer to [facility] - S/P Prasugrel & ASA load followed by maintenance ASA 81 mg & Prasugrel 10 mg - LVEDP 21 in the Admeasurer - Prior to Cardiac Catheterization, noted to [...] Post-operative nausea and vomiting Had scope at [facility] and had vomiting after Past Surgical History: Procedure Laterality Date ??? CATARACT REMOVAL Right 2016 ??? CORONARY ANGIOPLASTY WITH STENT PLACEMENT 08/2017 ??? PRO UPPER GI ENDOSCOPY, BIOPSY 04/26/2011 EGD WITH BIOPSY performed by KIRSTEN DAMON at [facility] ENDOSCOPY ??? PRO UPPER GI ENDOSCOPY, BIOPSY N/A 09/27/2018 UPPER GASTROINTESTINAL ENDOSCOPY,WITH BIOPSY SINGLE OR MULTIPLE (WRVU 2.49) performed by Luc Hdz MD at [facility] ENDOSCOPY Social History Tobacco Use ??? Smoking [...] 55 year old male with recent ST CO Type 2 DM Morbid obesity and CAITLYN and COPD here for EGD. Region - Other Informed Consent: Anesthetic plan and risks discussed with patient. Plan discussed with RESAW FEEDER. Anesthesia Screening documented in this encounter Plan of Treatment Upcoming Encounters Date Type Department Care Team (Late st Contact Info) Description 03/20/2024 10:00 AM EST Office Visit Ophthalmology at [address] [place] [address] Tania Gates, [facility] [place] [address] documented as of this encounter Visit Diagnoses Not on filedocumented in this encounter Administered Medications Inactive Administered Medications - up to 3 most recent administrations Medication Order MAR Action Action Date Dose Rate Site benzocaine (Hurricane One) 20% spray (restricted to dariana-procedural use) Oral, PRN, Starting on Mon01/26/21 at 0736, Until Mon01/26/21 at 0813, Anesthesia Intra-op Given 01/26/2021 7:36 AM EST 1 spray dexmedetomidine (Precedex) (4 mcg/mL) bolus injection (Anesthsia) Intravenous, PRN, Starting on Mon01/26/21 at 0738, Until Mon01/26/21 at 0813, Anesthesia Intra-op, Routine Given 01/26/2021 7:38 AM EST 20 mcg lactated ringers infusion 100 mL/hr, Intravenous, CONTINUOUS, Starting on Mon01/26/21 at 0745, Until Mon01/26/21 at 0851, Endoscopy (Day of Procedure) New Bag 01/26/2021 7:36 AM EST lidocaine (pf) (Xylocaine) (20 mg/mL) 2% injection syringe Intravenous, PRN, Starting on Mon01/26/21 at 0738, Until Mon01/26/21 at 0813, Anesthesia Intra-op, Routine Given 01/26/2021 7:38 AM EST 100 mg ondansetron (pf) (Zofran) (2 mg/mL) injection Intravenous, PRN, Starting on Mon01/26/21 at 0758, Until Mon01/26/21 at 0813, Anesthesia Intra-op, Routine Given 01/26/2021 7:58 AM EST 4 mg propofoL (Diprivan) (10 mg/mL) infusion Intravenous, CONTINUOUS PRN, Starting on Mon01/26/21 at 0739, Until Mon01/26/21 at 08, Anesthesia Intra-op, Routine New Bag 01/26/2021 7:39 AM EST 150 mcg/kg/min 122.85 mL/hr propofoL (Diprivan) 10 mg/mL bolus injection (Anesthesia) Intravenous, PRN, Starting on Mon01/26/21 at 0739, Until Mon01/26/21 at 0813, Anesthesia Intra-op Given 01/26/2021 7:49 AM EST 100 mg Given 01/26/2021 7:41 AM EST 50 mg Given 01/26/2021 7:39 AM EST 50 mg succinylcholine (Anectine;Quelicin) (20 mg/mL) injection Intravenous, PRN, Starting on Mon01/26/21 at 0749, Until Mon01/26/21 at 08, Anesthesia Intra-op, Routine Given 01/26/2021 7:49 AM EST 100 mg documented in this encounter Care Teams V Belt Skiver Relationship Specialty Start Date End Date Robinson Vazquez, EPIC INTERFACE ANALYST [address] [place] [address] [address] [place] [address] PCP - General Family Medicine 12/11/20 10/03/22 documented as of this encounter
--- OUTSIDE RECORDS SUMMARY | 2023-10-24 16:00 | XMS_ITS | Encounter Summary ---
Author Organization [facility] [place] [address] Care Team Providers Care Insight Director Name Role Phone Sae Marr MD Primary Care Provider [phone] Reason for Visit * Reason Comments Eye Exam Encounter Details Date Type Department Care Team (Late st Contact Info) Description 02/12/2020 10:00 AM EST Office [place] [address] Tania Gates, OD [facility] [place] [address] Diabetic eye exam; Pseudophakia of right eye; [...] Progress Notes * Tania Gates, OD - 02/12/2020 10:00 AM EST Encounter Diagnoses Name Primary? Diabetic eye exam ??? Pseudophakia of right eye ??? Age-related nuclear cataract of left eye ??? History of eye injury ??? Astigmatism of both eyes with presbyopia Samy Denilson Patricio Jr. is a 54 y.o. with the following [...] Rx given today in polycarbonate and advised real time analyst wear for eye protection! - Findings and concerns discussed with Samy and he expressed understanding. -Upon Return CEE in 1 year, sooner with changes in sx/vision. Eyeglass Final Rx Eyeglass Final Rx Sphere Cylinder [place] Dist VA Add Near VA Right +0.50 +0.50 175 20/20 - +2.50 20/20 Left Balance Expiration Date: 02/12/2022 Polycarbonate documented in this encounter Plan of Treatment Upcoming Encounters Date Type Department Care Team (Late st Contact Info) Description 03/20/2024 10:00 AM EST Office [place] [address] Tania Gates, [facility] [place] [address] documented as of this encounter Visit Diagnoses Diagnosis Diabetic eye exam Examination of eyes and vision Pseudophakia of right eye Lens replaced by other means Age-related nuclear cataract of left eye Senile nuclear sclerosis History of eye injury Personal history of other injury Astigmatism of both eyes with presbyopia documented in this encounter Care Teams Insight Director Relationship Specialty Start Date End Date Sae Marr MD PCP - General General Internal Medicine 08/06/19 9/3 documented as of this encounter
--- OUTSIDE RECORDS SUMMARY | 2023-10-24 16:00 | XMS_ITS | Encounter Summary ---
[place] [address] Care Team Providers Care Research Engineer Marine Equipment Name Role Phone Sae Marr MD Primary Care Provider [phone] Reason for Visit * Reason Onset Date Comments Follow-up 01/15/2020 Tobacco Treatmen t Encounter Details Date Type Department Care Team (Late st Contact Info) Description 01/15/2020 Telephone [place] [phone] Bryn Guevara, RN Follow-up (Tobacco Treatment) Social History Tobacco Use Types Packs/Day Years Used Date Smoking Tobacco: Every Day Cigarettes Smokeless Tobacco: Never Tobacco Cessation:Ready to Q uit: No; Counseling Given: Yes Alcohol Use Standard Drinks/Week Comments Yes 7 (1 standard drink = 0.6 oz pur e alcohol) Sex and Gender Information Value Date Recorded Sex Assigned at Not on file Gender Identity Not on file Sexual Orientation Not on file documented as of this encounter Miscellaneous Notes * Telephone Encounter - Bryn Guevara, RN - 01/15/2020 11:44 AM EST DATE: 01/15/2020 NAME: Samy Patricio Jr. : 1965 Reason for Call: 6-month follow-up for Tobacco Treatment Pt continues to smoke about 2 ppd and is not willing to commit to a quit attempt at this time. He was given the contact information for the Tobacco Treatment Program and was encouraged to contact them once he's ready to make a decision to quit. EMR updated. I will follow-up in July 2020. Bryn Guevara, MSN, RN-, NCTTP Tobacco Gas Appliance Servicer [facility] Pager #[phone] documented in this encounter Plan of Treatment Upcoming Encounters Date Type Department Care Team (Late st Contact Info) Description 03/20/2024 10:00 AM EST Office [place] [address] Tania Gates OD [facility] [place] [address] documented as of this encounter Visit Diagnoses Not on filedocumented in this encounter Care Teams Research Engineer Marine Equipment Relationship Specialty Start Date End Date Sae Marr MD PCP - General General Internal Medicine 08/06/1911/13 documented as of this encounter
--- OUTSIDE RECORDS SUMMARY | 2023-10-24 16:00 | XMS_ITS | Encounter Summary ---
[place] [address] Care Team Providers Care Change Coordinator Name Role Phone Robinson Vazquez APRN Primary Care Provider [phone] Reason for Visit * Reason Onset Date Comments Reminder Appointment 12/28/2020 Encounter Details Date Type Department Care Team (Late st Contact Info) Description 12/28/2020 Telephone [place] [phone] Gerda Orellana CCMA Reminder Appointment Social History Tobacco Use Types Packs/Day Years [...] encounter Miscellaneous Notes * Telephone Encounter - Gerda Orellana LNA - [...] 10:00 AM EST Office [place] [address] Tania Gates, [facility] [place] [address] documented as of this encounter Visit Diagnoses Not on filedocumented in this encounter Care Teams Change Coordinator Relationship Specialty Start Date End Date Robinson Vazquez, JOVANI [address] [place] [address] PCP - General Family Medicine 12/11/20 10/03/22 documented as of this encounter
--- OUTSIDE RECORDS SUMMARY | 2023-10-24 16:00 | XMS_ITS | Encounter Summary ---
Author Organization [facility] [place] [address] Care Team Providers Care Information Assistant Name Role Phone Robinson Vazquez APRN Primary Care Provider [phone] Encounter Details Date Type Department Care Team (Latest Contact Info) Description 12/28/2020 8:00 AM EDT TH Visit (TeleHealth) [place] [address] Janki Jean MD [facility] [place] [address] Watery diarrhea; Abdominal bloating; Dyspepsia Social History Tobacco Use Types Packs/Day [...] this encounter Patient Instructions * Patient Instructions* Jnaki Jean MD - 12/28/2020 8:00 AM EDT [...] Progress Notes * Janki Jean MD - 12/28/2020 8:00 AM EDT [facility] Section of Gastroenterology and Hepatology Follow-up Telemedicine [...] (spinach, green beans, summer squash, broccoli) for acouple of months Bread is one of his [...] which made his GI sx worse ?? Note hx [...] peptic ulcers ?? EGDs in our system [id number] (multiple) - all with the appearance of [...] day, dinner, always been that way White [place] when relaxing, 1-2, could cause more pain [...] chest pain intermittently, going to see his pens and pencils dipper. Duration of ETOH/tobacco: Has cut down on [...] Post-operative nausea and vomiting [place] [facility] [place] had [place] after Past Surgical History: Procedure Laterality Date ??? CATARACT REMOVAL Right 2016 ??? CORONARY ANGIOPLASTY WITH STENT PLACEMENT 08/2017 ??? PRO UPPER GI ENDOSCOPY, BIOPSY 04/26/2011 EGD WITH BIOPSY performed by KIRSTEN DAMON at [facility] ??? PRO UPPER GI ENDOSCOPY, BIOPSY N/A 09/27/2018 UPPER GASTROINTESTINAL ENDOSCOPY,WITH BIOPSY SINGLE OR MULTIPLE (WRVU 2.49) performed by Luc Hdz MD at [facility] Social History Socioeconomic History ??? Marital [...] TWICE A DAY, Disp: , Rfl: ??? bvijhhklgiq-lcopeqekt-losooetv 100-62.5-25 mcg Disk with Device, 1 puff [...] lactose sensitivity. He has a well and we do wonder whether this is contributing to sx. [...] of GB (better for detecting stones) and liver(given hx of fatty liver) Follow-up: Telehealth in 3 months The patient was located in [place] at the time of their telemedicine visit. TIME SPENT WITH PATIENT Time spent during encounter with patient including counselin minutes Time spent documenting encounter after office visit: 5 minutes Total time: 31 minutes The risks, benefits and alternatives were discussed with the patient who understands and agrees with above. Janki Jean MD 12/27/20 Janki Jean MD Section of Gastroenterology and Hepatology [facility] [place] [facility] [address] documented in this encounter Plan of Treatment Upcoming Encounters Date Type Department Care Team (Late st Contact Info) Description 03/20/2024 10:00 AM EST Office Visit Ophthalmology at [facility] [place] [address] Tania Gates, [facility] [address] Scheduled Orders Name Type Priority Associated Diagnoses Orde r Schedule ENDOSCOPY CASE REQUEST: EGD, UPPER GI ENDOSCOPY Procedures Routine Dyspepsia Ordered: 12/28/2020 documented as of this encounter Results * XR Abdomen 1 view (Generic) (12/29/2020 3:19 PM EDT) Anatomical Region Laterality Modality Abdomen N/A Digital Radiogra phy Narrative 12/29/2020 3:32 PM EDT EXAMINATION: XR ABDOMEN 1 VIEW (GENERIC) CLINICAL HISTORY: abdominal bloating and distention evaluate stool burden TECHNIQUE: Supine Abdomen, one view COMPARISON: CT abdomen pelvis, May 2005 FINDINGS: LDAs (Lines/drains) & devices: Bowel gas pattern: The air-filled colon is not dilated. There are a few air-filled nondilated small bowel segments. Free air: None, but detection limited on supine examination. Abnormal calcifications: None. Excreted contrast in nondilated ureter and collapsed urinary bladder. Findings suggest recent contrast imaging study. There are multiple LEFT upper quadrant surgical ezekiel. Bones: No acute fracture. Impression 1. ??No intestinal dilatation 2. ??Recent contrast imaging study with a excreted contrast in collecting system and urinary bladder. Thank you for letting us participate in the care of this patient. ??If you are a health care provider and have any questions regarding this report, please contact the number below. ??For patients who have questions please contact the health critical care paramedic that requested your imaging first. ? Procedure Note Jazmin Reed MD - 12/29/2020 EXAMINATION: XR ABDOMEN 1 VIEW (GENERIC) CLINICAL HISTORY: abdominal bloating and distention evaluate stoolburden TECHNIQUE: Supine Abdomen, one view COMPARISON: CT abdomen pelvis, May 2005 FINDINGS: LDAs (Lines/drains) & devices: Bowel gas pattern: The air-filled colon is not dilated. There are a few air-filled nondilated small bowel segments. Free air: None, but detection limited on supine examination. Abnormal calcifications: None. Excreted contrast in nondilated ureter and collapsed urinary bladder.Findings suggest recent contrast imaging study. There are multiple LEFT upper quadrant surgical ezekiel. Bones: No acute fracture. Impression 1. No intestinal dilatation 2. Recent contrast imaging study with a excreted contrast in collectingsystem and urinary bladder. Thank you for letting us participate in the care of this patient. If youare a health care provider and have any questions regarding this report,please contact the number below. For patients who have questions please contactthe health critical care paramedic that requested your imaging first. Janki Jean MD IMG DX ORDERABLES documented in this encounter Visit Diagnoses Diagnosis Watery diarrhea Abdominal bloating Flatulence, eructation, and gas pain Dyspepsia Dyspepsia and other specified disorders of function of stomach Abdominal bloating Flatulence, eructation, and gas pain documented in this encounter Care Teams Information Assistant Relationship Specialty Start Date End Date Robinson Vazquez, SCHOOL SPEECH LANGUAGE PATHOLOGIST [address] [place] [address] [address] [place] [address] PCP - General Family Medicine 12/11/20 10/03/22 documented as of this encounter
--- OUTSIDE RECORDS SUMMARY | 2023-10-24 16:00 | XMS_ITS | Encounter Summary ---
[place] [address] Care Team Providers Care Medical Advisor Name Role Phone Sae Marr MD Primary Care Provider [phone] Reason for Visit * Reason Onset Date Comments Follow-up 09/06/2019 tobacco treatmen t Encounter Details Date Type Department Care Team (Late st Contact Info) Description 09/06/2019 Telephone [place] [phone] Bryn Guevara, RN Follow-up (tobacco treatment) Social History Tobacco Use Types Packs/Day Years [...] Telephone Encounter - Bryn Guevara, RN - 09/06/2019 8:52 AM EDT DATE: 09/06/2019 NAME: Samy Oreilly Sheng Wells : 1965 Reason for Call: 1-month follow-up for Tobacco Treatment Pt continues to smoke. He attempted to enroll in the [place] quit line program and was unable to receiveNRT through the program. Pt plans to continue the quit attempt using cold-turkey method. Pt was encouraged to return to Tobacco Treatment clinic should he need more replacement supplies. Contact information provided. Tobacco status updated. Thank you . Bryn Guevara, MSN, RN-, [facility] Tobacco Wharf Helper [facility] Pager #[phone] documented in this encounter Plan of Treatment Upcoming Encounters Date Type Department Care Team (Late st Contact Info) Description 03/20/2024 10:00 AM EST Office [place] [address] Tania Gates OD [facility] [place] [address] documented as of this encounter Visit Diagnoses Not on filedocumented in this encounter Care Teams Medical Advisor Relationship Specialty Start Date End Date Sae Marr MD PCP - General General Internal Medicine 08/06/19 9/3 documented as of this encounter
--- OUTSIDE RECORDS SUMMARY | 2023-10-24 16:00 | XMS_ITS | Encounter Summary ---
Author Organization [facility] [place] [address] Care Team Providers Care Inside Sales Engineer Name Role Phone Robinson Vazquez APRN Primary Care Provider [phone] Encounter Details Date Type Department Care Team (Latest Contact Info) Description 12/29/2020 3:07 PM EDT - 12/29/2020 11:59 PM EDT Hospital Encounter XRay at [address] [place] [address] Janki Jean MD [facility] [address] Abdominal bloating Discharge Disposition: Home Social History Tobacco Use [...] TEST BLOOD GLUCOSE TWICE A DAY 06/23/2020 kywtiyxnevg-yhhcooscy-w ilanter 100-62.5-25 mcg Disk with Device Inhale 1 puff into the lungs daily. Evens Elvinrafael Lantus Solostar U-100 Insulin pen 80 Units. [...] 11/15/2016 02/24/2022 documented as of this encounter Plan of Treatment Upcoming Encounters Date Type Department Care Team (Late st Contact Info) Description 03/20/2024 10:00 AM EST Office Visit [place] [address] Kody Tania, OD [facility] [place] [address] documented as of this encounter Procedures Procedure Name Priority Date/Time Associated Diagnosis Comments XR ABDOMEN 1 VIEW Routine 12/29/2020 3:1 9 PM EDT Abdominal bloating documented in this encounter Results * XR Abdomen 1 [...] who have questions please contact the health reservoir caretaker that requested your imaging first. ? Electronically signed by: Jazmin Reed MD, [facility] ([phone]), at 12/29/2020 3:32 PM Procedure Note Jazmin Reed MD - 12/29/2020 [...] patients who have questions please contactthe health reservoir caretaker that requested your imaging first. Electronically signed by: Jazmin Reed MD, [facility]([phone]), at 12/29/2020 3:32 PM Janki Jean MD IMG DX ORDERABLES documented in this encounter Visit Diagnoses Diagnosis Abdominal bloating Flatulence, eructation, and gas pain documented in this encounter Care Teams Inside Sales Engineer Relationship Specialty Start Date End Date Robinson Vazquez, ADHESIVE BONDING MACHINE OPERATOR [address] [place] [address] PCP - General Family Medicine 12/11/20 10/03/22 documented as of this encounter
--- OUTSIDE RECORDS SUMMARY | 2023-10-24 16:00 | XMS_ITS | Encounter Summary ---
Author Organization [facility] [place] [address] Care Team Providers Care Pellet Post Inspector Name Role Phone Sae Marr MD Primary Care Provider [phone] Reason for Visit * Consultation (Routine) - Closed Specialty Diagnoses / Procedures Referred By Keith sanchez Referred To Contact Gastroenterology Diagnoses Abdominal pain and bloating Procedures Consult Gale Calderon MD [address] [place] [address] [facility] [address] [place] [address] Referral ID Status Reason Start Date Expiration Date Visits Re quested Visits Authorized [id number] Closed 05/29/2020 05/29/2021 1 1 Encounter Details Date Type Department Care Team (Late st Contact Info) Description 09/09/2020 1:30 PM EDT Office [place] [address] Janki Jean MD [facility] [place] [address] Dyspepsia; Abdominal bloating; Belching; Watery diarrhea Social History Tobacco Use Types Packs/Day Years [...] Sign Reading Time Taken Comments Blood Pressure 124/74 09/09/2020 1:28 PM EDT Pulse 85 09/09/2020 1:28 PM EDT Temperature - - Respiratory Rate - - Oxygen Saturation - - Inhaled Oxygen Concentration - - Weight 128.5 kg (283 lb 3.2 oz) 09/09/2020 1:28 PM EDT Height - - Body Mass Index 38.41 07/04/2018 8:37 PM EDT documented in this encounter Patient Instructions * Patient Instructions* Janki Jean MD - 09/09/2020 1:30 PM EDT Plan: ?? Lifestyle change: Eat small meals, 5-6 times/day - see handout ?? Try the low FODMAP diet (see [facility] Projjix Roxana), work with your veterinary virologist Follow-up: Telehealth in 2-3 months If no improvement, obtain additional testing and consider a trial of low dose psyllium (metamucil fiber). documented in this encounter Progress Notes * Janki Jean MD - 09/09/2020 1:30 PM EDT [facility] Section of Gastroenterology and Hepatology New Patient Visit PCP: Sae Marr MD Referring provider: Gale Bonner MD [address] [place] [address] HPI: This is a 54 y.o. male who is kindly referred by Gale Calderon MD for evaluation of abdominal pain and bloating. GI PROBLEM LIST (with relevant hx & [...] pantoprazole 40mg BID, some regurgitation ?? 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 EGDs in our system 5572-9341 (multiple) - all with the appearance of [...] liver, noted previously on imaging on imaging TODAY'S HISTORY At first he thought he had a [...] day, dinner, always been that way White [place] when relaxing, 1-2, could cause more pain [...] chest pain intermittently, going to see his assistant teacher. Duration of ETOH/tobacco: Has cut down on tobacco but has not quit. ETOH since age 46, 1-2 drinks/night. 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 Patient Active Problem List Diagnosis Code ??? Chronic midline low back pain without sciatica M54.5, G89.29 ??? Cervical spinal stenosis M48.02 ??? [...] Post-operative nausea and vomiting Had scope at [facility] and had vomiting after Past Surgical History: Procedure Laterality Date ??? CATARACT REMOVAL Right 2016 ??? CORONARY ANGIOPLASTY WITH STENT PLACEMENT 08/2017 ??? PRO UPPER GI ENDOSCOPY, BIOPSY 04/26/2011 EGD WITH BIOPSY performed by KIRSTEN DAMON at [facility] ??? PRO UPPER GI ENDOSCOPY, BIOPSY N/A 09/27/2018 UPPER GASTROINTESTINAL ENDOSCOPY,WITH BIOPSY SINGLE OR MULTIPLE (WRVU 2.49) performed by Luc Hdz MD at [facility] Social History Socioeconomic History ??? [...] Strain: ??? Difficulty of Paying Living Expenses: Food Insecurity: ??? Worried About Running Out of Food in the Last Year: ??? Ran Out of Food in the Last Year: Transportation Needs: ??? Lack of Transportation (Medical): ??? Lack of Transportation (Non-Medical): Physical Activity: ??? Days of Exercise per Week: ??? Minutes of Exercise per Session: Current Outpatient Medications: ??? OneTouch Verio test strips Strip, TEST BLOOD GLUCOSE TWICE A DAY, Disp: , Rfl: ??? OneTouch Verio Flex meter [facility], TEST BLOOD GLUCOSE TWICE A DAY, Disp: , Rfl: ??? mnlkeyroxev-fjggqxjyj-qqbpasyi 100-62.5-25 mcg Disk with Device, 1 puff [...] daily., Disp: 90 tablet, Rfl: 3 ??? prasugreL (Effient) 10 mg Tablet, Take 1 tablet by mouth daily., Disp: 30 tablet, Rfl: 3 ??? thiamine (Vitamin B1), Take 1 tablet [...] daily (before meals)., Disp: , Rfl: 4 ??? nicotine (NICODERM CQ) 21 mg/24 hr Patch 24 hr, Change 2 patches on the skin daily. (Patient not taking: Reported on 09/09/2020), Disp: 28 patch, Rfl: 0 ??? sucralfate (Carafate) 100 mg/mL Suspension, Take 10 mLs by mouth every 6 hours. (Patient not taking: Reported on 09/09/2020), Disp: 420 mL, Rfl: 0 Allergies Allergen Reactions ??? Venlafaxine ??? Doxycycline Nausea And Vomiting ??? Other [Unclassified Drug] Nausea And Vomiting Had an allergic reaction to an antibiotic but does not know the name BP 124/74 Pulse 85 Wt 128.5 kg (283 lb 3.2 oz) BMI 38.41 kg/m?? Physical exam: Constitutional: Well appearing, NAD, AAO x 3 Eyes: EOMI, anicteric sclera Mouth/Throat: MMM, no erythema, oral ulcers, exudates or lesions Neck: supple, no cervical LAD Cardiovascular: S1, S2, RRR no m/r/g, + 1 LE edema Respiratory: CTABL no w/r/r Gastrointestinal: soft, diffuse lower abdominal, epigastric and left-sided tenderness, ND, +BS, obese, mid-line surgical scar, hernia in left upper abdomen (+ Carnett's sign) Neurologic: CN 2-12, strength and sensation grossly intact Psychiatric: pleasant, judgement and insight intact Skin: no rashes or lesions Musculoskeletal: no joint swelling or erythema, full range of motion Data: As reviewed above Impression: 54 y.o. male with IDDM c/b diabetic peripheral neuropathy presenting for evaluation of abdominal pain and bloating ?? Dyspepsia with some abdominal wall pain, mild dysmotility (GE scan delayed at 2 hours but not 4 hours) ?? Diffuse gas/bloating and distention ?? Episodes of belching (sulfer burps) with watery diarrhea I suspect all of his symptoms are related to diet/lifestyle (over-eating/eating one large meal; food intolerances including FODMAPs). DDX includes: Possible overflow diarrhea with dysmotility; probable dysbiosis (SIBO); consider pelvic floor & diaphragmatic dysfunction; consider pancreatic exocrine insufficiency (DM, ETOH, tobacco); DM medication-related side effect (metformin) less likely given chronic use; H pylori; mesenteric ischemia (given hx of CV disease; note normal vessels on priorCT) clinically would not account for all symptoms; doubt biliary. Plan: ?? Lifestyle change: Eat small meals, 5-6 times/day - see handout ?? Try the low FODMAP diet (see [facility] Projjix Roxana), work with your veterinary virologist Follow-up: Telehealth in 2-3 months If no improvement, obtain the following testing and consider a trial of low dose psyllium. ?? Stool testing with fecal elastase, giardia ?? KUB ?? Hydrogen breath test with lactulose for SIBO ?? Mesenteric duplex ?? Repeat dedicated US of GB (better for detecting stones) and liver (given hx of fatty liver) Total visit time: 60 minutes Counseling time: Greater than 30 minutes of this 60 minute face to face visit were spent in direct counseling and coordination of care for the above issues. Note that an additional 20 minutes was spent on review of prior records. The risks, benefits and alternatives were discussed with the patient who understands and agrees with above. Janki Jean MD 09/09/20 Janki Jean MD Section of Gastroenterology and Hepatology [facility] [address] documented in this encounter Plan of Treatment Upcoming Encounters Date Type Department Care Team (Late st Contact Info) Description 03/20/2024 10:00 AM EST Office Visit Ophthalmology at [place] [phone] Tania Gates OD [facility] [place] [address] documented as of this encounter Visit Diagnoses Diagnosis Dyspepsia Dyspepsia and other specified disorders of function of stomach Abdominal bloating Flatulence, eructation, and gas pain Belching Flatulence, eructation, and gas pain Watery diarrhea documented in this encounter Care Teams Pellet Post Inspector Relationship Specialty Start Date End Date Sae Marr MD PCP - General General Internal Medicine 08/06/19/3 documented as of this encounter
--- OUTSIDE RECORDS SUMMARY | 2023-10-24 16:00 | XMS_ITS | Encounter Summary ---
[place] [address] Care Team Providers Care Conveyor Attendant Name Role Phone Sae Marr MD Primary Care Provider [phone] Reason for Visit * Reason Onset Date Comments Bumped Appointment 01/29/2020 Encounter Details Date Type Department Care Team (Late st Contact Info) Description 01/29/2020 Telephone [place] [phone] Tania Gates OD [facility] [place] [address] Bumped Appointment Social History Tobacco Use Types Packs/Day [...] encounter Miscellaneous Notes * Telephone Encounter - Rhoda Hassan - 01/29/2020 4:46 PM ESTSummary: Kody [facility] to 02/12/20. Spoke w pt to [facility] 02/11/20 PETER Gates FU for: 1 year for CEE. Reviewed updated Visitors Policy w pt, he will plan accordingly. BMP 1x, -Last Seen 02/08/19. [facility] to 02/12/20. documented in this encounter Plan of Treatment Upcoming Encounters Date Type Department Care Team (Late st Contact Info) Description 03/20/2024 10:00 AM EST Office Visit [place] [address] Tania Gates, [facility] [place] [address] documented as of this encounter Visit Diagnoses Not on filedocumented in this encounter Care Teams Conveyor Attendant Relationship Specialty Start Date End Date Sae Marr MD PCP - General General Internal Medicine 08/06/19 9/3 documented as of this encounter
--- OUTSIDE RECORDS SUMMARY | 2023-10-24 16:00 | XMS_ITS | Encounter Summary ---
[place] [address] Care Team Providers Care Scale Balancer Name Role Phone Robinson Vazquez APRN Primary Care Provider [phone] Encounter Details Date Type Department Care Team (Late st Contact Info) Description 01/26/2021 7:30 AM EST - 01/26/2021 8:15 AM EST [place] [phone] Nathaniel Azevedo MD [facility] [place] [address] EGD WITH BIOPSY (WRVU 2.39) Social History Tobacco Use Types Packs/Day Years [...] AM ES T Respiratory Rate 18 01/26/2021 8:12 AM EST [...] the day after the procedure, use an ttil-mhg-buxkrug spray to numb your throat. Sucking on [...] occurs, please contact your Doctor. Please call [phone] before 8pm Mon-Fri with problems, questions or concerns. If you call after 8pm or on weekends, call the Hospital at [phone] and ask to speak to the Furniture Installer biodiesel operations manager and the plastic machine operator will contact that person for you. When should you call for help? Call [phone] anytime you think you may need emergency [...] any problems. Where can you learn more? [facility] View your After Visit Summary and more online at [email or web address] If you would like to provide [...] cost to you. Content Version: 12.2 ?? [id number] [employer]. Care instructions adapted under license by [facility]. If you have questions about a medical condition or this instruction, always ask your healthcare professional. [employer] disclaims any warranty or liability for your use of this information. documented in this encounter Medications at Time of Discharge Medication Sig Dispensed Refills Start Date End Date acetaminophen (Tylenol) 325 mg tablet every 6 hours as needed. 06/27/2019 OneTouch Verio test strips Strip TEST BLOOD GLUCOSE TWICE A DAY 06/23/2020 OneTouch Verio Flex meter Misc TEST BLOOD GLUCOSE TWICE A DAY 06/23/2020 qjpctgtwmji-dvcznxzmi-w ilanter 100-62.5-25 mcg Disk with Device Inhale [...] this encounter H&P Notes * Luc Wheeler, ASSEMBLY SUPERVISOR - 01/26/2021 6:58 AM EST Patient Name: [...] Wheeler APRN Section of Gastroenterology [place] [address] documented in this encounter Plan of Treatment Upcoming Encounters Date Type Department Care Team (Late st Contact Info) Description 03/20/2024 10:00 AM EST Office [place] [address] Tania Gates [facility] [place] [address] documented as of this encounter Procedures Procedure Name Priority Date/Time Associated Diagnosis Comments SURGICAL PATHOLOGY REPORT Routine 01/26/2021 8:06 AM EST SPECIMEN TO PATHOLOGY Routine 01/26/2021 8:06 AM EST SPECIMEN TO PATHOLOGY Routine 01/26/2021 8:06 AM EST SPECIMEN TO PATHOLOGY Routine 01/26/2021 8:06 AM EST Upper Gi Endoscopy, Biopsy ([id number]) 01/26/2021 7:38 AM EST Dyspepsia UPPER GI ENDOSCOPY Routine 01/26/2021 7: 01 AM EST documented in this encounter Results * Surgical Pathology Report (01/26/2021 8:06 AM EST) Final Diagnosis [id number] ? Location: 4T; EA07; A The signing [...] Verified: ??02/04/2021 0:22 ?? Pathologist Performed at: ??-[facility] [place], [place], [place] SPECIMEN(S) SUBMITTED A - Gastric, biopsy (Multiple) B - Duodenal, biopsy (Multiple) C - Irregular z line. esophagus, biopsy (Multiple) CLINICAL INFORMATION History of dyspepsia, belching, bloating, distention, history of H. pylori SPECIMEN PROCESSING A - Labeled/Fixative: Gastric biopsies, formalin. Quantity/Size: Fragments, 0.2-0.4 cm. Tissue Description: Soft, figueroa-pink tissues. Sections/Processing [...] labeled C1. ??pps 02/04/2021 12:22 AM EST [facility] GI Biopsy 01/26/2021 8:06 AM EST 01/26/2021 8:06 AM EST GI Biopsy 01/26/2021 8:06 AM EST 01/26/2021 8:06 AM EST GI Biopsy 01/26/2021 8:06 AM EST 01/26/2021 8:06 AM EST Nathaniel Azevedo MD PATHOLOGY/[place] [address] * Specimen to Pathology (01/26/2021 8:06 AM EST) AP Specimen 01/26/2021 8:06 AM EST 01/26/2021 8:06 AM EST Narrative [facility] - 01/26/2021 8:06 AM EST Specimen requisition ordered. ??Separate Pathology report to follow Nathaniel Azevedo MD PATHOLOGY/CYTOLOGY O SAEID [facility] [place] [address] * Specimen to Pathology (01/26/2021 8:06 AM EST) AP Specimen 01/26/2021 8:06 AM EST 01/26/2021 8:06 AM EST Narrative [facility] - 01/26/2021 8:06 AM EST Specimen requisition ordered. ??Separate Pathology report to follow Nathaniel Azevedo MD PATHOLOGY/CYTOLOGY O SAEID [facility] [place] [address] * Specimen to Pathology (01/26/2021 8:06 AM EST) AP Specimen 01/26/2021 8:06 AM EST 01/26/2021 8:06 AM EST Narrative [facility] - 01/26/2021 8:06 AM EST Specimen requisition ordered. ??Separate Pathology report to follow Nathaniel Azevedo MD PATHOLOGY/CYTOLOGY O SAEID [facility] [place] [address] * UPPER GI ENDOSCOPY (01/26/2021 7:01 AM EST) UPPER GI ENDOSCOPY [facility] Endoscopy Procedure Date: 01/26/2021 7:01 AM ? Patient Name: Samy Patricio ? N: [id number] ? Date of : 1965 ? Age: 55 ? Order #: [id number] ? Instrument Name: [id number] ? Procedure: ? Upper GI endoscopy Indications: ? Dyspepsia Patient Profile: ? 55 yo M presents for EGD, referred by ? Dr. Jean with dyspepsia, history of ? H. pylori Providers: ? Nathaniel Azeveod, Clarissa Diaz, ? Psychology Fellow, Zuleyka Sheppard Referring MD: ?Robinson Vazquez, Janki [...] physician, the nurse, the ? anesthesiologist, the mainstreaming facilitator and ? the parts technician in the pre-procedure ? area in [...] applicable - See Anesthesia documentation Impression: ?- Adams-colored mucosa suspicious ? for short-segment Diaz's ? [...] Volume Adjustment - Provider: Sumaya Agrawal CRNA) documented in this encounter Care Teams Scale Balancer Relationship Specialty Start Date End Date Robinson Vazquez, ASSEMBLY SUPERVISOR [address] [place] [address] PCP - General Family Medicine 12/11/20 10/03/22 documented as of this encounter
--- OUTSIDE RECORDS SUMMARY | 2023-10-24 16:00 | XMS_ITS | Encounter Summary ---
Author Organization [facility] [place] [address] Care Team Providers Care Courtesy Driver Name Role Phone Sae Marr MD Primary Care Provider [phone] Encounter Details Date Type Department Care Team (Late st Contact Info) Description 08/06/2019 Notes Only Cardiology at [address] [phone] Antonina Merino MD [facility] [place] [address] Social History Tobacco Use Types Packs/Day Years [...] 10:00 AM EST Office [place] [phone] Tania Gates OD [facility] [place] [address] documented as of this encounter Visit Diagnoses Not on filedocumented in this encounter Care Teams Courtesy Driver Relationship Specialty Start Date End Date Sae Marr MD PCP - General General Internal Medicine 08/06/1911/13 documented as of this encounter
--- OUTSIDE RECORDS SUMMARY | 2023-10-24 16:00 | XMS_ITS | Encounter Summary ---
[place] [address] Care Team Providers Care Analyst Market Intelligence Name Role Phone Robinson Vazquez APRN Primary Care Provider [phone] Encounter Details Date Type Department Care Team (Late st Contact Info) Description 01/05/2021 Telephone [place] [phone] Ann Vázquez Social History Tobacco Use Types Packs/Day Years [...] encounter Miscellaneous Notes * Telephone Encounter - Ann Vázquez - 01/05/2021 4:53 PM EDT Samy Patricio Jr. [id number] Diagnosis/Indication: dyspepsia, hx of H pylori on PPI - please biopsy for H pylori 1. Have you ever had a/an Upper Endoscopy before? Yes: Date 1.5 years ago [facility] If yes, did you have any problems with the procedure? No What type of sedation was used: Other: unsure 2. Do you take any blood thinners or have you been diagnosed with a bleeding disorder that increases your risk of bleeding with procedures? No 3. [...] to patient: You must have a responsible democrat who will drive you to your procedure, stay oncampus for the entire duration of your procedure, [...] 10:00 AM EST Office [place] [address] Tania Gates OD [facility] [place] [address] documented as of this encounter Visit Diagnoses Not on filedocumented in this encounter Care Teams Analyst Market Intelligence Relationship Specialty Start Date End Date Robinson Vazquez APRN [address] [place] [address] PCP - General Family Medicine 12/11/20 10/03/22 documented as of this encounter
--- OUTSIDE RECORDS SUMMARY | 2023-10-24 16:01 | XMS_ITS | Encounter Summary ---
[place] [address] Care Team Providers Care Value Engineer Name Role Phone Altaf Hoover MD Primary Care Provider [phone] Encounter Details Date Type Department Care Team (Latest Contact Info) Description 04/26/2011 7:32 AM EST - 04/26/2011 10:50 AM EST Hospital Encounter [place] [address] Kirsten Damon MD [facility] [address] [place] [address] Discharge Disposition: Home Social History Tobacco Use Types Packs/Day Years Used Date Smoking Tobacco: Every Day Alcohol Use Standard Drinks/Week Comments Yes 0 (1 standard drink = 0.6 oz pur [...] 36.6 ??C (97.9 ??F) 04/26/2011 8:16 AM ES T Respiratory Rate 16 04/26/2011 9:59 AM EST Oxygen Saturation 96% 04/26/2011 9:59 AM EST Inhaled Oxygen Concentration - - Weight - - Height - - Body Mass Index - - documented in this encounter Discharge Instructions * Discharge Instructions* Pratima Strong RN - 04/26/2011 10:04 AM EST [...] not get better as expected. Monday-Monday Clinic [phone] 8a-5p Same Day Endo [phone] 7a-8p Otherwise contact [phone] and ask to speak to the manager of international healthcare consulting manager Follow-up care is a sanford part of your treatment and safety. Be sure to make and go to all appointments, and call your doctor if you are having problems. Instructions have been reviewed and patient expresses understanding * Patient Instructions* Kirsten Damon MD - 04/26/2011 9:53 AM EST Please see Recommendations in the Provation procedure report which is documented in the procedural note in [facility]. documented in this encounter Medications at Time of Discharge Medication Sig Dispensed Refills Start Date End Date metFORMIN (GLUCOPHAGE) 850 mg tablet Take 850 mg by mouth daily. 02/08/2017 omeprazole (PRILOSEC) 40 mg capsule 40 MG = 1 Capsule(s), PO, Once daily 07/14/2006 02/08/2017 atorvastatin (LIPITOR) 40 mg tablet 40 MG = 1 Tablet(s), PO, Once daily 07/14/2006 02/08/2017 aspirin 325 mg tablet 07/14/20062016 Varenicline (CHANTIX) 0.5(11)-1(3X14) mg DsPk as directed, PO, as directed 07/14/2006 02/08/2017 documented as of this encounter Progress Notes * Pratima Strong RN - 04/26/2011 10:[address] Damon in to explain findings and plan. documented in this encounter H&P Notes * Kirsten Damon MD - 04/26/2011 8:56 AM [...] signed. documented in this encounter Miscellaneous Notes * Miscellaneous - Provider, Scanning - 04/27/2011 1:43 AM EST * Miscellaneous - Provider, Scanning - 04/26/2011 11:03 AM EST documented in this encounter Plan of Treatment Upcoming Encounters Date Type Department Care Team (Late st Contact Info) Description 03/20/2024 10:00 AM EST Office [place] [address] [facility] [place] [address] documented as of this encounter Procedures Procedure Name Priority Date/Time Associated Diagnosis Comments SURGICAL PATHOLOGY REPORT Routine 04/26/2011 11:25 AM EST SPECIMEN TO PATHOLOGY Routine 04/26/2011 9:53 AM EST SPECIMEN TO PATHOLOGY Routine 04/26/2011 9:53 AM EST EGD WITH BIOPSY (WRVU 2.39) 04/26/2011 9:26 AM EST barretts UPPER GI ENDOSCOPY Routine 04/26/2011 8: 42 AM EST POCT GLUCOSE Routine 04/26/2011 8:29 AM EST documented in this encounter Results * SURGICAL PATHOLOGY REPORT (04/26/2011 11:25 AM EST) Surgical Pathology Report ? [facility] ? Provider: ?? KIRSTEN DAMON ?? Pt. Name: ?? GIDEON SMITH, SAMY Oreilly ? Acc #: ?[id number] ?Pt. ? Col Date: ?? 04/26/2011 ? /Sex: ?1965,(45 years),Male ? Rec Date: ?? 04/26/2011 ? LOC: ?4T ? SURGICAL PATHOLOGY ? ---Pathologic Diagnosis--- ? A - Duodenum, biopsy: ? Peptic-type duodenitis. ? B - Antrum, biopsy: ? Gastric antrum-type mucosa with H.pylori chronic inactive gastritis. ? Immunostaining for H. pylori is positive. ? CR-0 ? 04/28/11 ? BJM ? 04/28/11 Verified by: ? Rc Mathews MD ? Pathologist ? (Electronic Signature) ? The attending pathologist whose signature appears on this report has ? reviewed all diagnostic slides and has edited the gross and/or ? microscopic portion of the report in rendering the final pathologic ? diagnosis. ? ---Microscopic Description--- ? Slides reviewed, microscopic description not recorded. ? Immunohistochemistry Studies: ? Formalin-fixed, paraffin-embedded tissue sections are studied using the B- ? SA system technique with appropriate positive and negative controls. ??These ? IHC studies provide the pathologist with adjunctive diagnostic information. ? Antibody specificity has been verified by testing antibodies on a series of ? in-house tissues with known immunohistochemical performance ? characteristics. The clinical interpretation of any antibody positive ? staining or its absence is evaluated within the context of clinical ? presentation, morphology, histopathological criteria and other diagnostic ? tests. ? Block ?Antibody ? Result (Positive/Negative) ? B1 ? H. pylori ? Positive. ? ---Gross Description--- ? A - Labeled/Fixative: Duodenal biopsies, formalin. ? Qty/Size/Weight: ?Six, averaging 0.3 cm. ? Tissue Description: ?? Soft, figueroa tissues. ? Sections/Processing: ??(T2) ? [facility] ? Provider: ?? KIRSTEN DAMON ?? Pt. Name: ?? SAMY PATRICIO JR ? Acc #: ?[id number] ?Pt. ? Col Date: ?? 04/26/2011 ? /Sex: ?1965,(45 years),Male ? Rec Date: ?? 04/26/2011 ? LOC: ?4T ? SURGICAL PATHOLOGY ? B - Labeled/Fixative: Antral biopsies, formalin. ? Qty/Size/Weight: ?Four, averaging 0.3 cm. ? Tissue Description: ?? Soft, figueroa tissues. ? Sections/Processing: ??(T1) ??aje/SNS ? ---Clinical Information--- ? Specimen Submitted: ? A - Duodenal biopsies ? B - Antral biopsies ? Clinical History/Diagnosis: ? Multiple erosions in duodenum. CERNER MILLENNIUM 04/26/2011 11:2 5 AM EST Kirsten Damon MD PATHOLOGY/CYTOLOGY O SAEID Performing Organization Address [facility] de Phone Number [facility] * Specimen to Pathology (surgical or derm) (04/26/2011 9:53 AM EST) AP Specimen 04/26/2011 9:53 AM EST 04/26/2011 9:53 AM EST Narrative [facility] - 04/26/2011 9:53 AM EST Specimen requisition ordered. ??Separate Pathology report to follow Kirsten Damon MD PATHOLOGY/CYTOLOGY O SAEID Performing Organization Address [facility] de Phone Number [facility] * Specimen to Pathology (surgical or derm) (04/26/2011 9:53 AM EST) AP Specimen 04/26/2011 9:53 AM EST 04/26/2011 9:53 AM EST Narrative [facility] - 04/26/2011 9:53 AM EST Specimen requisition ordered. ??Separate Pathology report to follow Kirsten Damon MD PATHOLOGY/CYTOLOGY O SAEID Performing Organization Address [facility] de Phone Number [facility] * UPPER GI ENDOSCOPY (04/26/2011 8:42 AM EST) UPPER GI ENDOSCOPY [facility] Endoscopy ___ Patient Name: Samy Patricio ? Procedure Date: 04/26/2011 8:42 AM ? Date of : 1965 ? Age: 45 ? Order #: [id number] ? ___ Procedure: ? Upper GI endoscopy Indications: ? Heartburn, Epigastric abdominal pain Providers: ? Kirsten Damon MD, Masha ? GUILLAUME Johnson, Aiden Iyer, ? Outsole Rounder Referring MD: ?Altaf Hoover MD Medicines: ? Midazolam 4 mg IV, Fentanyl 200 ? micrograms IV, Benzocaine spray Complications: ? No immediate complications. ___ Procedure: ? Pre-Anesthesia Assessment: ? - ASA Grade Assessment: I - A normal, ? healthy patient. ? - Mental Status Examination: alert ? and oriented. ? - Airway Examination: normal ? oropharyngeal airway and neck ? mobility. ? - Respiratory Examination: clear to ? auscultation. ? - CV Examination: normal. ? The procedure, indications, benefits, ? risks and alternatives were explained ? to the patient. Specifically ? discussed were potential ? complications including, but not ? limited to, bleeding, perforation, ? infection, missing a cancer, and ? adverse medication reactions. The ? upper GI endoscopy was accomplished ? without difficulty. The patient ? tolerated the procedure well. ? Findings: [...] erosions ? - Multiple erosions in the bulb and ? post bulbar duodenum. Recommendation: ?- Await pathology results. ? - If these have developed while on a ? PPI, must consider other etiologies ? such as NSAID damage, H. pylori or ? hypergastrinemic conditions. ? _ Kirsten Damon MD 04/26/2011 10:04 AM ? Number of Addenda: 0 Note Initiated On: 04/26/2011 8:42 AM PROVATION 04/26/2011 8:42 AM EST Altaf Hoover MD GENERAL SURGICAL ORD ERABLES PROVATION * POCT GLUCOSE LAB USE ONLY (04/26/2011 8:29 AM EST) Glucose, POC 163 60 - 199 mg/dL NAYELI ZHANGIUM Comment: Supplemental ranges: <110 mg/dL before meals <200 mg/dL all other times of the day Blood specimen (specimen) 04/26/2011 8:29 AM EST 04/26/2011 8:29 AM EST Kirsten Damon MD POINT OF CARE TEST O RDERABLES [facility] documented in this encounter Visit Diagnoses Not on filedocumented in this encounter Administered Medications Inactive Administered Medications - up to 3 most recent administrations Medication Order MAR Action Action Date Dose Rate Site sodium chloride 0.9% infusion 30 mL/hr, Intravenous, CONTINUOUS, Starting on Mon04/26/11 at 0830, Until Mon04/26/11 at 1403, Endoscopy (Day of Procedure) New Bag 04/26/2011 8:30 AM EST 30 mL/hr 30 mL/hr documented in this encounter Active and Recently Administered Medications Times are shown in EST. Continuous Medication Order 04/24/2011 04/25/2011 04/26/2011 sodium chloride 0.9% infusion (CANCELED) 30 mL/hr, Intravenous, CONTINUOUS, Starting on e 04/26/11 at 0830, Until 04/26/11 at 1403, Endoscopy (Day of Procedure) 0830 (New Bag - Prov ider: Radha Grace RN) PRN Medication Order 04/24/2011 04/25/2011 04/26/2011 benzocaine (HURRICANE) 20 % oral spray (CANCELED) CONTINUOUS PRN, Pain, Starting on Mon04/26/11 at 0937, Until 04/26/11 at 1403, Intra-Operative (Intra-Procedure) 0937 (New Bag - Prov ider: Kirsten Damon MD - Comment: applied to back of tongue/throat) fentaNYL 50mcg/mL injection (CANCELED) ONCE PRN, Starting on Mon04/26/11 at 0931, Until 04/26/11 at 1403, Pain, Intra-Operative (Intra-Procedure), Routine 0931 (Given - Provid er: Masha Johnson RN)0940 (Given - Provider: Masha Johnson RN)0942 (Given - Provider: Masha Johnson RN) midazolam (VERSED) injection (CANCELED) ONCE PRN, Starting on Mon04/26/11 at 0931, Until Mon04/26/11 at 1403, Sleep, Intra-Operative (Intra-Procedure), Routine 0931 (Given - Provid er: Masha Johnson RN)0939 (Given - Provider: Masha Johnson RN)0942 (Given - Provider: Masha Johnson RN) documented in this encounter Care Teams Value Engineer Relationship Specialty Start Date End Date Altaf Hoover MD [address] [place] [address] PCP - General 04/19/11 09/18/17 documented as of this encounter
--- OUTSIDE RECORDS SUMMARY | 2023-10-24 16:01 | XMS_ITS | Encounter Summary ---
[place] [address] Care Team Providers Care Design Agent Name Role Phone Sae Marr MD Primary Care Provider [phone] Encounter Details Date Type Department Care Team (Late st Contact Info) Description 08/06/2019 [place] [address] Pramod Arana MD [facility] [place] [address] Social History Tobacco Use Types Packs/Day Years [...] encounter Miscellaneous Notes * Telephone Encounter - Pramod Arana MD - 08/06/2019 12:18 AM EDT Telephone Triage Note Initial Contact Date: 08/06/2019 Initial Contact Time: 1218 Referring Provider: Dallas Gutierrez MD Patient Location: [facility] Presenting Symptoms per OSH: 53 year old man with a history of CAD, tobacco use, DM2, HLD on atorvastatin presenting to [facility] with inferior STEMI. Had a syncopal episode at home, brought in by EMS on transcutaneous pads. Currently on dopamine gtt. SBP 60-80s. ECG showing inferior [address] with reciprocal changes in the lateral leads. -- Initial plan was to give full dose lytic, full dose ASA, clopidogrel 300, heparin bolus and gtt.Intubate, start epi if needed for BP or HR; [employer] air not flying tonight, will likely come by ground -- Plan will be to send out STEMI alert page followed by analytical laboratory technician alert page when he leaves [facility] and bring him to our ED first before the analytical laboratory technician I reconnected with [facility] after the patient was given [...] be coming to our ED first before analytical laboratory technician. Will send out STEMI alert & analytical laboratory technician alert when he leaves [facility] (discussed with Dr. Merino). : [phone] Above recommendations/plans are based on my conversation with the referring provider. I have not personally interviewed or examined this patient. documented in this encounter Plan of Treatment Upcoming Encounters Date Type Department Care Team (Late st Contact Info) Description 03/20/2024 10:00 AM EST Office [place] [address] Tania Gates OD [facility] [place] [address] documented as of this encounter Visit Diagnoses Not on filedocumented in this encounter Care Teams Design Agent Relationship Specialty Start Date End Date Sae Marr MD PCP - General General Internal Medicine 5/ 11/13 documented as of this encounter
--- OUTSIDE RECORDS SUMMARY | 2023-10-24 16:01 | XMS_ITS | Encounter Summary ---
Author Organization [facility] [place] [address] Care Team Providers Care Auto Electrical Technician Name Role Phone Unavailable Primary Care Provider Unavailabl e Encounter Details Date Type Department Care Team (Late st Contact Info) Description 09/21/2017 Ancillary Procedure [place] [address] Robinson Vazquez, EVENT SALES ASSISTANT [address] [place] [address] Social History Tobacco Use Types Packs/Day Years Used Date Smoking Tobacco: Every Day Cigarettes Smokeless Tobacco: Never Alcohol Use Standard Drinks/Week Comments Yes 0 [...] 10:00 AM EST Office [place] [address] Tania Gates OD [facility] [place] [address] documented as of this encounter Procedures Procedure Name Priority Date/Time Associated Diagnosis Comments FILM LIBRARY STORAGE ONLY MR SPINE Routine 09/21/2017 12:00 AM EDT documented in this encounter Results * Film Library- Storage Only MR Spine (09/21/2017 12:00 AM EDT) Narrative KERRI - 04/01/2022 12:20 AM EST This exam is auto-finalizing. It's purpose is for storage only. Robinson Vazquez APRN IMG FILM LIBRARY O RDERABLES Performing Organization Address City/State/[facility] Co de Phone Number [place], [place] documented in this encounter Visit Diagnoses Not on filedocumented in this encounter
--- OUTSIDE RECORDS SUMMARY | 2023-10-24 16:01 | XMS_ITS | Encounter Summary ---
[place] [address] Care Team Providers Care Assistant Professor Of Communication Name Role Phone Altaf Hoover MD Primary Care Provider [phone] Encounter Details Date Type Department Care Team (Late st Contact Info) Description 04/26/2011 9:30 AM EST - 04/26/2011 10:30 AM EST Surgery [place] [address] Kirsten Damon MD [facility] [place] [address] EGD WITH BIOPSY (WRVU 2.39) Social History [...] encounter Discharge Instructions * Discharge Instructions* Pratima Strong, GUILLAUME - 04/26/2011 10:04 AM EST UPPER GI [...] not get better as expected. Monday-Monday Clinic [phone] 8a-5p Same Day Endo [phone] 7a-8p Otherwise contact [phone] and ask to speak to the clerical adjuster security incident response specialist Follow-up care is a [place] part of [...] 10:00 AM EST Office [place] [address] Tania Gates OD [facility] [place] [address] documented as of this encounter Procedures Procedure [...] 11:25 AM EST) Surgical Pathology Report ? [facility] ? Provider: ?? KIRSTEN DAMON ?? Pt. Name: ?? GIDEON SMITH, SAMY Oreilly ? Acc #: ?[id number] ?Pt. ? Col Date: ?? 04/26/2011 ? [...] Soft, figueroa tissues. ? Sections/Processing: ??(T2) ? [facility] ? Provider: ?? KIRSTEN DAMON ?? Pt. Name: ?? SAMY PATRICIO JR ? Acc #: ?[id number] ?Pt. ? Col Date: ?? 04/26/2011 ? [...] Clinical History/Diagnosis: ? Multiple erosions in duodenum. [facility] 04/26/2011 11:2 5 AM EST Kirsten Damon MD PATHOLOGY/CYTOLOGY O SAEID Performing Organization Address [facility] de Phone Number [facility] * Specimen to Pathology (surgical or derm) (04/26/2011 9:53 AM EST) AP Specimen 04/26/2011 9:53 AM EST 04/26/2011 9:53 AM EST Narrative [facility] - 04/26/2011 9:53 AM EST Specimen requisition ordered. ??Separate Pathology report to follow Kirsten Damon MD PATHOLOGY/CYTOLOGY O SAEID Performing Organization Address [facility] Co de Phone Number [facility] * Specimen to Pathology (surgical or derm) (04/26/2011 9:53 AM EST) AP Specimen 04/26/2011 9:53 AM EST 04/26/2011 9:53 AM EST Narrative [facility] - 04/26/2011 9:53 AM EST Specimen requisition ordered. ??Separate Pathology report to follow Kirsten Damon MD PATHOLOGY/CYTOLOGY O SAEID Performing Organization Address [facility] Co de Phone Number [facility] * UPPER GI ENDOSCOPY (04/26/2011 8:42 AM EST) UPPER GI ENDOSCOPY [facility] Endoscopy ___ Patient Name: Samy Patricio ? Procedure Date: 04/26/2011 8:42 AM ? Date of : 1965 ? Age: 45 ? Order #: [id number] ? ___ Procedure: ? Upper GI endoscopy Indications: ? Heartburn, Epigastric abdominal pain Providers: ? Kirsten Damon MD, Masha ? GUILLAUME Johnson, Aiden Iyer, ? Beam Dyer Referring MD: ?Altaf Hoover MD Medicines: ? [...] Glucose, POC 163 60 - 199 mg/dL [facility] Comment: Supplemental ranges: <110 mg/dL before meals <200 mg/dL all other times of the day Blood specimen (specimen) 04/26/2011 8:29 AM EST 04/26/2011 8:29 AM EST Kirsten Damon MD POINT OF CARE TEST O RDERABLES Performing Organization Address [facility] Co de Phone Number [facility] documented in this encounter Visit Diagnoses Not on filedocumented in this encounter Administered Medications Inactive Administered Medications - up to 3 most recent administrations Medication Order MAR Action Action Date Dose Rate Site benzocaine (HURRICANE) 20 % oral spray CONTINUOUS PRN, Pain, Starting on Mon04/26/11 at 0937, Until Mon04/26/11 at 1403, Intra-Operative (Intra-Procedure) New Bag 04/26/2011 9:37 AM EST 20 % fentaNYL 50mcg/mL injection ONCE PRN, Starting on Mon04/26/11 at 0931, Until Mon04/26/11 at 1403, Pain, Intra-Operative (Intra-Procedure), Routine Given 04/26/2011 9:42 AM EST 50 mcg Given 04/26/2011 9:40 AM EST 50 mcg Given 04/26/2011 9:31 AM EST 100 mcg midazolam (VERSED) injection ONCE PRN, Starting on Mon04/26/11 at 0931, Until 04/26/11 at 1403, Sleep, Intra-Operative (Intra-Procedure), Routine Given 04/26/2011 9:42 AM EST 1 mg Given 04/26/2011 9:39 AM EST 1 mg Given 04/26/2011 9:31 AM EST 2 mg sodium chloride 0.9% infusion 30 mL/hr, Intravenous, CONTINUOUS, Starting on 04/26/11 at 0830, Until 04/26/11 at 1403, Endoscopy (Day of Procedure) New Bag 04/26/2011 8:30 AM EST 30 mL/hr 30 mL/hr documented in this encounter Active and Recently Administered Medications Times are shown in EST. Continuous Medication Order 04/24/2011 04/25/2011 04/26/2011 sodium chloride 0.9% infusion (CANCELED) 30 mL/hr, Intravenous, CONTINUOUS, Starting on 04/26/11 at 0830, Until 04/26/11 at 1403, Endoscopy (Day of Procedure) 0830 (New Bag - Prov ider: Radha Grace RN) PRN Medication Order 04/24/2011 04/25/2011 04/26/2011 benzocaine (HURRICANE) 20 % oral spray (CANCELED) CONTINUOUS PRN, Pain, Starting on e 04/26/11 at 0937, Until 04/26/11 at 1403, Intra-Operative (Intra-Procedure) 0937 (New Bag - Prov ider: Kirsten Damon MD - Comment: applied to back of tongue/throat) fentaNYL 50mcg/mL injection (CANCELED) ONCE PRN, Starting on 04/26/11 at 0931, Until 04/26/11 at 1403, Pain, Intra-Operative (Intra-Procedure), Routine 0931 (Given - Provid er: Masha Johnson RN)0940 (Given - Provider: Masha Johnson RN)0942 (Given - Provider: Masha Johnson RN) midazolam (VERSED) injection (CANCELED) ONCE PRN, Starting on 04/26/11 at 0931, Until 04/26/11 at 1403, Sleep, Intra-Operative (Intra-Procedure), Routine 0931 (Given - Provid er: Masha Johnson RN)0939 (Given - Provider: Masha Johnson RN)0942 (Given - Provider: Masha Johnson RN) documented in this encounter Care Teams Assistant Professor Of Communication Relationship Specialty Start Date End Date Altaf Hoover MD [address] [place] [address] PCP - General 04/19/11 09/18/17 documented as of this encounter
--- OUTSIDE RECORDS SUMMARY | 2023-10-24 16:01 | XMS_ITS | Encounter Summary ---
[place] [address] Care Team Providers Care Material Hauler Name Role Phone Sae Marr MD Primary Care Provider [phone] Reason for Visit * Reason Comments Hospital Transfer Chest Pain * Auth/Cert Specialty Diagnoses / Procedures Referred By Contac t Referred To Contact Diagnoses STEMI (ST elevation myocardial infarction) ST elevation myocardial infarction (STEMI), unspecified artery STEMI Referral ID Status Reason Start Date Expiration Date Visits Re quested Visits Authorized [id number] 1 1 Encounter Details Date Type Department Care Team (Late st Contact Info) Description 08/06/2019 2:45 AM EDT - 08/06/2019 4:26 AM EDT Surgery [place] [id number] Jung Merino MD [facility] [place] [address] CARDIAC CATHETERIZATION Social History Tobacco Use Types [...] - documented in this encounter Discharge Summaries * Drew Damon MD - 08/07/2019 5:42 PM EDT Cardiology - Discharge Summary Patient Name: Samy Patricio Jr. Patient Age: 53 y.o. Birthdate: 1965 Admit date: 08/06/2019 Discharge date and time: 08/07/2019 Attending Physician: Tariq Guerrero MD Follow-up Recommendations for Providers: 1. PRIMARY CARE - SAE MARR MD, August - [[phone]] - Please follow up with patient regarding his recent hospitalization for Inferior STEMI, s/p EDEN toRCA. - Please assess when appropriate to initiate Lisinopril; recommend BMP in the next 5-7 days to ensure that renal function is stable. - Please continue to certified drug counselor regarding smoking cessation; he has been [...] a NicotinePatch. - LVEDP was 21 on [facility] - please assess need for maintenance diuretic. [...] compared to ticagrelor or plavix, reducing stroke, CO and (NEJM 2019). ?? Give plavix 75 [...] prompted his to call 911. Per the catalyst manufacturing operator's instructionshe took SLN x3, but did not experience any relief of symptoms. ?? EMS arrived and noted his heart rate to be in the 30s with blood pressures 60s/30s. He was transcutaneously paced en route to [facility]. EKG at [facility] showed STEs in the inferior leads with [...] epinephrine. ?? He was transferred to the [facility] [place] for evaluation. On arrival to [facility] he had continued chest pain, but his EKG changes had resolved. He was on 1.5 of epi with heart rates in the 80s and blood pressures in the 110s/50s. He was taken immediately to the specialist employee labor relations where he had a EDEN placed to his proximal RCA. He was weaned off of epinephrine in the specialist employee labor relations and transferred to the CSCU. ?? In [...] DILATION AND TEST, RAMIRO; TECHRAMIRO Ophthalmology at [facility] Arrive at: Caseworker Intake Area [phone] Future Orders Complete By Expires Referral to Cardiac Rehab [[id number] Custom] As directed Process Instructions: If no progress note charted, please enter Clinical details in comments. Scheduling Instructions: Questions: My question or request is: STEMI. Cardiac rehab at [facility]. Referral to Cardiology [REF12 Custom] As directed [...] appointments: During 8am-5pm Monday through Monday call [phone] to speak with a nurse in the cardiology clinic All other times call [phone] and ask to speak to the vessel engineer operations business partner. Activity level: - No heavy lifting (more [...] Center 02/11/2020 8:40 AM Tania Gates OD [facility] OPHT 4B [facility] Follow-Up Appointments Date and Time Provider and Specialty Location August 18 8:40am [facility] September 04 YULIYA GTZ MD [place], [place] Band Sewer: Yuliya Gtz MD at [phone] PCP: Sae Marr MD at [phone] Your Primary Care Provider: Sae Marr MD [address] [place] [phone] For questions regarding issues relating to your hospitalization on the Hospital Medicine Service, please contact your inpatient physician through the [facility] Forest Science Professor [phone]. Issues after hours and on weekends will be handled by the Hospitalist staff on-call. For questions regarding this document or issues relating to this hospitalization on the Medical Service, please contact your inpatient physician through the [facility] Forest Science Professor . Issues afterhours and on weekends will be handled by the Band Sewer staff on-call. documented in this encounter Discharge [...] appointments: During 8am-5pm Monday through Monday call [phone] to speak with a nurse in the cardiology clinic All other times call [phone] and ask to speak to the vessel engineer operations business partner. Activity level: - No heavy lifting (more [...] Center 02/11/2020 8:40 AM Tania Gates, OD [facility] OP[facility] 4B [facility] Follow-Up Appointments Date and Time Provider and Specialty Location August 18 8:40am [facility] September 04 YULIYA GTZ MD [place], [place] Band Sewer: Yuliya Gtz MD at [phone] PCP: Sae Marr MD at [phone] Your Primary Care Provider: Sae Marr MD [address] [place] [address] For questions regarding issues relating to your hospitalization on the Hospital Medicine Service, please contact your inpatient physician through the [facility] Forest Science Professor [phone]. Issues after hours and on weekends will be handled by the Hospitalist staff on-call. * Attachments The following attachments cannot be sent through Care Everywhere. * Smoking: Stopping (American) * Smoking: Anti-Smoking Medication: Deciding About (American) * Smoking Cessation: Health Benefits: General Info (American) * Cardiac Rehabilitation (American) * Heart Attack: Medicine for Secondary Prevention (American) * PCI (Percutaneous Coronary Intervention): Post-op (American) documented in this encounter Medications at Time [...] - S/P TNK prior to transfer to [facility] - S/P Prasugrel & ASA load followed by maintenance ASA 81 mg & Prasugrel 10 mg - LVEDP 21 in the Customs Compliance Specialist - Prior to Cardiac Catheterization, noted to [...] was high. - F/u with PCP for skilled nursing DM control. 3. COPD - Duoneb q4h [...] diuretic. Drew Damon MD 08/07/2019 Cardiology S2, 334 Associated attestation - Tariq Guerrero MD - [...] PCP: Sae Marr MD PCP phone #: [phone] ID/Chief Complaint: Inferior STEMI History of Present [...] prompted his to call 911. Per the catalyst manufacturing operator's instructionshe took SLN x3, but did not experience any relief of symptoms. EMS arrived and noted his heart rate to be in the 30s with blood pressures 60s/30s. He was transcutaneously paced en route to [facility]. EKG at [facility] showed STEs in the inferior leads with [...] to epinephrine. He was transferred to the [facility] ED for evaluation. On arrival to [facility] he had continued chest pain, but his EKG changes had resolved. He was on 1.5 of epi with heart rates in the 80s and blood pressures in the 110s/50s. He was taken immediately to the specialist employee labor relations where he had a EDEN placed to his proximal RCA. He was weaned off of epinephrine in the specialist employee labor relations and transferred to the CSCU. In the [...] by mouth daily. ??? [facility] USE DIRECTED. Active ??? 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 Invalid input(s): [id number] Heme: No results for input(s): LDH, HAPTOGLOBIN, [...] Admit to Cardiology, S2 Team Pager # [phone] #CAD #inferior STEMI - s/p asa 324 [...] cardiology and will be rushed to the Customs Compliance Specialist. Review of Systems: Review of Systems Constitutional: [...] by cardiology and was rushed to the Customs Compliance Specialist. No infectious symptoms concerning for COVID. [place] [...] in the outpatient cardiac rehabilitation program at [facility] was discussed. Patient agrees to a referral to this program. He participated in a few sessions of cardiac rehab [facility] in 2018 s/p PCI. 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 No problem w/ADL's Living Situation: lives w/spouse in a single level w/3STE and also has a camp w/2STE Physical Address [address] [place], [place] [address] [place] [address] Supports: Lives w/ and [id number] who are both supportive. Also has friends [...] home via car w/ when medically ready. mechanical detailer/Rn Delivery will continue to follow patient???s progress and remain available if situation changes for coordination of care, psychosocial support and/or discharge planning. Kareen Samayoa RN Pager [phone] Extension [phone] * Plan of Care - Natalia Renee [...] concerns. Thank you. Bryn Guevara, MSN, RN-, [facility] Tobacco Kindergarten Aide [facility] Pager #[phone] * Plan of Care - Daniel Sands [...] Merino MD - 08/06/2019 3:50 AM EDT [facility] Operative Note Patient Name: Samy Patricio Jr. : [id number] MR#: [id number] Case Date: 08/06/2019 Surgeon: Surgeon(s) and Role: [...] compared to ticagrelor or plavix, reducing stroke, CO and (NEJM 2019). Give plavix 75 mg [...] MERINO MD * ED Triage - Candace Zhao RN - 08/06/2019 2:03 AM EDT Patient arrived via EMS from OSH for St[facility] specialist employee labor relations. 3PM patient started to have chest pain continued to get worse. Took 3 SL nitro at home and EMS was called. documented in this encounter Plan of Treatment Upcoming Encounters Date Type Department Care Team (Late st Contact Info) Description 03/20/2024 10:00 AM EST Office [place] [address] [facility] [place] [address] Scheduled Orders Name Type Priority Associated Diagnoses [...] 5:53 AM EDT DIFFERENTIAL, AUTOMATED Routine 08/07/19 20 5:53 AM EDT HC VENIPUNCTURE Routine 08/07/2019 [...] Glucose, POC 286(H) 65 - 199 mg/dL [facility] Comment: Supplemental ranges: <140 mg/dL before meals <180 mg/dL all other times of the day Blood specimen (specimen) 08/07/2019 4:53 PM EDT 08/07/2019 4:53 PM EDT Tariq Guerrero MD POINT OF CARE TEST O RDERABLES [facility] [place] [address] * POCT Glucose (08/07/2019 1:55 PM EDT) Glucose, POC 178 65 - 199 mg/dL [facility] Comment: Supplemental ranges: <140 mg/dL before meals <180 mg/dL all other times of the day Blood specimen (specimen) 08/07/2019 1:55 PM EDT 08/07/2019 1:55 PM EDT Tariq Guerrero MD POINT OF CARE TEST O RDERABLES [facility] [place] [address] * CK (08/07/2019 12:05 PM EDT) Creatine Kinase 133 0 - 200 unit/L [facility] Blood specimen (specimen) 08/07/2019 12:05 PM EDT 08/07/2019 12:20 PM EDT Narrative Resulting Agency Comment Spec In Lab Tariq Guerrero MD CHEMISTRY ORDERABLES Performing Organization Address [facility] Co de Phone Number [facility] [place] [address] * (ABNORMAL) POCT Glucose (08/07/2019 11:20 AM EDT) Glucose, POC 309(H) 65 - 199 mg/dL [facility] Comment: Supplemental ranges: <140 mg/dL before meals <180 mg/dL all other times of the day Blood specimen (specimen) 08/07/2019 11:20 AM EDT 08/07/2019 11:20 AM EDT Tariq Guerrero MD POINT OF CARE TEST O RDERABLES Performing Organization Address [facility] de Phone Number [facility] [place] [address] * EKG 12 Lead (08/07/2019 8:57 AM EDT) Ventricular rate 75 BPM MUSE SYSTEM Atrial Rate 75 BPM MUSE SYSTEM P-R Interval 176 ms MUSE SYSTEM QRS Duration 94 ms MUSE SYSTEM Q-T Interval 390 ms MUSE SYSTEM QTC Calculated (Bezet) 435 ms MUSE SYSTEM Calculated P Surprise 67 degrees MUSE SYSTEM Calculated R Surprise 47 degrees MUSE SYSTEM Calculated T Surprise -5 degrees MUSE SYSTEM INTERPRETATION Normal sinus rhythm T wave abnormality, consider inferior ischemia Abnormal ECG When compared with ECG of 06-AUG-2019 20:18, (unconfirmed) No significant change was found Confirmed by MD Yaima, Timothy Collins ([id number]) on 08/07/2019 5:14:03 PM MUSE SYSTEM 08/07/2019 8:57 AM EDT 08/07/2019 5:14 PM EDT Tiffanie Espino MD ECG ORDERABLES Performing Organization Address [facility] Co de Phone Number MUSE SYSTEM * POCT Glucose (08/07/2019 7:23 AM EDT) Glucose, POC 160 65 - 199 mg/dL [facility] Comment: Supplemental ranges: <140 mg/dL before meals <180 mg/dL all other times of the day Blood specimen (specimen) 08/07/2019 7:23 AM EDT 08/07/2019 7:23 AM EDT Tariq Guerrero MD POINT OF CARE TEST O RDERABLES Performing Organization Address City/[facility]/ZIP Co de Phone Number [facility] [place] [address] * CK (08/07/2019 5:53 AM EDT) [facility] Creatine Kinase 168 0 - 200 unit/L [facility] Blood specimen (specimen) Venous Draw / Unknown 08/07/2019 5:53 AM EDT 08/07/2019 6:07 AM EDT Narrative Resulting Agency Comment Spec In Lab Philip Johnson MD CHEMISTRY ORDERABLES Performing Organization Address [facility] Co de Phone Number [facility] [place] [address] * (ABNORMAL) Troponin (08/07/2019 5:53 AM EDT) [facility] Troponin-T 0.50(H) 0.00 - 0.00 ng/mL [facility] Comment: The 99th percentile for Troponin T is less than 0.01 ng/mL, any detectable cTnT concentration using this assay should be considered elevated. According to the third universal definition of myocardial infarction the following criteria with a clinical presentation consistent with acute myocardial ischemia meets the diagnosis for a myocardial infarction (CO). Detection of a rise and/or fall of cTnT, with at least one value greater than the 99th percentile (> or = 0.01) and with at least one of the following ?? Symptoms of ischemia ?? New or presumed new significant WX-nclelfr-B wave (ST-T) changes or new left bundle [...] additional sample may be indicated. Reference: Third [place] Definition of Myocardial Infarction. Journal of the [place] College of [employer]iology 2012;60:1581-98 Blood specimen (specimen) 08/07/2019 5:53 AM EDT 08/07/2019 5:59 AM EDT Narrative Resulting Agency Comment Spec In Lab Tariq Guerrero MD CHEMISTRY ORDERABLES [facility] [place] [address] * Differential, Automated (08/07/2019 5:53 AM EDT) Neutrophil % 59.8 % [facility] Neutrophil Absolute 4.63 1.70 - 6.10 x10(3)/[facility] Lymph % 24.9 % [facility] Lymphocytes Abs 1.9 0.9 - 3.2 x10(3)/[facility] Monocyte % 8.5 % [facility] Monocyte Abs 0.7 0.3 - 0.9 x10(3)/[facility] Eos % 5.8 % [facility] Eosinophils Abs 0.4 0.0 - 0.4 x10(3)/[facility] Basophil % 0.5 % [facility] Baso Absolute 0.0 0.0 - 0.1 x10(3)/[facility] Immature Gran % 0.50 % [facility] Comment: Immature granulocytes(IG's)percentage and absolute count will include metamyelocytes, myelocytes, and promyelocytes. Blood smears from CBCs yielding IG's will be scanned manually for concordance. If this scan disagrees with the automated IG or if promyelocytes are noted, a manual differential will be performed. Immature Gran Absolute 0.04 0.00 - 0.04 x10(3)/[facility] Blood specimen (specimen) 08/07/2019 5:53 AM EDT 08/07/2019 5:59 AM EDT Narrative Resulting Agency Comment Spec In Lab Lovely Moise MD HEMATOLOGY ORDERABLE S [facility] [place] [address] * Hemogram (08/07/2019 5:53 AM EDT) White Blood Cell 7.8 4.0 - 9.5 x10(3)/[facility] Red Blood Cell 4.71 4.58 - 5.54 x10(6)/[facility] Hemoglobin 14.5 13.7 - 16.5 gm/dL [facility] Hematocrit 43.0 40.5 - 48.5 % [facility] Mean Cell Volume 91.3 82.9 - 93.1 [facility] Mean Cell Hemoglobin 30.8 27.5 - 32.1 pg [facility] Mean Cell Hemoglobin Concentration 33.7 32.0 - 35.7 gm/dL [facility] Platelet 181 145 - 357 x10(3)/[facility] RDW Standard Deviation 44.3 36.0 - [address].0 [facility] RDW coefficient of variation 13.1 11.4 - 13.8 % [facility] Mean Platelet Volume 9.6 7.6 - 12.9 [facility] NRBC% auto 0.0 % [facility] NRBC Absolute 0.000 0.000 - 0.000 x10(3)/[facility] Blood specimen (specimen) 08/07/2019 5:53 AM EDT 08/07/2019 5:59 AM EDT Narrative Resulting Agency Comment Spec In Lab Lovely Moise MD HEMATOLOGY ORDERABLE S Performing Organization Address City/[facility]/ZIP Co de Phone Number [facility] [place] [address] * Magnesium (08/07/2019 5:53 AM EDT) Magnesium 0.86 0.69 - 1.07 mmol/L [facility] Blood specimen (specimen) 08/07/2019 5:53 AM EDT 08/07/2019 5:59 AM EDT Narrative Resulting Agency Comment Spec In Lab Tariq Guerrero MD CHEMISTRY ORDERABLES Performing Organization Address [facility] Co de Phone Number [facility] [place] [address] * (ABNORMAL) BMP w/fasting Glucose (08/07/2019 5:53 AM EDT) Glucose Fasting 152(H) 65 - 99 mg/dL [facility] Comment: ?Fasting* Glucose Interpretive Criteria Normal [...] of Diabetes Mellitus, Position Statement from the [place] [employer] Association. ??Diabetes Care, Volume 33, Supplement 1, Mar 2009 Blood Urea Nitrogen 14 10 - 20 mg/dL [facility] Creatinine 1.43 0.80 - 1.50 mg/dL [facility] Sodium 141 135 - 145 mmol/L [facility] Potassium 4.1 3.5 - 5.0 mmol/L [facility] Comment: Please note: ??Patients with WBC >100,000 may have falsely elevated Potassium levels. ??For accurate Potassium quantification in these patients send serum separator tube (gold top) for subsequent determinations. ??Contact the Clinical Chemistry Laboratory if there are any questions. Chloride 100 98 - 107 mmol/L [facility] Carbon Dioxide 30 22 - 31 mmol/L [facility] Anion Gap 11 5 - 15 mmol/L [facility] Calcium 8.9 8.5 - 10.5 mg/dL [facility] Est Glomerular Filtration Rate 56(L) >=60 mL/min/1. 73 m?? [facility] Comment: The eGFR was calculated using the CKD-EPI equation. As with all creatinine based estimates of kidney function, eGFR values calculated with the CKD-EPI equation are not accurate in patients with acute kidney failure, extremes of body mass or the acutely ill. [email or web address] eGFR 65 >=60 mL/min/1. 73 m?? [facility] Comment: The eGFR was calculated using the CKD-EPI equation. As with all creatinine based estimates of kidney function, eGFR values calculated with the CKD-EPI equation are not accurate in patients with acute kidney failure, extremes of body mass or the acutely ill. [email or web address] Blood specimen (specimen) 08/07/2019 5:53 AM EDT 08/07/2019 5:59 AM EDT Narrative Resulting Agency Comment Spec In Lab Tariq Guerrero MD CHEMISTRY ORDERABLES [facility] [place] [address] * POCT Glucose (08/07/2019 4:16 AM EDT) Glucose, POC 120 65 - 199 mg/dL [facility] Comment: Supplemental ranges: <140 mg/dL before meals <180 mg/dL all other times of the day Blood specimen (specimen) 08/07/2019 4:16 AM EDT 08/07/2019 4:16 AM EDT Tariq Guerrero MD POINT OF CARE TEST O RDERABLES Performing Organization Address City/[facility]/ZIP Co de Phone Number [facility] [place] [address] * (ABNORMAL) CK (08/07/2019 12:28 AM EDT) Creatine Kinase 220(H) 0 - 200 unit/L [facility] Blood specimen (specimen) 08/07/2019 12:28 AM EDT 08/07/2019 12:37 AM EDT Narrative Resulting Agency Comment Spec In Lab Tariq Guerrero MD CHEMISTRY ORDERABLES Performing Organization Address [facility] Co de Phone Number [facility] [place] [address] * (ABNORMAL) Troponin (08/07/2019 12:28 AM EDT) Troponin-T 0.62(H) 0.00 - 0.00 ng/mL [facility] Comment: The 99th percentile for Troponin T is less than 0.01 ng/mL, any detectable cTnT concentration using this assay should be considered elevated. According to the third universal definition of myocardial infarction the following criteria with a clinical presentation consistent with acute myocardial ischemia meets the diagnosis for a myocardial infarction ([place]). Detection of a rise and/or fall of cTnT, with at least one value greater than the 99th percentile (> or = 0.01) and with at least one of the following ?? Symptoms of ischemia ?? New or presumed new significant TD-iwvbqjz-S wave (ST-T) changes or new left bundle [...] additional sample may be indicated. Reference: Third [place] Definition of Myocardial Infarction. Journal of the [place] College [employer] Cardiology 2012;60:1581-98 Blood specimen (specimen) 08/07/2019 12:28 AM EDT 08/07/2019 12:37 AM EDT Narrative Resulting Agency Comment Spec In Lab Tariq Guerrero MD CHEMISTRY ORDERABLES Performing Organization Address [facility] Co de Phone Number [facility] [place] [address] * (ABNORMAL) POCT Glucose (08/06/2019 11:26 PM EDT) Pathologist [facility] Glucose, POC 216(H) 65 - 199 mg/dL [facility] Comment: Supplemental ranges: <140 mg/dL before meals <180 mg/dL all other times of the day Blood specimen (specimen) 08/06/2019 11:26 PM EDT 08/06/2019 11:26 PM EDT Tariq Guerrero MD POINT OF CARE TEST O RDERABLES Performing Organization Address [facility] de Phone Number [facility] [facility] [place] [address] * EKG 12 Lead (08/06/2019 8:18 PM EDT) Ventricular rate 81 BPM MUSE SYSTEM Atrial Rate 81 BPM MUSE SYSTEM P-R Interval 178 ms MUSE SYSTEM QRS Duration 96 ms MUSE SYSTEM Q-T Interval 368 ms MUSE SYSTEM QTC Calculated (Bezet) 427 ms MUSE SYSTEM Calculated P Surprise 64 degrees MUSE SYSTEM Calculated R Surprise 52 degrees MUSE SYSTEM Calculated T Surprise 3 degrees MUSE SYSTEM INTERPRETATION Normal sinus rhythm Normal ECG When compared with ECG of 06-AUG-2019 06:13, (unconfirmed) No significant change was found Confirmed by MD Yaima, Timothy Collins ([id number]) on 08/07/2019 4:51:03 PM MUSE SYSTEM 08/06/2019 8:18 PM EDT 08/07/2019 4:51 PM EDT Tariq Guerrero MD ECG ORDERABLES Performing Organization Address [facility] Co de Phone Number MUSE SYSTEM * POCT Glucose (08/06/2019 7:59 PM EDT) Glucose, POC 193 65 - 199 mg/dL [facility] Comment: Supplemental ranges: <140 mg/dL before meals <180 mg/dL all other times of the day Blood specimen (specimen) 08/06/2019 7:59 PM EDT 08/06/2019 7:59 PM EDT Tariq Guerrero MD POINT OF CARE TEST O RDERABLES Performing Organization Address [facility]/ZIP Co de Phone Number [facility] [place] [address] * (ABNORMAL) CK (08/06/2019 6:13 PM EDT) [facility] Creatine Kinase 301(H) 0 - 200 unit/L [facility] Blood specimen (specimen) 08/06/2019 6:13 PM EDT 08/06/2019 7:04 PM EDT Narrative Resulting Agency Comment Spec In Lab Tariq Guerrero MD CHEMISTRY ORDERABLES Performing Organization Address [facility] Co de Phone Number [facility] [place] [address] * (ABNORMAL) Troponin (08/06/2019 6:13 PM EDT) [facility] Troponin-T 0.84(H) 0.00 - 0.00 ng/mL [facility] Comment: The 99th percentile for Troponin T is less than 0.01 ng/mL, any detectable cTnT concentration using this assay should be considered elevated. According to the third universal definition of myocardial infarction the following criteria with a clinical presentation consistent with acute myocardial ischemia meets the diagnosis for a myocardial infarction (CO). Detection of a rise and/or fall of cTnT, with at least one value greater than the 99th percentile (> or = 0.01) and with at least one of the following ?? Symptoms of ischemia ?? New or presumed new significant TV-yvaqpyz-Z wave (ST-T) changes or new left bundle [...] additional sample may be indicated. Reference: Third [place] Definition of Myocardial Infarction. Journal of the [employer] College [employer] 2012;60:1581-98 Blood specimen (specimen) 08/06/2019 6:13 PM EDT 08/06/2019 7:04 PM EDT Narrative Resulting Agency Comment Spec In Lab Tariq Guerrero MD CHEMISTRY ORDERABLES Performing Organization Address [facility] Co de Phone Number [facility] [place] [address] * POCT Glucose (08/06/2019 4:18 PM EDT) Glucose, POC 105 65 - 199 mg/dL [facility] Comment: Supplemental ranges: <140 mg/dL before meals <180 mg/dL all other times of the day Blood specimen (specimen) 08/06/2019 4:18 PM EDT 08/06/2019 4:18 PM EDT Tariq Guerrero MD POINT OF CARE TEST O RDERABLES Performing Organization Address [facility] Co de Phone Number [facility] [place] [address] * Magnesium (08/06/2019 2:06 PM EDT) Magnesium 0.82 0.69 - 1.07 mmol/L [facility] Blood specimen (specimen) 08/06/2019 2:06 PM EDT 08/06/2019 2:18 PM EDT Narrative Resulting Agency Comment Spec In Lab Tariq Guerrero MD CHEMISTRY ORDERABLES Performing Organization Address [facility] Co de Phone Number [facility] [place] [address] * Basic Metabolic Panel (non-fasting) (08/06/2019 2:06 PM EDT) Glucose 108 65 - 199 mg/dL [facility] Comment:Diabetes: >=200 mg/d L plus symptoms Blood Urea Nitrogen 12 10 - 20 mg/dL [facility] Creatinine 1.23 0.80 - 1.50 mg/dL [facility] Sodium 140 135 - 145 mmol/L [facility] Potassium 4.4 3.5 - 5.0 mmol/L [facility] Comment: Please note: ??Patients with WBC >100,000 may have falsely elevated Potassium levels. ??For accurate Potassium quantification in these patients send serum separator tube (gold top) for subsequent determinations. ??Contact the Clinical Chemistry Laboratory if there are any questions. Chloride 101 98 - 107 mmol/L [facility] Carbon Dioxide 26 22 - 31 mmol/L [facility] Anion Gap 13 5 - 15 mmol/L [facility] Calcium 9.3 8.5 - 10.5 mg/dL [facility] Est Glomerular Filtration Rate 67 >=60 mL/min/1. 73 m?? [facility] Comment: The eGFR was calculated using the CKD-EPI equation. As with all creatinine based estimates of kidney function, eGFR values calculated with the CKD-EPI equation are not accurate in patients with acute kidney failure, extremes of body mass or the acutely ill. http://[employer] Row/[facility]ONG[facility]kf eGFR 78 >=60 mL/min/1. 73 m?? [facility] Comment: The eGFR was calculated using the CKD-EPI equation. As with all creatinine based estimates of kidney function, eGFR values calculated with the CKD-EPI equation are not accurate in patients with acute kidney failure, extremes of body mass or the acutely ill. http://[address]/[facility] Blood specimen (specimen) 08/06/2019 2:06 PM EDT 08/06/2019 2:18 PM EDT Narrative Resulting Agency Comment Spec In Lab Tariq Guerrero MD CHEMISTRY ORDERABLES Performing Organization Address City/[facility]/ZIP Co de Phone Number [facility] [place] [address] * (ABNORMAL) CK (08/06/2019 12:05 PM EDT) Creatine Kinase 344(H) 0 - 200 unit/L [facility] Blood specimen (specimen) 08/06/2019 12:05 PM EDT 08/06/2019 12:15 PM EDT Narrative Resulting Agency Comment Spec In Lab Tariq Guerrero MD CHEMISTRY ORDERABLES Performing Organization Address [facility] Co de Phone Number [facility] [place] [address] * (ABNORMAL) Troponin (08/06/2019 12:05 PM EDT) Troponin-T 0.74(H) 0.00 - 0.00 ng/mL [facility] Comment: The 99th percentile for Troponin T is less than 0.01 ng/mL, any detectable cTnT concentration using this assay should be considered elevated. According to the third universal definition of myocardial infarction the following criteria with a clinical presentation consistent with acute myocardial ischemia meets the diagnosis for a myocardial infarction (CO). Detection of a rise and/or fall of cTnT, with at least one value greater than the 99th percentile (> or = 0.01) and with at least one of the following ?? Symptoms of ischemia ?? New or presumed new significant BK-gcrchal-I wave (ST-T) changes or new left bundle [...] additional sample may be indicated. Reference: Third [place] Definition of Myocardial Infarction. Journal of the [employer] College [employer]iology 2012;60:1581-98 Blood specimen (specimen) 08/06/2019 12:05 PM EDT 08/06/2019 12:15 PM EDT Narrative Resulting Agency Comment Spec In Lab Tariq Guerrero MD CHEMISTRY ORDERABLES Performing Organization Address [facility] Co de Phone Number [facility] [place] [address] * POCT Glucose (08/06/2019 11:13 AM EDT) Glucose, POC 106 65 - 199 mg/dL [facility] Comment: Supplemental ranges: <140 mg/dL before meals <180 mg/dL all other times of the day Blood specimen (specimen) 08/06/2019 11:13 AM EDT 08/06/2019 11:13 AM EDT Tariq Guerrero MD POINT OF CARE TEST O RDERABLES Performing Organization Address [facility] Co de Phone Number [facility] [place] [address] * ECHO COMPLETE (08/06/2019 9:20 AM EDT) EF 64 HEARTLAB SYSTEM Anatomical Region Laterality Modality Other 08/06/2019 Narrative 08/06/2019 9:40 AM EDT Procedure: ?Transthoracic Echocardiogram Patient: ?GIDEON STAPLES S ?(Age): 1965(53y) Med Rec#: ? [id number] ?Sex: ?M ? [place] [facility] ?Ht / Wt: ??183(cm)/120(kg) Pt. Loc: ?Adult Floor ? BSA: ?2.4 Study Date: ?? 08/06/2019 ?Pt. Type: Inpatient Tape: ? Referring: EARLE Reading: Jack Lucas ([id number]) Injury Prevention Coordinator: Peter Beaver RDCS, FASE Interpreting Fellow: Tiffanie Hernandez ([id number]) Diagnosis: *ST elevation (STEMI) myocardial infarction of unspecified site (I21.3) Rhythm: ? Sinus BP: ? 108/76 HR: ? 74 SUMMARY: 1. The left ventricular chamber size, wall thickness, and global systolic function are normal with ejection fraction of 64% by Ih's biplane method. There are no left ventricular [...] Vmax ?0.88 ? m/sec ? MV deceleration qbde390.89 ? msec ? MV A-wave Vmax ?0.85 [...] ? Mid-Inferior ?Normal ? Mid-Inferoseptal ?Normal ? [place]-Septal ? Normal ? [place]-Anterior ? Normal ? [place]-Lateral ?Normal ? [place]-Inferior ? Normal ? [place]-Tip ?Normal ? This report has been electronically signed by: Jack Lucas MD ? 08/06/2019 09:39:30 Images reviewed and interpretation verified [facility]ound [facility] Procedure Note Jack Lucas MD - 08/06/2019 Procedure: Transthoracic Echocardiogram Patient: GIDEON Oreilly (Age): 1965(53y) Med Rec#: [id number] Sex: M [place] [facility] Ht / Wt: 183(cm)/120(kg) Pt. Loc: Adult Floor BSA: 2.4 Study Date: 08/06/2019 Pt. Type: Inpatient Tape: Referring: EARLE Reading: Jack Lucas ([id number]) Injury Prevention Coordinator: Peter Beaver RDCS, FASE Interpreting Fellow: Tiffanie Hernandez ([id number]) Diagnosis: *ST elevation (STEMI) myocardial infarction of [...] MV E-wave Vmax 0.88 m/sec MV deceleration eefc537.89 msec MV A-wave Vmax 0.85 m/sec MV [...] Normal Mid-Posterolateral Normal Mid-Inferior Normal Mid-Inferoseptal Normal [place]-Septal Normal [place]-Anterior Normal [place]-Lateral Normal [place]-Inferior Normal [place]-Tip Normal This report has been electronically signed by: Jack Lucas MD 08/06/2019 09:39:30 Images reviewed and interpretation verified [facility] Tiffanie Espino MD ECHO ORDERABLES * POCT Glucose (08/06/2019 7:18 AM EDT) Glucose, POC 170 65 - 199 mg/dL [facility] Comment: Supplemental ranges: <140 mg/dL before meals <180 mg/dL all other times of the day Blood specimen (specimen) 08/06/2019 7:18 AM EDT 08/06/2019 7:18 AM EDT Tariq Guerrero MD POINT OF CARE TEST O RDERABLES [facility] [place] [address] * XR Chest One View (08/06/2019 6:52 [...] report, please contact the number below. ? Electronically signed by: Violeta Fortune MD, [facility] ([phone]), at 08/06/2019 8:34 AM Narrative 08/06/2019 8:34 AM EDT EXAMINATION: XR [...] this report, please contact the number below. Electronically signed by: Violeta Fortune MD, [facility]([phone]), at 08/06/2019 8:34 AM Tiffanie Espino MD IMG DX ORDERABLES * EKG 12 Lead (08/06/2019 6:13 AM EDT) Ventricular rate 80 BPM MUSE SYSTEM Atrial Rate 80 BPM MUSE SYSTEM P-R Interval 190 ms MUSE SYSTEM QRS Duration 90 ms MUSE SYSTEM Q-T Interval 384 ms MUSE SYSTEM QTC Calculated (Bezet) 442 ms MUSE SYSTEM Calculated P Surprise 68 degrees MUSE SYSTEM Calculated R Surprise 59 degrees MUSE SYSTEM Calculated T Surprise 24 degrees MUSE SYSTEM INTERPRETATION Normal sinus rhythm Normal ECG When compared with ECG of 06-AUG-2019 02:05, (unconfirmed) No significant change was found I personally reviewed the tracing and edited the fellows interpretation Confirmed by fellow MD Dee, Jaylin Oviedo ([id number]) on 08/06/2019 1:18:49 PM Confirmed by MD Yaima, Timothy Collins ([id number]) on 08/07/2019 9:47:42 AM MUSE SYSTEM 08/06/2019 6:13 AM EDT 08/07/2019 9:47 AM EDT Tiffanie Espino MD ECG ORDERABLES MUSE SYSTEM * Sedimentation rate (08/06/2019 5:35 AM EDT) [facility] Sedimentation Rate Automated 8 2 - 37 mm/hr [facility] Comment: Effective February 20, [...] MD HEMATOLOGY ORDERABLE S Performing Organization Address [facility] Co de Phone Number [facility] [place] [address] * CRP, acute inflammation (08/06/2019 5:35 AM EDT) [facility] C-Reactive Protein 4.3 <=4.9 mg/L [facility] Blood specimen (specimen) Venous Draw / Unknown 08/06/2019 5:35 AM EDT 08/06/2019 5:44 AM EDT Narrative Resulting Agency Comment Spec In Lab Philip Johnson MD CHEMISTRY ORDERABLES Performing Organization Address [facility] Co de Phone Number [facility] [place] [address] * (ABNORMAL) Differential, Automated (08/06/2019 5:35 AM EDT) Neutrophil % 73.5 % [facility] Neutrophil Absolute 6.30(H) 1.70 - 6.10 x10(3)/[facility] Lymph % 16.2 % [facility] Lymphocytes Abs 1.4 0.9 - 3.2 x10(3)/[facility] Monocyte % 5.5 % [facility] Monocyte Abs 0.5 0.3 - 0.9 x10(3)/[facility] LAB[facility] Eos % 3.6 % [facility] Eosinophils Abs 0.3 0.0 - 0.4 x10(3)/[facility] Basophil % 0.6 % [facility] Baso Absolute 0.0 0.0 - 0.1 x10(3)/[facility] Immature Gran % 0.60 % [facility] Comment: Immature granulocytes(IG's)percentage and absolute count will include metamyelocytes, myelocytes, and promyelocytes. Blood smears from CBCs yielding IG's will be scanned manually for concordance. If this scan disagrees with the automated IG or if promyelocytes are noted, a manual differential will be performed. Immature Gran Absolute 0.05(H) 0.00 - 0.04 x10(3)/[facility] Blood specimen (specimen) 08/06/2019 5:35 AM EDT 08/06/2019 5:41 AM EDT Narrative Resulting Agency Comment Spec In Lab Mendoza Richards MD HEMATOLOGY CASSI HU [facility] [place] [address] * (ABNORMAL) Hemogram (08/06/2019 5:35 AM EDT) White Blood Cell 8.6 4.0 - 9.5 x10(3)/mc L [facility] Red Blood Cell 4.33(L) 4.58 - 5.54 x10(6)/ L [facility] Hemoglobin 13.4(L) 13.7 - 16.5 gm/dL [facility] Hematocrit 40.6 40.5 - 48.5 % [facility] Mean Cell Volume 93.8(H) 82.9 - 93.1 fL [facility] Mean Cell Hemoglobin 30.9 27.5 - 32.1 pg [facility] Mean Cell Hemoglobin Concentration 33.0 32.0 - 35.7 gm/dL [facility] Platelet 192 145 - 357 x10(3)/[facility] LAB[facility] RDW Standard Deviation 45.2(H) 36.0 - 45.0 [facility] LABORATORY RDW coefficient of variation 13.2 11.4 - 13.8 % [facility] Mean Platelet Volume 9.5 7.6 - 12.9 [facility] LABORATORY NRBC% auto 0.0 % [facility] NRBC Absolute 0.000 0.000 - 0.000 x10(3)/[facility] Blood specimen (specimen) 08/06/2019 5:35 AM EDT 08/06/2019 5:41 AM EDT Narrative Resulting Agency Comment Spec In Lab Mendoza Richards MD HEMATOLOGY CASSI HU [facility] [place] [address] * Lipid Panel (Reflex Direct LDL) (08/06/2019 5:35 AM EDT) Cholesterol, Total 89 mg/dL [facility] Comment: Lower Risk: <200 mg/dL Average Risk: 200-239 mg/dL Higher Risk: >mz=269 mg/dL Triglyceride 89 mg/dL [facility] Comment: Average Risk/Lower Risk: <150 mg/dL Borderline High Risk: 150-199 mg/dL High Risk: 200-499 mg/dL Very High Risk: >gd=426 mg/dL HDL Cholesterol 38 mg/dL [facility] Comment: Males: ?? Higher Risk: <40 mg/dL Females: ?? HIgher Risk: <50 mg/dL LDL Cholesterol 33 mg/dL [facility] Comment: Lowest Risk: <100 mg/dL Lower Risk: 100-129 mg/dL Borderline High Risk: 130-159 mg/dL High Risk: 160-189 mg/dL Very High Risk: >ae=377 mg/dL Cholesterol/HDL Ratio 2.3 ratio [facility] Lipid Interpretation See Note [facility] Comment: Lipid management should be guided by a patient? s ASCVD risk, goals and preferences. ACC/AHA Guidelines recommend high intensity statin if clinical ASCVD or LDL greater than or equal to 190 mg/dL. http://Playdom.com/YCV-XMP-Kablfztbd Adults aged 40-75 with LDL 70-189 mg/dL should have their 10 year ASCVD risk estimated with the ACC/AHA ASCVD risk grades 7 and 8 visiting teacher http://tools.acc.org/YTAWA-Obup-Ctajroglw/ Statin should be discussed if risk greater [...] In Lab Tiffanie Espino MD CHEMISTRY ORDERABLES [facility] [place] [address] * (ABNORMAL) Hemoglobin A1c (08/06/2019 5:35 AM EDT) Hemoglobin A1c 6.3(H) 4.3 - 5.6 % [facility] Comment: Reference Range: 4.3 [...] 36: Suppl. 1, S67-74 Estimated Average Glucose 135 mg/dL [facility] Comment: eAG equivalents for [...] into estimated average glucose values. ??Diabetes Care 2008:31(8):0713-6977. Blood specimen (specimen) 08/06/2019 5:35 AM EDT 08/06/2019 5:41 AM EDT Narrative Resulting Agency Comment Spec In Lab Tiffanie Espino MD CHEMISTRY ORDERABLES [facility] [place] [address] * (ABNORMAL) Troponin (08/06/2019 5:35 AM EDT) [facility] Troponin-T 0.31(H) 0.00 - 0.00 ng/mL [facility] Comment: The 99th percentile for Troponin T is less than 0.01 ng/mL, any detectable cTnT concentration using this assay should be considered elevated. According to the third universal definition of myocardial infarction the following criteria with a clinical presentation consistent with acute myocardial ischemia meets the diagnosis for a myocardial infarction ([place]). Detection of a rise and/or fall of cTnT, with at least one value greater than the 99th percentile (> or = 0.01) and with at least one of the following ?? Symptoms of ischemia ?? New or presumed new significant YY-rbueryj-L wave (ST-T) changes or new left bundle [...] additional sample may be indicated. Reference: Third [place] Definition of Myocardial Infarction. Journal of the [place] College of [employer]iology 2012;60:1581-98 Blood specimen (specimen) 08/06/2019 5:35 AM EDT 08/06/2019 5:41 AM EDT Narrative Resulting Agency Comment Spec In Lab Tiffanie Espino MD CHEMISTRY ORDERABLES [facility] [place] [address] * (ABNORMAL) Basic Metabolic Panel (non-fasting) (08/06/2019 5:35 AM EDT) [facility] Glucose 250(H) 65 - 199 mg/dL [facility] Comment:Diabetes: >=200 mg/d L plus symptoms Blood Urea Nitrogen 12 10 - 20 mg/dL [facility] Creatinine 1.26 0.80 - 1.50 mg/dL [facility] Sodium 138 135 - 145 mmol/L [facility] Potassium 4.5 3.5 - 5.0 mmol/L [facility] Comment: Please note: ??Patients with WBC >100,000 may have falsely elevated Potassium levels. ??For accurate Potassium quantification in these patients send serum separator tube (gold top) for subsequent determinations. ??Contact the Clinical Chemistry Laboratory if there are any questions. Chloride 103 98 - 107 mmol/L [facility] Carbon Dioxide 24 22 - 31 mmol/L [facility] Anion Gap 11 5 - 15 mmol/L [facility] Calcium 8.6 8.5 - 10.5 mg/dL [facility] Est Glomerular Filtration Rate 65 >=60 mL/min/1. 73 m?? [facility] Comment: The eGFR was calculated using the CKD-EPI equation. As with all creatinine based estimates of kidney function, eGFR values calculated with the CKD-EPI equation are not accurate in patients with acute kidney failure, extremes of body mass or the acutely ill. [email or web address]://Keaton [email or web address] eGFR 76 >=60 mL/min/1. 73 m?? [facility] Comment: The eGFR was calculated using the CKD-EPI equation. As with all creatinine based estimates of kidney function, eGFR values calculated with the CKD-EPI equation are not accurate in patients with acute kidney failure, extremes of body mass or the acutely ill. [email or web address]://[email or web address] [email or web address] Blood specimen (specimen) 08/06/2019 5:35 AM EDT 08/06/2019 5:41 AM EDT Narrative Resulting Agency Comment Spec In Lab Tiffanie Espino MD CHEMISTRY ORDERABLES [facility] [place] [address] * (ABNORMAL) POCT Glucose (08/06/2019 5:32 AM EDT) Glucose, POC 215(H) 65 - 199 mg/dL [facility] Comment: Supplemental ranges: <140 mg/dL before meals <180 mg/dL all other times of the day Blood specimen (specimen) 08/06/2019 5:32 AM EDT 08/06/2019 5:32 AM EDT Tariq Guerrero MD POINT OF CARE TEST O RDERABLES [facility] [place] [address] * CARDIAC CATHETERIZATION (08/06/2019 4:38 AM EDT) Anatomical Region Laterality Modality Other Narrative 08/09/2019 2:54 PM EDT ?[facility] ? Cardiac Catheterization/Intervention Report ? Patient Name: Samy Patricio ? Procedure Date: 08/06/2019 ? A #: [id number] ? Primary Physician: Wilber, Jung Kirkpatrick ? Case #: [id number] ? File Name: [id number] ? Catheterization Order Number: [id number] ? [facility] ? Final Report [place], [place] ? Patient Name: ? Samy Patricio ? ID#: ?[id number] ? : ?1965 ? Procedure Date: ? [...] procedure was Emergent. The indication for ?the specialist employee labor relations visit is ACS less than or equal [...] may require ?modification of this regimen. Consult [facility] [place]ventional [facility]iology for ?questions. ?This patient has [...] against any medical treatment. Consult ?http://tools.acc.org/DAPTriskapp/#!/content/calculator/ or [facility] ?Interventional Cardiology for questions. ? Conclusions: ?* [...] Procedure Note Jung Merino MD - 09/12/2019 [facility] Cardiac Catheterization/Intervention Report Patient Name: Samy Patricio Procedure Date: 08/06/2019 A #: [id number] Primary Physician: Jung Merino Case #: [id number] File Name: [id number] Catheterization Order Number: [id number] [facility] FinalReport [place], [place] [place] Patient Name: Samy Patricio ID#:[id number] :[id number] Procedure Date: August 06, 2019 Case [...] patient wasdesignated as ASA Class IV. The [facility] clinical frailty scale is 4: Vulnerable. Diagnostic Tests: Electrocardiography: EKG was assessed by ECG. EKG was Abnormal. EKG showed STDeviation >= 0.5 mm. Medications Prior to Procedure: Angiotensin Converting Enzyme Inhibitor, Aspirin, Long Acting Nitrate, Statin and Thrombolytic (any). Indications for Diagnostic Cath: The priority of the diagnostic procedure was Emergent. Theindication for the specialist employee labor relations visit is ACS less than or equal [...] The priority for the procedure was Emergent.[facility] indication for the procedure was STEMI (after [...] situation mayrequire modification of this regimen. Consult [facility]. This patient has a [...] or against any medical treatment.Consult http://tools.acc.org/DAPTriskapp/#!/content/calculator/ or [facility] for questions. Conclusions: * One [...] EKG 12 Lead (08/06/2019 2:05 AM EDT) [facility] Signature Ventricular rate 85 BPM MUSE SYSTEM Atrial Rate 85 BPM MUSE SYSTEM P-R Interval 172 ms MUSE SYSTEM QRS Duration 106 ms MUSE SYSTEM Q-T Interval 382 ms MUSE SYSTEM QTC Calculated (Bezet) 454 ms MUSE SYSTEM Calculated P Surprise 68 degrees MUSE SYSTEM Calculated R Surprise 71 degrees MUSE SYSTEM Calculated T Surprise 24 degrees MUSE SYSTEM INTERPRETATION Normal sinus rhythm Normal ECG When compared with ECG of 04-JUL-2018 22:00, No significant change was found I personally reviewed the tracing and edited the fellows interpretation Confirmed by fellow MD Dee, Jaylin Oviedo ([id number]) on 08/06/2019 1:17:24 PM Confirmed by MD Yaima, Timothy Collins ([id number]) on 08/07/2019 9:47:34 AM MUSE SYSTEM 08/06/2019 2:05 AM EDT 08/07/2019 9:47 AM EDT Tiffanie Espino MD ECG ORDERABLES MUSE SYSTEM documented in this encounter Visit Diagnoses Diagnosis ST elevation myocardial infarction involving right coronary artery- Primary Acute myocardial infarction of inferoposterior wall, initial episode of care ST elevation myocardial infarction (STEMI), unspecified artery STEMI (ST elevation myocardial infarction) Acute myocardial infarction, unspecified site, episode of care unspecified ST elevation myocardial infarction (STEMI), unspecified artery documented in this encounter Admitting Diagnoses Diagnosis STEMI (ST elevation myocardial infarction) Acute myocardial infarction, unspecified site, episode of care unspecified documented in this encounter Administered Medications Inactive Administered Medications - up to 3 most recent administrations Medication Order MAR Action Action Date Dose Rate Site alum-mag hydroxide-simeth (Maalox) (40 mg-40 mg-4 mg/mL) oral liquid ONCE PRN, Starting on Mon08/06/19 at 0409, Until Mon08/06/19 at 0414, Cath (Intra-Procedure), Routine Given 08/06/2019 4:09 AM EDT 30 mLs aspirin EC tablet 81 mg 81 mg, [...] PM EDT 80 mg clopidogreL (Plavix) tablet ONCE PRN, Starting on Mon08/06/19 at 0222, Until Mon08/06/19 at 0403, Cath (Intra-Procedure), Routine Given 08/06/2019 2:22 AM EDT 300 mg dextrose 10% infusion 250 mL, at [...] active insulin. fentaNYL 50 mcg/mL multi-dose injection ONCE PRN, Starting on Mon08/06/19 at 0234, Until Mon08/06/19 at 0403, Intra-Operative (Intra-Procedure), Routine Given 08/06/2019 3:31 AM EDT 25 mcg Left Arm Given 08/06/2019 2:37 AM EDT 25 mcg Le ft Arm Given 08/06/2019 2:34 AM EDT 25 mcg Le ft Arm folic acid (Folvite) tablet 1,000 mcg 1,000 mcg (1 mg), Oral, DAILY, First dose on Mon08/07/19 at 1030, Until Discontinued, Routine Given 08/07/2019 11:29 AM EDT 1,000 mcg glucagon (human recombinant) injection SolR 1 mg [...] grams., Routine heparin (porcine) 1,000 unit/mL injection ONCE PRN, Starting on Mon08/06/19 at 0250, Until Mon08/06/19 at 0403, Cath (Intra-Procedure), Routine Given 08/06/2019 3:03 AM EDT 2,000 Units Left Arm Given 08/06/2019 2:50 AM EDT 4,000 Units L eft Arm heparin (Porcine) subcutaneous injection 5,000 Units 5,000 Units, Subcutaneous, EVERY 8 HOURS SCHEDULED, First dose on Mon08/06/19 at 0600, Until Discontinued, Routine Given 08/07/2019 3:11 PM EDT 5,000 Unit s Given 08/07/2019 5:07 AM EDT 5,000 Units [...] 1 Units iohexoL (OMNIPAQUE) 350 mg/mL solution ONCE PRN, Starting on Mon08/06/19 at 0348, Until Mon08/06/19 at 0403, Cath (Intra-Procedure), Routine Given 08/06/2019 3:48 AM EDT 110 mLs ipratropium-albuteroL (DUONEB) 0.5 mg-3 mg(2.5 mg base)/3 mL nebulizer solution 3 mL 3 mL, Nebulization, 4 TIMES DAILY PRN, Starting on Mon08/07/19 at 1351, Until Mon08/07/19 at 2017, Wheezing, Routine lidocaine (XYLOCAINE) 10 mg/mL (1 %) injection ONCE PRN, Starting on Mon08/06/19 at 0236, Until Mon08/06/19 at 0403, Cath (Intra-Procedure), Routine Given 08/06/2019 2:36 AM EDT 3 mLs Right Arm LORazepam (ATIVAN) injection 0.5-1.5 mg 0.5-1.5 mg, [...] IV access., Routine metoprolol tartrate (Lopressor) tablet 25 mg 25 mg, Oral, EVERY 6 HOURS SCHEDULED, First dose (after last modification) on Mon08/07/19 at 1200, Until Discontinued, Hold for SBP < 100 mm Hg or HR < 55 bpm, Routine Given 08/07/2019 5:13 PM EDT 25 mg Given 08/07/2019 11:28 AM EDT 25 mg midazolam (PF) (VERSED) multi-dose injection ONCE PRN, Starting on Mon08/06/19 at 0234, Until Mon08/06/19 at 0403, Cath (Intra-Procedure), Routine Given 08/06/2019 2:47 AM EDT 0.5 mg Left Arm Given 08/06/2019 2:37 AM EDT 1 mg Le ft Arm Given 08/06/2019 2:34 AM EDT 1 mg Le ft Arm nicotine (NICODERM CQ) 21 mg/24 hr patch [...] slowly dissolve., Routine nitroGLYcerin 100 mcg/mL intracoronary dilution ONCE PRN, Starting on Mon08/06/19 at 0245, Until Mon08/06/19 at 0403, Cath (Intra-Procedure), Routine Given 08/06/2019 2:45 AM EDT 150 mcg pantoprazole EC (Protonix) tablet [...] on Mon08/08/19 at 0900, Until Discontinued, Routine sodium chloride [...] 08/06/2019 08/07/2019 aspirin EC tablet 81 mg 81 mg, Oral, DAILY, First dose on Mon08/06/19 at 0900, Until Discontinued, Routine 0829 (Given - Provider: Daniel Sands RN) 0811 (Given - Provider: Maureen Carrillo RN) atorvastatin (Lipitor) tablet 80 mg 80 mg, Oral, EVERY EVENING, First dose on Mon08/06/19 at 1700, Until Discontinued, Routine 1754 (Given - Provider: Rama Park RN) 1714 (Given - Provider: Maureen Carrillo, GUILLAUME) clopidogreL (Plavix) tablet 75 mg (COMPLETED) 75 mg, Oral, ONCE, 1 dose, On Mon08/06/19 at 0800, Routine 0828 (Given - Provider: Daniel Sands, GUILLAUME) folic acid (Folvite) tablet 1,000 mcg 1,000 mcg (1 mg), Oral, DAILY, First dose on Mon08/07/19 at 1030, Until Discontinued, Routine 1129 (Given - Provid er: Maureen Carrillo, GUILLAUME) furosemide (LASIX) injection 20 mg (COMPLETED) 20 mg, Intravenous, ONCE, 1 dose, On Mon08/06/19 at 1045 1048 (Given - Provider: Daniel Sands, GUILLAUME) heparin (Porcine) subcutaneous injection 5,000 Units 5,000 Units, Subcutaneous, EVERY 8 HOURS SCHEDULED, First dose on Mon08/06/19 at 0600, Until Discontinued, Routine 0600 (Not Given - Provider: Natalia Renee RN - Reason: Patient/family refused)1349 (Given - Provider: Daniel Sands, GUILLAUME)2103 (Given - Provider: Natalia Renee RN) 0507 [...] Sands, RN)1200 (Not Given - Provider: Daniel Sands RN - Reason: Order parameters not met)1648 (Not Given - Provider: Rama Park RN - Reason: Order parameters not met)203 (Given - Provider: Natalia Renee RN)2328 (Given - Provider: Natalia Renee RN) 0400 (Not Given - Provider: Natalia Renee RN - Reason: Order parameters not met)0813 (Given - Provider: Maureen Carrillo RN)1202 (Given - Provider: Maureen Carrillo, GUILLAUME)1714 (Given - Provider: Maureen Carrillo, GUILLAUME) LORazepam (ATIVAN) [...] 121 (See Alternativ e - Provider: Maureen Carrillo RN) LORazepam (ATIVAN) injection 2 mg(Linked Group 2) 2 mg, Intramuscular, EVERY 8 HOURS, 6 doses, First dose on Mon08/07/19 at 1215, Last dose on Mon08/09/19 at 0415, May give IV if unable to take PO. May give IM if no IV access., Routine 121 (See Alternativ e - Provider: Maureen Carrillo, GUILLAUME) LORazepam (Ativan) tablet 2 mg(Linked Group 2) 2 mg, Oral, EVERY 8 HOURS, 6 doses, First dose on Mon08/07/19 at 1215, Last dose on Mon08/09/19 at 0415, May give IV if unable to take PO. May give IM if no IV access., Routine 121 (Not Given - Provider: Maureen Carrillo RN - Reason: Contraindicated) magnesium sulfate 2 g in sterile water 50 mL (COMPLETED) 2 g, Intravenous, ONCE, 1 dose, On Mon08/06/19 at 1800, Administer over 120 Minutes 1812 (New Bag - Provider: Rama Park, GUILLAUME)2012 (Stopped - Provider: Natalia Renee, GUILLAUME) metoprolol tartrate (Lopressor) tablet 12.5 mg (CANCELED) 12.5 mg, Oral, EVERY 6 HOURS SCHEDULED, First dose on Mon08/06/19 at 1315, Until Discontinued, Hold for SBP < 100 mm Hg or HR < 55 bpm, Routine 1348 (Given - Provider: Daniel Sands, GUILLAUME)1754 (Given - Provider: Rama Park, GUILLAUME)2328 (Given - Provider: Natalia Renee, GUILLAUME) 0507 (Given - Provider: Natalia Renee, GUILLAUME) metoprolol tartrate (Lopressor) tablet 25 mg 25 mg, Oral, EVERY 6 HOURS SCHEDULED, First dose (after last modification) on Mon08/07/19 at 1200, Until Discontinued, Hold for SBP < 100 mm Hg or HR < 55 bpm, Routine 1128 (Given - Provid er: Maureen Carrillo RN)1713 (Given - Provider: Maureen Carrillo, GUILLAUME) nicotine (NICODERM CQ) 21 mg/24 hr patch 21 mg (CANCELED) 21 mg (1 patch), Transdermal, DAILY, First dose on Mon08/06/19 at 0900, Until Discontinued, Routine 0827 (Patch Applied - Provider: Daniel Sands, GUILLAUME) nicotine (NICODERM CQ) 21 mg/24 hr patch [...] Discontinued, Remove nicotine 21 mg/24 hr patch 0900 (Patch Removed - Provider: Maureen Carrillo, GUILLAUME) pantoprazole EC (Protonix) tablet 40 mg (CANCELED) 40 mg, Oral, DAILY, First dose on Mon08/06/19 at 0900, Until Discontinued, DO NOT CRUSH OR OPEN, Routine 0828 (Given - Provider: Daniel Sands RN) 0811 (Given - Provider: Maureen Carrillo RN) pantoprazole EC [...] (dose and location) verified - Provider: Maureen Carrillo, GUILLAUME) prasugreL (Effient) tablet 10 mg 10 mg, Oral, DAILY, First dose on Mon08/08/19 at 0900, Until Discontinued, Routine prasugreL (Effient) tablet 60 mg (COMPLETED) 60 mg, Oral, ONCE, 1 dose, On Mon08/07/19 at 0900, Routine 0813 (Given - Provid er: Maureen Carrillo RN) sodium chloride 0.9 % (flush) flush 5 mL 5 mL, Intravenous, 2 TIMES DAILY, First dose on Mon08/06/19 at 0900, Until Discontinued, Routine 0900 (Given - Provider: Daniel Sands RN)2100 (Given - Provider: Natalia Renee RN) 0813 (Given - Provider: Maureen Carrillo RN) sucralfate (Carafate) (100 mg/mL) oral liquid 1 g 1 g, Oral, EVERY 6 HOURS SCHEDULED, First dose on Mon08/06/19 at 0600, Until Discontinued, Routine 0600 (Given - Provider: Daniel Sands RN)1236 (Given - Provider: Daniel Sands RN)1753 (Given - Provider: Rama Park, GUILLAUME)2328 (Given - Provider: Natalia Renee RN) 0507 (Given - Provider: Natalia Renee RN)1130 (Given - Provider: Maureen Carrillo, GUILLAUME)1713 (Given - Provider: Maureen Carrillo, GUILLAUME) thiamine (Vitamin B1) tablet 100 mg 100 mg, Oral, DAILY, First dose on Mon08/07/19 at 1030, Until Discontinued, Routine 1129 (Given - Provid er: Maureen Carrillo RN) Continuous Medication Order 08/05/2019 08/06/2019 08/07/2019 sodium [...] Routine 0234 (Given - Provider: Mckenzie Parks RN)236 (Given - Provider: Mckenzie Parks RN)330 (Given - Provider: Mckenzie Parks RN) glucagon (human recombinant) injection SolR 1 [...] Routine 0234 (Given - Provider: Mckenzie Parks RN)236 (Given - Provider: Mckenzie Parks RN)024 (Given - Provider: Mckenzie Parks, GUILLAUME) nicotine polacrilex (COMMIT) lozenge 4 mg 4 [...] Mon08/06/19 at 0205, DAVE RAMÍREZ: cabinet override 020 (New Bag - Provider: Dave Ramírez, RN) heparin (porcine) 25,000 unit/500 mL infusion (COMPLETED) 1 dose, Starting on Mon08/06/19 at 0205, Until Mon08/06/19 at 0209, Brenda Woodall: cabinet override 020 (New Bag - Provider: Dave Ramírez, RN) Linked Groups Order Group 1: POCT [...] Routine documented in this encounter Care Teams Material Hauler Relationship Specialty Start Date End Date Sae Marr MD PCP - General General Internal Medicine 08/06/19 9/3 documented as of this encounter
--- OUTSIDE RECORDS SUMMARY | 2023-10-24 16:01 | XMS_ITS | Encounter Summary ---
[place] [address] Care Team Providers Care Field Mechanical Meter Tester Name Role Phone Altaf Hoover MD Primary Care Provider [phone] Reason for Visit * Reason Comments Dizziness Shortness of Breath Encounter Details Date Type Department Care Team (Late st Contact Info) Description 04/03/2017 10:58 PM EST - 04/04/2017 4:14 AM EST [place] [address] Tiffanie Espino MD [facility] [place] [address] SOB (shortness of breath); Dizziness and giddiness; Dyspnea, unspecified type; Nausea; Nonintractable headache, unspecified chronicity pattern, unspecified headache type; Cough; Generalized hyperhidrosis; Type 2 diabetes mellitus without complication, without long-term current use of insulin; Cigarette smoker; Encounter for long-term (current) drug use; correction (current) use of oral hypoglycemic drugs; Encounter for long-term (current) use of non-steroidal anti-inflammatories Discharge Disposition: Home Social History Tobacco Use [...] 36.5 ??C (97.7 ??F) 04/04/2017 4:00 AM ES T Respiratory Rate 18 04/04/2017 4:00 AM EST Oxygen Saturation 94% 04/04/2017 4:00 AM EST Inhaled Oxygen Concentration - - Weight 127 kg (280 lb) 04/03/2017 9:06 PM EST Height - - Body Mass Index 37.97 02/08/2017 8:41 AM EST documented in this encounter Discharge Instructions * Discharge Instructions* Newton Mari MD - 04/04/2017 4:07 AM EST [...] the life threatening conditions, however our tests are not perfect and there is still a small chance that these problems could still be at hand. We are awaiting the result of a virus test which we felt would be reassuring in light of your symptoms. Please follow up with your primary care doctor for a stress test tomorrow or the next day. This will further evaluate your cardiac health and hopefully provide further reassurance with more detailed information. Thank you for entrusting us with your care. documented in this encounter Medications at Time of Discharge Medication Sig Dispensed Refills Start Date End Date glipiZIDE (GLUCOTROL) 5 mg Tablet Take 10 mg by mouth 2 times daily (before meals). 4 11/15/2016 02/24/2022 metFORMIN (GLUCOPHAGE) 1,000 mg Tablet Take 1,000 mg by mouth nightly. 4 11/15/2016 11/14/2018 documented as of this encounter ED Notes * Lissette Lynn NRP - 04/04/2017 2:59 AM EST Pt resting quietly with eyes closed and normally respiratory effort. * Lissette Lynn NRP - 04/04/2017 1:44 AM EST Pt going to CT and will receive neb when he returns. * Newton Mari MD - 04/04/2017 12:46 AM EST ED Resident Transfer Note Chief Complaint: Shortness of breath and dizziness. I saw this patient at 0300. HPI: Samy Patricio Jr. is a 51 y.o. male who presents to the Emergency Department with shortness of breath. This gag writer assumed care from Dr. Johnson at [...] Not Detected Not Detected Resp PCR Source PUBLICITY CONSULTANT Swab ED Course Newton Mari's Documentation Value Comment Time D-Dimer, Quant: (!) 1112 CTPE ordered 04/04 118 XR Chest PA & Lateral (Generic) Impression ?? No acute cardiopulmonary process. 04/04 118 EKG 12 Lead Normal sinus rhythm Normal [...] lack of diagnosis and disposition at 0400. Cook Manager explained that we hadbeen awaiting return of studies and as we had not found a satisfactory reason for symptoms would suggest a stress test in AM. Patient expressed that he wished to go, understanding that there was sillthe opportunity for us to further investigate possibly [...] agreed this was a reasonable alternative to awaitingviral PCR results in the ED and that an outpatient stress test was reasonable so long as patient understood there was possibly some increased risk of adverse outcome with this choice. Phone number provided by Patient ( Francie) to relay result of nasal swab viral PCR called at [phone] with test results of negative fluA/B and RSV PCR. Assessment: I saw this transfer patient in the ED with diagnosis of shortness of breath. Patient was stable. I will assist the consulting service as [...] above unless noted otherwise below. ED Course * Philip Johnson MD - 04/03/2017 11:20 PM [...] Department with lightheadedness and shortness of breath. Thepatient reports that about 2.5 weeks prior, he [...] He reports associated nausea over the past 5 days, with no emesis. He also reports four episodes of generalized headache over the past two weeks, which is also new. He denies palpitations, chest [...] [he] feels like I really need to stop to catch a breath. He additionally endorses night [...] No Pronator Drift. No dysmetria, dysdiadochokinesia; negative [id number]. Normal sensation. 5/5 strength in upper, lower extremities. 1+ reflexes at patellar, biceps tendons. (-) Babinski, bilaterally. [...] Esophagus who presented with a 2.5-week history of lightheadedness and dyspnea at rest, with associated nausea, [...] prior PFTs performed, no systemic symptoms, and unclear interval increase in sputum production/cough. The patient does [...] Philip Johnson MD PGY1, Internal Medicine Pager #[phone] Philip Johnson MD Resident 04/04/17 0058 Associated attestation - Tiffanie Espino MD - [...] 10:00 AM EST Office [place] [address] Tania Gates OD [facility] [place] [address] documented as of this encounter Procedures Procedure Name Priority Date/Time Associated Diagnosis Comments RAPID INFLUENZA A/B AND RSV PCR [place] [place] STAT 04/04/2017 2:[address] CHEST PULMONARY EMBOLISM W CONTRAST STAT 04/04/2017 1:58 AM EST XR CHEST PA AND LATERAL STAT 04/04/2017 12:18 AM EST EKG 12-LEAD STAT 04/04/2017 12:04 AM EST HEMOGRAM STAT 04/04/2017 12:02 AM EST DIFFERENTIAL, AUTOMATED STAT 04/04/2017 12:02 AM EST D-DIMER, QUANTITATIVE STAT 04/04/2017 12:02 AM EST GOLD TUBE HOLD STAT 04/04/2017 12:02 AM EST CBC (WITH DIFF) STAT 04/04/2017 12:02 AM EST TROPONIN STAT 04/04/2017 12:02 AM EST PRO-BRAIN NATRIURETIC PEPTIDE STAT 04/04/2017 12:02 AM EST BASIC METABOLIC PANEL STAT 04/04/2017 12:02 AM EST POCT GLUCOSE Routine 04/04/2017 12:00 AM EST documented in this encounter Results * Rapid Influenza A/B and RSV PCR (LEB/CGP) (04/04/2017 2:45 AM EST) Influenza A PCR Not Detected Not Detected [facility] Influenza B PCR Not Detected Not Detected [facility] RSV PCR Not Detected Not Detected [facility] Resp PCR Source [facility] Swab [facility] Nasopharyngeal swab (specimen) 04/04/2017 2:45 AM EST 04/04/2017 3:14 AM EST Narrative Resulting Agency Comment Spec In Lab Tiffanie Espino MD MICROBIOLOGY - GENER AL ORDERABLES [facility] [place] [address] * CTA Chest for Pulmonary Embolus w Contrast (04/04/2017 1:58 AM EST) Anatomical Region Laterality Modality Chest Computed Tomogra phy Impressions 04/04/2017 2:37 AM EST 1. ??No pulmonary embolism. 2. ??No infectious or inflammatory pulmonary process. 3. ??Diffuse hepatic steatosis. I have personally reviewed the image(s) and the residents interpretation and agree with the findings, Megan London at 04/04/2017 2:37 AM Narrative 04/04/2017 2:37 AM EST EXAMINATION: CTA chest for pulmonary arteries CLINICAL HISTORY: SOB, lightheaded, tachycardia elevated d-dimer TECHNIQUE: 3 mm thick axial contiguous sections were obtained through the chest via helical acquisition after the intravenous administration of 68 cc of Omnipaque-350. Thin-section reconstructions as well as coronal and sagittal MIP reformatted images were generated to aid in evaluation. COMPARISON: Same-day chest radiographs and report only from prior CT chest dated January 12, 2001. FINDINGS: Pulmonary arteries: The pulmonary arteries normal in caliber. No pulmonary arterial filling defects. Other cardiovascular structures: Normal heart size. Prominent atherosclerotic calcification of the coronary arteries. Pulmonary parenchyma and airways: The central airways are patent. There is mild interlobular septal thickening in the upper lobes. There is minimal dependent atelectasis. Pleura: There is no pleural effusion or pneumothorax. Lymph nodes: No mediastinal or hilar adenopathy. Other mediastinal structures: Changes of Luisana fundoplication are present. Upper abdomen: Diffuse hepatic hypoattenuation is consistent with hepatic steatosis. Skeletal structures: No suspicious osseous lesions. Procedure Note Megan London MD - 04/04/2017 EXAMINATION: CTA chest for pulmonary arteries CLINICAL HISTORY: SOB, lightheaded, tachycardia elevated d-dimer TECHNIQUE: 3 mm thick axial contiguous sections were obtained through thechest via helical acquisition after the intravenous administration of 68 cc of Omnipaque-350. Thin-section reconstructions as well as coronal andsagittal MIP reformatted images were generated to aid in evaluation. COMPARISON: Same-day chest radiographs and report only from prior CT chestdated January 12, 2001. FINDINGS: Pulmonary arteries: The pulmonary arteries normal in caliber. Nopulmonary arterial filling defects. Other cardiovascular structures: Normal heart size. Prominentatherosclerotic calcification of the coronary arteries. Pulmonary parenchyma and airways: The central airways are patent. There ismild interlobular septal thickening in the upper lobes. There is minimaldependent atelectasis. Pleura: There is no pleural effusion or pneumothorax. Lymph nodes: No mediastinal or hilar adenopathy. Other mediastinal structures: Changes of Luisana fundoplication arepresent. Upper abdomen: Diffuse hepatic hypoattenuation is consistent withhepatic steatosis. Skeletal structures: No suspicious osseous lesions. IMPRESSION 1. No pulmonary embolism. 2. No infectious or inflammatory pulmonary process. 3. Diffuse hepatic steatosis. I have personally reviewed the image(s) and the residents interpretationand agree with the findings, Megan London at 04/04/2017 2:37 AM Tiffanie Espino MD IMG CT ORDERABLES * XR Chest PA & Lateral (Generic) (04/04/2017 12:18 AM EST) Anatomical Region Laterality Modality Chest N/A Digital Radiogra phy Impressions 04/04/2017 12:19 AM EST No acute cardiopulmonary process. Narrative 04/04/2017 12:19 AM EST EXAMINATION: XR CHEST PA AND LATERAL (GENERIC) CLINICAL HISTORY: concern for new CHF - lightheaded, orthopena, SOB TECHNIQUE: 2 views COMPARISON: July 13, 2016 FINDINGS: The cardiomediastinal silhouette is stable. Normal pulmonary vasculature. Lungs are clear and without focal consolidation. No pleural effusion or pneumothorax. Bones are unchanged. Procedure Note Megan London MD - 04/04/2017 EXAMINATION: XR CHEST PA AND LATERAL (GENERIC) CLINICAL HISTORY: concern for new CHF - lightheaded, orthopena, SOB TECHNIQUE: 2 views COMPARISON: July 13, 2016 FINDINGS: The cardiomediastinal silhouette is stable. Normal pulmonary vasculature.Lungs are clear and without focal consolidation. No pleural effusion orpneumothorax. Bones are unchanged. IMPRESSION No acute cardiopulmonary process. Tiffanie Espino MD [facility] DX ORDERABLES * EKG 12 Lead (04/04/2017 12:04 AM EST) Ventricular rate 85 BPM MUSE SYSTEM Atrial Rate 85 BPM MUSE SYSTEM P-R Interval 176 ms MUSE SYSTEM QRS Duration 80 ms MUSE SYSTEM Q-T Interval 370 ms MUSE SYSTEM QTC Calculated (Bezet) 440 ms MUSE SYSTEM Calculated P Premier 46 degrees MUSE SYSTEM Calculated R Premier 56 degrees MUSE SYSTEM Calculated T Premier 41 degrees MUSE SYSTEM INTERPRETATION Normal sinus rhythm Normal ECG When compared with ECG of 13-JUL-2006 17:13, No significant change was found Confirmed by MD Yaima, Timothy Collins ([id number]) on 04/04/2017 5:28:12 PM MUSE SYSTEM 04/04/2017 12:0 4 AM EST 04/04/2017 5:28 PM EST Tiffanie Espino MD ECG ORDERABLES Performing Organization Address City/[facility]/ZIP Co de Phone Number MUSE SYSTEM * Gold Tube HOLD (04/04/2017 12:02 AM EST) Pathologist [facility] Gold Hold Sample in lab. [facility] Blood specimen (specimen) Venous Draw / Unknown 04/04/2017 12:02 AM EST 04/04/2017 12:10 AM EST Tiffanie Espino MD CHEMISTRY ORDERABLES [facility] [place] [address] * Differential, Automated (04/04/2017 12:02 AM EST) Neutrophil % 56.6 % [facility] Neutrophil Absolute 4.20 1.70 - 6.10 x10(3)/[facility] Lymph % 32.5 % [facility] Lymphocytes Abs 2.4 0.9 - 3.2 x10(3)/[facility] Monocyte % 7.4 % [facility] Monocyte Abs 0.6 0.3 - 0.9 x10(3)/[facility] Eos % 2.3 % [facility] Eosinophils Abs 0.2 0.0 - 0.4 x10(3)/[facility] Basophil % 0.7 % [facility] Baso Absolute 0.0 0.0 - 0.1 x10(3)/[facility] Immature Gran % 0.50 % [facility] Comment: Immature granulocytes(IG's)percentage and absolute count will include metamyelocytes, myelocytes, and promyelocytes. Blood smears from CBCs yielding IG's will be scanned manually for concordance. If this scan disagrees with the automated IG or if promyelocytes are noted, a manual differential will be performed. Immature Gran Absolute 0.04 0.00 - 0.04 x10(3)/[facility] Blood specimen (specimen) 04/04/2017 12:02 AM EST 04/04/2017 12:09 AM EST Narrative Resulting Agency Comment Spec In Lab Tiffanie Espino MD HEMATOLOGY ORDERABLE S Performing Organization Address City/State/[facility] Co de Phone Number [facility] [place] [address] * (ABNORMAL) Hemogram (04/04/2017 12:02 AM EST) White Blood Cell 7.4 4.0 - 9.5 x10(3)/ L [facility] Red Blood Cell 4.67 4.58 - 5.54 x10(6)/[facility] Hemoglobin 15.8 13.7 - 16.5 gm/dL [facility] Hematocrit 42.2 40.5 - 48.5 % [facility] Mean Cell Volume 90.4 82.9 - 93.1 fL [facility] Mean Cell Hemoglobin 33.8(H) 27.5 - 32.1 pg [facility] Mean Cell Hemoglobin Concentration 37.4(H) 32.0 - 35.7 gm/dL [facility] Platelet 212 145 - 357 x10(3)/ L [facility] RDW Standard Deviation 41.2 36.0 - 45.0 [facility] RDW coefficient of variation 12.5 11.4 - 13.8 % [facility] Mean Platelet Volume 9.9 7.6 - 12.9 [facility] NRBC% auto 0.0 % [facility] NRBC Absolute 0.000 0.000 - 0.000 x10(3)/mc L [facility] Blood specimen (specimen) 04/04/2017 12:02 AM EST 04/04/2017 12:09 AM EST Narrative Resulting Agency Comment Spec In Lab Tiffanie Espino MD HEMATOLOGY ORDERABLE S Performing Organization Address [facility] Co de Phone Number [facility] [address] * (ABNORMAL) D-Dimer, Quantitative (04/04/2017 12:02 AM EST) D-Dimer 1,112(H) 0 - 500 FEU ng/ml [facility] Comment: The D-Dimer assay is used to aid in the diagnosis of deep vein thrombosis and pulmonary embolism. A normal D-Dimer result (less than 500 FEU ng/ml) has a negative predictive value of approximately 95% for the exclusion of acute PE and DVT when there is low to moderate pretest probability. To use age adjusted cutoff: Age x 10ng/mL. Blood specimen (specimen) 04/04/2017 12:02 AM EST 04/04/2017 12:10 AM EST Narrative Resulting Agency Comment Spec In Lab Tiffanie Espino MD HEMATOLOGY ORDERABLE S Performing Organization Address City/[facility]/ZIP Co de Phone Number [facility] [place] [address] * pro-Brain Natriuretic Peptide (04/04/2017 12:02 AM EST) NT-proBNP 26 <=125 pg/mL [facility] Blood specimen (specimen) 04/04/2017 12:02 AM EST 04/04/2017 12:09 AM EST Narrative Resulting Agency Comment Spec In Lab Tiffanie Espino MD CHEMISTRY ORDERABLES Performing Organization Address [facility] Co de Phone Number [facility] [place] [address] * Troponin T (04/04/2017 12:02 AM EST) Troponin-T <0.01 0.00 - 0.00 ng/mL [facility] Comment: Specimen ultracentrifuged due to gross lipemia The 99th percentile for Troponin T is less than 0.01 ng/mL, any detectable cTnT concentration using this assay should be considered elevated. According to the third universal definition of myocardial infarction the following criteria with a clinical presentation consistent with acute myocardial ischemia meets the diagnosis for a myocardial infarction (CT). Detection of a rise and/or fall of cTnT, with at least one value greater than the 99th percentile (> or = 0.01) and with at least one of the following ?? Symptoms of ischemia ?? New or presumed new significant ZN-[id number]-S wave (ST-T) changes or new left bundle [...] additional sample may be indicated. Reference: Third [place] Definition of Myocardial Infarction. Journal of the [place] [employer] 2012;60:1581-98 Blood specimen (specimen) 04/04/2017 12:02 AM EST 04/04/2017 12:09 AM EST Narrative Resulting Agency Comment Spec In Lab Tiffanie Espino MD CHEMISTRY ORDERABLES Performing Organization Address [facility] Co de Phone Number [facility] [place] [address] * (ABNORMAL) Basic Metabolic Panel (non-fasting) (04/04/2017 12:02 AM EST) Glucose 265(H) 65 - 199 mg/dL [facility] Comment:Diabetes: >=200 mg/d L plus symptoms Blood Urea Nitrogen 15 10 - 20 mg/dL [facility] Creatinine 1.45 0.80 - 1.50 mg/dL [facility] Comment:Specimen ultracentri fuged due to gross lipemia Sodium 139 135 - 145 mmol/L [facility] Comment:Specimen ultracentri fuged due to gross lipemia Potassium 5.2(H) 3.5 - 5.0 mmol/L [facility] Comment: Specimen ultracentrifuged due to gross lipemia Please note: ??Patients with WBC >100,000 may have falsely elevated Potassium levels. ??For accurate Potassium quantification in these patients send serum separator tube (gold top) for subsequent determinations. ??Contact the Clinical Chemistry Laboratory if there are any questions. Chloride 98 98 - 107 mmol/L [facility] Comment:Specimen ultracentri fuged due to gross lipemia Carbon Dioxide 28 22 - 31 mmol/L [facility] Anion Gap 13 5 - 15 mmol/L [facility] Calcium 8.5 8.5 - 10.5 mg/dL [facility] Est Glomerular Filtration Rate 52(L) >=60 [facility] Comment: The reported eGFR should be multiplied by 1.2 for patients. The MDRD is not an appropriate measure of renal function for patients with body mass extremes or in patients with acute kidney failure. http://[employer]DHnkdep http://[employer]DHMCnkf Blood specimen (specimen) 04/04/2017 12:02 AM EST 04/04/2017 12:09 AM EST Narrative Resulting Agency Comment Spec In Lab Tiffanie Espino MD CHEMISTRY ORDERABLES [facility] [place] [address] * (ABNORMAL) POCT Glucose (04/04/2017 12:00 AM EST) Glucose, POC 258(H) 65 - 199 mg/dL [facility] Comment: Supplemental ranges: <140 mg/dL before meals <180 mg/dL all other times of the day Blood specimen (specimen) 04/04/2017 04/04/2017 12:00 AM EST Tiffanie Espino MD POINT OF CARE TEST O RDERABLES [facility] [place] [address] documented in this encounter Visit Diagnoses Diagnosis SOB (shortness of breath) Shortness of breath Dizziness and giddiness Dyspnea, unspecified type Nausea Nausea alone Nonintractable headache, unspecified chronicity pattern, unspecified headache type Cough Generalized hyperhidrosis Type 2 diabetes mellitus without complication, without long-term current use of insulin Cigarette smoker Tobacco use disorder Encounter for long-term (current) drug use Encounter for long-term (current) use of other medications buttermaker continuous churn (current) use of oral hypoglycemic drugs Encounter for long-term (current) use of non-steroidal anti-inflammatories documented in this encounter Administered Medications Inactive Administered Medications - up to 3 most recent administrations Medication Order MAR Action Action Date Dose Rate Site iohexol (OMNIPAQUE) 350 mg/mL solution 0-200 mL 0-200 mL, Intravenous, ONCE PRN, 1 dose, Starting on Mon04/04/17 at 0157, Until Mon04/04/17 at 0157, Per Protocol, Warning Vesicant/Irritant Medication , Radiology Contrast, Routine Given 04/04/2017 1:57 AM EST 68 mLs ipratropium-albuterol (DUONEB) 0.5 mg-3 mg(2.5 mg base)/3 mL nebulizer solution 3 mL 3 mL, Nebulization, EVERY 20 MIN PRN, 3 doses, Starting on Mon04/04/17 at 0134, Until Mon04/04/17 at 0619, Wheezing, Wheezing or SOB, STAT Given 04/04/2017 2:34 AM EST 3 mLs Given 04/04/2017 2:04 AM EST 3 mLs documented in this encounter Active and Recently Administered Medications Times are shown in EST. PRN Medication Order 04/02/2017 04/03/2017 04/04/2017 iohexol (OMNIPAQUE) 350 mg/mL solution 0-200 mL (COMPLETED) 0-200 mL, Intravenous, ONCE PRN, 1 dose, Starting on Mon04/04/17 at 0157, Until Mon04/04/17 at 0157, Per Protocol, Warning Vesicant/Irritant Medication , Radiology Contrast, Routine 0157 (Given - Provid er: Aiden Goncalves) ipratropium-albuterol (DUONEB) 0.5 mg-3 mg(2.5 mg base)/3 mL nebulizer solution 3 mL 3 mL, Nebulization, EVERY 20 MIN PRN, 3 doses, Starting on Mon04/04/17 at 0134, Until Mon04/04/17 at 0619, Wheezing, Wheezing or SOB, STAT 0204 (Given - Provid er: Lissette Lynn NRP)0234 (Given - Provider: Lissette Lynn NRP) documented in this encounter Care Teams Field Mechanical Meter Tester Relationship Specialty Start Date End Date Altaf Hoover MD [address] [facility] [address] [place] [address] PCP - General 04/19/11 09/18/17 documented as of this encounter
--- OUTSIDE RECORDS SUMMARY | 2023-10-24 16:01 | XMS_ITS | Encounter Summary ---
[place] [address] Care Team Providers Care Senior Qa Analyst Name Role Phone Sae Marr MD Primary Care Provider [phone] Encounter Details Date Type Department Care Team (Late st Contact Info) Description 08/06/2019 External Results [place] [address] Social History Tobacco Use Types Packs/Day Years [...] 10:00 AM EST Office [place] [address] Tania Gates OD [facility] [place] [address] documented as of this encounter Procedures Procedure Name Priority Date/Time Associated Diagnosis Comments ECG SCAN Routine 08/06/2019 documented in this encounter Results * Scan Doc: ECG (08/06/2019) Historical Provider MD KUMAR MGR SCAN EX T ORDR/RSLT documented in this encounter Visit Diagnoses Not on filedocumented in this encounter Care Teams Senior Qa Analyst Relationship Specialty Start Date End Date Sae Marr MD PCP - General General Internal Medicine 08/06/19 9/3 documented as of this encounter
--- OUTSIDE RECORDS SUMMARY | 2023-10-24 16:01 | XMS_ITS | Encounter Summary ---
[place] [address] Care Team Providers Care Felt Washing Machine Tender Name Role Phone Altaf Hoover MD Primary Care Provider [phone] Encounter Details Date Type Department Care Team (Latest Contact Info) Description 2015 - 2015 11:59 PM EDT Hospital Encounter [place] [id number] Pop Xiao MD [facility] [place] [address] Pain Discharge Disposition: Home Social History Tobacco Use [...] 07/14/2006 02/08/2017 documented as of this encounter Plan of Treatment Upcoming Encounters Date Type Department Care Team (Late st Contact Info) Description 03/20/2024 10:00 AM EST Office [place] [address] Tania Gates, [facility] [address] documented as of this encounter Procedures Procedure Name Priority Date/Time Associated Diagnosis Comments FILM LIBRARY STORAGE ONLY DX SPINE Routine 2015 12:00 AM EDT Pain documented in this encounter Results * Film Library- Storage Only DX Spine (2015 12:00 AM EDT) Narrative [facility] - 02/06/2017 1:34 PM EST This exam is for storage only and is auto-finalizing. Pop Xiao MD IMG FILM LIBRARY ORD ERABLES [place], [place] documented in this encounter Visit Diagnoses Diagnosis Pain Generalized pain documented in this encounter Care Teams Felt Washing Machine Tender Relationship Specialty Start Date End Date Altaf Hoover MD [address] [place] [address] PCP - General 04/19/11 09/18/17 documented as of this encounter
--- OUTSIDE RECORDS SUMMARY | 2023-10-24 16:01 | XMS_ITS | Encounter Summary ---
[place] [address] Care Team Providers Care Candle Molder Name Role Phone Unavailable Primary Care Provider Unavailabl e Encounter Details Date Type Department Care Team (Late st Contact Info) Description 07/05/2018 Telephone Psychiatry and [place] [address] Misty Pak Social History Tobacco Use Types Packs/Day Years [...] encounter Miscellaneous Notes * Telephone Encounter - Misty Pak - 07/05/2018 1:08 PM EDT Referrals faxed to the following outside facilities in search for an involuntary bed: [facility]- referral received, #17 on the list. [facility]- Referral faxed, no beds available at this time. [facility]- Referral faxed, no beds available at this time. [facility]- Referral faxed, no beds available at this time. documented in this encounter Plan of Treatment Upcoming Encounters Date Type Department Care Team (Late st Contact Info) Description 03/20/2024 10:00 AM EST Office Visit [place] [address] Tania Gates, [facility] [place] [place] [address] documented as of this encounter Visit Diagnoses Not on filedocumented in this encounter
--- OUTSIDE RECORDS SUMMARY | 2023-10-24 16:01 | XMS_ITS | Encounter Summary ---
[place] [address] Care Team Providers Care Harness Cutter Name Role Phone Al[place]f Hoover MD Primary Care Provider [phone] Encounter Details Date Type Department Care Team (Late st Contact Info) Description 08/24/2017 [place] [address] Shereen Talbert MD [facility] [place] [address] Social History Tobacco Use Types Packs/Day Years [...] encounter Miscellaneous Notes * Telephone Encounter - Shereen Talbert MD - 08/24/2017 7:45 PM EDT Telephone Triage Note Initial Contact Date: 08/24/2017 Initial contact time: ~1930 Referring Provider: Dr. Lion Borjas Patient Location: [facility] ED Presenting Symptoms per OSH: 51yoM actively smoking 2PPD w/h/o obesity (120kg), DM2, HLD on lipitor who presents with chest painfound to have NSTEMI. Patient was at rest [...] he ruled out for ACS and had a negative NM MPI, by report. 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 Therefore I have accepted the [...] 10:00 AM EST Office [place] [address] Tania Gates, [facility] [place] [address] documented as of this encounter Visit Diagnoses Not on filedocumented in this encounter Care Teams Harness Cutter Relationship Specialty Start Date End Date Altaf Hoover MD [address] [place] [address] PCP - General 04/19/11 09/18/17 documented as of this encounter
--- OUTSIDE RECORDS SUMMARY | 2023-10-24 16:01 | XMS_ITS | Encounter Summary ---
[place] [address] Care Team Providers Care Medical Assembly Name Role Phone Unavailable Primary Care Provider Unavailabl e Encounter Details Date Type Department Care Team (Late st Contact Info) Description 07/02/2018 Telephone [place] [address] Tamica Perera Social History Tobacco Use Types Packs/Day Years [...] encounter Miscellaneous Notes * Telephone Encounter - Tamica Perera - 07/02/2018 10:56 AM EDT Samy Patricio Jr. [id number] Diagnosis: Diaz's esopagus surveillance dysphagia 1. Have you ever had a colonoscopy before? [x] YES [] NO If Yes, Date of Last EGD: 2016 per patient . [facility] 2011 If yes, did you have any problems with the procedure? [] YES [x] NO Explain: What type of sedation was used: IV sedation 2. Do you take any Blood Thinners? [x] YES [] NO If Yes, type: Clopidogrel 3. Do you have a Pacemaker or Defibrillator device? [] YES [x] NO If Yes send inLexity message to [facility] ENDO DEVICE CHECK 4. Are you a diabetic? [...] 10:00 AM EST Office Visit Ophthalmology at [facility] [place] [address] Tania Gates OD [facility] [place] [address] documented as of this encounter Visit Diagnoses Not on filedocumented in this encounter
--- OUTSIDE RECORDS SUMMARY | 2023-10-24 16:01 | XMS_ITS | Encounter Summary ---
[place] [address] Care Team Providers Care Multi Line Claims Adjuster Name Role Phone Altaf Hoover MD Primary Care Provider [phone] Encounter Details Date Type Department Care Team (Late st Contact Info) Description 08/24/2017 External [place] [address] Social History Tobacco Use Types Packs/Day Years [...] 10:00 AM EST Office [place] [address] Tania Gates OD [facility] [place] [address] documented as of this encounter Procedures Procedure Name Priority Date/Time Associated Diagnosis Comments ECG SCAN Routine 08/24/2017 documented in this encounter Results * Scan Doc: ECG (08/24/2017) Historical Provider MD KUMAR MGR SCAN EX T ORDR/RSLT documented in this encounter Visit Diagnoses Not on filedocumented in this encounter Care Teams Multi Line Claims Adjuster Relationship Specialty Start Date End Date Altaf Hoover MD [address] [place] [address] PCP - General 04/19/11 09/18/17 documented as of this encounter
--- OUTSIDE RECORDS SUMMARY | 2023-10-24 16:01 | XMS_ITS | Encounter Summary ---
Author Organization [facility] [place] [address] Care Team Providers Care Tray Drier Name Role Phone Unavailable Primary Care Provider Unavailabl e Encounter Details Date Type Department Care Team (Latest Contact Info) Description 09/27/2018 7:01 AM EDT - 09/27/2018 8:45 AM EDT Hospital En[place] [address] Luc Hdz MD [facility] [place] [address] Discharge Disposition: Home Social History Tobacco Use [...] 36.5 ??C (97.7 ??F) 09/27/2018 7:33 AM ED T Respiratory Rate 17 09/27/2018 8:30 AM EDT Oxygen Saturation 91% 09/27/2018 8:30 AM EDT Inhaled Oxygen Concentration - - Weight 120.2 kg (265 lb) 09/27/2018 7:33 AM EDT Height - - Body Mass Index 35.94 07/04/2018 8:37 PM EDT documented in this encounter Discharge Instructions * Discharge Instructions* Zuleyka Sheppard RN - 09/27/2018 8:16 AM EDT Please call [phone] before 8pm Mon-Fri with problems, questions or concerns. If you call after 8pm or on weekends, call the Hospital at [phone] and ask to speak to the Form Raiser clin application specialist and the sewing machine operator floorperson will contact that person for you. * Attachments The following attachments cannot be sent through Care Everywhere. * EGD (Upper Endoscopy): Post-op (Slovak) documented in this encounter Medications at Time of Discharge Medication Sig Dispensed Refills Start Date End Date aspirin 81 mg Tablet, Delayed Release (E.C.) Take 81 mg by mouth Daily. 08/27/2017 predniSONE (DELTASONE) 20 mg Tablet TAKE 2 TABLETS BY MOUTH ONCE DAILY FOR 5 DAYS THEN STOP 0 06/12/2018 01/28/2019 clopidogrel (PLAVIX) 75 mg Tablet Take 75 mg by mouth Daily. 08/27/2017 01/28/2019 isosorbide mononitrate (IMDUR) 60 mg Tablet Sustained Release 24 hr Take 60 mg by mouth daily. 11 05/07/2018 11/09/2018 metoprolol succinate (TOPROL-XL) 25 mg Tablet Sustained Release 24 hr Take 50 mg by mouth Daily. 08/26/2017 08/07/2019 nicotine (NICODERM CQ) 14 mg/[address] 1 patch onto the skin Daily. 08/26/2017 01/28/2019 atorvastatin (LIPITOR) 40 mg Tablet Take 40 mg by mouth Daily. 08/27/2017 08/07/2019 glipiZIDE (GLUCOTROL) 5 mg Tablet Take 10 mg by mouth 2 times daily (before meals). 4 11/15/2016 02/24/2022 metFORMIN (GLUCOPHAGE) 1,000 mg Tablet Take 1,000 mg by mouth nightly. 4 11/15/2016 11/14/2018 documented as of this encounter H&P Notes * Luc Hdz MD - 09/27/2018 7:36 AM [...] 10:00 AM EST [place] [address] Tania Gates OD [facility] [place] [address] documented as of this encounter Procedures Procedure Name Priority Date/Time Associated Diagnosis Comments SPECIMEN TO PATHOLOGY Routine 09/27/2018 8:12 AM EDT SPECIMEN TO PATHOLOGY Routine 09/27/2018 8:12 AM EDT SURGICAL PATHOLOGY REPORT Routine 09/27/2018 8:05 AM EDT UPPER GASTROINTESTINAL ENDOSCOPY,WITH BIOPSY SINGLE OR MULTIPLE (WRVU 2.39) 09/27/2018 7:53 AM EDT Diaz's esopagus surveillance dysphagia proclear POCT GLUCOSE Routine 09/27/2018 7:49 AM EDT UPPER GI ENDOSCOPY Routine 09/27/2018 7: 40 AM EDT documented in this encounter Results * Specimen to Pathology (09/27/2018 8:12 AM EDT) AP Specimen 09/27/2018 8:12 AM EDT 09/27/2018 8:12 AM EDT Narrative [facility] - 09/27/2018 8:12 AM EDT Specimen requisition ordered. ??Separate Pathology report to follow Luc Hdz MD PATHOLOGY/CYTOLOGY O SAEID Performing Organization Address [facility] Co de Phone Number [facility] [place] [address] * Specimen to Pathology (09/27/2018 8:12 AM EDT) AP Specimen 09/27/2018 8:12 AM EDT 09/27/2018 8:12 AM EDT Narrative [facility] - 09/27/2018 8:12 AM EDT Specimen requisition ordered. ??Separate Pathology report to follow Luc Hdz MD PATHOLOGY/CYTOLOGY O SAEID Performing Organization Address [facility] [place] [address] * Surgical Pathology Report (09/27/2018 8:05 AM EDT) Final Diagnosis [id number] ? Location: ; [facility]; The signing pathologist has (i) examined the relevant preparation(s) for the specimen(s) and (ii) rendered or confirmed the diagnosis(es). . ?Surgical Pathology DIAGNOSIS A - Duodenum, biopsy: - ??Duodenal mucosa, negative for diagnostic abnormality ??. B - Z line, biopsy: - ??Diaz's esophagus, negative for dysplasia. CR-PX Electronically signed by: ??Rc Mathews MD Verified: ??10/01/2018 ?Pathologist Performed at: ??-[facility] Dept. of Pathology, [place], [place] CLINICAL INFORMATION Specimen Submitted: A - duodenum biopsies B - z-line biopsies Clinical History and Diagnosis: Patient with bloating and short segment Diaz's esophagus SPECIMEN PROCESSING A - Labeled/Fixativ e: Duodenum biopsies, formalin. Quantity/Size: Two, averaging 0.4 cm. Tissue Description: Soft, pink tissues. Sections/Proces sing: Submitted en toto ??in 1 cassette labeled A1. B - Labeled/Fixativ e: Z line biopsies, formalin. Quantity/Size: Multiple, 0.1-0.3 cm. Tissue Description: Soft, pink tissues. Sections/Proces sing: Submitted en toto ??in 2 cassettes labeled B1-B2. ??ejr 10/01/2018 3:36 PM EDT [facility] GI Biopsy 09/27/2018 8:05 AM EDT 09/27/2018 8:05 AM EDT GI Biopsy 09/27/2018 8:05 AM EDT 09/27/2018 8:05 AM EDT Luc Hdz MD PATHOLOGY/CYTOLOGY O RDLENARD [facility] [place] [place] [address] * POCT Glucose (09/27/2018 7:49 AM EDT) Glucose, POC 124 65 - 199 mg/dL [facility] Comment: Supplemental ranges: <140 mg/dL before meals <180 mg/dL all other times of the day Blood specimen (specimen) 09/27/2018 7:49 AM EDT 09/27/2018 7:49 AM EDT Luc Hdz MD POINT OF CARE TEST O RDLENARD Performing Organization Address City/[facility] Co de Phone Number [facility] [place] [address] * UPPER GI ENDOSCOPY (09/27/2018 7:40 AM EDT) Pathologist [facility] UPPER GI ENDOSCOPY [facility] Endoscopy Procedure Date: 09/27/2018 7:40 AM ? Patient Name: Samy Patricio ? Date of : 1965 ? Age: 52 ? Order #: [id number] ? Instrument Name: [id number] ? Procedure: ? Upper GI endoscopy Indications: ? Short segment of Diaz's, on ? Protonic, bloating Providers: ? Luc Hdz MD, Jyoti Castillo ? Sharmila, GUILLAUME, Aleena Louis Referring : ?Abi Lazaro Medicines: ? Midazolam 4 mg IV, Fentanyl 250 ? micrograms IV Complications: ? No immediate complications. Procedure: ? The procedure, indications, benefits, ? risks and alternatives were explained ? to the patient. Specifically ? discussed were potential ? complications including, but not ? limited to, bleeding, perforation, ? infection, missing a cancer, and ? adverse medication reactions. The ? Endoscope was introduced through the ? mouth, and advanced to the third part ? of duodenum. The patient tolerated ? the procedure well. The upper GI [...] Normal stomach. ? - Normal examined duodenum. Biopsied. Recommendation: ?- Await pathology results. ? Attending Participation: ? I personally performed the entire procedure. ? __ Luc Hdz MD 09/27/2018 8:27:17 AM This report has been signed electronically. Number of Addenda: 0 Note Initiated On: 09/27/2018 7:40 AM PROVATION 09/27/2018 7:40 AM EDT Abi Lazaro GLUE DRIER OPERATOR GENERAL SURGICAL ORDERABLES PROVATION documented in this encounter Visit Diagnoses Not on filedocumented in this encounter Administered Medications Inactive Administered Medications - up to 3 most recent administrations Medication Order MAR Action Action Date Dose Rate Site lactated ringers infusion 100 mL/hr, Intravenous, CONTINUOUS, Starting on Migdalia 09/27/18 at 0745, Until Migdalia 09/27/18 at 0835, Endoscopy (Day of Procedure) New Bag 09/27/2018 7:45 AM EDT 100 mL/hr 100 mL/hr documented in this encounter Active and Recently Administered Medications Times are shown in EDT. Continuous Medication Order 09/25/2018 09/26/2018 09/27/2018 lactated ringers infusion (CANCELED) 100 mL/hr, Intravenous, CONTINUOUS, Starting on Migdalia 09/27/18 at 0745, Until Migdalia 09/27/18 at 0835, Endoscopy (Day of Procedure) 0745 (New Bag - Prov ider: Candace Dupree RN) PRN Medication Order 09/25/2018 09/26/2018 09/27/2018 fentaNYL 50 mcg/mL multi-dose injection (CANCELED) ONCE PRN, Starting on Migdalia 09/27/18 at 0755, Until Migdalia 09/27/18 at 1046, Intra-Operative (Intra-Procedure), Routine 0755 (Given - Provid er: Jyoti Doll RN)0758 (Given - Provider: Jyoti Doll RN)0801 (Given - Provider: Jyoti Doll RN)0804 (Given - Provider: Jyoti Doll RN)0807 (Given - Provider: Jyoti Doll RN) midazolam (PF) (VERSED) multi-dose injection (CANCELED) ONCE PRN, Starting on Migdalia 09/27/18 at 0755, Until Migdalia 09/27/18 at 1046, Intra-Operative (Intra-Procedure), Routine 0755 (Given - Provid er: Jyoti Doll RN)0758 (Given - Provider: Jyoti Doll RN)0801 (Given - Provider: Jyoti Doll RN)0804 (Given - Provider: Jyoti Doll RN) documented in this encounter
--- OUTSIDE RECORDS SUMMARY | 2023-10-24 16:01 | XMS_ITS | Encounter Summary ---
[place] [address] Care Team Providers Care Vice President Fixed Income Name Role Phone Unavailable Primary Care Provider Unavailabl e Encounter Details Date Type Department Care Team (Late st Contact Info) Description 10/15/2018 Ancillary Procedure Radiology at [facility] [address] [place] [address] Rosanna Clement MD [address] [place] [address] Social History Tobacco Use Types Packs/Day Years [...] 10:00 AM EST Office [place] [address] Tania Gates OD [facility] [place] [address] documented as of this encounter Procedures Procedure Name Priority Date/Time Associated Diagnosis Comments FILM LIBRARY STORAGE ONLY MR SPINE Routine 10/15/2018 12:00 AM EDT documented in this encounter Results * Film Library- Storage Only MR Spine (10/15/2018 12:00 AM EDT) Narrative [facility] - 10/18/2018 12:20 PM EDT This exam is auto-finalizing. It's purpose is for storage only. Rosanna Clement MD [facility] FILM LIBRARY ORDERABLES Performing Organization Address City/State/[facility] Co de Phone Number [place], [place] documented in this encounter Visit Diagnoses Not on filedocumented in this encounter
--- OUTSIDE RECORDS SUMMARY | 2023-10-24 16:01 | XMS_ITS | Encounter Summary ---
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 [facility] Comment: Greater than 800 mg/L (0.08%) should be considered intoxicated. 3400 to 4500 mg/L (0.34 - 0.45%) is considered severe intoxication. Greater than 5500 mg/L (0.55%) is usually fatal. Blood specimen (specimen) 07/04/2018 9:00 PM EDT 07/04/2018 9:07 PM EDT Narrative Resulting Agency Comment Spec In Lab Ruth Velazquez MD CHEMISTRY ORDERABLE S Performing Organization Address [facility] Co de Phone Number [facility] [place] [address] * (ABNORMAL) Basic Metabolic Panel (non-fasting) (07/04/2018 9:00 PM EDT) Glucose 279(H) 65 - 199 mg/dL [facility] Comment:Diabetes: >=200 mg/d L plus symptoms Blood Urea Nitrogen 17 10 - 20 mg/dL [facility] Creatinine 1.27 0.80 - 1.50 mg/dL [facility] Sodium 138 135 - 145 mmol/L [facility] Potassium 3.9 3.5 - 5.0 mmol/L [facility] Comment: Please note: ??Patients with WBC >100,000 may have falsely elevated Potassium levels. ??For accurate Potassium quantification in these patients send serum separator tube (gold top) for subsequent determinations. ??Contact the Clinical Chemistry Laboratory if there are any questions. Chloride 100 98 - 107 mmol/L [facility] Carbon Dioxide 21(L) 22 - 31 mmol/L [facility] Anion Gap 17(H) 5 - 15 mmol/L [facility] Calcium 9.8 8.5 - 10.5 mg/dL [facility] Est Glomerular Filtration Rate 65 >=60 mL/min/1. 73 m?? [facility] Comment: The eGFR was calculated using the CKD-EPI equation. As with all creatinine based estimates of kidney function, eGFR values calculated with the CKD-EPI equation are not accurate in patients with acute kidney failure, extremes of body mass or the acutely ill. [email or web address] eGFR 75 >=60 mL/min/1. 73 m?? [facility] Comment: The eGFR was calculated using the CKD-EPI equation. As with all creatinine based estimates of kidney function, eGFR values calculated with the CKD-EPI equation are not accurate in patients with acute kidney failure, extremes of body mass or the acutely ill. [email or web address] Blood specimen (specimen) 07/04/2018 9:00 PM EDT 07/04/2018 9:07 PM EDT Narrative Resulting Agency Comment Spec In Lab Ruth Velazquez MD CHEMISTRY ORDERABLE S [facility] [place] [address] * (ABNORMAL) Rapid Drug Screen w/o Confirmation, Urine (07/04/2018 8:48 PM EDT) Barbiturates Screen, Urine None Detected None Detected [facility] Comment: The barbiturate screen detects barbiturates at concentrations >200 ng/mL. Note: Not all barbiturates cross-react equally with antibody used in this screen. A ? Presumptive Positive? result indicates that the screening result was positive but has not yet been confirmed by a highly-specific method. As with any screen, occasional false positive results from cross-reacting substances may occur. Not for Medico-Legal Purposes. Benzodiazepines Screen, Urine None Detected None Detected [facility] Comment: The benzodiazepines screen detects benzodiazepines at concentrations >100 ng/mL. Not all benzodiazepines cross-react equally with antibody used in this screen. Due to the low dosage of clonazepam, false negatives may be obtained due to low concentration of clonazepam metabolites. A ? Presumptive Positive? result indicates that the screening result was positive but has not yet been confirmed by a highly-specific method. As with any screen, occasional false positive results from cross-reacting substances may occur. Not for Medico-Legal Purposes. Cocaine Screen, Urine None Detected None Detected [facility] Comment: The cocaine metabolites screen detects benzoylecgonine (Cocaine Metabolite) at concentrations >150 ng/mL. A ? Presumptive Positive? result indicates that the screening result was positive but has not yet been confirmed by a highly-specific method. As with any screen, occasional false positive results from cross-reacting substances may occur. Not for Medico-Legal Purposes. Methadone Metabolites Screen, Urine None Detected None Detected [facility] Comment: The methadone metabolite screen detects EDDP (major methadone metabolite) at concentrations >100 ng/mL. A ? Presumptive Positive? result indicates that the screening result was positive but has not yet been confirmed by a highly-specific method. As with any screen, occasional false positive results from cross-reacting substances may occur. Not for Medico-Legal Purposes. Opiate Screen, Urine None Detected None Detected [facility] Comment: The opiates screen detects opiates at concentrations >300 ng/mL. Please note that oxycodone, oxymorphone, fentanyl, tramadol, and other synthetic opioids are not detected by the opiate screen. A ? Presumptive Positive? result indicates that the screening result was positive but has not yet been confirmed by a highly-specific method. As with any screen, occasional false positive results from cross-reacting substances may occur. Not for Medico-Legal Purposes. Cannabinoid Screen, Urine None Detected None Detected [facility] Comment: The marijuana metabolites screen detects the THC metabolite (82-nza-7-carboxy-delta 9-THC) at concentrations >20 ng/mL. A ? Presumptive Positive? result indicates that the screening result was positive but has not yet been confirmed by a highly-specific method. As with any screen, occasional false positive results from cross-reacting substances may occur. Not for Medico-Legal Purposes. Oxycodone Screen, Urine None Detected None Detected [facility] Comment: The oxycodone screen detects oxycodone and oxymorphone at concentrations >100 ng/mL. A ? Presumptive Positive? result indicates that the screening result was positive but has not yet been confirmed by a highly-specific method. As with any screen, occasional false positive results from cross-reacting substances may occur. Not for Medico-Legal Purposes. Buprenorphine Screen, Urine None Detected None Detected [facility] Comment: The buprenorphine screen detects buprenorphine at concentrations >5 ng/mL. A ? Presumptive Positive? result indicates that the screening result was positive but has not yet been confirmed by a highly-specific method. As with any screen, occasional false positive results from cross-reacting substances may occur. Not for Medico-Legal Purposes. Fentanyl Screen, Urine None Detected None Detected [facility] Comment: The fentanyl screen detects fentanyl at concentrations >2 ng/mL. A ? Presumptive Positive? result indicates that the screening result was positive but has not yet been confirmed by a highly-specific method. As with any screen, occasional false positive results from cross-reacting substances may occur. Not for Medico-Legal Purposes. Tricyclics Screen, Urine None Detected None Detected [facility] Comment: The tricyclics screen detects tricyclic antidepressants at concentrations >150 ng/mL. Not all tricyclics cross-react equally with the antibody used in this screen. A ? Presumptive Positive? result indicates that the screening result was positive but has not yet been confirmed by a highly-specific method. As with any screen, occasional false positive results from cross-reacting substances may occur. Not for Medico-Legal Purposes. Ethanol Screen, Urine Positive(A) None Detected [facility] Comment:This urine ethanol a ssay detects ethanol at concentrations >/= 100 mg/L. Amphetamines Screen, Urine None Detected None Detected [facility] Comment: The amphetamine screen detects d-amphetamine and d-methamphetamine at concentrations >300 ng/mL. A ? Presumptive Positive? result indicates that the screening result was positive but has not yet been confirmed by a highly-specific method. As with any screen, occasional false positive results from cross-reacting substances may occur. Not for Medico-Legal Purposes. Adulterants Screen, Urine Suspected(A ) None Detected [facility] Comment: An adulteration screen performed on this urine sample produced a result that is suspicious for adulteration or dilution. Urine dilution or adulteration can produce false negative or positive drug screen results. All urine samples submitted for urine drugs of abuse analysis are tested for creatinine concentration, pH, and for the presence of oxidants, nitrites, and chromate. Urine specimen (specimen) 07/04/2018 8:48 PM EDT 07/04/2018 8:58 PM EDT Narrative Resulting Agency Comment Spec In Lab Devon WALTON CHEMISTRY ORDERABLES Performing Organization Address [facility] Co de Phone Number [facility] [place] [address] * Rapid Drug Screen, Urine (MAYCO Request) (07/04/2018 8:48 PM EDT) MAYCO Conf Requested No [facility] MAYCO Requested See Comment [facility] Comment:Refer to Rapid Drug Screen w/o Confirmation, Urine for results. Urine specimen (specimen) 07/04/2018 8:48 PM EDT 07/04/2018 8:58 PM EDT Narrative Resulting Agency Comment Spec In Lab Ruth Velazquez MD URINE ORDERABLES Performing Organization Address [facility] Co de Phone Number [facility] [place] [address] documented in this encounter Visit Diagnoses Diagnosis Emotional crisis Other adjustment reaction with predominant disturbance of other emotions documented in this encounter Administered Medications Inactive Administered Medications - up to 3 most recent administrations Medication Order MAR Action Action Date Dose Rate Site aspirin chewable tablet 81 mg 81 mg, Oral, ONCE, 1 dose, On Mon07/05/18 at 0856, STAT Given 07/05/2018 9:18 AM EDT 81 mg atorvastatin (LIPITOR) tablet 40 mg 40 mg, Oral, EVERY EVENING, First dose on Mon07/05/18 at 1700, Until Discontinued, Routine clopidogrel (PLAVIX) tablet 75 mg 75 mg, Oral, ONCE, 1 dose, On Mon07/05/18 at 0856, STAT Given 07/05/2018 9:18 AM EDT 75 mg diphenhydrAMINE (BENADRYL) injection 25 mg 25 mg, Intramuscular, ONCE PRN, 1 dose, Starting on Mon07/04/18 at 2306, Until Migdalia 07/05/18 at 1603, agitation, STAT glyBURIDE (DIABETA) tablet 5 mg 5 mg, Oral, NIGHTLY, First dose on Mon07/05/18 at 0100, Until Discontinued, Consider holding dose if patient is not eating., Routine Given 07/04/2018 11:48 PM EDT 5 mg haloperidol lactate (HALDOL) injection 5 mg 5 mg, Intramuscular, ONCE PRN, 1 dose, Starting on Mon07/04/18 at 2305, Until Migdalia 07/05/18 at 1603, Agitation, If medication ordered subcutaneously, do not administer more than 2 mL as a single injection., Routine isosorbide mononitrate (IMDUR) CR tablet 60 mg 60 mg, Oral, EVERY MORNING, 1 dose, First dose on Mon07/05/18 at 0930, DO NOT CRUSH OR OPEN, Routine Given 07/05/2018 1:44 PM EDT 60 mg LORazepam (ATIVAN) injection 1-3 mg 1-3 mg, [...] or IM., Routine LORazepam (ATIVAN) injection 1-3 mg 1-3 mg, Intramuscular, EVERY 4 HOURS PRN, Starting on Mon07/04/18 [...] 2 mg, Intramuscular, ONCE PRN, 1 dose, Starting on Mon07/04/18 at 2306, Until Migdalia 07/05/18 at 1603, agitation, Routine LORazepam (ATIVAN) tablet 1-3 mg 1-3 mg, Oral, EVERY 4 HOURS PRN, Starting on Mon07/04/18 [...] IM., Routine metFORMIN (GLUCOPHAGE) tablet 1,000 mg 1,000 mg, Oral, 2 TIMES DAILY WITH MEALS, First dose (after last modification) on Mon07/04/18 at 2330, Until Discontinued, Routine Given 07/05/2018 9:18 AM EDT 1,000 mg Given 07/04/2018 11:48 PM EDT 1,000 mg metoprolol succinate (TOPROL-XL) XL tablet 25 mg 25 mg, Oral, DAILY, First dose on Mon07/05/18 at 0900, Until Discontinued, DO NOT CRUSH OR OPEN, Routine Given 07/05/2018 9:18 AM EDT 25 mg nicotine (NICODERM CQ) 14 mg/24 hr patch 28 mg 28 mg (2 patch), Transdermal, Administer over 24 Hours, ONCE, 1 dose, On Mon07/04/18 at 2224, STAT Given 07/04/2018 10:24 PM EDT 28 mg 10- Arm Upper (Right ) pantoprazole (PROTONIX) tablet 40 mg 40 mg, Oral, DAILY, First dose on Mon07/04/18 at 2330, Until Discontinued, DO NOT CRUSH OR OPEN, Routine Given 07/04/2018 11:48 PM EDT 40 mg predniSONE (DELTASONE) tablet 30 mg 30 mg, Oral, DAILY, First dose on Mon07/05/18 at 0951, Until Discontinued, STAT Given 07/05/2018 10:03 AM EDT 30 mg QUEtiapine (SEROquel) tablet 100 mg 100 mg, Oral, ONCE, 1 dose, On Mon07/04/18 at 2320, STAT Given 07/04/2018 11:22 PM EDT 100 mg documented in this encounter Active and Recently Administered Medications Times are shown in EDT. Scheduled Medication Order 07/03/2018 07/04/2018 07/05/2018 aspirin chewable tablet 81 mg (COMPLETED) 81 mg, Oral, ONCE, 1 dose, On Mon07/05/18 at 0856, STAT 0918 (Given - Provid er: Sandy Segura RN) atorvastatin (LIPITOR) tablet 40 mg 40 mg, Oral, EVERY EVENING, First dose on Mon07/05/18 at 1700, Until Discontinued, Routine clopidogrel (PLAVIX) tablet 75 mg (COMPLETED) 75 mg, Oral, ONCE, 1 dose, On Mon07/05/18 at 0856, STAT 0918 (Given - Provid er: Sandy Segura RN) glyBURIDE (DIABETA) tablet 5 mg 5 mg, Oral, NIGHTLY, First dose on Mon07/05/18 at 0100, Until Discontinued, Consider holding dose if patient is not eating., Routine 234 (Given - Provider: Daniel Hernandez III, RN) 0100 (Not Given - Provider: Daniel Hernandez III, RN - Reason: See comment - Comment: given earlier per MD) isosorbide mononitrate (IMDUR) CR tablet 60 mg (COMPLETED) 60 mg, Oral, EVERY MORNING, 1 dose, First dose on Mon07/05/18 at 0930, DO NOT CRUSH OR OPEN, Routine 1344 (Given - Provid er: Sandy Segura RN) metFORMIN (GLUCOPHAGE) tablet 1,000 mg 1,000 mg, Oral, 2 TIMES DAILY WITH MEALS, First dose (after last modification) on Mon07/04/18 at 2330, Until Discontinued, Routine 2347 (Given - Provider: Daniel Hernandez III, RN) 917 (Given - Provider: Sandy Segura RN) metoprolol succinate (TOPROL-XL) XL tablet 25 mg 25 mg, Oral, DAILY, First dose on Mon07/05/18 at 0900, Until Discontinued, DO NOT CRUSH OR OPEN, Routine 917 (Given - Provid er: Sandy Segura RN) nicotine (NICODERM CQ) 14 mg/24 hr patch 28 mg 28 mg (2 patch), Transdermal, Administer over 24 Hours, ONCE, 1 dose, On Mon07/04/18 at 2224, STAT 2224 (Given - Provider: Daniel Hernandez III, GUILLAUME) pantoprazole (PROTONIX) tablet 40 mg 40 mg, Oral, DAILY, First dose on Mon07/04/18 at 2330, Until Discontinued, DO NOT CRUSH OR OPEN, Routine 2347 (Given - Provider: Daniel Hernandez III, GUILLAUME) predniSONE (DELTASONE) tablet 30 mg 30 mg, Oral, DAILY, First dose on Mon07/05/18 at 0951, Until Discontinued, STAT 1003 (Given - Provid er: Sandy Segura RN) QUEtiapine (SEROquel) tablet 100 mg (COMPLETED) 100 mg, Oral, ONCE, 1 dose, On Mon07/04/18 at 2320, STAT 2322 (Given - Provider: Daniel Hernandez III, GUILLAUME) PRN Medication Order 07/03/2018 07/04/2018 07/05/2018 diphenhydrAMINE (BENADRYL) injection 25 mg 25 mg, Intramuscular, ONCE PRN, 1 dose, Starting on Mon07/04/18 at 2306, Until Migdalia 07/05/18 at 1603, agitation, STAT 2347 (Not Given - Provider: Daniel Hernandez III, GUILLAUME - Reason: See comment - Comment: Pt status changed) haloperidol lactate (HALDOL) injection 5 mg 5 mg, Intramuscular, ONCE PRN, 1 dose, Starting on Mon07/04/18 at 2305, Until Migdalia 07/05/18 at 1603, Agitation, If medication ordered subcutaneously, do not administer more than 2 mL as a single injection., Routine 234 (Not Given - Provider: Daniel Hernandez III, RN - Reason: See comment - Comment: Pt status changed) LORazepam (ATIVAN) injection 1-3 mg(Linked Group 1) [...] 1) 1-3 mg, Intramuscular, EVERY 4 HOURS PRN, Starting on Mon07/04/18 [...] 2 mg, Intramuscular, ONCE PRN, 1 dose, Starting on Mon07/04/18 at 2306, Until Migdalia 07/05/18 at 1603, agitation, Routine 2344 (Not Given - Provider: Daniel Hernandez III, RN - Reason: See comment - Comment: Pt status changed) LORazepam (ATIVAN) tablet 1-3 mg(Linked Group 1) 1-3 mg, Oral, EVERY 4 HOURS PRN, Starting on Mon07/04/18 [...] 1-3 mg, Oral, EVERY 4 HOURS PRN, Starting on Mon07/04/18 [...] or IM., Routine Or LORazepam (ATIVAN) injection 1-3 mgJump [...] or IM., Routine Or LORazepam (ATIVAN) injection 1-3 mgJump to med 1-3 mg, Intramuscular, EVERY 4 HOURS PRN, Starting on Mon07/04/18 [...]
--- OUTSIDE RECORDS SUMMARY | 2023-10-24 16:01 | XMS_ITS | Encounter Summary ---
Author Organization Formerly [facility] [place] [address] Care Team Providers Care Hand Worker Name Role Phone Sae Marr MD Primary Care Provider [phone] Encounter Details Date Type Department Care Team (Late st Contact Info) Description 08/06/2019 12:35 AM EDT Ancillary Procedure [place] [phone] Dallas Gutierrez MD [address] [place] [id number] Social History Tobacco Use Types Packs/Day Years [...] 10:00 AM EST Office [place] [phone] Tania Gates OD [facility] [address] OPHTHALMOLOGY [place], [place] [id number] documented as of this encounter Procedures Procedure Name Priority Date/Time Associated Diagnosis Comments FILM LIBRARY STORAGE ONLY DX CHEST Routine 08/06/2019 12:34 AM EDT documented in this encounter Results * Film Library- Storage Only DX Chest (08/06/2019 12:34 AM EDT) Narrative RAD - 08/06/2019 12:34 AM EDT This exam is auto-finalizing. It's purpose is for storage only. Dallas Gutierrez MD IMG FILM LIBRARY ORD ERABLES [place], [place] documented in this encounter Visit Diagnoses Not on filedocumented in this encounter Care Teams Hand Worker Relationship Specialty Start Date End Date Sae Marr MD PCP - General General Internal Medicine 08/06/19/ documented as of this encounter
--- OUTSIDE RECORDS SUMMARY | 2023-10-24 16:01 | XMS_ITS | Encounter Summary ---
Author Organization [facility] [address] Care Team Providers Care [facility] Name Role Phone Unavailable Primary Care Provider Unavailabl e Reason for Visit * Reason Comments Diabetic Eye Exam Pseudophakia * Consultation (Routine) - Closed Specialty Diagnoses / Procedures Referred By Contadrian t Referred To Contact Ophthalmology Diagnoses DIABETIC EYE EXAM Abi Lazaro APRN [address] [place] [address] Tania Gates, [facility] [place] [address] Referral ID Status Reason Start Date Expiration Date V isits Requested Visits Authorized [id number] Closed Consult, Test & Treat Connection Center PCP Updated and/or Approved 01/30/2019 01/30/2020 1 1 Encounter Details Date Type Department Care Team (Late st Contact Info) Description 02/08/2019 9:40 AM EST Office [place] [phone] Tania Gates, [facility] [place] [address] Diabetic eye exam; Pseudophakia of right eye; [...] Progress Notes * Tania Gates, OD - 02/08/2019 9:40 AM EST Encounter Diagnoses Name Primary? Diabetic eye exam ??? Pseudophakia of right eye ??? Age-related nuclear cataract of left eye ??? History of eye injury ??? Astigmatism of both eyes with presbyopia Samy Patricio Jr. is a 53 y.o. 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 - Findings and concerns discussed with Samy and he expressed understanding. -Upon Return CEE in 1 year, sooner with changes in sx/vision. Eyeglass Final Rx Eyeglass Final Rx Sphere Cylinder Dist VA Add Near VA Right +0.25 Sphere 20/20 +2.50 20/20 Left Balance Expiration Date: 02/08/2021 Polycarbonate documented in this encounter Plan of Treatment Upcoming Encounters Date Type Department Care Team (Late st Contact Info) Description 03/20/2024 10:00 AM EST Office [place] [phone] Tania Gates, OD [facility] [place] [address] documented as of this encounter Visit Diagnoses Diagnosis Diabetic eye exam Examination of eyes and vision Pseudophakia of right eye Lens replaced by other means Age-related nuclear cataract of left eye Senile nuclear sclerosis History of eye injury Personal history of other injury Astigmatism of both eyes with presbyopia documented in this encounter
--- OUTSIDE RECORDS SUMMARY | 2023-10-24 16:01 | XMS_ITS | Encounter Summary ---
Author Organization Formerly [facility] [place] [address] Care Team Providers Care Wild Life Photographer Name Role Phone Unavailable Primary Care Provider Unavailabl e Encounter Details Date Type Department Care Team (Late st Contact Info) Description 09/27/2018 8:00 AM EDT - 09/27/2018 8:30 AM EDT Surgery [place] [id number] Luc Hdz MD [facility] [place] [address] UPPER GASTROINTESTINAL ENDOSCOPY,WITH BIOPSY SINGLE OR MULTIPLE (WRVU 2.39) Social History Tobacco Use Types [...] - 09/27/2018 8:16 AM EDT Please call [phone] before 8pm Mon-Fri with problems, questions or concerns. If you call after 8pm or on weekends, call the Hospital at [phone] and ask to speak to the Button Breaker second officer and the burning machine operator will contact that person for you. * Attachments The following attachments cannot be sent through Care Everywhere. * EGD (Upper Endoscopy): Post-op (Danish) documented in this encounter Medications at Time [...] 10:00 AM EST Office [place] [address] Taina Gates, [facility] [place] [address] documented as of this encounter Procedures Procedure [...] AM EDT 09/27/2018 8:12 AM EDT Narrative [facility] - 09/27/2018 8:12 AM EDT Specimen requisition ordered. ??Separate Pathology report to follow Luc Hdz MD PATHOLOGY/CYTOLOGY O SAEID Performing Organization Address [facility] [place] [address] * Specimen to Pathology (09/27/2018 8:12 AM EDT) AP Specimen 09/27/2018 8:12 AM EDT 09/27/2018 8:12 AM EDT Narrative [facility] - 09/27/2018 8:12 AM EDT Specimen requisition ordered. ??Separate Pathology report to follow Luc Hdz MD PATHOLOGY/CYTOLOGY O SAEID Performing Organization Address [facility] [place] [address] * Surgical Pathology Report (09/27/2018 8:05 AM EDT) Final Diagnosis [id number] ? Location: 4; EA09; A The signing pathologist has (i) examined the relevant preparation(s) for the specimen(s) and (ii) rendered or confirmed the diagnosis(es). . ?Surgical Pathology DIAGNOSIS A - Duodenum, biopsy: - ??Duodenal mucosa, negative for diagnostic abnormality ??. B - Z line, biopsy: - ??Diaz's esophagus, negative for dysplasia. CR-PX Electronically signed by: ??Rc Mathews MD Verified: ??10/01/2018 ?Pathologist Performed at: ??-[facility] Dept. of Pathology, [place], [place] CLINICAL INFORMATION Specimen Submitted: A - [...] labeled B1-B2. ??ejr 10/01/2018 3:36 PM EDT [facility] GI Biopsy 09/27/2018 8:05 AM EDT 09/27/2018 8:05 AM EDT GI Biopsy 09/27/2018 8:05 AM EDT 09/27/2018 8:05 AM EDT Luc Hdz MD PATHOLOGY/CYTOLOGY O RDLENARD Performing Organization Address City/[facility]/ZIP Co de Phone Number [facility] [place] [address] * POCT Glucose (09/27/2018 7:49 AM EDT) Glucose, POC 124 65 - 199 mg/dL [facility] Comment: Supplemental ranges: <140 mg/dL before meals <180 mg/dL all other times of the day Blood specimen (specimen) 09/27/2018 7:49 AM EDT 09/27/2018 7:49 AM EDT Luc Hdz MD POINT OF CARE TEST O RDERASERGIO Performing Organization Address City/[facility]/ZIP Co de Phone Number [facility] [place] [address] * UPPER GI ENDOSCOPY (09/27/2018 7:40 AM EDT) Pathologist [facility] UPPER GI ENDOSCOPY [facility] Endoscopy Procedure Date: 09/27/2018 7:40 AM ? Patient Name: Samy Patricio ? Date of : 1965 ? Age: 52 ? Order #: [id number] ? Instrument Name: [id number] ? Procedure: ? Upper GI endoscopy Indications: ? Short segment of Diaz's, on ? Protonic, bloating Providers: ? Luc Hdz MD, Jyoti Castillo ? Sharmila, GUILLAUME, Aleena Statonar Referring MD: ?Abi Lazaro Medicines: ? Midazolam 4 [...] PROVATION 09/27/2018 7:40 AM EDT Abi Lazaro INDUSTRIAL RECRUITER GENERAL SURGICAL ORDERABLES PROVATION documented in this encounter Visit Diagnoses Not on filedocumented in this encounter Administered Medications Inactive Administered Medications - up to 3 most recent administrations Medication Order MAR Action Action Date Dose Rate Site fentaNYL 50 mcg/mL multi-dose injection ONCE PRN, Starting on Migdalia 09/27/18 at 0755, Until Migdalia 09/27/18 at 1046, Intra-Operative (Intra-Procedure), Routine Given 09/27/2018 8:07 AM EDT 50 mcg Given 09/27/2018 8:04 AM EDT 50 mcg Given 09/27/2018 8:01 AM EDT 50 mcg lactated ringers infusion 100 mL/hr, Intravenous, CONTINUOUS, Starting on Migdalia 09/27/18 at 0745, Until Migdalia 09/27/18 at 0835, Endoscopy (Day of Procedure) New Bag 09/27/2018 7:45 AM EDT 100 mL/hr 100 mL/hr midazolam (PF) (VERSED) multi-dose injection ONCE PRN, Starting on Migdalia 09/27/18 at 0755, Until Migdalia 09/27/18 at 1046, Intra-Operative (Intra-Procedure), Routine Given 09/27/2018 8:04 AM EDT 1 mg Given 09/27/2018 8:01 AM EDT 1 mg [...]
--- OUTSIDE RECORDS SUMMARY | 2023-10-24 16:01 | XMS_ITS | Encounter Summary ---
[place] [address] Care Team Providers Care Sprayer Leather Name Role Phone Altaf Hoover MD Primary Care Provider Encounter Details Date Type Department Care Team (Latest Contact Info) Description 12/15/2015 - 12/15/2015 11:59 PM EDT Hospital Encounter [place] [phone] Pop Xiao MD [facility] [place] [address] Pain Discharge Disposition: Home Social History Tobacco [...] 10:00 AM EST Office [place] [address] Tania Gates, [facility] [place] [address] documented as of this encounter Procedures Procedure Name Priority Date/Time Associated Diagnosis Comments FILM LIBRARY STORAGE ONLY MR SPINE Routine 12/15/2015 12:00 AM EDT Pain documented in this encounter Results * Film Library- Storage Only MR Spine (12/15/2015 12:00 AM EDT) Narrative [facility] - 02/06/2017 1:35 PM EST This exam is for storage only and is auto-finalizing. Pop Xiao MD IMG FILM LIBRARY ORD ERABLES [place], [place] documented in this encounter Visit Diagnoses Diagnosis Pain Generalized pain documented in this encounter Care Teams Sprayer Leather Relationship Specialty Start Date End Date Altaf Hoover MD [address] [place] [address] PCP - General 04/19/11 09/18/17 documented as of this encounter
--- OUTSIDE RECORDS SUMMARY | 2023-10-24 16:01 | XMS_ITS | Encounter Summary ---
[place] [address] Care Team Providers Care Transportation Sales Consultant Name Role Phone Altaf Hoover MD Primary Care Provider [phone] Reason for Visit * Reason Comments Low Back Pain Bilateral Hip Pain Bilateral Leg Pain * Consultation (Routine) - Closed Specialty Diagnoses / Procedures Referred By Contac t Referred To Contact Orthopaedics Diagnoses Chronic left-sided low back pain/ left sciatica/ ask about imaging Altaf Hoover MD [facility] [address] [place] [address] [facility] [address] [place] [address] Referral ID Status Reason Start Date Expiration Date Visits Re quested Visits Authorized [id number] Closed 02/06/2017 02/06/2018 1 1 Encounter Details Date Type Department Care Team (Late st Contact Info) Description 02/08/2017 9:20 AM EST Office [place] [address] Teddy Simental MD [facility] [place] [address] Chronic midline low back pain without sciatica Social History Tobacco Use Types Packs/Day Years [...] (270 lb) 02/08/2017 8:41 AM EST fully dressed Height 182.9 cm (6') 02/08/2017 8:41 AM EST Body Mass Index 36.62 02/08/2017 8:41 AM EST documented in this encounter Progress Notes * Teddy Simental MD - 02/08/2017 9:20 AM [...] vertebra. MRI is reviewed from 12/15/15 from [facility]. This demonstrates once again findings consistent with [...] 10:00 AM EST Office [place] [address] Tania Gates OD [facility] [place] [address] documented as of this encounter Visit Diagnoses Diagnosis Chronic midline low back pain without sciatica documented in this encounter Care Teams Transportation Sales Consultant Relationship Specialty Start Date End Date Altaf Hoover MD [address] [place] [address] PCP - General 04/19/11 09/18/17 documented as of this encounter
--- OUTSIDE RECORDS SUMMARY | 2023-10-24 16:01 | XMS_ITS | Encounter Summary ---
Author Organization [facility] [place] [address] Care Team Providers Care Ice Plant Operator Name Role Phone Unavailable Primary Care Provider Unavailabl e Encounter Details Date Type Department Care Team (Late st Contact Info) Description 01/28/2019 9:45 AM EST Telephone Pre-Admission Testing at [facility] [address] [place] [address] Social History Tobacco Use Types Packs/Day Years [...] 10:00 AM EST Office [place] [address] Tania Gates OD [facility] [place] [address] documented as of this encounter Visit Diagnoses Not on filedocumented in this encounter
--- OUTSIDE RECORDS SUMMARY | 2023-10-24 16:02 | XMS_ITS | Encounter Summary ---
Author Organization [facility] Address [address] [place] [address] Care Team Providers Care Life Science Taxonomist Name Role Phone Unavailable Primary Care Provider Unavailabl e Encounter Details Date Type Department Care Team ([facility] Contact Info) Description 11/20/2000 Results Only Used for SCHED Conversion Only Yuliya Crain MD [address] [facility] [address] [place] [address] Social History Tobacco Use Types Packs/Day Years Used Date Smoking Tobacco: Never Assessed Sex and Gender Information Value Date Recorded Sex Assigned at Not on file Gender Identity Male 02/16/2019 6:16 EST Sexual Orientation Not on file documented as of this encounter Plan of Treatment Not on file documented as of this encounter Procedures Procedure Name Priority Date/Time Associated Diagnosis Comments SURGICAL PATHOLOGY Routine 11/20/2000 0:00 EDT documented in this encounter Results * SURGICAL PATHOLOGY (11/20/2000 0:00 EDT) Pathology Report: SURGICAL PATHOLOGY REPORT Reports generated via electronic interface contain original data; however they are lacking the format of the original report. Caution should be taken when reading/interpreti ng unformatted reports. Name: ? SAMY PATRICIO ? Accession #: ? [id number] ? : ? 1965 (Age: 34) ??M ? Collect Date: ? 11/20/2000 ? Location: ? [facility] ? Receive Date: ? 11/20/2000 ? Provider: YULIYA CRAIN MD Copy to: DEXTER ABURTO MD ? Final Pathologic Diagnosis: A. ?Conjunctive of eyelid, left lower, biopsy: 1. ?Granulation tissue formation and granulomatous inflammation. ??See microscopic and comment. B. ?Conjunctiva of eyelid, right lower, biopsy: ? 1. ?? Mild chronic conjunctivitis. See comment. Comment: ? Both biopsies show inflammatory processes with the inflammation more pronounced in that from left lower lid. ??In the biopsy from left lower lid there is a granulomatous component to the inflammatory infiltrate. ??The histopathologic features are suggestive of a chalazion. ??The biopsy from right lower lid shows chronic inflammation that is mainly limited to the conjunctival epithelium and superficial subepithelial tissues. ??There is no granuloma formation. ??The changes in this biopsy are non-specific. ??Correlation with clinical history is recommended. (Dr. Gomez) Microscopic Description: ? Sections from left lower lid (A) consist of a small portion of conjunctival epithelium with subepithelial tissues. ??The epithelium is partially denuded. ??The intact epithelium is infiltrated by inflammatory cells including neutrophils that form small clusters. ??The underlying subepithelial tissues are marked by a dense nodular inflammatory infiltrate. ??The infiltrate consists of lymphocytes and plasma cells with focal clusters of neutrophils. ??There is formation of granulomas, some of which are accompanied by multinucleate giant cells. ??In some areas, the stroma is edematous and there is a reactive vascular proliferation imparting a granulation tissue-like appearance to the tissue. ??No fungal or mycobacterial organisms are identified on sections prepared with PAS-D and AFB stains, respectively. ??(Dr. Gomez)/[facility] Document reviewed and electronically signed by: Karen Gomez MD Report ??Date: 11/23/2000 16:42 By the signature above, the attending physician certifies that he/she has personally conducted a gross and/or microscopic examination of the described specimens and rendered or confirmed the above diagnosis. Specimen(s) Received: A. ?Left lower lid lesion B. ?Right lower lid lesion Clinical History: ? Clinical diagnosis code: 238.2 Gross Description: ? Received in formalin labelled Schartner and left lower lid excision is a 0.3 x 0.3 x 0.2 cm biopsy of a figueroa-pink tissue. ??Bisected and entirely submitted as (A). Received in formalin labelled Schartner and right lower lid lesion is a 0.3 x 0.2 x 0.1 cm biopsy of figueroa tissue. ??Bisected and entirely submitted as (B). (Dr. Amaro)/[facility] End of Report [facility] 11/20/2000 11/20/2000 12: 11 EDT Yuliya Crain MD PATHOLOGY ORDERABLES [facility] [address] [place] [address] documented in this encounter Visit Diagnoses Not on filedocumented in this encounter
--- OUTSIDE RECORDS SUMMARY | 2023-10-24 16:02 | XMS_ITS | Encounter Summary ---
Author Organization [facility] Address [address] [place] [address] Care Team Providers Care Licensed Pesticide Applicator Name Role Phone Altaf Hoover MD Primary Care Provider [phone] Reason for Visit * Reason Onset Date Comments Chest Pain 01/24/2019 Encounter Details Date Type Department Care Team (Late st Contact Info) Description 01/24/2019 Telephone [facility] [address] [place] [address] Rosanne Trinidad, RN [address] [place] [address] [address] [place] [address] Chest Pain Social History Tobacco Use Types Packs/Day Years Used Date Smoking Tobacco: Every Day Cigarettes 2 38 Smokeless Tobacco: Never Alcohol Use Standard Drinks/Week Comments Yes 0 (1 standard drink = 0.6 oz pur e alcohol) Sex and Gender Information Value Date Recorded Sex Assigned at Not on file Gender Identity Male 02/16/2019 6:16 EST Sexual Orientation Not on file documented as of this encounter Functional Status Functional Status Response Date of Assess ment Are you deaf or do you have serious difficulty h earing? No 08/25/2017 Are you blind or do you have serious difficulty seeing, even when wearing glasses? No 08/25/2017 Do you have serious difficul ty walking or climbing stairs? (5 years old or older) No 08/25/2017 Do you have difficulty dress ing or bathing? (5 years old or older) No 08/25/2017 Because of a physical, menta l, or emotional condition, do you have difficulty doing errands alone such as visiting a doctor's office or shopping? (15 years old or older) No 08/25/2017 Cognitive Status Response Date of Assessm ent Because of a physical, menta l, or emotional condition, do you have serious difficulty concentrating, remembering, or making decisions? (5 years old or older) No 08/25/2017 documented as of this encounter Ordered Prescriptions Prescription Sig Dispensed Refills Start Date End Da te isosorbide mononitrate (IMDUR) 120 mg CR tablet Take 2 Tabs by mouth daily. 180 Tab 2 01/25/2019 documented in this encounter Miscellaneous Notes * Telephone Encounter - Rosanne Trinidad RN - 01/25/2019 1559 EST Spoke with patient, he agrees to double imdur per . He is instructed to call the office if symptoms do not improve or develops side effects or problems with med increase. Escript sent to [facility] * Telephone Encounter - Rosanne Trinidad RN - 01/24/2019 1707 EST Patient is currently taking Imdur 120mg, what dose should he be taking? * Telephone Encounter - Rosanne Trinidad RN - 01/24/2019 1418 EST Patient called to report that he saw his PCP Monday and they are concerned about his chest pain. Patient has back surgery scheduled but feels at this time it may be canceled. He states his A1C jumpedup to 11.6. He also reported to his PCP that he is having more chest pain. He states it is the samechest pain he has had on and off for months but more recently it is occurring more. It is relived with nitro X 1.He is wondering if he should see you prior to his upcoming appt 02/18/19 documented in this encounter Plan of Treatment Not on file documented as of this encounter Visit Diagnoses Diagnosis NSTEMI (non-ST elevated myocardial infarction) ([facility])- Primary Acute myocardial infarction, subendocardial infarction, episode of care unspecified documented in this encounter Discontinued Medications Medication Sig Discontinue Reason Start Date End Da te metoprolol XL (TOPROL-XL) 25 mg tablet Take 1 Tab by mouth daily. Duplicate order 08/26/2017 01/24/2019 omeprazole (PRILOSEC) 20 mg capsule Take 40 mg by mouth daily. Duplicate order 01/24/2019 isosorbide mononitrate (IMDUR) 120 mg CR tablet 1 tab(s) orally once a day (in the morning) 01/25/2019 documented as of this encounter Historical Medications * This list may reflect changes made after this encounter. Medication Sig Dispensed Refills Start Date End Date metoprolol XL (TOPROL-XL) 25 mg tablet 1 tab(s) orally once a day pantoprazole (PROTONIX) 40 mg tablet 1 tab(s) orally once a day nitroGLYCERIN (NITROSTAT) 0.4 mg SL tablet 1 tab(s) sublingually every 5 minutes albuterol (PROAIR HFA) 90 mcg/actuation inhaler 2 puff(s) inhaled 4 times a day 02/13/2019 isosorbide mononitrate (IMDUR) 120 mg CR tablet 1 tab(s) orally once a day (in the morning) 01/25/2019 added in this encounter Care Teams Licensed Pesticide Applicator Relationship Specialty Start Date End Date Altaf Hoover MD PCP - General 11/12/15 04/12/20 documented as of this encounter
--- OUTSIDE RECORDS SUMMARY | 2023-10-24 16:02 | XMS_ITS | Encounter Summary ---
Author Organization [facility] Address [address] [place] [address] Care Team Providers Care Midwife Name Role Phone Sae Marr MD Primary Care Provider [phone] Encounter Details Date Type Department Care Team (Late st Contact Info) Description 12/19/2022 Lab Requisition [facility] Pathology & Laboratory Medicine - [address] [address] Outr Resulting Lab, Provider Social History Tobacco Use Types Packs/Day Years Used Date Smoking Tobacco: Every Day Cigarettes 2 38 Smokeless Tobacco: Never Alcohol Use Standard Drinks/Week Comments Yes 0 (1 standard drink = 0.6 oz pur e alcohol) Interpersonal Safety Answer Date Record ed Physically Hurt Never 10/13/2019 Verbally Threaten Not on file 10/13/2019 Sex and Gender Information Value Date Recorded Sex Assigned at Not on file Gender Identity Male 02/16/2019 6:16 EST Sexual Orientation Not on file documented as of this encounter Functional Status Functional Status Response Date of Assess ment Are you deaf or do you have serious difficulty h earing? No 08/25/2017 Is this person blind or does he/she have serious difficulty seeing even when wearing glasses? Yes 0 Do you have serious difficul ty walking or climbing stairs? (5 years old or older) No 08/25/2017 Do you have difficulty dress ing or bathing? (5 years old or older) No 08/25/2017 Because of a physical, menta l, or emotional condition, does this person have difficulty doing errands alone such as visiting a doctor's office or shopping? Yes 04/12/2019 Cognitive Status Response Date of Assessm ent Because of a physical, menta l, or emotional condition, does this person have serious difficulty concentrating, remembering, or making decisions? Yes 04/12/2019 documented as of this encounter Plan of Treatment Not on file documented as of this encounter Procedures Procedure Name Priority Date/Time Associated Diagnosis Comments PSA TOTAL, DIAGNOSTIC Routine 12/19/2022 9:58 EDT documented in this encounter Results * PSA TOTAL, DIAGNOSTIC (12/19/2022 9:58 EDT) PSA 1.3 <=3.5 ng/mL 12/20/2022 9:24 EDT [facility] Blood VENOUS BLOOD / Unknown 12/19/2022 9:58 EDT 12/19/2022 21:45 EDT Narrative [facility] - 12/20/2022 9:24 EDT NOTE: Serum PSA concentration should not be interpreted as absolute evidence for the presence or absence of malignant disease. Assayed on Siemens ADVIA Office [employer] XPT using chemiluminescent technology.??Values obtained by using different assay methods cannot be used interchangeably. Provider Outr Resulting Lab CHEMISTRY & BLOOD GAS ORDERABLES [facility] [address] [place] [address] documented in this encounter Visit Diagnoses Not on filedocumented in this encounter Care Teams Midwife Relationship Specialty Start Date End Date Sae Marr MD PCP - General Family Medicine - Primary Care 04/13/20 documented as of this encounter
--- OUTSIDE RECORDS SUMMARY | 2023-10-24 16:02 | XMS_ITS | Encounter Summary ---
Author Organization [facility] Address [address] [place] [address] Care Team Providers Care Shopping Centre Manager Name Role Phone Snehal Maravilla MD Primary Care Provider [phone] Encounter Details Date Type Department Care Team (Late st Contact Info) Description 08/23/2016 Results Only [facility] [phone] Naomie Blum MD [id number] [address] [place], [place] [id number] Social History Tobacco Use Types Packs/Day Years [...] Date/Time Associated Diagnosis Comments SURGICAL PATHOLOGY Routine 08/23/2016 19 :26 EDT documented in this encounter Results * SURGICAL PATHOLOGY (08/23/2016 19:26 EDT) Pathology Report: SURGICAL PATHOLOGY REPORT Reports generated via electronic interface contain original data; however they are lacking the format of the original report. Caution should be taken when reading/interpretin g unformatted reports. Name: ? SAMY PATRICIO ? Accession #: ? [id number] ? : ? 1965 (Age: 50) ??M ? Collect Date: ? 08/23/2016 ? Location: ? [facility] ? Receive Date: ? 08/23/2016 ? Provider: NAOMIE BLUM MD Copy to: SNEHAL MARAVILLA MD ? Final Pathologic Diagnosis: A. STOMACH, ANTRUM, BIOPSY: - Gastric body mucosa with no specific pathologic features. B. GASTROESOPHAGEAL JUNCTION, BIOPSY: - Intestinal metaplasia arising in a background of reflux esophagitis. - Negative for dysplasia. Document reviewed and electronically signed by: ELEN CABALLERO MD Report ??Date: 08/26/2016 10:21 By the signature above, the attending physician certifies that he/she has personally conducted a gross and/or microscopic examination of the described specimens and rendered or confirmed the above diagnosis. Specimen(s) Received: A. ??Antral bx for H. pylori B. ??GE junction bx Clinical History: GERD, hx of Helicobacter pylori infection; hx of Diaz's Gross Description: A. ?Received in formalin labelled with proper patient identification (initials S, P) and antral bx for H. pylori are three pink-figueroa tissues (0.2 x 0.2 x 0.2 cm, 0.2 x 0.2 x 0.2 cm and 0.3 x 0.2 x 0.2 cm). Entirely submitted in A1. B. ?Received in formalin labelled with proper patient identification (initials S, P) and GE junction are three figueroa-white tissues (0.2 x 0.2 x 0.1 cm, 0.3 x 0.2 x 0.1 cm and 0.5 x 0.2 x 0.2 cm). Entirely submitted in B1. ISABELLE Kirkland (ASCP) 08/24/2016 11:08 AM End of Report [facility] 08/23/2016 19:2 6 EDT 08/23/2016 19:26 EDT Naomie Blum MD PATHOLOGY ORDERA SERGIO [facility] [address] [place] [address] documented in this encounter Visit Diagnoses Not on filedocumented in this encounter Care Teams Shopping Centre Manager Relationship Specialty Start Date End Date Snehal Maravilla MD PCP - General 11/12/15 04/12/20 documented as of this encounter
--- OUTSIDE RECORDS SUMMARY | 2023-10-24 16:02 | XMS_ITS | Encounter Summary ---
Author Organization [facility] Address [address] [place] [address] Care Team Providers Care Director Index Name Role Phone Altaf Hoover MD Primary Care Provider [phone] Encounter Details Date Type Department Care Team (Latest Contact Info) Description 04/12/2019 Travel Social History Tobacco Use [...] filedocumented in this encounter Care Teams Director Index Relationship Specialty Start Date End Date Altaf Hoover MD PCP - General 11/12/15 04/12/20 documented as of this encounter
--- OUTSIDE RECORDS SUMMARY | 2023-10-24 16:02 | XMS_ITS | Encounter Summary ---
Author Organization [facility] [place] [address] Care Team Providers Care Flux Mixer Name Role Phone Karen Barbosa MD Primary Care Provider Encounter Details Date Type Department Care Team (Late st Contact Info) Description 05/22/2007 Orders [place] [phone] Chang Chew MD [facility] [place] [address] Social History Tobacco Use Types Packs/Day Years Used Date Smoking Tobacco: Never Assessed [facility] Inpatient Questions Answer Date Recorded Does [...] 10:00 AM EST Office [place] [phone] Tania Gates, [facility] [place] [address] documented as of this encounter Procedures Procedure Name Priority Date/Time Associated Diagnosis Comments SURGICAL PATHOLOGY REPORT Routine 05/22/2007 2:44 PM EDT documented in this encounter Results * Surgical Pathology Report (05/22/2007 2:44 PM EDT) Surgical Pathology Report [id number] ? Location: 4T The signing pathologist has (i) examined the relevant preparation(s) for the specimen(s) and (ii) rendered or confirmed the diagnosis(es). . ?Pathology Surgical Pathology Final Report Clinical Information Specimen Submitted: A - Distal esophagus Clinical History: Hx of Diaz's esophagus, short segment, please grade for dysplasia Clinical Diagnosis: Diaz's surveillance Gross Description Labeled/Fixative: ? Distal esophagus biopsies, formalin. Qty/Size/Weight: ?Four, averaging 0.3 x 0.3 x 0.3 cm. Tissue Description: ?? Soft, figueroa tissues. Sections/Processing: ??(T1) ??aje/SNS Microscopic Description Slides reviewed, microscopic description not recorded. Diagnosis Endoscopic biopsy - Chronic nonspecific cardioesophagitis with focal erosion. ??Negative for specialized metaplasia (Alcian blue stain). CR-0 05/23/07 [facility] 05/24/07 Verified by: ? Sofia Mulligan MD ?Pathologist ?(Electronic Signature) The attending pathologist whose signature appears on this report has reviewed all diagnostic slides and has edited the gross and/or microscopic portion of the report in rendering the final pathologic diagnosis. [facility] MILLENNIUM 05/22/2007 2:44 PM EDT Chang Chew MD PATHOLOGY/CYTOLOGY O SAEID Performing Organization Address City/State/[facility] Co ca Phone Number [facility] documented in this encounter Visit Diagnoses Not on filedocumented in this encounter Care Teams Flux Mixer Relationship Specialty Start Date End Date Karen Barbosa MD [address] [place] [address] PCP - General Family Medicine 10/04/22 documented as of this encounter
--- OUTSIDE RECORDS SUMMARY | 2023-10-24 16:02 | XMS_ITS | Encounter Summary ---
Author Organization [facility] Address [address] [place] [address] Care Team Providers Care Director Learning Name Role Phone Sae Marr MD Primary Care Provider [phone] Encounter Details Date Type Department Care Team (Late st Contact Info) Description 10/28/2021 Lab Requisition [facility] Pathology & Laboratory Medicine - [address] [address] Outr Resulting Lab, Provider Social History Tobacco [...] Procedure Name Priority Date/Time Associated Diagnosis Comments SPEP, INCLUDES QUANTITATION OF MONOCLONAL SPIKE PERFORMABLE Today 10/28/2021 8:20 EDT SPEP, INCLUDES QUANTITATION OF MONOCLONAL SPIKE Routine 10/28/2021 8:20 EDT PROTEIN, TOTAL Today 10/28/2021 8:20 EDT documented in this encounter Results * (ABNORMAL) SPEP, INCLUDES QUANTITATION OF MONOCLONAL SPIKE PERFORMABLE (10/28/2021 8:20 EDT) Albumin % 55.4(L) 55.8 - 66.1 % 10/29/2021 13:54 [facility] Albumin g/dL 3.7 3.6 - 5.2 g/dL 10/29/2021 13:54 [facility] Alpha-1 % 4.6 2.9 - 4.9 % 10/29/2021 13:54 [facility] Alpha-1 g/dL 0.30 0.15 - 0.40 g/dL 10/29/2021 13:54 [facility] Alpha-2 % 13.8(H) 7.1 - 11.8 % 10/29/2021 13:54 [facility] Alpha-2 g/dL 0.90 0.50 - 1.00 g/dL 10/29/2021 13:54 [facility] Beta % 14.7(H) 8.4 - 13.1 % 10/29/2021 13:54 [facility] Beta g/dL 1.00 0.60 - 1.20 g/dL 10/29/2021 13:54 [facility] Gamma % 11.5 11.1 - 18.8 % 10/29/2021 13:54 [facility] Gamma g/dL 0.80 0.60 - 1.60 g/dL 10/29/2021 13:54 EDT [facility] SPEP Comment No apparent monoclonal protein seen on serum electrophoresis 10/29/2021 13:54 EDT [facility] Comment:See scanned/suppleme ntary report. Total Protein 6.6 6.3 - 8.2 g/dL 10/29/2021 13:54 EDT [facility] Blood VENOUS BLOOD / Unknown 10/28/2021 8:20 EDT 10/28/2021 17:19 EDT Provider Outr Resulting Lab CHEMISTRY & BLOOD GAS ORDERABLES Performing Organization Address [facility] de Phone Number [facility] [address] [place] [address] * PROTEIN, TOTAL (10/28/2021 8:20 EDT) Blood VENOUS BLOOD / Unknown 10/28/2021 8:20 EDT 10/28/2021 17:19 EDT Provider Outr Resulting Lab CHEMISTRY & BLOOD GAS ORDERABLES Performing Organization Address [facility] Co de Phone Number [facility] [address] [place] [address] documented in this encounter Visit Diagnoses Not on filedocumented in this encounter Care Teams Director Learning Relationship Specialty Start Date End Date Sae Marr MD PCP - General Family Medicine - Primary Care 04/13/20 documented as of this encounter
--- OUTSIDE RECORDS SUMMARY | 2023-10-24 16:02 | XMS_ITS | Encounter Summary ---
Author Organization [facility] [place] [address] Care Team Providers Care Home Support Worker Name Role Phone Karen Barbosa MD Primary Care Provider Encounter Details Date Type Department Care Team (Late st Contact Info) Description 06/14/2004 Orders [place] [phone] Chang Chew MD [facility] DR [place] [address] Social History Tobacco Use Types Packs/Day Years Used Date Smoking Tobacco: Never Assessed [facility] Inpatient Questions Answer Date Recorded Does Anyone [...] 10:00 AM EST Office [place] [phone] Tania Gates, [facility] [place] [address] documented as of this encounter Procedures Procedure Name Priority Date/Time Associated Diagnosis Comments SURGICAL PATHOLOGY REPORT Routine 06/14/2004 4:14 PM EDT documented in this encounter Results * Surgical Pathology Report (06/14/2004 4:14 PM EDT) Surgical Pathology Report [id number] ? Location: The signing pathologist has (i) examined the relevant preparation(s) for the specimen(s) and (ii) rendered or confirmed the diagnosis(es). . ?Pathology Surgical Pathology Final Report Clinical Information Specimen Submitted: A - Biopsies, Distal esophagus Clinical History: Question short segment Diaz's esophagus. Question any dysplasia; 2 Yr Diaz's Gross Description Labeled/Fixative: ? Biopsies distal esophagus, formalin. Qty/Size/Weight: ?Five, averaging 0.3 cm in diameter. Tissue Description: ?? Crowell-pink soft tissue. Sections/Processing : ??(T1) ??aje/PPS Microscopic Description Slides reviewed, microscopic description not recorded. Diagnosis Distal esophagus, endoscopic biopsies: ?? Gastroesophageal junctional mucosa with features of reflux ??esophagitis and focal specialized intestinal metaplasia; ??negative for dysplasia. CR-0 06/16/04 [facility] 06/16/04 Verified by: ? Ramsey Andre MD, PhD ?Pathologist ?(Electronic Signature) The attending pathologist whose signature appears on this report has reviewed all diagnostic slides and has edited the gross and/or microscopic portion of the report in rendering the final pathologic diagnosis. [facility] 06/14/2004 4:14 PM EDT Chang Chew MD PATHOLOGY/CYTOLOGY O SAEID Performing Organization Address City/State/[facility] Co nd Phone Number [facility] documented in this encounter Visit Diagnoses Not on filedocumented in this encounter Care Teams Home Support Worker Relationship Specialty Start Date End Date Karen Barbosa MD [address] [place] [address] PCP - General Family Medicine 10/04/22 documented as of this encounter
--- OUTSIDE RECORDS SUMMARY | 2023-10-24 16:02 | XMS_ITS | Encounter Summary ---
Author Organization [facility] Address [address] [place] [address] Care Team Providers Care Assembler Knife Name Role Phone Sae Marr MD Primary Care Provider Encounter Details Date Type Department Care Team (Late st Contact Info) Description 05/13/2020 Lab Requisition [facility] Pathology & Laboratory Medicine - [address] [address] Outr Resulting Lab, Provider Social History Tobacco [...] Procedure Name Priority Date/Time Associated Diagnosis Comments CELIAC DISEASE PANEL Routine 05/13/2020 8:20 EST documented in this encounter Results * CELIAC DISEASE PANEL (05/13/2020 8:20 EST) Tissue Transglutaminase Antibody IGA <1.2 <4.0 U/mL 05/18/2020 14:31 EST [facility] Comment: A negative result may be due to IgA deficiency and does not rule out celiac disease. ? Negative: ??<4.0 U/mL ? Weak Positive: ??4.0 - 10.0 U/mL ? Positive: ??>10.0 U/mL Results were obtained with the [employer] QUANTA Lite R h-tTG IgA JAMAL assay on the [employer] DSX. IgA 214 85 - 499 mg/dL 05/18/2020 14:31 EST [facility] Celiac Disease Interpretation Negative Serology. Celiac disease unlikely. Approximately 10% of patients with celiac disease are seronegative. Patients who are already adhering to a gluten-free diet may also be seronegative. If celiac disease is highly clinically suspected, referral to gastroenterology for additional evaluation is recommended. 05/18/2020 14:31 EST [facility] Blood VENOUS BLOOD / Unknown 05/13/2020 8:20 EST 05/13/2020 17:01 EST Provider Outr Resulting Lab IMMUNOLOGY A ND SEROLOGY ORDERABLES [facility] [address] [place] [address] documented in this encounter Visit Diagnoses Not on filedocumented in this encounter Care Teams Assembler Knife Relationship Specialty Start Date End Date Sae Marr MD PCP - General Family Medicine - Primary Care 04/13/20 documented as of this encounter
--- OUTSIDE RECORDS SUMMARY | 2023-10-24 16:02 | XMS_ITS | Encounter Summary ---
Author Organization [facility] Address [address] [place] [address] Care Team Providers Care Director Script Name Role Phone Derrick Melara MD Primary Care Provider [phone] Encounter Details Date Type Department Care Team (Latest Contact Info) Description 11/09/2015 9:23 EDT - 11/09/2015 23:59 EDT Hospital Encounter [address] [address] Unknown, Provider, Discharge Disposition: Home or Self Care Social History Tobacco Use Types Packs/Day Years Used Date Smoking Tobacco: Never Assessed Sex and Gender Information Value Date Recorded Sex Assigned at Not on file Gender Identity Male 02/16/2019 6:16 EST Sexual Orientation Not on file documented as of this encounter Discharge Disposition Disposition Code Departure Means Destination Home or Self Nursing Home documented in this encounter Plan of Treatment Not on file documented as of this encounter Visit Diagnoses Not on filedocumented in this encounter Care Teams Director Script Relationship Specialty Start Date End Date Derrick Melara MD [address] [place] [address] PCP - General 09/26/12 11/11/15 documented as of this encounter
--- OUTSIDE RECORDS SUMMARY | 2023-10-24 16:02 | XMS_ITS | Encounter Summary ---
Author Organization [facility] Address [address] [place] [address] Care Team Providers Care Phosphatic Fertilizer Supervisor Name Role Phone Sae Marr MD Primary Care Provider Encounter Details Date Type Department Care Team (Late st Contact Info) Description 06/22/2022 Lab Requisition [facility] Pathology & Laboratory Medicine - [address] [address] Outr Resulting Lab, Provider Social History Tobacco [...] Procedure Name Priority Date/Time Associated Diagnosis Comments CORTISOL Routine 06/22/2022 8:31 EDT documented in this encounter Results * CORTISOL (06/22/2022 8:31 EDT) Cortisol 10 See Note ug/dL 06/22/2022 17:49 EDT [facility] Comment: NOTE: Reference Ranges (from OCD IFU): Collected Before 10:00 AM: ??4 - 23 ug/dL Collected After 5:00 PM: ?2 - 14 ug/dL The results of this assay can be falsely elevated due to the consumption of Biotin. Blood VENOUS BLOOD / Unknown 06/22/2022 8:31 EDT 06/22/2022 17:03 EDT Provider Outr Resulting Lab CHEMISTRY & BLOOD GAS ORDERABLES [facility] [address] [place] [address] documented in this encounter Visit Diagnoses Not on filedocumented in this encounter Care Teams Phosphatic Fertilizer Supervisor Relationship Specialty Start Date End Date Sae Marr MD PCP - General Family Medicine - Primary Care 04/13/20 documented as of this encounter
--- OUTSIDE RECORDS SUMMARY | 2023-10-24 16:02 | XMS_ITS | Encounter Summary ---
Author Organization [facility] Address [address] [place] [address] Care Team Providers Care Clear Coat Sprayer Name Role Phone Derrick Melara MD Primary Care Provider Encounter Details Date Type Department Care Team (Latest Contact Info) Description 02/18/2014 12:04 EST - 02/18/2014 23:59 EST Hospital Encounter [address] [address] Unknown, Provider, Discharge Disposition: Home or Self Care Social History Tobacco Use Types Packs/Day Years Used Date Smoking Tobacco: Never Assessed Sex and Gender Information Value Date Recorded Sex Assigned at Not on file Gender Identity Male 02/16/2019 6:16 EST Sexual Orientation Not on file documented as of this encounter Discharge Disposition Disposition Code Departure Means Destination Home or Self [facility] documented in this encounter Plan of Treatment Not on file documented as of this encounter Visit Diagnoses Not on filedocumented in this encounter Care Teams Clear Coat Sprayer Relationship Specialty Start Date End Date Derrick Melara MD [address] [place] [address] PCP - General 09/26/12 11/11/15 documented as of this encounter
--- OUTSIDE RECORDS SUMMARY | 2023-10-24 16:02 | XMS_ITS | Referral Summary ---
Author Organization [facility] Address [address] [place] [address] Care Team Providers Care Budget Report Clerk Name Role Phone Sae Marr MD Primary Care Provider [phone] Allergies Active Allergy Reactions Criticality Noted Date Comments Doxycycline GI upset 08/24/2017 Unclassified Drug Nausea And Vomiting 7 Had an allergic reaction to an antibiotic but does not know the name Venlafaxine GI upset 08/24/2017 Medications Medication Sig Dispensed Refills Start Date End Date Status glipiZIDE (GLUCOTROL) 5 mg tablet Take 5 mg by mouth daily. Active aspirin 81 mg EC tablet Take 1 Tab by mouth daily. 90 Tab 3 08/27/2017 Active atorvastatin (LIPITOR) 40 mg tablet Take 1 Tab by mouth daily. 90 Tab 3 08/27/2017 Active nitroGLYCERIN (NITROSTAT) 0.4 mg SL tablet 1 tab(s) sublingually every 5 minutes Active pantoprazole (PROTONIX) 40 mg tablet 1 tab(s) orally once a day Active metoprolol XL (TOPROL-XL) 25 mg tablet 1 tab(s) orally once a day Active isosorbide mononitrate (IMDUR) 120 mg CR tablet Take 2 Tabs by mouth daily. 180 Tab 2 01/25/2019 Active fluticasone-umeclidi n-vilanter (TRELEGY ELLIPTA) 100-62.5-25 mcg 1 puff inhaled once a day Active glipiZIDE (GLUCOTROL) 10 mg tablet Take 10 mg by mouth 2 times daily. 02/12/2019 Active metFORMIN (GLUCOPHAGE-XR) 500 mg ER tablet TAKE FOUR TABLETS BY MOUTH EVERY DAY 04/07/2019 Active VICTOZA 2-CHRIS 0.6 mg/0.1 mL (18 mg/3 mL) injectable pen 03/19/2019 Active BD ULTRA-FINE MINI PEN NEEDLE 03/19/2019 Active lancets 33 gauge misc Lancets MISC USE DIRECTED. Active Active Active Problems Problem Noted Date Diagnosed Date FH: premature coronary heart disease 02/13/2019 Atypical angina ([facility]) 02/13/2019 PUD (peptic ulcer disease) 02/13/2019 H/O heart artery stent 02/13/2019 Smoker 08/25/2017 CARLOTA (obstructive sleep apnea) 08/25/2017 Type 2 diabetes mellitus, wi thout long-term current use of insulin ([facility]) 08/25/2017 Hyperlipidemia 08/25/2017 CAITLYN (acute kidney injury) ([facility]) 08/25/2017 Diaz's esophagus Resolved Problems Problem Noted Date Diagnosed Date Resolved Date NSTEMI (non-ST elevated myoc ardial infarction) ([facility]) 08/25/2017 04/12/2019 Social History Tobacco Use Types Packs/Day Years [...] 6:16 EST Sexual Orientation Not on file Last Filed Vital Signs Vital Sign Reading Time Taken Comments Blood Pressure 130/84 04/12/2019 0847 EST Pulse 82 04/12/2019 0847 EST Temperature 36.2 ??C (97.2 ??F) 08/26/2017 0806 EDT Respiratory Rate 16 08/26/2017 0806 EDT Oxygen Saturation 98% 04/12/2019 0847 EST Inhaled Oxygen Concentration - - Weight 122.5 kg (270 lb) 04/12/2019 0847 EST Height 182.9 cm (6') 04/12/2019 0847 EST Body Mass Index 36.62 04/12/2019 0847 EST Functional Status Functional Status Response Date of [...] concentrating, remembering, or making decisions? Yes 04/12/2019 Plan of Treatment Not on file Procedures Procedure Name Priority Date/Time Associated Diagnosis Comments HEPATITIS C AB W REFLEX TO HCV RNA BY PCR Routine 02/12/2001 16:37 EST from Last 3 Months or Most Recently Relevant to Health Maintenance Results * HEPATITIS C ANTIBODY (02/12/2001 16:37 EST) Hepatitis C Ab Neg [facility] 02/12/2001 16:3 7 EST 02/12/2001 17:35 EST Jp Scherer MD CHEMISTRY & BLOOD GA S ORDERABLES Performing Organization Address City/State/[facility] Co de Phone Number [facility] [address] [place] [address] from Last 3 Months or Most Recently Relevant to Health Maintenance Advance Directives For more information, please contact: [phone] * Full Code (Latest Code Status on File) Date Activated Date Inactivated Comments 08/25/2017 2:36 08/26/2017 15:45 Question Answer Comments Reason for decision includes: Full code consistent with overall plan of care Who participated in the discussion? Not Discusse d Care Teams Budget Report Clerk Relationship Specialty Start Date End Date Sae Marr MD PCP - General Family Medicine - Primary Care 04/13/20
--- OUTSIDE RECORDS SUMMARY | 2023-10-24 16:02 | XMS_ITS | Encounter Summary ---
Author Organization [facility] Address [address] [place] [address] Care Team Providers Care Airfield Engineer Officer Name Role Phone Unavailable Primary Care Provider Unavailabl e Encounter Details Date Type Department Care Team (Latest Contact Info) Description 02/12/2001 12:14 EST Hospital Encounter [facility] - Other [address] [place] [address] Jp Scherer MD Unknown, Provider, Discharge Disposition: Auto Discharge Social History Tobacco Use Types Packs/Day Years [...] Procedure Name Priority Date/Time Associated Diagnosis Comments HEMAGRAM & DIFF Routine 02/12/2001 16:37 EST DMARD PROFILE Routine 02/12/2001 16:37 EST HEPATITIS C AB W REFLEX TO HCV RNA BY PCR Routine 02/12/2001 16:37 EST HEPATITIS B CORE ANTIBODY (TOTAL) Routine 02/12/2001 16:37 EST HEPATITIS B SURFACE ANTIBODY Routine 02/12/2001 16:37 EST HEPATITIS B SURFACE ANTIGEN Routine 02/12/2001 16:37 EST documented in this encounter Results * DMARD PROFILE (02/12/2001 16:37 EST) Total Alkaline Phosphatase 53 38 - 126 U/L [facility] AST 9 8 - 50 U/L [facility] ALT 28 15 - 75 U/L [facility] Albumin 4.1 3.0 - 5.5 g/dl [facility] Creatinine 1.4 0.7 - 1.5 mg/dl [facility] 02/12/2001 16:3 7 EST 02/12/2001 17:35 EST Jp Scherer MD CHEMISTRY & BLOOD GA S ORDERABLES Performing Organization Address [facility] Co de Phone Number [facility] [address] [place] [address] * HEPATITIS C ANTIBODY (02/12/2001 16:37 EST) Hepatitis C Ab Neg [facility] 02/12/2001 16:3 7 EST 02/12/2001 17:35 EST Jp Scherer MD CHEMISTRY & BLOOD GA S ORDERABLES Performing Organization Address [facility] Co de Phone Number [facility] [address] [place] [address] * HEPATITIS B CORE ANTIBODY (02/12/2001 16:37 EST) Hep B Core Ab Neg [facility] 02/12/2001 16:3 7 EST 02/12/2001 17:35 EST Jp Scherer MD CHEMISTRY & BLOOD GA S ORDERABLES Performing Organization Address [facility] Co de Phone Number [facility] [address] [place] [address] * HEPATITIS B SURFACE ANTIGEN (02/12/2001 16:37 EST) Hepatitis B Surface Ag Neg [facility] 02/12/2001 16:3 7 EST 02/12/2001 17:35 EST Jp Scherer MD CHEMISTRY & BLOOD GA S ORDERABLES Performing Organization Address City/[facility]/ZIP Co de Phone Number [facility] [address] [place] [address] * HEPATITIS B SURFACE ANTIBODY (02/12/2001 16:37 EST) Hepatitis B Surface Ab Neg [facility] 02/12/2001 16:3 7 EST 02/12/2001 17:35 EST Jp Scherer MD CHEMISTRY & BLOOD GA S ORDERABLES Performing Organization Address City/[facility] Co de Phone Number [facility] [address] [place] [address] * (ABNORMAL) HEMAGRAM & DIFF (02/12/2001 16:37 EST) WBC 13.43(H) 4.0 - 10.4 K/cmm [facility] RBC 5.58 4.36 - 5.78 M/cmm [facility] Hemoglobin 17.1 13.8 - 17.3 gm/dl [facility] HCT 49.7 39.5 - 50.2 % [facility] MCV 89 81 - 95 fl [facility] MCH 30.7 27.6 - 33.0 pg [facility] MCHC 34.5 32.8 - 36.4 gm/dl [facility] PLT 254 141 - 320 K/cmm [facility] RDW-CV 13.4 11.8 - 14.1 % [facility] Neutrophils 82(H) 45.5 - 79.7 % [facility] Lymphocytes 6(L) 15.0 - 46.8 % [facility] % Atyp Lymphs 9 % [facility] Monocytes 3 1.8 - 12.0 % [facility] ABS Neutrophils 11.01(H) 2.20 - 8.85 K/cmm [facility] ABS Lymphs 0.81(L) 1.09 - 3.30 K/cmm [facility] ABS Atyp Lymphs 1.21 K/cmm [facility] ABS Monocytes 0.40 0.1 - 0.8 K/cmm [facility] RBC Morphology Normal [facility] Type of Diff: Manual [facility] 02/12/2001 16:3 7 EST 02/12/2001 17:35 EST Jp Scherer MD HISTORICAL LAB FOR S Q LOAD [facility] [address] [place] [address] documented in this encounter Visit Diagnoses Not on filedocumented in this encounter
--- OUTSIDE RECORDS SUMMARY | 2023-10-24 16:02 | XMS_ITS | Encounter Summary ---
Author Organization [facility] Address [address] [place] [address] Care Team Providers Care Wood Grainer Name Role Phone Unavailable Primary Care Provider Unavailabl e Encounter Details Date Type Department Care Team (Latest Contact Info) Description 11/16/2000 19:[address] [facility] [address] [place] [address] Justin Poon MD [address] [id number] Discharge Disposition: Auto Discharge Social History Tobacco [...] Procedure Name Priority Date/Time Associated Diagnosis Comments MR HEAD W/WO CONTRAST Routine 11/16/2000 21:45 EDT documented in this encounter Results * MR HEAD W/WO CONTRAST (11/16/2000 21:45 EDT) Anatomical Region Laterality Modality Other 11/16/2000 21:4 5 EDT Narrative 01/30/2009 2:45 EST TRANSIENT VISUAL LOSS,VISULA FIELD DEFECT R/O DEMYELINATING PROCESS VS MASS MRI OF THE BRAIN WITH AND WITHOUT CONTRAST 11/16/2000 21:45 CLINICAL INFORMATION: Transient visual loss and visual field defect. Rule out demyelinating process. TECHNICAL FACTORS: Multi-planar T1 and T2 weighted fast-spin echo, gradient-echo, and echo-planar diffusion-weighted images before and after contrast administration. FINDINGS: 1. The fast FLAIR sequence is normal. 2. Normal basilar flow-voids, 7th and 8th nerve complex, 5th nerves bilaterally and midline structures with brain including craniocervical junction and the visualized upper cervical spine. 3. Following contrast, no abnormal enhancement is identified. OVERALL IMPRESSION: Normal MRI of the brain with and without contrast. /[facility] Procedure Note Luc Sears MD - 01/30/2009 TRANSIENT VISUAL LOSS,VISULA FIELD DEFECT R/O DEMYELINATING PROCESS VS MASS MRI OF THE BRAIN WITH AND WITHOUT CONTRAST 11/16/2000 21:45 CLINICAL INFORMATION: Transient visual loss and visual field defect. Rule out demyelinating process. TECHNICAL FACTORS: Multi-planar T1 and T2 weighted fast-spin echo, gradient-echo, and echo-planar diffusion-weighted images before and after contrast administration. FINDINGS: 1. The fast FLAIR sequence is normal. 2. Normal basilar flow-voids, 7th and 8th nerve complex, 5th nerves bilaterally and midline structures with brain including craniocervical junction and the visualized upper cervical spine. 3. Following contrast, no abnormal enhancement is identified. OVERALL IMPRESSION: Normal MRI of the brain with and without contrast. /[facility] Justin Poon MD IMG MRI ORDERABLES documented in this encounter Visit Diagnoses Not on filedocumented in this encounter
--- OUTSIDE RECORDS SUMMARY | 2023-10-24 16:02 | XMS_ITS | Clinical Summary ---
Author Organization [facility] Address [address] [place] [address] Care Team Providers Care Residential Air Sealing Technician Name Role Phone Sae Marr MD Primary Care Provider Allergies Active Allergy [...] premature coronary heart disease 02/13/2019 Atypical angina ([facility]) 02/13/2019 PUD (peptic ulcer disease) 02/13/2019 H/O heart artery stent 02/13/2019 Smoker 08/25/2017 CARLOTA (obstructive sleep apnea) 08/25/2017 Type 2 diabetes mellitus, wi thout long-term current use of insulin ([facility]) 08/25/2017 Hyperlipidemia 08/25/2017 CAITLYN (acute kidney injury) ([facility]) 08/25/2017 Diaz's esophagus Resolved Problems Problem Noted Date Diagnosed Date Resolved Date NSTEMI (non-ST elevated myoc ardial infarction) ([facility]) 08/25/2017 04/12/2019 Surgical History Surgery Date Site/Laterality Comments CORONARY ANGIOPLASTY WITH STENT PLACEMENT 08/11/2017 - 09/09/2017 N/A LM MLI's. LAD MLI's. LCX 80%. RCA 90%. RCA and LCX EDEN. Medical History Medical History Date Comments COPD (chronic obstructive pulmonary disease) ([facility]) Diaz's esophagus NSTEMI (non-ST elevated myocardial infarction) ( [facility]) 08/25/2017 Hyperlipidemia 08/25/2017 Type 2 diabetes mellitus, wi out long-term current use of insulin ([facility]) 08/25/2017 PUD (peptic ulcer disease) 02/13/2019 Family History Medical History Relation Comments Heart Attack Brother Heart Attack Father Heart Attack Mother Relation Status Comments Brother Father Mother Social [...] 6:16 EST Sexual Orientation Not on file Obstetrics History Last Filed Vital Signs Vital Sign Reading [...] Body Mass Index 36.62 04/12/2019 0847 EST Plan of Treatment Health Maintenance Due Date Last Done Comments Pneumococcal Immunization (1 of 2 - PCV) 1972 Hepatitis B Vaccine (1 of 3 - 19+ 3-dose series) 12/07 COVID-19 Vaccine (2022-24 season) 2022 Hepatitis C Screen Completed 02/12/2001 Procedures Procedure Name Priority Date/Time Associated Diagnosis [...] MD CHEMISTRY & BLOOD GA S ORDERABLES [facility] [address] [place] [address] from Last 3 Months or Most Recently Relevant to Health Maintenance Advance Directives For more information, please contact: [phone] * Full Code (Latest Code Status on File) Date Activated Date Inactivated Comments 08/25/2017 2:36 08/26/2017 15:45 Question Answer Comments Reason for decision includes: Full code consistent with overall plan of care Who participated in the discussion? Not Discusse d Care Teams Residential Air Sealing Technician Relationship Specialty Start Date End Date Sae Marr MD PCP - General Family Medicine - Primary Care 04/13/20
--- OUTSIDE RECORDS SUMMARY | 2023-10-24 16:02 | XMS_ITS | Encounter Summary ---
Author Organization [facility] [place] [address] Care Team Providers Care Diet Technician Registered Name Role Phone Karen Barbosa MD Primary Care Provider Encounter Details Date Type Department Care Team (Late st Contact Info) Description 09/14/2005 Orders [place] [id number] Chang Chew MD [facility] [place] [address] Social History Tobacco Use Types Packs/Day Years Used Date Smoking Tobacco: Never Assessed [facility] Inpatient Questions Answer Date Recorded Does [...] 10:00 AM EST Office [place] [id number] Tania Gates, [facility] [place] [address] documented as of this encounter Procedures Procedure Name Priority Date/Time Associated Diagnosis Comments SURGICAL PATHOLOGY REPORT Routine 09/14/2005 12:41 PM EDT documented in this encounter Results * Surgical Pathology Report (09/14/2005 12:41 PM EDT) Surgical Pathology Report ? Location: The signing pathologist has (i) examined the relevant preparation(s) for the specimen(s) and (ii) rendered or confirmed the diagnosis(es). . ?Pathology Surgical Pathology Final Report Clinical Information Specimen Submitted: A - Biopsies; antrum. B - Biopsies; distal esophagus. Clinical History: History of Diaz's esophagus, question dysplasia also, multiple shallow antral erosions. Clinical Diagnosis: F/i Diaz's; worsening non-cardiac chest pain. Gross Description A - Labeled/Fixativ e: Antrum biopsies, formalin. Qty/Size/Weight : ?Three, averaging 0.4 x 0.3 x 0.2 cm. Tissue Description: ?? Soft, figueroa tissues. Sections/Proces sing: ??(T1) B - Labeled/Fixativ e: Distal esophagus, formalin. Qty/Size/Weight : ?Four, averaging 0.3 x 0.3 x 0.3 cm. Tissue Description: ?? Soft, figueroa tissues. Sections/Proces sing: ??(T1) ??aje/SNS Microscopic Description Slides reviewed, microscopic description not recorded. Diagnosis Endoscopic biopsies - A. ??Antral and fundic mucosa with chronic active gastritis. Negative for H. pylori (Thiazine stain) B. ??Gastroesophag eal junctional mucosa with chronic active inflammation. Negative for H. pylori (Thiazine stain). No specialized Diaz's metaplasia or dysplasia seen. CR-0 09/15/05 PAS 09/15/05 Verified by: ? Juanita Coreas ?Dermatopathol ogist ?(Electronic Signature) The attending pathologist whose signature appears on this report has reviewed all diagnostic slides and has edited the gross and/or microscopic portion of the report in rendering the final pathologic diagnosis. NAYELI CHOWDHURY 09/14/2005 12:4 1 PM EDT Chang Chew MD PATHOLOGY/CYTOLOGY O RDERASERGIO Performing Organization Address City/State/[facility] Co pr Phone Number NAYELI CHOWDHURY documented in this encounter Visit Diagnoses Not on filedocumented in this encounter Care Teams Diet Technician Registered Relationship Specialty Start Date End Date Karen Barbosa MD [address] [place], [place] [address] [place] [address] PCP - General Family Medicine 10/04/22 documented as of this encounter
--- OUTSIDE RECORDS SUMMARY | 2023-10-24 16:02 | XMS_ITS | Encounter Summary ---
Author Organization [facility] Address [address] [place] [address] Care Team Providers Care Forming Tube Selector Name Role Phone Derrick Melara MD Primary Care Provider [phone] Encounter Details Date Type Department Care Team (Late st Contact Info) Description 11/09/2015 Results Only [facility] [phone] Naomie Blum MD [address] [place], [place] [id number] Social History Tobacco Use Types Packs/Day Years [...] Date/Time Associated Diagnosis Comments SURGICAL PATHOLOGY Routine 11/09/2015 19 :37 EDT documented in this encounter Results * SURGICAL PATHOLOGY (11/09/2015 19:37 EDT) Pathology Report: SURGICAL PATHOLOGY REPORT Reports generated via electronic interface contain original data; however they are lacking the format of the original report. Caution should be taken when reading/interpreting unformatted reports. Name: ? SAMY PATRICIO ? Accession #: ? [id number] ? : ? 1965 (Age: 49) ??M ? Collect Date: ? 11/09/2015 ? Location: ? [facility] ? Receive Date: ? 11/09/2015 ? Provider: NAOMIE BLUM MD Copy to: SNEHAL MARAVILLA MD ? Final Pathologic Diagnosis: A. SMALL BOWEL, DUODENUM, BIOPSY: - ??Duodenal mucosa with peptic duodenitis B. GASTROESOPHAGEAL JUNCTION, BIOPSY: - ??Squamous and adjoining cardia type mucosa with features of reflux esophagitis. - ??No intestinal metaplasia or dysplasia identified. Comment: Part B: Deeper sections examined. Non-specific staining is not definite for unequivocal Helicobacter pylori (immunostaining). This slide was also reviewed at the intradepartmental GI consensus who concurs with the impression; Clinical correlation is recommended. ANTIBODY(CLONE)(BLOC K):RESULT H PYLORI (Rabbit Monoclonal (SP48), Tennyson) (B1): Negative for definitive microorganisms NOTE: ??One or more of the reagents used in immunoperoxidase testing in this case may not have been cleared or approved by the U.S. Food and Drug Administration (FDA). ??The FDA has determined that such clearance or approval is not necessary. ??These tests are used for clinical purposes. ??They should not be regarded as investigational or for research. ??These reagents' performance characteristics have been determined by [facility]. ??The positive and negative controls worked appropriately. This laboratory is certified under the Clinical Laboratory Improvement Amendments of 1988 [...] confirmed the above diagnosis. Specimen(s) Received: A. ??Duodenum bx B. ??GE junction Clinical History: Abdominal pain; hx of Diaz's Gross Description: A. ?Received in formalin labelled with proper patient identification (initials S, P) and duodenum bx is a single pink-figueroa tissue fragment (0.6 x 0.4 x 0.3 cm). Submitted intact in block A1. B. ?Received in formalin labelled with proper patient identification (initials S, P) and GE junction are three white to pink-figueroa tissues (0.4 x 0.3 x 0.1 cm to 0.4 x 0.3 x 0.3 cm). Entirely submitted in block B1. ISABELLE Bates (ASCP) 11/10/2015 8:56 AM End of Report [facility] 11/09/2015 19:3 7 EDT 11/09/2015 19:37 EDT Naomie Blum MD PATHOLOGY ORDERA [facility] Organization Address City/State/ZIP Co de Phone Number [facility] [address] [place] [address] documented in this encounter Visit Diagnoses Not on filedocumented in this encounter Care Teams Forming Tube Selector Relationship Specialty Start Date End Date Derrick Melara MD [address] [place] [address] PCP - General 09/26/12 11/11/15 documented as of this encounter
--- OUTSIDE RECORDS SUMMARY | 2023-10-24 16:02 | XMS_ITS | Encounter Summary ---
Author Organization [facility] Address [address] [place] [address] Care Team Providers Care Elevator Conductor Name Role Phone Sae Marr MD Primary Care Provider Encounter Details Date Type Department Care Team (Late st Contact Info) Description 07/03/2020 Lab Requisition [facility] Pathology & Laboratory Medicine - [address] [address] Outr Resulting Lab, Provider Social History Tobacco [...] Associated Diagnosis Comments PSA TOTAL, DIAGNOSTIC Routine 07/03/2020 7:56 EDT documented in this encounter Results * PSA TOTAL, DIAGNOSTIC (07/03/2020 7:56 EDT) PSA 0.4 0.0 - 3.5 ng/mL 07/03/2020 17:17 EDT [facility] Blood VENOUS BLOOD / Unknown 07/03/2020 7:56 EDT 07/03/2020 16:15 EDT Narrative [facility] - 07/03/2020 17:17 EDT NOTE: Serum PSA concentration should not be interpreted as absolute evidence for the presence or absence of malignant disease. Assayed on Siemens ADVIA Symtextaur XPT using chemiluminescent technology.??Values obtained by using different assay methods cannot be used interchangeably. Provider Outr Resulting Lab CHEMISTRY & BLOOD GAS ORDERABLES [facility] [address] [place] [id number] documented in this encounter Visit Diagnoses Not on filedocumented in this encounter Care Teams Elevator Conductor Relationship Specialty Start Date End Date Sae Marr MD PCP - General Family Medicine - Primary Care 04/13/20 documented as of this encounter
--- OUTSIDE RECORDS SUMMARY | 2023-10-24 16:02 | XMS_ITS | Encounter Summary ---
Author Organization [facility] Address [address] [place] [id number] Care Team Providers Care Passenger Agent Name Role Phone Altaf Hoover MD Primary Care Provider [phone] Reason for Referral * Consult (Routine) - New Request Specialty Diagnoses / Procedures Referred By Contadrian t Referred To Contact Diagnoses NSTEMI (non-ST elevated myocardial infarction) ([facility]) Timothy Medel PA-C [address] [place] [phone] Jg Stubbs MD [address] [place] [phone] Referral ID Status Reason Start Date Expiration Date Visits Requested Visits Authorized [id number] New Request Specialty Services Required 08/25/2017 1 1 Question Answer Reason for Request: cad Expected Discharge Date (Inpatient Only): 08/26/2017 Practice Site (External Referral Only): [facility] * Consult (Routine) - Closed Specialty Diagnoses / Procedures Referred By Contac t Referred To Contact Diagnoses NSTEMI (non-ST elevated myocardial infarction) ([facility]) Timothy Medel PA-C [address] [place] [phone] Referral ID Status Reason Start Date Expiration Date V isits Requested Visits Authorized [id number] Closed Specialty Services Required 08/25/2017 1 1 Question Answer Reason for Request: cad Expected Discharge Date (Inpatient Only): 08/26/2017 Practice Site (External Referral Only): [facility] * Follow Up (Routine) - New Request Specialty Diagnoses / Procedures Referred By Contac t Referred To Contact Diagnoses NSTEMI (non-ST elevated myocardial infarction) ([facility]) Timothy Medel PA-C [address] [phone] Referral ID Status Reason Start Date Expiration Date Visits Requested Visits Authorized [id number] New Request Continuity of Care 08/25/2017 1 1 Question Answer Reason for Request: cad Expected Discharge Date (Inpatient Only): 08/26/2017 Reason for Visit * Reason Comments Chest Pain pt presents from [facility] for NSTEMI. pt CP began at 1400. 1st trop .03, 2nd trop .98. CXR neg. a nitro drip was initiated at 15 mcg/min. heparin drip started at 7104-2980 units/hr with a 4000 unit bolus. pt recieved 4 mg zofran as well. OA pt appears in NAD, VSS, pain is 1/10 described as mostly pressure. Encounter Details Date Type Department Care Team (Late st Contact Info) Description 08/25/2017 1:14 EDT - 08/26/2017 13:38 EDT Hospital Encounter [facility] Cardiac/Telemetry Unit [address] [place] [address] Bella Solomon MD [address] [phone] Kerri Stein MD MPH [address] [phone] Chang Garduno MD [address] [facility], Level [address] [place] [address] NSTEMI (non-ST elevated myocardial infarction) ([facility]) (Primary Dx) Discharge Disposition: Home or Self Care Social [...] No 08/25/2017 documented as of this encounter Discharge Diagnoses Diagnosis I21.4 Non-ST elevation (NSTEMI) myocardial infarction-I21.4[ICD-10-CM] N17.9 Acute kidney failure, unspecified-N17.9[ICD-10-CM] I25.10 Atherosclerotic heart disease of [place] coronary artery without angina pectoris-I25.10[ICD-10-CM] F17.210 Nicotine dependence, cigarettes, uncomplicated-F17.210[ICD-10-CM] G47.33 Obstructive sleep apnea (adult) (pediatric)-G47.33[ICD-10-CM] E78.5 Hyperlipidemia, unspecified-E78.5[ICD-10-CM] E11.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-E11.22[ICD-10-CM] N18.9 Chronic kidney disease, unspecified-N18.9[ICD-10-CM] Z82.49 Family history of ischemic heart disease and other diseases of the circulatory system-Z82.49[ICD-10-CM] Z79.84 penitentiary (current) use of oral hypoglycemic drugs-Z79.84[ICD-10-CM] documented in this encounter Discharge Summaries * Violet Moreno DO - 08/26/2017 1338 EDT Cardiology Discharge Summary Primary Care Provider: Altaf Hoover Attending Physician: JP MOODY MD Admit Date: 08/25/2017 Discharge Date: 08/26/2017 Disposition: Home or self care Problems and Procedures Admitting Diagnosis: NSTEMI (non-ST elevated myocardial infarction) ([facility]) Final Hospital Diagnosis: NSTEMI, type I Additional Problems Managed in the Hospital Active Hospital Problems Diagnosis Date Noted ??? *NSTEMI (non-ST elevated myocardial infarction) ([facility]) 08/25/2017 ??? Tobacco abuse 08/25/2017 ??? CARLOTA (obstructive sleep apnea) 08/25/2017 ??? Type 2 diabetes mellitus, without long-term current use of insulin ([facility]) 08/25/2017 ??? Hyperlipidemia 08/25/2017 ??? CAITLYN (acute kidney injury) ([facility]) 08/25/2017 Resolved Hospital Problems Diagnosis Date Noted Date Resolved No resolved problems to display. Principal Procedure: [facility] (08/25/2017) Left main: Free of angiographically [...] for DMI, CKD, CARLOTA (non- compliant with BiPAP),tobacco abuse (current 2 PPD with >80 pack/yr hx) and strong family history of MS (brother 40's,mother 50's, father 60's) with no personal prior cardiac history who was transferred from [facility]. ?? At [facility] he was noted to be hemodynamically stable. An EKG was done which showed TW flattening in III, aVF without significant ST changes. Pain was relieved temporarily with SL NTG x1. He was loaded with ASA, plavix, given metoprolol, and started on heparin gtt with bolus. At [facility], pain continued requiring nitro gtt and dilaudid. He was taken for C with findings as above. TTE showed LVEF of 55-60% with hypokinetic lateral wall (full report below). His [...] aspart required on 08/25. Urine protein/cr ratio at 0.04. Started on lisinopril as above. ?? CARLOTA: [...] BiPAP compliance - Improved glycemic control. Given MS, consider starting insulin - PCP and cardiology [...] 08/24/2017 Discharge Follow Up Appointments Scheduled with [facility] Appointments Outside of [facility] We Will Schedule Follow-up appointments and procedures Amb Consult/Follow Up Cardiac Rehabilitation Reason for Request: cad Expected Discharge Date (Inpatient Only): 08/26/2017 Practice Site (External Referral Only): [facility] Authorizing Provider: Timothy Medel PA Amb Consult/Follow Up Cardiology Reason for Request: cad Expected Discharge Date (Inpatient Only): 08/26/2017 Practice Site (External Referral Only): [facility] Authorizing Provider: Timothy Medel PA Amb Consult/Follow Up Primary Care Physician Reason for Request: cad Expected Discharge Date (Inpatient Only): 08/26/2017 Authorizing Provider: Timothy Medel PA Heather Wright, DO Internal Medicine PGY-3, #[id number] 08/26/17 21:23 documented in this encounter Medications at Time of Discharge Medication Sig Dispensed Refills Start Date End Date aspirin 81 mg EC tablet Take 1 Tab by mouth daily. 90 Tab 3 08/27/2017 atorvastatin (LIPITOR) 40 mg tablet Take 1 Tab by mouth daily. 90 Tab 3 08/27/2017 glipiZIDE (GLUCOTROL) 5 mg tablet Take 5 mg by mouth daily. clopidogrel (PLAVIX) 75 mg tablet Take 1 Tab by mouth daily. 90 Tab 3 08/27/2017 02/13/2019 lisinopril (PRINIVIL, ZESTRIL) 5 mg tablet Take 1 Tab by mouth daily. 90 Tab 3 08/27/2017 02/13/2019 metFORMIN (GLUCOPHAGE) 500 mg tablet Take 1,000 mg by mouth daily. 04/12/2019 metoprolol XL (TOPROL-XL) 25 mg tablet Take 1 Tab by mouth daily. 90 Tab 3 08/26/2017 01/24/2019 nicotine (NICODERM CQ) 14 mg/[address] 1 Patch onto the skin daily. 10 Each 2 08/26/2017 02/13/2019 omeprazole (PRILOSEC) 20 mg capsule Take 40 mg by mouth daily. 01/24/2019 documented as of this encounter Ordered Prescriptions Prescription Sig Dispensed Refills Start Date End Da te atorvastatin (LIPITOR) 40 mg tablet Take 1 Tab by mouth daily. 90 Tab 3 08/27/2017 aspirin 81 mg EC tablet Take 1 Tab by mouth daily. 90 Tab 3 08/27/2017 clopidogrel (PLAVIX) 75 mg tablet Take 1 Tab by mouth daily. 90 Tab 3 08/27/2017 02/13/2019 metoprolol XL (TOPROL-XL) 25 mg tablet Take 1 Tab by mouth daily. 90 Tab 3 08/26/2017 01/24/2019 lisinopril (PRINIVIL, ZESTRIL) 5 mg tablet Take 1 Tab by mouth daily. 90 Tab 3 08/27/2017 02/13/2019 ticagrelor (BRILINTA) 90 mg tablet Take 1 Tab by mouth 2 times daily. 60 Tab 08/26/2017 08/26/2017 aspirin 81 mg EC tablet Take 1 Tab by mouth daily. 30 Tab 08/27/2017 08/26/2017 nicotine (NICODERM CQ) 14 mg/[address] 1 Patch onto the skin daily. 10 Each 2 08/26/2017 02/13/2019 metoprolol XL (TOPROL-XL) 25 mg tablet Take 1 Tab by mouth daily. 90 Tab 3 08/26/2017 08/26/2017 lisinopril (PRINIVIL, ZESTRIL) 2.5 mg tablet Take 1 Tab by mouth daily. 30 Tab 08/26/2017 08/26/2017 atorvastatin (LIPITOR) 40 mg tablet Take 1 Tab by mouth daily. 30 Tab 08/26/2017 08/26/2017 ticagrelor (BRILINTA) 90 mg tablet Take 1 Tab by mouth 2 times daily. 90 Tab 7 08/25/2017 08/26/2017 documented in this encounter Discharge Disposition Disposition Code Departure Means Destination Home or Self Care documented in this encounter Progress Notes * Timothy Medel PA - 08/25/2017 1633 EDT Ticagrelor 90mg daily without interruption x 1 year and Aspirin 81 mg daily lifetime reviewed with patient and the patient verbalizes understanding. Cardiac rehab reviewed with patient and the patient is willing to attend. Referral sent and written material given to patient. Follow up has been requested with [facility] at [facility]. * Adan Sadler MD - 08/25/2017 1516 EDT Brief Cardiology Progress Note CC: Chest Pain ID: Samy is a 51 yo male with DMI, CKD, CARLOTA (non-compliant with BiPAP), tobacco abuse (current 2 PPD with >80 pack/yr hx), and strong family history of MS (brother 40's, mother 50's, father 60's) withno personal prior who was transferred from [facility] for NSTEMI type I. Noted to be HD stable at [facility]. EKG showed TW flattening in III, aVF without significant ST changes. Pain was relieved temporarily with SL NTG x1. He was loaded with ASA, plavix, given metoprolol, and started on heparin gtt with bolus. At [facility], pain continued requiring nitro gtt and dilaudid. [...] resolved. Denies associated SOB, dizziness, N/V. States he tolerated his meal following PCI and denies any [...] Not been using BiPAP - BiPAP qhs * Shanique Austin, RT - 08/25/2017 0252 EDT Respiratory Consult/Progress [...] on room air. Has a hx of COPDand smokes 2ppd. Has no home respiratory meds. A spacer was given for MDI use while in the hospitalif needed. Pt also received an inhaler teach with that so MDI's can be switched over to nursing if ordered. RT Cassie 08/25/17 * Erika Roland MD - 08/25/2017 0131 EDT Hose Stripper Addendum (please see sports internship/resident H&P for full details) 51yo M with DM2, HLD, CKD, current 2 ppd smoker (>80 pack-year history), strong family history of MS (brother in 40s, mother in 50s, father 60s) but no personal prior cardiac history who was transferred from [facility] for NSTEMI. Few nights ago chest pressure woke him from sleep but no further episodes with exertion or at rest until today at 2PM he developed central chest pressure with SOB and diaphoresis. On arrival to [facility] ED SL NTG x1 relieved pain completely initially. He was given ASA 324mg, and after troponin returned 0.98 he was given plavix 600mg, heparin bolus and gtt, 25mg metoprolol. CXR normal. Chest pain returned at about 6:30PM and was lessened but not relieved completely with nitropaste. When pain returned he was put on nitro gtt and this improved his pain, it was almost resolved enroute but after disconnecting the nitro gtt in the ED and awaiting for new order his chest pain recurred. ECGs there showed sinus rhythm TW flattening III, aVF but no significant ST changes. On arrival to [facility], afebrile, HR 60-70s, BP 110-120s/80s, 99% on RA. ECG sinus rhythm no ischemic findings. Trop 7.39, Cr 1.03, Hgb 13.8, plt 234, INR 1. Still having 2-3/10 chest pressure but only ss30zmo/min nitro gtt. Increased gtt to 75mcg/min with resolution of chest pain, dilaudid 1mg prn which worked better for him than morphine. No bleeding history recently (had issues with PUD but not in years). No issues with contrast dye orsedation. On exam, well appearing in no distress. Normal rate, reg rhythm, no m/r/g. Chest CTAB. 2+ radial and DP pulses bilaterally. A/P: # NSTEMI. - DAPT, heparin, NPO for LHC in the morning; waiting until AM given pain now controlled on anti-anginals. If recurs despite this will need more urgent LHC - nitro gtt, metoprolol, and either IV morphine or dilaudid for pain - trend trop to peak - formal TTE in morning Erika Roland, PGY-4 Hose Stripper Pager #[phone] documented in this encounter H&P Notes * Nathaniel Greene MD - 08/25/2017 0250 EDT Date of Service: 08/25/2017 Admit Date : 08/25/2017 Subjective: Chief Complaint: Chest pain Mr Patricio is a 51 yo with a history significant for DMII, HLD, tobacco use (80 pack year history), and fhx of early onset CAD who presents as an ED to ED transfer from [facility] after initially presenting there earlier in the day with acute onset chest pain. Patient had been in his usual state of health until the evening of the when he developed acuteonset, substernal chest pressure while at rest. The pain was self-limiting and patient attributed it to GERD. 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 This time it was accompanied by diaphoresis, mild nausea, and someshortness of breath. He does not associate the pain with exertion. He denies lightheadedness and palpitations. He has not noticed any increased swelling in his lower extremities. He has not been ableto lay flat on his back for years, which he attributes to CARLOTA (failed trial of BiPAP in past but open to retrying now). The chest pain has remained constant but fluctuates in intensity after receiving nitroglycerin and opioids. At [facility] ED initial workup was notable for creatinine of 1.4, otherwise normal BMP, normal CBC, andtroponin elevated to 0.03. Repeat troponin increased to 0.9. EKG showed normal sinus rhythm withoutischemic changes. He was loaded with aspirin and Plavix and started on a heparin drip. Chest pain improved some, but not completely, with sublingual nitroglycerin so he was subsequently started on nitro drip. He was then transferred to [facility] ED for further evaluation. Workup here is notable for troponin of 7.4, an improvement of creatinine to 1.0. Otherwise BMP, calcium, magnesium, CBC, and INR are unremarkable. Repeat EKG is unchanged. Family history: Remarkable for early onset CAD in father and brother Social history: 70-zsmq-ymzk history, drinks a few pints of white Russians on Monday and Monday night Patient Active Problem List Diagnosis Date Noted ??? NSTEMI (non-ST elevated myocardial infarction) ([facility]) 08/25/2017 Priority: Medium Past Medical History: Diagnosis Date ??? Diaz's esophagus ??? COPD (chronic obstructive pulmonary disease) ([facility]) History reviewed. No pertinent surgical history. [...] - Start metoprolol 12.5mg BID - Continue PHARMACOEPIDEMIOLOGIST lipitor 40mg daily - Formal echo pending - Dilaudid 0.5mg IV q4hr prn Acute Kidney Injury: Cr at OSH 1.3, now 1.0. - ARBEN protocol - Daily electrolytes/Cr DMII: Hold PHARMACOEPIDEMIOLOGIST oral meds - SSI - NPO for [...] attestation - Xavier Deluca MD - 08/25/2017 7344 EDT Attending Attestation: I have personally seen and examined Samy Patricio, discussed the patient's management with the team, and agree with the findings and plan as outlined by Dr. Greene. Xavier Deluca MD documented in this encounter Procedure Notes * Vamshi Lawson Jr., MD - 08/25/2017 7433 EDT Cardiovascular Catheterization Laboratory Preliminary Report -- Catheterization Date of Service/Procedure: 08/25/2017 Attending Physician: Vamshi Lawson MD Fellow: Hilario Coffman MD Pre-Procedure Diagnosis /NCDR Indication: Samy Patricio is a 51 y.o. year old male with ACS <= 24 hrs. Chest Pain Symptom Assessment: Typical Angina NCDR Indication for PCI: NSTE - ACS Heart Failure: No CHSA Clinical Frailty Scale: 1: Very Fit Prior Stress Testing? No Anesthesia: A moderate level of anesthesia/conscious sedation was used in addition to local anesthesia. Access: Right radial artery Procedure: He was brought to [facility] Cardiac Catheterization Laboratory for the procedure: [...] With the patients consent, all family members and patient support persons who were present at the conclusion of the procedure have been notified ofthese results and treatment plans as well. Post Interventional Conclusion/Physician Disposition: (check one main category) Inpatient procedure, continue inpatient status (no procedural complication required) Vamshi Lawson MD PagerNumber: [phone] 08/25/2017 9:50 documented in this encounter Consult Notes * Wendie Lima - 08/25/2017 1127 EDTAssociated Order(s): CONSULT SMOKING CESSATION Consult Completed. Read prior note. * Wendie Lima - 08/25/2017 1100 EDTAssociated Order(s): CONSULT SMOKING [...] 11:00 documented in this encounter ED Notes * Frances Martin RN - 08/25/2017 0713 EDT Verbal report given to GUILLAUME Solitario for continuation of care until transport to . * Frances Martin RN - 08/25/2017 0654 EDT Blood drawn via saline lock per protocol, tiger and blue tube(s) sent to lab per order. * Frances Martin RN - 08/25/2017 0649 EDT Cardiology at bedside to assess. * Leoncio Uribe - 08/25/2017 0611 EDT MD Stein aware Trop 12.400 at 0612 () * Frances Martin RN - 08/25/2017 0458 EDT Received report from GUILLAUME Marinelli for continuation of care at this time. * Belle Villar RN - 08/25/2017 0223 EDT 0100: Cardiology at the bedside, request increase in nitro drip-increased to 20mcg/kg/min. Verbal order for 2mg morphine IVP. Order confirmed with ED MD. Administered as documented in MAR. 0130: Cardiology resident verbal order for 1mg dilaudid IVP and titrate nitro drip to 50mcg/kg/min.BP 117/67. Dilaudid order confirmed with ED MD. Administered as documented in MAR. 0115 UFH drawn and sent to lab. 0155: pt pain reassessed. Appears comfortable. Reports pain is less than a 1/10. 0220: UFH 0.15. Ordered rate change and administered bolus per protocol. See MAR. * Kerri Stein MD - 08/25/2017 0204 EDT I, Lj Pardo, am scribing for Kerri Stein MD while he/she is personally performing theservice. Lj Pardo 08/25/2017 2:04 Samy Patricio is a 51 y.o. male with a history of COPD and HLD who presents to the ED via transfer from [facility] with NSTEMI. Patient initially began experiencing chest pain around 14:00 with associated SOB and diaphoresis. His initial troponin was normal but repeat was 0.98. He was given 324 mg aspirin, 600 mg Plavix, heparin and nitro drip, 25 mg metoprolol, and nicotine patch. He has a significant smoking history. Care and work-up prior to sign out includes normal EKG. Repeat troponin was 7.390. I assumed care of patient from Bella Solomon MD with Cardiology evaluation pending. 00:45 Paged cardiology. Discussed patient with chucking machine set up operator. She will discuss more urgent catheterization pending patient's clinical course. Nitroglycerin was increased and pain improved. Patient remained hemodynamically stable. Patient admitted to Cardiology with telemetry under Dr. Jones. This documentation is recorded by Lj Pardo acting as Scribe under the direction and presence of Kerri Stein MD. Kerri Stein MD: I personally performed the services recorded by the scribe in my presence. I confirm the scribe's documentation has been reviewed by me to accurately and completely record my work, treatment, procedures, and medical decision making. * Amarilis Rodriguez RN - 08/25/2017 0131 EDT Blood drawn via saline lock per protocol, blue tube(s) sent to lab per order for [facility]. * Armaan Gonzalez - 08/25/2017 0017 EDT 12 Lead EKG Performed by ARMAAN GONZALEZ and shown to Bella Solomon MD. * Belle Villar RN - 08/25/2017 0015 EDT 12 Lead EKG Performed by BELLE VILLAR RN and shown to Bella Solomon MD. * Leoncio Uribe - 08/24/2017 5806 EDT MD Solomon aware Trop 7.390 at 0000 (JM) * Belle Villar RN - 08/24/2017 2342 EDT According to EMS and patient. Pt was at [facility] for chest pain with associated SOB that began at 1400, 10/10 pain. Pt pain was effectively managed with one dose of SL nitro. At OSH his first troponin was .03, EKG NSR, second trop .98, transferred here on nitro drip and heparin drip. Pt appears in NADOA. Pain 1/10. Family is at the bedside. On environmental monitoring technician. VSS. Will CTM. * Bella Solomon MD - 08/24/2017 1783 EDT DOS: 08/24/2017 Chief Complaint Patient presents with ??? Chest Pain pt presents from [facility] for NSTEMI. pt CP began at 1400. 1st trop .03, 2nd trop .98. CXR neg. a nitro drip was initiated at 15 mcg/min. heparin drip started at 8768-0753 units/hr with a 4000 unit bolus. pt recieved 4 mg zofran as well. OA pt appears in NAD, VSS, pain is 1/10 described as mostly pressure. HPI I, Lynn Daniel, am scribing for Bella Solomon MD while he/she is personally performing the service. Lynn Sanchez 08/24/2017 22:53 Samy Patricio is a 51 y.o. male with a history of COPD and HLD who presents to the ED via EMS asa transfer from [facility] for cardiology consult for NSTEMI. 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 The patient associates resolved SOB and diaphoresis. He denies chest pain radiation to arms, nausea, or shooting pain. On chart review, the patient had an initial troponin of 0.03 and 2 hours later elevated at 0.98. The patient was given aspirin 324 mg, Plavix 600 [...] ED via EMS as a transfer from [facility] for cardiology consult for NSTEMI. 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 2310- I paged the chucking machine set up operator. 2341- I repaged cardiology. 2355- The patient's nurse reports his chest pain is coming back. The patient's nitro drip was restarted. The patient had a repeat EKG that was unchanged from prior. Patient had labs that were reviewed independently by myself, significant for troponin elevated at 7.390. 0015- I spoke with the ANC in the ED, who contacted the chucking machine set up operator. The patient was signed out to Dr. [...] the Emergency Department: Serious PCP: Altaf Hoover [facility] This documentation is recorded by Lynn [...] found. documented in this encounter Miscellaneous Notes * Plan of Care - Manisha Hampton RN [...] further questions, and states he understands discharge instructions. Signed copy of AVS received. Pt left with to go home. * Plan of Care - Carolyn Estevez RN - [...] with Pt. CAROLYN ESTEVEZ RN 08/26/2017 1:48 * Plan of Care - Manisha Hampton RN [...] OSH for NSTEMI requiring LHC and 2 DESvia RRA. Cite clean/dry/intact, patient denies chest pain/SOB. Action: Completed admission documentation. Tele applied and BPs cycled per protocol. Administered medications per MAY. Patient instructed on bedrest/limited arm movement post cath. Response: Patient in bed, family at bedside and updated. VSS. Manisha Hampton RN 08/25/2017 11:36 documented in this encounter Plan of Treatment Scheduled Referrals Name Type Priority Associated Diagnoses Order Schedule AMB CONS/FOLLOW UP PRIMARY CARE PHYSICIAN Outpatient Referral Routine NSTEMI (non-ST elevated myocardial infarction) ([facility]) Ordered: 08/25/2017 AMB CONS/FOLLOW UP CARDIAC REHABILITATION Outpatient Referral Routine NSTEMI (non-ST elevated myocardial infarction) ([facility]) Ordered: 08/25/2017 AMB CONS/FOLLOW UP CARDIOLOGY Outpatient Referral Routine NSTEMI (non-ST elevated myocardial infarction) ([facility]) Ordered: 08/25/2017 documented as of this encounter Procedures Procedure Name Priority Date/Time Associated Diagnosis Comments ECG REPORT - SCANNED 08/31/2017 14:29 EDT ECG REPORT - SCANNED 08/30/2017 13:52 EDT GLUCOSE, GLUCOMETER Routine 08/26/2017 7 :32 EDT COMPLETE BLOOD COUNT Routine 08/26/2017 5:29 EDT BUN Routine 08/26/2017 5:29 EDT MAGNESIUM Routine 08/26/2017 5:29 EDT CREATININE Routine 08/26/2017 5:29 EDT LIPID PROFILE (INCLUDES CHOLESTEROL, TRIGLYCERIDES, HDL, LDL) Routine 08/26/2017 5:29 EDT ELECTROLYTES Routine 08/26/2017 5:29 EDT GLUCOSE, GLUCOMETER Routine 08/25/2017 2 1:52 EDT GLUCOSE, GLUCOMETER Routine 08/25/2017 1 7:12 EDT PROTEIN/CREATININE RATIO, URINE Routine 08/25/2017 15:20 EDT GLUCOSE, GLUCOMETER Routine 08/25/2017 1 1:36 EDT TROPONIN I Routine 08/25/2017 10:50 EDT LEFT HEART CATH Routine 08/25/2017 9:54 EDT ECHOCARDIOGRAM Routine 08/25/2017 8:40 EDT GLUCOSE, GLUCOMETER Routine 08/25/2017 6 :45 EDT HEPARIN LEVEL - UNFRACTIONATED HEPARIN STAT 08/25/2017 6:30 EDT BUN Routine 08/25/2017 6:30 EDT CREATININE Routine 08/25/2017 6:30 EDT ELECTROLYTES Routine 08/25/2017 6:30 EDT TROPONIN I Routine 08/25/2017 2:58 EDT GLUCOSE, GLUCOMETER Routine 08/25/2017 2 :56 EDT HEPARIN LEVEL - UNFRACTIONATED HEPARIN STAT 08/25/2017 1:21 EDT INPATIENT ADD-ON STAT 08/25/2017 1:15 EDT EKG 12-LEAD STAT 08/25/2017 0:13 EDT HOLD SST Routine 08/24/2017 23:16 EDT HOLD LAVENDER TOP Routine 08/24/2017 23: 16 EDT HOLD BLUE TOP Routine 08/24/2017 23:16 EDT TROPONIN I STAT 08/24/2017 23:16 EDT PROTIME Routine 08/24/2017 23:16 EDT COMPLETE BLOOD COUNT Routine 08/24/2017 23:16 EDT MAGNESIUM Routine 08/24/2017 23:16 EDT HEMOGLOBIN A1C Routine 08/24/2017 23:16 EDT CREATININE Routine 08/24/2017 23:16 EDT CALCIUM Routine 08/24/2017 23:16 EDT ELECTROLYTES Routine 08/24/2017 23:16 EDT documented in this encounter Results * ECG REPORT - SCANNED (08/31/2017 14:29 EDT) 08/31/2017 14:2 9 EDT Scan 2 [facility] PROCEDURE/MINOR STEFAN GICAL ORDERABLES * ECG REPORT - SCANNED (08/30/2017 13:52 EDT) 08/30/2017 13:5 2 EDT Scan 2 [facility] PROCEDURE/MINOR STEFAN GICAL ORDERABLES * (ABNORMAL) GLUCOSE, GLUCOMETER (08/26/2017 7:32 EDT) Glucose, Fingerstick 185(H) 70 - 100 mg/dl 08/26/2017 11:28 EDT [facility] [employer] [place] Rater ID [id number] 08/26/2017 11:28 EDT [facility] Comment:Test Performed by [facility] BLOOD SPECIMEN / Unknown 08/26/2017 7:32 EDT 08/26/2017 11:28 EDT Chang Garduno MD CHEMISTRY & BLOOD G ORDERABLES Performing Organization Address City/[facility]/ZIP Co de Phone Number [facility] [address] [place] [address] * MAGNESIUM (08/26/2017 5:29 EDT) Magnesium 2.1 1.7 - 2.8 mg/dl 08/26/2017 6:56 EDT [facility] Blood specimen (specimen) BLOOD SPECIMEN / Unknown 08/26/2017 5:29 EDT 08/26/2017 6:18 EDT Adan Sadler MD CHEMISTRY & BLOOD GA S ORDERABLES Performing Organization Address City/[facility]/ZIP Co de Phone Number [facility] [address] [place] [address] * CREATININE (08/26/2017 5:29 EDT) Creatinine 0.97 0.66 - 1.25 mg/dl 08/26/2017 6:56 EDT [facility] GFR, Calculated 91 >60 ml/min/1.7 3m2 08/26/2017 6:56 EDT [facility] Comment: eGFR calculated using CKD-EPI equation for non Americans. Multiply eGFR by 1.16 for Americans. Blood specimen (specimen) BLOOD SPECIMEN / Unknown 08/26/2017 5:29 EDT 08/26/2017 6:18 EDT Nathaniel Greene MD CHEMISTRY & BLOOD GAS ORDERABLES Performing Organization Address [facility] de Phone Number [facility] [address] [place] [address] * BUN (08/26/2017 5:29 EDT) BUN 16 10 - 26 mg/dl 08/26/2017 6:56 EDT [facility] Blood specimen (specimen) BLOOD SPECIMEN / Unknown 08/26/2017 5:29 EDT 08/26/2017 6:18 EDT Nathaniel Greene MD CHEMISTRY & BLOOD GAS ORDERABLES Performing Organization Address [facility] de Phone Number [facility] [address] [place] [address] * (ABNORMAL) ELECTROLYTES (08/26/2017 5:29 EDT) Sodium 135(L) 136 - 145 mEq/L 08/26/2017 6:56 EDT [facility] Potassium 4.2 3.5 - 5.0 mEq/L 08/26/2017 6:56 EDT [facility] Chloride 105 96 - 110 mEq/L 08/26/2017 6:56 EDT [facility] CO2 25 22 - 32 mEq/L 08/26/2017 6:56 EDT [facility] Blood specimen (specimen) BLOOD SPECIMEN / Unknown 08/26/2017 5:29 EDT 08/26/2017 6:18 EDT Nathaniel Greene MD CHEMISTRY & BLOOD GAS ORDERABLES Performing Organization Address City/[facility] Co de Phone Number [facility] [address] [place] [address] * COMPLETE BLOOD COUNT (08/26/2017 5:29 EDT) WBC 7.13 4.0 - 10.4 K/cmm 08/26/2017 6:27 EDT [facility] RBC 4.58 4.36 - 5.78 M/cmm 08/26/2017 6:27 EDT [facility] Hemoglobin 14.3 13.8 - 17.3 gm/dl 08/26/2017 6:27 T [facility] HCT 40.4 39.5 - 50.2 % 08/26/2017 6:27 T [facility] MCV 88 81 - 95 fl 08/26/2017 6:27 EDT [facility] MCH 31.2 27.6 - 33.0 pg 08/26/2017 6:27 T [facility] MCHC 35.4 32.8 - 36.4 gm/dl 08/26/2017 6:27 T [facility] RDW-CV 12.0 <14.2 % 08/26/2017 6:27 [facility] RDW-SD 38.7 <46.0 fl 08/26/2017 6:27 [facility] PLT 195 141 - 377 K/cmm 08/26/2017 6:27 [facility] MPV 10.4 9.5 - 12.7 fl 08/26/2017 6:27 [facility] Blood specimen (specimen) BLOOD SPECIMEN / Unknown 08/26/2017 5:29 EDT 08/26/2017 6:18 EDT Nathaniel Greene MD HEMATOLOGY & PF4 O RDERABLES [facility] [address] [place] [address] * LIPID PROFILE (INCLUDES CHOLESTEROL, TRIGLYCERIDES, HDL, LDL) (08/26/2017 5:29 EDT) Cholesterol 116 mg/dl 08/26/2017 6:56 [facility] Comment: Desirable:<200 Borderline High:200-239 High:>kp=996 Triglycerides 132 mg/dl 08/26/2017 6:56 [facility] Comment: Normal:<150 Borderline High:150-199 High:200-499 Very High:>rf=679 HDL 37 mg/dl 08/26/2017 6:56 [facility] Comment: Low:<40 Normal:40-60 Desirable: >60 LDL, Calculated 53 mg/dl 8 6:56 [facility] Comment: Optimal:<100 Near Optimal:100-129 Borderline High:130-159 High:160-189 Very High:>fu=517 Chol/HDL Ratio 3.1 08/26/2017 6:56 [facility] Fasting? Unknown 08/26/2017 6:56 [facility] Non HDL Cholesterol 79 mg/dl 08/26/2017 6:56 [facility] Comment: Desirable:<130 Borderline:130-159 High: 160-189 Very High: >ns=132 Blood specimen (specimen) BLOOD SPECIMEN / Unknown 08/26/2017 5:29 EDT 08/26/2017 6:18 EDT Nathaniel Greene MD CHEMISTRY & BLOOD GAS ORDERABLES Performing Organization Address City/[facility] Co de Phone Number [facility] [address] [place] [address] * (ABNORMAL) GLUCOSE, GLUCOMETER (08/25/2017 21:52 EDT) Glucose, Fingerstick 238(H) 70 - 100 mg/dl 08/25/2017 21:55 EDT [facility] [employer] [place] ID [id number] 08/25/2017 21:55 T [facility] Comment:Test Performed by [facility] BLOOD SPECIMEN / Unknown 08/25/2017 21:52 EDT 08/25/2017 21:55 EDT Chang Garduno MD CHEMISTRY & BLOOD G ORDERABLES [facility] [address] [place] [address] * (ABNORMAL) GLUCOSE, GLUCOMETER (08/25/2017 17:12 EDT) Glucose, Fingerstick 197(H) 70 - 100 mg/dl 08/25/2017 17:17 EDT [facility] [employer] Rater ID [id number] 08/25/2017 17:17 EDT [facility] Comment:Test Performed by [facility] BLOOD SPECIMEN / Unknown 08/25/2017 17:12 EDT 08/25/2017 17:17 EDT Chang Garduno MD CHEMISTRY & BLOOD G ORDERABLES Performing Organization Address [facility]/ZIP Co de Phone Number [facility] [address] [place] [address] * PROTEIN/CREATININE RATIO, URINE (08/25/2017 15:20 EDT) Tot Prot,Ur Random 5 mg/dl 08/25/2017 16:43 EDT [facility] Creatinine, Urn Colton 117.0 mg/dl 08/25/2017 16:43 EDT [facility] UPRO mg/mg Cr, Ur 0.04 <0.11 mg/mg Crea 08/25/2017 16:43 EDT [facility] Urine specimen (specimen) URINE / Unknown 08/25/2017 15:20 EDT 08/25/2017 16:07 EDT Adan Sadler MD URINALYSIS ORDERABLE S Performing Organization Address [facility]/ZIP Co de Phone Number [facility] [address] [place] [address] * (ABNORMAL) GLUCOSE, GLUCOMETER (08/25/2017 11:36 EDT) Glucose, Fingerstick 220(H) 70 - 100 mg/dl 08/25/2017 11:41 EDT [facility] [employer] Rater ID [id number] 08/25/2017 11:41 EDT [facility] Comment:Test Performed by [facility] BLOOD SPECIMEN / Unknown 08/25/2017 11:36 EDT 08/25/2017 11:41 EDT Chang Garduno MD CHEMISTRY & BLOOD G ORDERABLES Performing Organization Address [facility] de Phone Number [facility] [address] [place] [address] * (ABNORMAL) TROPONIN I (08/25/2017 10:50 EDT) Pathologist [facility] Troponin I (ng/mL) 8.520(H) <0.034 ng/ml 08/25/2017 11:59 EDT [facility] Comment: The results of this assay can be falsely lowered due to the consumption of Biotin. Blood specimen (specimen) BLOOD SPECIMEN / Unknown 08/25/2017 10:50 EDT 08/25/2017 11:20 EDT Nathaniel Greene MD CHEMISTRY & BLOOD GAS ORDERABLES Performing Organization Address [facility] de Phone Number [facility] [address] [place] [address] * LEFT HEART CATH (08/25/2017 9:54 EDT) Anatomical Region Laterality Modality Other 08/25/2017 9:54 EDT Narrative 08/28/2017 15:36 EDT Cardiology [address] [place] [address] Catheterization Laboratory Study Patient: Samy Patricio ?Study Date: ?08/25/2017 ? Accession #: ? [id number] : ? 1965 Referring: Altaf Hoover Diagnostic Attending: ??Vamshi Lawson Interventional Attending: ?? Vamshi Lawson Diagnostic Fellow: Hilario Coffman MD Interventional Fellow: Hilario Coffman MD ATTESTATION: IDr. Hilario was the initial author of this report. Dr. Vamshi Lawson was present and supervising for the entire procedure. I, Dr. Vamshi Lawson have reviewed and agreed with the findings of this report. PROCEDURE PLAN: Based on the diagnostic study percutaneous coronary intervention is indicated. RESEARCH STUDY: Patient is not enrolled in any research studies. IMPRESSIONS: 1. Severe double vessel coronary artery disease, predominantly involving ?? the circumflex and RCA. 2. Non ST-elevated myocardial infarction (NSTEMI). The culprit lesion ?? was identified. SUMMARY: 1. HPI and indications: Dyspnea. 2. Left circumflex: Proximal vessel lesion: There is an 80% stenosis. ?? There is ENE grade 3 flow (brisk flow) across the lesion. The lesion ?? was stented (see 1st lesion intervention). Following intervention, ?? the lesion has a residual stenosis of 0%, an excellent angiographic ?? appearance, and ENE grade 3 flow (brisk flow). 3. Right coronary: Mid-vessel lesion: There is a 90% stenosis. There is ?? ENE grade 3 flow (brisk flow) across the lesion. The lesion was ?? stented (see 2nd lesion intervention). Following intervention, the ?? lesion has a residual stenosis of 0%, an excellent angiographic ?? appearance, and ENE grade 3 flow (brisk flow). RECOMMENDATIONS: 1. Patient management should include smoking cessation, counseling to ?? assist with smoking cessation, and a cardiac rehabilitation program. 2. Add statin therapy. 3. Add aspirin. 4. Add ticagrelor (Brilinta). HISTORY: Dyspnea. ??Risk factors: ??Family history of coronary artery disease. Current tobacco use. Diabetes mellitus; on therapy with oral hypoglycemics. Dyslipidemia. LABS, PRIOR TESTS, PROCEDURES AND SURGERY: Serum creatinine (current admission) of 1 mg/dl. ??Hemoglobin (pre-procedure) of 13.8 g/dl. STUDY DATA: Study status: ??Percutaneous coronary intervention: urgent. ??Location: Catheterization laboratory. Sex: male. Patient is 51yr old. Height: 182.9cm. Weight: 117.9kg. BSA: 2.49m^2. Procedures performed: ?Right radial artery access. ?Left heart catheterization. ?Right coronary angiography. ?Left coronary angiography. ?Lesion intervention: ?? Percutaneous intervention on the 80% stenosis in the proximal left circumflex. ?Stent placement. ?Lesion intervention: ?? Percutaneous intervention on the 90% stenosis in the mid right coronary. ?Stent placement. ANESTHESIA: Conscious sedation. PROCEDURE: 1. Initial setup. The patient was brought to the laboratory in the ?? fasting state. A baseline ECG was recorded. Surface ECG leads, ?? automatic cuff blood pressure measurements, and pulse oximetric ?? signals were monitored. 2. Skin preparation. The planned puncture sites were prepped with ?? chlorhexidine and draped in the usual sterile manner. 3. Local anesthesia. Using 2% Lidocaine, local anesthetic was ?? administered to the access site(s). 4. Right radial artery access. A 6 Fr/10/.021 May Sheath SLENDER ?? sheath was advanced into the vessel. 5. Left heart catheterization. A catheter was advanced across the aortic ?? valve to the left ventricle under fluoroscopic guidance. Resting ?? hemodynamics were obtained. Measurements included pressure recordings ?? from the left ventricle and aortic root. 6. Selective right coronary angiography. A 5 FR Jose catheter was ?? advanced into the right coronary vessel ostium under fluoroscopic ?? guidance. Contrast was injected. Images were obtained in multiple ?? projections. 7. Selective left coronary angiography. A 5 FR Jose catheter was ?? advanced into the left coronary vessel ostium under fluoroscopic ?? guidance. Contrast was injected. Images were obtained in multiple ?? projections. 8. Right radial artery hemostasis. Mechanical compression was applied. 1st lesion intervention: Percutaneous intervention on the 80% stenosis in the proximal left circumflex. 1. Guider placement. A 6fr Runway CLS3 guiding catheter was placed. 2. Wire placement. A 180 Prowater wire was placed across the lesion. 3. Stent placement. A 3.5mm (D) x 15mm (L), Resolute stent was advanced ?? across the lesion and deployed with two inflations and a maximum ?? pressure of 21atm. 2nd lesion intervention: Percutaneous intervention on the 90% stenosis in the mid right coronary. 1. Guider placement. A 6fr Runway CLS3 guiding catheter was placed into ?? the ostium of the right coronary artery. 2. Wire placement. A 180 Prowater wire was placed across the lesion. 3. Stent placement. A 2.5mm (D) x 12mm (L), Resolute stent was advanced ?? across the lesion and deployed with a single inflation and a maximum ?? pressure of 17atm. STUDY COMPLETION: The estimated blood loss was 10ml. All catheters inserted during the procedure were removed. The patient tolerated the procedure well and was discharged from the lab. There were no complications. ??Contrast: Isovue 165ml (total dose). ??Isovue 135ml (wasted). ??Fluoroscopy time: 14.6min. ??Fluoroscopy dose: ??124.7cGy. CORONARY ARTERIES: The coronary circulation is right dominant. Left main: ??Normal. LAD: ??Minor luminal irregularities. Left circumflex: ??Proximal vessel lesion: There is an 80% stenosis. There is ENE grade 3 flow (brisk flow) across the lesion. The lesion was stented (see 1st lesion intervention). Following intervention, the lesion has a residual stenosis of 0%, an excellent angiographic appearance, and ENE grade 3 flow (brisk flow). There were no site complications. Right coronary: ??Minor luminal irregularities. ??Mid-vessel lesion: There is a 90% stenosis. There is ENE grade 3 flow (brisk flow) across the lesion. The lesion was stented (see 2nd lesion intervention). Following intervention, the lesion has a residual stenosis of 0%, an excellent angiographic appearance, and ENE grade 3 flow (brisk flow). There were no site complications. HEMODYNAMICS: End diastolic pressure in the left ventricle is mildly elevated. Pressure measurements across the aortic valve show no evidence of stenosis. + + + LV pressure s/ed ? 97/19 ? + + + Arterial pressure s/d (m) 97/72 (85) + + + * Electronically signed by Vamshi Lawson Jr., MD 2017-08-28 15:36 Procedure Note Vamshi Lawson Jr., MD - 08/28/[address] [place] [address] Catheterization Laboratory Study Patient: Samy Patricio Study Date: 08/25/2017 : 1965 Referring: Altaf Hoover Diagnostic Attending: Vamshi Lawson Interventional Attending: Vamshi Lawson Diagnostic Fellow: Hilario Coffman MD Interventional Fellow: Hilario Coffman MD ATTESTATION: Dr. Hilario Carmona was the initial author of this report. Dr. Vamshi Lawson was present and supervising for the entire procedure. Dr. Vamshi Carmona have reviewed and agreed with the findings of this report. PROCEDURE PLAN: Based on the diagnostic study percutaneous coronary intervention is indicated. RESEARCH STUDY: Patient is not enrolled in any research studies. IMPRESSIONS: 1. Severe double vessel coronary artery disease, predominantly involving the circumflex and RCA. 2. Non ST-elevated myocardial infarction (NSTEMI). The culprit lesion was identified. SUMMARY: 1. HPI and indications: Dyspnea. 2. Left circumflex: Proximal vessel lesion: There is an 80% stenosis. There is ENE grade 3 flow (brisk flow) across the lesion. The lesion was stented (see 1st lesion intervention). Following intervention, the lesion has a residual stenosis of 0%, an excellent angiographic appearance, and ENE grade 3 flow (brisk flow). 3. Right coronary: Mid-vessel lesion: There is a 90% stenosis. There is ENE grade 3 flow (brisk flow) across the lesion. The lesion was stented (see 2nd lesion intervention). Following intervention, the lesion has a residual stenosis of 0%, an excellent angiographic appearance, and ENE grade 3 flow (brisk flow). RECOMMENDATIONS: 1. Patient management should include smoking cessation, counseling to assist with smoking cessation, and a cardiac rehabilitation program. 2. Add statin therapy. 3. Add aspirin. 4. Add ticagrelor (Brilinta). HISTORY: Dyspnea. Risk factors: Family history of coronary artery disease. Current tobacco use. Diabetes mellitus; on therapy with oral hypoglycemics. Dyslipidemia. LABS, PRIOR TESTS, PROCEDURES AND SURGERY: Serum creatinine (current admission) of 1 mg/dl. Hemoglobin (pre-procedure) of 13.8 g/dl. STUDY DATA: Study status: Percutaneous coronary intervention: urgent. Location: Catheterization laboratory. Sex: male. Patient is 51yr old. Height: 182.9cm. Weight: 117.9kg. BSA: 2.49m^2. Procedures performed: Right radial artery access. Left heart catheterization. Right coronary angiography. Left coronary angiography. Lesion intervention: Percutaneous intervention on the 80% stenosis in the proximal left circumflex. Stent placement. Lesion intervention: Percutaneous intervention on the 90% stenosis in the mid right coronary. Stent placement. ANESTHESIA: Conscious sedation. PROCEDURE: 1. Initial setup. The patient was brought to the laboratory in the fasting state. A baseline ECG was recorded. Surface ECG leads, automatic cuff blood pressure measurements, and pulse oximetric signals were monitored. 2. Skin preparation. The planned puncture sites were prepped with chlorhexidine and draped in the usual sterile manner. 3. Local anesthesia. Using 2% Lidocaine, local anesthetic was administered to the access site(s). 4. Right radial artery access. A 6 Fr/10/.021 May Sheath SLENDER sheath was advanced into the vessel. 5. Left heart catheterization. A catheter was advanced across the aortic valve to the left ventricle under fluoroscopic guidance. Resting hemodynamics were obtained. Measurements included pressure recordings from the left ventricle and aortic root. 6. Selective right coronary angiography. A 5 [...] multiple projections. 8. Right radial artery hemostasis. Mechanical compression was applied. 1st lesion intervention: Percutaneous intervention on the 80% stenosis in the proximal left circumflex. 1. Guider placement. A 6fr Runway CLS3 guiding catheter was placed. 2. Wire placement. A 180 Prowater wire was placed across the lesion. 3. Stent placement. A 3.5mm (D) x 15mm (L), Resolute stent was advanced across the lesion and deployed with two inflations and a maximum pressure of 21atm. 2nd lesion intervention: Percutaneous intervention on the 90% stenosis in the mid right coronary. 1. Guider placement. A 6fr Runway CLS3 guiding catheter was placed into the ostium of the right coronary artery. 2. Wire placement. A 180 Prowater wire was placed across the lesion. 3. Stent placement. A 2.5mm (D) x 12mm (L), Resolute stent was advanced across the lesion and deployed with a single inflation and a maximum pressure of 17atm. STUDY COMPLETION: The estimated blood loss was 10ml. All catheters inserted during the procedure were removed. The patient tolerated the procedure well and was discharged from the lab. There were no complications. Contrast: Isovue 165ml (total dose). Isovue 135ml (wasted). Fluoroscopy time: 14.6min. Fluoroscopy dose: 124.7cGy. CORONARY ARTERIES: The coronary circulation is right dominant. Left main: Normal. LAD: Minor luminal irregularities. Left circumflex: Proximal vessel lesion: There is an 80% stenosis. There is ENE grade 3 flow (brisk flow) across the lesion. The lesion was stented (see 1st lesion intervention). Following intervention, the lesion has a residual stenosis of 0%, an excellent angiographic appearance, and ENE grade 3 flow (brisk flow). There were no site complications. Right coronary: Minor luminal irregularities. Mid-vessel lesion: There is a 90% stenosis. There is ENE grade 3 flow (brisk flow) across the lesion. The lesion was stented (see 2nd lesion intervention). Following intervention, the lesion has a residual stenosis of 0%, an excellent angiographic appearance, and ENE grade 3 flow (brisk flow). There were no site complications. HEMODYNAMICS: End diastolic pressure in the left ventricle is mildly elevated. Pressure measurements across the aortic valve show no evidence of stenosis. + + + LV pressure s/ed 97/19 + + + Arterial pressure s/d (m) 97/72 (85) + + + * Electronically signed by Vamshi Lawson Jr., MD 2017-08-28 15:36 Nathaniel Greene MD CARDIAC CATH ORDER TREVON * ECHOCARDIOGRAM (08/25/2017 8:40 EDT) Anatomical Region Laterality Modality Other 08/25/2017 8:40 EDT Narrative 08/25/2017 9:40 EDT *Interpreting Group:* *[facility]* [address] [place] [address] Date of study: 08/25/2017 Transthoracic Echocardiography M-mode, complete 2D, complete spectral Doppler, and color Doppler *STUDY CONCLUSIONS* Summary: 1. Left ventricle: The cavity size was normal. Wall thickness was at the ?? upper limits of normal. Systolic function was normal. The estimated ?? ejection fraction was 55-60%. Endocardial definiton was limited. The ?? lateral wall appeared hypokinetic in the some views (loop 34). 2. Right ventricle: The cavity size was normal. Wall thickness was ?? normal. Systolic function was normal. *PATIENT PRESENTATION* Height: ? 182.9cm ((72in) ) S/D Pressure: 115 / 85 Weight: ? 117.9kg ((259.5lb) ) BSA: ?2.49m^2 Test start time: ??07:56 AM. Test stop time: ??08:30 AM. ADMITTING ?Chang Garduno MD PHOTOGRAPHER NEWS ??Nathaniel Blackwood SPENSER REFERRING ?Altaf Hoover ATTENDING ?Kerri Stein FELLOW ? Franco Moon MD PERFORMING ?? [facility] ORDERING ? Nathaniel Greene. *PROCEDURE DATA* Procedure information: ??The patient was identified by two identifiers. This study was interpreted by [facility]. Pertinent images and digital data are archived for permanent storage and are available for subsequent review. ??Study status: Routine. Transthoracic echocardiography. ??M-mode, complete 2D, complete spectral Doppler, and color Doppler. A Transthoracic Echocardiogram was performed. Scanning was performed from the parasternal, apical, subcostal, and suprasternal notch acoustic windows. Images were obtained using an [employer] 15 cardiac ultrasound machine. Image quality was suboptimal. The study was technically limited due to poor acoustic window availability and body habitus. Intravenous contrast (Definity) was administered by Nathaniel HUNTER [facility] to enhance delineation of left ventricular endocardial borders. Prior to administration at least two (2) contiguous segments of the left ventricular border were not visualized. Definity amount administered was a total of 2ml. One vial was used. ??Study completion: ??The patient tolerated the procedure well. *INDICATIONS AND HISTORY* Indications: ?? NSTEMI I21.4. *CARDIAC ANATOMY* Left ventricle: ??The cavity size was normal. Wall thickness was at the upper limits of normal. Systolic function was normal. The estimated ejection fraction was 55-60%. Endocardial definiton was limited. The lateral wall appeared hypokinetic in the some views (loop 34). Diastolic parameters were not diagnostic. Aortic valve: ?? Probably trileaflet; normal thickness leaflets. Mobility was not restricted. ??Doppler: ??Transvalvular velocity was within the normal range. There was no stenosis. There was no significant regurgitation. Aorta: ??Aortic root: The aortic root was normal in size. Mitral valve: ?? Structurally normal valve. ?? Mobility was not restricted. ??Doppler: ??Transvalvular velocity was within the normal range. There was no evidence for stenosis. There was no significant regurgitation. ?Peak gradient (D): 2.2mm Hg. Left atrium: ??The atrium was at the upper limits of normal in size. Right ventricle: ??The cavity size was normal. Wall thickness was normal. Systolic function was normal. Pulmonic valve: ?Doppler: ??Transvalvular velocity was within the normal range. There was no evidence for stenosis. There was no significant regurgitation. Tricuspid valve: ?? Structurally normal valve. ?Doppler: ??Transvalvular velocity was within the normal range. There was no evidence for stenosis. There was no significant regurgitation. Pulmonary artery: ?Systolic pressure could not be accurately estimated. Right atrium: ??The atrium was normal in size. Pericardium: ??There was no pericardial effusion. Systemic veins: Inferior vena cava: The vessel was dilated. The respirophasic diameter changes were in the normal range (greater than or equal to 50%). Measurements Left [...] Legend: (L) ??and ??(H) ??ursula values outside specified reference range. I have personally reviewed the images and have reviewed and edited the reported findings. Electronically signed by Raj Greene MD 08/25/2017 09:40 Procedure Note Raj Greene MD - 08/25/2017 *Interpreting Group:* *[facility]* [address] [id number] Date of study: 08/25/2017 Transthoracic Echocardiography M-mode, complete 2D, complete spectral Doppler, and color Doppler *STUDY CONCLUSIONS* Summary: 1. Left ventricle: The cavity size was normal. Wall [...] time: 08:30 AM. ADMITTING Chang Garduno MD PHOTOGRAPHER NEWS Nathaniel Blackwood RDCS REFERRING Altaf Hoover ATTENDING Kerri Stein FELLOW Franco Moon MD PERFORMING [facility], [facility] ORDERING Nathaniel Greene *PROCEDURE DATA* Procedure information: The patient was identified by two identifiers. This study was interpreted by [facility]. Pertinent images and digital data are archived for permanent storage and are available for subsequent review. Study status: Routine. Transthoracic echocardiography. M-mode, complete 2D, complete spectral Doppler, and color Doppler. A Transthoracic Echocardiogram was performed. Scanning was performed from the parasternal, apical, subcostal, and suprasternal notch acoustic windows. Images were obtained using an [employer] 15 cardiac ultrasound machine. Image quality was suboptimal. The study was technically limited due to poor acoustic window availability and body habitus. Intravenous contrast (Definity) was administered by Nathaniel HUNTER, [facility] to enhance delineation of left ventricular endocardial borders. Prior to administration at least two (2) contiguous segments of the left ventricular border were not visualized. Definity amount administered was a total of 2ml. One vial was used. Study completion: The patient tolerated the procedure well. *INDICATIONS AND HISTORY* Indications: NSTEMI I21.4. *CARDIAC ANATOMY* Left ventricle: The cavity size was normal. Wall thickness was at the upper limits of normal. Systolic function was normal. The estimated ejection fraction was 55-60%. Endocardial definiton was limited. The lateral wall appeared hypokinetic in the some views (loop 34). Diastolic parameters were not diagnostic. Aortic valve: Probably trileaflet; normal thickness leaflets. Mobility was not restricted. Doppler: Transvalvular velocity was within the normal range. There was no stenosis. There was no significant regurgitation. Aorta: Aortic root: The aortic root was normal in size. Mitral valve: Structurally normal valve. Mobility was not restricted. Doppler: Transvalvular velocity was within the normal range. There was no evidence for stenosis. There was no significant regurgitation. Peak gradient (D): 2.2mm Hg. Left atrium: The atrium was at the upper limits of normal in size. Right ventricle: The cavity size was normal. Wall thickness was normal. Systolic function was normal. Pulmonic valve: Doppler: Transvalvular velocity was within the normal range. There was no evidence for stenosis. There was no significant regurgitation. Tricuspid valve: Structurally normal valve. Doppler: Transvalvular velocity was within the normal range. There was no evidence for stenosis. There was no significant regurgitation. Pulmonary artery: Systolic pressure could not be accurately estimated. Right atrium: The atrium was normal in size. Pericardium: There was no pericardial effusion. Systemic veins: Inferior vena cava: The vessel was dilated. The respirophasic diameter changes were in the normal range (greater than or equal to 50%). Measurements Left ventricle Value Reference LV ID, ED, PLAX 4.3 cm 3.5 - 6.0 LV ID, ES, PLAX 2.8 cm 2.1 - 4.0 LV PW thickness, ED, PLAX 1.1 cm LV end-diastolic volume, 1-p A2C 86 ml LV ejection fraction, 1-p A2C 59 % LV end-diastolic volume, 1-p A4C 118 ml LV ejection fraction, 1-p A4C 59 % LV IVRT, DP (H) 116 ms 60 - 100 LV e', lateral 0.074 m/sec LV E/e', lateral 10 LV e', medial 0.064 m/sec LV E/e', medial 11 LV e', average 0.069 m/sec LV E/e', average 11 Ventricular septum Value Reference IVS thickness, ED, PLAX 1.2 cm LVOT Value Reference LVOT ID, S 2.1 cm LVOT area 3.5 cm^2 LVOT peak velocity, S 0.95 m/sec LVOT mean velocity, S 0.66 m/sec LVOT VTI, S 21.3 cm LVOT mean gradient, S 2 mm Hg Stroke volume (SV), LVOT DP 74 ml Stroke index (SV/bsa), LVOT DP 30 ml/m^2 Aorta Value Reference Aortic root ID 3.3 cm Ascending aorta ID, A-P 3.4 cm Ascending aorta ID, A-P, S 3.4 cm Left atrium Value Reference LA ID, A-P, ES 3.8 cm LA ID/bsa, A-P 1.5 cm/m^2 <=2.2 LA area, ES, A4C 23.3 cm^2 8.8 - 23.4 LA area, ES, A2C 27 cm^2 LA volume, ES, 2-p 80 ml LA volume/bsa, ES, 2-p 32 ml/m^2 LA/aortic root ratio 1.15 Mitral valve Value Reference Mitral E-wave peak velocity 0.74 m/sec Mitral A-wave peak velocity 0.8 m/sec Mitral deceleration time 225 ms 150 - 230 Mitral peak gradient, D 2.2 mm Hg Mitral E/A ratio, peak 0.9 Legend: (L) and (H) ursula values outside specified reference range. I have personally reviewed the images and have reviewed and edited the reported findings. Electronically signed by Raj Greene MD 08/25/2017 09:40 Nathaniel Greene MD CARDIAC ECHO ORDER TREVON * (ABNORMAL) GLUCOSE, GLUCOMETER (08/25/2017 6:45 EDT) Glucose, Fingerstick 203(H) 70 - 100 mg/dl 08/25/2017 6:48 EDT [facility] [employer] [place] [id number] 08/25/2017 6:48 EDT [facility] Comment:[facility] BLOOD SPECIMEN / Unknown 08/25/2017 6:45 EDT 08/25/2017 6:48 EDT Chang Garduno MD CHEMISTRY & BLOOD G ORDERABLES Performing Organization Address City/[facility] Co de Phone Number [facility] [address] [place] [address] * CREATININE (08/25/2017 6:30 EDT) Creatinine 1.00 0.66 - 1.25 mg/dl 08/25/2017 7:38 EDT [facility] GFR, Calculated 87 >60 ml/min/1.7 3m2 08/25/2017 7:38 EDT [facility] Comment: eGFR calculated using CKD-EPI equation for non Americans. Multiply eGFR by 1.16 for Americans. Blood specimen (specimen) BLOOD SPECIMEN / Unknown 08/25/2017 6:30 EDT 08/25/2017 6:52 EDT Nathaniel Greene MD CHEMISTRY & BLOOD GAS ORDERABLES Performing Organization Address City/[facility] Co de Phone Number [facility] [address] [place] [address] * BUN (08/25/2017 6:30 EDT) BUN 16 10 - 26 mg/dl 08/25/2017 7:38 EDT [facility] Blood specimen (specimen) BLOOD SPECIMEN / Unknown 08/25/2017 6:30 EDT 08/25/2017 6:52 EDT Nathaniel Greene MD CHEMISTRY & BLOOD GAS ORDERABLES Performing Organization Address [facility] Co de Phone Number [facility] [address] [place] [address] * ELECTROLYTES (08/25/2017 6:30 EDT) Sodium 137 136 - 145 mEq/L 08/25/2017 7:38 EDT [facility] Potassium 4.7 3.5 - 5.0 mEq/L 08/25/2017 7:38 EDT [facility] Chloride 105 96 - 110 mEq/L 08/25/2017 7:38 EDT [facility] CO2 26 22 - 32 mEq/L 08/25/2017 7:38 EDT [facility] Blood specimen (specimen) BLOOD SPECIMEN / Unknown 08/25/2017 6:30 EDT 08/25/2017 6:52 EDT Nathaniel Greene MD CHEMISTRY & BLOOD GAS ORDERABLES Performing Organization Address [facility] de Phone Number [facility] [address] [place] [address] * HEPARIN LEVEL - UNFRACTIONATED HEPARIN (08/25/2017 6:30 EDT) Heparin Level-UFH 0.48 IU/mL 018 7:13 EDT [facility] Comment: Unfractionated heparin therapeutic range = 0.3-0.7 IU/ml This test is not intended for monitoring direct Xa inhibitors, direct thrombin inhibitors, or fondaparinux. Exogenous ATIII is NOT supplied in this assay. For unexpected or persistently low levels, consider measuring patient's ATIII level. Blood specimen (specimen) BLOOD SPECIMEN / Unknown 08/25/2017 6:30 EDT 08/25/2017 6:52 EDT Nathaniel Greene MD HEMATOLOGY & PF4 O RDERABLES Performing Organization Address City/[facility] Co de Phone Number [facility] [address] [place] [address] * (ABNORMAL) TROPONIN I (08/25/2017 2:58 EDT) [facility] Troponin I (ng/mL) 12.400(H) <0.034 ng/ml 08/25/2017 3:52 EDT [facility] Comment: The results of this assay can be falsely lowered due to the consumption of Biotin. Blood specimen (specimen) BLOOD SPECIMEN / Unknown 08/25/2017 2:58 EDT 08/25/2017 3:03 EDT Nathaniel Greene MD CHEMISTRY & BLOOD GAS ORDERABLES Performing Organization Address [facility] Co de Phone Number [facility] [address] [place] [address] * (ABNORMAL) GLUCOSE, GLUCOMETER (08/25/2017 2:56 EDT) [facility] Glucose, Fingerstick 182(H) 70 - 100 mg/dl 08/25/2017 3:01 EDT [facility] [employer] [place] [id number] 08/25/2017 3:01 EDT [facility] Comment:Test Performed by [facility] BLOOD SPECIMEN / Unknown 08/25/2017 2:56 EDT 08/25/2017 3:01 EDT Chang Garduno MD CHEMISTRY & BLOOD G ORDERABLES Performing Organization Address [facility] Co de Phone Number [facility] [address] [place] [id number] * HEPARIN LEVEL - UNFRACTIONATED HEPARIN (08/25/2017 1:21 EDT) Pathologist [facility] Heparin Level-UFH 0.15 IU/mL 018 2:02 EDT [facility] Comment: Unfractionated heparin therapeutic range = 0.3-0.7 IU/ml This test is not intended for monitoring direct Xa inhibitors, direct thrombin inhibitors, or fondaparinux. Exogenous ATIII is NOT supplied in this assay. For unexpected or persistently low levels, consider measuring patient's ATIII level. Sample retested, result confirmed Blood specimen (specimen) BLOOD SPECIMEN / Unknown 08/25/2017 1:21 EDT 08/25/2017 1:30 EDT Bella Solomon MD HEMATOLOGY & PF4 ORD ERABLES Performing Organization Address [facility] de Phone Number [facility] [address] [place] [address] * INPATIENT ADD-ON (08/25/2017 1:15 EDT) Tests to be added MAGNESIUM, CALCIUM,CR EATININE,E LECTROLYTE S,CBC,PROT CHELSEA,HEMOGL OBIN A1C 08/25/2017 1:15 EDT [facility] Number for problems Not Given 08/25/2017 1:26 EDT [facility] Accession number [id number] 08/25/2017 1:26 EDT [facility] TOPOGRAPHY UNKNOWN / Unknown 08/25/2017 1:15 EDT 08/25/2017 1:26 EDT Nathaniel Greene MD HEMATOLOGY & PF4 O RDERABLES Performing Organization Address [facility] de Phone Number [facility] [address] [place] [address] * EKG 12-LEAD (08/25/2017 0:13 EDT) 08/25/2017 0:13 EDT Narrative [facility] EKG - 08/31/2017 14:22 EDT ?[facility] Emergency ? Test Date: ?2017-08-25 Pat Name: ? SAMY SCHARTNER ? Department: ?? ED ? Room: ? AC04 Gender: ? Male ? [facility] Director: ?? [id number] : ?1965 ? Requested By: NOLA WILSON M Order Number: [id number] ? Reading MD: ?? VASQUEZ BETANCOURT SA MD ? Measurements Intervals ?[place] ? Rate: ? 65 ? P: ?57 FL: ? 186 ?QRS: ?43 QRSD: ? 88 ? T: ?29 QT: ? 395 ? QTc: ?412 ? Interpretive Statements SINUS RHYTHM Automated Interpretation. ??Provider Interpretation to follow. No previous ECG available for comparison I reviewed the tracing and have either agreed or edited the findings in this report. Electronically Signed On 08-31-2017 14:22:34 EDT by VASQUEZ BETANCOURT SA, MD. Procedure Note Vasquez Thorne Sa, MD - 08/31/2017 [facility] Test Date: 2017-08-25 Pat Name: SAMY PATRICIO Department: ED Room: [facility] Gender: Male [facility] Director: [id number] : 1965 Requested By: NOLA Barksdale Order Number: [id number] Reading MD: VASQUEZ MCCORMACK Measurements Intervals [place] Rate: 65 P: 57 FL: 186 QRS: 43 QRSD: 88 T: 29 QT: 395 QTc: 412 Interpretive Statements SINUS RHYTHM Automated Interpretation. Provider Interpretation to follow. No previous ECG available for comparison I reviewed the tracing and have either agreed or edited the findings inthis report. Electronically Signed On 08-31-2017 14:22:34 EDT by VASQUEZ ECHEVARRIA SA, MD. Bella Solomon MD CARDIAC ECG ORDERABL ES Performing Organization Address [facility] Co de Phone Number [facility] EKG * PROTIME (08/24/2017 23:16 EDT) Pro Time 11.2 10.3 - 13.4 secs 08/25/2017 1:48 EDT [facility] Comment:NOTE NEW REFERENCE R LUIS OF APR 13 2017 I.N.R. 1.0 0.9 - 1.1 Ratio 08/25/2017 1:48 EDT [facility] Comment: Moderate Intensity Coumadin INR = 2.0-3.0 Adjustments in anticoagulant therapy dose should be based upon the INR and NOT the Pro Time. BLOOD SPECIMEN / Unknown 08/24/2017 23:16 EDT 08/24/2017 23:19 EDT Bella Solomon MD HEMATOLOGY & PF4 ORD ERABLES Performing Organization Address City/[facility] Co de Phone Number [facility] [address] [place] [address] * MAGNESIUM (08/24/2017 23:16 EDT) Magnesium 2.0 1.7 - 2.8 mg/dl 08/25/2017 2:01 EDT [facility] BLOOD SPECIMEN / Unknown 08/24/2017 23:16 EDT 08/24/2017 23:19 EDT Bella Solomon MD CHEMISTRY & BLOOD GA S ORDERABLES Performing Organization Address City/[facility] Co de Phone Number [facility] [address] [place] [address] * ELECTROLYTES (08/24/2017 23:16 EDT) Sodium 139 136 - 145 mEq/L 08/25/2017 2:01 EDT [facility] Potassium 4.3 3.5 - 5.0 mEq/L 08/25/2017 2:01 EDT [facility] Comment: Interpret results with caution. Prolonged sample storage may alter result. Chloride 108 96 - 110 mEq/L 08/25/2017 2:01 EDT [facility] CO2 24 22 - 32 mEq/L 08/25/2017 2:01 T [facility] Comment: Interpret results with caution. Prolonged sample storage may alter result. BLOOD SPECIMEN / Unknown 08/24/2017 23:16 EDT 08/24/2017 23:19 EDT Bella Solomon MD CHEMISTRY & BLOOD GA S ORDERABLES [facility] [address] [place] [address] * HEMOGLOBIN A1C (08/24/2017 23:16 EDT) Hemoglobin A1C 9.6 % 08/25/2017 10:42 EDT [facility] Comment: Reference Range: <5.7% Normal 5.7-6.4% Prediabetes =>6.5% Diagnostic for diabetes (if confirmed) Goals for glycemic control in diabetes ADA 2017 For non adults with diabetes: ?? Target <7.5% For children and adolescents with type 1 diabetes: ?? Target <7.0% More or less stringent targets may be appropriate for individual patients. Est Avg Glucose 229 mg/dl 8 10:42 EDT [facility] Comment: eAG represents the A1c result expressed as average glucose in mg/dl. BLOOD SPECIMEN / Unknown 08/24/2017 23:16 EDT 08/24/2017 23:19 EDT Bella Solomon MD CHEMISTRY & BLOOD GA S ORDERABLES Performing Organization Address [facility] de Phone Number [facility] [address] [place] [address] * CREATININE (08/24/2017 23:16 EDT) Creatinine 1.03 0.66 - 1.25 mg/dl 08/25/2017 2:01 EDT [facility] GFR, Calculated 84 >60 ml/min/1.7 3m2 08/25/2017 2:01 EDT [facility] Comment: eGFR calculated using CKD-EPI equation for non Americans. Multiply eGFR by 1.16 for Americans. BLOOD SPECIMEN / Unknown 08/24/2017 23:16 EDT 08/24/2017 23:19 EDT Bella Solomon MD CHEMISTRY & BLOOD GA S ORDERABLES Performing Organization Address [facility] Co de Phone Number [facility] [address] [place] [address] * COMPLETE BLOOD COUNT (08/24/2017 23:16 EDT) WBC 9.13 4.0 - 10.4 K/cmm 08/25/2017 1:32 EDT [facility] RBC 4.47 4.36 - 5.78 M/cmm 08/25/2017 1:32 EDT [facility] Hemoglobin 13.8 13.8 - 17.3 gm/dl 08/25/2017 1:32 EDT [facility] HCT 40.5 39.5 - 50.2 % 08/25/2017 1:32 EDT [facility] MCV 91 81 - 95 fl 08/25/2017 1:32 EDT [facility] MCH 30.9 27.6 - 33.0 pg 08/25/2017 1:32 EDT [facility] MCHC 34.1 32.8 - 36.4 gm/dl 08/25/2017 1:32 EDT [facility] RDW-CV 12.5 <14.2 % 08/25/2017 1:32 EDT [facility] RDW-SD 41.3 <46.0 fl 08/25/2017 1:32 T [facility] PLT 234 141 - 377 K/cmm 08/25/2017 1:32 T [facility] MPV 10.4 9.5 - 12.7 fl 08/25/2017 1:32 EDT [facility] BLOOD SPECIMEN / Unknown 08/24/2017 23:16 EDT 08/24/2017 23:19 EDT Bella Solomon MD HEMATOLOGY & PF4 ORD ERABLES [facility] [address] [place] [address] * CALCIUM (08/24/2017 23:16 EDT) Calcium 8.6 8.5 - 10.5 mg/dl 08/25/2017 2:01 EDT [facility] Calculated Calcium 9.2 8.5 - 10.5 mg/dl 08/25/2017 2:01 EDT [facility] BLOOD SPECIMEN / Unknown 08/24/2017 23:16 EDT 08/24/2017 23:19 EDT Bella Solomon MD CHEMISTRY & BLOOD GA S ORDERABLES [facility] [address] [place] [address] * HOLD BLUE TOP (08/24/2017 23:16 EDT) Hold Blue Top Sample for coagulation will be discarded after 4 hours 08/24/2017 23:50 EDT [facility] Blood specimen (specimen) BLOOD SPECIMEN / Unknown 08/24/2017 23:16 EDT 08/24/2017 23:19 EDT Bella Solomon MD LAB INFO SERVICE AND SUPPORT & PHONE RESULT Performing Organization Address [facility]/ZIP Co de Phone Number [facility] [address] [place] [address] * HOLD SST (08/24/2017 23:16 EDT) Hold SST Hold for further testing. Specimen will be held for 5 days. 08/24/2017 23:11 EDT [facility] Blood specimen (specimen) BLOOD SPECIMEN / Unknown 08/24/2017 23:16 EDT 08/24/2017 23:19 EDT Bella Solomon MD LAB INFO SERVICE AND SUPPORT & PHONE RESULT Performing Organization Address [facility] Co de Phone Number [facility] [address] [place] [address] * HOLD LAVENDER TOP (08/24/2017 23:16 EDT) Hold Purple Top EDTA for hematology will be discarded after 48 hours, differential not available after 12 hours. 08/24/2017 23:11 EDT [facility] Blood specimen (specimen) BLOOD SPECIMEN / Unknown 08/24/2017 23:16 EDT 08/24/2017 23:19 EDT Bella Solomon MD LAB INFO SERVICE AND SUPPORT & PHONE RESULT Performing Organization Address [facility] Co de Phone Number [facility] [address] [place] [address] * (ABNORMAL) TROPONIN I (08/24/2017 23:16 EDT) Troponin I (ng/mL) 7.390(H) <0.034 ng/ml 08/24/2017 23:58 EDT [facility] Comment: The results of this assay can be falsely lowered due to the consumption of Biotin. Blood specimen (specimen) BLOOD SPECIMEN / Unknown 08/24/2017 23:16 EDT 08/24/2017 23:19 EDT Bella Solomon MD CHEMISTRY & BLOOD GA S ORDERABLES [facility] [address] [place] [address] documented in this encounter Visit Diagnoses Diagnosis NSTEMI (non-ST elevated myocardial infarction) ([facility])- Primary Acute myocardial infarction, subendocardial infarction, episode of care unspecified NSTEMI (non-ST elevated myocardial infarction) ([facility]) Acute myocardial infarction, subendocardial infarction, episode of care unspecified Tobacco abuse Tobacco use disorder CARLOTA (obstructive sleep apnea) Obstructive sleep apnea (adult) (pediatric) Type 2 diabetes mellitus, without long-term current use of insulin ([facility]) Hyperlipidemia Other and unspecified hyperlipidemia CAITLYN (acute kidney injury) ([facility]) Acute kidney failure, unspecified documented in this encounter Administered Medications Inactive Administered Medications - up to 3 most recent administrations Medication Order MAR Action Action Date Dose Rate Site acetaminophen (TYLENOL) tablet 650 mg 650 mg, oral, EVERY 4 HOURS PRN, Starting on Mon08/25/17 at 0236, Until 08/26/17 at 1539, Pain, Routine Given 08/25/2017 6:37 EDT 650 mg aspirin chewable 81 mg tablet 1 dose, Starting on Mon08/25/17 at 0946, Until 08/26/17 at 1539 aspirin chewable tablet oral, PRN, Starting on Mon08/25/17 at 0947, Until 08/25/17 at 0947, Routine Given 08/25/2017 9:47 EDT 81 mg aspirin EC tablet 81 mg 81 mg, oral, DAILY, First dose on Mon08/25/17 at 0900, Until Discontinued, Routine Given 08/26/2017 8:06 EDT 81 mg Given 08/25/2017 10:56 EDT 81 mg atorvastatin (LIPITOR) tablet 40 mg 40 mg, oral, DAILY, First dose on Mon08/25/17 at 0900, Until Discontinued, Routine Given 08/26/2017 8:07 EDT 40 mg Given 08/25/2017 10:56 EDT 40 mg clopidogrel (PLAVIX) tablet 300 mg 300 mg, oral, NOW X1, 1 dose, On Mon08/26/17 at 1030, STAT Given 08/26/2017 10:21 EDT 300 mg fentaNYL citrate (PF) 50 mcg/mL injection intravenous, PRN, Starting on Mon08/25/17 at 0906, Until Mon08/25/17 at 0906, Routine Given 08/25/2017 9:06 EDT 100 mcg heparin 1,000 unit/mL injection 3,300 Units 3,300 Units (rounded from 3,279.5 Units = 35 Units/kg ? 93.7 kg Adjusted weight), intravenous, NOW X1, 1 dose, On Mon08/25/17 at 0230, STAT Given 08/25/2017 2:31 EDT 3,300 Units heparin 1,000 unit/mL injection intravenous, PRN, Starting on Mon08/25/17 at 0923, Until Mon08/25/17 at 0923, Routine Given 08/25/2017 9:23 EDT 9,000 Units heparin in 1/2 NS 25,000 unit/250 mL infusion 15 Units/kg/hr ? 117.9 kg (17.685 mL/hr, rounded to 17.7 mL/hr), intravenous, CONTINUOUS, Starting on Mon08/25/17 at 0000, Until Mon08/25/17 at 0003, STAT New Bag 08/24/2017 23:56 EDT 15 Units/kg/hr 17.7 mL/hr heparin in 1/2 NS 25,000 unit/250 mL infusion 17 Units/kg/hr ? 93.7 kg Adjusted weight (15.929 mL/hr, rounded to 15.9 mL/hr), intravenous, CONTINUOUS, Starting on Mon08/25/17 at 0015, Until Mon08/25/17 at 1001, STAT Rate Documented 08/25/2017 3:30 EDT 17 Units/kg/hr 15.9 mL/hr Rate Change 08/25/2017 2:20 EDT 17 Units/kg/hr 15.9 mL/hr New Bag 08/25/2017 0:07 EDT 15 Units/kg/hr 14.1 mL/hr HYDROmorphone injection (DILAUDID) 0.5 mg/1 mL syringe 0.5 mg 0.5 mg, intravenous, EVERY 4 HOURS PRN, Starting on Mon08/25/17 at 0236, Until Mon08/25/17 at 1002, Pain, Routine Given 08/25/2017 2:52 EDT 0.5 mg HYDROmorphone injection (DILAUDID) 0.5 mg/1 mL syringe 1 mg 1 mg, intravenous, NOW X1, 1 dose, On Mon08/25/17 at 0130, STAT Given 08/25/2017 1:25 EDT 1 mg insulin aspart U-100 (NOVOLOG FLEXPEN) injection subcutaneous, EVERY 6 HOURS, First dose on Mon08/25/17 at 0245, Until Discontinued, Routine Given 08/25/2017 17:51 ED T 4 Units Given 08/25/2017 11:51 EDT 6 Units insulin aspart U-100 (NOVOLOG FLEXPEN) injection subcutaneous, 3 TIMES DAILY WITH MEALS, First dose on Mon08/26/17 at 0800, Until Discontinued, Routine Given 08/26/2017 8:24 EDT 4 Units lisinopril (PRINIVIL, ZESTRIL) tablet 2.5 mg 2.5 mg, oral, DAILY, First dose on Mon08/25/17 at 1545, Until Discontinued, Routine Given 08/26/2017 8:07 EDT 2.5 mg Given 08/25/2017 15:43 EDT 2.5 mg metoprolol (LOPRESSOR) tablet 12.5 mg 12.5 mg, oral, 2 TIMES DAILY, First dose on Mon08/25/17 at 0900, Until Discontinued, Routine Given 08/26/2017 8:06 EDT 12 .5 mg Given 08/25/2017 20:07 EDT 12.5 mg Given 08/25/2017 10:56 EDT 12.5 mg midazolam (PF) (VERSED) 1 mg/mL injection intravenous, PRN, Starting on Mon08/25/17 at 0905, Until Mon08/25/17 at 0905, Routine Given 08/25/2017 9:05 EDT 2 mg morphine injection 2 mg 2 mg, intravenous, NOW X1, 1 dose, On Mon08/25/17 at 0100, STAT Given 08/25/2017 1:02 EDT 2 mg nicotine (NICODERM CQ) 14 mg/24 hr patch 1 Patch 1 Patch, transdermal, DAILY, First dose on Mon08/25/17 at 1530, Until Discontinued, Routine Patch Applied 08/26/2017 8:07 EDT 1 Patch Left Ar m Patch Applied 08/25/2017 15:43 EDT 1 Patch L eft Arm nitroGLYCERIN (NITROSTAT) 0.4 mg SL tablet 1 dose, Starting on Mon08/25/17 at 0946, Until Mon08/26/17 at 1539 nitroGLYCERIN (NITROSTAT) SL tablet sublingual, PRN, Starting on Mon08/25/17 at 0948, Until Mon08/25/17 at 0948, Routine Given 08/25/2017 9:48 EDT 0.4 mg nitroglycerin 400 mcg/ml in D5W 250 ml infusion 5 mcg/min (0.75 mL/hr, rounded to 0.8 mL/hr), intravenous, CONTINUOUS, Starting on Mon08/25/17 at 0000, Until Mon08/25/17 at 0237, STAT Rate Change 08/25/2017 2:39 EDT 75 mcg/min 11.3 mL/hr Rate Change 08/25/2017 1:22 EDT 50 mcg/min 7.5 mL/hr Rate Change 08/25/2017 0:57 EDT 20 mcg/min 3 mL/hr nitroglycerin 400 mcg/ml in D5W 250 ml infusion 0.5-5 mcg/kg/min ? 117.9 kg (8.8425-88.425 mL/hr, rounded to 8.8-88.4 mL/hr), intravenous, CONTINUOUS, Starting on Mon08/25/17 at 0245, Until Mon08/25/17 at 1505, Routine Rate Documented 08/25/2017 6:20 EDT 75 mcg/min 11. 3 mL/hr Restarted 08/25/2017 3:04 EDT 75 mcg/min 11.3 mL/hr pantoprazole (PROTONIX) tablet 40 mg 40 mg, oral, DAILY, First dose on Mon08/25/17 at 0900, Until Discontinued Given 08/26/2017 8:07 EDT 40 mg Given 08/25/2017 10:56 EDT 40 mg sodium chloride 0.9 % (NS) infusion 1 mL/kg/hr ? 117.9 kg (117.9 mL/hr), intravenous, CONTINUOUS, Starting on Mon08/25/17 at 0700, Until Mon08/25/17 at 1655, Routine, Preprocedure New Bag 08/25/2017 10:56 EDT 1 mL/kg/hr 117.9 mL/hr sodium chloride 0.9 % flush 3 mL 3 mL, intravenous, EVERY 8 HOURS, First dose on Mon08/25/17 at 0245, Until Discontinued, Routine Given 08/26/2017 8:25 EDT 3 mL Given 08/25/2017 23:21 EDT 3 mL Given 08/25/2017 15:43 EDT 3 mL ticagrelor (BRILINTA) tablet 90 mg 90 mg, oral, 2 TIMES DAILY, First dose on Mon08/25/17 at 2100, Until Discontinued, Routine Given 08/26/2017 8:06 EDT 90 mg Given 08/25/2017 20:13 EDT 90 mg ticagrelor (BRILINTA) tablet oral, PRN, Starting on Mon08/25/17 at 0947, Until Mon08/25/17 at 0947, Routine Given 08/25/2017 9:47 EDT 180 mg documented in this encounter Discontinued Medications Medication Sig Discontinue Reason Start Date End Da te metoprolol XL (TOPROL-XL) 25 mg tablet Take 1 Tab by mouth daily. 08/26/2017 08/26/2017 lisinopril (PRINIVIL, ZESTRIL) 2.5 mg tablet Take 1 Tab by mouth daily. 08/26/2017 08/26/2017 ticagrelor (BRILINTA) 90 mg tablet Take 1 Tab by mouth 2 times daily. 08/26/2017 08/26/2017 aspirin 81 mg EC tablet Take 1 Tab by mouth daily. 08/27/2017 08/26/2017 atorvastatin (LIPITOR) 40 mg tablet Take 1 Tab by mouth daily. 08/26/2017 08/26/2017 atorvastatin (LIPITOR) 10 mg tablet Take 20 mg by mouth daily. 08/26/2017 ticagrelor (BRILINTA) 90 mg tablet Take 1 Tab by mouth 2 times daily. 08/25/2017 08/26/2017 documented as of this encounter Historical Medications * This list may reflect changes made after this encounter. Medication Sig Dispensed Refills Start Date End Date glipiZIDE (GLUCOTROL) 5 mg tablet Take 5 mg by mouth daily. omeprazole (PRILOSEC) 20 mg capsule Take 40 mg by mouth daily. 01/24/2019 atorvastatin (LIPITOR) 10 mg tablet Take 20 mg by mouth daily. 08/26/2017 metFORMIN (GLUCOPHAGE) 500 mg tablet Take 1,000 mg by mouth daily. 04/12/2019 added in this encounter Active and Recently Administered Medications Times are shown in EDT. Scheduled Medication Order 08/24/2017 08/25/2017 08/26/2017 aspirin EC tablet 81 mg 81 mg, oral, DAILY, First dose on Mon08/25/17 at 0900, Until Discontinued, Routine 1056 (Given - Provider: Manisha Hampton RN) 0806 (Given - Provider: Manisha Hampton RN) atorvastatin (LIPITOR) tablet 40 mg 40 mg, oral, DAILY, First dose on Mon08/25/17 at 0900, Until Discontinued, Routine 1056 (Given - Provider: Manisha Hampton RN) 0807 (Given - Provider: Manisha Hampton RN) clopidogrel (PLAVIX) tablet 300 mg (COMPLETED) 300 mg, oral, NOW X1, 1 dose, On Mon08/26/17 at 1030, STAT 1021 (Given - Provid er: Manisha Hampton RN) heparin 1,000 unit/mL injection 3,300 Units (COMPLETED) 3,300 Units (rounded from 3,279.5 Units = 35 Units/kg ? 93.7 kg Adjusted weight), intravenous, NOW X1, 1 dose, On Mon08/25/17 at 0230, STAT 0231 (Given - Provider: Belle Villar RN - Comment: PRN bolus per protocol) HYDROmorphone injection (DILAUDID) 0.5 mg/1 mL syringe 1 mg (COMPLETED) 1 mg, intravenous, NOW X1, 1 dose, On Mon08/25/17 at 0130, STAT 0125 (Given - Provider: Belle Villar RN) insulin aspart U-100 (NOVOLOG FLEXPEN) injection (CANCELED) subcutaneous, EVERY 6 HOURS, First dose on Mon08/25/17 at 0245, Until Discontinued, Routine 0647 (Hold - Provider: Frances Martin RN - Reason: NPO)1151 (Given - Provider: Manisha Hampton RN)1157 (Not Given - Provider: Manisha Hampton RN - Reason: NPO)1751 (Given - Provider: Manisha Hampton RN) insulin aspart U-100 (NOVOLOG FLEXPEN) injection subcutaneous, AT BEDTIME, First dose on Mon08/25/17 at 2100, Until Discontinued, Routine 2234 (Not Given - Provider: Carolyn Estevez RN - Reason: Order parameters not met) insulin aspart U-100 (NOVOLOG FLEXPEN) injection subcutaneous, 3 TIMES DAILY WITH MEALS, First dose on Mon08/26/17 at 0800, Until Discontinued, Routine 0824 (Given - Provid er: Manisha Hampton RN)1200 (Canceled Entry - Provider: Batch Job User Admin - Comment: Automatically canceled at discontinue of medication order) lisinopril (PRINIVIL, ZESTRIL) tablet 2.5 mg 2.5 mg, oral, DAILY, First dose on Mon08/25/17 at 1545, Until Discontinued, Routine 1543 (Given - Provider: Manisha Hampton RN) 0807 (Given - Provider: Manisha Hampton RN) metoprolol (LOPRESSOR) tablet 12.5 mg 12.5 mg, oral, 2 TIMES DAILY, First dose on Mon08/25/17 at 0900, Until Discontinued, Routine 1056 (Given - Provider: Manisha Hampton RN)2006 (Given - Provider: Carolyn Estevez RN) 08 (Given - Provider: Manisha Hampton RN) morphine injection 2 mg (COMPLETED) 2 mg, intravenous, NOW X1, 1 dose, On Mon08/25/17 at 0100, STAT 0102 (Given - Provider: Belle Villar RN) nicotine (NICODERM CQ) 14 mg/24 hr patch 1 Patch 1 Patch, transdermal, DAILY, First dose on Mon08/25/17 at 1530, Until Discontinued, Routine 1543 (Patch Applied - Provider: Manisha Hampton RN)2235 (Patch Removed - Provider: Carolyn Estevez RN) 08 (Patch Applied - Provider: Manisha Hampton RN)2100 (Due: Patch Removed - Provider: Manisha Hampton RN) pantoprazole (PROTONIX) tablet 40 mg 40 mg, oral, DAILY, First dose on Mon08/25/17 at 0900, Until Discontinued 1056 (Given - Provider: Manisha Hampton RN) 0807 (Given - Provider: Manisha Hampton RN) sodium chloride 0.9 % flush 3 mL 3 mL, intravenous, EVERY 8 HOURS, First dose on Mon08/25/17 at 0245, Until Discontinued, Routine 0242 (Given - Provider: Belle Villar RN)1056 (Given - Provider: Manisha Hampton RN)1543 (Given - Provider: Manisha Hampton RN)2321 (Given - Provider: Carolyn Estevez RN) 0825 (Given - Provider: Manisha Hampton RN) ticagrelor (BRILINTA) tablet 90 mg (CANCELED) 90 mg, oral, 2 TIMES DAILY, First dose on Mon08/25/17 at 2100, Until Discontinued, Routine 2012 (Given - Provider: Carolyn Estevez RN) 0806 (Given - Provider: Manisha Hampton RN) Continuous Medication Order 08/24/2017 08/25/2017 08/26/2017 heparin in 1/2 NS 25,000 unit/250 mL infusion (CANCELED) 15 Units/kg/hr ? 117.9 kg (17.685 mL/hr, rounded to 17.7 mL/hr), intravenous, CONTINUOUS, Starting on Mon08/25/17 at 0000, Until Mon08/25/17 at 0003, STAT 2356 (New Bag - Provider: Belle Villar RN - Comment: restarted heparin drip from [facility] begun at 1915.) 0007 (Completed - Provider: Belle Villar RN) heparin in 1/2 NS 25,000 unit/250 mL infusion (CANCELED) 17 Units/kg/hr ? 93.7 kg Adjusted weight (15.929 mL/hr, rounded to 15.9 mL/hr), intravenous, CONTINUOUS, Starting on Mon08/25/17 at 0015, Until Mon08/25/17 at 1001, STAT 0007 (New Bag - Provider: Belle Villar RN)0220 (Rate Change - Provider: Belle Villar RN)0330 (Rate Documented - Provider: Frances Martin RN)0852 (IV Stopped - Provider: Luis Ballard RN) nitroglycerin 400 mcg/ml in D5W 250 ml infusion (CANCELED) 5 mcg/min (0.75 mL/hr, rounded to 0.8 mL/hr), intravenous, CONTINUOUS, Starting on Mon08/25/17 at 0000, Until Mon08/25/17 at 0237, STAT 0006 (New Bag - Provider: Belle Villar, GUILLAUME)0029 (Rate Change - Provider: Belle Villar, GUILLAUME)0043 (Rate Change - Provider: Belle Villar RN)0057 (Rate Change - Provider: Belle Villar, GUILLAUME)0122 (Rate Change - Provider: Belle Villar, GUILLAUME)0239 (Rate Change - Provider: Amarilis Terrell, GUILLAUME)0304 (Completed - Provider: Belle Villar RN) nitroglycerin 400 mcg/ml in D5W 250 ml infusion (CANCELED) 0.5-5 mcg/kg/min ? 117.9 kg (8.8425-88.425 mL/hr, rounded to 8.8-88.4 mL/hr), intravenous, CONTINUOUS, Starting on Mon08/25/17 at 0245, Until Mon08/25/17 at 1505, Routine 0304 (Restarted - Provider: Belle Villar RN)0620 (Rate Documented - Provider: Frances Martin, GUILLAUME)0852 (IV Stopped - Provider: Luis Ballard RN) sodium chloride 0.9 % (NS) infusion ()(Linked Group 1) 1 mL/kg/hr ? 117.9 kg (117.9 mL/hr), intravenous, CONTINUOUS, Starting on Mon08/25/17 at 0700, Until Mon08/25/17 at 1655, Routine, Preprocedure 1056 (New Bag - Provider: Manisha Hampton, GUILLAUME) PRN Medication Order 08/24/2017 08/25/2017 08/26/2017 acetaminophen (TYLENOL) tablet 650 mg 650 mg, oral, EVERY 4 HOURS PRN, Starting on Mon08/25/17 at 0236, Until 08/26/17 at 1539, Pain, Routine 0637 (Given - Provider: Frances Martin, GUILLAUME) aspirin chewable tablet (COMPLETED) oral, PRN, Starting on Mon08/25/17 at 0947, Until Mon08/25/17 at 0947, Routine 0947 (Given - Provider: Altaf Becerra RN) calcium carbonate (TUMS) 200 mg calcium (500 mg) per chewable tablet tablet,chewable 1 Tab 1 Tablet, oral, 2 TIMES DAILY PRN, Starting on Mon08/25/17 at 0236, Until 08/26/17 at 1539, Heartburn, Routine dextrose 50 % solution 12.5 g 12.5 g (25 mL), intravenous, PRN, Starting on Mon08/25/17 at 0236, Until 08/26/17 at 1539, Low Blood Sugar, Routine fentaNYL citrate (PF) 50 mcg/mL injection (COMPLETED) intravenous, PRN, Starting on Mon08/25/17 at 0906, Until Mon08/25/17 at 0906, Routine 0906 (Given - Provider: Altaf Becerra RN - Comment: given in divded doses) glucagon injection 1 mg 1 mg, intramuscular, PRN, Starting on Mon08/25/17 at 0236, Until 08/26/17 at 1539, Low blood sugar, Routine heparin 1,000 unit/mL injection (COMPLETED) intravenous, PRN, Starting on Mon08/25/17 at 0923, Until Mon08/25/17 at 0923, Routine 0923 (Given - Provider: Altaf Becerra RN) HYDROmorphone injection (DILAUDID) 0.5 mg/1 mL syringe 0.5 mg (CANCELED) 0.5 mg, intravenous, EVERY 4 HOURS PRN, Starting on Mon08/25/17 at 0236, Until Mon08/25/17 at 1002, Pain, Routine 0252 (Given - Provider: Belle Villar RN) midazolam (PF) (VERSED) 1 mg/mL injection (COMPLETED) intravenous, PRN, Starting on Mon08/25/17 at 0905, Until Mon08/25/17 at 0905, Routine 0905 (Given - Provider: Altaf Becerra RN) nitroGLYCERIN (NITROSTAT) SL tablet (COMPLETED) sublingual, PRN, Starting on Mon08/25/17 at 0948, Until Mon08/25/17 at 0948, Routine 0948 (Given - Provider: Altaf Becerra RN) polyethylene glycol 3350 (MIRALAX) packet 17 g 17 g, oral, DAILY PRN, Starting on Mon08/25/17 at 0236, Until 08/26/17 at 1539, Constipation, Routine ramelteon (ROZEREM) tablet 8 mg 8 mg, oral, AT BEDTIME PRN, Starting on Mon08/25/17 at 0236, Until 08/26/17 at 1539, Sleep, Routine ticagrelor (BRILINTA) tablet (COMPLETED) oral, PRN, Starting on Mon08/25/17 at 0947, Until Mon08/25/17 at 0947, Routine 0947 (Given - Provider: Altaf Becerra RN) No Frequency Medication Order 08/24/2017 08/25/2017 08/26/2017 aspirin chewable 81 mg tablet 1 dose, Starting on Mon08/25/17 at 0946, Until 08/26/17 at 1539 nitroGLYCERIN (NITROSTAT) 0.4 mg SL tablet 1 dose, Starting on Mon08/25/17 at 0946, Until 08/26/17 at 1539 Linked Groups Order Group 1: sodium chloride 0.9 % (NS) infusion () 3 mL/kg/hr ? 117.9 kg (353.7 mL/hr), intravenous, CONTINUOUS, Starting on Mon08/25/17 at 0600, Until Mon08/25/17 at 0659, Routine, Preprocedure Followed by sodium chloride 0.9 % (NS) infusion ()Jump to med 1 mL/kg/hr ? 117.9 kg (117.9 mL/hr), intravenous, CONTINUOUS, Starting on Mon08/25/17 at 0700, Until Mon08/25/17 at 1655, Routine, Preprocedure documented in this encounter Orders Medications Ordered That Ankur ht Not Have Been Administered Count Last Ordered Date First Ordered Date aspirin chewable 81 mg tablet 1 08/25/2017 calcium carbonate (TUMS) 200 mg calcium (500 mg) per chewable tablet tablet,chewable 1 Tab 1 08/25/2017 clopidogrel (PLAVIX) tablet 75 mg 1 018 dextrose 50 % solution 12.5 g 1 08/25/2017 fentaNYL citrate (PF) 50 mcg/mL injection 1 08/25/2017 glucagon injection 1 mg 1 08/25/2017 heparin 1,000 unit/mL injection 1 8 heparin 1,000 unit/mL inject ion 3,300 Units 1 08/25/2017 heparin 1,000 unit/mL inject ion 6,600 Units 1 08/25/2017 heparin 1000 unit/ml syringe 1 08/25/2017 HYDROmorphone injection (DIL AUDID) 0.5 mg/1 mL syringe 1 08/25/2017 insulin aspart U-100 (NOVOLO G FLEXPEN) injection 2 08/25/2017 lidocaine 20 mg/mL (2 %) injection 1 2017 midazolam (PF) (VERSED) 1 mg/mL injection 1 08/25/2017 morphine 2 mg/mL injection 1 08/25/2017 nitroGLYCERIN (NITROSTAT) 0.4 mg SL tablet 1 08/25/2017 nitroglycerin 100 mcg/mL syringe 1 08/26/19 18 polyethylene glycol 3350 (MS RALAX) packet 17 g 1 08/25/2017 ramelteon (ROZEREM) tablet 8 mg 1 8 sodium chloride 0.9 % (NS) infusion 1 08/25 ticagrelor (BRILINTA) 90 mg tablet 1 2017 verapamil (ISOPTIN) 2.5 mg/mL injection 1 0 08/25/2017 Diet Count Last Ordered Date First Orde red Date DISCHARGE DIET 4 08/25/2017 Nursing Count Last Ordered Date First Orde red Date ACTIVITY INSTRUCTIONS 2 08/25/2017 BATHING INSTRUCTIONS 2 08/25/2017 PATIENT AT LOW RISK FOR VTE: RISK OF MECHANICAL PROPHYLAXIS OUTWEIGHS 08/25/2017 PATIENT AT LOW RISK FOR VTE: RISK OF PHARMACOLOGIC PROPHYLAXIS OUTWEIG 1 08/25/2017 VTE PHARMACOLOGIC PROPHYLAXI S CURRENTLY ORDERED OR ON ALTERNATIVE THER 1 08/25/2017 WOUND CARE INSTRUCTIONS 2 08/25/2017 HEIGHT AND WEIGHT 1 08/24/2017 Consult Count Last Ordered Date First Orde red Date CONSULT SMOKING CESSATION 2 08/25/2017 Admission Count Last Ordered Date First Orde red Date ED BED REQUEST 1 08/25/2017 STATUS: INPATIENT ACUTE ADMISSION 1 018 Transfer Count Last Ordered Date First Orde red Date NOTIFY PPS OF DISCHARGE COMPLETE 1 08/27/19 18 PPS NOTIFICATION OF PATIENT ARRIVAL ON UNIT 1 08/25/2017 UR PATIENT STATUS CHANGE 1 08/25/2017 Discharge Count Last Ordered Date First Orde red Date DISCHARGE PATIENT 1 08/26/2017 Legal Count Last Ordered Date First Orde red Date MISCELLANEOUS DISCHARGE INSTRUCTIONS 6 08/11 documented in this encounter Care Teams Passenger Agent Relationship Specialty Start Date End Date Altaf Hoover MD PCP - General 11/12/15 04/12/20 documented as of this encounter
--- OUTSIDE RECORDS SUMMARY | 2023-10-24 16:02 | XMS_ITS | Encounter Summary ---
Author Organization [facility] Address [address] [place] [address] Care Team Providers Care Physician Support Coordinator Name Role Phone Altaf Hoover MD Primary Care Provider [phone] Sae Marr MD Primary Care Provider [phone] Encounter Details Date Type Department Care Team (Late st Contact Info) Description 04/09/2020 Lab Requisition [facility] - [address] [id number] Outr Resulting Lab, Provider Social History Tobacco [...] Yes 04/12/2019 Cognitive Status Response Date of Assess ent Because of a physical, menta l, or emotional condition, does this person have serious difficulty concentrating, remembering, or making decisions? Yes 04/12/2019 documented as of this encounter Plan of Treatment Not on file documented as of this encounter Procedures Procedure Name Priority Date/Time Associated Diagnosis Comments ZZCOVID-19 TEST [facility] PCR Today 04/09/2020 8:53 EST COVID-19 TESTING Routine 04/09/2020 8:53 EST documented in this encounter Results * COVID-19 TEST [facility] PCR (04/09/2020 8:53 EST) Swab ENTIRE NASOPHARYNX / Unknown 04/09/2020 8:53 EST 04/09/2020 15:58 EST Provider Outr Resulting Lab MICROBIOLOGY - GENERAL ORDERABLES Performing Organization Address City/State/[facility] Co de Phone Number [facility] [address] [place] [id number] * COVID-19 TESTING (04/09/2020 8:53 EST) COVID-19 rt-PCR Result Negative Negative 04/10/2020 13:33 EST [facility] Comment: This test has not been FDA cleared or approved. This test has been authorized by FDA under an EUA for use by authorized laboratories. This test has been authorized only for detection of nucleic acid from 2019-nCoV, not for any other viruses or pathogens. This test is only authorized for the duration of the declaration that circumstances exist justifying the authorization of emergency use of in vitro diagnostic tests for detection and/or diagnosis of 2019-nCoV under section 564(b)(1) of Act, 21 U.S.C ?? 360bbb-3(b) (1), unless the authorization is terminated or revoked sooner. Negative results do not preclude 2019-nCoV infection and should not be used as the sole basis for treatment or other patient management decisions. Negative results must be combined with clinical observations, patient history, and epidemiological information. This test was developed and its performance characteristics determined by [facility]. It has not been cleared or approved by the US Food and Drug Administration. FDA does not require this test to go through premarket FDA review. This test is used for clinical purposes. It should not be regarded as investigational or for research. This laboratory is certified under the Clinical Laboratory Improvement Amendments (CLIA) as qualified to perform high complexity clinical laboratory testing. This test is based on the [facility] COVID-19 Emergency Use Authorization (EUA) assay, with minor modification as defined by the FDA Performed on the [employer] Flex RT-PCR System. Performing Lab [facility] 04/10/2020 13:33 EST [facility] Swab 04/09/2020 8:53 EST 04/09/2020 15:58 EST Provider Outr Resulting Lab MICROBIOLOGY - GENERAL ORDERABLES Performing Organization Address City/State/[facility] Co de Phone Number [facility] [address] [place] [address] documented in this encounter Visit Diagnoses Not on filedocumented in this encounter Care Teams Physician Support Coordinator Relationship Specialty Start Date End Date Altaf Hoover MD PCP - General 11/12/15 04/12/20 Sae Marr MD PCP - General Family Medicine - Primary Care 04/13/20 documented as of this encounter
--- OUTSIDE RECORDS SUMMARY | 2023-10-24 16:02 | XMS_ITS | Encounter Summary ---
Author Organization [facility] Address [address] [place] [address] Care Team Providers Care Inseam Leveler Name Role Phone Altaf Hoover MD Primary Care Provider [phone] Reason for Visit * Reason Comments Follow-up Coronary Artery Disease Encounter Details Date Type Department Care Team (Late st Contact Info) Description 04/12/2019 9:30 EST Office Visit [facility] [address] [place] [address] Jg Stubbs MD [address] [facility] [address] [place] [address] Atypical angina (HCC-CMS) (Primary Dx); Pre-op evaluation; H/O non-ST elevation myocardial infarction (NSTEMI); H/O heart artery stent; Type 2 diabetes mellitus without complication, without long-term current use of insulin (HCC-CMS); Smoker; FH: premature coronary heart disease; CARLOTA (obstructive sleep apnea); PUD (peptic ulcer disease) Social History Tobacco Use Types Packs/Day Years [...] Yes 04/12/2019 documented as of this encounter Progress Notes * Jg Stubbs MD - 04/12/2019 0930 EST Cardiology Follow-up Visit Date of Service: 04/12/2019 Reason for Visit: Atypical angina ([facility]) [I20.8] Primary Care Provider: Altaf Hoover Subjective Patient ID: Samy Patricio, 1965 History of [...] the 04/12/19 encounter (Office Visit) with Jg Stubsb MD Medication Sig ??? aspirin 81 mg [...] Vaping. Occasional ETOH. Family History: Mother w/ [place] in her 50's, father w/ [place] in his 50's, brother w/ [place] in his 40's. Objective Vital Signs: Blood [...] HGBA1C 9.6 08/24/2017 Assessment 1. Atypical angina ([facility]) 2. Pre-op evaluation 3. H/O non-ST elevation myocardial infarction (NSTEMI) 4. H/O heart artery stent 5. Type 2 diabetes mellitus without complication, without long-term current use of insulin ([facility]) 6. Smoker 7. FH: premature coronary heart disease 8. CARLOTA (obstructive sleep apnea) 9. PUD (peptic ulcer disease) Completely revascularized, good biventricular function, normal, low risk stress test 04/2018. Stableatypical angina, probably vasospasm or GI. Able to achieve at least 4 METS . Good blood pressure control. No heart failure. No up-to-date lipid profile or A1c. No active prohibitive cardiac conditions. [...] this encounter Visit Diagnoses Diagnosis Atypical angina ([facility])- Primary Other and unspecified angina pectoris Pre-op evaluation Preoperative examination, unspecified H/O non-ST elevation myocardial infarction (NSTEMI) Old myocardial infarction H/O heart artery stent Postsurgical percutaneous transluminal coronary angioplasty status Type 2 diabetes mellitus without complication, without long-term current use of insulin ([facility]) Smoker Tobacco use disorder FH: premature coronary heart disease Family history of ischemic heart disease CARLOTA (obstructive sleep apnea) Obstructive sleep apnea (adult) (pediatric) PUD (peptic ulcer disease) Peptic ulcer, unspecified site, unspecified as acute or chronic, without mention of hemorrhage, perforation, or obstruction documented in this encounter Discontinued Medications Medication Sig Discontinue Reason Start Date End Da te metFORMIN (GLUCOPHAGE) 500 mg tablet Take 1,000 mg by mouth daily. 04/12/2019 documented as of this encounter Historical Medications * This list may reflect changes made after this encounter. Medication Sig Dispensed Refills Start Date End Date lancets 33 gauge misc Lancets MISC USE DIRECTED. Active BD ULTRA-FINE MINI PEN NEEDLE 03/19/2019 VICTOZA 2-CHRIS 0.6 mg/0.1 mL (18 mg/3 mL) injectable pen 03/19/2019 metFORMIN (GLUCOPHAGE-XR) 500 mg ER tablet TAKE FOUR TABLETS BY MOUTH EVERY DAY 04/07/2019 glipiZIDE (GLUCOTROL) 10 mg tablet Take 10 mg by mouth 2 times daily. 02/12/2019 added in this encounter Care Teams Inseam Leveler Relationship Specialty Start Date End Date Altaf Hoover MD PCP - General 11/12/15 04/12/20 documented as of this encounter
--- OUTSIDE RECORDS SUMMARY | 2023-10-24 16:02 | XMS_ITS | Encounter Summary ---
Author Organization [facility] Address [address] [place] [address] Care Team Providers Care Trials Manager Name Role Phone Unavailable Primary Care Provider Unavailabl e Encounter Details Date Type Department Care Team (Latest Contact Info) Description 11/20/2000 11:16 EDT - 11/20/2000 11:59 EDT Hospital Encounter [facility] - Other [address] [place] [address] José Miguel Crain MD [address] [place] [id number] Unknown, MD Derrell Discharge Disposition: Auto Discharge Social History Tobacco [...]
--- OUTSIDE RECORDS SUMMARY | 2023-10-24 16:02 | XMS_ITS | Encounter Summary ---
Author Organization [facility] Address [address] [place] [address] Care Team Providers Care Sawyer Cork Slabs Name Role Phone Sae Marr MD Primary Care Provider Encounter Details Date Type Department Care Team (Late st Contact Info) Description 05/11/2023 Lab Requisition [facility] Pathology & Laboratory Medicine - [address] [address] Chang Martel MD [address] [place] [phone] Polyp of colon Social History Tobacco Use Types Packs/Day Years [...] Priority Date/Time Associated Diagnosis Comments SURGICAL PATHOLOGY Today 05/11/2023 9:23 EST Polyp of colon documented in this encounter Results * SURGICAL PATHOLOGY (05/11/2023 9:23 EST) Note to Patient The following pathology results have been interpreted by your pathologist and may be available to you before your health provider has had the opportunity to review them. Please allow time for your provider to receive these results and explore management options, if applicable. 05/12/2023 14:31 [facility] Final Diagnosis A. STOMACH, ANTRUM, BIOPSY: - Antral mucosa without significant diagnostic abnormality. - No histologic evidence of Helicobacter organisms. B. ESOPHAGUS, DISTAL, BIOPSY: - Inflamed squamocolumnar junctional mucosa, negative for intestinal metaplasia and dysplasia. C. COLON, TRANSVERSE, POLYP X 1, BIOPSY: - Tubular adenoma. D. COLON, DESCENDING, POLYP X 1, BIOPSY: - Tubular adenoma. E. COLON, SIGMOID, BIOPSY: - Colonic mucosa with hyperplastic changes. F. RECTUM, POLYP X1, BIOPSY: - Hyperplastic polyp fragments. G. RECTUM, POLYP X2, BIOPSY: - Hyperplastic polyp. 05/12/2023 14:31 [facility] Attestation By the signature below, the attending physician certifies that they have 1) personally conducted a gross and/or microscopic examination of the described specimen(s), and/or personally interpreted the results of laboratory testing of the described specimen(s), and 2) personally rendered or confirmed the above diagnosis. 05/12/2023 14:31 [facility] at 1431 Clinical History GERD, Diaz's esophagus, hx colon polyps, hiatal hernia, rectal polyps 05/12/2023 14:31 [facility] Gross Description A. Received in formalin labelled with proper patient identification (initials S, P) and antrum bx is a figueroa-pink tissue measuring 0.7 x 0.3 x 0.1 cm. Submitted intact in A1. B. Received in formalin labelled with proper patient identification (initials S, P) and distal esophagus is a pink-white tissue measuring 0.6 x 0.2 x 0.1 cm. Submitted intact in B1. C. Received in formalin labelled with proper patient identification (initials S, P) and transverse colon polyp x1 is a figueroa-pink polypoid tissue measuring 0.7 x 0.6 x 0.2 cm. Bisected and submitted entirely in C1. D. Received in formalin labelled with proper patient identification (initials S, P) and descending colon polyp x1 are 2 figueroa-pink tissues measuring 0.3 x 0.2 x 0.1 cm and 0.6 x 0.4 x 0.2 cm. Submitted intact in D1. E. Received in formalin labelled with proper patient identification (initials S, P) and sigmoid bx is a figueroa-pink tissue measuring 0.6 x 0.1 x 0.1 cm. Submitted intact in E1. F. Received in formalin labelled with proper patient identification (initials S, P) and rectal polyp x1 is a figueroa-pink polypoid tissue measuring 0.6 x 0.2 x 0.1 cm. Submitted intact in F1. G. Received in formalin labelled with proper patient identification (initials S, P) and rectal polyp x2 is a single figueroa-pink polypoid tissue measuring 0.3 x 0.3 x 0.1 cm. Submitted intact in G1. ISABELLE CASAS(ASCP) 05/11/2023 17:58 05/12/2023 14:31 [facility] Performing Lab [facility] 05/12/2023 14:31 [facility] Scanned Images 05/12/2023 14:31 [facility] Tissue SPECIMEN FROM RECTUM / Unknown 05/11/2023 9:23 EST 05/11/2023 17:02 EST Tissue specimen (specimen) ESOPHAGEAL STRUCTURE / Unknown 05/11/2023 9:23 EST 05/11/2023 17:02 EST Tissue specimen (specimen) TRANSVERSE COLON STRUCTURE / Unknown 05/11/2023 9:23 EST 05/11/2023 17:02 EST Tissue specimen (specimen) DESCENDING COLON STRUCTURE / Unknown 05/11/2023 9:23 EST 05/11/2023 17:02 EST Tissue specimen (specimen) SIGMOID COLON STRUCTURE / Unknown 05/11/2023 9:23 EST 05/11/2023 17:02 EST Tissue specimen (specimen) SPECIMEN FROM RECTUM / Unknown 05/11/2023 9:23 EST 05/11/2023 17:02 EST Tissue specimen (specimen) SPECIMEN FROM RECTUM / Unknown 05/11/2023 9:23 EST 05/11/2023 17:02 EST Chang Martel MD PATHOLOGY ORDERABLES Performing Organization Address City/State/[facility] Co de Phone Number [facility] [address] [place] [address] documented in this encounter Visit Diagnoses Diagnosis Polyp of colon Benign neoplasm of colon documented in this encounter Care Teams Sawyer Cork Slabs Relationship Specialty Start Date End Date Sae Marr MD PCP - General Family Medicine - Primary Care 04/13/20 documented as of this encounter
--- OUTSIDE RECORDS SUMMARY | 2023-10-24 16:02 | XMS_ITS | Encounter Summary ---
Author Organization [facility] Address [address] [place] [address] Care Team Providers Care Flight Communications Officer Name Role Phone Unavailable Primary Care Provider Unavailabl e Encounter Details Date Type Department Care Team (Latest Contact Info) Description 10/24/2000 19:26 EDT Hospital Encounter [facility] - Other [address] [place] [address] Enrique Crain MD [address] [phone] Unknown, MD Derrell Discharge Disposition: Auto Discharge [...] Procedure Name Priority Date/Time Associated Diagnosis Comments CHEST PA AND LATERAL Routine 11/16/2000 16:22 EDT HEMAGRAM & DIFF Routine 10/24/2000 16:25 EDT SYPHILIS IGG AB WITH REFLEX, SERUM Routine 10/24/2000 16:25 EDT SED RATE Routine 10/24/2000 16:25 EDT SYPHILIS SERO (RPR) Routine 10/24/2000 1 6:25 EDT ANGIOTENSIN CONVERTING ENZYME (CHRIS) Routine 10/24/2000 16:25 EDT ANTI NUCLEAR AB (KANDI), IFA Routine 10/24/2000 16:25 EDT documented in this encounter Results * CHEST PA AND LATERAL (11/16/2000 16:22 EDT) Anatomical Region Laterality Modality Other 11/16/2000 16:2 2 EDT Narrative 01/30/2009 1:39 EST TRANSIENT VISUAL LOSS WITH VISUAL FIELD DEFECT, INCREASED AGE R/O GRANULOMATOUS PROCESS PA AND LATERAL CHEST 11/16/2000 16:22 FINDINGS: There are no bony or soft tissue abnormalities. The heart and mediastinal silhouette is normal in size. There is a diffuse interstitial reticular pattern in the lungs. Both autumn show unusual prominence and possible nodularity suggestive of lymphadenopathy. These findings are consistent with sarcoid. IMPRESSION: Sarcoidosis, which should be confirmed with high-resolution CT. /[facility] Addendum: The ICD9/diagnostic code has been changed from 368.12 to 135. for physician billing. The text has not been altered. Procedure Note Armaan Torrez MD / Abel Hallman MD - 01/30/2009 TRANSIENT VISUAL LOSS WITH VISUAL FIELD DEFECT, INCREASED AGE R/O GRANULOMATOUS PROCESS PA AND LATERAL CHEST 11/16/2000 16:22 FINDINGS: There are no bony or soft tissue abnormalities. The heart and mediastinal silhouette is normal in size. There is a diffuse interstitial reticular pattern in the lungs. Both autumn show unusual prominence and possible nodularity suggestive of lymphadenopathy. These findings are consistent with sarcoid. IMPRESSION: Sarcoidosis, which should be confirmed with high-resolution CT. /[facility] Addendum: The ICD9/diagnostic code has been changed from 368.12 to 135. for physician billing. The text has not been altered. Justin Poon MD IMG DIAGNOSTIC IMAGI NG ORDERABLES * SED. RATE:WESTERGREN (10/24/2000 16:25 EDT) Sed. Rate Westergren 15 0 - 15 mm/hr [facility] 10/24/2000 16:2 5 EDT 10/24/2000 16:33 EDT Enrique Crain MD HEMATOLOGY & PF4 ORD ERABLES Performing Organization Address [facility] Co de Phone Number [facility] [address] [place] [address] * SYPHILIS SERO (RPR) (10/24/2000 16:25 EDT) Syphilis Sero (RPR) NONREACT. NR Dils [facility] 10/24/2000 16:2 5 EDT 10/24/2000 16:33 EDT Enrique Crain MD IMMUNOLOGY AND SEROL OGY ORDERABLES Performing Organization Address [facility] Phone Number [facility] [address] [place] [address] * SYPHILIS AB IGG, IGM (10/24/2000 16:25 EDT) Pathologist [facility] RPR SL NONREACT. [facility] FTA NONREACT. Assayed by [facility], [place], [place] [facility] 10/24/2000 16:2 5 EDT 10/24/2000 16:33 EDT Enrique Crain MD IMMUNOLOGY AND SEROL OGY ORDERABLES Performing Organization Address [facility] Co de Phone Number [facility] [address] [place] [address] * (ABNORMAL) HEMAGRAM & DIFF (10/24/2000 16:25 EDT) WBC 11.75(H) 4.0 - 10.4 K/cmm [facility] RBC 5.41 4.36 - 5.78 M/cmm [facility] Hemoglobin 16.5 13.8 - 17.3 gm/dl [facility] HCT 47.2 39.5 - 50.2 % [facility] MCV 87 81 - 95 fl [facility] MCH 30.5 27.6 - 33.0 pg [facility] MCHC 35.0 32.8 - 36.4 gm/dl [facility] PLT 269 141 - 320 K/cmm [facility] RDW-CV 12.4 11.8 - 14.1 % [facility] % Neutrophils 65.9 45.5 - 79.7 % [facility] % Lymphocytes 26.4 15.0 - 46.8 % [facility] % Monocytes 5.5 1.8 - 12.0 % [facility] % Eosinophils 1.9 0.6 - 6.9 % [facility] % Basophils 0.3 0.2 - 1.4 % [facility] ABS Neutrophils 7.75 2.20 - 8.85 K/cmm [facility] ABS Lymphs 3.10 1.09 - 3.30 K/cmm [facility] ABS Monocytes 0.64 0.1 - 0.8 K/cmm [facility] ABS Eosinophils 0.22 0.03 - 0.61 K/cmm [facility] ABS Basophils 0.04 0.01 - 0.11 K/cmm [facility] Type of Diff: Automated [facility] 10/24/2000 16:2 5 EDT 10/24/2000 16:33 EDT Enrique Crani MD HISTORICAL LAB FOR S Q LOAD [facility] [address] [place] [address] * (ABNORMAL) ANGIOTENSIN CONVERTING ENZYME (CHRIS) (10/24/2000 16:25 EDT) Angiotensin Converting Enzyme 57Unit: U/L ??(Note) -- EXPECTED VALUES -- ? (Ref Range) 7 to 46 ? The use of CHRIS-inhibiting anti-hypertensi ve drugs will cause ? decreased angiotensin converting enzyme values. ? TEST PERFORMED OR REFERRED BY [facility] ? [facility] ? [address] ? [place], [place] ??[address] ?(H) [facility] 10/24/2000 16:2 5 EDT 10/24/2000 16:33 EDT Enrique Crain MD CHEMISTRY & BLOOD GA S ORDERABLES Performing Organization Address [facility] de Phone Number [facility] [address] [place] [address] * ANTI NUCLEAR ANTIBODY (10/24/2000 16:25 EDT) Anti Nuclear Ab <40 0 - 40 Dils [facility] 10/24/2000 16:2 5 EDT 10/24/2000 16:33 EDT Enrique Crain MD IMMUNOLOGY AND SEROL OGY ORDERABLES Performing Organization Address [facility] de Phone Number [facility] [address] [place] [phone] documented in this encounter Visit Diagnoses Not on filedocumented in this encounter
--- OUTSIDE RECORDS SUMMARY | 2023-10-24 16:02 | XMS_ITS | Encounter Summary ---
Author Organization [facility] Address [address] [place] [address] Care Team Providers Care Physician Anesthesiologist Name Role Phone Altaf Hoover MD Primary Care Provider [phone] Sae Marr MD Primary Care Provider [phone] Encounter Details Date Type Department Care Team (Late st Contact Info) Description 08/05/2019 Lab Requisition [facility] Pathology & Laboratory Medicine - [facility] [address] [place], [place] [id number] Outr Resulting Lab, Provider Social History Tobacco [...] Priority Date/Time Associated Diagnosis Comments ZZCOVID-19 TEST [facility] PCR Today 08/05/2019 11:13 EDT COVID-19 TESTING Routine 08/05/2019 11:1 3 EDT documented in this encounter Results * COVID-19 TEST [facility] PCR (08/05/2019 11:13 EDT) Swab ENTIRE NASOPHARYNX / Unknown 08/05/2019 11:13 EDT 08/05/2019 19:48 EDT Provider Outr Resulting Lab MICROBIOLOGY - GENERAL ORDERABLES [facility] [address] [place] [address] * COVID-19 TESTING (08/05/2019 11:13 EDT) COVID-19 rt-PCR Result Negative Negative 08/06/2019 3:15 EDT [facility] Comment: This test has [...] clinical observations, patient history, and epidemiological information. Performed on the [employer] instrument Performing Lab [facility] 08/06/2019 3:15 EDT [facility] Swab ENTIRE NASOPHARYNX / Unknown 08/05/2019 11:13 EDT 08/05/2019 19:48 EDT Provider Outr Resulting Lab MICROBIOLOGY - GENERAL ORDERABLES [facility] [address] [place] [address] documented in this encounter Visit Diagnoses Not on filedocumented in this encounter Care Teams Physician Anesthesiologist Relationship Specialty Start Date End Date Altaf Hoover MD PCP - General 11/12/15 04/12/20 Sae Marr MD PCP - General Family Medicine - Primary Care 04/13/20 documented as of this encounter
--- OUTSIDE RECORDS SUMMARY | 2023-10-24 16:02 | XMS_ITS | Encounter Summary ---
Author Organization [facility] Address [address] [place] [address] Care Team Providers Care Lay Ups Assembler Name Role Phone Sae Marr MD Primary Care Provider [phone] Encounter Details Date Type Department Care Team (Late st Contact Info) Description 04/13/2020 Lab Requisition [facility] Pathology & Laboratory Medicine - [address] [address] Gale Calderon MD [address] [place] [address] [place], [place] [phone] Encounter for other general examination Social History Tobacco Use Types Packs/Day Years [...] Date/Time Associated Diagnosis Comments SURGICAL PATHOLOGY Today 04/13/2020 13 :17 EST Encounter for other general examination documented in this encounter Results * SURGICAL PATHOLOGY (04/13/2020 13:17 EST) Final Diagnosis A. GASTROESOPHAGEAL JUNCTION, BIOPSY: - Mild chronic inflammation of squamocolumnar mucosa. - Mild to moderate parietal cell hyperplasia. - Negative for intestinal metaplasia and dysplasia. B. RECTUM, POLYPS X11, BIOPSY: - Hyperplastic polyps. C. COLON, SIGMOID, POLYPS X6, BIOPSY: - Hyperplastic polyps. D. COLON, CECUM, POLYP, BIOPSY: - Tubular adenoma. E. COLON, ASCENDING, POLYPS X2, BIOPSY: - Tubular adenomas. F. COLON, TRANSVERSE, POLYPS X4, BIOPSY: - Tubular adenomas. - Consistent with sessile serrated adenoma(s). G. COLON, DESCENDING, POLYPS X2, BIOPSY: - Hyperplastic polyps. 04/15/2020 11:56 [facility] Attestation By the signature below, the attending physician certifies that they have 1) personally conducted a gross and/or microscopic examination of the described specimen(s), and/or personally interpreted the results of laboratory testing of the described specimen(s), and 2) personally rendered or confirmed the above diagnosis. 04/15/2020 11:56 [facility] at 1156 Clinical History Bloating, GERD, h/o Diaz's, abdominal pain 04/15/2020 11:56 [facility] Gross Description A. Received in formalin labelled with proper patient identification (initials S, P) and Bx GE junction are two figueroa focally brown tissues (0.5 x 0.3 x 0.2 cm and 0.4 x 0.3 x 0.2 cm). Entirely submitted in A1. B. Received in formalin labelled with proper patient identification (initials S, P) and Rectal polyps x11 are thirteen pale-figueroa tissues (0.5 x 0.2 x 0.1 cm to 0.2 x 0.1 x 0.1 cm). Entirely submitted in B1-B3. C. Received in formalin labelled with proper patient identification (initials S, P) and sigmoid polyps x6 are six figueroa-brown tissues (0.4 x 0.2 x 0.2 cm to 0.2 x 0.2 x 0.1 cm). Entirely submitted in C1-C2. D. Received in formalin labelled with proper patient identification (initials S, P) and cecal polyp are three figueroa tissues (0.4 x 0.2 x 0.1 cm to 0.2 x 0.2 x 0.2 cm). Entirely submitted in D1. E. Received in formalin labelled with proper patient identification (initials S, P) and ascending colon polyps x2 are five figueroa-yellow tissues (0.4 x 0.2 x 0.2 cm to 0.2 x 0.2 x 0.1 cm). Entirely submitted in E1. F. Received in formalin labelled with proper patient identification (initials S, P) and transverse colon polyps x4 are six figueroa-brown tissues (0.6 x 0.4 x 0.2 cm to 0.3 x 0.2 x 0.2 cm). Entirely submitted in F1-F2. G. Received in formalin labelled with proper patient identification (initials S, P) and descending colon polyps x2 are six figueroa-brown tissues (0.0 x 0.5 x 0.4 cm to 0.3 x 0.2 x 0.2 cm). The largest tissue is bisected and submitted in G1, and the remaining tissues are submitted intact in G2-G3. Darryn Up 04/14/2020 9:06 04/15/2020 11:56 [facility] Performing Lab [facility] 11:56 [facility] Scanned Images 04/15/2020 11:56 [facility] Tissue DESCENDING COLON STRUCTURE / Unknown 04/13/2020 13:17 EST 04/13/2020 22:03 EST Tissue specimen (specimen) SPECIMEN FROM RECTUM / Unknown 04/13/2020 13:17 EST 04/13/2020 22:03 EST Tissue specimen (specimen) SIGMOID COLON STRUCTURE / Unknown 04/13/2020 13:17 EST 04/13/2020 22:03 EST Tissue specimen (specimen) CECUM STRUCTURE / Unknown 04/13/2020 13:17 EST 04/13/2020 22:03 EST Tissue specimen (specimen) ASCENDING COLON STRUCTURE / Unknown 04/13/2020 13:17 EST 04/13/2020 22:03 EST Tissue specimen (specimen) TRANSVERSE COLON STRUCTURE / Unknown 04/13/2020 13:17 EST 04/13/2020 22:03 EST Tissue specimen (specimen) DESCENDING COLON STRUCTURE / Unknown 04/13/2020 13:17 EST 04/13/2020 22:03 EST Gale Calderon MD PATHOLOGY ORDERA [facility] Organization Address City/State/ZIP Co de Phone Number [facility] [address] [place] [address] documented in this encounter Visit Diagnoses Diagnosis Encounter for other general examination documented in this encounter Care Teams Lay Ups Assembler Relationship Specialty Start Date End Date Sae Marr MD PCP - General Family Medicine - Primary Care 04/13/20 documented as of this encounter
--- OUTSIDE RECORDS SUMMARY | 2023-10-24 16:02 | XMS_ITS | Encounter Summary ---
Author Organization [facility] Address [address] [place] [address] Care Team Providers Care Mine Inspector Name Role Phone Derrick Melara MD Primary Care Provider [phone] Encounter Details Date Type Department Care Team (Late st Contact Info) Description 09/25/2012 Results Only [facility] Laboratory Services - [facility] ([facility] [place] [address] [place], [place] [id number] Mendoza Beatty, [address] [facility] ,[address] [place], [place] [address] Social History Tobacco Use Types Packs/Day Years [...] Date/Time Associated Diagnosis Comments SURGICAL PATHOLOGY Routine 09/25/2012 8:39 EDT documented in this encounter Results * SURGICAL PATHOLOGY (09/25/2012 8:39 EDT) Pathology Report: SURGICAL PATHOLOGY REPORT Reports generated via electronic interface contain original data; however they are lacking the format of the original report. Caution should be taken when reading/interpreti ng unformatted reports. Name: ? SAMY PATRICIO ? Accession #: ? [id number] ? : ? 1965 (Age: 46) ??M ? Collect Date: ? 09/25/2012 ? Location: ? [facility] ? Receive Date: ? 09/26/2012 ? Provider: MENDOZA BEATTY DO Copy to: SNEHAL MARAVILLA MD ? Final Pathologic Diagnosis: A. GASTRIC ANTRUM, BIOPSIES: - ??Antral mucosa with mild chronic gastritis. - ??No Helicobacter pylori-like organisms identified on H&E stains. B. ESOPHAGUS, DISTAL, BIOPSIES: - ??Gastroesophageal junction mucosa with intestinal metaplasia (Diaz's esophagus). - ??Chronic inflammation and reactive epithelial changes. - ??No dysplasia identified. C. ESOPHAGUS, MID, BIOPSIES: - ??Squamous mucosa with mild reactive epithelial changes. D. ESOPHAGUS, PROXIMAL, BIOPSIES: - ??Squamous mucosa with mild reactive epithelial changes. Document reviewed and electronically signed by: CHERELLE WAYNE MD Report ??Date: 09/27/2012 18:56 By the signature above, the attending physician certifies that he/she has personally conducted a gross and/or microscopic examination of the described specimens and rendered or confirmed the above diagnosis. Specimen(s) Received: A. ??Gastric antrum B. ??Distal esophagus C. ??Mid esophagus D. ??Proximal esophagus Clinical History: H/O Diaz's esophagus; LUQ pain Gross Description: A. ?Received in formalin labelled with proper patient identification (initials S, P) and gastric antrum are two pink-figueroa tissues (0.3 x 0.2 x 0.2 cm and 0.5 x 0.2 x 0.1 cm). Entirely submitted in A1. B. ?Received in formalin labelled with proper patient identification (initials S, P) and distal esophagus are four pink-figueroa tissues (0.3 x 0.2 x 0.2 cm to 0.6 x 0.2 x 0.1 cm). Entirely submitted in B1 and B2. C. ?Received in formalin labelled with proper patient identification (initials S, P) and mid esophagus are two figueroa-white tissues (0.4 x 0.2 x 0.1 cm and 0.5 x 0.2 x 0.1 cm). Entirely submitted in C1. D. ?Received in formalin labelled with proper patient identification (initials S, P) and proximal esophagus are two figueroa-white tissues (0.4 x 0.2 x 0.1 cm and 0.4 x 0.3 x 0.1 cm). Entirely submitted in D1. L. Ashley 09/26/2012 09:53 AM End of Report GENTRY ANDINO 09/25/2012 8:39 EDT 09/26/2012 8:39 EDT Mendoza Beatty DO PATHOLOGY ORDER TREVON Performing Organization Address City/State/[facility] Co de Phone Number GENTRY ANDINO [address] [place] [address] documented in this encounter Visit Diagnoses Not on filedocumented in this encounter Care Teams Mine Inspector Relationship Specialty Start Date End Date Derrick Melara MD [address] [place] [id number] PCP - General 09/26/12 11/11/15 documented as of this encounter
--- OUTSIDE RECORDS SUMMARY | 2023-10-24 16:02 | XMS_ITS | Encounter Summary ---
Author Organization [facility] Address [address] [place] [address] Care Team Providers Care See Wheeler Name Role Phone Derrick Melara MD Primary Care Provider [phone] Encounter Details Date Type Department Care Team (Late st Contact Info) Description 02/18/2014 Results Only [facility] Laboratory Services - [facility] [place] [place] [address] [place], [place] [address] Mendoza Beatty, [address] [facility] ,[address] [place], [place] [address] Social History Tobacco Use Types Packs/Day Years [...] Date/Time Associated Diagnosis Comments SURGICAL PATHOLOGY Routine 02/18/2014 9:03 EST documented in this encounter Results * SURGICAL PATHOLOGY (02/18/2014 9:03 EST) Pathology Report: SURGICAL PATHOLOGY REPORT Reports generated via electronic interface contain original data; however they are lacking the format of the original report. Caution should be taken when reading/interpret ing unformatted reports. Name: ? SAMY PATRIICO ? Accession #: ? [id number] ? : ? 1965 (Age: 48) ??M ? Collect Date: ? 02/18/2014 ? Location: ? [facility] ? Receive Date: ? 02/19/2014 ? Provider: MENDOZA BEATTY DO Copy to: [...] BIOPSY: - Hyperplastic polyp with mucosal prolapse changes and hemosiderin deposition. G. RECTUM, MID, POLYP, BIOPSY: - Hyperplastic polyp with mucosal prolapse change. H. RECTUM, DISTAL, POLYP, BIOPSY: - Hyperplastic polyp with mucosal prolapse change. I. ANTRUM, BIOPSY: - Gastric mucosa with no specific pathologic features. J. ESOPHAGUS, DISTAL, BIOPSY: - Squamocolumnar junctional mucosa with focal intestinal metaplasia. ??- Negative for dysplasia. - Gastric fundic and cardiac-type mucosa with mild, reactive changes. K. ESOPHAGUS, MID, BIOPSY: - Squamous mucosa with no specific pathologic features. Document reviewed and electronically signed by: ELEN CABALLERO MD Report ??Date: 02/27/2014 11:30 By the signature above, the attending physician certifies that he/she has personally conducted a gross and/or microscopic examination of the described specimens and rendered or confirmed the above diagnosis. Specimen(s) Received: A. ??Transverse colon polyp B. [...] proper patient identification (initials S, P) and polyp transverse colon is a single pink-figueroa tissue fragment (0.2 x 0.2 x 0.1 cm). Submitted intact in block A1. B. ?Received in formalin labelled with proper patient identification (initials S, P) and descending colon polyp is a single pink-figueroa polypoid tissue (0.6 x 0.3 x 0.3 cm). The margin is inked black. ??The specimen is trisected and entirely submitted in block B1. C. ?Received in formalin labelled with proper patient identification (initials S, P) and proximal sigmoid polyp is a single pink-figueroa tissue fragment (0.4 x 0.2 x 0.2 cm). Submitted intact in block C1. D. ?Received in formalin labelled with proper patient identification (initials S, P) and mid sigmoid colon polyp are two light figueroa tissues (0.4 x 0.2 x 0.1 cm and 0.5 x 0.3 x 0.3 cm). Entirely submitted in block D1. E. ?Received in formalin labelled with proper patient identification (initials S, P) and sigmoid biopsy are three light figueroa tissues (0.2 x 0.2 x 0.1 cm to 0.4 x 0.3 x 0.2 cm). Entirely submitted in block E1. F. ?Received in formalin labelled with proper patient identification (initials S, P) and distal sigmoid polyp are two pink-figueroa polypoid tissues (0.4 x 0.3 x 0.2 cm and 0.8 x 0.3 x 0.3 cm). The margins are inked black. ??The smaller piece is bisected and entirely submitted in block F1 and the larger piece is trisected and entirely submitted in block F2. G. ?Received in formalin labelled with proper patient identification (initials S, P) and mid rectal polyp is a single, figueroa-pink polypoid tissue (0.8 x 0.4 x 0.3 cm). The margin is inked black. ??The specimen is bisected and entirely submitted in block G1. H. ?Received in formalin labelled with proper patient identification (initials S, P) and distal rectal polyp is a single pink-figueroa polypoid tissue (0.7 x 0.3 x 0.3 cm). The margin is inked black. ??The specimen is trisected and entirely submitted in block H1. I. ?Received in formalin labelled with proper patient identification (initials S, P) and antrum biopsy are two pink-figueroa tissues (0.3 x 0.3 x 0.3 cm and 0.5 x 0.3 x 0.2 cm). Entirely submitted in block I1. J. ?Received in formalin labelled with proper patient identification (initials S, P) and distal esophagus biopsy are four light figueroa tissues (0.2 x 0.2 x 0.1 cm to 0.4 x 0.3 x 0.2 cm). Entirely submitted in blocks J1 and J2. K. ?Received in formalin labelled with proper patient identification (initials S, P) and mid esophagus biopsy are two light figueroa tissues (0.3 x 0.2 x 0.1 cm and 0.5 x 0.2 x 0.1 cm). Entirely submitted in block K1. Ifeoma King 02/19/2014 11:[address] [facility] 02/18/2014 9:03 EST 02/19/2014 9:03 EST Mendoza Beatty DO PATHOLOGY ORDER TREVON [facility] [address] [place] [address] documented in this encounter Visit Diagnoses Not on filedocumented in this encounter Care Teams See Wheeler Relationship Specialty Start Date End Date Derrick Melara MD [address] [place] [address] PCP - General 09/26/12 11/11/15 documented as of this encounter
--- NOTE | 2023-10-24 16:07 | ED.GENADUL_ITS ---
Discharge Plan Disposition Patient Disposition: Home Condition: Stable Discharge Details Clinical Impression: Chest pain, Acute UTI Primary Care Provider: Karen Barbosa ED Provider: Loretta Garcia Home Meds and New Rx's Prescriptions: New cephalexin 500 mg tablet 500 mg PO BID 7 Days Qty: 14 0RF Rx Instructions: Take one tablet twice daily x 7 days Continued metoprolol succinate 50 mg tablet extended release 24 hr 25 mg PO DAILY Qty: 90 3RF allopurinol 100 mg tablet 200 mg PO DAILY Qty: 180 3RF glucagon 3 mg/actuation spray,non-aerosol 3 mg intranasal ONCE PRN (Reason: hypoglycemia) Qty: 2 1RF Rx Instructions: as a single dose vitamin B complex [B Complex-Vitamin B12] Tablet 1 tab PO DAILY nitroglycerin 0.4 mg tablet, sublingual See Rx Instructions .ROUTE .COMPLEX Qty: 100 3RF Dose Instruction: PLACE ONE TABLET UNDER THE TONGUE EVERY 5 MINUTES FOR UP TO 3 DOSES NEEDED FOR CHEST PAIN. IF CHEST PAIN STILL PERSISTS CONTACT 911 Rx Instructions: PLACE ONE TABLET UNDER THE TONGUE EVERY 5 MINUTES FOR UP TO 3 DOSES NEEDED FOR CHEST PAIN. IF CHEST PAIN STILL PERSISTS CONTACT 911 albuterol sulfate 90 mcg/actuation HFA aerosol inhaler 2 puff inhalation Q6H PRN (Reason: shortness of breath or wheezing) Qty: 8.5 4RF (DME) Dexcom G7 Sensor Device See Rx Instructions .Route Qty: 1 12RF Rx Instructions: As directed folic acid 1 mg tablet 1 mg PO DAILY Qty: 90 4RF aspirin [Aspir-81] 81 MG tablet,delayed release (DR/EC) 81 mg PO DAILY Patient Comments: 08-28-17 per [facility]. -hb (DME) pen needle, diabetic [Comfort EZ Pen [facility]] 31 gauge x 1/4 needle See Rx Instructions .ROUTE .MEDSUPPLY Qty: 500 4RF Rx Instructions: Five times daily torsemide 20 mg tablet 40 mg PO DAILY Qty: 180 1RF tamsulosin [Flomax] 0.4 mg capsule 0.4 mg PO DAILY Qty: 90 3RF empagliflozin 25 mg tablet 25 mg PO DAILY Qty: 90 3RF colchicine [Colcrys] 0.6 mg tablet See Rx Instructions PO .COMPLEX Qty: 30 2RF Rx Instructions: 2 tabs once and May repeat 1 tab 6 hours later. May use once daily until symptoms improve; lorazepam 0.5 mg tablet 0.5 mg PO ONCE PRN (Reason: anxiety/claustrophobia) Qty: 2 0RF Rx Instructions: Take one tablet 30min prior to MRI. Ok to take second at time of MRI if still anxious. Do not drive after taking. atorvastatin 80 mg tablet 80 mg PO QHS Qty: 90 3RF insulin lispro-aabc 200 unit/mL (3 mL) insulin pen 40 unit subcut QACHS Qty: 18 3RF Rx Instructions: up to 160 units / day. pantoprazole 40 mg tablet,delayed release (DR/EC) 40 mg PO BID Qty: 180 3RF Trelegy Ellipta 200-62.5-25 mcg blister with device 1 inh inhalation DAILY Qty: 60 4RF alprazolam 0.5 mg tablet 0.5 mg PO ONCE PRN (Reason: claustrophobia) Qty: 2 0RF Rx Instructions: Take within 3o minutes of MRI. Repeat x 1 if necessary. insulin degludec 200 unit/mL (3 mL) insulin pen 160 unit subcut HS acetaminophen 500 mg tablet 1,000 mg PO TID Qty: 90 0RF ibuprofen 600 mg tablet 600 mg PO TID PRN (Reason: pain) Qty: 90 0RF Discharge Instructions Instructions: Chest Pain, Adult ED, Urinary Tract Infection, Adult ED Additional Instructions: No evidence for acute heart attack today. Normal EKGs normal troponins x 2. No evidence of infection on chest x-ray. It does appear that you may have an early urinary tract infection. Initial workup within normal limits. Follow up with primary care provider in 3-5 days. Return to ED sooner if any worsening or concerns. Please take the antibiotic as directed with yogurt or probiotic. Referrals: Karen Barbosa MD [Primary Care Provider] - 3 days HPI General Mode of arrival: ambulatory . Date/Time Provider Initiated Documentation: 10/24/23 15:50 . Limitations to Documentation: no limitations . Information obtained by: patient, RN notes reviewed and old records reviewed . HPI Narrative: 57-year-old male past medical history of CAD status post angioplasty 1 year ago presents to the ER with a chief complaint of chest pain with radiation into the left neck which began approximately 3 days ago he reports has been taking nitro over the last couple of days none today. He states that this morning he he was helping a friend work on a car became diaphoretic nauseous and vomited approximately 3 times. He came home went to bed woke up with continued chest pain. He was able to hold down a sandwich after that. He denies any abdominal pain he does report some shortness of breath and a cough. He is a daily smoker, he rates his chest pain a 2 out of 10 and it is present and constant at rest. He did take 1 baby aspirin today. Other past medical history includes chronic kidney disease, type 2 diabetes, COPD, obstructive sleep apnea, ALTMAN, GERD, hypertension, peripheral vascular disease. Related Data Home Medications ?Medication ?Instructions ?Recorded ?Confirmed aspirin 81 mg tablet,delayed 81 mg PO DAILY 08/28/17 10/24/23 release (Aspir-) vitamin B complex (B 1 tab PO DAILY 08/19/19 10/24/23 Complex-Vitamin B12 tablet) albuterol sulfate 90 mcg/actuation 2 puff inhalation Q6H PRN 09/30/22 10/24/23 aerosol inhaler shortness of breath or wheezing #8.5 grams blood-glucose sensor (Dexcom G7 #1 ea 09/30/22 10/24/23 Sensor device) folic acid 1 mg tablet 1 mg PO DAILY #90 tabs 09/30/22 10/24/23 nitroglycerin 0.4 mg sublingual See Rx Instructions .Route 09/30/22 10/24/23 tablet .COMPLEX #100 tabs pen needle, diabetic 31 gauge x #500 ea 12/01/22 10/24/2303/16 (Comfort EZ Pen [facility]) metoprolol succinate 50 mg 25 mg (1/2 x 50 mg) PO DAILY #90 12/21/22 10/24/23 tablet,extended release 24 hr tabs torsemide 20 mg tablet 40 mg (2 x 20 mg) PO DAILY #180 02/10/23 10/24/23 tabs tamsulosin 0.4 mg capsule (Flomax) 0.4 mg PO DAILY #90 caps 04/05/23 10/24/23 allopurinol 100 mg tablet 200 mg (2 x 100 mg) PO DAILY #180 05/16/23 10/24/23 tabs glucagon 3 mg/actuation nasal spray 3 mg intranasal ONCE PRN 05/16/23 10/24/23 hypoglycemia #2 ea acetaminophen 500 mg tablet 1,000 mg (2 x 500 mg) PO TID #90 06/28/23 10/24/23 tabs ibuprofen 600 mg tablet 600 mg PO TID PRN pain #90 tabs 06/28/23 10/24/23 empagliflozin 25 mg tablet 25 mg PO DAILY #90 tabs 07/13/23 10/24/23 colchicine 0.6 mg tablet (Colcrys) See Rx Instructions PO .COMPLEX 08/08/23 10/24/23 #30 tabs lorazepam 0.5 mg tablet 0.5 mg PO ONCE PRN 08/22/23 10/24/23 anxiety/claustrophobia #2 tabs atorvastatin 80 mg tablet 80 mg PO QHS #90 tabs 10/02/23 10/24/23 insulin lispro-aabc 200 unit/mL (3 40 unit (0.2 mL) subcut QACHS #18 10/05/23 10/24/23 mL) subcutaneous pen mL pantoprazole 40 mg tablet,delayed 40 mg PO BID #180 tabs 10/09/23 10/24/23 release fluticasone fur. 200 mcg-umeclid 1 inh inhalation DAILY #60 ea 10/23/23 10/24/23 62.5 mcg-vilant 25 mcg inhalat.powder (Trelegy Ellipta) alprazolam 0.5 mg tablet 0.5 mg PO ONCE PRN claustrophobia 10/24/23 10/24/23 #2 tabs cephalexin 500 mg tablet 500 mg PO BID UTI 7 days #14 tabs 10/24/23 insulin degludec 200 unit/mL (3 160 unit subcut HS 10/24/23 10/24/23 mL) subcutaneous pen Previous Rx's ?Medication ?Instructions ?Recorded albuterol sulfate 90 mcg/actuation 2 puff inhalation Q6H PRN 09/30/22 aerosol inhaler shortness of breath or wheezing #8.5 grams blood-glucose sensor (Second Windcom G7 #1 ea 09/30/22 Sensor device) folic acid 1 mg tablet 1 mg PO DAILY #90 tabs 09/30/22 nitroglycerin 0.4 mg sublingual See Rx Instructions .Route 09/30/22 tablet .COMPLEX #100 tabs pen needle, diabetic 31 gauge x #500 ea 12/01/22 (Comfort EZ Pen [facility]) metoprolol succinate 50 mg 25 mg (1/2 x 50 mg) PO DAILY #90 12/21/22 tablet,extended release 24 hr tabs torsemide 20 mg tablet 40 mg (2 x 20 mg) PO DAILY #180 02/10/23 tabs tamsulosin 0.4 mg capsule (Flomax) 0.4 mg PO DAILY #90 caps 04/05/23 allopurinol 100 mg tablet 200 mg (2 x 100 mg) PO DAILY #180 05/16/23 tabs glucagon 3 mg/actuation nasal spray 3 mg intranasal ONCE PRN 05/16/23 hypoglycemia #2 ea acetaminophen 500 mg tablet 1,000 mg (2 x 500 mg) PO TID #90 06/28/23 tabs ibuprofen 600 mg tablet 600 mg PO TID PRN pain #90 tabs 06/28/23 empagliflozin 25 mg tablet 25 mg PO DAILY #90 tabs 07/13/23 colchicine 0.6 mg tablet (Colcrys) See Rx Instructions PO .COMPLEX 08/08/23 #30 tabs lorazepam 0.5 mg tablet 0.5 mg PO ONCE PRN 08/22/23 anxiety/claustrophobia #2 tabs atorvastatin 80 mg tablet 80 mg PO QHS #90 tabs 10/02/23 insulin lispro-aabc 200 unit/mL (3 40 unit (0.2 mL) subcut QACHS #18 10/05/23 mL) subcutaneous pen mL pantoprazole 40 mg tablet,delayed 40 mg PO BID #180 tabs 10/09/23 release fluticasone fur. 200 mcg-umeclid 1 inh inhalation DAILY #60 ea 10/23/23 62.5 mcg-vilant 25 mcg inhalat.powder (Trelegy Ellipta) alprazolam 0.5 mg tablet 0.5 mg PO ONCE PRN claustrophobia 10/24/23 #2 tabs cephalexin 500 mg tablet 500 mg PO BID UTI 7 days #14 tabs 10/24/23 Allergies Allergy/AdvReac Type Severity Reaction Status Date / Time venlafaxine AdvReac Severe Nausea Verified 10/24/23 15:56 doxycycline AdvReac Intermediate Cold Verified 10/24/23 15:56 Chills, made him sick. liraglutide (From Victoza) AdvReac Intermediate GI upset Verified 10/24/23 15:56 General Stated Complaint: Chest Pain DIANE: 2 Review of Systems All systems reviewed & are unremarkable except as noted in HPI and below Cardiovascular Cardiovascular: Reports chest pain, Reports chest pain at rest, Reports diaphoresis, Reports pedal edema, Reports radiating jaw, neck or arm pain and Reports dyspnea Respiratory Respiratory: Reports cough, Reports dyspnea and Reports wheezing Gastrointestinal Gastrointestinal: Denies abdominal pain, Denies diarrhea, Reports nausea and Reports vomiting Allergic/Immunologic Allergic/Immunologic: Reports wheezing Exam Narrative Exam Narrative: Constitutional: Alert and oriented x3. Appears stated age. Normal body habitus. Head: Normocephalic, no trauma. Eyes: Pupils PERRL, Red reflex noted, EOM's intact. Eyelids symmetrical without lesions, discharge, or swelling. ENT: Bilateral TM's WNL, External ear normal to inspection, no mastoid TTP, swelling, or erythema, Nasal turbinates WNL, no nasal discharge. Normal dentition, Posterior pharynx WNL, no exudate. Chest: RRR, Normal S1, S2, distal pulses intact. Resp: Mild expiratory wheezes noted to the left upper lobe. Abdomen: Soft, non-distended, Normoactive bowel sounds all 4 quads. Musculoskeletal: Normal gait, Moves all 4 extremities without difficulty. Skin: No suspicious rashes or lesions. Capillary refill less than 2 sec. Neurologic: Cranial nerves II-XII intact. Alert and oriented x 3. Motor: No deficits noted. Sensory: Intact bilaterally all 4 extremities. Hematologic/Lymphatic: No ecchymosis, no lymphadenopathy. Course Vital Signs Vital signs: Vital Signs Temperature 36 C L 10/24/23 15:50 Pulse 90 10/24/23 15:50 Respiratory Rate 20 10/24/23 15:50 Blood Pressure 137/81 10/24/23 15:50 Pulse Oximetry 96 10/24/23 15:50 Temperature 36 C L 10/24/23 15:50 Temperature Source Skin 10/24/23 15:50 Pulse 90 10/24/23 15:50 Respiratory Rate 20 10/24/23 15:50 Blood Pressure 137/81 10/24/23 15:50 Blood Pressure Position Sitting 10/24/23 15:50 Pulse Oximetry 96 10/24/23 15:50 Oxygen Delivery Method Room Air 10/24/23 15:50 Oxygen Flow Rate 0 10/24/23 15:50 Pain Level 2 10/24/23 15:50 Comment left chest into neck 10/24/23 15:50 Medical Decision Making 57-year-old male past medical history of CAD status post angioplasty 1 year ago presents to the ER with a chief complaint of chest pain with radiation into the left neck which began approximately 3 days ago he reports has been taking nitro over the last couple of days none today. He states that this morning he he was helping a friend work on a car became diaphoretic nauseous and vomited approximately 3 times. He came home went to bed woke up with continued chest pain. He was able to hold down a sandwich after that. He denies any abdominal pain he does report some shortness of breath and a cough. He is a daily smoker, he rates his chest pain a 2 out of 10 and it is present and constant at rest. He did take 1 baby aspirin today. Other past medical history includes chronic kidney disease, type 2 diabetes, COPD, obstructive sleep apnea, ALTMAN, GERD, hypertension, peripheral vascular disease. Cardiac workup ordered including CBC CMP serial troponins, D-dimer, proBNP, 243 chewable baby aspirin chest x-ray. Initial troponin WNL, Informed by ED staff, patient requesting to leave AMA and have his IV removed, second troponin drawn and is pending at this time. Second Troponin returned prior to patient leaving, WNL, Patient discharged in hemodynamically stable condition. This text was generated using Myrio dictation system, please disregard any oddities of phrase or misspellings. Imaging Data Radiologic Study: Imaging: X-Ray Radiologist's impression: EXAM: XR PORTABLE CHEST AP CLINICAL HISTORY: Chest Pain. TECHNIQUE: 2D digital imaging was performed. COMPARISON: CR XR PORTABLE CHEST AP from 10/04/2022 FINDINGS: Single AP portable view. Heart size is upper normal. The mediastinum is not widened. Lungs are clear. No infiltrates nor obvious pleural effusions. IMPRESSION: No acute pulmonary findings on this single AP portable view of the chest. Lab Data Lab results reviewed: Yes I reviewed the patient's lab results. Labs: Laboratory Tests Range/Units 10/24/23 10/24/23 10/24/23 15:55 16:04 16:50 WBC (4.4-10.8) 10^3/uL 10.62 RBC (4.36-5.78) 10^6/uL 5.50 Hgb (13.5-17.5) g/dL 16.4 Hct (40.0-50.0) % 50.5 H MCV (80-95) fL 92 MCH (27.0-33.0) pg 29.8 MCHC (32.0-36.0) % 32.5 RDW (11.8-14.1) % 14.6 H Plt Count (130-400) 10^3/uL 219 MPV (8.0-11.0) fL 9.3 Immature Gran % % 0.4 Neutrophils % % 68.0 Lymphocytes % % 21.0 Monocytes % % 6.6 Eosinophils % % 3.2 Basophils % % 0.8 Nucleated RBC % (0.0-0.3) % 0.0 Absolute Neutrophils (1.2-6.7) 10^3/uL 7.22 H Absolute Lymphocytes (1.2-3.4) 10^3/uL 2.23 Absolute Monocytes (0.1-0.8) 10^3/uL 0.70 Absolute Eosinophils (0.0-0.7) 10^3/uL 0.34 Absolute Basophils (0.0-0.2) 10^3/uL 0.09 PT (9.1-11.1) sec 10.3 INR (0.9-1.1) 1.0 APTT (23.6-32.8) sec 28.9 D-Dimer (<500) ng/mlFEU 451 Sodium (136-145) mmol/L 141 Potassium (3.5-5.1) mmol/L 4.2 Chloride (98-107) mmol/L 103 Carbon Dioxide (21.0-32.0) mmol/L 31.4 Anion Gap (3-11) mmol/L 6.6 BUN (7-18) mg/dL 17 Creatinine (0.70-1.30) mg/dL 1.6 H Est GFR (CKD-EPI 2020) (mL/min/1.73m2) 50.26 Glucose (74-106) mg/dL 112 H Calcium (8.5-10.1) mg/dL 9.0 Magnesium (1.8-2.4) mg/dL 2.3 Total Bilirubin (0.2-1.0) mg/dL 0.85 AST (15-37) U/L 18 ALT (16-63) U/L 32 Alkaline Phosphatase (46-116) U/L 122 H Troponin I (< or =60) ng/L < 50 NT-Pro-B Natriuret Pep (<300) pg/mL 87 Total Protein (6.4-8.2) g/dL 6.9 Albumin (3.4-5.0) g/dL 3.3 L Lipase (16-77) U/L 49 Urine Color (Yellow) Yellow Urine Clarity (Clear) Clear Urine pH (5-8) 6.0 Ur Specific [place] (1.005-1.025) 1.015 Urine Protein (Neg-Trace) mg/dL Negative Urine Ketones (Negative) mg/dL Negative Urine Blood (Negative) Negative Urine Nitrite (Negative) Negative Urine Bilirubin (Negative) Negative Urine Urobilinogen (Up to 0.2) mg/dL 0.2 Ur Leukocyte Esterase (Negative) Trace H Urine RBC (0-2) HPF 0-2 Urine WBC (0-5) HPF 0-2 Ur Epithelial Cells (Negative) HPF Negative Urine Crystals (Negative) HPF Negative Urine Bacteria (Negative) HPF Negative Urine Casts (Negative) LPF Negative Urine Mucus (Negative) Negative Ur Culture Indicated? No Urine Glucose (Negative) mg/dL >=1000 H COVID-19 Source Nasopharynx SARS-CoV-2 (PCR) (Negative) Negative Influenza Type A (PCR) (Negative) Negative Influenza Type B (PCR) (Negative) Negative RSV (PCR) (Negative) Negative Add-On Test Request DONE Range/Units 10/24/23 19:18 WBC (4.4-10.8) 10^3/uL RBC (4.36-5.78) 10^6/uL Hgb (13.5-17.5) g/dL Hct (40.0-50.0) % MCV (80-95) fL MCH (27.0-33.0) pg MCHC (32.0-36.0) % RDW (11.8-14.1) % Plt Count (130-400) 10^3/uL MPV (8.0-11.0) fL Immature Gran % % Neutrophils % % Lymphocytes % % Monocytes % % Eosinophils % % Basophils % % Nucleated RBC % (0.0-0.3) % Absolute Neutrophils (1.2-6.7) 10^3/uL Absolute Lymphocytes (1.2-3.4) 10^3/uL Absolute Monocytes (0.1-0.8) 10^3/uL Absolute Eosinophils (0.0-0.7) 10^3/uL Absolute Basophils (0.0-0.2) 10^3/uL PT (9.1-11.1) sec INR (0.9-1.1) APTT (23.6-32.8) sec D-Dimer (<500) ng/mlFEU Sodium (136-145) mmol/L Potassium (3.5-5.1) mmol/L Chloride (98-107) mmol/L Carbon Dioxide (21.0-32.0) mmol/L Anion Gap (3-11) mmol/L BUN (7-18) mg/dL Creatinine (0.70-1.30) mg/dL Est GFR (CKD-EPI 2020) (mL/min/1.73m2) Glucose (74-106) mg/dL Calcium (8.5-10.1) mg/dL Magnesium (1.8-2.4) mg/dL Total Bilirubin (0.2-1.0) mg/dL AST (15-37) U/L ALT (16-63) U/L Alkaline Phosphatase (46-116) U/L Troponin I (< or =60) ng/L < 50 NT-Pro-B Natriuret Pep (<300) pg/mL Total Protein (6.4-8.2) g/dL Albumin (3.4-5.0) g/dL Lipase (16-77) U/L Urine Color (Yellow) Urine Clarity (Clear) Urine pH (5-8) Ur Specific [place] (1.005-1.025) Urine Protein (Neg-Trace) mg/dL Urine Ketones (Negative) mg/dL Urine Blood (Negative) Urine Nitrite (Negative) Urine Bilirubin (Negative) Urine Urobilinogen (Up to 0.2) mg/dL Ur Leukocyte Esterase (Negative) Urine RBC (0-2) HPF Urine WBC (0-5) HPF Ur Epithelial Cells (Negative) HPF Urine Crystals (Negative) HPF Urine Bacteria (Negative) HPF Urine Casts (Negative) LPF Urine Mucus (Negative) Ur Culture Indicated? Urine Glucose (Negative) mg/dL COVID-19 Source SARS-CoV-2 (PCR) (Negative) Influenza Type A (PCR) (Negative) Influenza Type B (PCR) (Negative) RSV (PCR) (Negative) Add-On Test Request Quality:SDOH Health Related Social Needs: No Data to Display PFSH All Active Problems (Updated 10/24/23 @ 20:00 by Loretta Garcia NP) Acute UTI (Acute) Chest pain (Acute) Rectal bleeding (Acute) Chronic obstructive lung disease (Chronic) Tubular adenoma of colon (Acute 02/18/14) 04/13/20 TAx5 2 additional polyps 2023 Gross hematuria (Acute) Cubital tunnel syndrome on left (Acute) S/P Release: 06/28/2023 Carpal tunnel syndrome of right wrist (Acute) Carpal tunnel syndrome of left wrist (Acute) S/P ECTR: 06/28/2023 Gout due to renal impairment, multiple sites (Acute) Hyperuricemia (Acute) ALTMAN (nonalcoholic steatohepatitis) (Chronic 01/04/23) Elev Alk Phos, abd u/s Pituitary abnormality (Acute) Seen incidentally, normal cortisol and TSH Peripheral artery disease (Acute) normal ABIs at [facility] [place] with exercise. Orthostatic hypotension (Acute) Diabetes mellitus with stage 3a chronic kidney disease, with long-term current use of insulin (Acute) Type 2 diabetes mellitus with diabetic neuropathy, with long-term current use of insulin (Acute) Lumbosacral spondylosis without myelopathy (Acute) Memory change (Acute) Claudication (Acute) Obesity (Chronic) Bilateral lower extremity edema (Chronic) left > right; felt to be venous insufficiency, not wearing compression. Normal echo in 12/2021 Erectile dysfunction (Acute) BPH loc w urin obs/LUTS (Acute) Actinic keratosis due to exposure to sunlight (Acute) Serrated adenoma of colon (Acute ~04/2020) 04/13/20 Sessile serrated adenomax2 Diabetic peripheral neuropathy (Acute) GERD (gastroesophageal reflux disease) (Acute) HTN (hypertension) (Chronic) Smoker (Acute) 1/2 pack daily CAD S/P percutaneous coronary angioplasty (Chronic 08/28/17) Hyperlipidemia (Chronic) CARLOTA (obstructive sleep apnea) (Chronic) Not using CPAP Depression with anxiety (Chronic) resistant to treatment with antidepressants Medical History Colon polyp, hyperplastic (~04/2020) 04/13/20 HP x19 Pyelonephritis due to Escherichia coli History of left heart catheterization 10/05/22 [facility] [place] Cardiology. 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 Cervical disc disease Chronic neck pain Thoracic spine pain (07/17/15) Spondylosis of cervical region without myelopathy or radiculopathy (04/17/15) Chronic pain syndrome (09/30/16) 08/19/16-CONTROLLED SUBSTANCE AGREEMENT-APPROVED FOR 3 MONTHS Chronic left-sided low back pain with left-sided sciatica (12/03/15) Blindness, 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 Acute nontraumatic kidney injury Parastomal hernia Surgical History Ganglion cyst of dorsum of right wrist S/P Excision: 06/06/2023 Status post vasectomy Status post Luisana fundoplication Status post inguinal hernia repair Status post carpal tunnel release History of esophagogastroduodenoscopy (~04/2023) History of incisional hernia repair with mesh right ulnar graft left shoulder repair Luisana Fundoplication Colonoscopy - MAC (~04/2023) 02/18/14 Family History Father , age 74 Diabetes Alcohol abuse sober in later years Essential hypertension Hyperlipidemia Cancer Mother , age 72 Diabetes Essential hypertension Heart disease Hyperlipidemia Mental disorder pt thinks she has bipolar Depression Brother Hyperlipidemia Depression Diabetes Heart disease Hypertension Sister Alcohol abuse Depression Stroke Substance abuse Sister Depression Heart disease Hypertension Brother Hyperlipidemia Hypertension Brother , age 29 Alcohol abuse Depression Substance abuse Social History Smoking/Tobacco Use Status: Current every day Tobacco Type: cigarettes Smoking packs per day: 2 Smoking cigarettes per day: 40.0 Tobacco: How many years used: 24 Smokeless tobacco user: snuff Quit status: considering quitting Second Hand Exposure: Yes Counseling given: provider counseling Smoking risk assessment performed?: Yes Alcohol Intake: current Alcohol Intake frequency: holidays/special occasions only Alcohol type: hard liquor Drug use: Never Substance use type: does not use Details: 06/28/23: pt reports smoking 3 cigarettes prior to DSU today Caregiver/Support person: No Household members: spouse and family Housing: house Communication Needs: None Do you need help understanding health information?: Rarely 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 Pets and animals: Yes Pets and animals: dog(s) Sexually active: No Do you think of yourself as: straight/heterosexual Current gender identity: male What is your relationship status?: How often do you talk on the phone with friends or family?: once per week How often do you get together with friends or relatives?: once per week How often do you attend scientologist or zoroastrian services?: decline to answer Do you belong to any clubs or organized social groups?: no Panel score (0-1 are the most socially isolated patients): 1 Duration: decline to answer Frequency: decline to answer Mayela/Sabianism: No preference Special mayela needs: No Seatbelt use: always Helmet use: Yes Helmet use: always Drive intox or ride w/intox bung driver: No Do you feel safe at home: Yes Do you feel safe in your relationship?: Yes
[2023-10-24] MEDS: Aspirin 81 MG CHEW 243 MG CH (16:12)
[2023-10-24 16:13] LABS: Abs Immature Grans 0.04 10^3/uL (0.0-0.06); Absolute Basophil Count 0.09 10^3/uL (0.0-0.2); Absolute Eosinophil Count 0.34 10^3/uL (0.0-0.7); Absolute Lymphocyte Count 2.23 10^3/uL (1.2-3.4); Absolute Neutrophil Count 7.22 10^3/uL (1.2-6.7); Basophils % 0.8 %; Eosinophils % 3.2 %; HCT 50.5 % (40.0-50.0); HGB 16.4 g/dL (13.5-17.5); Immature Grans % 0.4 %; MCH 29.8 pg (27.0-33.0); MCHC 32.5 % (32.0-36.0); MCV 92 fL (80-95); MPV 9.3 fL (8.0-11.0); Monocytes % 6.6 %; Platelet Count 219 10^3/uL (130-400); RDW 14.6 % (11.8-14.1); RDW-SD 49.7 fL; WBC 10.62 10^3/uL (4.4-10.8)
--- NOTE | 2023-10-24 16:26 | DI.RAD_ITS ---
Exam(s) XR PORTABLE CHEST AP EXAM: XR PORTABLE CHEST AP CLINICAL HISTORY: Chest Pain. TECHNIQUE: 2D digital imaging was performed. COMPARISON: CR XR PORTABLE CHEST AP from 10/04/2022 FINDINGS: Single AP portable view. Heart size is upper normal. The mediastinum is not widened. Lungs are clear. No infiltrates nor obvious pleural effusions. IMPRESSION: No acute pulmonary findings on this single AP portable view of the chest. DATA REPOSITORY: RADIATION DOSE DELIVERED:
[2023-10-24 16:27] LABS: PTT Activated 28.9 sec (23.6-32.8); Prothrombin Time 10.3 sec (9.1-11.1)
[2023-10-24 16:31] LABS: ALT 32 U/L (16-63); AST 18 U/L (15-37); Albumin 3.3 g/dL (3.4-5.0); Alkaline Phosphatase 122 U/L (46-116); Anion Gap 6.6 mmol/L (3-11); BUN 17 mg/dL (7-18); Bilirubin, Total 0.85 mg/dL (0.2-1.0); CO2 31.4 mmol/L (21.0-32.0); CREATININE 1.6 mg/dL (0.70-1.30); Chloride 103 mmol/L (98-107); Estimated GFR 50.26 (mL/min/1.73m2); Glucose 112 mg/dL (74-106); Magnesium 2.3 mg/dL (1.8-2.4); Potassium 4.2 mmol/L (3.5-5.1); Sodium 141 mmol/L (136-145); Total Protein 6.9 g/dL (6.4-8.2); Troponin I < 50 ng/L (< or =60)
[2023-10-24 16:55] LABS: D-Dimer 451 ng/mlFEU (<500)
[2023-10-24 17:17] LABS: Bilirubin Negative (Negative); Blood Negative (Negative); Clarity Clear (Clear); Glucose >=1000 mg/dL (Negative); Ketones Negative (Negative); Leukocyte Esterase Trace (Negative); Nitrite Negative (Negative); Specific Gravity 1.015 (1.005-1.025); Urobilinogen 0.2 mg/dL (Up to 0.2)
[2023-10-24 17:32] LABS: Bacteria Negative HPF (Negative); C & S Indicated? No; Casts Negative LPF (Negative); Crystals Negative HPF (Negative); Epithelial Cells Negative HPF (Negative); Mucus Negative (Negative); RBC 0-2 HPF (0-2); WBC 0-2 HPF (0-5)
[2023-10-24 17:41] LABS: COVID-19 PCR Negative (Negative); Influenza A PCR Negative (Negative); Influenza B PCR Negative (Negative); RSV PCR Negative (Negative)
[2023-10-24 17:43] LABS: Source Nasopharynx
[2023-10-24 17:45] LABS: NT-proBNP 87 pg/mL (<300)
--- NOTE | 2023-10-24 18:00 | RT.EKG_ITS ---
APPROVED REPORT Exam: Resting ECG Reason for Exam: repeat ekg Patient Location: E HR:78 bpm ECG Measurements Heart Rate 78 AXIS TN 178 P 44 QRSd 97 QRS 59 QT 384 T 24 QTc 439 Conclusion Sinus rhythm...normal P axis, V-rate 60- 99 No complex normal sinus rhythm at a rate of 78. Normal axis. Intervals within normal limits. No ST segment abnormalities. No T wave versions. Appears similar to prior dated earlier this evening.
[2023-10-24 18:32] LABS: Lab Add On Test DONE
[2023-10-24 18:41] LABS: Lipase 49 U/L (16-77)
[2023-10-24 20:02] LABS: Troponin I < 50 ng/L (< or =60)
[2023-10-24] MEDS: Cephalexin 500 MG CAP, 2 CAPS/BTL PO (20:30)
[2023-10-24] MEDS: Cephalexin 500 MG CAP PO (20:30)
== END 2023-10-24 20:07 | disposition home or self-care (01) ==
PROVIDERS: Emergency Provider Registered Nurse Emergency; PCP Family Medicine
DX: R07.9 Chest pain, unspecified (principal); N39.0 Urinary tract infection, site not specified; R06.02 Shortness of breath; R05.9 Cough, unspecified; I25.10 Atherosclerotic heart disease of native coronary artery without angina pectoris; Z98.61 Coronary angioplasty status; E11.22 Type 2 diabetes mellitus with diabetic chronic kidney disease; I12.9 Hypertensive chronic kidney disease with stage 1 through stage 4 chronic kidney disease, or unspecified chronic kidney disease; N18.31 Chronic kidney disease, stage 3a; K21.9 Gastro-esophageal reflux disease without esophagitis; E78.5 Hyperlipidemia, unspecified; G47.33 Obstructive sleep apnea (adult) (pediatric); F32.A Depression, unspecified; F41.9 Anxiety disorder, unspecified; Z79.82 Long term (current) use of aspirin; Z79.899 Other long term (current) drug therapy; Z79.4 Long term (current) use of insulin; F17.210 Nicotine dependence, cigarettes, uncomplicated; F44.9 Dissociative and conversion disorder, unspecified; I73.9 Peripheral vascular disease, unspecified; K75.81 Nonalcoholic steatohepatitis (NASH)
CPT/HCPCS: 36415; 80053; 83690; 87637; 93005; 99285; 71045; 81003; 81015; 83735; 83880; 84484; 85025; 85379; 85610; 85730; 93010; 99284

== ENCOUNTER 2023-11-07 02:25 | Outpatient (CLI) | payer MEDICARE, OTHER, SELFPAY ==
--- OUTSIDE RECORDS SUMMARY | 2023-11-07 02:27 | XMS_ITS | Encounter Summary ---
[place] [address] Care Team Providers Care Scallop Cutter Machine Name Role Phone Karen Barbosa MD Primary Care Provider Reason for Referral * Diagnostic Test (Routine) - Closed Specialty Diagnoses / Procedures Referred By Contac t Referred To Contact Diagnoses Atherosclerosis of iliamna artery of lower extremity, unspecified laterality, with unspecified presence of clinical manifestation Procedures DEONTE, legs, multiple levels Anamaria Isaacs APRN [facility] [place] [address] [facility] Vascular Lab [address] [place] [address] Referral ID Status Reason Start Date Expiration Date V isits Requested Visits Authorized [id number] Closed Specialty Service Requested 03/22/2023 03/21/2024 1 1 Encounter Details Date Type Department Care Team (Late st Contact Info) Description 03/22/2023 Orders [place] [address] Anamaria Isaacs APRN [facility] [place] [address] Atherosclerosis of iliamna artery of lower extremity, unspecified laterality, with unspecified presence of clinical manifestation Social History Tobacco Use Types Packs/Day Years Used Date Smoking Tobacco: Every Day Cigarettes 1 40 Smokeless Tobacco: Never Alcohol Use Standard Drinks/Week Comments Not Currently 7 (1 standard drink = 0.6 oz pur e alcohol) [facility] Inpatient Questions Answer Date Recorded Does Anyone [...] 10:00 AM EST Office [place] [address] Tania Gates OD [facility] [place] [address] documented as of this encounter Results * DEONTE, legs, multiple levels (05/17/2023 7:48 AM EST) VB Text Report Department: Vascular Surgery Lab Patient: [id number] (BEL PATRICIO) CPT: 13792 Referring Physician: ANAMARIA ISAACS ?? Phone: Indications: [...] Isaacs APRN VASCULAR ORDERABLES Performing Organization Address City/State/[facility] Co de Phone Number VASCUBASE documented in this encounter Visit Diagnoses Diagnosis Atherosclerosis of iliamna artery of lower extremity, unspecified laterality, with unspecified presence of clinical manifestation documented in this encounter Care Teams Scallop Cutter Machine Relationship Specialty Start Date End Date Karen Barbosa MD [address] [place] [address] PCP - General Family Medicine 10/04/22 documented as of this encounter
--- OUTSIDE RECORDS SUMMARY | 2023-11-07 02:27 | XMS_ITS | Encounter Summary ---
[place] [address] Care Team Providers Care Classification Clerk Name Role Phone Karen Barbosa MD Primary Care Provider Reason for Referral * Consultation (Routine) - Closed Specialty Diagnoses / Procedures Referred By Contac t Referred To Contact Diagnoses Type 2 diabetes mellitus with ESRD (end-stage renal disease) Jeovanny Lancaster MD [facility] [place] [address] Antonina Gutierrez, client service administrator ID Status Reason Start Date Expiration Date V isits Requested Visits Authorized [id number] Closed Consult, Test & Treat 04/25/2023 04/24/2024 1 1 Reason for Visit * Consultation (Routine) - Authorized Specialty Diagnoses / Procedures Referred By Contac t Referred To Contact Endocrinology Diagnoses Type 2 diabetes mellitus without complications Type 2 diabetes mellitus with diabetic chronic kidney disease Chronic kidney disease, stage 3a snf (current) use of insulin Karen Barbosa MD [address] [place] [address] [facility] [address] [place] [address] Referral ID Status Reason Start Date Expiration Date Visits Requested Visits Authorized [id number] Authorized Consult, Test & Treat PCP Updated and/or Approved 3 03/01/2024 6 6 Encounter Details Date Type Department Care Team (Latest Contact Info) Description 04/25/2023 9:00 AM EST Office [place] [address] Jeovanny Lancaster MD Type 2 diabetes mellitus with ESRD (end-stage renal disease); Cigar smoker; Mixed hyperlipidemia Social History Tobacco Use Types Packs/Day Years Used Date Smoking Tobacco: Every Day Cigarettes 1 40 Smokeless Tobacco: Never Alcohol Use Standard Drinks/Week Comments Not Currently 7 (1 standard drink = 0.6 oz pur e alcohol) [facility] Inpatient Questions Answer Date Recorded Does [...] CONSULT Referred by Dr. Karen Barbosa MD [address] [place] [address] Chief Complaint: Type 2 Diabetes- Insulin requiring [...] an outside A1c 2 days ago at [facility] of 7.4%. However I am afraid he [...] Misc TEST BLOOD GLUCOSE TWICE A DAY ykoawnevbxt-lrsougzbu-hcfqbjmi 100-62.5-25 mcg Disk with Device 1 puff [...] the name Glu Monitoring: CGM: Utilizes a [employer] G7. Unfortunately he is not yet registered [...] Last A1c = 7.4% 04/23/23 outside at [facility] Recent Labs 10/05/22 0104 HA1C 7.4* DM [...] undocumented hypoglycemia. His Dexcom CGM will not pick up man hypoglycemia if it is instantly treated as [...] me. Sincerely, Jeovanny Lancaster MD Endocrinology Section [facility] Total time spent in comprehensive review of his medical records and and examining, counseling and reviewing treatment plans & Coordination of care with the patient + minutes documented in this encounter Plan of Treatment Upcoming Encounters Date Type Department Care Team (Late st Contact Info) Description 03/20/2024 10:00 AM EST Office [place] [address] Tania Gates OD [facility] [place] [address] Scheduled Referrals Name Type Priority Associated Diagnoses [...] hyperlipidemia documented in this encounter Care Teams Classification Clerk Relationship Specialty Start Date End Date Karen Barbosa MD [address] [place] [address] PCP - General Family Medicine 10/04/22 documented as of this encounter
--- OUTSIDE RECORDS SUMMARY | 2023-11-07 02:27 | XMS_ITS | Encounter Summary ---
Author Organization [facility] [place] [address] Care Team Providers Care Physician Practice Manager Name Role Phone Karen Barbosa MD Primary Care Provider [phone] Encounter Details Date Type Department Care Team (Late st Contact Info) Description 07/25/2023 10:00 AM EDT Office [place] [address] Heather Aguirre APRN [facility] [place] [address] Type 2 diabetes mellitus without complication, without [...] drink = 0.6 oz pur e alcohol) [facility] Inpatient Questions Answer Date Recorded Does Anyone [...] or concerns. MIRTHA Rivera Department of Endocrinology [facility] documented in this encounter Progress Notes [...] Post-operative nausea and vomiting Had scope at [facility] and had vomiting after He was last [...] TWICE A DAY OneTouch Verio Flex meter [facility] TEST BLOOD GLUCOSE TWICE A DAY nywgzqbokji-gsnzcmmat-ligzybjl 100-62.5-25 mcg Disk with Device 1 puff [...] WITH BIOPSY performed by KIRSTEN DAMON at [facility] ENDOSCOPY PRO UPPER GI ENDOSCOPY, BIOPSY N/A 09/27/2018 UPPER GASTROINTESTINAL ENDOSCOPY,WITH BIOPSY SINGLE OR MULTIPLE (WRVU 2.49) performed by Luc Hdz MD at [facility] ENDOSCOPY PRO UPPER GI ENDOSCOPY, BIOPSY N/A 01/26/2021 EGD WITH BIOPSY (WRVU 2.49) performed by Nathaniel Azevedo MD at [facility] ENDOSCOPY ROTATOR CUFF REPAIR Left Allergies Allergen [...] Office Visit from 07/25/2023 in Endocrinology at [facility] Office Visit from 05/17/2023 in Vascular Surgery at [facility] Weight 134.1 kg (295 lb 9.6 oz) [...] 61 10/05/2022 No results found for: MICROALKEY, [id number] Outside Records: Date Order Result Cholesterol 146 [...] medication: no Peripheral or autonomic neuropathy: yes Claims Adjuster Crop: yes Macrovascular Coronary heart disease: yes Cerebrovascular [...] or concerns. MIRTHA Rivera Department of Endocrinology [facility] have reviewed the plan outlined above [...] 10:00 AM EST [place] [address] Tania Gates OD [facility] [place] [address] documented as of this encounter Results * (ABNORMAL) Hepatic Function Panel (07/25/2023 12:22 PM EDT) Protein, Total 7.1 6.1 - 8.0 g/dL [facility] Albumin 4.1 3.2 - 5.2 g/dL [facility] Aspartate Aminotransferase 16 0 - 39 unit/L [facility] Alanine Aminotransferase 21 0 - 55 unit/L [facility] Alkaline Phosphatase 142(H) 40 - 130 unit/L [facility] Bilirubin, Total 0.6 0.2 - 1.3 mg/dL [facility] Bilirubin, Direct 0.2 0.0 - 0.3 mg/dL [facility] Blood 07/25/2023 12:2 2 PM EDT 07/25/2023 12:39 PM EDT Narrative Resulting Agency Comment Spec In Lab Heather Cardona Salgueiro EVP MANAGING DIRECTOR CHEMISTRY ORDERA BLES [facility] [place] [address] * (ABNORMAL) Hemoglobin A1c (07/25/2023 12:22 PM EDT) Hemoglobin A1c 7.8(H) 4.3 - 5.6 % [facility] Comment: Reference Range: 4.3 [...] Mellitus, Diabetes Care 2013; 36: Suppl. 1, U20-65 Estimated Average Glucose 177 mg/dL [facility] Blood 07/25/2023 12:2 2 PM EDT 07/25/2023 12:39 PM EDT Narrative Resulting Agency Comment Spec In Lab Heather Blancogueiro EVP MANAGING DIRECTOR CHEMISTRY ORDERA BLES [facility] [place] [address] documented in this encounter Visit Diagnoses Diagnosis Type 2 diabetes mellitus without complication, without long-term current use of insulin- Primary Hypertriglyceridemia Pure hyperglyceridemia History of tobacco use Personal history of tobacco use, presenting hazards to health documented in this encounter Care Teams Physician Practice Manager Relationship Specialty Start Date End Date Karen Barbosa MD [address] [place] [address] PCP - General Family Medicine 10/04/22 documented as of this encounter
--- OUTSIDE RECORDS SUMMARY | 2023-11-07 02:27 | XMS_ITS | Encounter Summary ---
Author Organization [facility] [place] [address] Care Team Providers Care Wrecker Driver Name Role Phone Karen Barbosa MD Primary Care Provider [phone] Encounter Details Date Type Department Care Team [...] 10:00 AM EST [place] [address] Tania Gates OD [facility] [place] [address] documented as of this encounter Visit Diagnoses Not on filedocumented in this encounter Care Teams Wrecker Driver Relationship Specialty Start Date End Date Karen Barbosa MD [address] [place] [address] PCP - General Family Medicine 10/04/22 documented as of this encounter
--- OUTSIDE RECORDS SUMMARY | 2023-11-07 02:27 | XMS_ITS | Encounter Summary ---
[place] [address] Care Team Providers Care Superintendent Of Schools Name Role Phone Karen Barbosa MD Primary Care Provider [phone] Reason for Visit * Consultation (Routine) - Closed Specialty Diagnoses / Procedures Referred By Contac t Referred To Contact Diagnoses Type 2 diabetes mellitus with ESRD (end-stage renal disease) Jeovanny Lancaster MD [facility] [place] [address] Antonina Gutierrez, client services associate ID Status Reason Start Date Expiration Date V isits Requested Visits Authorized [id number] Closed Consult, Test & Treat 04/25/2023 04/24/2024 1 1 Encounter Details Date Type Department Care Team (Latest Contact Info) Description 07/25/2023 11:00 AM EDT Clinical Support [place] [address] Antonina Gutierrez, RN Type 2 diabetes mellitus without complication, without long-term current use of insulin Social History Tobacco Use Types Packs/Day Years Used Date Smoking Tobacco: Every Day Cigarettes 1 40 Smokeless Tobacco: Never Alcohol Use Standard Drinks/Week Comments Not Currently 7 (1 standard drink = 0.6 oz pur e alcohol) [facility] Inpatient Questions Answer Date Recorded Does Anyone [...] to face What is your language preference? Equ[place] Spoken: [place] Reading: [place] Barriers to Care/Learning/Indications for Individual DSMT Yes No No Barriers X Disease State Cognitive Disability Language Spoken Language Written [place] Language Financial Emotional/Behavioral Family Support Cultural Diversity [...] 30 minutes Referring Provider Jeovanny Lancaster MD Billing/Motor Vehicle Lecturer Sherie Manriquez MD documented in this encounter Plan of Treatment Upcoming Encounters Date Type Department Care Team (Late st Contact Info) Description 03/20/2024 10:00 AM EST Office [place] [address] Tania Gates OD [facility] [place] [address] Scheduled Referrals Name Type Priority Associated Diagnoses Orde r Schedule Referral to Diabetic Education Outpatient Referral Routine Type 2 diabetes mellitus with ESRD (end-stage renal disease) Ordered: 04/25/2023 documented as of this encounter Visit Diagnoses Diagnosis Type 2 diabetes mellitus without complication, without long-term current use of insulin documented in this encounter Care Teams Superintendent Of Schools Relationship Specialty Start Date End Date Karen Barbosa MD [address] [place] [address] PCP - General Family Medicine 10/04/22 documented as of this encounter
--- OUTSIDE RECORDS SUMMARY | 2023-11-07 02:27 | XMS_ITS | Encounter Summary ---
[place] [address] Care Team Providers Care Wrapper Stemmer Hand Name Role Phone Karen Barbosa MD Primary Care Provider [phone] Encounter Details Date Type Department Care Team (Latest Contact Info) Description 07/25/2023 12:35 PM EDT Laboratory Appointment Lab [address] [place] [address] Type 2 diabetes mellitus without [...] 10:00 AM EST Office Visit [place] [address] Tania Gates, [facility] [place] [address] documented as of this encounter Procedures Procedure [...] Hemoglobin A1c 7.8(H) 4.3 - 5.6 % [facility] Comment: Reference Range: 4.3 [...] Mellitus, Diabetes Care 2013; 36: Suppl. 1, S67-86 Estimated Average Glucose 177 mg/dL [facility] Blood 07/25/2023 12:2 2 PM EDT 07/25/2023 12:39 PM EDT Narrative Resulting Agency Comment Spec In Lab Heather Aguirre DRYWALL INSTALLER CHEMISTRY ORDERA BLES [facility] [place] [address] * (ABNORMAL) Hepatic Function Panel (07/25/2023 12:22 PM EDT) Protein, Total 7.1 6.1 - 8.0 g/dL [facility] Albumin 4.1 3.2 - 5.2 g/dL [facility] Aspartate Aminotransferase 16 0 - 39 unit/L [facility] Alanine Aminotransferase 21 0 - 55 unit/L [facility] Alkaline Phosphatase 142(H) 40 - 130 unit/L [facility] Bilirubin, Total 0.6 0.2 - 1.3 mg/dL [facility] Bilirubin, Direct 0.2 0.0 - 0.3 mg/dL [facility] Blood 07/25/2023 12:2 2 PM EDT 07/25/2023 12:39 PM EDT Narrative Resulting Agency Comment Spec In Lab Heather Aguirre DRYWALL INSTALLER CHEMISTRY ORDERA BLES [facility] [place] [address] documented in this encounter Visit Diagnoses Diagnosis Type 2 diabetes mellitus without complication, without long-term current use of insulin documented in this encounter Care Teams Wrapper Stemmer Hand Relationship Specialty Start Date End Date Karen Barbosa MD [address] [place] [address] [place] [address] PCP - General Family Medicine 10/04/22 documented as of this encounter
--- OUTSIDE RECORDS SUMMARY | 2023-11-07 02:27 | XMS_ITS | Encounter Summary ---
[place] [address] Care Team Providers Care Autocad Detailer Name Role Phone Karen Barbosa MD Primary Care Provider [phone] Encounter Details Date Type Department Care Team (Late st Contact Info) Description 05/04/2023 Telephone [place] [address] Radha Bernardo Social History Tobacco [...] 10:00 AM EST Office [place] [address] Tania Gates OD [facility] [place] [address] documented as of this encounter Visit Diagnoses Not on filedocumented in this encounter Care Teams Autocad Detailer Relationship Specialty Start Date End Date Karen Barbosa MD [address] [place] [address] PCP - General Family Medicine 10/04/22 documented as of this encounter
--- OUTSIDE RECORDS SUMMARY | 2023-11-07 02:27 | XMS_ITS | Encounter Summary ---
[place] [address] Care Team Providers Care Heel Turner Name Role Phone Karen Barbosa MD Primary Care Provider [phone] Reason for Visit * Diagnostic Test (Routine) - Closed Specialty Diagnoses / Procedures Referred By Contac t Referred To Contact Diagnoses Atherosclerosis of [place] artery of lower extremity, unspecified laterality, with unspecified presence of clinical manifestation Procedures DEONTE, legs, multiple levels Anamaria Isaacs, BEEF LUGGER [facility] [place] [address] [facility] Vascular Lab [address] [place] [address] Referral ID Status Reason Start Date Expiration Date V isits Requested Visits Authorized [id number] Closed Specialty Service Requested 03/22/2023 03/21/2024 1 1 Encounter Details Date Type Department Care Team (Latest Contact Info) Description 05/17/2023 8:30 AM [facility] [place] [address] Violet Almonte, RVT Atherosclerosis of [place]nak artery of lower extremity, unspecified laterality, with [...] 10:00 AM EST Office Visit Ophthalmology at [facility] [place] [address] Tania Gates OD [facility] [place] [address] documented as of this encounter Procedures Procedure Name Priority Date/Time Associated Diagnosis Comments DEONTE, LEGS, MULTIPLE LEVELS Routine 05/17/2023 7:48 AM EST Atherosclerosis of [place] artery of lower extremity, unspecified laterality, with unspecified presence of clinical manifestation documented in this encounter Results * DEONTE, legs, multiple levels (05/17/2023 7:48 AM EST) VB Text Report Department: Vascular Surgery Lab Patient: [id number] (BEL PATRICIO) CPT: 83924 Referring Physician: ANAMARIA ISAACS ?? Phone: Indications: [...] Isaacs APRN VASCULAR ORDERABLES Performing Organization Address City/State/[facility] Co de Phone Number VASCUBASE documented in this encounter Visit Diagnoses Diagnosis Atherosclerosis of [place] artery of lower extremity, unspecified laterality, with unspecified presence of clinical manifestation documented in this encounter Care Teams Heel Turner Relationship Specialty Start Date End Date Karen Barbosa MD [address] [place] [address] PCP - General Family Medicine 10/04/22 documented as of this encounter
--- OUTSIDE RECORDS SUMMARY | 2023-11-07 02:27 | XMS_ITS | Clinical Summary ---
[place] [address] Care Team Providers Care Cream Cheese Maker Name Role Phone Karen Barbosa MD Primary [...] for Pain. 06/07/2023 Active Baqsimi 3 mg/actuation [place], Non-AerosolIndicati ons:Type 2 diabetes mellitus without complication, [...] - S/P TNK prior to [place] [facility] [place] S/P Prasugrel & ASA load followed by maintenance ASA 81 mg & Prasugrel 10 mg - LVEDP 21 in the Restaurant Cashier - Prior to Cardiac Catheterization, noted to [...] Team Description 09/06/2023 Ancillary Procedure Radiology at [address] [address] Rosanna Clement MD 08/30/2023 Ancillary Procedure Radiology at [address] [address] Rosanna Clement MD 08/28/2023 2:30 PM EDT Office Visit [place] [address] Shira Gauthier MD Atherosclerosis of lower extremity with claudication 08/28/2023 1:30 PM EDT Tech Visit [place] [phone] 08/28/2023 1:30 PM EDT Tech [place] [address] Jenifer Franks Atherosclerosis of lower extremity with claudication 08/28/2023 Travel 08/09/2023 Transcribe Orders eDH Incoming Referrals [phone] Karen Barbosa MD Type 2 diabetes mellitus with diabetic chronic kidney disease, unspecified CKD stage, unspecified whether retirement insulin use; Stage 3a chronic kidney disease; Encounter for long-term (current) use of insulin from Last 3 Months Immunizations Name Administration [...] 10:00 AM EST Office [place] [address] Tania Gates, [facility] [place] [address] Health Maintenance Due Date Last Done Comments [...] EDT Atherosclerosis of lower extremity with claudication HEMOGLOBIN A1C Routine 07/25/2023 12:22 PM EDT Type 2 diabetes mellitus without complication, without long-term current use of insulin BASIC METABOLIC PANEL Routine 10/05/2022 8:43 AM EDT from Last 3 Months or Most Recently Relevant to Health Maintenance Results * Film Library- Storage Only MR Spine (09/06/2023 12:00 AM EDT) Narrative ARMANI MANNING - 10/17/2023 3:43 PM EDT This exam is auto-finalizing. It's purpose is for storage only. Rosanna DUKE FILM LIBRARY ORDERABLES [place], [place] * Film Library- Storage Only MR Wrist (08/30/2023 12:00 AM EDT) Narrative ARMANI MANNING - 10/17/2023 3:40 PM EDT This exam is auto-finalizing. It's purpose is for storage only. Rosanna Clement MD [facility] FILM LIBRARY ORDERABLES [place], [place] * Treadmill test - Vascular Lab (08/28/2023 1:24 PM EDT) VB Text Report Department: Vascular Surgery Lab Patient: [id number] (SAMY PATRICIO) CPT: [id number] Referring Physician: SHIRA GAUTHIER ?? Phone: Indications: claudication, ? exercise induced arterial disease Diabetes mellitus: yes Findings: Right ?Pressure ?? DEONTE ??Waveform ?? 1 min ??3 min ??5 min ?? Brachial ?? 105 ? DPA ?112 ? 0.97 ??Triphasic ? TREASURY ASSISTANT ?119 ? 1.03 ??Triphasic ?? 0.95 ?? 0.98 ?? 1.03 ?? Great Toe ??82 ?0.71 ? Left ? Pressure ?? DEONTE ??Waveform ?? 1 min ??3 min ??5 min ?? Brachial ?? 116 ? DPA ?112 ? 0.97 ??Triphasic ? TREASURY ASSISTANT ?126 ? 1.09 ??Triphasic ?? 1.07 ?? [...] Shira Gauthier MD VASCULAR ORDERABLES VASCUBASE * (ABNORMAL) Hemoglobin A1c (07/25/2023 12:22 PM EDT) Hemoglobin A1c 7.8(H) 4.3 - 5.6 % [facility] Comment: Reference Range: 4.3 - [...] Mellitus, Diabetes Care 2013; 36: Suppl. 1, S63-74 Estimated Average Glucose 177 mg/dL [facility] Blood 07/25/2023 12:2 2 PM EDT 07/25/2023 12:39 PM EDT Narrative Resulting Agency Comment Spec In Lab Heather Aguirre APRN CHEMISTRY ORDERA SERGIO [facility] [place] [address] * Basic Metabolic Panel (non-fasting) (10/05/2022 8:43 AM EDT) Glucose 160 65 - 199 mg/dL [facility] Comment:Diabetes: >=200 mg/d L plus symptoms Blood Urea Nitrogen 18 10 - 20 mg/dL [facility] Creatinine 1.35 0.80 - 1.50 mg/dL [facility] Sodium 137 135 - 145 mmol/L [facility] Potassium 4.2 3.5 - 5.0 mmol/L [facility] Comment: Please note: ??Patients with WBC >100,000 may have falsely elevated Potassium levels. ??For accurate Potassium quantification in these patients send serum separator tube (gold top) for subsequent determinations. ??Contact the Clinical Chemistry Laboratory if there are any questions. Chloride 98 98 - 107 mmol/L [facility] Carbon Dioxide 31 22 - 31 mmol/L [facility] Anion Gap 8 5 - 15 mmol/L [facility] Calcium 9.4 8.5 - 10.5 mg/dL [facility] Est Glomerular Filtration Rate 62 >=60 mL/min/1. 73 m?? [facility] Comment: This patient's estimated GFR [...] In Lab Rafy Wilkes MD CHEMISTRY ORDERABLES [facility] [place] [address] from Last 3 Months or Most Recently [...] capacity to make decision: Yes Care Teams Cream Cheese Maker Relationship Specialty Start Date End Date Karen Barbosa MD [address] [place] [address] PCP - General Family Medicine 10/04/22
--- OUTSIDE RECORDS SUMMARY | 2023-11-07 02:27 | XMS_ITS | Encounter Summary ---
Author Organization [facility] [place] [address] Care Team Providers Care Blue Line Operator Name Role Phone Karen Barbosa MD Primary Care Provider [phone] Encounter Details Date Type Department Care Team (Latest Contact Info) Description 08/28/2023 2:30 PM EDT Office [place] [address] Shira Gauthier MD [facility] [place] [address] Atherosclerosis of lower extremity with claudication Social [...] 10:00 AM EST [place] [address] Tania Gates OD [facility] [place] [address] documented as of this encounter Visit Diagnoses Diagnosis Atherosclerosis of lower extremity with claudication documented in this encounter Care Teams Blue Line Operator Relationship Specialty Start Date End Date Karen Barbosa MD [address] [place] [address] PCP - General Family Medicine 10/04/22 documented as of this encounter
--- OUTSIDE RECORDS SUMMARY | 2023-11-07 02:27 | XMS_ITS | Encounter Summary ---
[place] [address] Care Team Providers Care C 40A Crew Chief Name Role Phone Karen Barbosa MD Primary Care Provider [phone] Encounter Details Date Type Department Care Team (Late st Contact Info) Description 01/04/2023 Ancillary Procedure [place] [phone] Karen Barbosa MD [address] [place] [id number] Social History Tobacco Use Types Packs/Day Years Used Date Smoking Tobacco: Every Day Cigarettes 1 40 Smokeless Tobacco: Never Alcohol Use Standard Drinks/Week Comments Yes 7 (1 standard drink = 0.6 oz pur e alcohol) [facility] Inpatient Questions Answer Date Recorded [...] 10:00 AM EST Office [place] [address] Tania Gates OD [facility] [place] [address] documented as of this encounter Procedures Procedure Name Priority Date/Time Associated Diagnosis Comments FILM LIBRARY STORAGE ONLY ULTRASOUND STUDY Routine 01/04/2023 12:00 AM EDT documented in this encounter Results * Film Library- Storage Only Ultrasound Study (01/04/2023 12:00 AM EDT) Narrative [facility] - 03/02/2023 9:44 PM EST This exam is auto-finalizing. It's purpose is for storage only. Karen Barbosa MD IMG FILM LIBRARY ORD ERABLES Performing Organization Address City/State/[facility] Co de Phone Number [place], [place] documented in this encounter Visit Diagnoses Not on filedocumented in this encounter Care Teams C 40A Crew Chief Relationship Specialty Start Date End Date Karen Barbosa MD [address] [place] [address] PCP - General Family Medicine 10/04/22 documented as of this encounter
--- OUTSIDE RECORDS SUMMARY | 2023-11-07 02:27 | XMS_ITS | Encounter Summary ---
Author Organization [facility] [place] [address] Care Team Providers Care Demi Chef Name Role Phone Karen Barbosa MD Primary Care Provider [phone] Encounter Details Date Type Department Care Team [...] 10:00 AM EST Office [place] [address] Tania Gates OD [facility] [place] [address] documented as of this encounter Visit Diagnoses Not on filedocumented in this encounter Care Teams Demi Chef Relationship Specialty Start Date End Date Karen Barbosa MD [address] [place] [address] PCP - General Family Medicine 10/04/22 documented as of this encounter
--- OUTSIDE RECORDS SUMMARY | 2023-11-07 02:27 | XMS_ITS | Encounter Summary ---
Author [place] [address] Care Team Providers Care Ware Finisher Name Role Phone Karen Barbosa MD Primary Care Provider Reason for Referral * Diagnostic Test (Routine) - Closed Specialty Diagnoses / Procedures Referred By Keith sanchez Referred To Contact Diagnoses Atherosclerosis of lower extremity with claudication Procedures Treadmill test - Vascular Lab Shira Gauthier MD [facility] [place] [address] [facility] Vascular Lab [address] [place] [phone] Referral ID Status Reason Start Date Expiration Date V isits Requested Visits Authorized [id number] Closed Specialty Service Requested 05/17/2023 05/16/2024 1 1 Reason for Visit * Consultation (Routine) - Authorized Specialty Diagnoses / Procedures Referred By Keith sanchez Referred To Contact Vascular Surgery Diagnoses Peripheral vascular disease, unspecified ROUTINE, /KOJO, Zarina Baldwin MD [facility] [address] [place] [address] [facility] Vascular Surg [address] [place] [phone] Referral ID Status Reason Start Date Expiration Date Visits Requested Visits Authorized [id number] Authorized Consult, Test & Treat PCP Updated and/or Approved 03/21/2023 03/20/2024 6 6 Encounter Details Date Type Department Care Team (Latest Contact Info) Description 05/17/2023 9:00 AM EST Office [place] [address] Shira Gauthier MD [facility] [place] [address] Atherosclerosis of lower extremity with [...] - S/P TNK prior to transfer to [facility] [place] - S/P Prasugrel & ASA load followed by maintenance ASA 81 mg & Prasugrel 10 mg - LVEDP 21 in the Flight Radio Operator - Prior to Cardiac Catheterization, noted to [...] GLUCOSE TWICE A DAY, Disp: , Rfl: [id number]-[id number] 100-62.5-25 mcg Disk with Device, 1 puff [...] extremities Psych- alert oriented X3 Extremity - Dales, warm, no ulceration, brisk capillary refill, no [...] 10:00 AM EST Office [place] [address] Tania Gates, [facility] [place] [address] documented as of this encounter Results * Treadmill test - Vascular Lab (08/28/2023 1:24 PM EDT) VB Text Report Department: Vascular Surgery Lab Patient: [id number] (MARIA TERESABEL VILLEGAS) CPT: [id number] Referring Physician: SHIRA GAUTHIER ?? Phone: Indications: claudication, ? exercise induced arterial disease Diabetes mellitus: yes Findings: Right ?Pressure ?? DEONTE ??Waveform ?? 1 min ??3 min ??5 min ?? Brachial ?? 105 ? DPA ?112 ? 0.97 ??Triphasic ? FLUME RIDE OPERATOR ?119 ? 1.03 ??Triphasic ?? 0.95 ?? 0.98 ?? 1.03 ?? Great Toe ??82 ?0.71 ? Left ? Pressure ?? DEONTE ??Waveform ?? 1 min ??3 min ??5 min ?? Brachial ?? 116 ? DPA ?112 ? 0.97 ??Triphasic ? FLUME RIDE OPERATOR ?126 ? 1.09 ??Triphasic ?? 1.07 ?? [...] claudication documented in this encounter Care Teams Ware Finisher Relationship Specialty Start Date End Date Karen Barbosa MD [address] [place] [address] [place] [address] PCP - General Family Medicine 10/04/22 documented as of this encounter
--- OUTSIDE RECORDS SUMMARY | 2023-11-07 02:27 | XMS_ITS | Encounter Summary ---
[place] [address] Care Team Providers Care Telephone Order Dispatcher Name Role Phone Karen Barbosa MD Primary Care Provider [phone] Encounter Details Date Type Department Care Team (Late st Contact Info) Description 05/25/2023 Telephone [place] [phone] Jaylin Chew Social History Tobacco Use Types [...] 10:00 AM EST Office [place] [address] Tania Gates OD [facility] [place] [place] [address] documented as of this encounter Visit Diagnoses Not on filedocumented in this encounter Care Teams Telephone Order Dispatcher Relationship Specialty Start Date End Date Karen Barbosa MD [address] [place] [address] PCP - General Family Medicine 10/04/22 documented as of this encounter
--- OUTSIDE RECORDS SUMMARY | 2023-11-07 02:27 | XMS_ITS | Encounter Summary ---
[place] [address] Care Team Providers Care Product Safety Head Name Role Phone Karen Barbosa MD Primary Care Provider [phone] Encounter Details Date Type Department Care Team (Late st Contact Info) Description 05/17/2023 Telephone [place] [phone] Luc Tai Social History Tobacco Use Types Packs/Day Years Used Date Smoking Tobacco: Every Day Cigarettes 1 40 Smokeless Tobacco: Never Alcohol Use Standard Drinks/Week Comments Not Currently 7 (1 standard drink = 0.6 oz pur e alcohol) [facility] Inpatient Questions Answer Date Recorded Does Anyone [...] 10:00 AM EST Office [place] [address] Tania Gates OD [facility] [place] [address] documented as of this encounter Visit Diagnoses Not on filedocumented in this encounter Care Teams Product Safety Head Relationship Specialty Start Date End Date Karen Barbosa MD [address] [place] [address] PCP - General Family Medicine 10/04/22 documented as of this encounter
--- OUTSIDE RECORDS SUMMARY | 2023-11-07 02:27 | XMS_ITS | Encounter Summary ---
Author Organization [facility] [place] [address] Care Team Providers Care Hand Screen Printer Name Role Phone Karen Barbosa MD Primary Care Provider [phone] Encounter Details Date Type Department Care Team [...] 10:00 AM EST Office [place] [address] [facility] [place] [address] documented as of this encounter Visit Diagnoses Not on filedocumented in this encounter Care Teams Hand Screen Printer Relationship Specialty Start Date End Date Karen Barbosa MD [address] [place] [address] PCP - General Family Medicine 10/04/22 documented as of this encounter
--- OUTSIDE RECORDS SUMMARY | 2023-11-07 02:27 | XMS_ITS | Encounter Summary ---
[place] [address] Care Team Providers Care New Autos Delivery Driver Name Role Phone Karen Barbosa MD Primary Care Provider Reason for Visit * Diagnostic Test (Routine) - Closed Specialty Diagnoses / Procedures Referred By Keith sanchez Referred To Contact Diagnoses Atherosclerosis of lower extremity with claudication Procedures Treadmill test - Vascular Lab Shira Gauthier MD [facility] [place] [address] [facility] [address] [address] Referral ID Status Reason Start Date Expiration Date V isits Requested Visits Authorized [id number] Closed Specialty Service Requested 05/17/2023 05/16/2024 1 1 Encounter Details Date Type Department Care Team (Late st Contact Info) Description 08/28/2023 1:30 PM EDT Tech Visit [place] [address] Jenifer Franks Atherosclerosis of lower [...] 10:00 AM EST Office Visit Ophthalmology at [facility] [place] [address] Tania Gates OD [facility] [address] documented as of this encounter Procedures Procedure Name Priority Date/Time Associated Diagnosis Comments TREADMILL - VASCULAR Routine 08/28/2023 1:24 PM EDT Atherosclerosis of lower extremity with claudication documented in this encounter Results * Treadmill test - Vascular Lab (08/28/2023 1:24 PM EDT) VB Text Report Department: Vascular Surgery Lab Patient: [id number] (BEL PATRICIO) CPT: [id number] Referring Physician: SHIRA GAUTHIER ?? Phone: Indications: claudication, ? exercise induced arterial disease Diabetes mellitus: yes Findings: Right ?Pressure ?? DEONTE ??Waveform ?? 1 min ??3 min ??5 min ?? Brachial ?? 105 ? DPA ?112 ? 0.97 ??Triphasic ? KNIFE GLAZER ?119 ? 1.03 ??Triphasic ?? 0.95 ?? 0.98 ?? 1.03 ?? Great Toe ??82 ?0.71 ? Left ? Pressure ?? DEONTE ??Waveform ?? 1 min ??3 min ??5 min ?? Brachial ?? 116 ? DPA ?112 ? 0.97 ??Triphasic ? KNIFE GLAZER ?126 ? 1.09 ??Triphasic ?? 1.07 ?? [...] claudication documented in this encounter Care Teams New Autos Delivery Driver Relationship Specialty Start Date End Date Karen Barbosa MD [address] [place] [address] PCP - General Family Medicine 10/04/22 documented as of this encounter
--- OUTSIDE RECORDS SUMMARY | 2023-11-07 02:27 | XMS_ITS | Encounter Summary ---
Author Organization [facility] [place] [address] Care Team Providers Care Client Executive Name Role Phone Karen Barbosa MD Primary Care Provider [phone] Encounter Details Date Type Department Care Team [...] 10:00 AM EST Office [place] [address] Tania Gates OD [facility] [place] [address] documented as of this encounter Visit Diagnoses Not on filedocumented in this encounter Care Teams Client Executive Relationship Specialty Start Date End Date Karen Barbosa MD [address] [place] [address] PCP - General Family Medicine 10/04/22 documented as of this encounter
--- OUTSIDE RECORDS SUMMARY | 2023-11-07 02:27 | XMS_ITS | Encounter Summary ---
Author Organization [facility] [place] [address] Care Team Providers Care Plant Wire Chief Name Role Phone Karen Barbosa MD Primary Care Provider [phone] Encounter Details Date Type Department Care Team [...] AM EST Office [place] [address] Tania Gates OD [facility] [place] [address] documented as of this encounter Visit Diagnoses Not on filedocumented in this encounter Care Teams Plant Wire Chief Relationship Specialty Start Date End Date Karen Barbosa MD [address] [place] [address] PCP - General Family Medicine 10/04/22 documented as of this encounter
--- OUTSIDE RECORDS SUMMARY | 2023-11-07 02:27 | XMS_ITS | Encounter Summary ---
[place] [address] Care Team Providers Care Window Shade Cutter And Mounter Name Role Phone Karen Barbosa MD Primary Care Provider Encounter Details Date Type Department Care Team (Late st Contact Info) Description 08/28/2023 1:30 PM EDT Tech [place] [address] Social History Tobacco Use Types Packs/Day Years Used Date Smoking Tobacco: Every Day Cigarettes 1 40 Smokeless Tobacco: Never Alcohol Use Standard Drinks/Week Comments Not Currently 7 (1 standard drink = 0.6 oz pur e alcohol) [facility] Inpatient Questions Answer Date Recorded Does [...] 10:00 AM EST Office [place] [address] Tania Gates OD [facility] [place] [address] documented as of this encounter Visit Diagnoses Not on filedocumented in this encounter Care Teams Window Shade Cutter And Mounter Relationship Specialty Start Date End Date Karen Barbosa MD [address] [facility] [place] [address] PCP - General Family Medicine 10/04/22 documented as of this encounter
--- OUTSIDE RECORDS SUMMARY | 2023-11-07 02:27 | XMS_ITS | Encounter Summary ---
[place] [address] Care Team Providers Care Brick Picker Name Role Phone Karen Barbosa MD Primary Care Provider Reason for Visit * Reason Comments Pseudophakia Encounter Details Date Type Department Care Team (Late st Contact Info) Description 03/09/2023 10:40 AM EST Office [place] [address] Tania Gates, [facility] [place] [place] [address] Diabetic eye exam; Pseudophakia of right eye; [...] today in polycarbonate and advised radio time salesperson wear for eye protection! - Findings and concerns discussed with Samy and he expressed understanding. CEE 9-12 mos Eyeglass Final Rx Eyeglass Final Rx Sphere Cylinder Dist VA Add Near VA Right [place]stone Sphere 20/15-1 +2.50 20/20 Left Balance Sphere 20/400 +2.50 unable Expiration Date: 03/09/2025 Polycarbonate. documented in this encounter Plan of Treatment Upcoming Encounters Date Type Department Care Team (Late st Contact Info) Description 03/20/2024 10:00 AM EST [place] [address] Tania Gates, OD [facility] [place] [address] documented as of this encounter Visit Diagnoses Diagnosis Diabetic eye exam Examination of eyes and vision Pseudophakia of right eye Lens replaced by other means History of YAG laser capsulotomy of lens, right Age-related nuclear cataract of left eye Senile nuclear sclerosis History of eye injury Personal history of other injury Astigmatism of both eyes with presbyopia documented in this encounter Care Teams Brick Picker Relationship Specialty Start Date End Date Karen Barbosa MD [address] [place] [address] PCP - General Family Medicine 10/04/22 documented as of this encounter
--- OUTSIDE RECORDS SUMMARY | 2023-11-07 02:27 | XMS_ITS | Encounter Summary ---
[place] [address] Care Team Providers Care School Examiner Name Role Phone Karen Barbosa MD Primary Care Provider Encounter Details Date Type Department Care Team (Late st Contact Info) Description 09/06/2023 Ancillary Procedure Radiology at [facility] [address] [place] [phone] Rosanna Clement MD [address] [place] [address] Social History Tobacco Use Types Packs/Day Years [...] 10:00 AM EST Office [place] [address] Tania Gates OD [facility] [place] [address] documented as of this encounter Procedures Procedure Name Priority Date/Time Associated Diagnosis Comments FILM LIBRARY STORAGE ONLY MR SPINE Routine 09/06/2023 12:00 AM EDT documented in this encounter Results * Film Library- Storage Only MR Spine (09/06/2023 12:00 AM EDT) Narrative [facility] - 10/17/2023 3:43 PM EDT This exam is auto-finalizing. It's purpose is for storage only. Rosanna Clement MD IMG FILM LIBRARY ORDERABLES Performing Organization Address City/State/[facility] Co de Phone Number [place], [place] documented in this encounter Visit Diagnoses Not on filedocumented in this encounter Care Teams School Examiner Relationship Specialty Start Date End Date Karen Barbosa MD [address] [place] [address] PCP - General Family Medicine 10/04/22 documented as of this encounter
--- OUTSIDE RECORDS SUMMARY | 2023-11-07 02:27 | XMS_ITS | Encounter Summary ---
[place] [address] Care Team Providers Care Hole Digger Operator Name Role Phone Karen Barbosa MD Primary Care Provider Encounter Details Date Type Department Care Team (Late st Contact Info) Description 04/24/2023 Ancillary Procedure Radiology at [facility] [address] [place] [id number] Rosanna Clement MD [address] [place] [address] Social History Tobacco Use Types Packs/Day Years [...] 10:00 AM EST Office [place] [address] Tania Gates OD [facility] [place] [address] documented as of this encounter Procedures Procedure Name Priority Date/Time Associated Diagnosis Comments FILM LIBRARY STORAGE ONLY DX WRIST Routine 04/24/2023 12:00 AM EST documented in this encounter Results * Film Library- Storage Only DX Wrist (04/24/2023 12:00 AM EST) Narrative [facility] - 10/17/2023 3:37 PM EDT This exam is auto-finalizing. It's purpose is for storage only. Rosanna Clement MD IMG FILM LIBRARY ORDERABLES Performing Organization Address City/State/[facility] Co de Phone Number [place], [place] documented in this encounter Visit Diagnoses Not on filedocumented in this encounter Care Teams Hole Digger Operator Relationship Specialty Start Date End Date Karen Barbosa MD [address] [place] [id number] PCP - General Family Medicine 10/04/22 documented as of this encounter
--- OUTSIDE RECORDS SUMMARY | 2023-11-07 02:27 | XMS_ITS | Encounter Summary ---
[place] [address] Care Team Providers Care Professor Criminal Justice Name Role Phone Karen Barbosa MD Primary Care Provider Encounter Details Date Type Department Care Team (Late st Contact Info) Description 08/30/2023 Ancillary Procedure Radiology at [facility] [address] [place] [id number] Rosanna Clement MD [address] [place] [address] Social History Tobacco Use Types Packs/Day Years [...] 10:00 AM EST Office [place] [address] Tania Gates OD [facility] [place] [address] documented as of this encounter Procedures Procedure Name Priority Date/Time Associated Diagnosis Comments FILM LIBRARY STORAGE ONLY MR WRIST Routine 08/30/2023 12:00 AM EDT documented in this encounter Results * Film Library- Storage Only MR Wrist (08/30/2023 12:00 AM EDT) Narrative [facility] - 10/17/2023 3:40 PM EDT This exam is auto-finalizing. It's purpose is for storage only. Rosanna Clement MD IMG FILM LIBRARY ORDERABLES Performing Organization Address City/State/[facility] Co de Phone Number [place], [place] documented in this encounter Visit Diagnoses Not on filedocumented in this encounter Care Teams Professor Criminal Justice Relationship Specialty Start Date End Date Karen Barbosa MD [address] [place] [id number] PCP - General Family Medicine 10/04/22 documented as of this encounter
--- OUTSIDE RECORDS SUMMARY | 2023-11-07 02:27 | XMS_ITS | Encounter Summary ---
[place] [address] Care Team Providers Care Pre Press Proofer Name Role Phone Karen Barbosa MD Primary Care Provider [phone] Reason for Referral * Consultation (Routine) - Authorized Specialty Diagnoses / Procedures Referred By Contadrian t Referred To Contact Nephrology Diagnoses Type 2 diabetes mellitus with diabetic chronic kidney disease, unspecified CKD stage, unspecified whether half-way insulin use Stage 3a chronic kidney disease Encounter for long-term (current) use of insulin Amanda Quan, FINANCIAL ASSISTANT [address] [place] [address] [facility] [address] [place] [phone] Referral ID Status Reason Start Date Expiration Date Visits Requested Visits Authorized [id number] Authorized Consult, Test & Treat PCP Updated and/or Approved 08/09/2023 08/05/2024 6 6 Encounter Details Date Type Department Care Team (Late st Contact Info) Description 08/09/2023 Transcribe Orders eDH Incoming Referrals [phone] Karen Barbosa MD [address] [place] [address] Type 2 diabetes mellitus with diabetic chronic kidney disease, unspecified CKD stage, unspecified whether half-way insulin use; Stage 3a chronic kidney disease; Encounter for long-term (current) use of insulin Social History Tobacco Use Types Packs/Day Years Used Date Smoking Tobacco: Every Day Cigarettes 1 40 Smokeless Tobacco: Never Alcohol Use Standard Drinks/Week Comments Not Currently 7 (1 standard drink = 0.6 oz pur e alcohol) [facility] Inpatient Questions Answer Date Recorded Does [...] 10:00 AM EST Office [place] [address] Tania Gates OD [facility] [place] [address] Scheduled Referrals Name Type Priority Associated Diagnoses Orde r Schedule Referral to Nephrology Outpatient Referral Routine Type 2 diabetes mellitus with diabetic chronic kidney disease, unspecified CKD stage, unspecified whether intermediate school teacher insulin use Stage 3a chronic kidney disease Encounter for long-term (current) use of insulin Ordered: 08/09/2023 documented as of this encounter Visit Diagnoses Diagnosis Type 2 diabetes mellitus with diabetic chronic kidney disease, unspecified CKD stage, unspecified whether half-way insulin use Stage 3a chronic kidney disease Encounter for long-term (current) use of insulin documented in this encounter Care Teams Pre Press Proofer Relationship Specialty Start Date End Date Karen Barbosa MD [address] [place] [address] PCP - General Family Medicine 10/04/22 documented as of this encounter
--- OUTSIDE RECORDS SUMMARY | 2023-11-07 02:27 | XMS_ITS | Encounter Summary ---
[place] [address] Care Team Providers Care Supervisor Sheet Manufacturing Name Role Phone Karen Barbosa MD Primary Care Provider Reason for Referral * Consultation (Routine) - Authorized Specialty Diagnoses / Procedures Referred By Contac t Referred To Contact Vascular Surgery Diagnoses Peripheral vascular disease, unspecified ROUTINE, /KOJO, DEONTE Zarina Dinh MD [facility] [address] [place] [address] [facility] [address] [place] [address] Referral ID Status Reason Start Date Expiration Date Visits Requested Visits Authorized [id number] Authorized Consult, Test & Treat PCP Updated and/or Approved 03/21/2023 03/20/2024 6 6 Encounter Details Date Type Department Care Team (Late st Contact Info) Description 03/21/2023 Transcribe Orders eDH Incoming Referrals [phone] Zarina Dinh MD [facility] [address] [place] [address] Peripheral vascular disease, unspecified Social [...] 10:00 AM EST [place] [address] Tania Gates OD [facility] [place] [address] Scheduled Referrals Name Type Priority Associated Diagnoses Orde r Schedule Referral to Vascular Surgery Outpatient Referral Routine Peripheral vascular disease, unspecified Ordered: 03/21/2023 documented as of this encounter Visit Diagnoses Diagnosis Peripheral vascular disease, unspecified documented in this encounter Care Teams Supervisor Sheet Manufacturing Relationship Specialty Start Date End Date Karen Barbosa MD [address] [facility] [place] [address] PCP - General Family Medicine 10/04/22 documented as of this encounter
--- OUTSIDE RECORDS SUMMARY | 2023-11-07 02:28 | XMS_ITS | Encounter Summary ---
[place] [address] Care Team Providers Care Analysis Or Research Safety Inspector Name Role Phone Karen Barbosa MD Primary Care Provider [phone] Encounter Details Date Type Department Care Team (Late st Contact Info) Description 10/04/2022 External [place] [address] Social History Tobacco Use Types [...] 10:00 AM EST Office Visit [place] [address] Tania Gates OD [facility] [place] [address] documented as of this encounter Procedures Procedure Name Priority Date/Time Associated Diagnosis Comments ECG SCAN Routine 10/04/2022 11:38 AM EDT documented in this encounter Results * Scan Doc: ECG (10/04/2022 11:38 AM EDT) Historical Provider MD KUMAR MGR SCAN EX T ORDR/RSLT documented in this encounter Visit Diagnoses Not on filedocumented in this encounter Care Teams Analysis Or Research Safety Inspector Relationship Specialty Start Date End Date Karen Barbosa MD [address] [place] [address] PCP - General Family Medicine 10/04/22 documented as of this encounter
--- OUTSIDE RECORDS SUMMARY | 2023-11-07 02:28 | XMS_ITS | Encounter Summary ---
Author Organization [facility] [place] [address] Care Team Providers Care Career Technical Counselor Name Role Phone Robinson Vazquez APRN Primary Care Provider [phone] Encounter Details Date Type Department Care Team (Latest Contact Info) Description 08/29/2022 5:00 PM EDT Procedure [place] [address] José Miguel [place] MD [facility] [place] [address] PCO (posterior capsular opacification), right; Pseudophakia of [...] 10:00 AM EST Office [place] [address] Tania Gates, [facility] [place] [address] Pending Results Name Type Priority Associated Diagnoses [...] means documented in this encounter Care Teams Career Technical Counselor Relationship Specialty Start Date End Date Robinson Vazquez, PUBLIC HEALTH MICROBIOLOGIST [address] [place] [address] PCP - General Family Medicine 12/11/20 10/03/22 documented as of this encounter
--- OUTSIDE RECORDS SUMMARY | 2023-11-07 02:28 | XMS_ITS | Encounter Summary ---
[place] [address] Care Team Providers Care Weight Trainer Name Role Phone Robinson Vazquez APRN Primary Care Provider [phone] Reason for Referral * Diagnostic Test (Routine) - Closed Specialty Diagnoses / Procedures Referred By Keith t Referred To Contact Diagnoses Atherosclerosis of [place] artery of lower extremity, unspecified laterality, with unspecified presence of clinical manifestation Procedures DEONTE, legs, multiple levels Vinicius Cartagena APRN [facility] [place] [address] [facility] [address] [place] [address] Referral ID Status Reason Start Date Expiration Date V isits Requested Visits Authorized [id number] Closed Specialty Service Requested 02/08/2022 02/08/2023 1 1 Encounter Details Date Type Department Care Team (Late st Contact Info) Description 02/08/2022 Orders [place] [address] Vinicius Cartagena APRN [facility] [place] [address] Atherosclerosis of [place] artery of lower extremity, unspecified laterality, with [...] 10:00 AM EST Office [place] [address] Tania Gates OD [facility] [place] [address] documented as of this encounter Results * DEONTE, legs, multiple levels (02/24/2022 9:03 AM EST) VB Text Report Department: Vascular Surgery Lab Patient: [id number] (SAMY PATRICIO) CPT: [id number] Referring Physician: VINICIUS CARTAGENA APRN ?? Indications: [...] VASCUBASE 02/24/2022 9:03 AM EST Vinicius Cartagena AUTOMOTIVE MECHANIC VASCULAR ORDERABLE S VASCUBASE documented in this encounter Visit Diagnoses Diagnosis Atherosclerosis of [place] artery of lower extremity, unspecified laterality, with unspecified presence of clinical manifestation documented in this encounter Care Teams Weight Trainer Relationship Specialty Start Date End Date Robinson Vazquez, AUTOMOTIVE MECHANIC [address] [place] [address] PCP - General Family Medicine 12/11/20 10/03/22 documented as of this encounter
--- OUTSIDE RECORDS SUMMARY | 2023-11-07 02:28 | XMS_ITS | Encounter Summary ---
Author Organization [facility] [place] [address] Care Team Providers Care Organ Fixer Name Role Phone Robinson Vazquez APRN Primary Care Provider [phone]- [phone] Encounter Details Date Type Department Care Team [...] 10:00 AM EST Office [place] [address] Tania Gates OD [facility] [place] [address] documented as of this encounter Visit Diagnoses Not on filedocumented in this encounter Care Teams Organ Fixer Relationship Specialty Start Date End Date Robinson Vazquez APRN [address] [place] [address] PCP - General Family Medicine 12/11/20 10/03/22 documented as of this encounter
--- OUTSIDE RECORDS SUMMARY | 2023-11-07 02:28 | XMS_ITS | Encounter Summary ---
Author Organization [facility] [place] [address] Care Team Providers Care Special Ed Assistant Name Role Phone Robinson Vazquez APRN Primary Care Provider [phone] Encounter Details Date Type Department Care Team (Late st Contact Info) Description 02/02/2022 Ancillary Procedure [place] [address] Robinson Vazquez APRN [address] [place], [place] [id number] Social History Tobacco Use Types Packs/Day Years [...] 10:00 AM EST Office [place] [address] Tania Gates OD [facility] [place] [address] documented as of this encounter [...] Vazquez APRN IMG FILM LIBRARY O RDERABLES [place], [place] documented in this encounter Visit Diagnoses Not on filedocumented in this encounter Care Teams Special Ed Assistant Relationship Specialty Start Date End Date Robinson Vazquez APRN [address] [place] [address] PCP - General Family Medicine 12/11/20 10/03/22 documented as of this encounter
--- OUTSIDE RECORDS SUMMARY | 2023-11-07 02:28 | XMS_ITS | Encounter Summary ---
[place] [address] Care Team Providers Care Plating Equipment Tender Name Role Phone Robinson Vazquez APRN Primary Care Provider [phone] Reason for Visit * Reason Comments Decreased Visual Acuity OD Encounter Details Date Type Department Care Team (Late st Contact Info) Description 08/29/2022 3:45 PM EDT Office Visit [place] [address] José Miguel [place] MD [facility] [place] [address] PCO (posterior capsular opacification), right (Primary Dx); [...] 10:00 AM EST Office Visit [place] [address] Tania Gates, [facility] [place] [address] documented as of this encounter Visit Diagnoses Diagnosis PCO (posterior capsular opacification), right- Primary After-cataract, unspecified Pseudophakia of right eye Lens replaced by other means documented in this encounter Care Teams Plating Equipment Tender Relationship Specialty Start Date End Date Robinson Vazquez, JOVANI [address] [place] [address] PCP - General Family Medicine 12/11/20 10/03/22 documented as of this encounter
--- OUTSIDE RECORDS SUMMARY | 2023-11-07 02:28 | XMS_ITS | Encounter Summary ---
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 Name Role Phone Karen Barbosa MD Primary Care Provider [phone] Reason for Visit * Auth/Cert (Routine) Specialty Diagnoses / Procedures Referred By Keith t Referred To Contact Diagnoses Unstable angina Chest Pain Yosef Wilkes MD [facility] [place] [address] [facility] Referral ID Status Reason Start Date Expiration Date Visits Re quested Visits Authorized [id number] 1 1 Encounter Details Date Type Department Care Team (Late st Contact Info) Description 10/05/2022 12:30 PM EDT - 10/05/2022 1:30 PM EDT [place] [address] Amanda Aleman MD [facility] [place] [address] CARDIAC CATHETERIZATION Social History Tobacco Use Types [...] Patricio Jr. Patient Age: 56 y.o. Language: Tanzanian Admit date: 10/04/2022 Discharge date and time: [...] Information: MD Anny Oh PA-C Cardiovascular Medicine [phone] Discharge Diagnoses (Hospital Problems) and Secondary Diagnoses [...] without sciatica Operations/Major Procedures and CV studies: [facility] 10/05/22: Hemodynamics: Left Heart Pressures [...] hypertension, hyperlipidemia comes into the ED at [facility] for chest pain. Patient reports having [...] and plavix and patient was transferred to [facility] for unstable angina. Patient still reports having [...] Sheng Acosta. presented as hospital transfer from [facility] for chest pain concerning for unstable angina. At [facility], Troponin negative and EKG without ischemic changes though chest pain at rest without relief of nitro x 3 on 10/04/22. He was loaded with ASA 325mg x1 and clopidogrel (10/04/22), and IV heparin with resolution of chest pain. Home metoprolol and high intensity atorvastatin continued. Transferred to [facility] for further workup which included TTE 10/05/2022 showing preserved LVEF without regional WMAs. LHC 10/05/2022 showing no new obstructive disease and patent prior stents. Cath access site remained stable following procedure. Ambulated post cath without angina. Patient and preferred to be discharged night of [facility]. Follow up with Dr. Kingston [...] by mouth daily. 25 mg Refills: 0 ekxzzzuascj-dswtfnaktivu-cmeytfjdhr 100-62.5-25 mcg Commonly known as: Trelegy Ellipta [...] of 8A-5PM please call the Cardiology Clinic [phone] to speak with a nurse. All other hours please call the [facility] [employer] [phone] and ask to speak to the radar systems engineer on-call. Return to work: One week Driving: No driving for 48 hours after cath Follow up Appointments: Doctor Where Phone # Date Time PCP Karen Barbosa MD [address] [place] [phone] 10/12/2022 11 AM Cardiology Padmini Kingston MD [facility] Cardiology [phone] 10/18/2022 11 AM Home oxygen therapy: N/A Arrangements for VNA/home care: N/A General Instructions None Future Appointments and Orders Future Appointments and Orders Future Appointments Provider Department Dept Phone 03/09/2023 10:40 AM Ramiro, Tania, OD; DILATION AND TEST, RAMIRO; TECH, RAMIRO Ophthalmologyat [facility] Arrive at: [facility] [employer] [facility] [employer] [phone] Discharge References/Attachments None Anny Ely PA-C 10/05/2022 [...] of 8A-5PM please call the Cardiology Clinic [phone] to speak with a nurse. All other hours please call the [facility] [facility] [employer] [facility] [phone] and ask to speak to the radar systems engineer on-call. Return to work: One week Driving: No driving for 48 hours after cath Follow up Appointments: Doctor Where Phone # Date Time PCP Karen Barbosa MD [address] [place] [phone] 10/12/2022 11 AM Cardiology Padmini Kingston MD [facility] Cardiology [phone] 10/18/2022 11 AM Home oxygen therapy: N/A [...] TEST BLOOD GLUCOSE TWICE A DAY 06/23/2020 pakacoiphtg-wurbxtfwr-xy lanter 100-62.5-25 mcg Disk with Device Inhale [...] note were not included. CARDIOLOGY APP2 - [facility] DAILY PROGRESS NOTE Page [phone] to reach a provider 03/10 Admit Date: [...] CPAP) who presents as hospital transfer from [facility] for unstable angina. Troponin negative and EKG [...] Discharge Location: PT: OT: PCP Robinson Vazquez, HAZ TECH [phone] Anny Ely PA-C 10/05/2022 Cardiology Staff I [...] hypertension, hyperlipidemia comes into the ED at [facility] for chest pain. Patient reports having [...] and plavix and patient was transferred to [facility] for unstable angina. Patient still reports having [...] Post-operative nausea and vomiting Had scope at [facility] and had vomiting after Surgical History/Problems: Past Surgical History: Procedure Laterality Date CATARACT REMOVAL Right 2017 CORONARY ANGIOPLASTY WITH STENT PLACEMENT 08/2017 PRO UPPER GI ENDOSCOPY, BIOPSY 04/26/2011 EGD WITH BIOPSY performed by KIRSTEN DAMON at [facility] ENDOSCOPY PRO UPPER GI ENDOSCOPY, BIOPSY N/A 09/27/2018 UPPER GASTROINTESTINAL ENDOSCOPY,WITH BIOPSY SINGLE OR MULTIPLE (WRVU 2.49) performed by Luc Hdz MD at [facility] ENDOSCOPY PRO UPPER GI ENDOSCOPY, BIOPSY N/A 01/26/2021 EGD WITH BIOPSY (WRVU 2.49) performed by Nathaniel Azevedo MD at [facility] ENDOSCOPY ROTATOR CUFF REPAIR Left Significant [...] Misc TEST BLOOD GLUCOSE TWICE A DAY kwjauelhvey-onhcrwowt-tkevbpmi 100-62.5-25 mcg Disk with Device 1 puff [...] and plavix load and was transferred to [facility] for unstable angina TREATMENT PLAN: Unstable angina [...] Admitted From: Transfer from another hospital Location: [facility] Reason for Hospitalization: chest pain Covid Vaccination [...] Post-operative nausea and vomiting Had scope at [facility] and had vomiting after Hospitalizations Within the Past 30 Days: no previous admission in last 30 days Current Decision-Making Capacity: Self If AD's have not been completed the following surrogate would be surrogate decision maker per [place] surrogate decision making law. (Only good for 180 days) Any patient receiving care in [place] must abide by [place] law. The hierarchy for surrogate decision making [...] (i) The agent with financial power of dispatcher radioactive waste disposal or a conservator appointed in accordance with [...] Current DME: none Home Address confirmed as: [address] [address] Social & Family Supports: All names listed below confirmed with patient as current and correct Extended Emergency Contact Information Primary Emergency Contact: Danica Patricio Address: [address] [address] [facility] [employer] [facility] Relation: Spouse Secondary Emergency Contact: [place] [address] [facility] Relation: Child Current Care Provided by: [...] Product type* / Secondary Insurance: [employer] ONLY if patient has Medicare A&B - Does this patient have secondary insurance?: Yes ; Prescription Coverage: Yes Preferred Pharmacy: [facility] [address] [address] Status: Patient is a : No Primary Care Provider confirmed: Karen Barbosa MD [phone] Patient/Caregiver Goals of Treatment: return home Potential [...] for further details. ISABELLE Morataya 10/05/2022 Pager [phone] documented in this encounter Plan of Treatment Upcoming Encounters Date Type Department Care Team (Late st Contact Info) Description 03/20/2024 10:00 AM EST [place] [address] Tania Gates OD [facility] [place] [address] documented as of this encounter Procedures Procedure [...] Glucose, POC 181 65 - 199 mg/dL [facility] Comment: Supplemental ranges: <140 mg/dL before meals <180 mg/dL all other times of the day Blood 10/05/2022 7:49 PM EDT 10/05/2022 7:49 PM EDT Yosef Wilkes MD POINT OF CARE TEST O SAEID Performing Organization Address [facility] Co de Phone Number [facility] [address] * POCT Glucose (10/05/2022 5:24 PM EDT) Glucose, POC 112 65 - 199 mg/dL [facility] Comment: Supplemental ranges: <140 mg/dL before meals <180 mg/dL all other times of the day Blood 10/05/2022 5:24 PM EDT 10/05/2022 5:24 PM EDT Yosef Wilkes MD POINT OF CARE TEST O SAEID Performing Organization Address [facility] Co de Phone Number [facility] [address] * CARDIAC CATHETERIZATION (10/05/2022 5:15 PM EDT) Anatomical Region Laterality Modality Other Narrative 10/05/2022 5:57 PM EDT ?[facility] ? Cardiac Catheterization/Intervention Report ? Patient Name: Sheng, Samy Jr. S. ? Procedure Date: 10/05/2022 ? A #: [id number] ? Primary Physician: Amanda Aleman I ? Case #: [id number] ? File Name: [id number] ? Catheterization Order Number: [id number] ? [facility] ? Final Report [place], [place] ? Patient Name: ? Samy Jr. S. Ellaner ?ID#: ?[id number] ? : ?1965 ? Procedure Date: ? October 05, 2022 ?Case #: ? [id number] ? Room: ? 1 ? Case Physician: [...] procedure was Urgent. The indication for ?the labview programmer visit is ACS greater than 24 hrs. [...] 1965 ? Height: 183 cm ? Account: [id number] Age: 56 yrs ? Weight: 135 kg Gender: Male ?BSA: 2.5 m2 Ordering Physician: YOSEF WILKES Referring Physician: OSCAR ACOSTA Performed By: MOUNA Rollins Reason For Study: Unstable angina Exam Location: [facility]. Interpretation Summary Optison was used for left [...] right atrium now measured mildly dilated. Procedure Complete-[id number]. Image enhancement Optison was used for left [...] Date: :08 AMBP: 110/78 mmHg Patient Location: [address] : 1965 Height: 183 cm Account: [id number] Age: 56 yrs Weight: 135 kg Gender: Male BSA: 2.5 m2 Ordering Physician: YOSEF WILKES Referring Physician: OSCAR ACOSTA Performed By: MOUNA Rollins Reason For Study: Unstable angina Exam Location: [facility]. Interpretation Summary Optison was used for left [...] night, rightatrium now measured mildly dilated. Procedure Complete-[id number]. Image enhancement Optison was used for left [...] Glucose, POC 147 65 - 199 mg/dL [facility] Comment: Supplemental ranges: <140 mg/dL before meals <180 mg/dL all other times of the day Blood 10/05/2022 11:4 5 AM EDT 10/05/2022 11:45 AM EDT Yosef Wilkes MD POINT OF CARE TEST O RDERABLES [facility] [address] * Basic Metabolic Panel (non-fasting) (10/05/2022 8:43 AM EDT) Glucose 160 65 - 199 mg/dL [facility] Comment:Diabetes: >=200 mg/d L plus symptoms Blood Urea Nitrogen 18 10 - 20 mg/dL [facility] Creatinine 1.35 0.80 - 1.50 mg/dL [facility] Sodium 137 135 - 145 mmol/L [facility] Potassium 4.2 3.5 - 5.0 mmol/L [facility] Comment: Please note: ??Patients with WBC >100,000 may have falsely elevated Potassium levels. ??For accurate Potassium quantification in these patients send serum separator tube (gold top) for subsequent determinations. ??Contact the Clinical Chemistry Laboratory if there are any questions. Chloride 98 98 - 107 mmol/L [facility] Carbon Dioxide 31 22 - 31 mmol/L [facility] Anion Gap 8 5 - 15 mmol/L [facility] Calcium 9.4 8.5 - 10.5 mg/dL [facility] Est Glomerular Filtration Rate 62 >=60 mL/min/1. 73 m?? [facility] Comment: This patient's estimated GFR was [...] In Lab Yosef Wilkes MD CHEMISTRY ORDERABLES [facility] [place] [address] * Heparin (unfractionated) Level (10/05/2022 8:43 AM EDT) UF Heparin 0.11 IU/mL [facility] Comment: Heparin (anti-Xa) [...] MD HEMATOLOGY ORDERABLE S Performing Organization Address City/[facility]/ZIP Co de Phone Number [facility] [address] * POCT Glucose (10/05/2022 7:32 AM EDT) Glucose, POC 151 65 - 199 mg/dL [facility] Comment: Supplemental ranges: <140 mg/dL before meals <180 mg/dL all other times of the day Blood 10/05/2022 7:32 AM EDT 10/05/2022 7:32 AM EDT Yosef Wilkes MD POINT OF CARE TEST O RDERABLES Performing Organization Address City/[facility]/ZIP Co de Phone Number [facility] [address] * POCT Glucose (10/05/2022 4:08 AM EDT) Glucose, POC 179 65 - 199 mg/dL [facility] Comment: Supplemental ranges: <140 mg/dL before meals <180 mg/dL all other times of the day Blood 10/05/2022 4:08 AM EDT 10/05/2022 4:08 AM EDT Yosef Wilkes MD POINT OF CARE TEST O RDERABLES Performing Organization Address City/[facility]/ZIP Co de Phone Number [facility] [address] * POCT Glucose (10/05/2022 1:41 AM EDT) Glucose, POC 196 65 - 199 mg/dL [facility] Comment: Supplemental ranges: <140 mg/dL before meals <180 mg/dL all other times of the day Blood 10/05/2022 1:41 AM EDT 10/05/2022 1:41 AM EDT Yosef Wilkes MD POINT OF CARE TEST O RDERABLES Performing Organization Address City/[facility] Co de Phone Number [facility] [address] * Differential, Automated (10/05/2022 1:04 AM EDT) [facility] Neutrophil % 65.7 % [facility] Neutrophil Absolute 5.59 1.70 - 6.10 x10(3)/[facility] Lymph % 21.5 % [facility] Lymphocytes Abs 1.8 0.9 - 3.2 x10(3)/[facility] Monocyte % 8.5 % [facility] Monocyte Abs 0.7 0.3 - 0.9 x10(3)/[facility] Eos % 3.1 % [facility] Eosinophils Abs 0.3 0.0 - 0.4 x10(3)/[facility] Basophil % 0.8 % [facility] Baso Absolute 0.1 0.0 - 0.1 x10(3)/[facility] Immature Gran % 0.40 % [facility] Comment: Immature granulocytes(IG's)percentage and absolute count will include metamyelocytes, myelocytes, and promyelocytes. Blood smears from CBCs yielding IG's will be scanned manually for concordance. If this scan disagrees with the automated IG or if promyelocytes are noted, a manual differential will be performed. Immature Gran Absolute 0.03 0.00 - 0.04 x10(3)/mcL [facility] Blood 10/05/2022 1:04 AM EDT 10/05/2022 1:14 AM EDT Narrative Resulting Agency Comment Spec In Lab Teddy Willett MD HEMATOLOGY ORDERABLE S Performing Organization Address City/[facility]/ZIP Co de Phone Number [facility] [address] * (ABNORMAL) Hemogram (10/05/2022 1:04 AM EDT) White Blood Cell 8.5 4.0 - 9.5 x10(3)/mc L [facility] Red Blood Cell 5.63(H) 4.58 - 5.54 x10(6)/mc L [facility] Hemoglobin 16.6(H) 13.7 - 16.5 g/dL [facility] Hematocrit 51.0(H) 40.5 - 48.5 % [facility] Mean Cell Volume 90.6 82.9 - 93.1 fL [facility] Mean Cell Hemoglobin 29.5 27.5 - 32.1 pg [facility] Mean Cell Hemoglobin Concentration 32.5 32.0 - 35.7 g/dL [facility] Platelet 203 145 - 357 x10(3)/mc L [facility] RDW Standard Deviation 47.6(H) 36.0 - 45.0 fL [facility] RDW coefficient of variation 14.3(H) 11.4 - 13.8 % [facility] Mean Platelet Volume 9.7 7.6 - 12.9 fL [facility] NRBC% auto 0.0 % [facility] NRBC Absolute 0.000 0.000 - 0.000 x10(3)/mc L [facility] Blood 10/05/2022 1:04 AM EDT 10/05/2022 1:14 AM EDT Narrative Resulting Agency Comment Spec In Lab Teddy Willett MD HEMATOLOGY ORDERABLE S Performing Organization Address City/[facility]/ZIP Co de Phone Number [facility] [place] [address] * Heparin (unfractionated) Level (10/05/2022 1:04 AM EDT) Pathologist [facility] UF Heparin 0.11 IU/mL [facility] Comment: Heparin (anti-Xa) levels should [...] Lab Teddy Willett MD HEMATOLOGY ORDERABLE S [facility] [place] [address] * (ABNORMAL) Glucose, fasting (10/05/2022 1:04 AM EDT) Pathologist [facility] Glucose Fasting 188(H) 65 - 99 mg/dL [facility] Comment: ?Fasting* Glucose Interpretive [...] Position Statement from the [place] [employer]. ??Diabetes Care, Volume 33, Supplement 1, Mar 2009 Blood 10/05/2022 1:04 AM EDT 10/05/2022 1:14 AM EDT Narrative Resulting Agency Comment Spec In Lab Teddy Willett MD CHEMISTRY ORDERABLES [facility] [place] [address] * Triglyceride (10/05/2022 1:04 AM EDT) Triglyceride 355 mg/dL [facility] Comment: Average Risk/Lower Risk: <150 mg/dL Borderline High Risk: 150-199 mg/dL High Risk: 200-499 mg/dL Very High Risk: >hg=361 mg/dL Blood 10/05/2022 1:04 AM EDT 10/05/2022 1:14 AM EDT Narrative Resulting Agency Comment Spec In Lab Teddy Willett MD CHEMISTRY ORDERABLES Performing Organization Address City/[facility]/ZIP Co de Phone Number [facility] [place] [address] * HDL/Cholesterol Profile (10/05/2022 1:04 AM EDT) Cholesterol, Total 133 mg/dL [facility] Comment: Lower Risk: <200 mg/dL Average Risk: 200-239 mg/dL Higher Risk: >gr=589 mg/dL HDL Cholesterol 32 mg/dL [facility] Comment: Males: ?? Higher Risk: <40 mg/dL Females: ?? Higher Risk: <50 mg/dL Cholesterol/HDL Ratio 4.2 ratio [facility] Chol/HDL Interpretation See Note [facility] Comment: Lipid management should be guided by a patient? s ASCVD risk, goals and preferences. ACC/AHA Guidelines recommend high intensity statin if clinical ASCVD or LDL greater than or equal to 190 mg/dL. http://tinyurl.com/LEH-ECL-Yquvevcee Measure LDL if Total Cholesterol minus HDL Cholesterol is greater than 220 mg/dL. Adults aged 40-75 with LDL 70-189 mg/dL should have their 10 year ASCVD risk estimated with the ACC/AHA ASCVD risk electrical estimator http://tools.acc.org/ZAHWU-Wqsf-Yluxvrnmu/ Statin should be discussed if risk greater [...] Willett MD CHEMISTRY ORDERABLES Performing Organization Address City/[facility]/ZIP Co de Phone Number [facility] [address] * LDL Cholesterol, Direct (10/05/2022 1:04 AM EDT) LDL Cholesterol, Direct 61 mg/dL [facility] Comment: Lowest Risk: <100 mg/dL Lower Risk: 100-129 mg/dL Borderline High Risk: 130-159 mg/dL High Risk: 160-189 mg/dL Very High Risk: >rj=928 mg/dL Blood 10/05/2022 1:04 AM EDT 10/05/2022 1:14 AM EDT Narrative Resulting Agency Comment Spec In Lab Teddy Willett MD CHEMISTRY ORDERABLES Performing Organization Address City/[facility] Co de Phone Number [facility] [place] [address] * (ABNORMAL) Hemoglobin A1c (10/05/2022 1:04 AM EDT) Hemoglobin A1c 7.4(H) 4.3 - 5.6 % [facility] Comment: Reference Range: 4.3 - 5.6% [...] 1, S67-74 Estimated Average Glucose 165 mg/dL [facility] Comment: eAG equivalents for HbA1c percentages: [...] into estimated average glucose values. ??Diabetes Care 2008:31(8):1166-4116. Blood 10/05/2022 1:04 AM EDT 10/05/2022 1:14 AM EDT Narrative Resulting Agency Comment Spec In Lab Teddy Willett MD CHEMISTRY ORDERABLES [facility] [place] [address] * (ABNORMAL) POCT Glucose (10/04/2022 11:38 PM EDT) Glucose, POC 292(H) 65 - 199 mg/dL [facility] Comment: Supplemental ranges: <140 mg/dL before meals <180 mg/dL all other times of the day Blood 10/04/2022 11:3 8 PM EDT 10/04/2022 11:38 PM EDT Yosef Wilkes MD POINT OF CARE TEST O RDERABLES Performing Organization Address City/[facility]/[place] [address] * Differential, Automated (10/04/2022 9:56 PM EDT) Neutrophil % 61.6 % [facility] Neutrophil Absolute 5.06 1.70 - 6.10 x10(3)/[facility] Lymph % 26.1 % [facility] Lymphocytes Abs 2.1 0.9 - 3.2 x10(3)/[facility] Monocyte % 7.7 % [facility] Monocyte Abs 0.6 0.3 - 0.9 x10(3)/[facility] Eos % 3.5 % [facility] Eosinophils Abs 0.3 0.0 - 0.4 x10(3)/[facility] Basophil % 1.0 % [facility] Baso Absolute 0.1 0.0 - 0.1 x10(3)/[facility] Immature Gran % 0.10 % [facility] Comment: Immature granulocytes(IG's)percentage and absolute count will include metamyelocytes, myelocytes, and promyelocytes. Blood smears from CBCs yielding IG's will be scanned manually for concordance. If this scan disagrees with the automated IG or if promyelocytes are noted, a manual differential will be performed. Immature Gran Absolute 0.01 0.00 - 0.04 x10(3)/[facility] Blood 10/04/2022 9:56 PM EDT 10/04/2022 10:03 PM EDT Narrative Resulting Agency Comment Spec In Lab Vivek Lee MD HEMATOLOGY ORDERAB LES Performing Organization Address City/[facility]/[place] [address] * (ABNORMAL) Hemogram (10/04/2022 9:56 PM EDT) White Blood Cell 8.2 4.0 - 9.5 x10(3)/ L [facility] Red Blood Cell 5.80(H) 4.58 - 5.54 x10(6)/mc L [facility] Hemoglobin 17.1(H) 13.7 - 16.5 g/dL [facility] Hematocrit 52.6(H) 40.5 - 48.5 % [facility] Mean Cell Volume 90.7 82.9 - 93.1 fL [facility] Mean Cell Hemoglobin 29.5 27.5 - 32.1 pg [facility] Mean Cell Hemoglobin Concentration 32.5 32.0 - 35.7 g/dL [facility] Platelet 220 145 - 357 x10(3)/mc L [facility] RDW Standard Deviation 47.8(H) 36.0 - 45.0 fL [facility] RDW coefficient of variation 14.4(H) 11.4 - 13.8 % [facility] [facility] Mean Platelet Volume 9.6 7.6 - 12.9 fL [facility] NRBC% auto 0.0 % [facility] NRBC Absolute 0.000 0.000 - 0.000 x10(3)/ L [facility] Blood 10/04/2022 9:56 PM EDT 10/04/2022 10:03 PM EDT Narrative Resulting Agency Comment Spec In Lab Vivek Lee MD HEMATOLOGY ORDERAB LES Performing Organization Address City/State/[facility] Co de Phone Number [facility] [place] [address] * Troponin (10/04/2022 9:56 PM EDT) Troponin-T, High Sensitivity 16 <=22 ng/L [facility] Comment: This patient's troponin T concentration [...] troponin value can be found in the [facility] Laboratory Test Catalog Troponin - [facility] Laboratory Test Catalog Reference: Fourth Converse Definition of Myocardial Infarction. Journal of the [place] [employer] 2018;72:1339-5540 Blood 10/04/2022 9:56 PM EDT 10/04/2022 10:03 PM EDT Narrative Resulting Agency Comment Spec In Lab Teddy Willett MD CHEMISTRY ORDERABLES Performing Organization Address City/[facility]/ZIP Co de Phone Number [facility] [place] [address] * (ABNORMAL) POCT Glucose (10/04/2022 9:35 PM EDT) Glucose, POC 344(H) 65 - 199 mg/dL [facility] Comment: Supplemental ranges: <140 mg/dL before meals <180 mg/dL all other times of the day Blood 10/04/2022 9:35 PM EDT 10/04/2022 9:35 PM EDT Yosef Wilkes MD POINT OF CARE TEST O RDERABLES [facility] [place] [address] * POCT Glucose (10/04/2022 6:43 PM EDT) Glucose, POC 80 65 - 199 mg/dL [facility] Comment: Supplemental ranges: <140 mg/dL before meals <180 mg/dL all other times of the day Blood 10/04/2022 6:43 PM EDT 10/04/2022 6:43 PM EDT Yosef Wilkes MD POINT OF CARE TEST O RDERABLES Performing Organization Address [facility] Co de Phone Number [facility] [place] [address] * pro-Brain Natriuretic Peptide (10/04/2022 6:40 PM EDT) NT-proBNP 40 <=124 pg/mL [facility] Blood Venous Draw / Unknown 10/04/2022 6:40 PM EDT 10/04/2022 6:52 PM EDT Narrative Resulting Agency Comment Spec In Lab Vivek Lee MD CHEMISTRY ORDERABL ES Performing Organization Address [facility] de Phone Number [facility] [place] [address] * Magnesium (10/04/2022 6:40 PM EDT) Magnesium 1.07 0.69 - 1.07 mmol/L [facility] Blood Venous Draw / Unknown 10/04/2022 6:40 PM EDT 10/04/2022 6:52 PM EDT Narrative Resulting Agency Comment Spec In Lab Vivek Lee MD CHEMISTRY ORDERABL ES Performing Organization Address [facility] de Phone Number [facility] [place] [address] * (ABNORMAL) Basic Metabolic Panel (non-fasting) (10/04/2022 6:40 PM EDT) Glucose 75 65 - 199 mg/dL [facility] Comment:Diabetes: >=200 mg/d L plus symptoms Blood Urea Nitrogen 20 10 - 20 mg/dL [facility] Creatinine 1.54(H) 0.80 - 1.50 mg/dL [facility] Sodium 140 135 - 145 mmol/L [facility] Potassium 3.4(L) 3.5 - 5.0 mmol/L [facility] Comment: Please note: ??Patients with WBC >100,000 may have falsely elevated Potassium levels. ??For accurate Potassium quantification in these patients send serum separator tube (gold top) for subsequent determinations. ??Contact the Clinical Chemistry Laboratory if there are any questions. Chloride 98 98 - 107 mmol/L [facility] Carbon Dioxide 31 22 - 31 mmol/L [facility] Anion Gap 11 5 - 15 mmol/L [facility] Calcium 9.4 8.5 - 10.5 mg/dL [facility] Est Glomerular Filtration Rate 53(L) >=60 mL/min/1. 73 m?? [facility] Comment: This patient's estimated [...] Lab Vivek Lee MD CHEMISTRY ORDERABL ES [facility] [place] [address] * Heparin (unfractionated) Level (10/04/2022 6:40 PM EDT) UF Heparin <0.04 IU/mL [facility] Comment: Heparin (anti-Xa) [...] MD HEMATOLOGY ORDERABLE S Performing Organization Address City/[facility]/ZIP Co de Phone Number [facility] [place] [address] * Troponin (10/04/2022 6:40 PM EDT) Troponin-T, High Sensitivity 17 <=22 ng/L [facility] Comment: This patient's troponin T concentration [...] troponin value can be found in the [facility] Laboratory Test Catalog Troponin - [facility] Laboratory Test Catalog Reference: Fourth Converse Definition of Myocardial Infarction. Journal of the [place] College [employer] 2018;72:8268-0709 Blood 10/04/2022 6:40 PM EDT 10/04/2022 6:52 PM EDT Narrative Resulting Agency Comment Spec In Lab Yosef Wilkes MD CHEMISTRY ORDERABLES Performing Organization Address [facility] Co de Phone Number [facility] [place] [address] documented in this encounter Visit Diagnoses Not [...] - Reason: Transfer to a Procedural area)175 ([facility] Unhold - Provider: Admin Adt)2017 (Given - Provider: Sil Lopez RN) budesonide-formoteroL (Symbicort) 160-4.5 mcg/actuation inhaler 2 Inhalation 2 .Inhalation , Inhalation, 2 TIMES DAILY (RESPIRATORY THERAPY), First dose on Mon10/04/22 at 2000, Until Discontinued, Routine 214 (Given - Provider: Sil Lopez RN) 0507 (Given - Provider: Sil Lopez RN)1618 ([facility] Hold - Provider: Admin Adt - Reason: Transfer to a Procedural area)175 ([facility] Unhold - Provider: Admin Adt)2019 (Given - Provider: Sil Lopez RN) clopidogreL (Plavix) tablet 75 mg 75 mg, Oral, DAILY, First dose on Mon10/05/22 at 0900, Until Discontinued, Routine 09 (Given - Provid er: Corinna Vallecillo RN)1618 ([facility] Hold - Provider: Admin Adt - Reason: Transfer to a Procedural area)175 ([facility] Unhold - Provider: Admin Adt) folic acid (Vitamin B9) tablet 1 mg 1 mg, Oral, DAILY, First dose on Mon10/04/22 at 2000, Until Discontinued, Routine 2153 (Given - Provider: Sil Lopez RN) 0906 (Given - Provider: Corinna Vallecillo RN)1618 ([facility] Hold - Provider: Admin Adt - Reason: Transfer to a Procedural area)1758 ([facility] Unhold - Provider: Admin Adt) insulin glargine-ygfn (Semglee) (100 unit/mL) subcutaneous injection vial 40 Units (CANCELED) 40 Units, Subcutaneous, NIGHTLY, First dose (after last modification) on Mon10/04/22 at 2115, Until Discontinued, Routine 2255 (Given - Provider: Sil oLpez RN) 1618 ([facility] Hold - Provider: Admin Adt - Reason: Transfer to a Procedural area)172 ([facility] Unhold - Provider: ISABELLE Salazar) insulin [...] (Patch Applied - Provider: Corinna Vallecillo RN)161 ([facility] Hold - Provider: Admin Adt - [...] 0905 (Given - Provider: Corinna Vallecillo RN)161 ([facility] Hold - Provider: Admin Adt - Reason: Transfer to a Procedural area)175 ([facility] Unhold - Provider: Admin Adt)2016 (Given - [...] RN - Reason: Order parameters not met)161 ([facility] Hold - Provider: Admin Adt - Reason: Transfer to a Procedural area)175 ([facility] Unhold - Provider: Admin Adt)2018 (Given - Provider: Sil Lopez RN) sodium chloride 0.9 % (flush) (BD PosiFlush Normal Saline 0.9) flush 5 mL 5 mL, Intravenous, 2 TIMES DAILY, First dose on Mon10/04/22 at 2100, Until Discontinued, Routine 2100 (Not Given - Provider: Sil Lopez RN - Reason: See comment - Comment: previously flushed) 0907 (Given - Provider: Corinna Vallecillo RN)161 ([facility] Hold - Provider: Admin Adt - Reason: Transfer to a Procedural area)175 ([facility] Unhold - Provider: Admin Adt)2017 (Given - Provider: Sil Lopez RN) thiamine (Vitamin B-1) tablet 100 mg 100 mg, Oral, DAILY, First dose on Mon10/04/22 at 2000, Until Discontinued, Routine 214 (Given - Provider: Sil Lopez RN) 0906 (Given - Provider: Corinna Vallecillo RN)161 ([facility] Hold - Provider: Admin Adt - Reason: Transfer to a Procedural area)175 ([facility] Unhold - Provider: Admin Adt) tiotropium [...] - Reason: Transfer to a Procedural area)175 ([facility] Unhold - Provider: Admin Adt) dextrose 10% [...] - Reason: Transfer to a Procedural area)1757 ([facility] Unhold - Provider: Admin Adt) nitroGLYcerin (Nitrostat) [...] - Reason: Transfer to a Procedural area)1757 ([facility] Unhold - Provider: Admin Adt) nitroGLYcerin [...] PRN, Starting on Mon10/04/22 at 1810, Until Mgidalia 10/06/22 at 0054, flush, Flush pertains to all indwelling lines. Flush per protocol found in the job aid using the link provided on this medication record., Routine 1617 (MAY Hold - Pro vider: Admin Adt - Reason: Transfer to a Procedural area)1757 ([facility] Unhold - Provider: Admin Adt) sodium [...] Routine documented in this encounter Care Teams Hotel Or Motel Cleaning Supervisor Relationship Specialty Start Date End Date Karen Barbosa MD [address] [place] [address] [place] [address] PCP - General Family Medicine 10/04/22 documented as of this encounter
--- OUTSIDE RECORDS SUMMARY | 2023-11-07 02:28 | XMS_ITS | Encounter Summary ---
Author Organization [place] [address] Care Team Providers Care Farmworker Diversified Crops Name Role Phone Robinson Vazquez APRN Primary Care Provider +1- [phone] Reason for Visit * Reason Comments Eye Exam * Consultation (Routine) - Closed Specialty Diagnoses / Procedures Referred By Keith sanchez Referred To Contact Ophthalmology Diagnoses Other visual disturbances Robinson Vazquez APRN [address] [place] [address] Tania Gates, [facility] [place] [address] Referral ID Status Reason Start Date Expiration Date V isits Requested Visits Authorized [id number] Closed Consult, Test & Treat PCP Updated and/or Approved 10/13/2021 10/13/2022 6 6 Encounter Details Date Type Department Care Team (Late st Contact Info) Description 01/26/2022 7:40 AM EST Office [place] [address] Tania Gates, [facility] [place] [address] Diabetic eye exam; Pseudophakia of right eye; [...] Rx given today in polycarbonate and advised timekeeper supervisor wear for eye protection! - Findings and concerns discussed with Samy and he expressed understanding. Eyeglass Final Rx Eyeglass Final Rx Sphere Dist VA Add Near VA Right [place]eca 20/40-1 +2.25 20/20-1 Left [place] 20/400 +2.25 20/800-1 Expiration Date: 01/27/2024 documented in this encounter Plan of Treatment Upcoming Encounters Date Type Department Care Team (Late st Contact Info) Description 03/20/2024 10:00 AM EST Office [place] [address] Tania Gates, OD [facility] [place] [address] documented as of this encounter Visit Diagnoses Diagnosis Diabetic eye exam Examination of eyes and vision Pseudophakia of right eye Lens replaced by other means Age-related nuclear cataract of left eye Senile nuclear sclerosis History of eye injury Personal history of other injury Astigmatism of both eyes with presbyopia documented in this encounter Care Teams Farmworker Diversified Crops Relationship Specialty Start Date End Date Robinson Vazquez APRN [address] [place] [address] PCP - General Family Medicine 12/11/20 10/03/22 documented as of this encounter
--- OUTSIDE RECORDS SUMMARY | 2023-11-07 02:28 | XMS_ITS | Encounter Summary ---
Author Organization [facility] [place] [address] Care Team Providers Care Can Patcher Name Role Phone Robinson Vazquez APRN Primary Care Provider +1- [phone] Encounter Details Date Type Department Care Team (Latest Contact Info) Description 04/12/2021 9:00 AM EST TH Visit (TeleHealth) [place] [address] Janki Jean MD [facility] [place] [address] Dyspepsia; Delayed gastric emptying; Gastroesophageal reflux disease [...] Jean MD - 04/12/2021 9:00 AM EST [facility] Section of Gastroenterology and Hepatology Follow-up [...] peptic ulcers ?? EGDs in our system [id number] (multiple) - all with the appearance of [...] day, dinner, always been that way White Pakistani when relaxing, 1-2, could cause more pain [...] chest pain intermittently, going to see his quilting supervisor. Duration of ETOH/tobacco: Has cut down on [...] Post-operative nausea and vomiting Had scope at [facility] and had vomiting after Past Surgical History: Procedure Laterality Date ??? CATARACT REMOVAL Right 2016 ??? CORONARY ANGIOPLASTY WITH STENT PLACEMENT 08/2017 ??? PRO UPPER GI ENDOSCOPY, BIOPSY 04/26/2011 EGD WITH BIOPSY performed by KIRSTEN DAMON at [facility] ENDOSCOPY ??? PRO UPPER GI ENDOSCOPY, BIOPSY N/A 09/27/2018 UPPER GASTROINTESTINAL ENDOSCOPY,WITH BIOPSY SINGLE OR MULTIPLE (WRVU 2.49) performed by Luc Hdz MD at [facility] ENDOSCOPY ??? PRO UPPER GI ENDOSCOPY, BIOPSY N/A 01/26/2021 EGD WITH BIOPSY (WRVU 2.49) performed by Nathaniel Azevedo MD at [facility] ENDOSCOPY Social History Socioeconomic History [...] TWICE A DAY, Disp: , Rfl: ??? dquoclpatea-djseeijzx-habzvxfw 100-62.5-25 mcg Disk with Device, 1 puff [...] 6 months The patient was located in [place] at the time of their telemedicine visit. The risks, benefits and alternatives were discussed with the patient who understands and agrees with above. Janki Jean MD 04/11/21 Janki Jean MD Section of Gastroenterology and Hepatology [facility] [address] documented in this encounter Plan of Treatment Upcoming Encounters Date Type Department Care Team (Late st Contact Info) Description 03/20/2024 10:00 AM EST Office Visit [place] [address] Tania Gates, [facility] OPHTHALMOLOGY [place] [phone] documented as of this encounter Visit Diagnoses Diagnosis Dyspepsia Dyspepsia and other specified disorders of function of stomach Delayed gastric emptying Dyspepsia and other specified disorders of function of stomach Gastroesophageal reflux disease without esophagitis Esophageal reflux 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 Diaz's esophagus Food intolerance Other specified intestinal malabsorption Loose stools Abnormal feces documented in this encounter Care Teams Can Patcher Relationship Specialty Start Date End Date Robinson Vazquez APRN [address] [address] PCP - General Family Medicine 12/11/20 10/03/22 documented as of this encounter
--- OUTSIDE RECORDS SUMMARY | 2023-11-07 02:28 | XMS_ITS | Encounter Summary ---
[place] [address] Care Team Providers Care Wildland Fire Fighter Specialist Name Role Phone Robinson Vazquez APRN Primary Care Provider +1- [phone] Encounter Details Date Type Department Care Team (Late st Contact Info) Description 04/21/2022 Ancillary Procedure Radiology at [facility] [address] [place] [id number] Rosanna Clement MD [address] [place] [address] Social History Tobacco Use Types Packs/Day Years [...] 10:00 AM EST Office Visit [place] [address] Tania Gates OD [facility] [place] [address] documented as of this encounter Procedures Procedure [...] FILM LIBRARY ORDERABLES Performing Organization Address City/State/[facility] Co de Phone Number [place], [place] documented in this encounter Visit Diagnoses Not on filedocumented in this encounter Care Teams Wildland Fire Fighter Specialist Relationship Specialty Start Date End Date Robinson Vazquez APRN [address] [place] [address] PCP - General Family Medicine 12/11/20 10/03/22 documented as of this encounter
--- OUTSIDE RECORDS SUMMARY | 2023-11-07 02:28 | XMS_ITS | Encounter Summary ---
[place] [address] Care Team Providers Care Sand Analyst Name Role Phone Robinson Vazquez APRN Primary Care Provider +1- [phone] Reason for Visit * Reason Comments Follow-up Encounter Details Date Type Department Care Team (Late st Contact Info) Description 09/05/2022 9:30 AM EDT [place] [address] José Miguel Anderson MD [facility] [place] [address] History of YAG laser capsulotomy of lens, [...] 10:00 AM EST [place] [address] Tania Gates, OD [facility] [place] [address] documented as of this encounter Visit Diagnoses Diagnosis History of YAG laser capsulotomy of lens, right Pseudophakia of right eye Lens replaced by other means documented in this encounter Care Teams Sand Analyst Relationship Specialty Start Date End Date Robinson Vazquez, LAW FIRM PARTNER [address] [place] [address] PCP - General Family Medicine 12/11/20 10/03/22 documented as of this encounter
--- OUTSIDE RECORDS SUMMARY | 2023-11-07 02:28 | XMS_ITS | Encounter Summary ---
Author Organization [facility] [place] [address] Care Team Providers Care Locator Name Role Phone Robinson Vazquez APRN Primary Care Provider +1- [phone] Encounter Details Date Type Department Care Team (Late st Contact Info) Description 03/30/2021 9:00 AM EST Office Visit Dermatology at [place] [address] [place] [address] Amada Ferguson MD [facility] [place] [address] SK (seborrheic keratosis) Social History Tobacco Use [...] and signed by: Amada Ferguson MD Dermatology [facility] * Zo Esqueda MD - 03/30/2021 9:00 [...] 10:00 AM EST Office [place] [address] Tania Gates OD [facility] [place] [address] documented as of this encounter Visit Diagnoses Diagnosis SK (seborrheic keratosis) Other seborrheic keratosis documented in this encounter Care Teams Locator Relationship Specialty Start Date End Date Robinson Vazquez APRN [address] [place] [address] PCP - General Family Medicine 12/11/20 10/03/22 documented as of this encounter
--- OUTSIDE RECORDS SUMMARY | 2023-11-07 02:28 | XMS_ITS | Encounter Summary ---
Author Organization [facility] [place] [address] Care Team Providers Care Help Desk Internship Name Role Phone Robinson Vazquez APRN Primary Care Provider +1- [phone] Encounter Details Date Type Department Care Team (Late st Contact Info) Description 01/14/2022 Ancillary Procedure [place] [address] Robinson Vazquez APRN [address] [place], [place] [id number] Social History Tobacco Use Types Packs/Day Years [...] 10:00 AM EST Office Visit [place] [address] Tania Gates OD [facility] [place] [address] documented as of this encounter [...] Vazquez APRN IMG FILM LIBRARY O RDERABLES [place], [place] documented in this encounter Visit Diagnoses Not on filedocumented in this encounter Care Teams Help Desk Internship Relationship Specialty Start Date End Date Robinson Vazquez APRN [address] [place] [address] PCP - General Family Medicine 12/11/20 10/03/22 documented as of this encounter
--- OUTSIDE RECORDS SUMMARY | 2023-11-07 02:28 | XMS_ITS | Encounter Summary ---
Author Organization formerly [facility] [place] [address] Care Team Providers Care Registered Midwife Name Role Phone Karen Barbosa MD Primary Care Provider Reason for Visit * Auth/Cert (Routine) Specialty Diagnoses / Procedures Referred By Keith t Referred To Contact Diagnoses Unstable angina Chest Pain Yosef Wilkes MD [facility] [place] [address] [facility] Referral ID Status Reason Start Date Expiration Date Visits Re quested Visits Authorized [id number] 1 1 Encounter Details Date Type Department Care Team (Latest Contact Info) Description 10/04/2022 5:57 PM EDT - 10/05/2022 10:45 PM EDT Hospital Encounter Heart and Vascular Unit Level 3 [place] [address] Yosef Wilkes MD [facility] [place] [address] Unstable angina Discharge Disposition: Home [...] Patricio Jr. Patient Age: 56 y.o. Language: Greenlandic Admit date: 10/04/2022 Discharge date and time: [...] Information: MD Anny Oh PA-C Cardiovascular Medicine [phone] Discharge Diagnoses (Hospital Problems) and Secondary Diagnoses [...] without sciatica Operations/Major Procedures and CV studies: [facility] 10/05/22: Hemodynamics: Left Heart Pressures [...] hypertension, hyperlipidemia comes into the ED at [facility] for chest pain. Patient reports [...] and plavix and patient was transferred to [facility] for unstable angina. Patient still reports having 2/10 chest pain currently. Patient reports no fevers, no chills, no nausea, no vomiting, no diarrhea. Patient has no other complaints. Hospital Course: #Chest pain concerning for unstable angina # ASCVD (s/p EDEN to RCA 07/2019 ; prior PCI with EDEN RCA and Lcx) # HTN # HLD Samy Patricio Jr. presented as hospital transfer from [facility] for chest pain concerning for unstable angina. At [facility], Troponin negative and EKG without ischemic changes though chest pain at rest without relief of nitro x 3 on 10/04/22. He was loaded with ASA 325mg x1 and clopidogrel (10/04/22), and IV heparin with resolution of chest pain. Home metoprolol and high intensity atorvastatin continued. Transferred to [facility] for further workup which included TTE 10/05/2022 showing preserved LVEF without regional WMAs. C 10/05/2022 showing no new obstructive disease and patent prior stents. Cath access site remained stable following procedure. Ambulated post cath without angina. Patient and preferred to be discharged night of [facility]. Follow up with Dr. Kingston [...] by mouth daily. 25 mg Refills: 0 inyfpofczvg-abnmxivliswt-anmbnisvmg 100-62.5-25 mcg Commonly known as: Trelegy Ellipta [...] of 8A-5PM please call the Cardiology Clinic [phone] to speak with a nurse. All other hours please call the Hospital Professor Of Biostatistics [phone] and ask to speak to the architectural engineering teacher on-call. Return to work: One week Driving: No driving for 48 hours after cath Follow up Appointments: Doctor Where Phone # Date Time PCP Karen Barbosa MD [address] [place] [phone] 10/12/2022 11 AM Cardiology Padmini Kingston MD [facility] Cardiology [phone] 10/18/2022 11 AM Home oxygen therapy: N/A Arrangements for VNA/home care: N/A General Instructions None Future Appointments and Orders Future Appointments and Orders Future Appointments Provider Department Dept Phone 03/09/2023 10:40 AM Ramiro, Tania, OD; DILATION AND TEST, RAMIRO; TECH, RAMIRO Ophthalmologyat [facility] Arrive at: Director Epidemiology Area [phone] Discharge References/Attachments None Anny Ely PA-C 10/05/2022 [...] of 8A-5PM please call the Cardiology Clinic [phone] to speak with a nurse. All other hours please call the Hospital Professor Of Biostatistics [phone] and ask to speak to the architectural engineering teacher on-call. Return to work: One week Driving: No driving for 48 hours after cath Follow up Appointments: Doctor Where Phone # Date Time PCP Karen Barbosa MD [address] [place] [address] 10/12/2022 11 AM Cardiology Padmini Kingston MD [facility] Cardiology [phone] 10/18/2022 11 AM Home oxygen therapy: N/A [...] TEST BLOOD GLUCOSE TWICE A DAY 06/23/2020 bbpkcelcxlk-xwcztlxby-tp lanter 100-62.5-25 mcg Disk with Device Inhale [...] note were not included. CARDIOLOGY APP2 - [facility] DAILY PROGRESS NOTE Page [phone] to reach a provider 03/10 Admit Date: [...] CPAP) who presents as hospital transfer from [facility] for unstable angina. Troponin negative and [...] Discharge Location: PT: OT: PCP Robinson Vazquez, FORGING MACHINE HAND [phone] Anny Ely PA-C 10/05/2022 Cardiology Staff I [...] hypertension, hyperlipidemia comes into the ED at [facility] for chest pain. Patient reports [...] and plavix and patient was transferred to [facility] for unstable angina. Patient still reports having [...] Post-operative nausea and vomiting Had scope at [facility] and had vomiting after Surgical History/Problems: Past Surgical History: Procedure Laterality Date CATARACT REMOVAL Right 2017 CORONARY ANGIOPLASTY WITH STENT PLACEMENT 08/2017 PRO UPPER GI ENDOSCOPY, BIOPSY 04/26/2011 EGD WITH BIOPSY performed by KIRSTEN DAMON at [facility] ENDOSCOPY PRO UPPER GI ENDOSCOPY, BIOPSY N/A 09/27/2018 UPPER GASTROINTESTINAL ENDOSCOPY,WITH BIOPSY SINGLE OR MULTIPLE (WRVU 2.49) performed by Luc Hdz MD at [facility] ENDOSCOPY PRO UPPER GI ENDOSCOPY, BIOPSY N/A 01/26/2021 EGD WITH BIOPSY (WRVU 2.49) performed by Nathaniel Azevedo MD at [facility] ENDOSCOPY ROTATOR CUFF REPAIR Left Significant [...] Misc TEST BLOOD GLUCOSE TWICE A DAY foxxqntwqep-jphxevrsg-wyieiguy 100-62.5-25 mcg Disk with Device 1 puff [...] and plavix load and was transferred to [facility] for unstable angina TREATMENT PLAN: Unstable angina [...] Admitted From: Transfer from another hospital Location: [facility] Reason for Hospitalization: chest pain Covid [...] Post-operative nausea and vomiting Had scope at [facility] and had vomiting after Hospitalizations Within the Past 30 Days: no previous admission in last 30 days Current Decision-Making Capacity: Self If AD's have not been completed the following surrogate would be surrogate decision maker per [place] surrogate decision making law. (Only good for 180 days) Any patient receiving care in [place] must abide by [place] law. The hierarchy for surrogate decision making [...] (i) The agent with financial power of civil rights attorney or a conservator appointed in accordance [...] Current DME: none Home Address confirmed as: [address] [address] Social & Family Supports: All names listed below confirmed with patient as current and correct Extended Emergency Contact Information Primary Emergency Contact: Danica Patricio Address: [address] [address] [facility] Mobile Relation: Spouse Secondary [place]: [place] [address] [facility] Relation: Child Current Care Provided by: [...] Product type* / Secondary Insurance: [employer] [place] ONLY if patient has Medicare A&B - Does this patient have secondary insurance?: Yes ; Prescription Coverage: Yes Preferred Pharmacy: [facility] [address] [address] Status: Patient is a : No Primary Care Provider confirmed: Karen Barbosa MD [phone] Patient/Caregiver Goals of Treatment: return home Potential [...] for further details. ISABELLE Morataya 10/05/2022 Pager [phone] documented in this encounter Plan of Treatment Upcoming Encounters Date Type Department Care Team (Late st Contact Info) Description 03/20/2024 10:00 AM EST Office [place] [address] Tania Gates OD [facility] [place] [place] [address] documented as of this encounter Procedures Procedure [...] POC 181 65 - 199 mg/dL [facility] Comment: Supplemental ranges: <140 mg/dL before meals <180 mg/dL all other times of the day Blood 10/05/2022 7:49 PM EDT 10/05/2022 7:49 PM EDT Yosef Wilkes MD POINT OF CARE TEST O LAIERASERGIO Performing Organization Address [facility]/ZIP Co de Phone Number [facility] [place] [address] * POCT Glucose (10/05/2022 5:24 PM EDT) Glucose, POC 112 65 - 199 mg/dL [facility] Comment: Supplemental ranges: <140 mg/dL before meals <180 mg/dL all other times of the day Blood 10/05/2022 5:24 PM EDT 10/05/2022 5:24 PM EDT Yosef Wilkes MD POINT OF CARE TEST O SAEID Performing Organization Address City/[facility]/ZIP Co de Phone Number [facility] [place] [address] * CARDIAC CATHETERIZATION (10/05/2022 5:15 PM EDT) Anatomical Region Laterality Modality Other Narrative 10/05/2022 5:57 PM EDT ?[facility] ? Cardiac Catheterization/Intervention Report ? Patient Name: Samy Patricio Jr. S. ? Procedure Date: 10/05/2022 ? A #: [id number] ? Primary Physician: Amanda Aleman I ? Case #: [id number] ? File Name: [id number] ? Catheterization Order Number: [id number] ? [facility] ? Final Report [place], [place] ? Patient Name: ? Samy Jr. S. Sheng ?ID#: ?[id number] ? : ?1965 ? Procedure Date: ? October 05, 2022 ?Case #: ? [id number] ? Room: ? 1 ? Case Physician: ? Amanda Aleman M.D. ? Start: ?16:47 ?Fellow: ? Yves Fernandez M.D. ?Admission: ??10/04/2022 ?Nigel Hyamn M.D. ? Referring Physician: ??Chai Dailey ? [...] was Urgent. The indication for ?the labor relations worker visit is ACS greater than 24 hrs. [...] 1965 ? Height: 183 cm ? Account: [id number] Age: 56 yrs ? Weight: 135 kg Gender: Male ?BSA: 2.5 m2 Ordering Physician: YOSEF WILKES Referring Physician: OSCAR ACOSTA Performed By: MOUNA Rollins Reason For Study: Unstable angina Exam Location: [facility]. Interpretation Summary Optison was [...] right atrium now measured mildly dilated. Procedure Complete-[id number]. Image enhancement Optison was used for left [...] Date: 1:08 AMBP: 110/78 mmHg Patient Location: [address] : 1965 Height: 183 cm Account: [id number] Age: 56 yrs Weight: 135 kg Gender: Male BSA: 2.5 m2 Ordering Physician: YOSEF WILKES Referring Physician: OSCAR ACOSTA Performed By: MOUNA Rollins Reason For Study: Unstable angina Exam Location: [facility]. Interpretation Summary Optison was [...] night, rightatrium now measured mildly dilated. Procedure Complete-[id number]. Image enhancement Optison was used for left [...] POC 147 65 - 199 mg/dL [facility] Comment: Supplemental ranges: <140 mg/dL before meals <180 mg/dL all other times of the day Blood 10/05/2022 11:4 5 AM EDT 10/05/2022 11:45 AM EDT Yosef Wilkes MD POINT OF CARE TEST O RDERABLES [facility] [place] [address] * Basic Metabolic Panel (non-fasting) (10/05/2022 8:43 AM EDT) Glucose 160 65 - 199 mg/dL [facility] Comment:Diabetes: >=200 mg/d L plus symptoms Blood Urea Nitrogen 18 10 - 20 mg/dL [facility] Creatinine 1.35 0.80 - 1.50 mg/dL [facility] Sodium 137 135 - 145 mmol/L [facility] Potassium 4.2 3.5 - 5.0 mmol/L [facility] Comment: Please note: ??Patients with WBC >100,000 may have falsely elevated Potassium levels. ??For accurate Potassium quantification in these patients send serum separator tube (gold top) for subsequent determinations. ??Contact the Clinical Chemistry Laboratory if there are any questions. Chloride 98 98 - 107 mmol/L [facility] Carbon Dioxide 31 22 - 31 mmol/L [facility] Anion Gap 8 5 - 15 mmol/L [facility] Calcium 9.4 8.5 - 10.5 mg/dL [facility] Est Glomerular Filtration Rate 62 >=60 mL/min/1. 73 m?? [facility] Comment: This patient's estimated GFR [...] Lab Yosef Wilkes MD CHEMISTRY ORDERABLES [facility] [place] [address] * Heparin (unfractionated) Level (10/05/2022 8:43 AM EDT) UF Heparin 0.11 IU/mL [facility] Comment: Heparin (anti-Xa) [...] Teddy Willett MD HEMATOLOGY ORDERABLE S [facility] [place] [address] * POCT Glucose (10/05/2022 7:32 AM EDT) Glucose, POC 151 65 - 199 mg/dL [facility] Comment: Supplemental ranges: <140 mg/dL before meals <180 mg/dL all other times of the day Blood 10/05/2022 7:32 AM EDT 10/05/2022 7:32 AM EDT Yosef Wilkes MD POINT OF CARE TEST O RDERABLES [facility] [place] [address] * POCT Glucose (10/05/2022 4:08 AM EDT) Glucose, POC 179 65 - 199 mg/dL [facility] Comment: Supplemental ranges: <140 mg/dL before meals <180 mg/dL all other times of the day Blood 10/05/2022 4:08 AM EDT 10/05/2022 4:08 AM EDT Yosef Wilkes MD POINT OF CARE TEST O RDERABLES [facility] [place] [address] * POCT Glucose (10/05/2022 1:41 AM EDT) Glucose, POC 196 65 - 199 mg/dL [facility] Comment: Supplemental ranges: <140 mg/dL before meals <180 mg/dL all other times of the day Blood 10/05/2022 1:41 AM EDT 10/05/2022 1:41 AM EDT Yosef Wilkes MD POINT OF CARE TEST O RDERABLES Performing Organization Address [facility] Co de Phone Number [facility] [place] [address] * Differential, Automated (10/05/2022 1:04 AM EDT) Neutrophil % 65.7 % [facility] Neutrophil Absolute 5.59 1.70 - 6.10 x10(3)/[facility] Lymph % 21.5 % [facility] Lymphocytes Abs 1.8 0.9 - 3.2 x10(3)/[facility] Monocyte % 8.5 % [facility] Monocyte Abs 0.7 0.3 - 0.9 x10(3)/[facility] Eos % 3.1 % [facility] Eosinophils Abs 0.3 0.0 - 0.4 x10(3)/[facility] Basophil % 0.8 % [facility] Baso Absolute 0.1 0.0 - 0.1 x10(3)/[facility] Immature Gran % 0.40 % [facility] Comment: Immature granulocytes(IG's)percentage and absolute count will include metamyelocytes, myelocytes, and promyelocytes. Blood smears from CBCs yielding IG's will be scanned manually for concordance. If this scan disagrees with the automated IG or if promyelocytes are noted, a manual differential will be performed. Immature Gran Absolute 0.03 0.00 - 0.04 x10(3)/mcL [facility] Blood 10/05/2022 1:04 AM EDT 10/05/2022 1:14 AM EDT Narrative Resulting Agency Comment Spec In Lab Teddy Willett MD HEMATOLOGY ORDERABLE S Performing Organization Address City/[facility]/ZIP Co de Phone Number [facility] [place] [address] * (ABNORMAL) Hemogram (10/05/2022 1:04 AM EDT) White Blood Cell 8.5 4.0 - 9.5 x10(3)/mc L [facility] Red Blood Cell 5.63(H) 4.58 - 5.54 x10(6)/mc L [facility] Hemoglobin 16.6(H) 13.7 - 16.5 g/dL [facility] Hematocrit 51.0(H) 40.5 - 48.5 % [facility] Mean Cell Volume 90.6 82.9 - 93.1 fL [facility] Mean Cell Hemoglobin 29.5 27.5 - 32.1 pg [facility] Mean Cell Hemoglobin Concentration 32.5 32.0 - 35.7 g/dL [facility] Platelet 203 145 - 357 x10(3)/mc L [facility] RDW Standard Deviation 47.6(H) 36.0 - 45.0 fL [facility] RDW coefficient of variation 14.3(H) 11.4 - 13.8 % [facility] Mean Platelet Volume 9.7 7.6 - 12.9 fL [facility] NRBC% auto 0.0 % [facility] NRBC Absolute 0.000 0.000 - 0.000 x10(3)/mc L [facility] Blood 10/05/2022 1:04 AM EDT 10/05/2022 1:14 AM EDT Narrative Resulting Agency Comment Spec In Lab Teddy Willett MD HEMATOLOGY ORDERABLE S Performing Organization Address City/[facility]/ZIP Co de Phone Number [facility] [place] [address] * Heparin (unfractionated) Level (10/05/2022 1:04 AM EDT) Pathologist [facility] UF Heparin 0.11 IU/mL [facility] Comment: Heparin (anti-Xa) levels should be [...] Teddy Willett MD HEMATOLOGY ORDERABLE S [facility] [place] [address] * (ABNORMAL) Glucose, fasting (10/05/2022 1:04 AM EDT) Pathologist [facility] Glucose Fasting 188(H) 65 - 99 mg/dL [facility] Comment: ?Fasting* Glucose Interpretive [...] of Diabetes Mellitus, Position Statement from the [place] [employer]. ??Diabetes Care, Volume 33, Supplement 1, Mar 2009 Blood 10/05/2022 1:04 AM EDT 10/05/2022 1:14 AM EDT Narrative Resulting Agency Comment Spec In Lab Teddy Willett MD CHEMISTRY ORDERABLES Performing Organization Address City/[facility]/ZIP Co de Phone Number [facility] [place] [address] * Triglyceride (10/05/2022 1:04 AM EDT) Triglyceride 355 mg/dL [facility] Comment: Average Risk/Lower Risk: <150 mg/dL Borderline High Risk: 150-199 mg/dL High Risk: 200-499 mg/dL Very High Risk: >dl=354 mg/dL Blood 10/05/2022 1:04 AM EDT 10/05/2022 1:14 AM EDT Narrative Resulting Agency Comment Spec In Lab Teddy Willett MD CHEMISTRY ORDERABLES Performing Organization Address City/[facility] Co de Phone Number [facility] [place] [address] * HDL/Cholesterol Profile (10/05/2022 1:04 AM EDT) Cholesterol, Total 133 mg/dL [facility] Comment: Lower Risk: <200 mg/dL Average Risk: 200-239 mg/dL Higher Risk: >ke=106 mg/dL HDL Cholesterol 32 mg/dL [facility] Comment: Males: ?? Higher Risk: <40 mg/dL Females: ?? Higher Risk: <50 mg/dL Cholesterol/HDL Ratio 4.2 ratio [facility] Chol/HDL Interpretation See Note [facility] Comment: Lipid management should be guided by a patient? s ASCVD risk, goals and preferences. ACC/AHA Guidelines recommend high intensity statin if clinical ASCVD or LDL greater than or equal to 190 mg/dL. http://TechZelurl.com/NBN-QFZ-Mlbxvjzso Measure LDL if Total Cholesterol minus HDL Cholesterol is greater than 220 mg/dL. Adults aged 40-75 with LDL 70-189 mg/dL should have their 10 year ASCVD risk estimated with the ACC/AHA ASCVD risk construction estimator http://tools.acc.org/DEUYE-Qreb-Tvwdtiszo/ Statin should be discussed if risk greater [...] Willett MD CHEMISTRY ORDERABLES Performing Organization Address City/[facility]/ZIP Co de Phone Number [facility] [place] [address] * LDL Cholesterol, Direct (10/05/2022 1:04 AM EDT) LDL Cholesterol, Direct 61 mg/dL [facility] Comment: Lowest Risk: <100 mg/dL Lower Risk: 100-129 mg/dL Borderline High Risk: 130-159 mg/dL High Risk: 160-189 mg/dL Very High Risk: >qd=849 mg/dL Blood 10/05/2022 1:04 AM EDT 10/05/2022 1:14 AM EDT Narrative Resulting Agency Comment Spec In Lab Teddy Willett MD CHEMISTRY ORDERABLES Performing Organization Address City/[facility] Co de Phone Number [facility] [place] [address] * (ABNORMAL) Hemoglobin A1c (10/05/2022 1:04 AM EDT) Hemoglobin A1c 7.4(H) 4.3 - 5.6 % [facility] Comment: Reference Range: 4.3 - [...] Mellitus, Diabetes Care 2013; 36: Suppl. 1, L27-33 Estimated Average Glucose 165 mg/dL [facility] Comment: eAG equivalents for HbA1c [...] into estimated average glucose values. ??Diabetes Care 2008:31(8):6438-8185. Blood 10/05/2022 1:04 AM EDT 10/05/2022 1:14 AM EDT Narrative Resulting Agency Comment Spec In Lab Teddy Willett MD CHEMISTRY ORDERABLES [facility] [place] [address] * (ABNORMAL) POCT Glucose (10/04/2022 11:38 PM EDT) Glucose, POC 292(H) 65 - 199 mg/dL [facility] Comment: Supplemental ranges: <140 mg/dL before meals <180 mg/dL all other times of the day Blood 10/04/2022 11:3 8 PM EDT 10/04/2022 11:38 PM EDT Yosef Wilkes MD POINT OF CARE TEST O RDERABLES Performing Organization Address City/[facility]/Z[place] [address] * Differential, Automated (10/04/2022 9:56 PM EDT) Neutrophil % 61.6 % [facility] Neutrophil Absolute 5.06 1.70 - 6.10 x10(3)/[facility] Lymph % 26.1 % [facility] Lymphocytes Abs 2.1 0.9 - 3.2 x10(3)/[facility] Monocyte % 7.7 % [facility] Monocyte Abs 0.6 0.3 - 0.9 x10(3)/[facility] Eos % 3.5 % [facility] Eosinophils Abs 0.3 0.0 - 0.4 x10(3)/[facility] Basophil % 1.0 % [facility] Baso Absolute 0.1 0.0 - 0.1 x10(3)/[facility] Immature Gran % 0.10 % [facility] Comment: Immature granulocytes(IG's)percentage and absolute count will include metamyelocytes, myelocytes, and promyelocytes. Blood smears from CBCs yielding IG's will be scanned manually for concordance. If this scan disagrees with the automated IG or if promyelocytes are noted, a manual differential will be performed. Immature Gran Absolute 0.01 0.00 - 0.04 x10(3)/[facility] Blood 10/04/2022 9:56 PM EDT 10/04/2022 10:03 PM EDT Narrative Resulting Agency Comment Spec In Lab Vivek Lee MD HEMATOLOGY ORDERAB LES Performing Organization Address [facility]/ZIP [place] [address] * (ABNORMAL) Hemogram (10/04/2022 9:56 PM EDT) White Blood Cell 8.2 4.0 - 9.5 x10(3)/mc L [facility] Red Blood Cell 5.80(H) 4.58 - 5.54 x10(6)/mc L [facility] Hemoglobin 17.1(H) 13.7 - 16.5 g/dL [facility] Hematocrit 52.6(H) 40.5 - 48.5 % [facility] Mean Cell Volume 90.7 82.9 - 93.1 fL [facility] Mean Cell Hemoglobin 29.5 27.5 - 32.1 pg [facility] Mean Cell Hemoglobin Concentration 32.5 32.0 - 35.7 g/dL [facility] Platelet 220 145 - 357 x10(3)/mc L [facility] RDW Standard Deviation 47.8(H) 36.0 - 45.0 fL [facility] RDW coefficient of variation 14.4(H) 11.4 - 13.8 % [facility] Mean Platelet Volume 9.6 7.6 - 12.9 fL [facility] NRBC% auto 0.0 % [facility] NRBC Absolute 0.000 0.000 - 0.000 x10(3)/mc L [facility] Blood 10/04/2022 9:56 PM EDT 10/04/2022 10:03 PM EDT Narrative Resulting Agency Comment Spec In Lab Vivek Lee MD HEMATOLOGY ORDERAB LES Performing Organization Address City/State/[facility] Co de Phone Number [facility] [place] [address] * Troponin (10/04/2022 9:56 PM EDT) Troponin-T, High Sensitivity 16 <=22 ng/L [facility] Comment: This patient's troponin T concentration [...] troponin value can be found in the [facility] Test Catalog Troponin - [facility] Test Catalog Reference: Fourth [place] Definition of Myocardial Infarction. Journal of the [place] [employer] 2018;72:9911-0236 Blood 10/04/2022 9:56 PM EDT 10/04/2022 10:03 PM EDT Narrative Resulting Agency Comment Spec In Lab Teddy Willett MD CHEMISTRY ORDERABLES Performing Organization Address [facility]/ZIP Co de Phone Number [facility] [place] [address] * (ABNORMAL) POCT Glucose (10/04/2022 9:35 PM EDT) Glucose, POC 344(H) 65 - 199 mg/dL [facility] Comment: Supplemental ranges: <140 mg/dL before meals <180 mg/dL all other times of the day Blood 10/04/2022 9:35 PM EDT 10/04/2022 9:35 PM EDT Yosef Wilkes MD POINT OF CARE TEST O RDERABLES [facility] [place] [address] * POCT Glucose (10/04/2022 6:43 PM EDT) Glucose, POC 80 65 - 199 mg/dL [facility] Comment: Supplemental ranges: <140 mg/dL before meals <180 mg/dL all other times of the day Blood 10/04/2022 6:43 PM EDT 10/04/2022 6:43 PM EDT Yosef Wilkes MD POINT OF CARE TEST O RDERABLES Performing Organization Address [facility] Co de Phone Number [facility] [place] [address] * pro-Brain Natriuretic Peptide (10/04/2022 6:40 PM EDT) NT-proBNP 40 <=124 pg/mL [facility] Blood Venous Draw / Unknown 10/04/2022 6:40 PM EDT 10/04/2022 6:52 PM EDT Narrative Resulting Agency Comment Spec In Lab Vivek Lee MD CHEMISTRY ORDERABL ES Performing Organization Address [facility] de Phone Number [facility] [place] [address] * Magnesium (10/04/2022 6:40 PM EDT) Magnesium 1.07 0.69 - 1.07 mmol/L [facility] Blood Venous Draw / Unknown 10/04/2022 6:40 PM EDT 10/04/2022 6:52 PM EDT Narrative Resulting Agency Comment Spec In Lab Vivek Lee MD CHEMISTRY ORDERABL ES Performing Organization Address [facility] de Phone Number [facility] [place] [address] * (ABNORMAL) Basic Metabolic Panel (non-fasting) (10/04/2022 6:40 PM EDT) Glucose 75 65 - 199 mg/dL [facility] Comment:Diabetes: >=200 mg/d L plus symptoms Blood Urea Nitrogen 20 10 - 20 mg/dL [facility] Creatinine 1.54(H) 0.80 - 1.50 mg/dL [facility] Sodium 140 135 - 145 mmol/L [facility] Potassium 3.4(L) 3.5 - 5.0 mmol/L [facility] Comment: Please note: ??Patients with WBC >100,000 may have falsely elevated Potassium levels. ??For accurate Potassium quantification in these patients send serum separator tube (gold top) for subsequent determinations. ??Contact the Clinical Chemistry Laboratory if there are any questions. Chloride 98 98 - 107 mmol/L [facility] Carbon Dioxide 31 22 - 31 mmol/L [facility] Anion Gap 11 5 - 15 mmol/L [facility] Calcium 9.4 8.5 - 10.5 mg/dL [facility] Est Glomerular Filtration Rate 53(L) >=60 mL/min/1. 73 m?? [facility] Comment: This patient's estimated [...] Lab Vivek Lee MD CHEMISTRY ORDERABL ES [facility] [place] [address] * Heparin (unfractionated) Level (10/04/2022 6:40 PM EDT) UF Heparin <0.04 IU/mL [facility] Comment: Heparin (anti-Xa) [...] MD HEMATOLOGY ORDERABLE S Performing Organization Address City/[facility]/ZIP Co de Phone Number [facility] [place] [address] * Troponin (10/04/2022 6:40 PM EDT) Troponin-T, High Sensitivity 17 <=22 ng/L [facility] Comment: This patient's troponin T concentration [...] troponin value can be found in the [facility] Test Catalog Troponin - [facility] Test Catalog Reference: Fourth [place] Definition of Myocardial Infarction. Journal of the [place] [employer]iology 2018;72:6077-8951 Blood 10/04/2022 6:40 PM EDT 10/04/2022 6:52 PM EDT Narrative Resulting Agency Comment Spec In Lab Yosef Wilkes MD CHEMISTRY ORDERABLES Performing Organization Address City/[facility]/ZIP Co de Phone Number [facility] [place] [address] documented in this encounter Visit Diagnoses Diagnosis [...] 050 (Given - Provider: Sil Lopez RN)1618 ([facility] Hold - Provider: Admin Adt - Reason: Transfer to a Procedural area)175 ([facility] Unhold - Provider: Admin Adt)2018 (Given - Provider: Sil Lopez RN) clopidogreL (Plavix) tablet 75 mg 75 mg, Oral, DAILY, First dose on Mon10/05/22 at 0900, Until Discontinued, Routine 09 (Given - Provid er: Corinna Vallecillo RN)161 ([facility] Hold - Provider: Admin Adt - Reason: Transfer to a Procedural area)175 ([facility] Unhold - Provider: Admin Adt) folic acid (Vitamin B9) tablet 1 mg 1 mg, Oral, DAILY, First dose on Mon10/04/22 at 2000, Until Discontinued, Routine 215 (Given - Provider: Sil Lopez RN) 09 (Given - Provider: Corinna Vallecillo RN)161 ([facility] Hold - Provider: Admin Adt - Reason: Transfer to a Procedural area)175 ([facility] Unhold - Provider: Admin Adt) insulin glargine-ygfn (Semglee) (100 unit/mL) subcutaneous injection vial 40 Units (CANCELED) 40 Units, Subcutaneous, NIGHTLY, First dose (after last modification) on Mon10/04/22 at 2115, Until Discontinued, Routine 2255 (Given - Provider: Sil Lopez RN) 161 ([facility] Hold - Provider: Admin Adt - Reason: Transfer to a Procedural area)172 ([facility] Unhold - Provider: ISABELLE [...] Routine 2148 (Given - Provider: Sil Lopez RN)2340 (Given - Provider: Sil Lopez RN) [...] RN - Reason: Order parameters not met)161 ([facility] Hold - Provider: Admin Adt - Reason: Transfer to a Procedural area)175 ([facility] Unhold - Provider: Admin [...] 0907 (Given - Provider: Corinna Vallecillo RN)161 ([facility] Hold - Provider: Admin Adt - Reason: Transfer to a Procedural area)175 ([facility] Unhold - Provider: Admin Adt)2017 (Given - Provider: Sil Lopez RN) thiamine (Vitamin B-1) tablet 100 mg 100 mg, Oral, DAILY, First dose on Mon10/04/22 at 2000, Until Discontinued, Routine 2146 (Given - Provider: Sil Lopez RN) 0906 (Given - Provider: Corinna Vallecillo, GUILLAUME)161 ([facility] Hold - Provider: Admin Adt - Reason: Transfer to a Procedural area)175 ([facility] Unhold - Provider: Admin Adt) tiotropium bromide (Spiriva Respimat) 2.5 mcg/actuation inhaler 2 puff 2 puff, Inhalation, DAILY, First dose on Mon10/04/22 at 2000, Until Discontinued, Must be primed prior to first administration, Routine 2148 (Given - Provider: Sil Lopez RN) 0907 (Given - Provider: Corinna Vallecillo RN)161 ([facility] Hold - Provider: Admin Adt - Reason: Transfer to a Procedural area)175 ([facility] Unhold - Provider: Admin Adt) Continuous Medication [...] Lopez RN)1127 (Rate/Dose Change - Provider: Corinna Vlalecillo RN)1618 (MAY Hold - Provider: Admin Adt [...] - Reason: Transfer to a Procedural area)1757 ([facility] Unhold - Provider: Admin [...] - Reason: Transfer to a Procedural area)1757 ([facility] Unhold - Provider: Admin [...] - Reason: Transfer to a Procedural area)1757 ([facility] Unhold - Provider: Admin Adt) verapamiL (Isoptin) [...] Routine documented in this encounter Care Teams Registered Midwife Relationship Specialty Start Date End Date Karen Barbosa MD [address] [place] [address] [place] [address] PCP - General Family Medicine 10/04/22 documented as of this encounter
--- OUTSIDE RECORDS SUMMARY | 2023-11-07 02:28 | XMS_ITS | Encounter Summary ---
[place] [address] Care Team Providers Care Rehab Assistant Name Role Phone Robinson Vazquez APRN Primary Care Provider [phone]- [phone] Reason for Referral * Consultation (Urgent) - Closed Specialty Diagnoses / Procedures Referred By Keith sanchez Referred To Contact Vascular Surgery Diagnoses Peripheral vascular disease, unspecified Karen Barbosa MD [facility] [place] [address] [facility] [address] [place] [address] Referral ID Status Reason Start Date Expiration Date V isits Requested Visits Authorized [id number] Closed Consult, Test & Treat 02/07/2022 02/07/2023 1 1 Encounter Details Date Type Department Care Team (Late st Contact Info) Description 02/07/2022 Transcribe Orders eDH Incoming Referrals [phone] Karen Barbosa MD [address] [place], [place] [id number] Peripheral vascular disease, unspecified Social History Tobacco [...] 10:00 AM EST Office Visit Ophthalmology at [facility] [place] [address] Tania Gates OD [facility] [place] [address] Scheduled Referrals Name Type Priority Associated Diagnoses Orde r Schedule Referral to Vascular Surgery Outpatient Referral Urgent Peripheral vascular disease, unspecified Ordered: 02/07/2022 documented as of this encounter Visit Diagnoses Diagnosis Peripheral vascular disease, unspecified documented in this encounter Care Teams Rehab Assistant Relationship Specialty Start Date End Date Robinson Vazquez, FINANCIAL INSTITUTION VICE PRESIDENT [address] [place] [address] [address] [place] [address] PCP - General Family Medicine 12/11/20 10/03/22 documented as of this encounter
--- OUTSIDE RECORDS SUMMARY | 2023-11-07 02:28 | XMS_ITS | Encounter Summary ---
[place] [address] Care Team Providers Care Summer Internship Name Role Phone Robinson Vazquez APRN Primary Care Provider [phone]- [phone] Reason for Referral * Consultation (Routine) - Closed Specialty Diagnoses / Procedures Referred By Keith sanchez Referred To Contact Neurosurgery Diagnoses Cervical disc disorder Cervical spondylosis without myelopathy Amanda Quan APRN [address] [place] [address] [facility] [address] [place] [phone] Referral ID Status Reason Start Date Expiration Date V isits Requested Visits Authorized [id number] Closed Consult, Test & Treat PCP Updated and/or Approved 04/04/2022 04/04/2023 6 6 Encounter Details Date Type Department Care Team (Late st Contact Info) Description 04/04/2022 Transcribe Orders eDH Incoming Referrals [phone] Amanda Quan APRN [address] [place], [place] [id number] Cervical disc disorder; Cervical spondylosis without myelopathy [...] 10:00 AM EST [place] [address] Tania Gates OD [facility] [place] [address] Scheduled Referrals Name Type Priority Associated Diagnoses Orde r Schedule Referral to Neurosurgery Outpatient Referral Routine Cervical disc disorder Cervical spondylosis without myelopathy Ordered: 04/04/2022 documented as of this encounter Visit Diagnoses Diagnosis Cervical disc disorder Other and unspecified disc disorder of cervical region Cervical spondylosis without myelopathy documented in this encounter Care Teams Summer Internship Relationship Specialty Start Date End Date Robinson Vazquez, FISH PROCESSING SUPERVISOR [address] [place] [address] PCP - General Family Medicine 12/11/20 10/03/22 documented as of this encounter
--- OUTSIDE RECORDS SUMMARY | 2023-11-07 02:28 | XMS_ITS | Encounter Summary ---
Author Organization [facility] [place] [address] Care Team Providers Care Silk Top Hat Body Maker Name Role Phone Karen Barbosa MD Primary Care Provider [phone] Encounter Details Date Type Department Care Team (Late st Contact Info) Description 10/04/2022 Telephone Cardiology at [address] [address] Gonzalo Shukla PA [facility] [place] [address] Social History Tobacco Use Types Packs/Day Years Used Date Smoking Tobacco: Every Day Cigarettes 1 40 Smokeless Tobacco: Never Alcohol Use Standard Drinks/Week Comments Yes 7 (1 standard drink = 0.6 oz pur e alcohol) [facility] Inpatient Questions Answer Date Recorded Does [...] AM Referring Provider: Dr. Barron Patient Location: [facility] Past Medical History: ASCVD w/ prior RCA and Lcx PCI which were patent on [facility] 12/2020 IDDM2 CKD stage III HTN HLP Tobacco use, active Brief History: Samy Patricio Jr. is a 56 y.o. male with above history presents to [facility] with resting angina which started at 8 [...] in management. Gonzalo Shukla PA-C Access Pager [phone] 10/04/2022 documented in this encounter Plan of Treatment Upcoming Encounters Date Type Department Care Team (Late st Contact Info) Description 03/20/2024 10:00 AM EST Office [place] [address] Tania Gates OD [facility] [place] [address] documented as of this encounter Visit Diagnoses Not on filedocumented in this encounter Care Teams Silk Top Hat Body Maker Relationship Specialty Start Date End Date Karen Barbosa MD [address] [place] [address] [place] [address] PCP - General Family Medicine 10/04/22 documented as of this encounter
--- OUTSIDE RECORDS SUMMARY | 2023-11-07 02:28 | XMS_ITS | Encounter Summary ---
[place] [address] Care Team Providers Care Teller Vault Name Role Phone Karen Barbosa MD Primary Care Provider Encounter Details Date Type Department Care Team (Late st Contact Info) Description 10/04/2022 [place] [address] Unknown None Social History Tobacco [...] AM EST Office Visit [place] [address] Tania Gates OD [facility] [place] [address] documented as of this encounter Procedures Procedure [...] 07:30 PMBP: 140/90 mmHg ? [place] [facility] [place] HR: 66 : 1965 ? Height: 183 cm Age: 56 yrs ? Weight: 134 kg Gender: Male ?BSA: 2.5 m2 Ordering Physician: Rafy Wilkes MD Referring Physician: Rafy Wilkes MD Performed By: Vivek Lee Reason For Study: Unstable Angina History: Chest pain Interpreting Fellow: Vivek Lee. Exam Location: [facility]. Interpretation Summary -Limited echocardiogram performed by overnight [...] accurate wall motion assessment. Procedure Limited - [id number]. Satisfactory quality. There is normal sinus rhythm. [...] Date: 307:30 PMBP: 140/90 mmHg Patient [place] [facility] HR: 66 : 1965 Height: 183 cm Age: 56 yrs Weight: 134 kg Gender: Male BSA: 2.5 m2 Ordering Physician: Rafy Wilkes MD Referring Physician: Rafy Wilkes MD Performed By: Vivek Lee Reason For Study: Unstable Angina History: Chest pain Interpreting Fellow: Vivek Lee. Exam Location: [facility]. Interpretation Summary -Limited echocardiogram performed by overnight [...] accurate wall motion assessment. Procedure Limited - [id number]. Satisfactory quality. There is normal sinus rhythm. [...] on filedocumented in this encounter Care Teams Teller Vault Relationship Specialty Start Date End Date Karen Barbosa MD [address] [place] [address] PCP - General Family Medicine 10/04/22 documented as of this encounter
--- OUTSIDE RECORDS SUMMARY | 2023-11-07 02:28 | XMS_ITS | Encounter Summary ---
[place] [address] Care Team Providers Care Tool Tender Name Role Phone Robinson Vazquez APRN Primary Care Provider [phone]- [phone] Encounter Details Date Type Department Care Team (Late st Contact Info) Description 04/12/2021 Telephone [place] [address] Joanna Carlson CMA GASTROENTEROLOGY DEPT Social History [...] 10:00 AM EST Office [place] [address] Tania Gates, [facility] [place] [address] documented as of this encounter Visit Diagnoses Not on filedocumented in this encounter Care Teams Tool Tender Relationship Specialty Start Date End Date Robinson Vazquez, SUPPLY CHAIN COORDINATOR [address] [facility] [address] [place] [address] PCP - General Family Medicine 12/11/20 10/03/22 documented as of this encounter
--- OUTSIDE RECORDS SUMMARY | 2023-11-07 02:28 | XMS_ITS | Encounter Summary ---
Author Organization [facility] [place] [address] Care Team Providers Care Director Of Catering Name Role Phone Robinson Vazquez APRN Primary Care Provider [phone]- [phone] Encounter Details Date Type Department Care Team [...] 10:00 AM EST Office [place] [address] Tania Gates OD [facility] [place] [address] documented as of this encounter Visit Diagnoses Not on filedocumented in this encounter Care Teams Director Of Catering Relationship Specialty Start Date End Date Robinson Vazquez APRN [address] [place] [address] PCP - General Family Medicine 12/11/20 10/03/22 documented as of this encounter
--- OUTSIDE RECORDS SUMMARY | 2023-11-07 02:28 | XMS_ITS | Encounter Summary ---
Author Organization [facility] [place] [address] Care Team Providers Care Leasing Representative Name Role Phone Robinson Vazquez APRN Primary Care Provider [phone]- [phone] Encounter Details Date Type Department Care Team (Late st Contact Info) Description 03/21/2022 10:40 AM EST Office [place] [address] Tania Gates OD [facility] [place] [address] PATIENT NOT SEEN Social History Tobacco Use [...] 10:00 AM EST Office [place] [address] Tania Gates OD [facility] [place] [address] documented as of this encounter Visit Diagnoses Diagnosis DH PATIENT NOT SEEN documented in this encounter Care Teams Leasing Representative Relationship Specialty Start Date End Date Robinson Vazquez, DEVOPS ENGINEER [address] [place] [address] PCP - General Family Medicine 12/11/20 10/03/22 documented as of this encounter
--- OUTSIDE RECORDS SUMMARY | 2023-11-07 02:28 | XMS_ITS | Encounter Summary ---
Author Organization [facility] [place] [address] Care Team Providers Care Building Operator Name Role Phone Robinson Vazquez APRN Primary Care Provider +1- [phone] Encounter Details Date Type Department Care Team [...] 10:00 AM EST Office [place] [address] Tania Gates OD [facility] [place] [address] documented as of this encounter Visit Diagnoses Not on filedocumented in this encounter Care Teams Building Operator Relationship Specialty Start Date End Date Robinson Vazquez APRN [address] [place] [address] PCP - General Family Medicine 12/11/20 10/03/22 documented as of this encounter
--- OUTSIDE RECORDS SUMMARY | 2023-11-07 02:28 | XMS_ITS | Encounter Summary ---
Author Organization [facility] [place] [address] Care Team Providers Care Billet Heater Name Role Phone Robinson Vazquez APRN Primary Care Provider [phone]- [phone] Reason for Visit * Consultation (Urgent) - Closed Specialty Diagnoses / Procedures Referred By Keith sanchez Referred To Contact Vascular Surgery Diagnoses Peripheral vascular disease, unspecified Karen Barbosa MD [address] [facility] [address] [place] [address] [facility] [address] [place] [address] Referral ID Status Reason Start Date Expiration Date V isits Requested Visits Authorized [id number] Closed Consult, Test & Treat 02/07/2022 02/07/2023 1 1 Encounter Details Date Type Department Care Team (Late st Contact Info) Description 02/24/2022 9:30 AM EST Office Visit [place] [address] Orin Tsai MD [facility] [place] [address] Leriche syndrome Social History Tobacco [...] TWICE A DAY, Disp: , Rfl: ??? 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
--- OUTSIDE RECORDS SUMMARY | 2023-11-07 02:28 | XMS_ITS | Encounter Summary ---
Author Organization [facility] [place] [address] Care Team Providers Care Catering Driver Name Role Phone Robinson Vazquez APRN Primary Care Provider +1- [phone] Encounter Details Date Type Department Care Team (Latest Contact Info) Description 02/24/2022 9:00 AM EST Tech [place] [phone] Sarah [place], [place] Atherosclerosis of match-e-be-nash-she-wish band artery of lower extremity, unspecified laterality, with [...] 10:00 AM EST Office [place] [address] Tania Gates OD [facility] [address] documented as of this encounter Procedures Procedure Name Priority Date/Time Associated Diagnosis Comments DEONTE, LEGS, MULTIPLE LEVELS Routine 02/24/2022 9:03 AM EST Atherosclerosis of match-e-be-nash-she-wish band artery of lower extremity, unspecified laterality, with unspecified presence of clinical manifestation documented in this encounter Results * DEONTE, legs, multiple levels (02/24/2022 9:03 AM EST) VB Text Report Department: Vascular Surgery Lab Patient: [id number] (SAMY PATRICIO) CPT: [id number] Referring Physician: VINICIUS CARTAGENA APRN ?? Indications: [...] VASCUBASE 02/24/2022 9:03 AM EST Vinicius Cartagena DECONTAMINATION WORKER VASCULAR ORDERABLE S VASCUBASE documented in this encounter Visit Diagnoses Diagnosis Atherosclerosis of match-e-be-nash-she-wish band artery of lower extremity, unspecified laterality, with unspecified presence of clinical manifestation documented in this encounter Care Teams Catering Driver Relationship Specialty Start Date End Date Robinson Vazquez APRN [address] [place] [address] PCP - General Family Medicine 12/11/20 10/03/22 documented as of this encounter
--- OUTSIDE RECORDS SUMMARY | 2023-11-07 02:28 | XMS_ITS | Encounter Summary ---
Author Organization [facility] [place] [address] Care Team Providers Care Paper Gluing Operator Name Role Phone Robinson Vazquez APRN Primary Care Provider +1- [phone] Encounter Details Date Type Department Care Team [...] 10:00 AM EST Office [place] [address] Tania Gates OD [facility] [place] [address] documented as of this encounter Visit Diagnoses Not on filedocumented in this encounter Care Teams Paper Gluing Operator Relationship Specialty Start Date End Date Robinson Vazquez APRN [address] [place] [address] PCP - General Family Medicine 12/11/20 10/03/22 documented as of this encounter
--- OUTSIDE RECORDS SUMMARY | 2023-11-07 02:28 | XMS_ITS | Encounter Summary ---
[place] [address] Care Team Providers Care Blood Bank Custodian Name Role Phone Robinson Vazquez APRN Primary Care Provider +1- [phone] Encounter Details Date Type Department Care Team (Late st Contact Info) Description 10/29/2021 Telephone Cardiology at [address] [phone] Eileen Williamson, RN Social History Tobacco Use [...] an appointment in November with a new towboat engineer in [facility]. Recommend to her several times, that Mr Patricio, and she speakwith his new towboat engineer regarding any and all cardiac testing for a review, interpretation, and treatment plan, with his new towboat engineer, as no staff or nurses, can render such an interpretation. Eileen Williamson (Jodie), RN, BSN [facility] documented in this encounter Plan of Treatment Upcoming Encounters Date Type Department Care Team (Late st Contact Info) Description 03/20/2024 10:00 AM EST Office [place] [address] Tania Gates, [facility] [place] [address] documented as of this encounter Visit Diagnoses Not on filedocumented in this encounter Care Teams Blood Bank Custodian Relationship Specialty Start Date End Date Robinson Vazquez, JOVANI [address] [place] [address] PCP - General Family Medicine 12/11/20 10/03/22 documented as of this encounter
--- OUTSIDE RECORDS SUMMARY | 2023-11-07 02:28 | XMS_ITS | Encounter Summary ---
Author Organization [facility] [place] [address] Care Team Providers Care Cutting Supervisor Name Role Phone Robinson Vazquez APRN Primary Care Provider +1- [phone] Encounter Details Date Type Department Care Team [...] 10:00 AM EST Office [place] [address] Tania Gates OD [facility] [place] [address] documented as of this encounter Visit Diagnoses Not on filedocumented in this encounter Care Teams Cutting Supervisor Relationship Specialty Start Date End Date Robinson Vazquez APRN [address] [place] [address] PCP - General Family Medicine 12/11/20 10/03/22 documented as of this encounter
--- OUTSIDE RECORDS SUMMARY | 2023-11-07 02:28 | XMS_ITS | Encounter Summary ---
Author Organization [facility] [place] [address] Care Team Providers Care Senior Technologist Name Role Phone Robinson Vazquez APRN Primary Care Provider +1- [phone] Reason for Referral * Consultation (Routine) - Closed Specialty Diagnoses / Procedures Referred By Keith t Referred To Contact Ophthalmology Diagnoses Other visual disturbances Robinson Vazquez APRN [address] [place] [address] Tania Gates, [facility] [place] [address] Referral ID Status Reason Start Date Expiration Date V isits Requested Visits Authorized [id number] Closed Consult, Test & Treat PCP Updated and/or Approved 10/13/2021 10/13/2022 6 6 Encounter Details Date Type Department Care Team (Late st Contact Info) Description 10/13/2021 Transcribe Orders eDH Incoming Referrals [phone] Robinson Vazquez APRN [address] [place], [place] [id number] Other visual disturbances Social History Tobacco Use [...] 10:00 AM EST Office [place] [address] Tania Gates, [facility] [place] [address] Scheduled Referrals Name Type Priority Associated Diagnoses Orde r Schedule Referral to Ophthalmology Outpatient Referral Routine Other visual disturbances Ordered: 10/13/2021 documented as of this encounter Visit Diagnoses Diagnosis Other visual disturbances documented in this encounter Care Teams Senior Technologist Relationship Specialty Start Date End Date Robinson Vazquez, FIELD AUDITOR [address] [place] [address] PCP - General Family Medicine 12/11/20 10/03/22 documented as of this encounter
--- OUTSIDE RECORDS SUMMARY | 2023-11-07 02:28 | XMS_ITS | Encounter Summary ---
[place] [address] Care Team Providers Care Clicking Machine Operator Name Role Phone Robinson Vazquez APRN Primary Care Provider +1- [phone] Encounter Details Date Type Department Care Team (Late st Contact Info) Description 04/21/2022 8:55 PM EST Ancillary Procedure [place] [phone] Amanda Quan APRN [address] [id number] Social History Tobacco Use Types Packs/Day Years [...] 10:00 AM EST Office [place] [address] Tania Gates OD [facility] DR OPHTHALMOLOGY [place], [place] [phone] documented as of this encounter Procedures Procedure Name Priority Date/Time Associated Diagnosis Comments FILM LIBRARY STORAGE ONLY MR SPINE Routine 04/21/2022 8:50 PM EST documented in this encounter Results * Film Library- Storage Only MR Spine (04/21/2022 8:50 PM EST) Narrative KERRI - 04/21/2022 8:50 PM EST This exam is auto-finalizing. It's purpose is for storage only. Amanda Barksdale Kadeem STONE DRILLER IMG FILM LIBRARY O RDERABLES Performing Organization Address City/State/[facility] Co de Phone Number [place], [place] documented in this encounter Visit Diagnoses Not on filedocumented in this encounter Care Teams Clicking Machine Operator Relationship Specialty Start Date End Date Robinson Vazquez APRN [address] [place] [address] PCP - General Family Medicine 12/11/20 10/03/22 documented as of this encounter
--- OUTSIDE RECORDS SUMMARY | 2023-11-07 02:29 | XMS_ITS | Encounter Summary ---
Author Organization [facility] [place] [address] Care Team Providers Care Compressor Operator Adjuster Name Role Phone Robinson Vazquez APRN Primary Care Provider [phone]- [phone] Reason for Visit * Consultation (Routine) - Closed Specialty Diagnoses / Procedures Referred By Keith sanchez Referred To Contact Dermatology Diagnoses Actinic keratosis Actinic Keratosis due to Sun Exposure; New Patient-Notes Received Procedures Consult Robinson Vazquez APRN [address] [place] [address] [facility] [address] [place] [address] Referral ID Status Reason Start Date Expiration Date Visits Re quested Visits Authorized [id number] Closed 01/25/2021 01/25/2022 1 1 Encounter Details Date Type Department Care Team (Late st Contact Info) Description 03/30/2021 8:40 AM EST Office Visit Dermatology at [facility] [address] [place] [address] Amada Ferguson MD [facility] [address] [place] [address] SK (seborrheic keratosis); Multiple benign [...] can be removed cosmetically. Advised patient of [id number] cost. - Start OTC AmLactin Cream: Apply [...] 1 year for FSE [x]Note routed to field secretary []Recall placed in scheduling system []Appointment scheduled at checkout Scribe attestation: Anna Marie Vizcarra has performed the documentation for this encounter in the presence of and acting as a scribe for Amada Ferguson MD. I performed the above scribed service and agree with the accuracy of the documentation in this encounter. Reviewed and signed by: Amada Ferguson MD Dermatology [facility] Patient seen and evaluated with staff ham stripper: Zo Esqueda MD Dermatology [facility] * Zo Esqueda MD - 03/30/2021 8:40 [...] 10:00 AM EST Office [place] [address] Tania Gates OD [facility] [place] [address] documented as of this encounter Visit Diagnoses Diagnosis SK (seborrheic keratosis) Other seborrheic keratosis Multiple benign melanocytic nevi of upper extremity, lower extremity, and trunk Lentigines Other dyschromia documented in this encounter Care Teams Compressor Operator Adjuster Relationship Specialty Start Date End Date Robinson Vazquez, JOVANI [address] [place] [address] PCP - General Family Medicine 12/11/20 10/03/22 documented as of this encounter
--- OUTSIDE RECORDS SUMMARY | 2023-11-07 02:29 | XMS_ITS | Encounter Summary ---
[place] [address] Care Team Providers Care Testing Coordinator Name Role Phone Sae Marr MD Primary Care Provider [phone] Reason for Visit * Reason Onset Date Comments Bumped Appointment 01/29/2020 Encounter Details Date Type Department Care Team (Late st Contact Info) Description 01/29/2020 [place] [address] Tania Gates OD [facility] [place] [address] Bumped Appointment Social History Tobacco Use Types [...] Hassan - 01/29/2020 4:46 PM ESTSummary: Kody [facility] to 02/12/20. Spoke w pt to [facility] 02/11/20 PETER Gates FU for: 1 year for CEE. Reviewed updated Visitors Policy w pt, he will plan accordingly. BMP 1x, -Last Seen 02/08/19. RSC to 02/12/20. documented in this encounter Plan of Treatment Upcoming Encounters Date Type Department Care Team (Late st Contact Info) Description 03/20/2024 10:00 AM EST [place] [address] Tania Gates, [facility] [place] [address] documented as of this encounter Visit Diagnoses Not on filedocumented in this encounter Care Teams Testing Coordinator Relationship Specialty Start Date End Date Sae Marr MD PCP - General General Internal Medicine 08/06/19 9/3 documented as of this encounter
--- OUTSIDE RECORDS SUMMARY | 2023-11-07 02:29 | XMS_ITS | Encounter Summary ---
Author Organization [facility] [place] [address] Care Team Providers Care Tube Bender Hand Name Role Phone Sae Marr MD Primary Care Provider [phone] Reason for Visit * Reason Comments Eye Exam Encounter Details Date Type Department Care Team (Late st Contact Info) Description 02/12/2020 10:00 AM EST Office [place] [address] Tania Gates, OD [facility] [place] [address] Diabetic eye exam; Pseudophakia of right eye; [...] Rx given today in polycarbonate and advised film librarian wear for eye protection! - Findings and concerns discussed with Samy and he expressed understanding. -Upon Return CEE in 1 year, sooner with changes in sx/vision. Eyeglass Final Rx Eyeglass Final Rx Sphere Cylinder Baxter Dist VA Add Near VA Right +0.50 +0.50 175 20/20 - +2.50 20/20 Left Balance Expiration Date: 02/12/2022 Polycarbonate documented in this encounter Plan of Treatment Upcoming Encounters Date Type Department Care Team (Late st Contact Info) Description 03/20/2024 10:00 AM EST Office [place] [address] Tania Gates, [facility] [place] [address] documented as of this encounter Visit Diagnoses Diagnosis Diabetic eye exam Examination of eyes and vision Pseudophakia of right eye Lens replaced by other means Age-related nuclear cataract of left eye Senile nuclear sclerosis History of eye injury Personal history of other injury Astigmatism of both eyes with presbyopia documented in this encounter Care Teams Tube Bender Hand Relationship Specialty Start Date End Date Sae Marr MD PCP - General General Internal Medicine 08/06/19 9/3 documented as of this encounter
--- OUTSIDE RECORDS SUMMARY | 2023-11-07 02:29 | XMS_ITS | Encounter Summary ---
[place] [address] Care Team Providers Care Retail Cashier Name Role Phone Sae Marr MD Primary Care Provider [phone] Reason for Visit * Reason Onset Date Comments Follow-up 01/15/2020 Tobacco Treatmen t Encounter Details Date Type Department Care Team (Late st Contact Info) Description 01/15/2020 Telephone [place] [address] Bryn Guevara, RN Follow-up (Tobacco Treatment) Social [...] 2020. Bryn Guevara, MSN, RN-, NCTTP Tobacco Mortgage Or Loan Underwriter [facility] Pager #[phone] documented in this encounter Plan of Treatment Upcoming Encounters Date Type Department Care Team (Late st Contact Info) Description 03/20/2024 10:00 AM EST Office [place] [address] Tania Gates OD [facility] [place] [address] documented as of this encounter Visit Diagnoses Not on filedocumented in this encounter Care Teams Retail Cashier Relationship Specialty Start Date End Date Sae Marr MD PCP - General General Internal Medicine 08/06/1911/13 documented as of this encounter
--- OUTSIDE RECORDS SUMMARY | 2023-11-07 02:29 | XMS_ITS | Encounter Summary ---
Author Organization [facility] [place] [address] Care Team Providers Care Senior Sales Assistant Name Role Phone Sae Marr MD Primary Care Provider [phone] Reason for Visit * Consultation (Routine) - Closed Specialty Diagnoses / Procedures Referred By Keith sanchez Referred To Contact Gastroenterology Diagnoses Abdominal pain and bloating Procedures Consult Gale Calderon MD [address] [place] [address] [facility] [address] [place] [address] Referral ID Status Reason Start Date Expiration Date Visits Re quested Visits Authorized [id number] Closed 05/29/2020 05/29/2021 1 1 Encounter Details Date Type Department Care Team (Late st Contact Info) Description 09/09/2020 1:30 PM EDT Office [place] [address] Janki Jean MD [facility] [place] [address] Dyspepsia; Abdominal bloating; Belching; Watery diarrhea Social [...] ?? Try the low FODMAP diet (see [facility] Syapse Roxana), work with your carpenter maintenance Follow-up: Telehealth in 2-3 months If no improvement, obtain additional testing and consider a trial of low dose psyllium (metamucil fiber). documented in this encounter Progress Notes * Janki Jean MD - 09/09/2020 1:30 PM EDT [facility] Section of Gastroenterology and Hepatology New Patient Visit PCP: Sae Marr MD Referring provider: Gale Bonner MD [address] [place] [address] HPI: This is a 54 y.o. male [...] peptic ulcers ?? 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 Duration of ETOH/tobacco: Has cut down on tobacco but has not quit. ETOH since age 46, 1-2 drinks/night. Prior pancreatitis: no SHx: [employer]s [employer], took over his part of his son's [...] Post-operative nausea and vomiting Had scope at [facility] and had vomiting [...] , Rfl: ??? OneTouch Verio Flex meter [facility] TEST BLOOD GLUCOSE TWICE A DAY, Disp: , Rfl: ??? sdssatopbbf-poweuuxlp-ylogvdfc 100-62.5-25 mcg Disk with Device, 1 puff [...] ?? Try the low FODMAP diet (see [facility] Syapse Roxana), work with your carpenter maintenance Follow-up: Telehealth in 2-3 months If no [...] Jean MD Section of Gastroenterology and Hepatology [facility] [address] documented in this encounter Plan of Treatment Upcoming Encounters Date Type Department Care Team (Late st Contact Info) Description 03/20/2024 10:00 AM EST Office Visit Ophthalmology at [place] [phone] Tania Gates OD [facility] [place] [address] documented as of this encounter Visit Diagnoses Diagnosis Dyspepsia Dyspepsia and other specified disorders of function of stomach Abdominal bloating Flatulence, eructation, and gas pain Belching Flatulence, eructation, and gas pain Watery diarrhea documented in this encounter Care Teams Senior Sales Assistant Relationship Specialty Start Date End Date Sae Marr MD PCP - General General Internal Medicine 08/06/19/3 documented as of this encounter
--- OUTSIDE RECORDS SUMMARY | 2023-11-07 02:29 | XMS_ITS | Encounter Summary ---
Author Organization [facility] [address] Care Team Providers Care Brand Mgr Name Role Phone Robinson Vazquez APRN Primary Care Provider [phone] Encounter Details Date Type Department Care Team (Latest Contact Info) Description 12/28/2020 8:00 AM EDT TH Visit (TeleHealth) [place] [address] Janki Jean MD [facility] [place] [address] Watery diarrhea; Abdominal bloating; Dyspepsia Social History [...] * Patient Instructions* Janki Jean MD - 12/28/2020 8:00 AM [...] Jean MD - 12/28/2020 8:00 AM EDT [facility] Section of Gastroenterology and Hepatology [...] peptic ulcers ?? 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 Duration of ETOH/tobacco: Has cut down on [...] Post-operative nausea and vomiting Had scope [place] [facility] and had vomiting after Past Surgical History: Procedure Laterality Date ??? CATARACT REMOVAL Right 2016 ??? CORONARY ANGIOPLASTY WITH STENT PLACEMENT 08/2017 ??? PRO UPPER GI ENDOSCOPY, BIOPSY 04/26/2011 EGD WITH BIOPSY performed by KIRSTEN DAMON at [facility] ??? PRO UPPER GI ENDOSCOPY, BIOPSY N/A 09/27/2018 UPPER GASTROINTESTINAL ENDOSCOPY,WITH BIOPSY SINGLE OR MULTIPLE (WRVU 2.49) performed by Luc Hdz MD at [facility] Social History Socioeconomic History ??? [...] TWICE A DAY, Disp: , Rfl: ??? enltuzkdvhd-onzgeadfe-sgwzptfe 100-62.5-25 mcg Disk with Device, 1 puff [...] 3 months The patient was located in [place] at the time of their telemedicine visit. TIME SPENT WITH PATIENT Time spent during encounter with patient including counselin minutes Time spent documenting encounter after office visit: 5 minutes Total time: 31 minutes The risks, benefits and alternatives were discussed with the patient who understands and agrees with above. Janki Jean MD 12/27/20 Janki Jean MD Section of Gastroenterology and Hepatology [facility] [address] documented in this encounter Plan of Treatment Upcoming Encounters Date Type Department Care Team (Late st Contact Info) Description 03/20/2024 10:00 AM EST Office Visit Ophthalmology at [facility] [place] [address] Tania Gates, [facility] [address] Scheduled Orders Name Type Priority [...] who have questions please contact the health hospice care consultant that requested your imaging first. ? Electronically signed by: Jazmin Reed MD, [facility] ([phone]), at 12/29/2020 3:32 PM Procedure Note Jazmin [...] patients who have questions please contactthe health hospice care consultant that requested your imaging first. Janki Jean MD IMG DX ORDERABLES documented in this encounter Visit Diagnoses Diagnosis Watery diarrhea Abdominal bloating Flatulence, eructation, and gas pain Dyspepsia Dyspepsia and other specified disorders of function of stomach Abdominal bloating Flatulence, eructation, and gas pain documented in this encounter Care Teams Brand Mgr Relationship Specialty Start Date End Date Robinson Vazquez, LOADER OPERATOR [address] [place] [address] [address] [place] [address] PCP - General Family Medicine 12/11/20 10/03/22 documented as of this encounter
--- OUTSIDE RECORDS SUMMARY | 2023-11-07 02:29 | XMS_ITS | Encounter Summary ---
[place] [address] Care Team Providers Care Record Cutter Name Role Phone Robinson Vazquez APRN Primary Care Provider [phone] Encounter Details Date Type Department Care Team (Late st Contact Info) Description 01/05/2021 Telephone [place] [address] Ann Vázquez Social History Tobacco Use Types [...] 01/05/2021 4:53 PM EDT Samy Patricio Jr. [id number] Diagnosis/Indication: dyspepsia, hx of H pylori on [...] 10:00 AM EST Office [place] [address] Tania Gates OD [facility] [place] [address] documented as of this encounter Visit Diagnoses Not on filedocumented in this encounter Care Teams Record Cutter Relationship Specialty Start Date End Date Robinson Vazquez APRN [address] [place] [address] PCP - General Family Medicine 12/11/20 10/03/22 documented as of this encounter
--- OUTSIDE RECORDS SUMMARY | 2023-11-07 02:29 | XMS_ITS | Encounter Summary ---
Author Organization [facility] [place] [address] Care Team Providers Care Stock Plan Administrator Name Role Phone Sae Marr MD Primary Care Provider [phone] Encounter Details Date Type Department Care Team (Late st Contact Info) Description 08/06/2019 Notes Only Cardiology at [address] [phone] Antonina Merino MD [facility] [place] [address] Social History Tobacco Use Types Packs/Day Years [...] 10:00 AM EST [place] [phone] Tania Gates OD [facility] [place] [address] documented as of this encounter Visit Diagnoses Not on filedocumented in this encounter Care Teams Stock Plan Administrator Relationship Specialty Start Date End Date Sae Marr MD PCP - General General Internal Medicine 08/06/1911/13 documented as of this encounter
--- OUTSIDE RECORDS SUMMARY | 2023-11-07 02:29 | XMS_ITS | Encounter Summary ---
[place] [address] Care Team Providers Care Farm Machine Tender Name Role Phone Robinson Vazquez APRN Primary Care Provider [phone]- [phone] Encounter Details Date Type Department Care Team (Late st Contact Info) Description 12/18/2020 Orders [place] [phone] Royce Donahue PA [facility] [place] [place] [address] Screening for cardiovascular condition; Coronary artery disease, unspecified vessel or lesion type, unspecified whether angina present, unspecified whether nenana or transplanted heart; Chest discomfort Social History [...] AM EST Office [place] [phone] Tania Gates OD [facility] [place] [address] documented as of this encounter Visit Diagnoses Diagnosis Screening for cardiovascular condition Screening for other and unspecified cardiovascular conditions Coronary artery disease, unspecified vessel or lesion type, unspecified whether angina present, unspecified whether nenana or transplanted heart Chest discomfort Other chest pain documented in this encounter Care Teams Farm Machine Tender Relationship Specialty Start Date End Date Robinson Vazquez, RECOVERY RN [address] [place] [address] PCP - General Family Medicine 12/11/20 10/03/22 documented as of this encounter
--- OUTSIDE RECORDS SUMMARY | 2023-11-07 02:29 | XMS_ITS | Encounter Summary ---
[place] [address] Care Team Providers Care Rotary Drier Operator Name Role Phone Robinson Vazquez APRN Primary Care Provider [phone]- [phone] Encounter Details Date Type Department Care Team (Late st Contact Info) Description 01/26/2021 7:30 AM EST - 01/26/2021 8:15 AM EST Surgery [place] [phone] Nathaniel Azevedo MD [facility] [place] [address] EGD WITH BIOPSY (WRVU 2.39) Social History [...] the day after the procedure, use an psqb-acn-yipmlfj spray to numb your throat. Sucking on [...] occurs, please contact your Doctor. Please call [phone] before 8pm Mon-Fri with problems, questions or concerns. If you call after 8pm or on weekends, call the Hospital at [phone] and ask to speak to the Health Safety And Environment Manager men's custom hair piece consultant and the base draw operator will contact that person for you. When should you call for help? Call [phone] anytime you think you may need emergency [...] any problems. Where can you learn more? [facility] View your After Visit Summary and more online at [email or web address] If you would like to provide [...] cost to you. Content Version: 12.2 ?? [id number] [facility]. Care instructions adapted under license by [facility]. If you have questions about a medical condition or this instruction, always ask your healthcare professional. [facility] disclaims any warranty or liability for your use of this information. documented in this encounter Medications at Time of Discharge Medication Sig Dispensed Refills Start Date End Date acetaminophen (Tylenol) 325 mg tablet every 6 hours as needed. 06/27/2019 OneTouch Verio test strips Strip TEST BLOOD GLUCOSE TWICE A DAY 06/23/2020 OneTouch Verio Flex meter Misc TEST BLOOD GLUCOSE TWICE A DAY 06/23/2020 krbzovmtdic-fphoamfdx-k ilanter 100-62.5-25 mcg Disk with Device Inhale [...] this encounter H&P Notes * Luc Wheeler, COMMODITY MANAGER - 01/26/2021 6:58 AM EST Patient Name: [...] Wheeler APRN Section of Gastroenterology [place] [address] documented in this encounter Plan of Treatment Upcoming Encounters Date Type Department Care Team (Late st Contact Info) Description 03/20/2024 10:00 AM EST Office [place] [phone] Tania Gates [facility] [place] [address] documented as of this encounter Procedures Procedure Name Priority Date/Time Associated Diagnosis Comments SURGICAL PATHOLOGY REPORT Routine 01/26/2021 8:06 AM EST SPECIMEN TO PATHOLOGY Routine 01/26/2021 8:06 AM EST SPECIMEN TO PATHOLOGY Routine 01/26/2021 8:06 AM EST SPECIMEN TO PATHOLOGY Routine 01/26/2021 8:06 AM EST Upper Gi Endoscopy, Biopsy ([id number]) 01/26/2021 7:38 AM EST Dyspepsia UPPER GI ENDOSCOPY Routine 01/26/2021 7: 01 AM EST documented in this encounter Results * Surgical Pathology Report (01/26/2021 8:06 AM EST) Final Diagnosis [id number] ? Location: 4T; EA07; A The signing [...] Verified: ??02/04/2021 0:22 ?? Pathologist Performed at: ??-[facility] Dept. [place]ology, [place], [place] SPECIMEN(S) SUBMITTED A - Gastric, biopsy [...] labeled C1. ??pps 02/04/2021 12:22 AM EST [facility] GI Biopsy 01/26/2021 8:06 AM EST 01/26/2021 8:06 AM EST GI Biopsy 01/26/2021 8:06 AM EST 01/26/2021 8:06 AM EST GI Biopsy 01/26/2021 8:06 AM EST 01/26/2021 8:06 AM EST Nathaniel Azevedo MD PATHOLOGY/[place] [address] * Specimen to Pathology (01/26/2021 8:06 AM EST) AP Specimen 01/26/2021 8:06 AM EST 01/26/2021 8:06 AM EST Narrative [facility] - 01/26/2021 8:06 AM EST Specimen requisition ordered. ??Separate Pathology report to follow Nathaniel Azevedo MD PATHOLOGY/CYTOLOGY O SAEID [facility] [place] [address] * Specimen to Pathology (01/26/2021 8:06 AM EST) AP Specimen 01/26/2021 8:06 AM EST 01/26/2021 8:06 AM EST Narrative [facility] - 01/26/2021 8:06 AM EST Specimen requisition ordered. ??Separate Pathology report to follow Nathaniel Azevedo MD PATHOLOGY/CYTOLOGY O SAEID [facility] [place] [address] * Specimen to Pathology (01/26/2021 8:06 AM EST) AP Specimen 01/26/2021 8:06 AM EST 01/26/2021 8:06 AM EST Narrative [facility] - 01/26/2021 8:06 AM EST Specimen requisition ordered. ??Separate Pathology report to follow Nathaniel Azevedo MD PATHOLOGY/CYTOLOGY O SAEID [facility] [place] [address] * UPPER GI ENDOSCOPY (01/26/2021 7:01 AM EST) UPPER GI ENDOSCOPY [facility] Endoscopy Procedure Date: 01/26/2021 7:01 AM ? Patient Name: Samy Patricio ? N: [id number] ? Date of : 1965 ? Age: 55 ? Order #: [id number] ? Instrument Name: [id number] ? Procedure: ? Upper GI endoscopy Indications: ? Dyspepsia Patient Profile: ? 55 yo M presents for EGD, referred by ? Dr. Jean with dyspepsia, history of ? H. pylori Providers: ? Nathaniel Azevedo, Clarissa Diaz, ? Grab Hooker, Zuleyka Sheppard Referring MD: ?Robinson Vazquez, Janki [...] physician, the nurse, the ? anesthesiologist, the drying machine back tender and ? the automotive tire technician in the pre-procedure ? area in [...] applicable - See Anesthesia documentation Impression: ?- Sparks-colored mucosa suspicious ? for short-segment Diaz's ? [...] CRNA) documented in this encounter Care Teams Rotary Drier Operator Relationship Specialty Start Date End Date Robinson Vazquez, COMMODITY MANAGER [address] [place] [address] PCP - General Family Medicine 12/11/20 10/03/22 documented as of this encounter
--- OUTSIDE RECORDS SUMMARY | 2023-11-07 02:29 | XMS_ITS | Encounter Summary ---
[place] [address] Care Team Providers Care Supervisor Assembling Name Role Phone Robinson Vazquez APRN Primary Care Provider +1- [phone] Encounter Details Date Type Department Care Team (Latest Contact Info) Description 01/26/2021 6:12 AM EST - 01/26/2021 9:03 AM EST Hospital Encounter [place] [phone] Nathaniel Azevedo MD [facility] [place] [address] Discharge Disposition: Home Social History Tobacco Use [...] the day after the procedure, use an qgog-twz-ssuyuot spray to numb your throat. Sucking on [...] occurs, please contact your Doctor. Please call [phone] before 8pm Mon-Fri with problems, questions or concerns. If you call after 8pm or on weekends, call the Hospital at [phone] and ask to speak to the Piano Tuner condenser setter and the winding operator will contact that person for you. When should you call for help? Call [phone] anytime you think you may need emergency [...] any problems. Where can you learn more? [facility] View your After Visit Summary and more online at [email or web address] If you would like to provide feedback [...] cost to you. Content Version: 12.2 ?? [id number] [facility]. Care instructions adapted under license by [facility]. If you have questions about a medical condition or this instruction, always ask your healthcare professional. [facility] disclaims any warranty or liability for your use of this information. documented in this encounter Medications at Time of Discharge Medication Sig Dispensed Refills Start Date End Date acetaminophen (Tylenol) 325 mg tablet every 6 hours as needed. 06/27/2019 OneTouch Verio test strips Strip TEST BLOOD GLUCOSE TWICE A DAY 06/23/2020 OneTouch Verio Flex meter Misc TEST BLOOD GLUCOSE TWICE A DAY 06/23/2020 jgwjsafmfvo-wqomkjbcn-j ilanter 100-62.5-25 mcg Disk with Device Inhale [...] this encounter H&P Notes * Luc Wheeler, MARBLE AND GRANITE POLISHER - 01/26/2021 6:58 AM EST Patient Name: [...] Wheeler APRN Section of Gastroenterology [place] [address] documented in this encounter Plan of Treatment Upcoming Encounters Date Type Department Care Team (Late st Contact Info) Description 03/20/2024 10:00 AM EST Office [place] [address] Tania Gates [facility] [place] [address] documented as of this encounter Procedures Procedure Name Priority Date/Time Associated Diagnosis Comments SURGICAL PATHOLOGY REPORT Routine 01/26/2021 8:06 AM EST SPECIMEN TO PATHOLOGY Routine 01/26/2021 8:06 AM EST SPECIMEN TO PATHOLOGY Routine 01/26/2021 8:06 AM EST SPECIMEN TO PATHOLOGY Routine 01/26/2021 8:06 AM EST Upper Gi Endoscopy, Biopsy ([id number]) 01/26/2021 7:38 AM EST Dyspepsia UPPER GI ENDOSCOPY Routine 01/26/2021 7: 01 AM EST documented in this encounter Results * Surgical Pathology Report (01/26/2021 8:06 AM EST) Final Diagnosis [id number] ? Location: 4T; EA07; A The signing [...] Verified: ??02/04/2021 0:22 ?? Pathologist Performed at: ??-[facility] Dept. of Pathology, [place], [place] SPECIMEN(S) SUBMITTED A - Gastric, biopsy [...] labeled C1. ??pps 02/04/2021 12:22 AM EST [facility] GI Biopsy 01/26/2021 8:06 AM EST 01/26/2021 8:06 AM EST GI Biopsy 01/26/2021 8:06 AM EST 01/26/2021 8:06 AM EST GI Biopsy 01/26/2021 8:06 AM EST 01/26/2021 8:06 AM EST Nathaniel Azevedo MD PATHOLOGY/[place] [address] * Specimen to Pathology (01/26/2021 8:06 AM EST) AP Specimen 01/26/2021 8:06 AM EST 01/26/2021 8:06 AM EST Narrative [facility] - 01/26/2021 8:06 AM EST Specimen requisition ordered. ??Separate Pathology report to follow Nathaniel Azevedo MD PATHOLOGY/CYTOLOGY O SAEDI [facility] [place] [address] * Specimen to Pathology (01/26/2021 8:06 AM EST) AP Specimen 01/26/2021 8:06 AM EST 01/26/2021 8:06 AM EST Narrative [facility] - 01/26/2021 8:06 AM EST Specimen requisition ordered. ??Separate Pathology report to follow Nathaniel Azevedo MD PATHOLOGY/[place] [address] * Specimen to Pathology (01/26/2021 8:06 AM EST) AP Specimen 01/26/2021 8:06 AM EST 01/26/2021 8:06 AM EST Narrative [facility] - 01/26/2021 8:06 AM EST Specimen requisition ordered. ??Separate Pathology report to follow Nathaniel Azevedo MD PATHOLOGY/CYTOLOGY O SAEID [facility] [place] [address] * UPPER GI ENDOSCOPY (01/26/2021 7:01 AM EST) UPPER GI ENDOSCOPY [facility] Endoscopy Procedure Date: 01/26/2021 7:01 AM ? Patient Name: Samy Patricio ? N: [id number] ? Date of : 1965 ? Age: 55 ? Order #: [id number] ? Instrument Name: [id number] ? Procedure: ? Upper GI endoscopy Indications: ? Dyspepsia Patient Profile: ? 55 yo M presents for EGD, referred by ? Dr. Jean with dyspepsia, history of ? H. pylori Providers: ? Nathaniel Azevedo, Clarissa Diaz, ? Corduroy Cutting Supervisor, Zuleyka Sheppard Referring MD: ?Robinson Vazquez, Janki [...] physician, the nurse, the ? anesthesiologist, the chief deputy coroner and ? the appraisal technician in the pre-procedure ? area in [...] applicable - See Anesthesia documentation Impression: ?- [place]-colored mucosa suspicious ? for short-segment Diaz's ? [...] CRNA) documented in this encounter Care Teams Supervisor Assembling Relationship Specialty Start Date End Date Robinson Vazquez, MARBLE AND GRANITE POLISHER [address] [place] [address] PCP - General Family Medicine 12/11/20 10/03/22 documented as of this encounter
--- OUTSIDE RECORDS SUMMARY | 2023-11-07 02:29 | XMS_ITS | Encounter Summary ---
[place] [address] Care Team Providers Care Development Engineer Name Role Phone Robinson Vazquez APRN Primary Care Provider +1- [phone] Encounter Details Date Type Department Care Team (Late st Contact Info) Description 01/26/2021 7:36 AM EST Anesthesia [place] [phone] Ashwini Miller MD [facility] [place] [address] Sumaya Agrawal CRNA [facility] [place] [address] Anesthesia Record Procedure Summary Procedure Name Responsible [...] 696.15 mg Dexmedetomidine 20 mcg Benzocaine 20% [place] 1 spray Succinylcholine 100 mg Ondansetron 4 mg lactated ringers infusion 200 mL * Agents Name O2 Air N2O Sevoflurane (et) * Blood No blood administrations on file. Lines, Drains, and Airways Type Details Placement Removal (RETIRED) Peripheral IV Line - Single Lumen 12/29/20; 1026; metacarpal vein (top of hand), left; vnow-uvt-ssrska catheter system; Anatomical Landmarks; US Not Used; 20 gauge, 3/4 in length; distraction, tolerated well, intradermal injection; 08/17/21 (LDA Cleanup utility RA#[id number]); 1027 (LDA Cleanup utility RA#[id number]) 12/29/20 1026 by Nathaniel Ulloa RN 08/17/21 1027 by Bryn Shankar (RETIRED) Peripheral IV Line - Single Lumen 12/29/20; 1039; median cubital vein (antecubital fossa), right; lblb-oja-cvtrfq catheter system; Anatomical Landmarks; US Not Used; [...] Sumaya Agrawal CRNA 01/26/21 0807 by Sumaya Agrawla CRNA documented in this encounter Social History [...] Procedure Summary Date: 01/26/21 Room / Location: [facility] ENDO 3 / [facility] ENDOSCOPY Anesthesia Start: 735 Anesthesia Stop: 812 Procedure: EGD WITH BIOPSY (WRVU 2.49) (N/A Trunk) Diagnosis: Dyspepsia (dyspepsia, hx of H pylori on PPI - please biopsy for H pylori) Surgeons: Nathaniel Azevedo MD Responsible Provider: Ashwini Miller MD Anesthesia Type: general ASA Status: 3 All Anesthesia Providers: Anesthesiologist: Ashwini Miller MD DEVICE PROCESSING ENGINEER: Sumaya Agrawal CRNA Vitals Value Taken Time BP 113/70 01/26/21 0840 Temp Pulse Resp 18 01/26/21 0830 SpO2 89 % 01/26/21 0846 Pain Level 0 01/26/21 0841 Vitals shown include unvalidated device data. Patient Location: PACU/[facility] Level of Consciousness: Awake and Alert Pain Management: Satisfactory Analgesia PONV: None Cardiovascular Status: At Baseline and Hemodynamically Stable Respiratory Status: At Baseline and Room Air Postoperative Fluid Status: Intravascular EUvolemia Possible Anesthetic Complications: NONE apparent at time of evaluation Final Primary Anesthesia Type: MAC (The anesthetic type performed was the same as planned.) Comments: ASHWINI MILLRE MD * Anesthesia Preprocedure Evaluation - Ashwini [...] 10 mg - LVEDP 21 in the Search Analyst - Prior to Cardiac Catheterization, noted to [...] Post-operative nausea and vomiting Had scope at [facility] and had vomiting after Past Surgical History: Procedure Laterality Date ??? CATARACT REMOVAL Right 2016 ??? CORONARY ANGIOPLASTY WITH STENT PLACEMENT 08/2017 ??? PRO UPPER GI ENDOSCOPY, BIOPSY 04/26/2011 EGD WITH BIOPSY performed by KIRSTEN DAMON at [facility] ENDOSCOPY ??? PRO UPPER GI ENDOSCOPY, BIOPSY N/A 09/27/2018 UPPER GASTROINTESTINAL ENDOSCOPY,WITH BIOPSY SINGLE OR MULTIPLE (WRVU 2.49) performed by Luc Hdz MD at [facility] ENDOSCOPY Social History Tobacco Use ??? Smoking [...] 55 year old male with recent ST PA Type 2 DM Morbid obesity and CAITLYN and COPD here for EGD. Region - Other Informed Consent: Anesthetic plan and risks discussed with patient. Plan discussed with DEVICE PROCESSING ENGINEER. Anesthesia Screening documented in this encounter Plan of Treatment Upcoming Encounters Date Type Department Care Team (Late st Contact Info) Description 03/20/2024 10:00 AM EST Office Visit Ophthalmology at [facility] [place] [address] Tania Gates, [facility] [place] [address] documented as of this encounter Visit Diagnoses [...] mg documented in this encounter Care Teams Development Engineer Relationship Specialty Start Date End Date Robinson Vazquez, MGMT SPECIALIST [address] [place] [address] [address] [place] [address] PCP - General Family Medicine 12/11/20 10/03/22 documented as of this encounter
--- OUTSIDE RECORDS SUMMARY | 2023-11-07 02:29 | XMS_ITS | Encounter Summary ---
Author Organization [facility] [place] [address] Care Team Providers Care Cognos Developer Name Role Phone Sae Marr MD Primary Care Provider [phone] Reason for Referral * Consultation (Routine) - Specialty Diagnoses / Procedures Referred By Contac t Referred To Contact Cardiology Diagnoses ST elevation myocardial infarction involving right coronary artery Philip Johnson MD [facility] GENERAL [place] [address] Yuliya Gtz MD [address] [place] [address] [place] [address] Referral ID Status Reason Start Date Expiration Date V isits Requested Visits Authorized [id number] Consult, Test & Treat 08/07/2019 02/03/2020 1 1 * Consultation (Routine) - Closed Specialty Diagnoses / Procedures Referred By Contact Referred To Contact Cardiac Rehabilitation Diagnoses ST elevation myocardial infarction (STEMI), unspecified artery Tariq Guerrero MD [facility] [place] [address] Cardiac Rehab, [address] [place] [address] Referral ID Status Reason Start Date Expiration Date V isits Requested Visits Authorized [id number] Closed Consult, Test & Treat 08/07/2019 02/03/2020 36 36 Reason for Visit * Reason Comments Hospital Transfer Chest Pain * Auth/Cert Specialty Diagnoses / Procedures Referred By Contac t Referred To Contact Diagnoses STEMI (ST elevation myocardial infarction) ST elevation myocardial infarction (STEMI), unspecified artery STEMI Referral ID Status Reason Start Date Expiration Date Visits Re quested Visits Authorized [id number] 1 1 Encounter Details Date Type Department Care Team (Latest Contact Info) Description 08/06/2019 1:58 AM EDT - 08/07/2019 6:17 PM EDT Hospital Encounter [place] [address] Tiffanie Espino MD [facility] DR EMERGENCY MEDICINE [place] [id number] Tariq Guerrero MD [facility] [place] [address] ST elevation myocardial infarction (STEMI), unspecified artery; [...] CARE - SAE MARR MD, August - [[phone]] - Please follow up with patient regarding his recent hospitalization for Inferior STEMI, s/p EDEN toRCA. - Please assess when appropriate to initiate Lisinopril; recommend BMP in the next 5-7 days to ensure that renal function is stable. - Please continue to direct care counselor regarding smoking cessation; he has been discharged with a Nicotine Patch. - Please consider referral to Sleep Medicine for Sleep Study; patient noted to have 3 L QHS oxygen requirement due to episodic desaturations. - LVEDP was 21 on [facility] - please assess need for maintenance diuretic. [...] a NicotinePatch. - LVEDP was 21 on [facility] - please assess need for maintenance diuretic. [...] compared to ticagrelor or plavix, reducing stroke, OR and (NEJM 2019). ?? Give plavix 75 [...] prompted his to call [phone]. Per the flavoring machine operator's instructionshe took SLN x3, but did not experience any relief of symptoms. ?? EMS arrived and noted his heart rate to be in the 30s with blood pressures 60s/30s. He was transcutaneously paced en route to [facility]. EKG at [facility] showed STEs in the inferior leads [...] epinephrine. ?? He was transferred to the [facility] ED for evaluation. On arrival to [facility] he had continued chest pain, but his EKG changes had resolved. He was on 1.5 of epi with heart rates in the 80s and blood pressures in the 110s/50s. He was taken immediately to the cheesemaking laborer where he had a EDEN placed to his proximal RCA. He was weaned off of epinephrine in the cheesemaking laborer and transferred to the CSCU. ?? In [...] DILATION AND TEST, RAMIRO; TECHRAMIRO Ophthalmology at [facility] Arrive at: Cashier Payments Received Area 4B [phone] Future Orders Complete By Expires Referral to Cardiac Rehab [[id number] Custom] As directed Process Instructions: If no progress note charted, please enter Clinical details in comments. Scheduling Instructions: Questions: My question or request is: STEMI. Cardiac rehab at [facility]. Referral to Cardiology [REF12 Custom] As [...] appointments: During 8am-5pm Monday through Monday call [phone] to speak with a nurse in the cardiology clinic All other times call [phone] and ask to speak to the press feeder broomcorn simulation engineer. Activity level: - No heavy lifting (more [...] Center 02/11/2020 8:40 AM [address] [facility] OPHT [address]B [facility] Follow-Up Appointments Date and Time Provider and Specialty Location August 18 8:40am LEE HALL [facility] September 04 YULIYA GTZ MD [place], [place] Hollow Ware Maker: Yuliya Gtz MD at [phone] PCP: Sae Marr MD at [phone] Your Primary Care Provider: Sae Marr MD [address] [place] [address] For questions regarding issues relating to your hospitalization on the Hospital Medicine Service, please contact your inpatient physician through the [facility] Croze Machine Operator [phone]. Issues after hours and on weekends will be handled by the Hospitalist staff on-call. For questions regarding this document or issues relating to this hospitalization on the Medical Service, please contact your inpatient physician through the [facility] Croze Machine Operator . Issues afterhours and on weekends will be handled by the Hollow Ware Maker staff on-call. documented in this encounter Discharge [...] appointments: During 8am-5pm Monday through Monday call [phone] to speak with a nurse in the cardiology clinic All other times call [phone] and ask to speak to the press feeder broomcorn simulation engineer. Activity level: - No heavy lifting (more [...] Center 02/11/2020 8:[address] [facility] OPHT [address]B [facility] Follow-Up Appointments Date and Time Provider and Specialty Location August 18 8:40am LEE HALL [facility] September 04 YULIYA GTZ MD [place], [place] Hollow Ware Maker: Yuliya Gtz MD at [phone] PCP: Sae Marr MD at [phone] Your Primary Care Provider: Sae Marr MD [address] [place] [address] [phone] For questions regarding issues relating to your hospitalization on the Hospital Medicine Service, please contact your inpatient physician through the [facility] Croze Machine Operator [phone]. Issues after hours and on weekends will be handled by the Hospitalist staff on-call. * Attachments The following attachments cannot be sent through Care Everywhere. * Smoking: Stopping (Irish) * Smoking: Anti-Smoking Medication: Deciding About (Irish) * Smoking Cessation: Health Benefits: General Info (Irish) * Cardiac Rehabilitation (Irish) * Heart Attack: Medicine for Secondary Prevention (Irish) * PCI (Percutaneous Coronary Intervention): Post-op (Irish) documented in this encounter Medications at Time [...] - S/P TNK prior to transfer to [facility] - S/P Prasugrel & ASA load followed by maintenance ASA 81 mg & Prasugrel 10 mg - LVEDP 21 in the [facility] - Prior to Cardiac Catheterization, noted to [...] was high. 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 3. COPD - Duoneb q4h [...] diuretic. Drew Damon MD 08/07/2019 Cardiology S2, 5987 Associated attestation - Tariq Guerrero MD - [...] PCP: Sae Marr MD PCP phone #: [phone] ID/Chief Complaint: Inferior STEMI History of Present [...] prompted his to call 911. Per the flavoring machine operator's instructionshe took SLN x3, but did not experience any relief of symptoms. EMS arrived and noted his heart rate to be in the 30s with blood pressures 60s/30s. He was transcutaneously paced en route to [facility]. EKG at [facility] showed STEs in the inferior leads [...] to epinephrine. He was transferred to the [facility] ED for evaluation. On arrival to [facility] he had continued chest pain, but his EKG changes had resolved. He was on 1.5 of epi with heart rates in the 80s and blood pressures in the 110s/50s. He was taken immediately to the cheesemaking laborer where he had a EDEN placed to his proximal RCA. He was weaned off of epinephrine in the cheesemaking laborer and transferred to the CSCU. In the [...] daily. ??? lancets 33 gauge Misc Lancets [facility] USE DIRECTED. Active ??? 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 Invalid input(s): [id number] Heme: No results for input(s): LDH, HAPTOGLOBIN, [...] Admit to Cardiology, S2 Team Pager # [phone] #CAD #inferior STEMI - s/p asa 324 [...] cardiology and will be rushed to the [facility]. Review of Systems: Review of Systems Constitutional: [...] by cardiology and was rushed to the [facility]. No infectious symptoms concerning for COVID. Mendoza [...] in the outpatient cardiac rehabilitation program at [facility] was discussed. Patient agrees to a referral to this program. He participated in a few sessions of cardiac rehab [facility] in 2018 s/p PCI. 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 No problem w/ADL's Living Situation: lives w/spouse in a single level w/3STE and also has a camp w/2STE Physical Address [address] [place] [address] [place] [address] Supports: Lives w/ and [id number] who are both supportive. Also has friends [...] home via car w/ when medically ready. public relations senior associate/Application Development Liaison will continue to follow patient???s progress and remain available if situation changes for coordination of care, psychosocial support and/or discharge planning. Kareen Samayoa RN Pager [phone] Extension [phone] * Plan of Care - Natalia Renee [...] concerns. Thank you. Bryn Guevara, MSN, RN-, [facility] Tobacco Advertisement Compositor [facility] Pager #[phone] * Plan of Care - Daniel Sands [...] Merino MD - 08/06/2019 3:[address] [facility] Operative Note Patient Name: Samy Patricio Jr. : [id number] MR#: [id number] Case Date: 08/06/2019 Surgeon: Surgeon(s) and Role: [...] compared to ticagrelor or plavix, reducing stroke, OR and (NEJM 2019). Give plavix 75 mg [...] arrived via EMS from OSH for Stemi cheesemaking laborer. 3PM patient started to have chest pain continued to get worse. Took 3 SL nitro at home and EMS was called. documented in this encounter Plan of Treatment Upcoming Encounters Date Type Department Care Team (Late st Contact Info) Description 03/20/2024 10:00 AM EST Office [place] [address] [address] [facility] [place] [address] Scheduled Orders Name Type Priority Associated Diagnoses [...] Glucose, POC 286(H) 65 - 199 mg/dL [facility] Comment: Supplemental ranges: <140 mg/dL before meals <180 mg/dL all other times of the day Blood specimen (specimen) 08/07/2019 4:53 PM EDT 08/07/2019 4:53 PM EDT Tariq Guerrero MD POINT OF CARE TEST O SAEID Performing Organization Address City/[facility]/ZIP Co de Phone Number [facility] [place] [address] * POCT Glucose (08/07/2019 1:55 PM EDT) Glucose, POC 178 65 - 199 mg/dL [facility] Comment: Supplemental ranges: <140 mg/dL before meals <180 mg/dL all other times of the day Blood specimen (specimen) 08/07/2019 1:55 PM EDT 08/07/2019 1:55 PM EDT Tariq Guerrero MD POINT OF CARE TEST O SAEID [facility] [place] [address] * CK (08/07/2019 12:05 PM EDT) Creatine Kinase 133 0 - 200 unit/L [facility] Blood specimen (specimen) 08/07/2019 12:05 PM EDT 08/07/2019 12:20 PM EDT Narrative Resulting Agency Comment Spec In Lab Tariq Guerrero MD CHEMISTRY ORDERABLES Performing Organization Address [facility] Co de Phone Number [facility] [place] [address] * (ABNORMAL) POCT Glucose (08/07/2019 11:20 AM EDT) Glucose, POC 309(H) 65 - 199 mg/dL [facility] Comment: Supplemental ranges: <140 mg/dL before meals <180 mg/dL all other times of the day Blood specimen (specimen) 08/07/2019 11:20 AM EDT 08/07/2019 11:20 AM EDT Tariq Guerrero MD POINT OF CARE TEST O RDERABLES Performing Organization Address [facility] Co de Phone Number [facility] [place] [address] * EKG 12 Lead (08/07/2019 8:57 AM EDT) Ventricular rate 75 BPM MUSE SYSTEM Atrial Rate 75 BPM MUSE SYSTEM P-R Interval 176 ms MUSE SYSTEM QRS Duration 94 ms MUSE SYSTEM Q-T Interval 390 ms MUSE SYSTEM QTC Calculated (Bezet) 435 ms MUSE SYSTEM Calculated P [place] 67 degrees MUSE SYSTEM Calculated R [place] 47 degrees MUSE SYSTEM Calculated T [place] -5 degrees MUSE SYSTEM INTERPRETATION Normal sinus rhythm T wave abnormality, consider inferior ischemia Abnormal ECG When compared with ECG of 06-AUG-2019 20:18, (unconfirmed) No significant change was found Confirmed by MD Yaima, Timothy Collins ([id number]) on 08/07/2019 5:14:03 PM MUSE SYSTEM 08/07/2019 8:57 AM EDT 08/07/2019 5:14 PM EDT Tiffanie Espino MD ECG ORDERABLES Performing Organization Address [facility] Co de Phone Number MUSE SYSTEM * POCT Glucose (08/07/2019 7:23 AM EDT) Glucose, POC 160 65 - 199 mg/dL [facility] Comment: Supplemental ranges: <140 mg/dL before meals <180 mg/dL all other times of the day Blood specimen (specimen) 08/07/2019 7:23 AM EDT 08/07/2019 7:23 AM EDT Tariq Guerrero MD POINT OF CARE TEST O RDERABLES Performing Organization Address [facility] Co de Phone Number [facility] [place] [address] * CK (08/07/2019 5:53 AM EDT) Creatine Kinase 168 0 - 200 unit/L [facility] Blood specimen (specimen) Venous Draw / Unknown 08/07/2019 5:53 AM EDT 08/07/2019 6:07 AM EDT Narrative Resulting Agency Comment Spec In Lab Philip Johnson MD CHEMISTRY ORDERABLES Performing Organization Address [facility] Co de Phone Number [facility] [place] [address] * (ABNORMAL) Troponin (08/07/2019 5:53 AM EDT) Troponin-T 0.50(H) 0.00 - 0.00 ng/mL [facility] Comment: The 99th percentile for Troponin T is less than 0.01 ng/mL, any detectable cTnT concentration using this assay should be considered elevated. According to the third universal definition of myocardial infarction the following criteria with a clinical presentation consistent with acute myocardial ischemia meets the diagnosis for a myocardial infarction (OR). Detection of a rise and/or fall of cTnT, with at least one value greater than the 99th percentile (> or = 0.01) and with at least one of the following ?? Symptoms of ischemia ?? New or presumed new significant OB-ociyvtu-M wave (ST-T) changes or new left bundle [...] additional sample may be indicated. Reference: Third [place] Definition of Myocardial Infarction. Journal of the [place] College of Cardiology 2012;60:1581-98 Blood specimen (specimen) 08/07/2019 5:53 AM EDT 08/07/2019 5:59 AM EDT Narrative Resulting Agency Comment Spec In Lab Tariq Guerrero MD CHEMISTRY ORDERABLES [facility] [place] [address] * Differential, Automated (08/07/2019 5:53 AM EDT) Neutrophil % 59.8 % [facility] Neutrophil Absolute 4.63 1.70 - 6.10 x10(3)/[facility] Lymph % 24.9 % [facility] Lymphocytes Abs 1.9 0.9 - 3.2 x10(3)/[facility] Monocyte % 8.5 % [facility] Monocyte Abs 0.7 0.3 - 0.9 x10(3)/[facility] Eos % 5.8 % [facility] Eosinophils Abs 0.4 0.0 - 0.4 x10(3)/[facility] Basophil % 0.5 % [facility] Baso Absolute 0.0 0.0 - 0.1 x10(3)/[facility] Immature Gran % 0.50 % [facility] Comment: Immature granulocytes(IG's)percentage and absolute count will include metamyelocytes, myelocytes, and promyelocytes. Blood smears from CBCs yielding IG's will be scanned manually for concordance. If this scan disagrees with the automated IG or if promyelocytes are noted, a manual differential will be performed. Immature Gran Absolute 0.04 0.00 - 0.04 x10(3)/[facility] Blood specimen (specimen) 08/07/2019 5:53 AM EDT 08/07/2019 5:59 AM EDT Narrative Resulting Agency Comment Spec In Lab Lovely Moise MD HEMATOLOGY ORDERABLE S [facility] [place] [address] * Hemogram (08/07/2019 5:53 AM EDT) White Blood Cell 7.8 4.0 - 9.5 x10(3)/[facility] Red Blood Cell 4.71 4.58 - 5.54 x10(6)/[facility] Hemoglobin 14.5 13.7 - 16.5 gm/dL [facility] Hematocrit 43.0 40.5 - 48.5 % [facility] Mean Cell Volume 91.3 82.9 - 93.1 [facility] Mean Cell Hemoglobin 30.8 27.5 - 32.1 pg [facility] Mean Cell Hemoglobin Concentration 33.7 32.0 - 35.7 gm/dL [facility] Platelet 181 145 - 357 x10(3)/[facility] RDW Standard Deviation 44.3 36.0 - 45.0 [facility] RDW coefficient of variation 13.1 11.4 - 13.8 % [facility] Mean Platelet Volume 9.6 7.6 - 12.9 [facility] NRBC% auto 0.0 % [facility] NRBC Absolute 0.000 0.000 - 0.000 x10(3)/[facility] Blood specimen (specimen) 08/07/2019 5:53 AM EDT 08/07/2019 5:59 AM EDT Narrative Resulting Agency Comment Spec In Lab Lovely Moise MD HEMATOLOGY ORDERABLE S [facility] [place] [address] * Magnesium (08/07/2019 5:53 AM EDT) Magnesium 0.86 0.69 - 1.07 mmol/L [facility] Blood specimen (specimen) 08/07/2019 5:53 AM EDT 08/07/2019 5:59 AM EDT Narrative Resulting Agency Comment Spec In Lab Tariq Guerrero MD CHEMISTRY ORDERABLES [facility] [place] [address] * (ABNORMAL) BMP w/fasting Glucose (08/07/2019 5:53 AM EDT) Glucose Fasting 152(H) 65 - 99 mg/dL [facility] Comment: ?Fasting* Glucose [...] of Diabetes Mellitus, Position Statement from the [place] Diabetes Association. ??Diabetes Care, Volume 33, Supplement 1, Mar 2009 Blood Urea Nitrogen 14 10 - 20 mg/dL [facility] Creatinine 1.43 0.80 - 1.50 mg/dL [facility] Sodium 141 135 - 145 mmol/L [facility] Potassium 4.1 3.5 - 5.0 mmol/L [facility] Comment: Please note: ??Patients with WBC >100,000 may have falsely elevated Potassium levels. ??For accurate Potassium quantification in these patients send serum separator tube (gold top) for subsequent determinations. ??Contact the Clinical Chemistry Laboratory if there are any questions. Chloride 100 98 - 107 mmol/L [facility] Carbon Dioxide 30 22 - 31 mmol/L [facility] Anion Gap 11 5 - 15 mmol/L [facility] Calcium 8.9 8.5 - 10.5 mg/dL [facility] Est Glomerular Filtration Rate 56(L) >=60 mL/min/1. 73 m?? [facility] Comment: The eGFR was calculated using the CKD-EPI equation. As with all creatinine based estimates of kidney function, eGFR values calculated with the CKD-EPI equation are not accurate in patients with acute kidney failure, extremes of body mass or the acutely ill. http://[employer]/[facility] eGFR 65 >=60 mL/min/1. 73 m?? [facility] Comment: The eGFR was calculated using the CKD-EPI equation. As with all creatinine based estimates of kidney function, eGFR values calculated with the CKD-EPI equation are not accurate in patients with acute kidney failure, extremes of body mass or the acutely ill. http://[employer]/[facility]nkf Blood specimen (specimen) 08/07/2019 5:53 AM EDT 08/07/2019 5:59 AM EDT Narrative Resulting Agency Comment Spec In Lab Tariq Guerrero MD CHEMISTRY ORDERABLES [facility] [place] [address] * POCT Glucose (08/07/2019 4:16 AM EDT) Glucose, POC 120 65 - 199 mg/dL [facility] Comment: Supplemental ranges: <140 mg/dL before meals <180 mg/dL all other times of the day Blood specimen (specimen) 08/07/2019 4:16 AM EDT 08/07/2019 4:16 AM EDT Tariq Guerrero MD POINT OF CARE TEST O RDERABLES Performing Organization Address City/[facility]/ZIP Co de Phone Number [facility] [place] [address] * (ABNORMAL) CK (08/07/2019 12:28 AM EDT) Creatine Kinase 220(H) 0 - 200 unit/L [facility] Blood specimen (specimen) 08/07/2019 12:28 AM EDT 08/07/2019 12:37 AM EDT Narrative Resulting Agency Comment Spec In Lab Tariq Guerrero MD CHEMISTRY ORDERABLES Performing Organization Address [facility] Co de Phone Number [facility] [place] [address] * (ABNORMAL) Troponin (08/07/2019 12:28 AM EDT) Troponin-T 0.62(H) 0.00 - 0.00 ng/mL [facility] Comment: The 99th percentile for Troponin T is less than 0.01 ng/mL, any detectable cTnT concentration using this assay should be considered elevated. According to the third universal definition of myocardial infarction the following criteria with a clinical presentation consistent with acute myocardial ischemia meets the diagnosis for a myocardial infarction (OR). Detection of a rise and/or fall of cTnT, with at least one value greater than the 99th percentile (> or = 0.01) and with at least one of the following ?? Symptoms of ischemia ?? New or presumed new significant QN-ckcpsya-Q wave (ST-T) changes or new left bundle [...] additional sample may be indicated. Reference: Third [place] Definition of Myocardial Infarction. Journal of the [place] College of Cardiology 2012;60:1581-98 Blood specimen (specimen) 08/07/2019 12:28 AM EDT 08/07/2019 12:37 AM EDT Narrative Resulting Agency Comment Spec In Lab Tariq Guerrero MD CHEMISTRY ORDERABLES Performing Organization Address [facility] Co de Phone Number [facility] [place] [address] * (ABNORMAL) POCT Glucose (08/06/2019 11:26 PM EDT) Glucose, POC 216(H) 65 - 199 mg/dL [facility] Comment: Supplemental ranges: <140 mg/dL before meals <180 mg/dL all other times of the day Blood specimen (specimen) 08/06/2019 11:26 PM EDT 08/06/2019 11:26 PM EDT Tariq Guerrero MD POINT OF CARE TEST O RDERABLES Performing Organization Address [facility] Co de Phone Number [facility] [place] [address] * EKG 12 Lead (08/06/2019 8:18 PM EDT) Ventricular rate 81 BPM MUSE SYSTEM Atrial Rate 81 BPM MUSE SYSTEM P-R Interval 178 ms MUSE SYSTEM QRS Duration 96 ms MUSE SYSTEM Q-T Interval 368 ms MUSE SYSTEM QTC Calculated (Bezet) 427 ms MUSE SYSTEM Calculated P [place] 64 degrees MUSE SYSTEM Calculated R [place] 52 degrees MUSE SYSTEM Calculated T [place] 3 degrees MUSE SYSTEM INTERPRETATION Normal sinus rhythm Normal ECG When compared with ECG of 06-AUG-2019 06:13, (unconfirmed) No significant change was found Confirmed by MD Yaima, Timothy Collins ([id number]) on 08/07/2019 4:51:03 PM MUSE SYSTEM 08/06/2019 8:18 PM EDT 08/07/2019 4:51 PM EDT Tariq Guerrero MD ECG ORDERABLES Performing Organization Address [facility] Co de Phone Number MUSE SYSTEM * POCT Glucose (08/06/2019 7:59 PM EDT) Glucose, POC 193 65 - 199 mg/dL [facility] Comment: Supplemental ranges: <140 mg/dL before meals <180 mg/dL all other times of the day Blood specimen (specimen) 08/06/2019 7:59 PM EDT 08/06/2019 7:59 PM EDT Tariq Guerrero MD POINT OF CARE TEST O RDERABLES Performing Organization Address [facility] Co de Phone Number [facility] [place] [address] * (ABNORMAL) CK (08/06/2019 6:13 PM EDT) Creatine Kinase 301(H) 0 - 200 unit/L [facility] Blood specimen (specimen) 08/06/2019 6:13 PM EDT 08/06/2019 7:04 PM EDT Narrative Resulting Agency Comment Spec In Lab Tariq Guerrero MD CHEMISTRY ORDERABLES Performing Organization Address [facility] de Phone Number [facility] [place] [address] * (ABNORMAL) Troponin (08/06/2019 6:13 PM EDT) Troponin-T 0.84(H) 0.00 - 0.00 ng/mL [facility] Comment: The 99th percentile for Troponin T is less than 0.01 ng/mL, any detectable cTnT concentration using this assay should be considered elevated. According to the third universal definition of myocardial infarction the following criteria with a clinical presentation consistent with acute myocardial ischemia meets the diagnosis for a myocardial infarction (OR). Detection of a rise and/or fall of cTnT, with at least one value greater than the 99th percentile (> or = 0.01) and with at least one of the following ?? Symptoms of ischemia ?? New or presumed new significant DV-knyfjhe-C wave (ST-T) changes or new left bundle [...] additional sample may be indicated. Reference: Third [place] Definition of Myocardial Infarction. Journal of the [place] College of [employer]iology 2012;60:1581-98 Blood specimen (specimen) 08/06/2019 6:13 PM EDT 08/06/2019 7:04 PM EDT Narrative Resulting Agency Comment Spec In Lab Tariq Guerrero MD CHEMISTRY ORDERABLES Performing Organization Address City/[facility]/ZIP Co de Phone Number [facility] [place] [address] * POCT Glucose (08/06/2019 4:18 PM EDT) Glucose, POC 105 65 - 199 mg/dL [facility] Comment: Supplemental ranges: <140 mg/dL before meals <180 mg/dL all other times of the day Blood specimen (specimen) 08/06/2019 4:18 PM EDT 08/06/2019 4:18 PM EDT Tariq Guerrero MD POINT OF CARE TEST O RDERABLES Performing Organization Address [facility] Co de Phone Number [facility] [place] [address] * Magnesium (08/06/2019 2:06 PM EDT) Magnesium 0.82 0.69 - 1.07 mmol/L [facility] Blood specimen (specimen) 08/06/2019 2:06 PM EDT 08/06/2019 2:18 PM EDT Narrative Resulting Agency Comment Spec In Lab Tariq Guererro MD CHEMISTRY ORDERABLES Performing Organization Address [facility] Co de Phone Number [facility] [place] [address] * Basic Metabolic Panel (non-fasting) (08/06/2019 2:06 PM EDT) Glucose 108 65 - 199 mg/dL [facility] Comment:Diabetes: >=200 mg/d L plus symptoms Blood Urea Nitrogen 12 10 - 20 mg/dL [facility] Creatinine 1.23 0.80 - 1.50 mg/dL [facility] Sodium 140 135 - 145 mmol/L [facility] Potassium 4.4 3.5 - 5.0 mmol/L [facility] Comment: Please note: ??Patients with WBC >100,000 may have falsely elevated Potassium levels. ??For accurate Potassium quantification in these patients send serum separator tube (gold top) for subsequent determinations. ??Contact the Clinical Chemistry Laboratory if there are any questions. Chloride 101 98 - 107 mmol/L [facility] Carbon Dioxide 26 22 - 31 mmol/L [facility] Anion Gap 13 5 - 15 mmol/L [facility] Calcium 9.3 8.5 - 10.5 mg/dL [facility] Est Glomerular Filtration Rate 67 >=60 mL/min/1. 73 m?? [facility] Comment: The eGFR was calculated using the CKD-EPI equation. As with all creatinine based estimates of kidney function, eGFR values calculated with the CKD-EPI equation are not accurate in patients with acute kidney failure, extremes of body mass or the acutely ill. http://[employer]/DHMCnkf eGFR 78 >=60 mL/min/1. 73 m?? [facility] Comment: The eGFR was calculated using the CKD-EPI equation. As with all creatinine based estimates of kidney function, eGFR values calculated with the CKD-EPI equation are not accurate in patients with acute kidney failure, extremes of body mass or the acutely ill. http://[employer]/DHMCnkf Blood specimen (specimen) 08/06/2019 2:06 PM EDT 08/06/2019 2:18 PM EDT Narrative Resulting Agency Comment Spec In Lab Tariq Guerrero MD CHEMISTRY ORDERABLES [facility] [place] [address] * (ABNORMAL) CK (08/06/2019 12:05 PM EDT) Creatine Kinase 344(H) 0 - 200 unit/L [facility] Blood specimen (specimen) 08/06/2019 12:05 PM EDT 08/06/2019 12:15 PM EDT Narrative Resulting Agency Comment Spec In Lab Tariq Guerrero MD CHEMISTRY ORDERABLES [facility] [place] [address] * (ABNORMAL) Troponin (08/06/2019 12:05 PM EDT) Pathologist [facility] Troponin-T 0.74(H) 0.00 - 0.00 ng/mL [facility] Comment: The 99th percentile for Troponin T is less than 0.01 ng/mL, any detectable cTnT concentration using this assay should be considered elevated. According to the third universal definition of myocardial infarction the following criteria with a clinical presentation consistent with acute myocardial ischemia meets the diagnosis for a myocardial infarction (OR). Detection of a rise and/or fall of cTnT, with at least one value greater than the 99th percentile (> or = 0.01) and with at least one of the following ?? Symptoms of ischemia ?? New or presumed new significant AN-vfcmhiv-T wave (ST-T) changes or new left bundle [...] additional sample may be indicated. Reference: Third [place] Definition of Myocardial Infarction. Journal of the [place] College of Cardiology 2012;60:1581-98 Blood specimen (specimen) 08/06/2019 12:05 PM EDT 08/06/2019 12:15 PM EDT Narrative Resulting Agency Comment Spec In Lab Tariq Guerrero MD CHEMISTRY ORDERABLES Performing Organization Address [facility] Co de Phone Number [facility] [place] [address] * POCT Glucose (08/06/2019 11:13 AM EDT) Glucose, POC 106 65 - 199 mg/dL [facility] Comment: Supplemental ranges: <140 mg/dL before meals <180 mg/dL all other times of the day Blood specimen (specimen) 08/06/2019 11:13 AM EDT 08/06/2019 11:13 AM EDT Tariq Guerrero MD POINT OF CARE TEST O RDERABLES Performing Organization Address [facility] Co de Phone Number [facility] [place] [address] * ECHO COMPLETE (08/06/2019 9:20 AM EDT) EF 64 HEARTLAB SYSTEM Anatomical Region Laterality Modality Other 08/06/2019 Narrative 08/06/2019 9:40 AM EDT Procedure: ?Transthoracic Echocardiogram Patient: ?SHENG STAPLES S ?(Age): 1965(53y) Med Rec#: ? [id number] ?Sex: ?M ? Site Loc: ? [facility] ?Ht / Wt: ??183(cm)/120(kg) Pt. Loc: ?Adult Floor ? BSA: ?2.4 Study Date: ?? 08/06/2019 ?Pt. Type: Inpatient Tape: ? Referring: EARLE Reading: Jack Lucas ([id number]) Can Carrier: Peter Beaver RDCS, FASE Interpreting Fellow: Tiffanie Hernandez ([id number]) Diagnosis: *ST elevation (STEMI) myocardial infarction of [...] Vmax ?0.88 ? m/sec ? MV deceleration expl040.89 ? msec ? MV A-wave Vmax ?0.85 [...] ? Mid-Inferior ?Normal ? Mid-Inferoseptal ?Normal ? [place]-Septal ? Normal ? [place]-Anterior ? Normal ? [place]-Lateral ?Normal ? [place]-Inferior ? Normal ? [place]-Tip ?Normal ? This report has been electronically signed by: Jack Lucas MD ? 08/06/2019 09:39:30 Images reviewed and interpretation verified [facility] Cardiac Ultrasound [facility] Procedure Note Jack Lucas MD - 08/06/2019 Procedure: Transthoracic Echocardiogram Patient: SHENG Oreilly DOB(Age): 1965(53y) Med Rec#: [id number] Sex: M Site Loc: [facility] Ht / Wt: 183(cm)/120(kg) Pt. Loc: Adult Floor BSA: 2.4 Study Date: 08/06/2019 Pt. Type: Inpatient Tape: Referring: EARLE Reading: Jack Lucas ([id number]) Can Carrier: Peter Beaver RDCS, LILY Interpreting Fellow: Tiffanie Hernandez ([id number]) Diagnosis: *ST elevation (STEMI) myocardial infarction of [...] MV E-wave Vmax 0.88 m/sec MV deceleration yycv143.89 msec MV A-wave Vmax 0.85 m/sec MV [...] Normal Mid-Posterolateral Normal Mid-Inferior Normal Mid-Inferoseptal Normal [place]-Septal Normal [place]-Anterior Normal [place]-Lateral Normal [place]-Inferior Normal [place]-Tip Normal This report has been electronically signed by: Jack Lucas MD 08/06/2019 09:39:30 Images reviewed and interpretation verified [facility] Ultrasound [facility] Tiffanie Espino MD ECHO ORDERABLES * POCT Glucose (08/06/2019 7:18 AM EDT) Glucose, POC 170 65 - 199 mg/dL [facility] Comment: Supplemental ranges: <140 mg/dL before meals <180 mg/dL all other times of the day Blood specimen (specimen) 08/06/2019 7:18 AM EDT 08/06/2019 7:18 AM EDT Tariq Guerrero MD POINT OF CARE TEST O RDERABLES [facility] [place] [phone] * XR Chest One View (08/06/2019 6:52 [...] signed by: Violeta Fortune MD, [facility] ([phone]), at 08/06/2019 8:34 AM Narrative 08/06/2019 8:34 [...] signed by: Violeta Fortune MD, [facility]([phone]), at 08/06/2019 8:34 AM Tiffanie Espino MD IMG DX ORDERABLES * EKG 12 Lead (08/06/2019 6:13 AM EDT) Ventricular rate 80 BPM MUSE SYSTEM Atrial Rate 80 BPM MUSE SYSTEM P-R Interval 190 ms MUSE SYSTEM QRS Duration 90 ms MUSE SYSTEM Q-T Interval 384 ms MUSE SYSTEM QTC Calculated (Bezet) 442 ms MUSE SYSTEM Calculated P [place] 68 degrees MUSE SYSTEM Calculated R [place] 59 degrees MUSE SYSTEM Calculated T [place] 24 degrees MUSE SYSTEM INTERPRETATION Normal sinus rhythm Normal ECG When compared with ECG of 06-AUG-2019 02:05, (unconfirmed) No significant change was found I personally reviewed the tracing and edited the fellows interpretation Confirmed by fellow MD eDe, Jaylin Oviedo ([id number]) on 08/06/2019 1:18:49 PM Confirmed by MD Yaima, Timothy Collins ([id number]) on 08/07/2019 9:47:42 AM MUSE SYSTEM 08/06/2019 6:13 AM EDT 08/07/2019 9:47 AM EDT Tiffanie Espino MD ECG ORDERABLES MUSE SYSTEM * Sedimentation rate (08/06/2019 5:35 AM EDT) Sedimentation Rate Automated 8 2 - 37 mm/hr [facility] Comment: Effective February [...] MD HEMATOLOGY ORDERABLE S Performing Organization Address [facility] Co de Phone Number [facility] [place] [address] * CRP, acute inflammation (08/06/2019 5:35 AM EDT) C-Reactive Protein 4.3 <=4.9 mg/L [facility] Blood specimen (specimen) Venous Draw / Unknown 08/06/2019 5:35 AM EDT 08/06/2019 5:44 AM EDT Narrative Resulting Agency Comment Spec In Lab Philip Johnson MD CHEMISTRY ORDERABLES Performing Organization Address City/[facility] Co de Phone Number [facility] [place] [address] * (ABNORMAL) Differential, Automated (08/06/2019 5:35 AM EDT) Neutrophil % 73.5 % [facility] Neutrophil Absolute 6.30(H) 1.70 - 6.10 x10(3)/ L [facility] Lymph % 16.2 % [facility] Lymphocytes Abs 1.4 0.9 - 3.2 x10(3)/ L [facility] Monocyte % 5.5 % [facility] Monocyte Abs 0.5 0.3 - 0.9 x10(3)/[facility] Eos % 3.6 % [facility] Eosinophils Abs 0.3 0.0 - 0.4 x10(3)/[facility] Basophil % 0.6 % [facility] Baso Absolute 0.0 0.0 - 0.1 x10(3)/[facility] Immature Gran % 0.60 % [facility] Comment: Immature granulocytes(IG's)percentage and absolute count will include metamyelocytes, myelocytes, and promyelocytes. Blood smears from CBCs yielding IG's will be scanned manually for concordance. If this scan disagrees with the automated IG or if promyelocytes are noted, a manual differential will be performed. Immature Gran Absolute 0.05(H) 0.00 - 0.04 x10(3)/[facility] Blood specimen (specimen) 08/06/2019 5:35 AM EDT 08/06/2019 5:41 AM EDT Narrative Resulting Agency Comment Spec In Lab Mendoza Richards MD HEMATOLOGY CASSI HU [facility] [place] [address] * (ABNORMAL) Hemogram (08/06/2019 5:35 AM EDT) White Blood Cell 8.6 4.0 - 9.5 x10(3)/[facility] Red Blood Cell 4.33(L) 4.58 - 5.54 x10(6)/[facility] Hemoglobin 13.4(L) 13.7 - 16.5 gm/dL [facility] Hematocrit 40.6 40.5 - 48.5 % [facility] Mean Cell Volume 93.8(H) 82.9 - 93.1 fL [facility] Mean Cell Hemoglobin 30.9 27.5 - 32.1 pg [facility] Mean Cell Hemoglobin Concentration 33.0 32.0 - 35.7 gm/dL [facility] Platelet 192 145 - 357 x10(3)/mc L [facility] RDW Standard Deviation 45.2(H) 36.0 - 45.0 fL [facility] RDW coefficient of variation 13.2 11.4 - 13.8 % [facility] Mean Platelet Volume 9.5 7.6 - 12.9 fL [facility] NRBC% auto 0.0 % [facility] NRBC Absolute 0.000 0.000 - 0.000 x10(3)/mc L [facility] Blood specimen (specimen) 08/06/2019 5:35 AM EDT 08/06/2019 5:41 AM EDT Narrative Resulting Agency Comment Spec In Lab Mendoza Richards MD HEMATOLOGY CASSI HU [facility] [place] [address] * Lipid Panel (Reflex Direct LDL) (08/06/2019 5:35 AM EDT) Cholesterol, Total 89 mg/dL [facility] Comment: Lower Risk: <200 mg/dL Average Risk: 200-239 mg/dL Higher Risk: >lo=724 mg/dL Triglyceride 89 mg/dL [facility] Comment: Average Risk/Lower Risk: <150 mg/dL Borderline High Risk: 150-199 mg/dL High Risk: 200-499 mg/dL Very High Risk: >um=825 mg/dL HDL Cholesterol 38 mg/dL [facility] Comment: Males: ?? Higher Risk: <40 mg/dL Females: ?? HIgher Risk: <50 mg/dL LDL Cholesterol 33 mg/dL [facility] Comment: Lowest Risk: <100 mg/dL Lower Risk: 100-129 mg/dL Borderline High Risk: 130-159 mg/dL High Risk: 160-189 mg/dL Very High Risk: >oi=883 mg/dL Cholesterol/HDL Ratio 2.3 ratio [facility] Lipid Interpretation See Note [facility] Comment: Lipid management should be guided by a patient? s ASCVD risk, goals and preferences. ACC/AHA Guidelines recommend high intensity statin if clinical ASCVD or LDL greater than or equal to 190 mg/dL. http://Easyclass.com.com/SOF-TZP-Hcweirtaw Adults aged 40-75 with LDL 70-189 mg/dL should have their 10 year ASCVD risk estimated with the ACC/AHA ASCVD risk commercial estimator http://tools.acc.org/SAVNY-Mdcv-Fahxpkkwe/ Statin should be discussed if risk greater [...] In Lab Tiffanie Espino MD CHEMISTRY ORDERABLES [facility] [place] [address] * (ABNORMAL) Hemoglobin A1c (08/06/2019 5:35 AM EDT) Hemoglobin A1c 6.3(H) 4.3 - 5.6 % [facility] Comment: Reference Range: [...] Mellitus, Diabetes Care 2013; 36: Suppl. 1, I27-65 Estimated Average Glucose 135 mg/dL [facility] Comment: eAG equivalents [...] into estimated average glucose values. ??Diabetes Care 2008:31(8):3182-0582. Blood specimen (specimen) 08/06/2019 5:35 AM EDT 08/06/2019 5:41 AM EDT Narrative Resulting Agency Comment Spec In Lab Tiffanie Espino MD CHEMISTRY ORDERABLES [facility] [place] [address] * (ABNORMAL) Troponin (08/06/2019 5:35 AM EDT) Troponin-T 0.31(H) 0.00 - 0.00 ng/mL [facility] Comment: The 99th percentile for Troponin T is less than 0.01 ng/mL, any detectable cTnT concentration using this assay should be considered elevated. According to the third universal definition of myocardial infarction the following criteria with a clinical presentation consistent with acute myocardial ischemia meets the diagnosis for a myocardial infarction (OR). Detection of a rise and/or fall of cTnT, with at least one value greater than the 99th percentile (> or = 0.01) and with at least one of the following ?? Symptoms of ischemia ?? New or presumed new significant AS-dprtuab-L wave (ST-T) changes or new left bundle [...] additional sample may be indicated. Reference: Third [place] Definition of Myocardial Infarction. Journal of the [place] College of Cardiology 2012;60:1581-98 Blood specimen (specimen) 08/06/2019 5:35 AM EDT 08/06/2019 5:41 AM EDT Narrative Resulting Agency Comment Spec In Lab Tiffanie Espino MD CHEMISTRY ORDERABLES Performing Organization Address City/State/[facility] Co de Phone Number [facility] [place] [address] * (ABNORMAL) Basic Metabolic Panel (non-fasting) (08/06/2019 5:35 AM EDT) Glucose 250(H) 65 - 199 mg/dL [facility] Comment:Diabetes: >=200 mg/d L plus symptoms Blood Urea Nitrogen 12 10 - 20 mg/dL [facility] Creatinine 1.26 0.80 - 1.50 mg/dL [facility] Sodium 138 135 - 145 mmol/L [facility] Potassium 4.5 3.5 - 5.0 mmol/L [facility] Comment: Please note: ??Patients with WBC >100,000 may have falsely elevated Potassium levels. ??For accurate Potassium quantification in these patients send serum separator tube (gold top) for subsequent determinations. ??Contact the Clinical Chemistry Laboratory if there are any questions. Chloride 103 98 - 107 mmol/L [facility] Carbon Dioxide 24 22 - 31 mmol/L [facility] Anion Gap 11 5 - 15 mmol/L [facility] Calcium 8.6 8.5 - 10.5 mg/dL [facility] Est Glomerular Filtration Rate 65 >=60 mL/min/1. 73 m?? [facility] Comment: The eGFR was calculated using the CKD-EPI equation. As with all creatinine based estimates of kidney function, eGFR values calculated with the CKD-EPI equation are not accurate in patients with acute kidney failure, extremes of body mass or the acutely ill. http://[employer]/[facility]nk[facility] eGFR 76 >=60 mL/min/1. 73 m?? [facility] Comment: The eGFR was calculated using the CKD-EPI equation. As with all creatinine based estimates of kidney function, eGFR values calculated with the CKD-EPI equation are not accurate in patients with acute kidney failure, extremes of body mass or the acutely ill. http://[employer]/[facility]nkf Blood specimen (specimen) 08/06/2019 5:35 AM EDT 08/06/2019 5:41 AM EDT Narrative Resulting Agency Comment Spec In Lab Tiffanie Espino MD CHEMISTRY ORDERABLES [facility] [place] [address] * (ABNORMAL) POCT Glucose (08/06/2019 5:32 AM EDT) Glucose, POC 215(H) 65 - 199 mg/dL [facility] Comment: Supplemental ranges: <140 mg/dL before meals <180 mg/dL all other times of the day Blood specimen (specimen) 08/06/2019 5:32 AM EDT 08/06/2019 5:32 AM EDT Tariq Guerrero MD POINT OF CARE TEST O RDERABLES Performing Organization Address [facility]/State/[facility] Co de Phone Number [facility] [place] [address] * CARDIAC CATHETERIZATION (08/06/2019 4:38 AM EDT) Anatomical Region Laterality Modality Other Narrative 08/09/2019 2:54 PM EDT ?[facility] ? Cardiac Catheterization/Intervention Report ? Patient Name: Sheng, Samy ? Procedure Date: 08/06/2019 ? A #: [id number] ? Primary Physician: Coylewright, Jung J ? Case #: [id number] ? File Name: [id number] ? Catheterization Order Number: [id number] ? [facility] ? Final Report [place], [place] ? Patient Name: ? Samy Patricio ? ID#: ?[id number] ? : ?1965 ? Procedure Date: ? [...] procedure was Emergent. 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 Consult [facility] Interventional Cardiology for ?questions. ?This patient has [...] against any medical treatment. Consult ?http://tools.acc.org/DAPTriskapp/#!/content/calculator/ or [facility] ?Interventional Cardiology for questions. ? Conclusions: ?* [...] Procedure Note Jung Merino MD - 09/12/2019 [facility] Cardiac Catheterization/Intervention Report Patient Name: Sheng Samy Procedure Date: 08/06/2019 A #: [id number] Primary Physician: Jung Merino Case #: [id number] File Name: [id number] Catheterization Order Number: [id number] [facility] FinalReport [place], [place] Patient Name: Samy Patricio ID#:[id number] :1965 Procedure Date: August 06, 2019 Case #: [id number] Room: 6 Case Physician: Jung Merino M.D. Start: 02:39 Fellow: Jose Ellison M.D. Admission:08/06/2019 Discharge:08/07/2019 Referring Physician: aSe Marr M.D. Procedures: * Coronary Angiography * [...] patient wasdesignated as ASA Class IV. The [employer] [facility] clinical [facility] is 4: Vulnerable. Diagnostic Tests: Electrocardiography: EKG was assessed by ECG. EKG was Abnormal. EKG showed STDeviation >= 0.5 mm. Medications Prior to Procedure: Angiotensin Converting Enzyme Inhibitor, Aspirin, Long Acting Nitrate, Statin and Thrombolytic (any). Indications for Diagnostic Cath: The priority of the diagnostic procedure was Emergent. Theindication for the cheesemaking laborer visit is ACS less than or equal [...] The priority for the procedure was Emergent.The [facility] indication for the procedure was STEMI (after [...] situation mayrequire modification of this regimen. Consult [facility] Interventional Cardiologyfor questions. This patient has a [...] or against any medical treatment.Consult http://tools.acc.org/DAPTriskapp/#!/content/calculator/ or [facility] Interventional Cardiology for questions. Conclusions: * One [...] (Bezet) 454 ms MUSE SYSTEM Calculated P [place] 68 degrees MUSE SYSTEM Calculated R [place] 71 degrees MUSE SYSTEM Calculated T [place] 24 degrees MUSE SYSTEM INTERPRETATION Normal sinus rhythm Normal ECG When compared with ECG of 04-JUL-2018 22:00, No significant change was found I personally reviewed the tracing and edited the fellows interpretation Confirmed by fellow MD Dee, Jaylin Oviedo ([id number]) on 08/06/2019 1:17:24 PM Confirmed by MD Erwin Gregory A. ([id number]) on 08/07/2019 9:47:34 AM MUSE SYSTEM 08/06/2019 [...] RN) 1714 (Given - Provider: Maureen Carrillo, GUILLAUEM) clopidogreL (Plavix) tablet 75 mg (COMPLETED) 75 mg, Oral, ONCE, 1 dose, On Mon08/06/19 at 0800, Routine 0828 (Given - Provider: Daniel Sands RN) folic acid (Folvite) tablet 1,000 mcg 1,000 mcg (1 mg), Oral, DAILY, First dose on Mon08/07/19 at 1030, Until Discontinued, Routine 1129 (Given - Provid er: Maureen Carrillo RN) furosemide (LASIX) injection 20 mg [...] Provider: Daniel Sands RN)2103 (Given - Provider: Natlaia Renee RN) 0507 (Given - Provider: Natalia [...] bpm, Routine 1348 (Given - Provider: Daniel Sands RN)1754 (Given - Provider: Rama Park RN)2328 [...] Routine documented in this encounter Care Teams Cognos Developer Relationship Specialty Start Date End Date Sae Marr MD PCP - General General Internal Medicine 08/06/19 9/ documented as of this encounter
--- OUTSIDE RECORDS SUMMARY | 2023-11-07 02:29 | XMS_ITS | Encounter Summary ---
[place] [address] Care Team Providers Care Associate Pathologist Name Role Phone Robinson Vazquez APRN Primary Care Provider +1- [phone] Encounter Details Date Type Department Care Team (Latest Contact Info) Description 12/29/2020 8:30 AM EDT - 12/29/2020 3:12 PM EDT Hospital Encounter Sign Writer [place] [phone] Snehal Dia MD [facility] [place] [address] Screening for cardiovascular condition; Coronary artery disease, unspecified vessel or lesion type, unspecified whether angina present, unspecified whether sitka or transplanted heart; Chest discomfort Discharge Disposition: [...] Your Primary Care Provider: Sae Marr MD [phone] For questions regarding this document or issues relating to this hospitalization on the Medical Service, please contact your inpatient physician through the [facility] Quote Clerk . Issues afterhours and on weekends will [...] TEST BLOOD GLUCOSE TWICE A DAY 06/23/2020 fqmzusukdqw-ohkltufhx-h ilanter 100-62.5-25 mcg Disk with Device Inhale [...] date: 12/29/2020 Attending Physician: Snehal Dia MD [facility] Interventional Cardiology Adult Pre-Procedure H&P Update: Mr Samy Patricio [id number] 1965 Chief Complaint: Chest discomfort HPI: Samy Patricio Jr. is a 55 y.o. 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 His medical history is notable for coronary disease with nstemi 2017 and RCA/LCx intervention at [facility], then in 2019 STEMI with inferior ecg [...] GERD/ Barretts DM SOCIAL Hx: [facility] in [facility] Outpatient Medications Marked as Taking for the 12/29/20 encounter (Hospital Encounter) Medication Sig Dispense Refill ??? ocoyklwmqka-zdmejxbdj-hsiccjjo 100-62.5-25 mcg Disk with Device 1 puff [...] ISABELLE Jackson Interventional Cardiology 12/29/20 10:12 AM [facility] Pager: [phone] documented in this encounter Miscellaneous Notes * Brief Op Note - Snehal Dia MD - 12/29/2020 12:52 PM EDT Preliminary Cardiac Catheterization Procedure Note: Patient Name: Samy Patricio Jr. : [id number] MR#: [id number] Case Date: 12/29/2020 Quote Clerk: Surgeon(s) and Role: * Snehal Dia MD [...] 10:00 AM EST Office [place] [address] Tania Gates OD [facility] [place] [address] documented as of this encounter Procedures Procedure Name Priority Date/Time Associated Diagnosis Comments POCT GLUCOSE Routine 01/26/2021 7:22 AM EST CARDIAC CATHETERIZATION Routine 12/29/2020 12:50 PM EDT Screening for cardiovascular condition Coronary artery disease, unspecified vessel or lesion type, unspecified whether angina present, unspecified whether sitka or transplanted heart Chest discomfort POCT GLUCOSE [...] type, unspecified whether angina present, unspecified whether sitka or transplanted heart Chest discomfort POCT GLUCOSE Routine 12/29/2020 9:50 AM EDT documented in this encounter Results * POCT Glucose (01/26/2021 7:22 AM EST) [facility] Glucose, POC 143 65 - 199 mg/dL [facility] Comment: Supplemental ranges: <140 mg/dL before meals <180 mg/dL all other times of the day Blood 01/26/2021 7:22 AM EST 01/26/2021 7:22 AM EST Snehal Dia MD POINT OF CARE TEST O RDERABLES Performing Organization Address City/State/[facility] Co de Phone Number [facility] [place] [address] * CARDIAC CATHETERIZATION (12/29/2020 12:50 PM EDT) Anatomical Region Laterality Modality Other Narrative 12/29/2020 4:24 PM EDT ?[facility] ? Cardiac Catheterization/Intervention Report ? Patient Name: Sheng, Samy Jr. S. ? Procedure Date: 12/29/2020 ? A #: [id number] ? Primary Physician: Snehal Dia ? Case #: [id number] ? File Name: [id number] ? Catheterization Order Number: [id number] ? [facility] ?Sign [facility] ? Final Report [place], [place] ? Patient Name: ? Samy Jr. S. Sheng ?ID#: ?[id number] ? : ?1965 ? Procedure Date: ? December 29, 2020 ? Case #: ? [id number] ? Room: ? 1 ? Case Physician: [...] was Elective. The indication for ?the cathode maker visit is worsening angina. Chest pain symptom [...] Procedure Note Snehal Dia MD - 12/29/2020 [facility] Cardiac Catheterization/Intervention Report Patient Name: Samy Patricio Jr. Procedure Date: 12/29/2020 A #: [id number] Primary Physician: Snehal Dia Case #: [id number] File Name: [id number] Catheterization Order Number: [id number] [facility] FinalReport [place], [place] Patient Name: Samy Patricio ID#:[id number] :1965 Procedure Date: December 29, 2020 Case [...] patient wasdesignated as ASA Class III. The [facility] clinical frailty scale is 4: Vulnerable. Diagnostic Tests: Electrocardiography: EKG was assessed by ECG. EKG was Abnormal. EKG showed STDeviation >= 0.5 mm. Medications Prior to Procedure: Aspirin, Beta Alejandra, Long Acting Nitrate and Statin. Indications for Diagnostic Cath: The priority of the diagnostic procedure was Elective. Theindication for the cathode maker visit is worsening angina. Chest pain symptomassessment [...] units of heparin were administered. A total gd384yn of Omnipaque were opened, 75cc of Omnipaque were administered xyn53pi of Omnipaque were wasted. Radiation: Fluoro time [...] * POCT Glucose (12/29/2020 12:32 PM EDT) [facility] Glucose, POC 152 65 - 199 mg/dL [facility] Comment: Supplemental ranges: <140 mg/dL before meals <180 mg/dL all other times of the day Blood 12/29/2020 12:3 2 PM EDT 12/29/2020 12:32 PM EDT Snehal Dia MD POINT OF CARE TEST O RDERABLES [facility] [place] [address] * Differential, Automated (12/29/2020 10:19 AM EDT) Neutrophil % 63.2 % [facility] Neutrophil Absolute 4.73 1.70 - 6.10 x10(3)/[facility] LABORATORY Lymph % 25.2 % [facility] Lymphocytes Abs 1.9 0.9 - 3.2 x10(3)/[facility] Monocyte % 7.7 % [facility] Monocyte Abs 0.6 0.3 - 0.9 x10(3)/[facility]ORAT[facility] Eos % 2.5 % [facility] Eosinophils Abs 0.2 0.0 - 0.4 x10(3)/[facility]OR[facility] Basophil % 0.9 % [facility] Baso Absolute 0.1 0.0 - 0.1 x10(3)/[facility] LABORATORY Immature Gran % 0.50 % [facility] Comment: Immature granulocytes(IG's)percentage and absolute count will include metamyelocytes, myelocytes, and promyelocytes. Blood smears from CBCs yielding IG's will be scanned manually for concordance. If this scan disagrees with the automated IG or if promyelocytes are noted, a manual differential will be performed. Immature Gran Absolute 0.04 0.00 - 0.04 x10(3)/[facility] Blood 12/29/2020 10:1 9 AM EDT 12/29/2020 10:43 AM EDT Narrative Resulting Agency Comment Spec In Lab Royce WALTON HEMATOLOGY ORDERABLE S [facility] [place] [address] * (ABNORMAL) Hemogram (12/29/2020 10:19 AM EDT) White Blood Cell 7.5 4.0 - 9.5 x10(3)/[facility]ORATORY Red Blood Cell 4.53(L) 4.58 - 5.54 x10(6)/[facility]ORY Hemoglobin 14.4 13.7 - 16.5 g/dL [facility] Hematocrit 42.6 40.5 - 48.5 % [facility] Mean Cell Volume 94.0(H) 82.9 - 93.1 fL [facility] Mean Cell Hemoglobin 31.8 27.5 - 32.1 pg [facility] Mean Cell Hemoglobin Concentration 33.8 32.0 - 35.7 g/dL [facility] Platelet 205 145 - 357 x10(3)/[facility] LABORATORY RDW Standard Deviation 42.9 36.0 - 45.0 [facility] LABORATORY RDW coefficient of variation 12.4 11.4 - 13.8 % [facility] Mean Platelet Volume 10.0 7.6 - 12.9 [facility] LABORATORY NRBC% auto 0.0 % [facility] NRBC Absolute 0.000 0.000 - 0.000 x10(3)/[facility]ORATORY Blood 12/29/2020 10:1 9 AM EDT 12/29/2020 10:43 AM EDT Narrative Resulting Agency Comment Spec In Lab Royce WALTON HEMATOLOGY ORDERABLE S [facility] [place] [address] * (ABNORMAL) BMP w/fasting Glucose (12/29/2020 10:19 AM EDT) Glucose Fasting 252(H) 65 - 99 mg/dL [facility] Comment: ?Fasting* Glucose Interpretive [...] of Diabetes Mellitus, Position Statement from the [place] [employer]. ??Diabetes Care, Volume 33, Supplement 1, Mar 2009 Blood Urea Nitrogen 13 10 - 20 mg/dL [facility] Creatinine 1.09 0.80 - 1.50 mg/dL [facility] Sodium 138 135 - 145 mmol/L [facility] Potassium 4.2 3.5 - 5.0 mmol/L [facility] Comment: Please note: ??Patients with WBC >100,000 may have falsely elevated Potassium levels. ??For accurate Potassium quantification in these patients send serum separator tube (gold top) for subsequent determinations. ??Contact the Clinical Chemistry Laboratory if there are any questions. Chloride 101 98 - 107 mmol/L [facility] Carbon Dioxide 29 22 - 31 mmol/L [facility] Anion Gap 8 5 - 15 mmol/L [facility] Calcium 9.3 8.5 - 10.5 mg/dL [facility] Est Glomerular Filtration Rate 77 >=60 mL/min/1. 73 m?? [facility] Comment: This patient? s [...] Dia MD CHEMISTRY ORDERABLES Performing Organization Address [facility] de Phone Number [facility] [place] [address] * EKG 12 Lead (12/29/2020 10:18 AM EDT) Ventricular rate 79 BPM MUSE SYSTEM Atrial Rate 79 BPM MUSE SYSTEM P-R Interval 168 ms MUSE SYSTEM QRS Duration 88 ms MUSE SYSTEM Q-T Interval 374 ms MUSE SYSTEM QTC Calculated (Bezet) 428 ms MUSE SYSTEM Calculated P [place] 60 degrees MUSE SYSTEM Calculated R [place] 56 degrees MUSE SYSTEM Calculated T [place] 39 degrees MUSE SYSTEM INTERPRETATION Normal sinus rhythm Normal ECG When compared with ECG of 07-AUG-2019 08:57, T wave inversion no longer evident in Inferior leads Confirmed by MD Bobbi, Derrick ([id number]) on 12/29/2020 2:14:13 PM MUSE SYSTEM 12/29/2020 10:1 8 AM EDT 12/29/2020 2:14 PM EDT Snehal Dia MD ECG ORDERABLES Performing Organization Address [facility] Phone Number MUSE SYSTEM * (ABNORMAL) POCT Glucose (12/29/2020 9:50 AM EDT) Glucose, POC 262(H) 65 - 199 mg/dL [facility] Comment: Supplemental ranges: <140 mg/dL before meals <180 mg/dL all other times of the day Blood 12/29/2020 9:50 AM EDT 12/29/2020 9:50 AM EDT Snehal Dia MD POINT OF CARE TEST O RDERABLES [facility] [place] [address] documented in this encounter Visit Diagnoses Diagnosis Screening for cardiovascular condition Screening for other and unspecified cardiovascular conditions Coronary artery disease, unspecified vessel or lesion type, unspecified whether angina present, unspecified whether sitka or transplanted heart Chest discomfort Other chest pain Screening for cardiovascular condition Screening for other and unspecified cardiovascular conditions Coronary artery disease, unspecified vessel or lesion type, unspecified whether angina present, unspecified whether sitka or transplanted heart Chest discomfort Other chest [...] MD) documented in this encounter Care Teams Associate Pathologist Relationship Specialty Start Date End Date Robinson Vazquez, JOVANI [address] [facility] [address] [place] [address] PCP - General Family Medicine 12/11/20 10/03/22 documented as of this encounter
--- OUTSIDE RECORDS SUMMARY | 2023-11-07 02:29 | XMS_ITS | Encounter Summary ---
Author Organization [facility] [place] [address] Care Team Providers Care Radiosonde Operator Name Role Phone Robinson Vazquez APRN Primary Care Provider +1- [phone] Encounter Details Date Type Department Care Team (Late st Contact Info) Description 01/26/2021 Orders [place] [phone] Nathaniel Azevedo MD [facility] [place] [address] Dyspepsia Social History Tobacco Use Types Packs/Day [...] 10:00 AM EST Office [place] [phone] Tania Gates OD [facility] [place] [address] documented as of this encounter Visit Diagnoses Diagnosis Dyspepsia Dyspepsia and other specified disorders of function of stomach documented in this encounter Care Teams Radiosonde Operator Relationship Specialty Start Date End Date Robinson Vazquez, HYDROGEN PLANT OPERATOR [address] [place] [address] [place] [address] PCP - General Family Medicine 12/11/20 10/03/22 documented as of this encounter
--- OUTSIDE RECORDS SUMMARY | 2023-11-07 02:29 | XMS_ITS | Encounter Summary ---
Author Organization [facility] [place] [address] Care Team Providers Care Comparison Shopper Name Role Phone Robinson Vazquez APRN Primary Care Provider +1- [phone] Encounter Details Date Type Department Care Team (Latest Contact Info) Description 12/29/2020 3:07 PM EDT - 12/29/2020 11:59 PM EDT Hospital Encounter XRay at [address] [place] [address] Janki Jean MD [facility] [place] [address] Abdominal bloating Discharge Disposition: Home Social History [...] TEST BLOOD GLUCOSE TWICE A DAY 06/23/2020 kuepcsktbtj-djzbaywpw-h ilanter 100-62.5-25 mcg Disk with Device Inhale [...] 10:00 AM EST Office Visit [place] [address] Kody Tania, OD [facility] [place] [address] documented as of this encounter Procedures Procedure [...] who have questions please contact the health pediatric acute care unit nurse that requested your imaging first. ? Electronically signed by: Jazmin Reed MD, [facility] ([phone]), at 12/29/2020 3:32 PM Procedure Note Jazmin [...] patients who have questions please contactthe health pediatric acute care unit nurse that requested your imaging first. Electronically signed by: Jazmin Reed MD, [facility]([phone]), at 12/29/2020 3:32 PM Janki Jean MD IMG DX ORDERABLES documented in this encounter Visit Diagnoses Diagnosis Abdominal bloating Flatulence, eructation, and gas pain documented in this encounter Care Teams Comparison Shopper Relationship Specialty Start Date End Date Robinson Vazquez, RUBBER CURER [address] [place] [address] [place] [address] PCP - General Family Medicine 12/11/20 10/03/22 documented as of this encounter
--- OUTSIDE RECORDS SUMMARY | 2023-11-07 02:29 | XMS_ITS | Encounter Summary ---
[place] [address] Care Team Providers Care Signs And Displays Salesperson Name Role Phone Sae Marr MD Primary Care Provider Reason for Visit * Reason Onset Date Comments Follow-up 09/06/2019 tobacco treatmen t Encounter Details Date Type Department Care Team (Late st Contact Info) Description 09/06/2019 Telephone [place] [phone] Bryn Guevara, RN Follow-up (tobacco treatment) Social [...] Thank you . Bryn Guevara, MSN, RN-, [facility] Set Up Operator [facility] Pager #[phone] documented in this encounter Plan of Treatment Upcoming Encounters Date Type Department Care Team (Late st Contact Info) Description 03/20/2024 10:00 AM EST Office [place] [address] Tania Gates OD [facility] [place] [address] documented as of this encounter Visit Diagnoses Not on filedocumented in this encounter Care Teams Signs And Displays Salesperson Relationship Specialty Start Date End Date Sae Marr MD PCP - General General Internal Medicine 08/06/19 9/3 documented as of this encounter
--- OUTSIDE RECORDS SUMMARY | 2023-11-07 02:29 | XMS_ITS | Encounter Summary ---
[place] [address] Care Team Providers Care Powdered Metal Supervisor Name Role Phone Robinson Vazquez APRN Primary Care Provider [phone]- [phone] Encounter Details Date Type Department Care Team (Late st Contact Info) Description 12/29/2020 10:00 AM EDT - 12/29/2020 11:00 AM EDT Surgery [place] [id number] Snehal Walker MD [facility] [place] [address] CARDIAC CATHETERIZATION Social History Tobacco Use Types [...] Your Primary Care Provider: Sae Marr MD [phone] For questions regarding this document or issues relating to this hospitalization on the Medical Service, please contact your inpatient physician through the [facility] Airplane Gastank Liner Assembler . Issues afterhours and on weekends will [...] TEST BLOOD GLUCOSE TWICE A DAY 06/23/2020 htxiyvkqxvy-zccydtoaj-a ilanter 100-62.5-25 mcg Disk with Device Inhale [...] date: 12/29/2020 Attending Physician: Snehal Walker MD [facility] Interventional Cardiology Adult Pre-Procedure H&P Update: Mr Samy Patricio [id number] 1965 Chief Complaint: Chest discomfort HPI: Samy Patricio Jr. is a 55 y.o. male referred for cardiac catheterization By his administrative office specialist in the [place] [address] BR[address] [place] ([facility]) for evaluation of coronary artery anatomy and cardiac hemodynamics in the setting of progressive angina and prior CAD. His medical history is notable for coronary disease with nstemi 2017 and RCA/LCx intervention at [facility], then in 2019 STEMI with inferior [...] GERD/ Barretts DM SOCIAL Hx: Lives in [facility] Outpatient Medications Marked as Taking for the 12/29/20 encounter (Hospital Encounter) Medication Sig Dispense Refill ??? oqugnafmohj-cizzbnewv-wxydwwxr 100-62.5-25 mcg Disk with Device 1 puff [...] ISABELLE Jackson Interventional Cardiology 12/29/20 10:12 AM [facility] Pager: [phone] documented in this encounter Miscellaneous Notes * Brief Op Note - Snehal Walker MD - 12/29/2020 12:52 PM EDT Preliminary Cardiac Catheterization Procedure Note: Patient Name: Samy Patricio Jr. : [id number] MR#: [id number] Case Date: 12/29/2020 Airplane Gastank Liner Assembler: Surgeon(s) and Role: * Snehal Walker MD [...] 10:00 AM EST Office [place] [address] Tania Gates OD [facility] [place] [address] documented as of this encounter Procedures Procedure Name Priority Date/Time Associated Diagnosis Comments POCT GLUCOSE Routine 01/26/2021 7:22 AM EST CARDIAC CATHETERIZATION Routine 12/29/2020 12:50 PM EDT Screening for cardiovascular condition Coronary artery disease, unspecified vessel or lesion type, unspecified whether angina present, unspecified whether port lions or transplanted heart Chest discomfort POCT GLUCOSE [...] type, unspecified whether angina present, unspecified whether port lions or transplanted heart Chest discomfort POCT GLUCOSE Routine 12/29/2020 9:50 AM EDT documented in this encounter Results * POCT Glucose (01/26/2021 7:22 AM EST) [facility] Glucose, POC 143 65 - 199 mg/dL [facility] Comment: Supplemental ranges: <140 mg/dL before meals <180 mg/dL all other times of the day Blood 01/26/2021 7:22 AM EST 01/26/2021 7:22 AM EST Snehal Walker MD POINT OF CARE TEST O RDERABLES Performing Organization Address City/State/[facility] Co de Phone Number [facility] [place] [address] * CARDIAC CATHETERIZATION (12/29/2020 12:50 PM EDT) Anatomical Region Laterality Modality Other Narrative 12/29/2020 4:24 PM EDT ?[facility] ? Cardiac Catheterization/Intervention Report ? Patient Name: Samy Patricio Jr. S. ? Procedure Date: 12/29/2020 ? A #: [id number] ? Primary Physician: Snehal Walker ? Case #: [id number] ? File Name: [id number] ? Catheterization Order Number: [id number] ? [facility] ? Final Report [place], [place] ? Patient Name: ? Samy Jr. S. Schartner ?ID#: ?[id number] ? : ?1965 ? Procedure Date: ? December 29, 2020 ? Case #: ? [id number] ? Room: ? 1 ? Case Physician: [...] was designated as ?ASA Class III. The [facility] clinical frailty scale is 4: Vulnerable. ? Diagnostic Tests: ?Electrocardiography: ? EKG was assessed by ECG. EKG was Abnormal. EKG showed ST Deviation ? >= 0.5 mm. ?Medications Prior to Procedure: ? Aspirin, Beta Alejandra, Long Acting Nitrate and Statin. ? Indications for Diagnostic Cath: ?The priority of the diagnostic procedure was Elective. The indication for ?the labor relations manager visit is worsening angina. Chest pain symptom [...] Procedure Note Snehal Walker MD - 12/29/2020 [facility] Cardiac Catheterization/Intervention Report Patient Name: Samy Patricio Jr. Procedure Date: 12/29/2020 A #: [id number] Primary Physician: Snehal Walker Case #: [id number] File Name: [id number] Catheterization Order Number: [id number] [facility] FinalReport [place], [place] Patient Name: Samy Patricio ID#:[id number] :1965 Procedure Date: December 29, 2020 Case [...] patient wasdesignated as ASA Class III. The [facility] clinical frailty scale is 4: Vulnerable. Diagnostic Tests: Electrocardiography: EKG was assessed by ECG. EKG was Abnormal. EKG showed STDeviation >= 0.5 mm. Medications Prior to Procedure: Aspirin, Beta Alejandra, Long Acting Nitrate and Statin. Indications for Diagnostic Cath: The priority of the diagnostic procedure was Elective. Theindication for the labor relations manager visit is worsening angina. Chest pain symptomassessment [...] units of heparin were administered. A total ob169ve of Omnipaque were opened, 75cc of Omnipaque were administered gct13rf of Omnipaque were wasted. Radiation: Fluoro time [...] * POCT Glucose (12/29/2020 12:32 PM EDT) [facility] Glucose, POC 152 65 - 199 mg/dL [facility] Comment: Supplemental ranges: <140 mg/dL before meals <180 mg/dL all other times of the day Blood 12/29/2020 12:3 2 PM EDT 12/29/2020 12:32 PM EDT Snehal Walker MD POINT OF CARE TEST O RDERABLES Performing Organization Address City/[facility]/ZIP Co de Phone Number [facility] [place] [address] * Differential, Automated (12/29/2020 10:19 AM EDT) Neutrophil % 63.2 % [facility] Neutrophil Absolute 4.73 1.70 - 6.10 x10(3)/[facility] Lymph % 25.2 % [facility] Lymphocytes Abs 1.9 0.9 - 3.2 x10(3)/[facility] Monocyte % 7.7 % [facility] Monocyte Abs 0.6 0.3 - 0.9 x10(3)/[facility] Eos % 2.5 % [facility] Eosinophils Abs 0.2 0.0 - 0.4 x10(3)/[facility] Basophil % 0.9 % [facility] Baso Absolute 0.1 0.0 - 0.1 x10(3)/[facility] Immature Gran % 0.50 % [facility] Comment: Immature granulocytes(IG's)percentage and absolute count will include metamyelocytes, myelocytes, and promyelocytes. Blood smears from CBCs yielding IG's will be scanned manually for concordance. If this scan disagrees with the automated IG or if promyelocytes are noted, a manual differential will be performed. Immature Gran Absolute 0.04 0.00 - 0.04 x10(3)/[facility] Blood 12/29/2020 10:1 9 AM EDT 12/29/2020 10:43 AM EDT Narrative Resulting Agency Comment Spec In Lab Royce [facility] ORDERABLE S Performing Organization Address City/[facility]/ZIP Co de Phone Number [facility] [place] [address] * (ABNORMAL) Hemogram (12/29/2020 10:19 AM EDT) White Blood Cell 7.5 4.0 - 9.5 x10(3)/ L [facility] Red Blood Cell 4.53(L) 4.58 - 5.54 x10(6)/ L [facility] Hemoglobin 14.4 13.7 - 16.5 [...] HOSPITAL LABORATORY Platelet 205 145 - 357 x10(3)/[facility] LABORATORY RDW Standard Deviation 42.9 36.0 - 45.0 [facility] RDW coefficient of variation 12.4 11.4 - 13.8 % [facility] Mean Platelet Volume 10.0 7.6 - 12.9 [facility] NRBC% auto 0.0 % [facility] NRBC Absolute 0.000 0.000 - 0.000 x10(3)/[facility] Blood 12/29/2020 10:1 9 AM EDT 12/29/2020 10:43 AM EDT Narrative Resulting Agency Comment Spec In Lab Royce [facility] ORDERABLE S [facility] [place] [address] * (ABNORMAL) BMP w/fasting Glucose (12/29/2020 10:19 [...] of Diabetes Mellitus, Position Statement from the [place] [employer]. ??Diabetes Care, Volume 33, Supplement [...] Walker MD CHEMISTRY ORDERABLES Performing Organization Address [facility]/ZIP Co de Phone Number [facility] [place] [address] * EKG 12 Lead (12/29/2020 10:18 AM EDT) Ventricular rate 79 BPM MUSE SYSTEM Atrial Rate 79 BPM MUSE SYSTEM P-R Interval 168 ms MUSE SYSTEM QRS Duration 88 ms MUSE SYSTEM Q-T Interval 374 ms MUSE SYSTEM QTC Calculated (Bezet) 428 ms MUSE SYSTEM Calculated P [place] 60 degrees MUSE SYSTEM Calculated R [place] 56 degrees MUSE SYSTEM Calculated T [place] 39 degrees MUSE SYSTEM INTERPRETATION Normal sinus rhythm Normal ECG When compared with ECG of 07-AUG-2019 08:57, T wave inversion no longer evident in Inferior leads Confirmed by MD Bobbi, Derrick ([id number]) on 12/29/2020 2:14:13 PM MUSE SYSTEM 12/29/2020 10:1 8 AM EDT 12/29/2020 2:14 PM EDT Snehal Walker MD ECG ORDERABLES Performing Organization Address [facility] de Phone Number MUSE SYSTEM * (ABNORMAL) POCT Glucose (12/29/2020 9:50 AM EDT) Glucose, POC 262(H) 65 - 199 mg/dL [facility] Comment: Supplemental ranges: <140 mg/dL before meals <180 mg/dL all other times of the day Blood 12/29/2020 9:50 AM EDT 12/29/2020 9:50 AM EDT Snehal Walker MD POINT OF CARE TEST O RDERABLES Performing Organization Address [facility]/ZIP Co de Phone Number [facility] [place] [address] documented in this encounter Visit Diagnoses Diagnosis Screening for cardiovascular condition Screening for other and unspecified cardiovascular conditions Coronary artery disease, unspecified vessel or lesion type, unspecified whether angina present, unspecified whether port lions or transplanted heart Chest discomfort Other chest pain Screening for cardiovascular condition Screening for other and unspecified cardiovascular conditions Coronary artery disease, unspecified vessel or lesion type, unspecified whether angina present, unspecified whether port lions or transplanted heart Chest discomfort Other chest [...] MD) documented in this encounter Care Teams Powdered Metal Supervisor Relationship Specialty Start Date End Date Robinson Vazquez, DAMPPROOFER [address] [place] [address] PCP - General Family Medicine 12/11/20 10/03/22 documented as of this encounter
--- OUTSIDE RECORDS SUMMARY | 2023-11-07 02:29 | XMS_ITS | Encounter Summary ---
[place] [address] Care Team Providers Care Electrical Maintenance Supervisor Name Role Phone Robinson Vazquez APRN Primary Care Provider [phone] Reason for Visit * Reason Onset Date Comments Reminder Appointment 12/28/2020 Encounter Details Date Type Department Care Team (Late st Contact Info) Description 12/28/2020 Telephone [place] [phone] Gerda Orellana CCMA Reminder Appointment Social History [...] 10:00 AM EST Office [place] [address] Tania Gates, [facility] [place] [address] documented as of this encounter Visit Diagnoses Not on filedocumented in this encounter Care Teams Electrical Maintenance Supervisor Relationship Specialty Start Date End Date Robinson Vazquez, JOVANI [address] [place] [address] PCP - General Family Medicine 12/11/20 10/03/22 documented as of this encounter
--- OUTSIDE RECORDS SUMMARY | 2023-11-07 02:30 | XMS_ITS | Encounter Summary ---
Author Organization [facility] [address] Care Team Providers Care Rn Admission Name Role Phone Unavailable Primary Care Provider Unavailabl e Encounter Details Date Type Department Care Team (Latest Contact Info) Description 09/27/2018 7:01 AM EDT - 09/27/2018 8:45 AM EDT Hospital Encounter [place] [address] Luc Hdz MD [facility] [place] [address] Discharge Disposition: Home Social History Tobacco Use [...] - 09/27/2018 8:16 AM EDT Please call [phone] before 8pm Mon-Fri with problems, questions or concerns. If you call after 8pm or on weekends, call the Hospital at [phone] and ask to speak to the Extrusion Press Supervisor adapted physical education teacher and the ultrasonic seaming machine operator will contact that person for you. * Attachments The following attachments cannot be sent through Care Everywhere. * EGD (Upper Endoscopy): Post-op (Ukrainian) documented in this encounter Medications at Time [...] 10:00 AM EST Office [place] [address] Tania Gates OD [facility] [place] [address] documented as of this encounter Procedures Procedure [...] AM EDT 09/27/2018 8:12 AM EDT Narrative [facility] - 09/27/2018 8:12 AM EDT Specimen requisition ordered. ??Separate Pathology report to follow Luc Hdz MD PATHOLOGY/CYTOLOGY O SAEID Performing Organization Address [facility] Co de Phone Number [facility] [place] [address] * Specimen to Pathology (09/27/2018 8:12 AM EDT) AP Specimen 09/27/2018 8:12 AM EDT 09/27/2018 8:12 AM EDT Narrative [facility] - 09/27/2018 8:12 AM EDT Specimen requisition ordered. ??Separate Pathology report to follow Luc Hdz MD PATHOLOGY/CYTOLOGY O SAEID Performing Organization Address [facility] [place] [address] * Surgical Pathology Report (09/27/2018 8:05 AM EDT) Final Diagnosis [id number] ? Location: ; [facility]; The signing pathologist has (i) examined the relevant preparation(s) for the specimen(s) and (ii) rendered or confirmed the diagnosis(es). . ?Surgical Pathology DIAGNOSIS A - Duodenum, biopsy: - ??Duodenal mucosa, negative for diagnostic abnormality ??. B - Z line, biopsy: - ??Diaz's esophagus, negative for dysplasia. CR-PX Electronically signed by: ??Rc Mathews MD Verified: ??10/01/2018 ?Pathologist Performed at: ??-[facility] Dept. of Pathology, [place], [place] CLINICAL INFORMATION Specimen Submitted: A - [...] labeled B1-B2. ??ejr 10/01/2018 3:36 PM EDT [facility] GI Biopsy 09/27/2018 8:05 AM EDT 09/27/2018 8:05 AM EDT GI Biopsy 09/27/2018 8:05 AM EDT 09/27/2018 8:05 AM EDT Luc Hdz MD PATHOLOGY/CYTOLOGY O RDLENARD [facility] [place] [address] * POCT Glucose (09/27/2018 7:49 AM EDT) Glucose, POC 124 65 - 199 mg/dL [facility] Comment: Supplemental ranges: <140 mg/dL before meals <180 mg/dL all other times of the day Blood specimen (specimen) 09/27/2018 7:49 AM EDT 09/27/2018 7:49 AM EDT Luc Hdz MD POINT OF CARE TEST O RDLENARD Performing Organization Address City/[facility] Co de Phone Number [facility] [place] [address] * UPPER GI ENDOSCOPY (09/27/2018 7:40 AM EDT) Pathologist [facility] UPPER GI ENDOSCOPY [facility] Endoscopy Procedure Date: 09/27/2018 7:40 AM ? Patient Name: Samy Patricio ? Date of : 1965 ? Age: 52 ? Order #: [id number] ? Instrument Name: [id number] ? Procedure: ? Upper GI endoscopy Indications: [...] 7:40 AM PROVATION 09/27/2018 7:40 AM EDT bAi Lazaro SPINE SUPERVISOR GENERAL SURGICAL ORDERABLES PROVATION documented in this [...]
--- OUTSIDE RECORDS SUMMARY | 2023-11-07 02:30 | XMS_ITS | Encounter Summary ---
[place] [address] Care Team Providers Care Associate Account Director Name Role Phone Altaf Hoover MD Primary Care Provider [phone] Encounter Details Date Type Department Care Team (Late st Contact Info) Description 04/26/2011 9:30 AM EST - 04/26/2011 10:30 AM EST [place] [address] Kirsten Damon MD [facility] [place] [address] EGD WITH BIOPSY (WRVU 2.39) Social History [...] not get better as expected. Monday-Monday Clinic [phone] 8a-5p Same Day Endo [phone] 7a-8p Otherwise contact [phone] and ask to speak to the rod mill operator battalion chief Follow-up care is a [place] part of [...] 10:00 AM EST Office [place] [address] Tania Gates OD [facility] [place] [address] documented as of this encounter Procedures Procedure [...] 11:25 AM EST) Surgical Pathology Report ? [facility] ? Provider: ?? KIRSTEN DAMON ?? Pt. Name: ?? GIDEON SMITH, SAMY Oreilly ? Acc #: ?[id number] ?Pt. ? Col Date: ?? 04/26/2011 ? [...] Soft, figueroa tissues. ? Sections/Processing: ??(T2) ? [facility] ? Provider: ?? KIRSTEN DAMON ?? Pt. Name: ?? SAMY PATRICIO JR ? Acc #: ?[id number] ?Pt. ? Col Date: ?? 04/26/2011 ? [...] History/Diagnosis: ? Multiple erosions in duodenum. [facility] 04/26/2011 11:2 5 AM EST Kirsten Damon MD PATHOLOGY/CYTOLOGY O SAEID Performing Organization Address [facility] de Phone Number [facility] * Specimen to Pathology (surgical or derm) (04/26/2011 9:53 AM EST) AP Specimen 04/26/2011 9:53 AM EST 04/26/2011 9:53 AM EST Narrative [facility] - 04/26/2011 9:53 AM EST Specimen requisition ordered. ??Separate Pathology report to follow Kirsten Damon MD PATHOLOGY/CYTOLOGY O SAEID Performing Organization Address [facility] Co de Phone Number [facility] * Specimen to Pathology (surgical or derm) (04/26/2011 9:53 AM EST) AP Specimen 04/26/2011 9:53 AM EST 04/26/2011 9:53 AM EST Narrative [facility] - 04/26/2011 9:53 AM EST Specimen requisition ordered. ??Separate Pathology report to follow Kirsten Damon MD PATHOLOGY/CYTOLOGY O SAEID Performing Organization Address [facility] Co de Phone Number [facility] * UPPER GI ENDOSCOPY (04/26/2011 8:42 AM EST) UPPER GI ENDOSCOPY [facility] Endoscopy ___ Patient Name: Samy Patricio ? Procedure Date: 04/26/2011 8:42 AM ? Date of : 1965 ? Age: 45 ? Order #: [id number] ? ___ Procedure: ? Upper GI endoscopy Indications: ? Heartburn, Epigastric abdominal pain Providers: ? Kirsten Damon MD, Masha ? GUILLAUME Johnson, Aiden Iyer, ? Air Pollution Specialist Referring MD: ?Altaf Hoover MD Medicines: ? [...] POC 163 60 - 199 mg/dL [facility] Comment: Supplemental ranges: <110 mg/dL before meals <200 mg/dL all other times of the day Blood specimen (specimen) 04/26/2011 8:29 AM EST 04/26/2011 8:29 AM EST Kirsten Damon MD POINT OF CARE TEST O RDERABLES Performing Organization Address [facility] Co de Phone Number [facility] documented in this encounter Visit Diagnoses [...] RN) documented in this encounter Care Teams Associate Account Director Relationship Specialty Start Date End Date Altaf Hoover MD [address] [place] [address] PCP - General 04/19/11 09/18/17 documented as of this encounter
--- OUTSIDE RECORDS SUMMARY | 2023-11-07 02:30 | XMS_ITS | Encounter Summary ---
[place] [address] Care Team Providers Care Pacs Specialist Name Role Phone Unavailable Primary Care Provider Unavailabl e Encounter Details Date Type Department Care Team (Late st Contact Info) Description 07/05/2018 Telephone Psychiatry [place] [address] Misty Pak Social History Tobacco Use Types [...] facilities in search for an involuntary bed: [facility]- referral received, #17 on the list. [facility]- Referral faxed, no beds available at this time. [facility]- Referral faxed, no beds available at this time. [facility]- Referral faxed, no beds available at this time. documented in this encounter Plan of Treatment Upcoming Encounters Date Type Department Care Team (Late st Contact Info) Description 03/20/2024 10:00 AM EST Office [place] [address] Tania Gates, [facility] [place] [address] documented as of this encounter Visit Diagnoses Not on filedocumented in this encounter
--- OUTSIDE RECORDS SUMMARY | 2023-11-07 02:30 | XMS_ITS | Encounter Summary ---
[place] [address] Care Team Providers Care Laminator Name Role Phone Altaf Hoover MD Primary Care Provider [phone] Encounter Details Date Type Department Care Team (Latest Contact Info) Description 2015 - 2015 11:59 PM EDT Hospital Encounter [place] [phone] Pop Xiao MD [facility] [place] [address] Pain Discharge Disposition: Home Social History Tobacco [...] 10:00 AM EST [place] [address] Tania Gates, [facility] [place] [address] documented as of this encounter Procedures Procedure Name Priority Date/Time Associated Diagnosis Comments FILM LIBRARY STORAGE ONLY DX SPINE Routine 2015 12:00 AM EDT Pain documented in this encounter Results * Film Library- Storage Only DX Spine (2015 12:00 AM EDT) Narrative [facility] - 02/06/2017 1:34 PM EST This exam is for storage only and is auto-finalizing. Pop Xiao MD IMG FILM LIBRARY ORD ERABLES [place], [place] documented in this encounter Visit Diagnoses Diagnosis Pain Generalized pain documented in this encounter Care Teams Laminator Relationship Specialty Start Date End Date Altaf Hoover MD [address] [place] [address] PCP - General 04/19/11 09/18/17 documented as of this encounter
--- OUTSIDE RECORDS SUMMARY | 2023-11-07 02:30 | XMS_ITS | Encounter Summary ---
Author [place] [address] Care Team Providers Care Drill Operator Name Role Phone Sae Marr MD Primary Care Provider [phone] Encounter Details Date Type Department Care Team (Late st Contact Info) Description 08/06/2019 External [place] [address] Social History Tobacco Use Types Packs/Day Years [...] 10:00 AM EST Office [place] [address] Tania Gates OD [facility] [place] [address] documented as of this encounter Procedures Procedure Name Priority Date/Time Associated Diagnosis Comments ECG SCAN Routine 08/06/2019 documented in this encounter Results * Scan Doc: ECG (08/06/2019) Historical Provider MD KUMAR MGR SCAN EX T ORDR/RSLT documented in this encounter Visit Diagnoses Not on filedocumented in this encounter Care Teams Drill Operator Relationship Specialty Start Date End Date Sae Marr MD PCP - General General Internal Medicine 08/06/19 9/3 documented as of this encounter
--- OUTSIDE RECORDS SUMMARY | 2023-11-07 02:30 | XMS_ITS | Encounter Summary ---
[place] [address] Care Team Providers Care Studio Model Name Role Phone Unavailable Primary Care Provider Unavailabl e Encounter Details Date Type Department Care Team (Late st Contact Info) Description 07/02/2018 Telephone [place] [address] Tamica Perera Social History Tobacco Use Types [...] 07/02/2018 10:56 AM EDT Samy Patricio Jr. [id number] Diagnosis: Diaz's esopagus surveillance dysphagia 1. Have you ever had a colonoscopy before? [x] YES [] NO If Yes, Date of Last EGD: 2016 per patient . [facility] 2011 If yes, did you have any problems with the procedure? [] YES [x] NO Explain: What type of sedation was used: IV sedation 2. Do you take any Blood Thinners? [x] YES [] NO If Yes, type: Clopidogrel 3. Do you have a Pacemaker or Defibrillator device? [] YES [x] NO If Yes send inwufoo message to [employer] ENDO DEVICE CHECK 4. Are you a [...] NO 11. You must have a responsible democrat stay at the facility during your procedure [...] 10:00 AM EST Office Visit Ophthalmology at [facility] [place] [address] [facility] [place] [address] documented as of this encounter Visit Diagnoses Not on filedocumented in this encounter
--- OUTSIDE RECORDS SUMMARY | 2023-11-07 02:30 | XMS_ITS | Encounter Summary ---
[place] [address] Care Team Providers Care Bean Roaster Name Role Phone Altaf Hoover MD Primary Care Provider [phone] Reason for Visit * Reason Comments Dizziness Shortness of Breath Encounter Details Date Type Department Care Team (Late st Contact Info) Description 04/03/2017 10:58 PM EST - 04/04/2017 4:14 AM [place] [address] Tiffanie Espino MD [facility] [place] [address] SOB (shortness of breath); Dizziness and giddiness; Dyspnea, unspecified type; Nausea; Nonintractable headache, unspecified chronicity pattern, unspecified headache type; Cough; Generalized hyperhidrosis; Type 2 diabetes mellitus without complication, without long-term current use of insulin; Cigarette smoker; Encounter for long-term (current) drug use; assisted (current) use of oral hypoglycemic drugs; Encounter [...] Emergency Department with shortness of breath. 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 Johnson at 0005. [...] Not Detected Not Detected Resp PCR Source ODD JOB WORKER Swab ED Course Newton Mari's Documentation Value [...] lack of diagnosis and disposition at 0400. Manager Vehicle explained that we hadbeen awaiting return of [...] noted otherwise below. ED Course * Philip Johnosn MD - 04/03/2017 11:20 PM EST ED [...] No Pronator Drift. No dysmetria, dysdiadochokinesia; negative [id number]. Normal sensation. 5/5 strength in upper, lower [...] Philip Johnson MD PGY1, Internal Medicine Pager #[phone] Philip Johnson MD Resident 04/04/17 0058 Associated [...] 10:00 AM EST Office [place] [address] Tania Gates OD [facility] [address] documented as of this encounter Procedures Procedure Name Priority Date/Time Associated Diagnosis Comments RAPID INFLUENZA A/B AND RSV PCR ([facility]D/[facility]) STAT 04/04/2017 2:[address] CHEST [...] Influenza A PCR Not Detected Not Detected [facility] Influenza B PCR Not Detected Not Detected [facility] RSV PCR Not Detected Not Detected [facility] Resp PCR Source ODD JOB WORKER Swab [facility] Nasopharyngeal swab (specimen) 04/04/2017 2:45 AM EST 04/04/2017 3:14 AM EST Narrative Resulting Agency Comment Spec In Lab Tiffanie Espino MD MICROBIOLOGY - GENER AL ORDERABLES [facility] [place] [address] * CTA Chest for Pulmonary Embolus w [...] structures: No suspicious osseous lesions. Procedure Note Meagn London MD - 04/04/2017 EXAMINATION: CTA chest [...] (Bezet) 440 ms MUSE SYSTEM Calculated P [place] 46 degrees MUSE SYSTEM Calculated R [place] 56 degrees MUSE SYSTEM Calculated T [place] 41 degrees MUSE SYSTEM INTERPRETATION Normal sinus rhythm Normal ECG When compared with ECG of 13-JUL-2006 17:13, No significant change was found Confirmed by MD Yaima, Timothy Collins ([id number]) on 04/04/2017 5:28:12 PM MUSE SYSTEM 04/04/2017 12:0 4 AM EST 04/04/2017 5:28 PM EST Tiffanie Espino MD ECG ORDERABLES Performing Organization Address City/[facility]/ZIP Co de Phone Number MUSE SYSTEM * Gold Tube HOLD (04/04/2017 12:02 AM EST) Pathologist [facility] Gold Hold Sample in lab. [facility] Blood specimen (specimen) Venous Draw / Unknown 04/04/2017 12:02 AM EST 04/04/2017 12:10 AM EST Tiffanie Espino MD CHEMISTRY ORDERABLES [facility] [place] [address] * Differential, Automated (04/04/2017 12:02 AM EST) Neutrophil % 56.6 % [facility] Neutrophil Absolute 4.20 1.70 - 6.10 x10(3)/[facility] Lymph % 32.5 % [facility] Lymphocytes Abs 2.4 0.9 - 3.2 x10(3)/[facility] Monocyte % 7.4 % [facility] Monocyte Abs 0.6 0.3 - 0.9 x10(3)/[facility] Eos % 2.3 % [facility] Eosinophils Abs 0.2 0.0 - 0.4 x10(3)/[facility] Basophil % 0.7 % [facility] Baso Absolute 0.0 0.0 - 0.1 x10(3)/[facility] Immature Gran % 0.50 % [facility] Comment: Immature granulocytes(IG's)percentage and absolute count will include metamyelocytes, myelocytes, and promyelocytes. Blood smears from CBCs yielding IG's will be scanned manually for concordance. If this scan disagrees with the automated IG or if promyelocytes are noted, a manual differential will be performed. Immature Gran Absolute 0.04 0.00 - 0.04 x10(3)/[facility] Blood specimen (specimen) 04/04/2017 12:02 AM EST 04/04/2017 12:09 AM EST Narrative Resulting Agency Comment Spec In Lab Tiffanie Espino MD HEMATOLOGY ORDERABLE S Performing Organization Address City/State/[facility] Co de Phone Number [facility] [place] [address] * (ABNORMAL) Hemogram (04/04/2017 12:02 AM EST) White Blood Cell 7.4 4.0 - 9.5 x10(3)/ L [facility] Red Blood Cell 4.67 4.58 - 5.54 x10(6)/[facility] Hemoglobin 15.8 13.7 - 16.5 gm/dL [facility] Hematocrit 42.2 40.5 - 48.5 % [facility] Mean Cell Volume 90.4 82.9 - 93.1 fL [facility] Mean Cell Hemoglobin 33.8(H) 27.5 - 32.1 pg [facility] Mean Cell Hemoglobin Concentration 37.4(H) 32.0 - 35.7 gm/dL [facility] Platelet 212 145 - 357 x10(3)/ L [facility] RDW Standard Deviation 41.2 36.0 - 45.0 [facility] RDW coefficient of variation 12.5 11.4 - 13.8 % [facility] Mean Platelet Volume 9.9 7.6 - 12.9 [facility] NRBC% auto 0.0 % [facility] NRBC Absolute 0.000 0.000 - 0.000 x10(3)/mc L [facility] Blood specimen (specimen) 04/04/2017 12:02 AM EST 04/04/2017 12:09 AM EST Narrative Resulting Agency Comment Spec In Lab Tiffanie Espino MD HEMATOLOGY ORDERABLE S Performing Organization Address [facility] Co de Phone Number [facility] [place] [address] * (ABNORMAL) D-Dimer, Quantitative (04/04/2017 12:02 AM EST) D-Dimer 1,112(H) 0 - 500 FEU ng/ml [facility] Comment: The D-Dimer assay is used [...] MD HEMATOLOGY ORDERABLE S Performing Organization Address City/[facility]/ZIP Co de Phone Number [facility] [place] [address] * pro-Brain Natriuretic Peptide (04/04/2017 12:02 AM EST) NT-proBNP 26 <=125 pg/mL [facility] Blood specimen (specimen) 04/04/2017 12:02 AM EST 04/04/2017 12:09 AM EST Narrative Resulting Agency Comment Spec In Lab Tiffanie Espino MD CHEMISTRY ORDERABLES Performing Organization Address [facility] Co de Phone Number [facility] [place] [address] * Troponin T (04/04/2017 12:02 AM EST) Troponin-T <0.01 0.00 - 0.00 ng/mL [facility] Comment: Specimen ultracentrifuged due to gross [...] ischemia ?? New or presumed new significant OR-sqloytq-R wave (ST-T) changes or new left bundle [...] additional sample may be indicated. Reference: [employer] Definition of Myocardial Infarction. Journal of the [place] [employer] 2012;60:1581-98 Blood specimen (specimen) 04/04/2017 12:02 AM EST 04/04/2017 12:09 AM EST Narrative Resulting Agency Comment Spec In Lab Tiffanie Espino MD CHEMISTRY ORDERABLES Performing Organization Address [facility] Co de Phone Number [facility] [place] [address] * (ABNORMAL) Basic Metabolic Panel (non-fasting) (04/04/2017 12:02 AM EST) Glucose 265(H) 65 - 199 mg/dL [facility] Comment:Diabetes: >=200 mg/d L plus symptoms Blood Urea Nitrogen 15 10 - 20 mg/dL [facility] Creatinine 1.45 0.80 - 1.50 mg/dL [facility] Comment:Specimen ultracentri fuged due to gross lipemia Sodium 139 135 - 145 mmol/L [facility] Comment:Specimen ultracentri fuged due to gross lipemia Potassium 5.2(H) 3.5 - 5.0 mmol/L [facility] Comment: Specimen ultracentrifuged due to gross lipemia Please note: ??Patients with WBC >100,000 may have falsely elevated Potassium levels. ??For accurate Potassium quantification in these patients send serum separator tube (gold top) for subsequent determinations. ??Contact the Clinical Chemistry Laboratory if there are any questions. Chloride 98 98 - 107 mmol/L [facility] Comment:Specimen ultracentri fuged due to gross lipemia Carbon Dioxide 28 22 - 31 mmol/L [facility] Anion Gap 13 5 - 15 mmol/L [facility] Calcium 8.5 8.5 - 10.5 mg/dL [facility] Est Glomerular Filtration Rate 52(L) >=60 [facility] Comment: The reported eGFR should be multiplied by 1.2 for patients. The MDRD is not an appropriate measure of renal function for patients with body mass extremes or in patients with acute kidney failure. http://[employer]StormMQ/DHnkdep http://[employer]orm[employer]/DHMCnkf Blood specimen (specimen) 04/04/2017 12:02 AM EST 04/04/2017 12:09 AM EST Narrative Resulting Agency Comment Spec In Lab Tiffanie Espino MD CHEMISTRY ORDERABLES [facility] [place] [address] * (ABNORMAL) POCT Glucose (04/04/2017 12:00 AM EST) Glucose, POC 258(H) 65 - 199 mg/dL [facility] Comment: Supplemental ranges: <140 mg/dL before meals <180 mg/dL all other times of the day Blood specimen (specimen) 04/04/2017 04/04/2017 12:00 AM EST Tiffanie Espino MD POINT OF CARE TEST O RDERABLES [facility] [address] documented in this encounter Visit Diagnoses Diagnosis [...] for long-term (current) use of other medications long term care social worker (current) use of oral hypoglycemic drugs Encounter [...] NRP) documented in this encounter Care Teams Bean Roaster Relationship Specialty Start Date End Date Altaf Hoover MD [address] [facility] [address] [place] [address] PCP - General 04/19/11 09/18/17 documented as of this encounter
--- OUTSIDE RECORDS SUMMARY | 2023-11-07 02:30 | XMS_ITS | Encounter Summary ---
Author Organization [facility] [place] [address] Care Team Providers Care Weaving Supervisor Name Role Phone Sae Marr MD Primary Care Provider [phone] Encounter Details Date Type Department Care Team (Late st Contact Info) Description 08/06/2019 12:35 AM EDT Ancillary Procedure [place] [address] Dallas Gutierrez MD [address] [place] [id number] Social History Tobacco Use Types Packs/Day Years [...] 10:00 AM EST Office Visit [place] [address] Tania Gates OD [facility] DR OPHTHALMOLOGY [place], [place] [id number] documented as of this encounter Procedures Procedure [...] Gutierrez MD IMG FILM LIBRARY ORD ERABLES [place], [place] documented in this encounter Visit Diagnoses Not on filedocumented in this encounter Care Teams Weaving Supervisor Relationship Specialty Start Date End Date Sae Marr MD PCP - General General Internal Medicine 08/06/19/ documented as of this encounter
--- OUTSIDE RECORDS SUMMARY | 2023-11-07 02:30 | XMS_ITS | Encounter Summary ---
[place] [address] Care Team Providers Care Big Data Developer Name Role Phone Unavailable Primary Care Provider Unavailabl e Reason for Visit * Reason Comments Depression Encounter Details Date Type Department Care Team (Late st Contact Info) Description 07/04/2018 8:16 PM EDT - 07/05/2018 2:03 PM [place]T [place] [address] Aiden Trevino MD [facility] [place] [address] Mihai Crain MD [facility] [place] [address] Emotional crisis Discharge Disposition: Home Social History [...] be a conflict of interest. The website www.psychologyYee Care is a good resource for finding a couples therapist in your area. Refrain from alcohol use. Referral options for outpatient psychiatric treatment: Additional Instructions and Resources: Emergency contacts for worsened symptoms or safety concerns Go to your nearest emergency room, or call 911 Call the [facility] crisis line at [phone]. Helpful websites for additional information: National Institutes of Mental Health (NIMH) http://www.nimh.nih.gov [employer] http://www.healthyminds.org/letstalkfacts.cfm National [place] on Mental Illness www.jacques.org or www.namivt.org or [...] to do; reported speakingwith ED MD, this technical publications writer spoke with Dr. Crain who did [...] himself. 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 Security notified, patient searched by security [...] He told his he was driving to [facility] to talk to someone. Pt called his therapist telling him he was upset about his 's disclosure and was driving to [facility] for help. He states he had been hoping his therapist would offer to see him rather than coming to [facility] but that didn't happen so he drove here. This technical publications writer spoke with his therapist Luis Ewing [phone] who states pt did call him last evening to tell him about his 's disclosure, that he was having what amounts to passive SI. Luis confirms that pt told him he had been drinking and had a gun in his truck but that he was NOT going to use it and stated he was going to drive to [facility] because he wanted help, to talk with [...] scheduled appointment tomorrow at 9am . This technical publications writer met with his privately. She states [...] her he was going to drive to [facility] to talk with someone as he felt [...] Pt's son was with pt when this technical publications writer met with him. He confirms he has removed and secured pt's guns. When this technical publications writer asked him about any concerns he [...] Protective Factors: family and community support, protective cultural/spiritism beliefs and future orientation ?? Access to [...] and normal rhythm ?? Language: fluent in austrian, non profane ?? Mood: frustrated, ?? Affect: [...] functioning ?? Insight: fair ?? Judgment: fair [place] Suicide Risk Scale - Initial Assessment: Wish [...] within the past 3 months?: No (07/04/182039) [place] Suicide Risk Scale - Daily Assessment (most [...] INR Thyroid: No results found for: TSH, [id number], TT4 Lipids and HgbA1C: No results found for: CHLPL, HDL, CHOLHDL, LDLCHOL, LDLDIRECT, TRIG No results found for: HA1C Vit Lvls: No results found for: [id number], SFOLATE UA: No results found for: GLUCOSEU, [...] and intent to nursing staff completing the [place] Suicide rating scale but denied it was [...] Chief Complaint: 52 y.o. Male presents to [facility] Emergency Department with suicidal ideations and reported [...] Protective Factors: family and community support, protective cultural/spiritism beliefs and future orientation Access to Firearms: [...] WITH BIOPSY performed by KIRSTEN DAMON at [facility] Family Medical/Psychiatric History: Unclear at this time Social History: Patient is retired. Currently . 2 adult kids. Has a brother who works in the half-way system. Currently retired/disabled, but helps his with [...] pressured and profane ?? Language: fluent in austrian ?? Mood: fine ?? Affect: irritable and [...] INR Thyroid: No results found for: TSH, [id number], TT4 Lipids and HgbA1C: No results found for: CHLPL, HDL, CHOLHDL, LDLCHOL, LDLDIRECT, TRIG No results found for: HA1C Vit Lvls: No results found for: [id number], SFOLATE UA: No results found for: GLUCOSEU, [...] a 52 y.o. Male who presents to [facility] with suicidal ideations with possible plan to [...] AM EST Office [place] [address] Tania Gates OD [facility] [place] [address] documented as of this encounter Procedures Procedure [...] Glucose, POC 141 65 - 199 mg/dL [facility] Comment: Supplemental ranges: <140 mg/dL before meals <180 mg/dL all other times of the day Blood specimen (specimen) 07/05/2018 8:12 AM EDT 07/05/2018 8:12 AM EDT Mihai Crain MD POINT OF CARE JENNIFER T ORDERABLES [facility] [place] [address] * POCT Glucose (07/04/2018 11:51 PM EDT) Glucose, POC 145 65 - 199 mg/dL [facility] Comment: Supplemental ranges: <140 mg/dL before meals <180 mg/dL all other times of the day Blood specimen (specimen) 07/04/2018 11:51 PM EDT 07/04/2018 11:51 PM EDT Emergency Dept POINT OF CARE TEST ORDERABLES Performing Organization Address [facility] Co de Phone Number [facility] [place] [address] * EKG 12 Lead (07/04/2018 10:00 PM EDT) Ventricular rate 84 BPM MUSE SYSTEM Atrial Rate 84 BPM MUSE SYSTEM P-R Interval 170 ms MUSE SYSTEM QRS Duration 104 ms MUSE SYSTEM Q-T Interval 368 ms MUSE SYSTEM QTC Calculated (Bezet) 434 ms MUSE SYSTEM Calculated P [place] 61 degrees MUSE SYSTEM Calculated R [place] 48 degrees MUSE SYSTEM Calculated T [place] 22 degrees MUSE SYSTEM INTERPRETATION Normal sinus rhythm Normal ECG When compared with ECG of 04-APR-2017 00:04, No significant change was found Confirmed by MD Galan Timothy ([id number]) on 07/05/2018 8:06:52 AM MUSE SYSTEM 07/04/2018 10:0 0 PM EDT 07/05/2018 8:06 AM EDT Ruth Velazquez MD ECG ORDERABLES Performing Organization Address [facility] Co de Phone Number MUSE SYSTEM * Salicylate (07/04/2018 9:47 PM EDT) Salicylate <20 mg/L [facility] Comment: Therapeutic Range: ??< 200 [...] MD CHEMISTRY ORDERABLE S Performing Organization Address City/[facility]/ZIP Co de Phone Number [facility] [place] [address] * (ABNORMAL) Acetaminophen level (07/04/2018 9:47 PM EDT) Pathologist [facility] Acetamin Lvl <5(L) 10 - 30 mg/L [facility] Comment: Levels >150 mg/L at 4 hours post ingestion or >75 mg/L at 8 hours post ingestion are often an indication for N-Acetylcysteine. Blood specimen (specimen) 07/04/2018 9:47 PM EDT 07/04/2018 9:47 PM EDT Narrative Resulting Agency Comment Spec In Lab Ruth Velazquez MD CHEMISTRY ORDERABLE S Performing Organization Address [facility]/ZIP Co de Phone Number [facility] [place] [address] * Blue Tube HOLD (07/04/2018 9:00 PM EDT) Pathologist [facility] Blue Hold Sample in lab. [facility] Blood specimen (specimen) Venous Draw / Unknown 07/04/2018 9:00 PM EDT 07/04/2018 9:07 PM EDT Devon WALTON HEMATOLOGY ORDERABLE S Performing Organization Address City/[facility]/ZIP Co de Phone Number [facility] [place] [address] * (ABNORMAL) Differential, Automated (07/04/2018 9:00 PM EDT) Neutrophil % 68.8 % [facility] Neutrophil Absolute 7.03(H) 1.70 - 6.10 x10(3)/mc L [facility] Lymph % 25.7 % [facility] Lymphocytes Abs 2.6 0.9 - 3.2 x10(3)/[facility] Monocyte % 3.8 % [facility] Monocyte Abs 0.4 0.3 - 0.9 x10(3)/[facility] Eos % 0.5 % [facility] Eosinophils Abs 0.0 0.0 - 0.4 x10(3)/[facility] Basophil % 0.4 % [facility] Baso Absolute 0.0 0.0 - 0.1 x10(3)/[facility] Immature Gran % 0.80 % [facility] Comment: Immature granulocytes(IG's)percentage and absolute count will include metamyelocytes, myelocytes, and promyelocytes. Blood smears from CBCs yielding IG's will be scanned manually for concordance. If this scan disagrees with the automated IG or if promyelocytes are noted, a manual differential will be performed. Immature Gran Absolute 0.08(H) 0.00 - 0.04 x10(3)/[facility] Blood specimen (specimen) 07/04/2018 9:00 PM EDT 07/04/2018 9:07 PM EDT Narrative Resulting Agency Comment Spec In Lab Devon WALTON HEMATOLOGY ORDERABLE S [facility] [place] [address] * (ABNORMAL) Hemogram (07/04/2018 9:00 PM EDT) White Blood Cell 10.2(H) 4.0 - 9.5 x10(3)/[facility] Red Blood Cell 5.33 4.58 - 5.54 x10(6)/[facility] Hemoglobin 16.5 13.7 - 16.5 gm/dL [facility] Hematocrit 46.9 40.5 - 48.5 % [facility] Mean Cell Volume 88.0 82.9 - 93.1 fL [facility] Mean Cell Hemoglobin 31.0 27.5 - 32.1 pg [facility] Mean Cell Hemoglobin Concentration 35.2 32.0 - 35.7 gm/dL [facility] Platelet 264 145 - 357 x10(3)/mc L [facility] RDW Standard Deviation 37.7 36.0 - 45.0 fL [facility] RDW coefficient of variation 11.8 11.4 - 13.8 % [facility] Mean Platelet Volume 9.1 7.6 - 12.9 fL [facility] NRBC% auto 0.0 % [facility] NRBC Absolute 0.000 0.000 - 0.000 x10(3)/mc L [facility] Blood specimen (specimen) 07/04/2018 9:00 PM EDT 07/04/2018 9:07 PM EDT Narrative Resulting Agency Comment Spec In Lab Devon WALTON HEMATOLOGY ORDERABLE S [facility] [place] [address] * Hepatic Function Panel (07/04/2018 9:00 PM EDT) Protein, Total 7.1 6.1 - 8.0 gm/dL [facility] Albumin 4.1 3.2 - 5.2 gm/dL [facility] Aspartate Aminotransferase 19 0 - 39 unit/L [facility] Alanine Aminotransferase 31 0 - 55 unit/L [facility] Alkaline Phosphatase 83 40 - 120 unit/L [facility] Bilirubin, Total 0.3 0.2 - 1.3 mg/dL [facility] Bilirubin, Direct 0.1 0.0 - 0.3 mg/dL [facility] Blood specimen (specimen) 07/04/2018 9:00 PM EDT 07/04/2018 9:07 PM EDT Narrative Resulting Agency Comment Spec In Lab Ruth Velazquez MD CHEMISTRY ORDERABLE S Performing Organization Address [facility] Co de Phone Number [facility] [place] [address] * (ABNORMAL) Ethanol Level (07/04/2018 9:00 PM EDT) Ethanol 1,337(H) <=99 mg/L [facility] Comment: Greater than 800 mg/L (0.08%) should be considered intoxicated. 3400 to 4500 mg/L (0.34 - 0.45%) is considered severe intoxication. Greater than 5500 mg/L (0.55%) is usually fatal. Blood specimen (specimen) 07/04/2018 9:00 PM EDT 07/04/2018 9:07 PM EDT Narrative Resulting Agency Comment Spec In Lab Ruth Velazquez MD CHEMISTRY ORDERABLE S Performing Organization Address [facility] Co de Phone Number [facility] [place] [address] * (ABNORMAL) Basic Metabolic Panel (non-fasting) (07/04/2018 9:00 PM EDT) Glucose 279(H) 65 - 199 mg/dL [facility] Comment:Diabetes: >=200 mg/d L plus symptoms Blood Urea Nitrogen 17 10 - 20 mg/dL [facility] Creatinine 1.27 0.80 - 1.50 mg/dL [facility] Sodium 138 135 - 145 mmol/L [facility] Potassium 3.9 3.5 - 5.0 mmol/L [facility] Comment: Please note: ??Patients with WBC >100,000 may have falsely elevated Potassium levels. ??For accurate Potassium quantification in these patients send serum separator tube (gold top) for subsequent determinations. ??Contact the Clinical Chemistry Laboratory if there are any questions. Chloride 100 98 - 107 mmol/L [facility] Carbon Dioxide 21(L) 22 - 31 mmol/L [facility] Anion Gap 17(H) 5 - 15 mmol/L [facility] Calcium 9.8 8.5 - 10.5 mg/dL [facility] Est Glomerular Filtration Rate 65 >=60 mL/min/1. 73 m?? [facility] Comment: The eGFR was calculated using the CKD-EPI equation. As with all creatinine based estimates of kidney function, eGFR values calculated with the CKD-EPI equation are not accurate in patients with acute kidney failure, extremes of body mass or the acutely ill. http://cookdinner/[employer] World Labsnkf eGFR 75 >=60 mL/min/1. 73 m?? [facility] Comment: The eGFR was calculated using the CKD-EPI equation. As with all creatinine based estimates of kidney function, eGFR values calculated with the CKD-EPI equation are not accurate in patients with acute kidney failure, extremes of body mass or the acutely ill. http://cookdinner/DHnkf Blood specimen (specimen) 07/04/2018 9:00 PM EDT 07/04/2018 9:07 PM EDT Narrative Resulting Agency Comment Spec In Lab Ruth Velazquez MD CHEMISTRY ORDERABLE S [facility] [place] [address] * (ABNORMAL) Rapid Drug Screen w/o Confirmation, Urine (07/04/2018 8:48 PM EDT) Barbiturates Screen, Urine None Detected None Detected [facility] Comment: The barbiturate screen detects barbiturates [...] Benzodiazepines Screen, Urine None Detected None Detected [facility] Comment: The benzodiazepines screen detects benzodiazepines [...] Cocaine Screen, Urine None Detected None Detected [facility] Comment: The cocaine metabolites screen detects benzoylecgonine (Cocaine Metabolite) at concentrations >150 ng/mL. A ? Presumptive Positive? result indicates that the screening result was positive but has not yet been confirmed by a highly-specific method. As with any screen, occasional false positive results from cross-reacting substances may occur. Not for Medico-Legal Purposes. Methadone Metabolites Screen, Urine None Detected None Detected [facility] Comment: The methadone metabolite screen detects EDDP (major methadone metabolite) at concentrations >100 ng/mL. A ? Presumptive Positive? result indicates that the screening result was positive but has not yet been confirmed by a highly-specific method. As with any screen, occasional false positive results from cross-reacting substances may occur. Not for Medico-Legal Purposes. Opiate Screen, Urine None Detected None Detected [facility] Comment: The opiates screen detects opiates [...] Cannabinoid Screen, Urine None Detected None Detected [facility] Comment: The marijuana metabolites screen detects the THC metabolite (25-ikd-5-carboxy-delta 9-THC) at concentrations >20 ng/mL. A ? Presumptive Positive? result indicates that the screening result was positive but has not yet been confirmed by a highly-specific method. As with any screen, occasional false positive results from cross-reacting substances may occur. Not for Medico-Legal Purposes. Oxycodone Screen, Urine None Detected None Detected [facility] Comment: The oxycodone screen detects oxycodone and oxymorphone at concentrations >100 ng/mL. A ? Presumptive Positive? result indicates that the screening result was positive but has not yet been confirmed by a highly-specific method. As with any screen, occasional false positive results from cross-reacting substances may occur. Not for Medico-Legal Purposes. Buprenorphine Screen, Urine None Detected None Detected [facility] Comment: The buprenorphine screen detects buprenorphine at concentrations >5 ng/mL. A ? Presumptive Positive? result indicates that the screening result was positive but has not yet been confirmed by a highly-specific method. As with any screen, occasional false positive results from cross-reacting substances may occur. Not for Medico-Legal Purposes. Fentanyl Screen, Urine None Detected None Detected [facility] Comment: The fentanyl screen detects fentanyl at concentrations >2 ng/mL. A ? Presumptive Positive? result indicates that the screening result was positive but has not yet been confirmed by a highly-specific method. As with any screen, occasional false positive results from cross-reacting substances may occur. Not for Medico-Legal Purposes. Tricyclics Screen, Urine None Detected None Detected [facility] Comment: The tricyclics screen detects tricyclic [...] Purposes. Ethanol Screen, Urine Positive(A) None Detected [facility] Comment:This urine ethanol a ssay detects ethanol at concentrations >/= 100 mg/L. Amphetamines Screen, Urine None Detected None Detected [facility] Comment: The amphetamine screen detects d-amphetamine and d-methamphetamine at concentrations >300 ng/mL. A ? Presumptive Positive? result indicates that the screening result was positive but has not yet been confirmed by a highly-specific method. As with any screen, occasional false positive results from cross-reacting substances may occur. Not for Medico-Legal Purposes. Adulterants Screen, Urine Suspected(A ) None Detected [facility] Comment: An adulteration screen performed on [...] Devon WALTON CHEMISTRY ORDERABLES Performing Organization Address [facility] Co de Phone Number [facility] [place] [address] * Rapid Drug Screen, Urine (MAYCO Request) (07/04/2018 8:48 PM EDT) MAYCO Conf Requested No [facility] MAYCO Requested See Comment [facility] Comment:Refer to Rapid Drug Screen w/o Confirmation, Urine for results. Urine specimen (specimen) 07/04/2018 8:48 PM EDT 07/04/2018 8:58 PM EDT Narrative Resulting Agency Comment Spec In Lab Ruth Velazquez MD URINE ORDERABLES Performing Organization Address [facility] Co de Phone Number [facility] [place] [address] documented in this encounter Visit Diagnoses Diagnosis [...]
--- OUTSIDE RECORDS SUMMARY | 2023-11-07 02:30 | XMS_ITS | Encounter Summary ---
[place] [address] Care Team Providers Care Coil Binder Name Role Phone Sae Marr MD Primary Care Provider [phone] Reason for Visit * Reason Comments Hospital Transfer Chest Pain * Auth/Cert Specialty Diagnoses / Procedures Referred By Contac t Referred To Contact Diagnoses STEMI (ST elevation myocardial infarction) ST elevation myocardial infarction (STEMI), unspecified artery STEMI Referral ID Status Reason Start Date Expiration Date Visits Re quested Visits Authorized [id number] 1 1 Encounter Details Date Type Department Care Team (Late st Contact Info) Description 08/06/2019 2:45 AM EDT - 08/06/2019 4:26 AM EDT Surgery [place] [phone] Jung Merino MD [facility] [place] [address] CARDIAC CATHETERIZATION Social History Tobacco Use Types [...] CARE - SAE MARR MD, August - [[phone]] - Please follow up with patient regarding his recent hospitalization for Inferior STEMI, s/p EDEN toRCA. - Please assess when appropriate to initiate Lisinopril; recommend BMP in the next 5-7 days to ensure that renal function is stable. - Please continue to guidance counselor regarding smoking cessation; he has been [...] a NicotinePatch. - LVEDP was 21 on [facility] - please assess need for maintenance [...] compared to ticagrelor or plavix, reducing stroke, NE and (NEJM 2019). ?? Give plavix 75 [...] prompted his to call 911. Per the meat grading machine operator's instructionshe took SLN x3, but did not experience any relief of symptoms. ?? EMS arrived and noted his heart rate to be in the 30s with blood pressures 60s/30s. He was transcutaneously paced en route to [facility]. EKG at [facility] showed STEs in the inferior leads [...] epinephrine. ?? He was transferred to the [facility] ED for evaluation. On arrival to [facility] he had continued chest pain, but his EKG changes had resolved. He was on 1.5 of epi with heart rates in the 80s and blood pressures in the 110s/50s. He was taken immediately to the cemetery laborer where he had a EDEN placed to his proximal RCA. He was weaned off of epinephrine in the cemetery laborer and transferred to the CSCU. ?? [...] DILATION AND TEST, RAMIRO; TECHRAMIRO Ophthalmology at [facility] Arrive at: Bandage Maker Area [phone] Future Orders Complete By Expires Referral to Cardiac Rehab [[id number] Custom] As directed Process Instructions: If no progress note charted, please enter Clinical details in comments. Scheduling Instructions: Questions: My question or request is: STEMI. Cardiac rehab at [facility]. Referral to Cardiology [REF12 Custom] As [...] appointments: During 8am-5pm Monday through Monday call [phone] to speak with a nurse in the cardiology clinic All other times call [phone] and ask to speak to the store merchandiser respiratory care practitioner. Activity level: - No heavy lifting (more [...] Center 02/11/2020 8:40 AM Tania Gates OD [facility] OPHT 4B [facility] Follow-Up Appointments Date and Time Provider and Specialty Location August 18 8:40am [facility] September 04 YULIYA GTZ MD [place], [place] Still Cleaner: Yuliya Gtz MD at [phone] PCP: Sae Marr MD at [phone] Your Primary Care Provider: Sae Marr MD [address] [place] [phone] For questions regarding issues relating to your hospitalization on the Hospital Medicine Service, please contact your inpatient physician through the [facility] Real Estate Loan Officer [phone]. Issues after hours and on weekends will be handled by the Hospitalist staff on-call. For questions regarding this document or issues relating to this hospitalization on the Medical Service, please contact your inpatient physician through the [facility] Real Estate Loan Officer . Issues afterhours and on weekends will be handled by the Still Cleaner staff on-call. documented in this encounter Discharge [...] appointments: During 8am-5pm Monday through Monday call [phone] to speak with a nurse in the cardiology clinic All other times call [phone] and ask to speak to the store merchandiser respiratory care practitioner. Activity level: - No heavy lifting (more [...] Center 02/11/2020 8:40 AM Tania Gates, OD [facility] OPHT 4B [facility] Follow-Up Appointments Date and Time Provider and Specialty Location August 18 8:40am [facility] September 04 YULIYA GTZ MD [place] Still Cleaner: Yuliya Gtz MD at [phone] PCP: Sae Marr MD at [phone] Your Primary Care Provider: Sae Marr MD [address] [place] [phone] For questions regarding issues relating to your hospitalization on the Hospital Medicine Service, please contact your inpatient physician through the [facility] Real Estate Loan Officer [phone]. Issues after hours and on weekends will be handled by the Hospitalist staff on-call. * Attachments The following attachments cannot be sent through Care Everywhere. * Smoking: Stopping (Bulgarian) * Smoking: Anti-Smoking Medication: Deciding About (Bulgarian) * Smoking Cessation: Health Benefits: General Info (Bulgarian) * Cardiac Rehabilitation (Bulgarian) * Heart Attack: Medicine for Secondary Prevention (Bulgarian) * PCI (Percutaneous Coronary Intervention): Post-op (Bulgarian) documented in this encounter Medications at Time [...] 10 mg - LVEDP 21 in the Manager Solar - Prior to Cardiac Catheterization, noted to [...] was high. - F/u with PCP for fci DM control. 3. COPD - Duoneb q4h [...] PCP: Sae Marr MD PCP phone #: [phone] ID/Chief Complaint: Inferior STEMI History of Present [...] prompted his to call 911. Per the meat grading machine operator's instructionshe took SLN x3, but did not experience any relief of symptoms. EMS arrived and noted his heart rate to be in the 30s with blood pressures 60s/30s. He was transcutaneously paced en route to [facility]. EKG at [facility] showed STEs in the inferior leads [...] to epinephrine. He was transferred to the [facility] ED for evaluation. On arrival to [facility] he had continued chest pain, but his EKG changes had resolved. He was on 1.5 of epi with heart rates in the 80s and blood pressures in the 110s/50s. He was taken immediately to the cemetery laborer where he had a EDEN placed to his proximal RCA. He was weaned off of epinephrine in the cemetery laborer and transferred to the CSCU. In [...] by mouth daily. ??? lancets 33 gauge [facility] Lancets [facility] USE DIRECTED. Active ??? 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 Invalid input(s): [id number] Heme: No results for input(s): LDH, HAPTOGLOBIN, [...] Admit to Cardiology, S2 Team Pager # [phone] #CAD #inferior STEMI - s/p asa 324 [...] cardiology and will be rushed to the Manager Solar. Review of Systems: Review of Systems Constitutional: [...] by cardiology and was rushed to the Manager Solar. No infectious symptoms concerning for COVID. Mendoza [...] in the outpatient cardiac rehabilitation program at [facility] was discussed. Patient agrees to a referral to this program. He participated in a few sessions of cardiac rehab [facility] in 2018 s/p PCI. 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 No problem w/ADL's Living Situation: lives w/spouse in a single level w/3STE and also has a camp w/2STE Physical Address [address] [place], [place] [address] [place] [address] Supports: Lives w/ and [id number] who are both supportive. Also has friends [...] home via car w/ when medically ready. supervisor commissary production/Head Butler will continue to follow patient???s progress and remain available if situation changes for coordination of care, psychosocial support and/or discharge planning. Kareen Samayoa RN Pager [phone] Extension [phone] * Plan of Care - Natalia Renee [...] concerns. Thank you. Bryn Guevara, MSN, RN-, [facility] Tobacco Social Work Specialist [facility] Pager #[phone] * Plan of Care - Daniel Sands [...] Merino MD - 08/06/2019 3:50 AM EDT [facility] Operative Note Patient Name: Samy Patricio Jr. : [id number] MR#: [id number] Case Date: 08/06/2019 Surgeon: Surgeon(s) and Role: [...] compared to ticagrelor or plavix, reducing stroke, NE and (NEJM 2019). Give plavix 75 mg [...] arrived via EMS from OSH for [facility] cemetery laborer. 3PM patient started to have chest pain continued to get worse. Took 3 SL nitro at home and EMS was called. documented in this encounter Plan of Treatment Upcoming Encounters Date Type Department Care Team (Late st Contact Info) Description 03/20/2024 10:00 AM EST Office [place] [address] [facility] [place] [address] Scheduled Orders Name Type Priority Associated Diagnoses [...] Glucose, POC 286(H) 65 - 199 mg/dL [facility] Comment: Supplemental ranges: <140 mg/dL before meals <180 mg/dL all other times of the day Blood specimen (specimen) 08/07/2019 4:53 PM EDT 08/07/2019 4:53 PM EDT Tariq Guerrero MD POINT OF CARE TEST O RDERABLES [facility] [place] [address] * POCT Glucose (08/07/2019 1:55 PM EDT) Glucose, POC 178 65 - 199 mg/dL [facility] Comment: Supplemental ranges: <140 mg/dL before meals <180 mg/dL all other times of the day Blood specimen (specimen) 08/07/2019 1:55 PM EDT 08/07/2019 1:55 PM EDT Tariq Guerrero MD POINT OF CARE TEST O RDERABLES [facility] [place] [address] * CK (08/07/2019 12:05 PM EDT) Creatine Kinase 133 0 - 200 unit/L [facility] Blood specimen (specimen) 08/07/2019 12:05 PM EDT 08/07/2019 12:20 PM EDT Narrative Resulting Agency Comment Spec In Lab Tariq Guerrero MD CHEMISTRY ORDERABLES Performing Organization Address [facility] Co de Phone Number [facility] [place] [address] * (ABNORMAL) POCT Glucose (08/07/2019 11:20 AM EDT) Glucose, POC 309(H) 65 - 199 mg/dL [facility] Comment: Supplemental ranges: <140 mg/dL before meals <180 mg/dL all other times of the day Blood specimen (specimen) 08/07/2019 11:20 AM EDT 08/07/2019 11:20 AM EDT Tariq Guerrero MD POINT OF CARE TEST O RDERABLES Performing Organization Address [facility] de Phone Number [facility] [place] [address] * EKG 12 Lead (08/07/2019 8:57 AM EDT) Ventricular rate 75 BPM MUSE SYSTEM Atrial Rate 75 BPM MUSE SYSTEM P-R Interval 176 ms MUSE SYSTEM QRS Duration 94 ms MUSE SYSTEM Q-T Interval 390 ms MUSE SYSTEM QTC Calculated (Bezet) 435 ms MUSE SYSTEM Calculated P [place] 67 degrees MUSE SYSTEM Calculated R [place] 47 degrees MUSE SYSTEM Calculated T [place] -5 degrees MUSE SYSTEM INTERPRETATION Normal sinus rhythm T wave abnormality, consider inferior ischemia Abnormal ECG When compared with ECG of 06-AUG-2019 20:18, (unconfirmed) No significant change was found Confirmed by MD Yaima, Timothy Collins ([id number]) on 08/07/2019 5:14:03 PM MUSE SYSTEM 08/07/2019 8:57 AM EDT 08/07/2019 5:14 PM EDT Tiffanie Espino MD ECG ORDERABLES Performing Organization Address [facility] Co de Phone Number MUSE SYSTEM * POCT Glucose (08/07/2019 7:23 AM EDT) Glucose, POC 160 65 - 199 mg/dL [facility] Comment: Supplemental ranges: <140 mg/dL before meals <180 mg/dL all other times of the day Blood specimen (specimen) 08/07/2019 7:23 AM EDT 08/07/2019 7:23 AM EDT Tariq Guerrero MD POINT OF CARE TEST O RDERABLES Performing Organization Address City/[facility]/ZIP Co de Phone Number [facility] [place] [address] * CK (08/07/2019 5:53 AM EDT) [facility] Creatine Kinase 168 0 - 200 unit/L [facility] Blood specimen (specimen) Venous Draw / Unknown 08/07/2019 5:53 AM EDT 08/07/2019 6:07 AM EDT Narrative Resulting Agency Comment Spec In Lab Philip Johnson MD CHEMISTRY ORDERABLES Performing Organization Address [facility] Co de Phone Number [facility] [place] [address] * (ABNORMAL) Troponin (08/07/2019 5:53 AM EDT) [facility] Troponin-T 0.50(H) 0.00 - 0.00 ng/mL [facility] Comment: The 99th percentile for Troponin T is less than 0.01 ng/mL, any detectable cTnT concentration using this assay should be considered elevated. According to the third universal definition of myocardial infarction the following criteria with a clinical presentation consistent with acute myocardial ischemia meets the diagnosis for a myocardial infarction (NE). Detection of a rise and/or fall of cTnT, with at least one value greater than the 99th percentile (> or = 0.01) and with at least one of the following ?? Symptoms of ischemia ?? New or presumed new significant EQ-xxlihki-T wave (ST-T) changes or new left bundle [...] additional sample may be indicated. Reference: Third [place] Definition of Myocardial Infarction. Journal of the [place] College of Cardiology 2012;60:1581-98 Blood specimen (specimen) 08/07/2019 5:53 AM EDT 08/07/2019 5:59 AM EDT Narrative Resulting Agency Comment Spec In Lab Tariq Guerrero MD CHEMISTRY ORDERABLES [facility] [place] [address] * Differential, Automated (08/07/2019 5:53 AM EDT) Neutrophil % 59.8 % [facility] Neutrophil Absolute 4.63 1.70 - 6.10 x10(3)/[facility] Lymph % 24.9 % [facility] Lymphocytes Abs 1.9 0.9 - 3.2 x10(3)/[facility]ORY Monocyte % 8.5 % [facility] Monocyte Abs 0.7 0.3 - 0.9 x10(3)/[facility] LABORATORY Eos % 5.8 % [facility] Eosinophils Abs 0.4 0.0 - 0.4 x10(3)/[facility]ORY Basophil % 0.5 % [facility] Baso Absolute 0.0 0.0 - 0.1 x10(3)/[facility] LABORATORY Immature Gran % 0.50 % [facility] Comment: Immature granulocytes(IG's)percentage and absolute count will include metamyelocytes, myelocytes, and promyelocytes. Blood smears from CBCs yielding IG's will be scanned manually for concordance. If this scan disagrees with the automated IG or if promyelocytes are noted, a manual differential will be performed. Immature Gran Absolute 0.04 0.00 - 0.04 x10(3)/[facility] Blood specimen (specimen) 08/07/2019 5:53 AM EDT 08/07/2019 5:59 AM EDT Narrative Resulting Agency Comment Spec In Lab Lovely Moise MD HEMATOLOGY ORDERABLE S [facility] [place] [address] * Hemogram (08/07/2019 5:53 AM EDT) White Blood Cell 7.8 4.0 - 9.5 x10(3)/[facility] Red Blood Cell 4.71 4.58 - 5.54 x10(6)/[facility] Hemoglobin 14.5 13.7 - 16.5 gm/dL [facility] Hematocrit 43.0 40.5 - 48.5 % [facility] Mean Cell Volume 91.3 82.9 - 93.1 [facility]ATORY Mean Cell Hemoglobin 30.8 27.5 - 32.1 pg [facility] Mean Cell Hemoglobin Concentration 33.7 32.0 - 35.7 gm/dL [facility] Platelet 181 145 - 357 x10(3)/[facility]ATORY RDW Standard Deviation 44.3 36.0 - 45.0 [facility] RDW coefficient of variation 13.1 11.4 - 13.8 % [facility] Mean Platelet Volume 9.6 7.6 - 12.9 [facility]ATORY NRBC% auto 0.0 % [facility] NRBC Absolute 0.000 0.000 - 0.000 x10(3)/[facility] Blood specimen (specimen) 08/07/2019 5:53 AM EDT 08/07/2019 5:59 AM EDT Narrative Resulting Agency Comment Spec In Lab Lovely Moise MD HEMATOLOGY ORDERABLE S Performing Organization Address City/[facility]/ZIP Co de Phone Number [facility] [place] [address] * Magnesium (08/07/2019 5:53 AM EDT) Magnesium 0.86 0.69 - 1.07 mmol/L [facility] Blood specimen (specimen) 08/07/2019 5:53 AM EDT 08/07/2019 5:59 AM EDT Narrative Resulting Agency Comment Spec In Lab Tariq Guerrero MD CHEMISTRY ORDERABLES Performing Organization Address [facility] Co de Phone Number [facility] [place] [address] * (ABNORMAL) BMP w/fasting Glucose (08/07/2019 5:53 AM EDT) Glucose Fasting 152(H) 65 - 99 mg/dL [facility] Comment: ?Fasting* Glucose Interpretive Criteria [...] of Diabetes Mellitus, Position Statement from the [place] Diabetes Association. ??Diabetes Care, Volume 33, Supplement 1, Mar 2009 Blood Urea Nitrogen 14 10 - 20 mg/dL [facility] Creatinine 1.43 0.80 - 1.50 mg/dL [facility] Sodium 141 135 - 145 mmol/L [facility] Potassium 4.1 3.5 - 5.0 mmol/L [facility] Comment: Please note: ??Patients with WBC >100,000 may have falsely elevated Potassium levels. ??For accurate Potassium quantification in these patients send serum separator tube (gold top) for subsequent determinations. ??Contact the Clinical Chemistry Laboratory if there are any questions. Chloride 100 98 - 107 mmol/L [facility] Carbon Dioxide 30 22 - 31 mmol/L [facility] Anion Gap 11 5 - 15 mmol/L [facility] Calcium 8.9 8.5 - 10.5 mg/dL [facility] Est Glomerular Filtration Rate 56(L) >=60 mL/min/1. 73 m?? [facility] Comment: The eGFR was calculated using the CKD-EPI equation. As with all creatinine based estimates of kidney function, eGFR values calculated with the CKD-EPI equation are not accurate in patients with acute kidney failure, extremes of body mass or the acutely ill. [email or web address]/[email or web address] eGFR 65 >=60 mL/min/1. 73 m?? [facility] Comment: The eGFR was calculated using the CKD-EPI equation. As with all creatinine based estimates of kidney function, eGFR values calculated with the CKD-EPI equation are not accurate in patients with acute kidney failure, extremes of body mass or the acutely ill. [email or web address] [email or web address] Blood specimen (specimen) 08/07/2019 5:53 AM EDT 08/07/2019 5:59 AM EDT Narrative Resulting Agency Comment Spec In Lab Tariq Guerrero MD CHEMISTRY ORDERABLES [facility] [place] [address] * POCT Glucose (08/07/2019 4:16 AM EDT) Glucose, POC 120 65 - 199 mg/dL [facility] Comment: Supplemental ranges: <140 mg/dL before meals <180 mg/dL all other times of the day Blood specimen (specimen) 08/07/2019 4:16 AM EDT 08/07/2019 4:16 AM EDT Tariq Guerrero MD POINT OF CARE TEST O RDERABLES Performing Organization Address City/[facility]/ZIP Co de Phone Number [facility] [place] [address] * (ABNORMAL) CK (08/07/2019 12:28 AM EDT) Creatine Kinase 220(H) 0 - 200 unit/L [facility] Blood specimen (specimen) 08/07/2019 12:28 AM EDT 08/07/2019 12:37 AM EDT Narrative Resulting Agency Comment Spec In Lab Tariq Guerrero MD CHEMISTRY ORDERABLES Performing Organization Address [facility] Co de Phone Number [facility] [place] [address] * (ABNORMAL) Troponin (08/07/2019 12:28 AM EDT) Troponin-T 0.62(H) 0.00 - 0.00 ng/mL [facility] Comment: The 99th percentile for Troponin T is less than 0.01 ng/mL, any detectable cTnT concentration using this assay should be considered elevated. According to the third universal definition of myocardial infarction the following criteria with a clinical presentation consistent with acute myocardial ischemia meets the diagnosis for a myocardial infarction (NE). Detection of a rise and/or fall of cTnT, with at least one value greater than the 99th percentile (> or = 0.01) and with at least one of the following ?? Symptoms of ischemia ?? New or presumed new significant OY-ofaksec-U wave (ST-T) changes or new left bundle [...] additional sample may be indicated. Reference: Third [place] Definition of Myocardial Infarction. Journal of the [place] College of [employer]iology 2012;60:1581-98 Blood specimen (specimen) 08/07/2019 12:28 AM EDT 08/07/2019 12:37 AM EDT Narrative Resulting Agency Comment Spec In Lab Tariq Guerrero MD CHEMISTRY ORDERABLES Performing Organization Address [facility] Co de Phone Number [facility] [place] [address] * (ABNORMAL) POCT Glucose (08/06/2019 11:26 PM EDT) Pathologist [facility] Glucose, POC 216(H) 65 - 199 mg/dL [facility] Comment: Supplemental ranges: <140 mg/dL before meals <180 mg/dL all other times of the day Blood specimen (specimen) 08/06/2019 11:26 PM EDT 08/06/2019 11:26 PM EDT Tariq Guerrero MD POINT OF CARE TEST O RDERABLES Performing Organization Address [facility] de Phone Number [facility] [place] [address] * EKG 12 Lead (08/06/2019 8:18 PM EDT) Ventricular rate 81 BPM MUSE SYSTEM Atrial Rate 81 BPM MUSE SYSTEM P-R Interval 178 ms MUSE SYSTEM QRS Duration 96 ms MUSE SYSTEM Q-T Interval 368 ms MUSE SYSTEM QTC Calculated (Bezet) 427 ms MUSE SYSTEM Calculated P [place] 64 degrees MUSE SYSTEM Calculated R [place] 52 degrees MUSE SYSTEM Calculated T [place] 3 degrees MUSE SYSTEM INTERPRETATION Normal sinus rhythm Normal ECG When compared with ECG of 06-AUG-2019 06:13, (unconfirmed) No significant change was found Confirmed by MD Yaima, Timothy Collins ([id number]) on 08/07/2019 4:51:03 PM MUSE SYSTEM 08/06/2019 8:18 PM EDT 08/07/2019 4:51 PM EDT Tariq Guerrero MD ECG ORDERABLES Performing Organization Address [facility] Co de Phone Number MUSE SYSTEM * POCT Glucose (08/06/2019 7:59 PM EDT) Glucose, POC 193 65 - 199 mg/dL [facility] Comment: Supplemental ranges: <140 mg/dL before meals <180 mg/dL all other times of the day Blood specimen (specimen) 08/06/2019 7:59 PM EDT 08/06/2019 7:59 PM EDT Tariq Guerrero MD POINT OF CARE TEST O RDERABLES Performing Organization Address [facility]/ZIP Co de Phone Number [facility] [place] [address] * (ABNORMAL) CK (08/06/2019 6:13 PM EDT) [facility] Creatine Kinase 301(H) 0 - 200 unit/L [facility] Blood specimen (specimen) 08/06/2019 6:13 PM EDT 08/06/2019 7:04 PM EDT Narrative Resulting Agency Comment Spec In Lab Tariq Guerrero MD CHEMISTRY ORDERABLES Performing Organization Address [facility] Co de Phone Number [facility] [place] [address] * (ABNORMAL) Troponin (08/06/2019 6:13 PM EDT) [facility] Troponin-T 0.84(H) 0.00 - 0.00 ng/mL [facility] Comment: The 99th percentile for Troponin T is less than 0.01 ng/mL, any detectable cTnT concentration using this assay should be considered elevated. According to the third universal definition of myocardial infarction the following criteria with a clinical presentation consistent with acute myocardial ischemia meets the diagnosis for a myocardial infarction (NE). Detection of a rise and/or fall of cTnT, with at least one value greater than the 99th percentile (> or = 0.01) and with at least one of the following ?? Symptoms of ischemia ?? New or presumed new significant XX-kgpizto-Q wave (ST-T) changes or new left bundle [...] additional sample may be indicated. Reference: Third [place] Definition of Myocardial Infarction. Journal of the [place] College [employer] 2012;60:1581-98 Blood specimen (specimen) 08/06/2019 6:13 PM EDT 08/06/2019 7:04 PM EDT Narrative Resulting Agency Comment Spec In Lab Tariq Guerrero MD CHEMISTRY ORDERABLES Performing Organization Address [facility] Co de Phone Number [facility] [place] [address] * POCT Glucose (08/06/2019 4:18 PM EDT) Glucose, POC 105 65 - 199 mg/dL [facility] Comment: Supplemental ranges: <140 mg/dL before meals <180 mg/dL all other times of the day Blood specimen (specimen) 08/06/2019 4:18 PM EDT 08/06/2019 4:18 PM EDT Tariq Guerrero MD POINT OF CARE TEST O RDERABLES Performing Organization Address [facility] Co de Phone Number [facility] [place] [address] * Magnesium (08/06/2019 2:06 PM EDT) Magnesium 0.82 0.69 - 1.07 mmol/L [facility] Blood specimen (specimen) 08/06/2019 2:06 PM EDT 08/06/2019 2:18 PM EDT Narrative Resulting Agency Comment Spec In Lab Tariq Guerrero MD CHEMISTRY ORDERABLES Performing Organization Address [facility] Co de Phone Number [facility] [place] [address] * Basic Metabolic Panel (non-fasting) (08/06/2019 2:06 PM EDT) Glucose 108 65 - 199 mg/dL [facility] Comment:Diabetes: >=200 mg/d L plus symptoms Blood Urea Nitrogen 12 10 - 20 mg/dL [facility] Creatinine 1.23 0.80 - 1.50 mg/dL [facility] Sodium 140 135 - 145 mmol/L [facility] Potassium 4.4 3.5 - 5.0 mmol/L [facility] Comment: Please note: ??Patients with WBC >100,000 may have falsely elevated Potassium levels. ??For accurate Potassium quantification in these patients send serum separator tube (gold top) for subsequent determinations. ??Contact the Clinical Chemistry Laboratory if there are any questions. Chloride 101 98 - 107 mmol/L [facility] Carbon Dioxide 26 22 - 31 mmol/L [facility] Anion Gap 13 5 - 15 mmol/L [facility] Calcium 9.3 8.5 - 10.5 mg/dL [facility] Est Glomerular Filtration Rate 67 >=60 mL/min/1. 73 m?? [facility] Comment: The eGFR was calculated using the CKD-EPI equation. As with all creatinine based estimates of kidney function, eGFR values calculated with the CKD-EPI equation are not accurate in patients with acute kidney failure, extremes of body mass or the acutely ill. http://Tempered Mind/[facility] eGFR 78 >=60 mL/min/1. 73 m?? [facility] Comment: The eGFR was calculated using the CKD-EPI equation. As with all creatinine based estimates of kidney function, eGFR values calculated with the CKD-EPI equation are not accurate in patients with acute kidney failure, extremes of body mass or the acutely ill. http://Tempered Mind/[facility] Blood specimen (specimen) 08/06/2019 2:06 PM EDT 08/06/2019 2:18 PM EDT Narrative Resulting Agency Comment Spec In Lab Tariq Guerrero MD CHEMISTRY ORDERABLES Performing Organization Address City/[facility]/ZIP Co de Phone Number [facility] [place] [address] * (ABNORMAL) CK (08/06/2019 12:05 PM EDT) Creatine Kinase 344(H) 0 - 200 unit/L [facility] Blood specimen (specimen) 08/06/2019 12:05 PM EDT 08/06/2019 12:15 PM EDT Narrative Resulting Agency Comment Spec In Lab Tariq Guerrero MD CHEMISTRY ORDERABLES Performing Organization Address [facility] Co de Phone Number [facility] [place] [address] * (ABNORMAL) Troponin (08/06/2019 12:05 PM EDT) Troponin-T 0.74(H) 0.00 - 0.00 ng/mL [facility] Comment: The 99th percentile for Troponin T is less than 0.01 ng/mL, any detectable cTnT concentration using this assay should be considered elevated. According to the third universal definition of myocardial infarction the following criteria with a clinical presentation consistent with acute myocardial ischemia meets the diagnosis for a myocardial infarction (NE). Detection of a rise and/or fall of cTnT, with at least one value greater than the 99th percentile (> or = 0.01) and with at least one of the following ?? Symptoms of ischemia ?? New or presumed new significant OT-omdpzxx-C wave (ST-T) changes or new left bundle [...] additional sample may be indicated. Reference: Third [place] Definition of Myocardial Infarction. Journal of the [place] [employer] 2012;60:1581-98 Blood specimen (specimen) 08/06/2019 12:05 PM EDT 08/06/2019 12:15 PM EDT Narrative Resulting Agency Comment Spec In Lab Tariq Guerrero MD CHEMISTRY ORDERABLES Performing Organization Address [facility] Co de Phone Number [facility] [place] [address] * POCT Glucose (08/06/2019 11:13 AM EDT) Glucose, POC 106 65 - 199 mg/dL [facility] Comment: Supplemental ranges: <140 mg/dL before meals <180 mg/dL all other times of the day Blood specimen (specimen) 08/06/2019 11:13 AM EDT 08/06/2019 11:13 AM EDT Tariq Guerrero MD POINT OF CARE TEST O RDERABLES Performing Organization Address [facility] Co de Phone Number [facility] [place] [address] * ECHO COMPLETE (08/06/2019 9:20 AM EDT) EF 64 HEARTLAB SYSTEM Anatomical Region Laterality Modality Other 08/06/2019 Narrative 08/06/2019 9:40 AM EDT Procedure: ?Transthoracic Echocardiogram Patient: ?GIDEON STAPLES S ?(Age): 1965(53y) Med Rec#: ? [id number] ?Sex: ?M ? Site Loc: ? [facility] ?Ht / Wt: ??183(cm)/120(kg) Pt. Loc: ?Adult Floor ? BSA: ?2.4 Study Date: ?? 08/06/2019 ?Pt. Type: Inpatient Tape: ? Referring: EARLE Reading: Jack Lucas ([id number]) Cell Operator: Peter Beaver RDCS, FASE Interpreting Fellow: Tiffanie Hernandez ([id number]) Diagnosis: *ST elevation (STEMI) myocardial infarction of [...] Vmax ?0.88 ? m/sec ? MV deceleration eore653.89 ? msec ? MV A-wave Vmax ?0.85 [...] ? Mid-Inferior ?Normal ? Mid-Inferoseptal ?Normal ? [place]-Septal ? Normal ? [place]-Anterior ? Normal ? [place]-Lateral ?Normal ? [place]-Inferior ? Normal ? [place]-Tip ?Normal ? This report has been electronically signed by: Jack Lucas MD ? 08/06/2019 09:39:30 Images reviewed and interpretation verified [facility] Cardiac Ultrasound Laboratory Procedure Note Jack Lucas MD - 08/06/2019 Procedure: Transthoracic Echocardiogram Patient: GIDEON Oreilly (Age): 1965(53y) Med Rec#: [id number] Sex: M Site Loc: [facility] Ht / Wt: 183(cm)/120(kg) Pt. Loc: Adult Floor BSA: 2.4 Study Date: 08/06/2019 Pt. Type: Inpatient Tape: Referring: EARLE Reading: Jack Lucas ([id number]) Cell Operator: Peter Beaver RDCS, FASE Interpreting Fellow: Tiffanie Hernandez ([id number]) Diagnosis: *ST elevation (STEMI) myocardial infarction of [...] MV E-wave Vmax 0.88 m/sec MV deceleration pxls123.89 msec MV A-wave Vmax 0.85 m/sec MV [...] Normal Mid-Posterolateral Normal Mid-Inferior Normal Mid-Inferoseptal Normal [place]-Septal Normal [place]-Anterior Normal [place]-Lateral Normal [place]-Inferior Normal [place]-Tip Normal This report has been electronically signed by: Jack Lucas MD 08/06/2019 09:39:30 Images reviewed and interpretation verified [facility] Cardiac Ultrasound Laboratory Tiffanie Espino MD ECHO ORDERABLES * POCT Glucose (08/06/2019 7:18 AM EDT) Glucose, POC 170 65 - 199 mg/dL [facility] Comment: Supplemental ranges: <140 mg/dL before meals <180 mg/dL all other times of the day Blood specimen (specimen) 08/06/2019 7:18 AM EDT 08/06/2019 7:18 AM EDT Tariq Guerrero MD POINT OF CARE TEST O RDERABLES [facility] [place] [address] * XR Chest One View (08/06/2019 6:52 [...] (Bezet) 442 ms MUSE SYSTEM Calculated P [place] 68 degrees MUSE SYSTEM Calculated R [place] 59 degrees MUSE SYSTEM Calculated T [place] 24 degrees MUSE SYSTEM INTERPRETATION Normal sinus rhythm Normal ECG When compared with ECG of 06-AUG-2019 02:05, (unconfirmed) No significant change was found I personally reviewed the tracing and edited the fellows interpretation Confirmed by fellow MD Dee, Jaylin Oviedo ([id number]) on 08/06/2019 1:18:49 PM Confirmed by MD Yaima, Timothy Collins ([id number]) on 08/07/2019 9:47:42 AM MUSE SYSTEM 08/06/2019 6:13 AM EDT 08/07/2019 9:47 AM EDT Tiffanie Espino MD ECG ORDERABLES MUSE SYSTEM * Sedimentation rate (08/06/2019 5:35 AM EDT) [facility] Sedimentation Rate Automated 8 2 - 37 mm/hr [facility] Comment: Effective February 20, 2019 [...] MD HEMATOLOGY ORDERABLE S Performing Organization Address [facility] Co de Phone Number [facility] [place] [address] * CRP, acute inflammation (08/06/2019 5:35 AM EDT) [facility] C-Reactive Protein 4.3 <=4.9 mg/L [facility] Blood specimen (specimen) Venous Draw / Unknown 08/06/2019 5:35 AM EDT 08/06/2019 5:44 AM EDT Narrative Resulting Agency Comment Spec In Lab Philip Johnson MD CHEMISTRY ORDERABLES Performing Organization Address [facility] Co de Phone Number [facility] [place] [address] * (ABNORMAL) Differential, Automated (08/06/2019 5:35 AM EDT) Neutrophil % 73.5 % [facility] Neutrophil Absolute 6.30(H) 1.70 - 6.10 x10(3)/[facility] LABORATORY Lymph % 16.2 % [facility] Lymphocytes Abs 1.4 0.9 - 3.2 x10(3)/[facility] LABORATORY Monocyte % 5.5 % [facility] Monocyte Abs 0.5 0.3 - 0.9 x10(3)/[facility] LABORATORY Eos % 3.6 % [facility] Eosinophils Abs 0.3 0.0 - 0.4 x10(3)/[facility] LABORATORY Basophil % 0.6 % [facility] Baso Absolute 0.0 0.0 - 0.1 x10(3)/[facility] LABORATORY Immature Gran % 0.60 % [facility] Comment: Immature granulocytes(IG's)percentage and absolute count will include metamyelocytes, myelocytes, and promyelocytes. Blood smears from CBCs yielding IG's will be scanned manually for concordance. If this scan disagrees with the automated IG or if promyelocytes are noted, a manual differential will be performed. Immature Gran Absolute 0.05(H) 0.00 - 0.04 x10(3)/[facility] LABORATORY Blood specimen (specimen) 08/06/2019 5:35 AM EDT 08/06/2019 5:41 AM EDT Narrative Resulting Agency Comment Spec In Lab Mendoza Richards MD HEMATOLOGY CASSI HU [facility] [place] [address] * (ABNORMAL) Hemogram (08/06/2019 5:35 AM EDT) White Blood Cell 8.6 4.0 - 9.5 x10(3)/mc L [facility] Red Blood Cell 4.33(L) 4.58 - 5.54 x10(6)/ L [facility] Hemoglobin 13.4(L) 13.7 - 16.5 gm/dL [facility] Hematocrit 40.6 40.5 - 48.5 % [facility] Mean Cell Volume 93.8(H) 82.9 - 93.1 fL [facility] Mean Cell Hemoglobin 30.9 27.5 - 32.1 pg [facility] Mean Cell Hemoglobin Concentration 33.0 32.0 - 35.7 gm/dL [facility] Platelet 192 145 - 357 x10(3)/[facility] LABORATORY RDW Standard Deviation 45.2(H) 36.0 - 45.0 [facility] LABORATORY RDW coefficient of variation 13.2 11.4 - 13.8 % [facility] Mean Platelet Volume 9.5 7.6 - 12.9 [facility] LABORATORY NRBC% auto 0.0 % [facility] NRBC Absolute 0.000 0.000 - 0.000 x10(3)/[facility] LABORATORY Blood specimen (specimen) 08/06/2019 5:35 AM EDT 08/06/2019 5:41 AM EDT Narrative Resulting Agency Comment Spec In Lab Mendoza Richards MD HEMATOLOGY CASSI HU [facility] [place] [address] * Lipid Panel (Reflex Direct LDL) (08/06/2019 5:35 AM EDT) Cholesterol, Total 89 mg/dL [facility] Comment: Lower Risk: <200 mg/dL Average Risk: 200-239 mg/dL Higher Risk: >nh=647 mg/dL Triglyceride 89 mg/dL [facility] Comment: Average Risk/Lower Risk: <150 mg/dL Borderline High Risk: 150-199 mg/dL High Risk: 200-499 mg/dL Very High Risk: >po=287 mg/dL HDL Cholesterol 38 mg/dL [facility] Comment: Males: ?? Higher Risk: <40 mg/dL Females: ?? HIgher Risk: <50 mg/dL LDL Cholesterol 33 mg/dL [facility] Comment: Lowest Risk: <100 mg/dL Lower Risk: 100-129 mg/dL Borderline High Risk: 130-159 mg/dL High Risk: 160-189 mg/dL Very High Risk: >eq=229 mg/dL Cholesterol/HDL Ratio 2.3 ratio [facility] Lipid Interpretation See Note [facility] Comment: Lipid management should be guided by a patient? s ASCVD risk, goals and preferences. ACC/AHA Guidelines recommend high intensity statin if clinical ASCVD or LDL greater than or equal to 190 mg/dL. http://[employer].com/SAU-FXX-Keexkjuve Adults aged 40-75 with LDL 70-189 mg/dL should have their 10 year ASCVD risk estimated with the ACC/AHA ASCVD risk collision estimator http://tools.acc.org/JMAPN-Krlu-Lbnvtakxf/ Statin should be discussed if risk greater [...] In Lab Tiffanie Espino MD CHEMISTRY ORDERABLES [facility] [place] [address] * (ABNORMAL) Hemoglobin A1c (08/06/2019 5:35 AM EDT) Hemoglobin A1c 6.3(H) 4.3 - 5.6 % [facility] Comment: Reference Range: 4.3 - [...] 1, S67-74 Estimated Average Glucose 135 mg/dL [facility] Comment: eAG equivalents for HbA1c [...] into estimated average glucose values. ??Diabetes Care 2008:31(8):6621-7920. Blood specimen (specimen) 08/06/2019 5:35 AM EDT 08/06/2019 5:41 AM EDT Narrative Resulting Agency Comment Spec In Lab Tiffanie Espino MD CHEMISTRY ORDERABLES [facility] [place] [address] * (ABNORMAL) Troponin (08/06/2019 5:35 AM EDT) [facility] Troponin-T 0.31(H) 0.00 - 0.00 ng/mL [facility] Comment: The 99th percentile for Troponin T is less than 0.01 ng/mL, any detectable cTnT concentration using this assay should be considered elevated. According to the third universal definition of myocardial infarction the following criteria with a clinical presentation consistent with acute myocardial ischemia meets the diagnosis for a myocardial infarction (NE). Detection of a rise and/or fall of cTnT, with at least one value greater than the 99th percentile (> or = 0.01) and with at least one of the following ?? Symptoms of ischemia ?? New or presumed new significant YA-yulefmu-M wave (ST-T) changes or new left bundle [...] additional sample may be indicated. Reference: Third [place] Definition of Myocardial Infarction. Journal of the [place] [employer] 2012;60:1581-98 Blood specimen (specimen) 08/06/2019 5:35 AM EDT 08/06/2019 5:41 AM EDT Narrative Resulting Agency Comment Spec In Lab Tiffanie Espino MD CHEMISTRY ORDERABLES [facility] [place] [address] * (ABNORMAL) Basic Metabolic Panel (non-fasting) (08/06/2019 5:35 AM EDT) [facility] Glucose 250(H) 65 - 199 mg/dL [facility] Comment:Diabetes: >=200 mg/d L plus symptoms Blood Urea Nitrogen 12 10 - 20 mg/dL [facility] Creatinine 1.26 0.80 - 1.50 mg/dL [facility] Sodium 138 135 - 145 mmol/L [facility] Potassium 4.5 3.5 - 5.0 mmol/L [facility] Comment: Please note: ??Patients with WBC >100,000 may have falsely elevated Potassium levels. ??For accurate Potassium quantification in these patients send serum separator tube (gold top) for subsequent determinations. ??Contact the Clinical Chemistry Laboratory if there are any questions. Chloride 103 98 - 107 mmol/L [facility] Carbon Dioxide 24 22 - 31 mmol/L [facility] Anion Gap 11 5 - 15 mmol/L [facility] Calcium 8.6 8.5 - 10.5 mg/dL [facility] Est Glomerular Filtration Rate 65 >=60 mL/min/1. 73 m?? [facility] Comment: The eGFR was calculated using the CKD-EPI equation. As with all creatinine based estimates of kidney function, eGFR values calculated with the CKD-EPI equation are not accurate in patients with acute kidney failure, extremes of body mass or the acutely ill. http://Tempered Mind/DHnkf eGFR 76 >=60 mL/min/1. 73 m?? [facility] Comment: The eGFR was calculated using the CKD-EPI equation. As with all creatinine based estimates of kidney function, eGFR values calculated with the CKD-EPI equation are not accurate in patients with acute kidney failure, extremes of body mass or the acutely ill. http://Tempered Mind/DHnkf Blood specimen (specimen) 08/06/2019 5:35 AM EDT 08/06/2019 5:41 AM EDT Narrative Resulting Agency Comment Spec In Lab Tiffanie Espino MD CHEMISTRY ORDERABLES [facility] [place] [address] * (ABNORMAL) POCT Glucose (08/06/2019 5:32 AM EDT) Glucose, POC 215(H) 65 - 199 mg/dL [facility] Comment: Supplemental ranges: <140 mg/dL before meals <180 mg/dL all other times of the day Blood specimen (specimen) 08/06/2019 5:32 AM EDT 08/06/2019 5:32 AM EDT Tariq Guerrero MD POINT OF CARE TEST O RDERABLES [facility] [place] [address] * CARDIAC CATHETERIZATION (08/06/2019 4:38 AM EDT) Anatomical Region Laterality Modality Other Narrative 08/09/2019 2:54 PM EDT ?[facility] ? Cardiac Catheterization/Intervention Report ? Patient Name: Samy Patricio ? Procedure Date: 08/06/2019 ? A #: [id number] ? Primary Physician: Wilber, Jung Kirkpatrick ? Case #: [id number] ? File Name: [id number] ? Catheterization Order Number: [id number] ? [facility] ? Final Report [place], [place] ? Patient Name: ? Samy Patricio ? ID#: ?[id number] ? : ?1965 ? Procedure Date: ? [...] procedure was Emergent. 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 Consult [facility] Interventional Cardiology for ?questions. ?This patient has [...] against any medical treatment. Consult ?http://tools.acc.org/DAPTriskapp/#!/content/calculator/ or [facility] ?Interventional Cardiology for questions. ? Conclusions: ?* [...] Procedure Note Jung Merino MD - 09/12/2019 [facility] Cardiac Catheterization/Intervention Report Patient Name: Samy Patricio Procedure Date: 08/06/2019 A #: [id number] Primary Physician: Jung Merino Case #: [id number] File Name: [id number] Catheterization Order Number: [id number] [facility] FinalReport [place], [place] Patient Name: Samy Patricio ID#:[id number] :1965 Procedure Date: August 06, 2019 Case [...] patient wasdesignated as ASA Class IV. The [facility] clinical frailty scale is 4: Vulnerable. Diagnostic Tests: Electrocardiography: EKG was assessed by ECG. EKG was Abnormal. EKG showed STDeviation >= 0.5 mm. Medications Prior to Procedure: Angiotensin Converting Enzyme Inhibitor, Aspirin, Long Acting Nitrate, Statin and Thrombolytic (any). Indications for Diagnostic Cath: The priority of the diagnostic procedure was Emergent. Theindication for the cemetery laborer visit is ACS less than or [...] The priority for the procedure was Emergent.[facility] indication for the procedure was STEMI (after [...] situation mayrequire modification of this regimen. Consult [facility] Interventional Cardiologyfor questions. This patient has a [...] or against any medical treatment.Consult http://tools.acc.org/DAPTriskapp/#!/content/calculator/ or [facility] Interventional Cardiology for questions. Conclusions: * One [...] EKG 12 Lead (08/06/2019 2:05 AM EDT) [facility] Signature Ventricular rate 85 BPM MUSE SYSTEM Atrial Rate 85 BPM MUSE SYSTEM P-R Interval 172 ms MUSE SYSTEM QRS Duration 106 ms MUSE SYSTEM Q-T Interval 382 ms MUSE SYSTEM QTC Calculated (Bezet) 454 ms MUSE SYSTEM Calculated P [place] 68 degrees MUSE SYSTEM Calculated R [place] 71 degrees MUSE SYSTEM Calculated T [place] 24 degrees MUSE SYSTEM INTERPRETATION Normal sinus rhythm Normal ECG When compared with ECG of 04-JUL-2018 22:00, No significant change was found I personally reviewed the tracing and edited the fellows interpretation Confirmed by fellow MD Dee, Jaylin Oviedo ([id number]) on 08/06/2019 1:17:24 PM Confirmed by MD Yaima, Timothy Collins ([id number]) on 08/07/2019 9:47:34 AM MUSE SYSTEM 08/06/2019 [...] Discontinued, Routine 0600 (Given - Provider: Daniel Sadns RN)1236 (Given - Provider: Daniel Sands RN)1753 [...] Routine documented in this encounter Care Teams Coil Binder Relationship Specialty Start Date End Date Sae Marr MD PCP - General General Internal Medicine 08/06/19 9/3 documented as of this encounter
--- OUTSIDE RECORDS SUMMARY | 2023-11-07 02:30 | XMS_ITS | Encounter Summary ---
[place] [address] Care Team Providers Care Net Sql Developer Name Role Phone Altaf Hoover MD Primary Care Provider [phone] Encounter Details Date Type Department Care Team (Latest Contact Info) Description 12/15/2015 - 12/15/2015 11:59 PM EDT Hospital Encounter [place] [phone] Pop Xiao MD [facility] [place] [address] Pain Discharge Disposition: Home Social History Tobacco [...] 10:00 AM EST Office [place] [address] Tania Gates, [facility] [place] [address] documented as of this encounter Procedures Procedure Name Priority Date/Time Associated Diagnosis Comments FILM LIBRARY STORAGE ONLY MR SPINE Routine 12/15/2015 12:00 AM EDT Pain documented in this encounter Results * Film Library- Storage Only MR Spine (12/15/2015 12:00 AM EDT) Narrative [facility] - 02/06/2017 1:35 PM EST This exam is for storage only and is auto-finalizing. Pop Xiao MD IMG FILM LIBRARY ORD ERABLES [place], [place] documented in this encounter Visit Diagnoses Diagnosis Pain Generalized pain documented in this encounter Care Teams Net Sql Developer Relationship Specialty Start Date End Date Altaf Hoover MD [address] [place] [address] PCP - General 04/19/11 09/18/17 documented as of this encounter
--- OUTSIDE RECORDS SUMMARY | 2023-11-07 02:30 | XMS_ITS | Encounter Summary ---
[place] [address] Care Team Providers Care Contact Center Rep Name Role Phone Altaf Hoover MD Primary Care Provider [phone] Encounter Details Date Type Department Care Team (Late st Contact Info) Description 08/24/2017 External [place] [address] Social History Tobacco Use Types Packs/Day Years [...] 10:00 AM EST Office [place] [address] Tania Gates OD [facility] [place] [address] documented as of this encounter Procedures Procedure Name Priority Date/Time Associated Diagnosis Comments ECG SCAN Routine 08/24/2017 documented in this encounter Results * Scan Doc: ECG (08/24/2017) Historical Provider MD KUMAR MGR SCAN EX T ORDR/RSLT documented in this encounter Visit Diagnoses Not on filedocumented in this encounter Care Teams Contact Center Rep Relationship Specialty Start Date End Date Altaf Hoover MD [address] [place] [address] PCP - General 04/19/11 09/18/17 documented as of this encounter
--- OUTSIDE RECORDS SUMMARY | 2023-11-07 02:30 | XMS_ITS | Encounter Summary ---
[place] [address] Care Team Providers Care Back Hand Name Role Phone Altaf Hoover MD Primary Care Provider [phone] Reason for Visit * Reason Comments Low Back Pain Bilateral Hip Pain Bilateral Leg Pain * Consultation (Routine) - Closed Specialty Diagnoses / Procedures Referred By Contac t Referred To Contact Orthopaedics Diagnoses Chronic left-sided low back pain/ left sciatica/ ask about imaging Altaf Hoover MD [facility] [address] [place] [address] [facility] [place] [address] [place] [address] Referral ID Status Reason Start Date Expiration Date Visits Re quested Visits Authorized [id number] Closed 02/06/2017 02/06/2018 1 1 Encounter Details Date Type Department Care Team (Late st Contact Info) Description 02/08/2017 9:20 AM EST Office [place] [address] Teddy Simental MD [facility] [place] [address] Chronic midline low back pain without sciatica [...] vertebra. MRI is reviewed from 12/15/15 from [facility]. This demonstrates once again findings consistent [...] 10:00 AM EST Office [place] [address] Tania Gates OD [facility] [place] [address] documented as of this encounter Visit Diagnoses Diagnosis Chronic midline low back pain without sciatica documented in this encounter Care Teams Back Hand Relationship Specialty Start Date End Date Altaf Hoover MD [address] [place] [address] PCP - General 04/19/11 09/18/17 documented as of this encounter
--- OUTSIDE RECORDS SUMMARY | 2023-11-07 02:30 | XMS_ITS | Encounter Summary ---
Author Organization [facility] [place] [address] Care Team Providers Care Junior Legal Secretary Name Role Phone Unavailable Primary Care Provider Unavailabl e Encounter Details Date Type Department Care Team (Late st Contact Info) Description 09/21/2017 Ancillary Procedure [place] [address] Robinson Vazquez, HARNESS WORKER [address] [place] [address] Social History Tobacco Use Types Packs/Day Years [...] 10:00 AM EST Office [place] [address] Tania Gates OD [facility] [place] [address] documented as of this encounter Procedures Procedure [...] FILM LIBRARY O RDERABLES Performing Organization Address City/State/[facility] Co de Phone Number [place], [place] documented in this encounter Visit Diagnoses Not on filedocumented in this encounter
--- OUTSIDE RECORDS SUMMARY | 2023-11-07 02:30 | XMS_ITS | Encounter Summary ---
[place] [address] Care Team Providers Care Miller Helper Distillery Name Role Phone Altaf Hoover MD Primary Care Provider [phone] Encounter Details Date Type Department Care Team (Late st Contact Info) Description 08/24/2017 [place] [address] Shereen Talbert MD [facility] DR CRITICAL [place] [address] Social History Tobacco Use Types Packs/Day Years [...] Referring Provider: Dr. Lion Borjas Patient Location: [facility] ED Presenting Symptoms per OSH: 51yoM [...] unless he reaches the threshhold for a director of cath lab alert. Therefore I have accepted the patient [...] 10:00 AM EST Office Visit [place] [address] Tania Gates, [facility] [place] [address] documented as of this encounter Visit Diagnoses Not on filedocumented in this encounter Care Teams Miller [employer]per Distillery Relationship Specialty Start Date End Date Altaf Hoover MD [address] [place] [address] PCP - General 04/19/11 09/18/17 documented as of this encounter
--- OUTSIDE RECORDS SUMMARY | 2023-11-07 02:30 | XMS_ITS | Encounter Summary ---
Author Organization [facility] [place] [address] Care Team Providers Care Network Liaison Name Role Phone Unavailable Primary Care Provider Unavailabl e Encounter Details Date Type Department Care Team (Late st Contact Info) Description 09/27/2018 8:00 AM EDT - 09/27/2018 8:30 AM EDT Surgery [place] [phone] Luc Hdz MD [facility] [place] [address] UPPER GASTROINTESTINAL ENDOSCOPY,WITH BIOPSY SINGLE OR MULTIPLE [...] - 09/27/2018 8:16 AM EDT Please call [phone] before 8pm Mon-Fri with problems, questions or concerns. If you call after 8pm or on weekends, call the Hospital at [phone] and ask to speak to the Critical Care Rn supervisor concrete stone finishing and the instant printer operator will contact that person for you. * Attachments The following attachments cannot be sent through Care Everywhere. * EGD (Upper Endoscopy): Post-op (Hungarian) documented in this encounter Medications at Time [...] 10:00 AM EST Office [place] [address] Tania Gates, [facility] [place] [address] documented as of this encounter Procedures Procedure [...] AM EDT 09/27/2018 8:12 AM EDT Narrative [facility] - 09/27/2018 8:12 AM EDT Specimen requisition ordered. ??Separate Pathology report to follow Luc Hdz MD PATHOLOGY/CYTOLOGY O SAEID Performing Organization Address [facility] [place] [address] * Specimen to Pathology (09/27/2018 8:12 AM EDT) AP Specimen 09/27/2018 8:12 AM EDT 09/27/2018 8:12 AM EDT Narrative [facility] - 09/27/2018 8:12 AM EDT Specimen requisition ordered. ??Separate Pathology report to follow Luc Hdz MD PATHOLOGY/CYTOLOGY O SAEID Performing Organization Address [facility] [place] [address] * Surgical Pathology Report (09/27/2018 8:05 AM EDT) Final Diagnosis [id number] ? Location: 4; EA09; A The signing pathologist has (i) examined the relevant preparation(s) for the specimen(s) and (ii) rendered or confirmed the diagnosis(es). . ?Surgical Pathology DIAGNOSIS A - Duodenum, biopsy: - ??Duodenal mucosa, negative for diagnostic abnormality ??. B - Z line, biopsy: - ??Diaz's esophagus, negative for dysplasia. CR-PX Electronically signed by: ??Rc Mathews MD Verified: ??10/01/2018 ?Pathologist Performed at: ??-[facility] Dept. of Pathology, [place], [place] CLINICAL INFORMATION Specimen Submitted: A - [...] labeled B1-B2. ??ejr 10/01/2018 3:36 PM EDT [facility] GI Biopsy 09/27/2018 8:05 AM EDT 09/27/2018 8:05 AM EDT GI Biopsy 09/27/2018 8:05 AM EDT 09/27/2018 8:05 AM EDT Luc Hdz MD PATHOLOGY/CYTOLOGY O RDLENARD Performing Organization Address City/[facility]/ZIP Co de Phone Number [facility] [place] [address] * POCT Glucose (09/27/2018 7:49 AM EDT) Glucose, POC 124 65 - 199 mg/dL [facility] Comment: Supplemental ranges: <140 mg/dL before meals <180 mg/dL all other times of the day Blood specimen (specimen) 09/27/2018 7:49 AM EDT 09/27/2018 7:49 AM EDT Luc Hdz MD POINT OF CARE TEST O RDERASERGIO Performing Organization Address City/[facility]/ZIP Co de Phone Number [facility] [place] [address] * UPPER GI ENDOSCOPY (09/27/2018 7:40 AM EDT) Pathologist [facility] UPPER GI ENDOSCOPY [facility] Endoscopy Procedure Date: 09/27/2018 7:40 AM ? Patient Name: Samy Patricio ? Date of : 1965 ? Age: 52 ? Order #: [id number] ? Instrument Name: [id number] ? Procedure: ? Upper GI endoscopy Indications: [...] PROVATION 09/27/2018 7:40 AM EDT Abi Lazaro KNITTER OPERATOR GENERAL SURGICAL ORDERABLES PROVATION documented in [...]
--- OUTSIDE RECORDS SUMMARY | 2023-11-07 02:30 | XMS_ITS | Encounter Summary ---
Author Organization [facility] [place] [address] Care Team Providers Care Salvage Engineering Technician Name Role Phone Unavailable Primary Care Provider Unavailabl e Reason for Visit * Reason Comments Diabetic Eye Exam Pseudophakia * Consultation (Routine) - Closed Specialty Diagnoses / Procedures Referred By Contadrian t Referred To Contact Ophthalmology Diagnoses DIABETIC EYE EXAM Abi Lazaro APRN [address] [place] [address] Tania Gates, [facility] [place] [address] Referral ID Status Reason Start Date Expiration Date V isits Requested Visits Authorized [id number] Closed Consult, Test & Treat Connection Center PCP Updated and/or Approved 01/30/2019 01/30/2020 1 1 Encounter Details Date Type Department Care Team (Late st Contact Info) Description 02/08/2019 9:40 AM EST Office [place] [address] Tania Gates, [facility] [place] [address] Diabetic eye exam; Pseudophakia of right eye; [...] Rx given today in polycarbonate and advised hospital unit coordinator wear for eye protection! - Findings and [...] 10:00 AM EST Office [place] [address] Tania Gates, OD [facility] [place] [address] documented as of this encounter Visit Diagnoses Diagnosis Diabetic eye exam Examination of eyes and vision Pseudophakia of right eye Lens replaced by other means Age-related nuclear cataract of left eye Senile nuclear sclerosis History of eye injury Personal history of other injury Astigmatism of both eyes with presbyopia documented in this encounter
--- OUTSIDE RECORDS SUMMARY | 2023-11-07 02:30 | XMS_ITS | Encounter Summary ---
[place] [address] Care Team Providers Care Vocational Case Manager Name Role Phone Unavailable Primary Care Provider Unavailabl e Encounter Details Date Type Department Care Team (Late st Contact Info) Description 10/15/2018 Ancillary Procedure Radiology at [facility] [address] [place] [address] Rosanna Clement MD [address] [place] [address] Social History Tobacco Use Types Packs/Day Years [...] 10:00 AM EST Office [place] [address] Tania Gates OD [facility] [place] [address] documented as of this encounter Procedures Procedure Name Priority Date/Time Associated Diagnosis Comments FILM LIBRARY STORAGE ONLY MR SPINE Routine 10/15/2018 12:00 AM EDT documented in this encounter Results * Film Library- Storage Only MR Spine (10/15/2018 12:00 AM EDT) Narrative [facility] - 10/18/2018 12:20 PM EDT This exam is auto-finalizing. It's purpose is for storage only. Rosanna Clement MD [facility] FILM LIBRARY ORDERABLES [place], [place] documented in this encounter Visit Diagnoses Not on filedocumented in this encounter
--- OUTSIDE RECORDS SUMMARY | 2023-11-07 02:30 | XMS_ITS | Encounter Summary ---
Author Organization [facility] [place] [address] Care Team Providers Care Entry Level Electrical Engineer Name Role Phone Unavailable Primary Care Provider Unavailabl e Encounter Details Date Type Department Care Team (Late st Contact Info) Description 01/28/2019 9:45 AM EST Telephone Pre-Admission Testing at [facility] [address] [place] [address] Social History Tobacco Use Types Packs/Day Years [...] 10:00 AM EST Office [place] [address] Tania Gates OD [facility] [place] [address] documented as of this encounter Visit Diagnoses Not on filedocumented in this encounter
--- OUTSIDE RECORDS SUMMARY | 2023-11-07 02:30 | XMS_ITS | Encounter Summary ---
[place] [address] Care Team Providers Care Lead Data Entry Operator Name Role Phone Sae Marr MD Primary Care Provider [phone] Encounter Details Date Type Department Care Team (Late st Contact Info) Description 08/06/2019 [place] [address] Pramod Arana MD [facility] [place] [address] Social History Tobacco Use Types Packs/Day Years [...] Referring Provider: Dallas Gutierrez MD Patient Location: [facility] Presenting Symptoms per OSH: 53 year old man with a history of CAD, tobacco use, DM2, HLD on atorvastatin presenting to [facility] with inferior STEMI. Had a syncopal episode [...] send out STEMI alert page followed by laboratory associate alert page when he leaves [facility] and bring him to our ED first before the laboratory associate I reconnected with [facility] after the patient was given lytics: -- [...] be coming to our ED first before laboratory associate. Will send out STEMI alert & laboratory associate alert when he leaves [facility] (discussed with Dr. Merino). : [phone] Above recommendations/plans are based on my conversation with the referring provider. I have not personally interviewed or examined this patient. documented in this encounter Plan of Treatment Upcoming Encounters Date Type Department Care Team (Late st Contact Info) Description 03/20/2024 10:00 AM EST Office [place] [address] Tania Gates OD [facility] [place] [address] documented as of this encounter Visit Diagnoses Not on filedocumented in this encounter Care Teams Lead Data Entry Operator Relationship Specialty Start Date End Date Sae Marr MD PCP - General General Internal Medicine 5/ 11/13 documented as of this encounter
--- OUTSIDE RECORDS SUMMARY | 2023-11-07 02:31 | XMS_ITS | Encounter Summary ---
Author Organization [facility] Address [address] [place] [address] Care Team Providers Care Motion Picture Set Up Worker Name Role Phone Sae Marr MD Primary Care Provider [phone] Encounter Details Date Type Department Care Team (Late st Contact Info) Description 05/13/2020 Lab Requisition [facility] Pathology & Laboratory Medicine - [address] [address] Outr Resulting Lab, Provider Social History Tobacco [...] IGA <1.2 <4.0 U/mL 05/18/2020 14:31 EST [facility] Comment: A negative result may be due to IgA deficiency and does not rule out celiac disease. ? Negative: ??<4.0 U/mL ? Weak Positive: ??4.0 - 10.0 U/mL ? Positive: ??>10.0 U/mL Results were obtained with the [employer] QUANTA Lite R h-tTG IgA JAMAL assay on the [employer] DSX. IgA 214 85 - 499 mg/dL 05/18/2020 14:31 EST [facility] Celiac Disease Interpretation Negative Serology. Celiac disease unlikely. Approximately 10% of patients with celiac disease are seronegative. Patients who are already adhering to a gluten-free diet may also be seronegative. If celiac disease is highly clinically suspected, referral to gastroenterology for additional evaluation is recommended. 05/18/2020 14:31 EST [facility] Blood VENOUS BLOOD / Unknown 05/13/2020 8:20 EST 05/13/2020 17:01 EST Provider Outr Resulting Lab IMMUNOLOGY A ND SEROLOGY ORDERABLES [facility] [address] [place] [address] documented in this encounter Visit Diagnoses Not on filedocumented in this encounter Care Teams Motion Picture Set Up Worker Relationship Specialty Start Date End Date Sae Marr MD PCP - General Family Medicine - Primary Care 04/13/20 documented as of this encounter
--- OUTSIDE RECORDS SUMMARY | 2023-11-07 02:31 | XMS_ITS | Encounter Summary ---
Author Organization [facility] Address [address] [place] [address] Care Team Providers Care Managing Manager Name Role Phone Altaf Hoover MD Primary Care Provider [phone] Encounter Details Date Type Department Care Team [...] on filedocumented in this encounter Care Teams Managing Manager Relationship Specialty Start Date End Date Altaf Hoover MD PCP - General 11/12/15 04/12/20 documented as of this encounter
--- OUTSIDE RECORDS SUMMARY | 2023-11-07 02:31 | XMS_ITS | Clinical Summary ---
Author Organization [facility] Address [address] [place] [address] Care Team Providers Care Mixing Place Supervisor Name Role Phone Sae Marr MD Primary Care Provider [phone] Allergies Active Allergy Reactions Criticality Noted Date [...] premature coronary heart disease 02/13/2019 Atypical angina ([place]) 02/13/2019 PUD (peptic ulcer disease) 02/13/2019 H/O heart artery stent 02/13/2019 Smoker 08/25/2017 CARLOTA (obstructive sleep apnea) 08/25/2017 Type 2 diabetes mellitus, wi thout long-term current use of insulin ([place]) 08/25/2017 Hyperlipidemia 08/25/2017 CAITLYN (acute kidney injury) ([place]) 08/25/2017 Diaz's esophagus Resolved Problems Problem Noted Date Diagnosed Date Resolved Date NSTEMI (non-ST elevated myoc ardial infarction) ([place]) 08/25/2017 04/12/2019 Surgical History Surgery Date Site/Laterality Comments CORONARY ANGIOPLASTY WITH STENT PLACEMENT 08/11/2017 - 09/09/2017 N/A LM MLI's. LAD MLI's. LCX 80%. RCA 90%. RCA and LCX EDEN. Medical History Medical History Date Comments COPD (chronic obstructive pulmonary disease) ([facility]) Diaz's esophagus NSTEMI (non-ST elevated myocardial infarction) ( [place]) 08/25/2017 Hyperlipidemia 08/25/2017 Type 2 diabetes mellitus, wi out long-term current use of insulin ([place]) 08/25/2017 PUD (peptic ulcer disease) 02/13/2019 Family [...] GA S ORDERABLES [facility] [address] [place] [address] from Last 3 Months or Most Recently Relevant to Health Maintenance Advance Directives For more information, please contact: [phone] * Full Code (Latest Code Status on File) Date Activated Date Inactivated Comments 08/25/2017 2:36 08/26/2017 15:45 Question Answer Comments Reason for decision includes: Full code consistent with overall plan of care Who participated in the discussion? Not Discusse d Care Teams Mixing Place Supervisor Relationship Specialty Start Date End Date Sae Marr MD PCP - General Family Medicine - Primary Care 04/13/20
--- OUTSIDE RECORDS SUMMARY | 2023-11-07 02:31 | XMS_ITS | Encounter Summary ---
Author Organization [facility] Address [address] [place] [address] Care Team Providers Care Epitaxial Reactor Technician Name Role Phone Derrick Melara MD Primary Care Provider [phone] Encounter Details Date Type Department Care Team (Latest Contact Info) Description 11/09/2015 9:23 EDT - 11/09/2015 23:59 EDT Hospital Encounter [address] [address] Unknown, Provider, Discharge Disposition: Home or Self Care Social History Tobacco Use Types Packs/Day Years Used Date Smoking Tobacco: Never Assessed Sex and Gender Information Value Date Recorded Sex Assigned at Not on file Gender Identity Male 02/16/2019 6:16 EST Sexual Orientation Not on file documented as of this encounter Discharge Disposition Disposition Code Departure Means Destination Home or Self Long Term documented in this encounter Plan of Treatment Not on file documented as of this encounter Visit Diagnoses Not on filedocumented in this encounter Care Teams Epitaxial Reactor Technician Relationship Specialty Start Date End Date Derrick Melara MD [address] [place] [address] PCP - General 09/26/12 11/11/15 documented as of this encounter
--- OUTSIDE RECORDS SUMMARY | 2023-11-07 02:31 | XMS_ITS | Encounter Summary ---
Author Organization [facility] Address [address] [place] [address] Care Team Providers Care Golf Caddy Name Role Phone Sae Marr MD Primary Care Provider [phone] Encounter Details Date Type Department Care Team (Late st Contact Info) Description 04/13/2020 Lab Requisition [facility] Pathology & Laboratory Medicine - [address] [address] Gale Calderon MD [address] [place] [address] [address] [place], [place] [address] Encounter for other general examination Social History [...] X2, BIOPSY: - Hyperplastic polyps. 04/15/2020 11:56 [facility] Attestation By the signature below, the attending physician certifies that they have 1) personally conducted a gross and/or microscopic examination of the described specimen(s), and/or personally interpreted the results of laboratory testing of the described specimen(s), and 2) personally rendered or confirmed the above diagnosis. 04/15/2020 11:56 [facility] at 1156 Clinical History Bloating, GERD, h/o Diaz's, abdominal pain 04/15/2020 11:56 [facility] Gross Description A. Received [...] tissues are submitted intact in G2-G3. Darryn pU 04/14/2020 9:06 04/15/2020 11:56 [facility] Performing Lab [facility] 11:56 [facility] Scanned Images 04/15/2020 11:56 [facility] Tissue DESCENDING COLON STRUCTURE / [...] 22:03 EST Gale Calderon MD PATHOLOGY ORDERA [facility] Organization Address City/State/ZIP Co de Phone Number [facility] [address] [place] [address] documented in this encounter Visit Diagnoses Diagnosis Encounter for other general examination documented in this encounter Care Teams Golf Caddy Relationship Specialty Start Date End Date Sae Marr MD PCP - General Family Medicine - Primary Care 04/13/20 documented as of this encounter
--- OUTSIDE RECORDS SUMMARY | 2023-11-07 02:31 | XMS_ITS | Encounter Summary ---
Author Organization [facility] Address [address] [place] [address] Care Team Providers Care Raw Material Handler Name Role Phone Derrick Melara MD Primary Care Provider [phone] Encounter Details Date Type Department Care Team (Late st Contact Info) Description 11/09/2015 Results Only [facility] [phone] Naomie Blum MD [address] [facility] [address] [place], [place] [id number] Social History Tobacco Use Types Packs/Day Years [...] ? SAMY PATRICIO ? Accession #: ? [id number] ? : ? 1965 (Age: 49) ??M [...] ANTIBODY(CLONE)(BLOC K):RESULT H PYLORI (Rabbit Monoclonal (SP48), [place]) (B1): Negative for definitive microorganisms NOTE: ??One [...] performance characteristics have been determined by [facility]. ??The positive and negative controls worked [...] (ASCP) 11/10/2015 8:56 AM End of Report [facility] 11/09/2015 19:3 7 EDT 11/09/2015 19:37 EDT Naomie Blum MD PATHOLOGY ORDERA [facility] Organization Address City/State/ZIP Co de Phone Number [facility] [address] [place] [address] documented in this encounter Visit Diagnoses Not on filedocumented in this encounter Care Teams Raw Material Handler Relationship Specialty Start Date End Date Derrick Melara MD [address] [place] [address] PCP - General 09/26/12 11/11/15 documented as of this encounter
--- OUTSIDE RECORDS SUMMARY | 2023-11-07 02:31 | XMS_ITS | Encounter Summary ---
Author Organization [facility] Address [address] [place] [address] Care Team Providers Care Industrial Hygenist Name Role Phone Sae Marr MD Primary Care Provider [phone] Encounter Details Date Type Department Care Team (Late st Contact Info) Description 12/19/2022 Lab Requisition [facility] Pathology & Laboratory Medicine - [address] [address] Outr Resulting Lab, Provider Social History Tobacco [...] PSA 1.3 <=3.5 ng/mL 12/20/2022 9:24 EDT [facility] Blood VENOUS BLOOD / Unknown 12/19/2022 9:58 EDT 12/19/2022 21:45 EDT Narrative [facility] - 12/20/2022 9:24 EDT NOTE: Serum PSA concentration should not be interpreted as absolute evidence for the presence or absence of malignant disease. Assayed on Siemens ADVIA Clutch.ioaur XPT using chemiluminescent technology.??Values obtained by using different assay methods cannot be used interchangeably. Provider Outr Resulting Lab CHEMISTRY & BLOOD GAS ORDERABLES [facility] [address] [place] [address] documented in this encounter Visit Diagnoses Not on filedocumented in this encounter Care Teams Industrial Hygenist Relationship Specialty Start Date End Date Sae Marr MD PCP - General Family Medicine - Primary Care 04/13/20 documented as of this encounter
--- OUTSIDE RECORDS SUMMARY | 2023-11-07 02:31 | XMS_ITS | Encounter Summary ---
Author Organization [facility] Address [address] [place] [address] Care Team Providers Care Rabble Furnace Tender Name Role Phone Unavailable Primary Care Provider Unavailabl e Encounter Details Date Type Department Care Team ([facility] Contact Info) Description 11/20/2000 Results Only Used for SCHED Conversion Only Yuliya Crain MD [address] [facility] [address] [place] [address] Social History Tobacco Use Types [...] ? SAMY PATRICIO ? Accession #: ? [id number] ? : ? 1965 (Age: 34) ??M [...] with PAS-D and AFB stains, respectively. ??(Dr. Gomez)/[facility] Document reviewed and electronically signed [...] ??Bisected and entirely submitted as (B). (Dr. Amaro)/[facility] End of Report [facility] 11/20/2000 11/20/2000 12: 11 EDT Yuliya Crain MD PATHOLOGY ORDERABLES [facility] [address] [place] [address] documented in this encounter Visit Diagnoses Not on filedocumented in this encounter
--- OUTSIDE RECORDS SUMMARY | 2023-11-07 02:31 | XMS_ITS | Encounter Summary ---
Author Organization [facility] [place] [address] Care Team Providers Care Continuous Absorption Process Operator Name Role Phone Karen Barbosa MD Primary Care Provider Encounter Details Date Type Department Care Team (Late st Contact Info) Description 06/14/2004 Orders [place] [phone] Chang Chew MD [facility] [place] [address] Social History Tobacco Use Types Packs/Day Years Used Date Smoking Tobacco: Never Assessed [facility] Inpatient Questions Answer Date Recorded [...] 10:00 AM EST Office [place] [phone] Tania Gates, [facility] [place] [address] documented as of this encounter Procedures Procedure Name Priority Date/Time Associated Diagnosis Comments SURGICAL PATHOLOGY REPORT Routine 06/14/2004 4:14 PM EDT documented in this encounter Results * Surgical Pathology Report (06/14/2004 4:14 PM EDT) Surgical Pathology Report [id number] ? Location: The signing pathologist has (i) [...] report in rendering the final pathologic diagnosis. [facility] 06/14/2004 4:14 PM EDT Chang Chew MD PATHOLOGY/CYTOLOGY O SAEID Performing Organization Address City/State/[facility] Co sd Phone Number [facility] documented in this encounter Visit Diagnoses Not on filedocumented in this encounter Care Teams Continuous Absorption Process Operator Relationship Specialty Start Date End Date Karen Barbosa MD [address] [place] [address] PCP - General Family Medicine 10/04/22 documented as of this encounter
--- OUTSIDE RECORDS SUMMARY | 2023-11-07 02:31 | XMS_ITS | Encounter Summary ---
Author Organization [facility] Address [address] [place] [address] Care Team Providers Care Glass Curvature Gauger Name Role Phone Altaf Hoover MD Primary Care Provider [phone] Sea Marr MD Primary Care Provider [phone] Encounter Details Date Type Department Care Team (Late st Contact Info) Description 08/05/2019 Lab Requisition [facility] Pathology & Laboratory Medicine - [facility] [address] [place], [place] [address] Outr Resulting Lab, Provider Social History Tobacco [...] Outr Resulting Lab MICROBIOLOGY - GENERAL ORDERABLES [facility] [address] [place] [address] * COVID-19 TESTING (08/05/2019 11:13 EDT) COVID-19 rt-PCR Result Negative Negative 08/06/2019 3:15 EDT [facility] Comment: This test has [...] history, and epidemiological information. Performed on the [employer] Fusion instrument Performing Lab [facility] 08/06/2019 3:15 EDT [facility] Swab ENTIRE NASOPHARYNX / Unknown 08/05/2019 11:13 EDT 08/05/2019 19:48 EDT Provider Outr Resulting Lab MICROBIOLOGY - GENERAL ORDERABLES [facility] [address] [place] [address] documented in this encounter Visit Diagnoses Not on filedocumented in this encounter Care Teams Glass Curvature Gauger Relationship Specialty Start Date End Date Altaf Hoover MD PCP - General 11/12/15 04/12/20 Sae Marr MD PCP - General Family Medicine - Primary Care 04/13/20 documented as of this encounter
--- OUTSIDE RECORDS SUMMARY | 2023-11-07 02:31 | XMS_ITS | Encounter Summary ---
Author Organization [facility] [place] [address] Care Team Providers Care Director Clinical Operations Name Role Phone Karen Barbosa MD Primary Care Provider Encounter Details Date Type Department Care Team (Late st Contact Info) Description 05/22/2007 Orders [place] [phone] Chang Chew MD [facility] DR [place]STRO[place] [address] Social History Tobacco Use Types Packs/Day Years Used Date Smoking Tobacco: Never Assessed [facility] Inpatient Questions Answer Date Recorded Does [...] 10:00 AM EST Office [place] [phone] Tania Gates, [facility] [place] [address] documented as of this encounter Procedures Procedure Name Priority Date/Time Associated Diagnosis Comments SURGICAL PATHOLOGY REPORT Routine 05/22/2007 2:44 PM EDT documented in this encounter Results * Surgical Pathology Report (05/22/2007 2:44 PM EDT) Surgical Pathology Report [id number] ? Location: 4T The signing pathologist has [...] MD PATHOLOGY/CYTOLOGY O SAEID Performing Organization Address City/State/[facility] Co ny Phone Number [facility] documented in this encounter Visit Diagnoses Not on filedocumented in this encounter Care Teams Director Clinical Operations Relationship Specialty Start Date End Date Karen Barbosa MD [address] [place] [address] PCP - General Family Medicine 10/04/22 documented as of this encounter
--- OUTSIDE RECORDS SUMMARY | 2023-11-07 02:31 | XMS_ITS | Encounter Summary ---
[place] [address] Care Team Providers Care Tonnage Compilation Clerk Name Role Phone Altaf Hoover MD Primary Care Provider [phone] Encounter Details Date Type Department Care Team (Latest Contact Info) Description 04/26/2011 7:32 AM EST - 04/26/2011 10:50 AM EST Hospital En[place] [address] Kirsten Damon MD [facility] DR [place] [address] Discharge Disposition: Home Social History Tobacco Use [...] not get better as expected. Monday-Monday Clinic [phone] 8a-5p Same Day Endo [phone] 7a-8p Otherwise contact [phone] and ask to speak to the cake knocker director of labor relations Follow-up care is a [place] part of [...] 10:00 AM EST Office [place] [address] [address] [facility] [place] [address] documented as of this encounter Procedures Procedure [...] 11:25 AM EST) Surgical Pathology Report ? [facility] ? Provider: ?? KIRSTEN DAMON ?? Pt. Name: ?? GIDEON SMITH, SAMY Oreilly ? Acc #: ?[id number] ?Pt. ? Col Date: ?? 04/26/2011 ? [...] Soft, figueroa tissues. ? Sections/Processing: ??(T2) ? [facility] ? Provider: ?? KIRSTEN DAMON ?? Pt. Name: ?? SAMY PATRICIO JR ? Acc #: ?[id number] ?Pt. ? Col Date: ?? 04/26/2011 ? [...] MD PATHOLOGY/CYTOLOGY O SAEID Performing Organization Address [facility] de Phone Number [facility] * Specimen to Pathology (surgical or derm) (04/26/2011 9:53 AM EST) AP Specimen 04/26/2011 9:53 AM EST 04/26/2011 9:53 AM EST Narrative [facility] - 04/26/2011 9:53 AM EST Specimen requisition ordered. ??Separate Pathology report to follow Kirsten Damon MD PATHOLOGY/CYTOLOGY O SAEID Performing Organization Address [facility] de Phone Number [facility] * Specimen to Pathology (surgical or derm) (04/26/2011 9:53 AM EST) AP Specimen 04/26/2011 9:53 AM EST 04/26/2011 9:53 AM EST Narrative [facility] - 04/26/2011 9:53 AM EST Specimen requisition ordered. ??Separate Pathology report to follow Kirsten Damon MD PATHOLOGY/CYTOLOGY O SAEID Performing Organization Address [facility] de Phone Number [facility] * UPPER GI ENDOSCOPY (04/26/2011 8:42 AM EST) UPPER GI ENDOSCOPY [facility] Endoscopy ___ Patient Name: Samy Patricio ? Procedure Date: 04/26/2011 8:42 AM ? Date of : 1965 ? Age: 45 ? Order #: [id number] ? ___ Procedure: ? Upper GI endoscopy Indications: ? Heartburn, Epigastric abdominal pain Providers: ? Kirsten Damon MD, Masha ? GUILLAUME Johnson, Aiden Iyer, ? Training Generalist Referring MD: ?Altaf Hoover MD Medicines: ? [...] MD POINT OF CARE TEST O RDERABLES [facility] documented in this encounter Visit Diagnoses [...] RN) documented in this encounter Care Teams Tonnage Compilation Clerk Relationship Specialty Start Date End Date Altaf Hoover MD [address] [place] [address] PCP - General 04/19/11 09/18/17 documented as of this encounter
--- OUTSIDE RECORDS SUMMARY | 2023-11-07 02:31 | XMS_ITS | Encounter Summary ---
Author Organization [facility] [place] [address] Care Team Providers Care Macerator Operator Name Role Phone Karen Barbosa MD Primary Care Provider [phone] Encounter Details Date Type Department Care Team (Late st Contact Info) Description 09/14/2005 Orders [place] [phone] Chang Chew MD [facility] [place] [address] Social History Tobacco Use Types Packs/Day Years Used Date Smoking Tobacco: Never Assessed [facility] Inpatient Questions Answer Date Recorded Does Anyone [...] 10:00 AM EST Office [place] [phone] Tania Gates, [facility] [place] [address] documented as of this encounter Procedures Procedure [...] MD PATHOLOGY/CYTOLOGY O RDERASERGIO Performing Organization Address City/State/[facility] Co sd Phone Number NAYELI CHOWDHUR[facility] documented in this encounter Visit Diagnoses Not on filedocumented in this encounter Care Teams Macerator Operator Relationship Specialty Start Date End Date Karen Barbosa MD [address] [place], [place] [address] [place] [address] PCP - General Family Medicine 10/04/22 documented as of this encounter
--- OUTSIDE RECORDS SUMMARY | 2023-11-07 02:31 | XMS_ITS | Encounter Summary ---
Author Organization [facility] Address [address] [place] [address] Care Team Providers Care Manager Inventory Management Name Role Phone Sae Marr MD Primary Care Provider Encounter Details Date Type Department Care Team (Late st Contact Info) Description 05/11/2023 Lab Requisition [facility] Pathology & Laboratory Medicine - [address] [address] Chang Martel MD [address] [place] [phone] Polyp of colon Social History Tobacco Use [...] explore management options, if applicable. 05/12/2023 14:31 [facility] Final Diagnosis A. STOMACH, [...] X2, BIOPSY: - Hyperplastic polyp. 05/12/2023 14:31 [facility] Attestation By the signature below, the attending physician certifies that they have 1) personally conducted a gross and/or microscopic examination of the described specimen(s), and/or personally interpreted the results of laboratory testing of the described specimen(s), and 2) personally rendered or confirmed the above diagnosis. 05/12/2023 14:31 [facility] at 1431 Clinical History GERD, Diaz's esophagus, hx colon polyps, hiatal hernia, rectal polyps 05/12/2023 14:31 [facility] Gross Description A. Received [...] G1. ISABELLE CASAS(ASCP) 05/11/2023 17:58 05/12/2023 14:31 [facility] Performing Lab [facility] 05/12/2023 14:31 [facility] Scanned Images 05/12/2023 14:31 [facility] Tissue SPECIMEN FROM RECTUM [...] Martel MD PATHOLOGY ORDERABLES Performing Organization Address City/State/[facility] Co de Phone Number [facility] [address] [place] [address] documented in this encounter Visit Diagnoses Diagnosis Polyp of colon Benign neoplasm of colon documented in this encounter Care Teams Manager Inventory Management Relationship Specialty Start Date End Date Sae Marr MD PCP - General Family Medicine - Primary Care 04/13/20 documented as of this encounter
--- OUTSIDE RECORDS SUMMARY | 2023-11-07 02:31 | XMS_ITS | Encounter Summary ---
Author Organization [facility] Address [address] [place] [address] Care Team Providers Care Internal Audit Consultant Name Role Phone Snehal Maravilla MD Primary Care Provider [phone] Encounter Details Date Type Department Care Team (Late st Contact Info) Description 08/23/2016 Results Only [facility] [phone] Naomie Blum MD [address] [place] [address] [address] [place], [place] [id number] Social History Tobacco Use Types Packs/Day Years [...] ? SAMY PATRICIO ? Accession #: ? [id number] ? : ? 1965 (Age: 50) ??M [...] (ASCP) 08/24/2016 11:08 AM End of Report [facility] 08/23/2016 19:2 6 EDT 08/23/2016 19:26 EDT Naomie Blum MD PATHOLOGY ORDERA SERGIO [facility] [address] [place] [address] documented in this encounter Visit Diagnoses Not on filedocumented in this encounter Care Teams Internal Audit Consultant Relationship Specialty Start Date End Date Snehal Maravilla MD PCP - General 11/12/15 04/12/20 documented as of this encounter
--- OUTSIDE RECORDS SUMMARY | 2023-11-07 02:31 | XMS_ITS | Encounter Summary ---
Author Organization [facility] Address [address] [place] [address] Care Team Providers Care Horticultural Farmworker Name Role Phone Sae Marr MD Primary Care Provider [phone] Encounter Details Date Type Department Care Team (Late st Contact Info) Description 06/22/2022 Lab Requisition [facility] Pathology & Laboratory Medicine - [address] [address] Outr Resulting Lab, Provider Social History Tobacco [...] 10 See Note ug/dL 06/22/2022 17:49 EDT [facility] Comment: NOTE: Reference Ranges (from OCD IFU): Collected Before 10:00 AM: ??4 - 23 ug/dL Collected After 5:00 PM: ?2 - 14 ug/dL The results of this assay can be falsely elevated due to the consumption of Biotin. Blood VENOUS BLOOD / Unknown 06/22/2022 8:31 EDT 06/22/2022 17:03 EDT Provider Outr Resulting Lab CHEMISTRY & BLOOD GAS ORDERABLES [facility] [address] [place] [address] documented in this encounter Visit Diagnoses Not on filedocumented in this encounter Care Teams Horticultural Farmworker Relationship Specialty Start Date End Date Sae Marr MD PCP - General Family Medicine - Primary Care 04/13/20 documented as of this encounter
--- OUTSIDE RECORDS SUMMARY | 2023-11-07 02:31 | XMS_ITS | Encounter Summary ---
Author Organization [facility] Address [address] [place] [address] Care Team Providers Care Print Color Matcher Name Role Phone Unavailable Primary Care Provider Unavailabl e Encounter Details Date Type Department Care Team (Latest Contact Info) Description 02/12/2001 12:14 EST Hospital Encounter [facility] - Other [address] [place] [address] Jp Scherer MD Unknown, Provider, Discharge Disposition: [...] BLOOD GA S ORDERABLES Performing Organization Address [facility] Co de Phone Number [facility] [address] [place] [address] * HEPATITIS C ANTIBODY (02/12/2001 16:37 EST) Hepatitis C Ab Neg [facility] 02/12/2001 16:3 7 EST 02/12/2001 17:35 EST Jp Scherer MD CHEMISTRY & BLOOD GA S ORDERABLES Performing Organization Address [facility] Co de Phone Number [facility] [address] [place] [address] * HEPATITIS B CORE ANTIBODY (02/12/2001 16:37 EST) Hep B Core Ab Neg [facility] 02/12/2001 16:3 7 EST 02/12/2001 17:35 EST Jp Scherer MD CHEMISTRY & BLOOD GA S ORDERABLES Performing Organization Address [facility] Co de Phone Number [facility] [address] [place] [address] * HEPATITIS B SURFACE ANTIGEN (02/12/2001 16:37 EST) Hepatitis B Surface Ag Neg [facility] 02/12/2001 16:3 7 EST 02/12/2001 17:35 EST Jp Scherer MD CHEMISTRY & BLOOD GA S ORDERABLES Performing Organization Address City/[facility]/ZIP Co de Phone Number [facility] [address] [place] [address] * HEPATITIS B SURFACE ANTIBODY (02/12/2001 16:37 EST) Hepatitis B Surface Ab Neg [facility] 02/12/2001 16:3 7 EST 02/12/2001 17:35 EST Jp Scherer MD CHEMISTRY & BLOOD GA S ORDERABLES Performing Organization Address City/[facility] Co de Phone Number [facility] [address] [place] [address] * (ABNORMAL) HEMAGRAM & DIFF (02/12/2001 16:37 [...] S Q LOAD [facility] [address] [place] [address] documented in this encounter Visit Diagnoses Not on filedocumented in this encounter
--- OUTSIDE RECORDS SUMMARY | 2023-11-07 02:31 | XMS_ITS | Encounter Summary ---
Author Organization [facility] Address [address] [place] [address] Care Team Providers Care Continuous Improvement Coach Name Role Phone Altaf Hoover MD Primary Care Provider [phone] Reason for Referral * Consult (Routine) - New Request Specialty Diagnoses / Procedures Referred By Contadrian t Referred To Contact Diagnoses NSTEMI (non-ST elevated myocardial infarction) ([facility]) Timothy Medel PA-C [address] [place] [phone] Jg Stubbs MD [address] [place] [phone] Referral ID Status Reason Start Date Expiration Date Visits Requested Visits Authorized [id number] New Request Specialty Services Required 08/25/2017 1 1 Question Answer Reason for Request: cad Expected Discharge Date (Inpatient Only): 08/26/2017 Practice Site (External Referral Only): [facility] * Consult (Routine) - Closed Specialty Diagnoses / Procedures Referred By Contac t Referred To Contact Diagnoses NSTEMI (non-ST elevated myocardial infarction) ([facility]) Timothy Medel PA-C [address] [place] [phone] Referral ID Status Reason Start Date Expiration Date V isits Requested Visits Authorized [id number] Closed Specialty Services Required 08/25/2017 1 1 Question Answer Reason for Request: cad Expected Discharge Date (Inpatient Only): 08/26/2017 Practice Site (External Referral Only): [facility] * Follow Up (Routine) - New Request Specialty Diagnoses / Procedures Referred By Contac t Referred To Contact Diagnoses NSTEMI (non-ST elevated myocardial infarction) ([facility]) Timothy Medel PA-C [address] [phone] Referral ID Status Reason Start Date Expiration Date Visits Requested Visits Authorized [id number] New Request Continuity of Care 08/25/2017 1 1 Question Answer Reason for Request: cad Expected Discharge Date (Inpatient Only): 08/26/2017 Reason for Visit * Reason Comments Chest Pain pt presents from [facility] for NSTEMI. pt CP began at 1400. 1st trop .03, 2nd trop .98. CXR neg. a nitro drip was initiated at 15 mcg/min. heparin drip started at 6093-0822 units/hr with a 4000 unit bolus. pt recieved 4 mg zofran as well. OA pt appears in NAD, VSS, pain is 1/10 described as mostly pressure. Encounter Details Date Type Department Care Team (Late st Contact Info) Description 08/25/2017 1:14 EDT - 08/26/2017 13:38 EDT Hospital Encounter [facility] Cardiac/Telemetry Unit [address] [place] [address] Bella Solomon MD [address] [phone] Kerri Stein MD MPH [address] [phone] Chang Garduno MD 111 [facility], Level [address] [place] [address] NSTEMI (non-ST elevated myocardial infarction) ([facility]) (Primary Dx) Discharge Disposition: Home or Self [...] failure, unspecified-N17.9[ICD-10-CM] I25.10 Atherosclerotic heart disease of [place] coronary artery without angina pectoris-I25.10[ICD-10-CM] F17.210 Nicotine dependence, cigarettes, uncomplicated-F17.210[ICD-10-CM] G47.33 Obstructive sleep apnea (adult) (pediatric)-G47.33[ICD-10-CM] E78.5 Hyperlipidemia, unspecified-E78.5[ICD-10-CM] E11.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-E11.22[ICD-10-CM] N18.9 Chronic kidney disease, unspecified-N18.9[ICD-10-CM] Z82.49 Family history of ischemic heart disease and other diseases of the circulatory system-Z82.49[ICD-10-CM] Z79.84 longterm (current) use of oral hypoglycemic drugs-Z79.84[ICD-10-CM] documented in this encounter Discharge Summaries * Violet Moreno DO - 08/26/2017 1338 EDT Cardiology Discharge Summary Primary Care Provider: Altaf Hoover Attending Physician: JP MOODY MD Admit Date: 08/25/2017 Discharge Date: 08/26/2017 Disposition: Home or self care Problems and Procedures Admitting Diagnosis: NSTEMI (non-ST elevated myocardial infarction) ([facility]) Final Hospital Diagnosis: NSTEMI, type I Additional Problems Managed in the Hospital Active Hospital Problems Diagnosis Date Noted ??? *NSTEMI (non-ST elevated myocardial infarction) ([facility]) 08/25/2017 ??? Tobacco abuse 08/25/2017 ??? CARLOTA (obstructive sleep apnea) 08/25/2017 ??? Type 2 diabetes mellitus, without long-term current use of insulin ([facility]) 08/25/2017 ??? Hyperlipidemia 08/25/2017 ??? CAITLYN (acute kidney injury) ([facility]) 08/25/2017 Resolved Hospital Problems Diagnosis Date Noted Date Resolved No resolved problems to display. Principal Procedure: [facility] (08/25/2017) Left main: Free of angiographically [...] pack/yr hx) and strong family history of NV (brother 40's,mother 50's, father 60's) with no personal prior cardiac history who was transferred from [facility]. ?? At [facility] he was noted to be hemodynamically stable. An EKG was done which showed TW flattening in III, aVF without significant ST changes. Pain was relieved temporarily with SL NTG x1. He was loaded with ASA, plavix, given metoprolol, and started on heparin gtt with bolus. At [facility], pain continued requiring nitro gtt and dilaudid. [...] BiPAP compliance - Improved glycemic control. Given NV, consider starting insulin - PCP and cardiology [...] 08/24/2017 Discharge Follow Up Appointments Scheduled with [facility] Appointments Outside of [facility] We Will Schedule Follow-up appointments and procedures Amb Consult/Follow Up Cardiac Rehabilitation Reason for Request: cad Expected Discharge Date (Inpatient Only): 08/26/2017 Practice Site (External Referral Only): [facility] Authorizing Provider: Timothy Medel PA Amb Consult/Follow Up Cardiology Reason for Request: cad Expected Discharge Date (Inpatient Only): 08/26/2017 Practice Site (External Referral Only): [facility] Authorizing Provider: Timothy Medel PA Amb [...] up has been requested with [facility] at [facility]. * Adan Sadler MD - 08/25/2017 1516 EDT Brief Cardiology Progress Note CC: Chest Pain ID: Samy is a 51 yo male with DMI, CKD, CARLOTA (non-compliant with BiPAP), tobacco abuse (current 2 PPD with >80 pack/yr hx), and strong family history of NV (brother 40's, mother 50's, father 60's) withno personal prior who was transferred from [facility] for NSTEMI type I. Noted to be HD stable at [facility]. EKG showed TW flattening in III, aVF without significant ST changes. Pain was relieved temporarily with SL NTG x1. He was loaded with ASA, plavix, given metoprolol, and started on heparin gtt with bolus. At [facility], pain continued requiring nitro gtt and dilaudid. [...] Erika Roland MD - 08/25/2017 0131 EDT Linux Systems Engineer Addendum (please see sports marketing internship/resident H&P for full details) 51yo M with DM2, HLD, CKD, current 2 ppd smoker (>80 pack-year history), strong family history of NV (brother in 40s, mother in 50s, father 60s) but no personal prior cardiac history who was transferred from [facility] for NSTEMI. Few nights ago chest pressure woke him from sleep but no further episodes with exertion or at rest until today at 2PM he developed central chest pressure with SOB and diaphoresis. On arrival to [facility] ED SL NTG x1 relieved pain completely [...] no significant ST changes. On arrival to [facility], afebrile, HR 60-70s, BP 110-120s/80s, 99% on RA. ECG sinus rhythm no ischemic findings. Trop 7.39, Cr 1.03, Hgb 13.8, plt 234, INR 1. Still having 2-3/10 chest pressure but only ty06bef/min nitro gtt. Increased gtt to 75mcg/min with [...] formal TTE in morning Erika Roland, PGY-4 Linux Systems Engineer Pager #[phone] documented in this encounter H&P Notes * Nathaniel Greene MD - 08/25/2017 0250 EDT Date of Service: 08/25/2017 Admit Date : 08/25/2017 Subjective: Chief Complaint: Chest pain Mr Patricio is a 51 yo with a history significant for DMII, HLD, tobacco use (80 pack year history), and fhx of early onset CAD who presents as an ED to ED transfer from [facility] after initially presenting there earlier in the [...] intensity after receiving nitroglycerin and opioids. At [facility] ED initial workup was notable for creatinine [...] nitro drip. He was then transferred to [facility] ED for further evaluation. Workup here is notable for troponin of 7.4, an improvement of creatinine to 1.0. Otherwise BMP, calcium, magnesium, CBC, and INR are unremarkable. Repeat EKG is unchanged. Family history: Remarkable for early onset CAD in father and brother Social history: 65-esak-jrcn history, drinks a few pints of white Russians on Monday and Monday night Patient Active Problem List Diagnosis Date Noted ??? NSTEMI (non-ST elevated myocardial infarction) ([facility]) 08/25/2017 Priority: Medium Past Medical History: Diagnosis Date ??? Diaz's esophagus ??? COPD (chronic obstructive pulmonary disease) ([facility]) History reviewed. No pertinent surgical history. 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 Greene. Xavier Deluca MD documented in this encounter Procedure Notes * Vamshi Lawson Jr., MD - 08/25/2017 5694 EDT Cardiovascular Catheterization Laboratory Preliminary Report -- [...] artery Procedure: He was brought to [facility] Cardiac Catheterization Laboratory for the procedure: Diagnostic [...] presents to the ED via transfer from [facility] with NSTEMI. Patient initially began experiencing chest [...] pending. 00:45 Paged cardiology. Discussed patient with weather clerk. She will discuss more urgent catheterization pending [...] tube(s) sent to lab per order for [facility]. * Armaan Gonzalez - 08/25/2017 0017 EDT 12 Lead EKG Performed by ARMAAN GONZALEZ and shown to Bella Solomon MD. * Belle Villar RN - 08/25/2017 0015 EDT 12 Lead EKG Performed by BELLE VILLAR RN and shown to Bella Solomon MD. * Leoncio Uribe - 08/24/2017 4812 EDT MD Solomon aware Trop 7.390 at 0000 (JM) * Belle Villar RN - 08/24/2017 2342 EDT According to EMS and patient. Pt was at [facility] for chest pain with associated SOB that began at 1400, 10/10 pain. Pt pain was effectively managed with one dose of SL nitro. At OSH his first troponin was .03, EKG NSR, second trop .98, transferred here on nitro drip and heparin drip. Pt appears in NADOA. Pain 1/10. Family is at the bedside. On cardiac sonographer. VSS. Will CTM. * Bella Solomon MD - 08/24/2017 9026 EDT DOS: 08/24/2017 Chief Complaint Patient presents with ??? Chest Pain pt presents from [facility] for NSTEMI. pt CP began at 1400. 1st trop .03, 2nd trop .98. CXR neg. a nitro drip was initiated at 15 mcg/min. heparin drip started at 4878-1734 units/hr with a 4000 unit bolus. pt [...] the ED via EMS asa transfer from [facility] for cardiology consult for NSTEMI. The patient [...] ED via EMS as a transfer from [facility] for cardiology consult for NSTEMI. 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 2310- I paged the weather clerk. 2341- I repaged cardiology. 2355- The patient's nurse reports his chest pain is coming back. The patient's nitro drip was restarted. The patient had a repeat EKG that was unchanged from prior. Patient had labs that were reviewed independently by myself, significant for troponin elevated at 7.390. 0015- I spoke with the ANC in the ED, who contacted the weather clerk. The patient was signed out to Dr. [...] the Emergency Department: Serious PCP: Altaf Hoover [facility] This documentation is recorded by Lynn Sanchez [...] Referral Routine NSTEMI (non-ST elevated myocardial infarction) ([facility]) Ordered: 08/25/2017 AMB CONS/FOLLOW UP CARDIAC REHABILITATION Outpatient Referral Routine NSTEMI (non-ST elevated myocardial infarction) ([facility]) Ordered: 08/25/2017 AMB CONS/FOLLOW UP CARDIOLOGY Outpatient Referral Routine NSTEMI (non-ST elevated myocardial infarction) ([facility]) Ordered: 08/25/2017 documented as of this [...] EDT) 08/31/2017 14:2 9 EDT Scan 2 Reception Manager PROCEDURE/MINOR STEFAN GICAL ORDERABLES * ECG REPORT - SCANNED (08/30/2017 13:52 EDT) 08/30/2017 13:5 2 EDT Scan 2 Reception Manager PROCEDURE/MINOR STEFAN GICAL ORDERABLES * (ABNORMAL) GLUCOSE, GLUCOMETER (08/26/2017 7:32 EDT) Glucose, Fingerstick 185(H) 70 - 100 mg/dl 08/26/2017 11:[address] [facility] Spike [place] ID [id number] 08/26/2017 11:[address] [facility] Comment:Test Performed by Nu ing Services BLOOD SPECIMEN / Unknown 08/26/2017 7:32 EDT 08/26/2017 11:28 EDT Chang Garduno MD CHEMISTRY & BLOOD G ORDERABLES Performing Organization Address City/[facility]/ZIP Co de Phone Number [facility] [address] [place] [address] * MAGNESIUM (08/26/2017 5:29 EDT) Magnesium 2.1 1.7 - 2.8 mg/dl 08/26/2017 6:[address] [facility] Blood specimen (specimen) BLOOD SPECIMEN / Unknown 08/26/2017 5:29 EDT 08/26/2017 6:18 EDT Adan Sadler MD CHEMISTRY & BLOOD GA S ORDERABLES Performing Organization Address City/[facility]/ZIP Co de Phone Number [facility] [address] [place] [address] * CREATININE (08/26/2017 5:29 EDT) Creatinine 0.97 0.66 - 1.25 mg/dl 08/26/2017 6:[address] [facility] GFR, Calculated 91 >60 ml/min/1.7 3m2 08/26/2017 6:[address] [facility] Comment: eGFR calculated using CKD-EPI equation for non Americans. Multiply eGFR by 1.16 for Americans. Blood specimen (specimen) BLOOD SPECIMEN / Unknown 08/26/2017 5:29 EDT 08/26/2017 6:18 EDT Nathaniel Grenee MD CHEMISTRY & BLOOD GAS ORDERABLES Performing Organization Address [facility] de Phone Number [facility] [address] [place] [address] * BUN (08/26/2017 5:29 EDT) BUN 16 10 - 26 mg/dl 08/26/2017 6:[address] [facility] Blood specimen (specimen) BLOOD SPECIMEN / Unknown 08/26/2017 5:29 EDT 08/26/2017 6:18 EDT Nathaniel Greene MD CHEMISTRY & BLOOD GAS ORDERABLES Performing Organization Address [facility] de Phone Number [facility] [address] [place] [address] * (ABNORMAL) ELECTROLYTES (08/26/2017 5:29 EDT) Sodium 135(L) 136 - 145 mEq/L 08/26/2017 6:[address] [facility] Potassium 4.2 3.5 - 5.0 mEq/L 08/26/2017 6:[address] [facility] Chloride 105 96 - 110 mEq/L 08/26/2017 6:[address] [facility] CO2 25 22 - 32 mEq/L 08/26/2017 6:[address] [facility] Blood specimen (specimen) BLOOD SPECIMEN / Unknown 08/26/2017 5:29 EDT 08/26/2017 6:18 EDT Nathaniel Greene MD CHEMISTRY & BLOOD GAS ORDERABLES Performing Organization Address City/[facility] Co de Phone Number [facility] [address] [place] [address] * COMPLETE BLOOD COUNT (08/26/2017 5:29 EDT) WBC 7.13 4.0 - 10.4 K/cmm 08/26/2017 6:[address] [facility] RBC 4.58 4.36 - 5.78 M/cmm 08/26/2017 6:[address] [facility] Hemoglobin 14.3 13.8 - 17.3 gm/dl 08/26/2017 6:[address] [facility] HCT 40.4 39.5 - 50.2 % 08/26/2017 6:[address] [facility] MCV 88 81 - 95 fl 08/26/2017 6:[address] [facility] MCH 31.2 27.6 - 33.0 pg 08/26/2017 6:[address] [facility] MCHC 35.4 32.8 - 36.4 gm/dl 08/26/2017 6:[address] [facility] RDW-CV 12.0 <14.2 % 08/26/2017 6:27 [facility] RDW-SD 38.7 <46.0 fl 08/26/2017 6:27 [facility] PLT 195 141 - 377 K/cmm 08/26/2017 6:27 [facility] MPV 10.4 9.5 - 12.7 fl 08/26/2017 6:27 [facility] Blood specimen (specimen) BLOOD SPECIMEN / Unknown 08/26/2017 5:29 EDT 08/26/2017 6:18 EDT Nathaniel Greene MD HEMATOLOGY & PF4 O RDERABLES [facility] [address] [place] [address] * LIPID PROFILE (INCLUDES CHOLESTEROL, TRIGLYCERIDES, HDL, LDL) (08/26/2017 5:29 EDT) Cholesterol 116 mg/dl 08/26/2017 6:56 [facility] Comment: Desirable:<200 Borderline High:200-239 High:>pr=726 Triglycerides 132 mg/dl 08/26/2017 6:56 [facility] Comment: Normal:<150 Borderline High:150-199 High:200-499 Very High:>hr=044 HDL 37 mg/dl 08/26/2017 6:56 [facility] Comment: Low:<40 Normal:40-60 Desirable: >60 LDL, Calculated 53 mg/dl 8 6:56 [facility] Comment: Optimal:<100 Near Optimal:100-129 Borderline High:130-159 High:160-189 Very High:>gn=593 Chol/HDL Ratio 3.1 08/26/2017 6:56 [facility] Fasting? Unknown 08/26/2017 6:56 [facility] Non HDL Cholesterol 79 mg/dl 08/26/2017 6:56 [facility] Comment: Desirable:<130 Borderline:130-159 High: 160-189 Very High: >rz=647 Blood specimen (specimen) BLOOD SPECIMEN / Unknown 08/26/2017 5:29 EDT 08/26/2017 6:18 EDT Nathaniel Greene MD CHEMISTRY & BLOOD GAS ORDERABLES Performing Organization Address City/[facility] Co de Phone Number [facility] [address] [place] [address] * (ABNORMAL) GLUCOSE, GLUCOMETER (08/25/2017 21:52 EDT) Glucose, Fingerstick 238(H) 70 - 100 mg/dl 08/25/2017 21:[address] [facility] Spike Maker ID [id number] 08/25/2017 21:[address] [facility] Comment:Test Performed by [facility] BLOOD SPECIMEN / Unknown 08/25/2017 21:52 EDT 08/25/2017 21:55 EDT Chang Garduno MD CHEMISTRY & BLOOD G ORDERABLES [facility] [address] [place] [address] * (ABNORMAL) GLUCOSE, GLUCOMETER (08/25/2017 17:12 EDT) Glucose, Fingerstick 197(H) 70 - 100 mg/dl 08/25/2017 17:[address] [facility] Spike Maker ID [id number] 08/25/2017 17:[address] [facility] Comment:Test Performed by [facility] BLOOD SPECIMEN / Unknown 08/25/2017 17:12 EDT 08/25/2017 17:17 EDT Chang Garduno MD CHEMISTRY & BLOOD G ORDERABLES Performing Organization Address [facility]/ZIP Co de Phone Number [facility] [address] [place] [address] * PROTEIN/CREATININE RATIO, URINE (08/25/2017 15:20 EDT) Tot Prot,Ur Random 5 mg/dl 08/25/2017 16:[address] [facility] Creatinine, Urn [place] 117.0 mg/dl 08/25/2017 16:[address] [facility] UPRO mg/mg Cr, Ur 0.04 <0.11 mg/mg Crea 08/25/2017 16:[address] [facility] Urine specimen (specimen) URINE / Unknown 08/25/2017 15:20 EDT 08/25/2017 16:07 EDT Adan Sadler MD URINALYSIS ORDERABLE S Performing Organization Address [facility]/ZIP Co de Phone Number [facility] [address] [place] [address] * (ABNORMAL) GLUCOSE, GLUCOMETER (08/25/2017 11:36 EDT) Glucose, Fingerstick 220(H) 70 - 100 mg/dl 08/25/2017 11:[address] [facility] Spike Maker ID [id number] 08/25/2017 11:[address] [facility] Comment:Test Performed by [facility] BLOOD SPECIMEN / Unknown 08/25/2017 11:36 EDT 08/25/2017 11:41 EDT Chang Garduno MD CHEMISTRY & BLOOD G ORDERABLES Performing Organization Address [facility] de Phone Number [facility] [address] [place] [address] * (ABNORMAL) TROPONIN I (08/25/2017 10:50 EDT) Pathologist [facility] Troponin I (ng/mL) 8.520(H) <0.034 ng/ml 08/25/2017 11:[address] [facility] Comment: The results of this assay can be falsely lowered due to the consumption of Biotin. Blood specimen (specimen) BLOOD SPECIMEN / Unknown 08/25/2017 10:50 EDT 08/25/2017 11:20 EDT Nathaniel Greene MD CHEMISTRY & BLOOD GAS ORDERABLES Performing Organization Address [facility] de Phone Number [facility] [address] [place] [address] * LEFT HEART CATH (08/25/2017 9:54 EDT) Anatomical Region Laterality Modality Other 08/25/2017 9:54 EDT Narrative 08/28/2017 15:36 EDT Cardiology [address] [place] [address] Catheterization Laboratory Study Patient: Samy Patricio ?Study Date: ?08/25/2017 ? Accession #: ? [id number] : ? 1965 Referring: Altaf Hoover Diagnostic [...] Right radial artery access. A 6 Fr/10/.021 [place] Sheath SLENDER ?? sheath was advanced into [...] Vamshi Lawson Jr., MD - 08/28/[address] [place] [address] Catheterization Laboratory Study Patient: Samy Patricio Study [...] Right radial artery access. A 6 Fr/10/.021 [place] Sheath SLENDER sheath was advanced into the [...] Narrative 08/25/2017 9:40 EDT *Interpreting Group:* *[facility]* [address] [place] [address] Date of study: 08/25/2017 Transthoracic Echocardiography M-mode, [...] time: ??08:30 AM. ADMITTING ?Chang Garduno MD ACADEMIC ADMINISTRATOR ??Nathaniel Blackwood SPENSER REFERRING ?Altaf Hoover ATTENDING ?Kerri Stein FELLOW ? Franco Moon MD PERFORMING ?? [facility] ORDERING ? Nathaniel Greene. *PROCEDURE DATA* Procedure information: ??The patient was identified by two identifiers. This study was interpreted by [facility] Cardiology. Pertinent images and digital data are archived for permanent storage and are available for subsequent review. ??Study status: Routine. Transthoracic echocardiography. ??M-mode, complete 2D, complete spectral Doppler, and color Doppler. A Transthoracic Echocardiogram was performed. Scanning was performed from the parasternal, apical, subcostal, and suprasternal notch acoustic windows. Images were obtained using an Aptela 15 cardiac ultrasound machine. Image quality was suboptimal. The study was technically limited due to poor acoustic window availability and body habitus. Intravenous contrast (Definity) was administered by Nathaniel HUNTER [facility] to enhance delineation of left ventricular endocardial [...] Greene MD - 08/25/2017 *Interpreting Group:* *[facility] Cardiology* [address] [id number] Date of study: 08/25/2017 Transthoracic Echocardiography M-mode, [...] time: 08:30 AM. ADMITTING Chang Garduno MD ACADEMIC ADMINISTRATOR Nathaniel Blackwood RDCS REFERRING Altaf Hoover ATTENDING Kerri Stein FELLOW Franco Moon MD PERFORMING [facility] ORDERING Nathaniel Greene *PROCEDURE DATA* Procedure information: The patient was identified by two identifiers. This study was interpreted by [facility] Cardiology. Pertinent images and digital data are archived for permanent storage and are available for subsequent review. Study status: Routine. Transthoracic echocardiography. M-mode, complete 2D, complete spectral Doppler, and color Doppler. A Transthoracic Echocardiogram was performed. Scanning was performed from the parasternal, apical, subcostal, and suprasternal notch acoustic windows. Images were obtained using an TopOPPSq 15 cardiac ultrasound machine. Image quality was suboptimal. The study was technically limited due to poor acoustic window availability and body habitus. Intravenous contrast (Definity) was administered by Nathaniel HUNTER, [facility] to enhance delineation of left ventricular endocardial [...] 70 - 100 mg/dl 08/25/2017 6:[address] [facility] S[place] [id number] 08/25/2017 6:[address] [facility] Comment:[facility] BLOOD SPECIMEN / Unknown 08/25/2017 6:45 EDT 08/25/2017 6:48 EDT Chang Garduno MD CHEMISTRY & BLOOD G ORDERABLES Performing Organization Address City/[facility] Co de Phone Number [facility] [address] [place] [address] * CREATININE (08/25/2017 6:30 EDT) Creatinine 1.00 0.66 - 1.25 mg/dl 08/25/2017 7:[address] [facility] GFR, Calculated 87 >60 ml/min/1.7 3m2 08/25/2017 7:[address] [facility] Comment: eGFR calculated using CKD-EPI equation for non Americans. Multiply eGFR by 1.16 for Americans. Blood specimen (specimen) BLOOD SPECIMEN / Unknown 08/25/2017 6:30 EDT 08/25/2017 6:52 EDT Nathaniel Greene MD CHEMISTRY & BLOOD GAS ORDERABLES Performing Organization Address City/[facility] Co de Phone Number [facility] [address] [place] [address] * BUN (08/25/2017 6:30 EDT) BUN 16 10 - 26 mg/dl 08/25/2017 7:[address] [facility] Blood specimen (specimen) BLOOD SPECIMEN / Unknown 08/25/2017 6:30 EDT 08/25/2017 6:52 EDT Nathaniel Greene MD CHEMISTRY & BLOOD GAS ORDERABLES Performing Organization Address [facility] Co de Phone Number [facility] [address] [place] [address] * ELECTROLYTES (08/25/2017 6:30 EDT) Sodium 137 136 - 145 mEq/L 08/25/2017 7:[address] [facility] Potassium 4.7 3.5 - 5.0 mEq/L 08/25/2017 7:[address] [facility] Chloride 105 96 - 110 mEq/L 08/25/2017 7:[address] [facility] CO2 26 22 - 32 mEq/L 08/25/2017 7:[address] [facility] Blood specimen (specimen) BLOOD SPECIMEN / Unknown 08/25/2017 6:30 EDT 08/25/2017 6:52 EDT Nathaniel Greene MD CHEMISTRY & BLOOD GAS ORDERABLES Performing Organization Address [facility] de Phone Number [facility] [address] [place] [address] * HEPARIN LEVEL - UNFRACTIONATED HEPARIN (08/25/2017 6:30 EDT) Heparin Level-UFH 0.48 IU/mL 018 7:[address] [facility] Comment: Unfractionated heparin therapeutic range [...] & PF4 O RDERABLES Performing Organization Address City/[facility] Co de Phone Number [facility] [address] [place] [address] * (ABNORMAL) TROPONIN I (08/25/2017 2:58 EDT) [facility] Troponin I (ng/mL) 12.400(H) <0.034 ng/ml 08/25/2017 3:[address] [facility] Comment: The results of this assay can be falsely lowered due to the consumption of Biotin. Blood specimen (specimen) BLOOD SPECIMEN / Unknown 08/25/2017 2:58 EDT 08/25/2017 3:03 EDT Nathaniel Greene MD CHEMISTRY & BLOOD GAS ORDERABLES Performing Organization Address [facility] Co de Phone Number [facility] [address] [place] [address] * (ABNORMAL) GLUCOSE, GLUCOMETER (08/25/2017 2:56 EDT) [facility] Glucose, Fingerstick 182(H) 70 - 100 mg/dl 08/25/2017 3:[address] [facility] Spike Maker ID [id number] 08/25/2017 3:[address] [facility] Comment:Test Performed by [facility] Services BLOOD SPECIMEN / Unknown 08/25/2017 2:56 EDT 08/25/2017 3:01 EDT Chang Garduno MD CHEMISTRY & BLOOD G ORDERABLES Performing Organization Address [facility] Co de Phone Number [facility] [address] [place] [address] * HEPARIN LEVEL - UNFRACTIONATED HEPARIN (08/25/2017 1:21 EDT) Pathologist [facility] Heparin Level-UFH 0.15 IU/mL 018 2:[address] [facility] Comment: Unfractionated heparin therapeutic range [...] & PF4 ORD ERABLES Performing Organization Address [facility] de Phone Number [facility] [address] [place] [address] * INPATIENT ADD-ON (08/25/2017 1:15 EDT) Tests to be added MAGNESIUM, CALCIUM,CR EATININE,E LECTROLYTE S,CBC,PROT CHELSEA,HEMOGL OBIN A1C 08/25/2017 1:[address] [facility] Number for problems Not Given 08/25/2017 1:[address] [facility] Accession number [id number] 08/25/2017 1:[address] [facility] TOPOGRAPHY UNKNOWN / Unknown 08/25/2017 1:15 EDT 08/25/2017 1:26 EDT Nathaniel Greene MD HEMATOLOGY & PF4 O RDERABLES Performing Organization Address [facility] de Phone Number [facility] [address] [place] [address] * EKG 12-LEAD (08/25/2017 0:13 EDT) 08/25/2017 0:13 EDT Narrative [facility] EKG - 08/31/2017 14:22 EDT ?[facility] Emergency ? Test Date: ?2017-08-25 Pat Name: ? SAMY SCHARTNER ? Department: ?? ED ? Room: ? AC04 Gender: ? Male ? Bun Icer: ?? [id number] : ?1965 ? Requested By: NOLA WILSON M Order Number: [id number] ? Reading MD: ?? VASQUEZ BETANCOURT SA MD ? Measurements Intervals ?Clyde ? Rate: ? 65 ? P: ?57 ME: ? 186 ?QRS: ?43 QRSD: ? 88 [...] Vasquez Thorne Sa, MD - 08/31/2017 [facility] Emergency Test Date: 2017-08-25 Pat Name: SAMY PATRICIO Department: ED Room: [facility] Gender: Male Bun Icer: [id number] : 1965 Requested By: NOLA Barksdale Order Number: [id number] Reading MD: VASQUEZ MCCORMACK Measurements Intervals Clyde Rate: 65 P: 57 ME: 186 QRS: 43 QRSD: 88 T: 29 QT: 395 QTc: 412 Interpretive Statements SINUS RHYTHM Automated Interpretation. Provider Interpretation to follow. No previous ECG available for comparison I reviewed the tracing and have either agreed or edited the findings inthis report. Electronically Signed On 08-31-2017 14:22:34 EDT by VASQUEZ ECHEVARRIA SA, MD. Bella Solomon MD CARDIAC ECG ORDERABL ES Performing Organization Address [facility] Co de Phone Number [facility] EKG * PROTIME (08/24/2017 23:16 EDT) Pro Time 11.2 10.3 - 13.4 secs 08/25/2017 1:[address] [facility] Comment:NOTE NEW REFERENCE R LUIS OF APR 13 2017 I.N.R. 1.0 0.9 - 1.1 Ratio 08/25/2017 1:[address] [facility] Comment: Moderate Intensity Coumadin INR = 2.0-3.0 Adjustments in anticoagulant therapy dose should be based upon the INR and NOT the Pro Time. BLOOD SPECIMEN / Unknown 08/24/2017 23:16 EDT 08/24/2017 23:19 EDT Bella Solomon MD HEMATOLOGY & PF4 ORD ERABLES Performing Organization Address City/[facility] Co de Phone Number [facility] [address] [place] [address] * MAGNESIUM (08/24/2017 23:16 EDT) Magnesium 2.0 1.7 - 2.8 mg/dl 08/25/2017 2:[address] [facility] BLOOD SPECIMEN / Unknown 08/24/2017 23:16 EDT 08/24/2017 23:19 EDT Bella Solomon MD CHEMISTRY & BLOOD GA S ORDERABLES Performing Organization Address City/[facility] Co de Phone Number [facility] [address] [place] [address] * ELECTROLYTES (08/24/2017 23:16 EDT) Sodium 139 136 - 145 mEq/L 08/25/2017 2:[address] [facility] Potassium 4.3 3.5 - 5.0 mEq/L 08/25/2017 2:[address] [facility] Comment: Interpret results with caution. Prolonged sample storage may alter result. Chloride 108 96 - 110 mEq/L 08/25/2017 2:[address] [facility] CO2 24 22 - 32 mEq/L 08/25/2017 2:[address] [facility] Comment: Interpret results with caution. Prolonged sample storage may alter result. BLOOD SPECIMEN / Unknown 08/24/2017 23:16 EDT 08/24/2017 23:19 EDT Bella Solomon MD CHEMISTRY & BLOOD GA S ORDERABLES [facility] [address] [place] [address] * HEMOGLOBIN A1C (08/24/2017 23:16 EDT) Hemoglobin A1C 9.6 % 08/25/2017 10:[address] [facility] Comment: Reference Range: <5.7% Normal 5.7-6.4% Prediabetes =>6.5% Diagnostic for diabetes (if confirmed) Goals for glycemic control in diabetes ADA 2017 For non adults with diabetes: ?? Target <7.5% For children and adolescents with type 1 diabetes: ?? Target <7.0% More or less stringent targets may be appropriate for individual patients. Est Avg Glucose 229 mg/dl 8 10:[address] [facility] Comment: eAG represents the A1c result expressed as average glucose in mg/dl. BLOOD SPECIMEN / Unknown 08/24/2017 23:16 EDT 08/24/2017 23:19 EDT Bella Solomon MD CHEMISTRY & BLOOD GA S ORDERABLES Performing Organization Address [facility] de Phone Number [facility] [address] [place] [address] * CREATININE (08/24/2017 23:16 EDT) Creatinine 1.03 0.66 - 1.25 mg/dl 08/25/2017 2:[address] [facility] GFR, Calculated 84 >60 ml/min/1.7 3m2 08/25/2017 2:[address] [facility] Comment: eGFR calculated using CKD-EPI equation for non Americans. Multiply eGFR by 1.16 for Americans. BLOOD SPECIMEN / Unknown 08/24/2017 23:16 EDT 08/24/2017 23:19 EDT Bella Solomon MD CHEMISTRY & BLOOD GA S ORDERABLES Performing Organization Address [facility] Co de Phone Number [facility] [address] [place] [address] * COMPLETE BLOOD COUNT (08/24/2017 23:16 EDT) WBC 9.13 4.0 - 10.4 K/cmm 08/25/2017 1:[address] [facility] RBC 4.47 4.36 - 5.78 M/cmm 08/25/2017 1:[address] [facility] Hemoglobin 13.8 13.8 - 17.3 gm/dl 08/25/2017 1:[address] [facility] HCT 40.5 39.5 - 50.2 % 08/25/2017 1:[address] [facility] MCV 91 81 - 95 fl 08/25/2017 1:[address] [facility] MCH 30.9 27.6 - 33.0 pg 08/25/2017 1:[address] [facility] MCHC 34.1 32.8 - 36.4 gm/dl 08/25/2017 1:[address] [facility] RDW-CV 12.5 <14.2 % 08/25/2017 1:[address] [facility] RDW-SD 41.3 <46.0 fl 08/25/2017 1:[address] [facility] PLT 234 141 - 377 K/cmm 08/25/2017 1:[address] [facility] MPV 10.4 9.5 - 12.7 fl 08/25/2017 1:[address] [facility] BLOOD SPECIMEN / Unknown 08/24/2017 23:16 EDT 08/24/2017 23:19 EDT Bella Solomon MD HEMATOLOGY & PF4 ORD ERABLES [facility] [address] [place] [address] * CALCIUM (08/24/2017 23:16 EDT) Calcium 8.6 8.5 - 10.5 mg/dl 08/25/2017 2:[address] [facility] Calculated Calcium 9.2 8.5 - 10.5 mg/dl 08/25/2017 2:[address] [facility] BLOOD SPECIMEN / Unknown 08/24/2017 23:16 EDT 08/24/2017 23:19 EDT Bella Solomon MD CHEMISTRY & BLOOD GA S ORDERABLES [facility] [address] [place] [address] * HOLD BLUE TOP (08/24/2017 23:16 EDT) Hold Blue Top Sample for coagulation will be discarded after 4 hours 08/24/2017 23:[address] [facility] Blood specimen (specimen) BLOOD SPECIMEN / Unknown 08/24/2017 23:16 EDT 08/24/2017 23:19 EDT Bella Solomon MD LAB INFO SERVICE AND SUPPORT & PHONE RESULT Performing Organization Address [facility]/ZIP Co de Phone Number [facility] [address] [place] [address] * HOLD SST (08/24/2017 23:16 EDT) Hold SST Hold for further testing. Specimen will be held for 5 days. 08/24/2017 23:[address] [facility] Blood specimen (specimen) BLOOD SPECIMEN / Unknown 08/24/2017 23:16 EDT 08/24/2017 23:19 EDT Bella Solomon MD LAB INFO SERVICE AND SUPPORT & PHONE RESULT Performing Organization Address [facility] Co de Phone Number [facility] [address] [place] [address] * HOLD LAVENDER TOP (08/24/2017 23:16 EDT) Hold Purple Top EDTA for hematology will be discarded after 48 hours, differential not available after 12 hours. 08/24/2017 23:[address] [facility] Blood specimen (specimen) BLOOD SPECIMEN / Unknown 08/24/2017 23:16 EDT 08/24/2017 23:19 EDT Bella Solomon MD LAB INFO SERVICE AND SUPPORT & PHONE RESULT Performing Organization Address [facility] Co de Phone Number [facility] [address] [place] [address] * (ABNORMAL) TROPONIN I (08/24/2017 23:16 EDT) Troponin I (ng/mL) 7.390(H) <0.034 ng/ml 08/24/2017 23:[address] [facility] Comment: The results of this assay can be falsely lowered due to the consumption of Biotin. Blood specimen (specimen) BLOOD SPECIMEN / Unknown 08/24/2017 23:16 EDT 08/24/2017 23:19 EDT Bella Solomon MD CHEMISTRY & BLOOD GA S ORDERABLES [facility] [address] [place] [address] documented in this encounter Visit Diagnoses Diagnosis NSTEMI (non-ST elevated myocardial infarction) ([facility])- Primary Acute myocardial infarction, subendocardial infarction, episode of care unspecified NSTEMI (non-ST elevated myocardial infarction) ([facility]) Acute myocardial infarction, subendocardial infarction, episode of care unspecified Tobacco abuse Tobacco use disorder CARLOTA (obstructive sleep apnea) Obstructive sleep apnea (adult) (pediatric) Type 2 diabetes mellitus, without long-term current use of insulin ([facility]) Hyperlipidemia Other and unspecified hyperlipidemia CAITLYN (acute kidney injury) ([facility]) Acute kidney failure, unspecified documented in this [...] Estevez RN) 08 (Given - Provider: Manisha Hapmton RN) morphine injection 2 mg (COMPLETED) 2 [...] syringe 1 08/26/19 18 polyethylene glycol 3350 ([place] RALAX) packet 17 g 1 08/25/2017 ramelteon [...] 08/11 documented in this encounter Care Teams Continuous Improvement Coach Relationship Specialty Start Date End Date Altaf Hoover MD PCP - General 11/12/15 04/12/20 documented as of this encounter
--- OUTSIDE RECORDS SUMMARY | 2023-11-07 02:31 | XMS_ITS | Encounter Summary ---
Author Organization [facility] Address [address] [place] [address] Care Team Providers Care Bus Driver Supervisor Name Role Phone Derrick Melara MD Primary Care Provider [phone] Encounter Details Date Type Department Care Team (Late st Contact Info) Description 09/25/2012 Results Only [facility] Laboratory Services - [facility] ([facility]) [address] [place], [place] [address] Mendoza Beatty, [address] [facility] ,[address] [place], [place] [address] Social History Tobacco Use Types Packs/Day Years [...] ? SAMY PATRICIO ? Accession #: ? [id number] ? : ? 1965 (Age: 46) ??M [...] changes. Document reviewed and electronically signed by: CHERELEL WAYNE MD Report ??Date: 09/27/2012 18:56 By [...] DO PATHOLOGY ORDER TREVON Performing Organization Address City/State/[facility] Co de Phone Number [facility] [address] [place] [address] documented in this encounter Visit Diagnoses Not on filedocumented in this encounter Care Teams Bus Driver Supervisor Relationship Specialty Start Date End Date Derrick Melara MD [address] [place] [address] PCP - General 09/26/12 11/11/15 documented as of this encounter
--- OUTSIDE RECORDS SUMMARY | 2023-11-07 02:31 | XMS_ITS | Encounter Summary ---
Author Organization [facility] Address [address] [place] [address] Care Team Providers Care Blood Collector Name Role Phone Sae Marr MD Primary Care Provider Encounter Details Date Type Department Care Team (Late st Contact Info) Description 07/03/2020 Lab Requisition [facility] Pathology & Laboratory Medicine - [address] [address] Outr Resulting Lab, Provider Social History Tobacco [...] 0.0 - 3.5 ng/mL 07/03/2020 17:17 EDT [facility] Blood VENOUS BLOOD / Unknown 07/03/2020 7:56 EDT 07/03/2020 16:15 EDT Narrative [facility] - 07/03/2020 17:17 EDT NOTE: Serum PSA concentration should not be interpreted as absolute evidence for the presence or absence of malignant disease. Assayed on Siemens [employer] XPT using chemiluminescent technology.??Values obtained by using different assay methods cannot be used interchangeably. Provider Outr Resulting Lab CHEMISTRY & BLOOD GAS ORDERABLES [facility] [address] [place] [address] documented in this encounter Visit Diagnoses Not on filedocumented in this encounter Care Teams Blood Collector Relationship Specialty Start Date End Date Sae Marr MD PCP - General Family Medicine - Primary Care 04/13/20 documented as of this encounter
--- OUTSIDE RECORDS SUMMARY | 2023-11-07 02:31 | XMS_ITS | Encounter Summary ---
Author Organization [facility] Address [address] [place] [address] Care Team Providers Care Dismantler Name Role Phone Sae Marr MD Primary Care Provider [phone] Encounter Details Date Type Department Care Team (Late st Contact Info) Description 10/28/2021 Lab Requisition [facility] Pathology & Laboratory Medicine - [address] [id number] Outr Resulting Lab, Provider Social History Tobacco [...] 55.4(L) 55.8 - 66.1 % 10/29/2021 13:54 [facility] Albumin g/dL 3.7 3.6 - 5.2 g/dL 10/29/2021 13:54 [facility] Alpha-1 % 4.6 2.9 - 4.9 % 10/29/2021 13:54 [facility] Alpha-1 g/dL 0.30 0.15 - 0.40 g/dL 10/29/2021 13:54 [facility] Alpha-2 % 13.8(H) 7.1 - 11.8 % 10/29/2021 13:54 [facility] Alpha-2 g/dL 0.90 0.50 - 1.00 g/dL 10/29/2021 13:54 [facility] Beta % 14.7(H) 8.4 - 13.1 % 10/29/2021 13:54 [facility] Beta g/dL 1.00 0.60 - 1.20 g/dL 10/29/2021 13:54 [facility] Gamma % 11.5 11.1 - 18.8 % 10/29/2021 13:54 [facility] Gamma g/dL 0.80 0.60 - 1.60 g/dL 10/29/2021 13:54 EDT [facility] SPEP Comment No apparent monoclonal protein seen on serum electrophoresis 10/29/2021 13:54 EDT [facility] Comment:See scanned/suppleme ntary report. Total Protein 6.6 6.3 - 8.2 g/dL 10/29/2021 13:54 EDT [facility] Blood VENOUS BLOOD / Unknown 10/28/2021 8:20 EDT 10/28/2021 17:19 EDT Provider Outr Resulting Lab CHEMISTRY & BLOOD GAS ORDERABLES Performing Organization Address [facility] de Phone Number [facility] [address] [place] [address] * PROTEIN, TOTAL (10/28/2021 8:20 EDT) Blood VENOUS BLOOD / Unknown 10/28/2021 8:20 EDT 10/28/2021 17:19 EDT Provider Outr Resulting Lab CHEMISTRY & BLOOD GAS ORDERABLES Performing Organization Address [facility] Co de Phone Number [facility] [address] [place] [address] documented in this encounter Visit Diagnoses Not on filedocumented in this encounter Care Teams Dismantler Relationship Specialty Start Date End Date Sae Marr MD PCP - General Family Medicine - Primary Care 04/13/20 documented as of this encounter
--- OUTSIDE RECORDS SUMMARY | 2023-11-07 02:31 | XMS_ITS | Encounter Summary ---
Author Organization [facility] Address [address] [place] [address] Care Team Providers Care House Calls Nurse Practitioner Name Role Phone Derrick Melara MD Primary Care Provider [phone] Encounter Details Date Type Department Care Team (Late st Contact Info) Description 02/18/2014 Results Only [facility] Services - [facility] [place] [address] [place], [place] [id number] Mendoza Beatty, [address] [facility] ,[address] [place], [place] [address] Social History Tobacco Use Types Packs/Day Years [...] reading/interpret ing unformatted reports. Name: ? SAMY PATRICIO ? Accession #: ? [id number] ? : ? 1965 (Age: 48) ??M [...] King 02/19/2014 11:51 AM End of Report [facility] 02/18/2014 9:03 EST 02/19/2014 9:03 EST Mendoza Beatty DO PATHOLOGY ORDER TREVON [facility] [address] [place] [address] documented in this encounter Visit Diagnoses Not on filedocumented in this encounter Care Teams House Calls Nurse Practitioner Relationship Specialty Start Date End Date Derrick Melara MD [address] [place] [address] PCP - General 09/26/12 11/11/15 documented as of this encounter
--- OUTSIDE RECORDS SUMMARY | 2023-11-07 02:31 | XMS_ITS | Encounter Summary ---
Author Organization [facility] Address [address] [place] [address] Care Team Providers Care Network Program Manager Name Role Phone Unavailable Primary Care Provider Unavailabl e Encounter Details Date Type Department Care Team (Latest Contact Info) Description 11/16/2000 19:45 EDT Hospital Encounter [facility] [address] [place] [address] Justin Poon MD [address] [address] Discharge Disposition: Auto Discharge Social [...] of the brain with and without contrast. /formerly [facility] Procedure Note Luc Sears MD - [...] of the brain with and without contrast. /formerly [facility] Justin Poon MD IMG MRI ORDERABLES documented in this encounter Visit Diagnoses Not on filedocumented in this encounter
--- OUTSIDE RECORDS SUMMARY | 2023-11-07 02:31 | XMS_ITS | Encounter Summary ---
Author Organization [facility] Address [address] [place] [address] Care Team Providers Care Security Test Engineer Name Role Phone Derrick Melara MD Primary Care Provider [phone] Encounter Details Date Type Department Care Team (Latest Contact Info) Description 02/18/2014 12:04 EST - 02/18/2014 23:59 EST Hospital Encounter [address] [address] Unknown, Provider, Discharge Disposition: Home or Self Care Social History Tobacco Use Types Packs/Day Years Used Date Smoking Tobacco: Never Assessed Sex and Gender Information Value Date Recorded Sex Assigned at Not on file Gender Identity Male 02/16/2019 6:16 EST Sexual Orientation Not on file documented as of this encounter Discharge Disposition Disposition Code Departure Means Destination Home or Self Group Home documented in this encounter Plan of Treatment Not on file documented as of this encounter Visit Diagnoses Not on filedocumented in this encounter Care Teams Security Test Engineer Relationship Specialty Start Date End Date Derrick Melara MD [address] [place] [address] PCP - General 09/26/12 11/11/15 documented as of this encounter
--- OUTSIDE RECORDS SUMMARY | 2023-11-07 02:31 | XMS_ITS | Referral Summary ---
Author Organization [facility] Address [address] [place] [address] Care Team Providers Care Commercial Leasing Agent Name Role Phone Sae Marr MD Primary Care Provider [phone] Allergies Active Allergy Reactions Criticality Noted Date [...] premature coronary heart disease 02/13/2019 Atypical angina ([facility]) 02/13/2019 PUD (peptic ulcer disease) 02/13/2019 H/O heart artery stent 02/13/2019 Smoker 08/25/2017 CARLOTA (obstructive sleep apnea) 08/25/2017 Type 2 diabetes mellitus, wi thout long-term current use of insulin ([facility]) 08/25/2017 Hyperlipidemia 08/25/2017 CAITLYN (acute kidney injury) ([facility]) 08/25/2017 Diaz's esophagus Resolved Problems Problem Noted Date Diagnosed Date Resolved Date NSTEMI (non-ST elevated myoc ardial infarction) ([facility]) 08/25/2017 04/12/2019 Social History Tobacco Use [...] BLOOD GA S ORDERABLES Performing Organization Address City/State/[facility] Co de Phone Number [facility] [address] [place] [address] from Last 3 Months or Most Recently Relevant to Health Maintenance Advance Directives For more information, please contact: [phone] * Full Code (Latest Code Status on File) Date Activated Date Inactivated Comments 08/25/2017 2:36 08/26/2017 15:45 Question Answer Comments Reason for decision includes: Full code consistent with overall plan of care Who participated in the discussion? Not Discusse d Care Teams Commercial Leasing Agent Relationship Specialty Start Date End Date Sae Marr MD PCP - General Family Medicine - Primary Care 04/13/20
--- OUTSIDE RECORDS SUMMARY | 2023-11-07 02:31 | XMS_ITS | Encounter Summary ---
Author Organization [facility] Address [address] [place] [address] Care Team Providers Care Security Business Analyst Name Role Phone Altaf Hoover MD Primary Care Provider [phone] Sae Marr MD Primary Care Provider [phone] Encounter Details Date Type Department Care Team (Late st Contact Info) Description 04/09/2020 Lab Requisition [facility] Pathology & Laboratory Medicine - [address] [address] Outr Resulting Lab, Provider Social History Tobacco [...] Priority Date/Time Associated Diagnosis Comments ZZCOVID-19 TEST [facility] PCR Today 04/09/2020 8:53 EST COVID-19 TESTING Routine 04/09/2020 8:53 EST documented in this encounter Results * COVID-19 TEST [facility] PCR (04/09/2020 8:53 EST) Swab ENTIRE NASOPHARYNX / Unknown 04/09/2020 8:53 EST 04/09/2020 15:58 EST Provider Outr Resulting Lab MICROBIOLOGY - GENERAL ORDERABLES Performing Organization Address City/State/[facility] Co de Phone Number [facility] [address] [place] [id number] * COVID-19 TESTING (04/09/2020 8:53 EST) COVID-19 rt-PCR Result Negative Negative 04/10/2020 13:33 EST [facility] Comment: This test has not [...] developed and its performance characteristics determined by [facility]. It has not been cleared or [...] This test is based on the [facility] COVID-19 Emergency Use Authorization (EUA) assay, with minor modification as defined by the FDA Performed on the [employer] Flex RT-PCR System. Performing Lab [facility] 04/10/2020 13:33 EST [facility] Swab 04/09/2020 8:53 EST 04/09/2020 15:58 EST Provider Outr Resulting Lab MICROBIOLOGY - GENERAL ORDERABLES Performing Organization Address City/State/[facility] Co de Phone Number [facility] [address] [place] [address] documented in this encounter Visit Diagnoses Not on filedocumented in this encounter Care Teams Security Business Analyst Relationship Specialty Start Date End Date Altaf Hoover MD PCP - General 11/12/15 04/12/20 Sae Marr MD PCP - General Family Medicine - Primary Care 04/13/20 documented as of this encounter
--- OUTSIDE RECORDS SUMMARY | 2023-11-07 02:31 | XMS_ITS | Encounter Summary ---
Author Organization [facility] Address [address] [place] [address] Care Team Providers Care Olive Grader Name Role Phone Unavailable Primary Care Provider Unavailabl e Encounter Details Date Type Department Care Team (Latest Contact Info) Description 11/20/2000 11:16 EDT - 11/20/2000 11:59 EDT Hospital Encounter [facility] - Other [address] [place] [address] José Miguel Crani MD [address] [place] [id number] Unknown, MD Derrell Discharge Disposition: Auto Discharge [...]
--- OUTSIDE RECORDS SUMMARY | 2023-11-07 02:31 | XMS_ITS | Encounter Summary ---
Author Organization [facility] Address [address] [place] [address] Care Team Providers Care National Park Tour Guide Name Role Phone Altaf Hoover MD Primary Care Provider [phone] Reason for Visit * Reason Onset Date Comments Chest Pain 01/24/2019 Encounter Details Date Type Department Care Team (Late st Contact Info) Description 01/24/2019 Telephone [facility] [address] [place] [address] Rosanne Trinidad, RN [address] [place] [address] [address] [place] [address] Chest Pain Social History Tobacco [...] problems with med increase. Escript sent to [place] * Telephone Encounter - Rosanne Trinidad RN [...] Diagnoses Diagnosis NSTEMI (non-ST elevated myocardial infarction) ([facility])- Primary Acute myocardial infarction, subendocardial infarction, episode [...] 01/25/2019 added in this encounter Care Teams National Park Tour Guide Relationship Specialty Start Date End Date Altaf Hoover MD PCP - General 11/12/15 04/12/20 documented as of this encounter
--- OUTSIDE RECORDS SUMMARY | 2023-11-07 02:31 | XMS_ITS | Encounter Summary ---
Author Organization [facility] Address [address] [place] [address] Care Team Providers Care Office Automation Technician Name Role Phone Unavailable Primary Care Provider Unavailabl e Encounter Details Date Type Department Care Team (Latest Contact Info) Description 10/24/2000 19:26 EDT Hospital Encounter [facility] - Other [address] [place] [address] Enrique Crain MD [address] [address] Unknown, MD Derrell Discharge Disposition: [...] which should be confirmed with high-resolution CT. /[facility] Addendum: The ICD9/diagnostic code has been changed [...] which should be confirmed with high-resolution CT. /[facility] Addendum: The ICD9/diagnostic code has been changed from 368.12 to 135. for physician billing. The text has not been altered. Justin Poon MD IMG DIAGNOSTIC IMAGI NG ORDERABLES * SED. RATE:WESTERGREN (10/24/2000 16:25 EDT) Sed. Rate Westergren 15 0 - 15 mm/hr [facility] 10/24/2000 16:2 5 EDT 10/24/2000 16:33 EDT Enrique Crain MD HEMATOLOGY & PF4 ORD ERABLES Performing Organization Address [facility] Co de Phone Number [facility] [address] [place] [address] * SYPHILIS SERO (RPR) (10/24/2000 16:25 EDT) Syphilis Sero (RPR) NONREACT. NR Dils [facility] 10/24/2000 16:2 5 EDT 10/24/2000 16:33 EDT Enrique Crain MD IMMUNOLOGY AND SEROL OGY ORDERABLES Performing Organization Address [facility] Phone Number [facility] [address] [place] [address] * SYPHILIS AB IGG, IGM (10/24/2000 16:25 EDT) Pathologist [facility] RPR SL NONREACT. [facility] FTA NONREACT. Assayed by [facility], [place], [place] [facility] 10/24/2000 16:2 5 EDT 10/24/2000 16:33 EDT Enrique Crain MD IMMUNOLOGY AND SEROL OGY ORDERABLES Performing Organization Address [facility] Co de Phone Number [facility] [address] [place] [address] * (ABNORMAL) HEMAGRAM & DIFF (10/24/2000 16:25 [...] EDT 10/24/2000 16:33 EDT Enrique Crain MD HISTORICAL LAB FOR S Q LOAD [facility] [address] [place] [address] * (ABNORMAL) ANGIOTENSIN CONVERTING ENZYME (CHRIS) (10/24/2000 16:25 EDT) Angiotensin Converting Enzyme 57Unit: U/L ??(Note) -- EXPECTED VALUES -- ? (Ref Range) 7 to 46 ? The use of CHRIS-inhibiting anti-hypertensi ve drugs will cause ? decreased angiotensin converting enzyme values. ? TEST PERFORMED OR REFERRED BY [facility] ? [facility] ? [address] ? [place], [place] ??[address] ?(H) [facility] 10/24/2000 16:2 5 EDT 10/24/2000 16:33 EDT Enrique Crain MD CHEMISTRY & BLOOD GA S ORDERABLES Performing Organization Address [facility] de Phone Number [facility] [address] [place] [address] * ANTI NUCLEAR ANTIBODY (10/24/2000 16:25 EDT) Anti Nuclear Ab <40 0 - 40 Dils [facility] 10/24/2000 16:2 5 EDT 10/24/2000 16:33 EDT Enrique Crain MD IMMUNOLOGY AND SEROL OGY ORDERABLES Performing Organization Address [facility] de Phone Number [facility] [address] [place] [phone] documented in this encounter Visit Diagnoses Not on filedocumented in this encounter
--- OUTSIDE RECORDS SUMMARY | 2023-11-07 02:31 | XMS_ITS | Encounter Summary ---
Author Organization [facility] Address [address] [place] [address] Care Team Providers Care Presidential Support Specialist Name Role Phone Altaf Hoover MD Primary Care Provider [phone] Reason for Visit * Reason Comments Follow-up Coronary Artery Disease Encounter Details Date Type Department Care Team (Late st Contact Info) Description 04/12/2019 9:30 EST Office Visit [facility] [address] [place] [address] Jg Stubbs MD [address] [facility] [address] [place] [address] Atypical angina (HCC-CMS) (Primary Dx); [...] Jg Stubbs MD - 04/12/2019 0930 EST [facility] Cardiology Follow-up Visit Date of Service: 04/12/2019 Reason for Visit: Atypical angina ([facility]) [I20.8] Primary Care Provider: Altaf Hoover Subjective [...] Vaping. Occasional ETOH. Family History: Mother w/ KS in her 50's, father w/ KS in his 50's, brother w/ KS in his 40's. Objective Vital Signs: Blood [...] HGBA1C 9.6 08/24/2017 Assessment 1. Atypical angina ([facility]) 2. Pre-op evaluation 3. H/O non-ST elevation myocardial infarction (NSTEMI) 4. H/O heart artery stent 5. Type 2 diabetes mellitus without complication, without long-term current use of insulin ([facility]) 6. Smoker 7. FH: premature coronary heart [...] this encounter Visit Diagnoses Diagnosis Atypical angina ([facility])- Primary Other and unspecified angina pectoris Pre-op evaluation Preoperative examination, unspecified H/O non-ST elevation myocardial infarction (NSTEMI) Old myocardial infarction H/O heart artery stent Postsurgical percutaneous transluminal coronary angioplasty status Type 2 diabetes mellitus without complication, without long-term current use of insulin ([facility]) Smoker Tobacco use disorder FH: premature [...] 02/12/2019 added in this encounter Care Teams Presidential Support Specialist Relationship Specialty Start Date End Date Altaf Hoover MD PCP - General 11/12/15 04/12/20 documented as of this encounter
--- NOTE | 2023-11-07 06:45 | DI.MRI_ITS ---
Exam(s) MR CERVICAL SPINE WO EXAM: MR CERVICAL SPINE WO CLINICAL HISTORY: PAIN,cervical stenosios, m48.02 TECHNIQUE: Multiplanar multisequence MRI of the cervical spine was performed without intravenous con trast. COMPARISON: MR MR CERVICAL SPINE WO from 04/21/2022 FINDINGS: CERVICOMEDULLARY JUNCTION: Intact with no evidence of cerebellar tonsillar ectopia. No obvious abnor mality of the odontoid process. No evidence of Chiari 1 malformation. CERVICAL SPINAL CORD: There is no abnormal signal in the cervical spinal cord and no evidence of foca l cord atrophy nor focal cord swelling. OSSEOUS:There are no cervical fractures evident. No significant osseous lesions in the cervical vert ebrae. No loss of the normal curvature. INDIVIDUAL LEVELS: C2-3: No disc herniation nor central canal stenosis. No foraminal stenosis. No facet arthropathy. C3-4: There is moderate chronic disc space narrowing, unchanged.Again noted is relatively symmetrical annular bulging without significant focal disc herniation. There is mild central spinal canal steno sis again noted with effacement of the anterior thecal sac again noted but not the spinal cord. AP m easurement of the canal at this level is 8.5 mm, similar to previous. Mild degenerative changes in t he facet joints again noted. Small bilateral Luschka joint osteophytes. Mild bilateral foraminal st enosis noted. C4-5: This level again exhibits relatively preserved disc height.Mild annular bulging which is sligh tly more prominent in the lateral left side where there is a small disc-Luschka joint osteophyte comp denise. There is mild central spinal canal stenosis with effacement of the anterior thecal sac again no madelin but not of the spinal cord. AP measurement of the canal at this level is a 8.5 mm. There are mi nimal facet joint degenerative changes. No foraminal stenosis on the right side. On the left side t here is moderate foraminal stenosis evident, this related to the disc-Luschka joint osteophyte comple x. C5-6: This level exhibits mild disc space narrowing, similar to previous. There is posterior subliga mentous annular bulging at this which is again noted to indent the anterior thecal sac and spinal cor d, resulting in mild-moderate central canal stenosis. There are minimal degenerative changes in the facet joints. Mild foraminal stenosis on both sides again evident. C6-7: This level exhibits normal disc height and signal. However, there is now a more prominent post erior disc protrusion at this level which is central and right paracentral, extending posteriorly 5 m m and approximately 10 mm wide. This indents the anterior spinal cord at this level, more so than pr evious. There is mild-moderate central canal stenosis. Facet joints at this level remain unremarkab le in appearance. The disc herniation does not extend into the exiting right neural foramen which is nicely patent. There is no foraminal stenosis on either side at this level. C7-T1: No disc herniation nor central canal stenosis. No facet arthropathy.No foraminal stenosis. IMPRESSION: 1. Compared to the prior MRI scan of April 2022 there is now a more prominent disc protrusion (michelle tral-right paracentral) at C6-7 level which indents the spinal cord this level. There is no abnormal signal in seen in the cord at this level nor elsewhere in the cervical spine. This disc protrusion results in an element of central canal stenosis. This disc protrusion does not extend into the exiti ng neural foramina and there is no foraminal stenosis on either side at this level. 2. There are multilevel findings at the other levels as described individually above, but with minima l change at these levels when compared to the prior MRI of April 2022. DATA REPOSITORY:
== END 2023-11-07 02:45 ==
LOC: DI 02:25
PROVIDERS: PCP Family Medicine; Visit Provider Student in an Organized Health Care Education/Training Program
DX: M48.02 Spinal stenosis, cervical region (principal)
CPT/HCPCS: 72141

== ENCOUNTER 2023-11-14 09:01 | Day surgery (SDC) | payer MEDICARE, OTHER, SELFPAY ==
--- NOTE | 2023-11-14 08:30 | ANES.PREOP_ITS ---
General Info Date of Service Date Performed: 11/14/23 Height: 6 ft Weight: 133.81 kg Body Mass Index (BMI): 40.0 Surgical Procedure: Operation Date: 11/14/23 12:25 Proposed Procedure Side Surgeon p Wrist Open Carpal Tunnel Release Left Aiden Santa MD Meds Allergies and Home Medications Allergies Allergy/AdvReac Type Severity Reaction Status Date / Time venlafaxine AdvReac Severe Nausea Verified 11/14/23 09:55 doxycycline AdvReac Intermediate Cold Verified 11/14/23 09:55 Chills, made him sick. liraglutide (From Victoza) AdvReac Intermediate GI upset Verified 11/14/23 09:55 Home Medication ?Medication ?Instructions ?Recorded aspirin 81 mg tablet,delayed 81 mg PO DAILY 08/28/17 release (Aspir-) vitamin B complex (B 1 tab PO DAILY 08/19/19 Complex-Vitamin B12 tablet) albuterol sulfate 90 mcg/actuation 2 puff inhalation Q6H PRN 09/30/22 aerosol inhaler shortness of breath or wheezing #8.5 grams blood-glucose sensor (Dexcom G7 #1 ea 09/30/22 Sensor device) nitroglycerin 0.4 mg sublingual See Rx Instructions .Route 09/30/22 tablet .COMPLEX #100 tabs pen needle, diabetic 31 gauge x #500 ea 12/01/2203/16 (Comfort EZ Pen [place]) metoprolol succinate 50 mg 25 mg (1/2 x 50 mg) PO DAILY #90 12/21/22 tablet,extended release 24 hr tabs torsemide 20 mg tablet 40 mg (2 x 20 mg) PO DAILY #180 02/10/23 tabs tamsulosin 0.4 mg capsule (Flomax) 0.4 mg PO DAILY #90 caps 04/05/23 allopurinol 100 mg tablet 200 mg (2 x 100 mg) PO DAILY #180 05/16/23 tabs glucagon 3 mg/actuation nasal spray 3 mg intranasal ONCE PRN 05/16/23 hypoglycemia #2 ea acetaminophen 500 mg tablet 1,000 mg (2 x 500 mg) PO TID #90 06/28/23 tabs ibuprofen 600 mg tablet 600 mg PO TID PRN pain #90 tabs 06/28/23 empagliflozin 25 mg tablet 25 mg PO DAILY #90 tabs 07/13/23 atorvastatin 80 mg tablet 80 mg PO QHS #90 tabs 10/02/23 insulin lispro-aabc 200 unit/mL (3 40 unit (0.2 mL) subcut QACHS #18 10/05/23 mL) subcutaneous pen mL pantoprazole 40 mg tablet,delayed 40 mg PO BID #180 tabs 10/09/23 release fluticasone fur. 200 mcg-umeclid 1 inh inhalation DAILY #60 ea 10/23/23 62.5 mcg-vilant 25 mcg inhalat.powder (Trelegy Ellipta) alprazolam 0.5 mg tablet 0.5 mg PO ONCE PRN claustrophobia 10/24/23 #2 tabs insulin degludec 200 unit/mL (3 160 unit subcut HS 10/24/23 mL) subcutaneous pen colchicine 0.6 mg tablet (Colcrys) See Rx Instructions PO .COMPLEX 10/31/23 #30 tabs folic acid 1 mg tablet 1 mg PO DAILY #90 tabs 10/31/23 hydrocodone 5 mg-acetaminophen 325 1 tab PO Q6H PRN severe pain #6 11/14/23 mg tablet tabs Current Visit Medications: Current Medications Generic Name Dose Route Start Last Admin Trade Name Freq PRN Reason Stop Dose Admin Acetaminophen 1,000 mg 11/14/23 06:00 Acetaminophen 500 Mg Tab PO 11/14/23 23:59 PREOP YAW Celecoxib 400 mg 11/14/23 06:00 Celecoxib 200 Mg Cap PO 11/14/23 23:59 PREOP YAW Ringer's Solution 1,000 mls @ 80 mls/hr 11/14/23 06:00 IV 11/14/23 23:59 INFUSION [facility] IV Miscellaneous Supplies 1 each 11/14/23 06:00 Iv Access IV 11/14/23 23:59 DIRECTED YAW Sodium Chloride 0 ml 11/14/23 06:00 Normal Saline Flush 10 Ml Syr IV 11/14/23 23:59 PRN PRN Sodium Chloride 0 ml 11/14/23 06:00 Normal Saline 10 Ml Vial IJ 11/14/23 23:59 DIRECTED PRN Sterile Water 0 ml 11/14/23 06:00 Water,Injection,Sterile 10 Ml Vial IJ 11/14/23 23:59 DIRECTED PRN PFSH Active Problems Active Problems: Problem Status Onset Code Acute UTI Acute N39.0 Chest pain Acute R07.9 Rectal bleeding Acute K62.5 Chronic obstructive lung disease Chronic J44.9 Tubular adenoma of colon Acute 12/14 D12.6 Gross hematuria Acute R31.0 Cubital tunnel syndrome on left Acute G56.22 Carpal tunnel syndrome of right wrist Acute G56.01 Carpal tunnel syndrome of left wrist Acute G56.02 Gout due to renal impairment, multiple sites Acute M10.39 Hyperuricemia Acute E79.0 ALTMAN (nonalcoholic steatohepatitis) Chronic 01/04/23 K75.81 Prostatitis, acute Resolved N41.0 Pituitary abnormality Acute E23.7 Peripheral artery disease Acute I73.9 Orthostatic hypotension Acute I95.1 Diabetes mellitus with stage 3a chronic kidney disease, with long-term current use of insulin Acute E11.22, N18.31, Z79.4 Type 2 diabetes mellitus with diabetic neuropathy, with long-term current use of insulin Acute E11.40, Z79.4 Lumbosacral spondylosis without myelopathy Acute M47.817 Memory change Acute R41.3 Claudication Acute I73.9 Obesity Chronic E66.9 Bilateral lower extremity edema Chronic R60.0 Erectile dysfunction Acute N52.9 BPH loc w urin obs/LUTS Acute N40.1 Actinic keratosis due to exposure to sunlight Acute L57.0 Serrated adenoma of colon Acute ~04/2020 D12.6 Diabetic peripheral neuropathy Acute E11.42 GERD (gastroesophageal reflux disease) Acute K21.9 HTN (hypertension) Chronic I10 Smoker Acute F17.200 CAD S/P percutaneous coronary angioplasty Chronic 08/28/17 I25.10, Z98.61 Hyperlipidemia Chronic CARLOTA (obstructive sleep apnea) Chronic Depression with anxiety Chronic Medical History Medical History Colon polyp, hyperplastic (~04/2020) 04/13/20 HP x19 Pyelonephritis due to Escherichia coli History of left heart catheterization 10/05/22 [facility] Cardiology. 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 Cervical disc disease Chronic neck pain Thoracic spine pain (07/17/15) Spondylosis of cervical region without myelopathy or radiculopathy (04/17/15) Chronic pain syndrome (09/30/16) 08/19/16-CONTROLLED SUBSTANCE AGREEMENT-APPROVED FOR 3 MONTHS Chronic left-sided low back pain with left-sided sciatica (12/03/15) Blindness, 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 Acute nontraumatic kidney injury Parastomal hernia Medical History Comments:: Dexcon CGM on R U arm - BS is 125mg/dL at 09:41am Surgical History Surgical History Ganglion cyst of dorsum of right wrist S/P Excision: 06/06/2023 Status post vasectomy Status post Luisana fundoplication Status post inguinal hernia repair Status post carpal tunnel release History of esophagogastroduodenoscopy (~04/2023) History of incisional hernia repair with mesh right ulnar graft left shoulder repair Luisana Fundoplication Colonoscopy - MAC (~04/2023) 02/18/14 Tobacco Smoking/Tobacco Use Status: Current every day Tobacco Type: cigarettes Smoking packs per day: 2 Smoking cigarettes per day: 40.0 Smokeless tobacco user: snuff Passive smoking exposure: Yes Second hand exposure: Yes Counseling given: provider counseling Alcohol Alcohol Intake: current Alcohol intake frequency: holidays/special occasions only Alcohol type: hard liquor Substance Use Substance use: Never Substance use type: does not use Vital Signs and Lab Results Vital Signs Most Recent Vital Signs in EMR: Temp Pulse Resp BP Pulse Ox 36.1 C L 77 16 114/77 99 11/14/23 09:06 11/14/23 09:06 11/14/23 09:06 11/14/23 09:06 11/14/23 09:06 Lab Results Blood Type / Crossmatch: No Data to Display Complete Blood Count: White Blood Count 10.62 10^3/uL (4.4-10.8) 10/24/23 16:04 Red Blood Count 5.50 10^6/uL (4.36-5.78) 10/24/23 16:04 Hemoglobin 16.4 g/dL (13.5-17.5) 10/24/23 16:04 Hematocrit 50.5 % (40.0-50.0) H 10/24/23 16:04 Platelet Count 219 10^3/uL (130-400) 10/24/23 16:04 Complete Metabolic Panel: Sodium 141 mmol/L (136-145) 10/24/23 16:04 Potassium 4.2 mmol/L (3.5-5.1) 10/24/23 16:04 Chloride 103 mmol/L (98-107) 10/24/23 16:04 Carbon Dioxide 31.4 mmol/L (21.0-32.0) 10/24/23 16:04 BUN 17 mg/dL (7-18) 10/24/23 16:04 Creatinine 1.6 mg/dL (0.70-1.30) H 10/24/23 16:04 Est GFR (CKD-EPI 2020) 50.26 (mL/min/1.73m2) 10/24/23 16:04 Magnesium 2.3 mg/dL (1.8-2.4) 10/24/23 16:04 Calcium 9.0 mg/dL (8.5-10.1) 10/24/23 16:04 Albumin 3.3 g/dL (3.4-5.0) L 10/24/23 16:04 Glucose 112 mg/dL (74-106) H 10/24/23 16:04 Liver Function Panel: Alanine Aminotransferase (ALT/SGPT) 32 U/L (16-63) 10/24/23 16: 04 Aspartate Amino Transf (AST/SGOT) 18 U/L (15-37) 10/24/23 16:04 Coagulation Panel: INR International Normalized Ratio 1.0 (0.9-1.1) 10/24/23 16:0 4 Prothrombin Time 10.3 sec (9.1-11.1) 10/24/23 16:04 Activated Partial Thromboplast Time 28.9 sec (23.6-32.8) 16:04 D-Dimer 451 ng/mlFEU (<500) 10/24/23 16:04 Cardiac Panel: Troponin I < 50 ng/L (< or =60) 10/24/23 NT-Pro-B Natriuret Pep 87 pg/mL (<300) 10/24/23 Arterial Blood Gas: No Data to Display Venous Blood Gas: No Data to Display Pancreas Panel: Lipase 49 U/L (16-77) 10/24/23 16:04 Thyroid Panel: No Data to Display Infectious Disease: Coronavirus (COVID-19)(PCR) Negative (Negative) 10/24/23 16:50 Coronavirus 2019 Source Nasopharynx 10/24/23 16:50 Influenza Virus Type A (PCR) Negative (Negative) 10/24/23 16:5 0 Influenza Virus Type B (PCR) Negative (Negative) 10/24/23 16:5 0 Respiratory Syncytial Virus (PCR) Negative (Negative) 10/24/23 16:50 Blood Cultures: No Data to Display Toxicology Panel: No Data to Display Imaging and Studies Imaging and Studies Study information below may be from another EMR and interpreted by another provider. Please see original notes in EMR for more complete details. EKG Summary: 11/03: sinus rhythm 10/02: sinus tessa. Stress Test Summary: Patient Name: BEL MENESES Unit #: [id number] Loc: DI Ordering Provider: Jg Stubbs M.D. Status: REG CLI Primary Care Provider: Abi Lazaro Date of Exam: 04/23/18 Sex: M : 1965 Age: 52 Exam(s) a NM:NM MPI rest & stress grp *[facility]* *[facility]* [address] [place] [address] Myocardial Perfusion Imaging - SPECT Cabrera protocol Date of study: 04/23/2018 *PATIENT PRESENTATION* Height: 182.9cm (72in) Blood Pressure: Weight: 120.9kg (266lb) BSA: 2.52m^2 Referring physician: Angeles Bowens Ordering physician: Jg Stubbs Impressions: - Normal study after pharmacologic stress. - Good functional capacity - stress converted to pharm stress as THR not achieved. Summary: 1. Myocardial perfusion imaging: No myocardial perfusion defects noted. 2. The calculated left ventricular ejection fraction after stress: 70%. LV global systolic function is normal. No left ventricular regional motion abnormality. 3. Stress: The target heart rate was not achieved. Indication: R07.9. History: REASON FOR TESTING: PATIENT PRESENTED TO THE ED ON 04/13/18 WITH INTERMITTENT EPISODES OF MIDSTERNAL SHARP CHEST PAINS, ALTHOUGH AT OTHER TIMES HIS CHEST PAIN WILL BE A DULL PRESSURE. CHEST PAIN OCCURS AT REST AND WITH ACTIVITY. TROPONINS IN ER WERE NEGATIVE. PATIENT REPORTS HAVING INTERMITTENT CHEST PAIN FOR THE PAST 18 MONTHS. CHEST PAIN OCCASIONALLY WILL RADIATE TO NECK AND HE MAY HAVE DIAPHORESIS. TODAY PATIENT DENIES CHEST PAIN UPON ARRIVAL TO EXERCISE TESTING. SIGNIFICANT PAST MEDICAL HISTORY: STATUS POST RCA PCI FOR STEMI IN AUGUST 2017. TWO STENTS PLACED IN AUGUST 2017. SMOKING STATUS: SMOKER 40 YEARS, 2 PPD EXERCISE ROUTINE: DAILY ADL'S. PMH: COPD. Risk factors: Family history of coronary artery disease. Current tobacco use. Dyslipidemia. Cholesterol: 147mg/dl. HDL: 31mg/dl. LDL: 77mg/dl. Triglycerides: 313mg/dl. ALLERGIES: NO KNOWN ALLERGIES. MEDICATIONS: ACETAMINOPHEN 650 MG PRN, ASPIRIN 81 MG DAILY, ATORVASTATIN 20 MG HS, PLAVIX 75 MG DAILY, GLIPIZIDE 5 MG HS, ISOSORBIDE MONONITRATE 30 MG DAILY, METFORMIN 1000 BID, METOPROLOL 25 MG DAILY, NITROGLYCERIN 0.4 MG PRN, PANTOPRAZOLE 40 MG HS, PROAIR HFA 2 PUFFS PRN. Imaging Technique: Protocol: Cabrera protocol. Acquisition: Gated SPECT; 1 day - rest/stress. The patient was imaged in the supine position. Attenuation correction used. Isotope administration: - Rest. Tc[99m]-sestamibi. Dose: 11.7mCi. Injection time: 08:15 AM. Injection to stress time: 00:45. - Stress. Tc[99m]-sestamibi. Dose: 37.1mCi. Injection time: 10:35 PM. 1-2 min before end of exercise Baseline ECG: SINUS RHYTHM. HR 76 BPM. Stress protocol: + +---+ + + !Stage !HR !BP (mmHg) !Comments ! + +---+ + + !Baseline supine !76 !136/90 (105)! ! + +---+ + + !Baseline standing !85 !124/90 (101)! ! + +---+ + + !Stage I; 1.7mph, 10degrees; 3 min!113!152/84 (107)! ! + +---+ + + !Stage II; 2.5mph, 12degrees; 3 !117!168/84 (112)! ! !min ! ! ! ! + +---+ + + !Peak stress !129! ! ! + +---+ + + !Recovery; 1 min !115!170/80 (110)! ! + +---+ + + !1 min !101!158/84 (109)!Inject Regadenoson.! + +---+ + + !3 min !94 !140/88 (105)! ! + +---+ + + !6 min !86 !140/90 (107)! ! + +---+ + + * Stress results: STRESS TEST ENDED IN 9 MINUTES 1 SECOND DUE TO FATIGUE. PATIENT DID NOT MEET TARGET HEART RATE. NORMAL HEART RATE AND BLOOD PRESSURE RESPONSE TO EXERCISE. MAX HEART RATE: 129 76 % OF TARGET HEART RATE. MET'S: 1035 RARE PAC'S WITH EXERCISE. NO ANGINA NO SIGNIFICANT ST SEGMENT CHANGES. FUNCTIONAL CAPACITY: AVERAGE CAPACITY. TRANSITIONED TO LEXISCAN BECAUSE TARGET HEART RATE NOT ACHIEVED. LEXISCAN PROTOCOL STRESS TEST ENDED IN 7 MINUTES 13 SECONDS. NORMAL HEART RATE AND BLOOD PRESSURE RESPONSE TO LEXISCAN INJECTION. NO ANGINA. NO SIGNIFICANT ST SEGMENT CHANGES. Maximal heart rate during stress was 129bpm (76% of maximal predicted heart rate). The maximal predicted heart rate was 169bpm. The target heart rate was not achieved. The rate-pressure product for the peak heart rate and blood pressure was 05381eu Hg/min. Myocardial perfusion: Imaging information: gated. Left ventricular size is normal. No myocardial perfusion defects noted. Ventricular Function (Wall Motion): The calculated left ventricular ejection fraction after stress: 70%. LV global systolic function is normal. No left ventricular regional motion abnormality. Study data: Angeles Bowens MD supervised and was readily available during the procedure. This study was interpreted by [facility]. Study status: Routine. Consent: The risks, benefits, and alternatives to the procedure were explained to the patient and informed consent was obtained. Procedure: Initial setup. A baseline ECG was recorded. Surface ECG leads and manual cuff blood pressure measurements were monitored. Heart sounds: Normal. Lung sounds: Normal. Treadmill exercise testing was performed using the Cabrera protocol. Study completion: All catheters inserted during the procedure were removed. The patient tolerated the procedure well and was discharged from the lab. Discharge: The patient left the laboratory in stable condition. Birthdate: Patient birthdate: 1965. Sex: Gender: male. Study date: Study date: 04/23/2018. Study time: 00:01 AM. Signature Documentation: - The imaging portion of this study was interpreted by Nuclear Comic Illustrator Angeles Bowens MD. - The imaging portion of this study was interpreted by Nuclear Radiologist Jeovanny Larson MD. - The Stress ECG portion of this study was interpreted by Angeles Bowens MD. Electronically signed by Angeles Bowens 04/23/2018 15:04 Ordering provider: Jg Stubbs M.D. CC: ANGELES BOWENS MD Dictated by: Jeovanny Larson M.D.04/23/18 1400 <Electronically signed by Jeovanny Larson M.D.>04/24/18 1256 Disclaimer: The [facility] radiologist is signing only the Nuclear Medicine MPI Imaging exam portion of the report. Transcribed by: Lottie Sanchez04/24/18 0828 This is privileged, confidential information intended only for the provider named. Any use or distribution by any person other than this provider is st rictly prohibited. If you receive this report in error, please notify us immediately at [phone] and return the original report to us Echocardiogram Summary: 02/01: LVEF 55-60%, no sig valve dz. Carotid Artery Summary:: 01/01: No evidence of a hemodynamically significant carotid stenosis. Pulmonary Function Summary: 09/03: mild airflow obstruction 11/29: Mild obstructive airways disease with no significant bronchodilator response. Clinical correlation recommended. Anesthesia Assessment and Plan Anesthesia History Personal History: No History of Anesthesia Complications Family History: No Family History of Anesthesia Complications Exercise Tolerance Exercise Tolerance: Metabolic Equivalents>4 Cardiac & Pulmonary Exam Cardiac Exam: Normal S1/S2 Heart Sounds Pulmonary Exam: Clear Bilateral Breath Sounds Implantable Cardiac Device Does patient have a Pacemaker or an ICD?: No Airway Exam Known Difficult Airway: No Mallampati Class: 3 Mouth Opening: Normal (> 3cm) Thyromental Distance: Greater than 3 cm Neck Range of Motion: Limited ROM (pt reports intermittent pain and numbness in hands related to neck movement ) Neck Circumference: Thick Teeth Condition: Normal Dentition ASA Classification ASA Score: ASA 3 Emergency Case?: No NPO Status NPO Status: NPO Clears >2 hours, Solids >8 hours Anesthesia Plan Resuscitation Status: Full Code Anesthesia Technique: General Anesthesia Airway Planned: LMA Monitors Used: Standard Monitors Preoperative Comments:: 57 yo male for revision ectr. Has no GERD/reflux symptoms today, states last time (when he had an ETT) was uncommon for him. Sig PMHx: CAD (2018, 2020, 3 stents, denies nitro use), HTN, CARLOTA, COPD (trelgy, albuterol. well controlled), GERD (well controlled), depression, anxiety, DM (last A1c 7.4, empagliflozin, degludec, lispro-aabc, metformin), peripheral neuropathy (DM, spinal stenosis). Previous Anes: - ulnar nerve decompression, prop/sevo/fent, glide 4 grade 1, masked with OPA - difficult. ETT used due to reflux and DM. - wrist cyst, ketamine/prop, natural airway, no issues. - multiple colo/egds, prop, natural airway, no issues. - TURBT, prop, natural airway, albuterol, no issues.
[2023-11-14 09:06] VITALS: BP 114/77; PULSE 77; RESP 16; TEMP 36.1; O2SAT 99
[2023-11-14 10:04] VITALS: BMI 40.0
[2023-11-14] MEDS: Acetaminophen 500 MG TAB 1000 MG PO (10:05)
[2023-11-14] MEDS: Celecoxib 200 MG CAP 400 MG PO (10:05)
--- NOTE | 2023-11-14 10:07 | W.PREOPHP ---
Assessment and Plan Assessment and plan (1) Carpal tunnel syndrome of left wrist: Status: Acute Assessment and plan: Samy is a 57-year-old male who is status post left carpal tunnel release in addition to cubital tunnel release. Unfortunately, he continues to have some pain and numbness about the hand consistent with recurrent and incomplete treatment of his carpal tunnel. He has been treated with steroids and has had repeat nerve conduction studies which do show inflammation of the median nerve and compression of the carpal tunnel. Therefore, I offered repeat carpal tunnel release to be done in an open fashion. I would also try to mobilize a hypothenar fat graft to cover the nerve to hopefully prevent recurrence and improve healing potential. I reviewed this with him in details. I discussed the details of the surgery and also advised him that the fat graft would be a new technique for myself although similar to other technical concepts throughout my training. I also reviewed the risk doing include bleeding, infection, pain, stiffness, continued symptoms, damage to nerves or vessels, damage to muscles and tendons, need for repeat procedures. Despite these risk, he elects to proceed. History of Present Illness History of Present Illness Chief Complaint: Left hand numbness and pain Narrative: Samy is a 57-year-old male who has had ongoing numbness and tingling of his left hand. He underwent a carpal tunnel release but is continued to have some pain and numbness. While he does feel the symptoms are improved from where they were preoperatively there is still persistent and still bother him on a daily basis. MRI was performed which does show inflammation of the nerve particularly distally with maybe a small band of transverse carpal ligament still intact. The nerve was in continuity. Repeat nerve conduction studies demonstrated continued compression of the median nerve at the level the carpal tunnel without any electromyographic findings of radiculopathy. Therefore, I recommend we proceed with revision carpal tunnel release. He reports no other acute changes. No chest pain or shortness of breath. Review of Systems All systems reviewed & are unremarkable except as noted in HPI and below PFSH All Active Problems Acute UTI (Acute) Chest pain (Acute) Rectal bleeding (Acute) Chronic obstructive lung disease (Chronic) Tubular adenoma of colon (Acute 02/18/14) 04/13/20 TAx5 2 additional polyps 2023 Gross hematuria (Acute) Cubital tunnel syndrome on left (Acute) S/P Release: 06/28/2023 Carpal tunnel syndrome of right wrist (Acute) Carpal tunnel syndrome of left wrist (Acute) S/P ECTR: 06/28/2023 Gout due to renal impairment, multiple sites (Acute) Hyperuricemia (Acute) ALTMAN (nonalcoholic steatohepatitis) (Chronic 01/04/23) Elev Alk Phos, abd u/s Pituitary abnormality (Acute) Seen incidentally, normal cortisol and TSH Peripheral artery disease (Acute) [place] [facility] [place]. Orthostatic hypotension (Acute) Diabetes mellitus with stage 3a chronic kidney disease, with long-term current use of insulin (Acute) Type 2 diabetes mellitus with diabetic neuropathy, with long-term current use of insulin (Acute) Lumbosacral spondylosis without myelopathy (Acute) Memory change (Acute) Claudication (Acute) Obesity (Chronic) Bilateral lower extremity edema (Chronic) left > right; felt to be venous insufficiency, not wearing compression. Normal echo in 12/2021 Erectile dysfunction (Acute) BPH loc w urin obs/LUTS (Acute) Actinic keratosis due to exposure to sunlight (Acute) Serrated adenoma of colon (Acute ~04/2020) 04/13/20 Sessile serrated adenomax2 Diabetic peripheral neuropathy (Acute) GERD (gastroesophageal reflux disease) (Acute) HTN (hypertension) (Chronic) Smoker (Acute) 1/2 pack daily CAD S/P percutaneous coronary angioplasty (Chronic 08/28/17) Hyperlipidemia (Chronic) CARLOTA (obstructive sleep apnea) (Chronic) Not using CPAP Depression with anxiety (Chronic) resistant to treatment with antidepressants Medical History Colon polyp, hyperplastic (~04/2020) 04/13/20 HP x19 Pyelonephritis due to Escherichia coli History of left heart catheterization 10/05/22 [facility] 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 Cervical disc disease Chronic neck pain Thoracic spine pain (07/17/15) Spondylosis of cervical region without myelopathy or radiculopathy (04/17/15) Chronic pain syndrome (09/30/16) 08/19/16-CONTROLLED SUBSTANCE AGREEMENT-APPROVED FOR 3 MONTHS Chronic left-sided low back pain with left-sided sciatica (12/03/15) Blindness, 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 Acute nontraumatic kidney injury Parastomal hernia Surgical History Ganglion cyst of dorsum of right wrist S/P Excision: 06/06/2023 Status post vasectomy Status post Luisana fundoplication Status post inguinal hernia repair Status post carpal tunnel release History of esophagogastroduodenoscopy (~04/2023) History of incisional hernia repair with mesh right ulnar graft left shoulder repair Luisana Fundoplication Colonoscopy - MAC (~04/2023) 02/18/14 Family History Father , age 74 Diabetes Alcohol abuse sober in later years Essential hypertension Hyperlipidemia Cancer Mother , age 72 Diabetes Essential hypertension Heart disease Hyperlipidemia Mental disorder pt thinks she has bipolar Depression Brother Hyperlipidemia Depression Diabetes Heart disease Hypertension Sister Alcohol abuse Depression Stroke Substance abuse Sister Depression Heart disease Hypertension Brother Hyperlipidemia Hypertension Brother , age 29 Alcohol abuse Depression Substance abuse Social History Smoking/Tobacco Use Status: Current every day Tobacco Type: cigarettes Smoking packs per day: 2 Smoking cigarettes per day: 40.0 Tobacco: How many years used: 24 Smokeless tobacco user: snuff Quit status: considering quitting Second Hand Exposure: Yes Counseling given: provider counseling Smoking risk assessment performed?: Yes Alcohol Intake: current Alcohol Intake frequency: holidays/special occasions only Alcohol type: hard liquor Drug use: Never Substance use type: does not use Caregiver/Support person: No Household members: spouse and family Housing: house Communication Needs: None Do you need help understanding health information?: Rarely 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 Pets and animals: Yes Pets and animals: dog(s) Sexually active: No Do you think of yourself as: straight/heterosexual Current gender identity: male What is your relationship status?: How often do you talk on the phone with friends or family?: once per week How often do you get together with friends or relatives?: once per week How often do you attend jainism or rastafari services?: decline to answer Do you belong to any clubs or organized social groups?: no Panel score (0-1 are the most socially isolated patients): 1 Duration: decline to answer Frequency: decline to answer Mayela/Pentecostal: No preference Special mayela needs: No Seatbelt use: always Helmet use: Yes Helmet use: always Drive intox or ride w/intox 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 liraglutide (From Victoza) AdvReac Intermediate GI upset Verified 11/14/23 09:55 Home Medications ?Medication ?Instructions ?Recorded ?Confirmed ?Type aspirin 81 mg tablet,delayed 81 mg PO DAILY 08/28/17 11/14/23 History release (Aspir-) vitamin B complex (B 1 tab PO DAILY 08/19/19 11/14/23 History Complex-Vitamin B12 tablet) albuterol sulfate 90 mcg/actuation 2 puff inhalation Q6H PRN 09/30/22 11/14/23 Rx aerosol inhaler shortness of breath or wheezing #8.5 grams blood-glucose sensor (Dexcom G7 #1 ea 09/30/22 10/24/23 Rx Sensor device) nitroglycerin 0.4 mg sublingual See Rx Instructions .Route 09/30/22 11/14/23 Rx tablet .COMPLEX #100 tabs pen needle, diabetic 31 gauge x #500 ea 12/01/22 10/24/23 Rx 1/4 (Comfort EZ Pen Nunda) metoprolol succinate 50 mg 25 mg (1/2 x 50 mg) PO DAILY #90 12/21/22 11/14/23 Rx tablet,extended release 24 hr tabs torsemide 20 mg tablet 40 mg (2 x 20 mg) PO DAILY #180 02/10/23 11/14/23 Rx tabs tamsulosin 0.4 mg capsule (Flomax) 0.4 mg PO DAILY #90 caps 04/05/23 11/14/23 Rx allopurinol 100 mg tablet 200 mg (2 x 100 mg) PO DAILY #180 05/16/23 11/14/23 Rx tabs glucagon 3 mg/actuation nasal spray 3 mg intranasal ONCE PRN 05/16/23 11/14/23 Rx hypoglycemia #2 ea acetaminophen 500 mg tablet 1,000 mg (2 x 500 mg) PO TID #90 06/28/23 11/14/23 Rx tabs ibuprofen 600 mg tablet 600 mg PO TID PRN pain #90 tabs 06/28/23 11/14/23 Rx empagliflozin 25 mg tablet 25 mg PO DAILY #90 tabs 07/13/23 11/14/23 Rx atorvastatin 80 mg tablet 80 mg PO QHS #90 tabs 10/02/23 11/14/23 Rx insulin lispro-aabc 200 unit/mL (3 40 unit (0.2 mL) subcut QACHS #18 10/05/23 11/10/23 Rx mL) subcutaneous pen mL pantoprazole 40 mg tablet,delayed 40 mg PO BID #180 tabs 10/09/23 11/14/23 Rx release fluticasone fur. 200 mcg-umeclid 1 inh inhalation DAILY #60 ea 10/23/23 11/14/23 Rx 62.5 mcg-vilant 25 mcg inhalat.powder (Trelegy Ellipta) alprazolam 0.5 mg tablet 0.5 mg PO ONCE PRN claustrophobia 10/24/23 11/14/23 Rx #2 tabs insulin degludec 200 unit/mL (3 160 unit subcut HS 10/24/23 11/14/23 History mL) subcutaneous pen colchicine 0.6 mg tablet (Colcrys) See Rx Instructions PO .COMPLEX 10/31/23 11/14/23 Rx #30 tabs folic acid 1 mg tablet 1 mg PO DAILY #90 tabs 10/31/23 11/14/23 Rx hydrocodone 5 mg-acetaminophen 325 1 tab PO Q6H PRN severe pain #6 11/14/23 Rx mg tablet tabs Exam Const General: cooperative, healthy appearing, comfortable and no acute distress Resp Effort & Inspection: normal respiratory effort Auscultation: clear to auscultation bilaterally Cardio Rate: regular rate Rhythm: regular rhythm Results Last Vital Signs Temp 36.1 C L 11/14/23 09:06 Pulse 77 11/14/23 09:06 Resp 16 11/14/23 09:06 BP 114/77 11/14/23 09:06 Pulse Ox 99 11/14/23 09:06
--- NOTE | 2023-11-14 10:07 | W.PM.DSUDISC ---
Date of service: 11/14/23 Time of Service: 13:10 Discharge Plan Disposition Patient Disposition: Home Condition: Good Discharge Details Reason For Visit: Left carpal tunnel syndrome Attending Provider: Aiden Santa Primary Care Provider: Karen Barbosa Home Meds and New Rx's Prescriptions: New hydrocodone-acetaminophen 5-325 mg tablet 1 tab PO Q6H PRN (Reason: severe pain) Qty: 6 0RF Rx Instructions: Take one tablet up to every 6 hours as needed for severe postoperative pain Continued metoprolol succinate 50 mg tablet extended release 24 hr 25 mg PO DAILY Qty: 90 3RF allopurinol 100 mg tablet 200 mg PO DAILY Qty: 180 3RF glucagon 3 mg/actuation spray,non-aerosol 3 mg intranasal ONCE PRN (Reason: hypoglycemia) Qty: 2 1RF Rx Instructions: as a single dose vitamin B complex [B Complex-Vitamin B12] Tablet 1 tab PO DAILY nitroglycerin 0.4 mg tablet, sublingual See Rx Instructions .ROUTE .COMPLEX Qty: 100 3RF Dose Instruction: PLACE ONE TABLET UNDER THE TONGUE EVERY 5 MINUTES FOR UP TO 3 DOSES NEEDED FOR CHEST PAIN. IF CHEST PAIN STILL PERSISTS CONTACT 911 Rx Instructions: PLACE ONE TABLET UNDER THE TONGUE EVERY 5 MINUTES FOR UP TO 3 DOSES NEEDED FOR CHEST PAIN. IF CHEST PAIN STILL PERSISTS CONTACT 911 albuterol sulfate 90 mcg/actuation HFA aerosol inhaler 2 puff inhalation Q6H PRN (Reason: shortness of breath or wheezing) Qty: 8.5 4RF (DME) Dexcom G7 Sensor Device See Rx Instructions .Route Qty: 1 12RF Rx Instructions: As directed aspirin [Aspir-81] 81 MG tablet,delayed release (DR/EC) 81 mg PO DAILY Patient Comments: 08-28-17 per [facility]. -hb (DME) pen needle, diabetic [Comfort EZ Pen [place]] 31 gauge x 1/4 needle See Rx Instructions .ROUTE .MEDSUPPLY Qty: 500 4RF Rx Instructions: Five times daily torsemide 20 mg tablet 40 mg PO DAILY Qty: 180 1RF tamsulosin [Flomax] 0.4 mg capsule 0.4 mg PO DAILY Qty: 90 3RF empagliflozin 25 mg tablet 25 mg PO DAILY Qty: 90 3RF atorvastatin 80 mg tablet 80 mg PO QHS Qty: 90 3RF insulin lispro-aabc 200 unit/mL (3 mL) insulin pen 40 unit subcut QACHS Qty: 18 3RF Rx Instructions: up to 160 units / day. pantoprazole 40 mg tablet,delayed release (DR/EC) 40 mg PO BID Qty: 180 3RF Trelegy Ellipta 200-62.5-25 mcg blister with device 1 inh inhalation DAILY Qty: 60 4RF alprazolam 0.5 mg tablet 0.5 mg PO ONCE PRN (Reason: claustrophobia) Qty: 2 0RF Rx Instructions: Take within 3o minutes of MRI. Repeat x 1 if necessary. colchicine [Colcrys] 0.6 mg tablet See Rx Instructions PO .COMPLEX Qty: 30 12RF Rx Instructions: 2 tabs once and May repeat 1 tab 6 hours later. May use once daily until symptoms improve; folic acid 1 mg tablet 1 mg PO DAILY Qty: 90 4RF insulin degludec 200 unit/mL (3 mL) insulin pen 160 unit subcut HS Patient Comments: 80 units acetaminophen 500 mg tablet 1,000 mg PO TID Qty: 90 0RF ibuprofen 600 mg tablet 600 mg PO TID PRN (Reason: pain) Qty: 90 0RF Discharge Instructions Additional Instructions: Open Carpal Tunnel Discharge Instructions Activity: You should keep the hand/wrist elevated as much as possible for the first few days. You may use the other fingers as tolerated but avoid trying to do too much too soon. You may perform light activities with the splint in place. Dressing/Cast: Your dressing should stay in place at all times. Do NOT get it wet. You may loosen the wrap if you feel it is too tight and then rewrap more loosely. After 72 hours you may remove the dressing. Clean and dry the incision before applying a band-aide. Continue to wear splint until follow-up visit. Medications: - You should take Tylenol and Ibuprofen for baseline pain control. - You have been prescribed a stronger pain medication, Hydrocodone, for breakthrough pain. - You may apply ice over the wrist, just double bag so it doesn't get wet. Follow-up: 10-14 days Stand Alone Forms: Anesthesia Discharge Inst., Edison Reyes ([facility]) Referrals: Aiden Santa MD [ [facility] STAFF PHYSICIAN] - 11/24/23 8:30 am Equipment/Supplies: Splint Activity:: Elevate Remove Dressings/Wound Care:: 72 hours and Do Not Remove Shower/Bathe:: 72 hours and Cover Diet:: As Tolerated Discharge Orders Discharge Orders: Discharge Order (Routine); Ordered 11/14/23 Ordered By: Jaylin Stanley
[2023-11-14] MEDS: Lactated Ringers 1,000 ML 80 ML IV (10:15)
[2023-11-14] MEDS: Lidocaine 1% Multi-Dose W/EPI 1/100,000 50 ML VIAL (11:28)
[2023-11-14 12:45] VITALS: TEMP 36.6
[2023-11-14 13:00] VITALS: TEMP 36.6
--- NOTE | 2023-11-14 13:01 | W.ANESPOSTOP ---
Postoperative Evaluation Date, Time and Location Date Performed: 11/14/23 Time Performed: 13:01 Patient Location: PACU Vital Signs Most Recent Imported Vital Signs: Most Recent Vital Signs Temp Pulse Resp BP Pulse Ox 36.6 C 77 16 114/77 99 11/14/23 12:45 11/14/23 09:06 11/14/23 09:06 11/14/23 09:06 11/14/23 09:06 Pain Score Most Recent Pain Score: Most Recent Pain Score Pain Level 0 11/14/23 12:45 Assessment Mental Status: Awake (Alert & Oriented to Patient Baseline) Airway and Respiratory Function: Patent airway with normal (patient baseline) respiratory exam Cardiovascular Function: Hemodynamically Stable Hydration Status: Adequately Hydrated Nausea & Vomiting: No Nausea or Vomiting Pain: Pain is tolerable per patient Peripheral Nerve Block: Patient did not receive a nerve block
[2023-11-14 13:10] VITALS: TEMP 36.6
[2023-11-14 13:18] VITALS: BP 89/54; PULSE 64; RESP 15; TEMP 36; O2SAT 94
--- NOTE | 2023-11-14 13:40 | ROE_ITS ---
Date of service: 11/14/23 Time of Service: 11:15 Operative Note Operative Note DATE OF PROCEDURE: 11/14/23 PRE-OP DIAGNOSIS: Persistent Carpal Tunnel Syndrome - LEFT POST-OP DIAGNOSIS: same PROCEDURE: Open Carpal Tunnel Release - LEFT Hypothenar Fat Graft, from within same incision - LEFT SURGEON: Aiden Santa PANTRY STEWARD/STEWARDESS: Jaylin Stanley ANESTHESIA TYPE: General LMA/ETT Refer to Anesthesia Record ESTIMATED BLOOD LOSS: 5 PATHOLOGY: none sent TOURNIQUET TIME: 51 COMPLICATIONS: None Patient was transported to: same day Patient's condition: stable Indications: Samy is a 57 year old male who I have seen for carpal tunnel and cubital tunnel syndrome. He underwent carpal tunnel release on the left side along with cubital tunnel release. However, unlike the right side which was released previously with excellent results, he had persistent pain and numbness about the left side. This slowly improved with use of steroids and time but still continued to be limiting. Repeat nerve conduction study showed persistent carpal tunnel syndrome about the left side without any sign of radiculopathy or more central nerve issue. Therefore, I recommend we proceed with open, revision, carpal tunnel release with potential for hypothenar fat grafting to help improve potential postoperative results. I reviewed the risk of the procedure to include bleeding, infection, pain, stiffness, continued numbness, damage to nerves and vessels, damage to muscles and tendons, need for repeat procedures. Despite these risk, patient desired to proceed. Findings: There was a tightened transverse carpal ligament, most tightened distally. It was released fully released. The median nerve was inspected and was encased in dense scar tissue. This was incised carefully to release the median nerve. After releasing the last layer of the casing there was a notable expansion of the median nerve. Significant synovium was also removed from within the carpal tunnel. The ulnar aspect of the transcarpal ligament was resected and a hypothenar fat graft was elevated in position overlying the median nerve, attached to the radial flap of the transverse carpal ligament. Procedure Description: Samy was greeted in the preoperative holding area. The correct site was identified and marked. The consent was reviewed the patient and signed. The history physical was updated. Patient was taken back to the operating room and placed in the supine position with the left hand placed on a hand table. A nonsterile tourniquet was placed high up onto the arm. The hand and forearm was then prepped with ChloraPrep and draped in standard fashion. Prophylactic antibiotics in the form of cefazolin were given. A timeout was performed for safe surgery. A general anesthetic was administered. The surgical site was then injected and anesthetized with 1% lidocaine with epinephrine buffered with sodium bicarbonate. The radial border of the fourth ray was marked on the skin as well as any other pertinent surface anatomy. The limb was exsanguinated and cuff inflated to 250 mmHg. Using 15 blade the skin was incised sharply. Blunt dissection was carried down to the level of the palmar fascia. This was sharply divided making sure to protect any crossing neurovascular branches. Once this was divided the fibers of the transverse carpal ligament were identified. Using a [place], I was able to place this und erneath a portion of the transverse carpal ligament. A knife was then used to cut directly onto the [place]. This release the transverse carpal ligament. The transverse carpal ligament was reconstituted proximally. There did appear to be a density distally. It is unclear if there was complete release or not but there was a thickened layer on top of the nerve. Using the [place] to protect underlying tendons and the median nerve, I released the remainder of the transverse carpal ligament. It was notably thickened and tight. A scissor was used to complete the far aspects after making sure there is no interposed tissue. There is notable separation of the leaflets. Elevating, lifting up, the radial flap of the transverse carpal ligament exposed the median nerve. Any adhesions between it and the transverse carpal ligament were released. The nerve itself was inspected and it showed significant inflammatory changes. Did not have the glossy white appearance as expected. Therefore, I dissected off scar tissue which was on top of the nerve itself. This was then carefully elevating off the tissue very slowly. I was able to find the tissue plane which seem to be the natural tissue plane. This was released about the nerve. In doing so the nerve expanded. I was able to see the distal branches of the median nerve. This tissue was released circumferentially and resected. At this point it appeared that the median nerve had no further attachments to it. There was notable synovitis seen adjacent to the median nerve within the carpal tunnel. The median nerve is gently retracted out of the way and synovium from around the flexor tendons was resected. The wound was then fully irrigated. I then performed a hypothenar fat graft protect the nerve, promote healing, and prevent scarring. The fat of the hypothenar region was elevated off of the transverse carpal ligament. This fat plane was also developed just below the dermis leaving some fat still attached to the dermis and elevating radially and ulnarly. This fat had significant mobility such as able to cover the median nerve. The ulnar aspect of the transverse carpal ligament was resected. I then released the tourniquet. There was no significant bleeding seen. The wound was irrigated. The hypothenar fat was then sutured to the radial leaflet of the transverse carpal ligament. This was done in a pants over vest type fashion such that the fat was underneath the radial edge of the transverse carpal ligament, overlying the median nerve. This was done with a #3-0 Monocryl in multiple locations. The skin and deeper tissues were closed with a interrupted 4-0 nylon suture. No excessive bleeding from the wound. 4 x 4 gauze was applied followed by Kerlix wrap and an Dawson wrap. The hand was placed into a removable brace. At the end the case all counts are correct. The patient tolerated the procedure well and was transferred back to the day surgery area in a stable condition.
[2023-11-14 13:55] VITALS: BP 89/61; PULSE 60; RESP 16; TEMP 36.1; O2SAT 94
== END 2023-11-14 14:05 | disposition home or self-care (01) ==
PROVIDERS: PCP Family Medicine; Visit Provider Student in an Organized Health Care Education/Training Program
PROC: (CPT 64721; principal; 2023-11-14 12:15)
DX: G56.02 Carpal tunnel syndrome, left upper limb (principal)
CPT/HCPCS: 14040; 64721; J0690; J1100; J1885; J2004; J2250; J2371; J2405; J2704

== ENCOUNTER → 2023-11-24 08:14 | Outpatient (BNVA) | payer MEDICARE, OTHER, SELFPAY | PROVIDERS: PCP Family Medicine; Referring Provider Family Medicine | DX: Z47.89 Encounter for other orthopedic aftercare (principal); R60.0 Localized edema ==

== ENCOUNTER 2023-12-10 00:32 | Emergency (ER) | payer MEDICARE, OTHER, SELFPAY ==
[2023-12-10 00:35] VITALS: BP 153/82; PULSE 83; RESP 18; TEMP 36.4; O2SAT 96
--- NOTE | 2023-12-10 00:36 | W.ED.GENAD ---
Discharge Plan Disposition Patient Disposition: Home Condition: Improving Discharge Details Clinical Impression: Right sided temporal headache Primary Care Provider: Karen Barbosa ED Provider: Jeovanny Daniels [place] Meds and New Rx's Prescriptions: Continued metoprolol succinate 50 mg tablet extended release 24 hr 25 mg PO DAILY Qty: 90 3RF allopurinol 100 mg tablet 200 mg PO DAILY Qty: 180 3RF glucagon 3 mg/actuation spray,non-aerosol 3 mg intranasal ONCE PRN (Reason: hypoglycemia) Qty: 2 1RF Rx Instructions: as a single dose vitamin B complex [B Complex-Vitamin B12] Tablet 1 tab PO DAILY nitroglycerin 0.4 mg tablet, sublingual See Rx Instructions .ROUTE .COMPLEX Qty: 100 3RF Dose Instruction: PLACE ONE TABLET UNDER THE TONGUE EVERY 5 MINUTES FOR UP TO 3 DOSES NEEDED FOR CHEST PAIN. IF CHEST PAIN STILL PERSISTS CONTACT 911 Rx Instructions: PLACE ONE TABLET UNDER THE TONGUE EVERY 5 MINUTES FOR UP TO 3 DOSES NEEDED FOR CHEST PAIN. IF CHEST PAIN STILL PERSISTS CONTACT 911 albuterol sulfate 90 mcg/actuation HFA aerosol inhaler 2 puff inhalation Q6H PRN (Reason: shortness of breath or wheezing) Qty: 8.5 4RF (DME) Dexcom G7 Sensor Device See Rx Instructions .Route Qty: 1 12RF Rx Instructions: As directed aspirin [Aspir-81] 81 MG tablet,delayed release (DR/EC) 81 mg PO DAILY Patient Comments: 08-28-17 per [facility]. -hb (DME) pen needle, diabetic [Comfort EZ Pen [place]] 31 gauge x 1/4 needle See Rx Instructions .ROUTE .MEDSUPPLY Qty: 500 4RF Rx Instructions: Five times daily torsemide 20 mg tablet 40 mg PO DAILY Qty: 180 1RF tamsulosin [Flomax] 0.4 mg capsule 0.4 mg PO DAILY Qty: 90 3RF empagliflozin 25 mg tablet 25 mg PO DAILY Qty: 90 3RF atorvastatin 80 mg tablet 80 mg PO QHS Qty: 90 3RF insulin lispro-aabc 200 unit/mL (3 mL) insulin pen 40 unit subcut QACHS Qty: 18 3RF Rx Instructions: up to 160 units / day. pantoprazole 40 mg tablet,delayed release (DR/EC) 40 mg PO BID Qty: 180 3RF Trelegy Ellipta 200-62.5-25 mcg blister with device 1 inh inhalation DAILY Qty: 60 4RF colchicine [Colcrys] 0.6 mg tablet See Rx Instructions PO .COMPLEX Qty: 30 12RF Rx Instructions: 2 tabs once and May repeat 1 tab 6 hours later. May use once daily until symptoms improve; folic acid 1 mg tablet 1 mg PO DAILY Qty: 90 4RF insulin degludec 200 unit/mL (3 mL) insulin pen 160 unit subcut HS Patient Comments: 80 units acetaminophen 500 mg tablet 1,000 mg PO TID Qty: 90 0RF ibuprofen 600 mg tablet 600 mg PO TID PRN (Reason: pain) Qty: 90 0RF Discharge Instructions Instructions: Headache, Adult ED Additional Instructions: You were seen for a right sided headache. CT scan of your head and basic labs including a sed rate are reassuring. Follow-up with Dr. Dinh as you have seen her previously. Return to the ED for any severe worsening headache, vision change, neurologic change, persistent nausea vomiting, other concerns. Referrals: Zarina Dinh MD [ [facility] - [facility] General Mode of arrival: ambulatory. Date/Time Provider Initiated Documentation: 12/10/23 00:36. Limitations to Documentation: no limitations. Information obtained by: patient, RN notes reviewed and old records reviewed. HPI Narrative: Patient presenting to ED with right-sided head and face pain. Patient denies any injury or trauma. He has had URI and congestion for about a week. Yesterday afternoon noticed pain and discomfort while chewing on the right side jaw area. [place] fine when he woke up this morning with no pain. Subsequently developed pain again in the same area after chewing/eating. Pain is constant in nature and not sharp and Angel. It has now gone up into the right taoist area. Was bothering him while trying to sleep tonight. Then noted that his blood sugar was a little low and he went to have a few skittles before actually falling asleep. This chewing action caused severe pain in the right jaw and taoist area prompting evaluation. Denies any eye pain or vision change. He is legally blind in the left eye and only has some peripheral vision. Denies any other neurologic changes. Reports no bloody nasal discharge or purulent nasal discharge. Does not feel that it is dental in nature it is chewing action that seem to bring on the pain. Denies any new neck pain. He has chronic cervical disc disease and pain. Has not had issues with chewing or eating in the past until yesterday. Related Data Home Medications ?Medication ?Instructions ?Recorded ?Confirmed aspirin 81 mg tablet,delayed 81 mg PO DAILY 08/28/17 12/10/23 release (Aspir-) vitamin B complex (B 1 tab PO DAILY 08/19/19 12/10/23 Complex-Vitamin B12 tablet) albuterol sulfate 90 mcg/actuation 2 puff inhalation Q6H PRN 09/30/22 12/10/23 aerosol inhaler shortness of breath or wheezing #8.5 grams blood-glucose sensor ([employer] G7 #1 ea 09/30/22 12/10/23 Sensor device) nitroglycerin 0.4 mg sublingual See Rx Instructions .Route 09/30/22 12/10/23 tablet .COMPLEX #100 tabs pen needle, diabetic 31 gauge x #500 ea 12/01/22 12/10/2303/16 (Comfort EZ Pen [place]) metoprolol succinate 50 mg 25 mg (1/2 x 50 mg) PO DAILY #90 12/21/22 12/10/23 tablet,extended release 24 hr tabs torsemide 20 mg tablet 40 mg (2 x 20 mg) PO DAILY #180 02/10/23 12/10/23 tabs tamsulosin 0.4 mg capsule (Flomax) 0.4 mg PO DAILY #90 caps 04/05/23 12/10/23 allopurinol 100 mg tablet 200 mg (2 x 100 mg) PO DAILY #180 05/16/23 12/10/23 tabs glucagon 3 mg/actuation nasal spray 3 mg intranasal ONCE PRN 05/16/23 12/10/23 hypoglycemia #2 ea acetaminophen 500 mg tablet 1,000 mg (2 x 500 mg) PO TID #90 06/28/23 12/10/23 tabs ibuprofen 600 mg tablet 600 mg PO TID PRN pain #90 tabs 06/28/23 12/10/23 empagliflozin 25 mg tablet 25 mg PO DAILY #90 tabs 07/13/23 12/10/23 atorvastatin 80 mg tablet 80 mg PO QHS #90 tabs 10/02/23 12/10/23 insulin lispro-aabc 200 unit/mL (3 40 unit (0.2 mL) subcut QACHS #18 10/05/23 12/10/23 mL) subcutaneous pen mL pantoprazole 40 mg tablet,delayed 40 mg PO BID #180 tabs 10/09/23 12/10/23 release fluticasone fur. 200 mcg-umeclid 1 inh inhalation DAILY #60 ea 10/23/23 12/10/23 62.5 mcg-vilant 25 mcg inhalat.powder (Trelegy Ellipta) insulin degludec 200 unit/mL (3 160 unit subcut HS 10/24/23 12/10/23 mL) subcutaneous pen colchicine 0.6 mg tablet (Colcrys) See Rx Instructions PO .COMPLEX 10/31/23 12/10/23 #30 tabs folic acid 1 mg tablet 1 mg PO DAILY #90 tabs 10/31/23 12/10/23 Previous Rx's ?Medication ?Instructions ?Recorded albuterol sulfate 90 mcg/actuation 2 puff inhalation Q6H PRN 09/30/22 aerosol inhaler shortness of breath or wheezing #8.5 grams blood-glucose sensor ([employer] G7 #1 ea 09/30/22 Sensor device) nitroglycerin 0.4 mg sublingual See Rx Instructions .Route 09/30/22 tablet .COMPLEX #100 tabs pen needle, diabetic 31 gauge x #500 ea 12/01/22 1/ (Comfort EZ Pen [place]) metoprolol succinate 50 mg 25 mg (1/2 x 50 mg) PO DAILY #90 12/21/22 tablet,extended release 24 hr tabs torsemide 20 mg tablet 40 mg (2 x 20 mg) PO DAILY #180 02/10/23 tabs tamsulosin 0.4 mg capsule (Flomax) 0.4 mg PO DAILY #90 caps 04/05/23 allopurinol 100 mg tablet 200 mg (2 x 100 mg) PO DAILY #180 05/16/23 tabs glucagon 3 mg/actuation nasal spray 3 mg intranasal ONCE PRN 05/16/23 hypoglycemia #2 ea acetaminophen 500 mg tablet 1,000 mg (2 x 500 mg) PO TID #90 06/28/23 tabs ibuprofen 600 mg tablet 600 mg PO TID PRN pain #90 tabs 06/28/23 empagliflozin 25 mg tablet 25 mg PO DAILY #90 tabs 07/13/23 atorvastatin 80 mg tablet 80 mg PO QHS #90 tabs 10/02/23 insulin lispro-aabc 200 unit/mL (3 40 unit (0.2 mL) subcut QACHS #18 10/05/23 mL) subcutaneous pen mL pantoprazole 40 mg tablet,delayed 40 mg PO BID #180 tabs 10/09/23 release fluticasone fur. 200 mcg-umeclid 1 inh inhalation DAILY #60 ea 10/23/23 62.5 mcg-vilant 25 mcg inhalat.powder (Trelegy Ellipta) colchicine 0.6 mg tablet (Colcrys) See Rx Instructions PO .COMPLEX 10/31/23 #30 tabs folic acid 1 mg tablet 1 mg PO DAILY #90 tabs 10/31/23 Allergies Allergy/AdvReac Type Severity Reaction Status Date / Time venlafaxine AdvReac Severe Nausea Verified 12/10/23 00:42 doxycycline AdvReac Intermediate Cold Verified 12/10/23 00:42 Chills, made him sick. liraglutide (From Victoza) AdvReac Intermediate GI upset Verified 12/10/23 00:42 General DIANE: 2 Review of Systems Narrative: Per HPI Exam Narrative Exam Narrative: Const: Obese male in NAD. VS per triage. HEENT: NC/AT. No face swelling. Tender over the taoist area on right. No dental percussion tenderness. No sinus tenderness. TMs mildly erythematous B. Eyes: Right pupil round and reactive. Left pupil tiny and minimally reactive. EOMI. Mild R upper eyelid ptosis. Neck: Supple. Trachea midline. Lungs: Normal respiratory effort. Neuro: A+O x 3. Normal speech, mentation, gait. Cranial nerves II - XII intact. No gross motor or sensory deficit. Medical Decision Making Patient presenting to ED with right sided jaw and head pain. Does not really describe headache. Symptoms not consistent with SAH or ICH. He is tender over the temporal but his symptoms are acute in onset and not typical for temporal arteritis. Right eye vision is normal. Pupils equal and reactive. Previously legally blind in the left eye with tiny and minimally reactive pupil. He has no sinus tenderness. TMs are clear bilaterally with mild erythema only. No dental percussion tenderness. Also denies lacrimation or rhinorrhea. No prior history is of headaches similar to this. Will obtain CT head mostly to evaluate sinuses or potential dental abscess which seems unlikely. Definitely need to check a sed rate. Will give ketorolac and prochlorperazine to see if it helps with headache. Patient's laboratory studies are unremarkable. He has stable renal function. His sed rate is 23 so no concern for temporal arteritis. Pain completely resolved after ketorolac and prochlorperazine. CT head preliminary read per radiology is unremarkable. There is no evidence of bleed. Sinuses are clear. Unsure of cause for patient's unilateral headache. Does not appear to be associated with trigeminal neuralgia, cluster headache, sinusitis. It has resolved and he is neurologically intact. Will plan discharge home. He is followed by neurology, Dr. Dinh here. May follow-up with PCP or neurology. Return precautions provided. Medical Records Medical records reviewed: Yes I reviewed the patient's medical records. Medical records narrative: Outpatient Neuro notes. Lab Data Lab results reviewed: Yes I reviewed the patient's lab results. 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 (Acute 04/12/21) Rectal bleeding (Acute) Chronic obstructive lung disease (Chronic) Tubular adenoma of colon (Acute 02/18/14) 04/13/20 TAx5 2 additional polyps 2023 Gross hematuria (Acute) Cubital tunnel syndrome on left (Acute) S/P Release: 06/28/2023 Carpal tunnel syndrome of right wrist (Acute) Carpal tunnel syndrome of left wrist (Acute) S/P ECTR: 06/28/2023 S/P OCTR: 11/14/2023 Gout due to renal impairment, multiple sites (Acute) Hyperuricemia (Acute) ALTMNA (nonalcoholic steatohepatitis) (Chronic 01/04/23) Elev Alk Phos, abd u/s Pituitary abnormality (Acute) Seen incidentally, normal cortisol and TSH Peripheral artery disease (Acute) normal ABIs at [facility] with exercise. Orthostatic hypotension (Acute) Diabetes mellitus with stage 3a chronic kidney disease, with long-term current use of insulin (Acute) Type 2 diabetes mellitus with diabetic neuropathy, with long-term current use of insulin (Acute) Lumbosacral spondylosis without myelopathy (Acute) Memory change (Acute) Claudication (Acute) Obesity (Chronic) Bilateral lower extremity edema (Chronic) left > right; felt to be venous insufficiency, not wearing compression. Normal echo in 12/2021 Erectile dysfunction (Acute) BPH loc w urin obs/LUTS (Acute) Actinic keratosis due to exposure to sunlight (Acute) Serrated adenoma of colon (Acute ~04/2020) 04/13/20 Sessile serrated adenomax2 Diabetic peripheral neuropathy (Acute) GERD (gastroesophageal reflux disease) (Acute) HTN (hypertension) (Chronic) Smoker (Acute) 1/2 pack daily CAD S/P percutaneous coronary angioplasty (Chronic 08/28/17) Hyperlipidemia (Chronic) CARLOTA (obstructive sleep apnea) (Chronic) Not using CPAP Depression with anxiety (Chronic) resistant to treatment with antidepressants Medical History Colon polyp, hyperplastic (~04/2020) 04/13/20 HP x19 Pyelonephritis due to Escherichia coli History of left heart catheterization 10/05/22 [facility] Cardiology. -hb Angina pectoris, unstable negative cardiac cath, TTE at [facility] 09/2022 History of dysphagia PUD (peptic ulcer disease) History of Diaz's esophagus Blind left eye due to an accident Cervical disc disease Chronic neck pain Thoracic spine pain (07/17/15) Spondylosis of cervical region without myelopathy or radiculopathy (04/17/15) Chronic pain syndrome (09/30/16) 08/19/16-CONTROLLED SUBSTANCE AGREEMENT-APPROVED FOR 3 MONTHS Chronic left-sided low back pain with left-sided sciatica (12/03/15) Blindness, 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 Acute nontraumatic kidney injury Parastomal hernia Surgical History Ganglion cyst of dorsum of right wrist S/P Excision: 06/06/2023 Status post vasectomy Status post Luisana fundoplication Status post inguinal hernia repair Status post carpal tunnel release (~11/2023) left History of esophagogastroduodenoscopy (~04/2023) History of incisional hernia repair with mesh right ulnar graft left shoulder repair Luisana Fundoplication Colonoscopy - MAC (~04/2023) 02/18/14 Family History Father , age 74 Diabetes Alcohol abuse sober in later years Essential hypertension Hyperlipidemia Cancer Mother , age 72 Diabetes Essential hypertension Heart disease Hyperlipidemia Mental disorder pt thinks she has bipolar Depression Brother Hyperlipidemia Depression Diabetes Heart disease Hypertension Sister Alcohol abuse Depression Stroke Substance abuse Sister Depression Heart disease Hypertension Brother Hyperlipidemia Hypertension Brother , age 29 Alcohol abuse Depression Substance abuse Social History Smoking/Tobacco Use Status: Current every day Tobacco Type: cigarettes Smoking packs per day: 2 Smoking cigarettes per day: 40.0 Tobacco: How many years used: 24 Smokeless tobacco user: snuff Quit status: considering quitting Second Hand Exposure: Yes Counseling given: provider counseling Smoking risk assessment performed?: Yes Alcohol Intake: current Alcohol Intake frequency: holidays/special occasions only Alcohol type: hard liquor Drug use: Never Substance use type: does not use Caregiver/Support person: No Household members: spouse and family Housing: house Communication Needs: None Do you need help understanding health information?: Rarely 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 Pets and animals: Yes Pets and animals: dog(s) Sexually active: No Do you think of yourself as: straight/heterosexual Current gender identity: male What is your relationship status?: How often do you talk on the phone with friends or family?: once per week How often do you get together with friends or relatives?: once per week How often do you attend methodist or mormonism services?: decline to answer Do you belong to any clubs or organized social groups?: no Panel score (0-1 are the most socially isolated patients): 1 Duration: decline to answer Frequency: decline to answer Mayela/Pentecostal: No preference Special mayela needs: No Seatbelt use: always Helmet use: Yes Helmet use: always Drive intox or ride w/intox driver sales: No Do you feel safe at home: Yes Do you feel safe in your relationship?: Yes
[2023-12-10 00:41] VITALS: BP 153/82; PULSE 83; RESP 18; TEMP 36.4; O2SAT 96
--- OUTSIDE RECORDS SUMMARY | 2023-12-10 00:42 | XMS_ITS | Encounter Summary ---
[place] [address] Care Team Providers Care Predatory Hunter Name Role Phone Karen Barbosa MD Primary Care Provider [phone] Encounter Details Date Type Department Care Team (Late st Contact Info) Description 08/28/2023 1:30 PM EDT Tech Visit [place] [phone] Social History Tobacco Use Types Packs/Day Years Used Date Smoking Tobacco: Every Day Cigarettes 1 40 Smokeless Tobacco: Never Alcohol Use Standard Drinks/Week Comments Not Currently 7 (1 standard drink = 0.6 oz pur e alcohol) [facility] Inpatient Questions Answer Date Recorded Does [...] Care Team (Late st Contact Info) Description 01/10/2024 9:45 AM EDT Office Visit Neurosurgery at [facility] [place] [phone] Rosanna Clement MD [address] [place] [address] Chau Blackburn PA [address] [place] [address] 03/20/2024 10:00 AM EST Office [place] [phone] Tania [place], [facility] [address] 12/23/2024 8:00 AM EDT Office [place] [phone] Tania [place], [facility] [place] [address] documented as of this encounter Visit Diagnoses Not on filedocumented in this encounter Care Teams Predatory Hunter Relationship Specialty Start Date End Date Karen Barbosa MD [address] [place] [phone] PCP - General Family Medicine 10/04/22 documented as of this encounter
--- OUTSIDE RECORDS SUMMARY | 2023-12-10 00:42 | XMS_ITS | Encounter Summary ---
[place] [address] Care Team Providers Care Card Dealer Name Role Phone Karen Barbosa MD Primary Care Provider [phone] Encounter Details Date Type Department Care Team (Late st Contact Info) Description 05/25/2023 Telephone [place] [phone] Jaylin Chew Social History Tobacco Use Types Packs/Day Years Used Date Smoking Tobacco: Every Day Cigarettes 1 40 Smokeless Tobacco: Never Alcohol Use Standard Drinks/Week Comments Not Currently 7 (1 standard drink = 0.6 oz pur e alcohol) [facility] In[facility] Questions Answer Date [...] 9:45 AM EDT Office Visit Neurosurgery at [address] [place] [address] Rosanna Clement MD [address] [place] [address] Chau Blackburn PA [address] [place] [address] 03/20/2024 10:00 AM EST Office [place] [address] Tania [place], [facility] [place] [address] 12/23/2024 8:00 AM EDT Office [place] [address] Tania Gates, [facility] [address] documented as of this encounter Visit Diagnoses Not on filedocumented in this encounter Care Teams Card Dealer Relationship Specialty Start Date End Date Karen Barbosa MD [address] [place] [phone] PCP - General Family Medicine 10/04/22 documented as of this encounter
--- OUTSIDE RECORDS SUMMARY | 2023-12-10 00:42 | XMS_ITS | Encounter Summary ---
[place] [address] Care Team Providers Care Grants Analyst Name Role Phone Karen Barbosa MD Primary Care Provider [phone] Encounter Details Date Type Department Care Team [...] AM EDT Office Visit Neurosurgery at [address] [place] [phone] Rosanna Clement MD [address] [place] [address] [place] [address] 03/20/2024 10:00 AM EST Office [place] [phone] Tania Gates, [facility] [address] 12/23/2024 8:00 AM EDT Office [place] [address] Tania Gates, [facility] [address] documented as of this encounter Visit Diagnoses Not on filedocumented in this encounter Care Teams Grants Analyst Relationship Specialty Start Date End Date Karen Barbosa MD [address] [place] [phone] PCP - General Family Medicine 10/04/22 documented as of this encounter
--- OUTSIDE RECORDS SUMMARY | 2023-12-10 00:42 | XMS_ITS | Encounter Summary ---
Author [place] [address] Care Team Providers Care Thread Inspector Name Role Phone Karen Barbosa MD Primary Care Provider [phone] Encounter Details Date Type Department Care Team (Late st Contact Info) Description 05/17/2023 Telephone [place] [phone] Luc Tai Social History Tobacco Use Types [...] 9:45 AM EDT Office Visit Neurosurgery at [facility] [address] [place] [address] Rosanna Clement MD [address] [place] [address] Chau Blackburn PA [address] [place] [address] 03/20/2024 10:00 AM EST Office [place] [address] Tania [place], [facility] [place] [address] 12/23/2024 8:00 AM EDT Office [place] [phone] Tania Gates, [facility] [address] documented as of this encounter Visit Diagnoses Not on filedocumented in this encounter Care Teams Thread Inspector Relationship Specialty Start Date End Date Karen Barbosa MD [address] [place] [phone] PCP - General Family Medicine 10/04/22 documented as of this encounter
--- OUTSIDE RECORDS SUMMARY | 2023-12-10 00:42 | XMS_ITS | Encounter Summary ---
[place] [address] Care Team Providers Care Telecom Manager Name Role Phone Karen Barbosa MD Primary Care Provider [phone] Encounter Details Date Type Department Care Team [...] AM EDT Office Visit Neurosurgery at [address] [place] [phone] Rosanna Clement MD [address] [place] [address] [place] [address] 03/20/2024 10:00 AM EST Office [place] [phone] Tania Gates, [facility] [place] [address] 12/23/2024 8:00 AM EDT Office [place] [address] Tania Gates, [facility] [place] [address] documented as of this encounter Visit Diagnoses Not on filedocumented in this encounter Care Teams Telecom Manager Relationship Specialty Start Date End Date Karen Barbosa MD [address] [place] [phone] PCP - General Family Medicine 10/04/22 documented as of this encounter
--- OUTSIDE RECORDS SUMMARY | 2023-12-10 00:42 | XMS_ITS | Encounter Summary ---
[place] [address] Care Team Providers Care Equip Tech Name Role Phone Karen Barbosa MD Primary Care Provider Reason for Visit * Diagnostic Test (Routine) - Closed Specialty Diagnoses / Procedures Referred By Keith sanchez Referred To Contact Diagnoses Atherosclerosis of lower extremity with claudication Procedures Treadmill test - Vascular Lab Shira Gauthier MD [facility] [place] [address] [facility] Vascular Lab [address] [address] Referral ID Status Reason Start Date Expiration Date V isits Requested Visits Authorized [id number] Closed Specialty Service Requested 05/17/2023 05/16/2024 1 1 Encounter Details Date Type Department Care Team (Late st Contact Info) Description 08/28/2023 1:30 PM EDT Tech [place] [address] Jenifer Franks Atherosclerosis of lower [...] 9:45 AM EDT Office Visit Neurosurgery at [facility] [address] [place] [address] Rosanna Clement MD 10 [facility] [place] [address] Chau Blackburn PA 10 [facility] [place] [address] 03/20/2024 10:00 AM EST Office [place] [address] Tania Gates, [facility] [place] [address] 12/23/2024 8:00 AM EDT [place] [address] Tania Gates, OD [facility] [place] [address] documented as of this encounter Procedures Procedure Name Priority Date/Time Associated Diagnosis Comments TREADMILL - VASCULAR Routine 08/28/2023 1:24 PM EDT Atherosclerosis of lower extremity with claudication documented in this encounter Results * Treadmill test - Vascular Lab (08/28/2023 1:24 PM EDT) VB Text Report Department: Vascular Surgery Lab Patient: [id number] (BEL PATRICIO) CPT: 09416 Referring Physician: SHIRA GAUTHIER ?? Phone: Indications: claudication, ? exercise induced arterial disease Diabetes mellitus: yes Findings: Right ?Pressure ?? DEONTE ??Waveform ?? 1 min ??3 min ??5 min ?? Brachial ?? 105 ? DPA ?112 ? 0.97 ??Triphasic ? MAINTENANCE HELPER ?119 ? 1.03 ??Triphasic ?? 0.95 ?? 0.98 ?? 1.03 ?? Great Toe ??82 ?0.71 ? Left ? Pressure ?? DEONTE ??Waveform ?? 1 min ??3 min ??5 min ?? Brachial ?? 116 ? DPA ?112 ? 0.97 ??Triphasic ? MAINTENANCE HELPER ?126 ? 1.09 ??Triphasic ?? 1.07 ?? [...] claudication documented in this encounter Care Teams Equip Tech Relationship Specialty Start Date End Date Karen Barbosa MD [address] [place] [address] PCP - General Family Medicine 10/04/22 documented as of this encounter
--- OUTSIDE RECORDS SUMMARY | 2023-12-10 00:42 | XMS_ITS | Encounter Summary ---
Author Organization [facility] [place] [address] Care Team Providers Care Detector Car Operator Name Role Phone Karen Barbosa MD Primary Care Provider [phone] Encounter Details Date Type Department Care Team (Late st Contact Info) Description 11/07/2023 Ancillary Procedure Radiology Library at [facility] [place] [place] [address] Karen Barbosa MD [address] [place] [address] [phone] Social History Tobacco Use Types Packs/Day Years Used Date Smoking Tobacco: Every Day Cigarettes 1 40 Smokeless Tobacco: Never Alcohol Use Standard Drinks/Week Comments Not Currently 7 (1 standard drink = 0.6 oz pur e alcohol) [facility] Inpatient Questions Answer Date Recorded Does Anyone [...] 9:45 AM EDT Office Visit Neurosurgery at [facility] [address] [place] [address] Rosanna Clement MD [address] [place] [address] Chau Blackburn [place] [address] 03/20/2024 10:00 AM EST [place] [address] Tania Gates, [facility] [address] 12/23/2024 8:00 AM EDT [place] [address] Tania Gates, [facility] [place] [address] documented as of this encounter Procedures Procedure Name Priority Date/Time Associated Diagnosis Comments FILM LIBRARY STORAGE ONLY MR SPINE Routine 11/07/2023 12:00 AM EDT documented in this encounter Results * Film Library- Storage Only MR Spine (11/07/2023 12:00 AM EDT) Narrative [facility] - 11/14/2023 9:50 AM EDT This exam is auto-finalizing. It's purpose is for storage only. Karen Barbosa MD [facility] FILM LIBRARY ORD ERABLES [place], [place] documented in this encounter Visit Diagnoses Not on filedocumented in this encounter Care Teams Detector Car Operator Relationship Specialty Start Date End Date Karen Barbosa MD [address] [place] [address] PCP - General Family Medicine 10/04/22 documented as of this encounter
--- OUTSIDE RECORDS SUMMARY | 2023-12-10 00:42 | XMS_ITS | Encounter Summary ---
Author Organization [facility] Danika [facility] [place] [address] Care Team Providers Care Test Fixture Assembler Name Role Phone Karen Barbosa MD Primary Care Provider [phone] Encounter Details Date Type Department Care Team (Late st Contact Info) Description 07/25/2023 10:00 AM EDT Office [place] [phone] Heather Aguirre APRN [facility] [place] [address] Type 2 diabetes mellitus without complication, without [...] drink = 0.6 oz pur e alcohol) [facility] Inpatient Questions Answer Date Recorded Does Anyone [...] or concerns. MIRTHA Rivera Department of Endocrinology [facility] documented in this encounter Progress Notes [...] nausea and vomiting Had scope at [facility] and had vomiting after He was last [...] TWICE A DAY OneTouch Verio Flex meter [facility] TEST BLOOD GLUCOSE TWICE A DAY [id number] 100-62.5-25 mcg Disk with Device 1 puff [...] WITH BIOPSY performed by KIRSTEN DAMON at [facility] ENDOSCOPY PRO UPPER GI ENDOSCOPY, BIOPSY N/A 09/27/2018 UPPER GASTROINTESTINAL ENDOSCOPY,WITH BIOPSY SINGLE OR MULTIPLE (WRVU 2.49) performed by Luc Hdz MD at [facility] ENDOSCOPY PRO UPPER GI ENDOSCOPY, BIOPSY N/A 01/26/2021 EGD WITH BIOPSY (WRVU 2.49) performed by Nathaniel Azevedo MD at [facility] ENDOSCOPY ROTATOR CUFF REPAIR Left Allergies [...] Office Visit from 07/25/2023 in Endocrinology at [facility] Office Visit from 05/17/2023 in Vascular Surgery at [facility] Weight 134.1 kg (295 lb 9.6 oz) [...] 61 10/05/2022 No results found for: MICROALKEY, [id number] Outside Records: Date Order Result Cholesterol 146 [...] medication: no Peripheral or autonomic neuropathy: yes Janitor And Cleaner: yes Macrovascular Coronary heart disease: yes Cerebrovascular [...] 1+ Assessment and Plan: He lives in [place] with his and mother. He has 2 [...] concerns. MIRTHA Rivera Department of Endocrinology [facility] have reviewed the plan outlined above with [...] 9:45 AM EDT Office [place] [address] Rosanna [place] [address] Chau Blackburn [place] [address] 03/20/2024 10:00 AM EST Office [place] [address] Tania Gates OD [facility] [address] 12/23/2024 8:00 AM EDT Office [place] [address] Tania Gates, [facility] [place] [address] documented as of this encounter Results * (ABNORMAL) Hepatic Function Panel (07/25/2023 12:22 PM EDT) [facility] Protein, Total 7.1 6.1 - 8.0 [...] Lab Heather Aguirre APRN CHEMISTRY ORDERA BLES [facility] [place] [address] * (ABNORMAL) Hemoglobin A1c (07/25/2023 12:22 PM EDT) [facility] Hemoglobin A1c 7.8(H) 4.3 - 5.6 % [...] 36: Suppl. 1, S67-74 Estimated Average Glucose 177 mg/dL [facility] Blood 07/25/2023 12:2 2 PM EDT 07/25/2023 12:39 PM EDT Narrative Resulting Agency Comment Spec In Lab Heather Aguirre APRN CHEMISTRY ORDERA BLEDenilson [facility] [place] [id number] documented in this encounter Visit Diagnoses Diagnosis Type 2 diabetes mellitus without complication, without long-term current use of insulin- Primary Hypertriglyceridemia Pure hyperglyceridemia History of tobacco use Personal history of tobacco use, presenting hazards to health documented in this encounter Care Teams Test Fixture Assembler Relationship Specialty Start Date End Date Karen Barbosa MD [address] [place] [address] [place] [address] PCP - General Family Medicine 10/04/22 documented as of this encounter
--- OUTSIDE RECORDS SUMMARY | 2023-12-10 00:42 | XMS_ITS | Encounter Summary ---
[place] [address] Care Team Providers Care Paper Spooler Name Role Phone Karen Barbosa MD Primary Care Provider [phone] Reason for Visit * Consultation (Routine) - Closed Specialty Diagnoses / Procedures Referred By Contac t Referred To Contact Diagnoses Type 2 diabetes mellitus with ESRD (end-stage renal disease) Jeovanny Lancaster MD [facility] [place] [address] Antonina Gutierrez, professor of poultry science ID Status Reason Start Date Expiration Date V isits Requested Visits Authorized [id number] Closed Consult, Test & Treat 04/25/2023 04/24/2024 1 1 Encounter Details Date Type Department Care Team (Latest Contact Info) Description 07/25/2023 11:00 AM EDT Clinical Support [place] [address] Antonina Gutierrez, RN Type 2 diabetes mellitus without complication, without long-term current use of insulin Social History Tobacco Use Types Packs/Day Years Used Date Smoking Tobacco: Every Day Cigarettes 1 40 Smokeless Tobacco: Never Alcohol Use Standard Drinks/Week Comments Not Currently 7 (1 standard drink = 0.6 oz pur e alcohol) [facility] Inpatient Questions Answer Date Recorded [...] to face What is your language preference? Tajik Spoken: Tajik Reading: Tajik Barriers to Care/Learning/Indications for Individual DSMT Yes No No Barriers X Disease State Cognitive Disability Language Spoken Language Written Tajik Language Financial Emotional/Behavioral Family Support Cultural Diversity [...] 30 minutes Referring Provider Jeovanny Lancaster MD Billing/Receptionist Scheduler Sherie Manriquez MD documented in this encounter Plan of Treatment Upcoming Encounters Date Type Department Care Team (Late st Contact Info) Description 01/10/2024 9:45 AM EDT Office Visit Neurosurgery at [facility] [address] [place] [address] Rosanna Clement MD 10 [facility] [place] [address] Chau Blackburn PA 10 [facility] [place] [address] 03/20/2024 10:00 AM EST Office [place] [address] Tania Gates, [facility] [place] [address] 12/23/2024 8:00 AM EDT Office Visit [place] [address] Tania Gates, [facility] [place] [address] Scheduled Referrals Name Type Priority Associated Diagnoses Orde r Schedule Referral to Diabetic Education Outpatient Referral Routine Type 2 diabetes mellitus with ESRD (end-stage renal disease) Ordered: 04/25/2023 documented as of this encounter Visit Diagnoses Diagnosis Type 2 diabetes mellitus without complication, without long-term current use of insulin documented in this encounter Care Teams Paper Spooler Relationship Specialty Start Date End Date Karen Barbosa MD [address] [place] [address] PCP - General Family Medicine 10/04/22 documented as of this encounter
--- OUTSIDE RECORDS SUMMARY | 2023-12-10 00:42 | XMS_ITS | Encounter Summary ---
Author Organization [facility] [place] [address] Care Team Providers Care Motor Driver Name Role Phone Karen Barbosa MD Primary Care Provider [phone] Encounter Details Date Type Department Care Team (Latest Contact Info) Description 08/28/2023 2:30 PM EDT Office [place] [address] Shira Gauthier MD [facility] [place] [address] Atherosclerosis of lower extremity with claudication Social History Tobacco Use Types Packs/Day Years Used Date Smoking Tobacco: Every Day Cigarettes 1 40 Smokeless Tobacco: Never Tobacco Cessation:Ready to Q uit: Not Asked; Counseling Given: Not Answered Alcohol Use Standard Drinks/Week Comments Not Currently 7 (1 standard drink = 0.6 oz pur e alcohol) [facility] Inpatient Questions Answer Date Recorded Does Anyone [...] evaluated for spinal stenosis or arthritis. Shira Garnica. MD Disha, MS Section of Vascular Surgery documented in this encounter Plan of Treatment Upcoming Encounters Date Type Department Care Team (Late st Contact Info) Description 01/10/2024 9:45 AM EDT Office Visit Neurosurgery at [facility] 10 [place] [address] Rosanna Clement MD 10 [place] [address] Chau Blackburn [place] [address] 03/20/2024 10:00 AM EST Office [place] [address] Tania Gates, [facility] [place] [address] 12/23/2024 8:00 AM EDT Office [place] [address] Tania Gates, [facility] [place] [address] documented as of this encounter Visit Diagnoses Diagnosis Atherosclerosis of lower extremity with claudication documented in this encounter Care Teams Motor Driver Relationship Specialty Start Date End Date Karen Barbosa MD [address] [place] [address] PCP - General Family Medicine 10/04/22 documented as of this encounter
--- OUTSIDE RECORDS SUMMARY | 2023-12-10 00:42 | XMS_ITS | Encounter Summary ---
[place] [address] Care Team Providers Care Windows Software Developer Name Role Phone Karen Barbosa MD Primary Care Provider Encounter Details Date Type Department Care Team (Late st Contact Info) Description 09/06/2023 Ancillary Procedure [facility] [address] [place] [address] Rosanna Clement MD [address] [place] [address] Social History Tobacco Use Types Packs/Day Years [...] 9:45 AM EDT Office Visit Neurosurgery at [facility] 10 [place] [address] [place] [address] Chau Blackburn [place] [address] 03/20/2024 10:00 AM EST Office Visit Ophthalmology [place] [address] Tania Gates, [facility] [place] [address] 12/23/2024 8:00 AM EDT Office Visit Ophthal[place] [address] Tania Gates, [facility] [place] [address] documented as of this encounter Procedures Procedure Name Priority Date/Time Associated Diagnosis Comments FILM LIBRARY STORAGE ONLY MR SPINE Routine 09/06/2023 12:00 AM EDT documented in this encounter Results * Film Library- Storage Only MR Spine (09/06/2023 12:00 AM EDT) Narrative [facility] - 10/17/2023 3:43 PM EDT This exam is auto-finalizing. It's purpose is for storage only. Rosanna Clement MD IMG FILM LIBRARY ORDERABLES [place], [place] documented in this encounter Visit Diagnoses Not on filedocumented in this encounter Care Teams Windows Software Developer Relationship Specialty Start Date End Date Karen Barbosa MD [address] [place] [address] [place] [address] PCP - General Family Medicine 10/04/22 documented as of this encounter
--- OUTSIDE RECORDS SUMMARY | 2023-12-10 00:42 | XMS_ITS | Encounter Summary ---
[place] [address] Care Team Providers Care Escrow Processor Name Role Phone Karen Barbosa MD Primary Care Provider [phone] Encounter Details Date Type Department Care Team [...] AM EDT Office Visit Neurosurgery at 10 [place] [address] Rosanna Clement MD [address] [place] [address] [place] [address] 03/20/2024 10:00 AM EST Office [place] [address] Tania Gates, [facility] [place] [address] 12/23/2024 8:00 AM EDT Office [place] [address] Tnaia Gates, [facility] [place] [address] documented as of this encounter Visit Diagnoses Not on filedocumented in this encounter Care Teams Escrow Processor Relationship Specialty Start Date End Date Karen Barbosa MD [address] [place] [address] PCP - General Family Medicine 10/04/22 documented as of this encounter
--- OUTSIDE RECORDS SUMMARY | 2023-12-10 00:42 | XMS_ITS | Encounter Summary ---
[place] [address] Care Team Providers Care Irrigation Pump Installer Name Role Phone Karen Barbosa MD Primary Care Provider [phone] Reason for Referral * Consultation (Routine) - Authorized Specialty Diagnoses / Procedures Referred By Contadrian t Referred To Contact Nephrology Diagnoses Type 2 diabetes mellitus with diabetic chronic kidney disease, unspecified CKD stage, unspecified whether longitudinal float operator insulin use Stage 3a chronic kidney disease Encounter for long-term (current) use of insulin Amanda Quan, EXCELLENCE CONSULTANT [address] [place] [place] [address] [facility] Nephrology [address] [place] [phone] Referral ID Status Reason Start Date Expiration Date Visits Requested Visits Authorized [id number] Authorized Consult, Test & Treat PCP Updated and/or Approved 08/09/2023 08/05/2024 6 6 Encounter Details Date Type Department Care Team (Late st Contact Info) Description 08/09/2023 Transcribe Orders eDH Incoming Referrals [phone] Karen Barbosa MD [address] [place] [address] Type 2 diabetes mellitus with diabetic chronic kidney disease, unspecified CKD stage, unspecified whether chcf insulin use; Stage 3a chronic kidney disease; [...] EDT Office Visit Neurosurgery at [facility] 10 [place] [address] Rosanna Clement MD 10 [facility] [address] Chau Blackburn PA 10 [facility] [address] 03/20/2024 10:00 AM EST Office [place] [address] Tania Gates OD [facility] [place] [address] 12/23/2024 8:00 AM EDT Office [place] [address] Tania Gates OD [facility] [place] [address] Scheduled Referrals Name Type Priority Associated Diagnoses Orde r Schedule Referral to Nephrology Outpatient Referral Routine Type 2 diabetes mellitus with diabetic chronic kidney disease, unspecified CKD stage, unspecified whether longitudinal float operator insulin use Stage 3a chronic kidney disease Encounter for long-term (current) use of insulin Ordered: 08/09/2023 documented as of this encounter Visit Diagnoses Diagnosis Type 2 diabetes mellitus with diabetic chronic kidney disease, unspecified CKD stage, unspecified whether chcf insulin use Stage 3a chronic kidney disease Encounter for long-term (current) use of insulin documented in this encounter Care Teams Irrigation Pump Installer Relationship Specialty Start Date End Date Karen Barbosa MD [address] [place] [address] PCP - General Family Medicine 10/04/22 documented as of this encounter
--- OUTSIDE RECORDS SUMMARY | 2023-12-10 00:42 | XMS_ITS | Encounter Summary ---
Author Organization [facility] [place] [address] Care Team Providers Care Shearing Machine Feeder Name Role Phone Karen Barbosa MD Primary Care Provider Encounter Details Date Type Department Care Team (Late st Contact Info) Description 11/20/2023 [place] [address] Tania Gates OD [facility] [place] [address] Social History Tobacco Use Types Packs/Day Years Used Date Smoking Tobacco: Every Day Cigarettes 1 40 Smokeless Tobacco: Never Alcohol Use Standard Drinks/Week Comments Not Currently 7 (1 standard drink = 0.6 oz pur e alcohol) [facility] Inpatient Questions Answer Date Recorded [...] encounter Miscellaneous Notes * Telephone Encounter - Lottie Kaba COT - 11/20/2023 2:44 PM EDT Patient with gradual vision changes RE x 3 weeks. Yesterday after coming inside from bright sunlight, he was unable to see faces. After awhile vision did clear, which is typical of episodes, althoughseems to be worsening. Scheduled follow up with Dr. Gates for 12/04 at 3;20 tech time. Patient advised to call if any acute changes/other lasting symptoms. * Telephone Encounter - Zuleyka Sue - 11/20/2023 12:18 PM EDT Which eye: right Onset: gradual Duration (24 hours, days, weeks, etc): 3 weeks New problem vs ongoing: new Do symptoms come/go or constant or worsening: worsening Does the patient have a routine eye provider: No seeing SS in March Have they been seen for this problem by their provider & if so, when: no -he hopes to get in soon Brief description/details of problem in patients words: blurry vision, sees shiny light in rooms, cannot make out people's faces , issues driving Action taken? (Appt booked, phone call transferred to, etc): triage to [facility]' to call back [phone] documented in this encounter Plan of Treatment Upcoming Encounters Date Type Department Care Team (Late st Contact Info) Description 01/10/2024 9:45 AM EDT Office Visit Neurosurgery at 10 [place] [address] [place] [address] [place] [address] 03/20/2024 10:00 AM EST Office [place] [address] Tania Gates, [facility] [place] [address] 12/23/2024 8:00 AM EDT Office [place] [address] Tania Gates, [facility] [place] [address] documented as of this encounter Visit Diagnoses Not on filedocumented in this encounter Care Teams Shearing Machine Feeder Relationship Specialty Start Date End Date Karen Barbosa MD [address] [place] [address] PCP - General Family Medicine 10/04/22 documented as of this encounter
--- OUTSIDE RECORDS SUMMARY | 2023-12-10 00:42 | XMS_ITS | Encounter Summary ---
Author Organization [facility] [place] [address] Care Team Providers Care Supply Crib Attendant Name Role Phone Karen Barbosa MD Primary Care Provider Encounter Details Date Type Department Care Team (Late st Contact Info) Description 12/05/2023 3:20 PM EDT Office [place] [address] Tania Gates OD [facility] [place] [address] Diabetic eye exam; Ocular migraine; Pseudophakia of right eye; History of YAG [...] = 0.6 oz pur e alcohol) [facility] Inpatient Questions Answer Date Recorded Does Anyone [...] Progress Notes * Tania Gates, OD - 12/05/2023 3:20 PM EDT Encounter Diagnoses Name Primary? Diabetic eye exam Ocular migraine Pseudophakia of right eye History of YAG laser capsulotomy of lens, right Age-related nuclear cataract of left eye History of eye injury Astigmatism of both eyes with presbyopia Samy Patricio Jr. is a 57 y.o. with the following ophthalmic problems: Assessment and Plan: DM II, No retinopathy OU, No CSME OU - Advised BG control with diet, exercise, & meds per PCP recommendations. Ocular Migraines - Reassurance given ! H/O Eye Injury in 1981 with macular scar, slight nerve pallor OS - Noted. Cataracts OS, - Monitor for now, sooner with changes in vision. Pseudophakia OD s/p YAG Capsulotomy OD - doing well - noted. Refractive Error OU - Rx given LETI in polycarbonate and advised full time paramedic wear for eye protection! - Findings and concerns discussed with Samy and he expressed understanding. CEE 12 mos documented in this encounter Plan of Treatment Upcoming Encounters Date Type Department Care Team (Late st Contact Info) Description 01/10/2024 9:45 AM EDT Office [place] [address] Rosanna Clement MD [address] [place] [address] Chau Blackburn PA [address] [place] [address] 03/20/2024 10:00 AM EST Office [place] [address] Tania Gates, OD [facility] [place] [address] 12/23/2024 8:00 AM EDT Office [place] [address] Tania Gates, OD [facility] [place] [address] documented as of this encounter Visit Diagnoses Diagnosis Diabetic eye exam Examination of eyes and vision Ocular migraine Other forms of migraine, without mention of intractable migraine without mention of status migrainosus Pseudophakia of right eye Lens replaced by other means History of YAG laser capsulotomy of lens, right Age-related nuclear cataract of left eye Senile nuclear sclerosis History of eye injury Personal history of other injury Astigmatism of both eyes with presbyopia documented in this encounter Care Teams Supply Crib Attendant Relationship Specialty Start Date End Date Karen Barbosa MD [address] [place] [address] PCP - General Family Medicine 10/04/22 documented as of this encounter
--- OUTSIDE RECORDS SUMMARY | 2023-12-10 00:42 | XMS_ITS | Encounter Summary ---
[place] [address] Care Team Providers Care Management Services Technician Name Role Phone Karen Barbosa MD Primary Care Provider [phone] Encounter Details Date Type Department Care Team (Late st Contact Info) Description 08/30/2023 Ancillary Procedure Radiology at [facility] [address] [place] [phone] Rosanna Clement MD [address] [place] [address] Social History Tobacco Use Types Packs/Day Years [...] 9:45 AM EDT Office Visit Neurosurgery at [facility] 10 [place] [address] Rosanna Clement MD [place] [address] Chau Blackburn PA [place] [address] 03/20/2024 10:00 AM EST Office [place] [address] Tanai Gates, [facility] [place]PHTHAL[place] [address] 12/23/2024 8:00 AM EDT Office [place] [address] Tania Gates, [facility] [place]PHTHALM[place] [address] documented as of this encounter Procedures Procedure Name Priority Date/Time Associated Diagnosis Comments FILM LIBRARY STORAGE ONLY MR WRIST Routine 08/30/2023 12:00 AM EDT documented in this encounter Results * Film Library- Storage Only MR Wrist (08/30/2023 12:00 AM EDT) Narrative [facility] - 10/17/2023 3:40 PM EDT This exam is auto-finalizing. It's purpose is for storage only. Rosanna Clement MD IMG FILM LIBRARY ORDERABLES [place], [place] documented in this encounter Visit Diagnoses Not on filedocumented in this encounter Care Teams Management Services Technician Relationship Specialty Start Date End Date Karen Barbosa MD [address] [place] [address] [place] [address] PCP - General Family Medicine 10/04/22 documented as of this encounter
--- OUTSIDE RECORDS SUMMARY | 2023-12-10 00:42 | XMS_ITS | Encounter Summary ---
[place] [address] Care Team Providers Care Professor Of Rhetoric Name Role Phone Karen Barbosa MD Primary Care Provider Reason for Referral * Consultation (Routine) - Authorized Specialty Diagnoses / Procedures Referred By Contac t Referred To Contact Neurosurgery Diagnoses Spinal stenosis of lumbar region, unspecified whether neurogenic claudication present Spinal stenosis of cervical region with radiculopathy Aiden Santa MD [address] [place] [address] Rosanna [place] [address] Referral ID Status Reason Start Date Expiration Date Visits Requested Visits Authorized [id number] Authorized Consult, Test & Treat 11/24/2023 11/23/2024 1 1 Encounter Details Date Type Department Care Team (Latest Contact Info) Description 11/24/2023 Transcribe Orders eDH Incoming Referrals [phone] Aiden Santa MD [address] [place], [place] [id number] Spinal stenosis of lumbar region, unspecified whether neurogenic claudication present; Spinal stenosis of cervical region with radiculopathy Social History Tobacco Use Types Packs/Day Years [...] AM EDT Office Visit Neurosurgery at [facility] 10 [place] [address] Rosanna Clement MD 10 [facility] [place] [address] Chau Blackburn PA 10 [facility] [address] 03/20/2024 10:00 AM EST Office [place] [address] Tania Gates, [facility] [place] [address] 12/23/2024 8:00 AM EDT Office [place] [address] Tania Gates, [facility] [place] [address] Scheduled Referrals Name Type Priority Associated Diagnoses Orde r Schedule Referral to Neurosurgery Outpatient Referral Routine Spinal stenosis of lumbar region, unspecified whether neurogenic claudication present Spinal stenosis of cervical region with radiculopathy Ordered: 11/24/2023 documented as of this encounter Visit Diagnoses Diagnosis Spinal stenosis of lumbar region, unspecified whether neurogenic claudication present Spinal stenosis of cervical region with radiculopathy documented in this encounter Care Teams Professor Of Rhetoric Relationship Specialty Start Date End Date Karen Barbosa MD [address] [place] [address] PCP - General Family Medicine 10/04/22 documented as of this encounter
--- OUTSIDE RECORDS SUMMARY | 2023-12-10 00:42 | XMS_ITS | Encounter Summary ---
[place] [address] Care Team Providers Care Staging Technician Name Role Phone Karen Barbosa MD Primary Care Provider [phone] Reason for Visit * Diagnostic Test (Routine) - Closed Specialty Diagnoses / Procedures Referred By Contac t Referred To Contact Diagnoses Atherosclerosis of [place] artery of lower extremity, unspecified laterality, with unspecified presence of clinical manifestation Procedures DEONTE, legs, multiple levels Anamaria Isaacs, SUPERVISOR DIE [facility] [place] [address] [facility] Vascular Lab [address] [place] [address] Referral ID Status Reason Start Date Expiration Date V isits Requested Visits Authorized [id number] Closed Specialty Service Requested 03/22/2023 03/21/2024 1 1 Encounter Details Date Type Department Care Team (Latest Contact Info) Description 05/17/2023 8:30 AM [facility] [place] [address] Violet Almonte, RVT Atherosclerosis of [place] artery of lower extremity, unspecified laterality, with [...] EDT Office Visit Neurosurgery at [facility] 10 [place] [address] Rosanna Clement MD 10 [facility] [place] [address] Chau Blackburn PA 10 [facility] [place] [address] 03/20/2024 10:00 AM EST Office [place] [address] Tania Gates, OD [facility] [place] [address] 12/23/2024 8:00 AM EDT Office [place] [address] Tania Gates, OD [facility] [place] [address] documented as of this encounter Procedures Procedure Name Priority Date/Time Associated Diagnosis Comments DEONTE, LEGS, MULTIPLE LEVELS Routine 05/17/2023 7:48 AM EST Atherosclerosis of [place] artery of lower extremity, unspecified laterality, with unspecified presence of clinical manifestation documented in this encounter Results * DEONTE, legs, multiple levels (05/17/2023 7:48 AM EST) VB Text Report Department: Vascular Surgery Lab Patient: [id number] (BEL PATRICIO) CPT: 14656 Referring Physician: ANAMARIA ISAACS ?? Phone: Indications: [...] AM EST Anamaria Isaacs APRN VASCULAR ORDERABLES [facility] documented in this encounter Visit Diagnoses Diagnosis Atherosclerosis of [place] artery of lower extremity, unspecified laterality, with unspecified presence of clinical manifestation documented in this encounter Care Teams Staging Technician Relationship Specialty Start Date End Date Karen Barbosa MD [address] [facility] [place] [address] PCP - General Family Medicine 10/04/22 documented as of this encounter
--- OUTSIDE RECORDS SUMMARY | 2023-12-10 00:42 | XMS_ITS | Encounter Summary ---
[place] [address] Care Team Providers Care Knot Tier Name Role Phone Karen Barbosa MD Primary Care Provider [phone] Encounter Details Date Type Department Care Team (Latest Contact Info) Description 12/05/2023 Travel Social History Tobacco Use Types Packs/Day [...] AM EDT Office Visit Neurosurgery at 10 [place] [phone] Rosanna Clement MD [address] [place] [address] [place] [address] 03/20/2024 10:00 AM EST Office [place] [address] Tania Gates, [facility] [place] [address] 12/23/2024 8:00 AM EDT Office [place] [address] Tania Gates, [facility] [place] [address] documented as of this encounter Visit Diagnoses Not on filedocumented in this encounter Care Teams Knot Tier Relationship Specialty Start Date End Date Karen Barbosa MD [address] [place] [address] PCP - General Family Medicine 10/04/22 documented as of this encounter
--- OUTSIDE RECORDS SUMMARY | 2023-12-10 00:42 | XMS_ITS | Clinical Summary ---
[place] [address] Care Team Providers Care Surface Boss Name Role Phone Karen Barbosa MD Primary [...] the skin daily. 28 patch 08/08/2019 Active thiamine (Vitamin B1) Take 1 tablet by mouth daily. 30 tablet 3 08/08/2019 Active OneTouch Verio test strips Strip TEST BLOOD GLUCOSE TWICE A DAY 06/23/2020 Active OneTouch Verio Flex meter Misc TEST BLOOD GLUCOSE TWICE A DAY 06/23/2020 Active fluticasone-umeclid in-vilanter 100-62.5-25 mcg Disk with Device Inhale 1 puff into the lungs daily. Sukhdeeplljalen Ellipta Active Lantus Solostar U-100 Insulin pen [...] for Pain. 06/07/2023 Active Baqsimi 3 mg/actuation [place], Non-AerosolIndicati ons:Type 2 diabetes mellitus without complication, [...] - S/P TNK prior to transfer to [facility] - S/P Prasugrel & ASA load followed by maintenance ASA 81 mg & Prasugrel 10 mg - LVEDP 21 in the Guide Escort - Prior to Cardiac Catheterization, noted to [...] Encounters Date Type Department Care Team Description 12/05/2023 3:20 PM EDT Office Visit Ophthalmology at [facility] [address] Tania Gates, OD Diabetic eye exam; Ocular migraine; Pseudophakia of right eye; History of YAG laser capsulotomy of lens, right; Age-related nuclear cataract of left eye; History of eye injury; Astigmatism of both eyes with presbyopia 12/05/2023 Travel 11/24/2023 Transcribe Orders eDH Incoming Referrals [phone] Aiden Santa MD Spinal stenosis of lumbar region, unspecified whether neurogenic claudication present; Spinal stenosis of cervical region with radiculopathy 11/20/2023 Telephone Ophthalmology [facility] [address] Tania Gates, OD 11/07/2023 Ancillary Procedure Radiology Library at [facility] [place] [address] Kaern Barbosa MD from Last 3 Months Immunizations Name Administration [...] 9:45 AM EDT Office Visit Neurosurgery at [facility] 10 [place] [phone] Rosanna Clement MD 10 [facility] [place] [address] Chau Blackburn PA 10 [facility] [address] 03/20/2024 10:00 AM EST Office [place] [address] Tania Gates, [facility] [address] 12/23/2024 8:00 AM EDT Office [place] [address] Tania Gates, [facility] [address] Health Maintenance Due Date Last Done Comments CT Colonography 1966 Colonoscopy 1966 Colorectal Cancer Screening 1966 FIT DNA 1966 FIT 1966 Sigmoidoscopy (10 year) with FIT yearly 1966 Sigmoidoscopy 1966 DM Urine Microalbumin yearly 1976 HIV screen 1984 Hepatitis C Screening 1984 Tetanus/Diphtheria/Pertussis Vaccines (1 - Tdap) 03/31/2005 03/30/2005 Hepatitis B vaccine (0-59 yrs) (2) 07/05/20052005 Pneumococcal Vaccine: At-Ris k 5-64yrs (2 of 2 - PCV) 07/15/2007 07/14/2006 Zoster vaccine (1 of 2) 2016 Advance Directive 2021 DM Creatinine yearly 10/06/2023 10/05/2022, 10/04/2022, 12/29/2020, Additional history exists Influenza (Flu) vaccine (1 o f 1 - Influenza standard series) 11/12/2023 DM Hemoglobin A1c 6 month 01/25/20242023, 10/05/2022, 08/06/2019 DM Opthalmology Exam 12/04/2024 12/05/2023, 09/05/2022, 08/29/2022, Additional history exists Covid-19 Vaccine Completed 12/30/2022, 12/10/2021 Procedures Procedure Name Priority Date/Time Associated Diagnosis Comments FILM LIBRARY STORAGE ONLY MR SPINE Routine 11/07/2023 12:00 AM EDT HEMOGLOBIN A1C Routine 07/25/2023 12:22 PM EDT Type 2 diabetes mellitus without complication, without long-term current use of insulin BASIC METABOLIC PANEL Routine 10/05/2022 8:43 AM EDT from Last 3 Months or Most Recently Relevant to Health Maintenance Results * Film Library- Storage Only MR Spine (11/07/2023 12:00 AM EDT) Narrative [facility] - 11/14/2023 9:50 AM EDT This exam is auto-finalizing. It's purpose is for storage only. Karen aBrbosa MD [facility] FILM LIBRARY ORD ERABLES Performing Organization Address City/[facility]/ZIP Co de Phone Number [place], [place] * (ABNORMAL) Hemoglobin A1c (07/25/2023 12:22 PM EDT) Hemoglobin A1c 7.8(H) 4.3 - 5.6 % [facility] Comment: Reference Range: 4.3 - [...] Mellitus, Diabetes Care 2013; 36: Suppl. 1, S67-89 Estimated Average Glucose 177 mg/dL [facility] Blood 07/25/2023 12:2 2 PM EDT 07/25/2023 12:39 PM EDT Narrative Resulting Agency Comment Spec In Lab Heather Aguirre APRN CHEMISTRY [place] Performing Organization Address [facility] Co de Phone Number [facility] [place] [address] * Basic Metabolic Panel (non-fasting) (10/05/2022 8:43 AM EDT) Glucose 160 65 - 199 mg/dL [facility] Comment:Diabetes: >=200 mg/d L plus symptoms Blood Urea Nitrogen 18 10 - 20 mg/dL [facility] Creatinine 1.35 0.80 - 1.50 mg/dL [facility] Sodium 137 135 - 145 mmol/L [facility] Potassium 4.2 3.5 - 5.0 mmol/L [facility] Comment: Please note: ??Patients with WBC >100,000 may have falsely elevated Potassium levels. ??For accurate Potassium quantification in these patients send serum separator tube (gold top) for subsequent determinations. ??Contact the Clinical Chemistry Laboratory if there are any questions. Chloride 98 98 - 107 mmol/L [facility] Carbon Dioxide 31 22 - 31 mmol/L [facility] Anion Gap 8 5 - 15 mmol/L [facility] Calcium 9.4 8.5 - 10.5 mg/dL [facility] Est Glomerular Filtration Rate 62 >=60 mL/min/1. 73 m?? [facility] Comment: This patient's estimated GFR was [...] In Lab Rafy Wilkes MD CHEMISTRY ORDERABLES [facility] [place] [address] from Last 3 Months or Most Recently [...] capacity to make decision: Yes Care Teams Surface Boss Relationship Specialty Start Date End Date Karen Barbosa MD [address] [place] [address] PCP - General Family Medicine 10/04/22
--- OUTSIDE RECORDS SUMMARY | 2023-12-10 00:42 | XMS_ITS | Encounter Summary ---
[place] [address] Care Team Providers Care Photo Stylist Name Role Phone Karen Barbosa MD Primary Care Provider Encounter Details Date Type Department Care Team (Late st Contact Info) Description 05/04/2023 Telephone [place] [address] Radha Bernardo Social History Tobacco Use Types Packs/Day Years Used Date Smoking Tobacco: Every Day Cigarettes 1 40 Smokeless Tobacco: Never Alcohol Use Standard Drinks/Week Comments Not Currently 7 (1 standard drink = 0.6 oz pur e alcohol) [facility] Inpatient Questions Answer Date Recorded Does [...] 9:45 AM EDT Office Visit Neurosurgery at [facility] [place] [phone] Rosanna Clement MD [address] [place] [address] Chau Blackburn PA [address] [place] [address] 03/20/2024 10:00 AM EST Office [place] [address] Tania Gates, [facility] [place] [address] 12/23/2024 8:00 AM EDT Office [place] [address] Tania Gates, [facility] [place] [address] documented as of this encounter Visit Diagnoses Not on filedocumented in this encounter Care Teams Photo Stylist Relationship Specialty Start Date End Date Karen Barbosa MD [address] [place] [address] PCP - General Family Medicine 10/04/22 documented as of this encounter
--- OUTSIDE RECORDS SUMMARY | 2023-12-10 00:42 | XMS_ITS | Encounter Summary ---
[place] [address] Care Team Providers Care Job Training Specialist Name Role Phone Karen Barbosa MD Primary Care Provider [phone] Encounter Details Date Type Department Care Team (Latest Contact Info) Description 07/25/2023 12:35 PM EDT Laboratory Appointment Lab [address] [place] [address] Type 2 diabetes mellitus without [...] Department Care Team ( Contact Info) Description 01/10/2024 9:45 AM EDT Office Visit Neurosurgery at [place] [address] [place] [address] [place] [address] Chau [place] [address] 03/20/2024 10:00 AM EST Office Visit [place] [address] Tania Gates, [facility] [place] [address] 12/23/2024 8:00 AM EDT Office Visit [place] [address] Tania Gates, [facility] [place] [address] documented as of this encounter Procedures Procedure [...] Hemoglobin A1c 7.8(H) 4.3 - 5.6 % [facility] Comment: Reference Range: 4.3 [...] Mellitus, Diabetes Care 2013; 36: Suppl. 1, V15-85 Estimated Average Glucose 177 mg/dL [facility] Blood 07/25/2023 12:2 2 PM EDT 07/25/2023 12:39 PM EDT Narrative Resulting Agency Comment Spec In Lab Heather L Salgueiro PITTING MACHINE OPERATOR CHEMISTRY ORDERA BLES Performing Organization Address City/[facility]/ZIP Co de Phone Number [facility] [place] [address] * (ABNORMAL) Hepatic Function Panel (07/25/2023 12:22 PM EDT) Protein, Total 7.1 6.1 - 8.0 g/dL [facility] Albumin 4.1 3.2 - 5.2 g/dL [facility] Aspartate Aminotransferase 16 0 - 39 unit/L [facility] Alanine Aminotransferase 21 0 - 55 unit/L [facility] Alkaline Phosphatase 142(H) 40 - 130 unit/L [facility] Bilirubin, Total 0.6 0.2 - 1.3 mg/dL [facility] Bilirubin, Direct 0.2 0.0 - 0.3 mg/dL [facility] Blood 07/25/2023 12:2 2 PM EDT 07/25/2023 12:39 PM EDT Narrative Resulting Agency Comment Spec In Lab Heather L Salgueiro PITTING MACHINE OPERATOR CHEMISTRY ORDERA BLES Performing Organization Address [facility]/ZIP Co de Phone Number [facility] [place] [address] documented in this encounter Visit Diagnoses Diagnosis Type 2 diabetes mellitus without complication, without long-term current use of insulin documented in this encounter Care Teams Job Training Specialist Relationship Specialty Start Date End Date Karen Barbosa MD [address] [place] [address] PCP - General Family Medicine 10/04/22 documented as of this encounter
--- OUTSIDE RECORDS SUMMARY | 2023-12-10 00:42 | XMS_ITS | Encounter Summary ---
[place] [address] Care Team Providers Care Tomb Maker Helper Name Role Phone Karen Barbosa MD Primary Care Provider [phone] Reason for Referral * Diagnostic Test (Routine) - Closed Specialty Diagnoses / Procedures Referred By Keith sanchez Referred To Contact Diagnoses Atherosclerosis of lower extremity with claudication Procedures Treadmill test - Vascular Lab Shira Gauthier MD [facility] [place] [address] [facility] Vascular Lab [address] [place] [phone] Referral ID Status Reason Start Date Expiration Date V isits Requested Visits Authorized [id number] Closed Specialty Service Requested 05/17/2023 05/16/2024 1 1 Reason for Visit * Consultation (Routine) - Authorized Specialty Diagnoses / Procedures Referred By Keith sanchez Referred To Contact Vascular Surgery Diagnoses Peripheral vascular disease, unspecified ROUTINE, /KOJO, Zarina Baldwin MD [facility] [address] [place] [address] [facility] [address] [place] [phone] Referral ID Status Reason Start Date Expiration Date Visits Requested Visits Authorized [id number] Authorized Consult, Test & Treat PCP Updated and/or Approved 03/21/2023 03/20/2024 6 6 Encounter Details Date Type Department Care Team (Latest Contact Info) Description 05/17/2023 9:00 AM EST Office Visit [place] [address] Shira Gauthier MD [facility] [place] [address] Atherosclerosis of lower extremity with [...] - S/P [place] [facility] [place] Prasugrel & ASA load followed by maintenance ASA 81 mg & Prasugrel 10 mg - LVEDP 21 in the Application Development Director - Prior to Cardiac Catheterization, noted to [...] GLUCOSE TWICE A DAY, Disp: , Rfl: pzecomuaygw-ilmekfxva-mldsjooy 100-62.5-25 mcg Disk with Device, 1 puff [...] extremities Psych- alert oriented X3 Extremity - [place], warm, no ulceration, brisk capillary refill, no [...] Neurosurgery at [facility] [address] [place] [address] Rosanna Clement MD [address] [place] [address] Chau Blackburn PA [address] [place] [address] 03/20/2024 10:00 AM EST Office [place] [address] Tania Gates, OD [facility] [place] [address] 12/23/2024 8:00 AM EDT Office Visit Ophthalmology at [facility] [place] [address] Tania Gates, OD [facility] [place] [address] documented as of this encounter Results * Treadmill test - Vascular Lab (08/28/2023 1:24 PM EDT) VB Text Report Department: Vascular Surgery Lab Patient: [id number] (BEL PATRICIO) CPT: 64350 Referring Physician: SHIRA GAUTHIER ?? Phone: Indications: claudication, ? exercise induced arterial disease Diabetes mellitus: yes Findings: Right ?Pressure ?? DEONTE ??Waveform ?? 1 min ??3 min ??5 min ?? Brachial ?? 105 ? DPA ?112 ? 0.97 ??Triphasic ? CHIEF POWER DISPATCHER ?119 ? 1.03 ??Triphasic ?? 0.95 ?? 0.98 ?? 1.03 ?? Great Toe ??82 ?0.71 ? Left ? Pressure ?? DEONTE ??Waveform ?? 1 min ??3 min ??5 min ?? Brachial ?? 116 ? DPA ?112 ? 0.97 ??Triphasic ? CHIEF POWER DISPATCHER ?126 ? 1.09 ??Triphasic ?? 1.07 ?? [...] claudication documented in this encounter Care Teams Tomb Maker Helper Relationship Specialty Start Date End Date Karen Barbosa MD [address] [place] [address] [place] [address] PCP - General Family Medicine 10/04/22 documented as of this encounter
--- OUTSIDE RECORDS SUMMARY | 2023-12-10 00:43 | XMS_ITS | Encounter Summary ---
Author Organization [facility] [place] [address] Care Team Providers Care Court Operations Clerk Name Role Phone Karen Barbosa MD Primary Care Provider [phone] Encounter Details Date Type Department Care Team (Late st Contact Info) Description 10/04/2022 Telephone Cardiology at [address] [address] Gonzalo Shukla PA [facility] [place] [address] Social History Tobacco Use Types Packs/Day Years Used Date Smoking Tobacco: Every Day Cigarettes 1 40 Smokeless Tobacco: Never Alcohol Use Standard Drinks/Week Comments Yes 7 (1 standard drink = 0.6 oz pur e alcohol) [facility] Inpatient Questions Answer Date Recorded Does [...] AM Referring Provider: Dr. Barron Patient Location: [facility] Past Medical History: ASCVD w/ prior RCA and Lcx PCI which were patent on [facility] 12/2020 IDDM2 CKD stage III HTN HLP Tobacco use, active Brief History: Samy Patricio Jr. is a 56 y.o. male with above history presents to [facility] with resting angina which started at [...] or further need for guidance in management. Gonazlo Shukla PA-C Access Pager [phone] 10/04/2022 documented in this encounter Plan of Treatment Upcoming Encounters Date Type Department Care Team (Late st Contact Info) Description 01/10/2024 9:45 AM EDT Office Visit Neurosurgery at [facility] 10 [place] [address] Rosanna Clement MD [address] [place] [address] Chau Blackburn PA [address] [place] [address] 03/20/2024 10:00 AM EST Office [place] [address] [facility] [place] [address] 12/23/2024 8:00 AM EDT Office [place] [address] [facility] [place] [address] documented as of this encounter Visit Diagnoses Not on filedocumented in this encounter Care Teams Court Operations Clerk Relationship Specialty Start Date End Date Karen Barbosa MD [address] [place] [address] PCP - General Family Medicine 10/04/22 documented as of this encounter
--- OUTSIDE RECORDS SUMMARY | 2023-12-10 00:43 | XMS_ITS | Encounter Summary ---
[place] [address] Care Team Providers Care Twisthand Name Role Phone Karen Barbosa MD Primary Care Provider Encounter Details Date Type Department Care Team (Late st Contact Info) Description 04/24/2023 Ancillary Procedure Radiology at [facility] [address] [place] [address] Rosanna Clement MD [address] [place] [address] Social History Tobacco Use Types Packs/Day Years [...] 9:45 AM EDT Office Visit Neurosurgery at [facility] 10 [place] [address] [place]anna [place] [address] Chau Blackburn [place] [address] 03/20/2024 10:00 AM EST Office [place] [address] Tania Gates, [facility] [place] [address] 12/23/2024 8:00 AM EDT Office [place] [address] Tania Gates, [facility] [place] [address] documented as of this encounter Procedures Procedure Name Priority Date/Time Associated Diagnosis Comments FILM LIBRARY STORAGE ONLY DX WRIST Routine 04/24/2023 12:00 AM EST documented in this encounter Results * Film Library- Storage Only DX Wrist (04/24/2023 12:00 AM EST) Narrative [facility] - 10/17/2023 3:37 PM EDT This exam is auto-finalizing. It's purpose is for storage only. Rosanna Clement MD IMG FILM LIBRARY ORDERABLES [place], [place] documented in this encounter Visit Diagnoses Not on filedocumented in this encounter Care Teams Twisthand Relationship Specialty Start Date End Date Karen Barbosa MD [address] [place] [address], [place] [address] PCP - General Family Medicine 10/04/22 documented as of this encounter
--- OUTSIDE RECORDS SUMMARY | 2023-12-10 00:43 | XMS_ITS | Encounter Summary ---
[place] [address] Care Team Providers Care Glass Furnace Tender Name Role Phone Karen Barbosa MD Primary Care Provider [phone] Encounter Details Date Type Department Care Team (Late st Contact Info) Description 10/04/2022 External Results [place] [address] Social History Tobacco Use Types Packs/Day Years [...] AM EDT Office Visit Neurosurgery at [facility] [place] [address] Rosanna Clement MD [address] [place] [address] Chau Blackburn PA 10 [place] [address] 03/20/2024 10:00 AM EST Office [place] [address] Tania Gates, [facility] [place] [address] 12/23/2024 8:00 AM EDT Office [place] [address] Tania Gates, [facility] [place] [address] documented as of this encounter Procedures Procedure Name Priority Date/Time Associated Diagnosis Comments ECG SCAN Routine 10/04/2022 11:38 AM EDT documented in this encounter Results * Scan Doc: ECG (10/04/2022 11:38 AM EDT) Historical Provider MD KUMAR MGR SCAN EX T ORDR/RSLT documented in this encounter Visit Diagnoses Not on filedocumented in this encounter Care Teams Glass Furnace Tender Relationship Specialty Start Date End Date Karen Barbosa MD [address] [place] [address] PCP - General Family Medicine 10/04/22 documented as of this encounter
--- OUTSIDE RECORDS SUMMARY | 2023-12-10 00:43 | XMS_ITS | Encounter Summary ---
[place] [address] Care Team Providers Care Medical Leader Name Role Phone Robinson Vazquez APRN Primary Care Provider [phone] Encounter Details Date Type Department Care Team [...] EDT Office Visit Neurosurgery at [facility] [address] [place] [address] Rosanna Clement MD [address] [place] [address] [address] [place] [address] 03/20/2024 10:00 AM EST Office [place] [address] Tania Gates, [facility] [place] [address] 12/23/2024 8:00 AM EDT Office [place] [address] Tania Gates, [facility] [place] [address] documented as of this encounter Visit Diagnoses Not on filedocumented in this encounter Care Teams Medical Leader Relationship Specialty Start Date End Date Robinson Vazquez APRN [address] [place] [address] PCP - General Family Medicine 12/11/20 10/03/22 documented as of this encounter
--- OUTSIDE RECORDS SUMMARY | 2023-12-10 00:43 | XMS_ITS | Encounter Summary ---
[place] [address] Care Team Providers Care Hall Tender Name Role Phone Robinson Vazquez APRN Primary Care Provider [phone] Reason for Referral * Consultation (Routine) - Closed Specialty Diagnoses / Procedures Referred By Keith sanchez Referred To Contact Neurosurgery Diagnoses Cervical disc disorder Cervical spondylosis without myelopathy Amanda Quan APRN [address] [place] [address] [facility] [address] [place] [phone] Referral ID Status Reason Start Date Expiration Date V isits Requested Visits Authorized [id number] Closed Consult, Test & Treat PCP Updated and/or Approved 04/04/2022 04/04/2023 6 6 Encounter Details Date Type Department Care Team (Late st Contact Info) Description 04/04/2022 Transcribe Orders eDH Incoming Referrals [phone] Amanda Quan APRN [address] [place], [place] [id number] Cervical disc disorder; Cervical spondylosis without myelopathy [...] 9:45 AM EDT Office Visit Neurosurgery at [facility] 10 [place] [address] Rosanna Clement MD 10 [facility] [place] [address] Chau Blackburn PA [address] [facility] [place] [address] 03/20/2024 10:00 AM EST Office [place] [address] Tania Gates, [facility] [place] [address] 12/23/2024 8:00 AM EDT Office [place] [address] Tania Gates, [facility] [place] [address] Scheduled Referrals Name Type Priority Associated Diagnoses Orde r Schedule Referral to Neurosurgery Outpatient Referral Routine Cervical disc disorder Cervical spondylosis without myelopathy Ordered: 04/04/2022 documented as of this encounter Visit Diagnoses Diagnosis Cervical disc disorder Other and unspecified disc disorder of cervical region Cervical spondylosis without myelopathy documented in this encounter Care Teams Hall Tender Relationship Specialty Start Date End Date Robinson Vazquez APRN [address] [place] [address] [address] [place] [address] PCP - General Family Medicine 12/11/20 10/03/22 documented as of this encounter
--- OUTSIDE RECORDS SUMMARY | 2023-12-10 00:43 | XMS_ITS | Encounter Summary ---
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, unspecified laterality, with [...] Visit Neurosurgery at [facility] 10 [place] [address] Rosanna Clement MD [address] [address] Chau Blackburn PA 10 [place] [address] 03/20/2024 10:00 AM EST Office Visit [place] [address] Tania Gates, OD [facility] [place] [address] 12/23/2024 8:00 AM EDT Office [place] [address] Tania Gates, OD [facility] [place] [address] documented as of this encounter Procedures Procedure Name Priority Date/Time Associated Diagnosis Comments DEONTE, LEGS, MULTIPLE LEVELS Routine 02/24/2022 9:03 AM EST 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
--- OUTSIDE RECORDS SUMMARY | 2023-12-10 00:43 | XMS_ITS | Encounter Summary ---
Author Organization [facility] Danika [place] [address] Care Team Providers Care Professional Bass Fisher Name Role Phone Robinson Vazquez APRN Primary Care Provider [phone]- [phone] Encounter Details Date Type Department Care Team (Latest Contact Info) Description 08/29/2022 5:00 PM EDT Procedure [place] [address] José Miguel Anderson MD [facility] [place] [address] PCO (posterior capsular opacification), right; Pseudophakia of [...] 9:45 AM EDT Office Visit Neurosurgery at [facility] 10 [place] [address] Rosanna Clement MD 10 [facility] [place] [address] Chau Blackburn PA 10 [facility] [place] [address] 03/20/2024 10:00 AM EST Office Visit Ophthalmology at [place] [phone] [facility] [place] [address] 12/23/2024 8:00 AM EDT Office [place] [address] [facility] [place] [address] Pending Results Name Type Priority Associated Diagnoses [...] means documented in this encounter Care Teams Professional Bass Fisher Relationship Specialty Start Date End Date Robinson Vazquez, QUALITY ASSURANCE ENGINEER [address] [place] [address] PCP - General Family Medicine 12/11/20 10/03/22 documented as of this encounter
--- OUTSIDE RECORDS SUMMARY | 2023-12-10 00:43 | XMS_ITS | Encounter Summary ---
Author Organization [facility] [place] [address] Care Team Providers Care Assembler Plastic Boat Name Role Phone Karen Barbosa MD Primary Care Provider [phone] Encounter Details Date Type Department Care Team (Late st Contact Info) Description 01/04/2023 Ancillary Procedure Radiology Library at [facility] [place] [address] Karen Barbosa MD [address] [place] [id number] Social History Tobacco Use Types Packs/Day Years Used Date Smoking Tobacco: Every Day Cigarettes 1 40 Smokeless Tobacco: Never Alcohol Use Standard Drinks/Week Comments Yes 7 (1 standard drink = 0.6 oz pur e alcohol) [facility] Inpatient Questions Answer Date Recorded Does Anyone [...] AM EDT Office Visit Neurosurgery at 10 [place] [address] Rosanna Clement [place] [address] Chau Blackburn [place] [address] 03/20/2024 10:00 AM EST Office [place] [address] Tania Gates, [facility] [place] [address] 12/23/2024 8:00 AM EDT Office [place] [address] Tania Gates, [facility] [place] [address] documented as of this encounter Procedures Procedure Name Priority Date/Time Associated Diagnosis Comments FILM LIBRARY STORAGE ONLY ULTRASOUND STUDY Routine 01/04/2023 12:00 AM EDT documented in this encounter Results * Film Library- Storage Only Ultrasound Study (01/04/2023 12:00 AM EDT) Narrative [facility] - 03/02/2023 9:44 PM EST This exam is auto-finalizing. It's purpose is for storage only. Karen Barbosa MD G FILM LIBRARY ORD ERABLES [place], [place] documented in this encounter Visit Diagnoses Not on filedocumented in this encounter Care Teams Assembler Plastic Boat Relationship Specialty Start Date End Date Karen Barbosa MD [address] [place] [address] PCP - General Family Medicine 10/04/22 documented as of this encounter
--- OUTSIDE RECORDS SUMMARY | 2023-12-10 00:43 | XMS_ITS | Encounter Summary ---
[place] [address] Care Team Providers Care Treating And Pumping Supervisor Name Role Phone Karen Barbosa MD Primary Care Provider Reason for Referral * Consultation (Routine) - Authorized Specialty Diagnoses / Procedures Referred By Contac t Referred To Contact Vascular Surgery Diagnoses Peripheral vascular disease, unspecified ROUTINE, /KOJO, DEONTE Zarina Dinh MD [facility] [address] [place] [address] [facility] Vascular Surg [address] [place] [address] Referral ID Status Reason Start Date Expiration Date Visits Requested Visits Authorized [id number] Authorized Consult, Test & Treat PCP Updated and/or Approved 03/21/2023 03/20/2024 6 6 Encounter Details Date Type Department Care Team (Late st Contact Info) Description 03/21/2023 Transcribe Orders eDH Incoming Referrals [phone] Zarina Dinh MD [facility] [address] [place] [address] Peripheral vascular disease, unspecified Social History Tobacco Use Types Packs/Day Years Used Date Smoking Tobacco: Every Day Cigarettes 1 40 Smokeless Tobacco: Never Alcohol Use Standard Drinks/Week Comments Not Currently 7 (1 standard drink = 0.6 oz pur e alcohol) [facility] Inpatient Questions Answer Date Recorded [...] 9:45 AM EDT Office Visit Neurosurgery at [facility] 10 [place] [address] Rosanna Clement MD 10 [facility] [place] [address] Chau Blackburn PA 10 [facility] [address] 03/20/2024 10:00 AM EST Office [place] [address] Tania Gates OD [facility] [place] [address] 12/23/2024 8:00 AM EDT Office [place] [address] Tania Gates OD [facility] [place] [address] Scheduled Referrals Name Type Priority Associated Diagnoses Orde r Schedule Referral to Vascular Surgery Outpatient Referral Routine Peripheral vascular disease, unspecified Ordered: 03/21/2023 documented as of this encounter Visit Diagnoses Diagnosis Peripheral vascular disease, unspecified documented in this encounter Care Teams Treating And Pumping Supervisor Relationship Specialty Start Date End Date Karen Barbosa MD [address] [place] [address] PCP - General Family Medicine 10/04/22 documented as of this encounter
--- OUTSIDE RECORDS SUMMARY | 2023-12-10 00:43 | XMS_ITS | Encounter Summary ---
Author Organization [facility] [place] [address] Care Team Providers Care Hide Handler Name Role Phone Robinson Vazquez APRN Primary Care Provider [phone] Encounter Details Date Type Department Care Team (Late st Contact Info) Description 03/21/2022 10:40 AM EST Office [place] [address] Tania Gates OD [facility] [place] [address] PATIENT NOT SEEN Social History Tobacco Use [...] EDT Office Visit Neurosurgery at [place] [address] [place] [address] Rosanna Clement MD [address] [place] [address] Chau Blackburn PA 10 [place] [address] 03/20/2024 10:00 AM EST Office [place] [address] Tania Gates, [facility] [place] [address] 12/23/2024 8:00 AM EDT Office [place] [address] Tania Gates, [facility] [place] [address] documented as of this encounter Visit Diagnoses Diagnosis DH PATIENT NOT SEEN documented in this encounter Care Teams Hide Handler Relationship Specialty Start Date End Date Robinson Vazquez APRN [address] [place] [address] PCP - General Family Medicine 12/11/20 10/03/22 documented as of this encounter
--- OUTSIDE RECORDS SUMMARY | 2023-12-10 00:43 | XMS_ITS | Encounter Summary ---
[place] [address] Care Team Providers Care Location Manager Name Role Phone Robinson Vazquez APRN Primary Care Provider [phone] Encounter Details Date Type Department Care Team [...] 9:45 AM EDT Office Visit Neurosurgery at [facility] [address] [place] [address] Rosanna Clement MD [address] [place] [address] Chau Blackburn [place] [address] 03/20/2024 10:00 AM EST Office Visit [place] [address] Tania Gates, [facility] [place] [address] 12/23/2024 8:00 AM EDT Office Visit [place] [address] Tania Gates, [facility] [place] [address] documented as of this encounter Visit Diagnoses Not on filedocumented in this encounter Care Teams Location Manager Relationship Specialty Start Date End Date Robinson Vazquez APRN [address] [place] [address] PCP - General Family Medicine 12/11/20 10/03/22 documented as of this encounter
--- OUTSIDE RECORDS SUMMARY | 2023-12-10 00:43 | XMS_ITS | Encounter Summary ---
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 Name Role Phone Karen Barbosa MD Primary Care Provider Reason for Visit * Auth/Cert (Routine) Specialty Diagnoses / Procedures Referred By Keith t Referred To Contact Diagnoses Unstable angina Chest Pain Yosef Wilkes MD [facility] [place] [address] [facility] Referral ID Status Reason Start Date Expiration Date Visits Re quested Visits Authorized [id number] 1 1 Encounter Details Date Type Department Care Team (Latest Contact Info) Description 10/04/2022 5:57 PM EDT - 10/05/2022 10:45 PM EDT Hospital Encounter Heart and Vascular Unit Level 3 [place] [address] Yosef Wilkes MD [facility] [place] [address] Unstable angina Discharge Disposition: Home [...] Patricio Jr. Patient Age: 56 y.o. Language: Upper Sorbian Admit date: 10/04/2022 Discharge date and time: [...] Information: MD Anny Oh PA-C Cardiovascular Medicine [phone] Discharge Diagnoses (Hospital Problems) and Secondary Diagnoses [...] without sciatica Operations/Major Procedures and CV studies: [facility] 10/05/22: Hemodynamics: Left Heart Pressures Resting: [...] and plavix and patient was transferred to [facility] for unstable angina. Patient still reports having 2/10 chest pain currently. Patient reports no fevers, no chills, no nausea, no vomiting, no diarrhea. Patient has no other complaints. Hospital Course: #Chest pain concerning for unstable angina # ASCVD (s/p EDEN to RCA 07/2019 ; prior PCI with EDEN RCA and Lcx) # HTN # HLD Samy Patricio Jr. presented as hospital transfer from [facility] for chest pain concerning for unstable angina. At [facility], Troponin negative and EKG without ischemic changes though chest pain at rest without relief of nitro x 3 on 10/04/22. He was loaded with ASA 325mg x1 and clopidogrel (10/04/22), and IV heparin with resolution of chest pain. Home metoprolol and high intensity atorvastatin continued. Transferred to [facility] for further workup which included TTE 10/05/2022 showing preserved LVEF without regional WMAs. C 10/05/2022 showing no new obstructive disease and patent prior stents. Cath access site remained stable following procedure. Ambulated post cath without angina. Patient and preferred to be discharged night of [facility]. Follow up with Dr. Kingston as [...] by mouth daily. 25 mg Refills: 0 jzqflybeumw-fhpiacqukrvn-ppnvpdgins 100-62.5-25 mcg Commonly known as: Trelegy Ellipta [...] of 8A-5PM please call the Cardiology Clinic [phone] to speak with a nurse. All other hours please call the [facility] [phone] and ask to speak to the clinical rehabilitation aide on-call. Return to work: One week Driving: No driving for 48 hours after cath Follow up Appointments: Doctor Where Phone # Date Time PCP Karen Barbosa MD [address] [place] [address] 10/12/2022 11 AM Cardiology Padmini Kingston MD [facility] Cardiology [phone] 10/18/2022 11 AM Home oxygen therapy: N/A Arrangements for VNA/home care: N/A General Instructions None Future Appointments and Orders Future Appointments and Orders Future Appointments Provider Department Dept Phone 03/09/2023 10:40 AM Ramiro, Tania, OD; DILATION AND TEST, RAMIRO; TECH, RAMIRO Ophthalmologyat [facility] Arrive at: [facility] Area [phone] Discharge References/Attachments None Anny Ely PA-C 10/05/2022 [...] of 8A-5PM please call the Cardiology Clinic [phone] to speak with a nurse. All other hours please call the [facility] [phone] and ask to speak to the clinical rehabilitation aide on-call. Return to work: One week Driving: No driving for 48 hours after cath Follow up Appointments: Doctor Where Phone # Date Time PCP Karen Barbosa MD [address] [place] [address] 10/12/2022 11 AM Cardiology Padmini Kingston MD [facility] Cardiology [phone] 10/18/2022 11 AM Home oxygen therapy: N/A [...] TEST BLOOD GLUCOSE TWICE A DAY 06/23/2020 xrqalzbqrbc-nubusxzlv-kt lanter 100-62.5-25 mcg Disk with Device Inhale [...] note were not included. CARDIOLOGY APP2 - [facility] DAILY PROGRESS NOTE Page [phone] to reach a provider 03/10 Admit Date: [...] CPAP) who presents as hospital transfer from [facility] for unstable angina. Troponin negative and EKG [...] Discharge Location: PT: OT: PCP Robinson Vazquez, SIGN FABRICATOR [phone] Anny Ely PA-C 10/05/2022 Cardiology Staff I [...] and plavix and patient was transferred to [facility] for unstable angina. Patient still reports having [...] Post-operative nausea and vomiting Had scope at [facility] and had vomiting after Surgical History/Problems: Past Surgical History: Procedure Laterality Date CATARACT REMOVAL Right 2017 CORONARY ANGIOPLASTY WITH STENT PLACEMENT 08/2017 PRO UPPER GI ENDOSCOPY, BIOPSY 04/26/2011 EGD WITH BIOPSY performed by KIRSTEN DAMON at [facility] ENDOSCOPY PRO UPPER GI ENDOSCOPY, BIOPSY N/A 09/27/2018 UPPER GASTROINTESTINAL ENDOSCOPY,WITH BIOPSY SINGLE OR MULTIPLE (WRVU 2.49) performed by Luc Hdz MD at [facility] ENDOSCOPY PRO UPPER GI ENDOSCOPY, BIOPSY N/A 01/26/2021 EGD WITH BIOPSY (WRVU 2.49) performed by Nathaniel Azevedo MD at [facility] ENDOSCOPY ROTATOR CUFF REPAIR Left Significant [...] Misc TEST BLOOD GLUCOSE TWICE A DAY psdjgvyliox-hgagyxmwc-kvaquygw 100-62.5-25 mcg Disk with Device 1 puff [...] and plavix load and was transferred to [facility] for unstable angina TREATMENT PLAN: Unstable angina [...] Admitted From: Transfer from another hospital Location: [facility] Reason for Hospitalization: chest pain Covid Vaccination [...] Post-operative nausea and vomiting Had scope at [facility] and had vomiting after Hospitalizations Within the Past 30 Days: no previous admission in last 30 days Current Decision-Making Capacity: Self If AD's have not been completed the following surrogate would be surrogate decision maker per [place] surrogate decision making law. (Only good for 180 days) Any patient receiving care in [place] must abide by [place] law. The hierarchy for surrogate decision making [...] (i) The agent with financial power of criminal attorney or a conservator appointed in accordance [...] Current DME: none Home Address confirmed as: [address] [address] Social & Family Supports: All names listed below confirmed with patient as current and correct Extended Emergency Contact Information Primary Emergency Contact: Danica Patricio Address: [address] [address] [facility] [employer] [facility] Mobile Relation: Spouse Secondary Emergency Contact: [place] [address] [facility] Relation: Child Current Care Provided by: self [...] Yes ; Prescription Coverage: Yes Preferred Pharmacy: [facility] [address] [address] [place] Status: Patient is a : No Primary Care Provider confirmed: Karen Barbosa MD [phone] Patient/Caregiver Goals of Treatment: return home Potential [...] for further details. ISABELLE Morataya 10/05/2022 Pager [phone] documented in this encounter Plan of Treatment Upcoming Encounters Date Type Department Care Team (Late st Contact Info) Description 01/10/2024 9:45 AM EDT Office Visit Neurosurgery at [facility] [address] [place] [address] Rosanna Clement MD [address] [facility] [place] [address] Chau Blackburn PA [address] [facility] [place] [address] 03/20/2024 10:00 AM EST Office [place] [id number] Tania Gates, OD [facility] [place] [address] 12/23/2024 8:00 AM EDT Office [place] [address] Tania Gates, OD [facility] [place] [address] documented as of this encounter Procedures Procedure [...] Glucose, POC 181 65 - 199 mg/dL [facility] Comment: Supplemental ranges: <140 mg/dL before meals <180 mg/dL all other times of the day Blood 10/05/2022 7:49 PM EDT 10/05/2022 7:49 PM EDT Yosef Wilkes MD POINT OF CARE TEST O RDERABLES [facility] [place] [address] * POCT Glucose (10/05/2022 5:24 PM EDT) Glucose, POC 112 65 - 199 mg/dL [facility] Comment: Supplemental ranges: <140 mg/dL before meals <180 mg/dL all other times of the day Blood 10/05/2022 5:24 PM EDT 10/05/2022 5:24 PM EDT Yosef Wilkes MD POINT OF CARE TEST O RDERABLES [facility] [place] [address] * CARDIAC CATHETERIZATION (10/05/2022 5:15 PM EDT) Anatomical Region Laterality Modality Other Narrative 10/05/2022 5:57 PM EDT ?[facility] ? Cardiac Catheterization/Intervention Report ? Patient Name: Samy Patricio Jr. S. ? Procedure Date: 10/05/2022 ? A #: [id number] ? Primary Physician: Amanda Aleman I ? Case #: [id number] ? File Name: [id number] ? Catheterization Order Number: [id number] ? [facility] ? Final Report [place], [place] ? Patient Name: ? Samy Jr. S. Sheng ?ID#: ?[id number] ? : ?1965 ? Procedure Date: ? October 05, 2022 ?Case #: ? [id number] ? Room: ? 1 ? Case Physician: ? Amanda Aleman M.D. ? Start: ?16:47 ?Fellow: ? Yves Jim, M.D. ?Admission: ??10/04/2022 ?Nigel Hyman M.D. ? [...] was designated as ASA Class ?III. The [facility] clinical frailty scale is 4: Vulnerable. ? Diagnostic Tests: ?Electrocardiography: ? EKG was assessed by ECG. EKG was Abnormal. EKG showed ST Deviation ? >= 0.5 mm. ?Medications Prior to Procedure: ? Aspirin, Beta Alejandra and Statin. ? Indications for Diagnostic Cath: ?The priority of the diagnostic procedure was Urgent. The indication for ?the slab installer visit is ACS greater than 24 hrs. [...] angiography and left ?heart catheterization. ? Amanda I Love, M.D. ? Electronically Signed by: Amanda I Love, M.D. ? Report Finalized: 10/05/2022 ??17:51 ? Amanda Carmona MD CARDIAC CATH ORDERA BLEDenilson * ECHO COMPLETE W CONTRAST (10/05/2022 12:20 PM EDT) EF 65 [employer] Anatomical Region Laterality Modality Cardiac Other 10/05/2022 11:0 8 AM EDT Narrative 10/05/2022 1:18 PM EDT ? Echocardiogram Report Name: SAMY PATRICIO, ? Study Date: 10/05/2022 11:08 AMBP: 110/78 mmHg ? Patient Location: [id number] A : 1965 ? Height: 183 cm ? Account: [id number] Age: 56 yrs ? Weight: 135 kg Gender: Male ?BSA: 2.5 m2 Ordering Physician: YOSEF WILKES Referring Physician: OSCAR ACOSTA Performed By: MOUNA Rollins Reason For Study: Unstable angina Exam Location: [facility]. Interpretation Summary Optison was used for left [...] right atrium now measured mildly dilated. Procedure Complete-[id number]. Image enhancement Optison was used for left [...] Report Name: SAMY PATRICIO JR Study Date: 311:08 AMBP: 110/78 mmHg Patient Location: [id number] : 1965 Height: 183 cm Account: [id number] Age: 56 yrs Weight: 135 kg Gender: Male BSA: 2.5 m2 Ordering Physician: YOSEF WILKES Referring Physician: OSCRA ACOSTA Performed By: MOUNA Rollins Reason For Study: Unstable angina Exam Location: [facility]. Interpretation Summary Optison was used for left [...] night, rightatrium now measured mildly dilated. Procedure Complete-[id number]. Image enhancement Optison was used for left [...] Glucose, POC 147 65 - 199 mg/dL [facility] Comment: Supplemental ranges: <140 mg/dL before meals <180 mg/dL all other times of the day Blood 10/05/2022 11:4 5 AM EDT 10/05/2022 11:45 AM EDT Yosef Wilkes MD POINT OF CARE TEST O RDERABLES Performing Organization Address City/State/[facility] Co de Phone Number [facility] [place] [address] * Basic Metabolic Panel (non-fasting) (10/05/2022 8:43 AM EDT) Glucose 160 65 - 199 mg/dL [facility] Comment:Diabetes: >=200 mg/d L plus symptoms Blood Urea Nitrogen 18 10 - 20 mg/dL [facility] Creatinine 1.35 0.80 - 1.50 mg/dL [facility] Sodium 137 135 - 145 mmol/L [facility] Potassium 4.2 3.5 - 5.0 mmol/L [facility] Comment: Please note: ??Patients with WBC >100,000 may have falsely elevated Potassium levels. ??For accurate Potassium quantification in these patients send serum separator tube (gold top) for subsequent determinations. ??Contact the Clinical Chemistry Laboratory if there are any questions. Chloride 98 98 - 107 mmol/L [facility] Carbon Dioxide 31 22 - 31 mmol/L [facility] Anion Gap 8 5 - 15 mmol/L [facility] Calcium 9.4 8.5 - 10.5 mg/dL [facility] Est Glomerular Filtration Rate 62 >=60 mL/min/1. 73 m?? [facility] Comment: This patient's estimated [...] Wilkes MD CHEMISTRY ORDERABLES Performing Organization Address [facility] [place] [address] * Heparin (unfractionated) Level (10/05/2022 8:43 AM EDT) UF Heparin 0.11 IU/mL [facility] Comment: Heparin (anti-Xa) [...] MD HEMATOLOGY ORDERABLE S Performing Organization Address [facility] Co de Phone Number [facility] [place] [address] * POCT Glucose (10/05/2022 7:32 AM EDT) Glucose, POC 151 65 - 199 mg/dL [facility] Comment: Supplemental ranges: <140 mg/dL before meals <180 mg/dL all other times of the day Blood 10/05/2022 7:32 AM EDT 10/05/2022 7:32 AM EDT Yosef Wilkes MD POINT OF CARE TEST O LAIERASERGIO Performing Organization Address City/[facility] Co de Phone Number [facility] [place] [address] * POCT Glucose (10/05/2022 4:08 AM EDT) Glucose, POC 179 65 - 199 mg/dL [facility] Comment: Supplemental ranges: <140 mg/dL before meals <180 mg/dL all other times of the day Blood 10/05/2022 4:08 AM EDT 10/05/2022 4:08 AM EDT Yosef Wilkes MD POINT OF CARE TEST O SAEID Performing Organization Address [facility] Co de Phone Number [facility] [place] [address] * POCT Glucose (10/05/2022 1:41 AM EDT) Glucose, POC 196 65 - 199 mg/dL [facility] Comment: Supplemental ranges: <140 mg/dL before meals <180 mg/dL all other times of the day Blood 10/05/2022 1:41 AM EDT 10/05/2022 1:41 AM EDT Yosef Wilkes MD POINT OF CARE TEST O LAIERASERGIO Performing Organization Address City/[facility] Co de Phone Number [facility] [place] [address] * Differential, Automated (10/05/2022 1:04 AM EDT) Neutrophil % 65.7 % [facility] Neutrophil Absolute 5.59 1.70 - 6.10 x10(3)/[facility] Lymph % 21.5 % [facility] Lymphocytes Abs 1.8 0.9 - 3.2 x10(3)/[facility] Monocyte % 8.5 % [facility] Monocyte Abs 0.7 0.3 - 0.9 x10(3)/[facility] Eos % 3.1 % [facility] Eosinophils Abs 0.3 0.0 - 0.4 x10(3)/[facility] Basophil % 0.8 % [facility] Baso Absolute 0.1 0.0 - 0.1 x10(3)/[facility] Immature Gran % 0.40 % [facility] Comment: Immature granulocytes(IG's)percentage and absolute count will include metamyelocytes, myelocytes, and promyelocytes. Blood smears from CBCs yielding IG's will be scanned manually for concordance. If this scan disagrees with the automated IG or if promyelocytes are noted, a manual differential will be performed. Immature Gran Absolute 0.03 0.00 - 0.04 x10(3)/[facility] Blood 10/05/2022 1:04 AM EDT 10/05/2022 1:14 AM EDT Narrative Resulting Agency Comment Spec In Lab Teddy Willett MD HEMATOLOGY ORDERABLE S [facility] [place] [address] * (ABNORMAL) Hemogram (10/05/2022 1:04 AM EDT) White Blood Cell 8.5 4.0 - 9.5 x10(3)/mc L [facility] Red Blood Cell 5.63(H) 4.58 - 5.54 x10(6)/mc L [facility] Hemoglobin 16.6(H) 13.7 - 16.5 g/dL [facility] Hematocrit 51.0(H) 40.5 - 48.5 % [facility] Mean Cell Volume 90.6 82.9 - 93.1 fL [facility] Mean Cell Hemoglobin 29.5 27.5 - 32.1 pg [facility] Mean Cell Hemoglobin Concentration 32.5 32.0 - 35.7 g/dL [facility] Platelet 203 145 - 357 x10(3)/mc L [facility] RDW Standard Deviation 47.6(H) 36.0 - 45.0 fL [facility] RDW coefficient of variation 14.3(H) 11.4 - 13.8 % [facility] Mean Platelet Volume 9.7 7.6 - 12.9 fL [facility] NRBC% auto 0.0 % [facility] NRBC Absolute 0.000 0.000 - 0.000 x10(3)/mc L [facility] Blood 10/05/2022 1:04 AM EDT 10/05/2022 1:14 AM EDT Narrative Resulting Agency Comment Spec In Lab Teddy Willett MD HEMATOLOGY ORDERABLE S Performing Organization Address [facility] Co de Phone Number [facility] [place] [address] * Heparin (unfractionated) Level (10/05/2022 1:04 AM EDT) UF Heparin 0.11 IU/mL [facility] Comment: Heparin (anti-Xa) levels should be [...] MD HEMATOLOGY ORDERABLE S Performing Organization Address City/[facility] Co de Phone Number [facility] [place] [address] * (ABNORMAL) Glucose, fasting (10/05/2022 1:04 AM EDT) Glucose Fasting 188(H) 65 - 99 mg/dL [facility] Comment: ?Fasting* Glucose Interpretive [...] of Diabetes Mellitus, Position Statement from the [place] [employer]. ??Diabetes Care, Volume 33, Supplement 1, Mar 2009 Blood 10/05/2022 1:04 AM EDT 10/05/2022 1:14 AM EDT Narrative Resulting Agency Comment Spec In Lab Teddy Willett MD CHEMISTRY ORDERABLES Performing Organization Address City/[facility]/ZIP Co de Phone Number [facility] [place] [address] * Triglyceride (10/05/2022 1:04 AM EDT) Triglyceride 355 mg/dL [facility] Comment: Average Risk/Lower Risk: <150 mg/dL Borderline High Risk: 150-199 mg/dL High Risk: 200-499 mg/dL Very High Risk: >sa=835 mg/dL Blood 10/05/2022 1:04 AM EDT 10/05/2022 1:14 AM EDT Narrative Resulting Agency Comment Spec In Lab Teddy Willett MD CHEMISTRY ORDERABLES [facility] [place] [address] * HDL/Cholesterol Profile (10/05/2022 1:04 AM EDT) Cholesterol, Total 133 mg/dL M [facility] Comment: Lower Risk: <200 mg/dL Average Risk: 200-239 mg/dL Higher Risk: >be=578 mg/dL HDL Cholesterol 32 mg/dL [facility] Comment: Males: ?? Higher Risk: <40 mg/dL Females: ?? Higher Risk: <50 mg/dL Cholesterol/HDL Ratio 4.2 ratio [facility] Chol/HDL Interpretation See Note [facility] Comment: Lipid management should be guided by a patient? s ASCVD risk, goals and preferences. ACC/AHA Guidelines recommend high intensity statin if clinical ASCVD or LDL greater than or equal to 190 mg/dL. http://Medlio.com/PMI-JWL-Lhykzcvgy Measure LDL if Total Cholesterol minus HDL Cholesterol is greater than 220 mg/dL. Adults aged 40-75 with LDL 70-189 mg/dL should have their 10 year ASCVD risk estimated with the ACC/AHA ASCVD risk commercial construction estimator http://tools.acc.org/XEHOH-Aewh-Vzwytyfdl/ Statin should be discussed if risk greater [...] In Lab Teddy Willett MD CHEMISTRY ORDERABLES [facility] [place] [address] * LDL Cholesterol, Direct (10/05/2022 1:04 AM EDT) LDL Cholesterol, Direct 61 mg/dL [facility] Comment: Lowest Risk: <100 mg/dL Lower Risk: 100-129 mg/dL Borderline High Risk: 130-159 mg/dL High Risk: 160-189 mg/dL Very High Risk: >wv=714 mg/dL Blood 10/05/2022 1:04 AM EDT 10/05/2022 1:14 AM EDT Narrative Resulting Agency Comment Spec In Lab Teddy Willett MD CHEMISTRY ORDERABLES [facility] [place] [address] * (ABNORMAL) Hemoglobin A1c (10/05/2022 1:04 AM EDT) Hemoglobin A1c 7.4(H) 4.3 - 5.6 % [facility] Comment: Reference Range: 4.3 [...] Mellitus, Diabetes Care 2013; 36: Suppl. 1, Y37-77 Estimated Average Glucose 165 mg/dL [facility] Comment: eAG equivalents for [...] into estimated average glucose values. ??Diabetes Care 2008:31(8):1752-8237. Blood 10/05/2022 1:04 AM EDT 10/05/2022 1:14 AM EDT Narrative Resulting Agency Comment Spec In Lab Teddy Willett MD CHEMISTRY ORDERABLES Performing Organization Address [facility] Co de Phone Number [facility] [place] [address] * (ABNORMAL) POCT Glucose (10/04/2022 11:38 PM EDT) Pathologist [facility] Glucose, POC 292(H) 65 - 199 mg/dL [facility] Comment: Supplemental ranges: <140 mg/dL before meals <180 mg/dL all other times of the day Blood 10/04/2022 11:3 8 PM EDT 10/04/2022 11:38 PM EDT Yosef Wilkes MD POINT OF CARE TEST O RDERABLES Performing Organization Address [facility] Co de Phone Number [facility] [place] [address] * Differential, Automated (10/04/2022 9:56 PM EDT) [facility] Neutrophil % 61.6 % [facility] Neutrophil Absolute 5.06 1.70 - 6.10 x10(3)/[facility] Lymph % 26.1 % [facility] Lymphocytes Abs 2.1 0.9 - 3.2 x10(3)/[facility] Monocyte % 7.7 % [facility] Monocyte Abs 0.6 0.3 - 0.9 x10(3)/[facility] Eos % 3.5 % [facility] Eosinophils Abs 0.3 0.0 - 0.4 x10(3)/[facility] Basophil % 1.0 % [facility] Baso Absolute 0.1 0.0 - 0.1 x10(3)/[facility] Immature Gran % 0.10 % [facility] Comment: Immature granulocytes(IG's)percentage and absolute count will include metamyelocytes, myelocytes, and promyelocytes. Blood smears from CBCs yielding IG's will be scanned manually for concordance. If this scan disagrees with the automated IG or if promyelocytes are noted, a manual differential will be performed. Immature Gran Absolute 0.01 0.00 - 0.04 x10(3)/mcL [facility] Blood 10/04/2022 9:56 PM EDT 10/04/2022 10:03 PM EDT Narrative Resulting Agency Comment Spec In Lab Vivek Lee MD HEMATOLOGY ORDERAB LES [facility] [place] [address] * (ABNORMAL) Hemogram (10/04/2022 9:56 PM EDT) White Blood Cell 8.2 4.0 - 9.5 x10(3)/mc L [facility] Red Blood Cell 5.80(H) 4.58 - 5.54 x10(6)/mc L [facility] Hemoglobin 17.1(H) 13.7 - 16.5 g/dL [facility] Hematocrit 52.6(H) 40.5 - 48.5 % [facility] Mean Cell Volume 90.7 82.9 - 93.1 fL [facility] Mean Cell Hemoglobin 29.5 27.5 - 32.1 pg [facility] Mean Cell Hemoglobin Concentration 32.5 32.0 - 35.7 g/dL [facility] Platelet 220 145 - 357 x10(3)/mc L [facility] RDW Standard Deviation 47.8(H) 36.0 - 45.0 fL [facility] RDW coefficient of variation 14.4(H) 11.4 - 13.8 % [facility] Mean Platelet Volume 9.6 7.6 - 12.9 fL [facility] NRBC% auto 0.0 % [facility] NRBC Absolute 0.000 0.000 - 0.000 x10(3)/mc L [facility] Blood 10/04/2022 9:56 PM EDT 10/04/2022 10:03 PM EDT Narrative Resulting Agency Comment Spec In Lab Vivek Lee MD HEMATOLOGY ORDERAB LES Performing Organization Address City/[facility]/ZIP Co de Phone Number [facility] [place] [address] * Troponin (10/04/2022 9:56 PM EDT) Troponin-T, High Sensitivity 16 <=22 ng/L [facility] Comment: This patient's troponin [...] troponin value can be found in the [facility] Test Catalog Troponin - [facility] Test Catalog Reference: Fourth Holden Definition of Myocardial Infarction. Journal of the [place] [employer] 2018;72:3345-1414 Blood 10/04/2022 9:56 PM EDT 10/04/2022 10:03 PM EDT Narrative Resulting Agency Comment Spec In Lab Teddy Willett MD CHEMISTRY ORDERABLES Performing Organization Address City/[facility]/ZIP Co de Phone Number [facility] [place] [address] * (ABNORMAL) POCT Glucose (10/04/2022 9:35 PM EDT) Glucose, POC 344(H) 65 - 199 mg/dL [facility] Comment: Supplemental ranges: <140 mg/dL before meals <180 mg/dL all other times of the day Blood 10/04/2022 9:35 PM EDT 10/04/2022 9:35 PM EDT Yosef Wilkes MD POINT OF CARE TEST O RDERABLES Performing Organization Address City/[facility] Co de Phone Number [facility] [place] [address] * POCT Glucose (10/04/2022 6:43 PM EDT) Glucose, POC 80 65 - 199 mg/dL [facility] Comment: Supplemental ranges: <140 mg/dL before meals <180 mg/dL all other times of the day Blood 10/04/2022 6:43 PM EDT 10/04/2022 6:43 PM EDT Yosef Wilkes MD POINT OF CARE TEST O RDERABLES Performing Organization Address [facility] Co de Phone Number [facility] [place] [address] * pro-Brain Natriuretic Peptide (10/04/2022 6:40 PM EDT) NT-proBNP 40 <=124 pg/mL [facility] Blood Venous Draw / Unknown 10/04/2022 6:40 PM EDT 10/04/2022 6:52 PM EDT Narrative Resulting Agency Comment Spec In Lab Vivek Lee MD CHEMISTRY ORDERABL ES Performing Organization Address [facility] [place] [address] * Magnesium (10/04/2022 6:40 PM EDT) Magnesium 1.07 0.69 - 1.07 mmol/L [facility] Blood Venous Draw / Unknown 10/04/2022 6:40 PM EDT 10/04/2022 6:52 PM EDT Narrative Resulting Agency Comment Spec In Lab Vivek Lee MD CHEMISTRY ORDERABL ES [facility] [place] [address] * (ABNORMAL) Basic Metabolic Panel (non-fasting) (10/04/2022 6:40 PM EDT) Glucose 75 65 - 199 mg/dL [facility] Comment:Diabetes: >=200 mg/d L plus symptoms Blood Urea Nitrogen 20 10 - 20 mg/dL [facility] Creatinine 1.54(H) 0.80 - 1.50 mg/dL [facility] Sodium 140 135 - 145 mmol/L [facility] Potassium 3.4(L) 3.5 - 5.0 mmol/L [facility] Comment: Please note: ??Patients with WBC >100,000 may have falsely elevated Potassium levels. ??For accurate Potassium quantification in these patients send serum separator tube (gold top) for subsequent determinations. ??Contact the Clinical Chemistry Laboratory if there are any questions. Chloride 98 98 - 107 mmol/L [facility] Carbon Dioxide 31 22 - 31 mmol/L [facility] Anion Gap 11 5 - 15 mmol/L [facility] Calcium 9.4 8.5 - 10.5 mg/dL [facility] Est Glomerular Filtration Rate 53(L) >=60 mL/min/1. 73 m?? [facility] Comment: This patient's estimated [...] MD CHEMISTRY ORDERABL ES Performing Organization Address City/[facility]/ZIP Co de Phone Number [facility] [place] [address] * Heparin (unfractionated) Level (10/04/2022 6:40 PM EDT) UF Heparin <0.04 IU/mL [facility] Comment: Heparin (anti-Xa) levels should [...] MD HEMATOLOGY ORDERABLE S Performing Organization Address [facility] Co de Phone Number [facility] [place] [address] * Troponin (10/04/2022 6:40 PM EDT) Pathologist [facility] Troponin-T, High Sensitivity 17 <=22 ng/L [facility] Comment: This patient's troponin T [...] troponin value can be found in the [facility] Test Catalog Troponin - [facility] Test Catalog Reference: Fourth Holden Definition of Myocardial Infarction. Journal of the [place] [employer] 2018;72:8705-3417 Blood 10/04/2022 6:40 PM EDT 10/04/2022 6:52 PM EDT Narrative Resulting Agency Comment Spec In Lab Yosef Wilkes MD CHEMISTRY ORDERABLES Performing Organization Address City/State/[facility] Co de Phone Number [facility] [place] [address] documented in this encounter Visit Diagnoses Diagnosis [...] at 1999, Until Discontinued, Routine Given 10/05/2022 8:19 PM [...] on Mon10/05/22 at 0900, Until Discontinued, Routine 905 (Given - Provid er: Corinna Vallecillo RN)1618 ([facility] Hold - Provider: Admin Adt - Reason: Transfer to a Procedural area)175 ([facility] Unhold - Provider: Admin Adt) atorvastatin (Lipitor) tablet 80 mg 80 mg, Oral, EVERY EVENING, First dose on Mon10/04/22 at 2000, Until Discontinued, Routine 2147 (Given - Provider: Sil Lopez RN) 1618 ([facility] Hold - Provider: Admin Adt - Reason: Transfer to a Procedural area)1700 (Not Given - Provider: Corinna Vallecillo RN - Reason: Transfer to a Procedural area)175 ([facility] Unhold - Provider: Admin Adt)2017 (Given - Provider: Sil Lopez RN) budesonide-formoteroL (Symbicort) 160-4.5 mcg/actuation inhaler 2 Inhalation 2 .Inhalation , Inhalation, 2 TIMES DAILY (RESPIRATORY THERAPY), First dose on Mon10/04/22 at 2000, Until Discontinued, Routine 2149 (Given - Provider: Sil Lopez RN) 0507 (Given - Provider: Sil Lopez RN)161 ([facility] Hold - Provider: Admin Adt - Reason: Transfer to a Procedural area)175 ([facility] Unhold - Provider: Admin Adt)2019 (Given - Provider: Sil Lopez RN) clopidogreL (Plavix) tablet 75 mg 75 mg, Oral, DAILY, First dose on Mon10/05/22 at 0900, Until Discontinued, Routine 0905 (Given - Provid er: Corinna Vallecillo RN)1618 ([facility] Hold - Provider: Admin Adt - Reason: Transfer to a Procedural area)175 ([facility] Unhold - Provider: Admin Adt) folic acid (Vitamin B9) tablet 1 mg 1 mg, Oral, DAILY, First dose on Mon10/04/22 at 2000, Until Discontinued, Routine 2153 (Given - Provider: Sil Lopez RN) 0906 (Given - Provider: Corinna Vallecillo RN)1618 ([facility] Hold - Provider: Admin Adt - Reason: Transfer to a Procedural area)1758 ([facility] Unhold - Provider: Admin Adt) insulin glargine-ygfn (Semglee) (100 unit/mL) subcutaneous injection vial 40 Units (CANCELED) 40 Units, Subcutaneous, NIGHTLY, First dose (after last modification) on Mon10/04/22 at 2115, Until Discontinued, Routine 2254 (Given - Provider: Sil Lopez RN) 161 ([facility] - Provider: Araseli Adt - Reason: Transfer to a Procedural area)1721 ([facility] Unhold - Provider: ISABELLE Salazar) insulin glargine-ygfn [...] dose on Mon10/04/22 at 1999, Until Discontinued, DO NOT CRUSH OR OPEN, [...] 09 (Patch Removed - Provider: Corinna Vallecillo RN)0908 (Patch Applied - Provider: Corinna Vallecillo RN)161 ([facility] Hold [...] Discontinued, Verify nicotine 21 mg/24 hr patch 07 (Patch (dose an d location) verified - Provider: Sil Lopez RN)161 ([facility] Hold - Provider: Admin Adt - Reason: Transfer to a Procedural area)175 ([facility] Unhold - Provider: Admin Adt)2099 (Patch (dose and location) verified - Provider: Sil Lopez RN) pantoprazole EC (Protonix) tablet 40 mg 40 mg, Oral, 2 TIMES DAILY, First dose on Mon10/04/22 at 2100, Until Discontinued, DO NOT CRUSH OR OPEN, Routine 2146 (Given - Provider: Sil Lopez RN) 0905 (Given - Provider: Corinna Vallecillo RN)1617 ([facility] Hold - Provider: Admin Adt - Reason: Transfer to a Procedural area)1757 ([facility] Unhold - Provider: Admin Adt)2016 (Given - Provider: Sil Lopez RN) sodium chloride 0.9 % (flush) (BD PosiFlush Normal Saline 0.9) flush 5 mL 5 mL, Intravenous, 2 TIMES DAILY, First dose on Mon10/04/22 at 2100, Until Discontinued, Routine 2099 (Not Given - Provider: Sil Lopez RN - Reason: See comment - Comment: previously flushed) 0900 (Not Given - Provider: Corinna Vallecillo RN - Reason: Order parameters not met)1617 ([facility] Hold - Provider: Admin Adt - Reason: Transfer to a Procedural area)1757 ([facility] Unhold - Provider: Admin Adt)2018 (Given - Provider: iSl Lopez RN) sodium chloride 0.9 % (flush) (BD PosiFlush Normal Saline 0.9) flush 5 mL 5 mL, Intravenous, 2 TIMES DAILY, First dose on Mon10/04/22 at 2100, Until Discontinued, Routine 2099 (Not Given - Provider: Sil Lopez RN - Reason: See comment - Comment: previously flushed) 0907 (Given - Provider: Corinna Vallecillo RN)161 ([facility] Hold - Provider: Admin Adt - Reason: Transfer to a Procedural area)1757 ([facility] Unhold - Provider: Admin Adt)2017 (Given - Provider: Sil Lopez RN) thiamine (Vitamin B-1) tablet 100 mg 100 mg, Oral, DAILY, First dose on Mon10/04/22 at 1999, Until Discontinued, Routine 2146 (Given - Provider: Sil Lopez RN) 0906 (Given - Provider: Corinna Vallecillo, GUILLAUME)161 ([facility] - Provider: Admin Adt - Reason: Transfer to a Procedural area)175 ([facility] Un[facility] - Provider: Admin Adt) tiotropium bromide (Spiriva Respimat) 2.5 mcg/actuation inhaler 2 puff 2 puff, Inhalation, DAILY, First dose on Mon10/04/22 at 1999, Until Discontinued, Must be primed prior to first administration, Routine 2148 (Given - Provider: Sil Lopez RN) 09 (Given - Provider: Corinna Vallecillo, GUILLAUME)161 ([facility] - Provider: Admin Adt - Reason: Transfer to a Procedural area)175 ([facility] - Provider: Admin Adt) Continuous [...] RN)1127 (Rate/Dose Change - Provider: Corinna Vallecillo RN)161 ([facility] Hold - Provider: Admin Adt - Reason: Transfer to a Procedural area)175 ([facility] Unhold - Provider: Admin Adt) sodium [...] - Reason: Transfer to a Procedural area)175 ([facility] Unhold - Provider: Admin Adt) dextrose [...] - Reason: Transfer to a Procedural area)1757 ([facility] Unhold - Provider: Admin Adt) glucose (Glutose) [...] weight of tube = 37.5 grams.), Routine 161 ([facility] - Pro vider: Admin Adt - Reason: Transfer to a Procedural area)1757 ([facility] Unhold - Provider: Admin Adt) heparin (porcine) [...] Lopez RN)1129 (Given - Provider: Corinna Vallecillo RN)161 ([facility] [...] not swallow. Maximum of 48 mg/day., Routine 1618 ([facility] - Pro vider: Admin Adt - Reason: Transfer to a Procedural area)1758 ([facility] Unhold - Provider: Admin Adt) nitroGLYcerin [...] the last 24 to 72 hours., Routine 161 ([facility] Hold - Pro vider: Admin Adt - Reason: Transfer to a Procedural area)1758 ([facility] Unhold - Provider: Admin Adt) nitroGLYcerin 100 mcg/mL intracoronary dilution (CANCELED) PRN, Starting on Mon10/05/22 at 1647, Until Mon10/05/22 at 1711, Intra-Operative (Intra-Procedure), Routine 1647 (Given - Provid er: Yves Fernandez [...] link provided on this medication record., Routine 161 ([facility] - Pro vider: Admin Adt - Reason: Transfer to a Procedural area)175 ([facility] Unhold - Provider: Admin Adt) sodium chloride 0.9 % (flush) (BD PosiFlush Normal Saline 0.9) flush 5-20 mL 5-20 mL, Intravenous, EVERY 1 MIN PRN, Starting on Mon10/04/22 at 1907, Until Mon10/06/22 at 0054, flush, Flush pertains to all indwelling lines. Flush per protocol found in the job aid using the link provided on this medication record., Routine 161 ([facility] - Pro vider: Admin Adt - Reason: Transfer to a Procedural area)1757 ([facility] Unhold - Provider: Admin Adt) verapamiL (Isoptin) (2.5 mg/mL) injection (CANCELED) PRN, Starting on Mon10/05/22 at 1647, Until Mon10/05/22 at 1711, Administer over 2 Minutes, Intra-Operative (Intra-Procedure) 1647 (Given - Provid er: Yves Fernandez MD) Linked Groups Order Group 1: POCT Fingerstick Glucose (CANCELED) Routine, EVERY 4 HOURS, First occurrence on Mon10/04/22 at 2024, Until Specified, Consider choosing EVERY 4 HOURS [...] Routine documented in this encounter Care Teams Paper Reclaiming Machine Operator Relationship Specialty Start Date End Date Karen Barbosa MD [address] [place] [address] PCP - General Family Medicine 10/04/22 documented as of this encounter
--- OUTSIDE RECORDS SUMMARY | 2023-12-10 00:43 | XMS_ITS | Encounter Summary ---
[place] [address] Care Team Providers Care Statistical Engineer Name Role Phone Robinson Vazquez APRN Primary Care Provider [phone] Reason for Visit * Reason Comments Follow-up Encounter Details Date Type Department Care Team (Late st Contact Info) Description 09/05/2022 9:30 AM EDT Office [place] [address] José Miguel Anderson MD [facility] [place] [address] History of YAG laser capsulotomy of lens, [...] 9:45 AM EDT Office Visit Neurosurgery at [facility] [address] [place] [address] Rosanna Clement MD 10 [facility] [place] [address] Chau Blackburn PA [address] [facility] [place] [address] 03/20/2024 10:00 AM EST Office [place] [address] Tania [place], OD [facility] [place] [address] 12/23/2024 8:00 AM EDT Office [place] [address] Tania Gates, OD [facility] [place] [address] documented as of this encounter Visit Diagnoses Diagnosis History of YAG laser capsulotomy of lens, right Pseudophakia of right eye Lens replaced by other means documented in this encounter Care Teams Statistical Engineer Relationship Specialty Start Date End Date Robinson Vazquez APRN [address] [place] [address] PCP - General Family Medicine 12/11/20 10/03/22 documented as of this encounter
--- OUTSIDE RECORDS SUMMARY | 2023-12-10 00:43 | XMS_ITS | Encounter Summary ---
[place] [address] Care Team Providers Care Circulation Analyst Name Role Phone Robinson Vazquez APRN Primary Care Provider [phone] Encounter Details Date Type Department Care Team [...] 9:45 AM EDT Office Visit Neurosurgery at [facility] [address] [place] [address] Rosanna Clement MD [address] [place] [address] [address] [place] [address] 03/20/2024 10:00 AM EST Office [place] [address] Tania Gates, [facility] [place] [address] 12/23/2024 8:00 AM EDT Office [place] [address] Tania Gates, [facility] [place] [address] documented as of this encounter Visit Diagnoses Not on filedocumented in this encounter Care Teams Circulation Analyst Relationship Specialty Start Date End Date Robinson Vazquez APRN [address] [place] [address] PCP - General Family Medicine 12/11/20 10/03/22 documented as of this encounter
--- OUTSIDE RECORDS SUMMARY | 2023-12-10 00:43 | XMS_ITS | Encounter Summary ---
[place] [address] Care Team Providers Care Supervisory Historian Name Role Phone Karen Barbosa MD Primary Care Provider Reason for Referral * Diagnostic Test (Routine) - Closed Specialty Diagnoses / Procedures Referred By Contac t Referred To Contact Diagnoses Atherosclerosis of te-mo[place] artery of lower extremity, unspecified laterality, with unspecified presence of clinical manifestation Procedures DEONTE, legs, multiple levels Anamaria Isaacs APRN [facility] [address] [facility] [address] [place] [address] Referral ID Status Reason Start Date Expiration Date V isits Requested Visits Authorized [id number] Closed Specialty Service Requested 03/22/2023 03/21/2024 1 1 Encounter Details Date Type Department Care Team (Late st Contact Info) Description 03/22/2023 Orders [place] [address] Anamaria Isaacs APRN [facility] [place] [address] Atherosclerosis of te-moak artery of lower extremity, unspecified laterality, with [...] 9:45 AM EDT Office Visit Neurosurgery at [facility] [address] [place] [address] Rosanna Clement MD 10 [facility] [address] Chau Blackburn PA 10 [facility] [address] 03/20/2024 10:00 AM EST Office [place] [address] Tania Gates [facility] [place] [address] 12/23/2024 8:00 AM EDT Office [place] [address] Tania Gates, [facility] [place] [address] documented as of this encounter Results * DEONTE, legs, multiple levels (05/17/2023 7:48 AM EST) VB Text Report Department: Vascular Surgery Lab Patient: [id number] (BEL PATRICIO) CPT: 12813 Referring Physician: ANAMARIA ISAACS ?? Phone: Indications: [...] this encounter Visit Diagnoses Diagnosis Atherosclerosis of te-moak artery of lower extremity, unspecified laterality, with unspecified presence of clinical manifestation documented in this encounter Care Teams Supervisory Historian Relationship Specialty Start Date End Date Karen Barbosa MD [address] [place] [address] PCP - General Family Medicine 10/04/22 documented as of this encounter
--- OUTSIDE RECORDS SUMMARY | 2023-12-10 00:43 | XMS_ITS | Encounter Summary ---
[place] [address] Care Team Providers Care Housekeeping Room Inspector Name Role Phone Karen Barbosa MD Primary Care Provider [phone] Encounter Details Date Type Department Care Team [...] AM EDT Office Visit Neurosurgery at [address] [place] [phone] Rosanna Clement MD [address] [place] [address] [place] [address] 03/20/2024 10:00 AM EST Office [place] [address] Tania Gates, [facility] [place] [address] 12/23/2024 8:00 AM EDT Office [place] [address] Taina Gates, [facility] [place] [address] documented as of this encounter Visit Diagnoses Not on filedocumented in this encounter Care Teams Housekeeping Room Inspector Relationship Specialty Start Date End Date Karen Barbosa MD [address] [place] [address] PCP - General Family Medicine 10/04/22 documented as of this encounter
--- OUTSIDE RECORDS SUMMARY | 2023-12-10 00:43 | XMS_ITS | Encounter Summary ---
[place] [address] Care Team Providers Care Search Engine Marketing Strategist Name Role Phone Karen Barbosa MD Primary Care Provider Reason for Visit * Reason Comments Pseudophakia Encounter Details Date Type Department Care Team (Late st Contact Info) Description 03/09/2023 10:40 AM EST Office [place] [address] Tania Gates, [facility] [place] [address] Diabetic eye exam; Pseudophakia of right eye; [...] presbyopia Samy Denilson Patricio Jr. is a 57 y.o. with [...] Rx given today in polycarbonate and advised washing machine operator wear for eye protection! - Findings and concerns discussed with Samy and he expressed understanding. CEE 9-12 mos Eyeglass Final Rx Eyeglass Final Rx Sphere Cylinder Dist VA Add Near VA Right [place] Sphere 20/15-1 +2.50 20/20 Left Balance Sphere 20/400 +2.50 unable Expiration Date: 03/09/2025 Polycarbonate. documented in this encounter Plan of Treatment Upcoming Encounters Date Type Department Care Team (Late st Contact Info) Description 01/10/2024 9:45 AM EDT Office Visit Neurosurgery at [address] [place] [phone] Rosanna Clement MD [address] [place] [address] Chau Blackburn PA [address] [place] [address] 03/20/2024 10:00 AM EST Office [place] [address] Tania Gates, OD [facility] [place] [address] 12/23/2024 8:00 AM EDT Office [place] [address] Tania Gates, OD [facility] [place] [address] documented as of this encounter Visit Diagnoses Diagnosis Diabetic eye exam Examination of eyes and vision Pseudophakia of right eye Lens replaced by other means History of YAG laser capsulotomy of lens, right Age-related nuclear cataract of left eye Senile nuclear sclerosis History of eye injury Personal history of other injury Astigmatism of both eyes with presbyopia documented in this encounter Care Teams Search Engine Marketing Strategist Relationship Specialty Start Date End Date Karen Barbosa MD [address] [place] [address] PCP - General Family Medicine 10/04/22 documented as of this encounter
--- OUTSIDE RECORDS SUMMARY | 2023-12-10 00:43 | XMS_ITS | Encounter Summary ---
[place] [address] Care Team Providers Care Crystal Grower Name Role Phone Karen Barbosa MD Primary Care Provider [phone] Reason for Referral * Consultation (Routine) - Closed Specialty Diagnoses / Procedures Referred By Contac t Referred To Contact Diagnoses Type 2 diabetes mellitus with ESRD (end-stage renal disease) Jeovanny Lancaster MD [facility] [place] [address] Antonina Gutierrez, seaman officer ID Status Reason Start Date Expiration Date V isits Requested Visits Authorized [id number] Closed Consult, Test & Treat 04/25/2023 04/24/2024 1 1 Reason for Visit * Consultation (Routine) - Authorized Specialty Diagnoses / Procedures Referred By Contac t Referred To Contact Endocrinology Diagnoses Type 2 diabetes mellitus without complications Type 2 diabetes mellitus with diabetic chronic kidney disease Chronic kidney disease, stage 3a joint terminal attack controller (current) use of insulin Karen Barbosa MD [address] [place] [address] [facility] [address] [place] [phone] Referral ID Status Reason Start Date Expiration Date Visits Requested Visits Authorized [id number] Authorized Consult, Test & Treat PCP Updated and/or Approved 3 03/01/2024 6 6 Encounter Details Date Type Department Care Team (Latest Contact Info) Description 04/25/2023 9:00 AM EST Office [place] [address] Jeovanny Lancaster MD Type 2 diabetes mellitus with ESRD (end-stage renal disease); Cigar smoker; Mixed hyperlipidemia Social History Tobacco Use Types Packs/Day Years Used Date Smoking Tobacco: Every Day Cigarettes 1 40 Smokeless Tobacco: Never Alcohol Use Standard Drinks/Week Comments Not Currently 7 (1 standard drink = 0.6 oz pur e alcohol) [facility] Inpatient Questions Answer Date Recorded Does [...] CONSULT Referred by Dr. Karen Barbosa MD [address] [place] [id number] Chief Complaint: Type 2 Diabetes- Insulin requiring [...] an outside A1c 2 days ago at [facility] of 7.4%. However I am afraid he [...] Misc TEST BLOOD GLUCOSE TWICE A DAY tjarhfrvisj-ynwjevmcz-bnumeyhn 100-62.5-25 mcg Disk with Device 1 puff [...] the name Glu Monitoring: CGM: Utilizes a wali G7. Unfortunately he is not yet registered [...] Last A1c = 7.4% 04/23/23 outside at [facility] Recent Labs 10/05/22 0104 HA1C [...] undocumented hypoglycemia. His Dexcom CGM will not superintendent maintenance airports hypoglycemia if it is instantly treated as [...] me. Sincerely, Jeovanny Lancaster MD Endocrinology Section [facility] Total time spent in comprehensive review of his medical records and and examining, counseling and reviewing treatment plans & Coordination of care with the patient + minutes documented in this encounter Plan of Treatment Upcoming Encounters Date Type Department Care Team (Late st Contact Info) Description 01/10/2024 9:45 AM EDT Office Visit Neurosurgery at [facility] [address] [place] [address] Rosanna Clement MD [address] [facility] [place] [address] Chau Blackburn PA [address] [facility] [place] [address] 03/20/2024 10:00 AM EST Office [place] [address] Tania Gates, [facility] [place] [address] 12/23/2024 8:00 AM EDT Office [place] [address] Tania Gates, [facility] [place] [address] Scheduled Referrals Name Type Priority Associated Diagnoses [...] hyperlipidemia documented in this encounter Care Teams Crystal Grower Relationship Specialty Start Date End Date Karen Barbosa MD [address] [facility] [place] [address] PCP - General Family Medicine 10/04/22 documented as of this encounter
--- OUTSIDE RECORDS SUMMARY | 2023-12-10 00:43 | XMS_ITS | Encounter Summary ---
[place] [address] Care Team Providers Care Pediatric Speech Language Pathologist Name Role Phone Robinson Vazquez APRN Primary Care Provider [phone] Encounter Details Date Type Department Care Team (Late st Contact Info) Description 04/21/2022 Ancillary Procedure Radiology at [facility] [address] [place] [address] Rosanna Clement MD [address] [facility] [place] [address] Social History Tobacco Use Types Packs/Day Years [...] Visit Neurosurgery at [facility] [address] [place] [phone] Rosanna Clement MD [address] [facility] [address] [place], [place] [phone] Chau Blackburn PA [address] [place] [address] 03/20/2024 10:00 AM EST Office [place] [address] Tania Gates, [facility] [place] [address] 12/23/2024 8:00 AM EDT Office [place] [phone] Tania Gates, [facility] [address] documented as of this encounter Procedures Procedure Name Priority Date/Time Associated Diagnosis Comments FILM LIBRARY STORAGE ONLY MR SPINE Routine 04/21/2022 12:00 AM EST documented in this encounter Results * Film Library- Storage Only MR Spine (04/21/2022 12:00 AM EST) Narrative [facility] - 10/17/2023 3:38 PM EDT This exam is auto-finalizing. It's purpose is for storage only. Rosanna Clement MD [employer] FILM LIBRARY ORDERABLES [place], [place] documented in this encounter Visit Diagnoses Not on filedocumented in this encounter Care Teams Pediatric Speech Language Pathologist Relationship Specialty Start Date End Date Robinson Vazquez APRN [address] [place] [address] [place] [address] PCP - General Family Medicine 12/11/20 10/03/22 documented as of this encounter
--- OUTSIDE RECORDS SUMMARY | 2023-12-10 00:43 | XMS_ITS | Encounter Summary ---
[place] [address] Care Team Providers Care Bakery Pastry Internship Name Role Phone Karen Barbosa MD Primary Care Provider Encounter Details Date Type Department Care Team (Late st Contact Info) Description 10/04/2022 [place] [address] Unknown None Social History Tobacco [...] 9:45 AM EDT Office Visit Neurosurgery at [facility] [place] [phone] Rosanna Clement MD [address] [place] [address] Chau Blackburn PA [address] [place] [address] 03/20/2024 10:00 AM EST Office Visit Ophthalmology at [place] [phone] Tania Gates, [facility] [place] [address] 12/23/2024 8:00 AM EDT Office [place] [phone] Tania Gates, [facility] [place] [address] documented as of this encounter Procedures Procedure Name Priority Date/Time Associated Diagnosis Comments ECHOCARDIOGRAM TRANSTHORACIC Routine 10/04/2022 7:30 PM EDT documented in this encounter Results * Echocardiogram Transthoracic (10/04/2022 7:30 PM EDT) Anatomical Region Laterality Modality Cardiac Other 10/04/2022 7:30 PM EDT Narrative 10/06/2022 9:10 AM EDT ? Echocardiogram Report Name: SAMY PATRICIO JR ? Study Date: 10/04/2022 07:30 PMBP: 140/90 mmHg ? Patient Location: [facility] ? HR: 66 : 1965 ? Height: 183 cm Age: 56 yrs ? Weight: 134 kg Gender: Male ?BSA: 2.5 m2 Ordering Physician: Rafy Wilkes MD Referring Physician: Rafy Wilkes MD Performed By: Vivek Lee Reason For Study: Unstable Angina History: Chest pain Interpreting Fellow: Vivek Lee. Exam Location: [facility]. Interpretation Summary -Limited echocardiogram performed by [...] accurate wall motion assessment. Procedure Limited - 09275. Satisfactory quality. There is normal sinus rhythm. [...] Hansen MD - 10/06/2022 Echocardiogram Report Name: SAMY PATRICIO JR Study Date: 307:30 PMBP: 140/90 mmHg Patient Location: [facility] HR: 66 : 1965 Height: 183 cm Age: 56 yrs Weight: 134 kg Gender: Male BSA: 2.5 m2 Ordering Physician: Rafy Wilkes MD Referring Physician: Rafy Wilkes MD Performed By: Vivek Lee Reason For Study: Unstable Angina History: Chest pain Interpreting Fellow: Vivek Lee. Exam Location: [facility]. Interpretation Summary -Limited echocardiogram performed by [...] accurate wall motion assessment. Procedure Limited - [id number]. Satisfactory quality. There is normal sinus rhythm. [...] on filedocumented in this encounter Care Teams Bakery Pastry Internship Relationship Specialty Start Date End Date Karne Barbosa MD [address] [place] [address] PCP - General Family Medicine 10/04/22 documented as of this encounter
--- OUTSIDE RECORDS SUMMARY | 2023-12-10 00:43 | XMS_ITS | Encounter Summary ---
Author Organization [facility] [place] [address] Care Team Providers Care Local Operator Name Role Phone Robinson Vazquez APRN Primary Care Provider [phone] Reason for Visit * Consultation (Urgent) - Closed Specialty Diagnoses / Procedures Referred By Keith sanchez Referred To Contact Vascular Surgery Diagnoses Peripheral vascular disease, unspecified Karen Barbosa MD [address] [place] [address] [facility] Vascular Surg [address] [place] [address] Referral ID Status Reason Start Date Expiration Date V isits Requested Visits Authorized [id number] Closed Consult, Test & Treat 02/07/2022 02/07/2023 1 1 Encounter Details Date Type Department Care Team (Late st Contact Info) Description 02/24/2022 9:30 AM EST Office [place] [address] Orin Tsai MD [facility] [place] [address] Leriche syndrome Social History Tobacco [...] TWICE A DAY, Disp: , Rfl: ??? ayrgdeosvvq-sffhgcryb-xagqdcgm 100-62.5-25 mcg Disk with Device, 1 puff [...] Text Report Department: Vascular Surgery Lab Patient: [id number] (SAMY PATRICIO) CPT: 62409 Referring Physician: VINICIUS ESTRADA, JOVANI Indications: PAD [...] 9:45 AM EDT Office Visit Neurosurgery at [facility] [address] [place] [address] Rosanna Clement MD [address] [facility] [facility] [place] [address] Chau Blackburn PA [address] [facility] [place] [address] 03/20/2024 10:00 AM EST Office [place] [address] Tania Gates, [facility] [place] [address] 12/23/2024 8:00 AM EDT Office [place] [phone] Tania Gates, [facility] [place] [address] documented as of this encounter Visit Diagnoses 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
--- OUTSIDE RECORDS SUMMARY | 2023-12-10 00:43 | XMS_ITS | Encounter Summary ---
Author Organization [facility] [place] [address] Care Team Providers Care Dural Mechanic Name Role Phone Karen Barbosa MD Primary Care Provider Reason for Visit * Auth/Cert (Routine) Specialty Diagnoses / Procedures Referred By Keith t Referred To Contact Diagnoses Unstable angina Chest Pain Yosef Wilkes MD [facility] [place] [address] [facility] Referral ID Status Reason Start Date Expiration Date Visits Re quested Visits Authorized [id number] 1 1 Encounter Details Date Type Department Care Team (Late st Contact Info) Description 10/05/2022 12:30 PM EDT - 10/05/2022 1:30 PM EDT Surgery [place] [address] Amanda Aleman MD [facility] [place] [address] CARDIAC CATHETERIZATION Social History Tobacco Use Types Packs/Day Years Used Date Smoking Tobacco: Every Day Cigarettes 1 40 Smokeless Tobacco: Never Alcohol Use Standard Drinks/Week Comments Yes 7 (1 standard drink = 0.6 oz pur e alcohol) [facility] Inpatient Questions Answer Date Recorded [...] Patricio Jr. Patient Age: 56 y.o. Language: Belarusian Admit date: 10/04/2022 Discharge date and time: [...] Information: MD Anny Oh PA-C Cardiovascular Medicine [phone] Discharge Diagnoses (Hospital Problems) and Secondary Diagnoses [...] without sciatica Operations/Major Procedures and CV studies: [facility] 10/05/22: Hemodynamics: Left Heart Pressures [...] hypertension, hyperlipidemia comes into the ED at [facility] for chest pain. Patient reports [...] and plavix and patient was transferred to [facility] for unstable angina. Patient still reports having [...] Sheng Acosta. presented as hospital transfer from [facility] for chest pain concerning for unstable angina. At [facility], Troponin negative and EKG without ischemic changes though chest pain at rest without relief of nitro x 3 on 10/04/22. He was loaded with ASA 325mg x1 and clopidogrel (10/04/22), and IV heparin with resolution of chest pain. Home metoprolol and high intensity atorvastatin continued. Transferred to [facility] for further workup which included TTE 10/05/2022 showing preserved LVEF without regional WMAs. LHC 10/05/2022 showing no new obstructive disease and patent prior stents. Cath access site remained stable following procedure. Ambulated post cath without angina. Patient and preferred to be discharged night of [facility]. Follow up with Dr. Kingston [...] by mouth daily. 25 mg Refills: 0 tsopxnqjmsp-uwrtzedxrtza-clgvdpvzxk 100-62.5-25 mcg Commonly known as: Trelegy Ellipta [...] of 8A-5PM please call the Cardiology Clinic [phone] to speak with a nurse. All other hours please call the Hospital Slicer Machine Operator [phone] and ask to speak to the host/hostess head on-call. Return to work: One week Driving: No driving for 48 hours after cath Follow up Appointments: Doctor Where Phone # Date Time PCP Karen Barbosa MD [address] [place] [phone] 10/12/2022 11 AM Cardiology Padmini Kingston MD [facility] Cardiology [phone] 10/18/2022 11 AM Home oxygen therapy: N/A Arrangements for VNA/home care: N/A General Instructions None Future Appointments and Orders Future Appointments and Orders Future Appointments Provider Department Dept Phone 03/09/2023 10:40 AM Ramiro, Tania, OD; DILATION AND TEST, RAMIRO; TECH, RAMIRO Ophthalmologyat [facility] Arrive at: [facility] Area [phone] Discharge References/Attachments None Anny Ely PA-C 10/05/2022 [...] of 8A-5PM please call the Cardiology Clinic [phone] to speak with a nurse. All other hours please call the Hospital S[facility]er Machine Operator [phone] and ask to speak to the host/hostess head on-call. Return to work: One week Driving: No driving for 48 hours after cath Follow up Appointments: Doctor Where Phone # Date Time PCP Karen Barbosa MD [address] [place] [phone] 10/12/2022 11 AM Cardiology Padmini Kingston MD [facility] Cardiology [phone] 10/18/2022 11 AM Home oxygen therapy: N/A [...] TEST BLOOD GLUCOSE TWICE A DAY 06/23/2020 etvnekwtzkb-hppwsgcga-gw lanter 100-62.5-25 mcg Disk with Device Inhale [...] note were not included. CARDIOLOGY APP2 - [facility] DAILY PROGRESS NOTE Page [phone] to reach a provider 03/10 Admit Date: [...] CPAP) who presents as hospital transfer from [facility] for unstable angina. Troponin negative and [...] Discharge Location: PT: OT: PCP Robinson Vazquez, WARE DRESSER [phone] Anny Ely PA-C 10/05/2022 Cardiology Staff I [...] hypertension, hyperlipidemia comes into the ED at [facility] for chest pain. Patient reports [...] and plavix and patient was transferred to [facility] for unstable angina. Patient still reports having [...] Post-operative nausea and vomiting Had scope at [facility] and had vomiting after Surgical History/Problems: Past Surgical History: Procedure Laterality Date CATARACT REMOVAL Right 2017 CORONARY ANGIOPLASTY WITH STENT PLACEMENT 08/2017 PRO UPPER GI ENDOSCOPY, BIOPSY 04/26/2011 EGD WITH BIOPSY performed by KIRSTEN DAMON at [facility] ENDOSCOPY PRO UPPER GI ENDOSCOPY, BIOPSY N/A 09/27/2018 UPPER GASTROINTESTINAL ENDOSCOPY,WITH BIOPSY SINGLE OR MULTIPLE (WRVU 2.49) performed by Luc Hdz MD at [facility] ENDOSCOPY PRO UPPER GI ENDOSCOPY, BIOPSY N/A 01/26/2021 EGD WITH BIOPSY (WRVU 2.49) performed by Nathaniel Azevedo MD at [facility] ENDOSCOPY ROTATOR CUFF REPAIR Left Significant [...] Misc TEST BLOOD GLUCOSE TWICE A DAY cxboxaicapo-kyzdlvopf-vhheqyes 100-62.5-25 mcg Disk with Device 1 puff [...] and plavix load and was transferred to [facility] for unstable angina TREATMENT PLAN: Unstable angina [...] Admitted From: Transfer from another hospital Location: [facility] Reason for Hospitalization: chest pain Covid [...] Post-operative nausea and vomiting Had scope at [facility] and had vomiting after Hospitalizations Within the Past 30 Days: no previous admission in last 30 days Current Decision-Making Capacity: Self If AD's have not been completed the following surrogate would be surrogate decision maker per [place] surrogate decision making law. (Only good for 180 days) Any patient receiving care in [place] must abide by [place] law. The hierarchy for surrogate decision making [...] (i) The agent with financial power of managing attorney or a conservator appointed in accordance [...] Current DME: none Home Address confirmed as: [address] [address] Social & Family Supports: All names listed below confirmed with patient as current and correct Extended Emergency Contact Information Primary Emergency Contact: Danica Patricio Address: [address] [address] [facility] [employer] [facility] Mobile Relation: Spouse Secondary Emergency [place] [address] [facility] Relation: Child Current Care Provided by: self [...] Product type* / Secondary Insurance: [employer] [place] ONLY if patient has Medicare A&B - Does this patient have secondary insurance?: Yes ; Prescription Coverage: Yes Preferred Pharmacy: [facility] [address] [address] Status: Patient is a : No Primary Care Provider confirmed: Karen Barbosa MD [phone] Patient/Caregiver Goals of Treatment: return home Potential [...] for further details. ISABELLE Morataya 10/05/2022 Pager [phone] documented in this encounter Plan of Treatment Upcoming Encounters Date Type Department Care Team (Late st Contact Info) Description 01/10/2024 9:45 AM EDT Office Visit Neurosurgery at [facility] [address] [place] [address] Rosanna Clement MD [facility] [place] [address] Chau Blackburn PA [address] [facility] [place] [address] 03/20/2024 10:00 AM EST Office [place] [address] Tania Gates, [facility] [place] [address] 12/23/2024 8:00 AM EDT Office [place] [address] Tania Gates, OD [facility] [place] [address] documented as of this encounter Procedures Procedure [...] - 199 mg/dL [facility] Comment: Supplemental ranges: <140 mg/dL before meals <180 mg/dL all other times of the day Blood 10/05/2022 7:49 PM EDT 10/05/2022 7:49 PM EDT Yosef Wilkes MD POINT OF CARE TEST O RDERABLES [facility] [address] * POCT Glucose (10/05/2022 5:24 PM EDT) Glucose, POC 112 65 - 199 mg/dL [facility] Comment: Supplemental ranges: <140 mg/dL before meals <180 mg/dL all other times of the day Blood 10/05/2022 5:24 PM EDT 10/05/2022 5:24 PM EDT Yosef Wilkes MD POINT OF CARE TEST O RDERABLES [facility] [place] [address] * CARDIAC CATHETERIZATION (10/05/2022 5:15 PM EDT) Anatomical Region Laterality Modality Other Narrative 10/05/2022 5:57 PM EDT ?[facility] ? Cardiac Catheterization/Intervention Report ? Patient Name: Samy Patricio Jr.. ? Procedure Date: 10/05/2022 ? A #: [id number] ? Primary Physician: Amanda Aleman I ? Case #: [id number] ? File Name: [id number] ? Catheterization Order Number: [id number] ? [facility] ? Final Report [place], [place] ? Patient Name: ? Samy Acosta. S. Sheng ?ID#: ?[id number] ? : ?1965 ? Procedure Date: ? October 05, 2022 ?Case #: ? [id number] ? Room: ? 1 ? Case Physician: [...] procedure was Urgent. The indication for ?the high density press laborer visit is ACS greater than 24 hrs. [...] angiography and left ?heart catheterization. ? Amanda Carmona Chaudry, M.D. ? Electronically Signed by: Amanda Carmona Love, M.D. ? Report Finalized: 10/05/2022 ??17:51 ? Amanda Love Carmona MD CARDIAC CATH ORDERA BLES * ECHO COMPLETE W CONTRAST (10/05/2022 12:20 PM EDT) EF 65 HEARTLAB SYSTEM Anatomical Region Laterality Modality Cardiac Other 10/05/2022 11:0 8 AM EDT Narrative 10/05/2022 1:18 PM EDT ? Echocardiogram Report Name: SAMY PATRICIO, ? Study Date: 10/05/2022 11:08 AMBP: 110/78 mmHg ? Patient Location: [id number] A : 1965 ? Height: 183 cm ? Account: [id number] Age: 56 yrs ? Weight: 135 kg Gender: Male ?BSA: 2.5 m2 Ordering Physician: YOSEF WILKES Referring Physician: OSCAR ACOSTA Performed By: MOUNA Rollins Reason For Study: Unstable angina Exam Location: [facility]. Interpretation Summary Optison was used for [...] right atrium now measured mildly dilated. Procedure Complete-[id number]. Image enhancement Optison was used for left [...] Date: 1:08 AMBP: 110/78 mmHg Patient Location: [id number] A : 1965 Height: 183 cm Account: [id number] Age: 56 yrs Weight: 135 kg Gender: Male BSA: 2.5 m2 Ordering Physician: YOSEF WILKES Referring Physician: OSCAR ACOSTA Performed By: MOUNA Rollins Reason For Study: Unstable angina Exam Location: [facility]. Interpretation Summary Optison was used for [...] night, rightatrium now measured mildly dilated. Procedure Complete-84060. Image enhancement Optison was used for left [...] - 199 mg/dL [facility] Comment: Supplemental ranges: <140 mg/dL before meals <180 mg/dL all other times of the day Blood 10/05/2022 11:4 5 AM EDT 10/05/2022 11:45 AM EDT Yosef Wilkes MD POINT OF CARE TEST O RDERABLES [facility] [address] * Basic Metabolic Panel (non-fasting) (10/05/2022 8:43 AM EDT) Glucose 160 65 - 199 mg/dL [facility] Comment:Diabetes: >=200 mg/d L plus symptoms Blood Urea Nitrogen 18 10 - 20 mg/dL [facility] Creatinine 1.35 0.80 - 1.50 mg/dL [facility] Sodium 137 135 - 145 mmol/L [facility] Potassium 4.2 3.5 - 5.0 mmol/L [facility] Comment: Please note: ??Patients with WBC >100,000 may have falsely elevated Potassium levels. ??For accurate Potassium quantification in these patients send serum separator tube (gold top) for subsequent determinations. ??Contact the Clinical Chemistry Laboratory if there are any questions. Chloride 98 98 - 107 mmol/L [facility] Carbon Dioxide 31 22 - 31 mmol/L [facility] Anion Gap 8 5 - 15 mmol/L [facility] Calcium 9.4 8.5 - 10.5 mg/dL [facility] Est Glomerular Filtration Rate 62 >=60 mL/min/1. 73 m?? [facility] Comment: This patient's estimated GFR was [...] Wilkes MD CHEMISTRY ORDERABLES Performing Organization Address City/[facility]/ZIP Co de Phone Number [facility] [address] * Heparin (unfractionated) Level (10/05/2022 8:43 AM EDT) UF Heparin 0.11 IU/mL [facility] Comment: Heparin (anti-Xa) [...] MD HEMATOLOGY ORDERABLE S Performing Organization Address City/[facility]/ZIP Co de Phone Number [facility] [address] * POCT Glucose (10/05/2022 7:32 AM EDT) Glucose, POC 151 65 - 199 mg/dL [facility] Comment: Supplemental ranges: <140 mg/dL before meals <180 mg/dL all other times of the day Blood 10/05/2022 7:32 AM EDT 10/05/2022 7:32 AM EDT Yosef Wilkes MD POINT OF CARE TEST O RDERABLES Performing Organization Address City/[facility] Co de Phone Number [facility] [address] * POCT Glucose (10/05/2022 4:08 AM EDT) Glucose, POC 179 65 - 199 mg/dL [facility] Comment: Supplemental ranges: <140 mg/dL before meals <180 mg/dL all other times of the day Blood 10/05/2022 4:08 AM EDT 10/05/2022 4:08 AM EDT Yosef Wilkes MD POINT OF CARE TEST O RDERABLES Performing Organization Address [facility] Co de Phone Number [facility] [address] * POCT Glucose (10/05/2022 1:41 AM EDT) Glucose, POC 196 65 - 199 mg/dL [facility] Comment: Supplemental ranges: <140 mg/dL before meals <180 mg/dL all other times of the day Blood 10/05/2022 1:41 AM EDT 10/05/2022 1:41 AM EDT Yosef Wilkes MD POINT OF CARE TEST O RDERABLES Performing Organization Address City/[facility] Co de Phone Number [facility] [address] * Differential, Automated (10/05/2022 1:04 AM EDT) Neutrophil % 65.7 % [facility] Neutrophil Absolute 5.59 1.70 - 6.10 x10(3)/mcL [facility] Lymph % 21.5 % [facility] Lymphocytes Abs 1.8 0.9 - 3.2 x10(3)/[facility] Monocyte % 8.5 % [facility] Monocyte Abs 0.7 0.3 - 0.9 x10(3)/[facility] Eos % 3.1 % [facility] Eosinophils Abs 0.3 0.0 - 0.4 x10(3)/[facility] Basophil % 0.8 % [facility] Baso Absolute 0.1 0.0 - 0.1 x10(3)/[facility] Immature Gran % 0.40 % [facility] Comment: Immature granulocytes(IG's)percentage and absolute count will include metamyelocytes, myelocytes, and promyelocytes. Blood smears from CBCs yielding IG's will be scanned manually for concordance. If this scan disagrees with the automated IG or if promyelocytes are noted, a manual differential will be performed. Immature Gran Absolute 0.03 0.00 - 0.04 x10(3)/[facility] Blood 10/05/2022 1:04 AM EDT 10/05/2022 1:14 AM EDT Narrative Resulting Agency Comment Spec In Lab Teddy Willett MD HEMATOLOGY ORDERABLE S [facility] [address] * (ABNORMAL) Hemogram (10/05/2022 1:04 AM EDT) White Blood Cell 8.5 4.0 - 9.5 x10(3)/mc L [facility] Red Blood Cell 5.63(H) 4.58 - 5.54 x10(6)/mc L [facility] Hemoglobin 16.6(H) 13.7 - 16.5 g/dL [facility] Hematocrit 51.0(H) 40.5 - 48.5 % [facility] Mean Cell Volume 90.6 82.9 - 93.1 fL [facility] Mean Cell Hemoglobin 29.5 27.5 - 32.1 pg [facility] Mean Cell Hemoglobin Concentration 32.5 32.0 - 35.7 g/dL [facility] Platelet 203 145 - 357 x10(3)/mc L [facility] RDW Standard Deviation 47.6(H) 36.0 - 45.0 fL [facility] RDW coefficient of variation 14.3(H) 11.4 - 13.8 % [facility] Mean Platelet Volume 9.7 7.6 - 12.9 fL [facility] NRBC% auto 0.0 % [facility] NRBC Absolute 0.000 0.000 - 0.000 x10(3)/mc L [facility] Blood 10/05/2022 1:04 AM EDT 10/05/2022 1:14 AM EDT Narrative Resulting Agency Comment Spec In Lab Teddy Willett MD HEMATOLOGY ORDERABLE S Performing Organization Address [facility] [place] [address] * Heparin (unfractionated) Level (10/05/2022 1:04 AM EDT) UF Heparin 0.11 IU/mL [facility] Comment: Heparin (anti-Xa) levels should [...] MD HEMATOLOGY ORDERABLE S Performing Organization Address [facility] Co de Phone Number [facility] [address] * (ABNORMAL) Glucose, fasting (10/05/2022 1:04 AM EDT) Pathologist [facility] Glucose Fasting 188(H) 65 - 99 mg/dL [facility] Comment: ?Fasting* Glucose Interpretive [...] of Diabetes Mellitus, Position Statement from the [place] [employer]. ??Diabetes Care, Volume 33, Supplement 1, Mar 2009 Blood 10/05/2022 1:04 AM EDT 10/05/2022 1:14 AM EDT Narrative Resulting Agency Comment Spec In Lab Teddy Willett MD CHEMISTRY ORDERABLES Performing Organization Address City/[facility]/ZIP Co de Phone Number [facility] [address] * Triglyceride (10/05/2022 1:04 AM EDT) [facility] Triglyceride 355 mg/dL [facility] Comment: Average Risk/Lower Risk: <150 mg/dL Borderline High Risk: 150-199 mg/dL High Risk: 200-499 mg/dL Very High Risk: >hz=419 mg/dL Blood 10/05/2022 1:04 AM EDT 10/05/2022 1:14 AM EDT Narrative Resulting Agency Comment Spec In Lab Teddy Willett MD CHEMISTRY ORDERABLES [facility] [address] * HDL/Cholesterol Profile (10/05/2022 1:04 AM EDT) Cholesterol, Total 133 mg/dL [facility] Comment: Lower Risk: <200 mg/dL Average Risk: 200-239 mg/dL Higher Risk: >rf=213 mg/dL HDL Cholesterol 32 mg/dL [facility] Comment: Males: ?? Higher Risk: <40 mg/dL Females: ?? Higher Risk: <50 mg/dL Cholesterol/HDL Ratio 4.2 ratio [facility] Chol/HDL Interpretation See Note [facility] Comment: Lipid management should be guided by a patient? s ASCVD risk, goals and preferences. ACC/AHA Guidelines recommend high intensity statin if clinical ASCVD or LDL greater than or equal to 190 mg/dL. http://[employer].com/KZY-IBT-Krqqzlxrq Measure LDL if Total Cholesterol minus HDL Cholesterol is greater than 220 mg/dL. Adults aged 40-75 with LDL 70-189 mg/dL should have their 10 year ASCVD risk estimated with the ACC/AHA ASCVD risk automotive collision estimator http://tools.acc.org/MDUZR-Rjll-Dvxfxkskg/ Statin should be discussed if risk greater [...] Willett MD CHEMISTRY ORDERABLES Performing Organization Address City/State/[facility] Co de Phone Number [facility] [address] * LDL Cholesterol, Direct (10/05/2022 1:04 AM EDT) LDL Cholesterol, Direct 61 mg/dL [facility] Comment: Lowest Risk: <100 mg/dL Lower Risk: 100-129 mg/dL Borderline High Risk: 130-159 mg/dL High Risk: 160-189 mg/dL Very High Risk: >wu=424 mg/dL Blood 10/05/2022 1:04 AM EDT 10/05/2022 1:14 AM EDT Narrative Resulting Agency Comment Spec In Lab Teddy Willett MD CHEMISTRY ORDERABLES [facility] [address] * (ABNORMAL) Hemoglobin A1c (10/05/2022 1:04 AM EDT) Hemoglobin A1c 7.4(H) 4.3 - 5.6 % [facility] Comment: Reference Range: 4.3 - 5.6% [...] Mellitus, Diabetes Care 2013; 36: Suppl. 1, S67-85 Estimated Average Glucose 165 mg/dL [facility] Comment: eAG equivalents for HbA1c percentages: [...] into estimated average glucose values. ??Diabetes Care 2008:31(8):3190-0466. Blood 10/05/2022 1:04 AM EDT 10/05/2022 1:14 AM EDT Narrative Resulting Agency Comment Spec In Lab Teddy Willett MD CHEMISTRY ORDERABLES Performing Organization Address [facility] Co de Phone Number [facility] [address] * (ABNORMAL) POCT Glucose (10/04/2022 11:38 PM EDT) [facility] Glucose, POC 292(H) 65 - 199 mg/dL [facility] Comment: Supplemental ranges: <140 mg/dL before meals <180 mg/dL all other times of the day Blood 10/04/2022 11:3 8 PM EDT 10/04/2022 11:38 PM EDT Yosef Wilkes MD POINT OF CARE TEST O RDERABLES Performing Organization Address [facility]/ZIP Co de Phone Number [facility] [address] * Differential, Automated (10/04/2022 9:56 PM EDT) [facility] Neutrophil % 61.6 % [facility] Neutrophil Absolute 5.06 1.70 - 6.10 x10(3)/[facility] Lymph % 26.1 % [facility] Lymphocytes Abs 2.1 0.9 - 3.2 x10(3)/[facility] Monocyte % 7.7 % [facility] Monocyte Abs 0.6 0.3 - 0.9 x10(3)/[facility] Eos % 3.5 % [facility] Eosinophils Abs 0.3 0.0 - 0.4 x10(3)/[facility] Basophil % 1.0 % [facility] Baso Absolute 0.1 0.0 - 0.1 x10(3)/[facility] Immature Gran % 0.10 % [facility] [facility] Comment: Immature granulocytes(IG's)percentage and absolute count will include metamyelocytes, myelocytes, and promyelocytes. Blood smears from CBCs yielding IG's will be scanned manually for concordance. If this scan disagrees with the automated IG or if promyelocytes are noted, a manual differential will be performed. Immature Gran Absolute 0.01 0.00 - 0.04 x10(3)/mcL [facility] Blood 10/04/2022 9:56 PM EDT 10/04/2022 10:03 PM EDT Narrative Resulting Agency Comment Spec In Lab Vivek eLe MD HEMATOLOGY ORDERAB LES [facility] [address] * (ABNORMAL) Hemogram (10/04/2022 9:56 PM EDT) White Blood Cell 8.2 4.0 - 9.5 x10(3)/mc L [facility] Red Blood Cell 5.80(H) 4.58 - 5.54 x10(6)/mc L [facility] Hemoglobin 17.1(H) 13.7 - 16.5 g/dL [facility] Hematocrit 52.6(H) 40.5 - 48.5 % [facility] Mean Cell Volume 90.7 82.9 - 93.1 fL [facility] Mean Cell Hemoglobin 29.5 27.5 - 32.1 pg [facility] Mean Cell Hemoglobin Concentration 32.5 32.0 - 35.7 g/dL [facility] Platelet 220 145 - 357 x10(3)/mc L [facility] RDW Standard Deviation 47.8(H) 36.0 - 45.0 fL [facility] RDW coefficient of variation 14.4(H) 11.4 - 13.8 % [facility] Mean Platelet Volume 9.6 7.6 - 12.9 fL [facility] NRBC% auto 0.0 % [facility] NRBC Absolute 0.000 0.000 - 0.000 x10(3)/mc L [facility] Blood 10/04/2022 9:56 PM EDT 10/04/2022 10:03 PM EDT Narrative Resulting Agency Comment Spec In Lab Vivek Lee MD HEMATOLOGY ORDERAB LES Performing Organization Address City/[facility]/ZIP Co de Phone Number [facility] [address] * Troponin (10/04/2022 9:56 PM EDT) Troponin-T, High Sensitivity 16 <=22 ng/L [facility] Comment: This patient's troponin T concentration [...] value can be found in the [facility] Laboratory Test Catalog Troponin - [facility] Test Catalog Reference: Fourth [place] Definition of Myocardial Infarction. Journal of the [place] [employer] 2018;72:7805-2788 Blood 10/04/2022 9:56 PM EDT 10/04/2022 10:03 PM EDT Narrative Resulting Agency Comment Spec In Lab Teddy Willett MD CHEMISTRY ORDERABLES Performing Organization Address [facility]/ZIP Co de Phone Number [facility] [address] * (ABNORMAL) POCT Glucose (10/04/2022 9:35 PM EDT) Glucose, POC 344(H) 65 - 199 mg/dL [facility] Comment: Supplemental ranges: <140 mg/dL before meals <180 mg/dL all other times of the day Blood 10/04/2022 9:35 PM EDT 10/04/2022 9:35 PM EDT Yosef Wilkes MD POINT OF CARE TEST O RDERABLES Performing Organization Address [facility] Co de Phone Number [facility] [address] * POCT Glucose (10/04/2022 6:43 PM EDT) Glucose, POC 80 65 - 199 mg/dL [facility] Comment: Supplemental ranges: <140 mg/dL before meals <180 mg/dL all other times of the day Blood 10/04/2022 6:43 PM EDT 10/04/2022 6:43 PM EDT Yosef Wilkes MD POINT OF CARE TEST O RDERABLES Performing Organization Address [facility] Co de Phone Number [facility] [address] * pro-Brain Natriuretic Peptide (10/04/2022 6:40 PM EDT) NT-proBNP 40 <=124 pg/mL [facility] Blood Venous Draw / Unknown 10/04/2022 6:40 PM EDT 10/04/2022 6:52 PM EDT Narrative Resulting Agency Comment Spec In Lab Vivek Lee MD CHEMISTRY ORDERABL ES Performing Organization Address [facility] Co de Phone Number [facility] [address] * Magnesium (10/04/2022 6:40 PM EDT) Magnesium 1.07 0.69 - 1.07 mmol/L [facility] Blood Venous Draw / Unknown 10/04/2022 6:40 PM EDT 10/04/2022 6:52 PM EDT Narrative Resulting Agency Comment Spec In Lab Vivek Lee MD CHEMISTRY ORDERABL ES [facility] [address] * (ABNORMAL) Basic Metabolic Panel (non-fasting) (10/04/2022 6:40 PM EDT) Glucose 75 65 - 199 mg/dL [facility] Comment:Diabetes: >=200 mg/d L plus symptoms Blood Urea Nitrogen 20 10 - 20 mg/dL [facility] Creatinine 1.54(H) 0.80 - 1.50 mg/dL [facility] Sodium 140 135 - 145 mmol/L [facility] Potassium 3.4(L) 3.5 - 5.0 mmol/L [facility] Comment: Please note: ??Patients with WBC >100,000 may have falsely elevated Potassium levels. ??For accurate Potassium quantification in these patients send serum separator tube (gold top) for subsequent determinations. ??Contact the Clinical Chemistry Laboratory if there are any questions. Chloride 98 98 - 107 mmol/L [facility] Carbon Dioxide 31 22 - 31 mmol/L [facility] Anion Gap 11 5 - 15 mmol/L [facility] Calcium 9.4 8.5 - 10.5 mg/dL [facility] Est Glomerular Filtration Rate 53(L) >=60 mL/min/1. 73 m?? [facility] Comment: This patient's estimated GFR was [...] MD CHEMISTRY ORDERABL ES Performing Organization Address [facility] Co de Phone Number [facility] [place] [address] * Heparin (unfractionated) Level (10/04/2022 6:40 PM EDT) UF Heparin <0.04 IU/mL [facility] Comment: Heparin (anti-Xa) levels should [...] MD HEMATOLOGY ORDERABLE S Performing Organization Address [facility] Co de Phone Number [facility] [address] * Troponin (10/04/2022 6:40 PM EDT) Troponin-T, High Sensitivity 17 <=22 ng/L [facility] Comment: This patient's troponin T [...] value can be found in the [facility] Test Catalog Troponin - [facility] Test Catalog Reference: Fourth [place] Definition of Myocardial Infarction. Journal of the [place] College [employer]iology 2018;72:8096-0990 Blood 10/04/2022 6:40 PM EDT 10/04/2022 6:52 PM EDT Narrative Resulting Agency Comment Spec In Lab Yosef Wilkes MD [place] [address] documented in this encounter Visit Diagnoses Not [...] at 1907, Until Migdalia 10/06/22 at 0054, Low blood sugar, For BG [...] (Given - Provid er: Corinna Vallecillo RN)161 ([facility] Hold - Provider: Admin Adt - Reason: Transfer to a Procedural area)175 ([facility] Unhold - Provider: Admin Adt) atorvastatin (Lipitor) tablet 80 mg 80 mg, Oral, EVERY EVENING, First dose on Mon10/04/22 at 2000, Until Discontinued, Routine 2146 (Given - Provider: Sil Lopez RN) 161 ([facility] Hold - Provider: Admin Adt - Reason: Transfer to a Procedural area)170 (Not Given - Provider: Corinna Vallecillo RN - Reason: Transfer to a Procedural area)175 ([facility] Unhold - Provider: Admin Adt)2016 (Given - Provider: Sil Lopez RN) budesonide-formoteroL (Symbicort) 160-4.5 mcg/actuation inhaler 2 Inhalation 2 .Inhalation , Inhalation, 2 TIMES DAILY (RESPIRATORY THERAPY), First dose on Mon10/04/22 at 2000, Until Discontinued, Routine 214 (Given - Provider: Sil Lopez RN) 0507 (Given - Provider: Sli Lopez RN)161 ([facility] Hold - Provider: Admin Adt - Reason: Transfer to a Procedural area)175 ([facility] Unhold - Provider: Admin Adt)2018 (Given - Provider: Sil Lopez RN) clopidogreL (Plavix) tablet 75 mg 75 mg, Oral, DAILY, First dose on Mon10/05/22 at 0900, Until Discontinued, Routine 09 (Given - Provid er: Corinna Vallecillo RN)161 ([facility] Hold - Provider: Admin Adt - Reason: Transfer to a Procedural area)175 ([facility] Unhold - Provider: Admin Adt) folic acid (Vitamin B9) tablet 1 mg 1 mg, Oral, DAILY, First dose on Mon10/04/22 at 2000, Until Discontinued, Routine 2152 (Given - Provider: Sil Lopez, GUILLAUME) 09 (Given - Provider: Corinna Vallecillo, RN)1618 ([facility] Hold - Provider: Admin Adt - Reason: Transfer to a Procedural area)175 ([facility] Unhold - Provider: Admin Adt) insulin glargine-ygfn (Semglee) (100 unit/mL) subcutaneous injection vial 40 Units (CANCELED) 40 Units, Subcutaneous, NIGHTLY, First dose (after last modification) on Mon10/04/22 at 2115, Until Discontinued, Routine 2254 (Given - Provider: Sil Lopez RN) 161 ([facility] Hold - Provider: Admin Adt - Reason: Transfer to a Procedural area)1721 ([facility] Unhold - Provider: ISABELLE Salazar) insulin [...] if BG less than 70 mg/dL., Routine 1849 (Given - Provid er: Corinna Vallecillo, GUILLAUME) insulin lispro (HumaLOG;Admelog) (100 unit/mL) subcutaneous injection [...] Sil Lopez RN)234 (Given - Provider: Sil Lopez RN) 0414 [...] area)175 ([facility] Unhold - Provider: Admin Adt) nicotine [...] (Patch Applied - Provider: Sil Lopez RN) 0906 (Patch Removed - Provider: Corinna Vallecillo RN)0908 (Patch Applied - Provider: Corinna Vallecillo RN)161 ([facility] Hold - Provider: Admin Adt - Reason: Transfer to a Procedural area)1757 ([facility] Unhold - Provider: Admin Adt)2244 (Due: Patch Removed - Provider: Automatic Discharge Provider - Comment: Time automatically adjusted from order being discontinued) nicotine (Nicoderm CQ) 21 mg/24 hr patch Patch Verification(Linked Group 2) Transdermal, 2 TIMES DAILY, First dose on Mon10/05/22 at 0715, Until Discontinued, Verify nicotine 21 mg/24 hr patch 714 (Patch (dose an d location) verified - Provider: Sil Lopez RN)161 ([facility] Hold - Provider: Admin Adt - Reason: Transfer to a Procedural area)1757 ([facility] Unhold - Provider: Admin Adt)2099 (Patch (dose [...] Procedural area)1757 ([facility] Unhold - Provider: Admin Adt)2018 (Given - Provider: Sil Lopez RN) sodium chloride 0.9 % (flush) (BD PosiFlush Normal Saline 0.9) flush 5 mL 5 mL, Intravenous, 2 TIMES DAILY, First dose on Mon10/04/22 at 2100, Until Discontinued, Routine 2100 (Not Given - Provider: Sil Lopez RN - Reason: See comment - Comment: previously flushed) 0907 (Given - Provider: Corinna Vallecillo, RN)161 ([facility] Hold - Provider: Admin Adt - Reason: Transfer to a Procedural area)175 ([facility] Unhold - Provider: Admin Adt)2018 (Given - Provider: Sil Lopez RN) thiamine (Vitamin B-1) tablet 100 mg 100 mg, Oral, DAILY, First dose on Mon10/04/22 at 2000, Until Discontinued, Routine 2146 (Given - Provider: Sil Lopez RN) 0906 (Given - Provider: Corinna Vallecillo, GUILLAUME)161 ([facility] Hold - Provider: Admin Adt - Reason: Transfer to a Procedural area)175 ([facility] Unhold - Provider: Admin Adt) tiotropium bromide (Spiriva Respimat) 2.5 mcg/actuation inhaler 2 puff 2 puff, Inhalation, DAILY, First dose on Mon10/04/22 at 2000, Until Discontinued, Must be primed prior to first administration, Routine 2148 (Given - Provider: Sil Lopez RN) 0907 (Given - Provider: Corinna Vallecillo, GUILLAUME)161 ([facility] Hold - Provider: Admin Adt - Reason: Transfer to a Procedural area)175 ([facility] Unhold - Provider: Admin Adt) Continuous [...] Reason: Transfer to a Procedural area)1758 ([facility] Unhold - Provider: Admin Adt) sodium [...] area)1757 ([facility] Unhold - Provider: Admin Adt) fentaNYL [...] area)1758 ([facility] Unhold - Provider: Admin Adt) glucose [...] Until Mon10/05/22 at 1711, Intra-Operative (Intra-Procedure), Routine 1651 (Given - Provid er: Josiah Alonso RN) [...] for discomfort with PIV insertion, Routine 1617 ([facility] Hold - Pro vider: Admin Adt - Reason: Transfer to a Procedural area)1757 ([facility] Unhold - Provider: Admin Adt) midazolam (pf) [...] Reason: Transfer to a Procedural area)1757 ([facility] Unhold - Provider: Admin Adt) nitroGLYcerin [...] Reason: Transfer to a Procedural area)1757 ([facility] Unhold - Provider: Admin Adt) nitroGLYcerin [...] Reason: Transfer to a Procedural area)175 ([facility] Unhold - Provider: Admin Adt) verapamiL [...] at 1907, Until Migdalia 10/06/22 at 0054, Low blood sugar, For BG [...] Routine documented in this encounter Care Teams Dural Mechanic Relationship Specialty Start Date End Date Karen Barbosa MD [address] [place] [address] PCP - General Family Medicine 10/04/22 documented as of this encounter
--- OUTSIDE RECORDS SUMMARY | 2023-12-10 00:43 | XMS_ITS | Encounter Summary ---
Author Organization [facility] [place] [address] Care Team Providers Care Tin Roofer Name Role Phone Robinson Vazquez APRN Primary Care Provider [phone]- [phone] Encounter Details Date Type Department Care Team (Late st Contact Info) Description 04/21/2022 8:55 PM EST Ancillary Procedure Radiology Library at [facility] [place] [address] Kadeem, Amanda aBrksdale APRN [address] [place], [place] [id number] Social History Tobacco Use Types Packs/Day Years [...] AM EDT Office Visit Neurosurgery at [address] [place] [address] Rosanna Clement MD [address] [place] [address] Chau Blackburn PA [address] [place] [address] 03/20/2024 10:00 AM EST Office [place] [phone] Tania Gates, [facility] [place] [address] 12/23/2024 8:00 AM EDT Office [place] [address] Tania Gates, [facility] [place] [address] documented as of this encounter Procedures Procedure Name Priority Date/Time Associated Diagnosis Comments FILM LIBRARY STORAGE ONLY MR SPINE Routine 04/21/2022 8:50 PM EST documented in this encounter Results * Film Library- Storage Only MR Spine (04/21/2022 8:50 PM EST) Narrative [facility] - 04/21/2022 8:50 PM EST This exam is auto-finalizing. It's purpose is for storage only. Amanda Barksdale Kadeem JOVANI IMG FILM LIBRARY O RDERABLES [place], [place] documented in this encounter Visit Diagnoses Not on filedocumented in this encounter Care Teams Tin Roofer Relationship Specialty Start Date End Date Robinson Vazquez APRN [address] [place] [address] PCP - General Family Medicine 12/11/20 10/03/22 documented as of this encounter
--- OUTSIDE RECORDS SUMMARY | 2023-12-10 00:43 | XMS_ITS | Encounter Summary ---
[place] [address] Care Team Providers Care Front Sight Attacher Name Role Phone Robinson Vazquez APRN Primary Care Provider [phone]- [phone] Reason for Visit * Reason Comments Decreased Visual Acuity OD Encounter Details Date Type Department Care Team (Late st Contact Info) Description 08/29/2022 3:45 PM EDT Office [place] [address] José Miguel Anderson MD [facility] [place] [address] PCO (posterior capsular opacification), right (Primary Dx); [...] 9:45 AM EDT Office Visit Neurosurgery at [facility] [address] [place] [address] Rosanna Clement MD [address] [facility] [place] [address] Chau Blackburn PA [address] [facility] [address] 03/20/2024 10:00 AM EST Office [place] [address] Tania Gates, [facility] [place] [place] [address] 12/23/2024 8:00 AM EDT Office [place] [address] Tania Gates, [facility] [place] [place] [address] documented as of this encounter Visit Diagnoses Diagnosis PCO (posterior capsular opacification), right- Primary After-cataract, unspecified Pseudophakia of right eye Lens replaced by other means documented in this encounter Care Teams Front Sight Attacher Relationship Specialty Start Date End Date Robisnon Vazquez, SALES ORDER COORDINATOR [address] [place] [address] PCP - General Family Medicine 12/11/20 10/03/22 documented as of this encounter
--- OUTSIDE RECORDS SUMMARY | 2023-12-10 00:43 | XMS_ITS | Encounter Summary ---
[place] [address] Care Team Providers Care Saloon Keeper Name Role Phone Robinson Vazquez APRN Primary Care Provider [phone]- [phone] Encounter Details Date Type Department Care Team [...] 9:45 AM EDT Office Visit Neurosurgery at [facility] [address] [place] [address] Rosanna Clement MD [address] [place] [address] [address] [place] [address] 03/20/2024 10:00 AM EST Office [place] [address] Tania Gates, [facility] [address] 12/23/2024 8:00 AM EDT Office [place] [address] Tania Gates, [facility] [place] [address] documented as of this encounter Visit Diagnoses Not on filedocumented in this encounter Care Teams Saloon Keeper Relationship Specialty Start Date End Date Robinson Vazquez APRN [address] [place] [address] PCP - General Family Medicine 12/11/20 10/03/22 documented as of this encounter
--- OUTSIDE RECORDS SUMMARY | 2023-12-10 00:43 | XMS_ITS | Encounter Summary ---
[place] [address] Care Team Providers Care Ged Tutor Name Role Phone Karen Barbosa MD Primary Care Provider [phone] Encounter Details Date Type Department Care Team [...] Encounters Date Type Department Care Team (Late Contact Info) Description 01/10/2024 9:45 AM EDT Office Visit Neurosurgery at [address] [place] [phone] Rosanna Clement MD [address] [place] [address] [place] [address] 03/20/2024 10:00 AM EST Office [place] [phone] Tania Gates, [facility] [address] 12/23/2024 8:00 AM EDT Office [place] [address] Tania Gates, [facility] [place] [address] documented as of this encounter Visit Diagnoses Not on filedocumented in this encounter Care Teams Ged Tutor Relationship Specialty Start Date End Date Karen Barbosa MD [address] [place] [id number] PCP - General Family Medicine 10/04/22 documented as of this encounter
--- OUTSIDE RECORDS SUMMARY | 2023-12-10 00:44 | XMS_ITS | Encounter Summary ---
Author Organization [facility] [place] [address] Care Team Providers Care Student Affairs Vice President Name Role Phone Robinson Vazquez APRN Primary Care Provider [phone]- [phone] Reason for Visit * Consultation (Routine) - Closed Specialty Diagnoses / Procedures Referred By Keith sanchez Referred To Contact Dermatology Diagnoses Actinic keratosis Actinic Keratosis due to Sun Exposure; New Patient-Notes Received Procedures Consult Robinson Vazquez APRN [address] [place] [address] [facility] [address] [place] [address] Referral ID Status Reason Start Date Expiration Date Visits Re quested Visits Authorized [id number] Closed 01/25/2021 01/25/2022 1 1 Encounter Details Date Type Department Care Team (Late st Contact Info) Description 03/30/2021 8:40 AM EST Office Visit Dermatology at [facility] [address] [place] [address] Amada Ferguson MD [facility] [address] [place] [address] SK (seborrheic keratosis); Multiple benign [...] can be removed cosmetically. Advised patient of [id number] cost. - Start OTC AmLactin Cream: Apply [...] 1 year for FSE [x]Note routed to corporate secretary []Recall placed in scheduling system []Appointment scheduled at checkout Scribe attestation: Anna Marie Vizcarra has performed the documentation for this encounter in the presence of and acting as a scribe for Amada Ferguson MD. I performed the above scribed service and agree with the accuracy of the documentation in this encounter. Reviewed and signed by: Amada Ferguson MD Dermatology [facility] Patient seen and evaluated with staff trainmaster: Zo Esqueda MD Dermatology [facility] * Zo Esqueda MD - 03/30/2021 8:40 [...] EDT Office Visit Neurosurgery at [facility] [address] [place] [address] Rosanna Clement MD [address] [facility] [place] [address] Chau Blackburn PA [address] [facility] [place] [address] 03/20/2024 10:00 AM EST [place] [address] Tania Gates, [facility] [place] [address] 12/23/2024 8:00 AM EDT [place] [address] Tania Gates, [facility] [place] [address] documented as of this encounter Visit Diagnoses Diagnosis SK (seborrheic keratosis) Other seborrheic keratosis Multiple benign melanocytic nevi of upper extremity, lower extremity, and trunk Lentigines Other dyschromia documented in this encounter Care Teams Student Affairs Vice President Relationship Specialty Start Date End Date Robinson Vazquez APRN [address] [place] [address] PCP - General Family Medicine 12/11/20 10/03/22 documented as of this encounter
--- OUTSIDE RECORDS SUMMARY | 2023-12-10 00:44 | XMS_ITS | Encounter Summary ---
Author Organization Formerly [facility]ika [place] [address] Care Team Providers Care Fire Alarm Operator Name Role Phone Robinson Vazquez APRN Primary Care Provider +1- [phone] Encounter Details Date Type Department Care Team (Late st Contact Info) Description 01/26/2021 [place] [address] Nathaniel Azevedo MD [facility] [place] [address] Dyspepsia Social History Tobacco Use Types Packs/Day [...] 9:45 AM EDT Office Visit Neurosurgery at [facility] 10 [place] [address] Rosanna Clement [place] [address] Chau Blackburn PA [address] [place] [address] 03/20/2024 10:00 AM EST Office [place] [address] Tania Gates, [facility] [place] [address] 12/23/2024 8:00 AM EDT Office [place] [address] Tania Gates, [facility] [place] [address] documented as of this encounter Visit Diagnoses Diagnosis Dyspepsia Dyspepsia and other specified disorders of function of stomach documented in this encounter Care Teams Fire Alarm Operator Relationship Specialty Start Date End Date Robinson Vazquez, FISHERIES OFFICER [address] [place] [address] PCP - General Family Medicine 12/11/20 10/03/22 documented as of this encounter
--- OUTSIDE RECORDS SUMMARY | 2023-12-10 00:44 | XMS_ITS | Encounter Summary ---
Author Organization Formerly [facility] [place] [address] Care Team Providers Care Manufacturing Shift Supervisor Name Role Phone Robinson Vazquez APRN Primary Care Provider [phone]- [phone] Reason for Referral * Consultation (Routine) - Closed Specialty Diagnoses / Procedures Referred By Keith t Referred To Contact Ophthalmology Diagnoses Other visual disturbances Robinson Vazquez APRN [address] [place] [address] Tania Gates, [facility] [place] [address] Referral ID Status Reason Start Date Expiration Date V isits Requested Visits Authorized [id number] Closed Consult, Test & Treat PCP Updated and/or Approved 10/13/2021 10/13/2022 6 6 Encounter Details Date Type Department Care Team (Late st Contact Info) Description 10/13/2021 Transcribe Orders eDH Incoming Referrals [phone] Robinson Vazquez APRN [address] [place], [place] [id number] Other visual disturbances Social History Tobacco Use [...] Visit Neurosurgery at [facility] 10 [place] [address] Rosanna Clement MD 10 [facility] [place] [address] Chau Blackburn PA 10 [facility] [place] [address] 03/20/2024 10:00 AM EST Office [place] [address] Tania Gates, [facility] [place] [address] 12/23/2024 8:00 AM EDT Office Visit Ophthalmology at [place] [phone] Tania Gates, [facility] [place] [address] Scheduled Referrals Name Type Priority Associated Diagnoses Orde r Schedule Referral to Ophthalmology Outpatient Referral Routine Other visual disturbances Ordered: 10/13/2021 documented as of this encounter Visit Diagnoses Diagnosis Other visual disturbances documented in this encounter Care Teams Manufacturing Shift Supervisor Relationship Specialty Start Date End Date Robinson Vazquez APRN [address] [place] [address] PCP - General Family Medicine 12/11/20 10/03/22 documented as of this encounter
--- OUTSIDE RECORDS SUMMARY | 2023-12-10 00:44 | XMS_ITS | Encounter Summary ---
[place] [address] Care Team Providers Care Harness Placer Name Role Phone Robinson Vazquez APRN Primary Care Provider [phone]- [phone] Encounter Details Date Type Department Care Team (Late st Contact Info) Description 04/12/2021 Telephone [place] [phone] Joanna Carlson CMA GASTROENTEROLOGY DEPT Social History [...] Visit Neurosurgery at [facility] 10 [place] [address] [place] [address] [place] [address] 03/20/2024 10:00 AM EST Office [place] [address] Tania Gates, [facility] [place] [address] 12/23/2024 8:00 AM EDT Office [place] [address] Tania Gates, [facility] [place] [address] documented as of this encounter Visit Diagnoses Not on filedocumented in this encounter Care Teams Harness Placer Relationship Specialty Start Date End Date Robinson Vazquez APRN [address] [place] [address] PCP - General Family Medicine 12/11/20 10/03/22 documented as of this encounter
--- OUTSIDE RECORDS SUMMARY | 2023-12-10 00:44 | XMS_ITS | Encounter Summary ---
[place] [address] Care Team Providers Care Director Translational Name Role Phone Sae Marr MD Primary Care Provider [phone] Reason for Visit * Reason Onset Date Comments Bumped Appointment 01/29/2020 Encounter Details Date Type Department Care Team (Late st Contact Info) Description 01/29/2020 [place] [phone] Tania Gates OD [facility] [place] [address] Bumped Appointment Social History Tobacco Use Types [...] Hassan - 01/29/2020 4:46 PM ESTSummary: [facility]12[facility]20. [facility] w [facility] 02[facility]20 PETER Gates FU for: 1 year for CEE. Reviewed updated Visitors Policy w pt, he will plan accordingly. BMP 1x, -Last Seen 02/08/19. RSC to 02/12/20. documented in this encounter Plan of Treatment Upcoming Encounters Date Type Department Care Team (Late st Contact Info) Description 01/10/2024 9:45 AM EDT Office Visit Neurosurgery at [facility] 10 [place] [address] Rosanna Clement MD 10 [facility] [place] [address] Chau Blackburn PA 10 [facility] [place] [address] 03/20/2024 10:00 AM EST Office [place] [address] Tania Gates, [facility] [place] [address] 12/23/2024 8:00 AM EDT Office [place] [address] Tania Gates, [facility] [place] [address] documented as of this encounter Visit Diagnoses Not on filedocumented in this encounter Care Teams Director Translational Relationship Specialty Start Date End Date Sae Marr MD PCP - General General Internal Medicine 08/06/19 9/3 documented as of this encounter
--- OUTSIDE RECORDS SUMMARY | 2023-12-10 00:44 | XMS_ITS | Encounter Summary ---
Author Organization [facility] [address] Care Team Providers Care Pianos And Organs Salesperson Name Role Phone Robinson Vazquez APRN Primary Care Provider [phone]- [phone] Reason for Visit * Reason Comments Eye Exam * Consultation (Routine) - Closed Specialty Diagnoses / Procedures Referred By Keith sanchez Referred To Contact Ophthalmology Diagnoses Other visual disturbances Robinson Vazquez APRN [address] [place] [address] Tania Gates, [facility] [place] [address] Referral ID Status Reason Start Date Expiration Date V isits Requested Visits Authorized [id number] Closed Consult, Test & Treat PCP Updated and/or Approved 10/13/2021 10/13/2022 6 6 Encounter Details Date Type Department Care Team (Late st Contact Info) Description 01/26/2022 7:40 AM EST [place] [address] Tania Gates, [facility] [place] [address] Diabetic eye exam; Pseudophakia of right eye; [...] both eyes with presbyopia Samy Oreilly Sheng Wells is a 56 y.o. with the following [...] Rx given today in polycarbonate and advised evp global multimedia sales wear for eye protection! - Findings and concerns discussed with Samy and he expressed understanding. Eyeglass Final Rx Eyeglass Final Rx Sphere Dist VA Add Near VA Right [place] 20/40-1 +2.25 20/20-1 Left [place] 20/400 +2.25 20/800-1 Expiration Date: 01/27/2024 documented in this encounter Plan of Treatment Upcoming Encounters Date Type Department Care Team (Late st Contact Info) Description 01/10/2024 9:45 AM EDT Office Visit Neurosurgery at [facility] [address] [place] [address] Rosanna Clement MD [address] [address] Chau [place] [address] 03/20/2024 10:00 AM EST Office [place] [address] Tania Gates, [facility] [place] [address] 12/23/2024 8:00 AM EDT Office [place] [address] Tania aGtes, [facility] [address] documented as of this encounter Visit Diagnoses Diagnosis Diabetic eye exam Examination of eyes and vision Pseudophakia of right eye Lens replaced by other means Age-related nuclear cataract of left eye Senile nuclear sclerosis History of eye injury Personal history of other injury Astigmatism of both eyes with presbyopia documented in this encounter Care Teams Pianos And Organs Salesperson Relationship Specialty Start Date End Date Robinson Vazquez APRN [address] [place] [address] PCP - General Family Medicine 12/11/20 10/03/22 documented as of this encounter
--- OUTSIDE RECORDS SUMMARY | 2023-12-10 00:44 | XMS_ITS | Encounter Summary ---
[place] [address] Care Team Providers Care Industrial Court Magistrate Name Role Phone Robinson Vazquez APRN Primary Care Provider [phone]- [phone] Encounter Details Date Type Department Care Team (Late st Contact Info) Description 01/26/2021 7:36 AM EST Anesthesia Event [place] [address] Ashwini Mims MD [facility] [place] [address] [facility] [place] [address] Anesthesia Record Procedure Summary Procedure Name Responsible Anesthesiologist Anesthesia Start Time Anesthesia Stop Time EGD WITH BIOPSY (WRVU 2.39) (Trunk) Ashwini Mims MD 01/26/21 0736 01/26/21 0813 Events Date [...] 696.15 mg Dexmedetomidine 20 mcg Benzocaine 20% Telephone 1 spray Succinylcholine 100 mg Ondansetron 4 mg lactated ringers infusion 200 mL * Agents Name O2 Air N2O Sevoflurane (et) * Blood No blood administrations on file. Lines, Drains, and Airways Type Details Placement Removal (RETIRED) Peripheral IV Line - Single Lumen 12/29/20; 1026; metacarpal vein (top of hand), left; nfwq-shd-jgkhwz catheter system; Anatomical Landmarks; US Not Used; 20 gauge, 3/4 in length; distraction, tolerated well, intradermal injection; 08/17/21 (LDA Cleanup utility RA#[id number]); 1027 (LDA Cleanup utility RA#[id number]) 12/29/20 1026 by Nathaniel Ulloa RN 08/17/21 1027 by Bryn Shankar (RETIRED) Peripheral IV Line - Single Lumen 12/29/20; 1039; median cubital vein (antecubital fossa), right; mpyc-qap-owvhdj catheter system; Anatomical Landmarks; US Not Used; [...] Notes * Anesthesia Postprocedure Evaluation - Ashwini Mims MD - 01/26/2021 10:31 AM EST Department of Anesthesiology Post-procedure Note Patient: Samy Patricio Jr. Procedure Summary Date: 01/26/21 Room / Location: [facility] 3 / [facility] Anesthesia Start: 735 Anesthesia Stop: 812 Procedure: EGD WITH BIOPSY (WRVU 2.49) (N/A Trunk) Diagnosis: Dyspepsia (dyspepsia, hx of H pylori on PPI - please biopsy for H pylori) Surgeons: Nathaniel Azevedo MD Responsible Provider: Ashwini Mims MD Anesthesia Type: general ASA Status: 3 All Anesthesia Providers: Anesthesiologist: Ashwini Mims MD DIGITAL COMPOSER: Sumaya Agrawal CRNA Vitals Value Taken Time BP 113/70 01/26/21 0840 Temp Pulse Resp 18 01/26/21 0830 SpO2 89 % 01/26/21 0846 Pain Level 0 01/26/21 0841 Vitals shown include unvalidated device data. Patient Location: PACU/[facility] Level of Consciousness: Awake and Alert Pain Management: Satisfactory Analgesia PONV: None Cardiovascular Status: At Baseline and Hemodynamically Stable Respiratory Status: At Baseline and Room Air Postoperative Fluid Status: Intravascular EUvolemia Possible Anesthetic Complications: NONE apparent at time of evaluation Final Primary Anesthesia Type: MAC (The anesthetic type performed was the same as planned.) Comments: ASHWINI MIMS MD * Anesthesia Preprocedure Evaluation - Ashwini Mims MD - 01/26/2021 7:17 AM EST Pre-Anesthesia [...] 10 mg - LVEDP 21 in the Billet Heater Operator - Prior to Cardiac Catheterization, noted [...] and vomiting [place] [facility] and had vomiting after Past Surgical History: Procedure Laterality Date ??? CATARACT REMOVAL Right 2016 ??? CORONARY ANGIOPLASTY WITH STENT PLACEMENT 08/2017 ??? PRO UPPER GI ENDOSCOPY, BIOPSY 04/26/2011 EGD WITH BIOPSY performed by KIRSTEN DAMON at [facility] END[facility] ??? PRO UPPER GI ENDOSCOPY, BIOPSY N/A 09/27/2018 UPPER GASTROINTESTINAL ENDOSCOPY,WITH BIOPSY SINGLE OR MULTIPLE (WRVU 2.49) performed by Luc Hdz MD at [facility] Social History Tobacco Use ??? [...] 55 year old male with recent ST SC Type 2 DM Morbid obesity and CAITLYN and COPD here for EGD. Region - Other Informed Consent: Anesthetic plan and risks discussed with patient. Plan discussed with DIGITAL COMPOSER. Anesthesia Screening documented in this encounter Plan of Treatment Upcoming Encounters Date Type Department Care Team (Late st Contact Info) Description 01/10/2024 9:45 AM EDT Office Visit Neurosurgery at [facility] 10 [place] [address] Rosanna Clement MD 10 [facility] [place] [address] Chau Blackburn PA 10 [facility] [place] [address] 03/20/2024 10:00 AM EST Office Visit Ophthalmology at [place] [phone] Tania Gates, [facility] [place] [address] 12/23/2024 8:00 AM EDT Office [place] [address] Tania Gates, [facility] [place] [address] documented as of this encounter Visit Diagnoses [...] Until Mon01/26/21 at 0813, Anesthesia Intra-op, Routine New Bag 01/26/2021 7:39 [...] at 0813, Anesthesia Intra-op, Routine Given 01/26/2021 7:49 AM EST 100 mg documented in this encounter Care Teams Industrial Court Magistrate Relationship Specialty Start Date End Date Robinson Vazquez APRN [address] [place] [address] PCP - General Family Medicine 12/11/20 10/03/22 documented as of this encounter
--- OUTSIDE RECORDS SUMMARY | 2023-12-10 00:44 | XMS_ITS | Encounter Summary ---
Author Organization Formerly [facility] [place] [address] Care Team Providers Care Wireless Architect Name Role Phone Sae Marr MD Primary Care Provider [phone] Reason for Visit * Consultation (Routine) - Closed Specialty Diagnoses / Procedures Referred By Keith sanchez Referred To Contact Gastroenterology Diagnoses Abdominal pain and bloating Procedures Consult Gale Calderon MD [address] [place] [address] [facility] Gastro [address] [place] [address] Referral ID Status Reason Start Date Expiration Date Visits Re quested Visits Authorized [id number] Closed 05/29/2020 05/29/2021 1 1 Encounter Details Date Type Department Care Team (Late st Contact Info) Description 09/09/2020 1:30 PM EDT Office [place] [address] Janki Jean MD [facility] [place] [address] Dyspepsia; Abdominal bloating; Belching; Watery diarrhea Social [...] ?? Try the low FODMAP diet (see [facility] Solaiemes Roxana), work with your dental patient coordinator Follow-up: Telehealth in 2-3 months If no improvement, obtain additional testing and consider a trial of low dose psyllium (metamucil fiber). documented in this encounter Progress Notes * Janki Jean MD - 09/09/2020 1:30 PM EDT [facility] Section of Gastroenterology and Hepatology New Patient Visit PCP: Sae Marr MD Referring provider: Gale Bonner MD [address] [place] [address] HPI: This is a 54 y.o. male [...] peptic ulcers ?? 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 Duration of ETOH/tobacco: Has cut down on tobacco but has not quit. ETOH since age 46, 1-2 drinks/night. 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 CATARACT REMOVAL Right 2016 ??? CORONARY ANGIOPLASTY WITH STENT PLACEMENT 08/2017 ??? PRO UPPER GI ENDOSCOPY, BIOPSY 04/26/2011 EGD WITH BIOPSY performed by KIRSTEN DAMON at [facility] END[facility]COPY ??? PRO UPPER GI ENDOSCOPY, BIOPSY N/A 09/27/2018 UPPER GASTROINTESTINAL ENDOSCOPY,WITH BIOPSY SINGLE OR MULTIPLE (WRVU 2.49) performed by Luc Hdz MD at [facility] END[facility] Social History Socioeconomic History ??? [...] , Rfl: ??? OneTouch Verio Flex meter [facility], TEST BLOOD GLUCOSE TWICE A DAY, Disp: , Rfl: ??? znislsvzdxw-kkornrray-bjtuzred 100-62.5-25 mcg Disk with Device, 1 puff [...] ?? Try the low FODMAP diet (see [facility] Solaiemes Roxana), work with your dental patient coordinator Follow-up: Telehealth in 2-3 months If no [...] Jean MD Section of Gastroenterology and Hepatology [facility] [address] documented in this encounter Plan of Treatment Upcoming Encounters Date Type Department Care Team (Late st Contact Info) Description 01/10/2024 9:45 AM EDT Office Visit Neurosurgery at [facility] 10 [place] [address] Rosanna Clement MD 10 [place] [address] Chau Blackburn PA 10 NEUROSURGERY [place], [place] [address] 03/20/2024 10:00 AM EST Office Visit Ophthalmology at [place] [phone] Tania Gates OD [facility] [place] [address] 12/23/2024 8:00 AM EDT Office [place] [address] Tania Gates OD [facility] [place] [address] documented as of this encounter Visit Diagnoses Diagnosis Dyspepsia Dyspepsia and other specified disorders of function of stomach Abdominal bloating Flatulence, eructation, and gas pain Belching Flatulence, eructation, and gas pain Watery diarrhea documented in this encounter Care Teams Wireless Architect Relationship Specialty Start Date End Date Sae Marr MD PCP - General General Internal Medicine 08/06/19 9/ documented as of this encounter
--- OUTSIDE RECORDS SUMMARY | 2023-12-10 00:44 | XMS_ITS | Encounter Summary ---
Author Organization [facility] [place] [address] Care Team Providers Care Academic Support Coordinator Name Role Phone Robinson Vazquez APRN Primary Care Provider [phone] Encounter Details Date Type Department Care Team (Latest Contact Info) Description 12/28/2020 8:00 AM EDT TH Visit (TeleHealth) [place] [address] Janki Jean MD [facility] [place] [address] Watery diarrhea; Abdominal bloating; Dyspepsia Social History [...] Jean MD - 12/28/2020 8:00 AM EDT [facility] Section of Gastroenterology and Hepatology Follow-up [...] peptic ulcers ?? EGDs in our system 0518-1142 (multiple) - all with the appearance of [...] day, dinner, always been that way White [place] when relaxing, 1-2, could cause more pain [...] chest pain intermittently, going to see his tube draw helper. Duration of ETOH/tobacco: Has cut down on [...] WITH BIOPSY performed by KIRSTEN DAMON at [facility] ENDOSCOPY ??? PRO UPPER GI ENDOSCOPY, BIOPSY N/A 09/27/2018 UPPER GASTROINTESTINAL ENDOSCOPY,WITH BIOPSY SINGLE OR MULTIPLE (WRVU 2.49) performed by Luc Hdz MD at [facility] ENDOSCOPY Social History Socioeconomic History [...] TWICE A DAY, Disp: , Rfl: ??? gzvxwzxunzy-dzovlbwmv-eyvqcglr 100-62.5-25 mcg Disk with Device, 1 puff [...] 3 months The patient was located in [place] at the time of their telemedicine visit. TIME SPENT WITH PATIENT Time spent during encounter with patient including counselin minutes Time spent documenting encounter after office visit: 5 minutes Total time: 31 minutes The risks, benefits and alternatives were discussed with the patient who understands and agrees with above. Janki Jean MD 12/27/20 Janki Jean MD Section of Gastroenterology and Hepatology [facility] [address] documented in this encounter Plan of Treatment Upcoming Encounters Date Type Department Care Team (Late st Contact Info) Description 01/10/2024 9:45 AM EDT Office Visit Neurosurgery at [facility] 10 [place] [address] Rosanna Clement MD 10 [facility] [place] [address] Chau Blackburn PA [address] [facility] [place] [address] 03/20/2024 10:00 AM EST Office Visit Ophthalmology at [place] [phone] Tania Gates, [facility] [place] [address] 12/23/2024 8:00 AM EDT Office Visit [place] [address] Tania Gates, [facility] [place] [address] Scheduled Orders Name Type Priority Associated Diagnoses [...] who have questions please contact the health care clinician that requested your imaging first. ? Electronically signed by: Jazmin Reed MD, [facility] ([phone]), at 12/29/2020 3:32 PM Procedure Note Jazmin [...] patients who have questions please contactthe health care clinician that requested your imaging first. Electronically signed by: Jazmin Reed MD, [facility]([phone]), at 12/29/2020 3:32 PM Janki Jean MD IMG DX ORDERABLES documented in this encounter Visit Diagnoses Diagnosis Watery diarrhea Abdominal bloating Flatulence, eructation, and gas pain Dyspepsia Dyspepsia and other specified disorders of function of stomach Abdominal bloating Flatulence, eructation, and gas pain documented in this encounter Care Teams Academic Support Coordinator Relationship Specialty Start Date End Date Robinson Vazquez, PAINTER MIRROR [address] [place] [address] PCP - General Family Medicine 12/11/20 10/03/22 documented as of this encounter
--- OUTSIDE RECORDS SUMMARY | 2023-12-10 00:44 | XMS_ITS | Encounter Summary ---
Author Organization [facility] [place] [address] Care Team Providers Care Legal Recruiter Name Role Phone Sae Marr MD Primary Care Provider [phone] Reason for Visit * Reason Comments Eye Exam Encounter Details Date Type Department Care Team (Late st Contact Info) Description 02/12/2020 10:00 AM EST Office [place] [address] Tania Gates, OD [facility] [place] [address] Diabetic eye exam; Pseudophakia of right eye; [...] Rx given today in polycarbonate and advised multimedia project manager wear for eye protection! - Findings and concerns discussed with Samy and he expressed understanding. -Upon Return CEE in 1 year, sooner with changes in sx/vision. Eyeglass Final Rx Eyeglass Final Rx Sphere Cylinder [place] Dist VA Add Near VA Right +0.50 +0.50 175 20/20 - +2.50 20/20 Left Balance Expiration Date: 02/12/2022 Polycarbonate documented in this encounter Plan of Treatment Upcoming Encounters Date Type Department Care Team (Late st Contact Info) Description 01/10/2024 9:45 AM EDT Office Visit Neurosurgery at [facility] [address] [place] [address] Rosanna Clement MD [address] [place] [address] Chau Blackburn PA [address] [place] [address] 03/20/2024 10:00 AM EST Office [place] [address] Tania Gates, [facility] [place] [address] 12/23/2024 8:00 AM EDT Office [place] [address] Tania Gates, [facility] [place] [place] [address] documented as of this encounter Visit Diagnoses Diagnosis Diabetic eye exam Examination of eyes and vision Pseudophakia of right eye Lens replaced by other means Age-related nuclear cataract of left eye Senile nuclear sclerosis History of eye injury Personal history of other injury Astigmatism of both eyes with presbyopia documented in this encounter Care Teams Legal Recruiter Relationship Specialty Start Date End Date Sae Marr MD PCP - General General Internal Medicine 08/06/19 9/ documented as of this encounter
--- OUTSIDE RECORDS SUMMARY | 2023-12-10 00:44 | XMS_ITS | Encounter Summary ---
Author Organization [facility] [place] [address] Care Team Providers Care Social Sciences Department Chair Name Role Phone Robinson Vazquez APRN Primary Care Provider [phone]- [phone] Encounter Details Date Type Department Care Team (Late st Contact Info) Description 12/18/2020 Orders [place] [phone] Royce Donahue PA [facility] [place] [address] Screening for cardiovascular condition; Coronary artery disease, unspecified vessel or lesion type, unspecified whether angina present, unspecified whether northern [place] or transplanted heart; Chest discomfort Social History [...] Office Visit Neurosurgery at [facility] [place] [phone] Rosanna Clement MD [address] [place] [address] Chau Blackburn PA [address] [place] [address] 03/20/2024 10:00 AM EST Office Visit Ophthalmology at [place] [phone] Tania Gates, [facility] [place] [address] 12/23/2024 8:00 AM EDT Office [place] [address] Tania Gates, [facility] [place] [address] documented as of this encounter Visit Diagnoses Diagnosis Screening for cardiovascular condition Screening for other and unspecified cardiovascular conditions Coronary artery disease, unspecified vessel or lesion type, unspecified whether angina present, unspecified whether northern [place] or transplanted heart Chest discomfort Other chest pain documented in this encounter Care Teams Social Sciences Department Chair Relationship Specialty Start Date End Date Robinson Vazquez APRN [address] [place] [address] PCP - General Family Medicine 12/11/20 10/03/22 documented as of this encounter
--- OUTSIDE RECORDS SUMMARY | 2023-12-10 00:44 | XMS_ITS | Encounter Summary ---
[place] [address] Care Team Providers Care Certified Driver Examiner Name Role Phone Robinson Vazquez APRN Primary Care Provider [phone]- [phone] Reason for Referral * Consultation (Urgent) - Closed Specialty Diagnoses / Procedures Referred By Keith sanchez Referred To Contact Vascular Surgery Diagnoses Peripheral vascular disease, unspecified Karen Barbosa MD [facility] [place] [place] [address] [facility] Vascular Surg [address] [place] [address] Referral ID Status Reason Start Date Expiration Date V isits Requested Visits Authorized [id number] Closed Consult, Test & Treat 02/07/2022 02/07/2023 1 1 Encounter Details Date Type Department Care Team (Late st Contact Info) Description 02/07/2022 Transcribe Orders eDH Incoming Referrals [phone] Karen Barbosa MD [address] [place], [place] [id number] Peripheral vascular disease, unspecified Social History Tobacco [...] 9:45 AM EDT Office Visit Neurosurgery at [facility] [address] [place] [address] Rosanna Clement MD 10 [facility] [place] [address] Chau Blackburn PA 10 [facility] [place] [address] 03/20/2024 10:00 AM EST Office Visit Ophthalmology at [place] [phone] Tania Gates, [facility] [place] [address] 12/23/2024 8:00 AM EDT Office [place] [address] Tania Gates, [facility] [place] [address] Scheduled Referrals Name Type Priority Associated Diagnoses Orde r Schedule Referral to Vascular Surgery Outpatient Referral Urgent Peripheral vascular disease, unspecified Ordered: 02/07/2022 documented as of this encounter Visit Diagnoses Diagnosis Peripheral vascular disease, unspecified documented in this encounter Care Teams Certified Driver Examiner Relationship Specialty Start Date End Date Robinson Vazquez APRN [address] [place] [address] PCP - General Family Medicine 12/11/20 10/03/22 documented as of this encounter
--- OUTSIDE RECORDS SUMMARY | 2023-12-10 00:44 | XMS_ITS | Encounter Summary ---
[place] [address] Care Team Providers Care Nut Culler Name Role Phone Robinson Vazquez APRN Primary Care Provider [phone]- [phone] Encounter Details Date Type Department Care Team (Latest Contact Info) Description 12/29/2020 8:30 AM EDT - 12/29/2020 3:12 PM EDT Hospital Encounter [employer] [place] [address] Snehal Dia MD [facility] [place] [address] Screening for cardiovascular condition; Coronary artery disease, unspecified vessel or lesion type, unspecified whether angina present, unspecified whether tangirnaq or transplanted heart; Chest discomfort Discharge Disposition: [...] Your Primary Care Provider: Sae Marr MD [phone] For questions regarding this document or issues relating to this hospitalization on the Medical Service, please contact your inpatient physician through the [facility] Electron Microscopist . Issues afterhours and on weekends will [...] TEST BLOOD GLUCOSE TWICE A DAY 06/23/2020 xdbzikrmktt-txnctrdwq-p ilanter 100-62.5-25 mcg Disk with Device Inhale [...] date: 12/29/2020 Attending Physician: Snehal Dia MD [facility] Heart [facility] V[facility] Center Interventional Cardiology Adult Pre-Procedure H&P Update: Mr Samy Patricio [id number] 1965 Chief Complaint: Chest discomfort HPI: Samy Patricio Jr. is a 55 y.o. male referred for cardiac catheterization By his cloth framer in the [place] Dr BRITT Kingston ([facility]) for evaluation of coronary artery anatomy and cardiac hemodynamics in the setting of progressive angina and prior CAD. His medical history is notable for coronary disease with nstemi 2017 and RCA/LCx intervention at [facility], then in 2019 STEMI with inferior [...] GERD/ Barretts DM SOCIAL Hx: Lives in [facility] Outpatient Medications Marked as Taking for the 12/29/20 encounter (Hospital Encounter) Medication Sig Dispense Refill ??? fpaixeenllh-zbaceabsy-vuxybxqt 100-62.5-25 mcg Disk with Device 1 puff [...] ISABELLE Jackson Interventional Cardiology 12/29/20 10:12 AM [facility] Pager: [phone] documented in this encounter Miscellaneous Notes * Brief Op Note - Snehal Dia MD - 12/29/2020 12:52 PM EDT Preliminary Cardiac Catheterization Procedure Note: Patient Name: Samy Patricio Jr. : [id number] MR#: [id number] Case Date: 12/29/2020 Electron Microscopist: Surgeon(s) and Role: * Snehal Dia MD [...] 9:45 AM EDT Office [place] [address] Rosanna [place] [address] Chau Blackburn [place] [address] 03/20/2024 10:00 AM EST Office [place] [address] Tania Gates OD [facility] [place] [address] 12/23/2024 8:00 AM EDT Office Visit Ophthalmology at [facility] [place] [address] Tania Gates OD [facility] [place] [address] documented as of this encounter Procedures Procedure Name Priority Date/Time Associated Diagnosis Comments POCT GLUCOSE Routine 01/26/2021 7:22 AM EST CARDIAC CATHETERIZATION Routine 12/29/2020 12:50 PM EDT Screening for cardiovascular condition Coronary artery disease, unspecified vessel or lesion type, unspecified whether angina present, unspecified whether tangirnaq or transplanted heart Chest discomfort POCT GLUCOSE [...] type, unspecified whether angina present, unspecified whether tangirnaq or transplanted heart Chest discomfort POCT GLUCOSE Routine 12/29/2020 9:50 AM EDT documented in this encounter Results * POCT Glucose (01/26/2021 7:22 AM EST) Glucose, POC 143 65 - 199 mg/dL [facility] Comment: Supplemental ranges: <140 mg/dL before meals <180 mg/dL all other times of the day Blood 01/26/2021 7:22 AM EST 01/26/2021 7:22 AM EST Snehal Dia MD POINT OF CARE TEST O RDERABLES Performing Organization Address [facility]/State/ZIP Co de Phone Number [facility] [place] [address] * CARDIAC CATHETERIZATION (12/29/2020 12:50 PM EDT) Anatomical Region Laterality Modality Other Narrative 12/29/2020 4:24 PM EDT ?[facility] ? Cardiac Catheterization/Intervention Report ? Patient Name: Samy Patricio Jr. S. ? Procedure Date: 12/29/2020 ? A #: [id number] ? Primary Physician: Ifeoma, Snehal E ? Case #: [id number] ? File Name: [id number] ? Catheterization Order Number: [id number] ? [facility] ? Final Report [place], [place] ? Patient Name: ? Samy Acosta. Bruna Patricio ?ID#: ?[id number] ? : ?1965 ? Procedure Date: ? December 29, 2020 ? Case #: ? [id number] ? Room: ? 1 ? Case Physician: ? Snehal Dia M.D. ? Start: ?12:24 ?Fellow: ? Yves Fernandez M.D. ?Admission: ??12/29/2020 ? Referring Physician: ??Eileen Nelson Deandre Kingston ? Procedures: ?* Coronary Angiography ?* Left Heart Catheterization ? History ?Samy Jenn Patricio is a 55 year old man. [...] was designated as ?ASA Class III. The CSHA clinical frailty scale is 4: Vulnerable. ? Diagnostic Tests: ?Electrocardiography: ? EKG was assessed by ECG. EKG was Abnormal. EKG showed ST Deviation ? >= 0.5 mm. ?Medications Prior to Procedure: ? Aspirin, Beta Alejandra, Long Acting Nitrate and Statin. ? Indications for Diagnostic Cath: ?The priority of the diagnostic procedure was Elective. The indication for ?the chemical processing laborer visit is worsening angina. Chest pain [...] Procedure Note Snehal Dia MD - 12/29/2020 [facility] Cardiac Catheterization/Intervention Report Patient Name: Samy Patricio Jr. Procedure Date: 12/29/2020 A #: [id number] Primary Physician: Snehal Dia Case #: [id number] File Name: [id number] Catheterization Order Number: [id number] [facility] FinalReport [place], [place] Patient Name: Samy Patricio ID#:[id number] :1965 Procedure Date: December 29, 2020 Case [...] patient wasdesignated as ASA Class III. The [facility] clinical frailty scale is 4: Vulnerable. Diagnostic Tests: Electrocardiography: EKG was assessed by ECG. EKG was Abnormal. EKG showed STDeviation >= 0.5 mm. Medications Prior to Procedure: Aspirin, Beta Alejandra, Long Acting Nitrate and Statin. Indications for Diagnostic Cath: The priority of the diagnostic procedure was Elective. Theindication for the chemical processing laborer visit is worsening angina. Chest pain symptomassessment [...] units of heparin were administered. A total [id number] of Omnipaque were opened, 75cc of Omnipaque were administered oxr50nl of Omnipaque were wasted. Radiation: Fluoro time [...] * POCT Glucose (12/29/2020 12:32 PM EDT) [facility] Glucose, POC 152 65 - 199 mg/dL [facility] Comment: Supplemental ranges: <140 mg/dL before meals <180 mg/dL all other times of the day Blood 12/29/2020 12:3 2 PM EDT 12/29/2020 12:32 PM EDT Snehal Dia MD POINT OF CARE TEST O RDERABLES [facility] [place] [address] * Differential, Automated (12/29/2020 10:19 AM EDT) [facility] Neutrophil % 63.2 % [facility] Neutrophil Absolute 4.73 1.70 - 6.10 x10(3)/[facility] Lymph % 25.2 % [facility] Lymphocytes Abs 1.9 0.9 - 3.2 x10(3)/[facility] Monocyte % 7.7 % [facility] Monocyte Abs 0.6 0.3 - 0.9 x10(3)/[facility] Eos % 2.5 % [facility] Eosinophils Abs 0.2 0.0 - 0.4 x10(3)/[facility] Basophil % 0.9 % [facility] Baso Absolute 0.1 0.0 - 0.1 x10(3)/[facility] Immature Gran % 0.50 % [facility] Comment: Immature granulocytes(IG's)percentage and absolute count will include metamyelocytes, myelocytes, and promyelocytes. Blood smears from CBCs yielding IG's will be scanned manually for concordance. If this scan disagrees with the automated IG or if promyelocytes are noted, a manual differential will be performed. Immature Gran Absolute 0.04 0.00 - 0.04 x10(3)/[facility] Blood 12/29/2020 10:1 9 AM EDT 12/29/2020 10:43 AM EDT Narrative Resulting Agency Comment Spec In Lab Royce WALTON HEMATOLOGY ORDERABLE S [facility] [place] [address] * (ABNORMAL) Hemogram (12/29/2020 10:19 AM EDT) White Blood Cell 7.5 4.0 - 9.5 x10(3)/mc L [facility] Red Blood Cell 4.53(L) 4.58 - 5.54 x10(6)/mc L [facility] Hemoglobin 14.4 13.7 - 16.5 g/dL [facility] Hematocrit 42.6 40.5 - 48.5 % [facility] Mean Cell Volume 94.0(H) 82.9 - 93.1 fL [facility] Mean Cell Hemoglobin 31.8 27.5 - 32.1 pg [facility] Mean Cell Hemoglobin Concentration 33.8 32.0 - 35.7 g/dL [facility] Platelet 205 145 - 357 x10(3)/mc L [facility] RDW Standard Deviation 42.9 36.0 - 45.0 fL [facility] RDW coefficient of variation 12.4 11.4 - 13.8 % [facility] Mean Platelet Volume 10.0 7.6 - 12.9 fL [facility] NRBC% auto 0.0 % [facility] NRBC Absolute 0.000 0.000 - 0.000 x10(3)/mc L [facility] Blood 12/29/2020 10:1 9 AM EDT 12/29/2020 10:43 AM EDT Narrative Resulting Agency Comment Spec In Lab Royce WALTON HEMATOLOGY ORDERABLE S [facility] [place] [address] * (ABNORMAL) BMP w/fasting Glucose (12/29/2020 10:19 AM EDT) Glucose Fasting 252(H) 65 - 99 mg/dL [facility] Comment: ?Fasting* Glucose Interpretive Criteria [...] of Diabetes Mellitus, Position Statement from the [place] [employer]. ??Diabetes Care, Volume 33, Supplement 1, Mar 2009 Blood Urea Nitrogen 13 10 - 20 mg/dL [facility] Creatinine 1.09 0.80 - 1.50 mg/dL [facility] Sodium 138 135 - 145 mmol/L [facility] Potassium 4.2 3.5 - 5.0 mmol/L [facility] Comment: Please note: ??Patients with WBC >100,000 may have falsely elevated Potassium levels. ??For accurate Potassium quantification in these patients send serum separator tube (gold top) for subsequent determinations. ??Contact the Clinical Chemistry Laboratory if there are any questions. Chloride 101 98 - 107 mmol/L [facility] Carbon Dioxide 29 22 - 31 mmol/L [facility] Anion Gap 8 5 - 15 mmol/L [facility] Calcium 9.3 8.5 - 10.5 mg/dL [facility] Est Glomerular Filtration Rate 77 >=60 mL/min/1. 73 m?? [facility] Comment: This patient? s estimated [...] In Lab Snehal Dia MD CHEMISTRY ORDERABLES [facility] [place] [address] * EKG 12 Lead (12/29/2020 10:18 AM EDT) Ventricular rate 79 BPM MUSE SYSTEM Atrial Rate 79 BPM MUSE SYSTEM P-R Interval 168 ms MUSE SYSTEM QRS Duration 88 ms MUSE SYSTEM Q-T Interval 374 ms MUSE SYSTEM QTC Calculated (Bezet) 428 ms MUSE SYSTEM Calculated P [place] 60 degrees MUSE SYSTEM Calculated R [place] 56 degrees MUSE SYSTEM Calculated T [place] 39 degrees MUSE SYSTEM INTERPRETATION Normal sinus rhythm Normal ECG When compared with ECG of 07-AUG-2019 08:57, T wave inversion no longer evident in Inferior leads Confirmed by MD Bobbi, Derrick ([id number]) on 12/29/2020 2:14:13 PM MUSE SYSTEM 12/29/2020 10:1 8 AM EDT 12/29/2020 2:14 PM EDT Snehal Dia MD ECG ORDERABLES MUSE SYSTEM * (ABNORMAL) POCT Glucose (12/29/2020 9:50 AM EDT) Glucose, POC 262(H) 65 - 199 mg/dL [facility] Comment: Supplemental ranges: <140 mg/dL before meals <180 mg/dL all other times of the day Blood 12/29/2020 9:50 AM EDT 12/29/2020 9:50 AM EDT Snehal Dia MD POINT OF CARE TEST O RDERABLES Performing Organization Address City/[facility]/ZIP Co de Phone Number [facility] [place] [phone] documented in this encounter Visit Diagnoses Diagnosis Screening for cardiovascular condition Screening for other and unspecified cardiovascular conditions Coronary artery disease, unspecified vessel or lesion type, unspecified whether angina present, unspecified whether tangirnaq or transplanted heart Chest discomfort Other chest pain Screening for cardiovascular condition Screening for other and unspecified cardiovascular conditions Coronary artery disease, unspecified vessel or lesion type, unspecified whether angina present, unspecified whether tangirnaq or transplanted heart Chest discomfort Other chest [...] Until Mon12/29/20 at 1247, Cath (Intra-Procedure), Routine 1226 (Given - Provid er: Molly Escobar RN) iohexoL (Omnipaque) (350 mg/mL) injection solution (CANCELED) ONCE PRN, Starting on Mon12/29/20 at 1244, Until Mon12/29/20 at 1247, Cath (Intra-Procedure), Routine 1244 (Given - Provid er: Snehal Dia MD) [...] MD) documented in this encounter Care Teams Nut Culler Relationship Specialty Start Date End Date Robinson Vazquez, JOVANI [address] [place] [address] PCP - General Family Medicine 12/11/20 10/03/22 documented as of this encounter
--- OUTSIDE RECORDS SUMMARY | 2023-12-10 00:44 | XMS_ITS | Encounter Summary ---
Author Organization [facility] [place] [address] Care Team Providers Care Acrobatic Rigger Name Role Phone Robinson Vazquez APRN Primary Care Provider +1- [phone] Encounter Details Date Type Department Care Team (Latest Contact Info) Description 04/12/2021 9:00 AM EST TH Visit (TeleHealth) [place] [address] Janki Jean MD [facility] [address] Dyspepsia; Delayed gastric emptying; Gastroesophageal reflux disease [...] Jean MD - 04/12/2021 9:00 AM EST [facility] Section of Gastroenterology and Hepatology [...] peptic ulcers ?? EGDs in our system [phone] (multiple) - all with the appearance of [...] day, dinner, always been that way White [place] when relaxing, 1-2, could cause more pain [...] chest pain intermittently, going to see his environmental education specialist. Duration of ETOH/tobacco: Has cut down [...] Post-operative nausea and vomiting Had scope [place] [facility] and had vomiting after Past Surgical History: Procedure Laterality Date ??? CATARACT REMOVAL Right 2016 ??? CORONARY ANGIOPLASTY WITH STENT PLACEMENT 08/2017 ??? PRO UPPER GI ENDOSCOPY, BIOPSY 04/26/2011 EGD WITH BIOPSY performed by KIRSTEN DAMON at [facility] ENDOSCOPY ??? PRO UPPER GI ENDOSCOPY, BIOPSY N/A 09/27/2018 UPPER GASTROINTESTINAL ENDOSCOPY,WITH BIOPSY SINGLE OR MULTIPLE (WRVU 2.49) performed by Luc Hdz MD at [facility] ENDOSCOPY ??? PRO UPPER GI ENDOSCOPY, BIOPSY N/A 01/26/2021 EGD WITH BIOPSY (WRVU 2.49) performed by Nathaniel Azevedo MD at [facility] ENDOSCOPY Social History Socioeconomic History ??? [...] TWICE A DAY, Disp: , Rfl: ??? rlxvimtyyqc-enfmnnnbn-mgaflwxf 100-62.5-25 mcg Disk with Device, 1 puff [...] 6 months The patient was located in [place] at the time of their telemedicine visit. The risks, benefits and alternatives were discussed with the patient who understands and agrees with above. Janki Jean MD 04/11/21 Janki Jean MD Section of Gastroenterology and Hepatology [facility] [address] documented in this encounter Plan of Treatment Upcoming Encounters Date Type Department Care Team (Late st Contact Info) Description 01/10/2024 9:45 AM EDT Office Visit Neurosurgery at [address] [place] [phone] Rosanna Clement MD [address] [place], [place] [phone] Chau Blackburn PA 10 [place] [address] 03/20/2024 10:00 AM EST Office [place] [address] Tania Gates, [facility] [address] 12/23/2024 8:00 AM EDT Office [place] [address] Tania Gates, [facility] [place] [address] documented as of this encounter Visit Diagnoses Diagnosis Dyspepsia Dyspepsia and other specified disorders of function of stomach Delayed gastric emptying Dyspepsia and other specified disorders of function of stomach Gastroesophageal reflux disease without esophagitis Esophageal reflux 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 Diaz's esophagus Food intolerance Other specified intestinal malabsorption Loose stools Abnormal feces documented in this encounter Care Teams Acrobatic Rigger Relationship Specialty Start Date End Date Robinson Vazquez, JOVANI [address] [place] [address] PCP - General Family Medicine 12/11/20 10/03/22 documented as of this encounter
--- OUTSIDE RECORDS SUMMARY | 2023-12-10 00:44 | XMS_ITS | Encounter Summary ---
[place] [address] Care Team Providers Care Airline Radio Operator Name Role Phone Robinson Vazquez APRN Primary Care Provider +1- [phone] Reason for Visit * Reason Onset Date Comments Reminder Appointment 12/28/2020 Encounter Details Date Type Department Care Team (Late st Contact Info) Description 12/28/2020 Telephone [place] [phone] Gerda Orellana CCMA Reminder Appointment Social History [...] AM EDT Office Visit Neurosurgery at [facility] [address] [place] [address] Rosanna Clement MD [address] [place] [address] Chau Blackburn PA [address] [place] [address] 03/20/2024 10:00 AM EST Office [place] [phone] Tania Gates, [facility] [place] [address] 12/23/2024 8:00 AM EDT Office [place] [phone] Tania Gates, [facility] [place] [address] documented as of this encounter Visit Diagnoses Not on filedocumented in this encounter Care Teams Airline Radio Operator Relationship Specialty Start Date End Date Robinson Vazquez APRN [address] [place] [address] [address] [place] [address] PCP - General Family Medicine 12/11/20 10/03/22 documented as of this encounter
--- OUTSIDE RECORDS SUMMARY | 2023-12-10 00:44 | XMS_ITS | Encounter Summary ---
[place] [address] Care Team Providers Care Education General Manager Name Role Phone Robinson Vazquez APRN Primary Care Provider +1- [phone] Encounter Details Date Type Department Care Team (Late st Contact Info) Description 01/05/2021 Telephone [place] [phone] Ann Vázquez Social History Tobacco Use Types [...] 01/05/2021 4:53 PM EDT Samy Patricio Jr. [id number] Diagnosis/Indication: dyspepsia, hx of H pylori on [...] to patient: You must have a responsible alliance party who will drive you to your [...] Neurosurgery at [facility] [address] [place] [address] Rosanna Clement MD [address] [place] [address] Chau Blackburn PA [address] [facility] [place] [address] 03/20/2024 10:00 AM EST Office [place] [address] Tania Gates, [facility] [place] [address] 12/23/2024 8:00 AM EDT Office [place] [address] Tania Gates, [facility] [place] [address] documented as of this encounter Visit Diagnoses Not on filedocumented in this encounter Care Teams Education General Manager Relationship Specialty Start Date End Date Robinson Vazquez, JOVANI [address] [place] [address] PCP - General Family Medicine 12/11/20 10/03/22 documented as of this encounter
--- OUTSIDE RECORDS SUMMARY | 2023-12-10 00:44 | XMS_ITS | Encounter Summary ---
[place] [address] Care Team Providers Care Yarn Comber Name Role Phone Robinson Vazquez APRN Primary Care Provider +1- [phone] Reason for Referral * Diagnostic Test (Routine) - Closed Specialty Diagnoses / Procedures Referred By Keith t Referred To Contact Diagnoses Atherosclerosis of [place] artery of lower extremity, unspecified laterality, with unspecified presence of clinical manifestation Procedures DEONTE, legs, multiple levels Vinicius Cartagena APRN [facility] [place] [address] [facility] Vascular Lab [address] [place] [address] Referral ID Status Reason Start Date Expiration Date V isits Requested Visits Authorized [id number] Closed Specialty Service Requested 02/08/2022 02/08/2023 1 1 Encounter Details Date Type Department Care Team (Late st Contact Info) Description 02/08/2022 Orders Only [place] [address] Vinicius Cartagena APRN [facility] [place] [address] Atherosclerosis of [place] artery of lower extremity, unspecified laterality, with [...] Visit Neurosurgery at [facility] [address] [place] [phone] Rosanna Clement MD 10 [facility] [place] [address] Chau Blackburn PA 10 [facility] [place] [address] 03/20/2024 10:00 AM EST Office Visit Ophthalmology at [place] [phone] Tania Gates, [facility] [place] [address] 12/23/2024 8:00 AM EDT Office [place] [phone] Tania Gates, [facility] [place] [address] documented as of this encounter Results * DEONTE, legs, multiple levels (02/24/2022 9:03 AM EST) VB Text Report Department: Vascular Surgery Lab Patient: [id number] (SAMY PATRICIO) CPT: 23181 Referring Physician: VINICIUS CARTAGENA, ENAMEL PULVERIZER ?? Indications: PAD on CT at OSH [...] this encounter Visit Diagnoses Diagnosis Atherosclerosis of [place] artery of lower extremity, unspecified laterality, with unspecified presence of clinical manifestation documented in this encounter Care Teams Yarn Comber Relationship Specialty Start Date End Date Robinson Vazquez APRN [facility] [address] [place] [address] PCP - General Family Medicine 12/11/20 10/03/22 documented as of this encounter
--- OUTSIDE RECORDS SUMMARY | 2023-12-10 00:44 | XMS_ITS | Encounter Summary ---
[place] [address] Care Team Providers Care Caustic Plant Worker Name Role Phone Robinson Vazquez APRN Primary Care Provider +1- [phone] Encounter Details Date Type Department Care Team (Late st Contact Info) Description 10/29/2021 Telephone Cardiology at [address] [phone] Eileen Williamson, RN Social History Tobacco Use [...] an appointment in November with a new mexican food maker in [facility]. Recommend to her several times, that Mr Patricio, and she speakwith his new mexican food maker regarding any and all cardiac testing for a review, interpretation, and treatment plan, with his new mexican food maker, as no staff or nurses, can render such an interpretation. Eileen Williamson (Jodie), RN, BSN [facility] documented in this encounter Plan of Treatment Upcoming Encounters Date Type Department Care Team (Late st Contact Info) Description 01/10/2024 9:45 AM EDT Office Visit Neurosurgery at [facility] [address] [place] [address] Rosanna Clement MD 10 [facility] [place] [address] Chau Blackburn PA 10 [facility] [place] [address] 03/20/2024 10:00 AM EST Office [place] [address] Tania Gates, [facility] [place] [address] 12/23/2024 8:00 AM EDT Office [place] [address] Tania Gates, [facility] [place] [address] documented as of this encounter Visit Diagnoses Not on filedocumented in this encounter Care Teams Caustic Plant Worker Relationship Specialty Start Date End Date Robinson Vazquez APRN [address] [place] [address] [address] [place] [address] PCP - General Family Medicine 12/11/20 10/03/22 documented as of this encounter
--- OUTSIDE RECORDS SUMMARY | 2023-12-10 00:44 | XMS_ITS | Encounter Summary ---
[place] [address] Care Team Providers Care Egg Breaking Machine Operator Name Role Phone Sae Marr MD Primary Care Provider [phone] Reason for Visit * Reason Onset Date Comments Follow-up 09/06/2019 tobacco treatmen t Encounter Details Date Type Department Care Team (Late st Contact Info) Description 09/06/2019 Telephone [place] [phone] Bryn Guevara, RN Follow-up (tobacco treatment) Social [...] Thank you . Bryn Guevara, MSN, RN-, [facility] Tobacco Board Operator [facility] Pager #[phone] documented in this encounter Plan of Treatment Upcoming Encounters Date Type Department Care Team (Late st Contact Info) Description 01/10/2024 9:45 AM EDT Office Visit Neurosurgery at [facility] 10 [place] [address] Rosanna Clement MD 10 [facility] [place] [address] Chau Blackburn PA 10 [facility] [place] [address] 03/20/2024 10:00 AM EST Office Visit Ophthalmology at [place] [phone] Tania Gates, [facility] [place] [address] 12/23/2024 8:00 AM EDT Office [place] [address] Tania Gates, OD [facility] [place] [address] documented as of this encounter Visit Diagnoses Not on filedocumented in this encounter Care Teams Egg Breaking Machine Operator Relationship Specialty Start Date End Date Sae Marr MD PCP - General General Internal Medicine 08/06/19 9/ documented as of this encounter
--- OUTSIDE RECORDS SUMMARY | 2023-12-10 00:44 | XMS_ITS | Encounter Summary ---
Author Organization [facility] [place] [address] Care Team Providers Care Aviation Ordnance Officer Name Role Phone Robinson Vazquez APRN Primary Care Provider +1- [phone] Encounter Details Date Type Department Care Team [...] Visit Neurosurgery at [facility] [address] [phone] Rosanna Clement MD [address] [place] [address] Chau Blackburn PA [address] [place] [address] 03/20/2024 10:00 AM EST Office [place] [address] Tania Gates, [facility] [place] [address] 12/23/2024 8:00 AM EDT Office [place] [address] Tania Gates, [facility] [place] [address] documented as of this encounter Visit Diagnoses Not on filedocumented in this encounter Care Teams Aviation Ordnance Officer Relationship Specialty Start Date End Date Robinson Vazquez, JOVANI [address] [place] [address] PCP - General Family Medicine 12/11/20 10/03/22 documented as of this encounter
--- OUTSIDE RECORDS SUMMARY | 2023-12-10 00:44 | XMS_ITS | Encounter Summary ---
[place] [address] Care Team Providers Care Sling Operator Name Role Phone Robinson Vazquez APRN Primary Care Provider +1- [phone] Encounter Details Date Type Department Care Team (Late st Contact Info) Description 12/29/2020 10:00 AM EDT - 12/29/2020 11:00 AM EDT Surgery Chemical [place] [phone] Snehal Dia MD [facility] [place] [address] CARDIAC CATHETERIZATION Social History Tobacco Use Types [...] Your Primary Care Provider: Sae Marr MD [phone] For questions regarding this document or issues relating to this hospitalization on the Medical Service, please contact your inpatient physician through the [facility] Optical Dispenser . Issues afterhours and on weekends will [...] TEST BLOOD GLUCOSE TWICE A DAY 06/23/2020 tckauqajbuj-vcdmjblnj-j ilanter 100-62.5-25 mcg Disk with Device Inhale [...] date: 12/29/2020 Attending Physician: Snehal Dia MD [facility] Interventional Cardiology Adult Pre-Procedure H&P Update: Mr Samy Patricio [id number] 1965 Chief Complaint: Chest discomfort HPI: Samy Patricio Jr. is a 55 y.o. 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 tispudcehzk-wvinaxhuv-nebnyped 100-62.5-25 mcg Disk with Device 1 puff [...] ISABELLE Jackson Interventional Cardiology 12/29/20 10:12 AM [facility] Pager: [phone] documented in this encounter Miscellaneous Notes * Brief Op Note - Snehal Dia MD - 12/29/2020 12:52 PM EDT Preliminary Cardiac Catheterization Procedure Note: Patient Name: Samy Patricio Jr. : [id number] MR#: [id number] Case Date: 12/29/2020 Optical Dispenser: Surgeon(s) and Role: * Snehal Dia MD [...] 9:45 AM EDT Office Visit Neurosurgery at [facility] [address] [place] [address] Rosanna Clement MD 10 [facility] [place] [address] Chau Blackburn PA [facility] [place] [address] 03/20/2024 10:00 AM EST Office [place] [phone] Tania Gates OD [facility] [place] [address] 12/23/2024 8:00 AM EDT Office [place] [address] Tania Gates OD [facility] [place] [address] documented as of this encounter Procedures Procedure Name Priority Date/Time Associated Diagnosis Comments POCT GLUCOSE Routine 01/26/2021 7:22 AM EST CARDIAC CATHETERIZATION Routine 12/29/2020 12:50 PM EDT Screening for cardiovascular condition Coronary artery disease, unspecified vessel or lesion type, unspecified whether angina present, unspecified whether [place] or transplanted heart Chest discomfort POCT GLUCOSE [...] type, unspecified whether angina present, unspecified whether [place] or transplanted heart Chest discomfort POCT GLUCOSE Routine 12/29/2020 9:50 AM EDT documented in this encounter Results * POCT Glucose (01/26/2021 7:22 AM EST) Glucose, POC 143 65 - 199 mg/dL [facility] Comment: Supplemental ranges: <140 mg/dL before meals <180 mg/dL all other times of the day Blood 01/26/2021 7:22 AM EST 01/26/2021 7:22 AM EST Snehal Dia MD POINT OF CARE TEST O RDERABLES [facility] [place] [address] * CARDIAC CATHETERIZATION (12/29/2020 12:50 PM EDT) Anatomical Region Laterality Modality Other Narrative 12/29/2020 4:24 PM EDT ?[facility] ? Cardiac Catheterization/Intervention Report ? Patient Name: Samy Patricio Jr. S. ? Procedure Date: 12/29/2020 ? A #: [id number] ? Primary Physician: Snehal Dia ? Case #: [id number] ? File Name: [id number] ? Catheterization Order Number: [id number] ? [facility] ? Final Report [place], [place] ? Patient Name: ? Samy Oreilly. Sheng ?ID#: ?[id number] ? : ?1965 ? Procedure Date: ? December 29, 2020 ? Case #: ? [id number] ? Room: ? 1 ? Case Physician: ? Snehal Dia M.D. ? Start: ?12:24 ?Fellow: ? Yves Fernandez M.D. ?Admission: ??12/29/2020 ? Referring Physician: ??Eileen Kingston M.D. ? Procedures: ?* Coronary Angiography ?* Left Heart Catheterization ? History ?Samy Patricio is a 55 year old man. [...] was designated as ?ASA Class III. The [facility] clinical frailty scale is 4: Vulnerable. ? Diagnostic Tests: ?Electrocardiography: ? EKG was assessed by ECG. EKG was Abnormal. EKG showed ST Deviation ? >= 0.5 mm. ?Medications Prior to Procedure: ? Aspirin, Beta Alejandra, Long Acting Nitrate and Statin. ? Indications for Diagnostic Cath: ?The priority of the diagnostic procedure was Elective. 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 Chest pain symptom [...] Procedure Note Snehal Dia MD - 12/29/2020 [facility] Cardiac Catheterization/Intervention Report Patient Name: Samy Patricio Jr. Procedure Date: 12/29/2020 A #: [id number] Primary Physician: Snehal Dia Case #: [id number] File Name: [id number] Catheterization Order Number: [id number] [facility] FinalReport [place], [place] Patient Name: Samy Patricio ID#:[id number] :1965 Procedure Date: December 29, 2020 Case [...] patient wasdesignated as ASA Class III. The [facility] clinical frailty scale is 4: Vulnerable. Diagnostic Tests: Electrocardiography: EKG was assessed by ECG. EKG was Abnormal. EKG showed STDeviation >= 0.5 mm. Medications Prior to Procedure: Aspirin, Beta Alejandra, Long Acting Nitrate and Statin. Indications for Diagnostic Cath: The priority of the diagnostic procedure was Elective. Theindication for the laborer dairy farm visit is worsening angina. Chest pain symptomassessment [...] units of heparin were administered. A total [id number] of Omnipaque were opened, 75cc of Omnipaque were administered blv43fh of Omnipaque were wasted. Radiation: Fluoro time [...] * POCT Glucose (12/29/2020 12:32 PM EDT) [facility] Glucose, POC 152 65 - 199 mg/dL [facility] Comment: Supplemental ranges: <140 mg/dL before meals <180 mg/dL all other times of the day Blood 12/29/2020 12:3 2 PM EDT 12/29/2020 12:32 PM EDT Snehal Dia MD POINT OF CARE TEST O RDERABLES Performing Organization Address City/State/[facility] Co de Phone Number [facility] [place] [address] * Differential, Automated (12/29/2020 10:19 AM EDT) [facility] Neutrophil % 63.2 % [facility] Neutrophil Absolute 4.73 1.70 - 6.10 x10(3)/[facility] LABORATORY Lymph % 25.2 % [facility] Lymphocytes Abs 1.9 0.9 - 3.2 x10(3)/[facility] LABORATORY Monocyte % 7.7 % [facility] Monocyte Abs 0.6 0.3 - 0.9 x10(3)/[facility] LABORATORY Eos % 2.5 % [facility] Eosinophils Abs 0.2 0.0 - 0.4 x10(3)/[facility]ORATORY Basophil % 0.9 % [facility] Baso Absolute 0.1 0.0 - 0.1 x10(3)/[facility]ORATORY Immature Gran % 0.50 % [facility] Comment: Immature granulocytes(IG's)percentage and absolute count will include metamyelocytes, myelocytes, and promyelocytes. Blood smears from CBCs yielding IG's will be scanned manually for concordance. If this scan disagrees with the automated IG or if promyelocytes are noted, a manual differential will be performed. Immature Gran Absolute 0.04 0.00 - 0.04 x10(3)/[facility]AT[facility] Blood 12/29/2020 10:1 9 AM EDT 12/29/2020 10:43 AM EDT Narrative Resulting Agency Comment Spec In Lab Royce [facility] HEMATOLOGY ORDERABLE S [facility] [place] [address] * (ABNORMAL) Hemogram (12/29/2020 10:19 AM EDT) White Blood Cell 7.5 4.0 - 9.5 x10(3)/ L [facility] Red Blood Cell 4.53(L) 4.58 - 5.54 x10(6)/ L [facility] Hemoglobin 14.4 13.7 - 16.5 g/dL [facility] Hematocrit 42.6 40.5 - 48.5 % [facility] Mean Cell Volume 94.0(H) 82.9 - 93.1 fL [facility] Mean Cell Hemoglobin 31.8 27.5 - 32.1 pg [facility] Mean Cell Hemoglobin Concentration 33.8 32.0 - 35.7 g/dL [facility] Platelet 205 145 - 357 x10(3)/mc L [facility] RDW Standard Deviation 42.9 36.0 - 45.0 [facility]ATORY RDW coefficient of variation 12.4 11.4 - 13.8 % [facility] Mean Platelet Volume 10.0 7.6 - 12.9 fL [facility] NRBC% auto 0.0 % [facility] NRBC Absolute 0.000 0.000 - 0.000 x10(3)/mc L [facility] Blood 12/29/2020 10:1 9 AM EDT 12/29/2020 10:43 AM EDT Narrative Resulting Agency Comment Spec In Lab Royce WALTON HEMATOLOGY ORDERABLE S [facility] [place] [address] * (ABNORMAL) BMP w/fasting Glucose (12/29/2020 10:19 AM EDT) Glucose Fasting 252(H) 65 - 99 mg/dL [facility] Comment: ?Fasting* Glucose Interpretive [...] of Diabetes Mellitus, Position Statement from the [place] [employer]. ??Diabetes Care, Volume 33, Supplement 1, Mar 2009 Blood Urea Nitrogen 13 10 - 20 mg/dL [facility] Creatinine 1.09 0.80 - 1.50 mg/dL [facility] Sodium 138 135 - 145 mmol/L [facility] Potassium 4.2 3.5 - 5.0 mmol/L [facility] Comment: Please note: ??Patients with WBC >100,000 may have falsely elevated Potassium levels. ??For accurate Potassium quantification in these patients send serum separator tube (gold top) for subsequent determinations. ??Contact the Clinical Chemistry Laboratory if there are any questions. Chloride 101 98 - 107 mmol/L [facility] Carbon Dioxide 29 22 - 31 mmol/L [facility] Anion Gap 8 5 - 15 mmol/L [facility] Calcium 9.3 8.5 - 10.5 mg/dL [facility] Est Glomerular Filtration Rate 77 >=60 mL/min/1. 73 m?? [facility] Comment: This patient? s [...] In Lab Snehal Dia MD CHEMISTRY ORDERABLES [facility] [place] [address] * EKG 12 Lead (12/29/2020 10:18 AM EDT) Ventricular rate 79 BPM MUSE SYSTEM Atrial Rate 79 BPM MUSE SYSTEM P-R Interval 168 ms MUSE SYSTEM QRS Duration 88 ms MUSE SYSTEM Q-T Interval 374 ms MUSE SYSTEM QTC Calculated (Bezet) 428 ms MUSE SYSTEM Calculated P Early Branch 60 degrees MUSE SYSTEM Calculated R Early Branch 56 degrees MUSE SYSTEM Calculated T Early Branch 39 degrees MUSE SYSTEM INTERPRETATION Normal sinus [...] Glucose, POC 262(H) 65 - 199 mg/dL [facility] Comment: Supplemental ranges: <140 mg/dL before meals <180 mg/dL all other times of the day Blood 12/29/2020 9:50 AM EDT 12/29/2020 9:50 AM EDT Snehal Dia MD POINT OF CARE TEST O RDERABLES [facility] [place] [address] documented in this encounter Visit Diagnoses Diagnosis Screening for cardiovascular condition Screening for other and unspecified cardiovascular conditions Coronary artery disease, unspecified vessel or lesion type, unspecified whether angina present, unspecified whether [place] or transplanted heart Chest discomfort Other chest pain Screening for cardiovascular condition Screening for other and unspecified cardiovascular conditions Coronary artery disease, unspecified vessel or lesion type, unspecified whether angina present, unspecified whether [place] or transplanted heart Chest discomfort Other chest [...] MD) documented in this encounter Care Teams Sling Operator Relationship Specialty Start Date End Date Robinson Vazquez, LIVE AMMUNITION INSPECTOR [address] [place] [address] PCP - General Family Medicine 12/11/20 10/03/22 documented as of this encounter
--- OUTSIDE RECORDS SUMMARY | 2023-12-10 00:44 | XMS_ITS | Encounter Summary ---
Author Organization [facility] [place] [address] Care Team Providers Care Auditing Control Clerk Name Role Phone Robinson Vazquez APRN Primary Care Provider +1- [phone] Encounter Details Date Type Department Care Team (Latest Contact Info) Description 12/29/2020 3:07 PM EDT - 12/29/2020 11:59 PM EDT Hospital Encounter XRay at [address] [place] [address] Janki Jean MD [facility] [place] [address] Abdominal bloating Discharge Disposition: Home Social History [...] TEST BLOOD GLUCOSE TWICE A DAY 06/23/2020 cunxywifrls-qcliwshya-d ilanter 100-62.5-25 mcg Disk with Device Inhale [...] 9:45 AM EDT Office Visit Neurosurgery at [facility] [address] [place] [address] Rosanna Clement MD [address] [place] [address] Chau Blackburn PA [address] [address] 03/20/2024 10:00 AM EST Office [place] [address] Tania Gates, [facility] [place] [address] 12/23/2024 8:00 AM EDT Office Visit [place] [address] Tania Gates, [facility] [place] [address] documented as of this encounter Procedures Procedure [...] who have questions please contact the health summer child caregiver that requested your imaging first. ? Procedure [...] patients who have questions please contactthe health summer child caregiver that requested your imaging first. Janki Jean MD IMG DX ORDERABLES documented in this encounter Visit Diagnoses Diagnosis Abdominal bloating Flatulence, eructation, and gas pain documented in this encounter Care Teams Auditing Control Clerk Relationship Specialty Start Date End Date Robinson Vazquez, WELDER SHIELDED METAL ARC [address] [place] [address] PCP - General Family Medicine 12/11/20 10/03/22 documented as of this encounter
--- OUTSIDE RECORDS SUMMARY | 2023-12-10 00:44 | XMS_ITS | Encounter Summary ---
[place] [address] Care Team Providers Care Colorist Photography Name Role Phone Robinson Vazquez APRN Primary Care Provider +1- [phone] Encounter Details Date Type Department Care Team (Latest Contact Info) Description 01/26/2021 6:12 AM EST - 01/26/2021 9:03 AM EST Hospital En[place] [address] Nathaniel Azevedo MD [facility] [place] [address] Discharge Disposition: Home Social History Tobacco Use [...] the day after the procedure, use an ssdy-hfh-uvxcfit spray to numb your throat. Sucking on [...] occurs, please contact your Doctor. Please call [phone] before 8pm Mon-Fri with problems, questions or concerns. If you call after 8pm or on weekends, call the Hospital at [phone] and ask to speak to the Car Servicer application coordinator and the dredge operator will contact that person for you. When should you call for help? Call [phone] anytime you think you may need emergency [...] any problems. Where can you learn more? [facility] View your After Visit Summary and more online at [email or web address] If you would like to provide feedback [...] cost to you. Content Version: 12.2 ?? 2302-0476 [employer]. Care instructions adapted under license by [facility]. If you have questions about a medical condition or this instruction, always ask your healthcare professional. [employer] disclaims any warranty or liability for your use of this information. documented in this encounter Medications at Time of Discharge Medication Sig Dispensed Refills Start Date End Date acetaminophen (Tylenol) 325 mg tablet every 6 hours as needed. 06/27/2019 OneTouch Verio test strips Strip TEST BLOOD GLUCOSE TWICE A DAY 06/23/2020 OneTouch Verio Flex meter Misc TEST BLOOD GLUCOSE TWICE A DAY 06/23/2020 dxpyoktcabj-nxyunloio-b ilanter 100-62.5-25 mcg Disk with Device Inhale [...] this encounter H&P Notes * Luc Wheeler, ROBOT OPERATOR - 01/26/2021 6:58 AM EST Patient Name: [...] Wheeler APRN Section of Gastroenter[place] [address] documented in this encounter Plan of Treatment Upcoming Encounters Date Type Department Care Team (Late st Contact Info) Description 01/10/2024 9:45 AM EDT Office Visit Neurosurgery at [facility] 10 [place] [address] Rosanna Clement MD 10 [facility] [place] [address] Chau Blackburn PA 10 [facility] [place] [address] 03/20/2024 10:00 AM EST Office [place] [address] Tania Gates, [facility] [place] [address] 12/23/2024 8:00 AM EDT Office [place] [address] Tania Gates, [facility] [place] [address] documented as of this encounter Procedures Procedure Name Priority Date/Time Associated Diagnosis Comments SURGICAL PATHOLOGY REPORT Routine 01/26/2021 8:06 AM EST SPECIMEN TO PATHOLOGY Routine 01/26/2021 8:06 AM EST SPECIMEN TO PATHOLOGY Routine 01/26/2021 8:06 AM EST SPECIMEN TO PATHOLOGY Routine 01/26/2021 8:06 AM EST Upper Gi Endoscopy, Biopsy ([id number]) 01/26/2021 7:38 AM EST Dyspepsia UPPER GI ENDOSCOPY Routine 01/26/2021 7: 01 AM EST documented in this encounter Results * Surgical Pathology Report (01/26/2021 8:06 AM EST) Final Diagnosis [id number] ? Location: ; 07; A The signing pathologist has (i) examined [...] Verified: ??02/04/2021 0:22 ?? Pathologist Performed at: ??-[facility] Dept. of Pathology, [place], [place] SPECIMEN(S) SUBMITTED A - Gastric, biopsy [...] labeled C1. ??pps 02/04/2021 12:22 AM EST [facility] GI Biopsy 01/26/2021 8:06 AM EST 01/26/2021 8:06 AM EST GI Biopsy 01/26/2021 8:06 AM EST 01/26/2021 8:06 AM EST GI Biopsy 01/26/2021 8:06 AM EST 01/26/2021 8:06 AM EST Nathaniel Azevedo MD PATHOLOGY/CYTOLOGY O SAEID [facility] [place] [address] * Specimen to Pathology (01/26/2021 8:06 AM EST) AP Specimen 01/26/2021 8:06 AM EST 01/26/2021 8:06 AM EST Narrative [facility] - 01/26/2021 8:06 AM EST Specimen requisition ordered. ??Separate Pathology report to follow Nathaniel Azevedo MD PATHOLOGY/[place] [address] * Specimen to Pathology (01/26/2021 8:06 AM EST) AP Specimen 01/26/2021 8:06 AM EST 01/26/2021 8:06 AM EST Narrative [facility] - 01/26/2021 8:06 AM EST Specimen requisition ordered. ??Separate Pathology report to follow Nathaniel Azevedo MD PATHOLOGY/CYTOLOGY O SAEID Performing Organization Address [facility] [place] [address] * Specimen to Pathology (01/26/2021 8:06 AM EST) AP Specimen 01/26/2021 8:06 AM EST 01/26/2021 8:06 AM EST Narrative [facility] - 01/26/2021 8:06 AM EST Specimen requisition ordered. ??Separate Pathology report to follow Nathaniel Azevedo MD PATHOLOGY/CYTOLOGY O SAEID Performing Organization Address [facility] [place] [address] * UPPER GI ENDOSCOPY (01/26/2021 7:01 AM EST) UPPER GI ENDOSCOPY [facility] Endoscopy Procedure Date: 01/26/2021 7:01 AM ? Patient Name: Samy Patricio ? N: [id number] ? Date of : 1965 ? Age: 55 ? Order #: [id number] ? Instrument Name: [id number] ? Procedure: ? Upper GI endoscopy Indications: ? Dyspepsia Patient Profile: ? 55 yo M presents for EGD, referred by ? Dr. Jean with dyspepsia, history of ? H. pylori Providers: ? Clarissa Bello, ? Brake Lining Maker, Zuleyka Sheppard Referring : ?Janki Barnard, ? MD Medicines: ? Monitored Anesthesia Care [...] physician, the nurse, the ? anesthesiologist, the computational biologist and ? the communications field technician in the pre-procedure ? area in [...] applicable - See Anesthesia documentation Impression: ?- [place]ike-colored mucosa suspicious ? for short-segment Diaz's ? [...] CRNA) documented in this encounter Care Teams Colorist Photography Relationship Specialty Start Date End Date Robinson Vazquez APRN [address] [place] [address] [address] PCP - General Family Medicine 12/11/20 10/03/22 documented as of this encounter
--- OUTSIDE RECORDS SUMMARY | 2023-12-10 00:44 | XMS_ITS | Encounter Summary ---
Author Organization [facility] [place] [address] Care Team Providers Care Ortho Rn Name Role Phone Robinson Vazquez APRN Primary Care Provider +1- [phone] Encounter Details Date Type Department Care Team (Late st Contact Info) Description 01/14/2022 Ancillary Procedure Radiology Library at [facility] [place] [address] Robinson Vazquez APRN [address] [place], [place] [id number] Social History Tobacco Use Types Packs/Day Years [...] AM EDT Office Visit Neurosurgery at [address] [place] [address] Rosanna Clement MD [address] [place] [address] Chau Blackburn PA [address] [place] [address] 03/20/2024 10:00 AM EST Office [place] [address] Tania Gates, OD [facility] [place] [address] 12/23/2024 8:00 AM EDT Office [place] [address] Tania Gates, OD [facility] [place] [address] documented as of this encounter Procedures Procedure Name Priority Date/Time Associated Diagnosis Comments FILM LIBRARY STORAGE ONLY ULTRASOUND STUDY Routine 01/14/2022 12:00 AM EDT documented in this encounter Results * Film Library- Storage Only Ultrasound Study (01/14/2022 12:00 AM EDT) Narrative [facility] - 02/04/2022 4:34 PM EST This exam is auto-finalizing. It's purpose is for storage only. Robinson Vazquez APRN IMG FILM LIBRARY O RDERABLES [place], [place] documented in this encounter Visit Diagnoses Not on filedocumented in this encounter Care Teams Ortho Rn Relationship Specialty Start Date End Date Robinson Vazquez APRN [address] [place] [address] [address] [place] [address] PCP - General Family Medicine 12/11/20 10/03/22 documented as of this encounter
--- OUTSIDE RECORDS SUMMARY | 2023-12-10 00:44 | XMS_ITS | Encounter Summary ---
Author Organization [facility] [place] [address] Care Team Providers Care Network Cable Installer Name Role Phone Robinson Vazquez APRN Primary Care Provider +1- [phone] Encounter Details Date Type Department Care Team (Late st Contact Info) Description 03/30/2021 9:00 AM EST Office Visit Dermatology at [place] [address] [place] [address] Amada Ferguson MD [facility] [place] [address] SK (seborrheic keratosis) Social History Tobacco Use [...] and signed by: Amada Ferguson MD Dermatology [facility] * Zo Esqueda MD - 03/30/2021 9:00 [...] AM EDT Office Visit Neurosurgery at [address] [place] [address] [place]anna [place] [address] Chau [place] [address] 03/20/2024 10:00 AM EST Office [place] [address] Tania Gates [facility] [place] [address] 12/23/2024 8:00 AM EDT [place] [address] Tania Gates OD [facility] [place] [address] documented as of this encounter Visit Diagnoses Diagnosis SK (seborrheic keratosis) Other seborrheic keratosis documented in this encounter Care Teams Network Cable Installer Relationship Specialty Start Date End Date Robinson Vazquez, BUILDING INSPECTOR [address] [place] [address] PCP - General Family Medicine 12/11/20 10/03/22 documented as of this encounter
--- OUTSIDE RECORDS SUMMARY | 2023-12-10 00:44 | XMS_ITS | Encounter Summary ---
Author Organization [facility] [place] [address] Care Team Providers Care Crisis Therapist Name Role Phone Robinson Vazquez APRN Primary Care Provider +1- [phone] Encounter Details Date Type Department Care Team (Late st Contact Info) Description 02/02/2022 Ancillary Procedure Radiology Library at [facility] [place] [address] Robinson Vazquez APRN [address] [place], [place] [id number] Social History Tobacco Use Types Packs/Day Years [...] Office Visit Neurosurgery at [address] [place] [address] Rosanna Clement MD [address] [place] [address] Chau Blackburn PA [address] [place] [address] 03/20/2024 10:00 AM EST Office [place] [address] Tania Gates, OD [facility] [place] [address] 12/23/2024 8:00 AM EDT Office [place] [address] Tania Gates, OD [facility] [place] [address] documented as of this encounter Procedures Procedure Name Priority Date/Time Associated Diagnosis Comments FILM LIBRARY STORAGE ONLY CT ABDOMEN Routine 02/02/2022 12:00 AM EST documented in this encounter Results * Film Library- Storage Only CT Abdomen (02/02/2022 12:00 AM EST) Narrative [facility] - 02/04/2022 4:32 PM EST This exam is auto-finalizing. It's purpose is for storage only. Robinson Vazquez APRN IMG FILM LIBRARY O RDERABLES [place], [place] documented in this encounter Visit Diagnoses Not on filedocumented in this encounter Care Teams Crisis Therapist Relationship Specialty Start Date End Date Robinson Vazquez APRN [address] [place] [address] [address] [place] [address] PCP - General Family Medicine 12/11/20 10/03/22 documented as of this encounter
--- OUTSIDE RECORDS SUMMARY | 2023-12-10 00:44 | XMS_ITS | Encounter Summary ---
[place] [address] Care Team Providers Care Fitness Consultant Name Role Phone Robinson Vazquez APRN Primary Care Provider +1- [phone] Encounter Details Date Type Department Care Team (Late st Contact Info) Description 01/26/2021 7:30 AM EST - 01/26/2021 8:15 AM EST Surgery [place] [address] Nathaniel Azevedo MD [facility] [place] [address] EGD WITH BIOPSY (WRVU 2.39) Social History [...] the day after the procedure, use an ersq-hgl-rtmxfdm spray to numb your throat. Sucking on [...] occurs, please contact your Doctor. Please call [phone] before 8pm Mon-Fri with problems, questions or concerns. If you call after 8pm or on weekends, call the Hospital at [phone] and ask to speak to the Wire Dropper oracle financial application developer and the trenching machine operator will contact that person for you. When should you call for help? Call [phone] anytime you think you may need emergency [...] any problems. Where can you learn more? [facility] View your After Visit Summary and more online at [email or web address] If you would like to provide [...] cost to you. Content Version: 12.2 ?? [id number] [employer]. Care instructions adapted under license by [facility]. If you have questions about a medical condition or this instruction, always ask your healthcare professional. [employer] disclaims any warranty or liability for your use of this information. documented in this encounter Medications at Time of Discharge Medication Sig Dispensed Refills Start Date End Date acetaminophen (Tylenol) 325 mg tablet every 6 hours as needed. 06/27/2019 OneTouch Verio test strips Strip TEST BLOOD GLUCOSE TWICE A DAY 06/23/2020 OneTouch Verio Flex meter Misc TEST BLOOD GLUCOSE TWICE A DAY 06/23/2020 wvznscfgdjw-asgiabfpm-a ilanter 100-62.5-25 mcg Disk with Device Inhale [...] this encounter H&P Notes * Luc Wheeler, COMBAT SYSTEMS OPERATOR - 01/26/2021 6:58 AM EST Patient [...] Wheeler APRN Section of Gastroenterology [place] [address] documented in this encounter Plan of Treatment Upcoming Encounters Date Type Department Care Team (Late st Contact Info) Description 01/10/2024 9:45 AM EDT Office Visit Neurosurgery at [facility] 10 [place] [address] Rosanna Clement MD 10 [facility] [place] [address] Chau Blackburn PA 10 [facility] [place] [address] 03/20/2024 10:00 AM EST Office Visit Ophthalmology at [place] [phone] Tania Gates, [facility] [place] [address] 12/23/2024 8:00 AM EDT Office Visit Ophthalmology at [place] [phone] Tania Gates, [facility] [place] [address] documented as of this encounter Procedures Procedure Name Priority Date/Time Associated Diagnosis Comments SURGICAL PATHOLOGY REPORT Routine 01/26/2021 8:06 AM EST SPECIMEN TO PATHOLOGY Routine 01/26/2021 8:06 AM EST SPECIMEN TO PATHOLOGY Routine 01/26/2021 8:06 AM EST SPECIMEN TO PATHOLOGY Routine 01/26/2021 8:06 AM EST Upper Gi Endoscopy, Biopsy ([id number]) 01/26/2021 7:38 AM EST Dyspepsia UPPER GI ENDOSCOPY Routine 01/26/2021 7: 01 AM EST documented in this encounter Results * Surgical Pathology Report (01/26/2021 8:06 AM EST) Final Diagnosis [id number] ? Location: 4T; EA07; A The signing [...] Verified: ??02/04/2021 0:22 ?? Pathologist Performed at: ??-[facility] Dept. of Pathology, [place], [place] SPECIMEN(S) SUBMITTED A - Gastric, biopsy [...] labeled C1. ??pps 02/04/2021 12:22 AM EST [facility] GI Biopsy 01/26/2021 8:06 AM EST 01/26/2021 8:06 AM EST GI Biopsy 01/26/2021 8:06 AM EST 01/26/2021 8:06 AM EST GI Biopsy 01/26/2021 8:06 AM EST 01/26/2021 8:06 AM EST Nathaniel Azevedo MD PATHOLOGY/CYTOLOGY O SAEID [facility] [place] [address] * Specimen to Pathology (01/26/2021 8:06 AM EST) AP Specimen 01/26/2021 8:06 AM EST 01/26/2021 8:06 AM EST Narrative [facility] - 01/26/2021 8:06 AM EST Specimen requisition ordered. ??Separate Pathology report to follow Nathaniel Azevedo MD PATHOLOGY/[place] [address] * Specimen to Pathology (01/26/2021 8:06 AM EST) AP Specimen 01/26/2021 8:06 AM EST 01/26/2021 8:06 AM EST Narrative [facility] - 01/26/2021 8:06 AM EST Specimen requisition ordered. ??Separate Pathology report to follow Nathaniel Azevedo MD PATHOLOGY/CYTOLOGY O SAEID Performing Organization Address [facility] [place] [address] * Specimen to Pathology (01/26/2021 8:06 AM EST) AP Specimen 01/26/2021 8:06 AM EST 01/26/2021 8:06 AM EST Narrative [facility] - 01/26/2021 8:06 AM EST Specimen requisition ordered. ??Separate Pathology report to follow Nathaniel Azevedo MD PATHOLOGY/CYTOLOGY O SAEID Performing Organization Address [facility]/[place] [address] * UPPER GI ENDOSCOPY (01/26/2021 7:01 AM EST) UPPER GI ENDOSCOPY [facility] Endoscopy Procedure Date: 01/26/2021 7:01 AM ? Patient Name: Samy Patricio ? Date of : 1965 ? Age: 55 ? Order #: [id number] ? Instrument Name: [id number] ? Procedure: ? Upper GI endoscopy Indications: ? Dyspepsia Patient Profile: ? 55 yo M presents for EGD, referred by ? Dr. Jean with dyspepsia, history of ? H. pylori Providers: ? Clarissa Bello, ? Box Fabricator, Zuleyka Sheppard Referring : ?Janki Barnard, ? [...] physician, the nurse, the ? anesthesiologist, the poly packer and heat sealer and ? the material handling technician in the pre-procedure ? area in [...] applicable - See Anesthesia documentation Impression: ?- [place]-colored mucosa suspicious ? for short-segment Diaz's ? [...] CRNA) documented in this encounter Care Teams Fitness Consultant Relationship Specialty Start Date End Date Robinson Vazquez APRN [address] [place] [address] PCP - General Family Medicine 12/11/20 10/03/22 documented as of this encounter
--- OUTSIDE RECORDS SUMMARY | 2023-12-10 00:44 | XMS_ITS | Encounter Summary ---
[place] [address] Care Team Providers Care Faculty Research Assistant Name Role Phone Sae Marr MD Primary Care Provider [phone] Reason for Visit * Reason Onset Date Comments Follow-up 01/15/2020 Tobacco Treatmen t Encounter Details Date Type Department Care Team (Late st Contact Info) Description 01/15/2020 Telephone [place] [phone] Bryn Guevara, RN Follow-up (Tobacco Treatment) Social [...] in July 2020. Bryn Guevara, MSN, RN-, [facility] Tobacco Executive Director Sheltered Workshop [facility] Pager #[phone] documented in this encounter Plan of Treatment Upcoming Encounters Date Type Department Care Team (Late st Contact Info) Description 01/10/2024 9:45 AM EDT Office Visit Neurosurgery at [facility] 10 [place] [phone] Rosanna Clement MD 10 [facility] [place] [address] Chau Blackburn PA 10 [facility] [place] [address] 03/20/2024 10:00 AM EST Office [place] [address] Tania Gates, [facility] [place] [address] 12/23/2024 8:00 AM EDT Office [place] [address] Tania Gates, OD [facility] [place] [address] documented as of this encounter Visit Diagnoses Not on filedocumented in this encounter Care Teams Faculty Research Assistant Relationship Specialty Start Date End Date Sae Marr MD PCP - General General Internal Medicine 08/06/19 9/ documented as of this encounter
--- OUTSIDE RECORDS SUMMARY | 2023-12-10 00:45 | XMS_ITS | Encounter Summary ---
[place] [address] Care Team Providers Care Mixing House Operator Name Role Phone Sae Marr MD Primary Care Provider [phone] Encounter Details Date Type Department Care Team (Late st Contact Info) Description 08/06/2019 External Results [place] [address] Social History Tobacco Use Types Packs/Day Years [...] EDT Office Visit Neurosurgery at [address] [address] Rosanna Clement MD [address] [place] [address] Chau Blackburn PA [address] [place] [place] [address] 03/20/2024 10:00 AM EST Office [place] [address] Tania Gates, [facility] [place] [address] 12/23/2024 8:00 AM EDT Office [place] [address] Tania Gates, OD [facility] [place] [address] documented as of this encounter Procedures Procedure Name Priority Date/Time Associated Diagnosis Comments ECG SCAN Routine 08/06/2019 documented in this encounter Results * Scan Doc: ECG (08/06/2019) Historical Provider MD KUMAR MGR SCAN EX T ORDR/RSLT documented in this encounter Visit Diagnoses Not on filedocumented in this encounter Care Teams Mixing House Operator Relationship Specialty Start Date End Date Sae Marr MD PCP - General General Internal Medicine 08/06/19 9/3 documented as of this encounter
--- OUTSIDE RECORDS SUMMARY | 2023-12-10 00:45 | XMS_ITS | Encounter Summary ---
[place] [address] Care Team Providers Care [employer]er Name Role Phone Sae Marr MD Primary Care Provider [phone] Encounter Details Date Type Department Care Team (Late st Contact Info) Description 08/06/2019 [place] [address] Pramod Arana MD [facility] [address] Social History Tobacco Use Types Packs/Day Years [...] Referring Provider: Dallas Gutierrez MD Patient Location: [facility] Presenting Symptoms per OSH: 53 year old man with a history of CAD, tobacco use, DM2, HLD on atorvastatin presenting to [facility] with inferior STEMI. Had a [...] send out STEMI alert page followed by lab aid alert page when he leaves [facility] and bring him to our ED first before the lab aid I reconnected with [facility] after the patient was given [...] be coming to our ED first before lab aid. Will send out STEMI alert & lab aid alert when he leaves [facility] (discussed with Dr. Merino). : [phone] Above recommendations/plans are based on my conversation with the referring provider. I have not personally interviewed or examined this patient. documented in this encounter Plan of Treatment Upcoming Encounters Date Type Department Care Team (Late st Contact Info) Description 01/10/2024 9:45 AM EDT Office Visit Neurosurgery at [facility] [address] [place] [address] [place] [address] [place] [address] 03/20/2024 10:00 AM EST Office [place] [address] Tania Gates, [facility] [place] [address] 12/23/2024 8:00 AM EDT Office [place] [address] Tania Gates, [facility] [place] [address] documented as of this encounter Visit Diagnoses Not on filedocumented in this encounter Care Teams [employer] Relationship Specialty Start Date End Date Sae Marr MD PCP - General General Internal Medicine 08/06/19 9/ documented as of this encounter
--- OUTSIDE RECORDS SUMMARY | 2023-12-10 00:45 | XMS_ITS | Encounter Summary ---
[place] [address] Care Team Providers Care Ware Finisher Name Role Phone Sae Marr MD Primary Care Provider [phone] Reason for Visit * Reason Comments Hospital Transfer Chest Pain * Auth/Cert Specialty Diagnoses / Procedures Referred By Contac t Referred To Contact Diagnoses STEMI (ST elevation myocardial infarction) ST elevation myocardial infarction (STEMI), unspecified artery STEMI Referral ID Status Reason Start Date Expiration Date Visits Re quested Visits Authorized [id number] 1 1 Encounter Details Date Type Department Care Team (Late st Contact Info) Description 08/06/2019 2:45 AM EDT - 08/06/2019 4:26 AM EDT Surgery Barrel [place] [phone] Jung Merino MD [facility] [place] [address] CARDIAC CATHETERIZATION Social History Tobacco Use Types [...] CARE - SAE MARR MD, August - [[phone]] - Please follow up with patient regarding his recent hospitalization for Inferior STEMI, s/p EDEN toRCA. - Please assess when appropriate to initiate Lisinopril; recommend BMP in the next 5-7 days to ensure that renal function is stable. - Please continue to counseling program leader regarding smoking cessation; he has been discharged [...] a NicotinePatch. - LVEDP was 21 on [facility] - please assess need for [...] compared to ticagrelor or plavix, reducing stroke, PR and (NEJM 2019). ?? Give plavix 75 [...] prompted his to call 911. Per the forming machine operator's instructionshe took SLN x3, but did not experience any relief of symptoms. ?? EMS arrived and noted his heart rate to be in the 30s with blood pressures 60s/30s. He was transcutaneously paced en route to [facility]. EKG at [facility] showed STEs in the inferior leads [...] ?? He was transferred to the [facility] ED for evaluation. On arrival to [facility] he had continued chest pain, but his EKG changes had resolved. He was on 1.5 of epi with heart rates in the 80s and blood pressures in the 110s/50s. He was taken immediately to the garden labourer where he had a EDEN placed to his proximal RCA. He was weaned off of epinephrine in the garden labourer and transferred to the CSCU. ?? In [...] AND TEST, RAMIRO; TECHRAMIRO Ophthalmology at [facility] Arrive at: Supervisor Pressing Department Area [phone] Future Orders Complete By Expires Referral to Cardiac Rehab [[id number] Custom] As directed Process Instructions: If no progress note charted, please enter Clinical details in comments. Scheduling Instructions: Questions: My question or request is: STEMI. Cardiac rehab at [facility]. Referral to Cardiology [[id number] Custom] As [...] appointments: During 8am-5pm Monday through Monday call [phone] to speak with a nurse in the cardiology clinic All other times call [phone] and ask to speak to the township clerk wafer fabrication operator. Activity level: - No heavy lifting (more [...] 02/11/2020 8:40 AM Tania Gates OD [facility] OPHT 4B [facility] Follow-Up Appointments Date and Time Provider and Specialty Location August 18 8:40am [facility] September 04 YULIYA GTZ MD [place], [place] Clinic Mgr: Yuliya Gtz MD at [phone] PCP: Sae Marr MD at [phone] Your Primary Care Provider: Sae Marr MD [address] [place] [id number] For questions regarding issues relating to your hospitalization on the Hospital Medicine Service, please contact your inpatient physician through the [facility] Cable Tester [phone]. Issues after hours and on weekends will be handled by the Hospitalist staff on-call. For questions regarding this document or issues relating to this hospitalization on the Medical Service, please contact your inpatient physician through the [facility] Cable Tester . Issues afterhours and on weekends will be handled by the Clinic Mgr staff on-call. documented in this encounter Discharge [...] appointments: During 8am-5pm Monday through Monday call [phone] to speak with a nurse in the cardiology clinic All other times call [phone] and ask to speak to the township clerk wafer fabrication operator. Activity level: - No heavy lifting (more [...] 02/11/2020 8:40 AM Tania Gates, OD [facility] OPHT 4B [facility] Follow-Up Appointments Date and Time Provider and Specialty Location August 18 8:40am [facility] September 04 YULIYA GTZ MD [place], [place] Clinic Mgr: Yuliya Gtz MD at [phone] PCP: Sae Marr MD at [phone] Your Primary Care Provider: Sae Marr MD [address] [place] [address] For questions regarding issues relating to your hospitalization on the Hospital Medicine Service, please contact your inpatient physician through the [facility] Cable Tester [phone]. Issues after hours and on weekends will be handled by the Hospitalist staff on-call. * Attachments The following attachments cannot be sent through Care Everywhere. * Smoking: Stopping (Swazi) * Smoking: Anti-Smoking Medication: Deciding About (Swazi) * Smoking Cessation: Health Benefits: General Info (Swazi) * Cardiac Rehabilitation (Swazi) * Heart Attack: Medicine for Secondary Prevention (Swazi) * PCI (Percutaneous Coronary Intervention): Post-op (Swazi) documented in this encounter Medications at Time [...] S/P TNK prior to transfer to [facility] - S/P Prasugrel & ASA load followed by maintenance ASA 81 mg & Prasugrel 10 mg - LVEDP 21 in the Barrel Lathe Operator Outside - Prior to Cardiac Catheterization, noted to [...] was high. - F/u with PCP for shelter DM control. 3. COPD - Duoneb q4h [...] diuretic. Drew Damon MD 08/07/2019 Cardiology S2, 3348 Associated attestation - Tariq Guerrero MD - [...] PCP: Sae Marr MD PCP phone #: [phone] ID/Chief Complaint: Inferior STEMI History of Present [...] prompted his to call 911. Per the forming machine operator's instructionshe took SLN x3, but did not experience any relief of symptoms. EMS arrived and noted his heart rate to be in the 30s with blood pressures 60s/30s. He was transcutaneously paced en route to [facility]. EKG at [facility] showed STEs in the inferior leads [...] epinephrine. He was transferred to the [facility] ED for evaluation. On arrival to [facility] he had continued chest pain, but his EKG changes had resolved. He was on 1.5 of epi with heart rates in the 80s and blood pressures in the 110s/50s. He was taken immediately to the garden labourer where he had a EDEN placed to his proximal RCA. He was weaned off of epinephrine in the garden labourer and transferred to the CSCU. In the [...] daily. ??? [facility] USE DIRECTED. Active ??? 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 Invalid input(s): [id number] Heme: No results for input(s): LDH, HAPTOGLOBIN, [...] Admit to Cardiology, S2 Team Pager # [phone] #CAD #inferior STEMI - s/p asa 324 [...] cardiology and will be rushed to the Barrel Lathe Operator Outside. Review of Systems: Review of Systems Constitutional: [...] by cardiology and was rushed to the Barrel Lathe Operator Outside. No infectious symptoms concerning for COVID. M[place]za [...] in the outpatient cardiac rehabilitation program at [facility] was discussed. Patient agrees to a referral to this program. He participated in a few sessions of cardiac rehab [facility] in 2018 s/p PCI. 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 No problem w/ADL's Living Situation: lives w/spouse in a single level w/3STE and also has a camp w/2STE Physical Address [address] [place], [place] [address] [place] [address] Supports: Lives w/ and onlses-if-bky who are both supportive. Also has friends [...] home via car w/ when medically ready. fuel quality tech/Applications Development Consultant will continue to follow patient???s progress and remain available if situation changes for coordination of care, psychosocial support and/or discharge planning. Kareen Samayoa RN Pager [phone] Extension [phone] * Plan of Care - Natalia Renee [...] concerns. Thank you. Bryn Guevara, MSN, RN-, [facility] Tobacco Cylinder Sander Operator [facility] Pager #[phone] * Plan of Care - Daniel Sands [...] MD - 08/06/2019 3:50 AM EDT [facility] Operative Note Patient Name: Samy Patricio Jr. : [id number] MR#: [id number] Case Date: 08/06/2019 Surgeon: Surgeon(s) and Role: [...] compared to ticagrelor or plavix, reducing stroke, PR and (NEJM 2019). Give plavix 75 mg [...] arrived via EMS from OSH for Stemi garden labourer. 3PM patient started to have chest pain continued to get worse. Took 3 SL nitro at home and EMS was called. documented in this encounter Plan of Treatment Upcoming Encounters Date Type Department Care Team (Late st Contact Info) Description 01/10/2024 9:45 AM EDT Office Visit Neurosurgery at [facility] [address] [place] [address] Rosanna Clement MD [address] [facility] [place] [address] Chau Blackburn PA [address] [facility] [place] [address] 03/20/2024 10:00 AM EST Office [place] [phone] Tania Gates, [facility] [place] [address] 12/23/2024 8:00 AM EDT Office [place] [phone] Tania Gates, [facility] [place] [address] Scheduled Orders Name Type Priority Associated Diagnoses [...] unspecified artery CRP, ACUTE INFLAMMATION STAT 08/06/19 5:35 AM EDT HEMOGRAM STAT 08/06/2019 5:35 [...] 5:32 AM EDT CARDIAC CATHETERIZATION STAT 08/06/19 4:[address] elevation myocardial infarction (STEMI), unspecified artery EKG 12-LEAD STAT 08/06/2019 2:05 AM EDT documented in this encounter Results * (ABNORMAL) POCT Glucose (08/07/2019 4:53 PM EDT) [facility] Signature Glucose, POC 286(H) 65 - 199 mg/dL [facility] Comment: Supplemental ranges: <140 mg/dL before meals <180 mg/dL all other times of the day Blood specimen (specimen) 08/07/2019 4:53 PM EDT 08/07/2019 4:53 PM EDT Tariq Guerrero MD POINT OF CARE TEST O RDERABLES [facility] [place] [address] * POCT Glucose (08/07/2019 1:55 PM EDT) Glucose, POC 178 65 - 199 mg/dL [facility] Comment: Supplemental ranges: <140 mg/dL before meals <180 mg/dL all other times of the day Blood specimen (specimen) 08/07/2019 1:55 PM EDT 08/07/2019 1:55 PM EDT Tariq Guerrero MD POINT OF CARE TEST O RDERABLES Performing Organization Address City/[facility] [address]/ZIP Co de Phone Number [facility] [place] [address] * CK (08/07/2019 12:05 PM EDT) [facility] Signature Creatine Kinase 133 0 - 200 unit/L [facility] Blood specimen (specimen) 08/07/2019 12:05 PM EDT 08/07/2019 12:20 PM EDT Narrative Resulting Agency Comment Spec In Lab Tariq Guerrero MD CHEMISTRY ORDERABLES Performing Organization Address [facility] [address]/[facility] Co de Phone Number [facility] [place] [address] * (ABNORMAL) POCT Glucose (08/07/2019 11:20 AM EDT) Glucose, POC 309(H) 65 - 199 mg/dL [facility] Comment: Supplemental ranges: <140 mg/dL before meals <180 mg/dL all other times of the day Blood specimen (specimen) 08/07/2019 11:20 AM EDT 08/07/2019 11:20 AM EDT Tariq Guerrero MD POINT OF CARE TEST O RDERABLES Performing Organization Address City/[facility] [address]/ZIP Co de Phone Number [facility] [place] [address] * EKG 12 Lead (08/07/2019 8:57 AM EDT) Ventricular rate 75 BPM MUSE SYSTEM Atrial Rate 75 BPM MUSE SYSTEM P-R Interval 176 ms MUSE SYSTEM QRS Duration 94 ms MUSE SYSTEM Q-T Interval 390 ms MUSE SYSTEM QTC Calculated (Bezet) 435 ms MUSE SYSTEM Calculated P [place] 67 degrees MUSE SYSTEM Calculated R [place] 47 degrees MUSE SYSTEM Calculated T [place] -5 degrees MUSE SYSTEM INTERPRETATION Normal sinus rhythm T wave abnormality, consider inferior ischemia Abnormal ECG When compared with ECG of 06-AUG-2019 20:18, (unconfirmed) No significant change was found Confirmed by MD Yaima, Timothy Collins ([id number]) on 08/07/2019 5:14:03 PM MUSE SYSTEM 08/07/2019 8:57 AM EDT 08/07/2019 5:14 PM EDT Tiffanie Espino MD ECG ORDERABLES Performing Organization Address [facility] [address]/[facility] Co de Phone Number MUSE SYSTEM [...] O RDERABLES Performing Organization Address [facility] [address]/[facility] Co de Phone Number [facility] [place] [address] * CK (08/07/2019 5:53 AM EDT) Creatine Kinase 168 0 - 200 unit/L [facility] Blood specimen (specimen) Venous Draw / Unknown 08/07/2019 5:53 AM EDT 08/07/2019 6:07 AM EDT Narrative Resulting Agency Comment Spec In Lab Philip Johnson MD CHEMISTRY ORDERABLES Performing Organization Address [facility]/State/ZIP Co de Phone Number [facility] [place] [address] * (ABNORMAL) Troponin (08/07/2019 5:53 AM EDT) [facility] Troponin-T 0.50(H) 0.00 - 0.00 ng/mL [facility] Comment: The 99th percentile for Troponin T is less than 0.01 ng/mL, any detectable cTnT concentration using this assay should be considered elevated. According to the third universal definition of myocardial infarction the following criteria with a clinical presentation consistent with acute myocardial ischemia meets the diagnosis for a myocardial infarction (PR). Detection of a rise and/or fall of cTnT, with at least one value greater than the 99th percentile (> or = 0.01) and with at least one of the following ?? Symptoms of ischemia ?? New or presumed new significant DA-dfalvcv-C wave (ST-T) changes or new left bundle [...] additional sample may be indicated. Reference: Third Meade Definition of Myocardial Infarction. Journal of the Stateless College of Cardiology 2012;60:1581-98 Blood specimen (specimen) 08/07/2019 5:53 AM EDT 08/07/2019 5:59 AM EDT Narrative Resulting Agency Comment Spec In Lab Tariq Guerrero MD CHEMISTRY ORDERABLES [facility] [place] [address] * Differential, Automated (08/07/2019 5:53 AM EDT) [facility] Neutrophil % 59.8 % [facility] Neutrophil Absolute 4.63 1.70 - 6.10 x10(3)/mcL [facility] Lymph % 24.9 % [facility] Lymphocytes Abs 1.9 0.9 - 3.2 x10(3)/[facility] Monocyte % 8.5 % [facility] Monocyte Abs 0.7 0.3 - 0.9 x10(3)/[facility] Eos % 5.8 % [facility] Eosinophils Abs 0.4 0.0 - 0.4 x10(3)/[facility] Basophil % 0.5 % [facility] Baso Absolute 0.0 0.0 - 0.1 x10(3)/[facility] Immature Gran % 0.50 % [facility] Comment: Immature granulocytes(IG's)percentage and absolute count will include metamyelocytes, myelocytes, and promyelocytes. Blood smears from CBCs yielding IG's will be scanned manually for concordance. If this scan disagrees with the automated IG or if promyelocytes are noted, a manual differential will be performed. Immature Gran Absolute 0.04 0.00 - 0.04 x10(3)/[facility] Blood specimen (specimen) 08/07/2019 5:53 AM EDT 08/07/2019 5:59 AM EDT Narrative Resulting Agency Comment Spec In Lab Lovely Moise MD HEMATOLOGY ORDERABLE S Performing Organization Address City/State/[facility] Co de Phone Number [facility] [place] [address] * Hemogram (08/07/2019 5:53 AM EDT) White Blood Cell 7.8 4.0 - 9.5 x10(3)/[facility] Red Blood Cell 4.71 4.58 - 5.54 x10(6)/[facility] Hemoglobin 14.5 13.7 - 16.5 gm/dL [facility] Hematocrit 43.0 40.5 - 48.5 % [facility] Mean Cell Volume 91.3 82.9 - 93.1 fL [facility] Mean Cell Hemoglobin 30.8 27.5 - 32.1 pg [facility] Mean Cell Hemoglobin Concentration 33.7 32.0 - 35.7 gm/dL [facility] Platelet 181 145 - 357 x10(3)/[facility] RDW Standard Deviation 44.3 36.0 - 45.0 [facility] RDW coefficient of variation 13.1 11.4 - 13.8 % [facility] Mean Platelet Volume 9.6 7.6 - 12.9 [facility] NRBC% auto 0.0 % [facility] NRBC Absolute 0.000 0.000 - 0.000 x10(3)/[facility] Blood specimen (specimen) 08/07/2019 5:53 AM EDT 08/07/2019 5:59 AM EDT Narrative Resulting Agency Comment Spec In Lab Lovely Moise MD HEMATOLOGY ORDERABLE S Performing Organization Address City/[facility] [address]/ZIP Co de Phone Number [facility] [place] [address] * Magnesium (08/07/2019 5:53 AM EDT) Magnesium 0.86 0.69 - 1.07 mmol/L [facility] Blood specimen (specimen) 08/07/2019 5:53 AM EDT 08/07/2019 5:59 AM EDT Narrative Resulting Agency Comment Spec In Lab Tariq Guerrero MD CHEMISTRY ORDERABLES Performing Organization Address [facility] [address]/ZIP Co de Phone Number [facility] [place] [address] * (ABNORMAL) BMP w/fasting Glucose (08/07/2019 5:53 [...] of Diabetes Mellitus, Position Statement from the Stateless Diabetes Association. ??Diabetes Care, Volume 33, Supplement [...] of body mass or the acutely ill. http://SocialCom/DHMCnkf eGFR 65 >=60 mL/min/1. 73 m?? [facility] Comment: The eGFR was calculated using the CKD-EPI equation. As with all creatinine based estimates of kidney function, eGFR values calculated with the CKD-EPI equation are not accurate in patients with acute kidney failure, extremes of body mass or the acutely ill. http://1DayMakeover.com/DHMCnkf Blood specimen (specimen) 08/07/2019 5:53 AM EDT 08/07/2019 5:59 AM EDT Narrative Resulting Agency Comment Spec In Lab Tariq Guerrero MD CHEMISTRY ORDERABLES Performing Organization Address [facility] [address]/[facility] Co de Phone Number [facility] [place] [address] * POCT Glucose (08/07/2019 4:16 AM EDT) Glucose, POC 120 65 - 199 mg/dL [facility] Comment: Supplemental ranges: <140 mg/dL before meals <180 mg/dL all other times of the day Blood specimen (specimen) 08/07/2019 4:16 AM EDT 08/07/2019 4:16 AM EDT Tariq Guerrero MD POINT OF CARE TEST O RDERABLES Performing Organization Address [facility] [address]/[facility] Co de Phone Number [facility] [place] [address] * (ABNORMAL) CK (08/07/2019 12:28 AM EDT) Creatine Kinase 220(H) 0 - 200 unit/L [facility] Blood specimen (specimen) 08/07/2019 12:28 AM EDT 08/07/2019 12:37 AM EDT Narrative Resulting Agency Comment Spec In Lab Tariq Guerrero MD CHEMISTRY ORDERABLES Performing Organization Address [facility] [address]/[facility] Co de Phone Number [facility] [place] [address] * (ABNORMAL) Troponin (08/07/2019 12:28 AM EDT) [...] meets the diagnosis for a myocardial infarction (PR). Detection of a rise and/or fall of cTnT, with at least one value greater than the 99th percentile (> or = 0.01) and with at least one of the following ?? Symptoms of ischemia ?? New or presumed new significant FK-cfxmkkw-E wave (ST-T) changes or new left bundle [...] additional sample may be indicated. Reference: Third Meade Definition of Myocardial Infarction. Journal of the Stateless College of Cardiology 2012;60:1581-98 Blood specimen (specimen) 08/07/2019 12:28 AM EDT 08/07/2019 12:37 AM EDT Narrative Resulting Agency Comment Spec In Lab Tariq Guerrero MD CHEMISTRY ORDERABLES Performing Organization Address [facility] [address]/ZIP Co de Phone Number [facility] [place] [address] * (ABNORMAL) POCT Glucose (08/06/2019 11:26 PM EDT) Glucose, POC 216(H) 65 - 199 mg/dL [facility] Comment: Supplemental ranges: <140 mg/dL before meals <180 mg/dL all other times of the day Blood specimen (specimen) 08/06/2019 11:26 PM EDT 08/06/2019 11:26 PM EDT Tariq Guerrero MD POINT OF CARE TEST O RDERABLES Performing Organization Address City/[facility] [address]/ZIP Co de Phone Number [facility] [place] [address] * EKG 12 Lead (08/06/2019 8:18 PM EDT) Ventricular rate 81 BPM MUSE SYSTEM Atrial Rate 81 BPM MUSE SYSTEM P-R Interval 178 ms MUSE SYSTEM QRS Duration 96 ms MUSE SYSTEM Q-T Interval 368 ms MUSE SYSTEM QTC Calculated (Bezet) 427 ms MUSE SYSTEM Calculated P [place] 64 degrees MUSE SYSTEM Calculated R [place] 52 degrees MUSE SYSTEM Calculated T [place] 3 degrees MUSE SYSTEM INTERPRETATION Normal sinus rhythm Normal ECG When compared with ECG of 06-AUG-2019 06:13, (unconfirmed) No significant change was found Confirmed by MD Yaima, Timothy Collins ([id number]) on 08/07/2019 4:51:03 PM MUSE SYSTEM 08/06/2019 8:18 PM EDT 08/07/2019 4:51 PM EDT Tariq Guerrero MD ECG ORDERABLES Performing Organization Address [facility] [address]/[facility] Co de Phone Number MUSE SYSTEM * POCT Glucose (08/06/2019 7:59 PM EDT) Pathologist [facility] Glucose, POC 193 65 - 199 mg/dL [facility] Comment: Supplemental ranges: <140 mg/dL before meals <180 mg/dL all other times of the day Blood specimen (specimen) 08/06/2019 7:59 PM EDT 08/06/2019 7:59 PM EDT Tariq Guerrero MD POINT OF CARE TEST O RDERABLES Performing Organization Address [facility] [address]/[facility] Co de Phone Number [facility] [place] [address] * (ABNORMAL) CK (08/06/2019 6:13 PM EDT) Creatine Kinase 301(H) 0 - 200 unit/L [facility] Blood specimen (specimen) 08/06/2019 6:13 PM EDT 08/06/2019 7:04 PM EDT Narrative Resulting Agency Comment Spec In Lab Tariq Guerrero MD CHEMISTRY ORDERABLES Performing Organization Address [facility] [address]/ZIP Co de Phone Number [facility] [place] [address] * (ABNORMAL) Troponin (08/06/2019 6:13 PM EDT) [facility] Troponin-T 0.84(H) 0.00 - 0.00 ng/mL [facility] Comment: The 99th percentile for Troponin T is less than 0.01 ng/mL, any detectable cTnT concentration using this assay should be considered elevated. According to the third universal definition of myocardial infarction the following criteria with a clinical presentation consistent with acute myocardial ischemia meets the diagnosis for a myocardial infarction (PR). Detection of a rise and/or fall of cTnT, with at least one value greater than the 99th percentile (> or = 0.01) and with at least one of the following ?? Symptoms of ischemia ?? New or presumed new significant GI-dqbgqpy-U wave (ST-T) changes or new left bundle [...] additional sample may be indicated. Reference: Third Meade Definition of Myocardial Infarction. Journal of the Stateless College of Cardiology 2012;60:1581-98 Blood specimen (specimen) 08/06/2019 6:13 PM EDT 08/06/2019 7:04 PM EDT Narrative Resulting Agency Comment Spec In Lab Tariq Guerrero MD CHEMISTRY ORDERABLES [facility] [place] [address] * POCT Glucose (08/06/2019 4:18 PM EDT) [facility] Glucose, POC 105 65 - 199 mg/dL [facility] Comment: Supplemental ranges: <140 mg/dL before meals <180 mg/dL all other times of the day Blood specimen (specimen) 08/06/2019 4:18 PM EDT 08/06/2019 4:18 PM EDT Tariq Guerrero MD POINT OF CARE TEST O RDERABLES Performing Organization Address [facility] [address]/[facility] Co de Phone Number [facility] [place] [address] * Magnesium (08/06/2019 2:06 PM EDT) Magnesium 0.82 0.69 - 1.07 mmol/L [facility] Blood specimen (specimen) 08/06/2019 2:06 PM EDT 08/06/2019 2:18 PM EDT Narrative Resulting Agency Comment Spec In Lab Tariq Guerrero MD CHEMISTRY ORDERABLES Performing Organization Address [facility] [address]/[facility] Co de Phone Number [facility] [place] [address] * Basic Metabolic Panel (non-fasting) (08/06/2019 2:06 [...] of body mass or the acutely ill. [email or web address]/[email or web address] eGFR 78 >=60 mL/min/1. 73 m?? [facility] Comment: The eGFR was calculated using the CKD-EPI equation. As with all creatinine based estimates of kidney function, eGFR values calculated with the CKD-EPI equation are not accurate in patients with acute kidney failure, extremes of body mass or the acutely ill. [email or web address]/[facility] Blood specimen (specimen) 08/06/2019 2:06 PM EDT 08/06/2019 2:18 PM EDT Narrative Resulting Agency Comment Spec In Lab Tariq Guerrero MD CHEMISTRY ORDERABLES Performing Organization Address [facility] [address]/[facility] Co de Phone Number [facility] [place] [address] * (ABNORMAL) CK (08/06/2019 12:05 PM EDT) Creatine Kinase 344(H) 0 - 200 unit/L [facility] Blood specimen (specimen) 08/06/2019 12:05 PM EDT 08/06/2019 12:15 PM EDT Narrative Resulting Agency Comment Spec In Lab Tariq Guerrero MD CHEMISTRY ORDERABLES Performing Organization Address [facility] [address]/[facility] Co de Phone Number [facility] [place] [address] * (ABNORMAL) Troponin (08/06/2019 12:05 PM EDT) Troponin-T 0.74(H) 0.00 - 0.00 ng/mL [facility] Comment: The 99th percentile for Troponin T is less than 0.01 ng/mL, any detectable cTnT concentration using this assay should be considered elevated. According to the third universal definition of myocardial infarction the following criteria with a clinical presentation consistent with acute myocardial ischemia meets the diagnosis for a myocardial infarction (PR). Detection of a rise and/or fall of cTnT, with at least one value greater than the 99th percentile (> or = 0.01) and with at least one of the following ?? Symptoms of ischemia ?? New or presumed new significant JN-xifbikb-F wave (ST-T) changes or new left bundle [...] additional sample may be indicated. Reference: Third Meade Definition of Myocardial Infarction. Journal of the Stateless College of Cardiology 2012;60:1581-98 Blood specimen (specimen) 08/06/2019 12:05 PM EDT 08/06/2019 12:15 PM EDT Narrative Resulting Agency Comment Spec In Lab Tariq Guerrero MD CHEMISTRY ORDERABLES Performing Organization Address City/[facility] [address]/ZIP Co de Phone Number [facility] [place] [address] * POCT Glucose (08/06/2019 11:13 AM EDT) [facility] Glucose, POC 106 65 - 199 mg/dL [facility] Comment: Supplemental ranges: <140 mg/dL before meals <180 mg/dL all other times of the day Blood specimen (specimen) 08/06/2019 11:13 AM EDT 08/06/2019 11:13 AM EDT Tariq Guerrero MD POINT OF CARE TEST O RDERABLES Performing Organization Address City/[facility] [address]/ZIP Co de Phone Number [facility] [place] [address] * ECHO COMPLETE (08/06/2019 9:20 AM EDT) Pathologist [facility] EF 64 HEARTLAB SYSTEM Anatomical Region Laterality Modality Other 08/06/2019 Narrative 08/06/2019 9:40 AM EDT Procedure: ?Transthoracic Echocardiogram Patient: ?GIDEON Oreilly ?(Age): 1965(53y) Med Rec#: ? [id number] ?Sex: ?M ? Site Loc: ? DH ?Ht / Wt: ??183(cm)/120(kg) Pt. Loc: ?Adult Floor ? BSA: ?2.4 Study Date: ?? 08/06/2019 ?Pt. Type: Inpatient Tape: ? Referring: EARLE Reading: Jack Lucas ([id number]) Mail Delivery Supervisor: Peter Beaver RDCS, FASE Interpreting Fellow: Tiffanie Hernandez ([id number]) Diagnosis: *ST elevation (STEMI) myocardial infarction of [...] Vmax ?0.88 ? m/sec ? MV deceleration [id number] ? msec ? MV A-wave Vmax ?0.85 [...] ? Mid-Inferior ?Normal ? Mid-Inferoseptal ?Normal ? [place]-Septal ? Normal ? [place]-Anterior ? Normal ? [place]-Lateral ?Normal ? [place]-Inferior ? Normal ? [place]-Tip ?Normal ? This report has been electronically signed by: Jack Lucas MD ? 08/06/2019 09:39:30 Images reviewed and interpretation verified [facility] Cardiac Ultrasound Laboratory Procedure Note Jack Lucas MD - 08/06/2019 Procedure: Transthoracic Echocardiogram Patient: GIDEON ROBLES(Age): 1965(53y) Med Rec#: [id number] Sex: M [facility] Ht / Wt: 183(cm)/120(kg) Pt. Loc: Adult Floor BSA: 2.4 Study Date: 08/06/2019 Pt. Type: Inpatient Tape: Referring: EARLE Reading: Jack Lucas ([id number]) Mail Delivery Supervisor: Peter Beaver RDCS, FASE Interpreting Fellow: Tiffanie Hernandez ([id number]) Diagnosis: *ST elevation (STEMI) myocardial infarction of [...] MV E-wave Vmax 0.88 m/sec MV deceleration [id number] msec MV A-wave Vmax 0.85 m/sec MV [...] Normal Mid-Posterolateral Normal Mid-Inferior Normal Mid-Inferoseptal Normal [place]-Septal Normal [place]-Anterior Normal [place]-Lateral Normal [place]-Inferior Normal [place]-Tip Normal This report has been electronically signed by: Jack Lucas MD 08/06/2019 09:39:30 Images reviewed and interpretation verified [facility] Cardiac Ultrasound Laboratory Tiffanie Espino MD ECHO ORDERABLES * POCT Glucose (08/06/2019 7:18 AM EDT) Glucose, POC 170 65 - 199 mg/dL [facility] Comment: Supplemental ranges: <140 mg/dL before meals <180 mg/dL all other times of the day Blood specimen (specimen) 08/06/2019 7:18 AM EDT 08/06/2019 7:18 AM EDT Tariq Guerrero MD POINT OF CARE TEST O RDERABLES [facility] [place] [address] * XR Chest One View (08/06/2019 6:52 [...] ? Electronically signed by: Violeta Fortune MD, [facility] ([phone]), at 08/06/2019 8:34 AM Narrative 08/06/2019 8:34 [...] below. Electronically signed by: Violeta Fortune MD, [facility]([phone]), at 08/06/2019 8:34 AM Tiffanie Espino MD IMG DX ORDERABLES * EKG 12 Lead (08/06/2019 6:13 AM EDT) Ventricular rate 80 BPM MUSE SYSTEM Atrial Rate 80 BPM MUSE SYSTEM P-R Interval 190 ms MUSE SYSTEM QRS Duration 90 ms MUSE SYSTEM Q-T Interval 384 ms MUSE SYSTEM QTC Calculated (Bezet) 442 ms MUSE SYSTEM Calculated P [place] 68 degrees MUSE SYSTEM Calculated R [place] 59 degrees MUSE SYSTEM Calculated T [place] 24 degrees MUSE SYSTEM INTERPRETATION Normal sinus rhythm Normal ECG When compared with ECG of 06-AUG-2019 02:05, (unconfirmed) No significant change was found I personally reviewed the tracing and edited the fellows interpretation Confirmed by fellow MD Dee, Jaylin Oviedo ([id number]) on 08/06/2019 1:18:49 PM Confirmed by MD Yaima, Timothy Collins ([id number]) on 08/07/2019 9:47:42 AM MUSE SYSTEM 08/06/2019 [...] Lab Philip Johnson MD HEMATOLOGY ORDERABLE S [facility] [place] [address] * CRP, acute inflammation (08/06/2019 5:35 AM EDT) [facility] C-Reactive Protein 4.3 <=4.9 mg/L [facility] Blood specimen (specimen) Venous Draw / Unknown 08/06/2019 5:35 AM EDT 08/06/2019 5:44 AM EDT Narrative Resulting Agency Comment Spec In Lab Philip Johnson MD CHEMISTRY ORDERABLES Performing Organization Address [facility] [address]/[facility] Co de Phone Number [facility] [place] [address] * (ABNORMAL) Differential, Automated (08/06/2019 5:35 AM EDT) [facility] Neutrophil % 73.5 % [facility] Neutrophil Absolute 6.30(H) 1.70 - 6.10 x10(3)/mc L [facility] Lymph % 16.2 % [facility] Lymphocytes Abs 1.4 0.9 - 3.2 x10(3)/mc L [facility] Monocyte % 5.5 % [facility] Monocyte Abs 0.5 0.3 - 0.9 x10(3)/mc L [facility] Eos % 3.6 % [facility] Eosinophils Abs 0.3 0.0 - 0.4 x10(3)/mc L [facility] Basophil % 0.6 % [facility] Baso Absolute 0.0 0.0 - 0.1 x10(3)/mc L [facility] Immature Gran % 0.60 % [facility] Comment: Immature granulocytes(IG's)percentage and absolute count will include metamyelocytes, myelocytes, and promyelocytes. Blood smears from CBCs yielding IG's will be scanned manually for concordance. If this scan disagrees with the automated IG or if promyelocytes are noted, a manual differential will be performed. Immature Gran Absolute 0.05(H) 0.00 - 0.04 x10(3)/mc L [facility] Blood specimen (specimen) 08/06/2019 5:35 AM EDT 08/06/2019 5:41 AM EDT Narrative Resulting Agency Comment Spec In Lab Mendoza Richards MD HEMATOLOGY CASSI HU [facility] [place] [address] * (ABNORMAL) Hemogram (08/06/2019 5:35 AM EDT) White Blood Cell 8.6 4.0 - 9.5 x10(3)/mc L [facility] Red Blood Cell 4.33(L) 4.58 - 5.54 x10(6)/mc L [facility] Hemoglobin 13.4(L) 13.7 - 16.5 [...] RDW Standard Deviation 45.2(H) 36.0 - 45.0 [facility] RDW coefficient of variation 13.2 11.4 - 13.8 % [facility] Mean Platelet Volume 9.5 7.6 - 12.9 fL [facility] NRBC% auto 0.0 % [facility] NRBC Absolute 0.000 0.000 - 0.000 x10(3)/mc L [facility] Blood specimen (specimen) 08/06/2019 5:35 AM EDT 08/06/2019 5:41 AM EDT Narrative Resulting Agency Comment Spec In Lab Mendoza Richards MD HEMATOLOGY CASSI HU [facility] [place] [address] * Lipid Panel (Reflex Direct LDL) (08/06/2019 5:35 AM EDT) Cholesterol, Total 89 mg/dL [facility] Comment: Lower Risk: <200 mg/dL Average Risk: 200-239 mg/dL Higher Risk: >hn=000 mg/dL Triglyceride 89 mg/dL [facility] Comment: Average Risk/Lower Risk: <150 mg/dL Borderline High Risk: 150-199 mg/dL High Risk: 200-499 mg/dL Very High Risk: >ox=733 mg/dL HDL Cholesterol 38 mg/dL [facility] Comment: Males: ?? Higher Risk: <40 mg/dL Females: ?? HIgher Risk: <50 mg/dL LDL Cholesterol 33 mg/dL [facility] Comment: Lowest Risk: <100 mg/dL Lower Risk: 100-129 mg/dL Borderline High Risk: 130-159 mg/dL High Risk: 160-189 mg/dL Very High Risk: >tp=151 mg/dL Cholesterol/HDL Ratio 2.3 ratio [facility] Lipid Interpretation See Note [facility] Comment: Lipid management should be guided by a patient? s ASCVD risk, goals and preferences. ACC/AHA Guidelines recommend high intensity statin if clinical ASCVD or LDL greater than or equal to 190 mg/dL. http://tinyurl.com/GUS-PKT-Fzmblpxqg Adults aged 40-75 with LDL 70-189 mg/dL should have their 10 year ASCVD risk estimated with the ACC/AHA ASCVD risk vacuum truck driver http://tools.acc.org/DEXEH-Dtpe-Jeafmfrmi/ Statin should be discussed if risk greater [...] MD CHEMISTRY ORDERABLES [facility] [place] [address] * (ABNORMAL) Hemoglobin A1c (08/06/2019 5:35 AM [...] Mellitus, Diabetes Care 2013; 36: Suppl. 1, B05-34 Estimated Average Glucose 135 mg/dL [facility] [...] into estimated average glucose values. ??Diabetes Care 2008:31(8):6836-8739. Blood specimen (specimen) 08/06/2019 5:35 AM EDT 08/06/2019 5:41 AM EDT Narrative Resulting Agency Comment Spec In Lab Tiffanie Espino MD CHEMISTRY ORDERABLES [facility] [place] [address] * (ABNORMAL) Troponin (08/06/2019 5:35 AM EDT) [...] meets the diagnosis for a myocardial infarction (PR). Detection of a rise and/or fall of cTnT, with at least one value greater than the 99th percentile (> or = 0.01) and with at least one of the following ?? Symptoms of ischemia ?? New or presumed new significant YK-cxzbhvg-C wave (ST-T) changes or new left bundle [...] additional sample may be indicated. Reference: Third Meade Definition of Myocardial Infarction. Journal of the Stateless College of Cardiology 2012;60:1581-98 Blood specimen (specimen) 08/06/2019 5:35 AM EDT 08/06/2019 5:41 AM EDT Narrative Resulting Agency Comment Spec In Lab Tiffanie Espino MD CHEMISTRY ORDERABLES [facility] [place] [address] * (ABNORMAL) Basic Metabolic Panel (non-fasting) (08/06/2019 [...] of body mass or the acutely ill. http://SocialCom/[facility] eGFR 76 >=60 mL/min/1. 73 m?? [facility] Comment: The eGFR was calculated using the CKD-EPI equation. As with all creatinine based estimates of kidney function, eGFR values calculated with the CKD-EPI equation are not accurate in patients with acute kidney failure, extremes of body mass or the acutely ill. http://[email or web address] Blood specimen (specimen) 08/06/2019 5:35 AM EDT 08/06/2019 5:41 AM EDT Narrative Resulting Agency Comment Spec In Lab Tiffanie Espino MD CHEMISTRY ORDERABLES Performing Organization Address [facility] [address]/[facility] Co de Phone Number [facility] [place] [id number] * (ABNORMAL) POCT Glucose (08/06/2019 5:32 AM EDT) Glucose, POC 215(H) 65 - 199 mg/dL [facility] Comment: Supplemental ranges: <140 mg/dL before meals <180 mg/dL all other times of the day Blood specimen (specimen) 08/06/2019 5:32 AM EDT 08/06/2019 5:32 AM EDT Tariq Guerrero MD POINT OF CARE TEST O RDERABLES Performing Organization Address [facility] [address]/[facility] Co de Phone Number [facility] [place] [address] * CARDIAC CATHETERIZATION (08/06/2019 4:38 AM EDT) Anatomical Region Laterality Modality Other Narrative 08/09/2019 2:54 PM EDT ?[facility] ? Cardiac Catheterization/Intervention Report ? Patient Name: Schartner, Samy ? Procedure Date: 08/06/2019 ? A #: [id number] ? Primary Physician: Jung Merino ? Case #: [id number] ? File Name: [id number] ? Catheterization Order Number: [id number] ? [facility] ? Final Report [place], [place] ? Patient Name: ? Samy Patricio ? ID#: ?[id number] ? : ?1965 ? Procedure Date: ? [...] was designated as ?ASA Class IV. The [facility] clinical frailty scale is 4: [...] procedure was Emergent. The indication for ?the garden labourer visit is ACS less than or equal [...] require ?modification of this regimen. Consult [facility] Interventional Cardiology for ?questions. ?This patient has [...] any medical treatment. Consult ?http://tools.acc.org/DAPTriskapp/#!/content/calculator/ or [facility] ?Interventional Cardiology for questions. ? Conclusions: ?* [...] insertion-coronary and IVUS # coronary. ? Jung J Coylewright, ? M.D. ? Electronically Signed by: Jung J Coylewright, M.D. ? Report Finalized: 08/09/2019 ??14:51 ? Report Last Ammended: 09/12/2019 ??15:41 ? Procedure Note Jung Merino MD - 09/12/2019 [facility] Cardiac Catheterization/Intervention Report Patient Name: Samy Patricio Procedure Date: 08/06/2019 A #: [id number] Primary Physician: Jung Merino Case #: [id number] File Name: [id number] Catheterization Order Number: [id number] [facility] FinalReport [place], [place] Patient Name: Samy Patricio ID#:[id number] :1965 Procedure Date: August 06, 2019 Case [...] patient wasdesignated as ASA Class IV. The [facility] clinical frailty scale is 4: Vulnerable. Diagnostic Tests: Electrocardiography: EKG was assessed by ECG. EKG was Abnormal. EKG showed STDeviation >= 0.5 mm. Medications Prior to Procedure: Angiotensin Converting Enzyme Inhibitor, Aspirin, Long Acting Nitrate, Statin and Thrombolytic (any). Indications for Diagnostic Cath: The priority of the diagnostic procedure was Emergent. Theindication for the garden labourer visit is ACS less than or equal [...] The priority for the procedure was Emergent.The NCDR indication for the procedure was STEMI (after [...] mayrequire modification of this regimen. Consult [facility] Interventional Cardiologyfor questions. This patient has a [...] against any medical treatment.Consult http://tools.acc.org/DAPTriskapp/#!/content/calculator/ or [facility] Interventional Cardiology for questions. Conclusions: * One [...] 15:41 Jung Merino MD CARDIAC CATH CASSI BRISINCERE * EKG 12 Lead (08/06/2019 2:05 AM EDT) Ventricular rate 85 BPM MUSE SYSTEM Atrial Rate 85 BPM MUSE SYSTEM P-R Interval 172 ms MUSE SYSTEM QRS Duration 106 ms MUSE SYSTEM Q-T Interval 382 ms MUSE SYSTEM QTC Calculated (Bezet) 454 ms MUSE SYSTEM Calculated P [place] 68 degrees MUSE SYSTEM Calculated R [place] 71 degrees MUSE SYSTEM Calculated T [place] 24 degrees MUSE SYSTEM INTERPRETATION Normal sinus rhythm Normal ECG When compared with ECG of 04-JUL-2018 22:00, No significant change was found I personally reviewed the tracing and edited the fellows interpretation Confirmed by fellow MD Dee, Jaylin Oviedo ([id number]) on 08/06/2019 1:17:24 PM Confirmed by MD Yaima, Timothy Collins ([id number]) on 08/07/2019 9:47:34 AM MUSE SYSTEM 08/06/2019 [...] GUILLAUME)1511 (Given - Provider: Maureen Carrillo, GUILLAUME) insulin [...] Renee RN) 0400 (Not Given - Provider: Ntaalia Renee RN - Reason: Order parameters not met)0813 (Given - Provider: Maureen Carrillo, GUILLAUME)1202 (Given - Provider: Maureen Carrillo, RN)1714 (Given - Provider: Maureen Carrillo, RN) LORazepam [...] IM if no IV access., Routine 1215 (See Alternativ e - Provider: Maureen Carrillo RN) LORazepam (ATIVAN) injection 2 mg(Linked Group 2) 2 mg, Intramuscular, EVERY 8 HOURS, 6 doses, First dose on Mon08/07/19 at 1215, Last dose on Mon08/09/19 at 0415, May give IV if unable to take PO. May give IM if no IV access., Routine 1215 (See Alternativ e - Provider: Maureen Carrillo [...] Minutes 181 (New Bag - Provider: Rama Park, GUILLAUME)2011 (Stopped - Provider: Natalia Renee RN) metoprolol [...] on Mon08/06/19 at 0900, Until Discontinued, Routine 08 (Patch Applied - Provider: Daniel Sands RN) nicotine (NICODERM CQ) 21 mg/24 hr patch 42 mg(Linked Group 3) 42 mg (2 patch), Transdermal, DAILY, First dose (after last modification) on Mon08/07/19 at 0900, Until Discontinued, Routine 08 (Patch Applied - Provider: Maureen Carrillo [...] Renee, GUILLAUME) 0813 (Given - Provider: Maureen Carrillo RN) sucralfate (Carafate) (100 mg/mL) oral liquid 1 g 1 g, Oral, EVERY 6 HOURS SCHEDULED, First dose on Mon08/06/19 at 0600, Until Discontinued, Routine 0600 (Given - Provider: Daniel Sands, GUILLAUME)1236 (Given - Provider: Daniel Sands, RN)1753 (Given - Provider: Rama Park RN)2328 (Given - Provider: Natalia Renee RN) 0507 (Given - Provider: Natalia Renee, GUILLAUME)1130 (Given - Provider: Maureen Carrillo RN)1713 (Given - Provider: Maureen Carrillo RN) thiamine (Vitamin B1) tablet 100 mg [...] Until Mon08/06/19 at 0403, Cath (Intra-Procedure), Routine 221 (Given - Provider: Mckenzie Parks, GUILLAUME) dextrose 10% infusion(Linked Group 4) 250 mL, [...] Until Mon08/06/19 at 0403, Intra-Operative (Intra-Procedure), Routine 233 (Given - Provider: Mckenzie Parks, GUILLAUME)236 (Given - Provider: Mckenzie Parks, GUILLAUME)330 (Given - Provider: Mckenzie Parks, GUILLAUME) glucagon (human recombinant) injection SolR 1 mg(Linked [...] (Intra-Procedure), Routine 0234 (Given - Provider: Mckenzie Parks, RN)236 (Given - Provider: Mckenzie Parks, RN)246 (Given - Provider: Mckenzie Parks RN) nicotine [...] Until Mon08/06/19 at 0403, Cath (Intra-Procedure), Routine 024 (Given - Provider: Jose Ellison MD) sodium [...] override 0209 (New Bag - Provider: Dave Ramírez, RN) [...] Mon08/06/19 at 0450, Until Mon08/07/19 at 2016, For BG 50-70 [...] Routine documented in this encounter Care Teams Ware Finisher Relationship Specialty Start Date End Date Sae Marr MD PCP - General General Internal Medicine 08/06/19 9/3 documented as of this encounter
--- OUTSIDE RECORDS SUMMARY | 2023-12-10 00:45 | XMS_ITS | Encounter Summary ---
Author Organization [facility] [place] [address] Care Team Providers Care Heavy Media Operator Name Role Phone Unavailable Primary Care Provider Unavailabl e Encounter Details Date Type Department Care Team (Late st Contact Info) Description 01/28/2019 9:45 AM EST Telephone Pre-Admission Testing at [facility] [address] [place] [id number] Social History Tobacco Use Types Packs/Day Years [...] 9:45 AM EDT Office Visit Neurosurgery at [facility] [address] [place] [phone] Rosanna Clement MD [address] [place] [address] Chau Blackburn PA [address] [place] [address] 03/20/2024 10:00 AM EST Office [place] [address] Tania Gates, [facility] [place] [address] 12/23/2024 8:00 AM EDT Office [place] [address] Tania Gates, [facility] [place] [address] documented as of this encounter Visit Diagnoses Not on filedocumented in this encounter
--- OUTSIDE RECORDS SUMMARY | 2023-12-10 00:45 | XMS_ITS | Encounter Summary ---
[place] [address] Care Team Providers Care Wood Gluer Name Role Phone Unavailable Primary Care Provider Unavailabl e Reason for Visit * Reason Comments Depression Encounter Details Date Type Department Care Team (Late st Contact Info) Description 07/04/2018 8:16 PM EDT - 07/05/2018 2:03 PM EDT Emergency [place] [address] Aiden Trevino MD [facility] [place] [address] Mihai Crain MD [facility] [place] [address] Emotional crisis Discharge Disposition: Home Social History [...] be a conflict of interest. The website www.psychologyBABADU is a good resource for finding a couples therapist in your area. Refrain from alcohol use. Referral options for outpatient psychiatric treatment: Additional Instructions and Resources: Emergency contacts for worsened symptoms or safety concerns Go to your nearest emergency room, or call 911 Call the [facility] crisis line at [phone]. Helpful websites for additional information: National Institutes of Mental Health (NIMH) http://www.nimh.nih.gov [employer] http://www.healthyminds.org/letstalkfacts.cfm National Chandler on Mental Illness www.jacques.org or www.namivt.org or [...] to do; reported speakingwith ED MD, this com writer spoke with Dr. Crain who did [...] himself. 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 Security notified, patient searched by [...] He told his he was driving to [facility] to talk to someone. Pt called his therapist telling him he was upset about his 's disclosure and was driving to [facility] for help. He states he had been hoping his therapist would offer to see him rather than coming to [facility] but that didn't happen so he drove here. This com writer spoke with his therapist Luis Ewing [phone] who states pt did call him last evening to tell him about his 's disclosure, that he was having what amounts to passive SI. Luis confirms that pt told him he had been drinking and had a gun in his truck but that he was NOT going to use it and stated he was going to drive to [facility] because he wanted help, to talk with [...] scheduled appointment tomorrow at 9am . This com writer met with his privately. She states [...] her he was going to drive to [facility] to talk with someone as he felt [...] Pt's son was with pt when this com writer met with him. He confirms he has removed and secured pt's guns. When this com writer asked him about any concerns he [...] Protective Factors: family and community support, protective cultural/hoahaoism beliefs and future orientation ?? Access to [...] and normal rhythm ?? Language: fluent in cameroonian, non profane ?? Mood: frustrated, ?? Affect: [...] functioning ?? Insight: fair ?? Judgment: fair Ninety Six Suicide Risk Scale - Initial Assessment: Wish [...] within the past 3 months?: No (07/04/182039) Ninety Six Suicide Risk Scale - Daily Assessment (most [...] INR Thyroid: No results found for: TSH, I1PXQIH, TT4 Lipids and HgbA1C: No results found for: CHLPL, HDL, CHOLHDL, LDLCHOL, LDLDIRECT, TRIG No results found for: HA1C Vit Lvls: No results found for: YEPIICLI27, SFOLATE UA: No results found for: GLUCOSEU, [...] and intent to nursing staff completing the Ninety Six Suicide rating scale but denied it was [...] Chief Complaint: 52 y.o. Male presents to [facility] Emergency Department with suicidal ideations and reported [...] Protective Factors: family and community support, protective cultural/hoahaoism beliefs and future orientation Access to Firearms: [...] WITH BIOPSY performed by KIRSTEN DAMON at [facility] ENDOSCOPY Family Medical/Psychiatric History: Unclear at this time Social History: Patient is retired. Currently . 2 adult kids. Has a brother who works in the alf system. Currently retired/disabled, but helps his with [...] pressured and profane ?? Language: fluent in cameroonian ?? Mood: fine ?? Affect: irritable and [...] INR Thyroid: No results found for: TSH, E0XROIG, TT4 Lipids and HgbA1C: No results found for: CHLPL, HDL, CHOLHDL, LDLCHOL, LDLDIRECT, TRIG No results found for: HA1C Vit Lvls: No results found for: [id number], SFOLATE UA: No results found for: GLUCOSEU, [...] a 52 y.o. Male who presents to [facility] with suicidal ideations with possible plan to [...] Office Visit Neurosurgery at [facility] [address] [place] [phone] Rosanna Clement MD [address] [place] [address] Chau Blackburn PA [address] [facility] [place] [address] 03/20/2024 10:00 AM EST Office Visit Ophthalmology at [facility] [place] [address] KodyTania, OD [facility] [place] [address] 12/23/2024 8:00 AM EDT Office Visit Ophthalmology at [facility] [place] [address] KodyTania, OD [facility] [place] [address] documented as of this encounter Procedures Procedure [...] Glucose, POC 141 65 - 199 mg/dL [facility] Comment: Supplemental ranges: <140 mg/dL before meals <180 mg/dL all other times of the day Blood specimen (specimen) 07/05/2018 8:12 AM EDT 07/05/2018 8:12 AM EDT Mihai Crain MD POINT OF CARE JENNIFER T ORDERABLES Performing Organization Address [facility]/ZIP Co de Phone Number [facility] [place] [address] * POCT Glucose (07/04/2018 11:51 PM EDT) Glucose, POC 145 65 - 199 mg/dL [facility] Comment: Supplemental ranges: <140 mg/dL before meals <180 mg/dL all other times of the day Blood specimen (specimen) 07/04/2018 11:51 PM EDT 07/04/2018 11:51 PM EDT Emergency Dept POINT OF CARE TEST ORDERABLES Performing Organization Address City/[facility]/ZIP Co de Phone Number [facility] [place] [address] * EKG 12 Lead (07/04/2018 10:00 PM EDT) Ventricular rate 84 BPM MUSE SYSTEM Atrial Rate 84 BPM MUSE SYSTEM P-R Interval 170 ms MUSE SYSTEM QRS Duration 104 ms MUSE SYSTEM Q-T Interval 368 ms MUSE SYSTEM QTC Calculated (Bezet) 434 ms MUSE SYSTEM Calculated P Olden 61 degrees MUSE SYSTEM Calculated R Olden 48 degrees MUSE SYSTEM Calculated T Olden 22 degrees MUSE SYSTEM INTERPRETATION Normal sinus rhythm Normal ECG When compared with ECG of 04-APR-2017 00:04, No significant change was found Confirmed by MD Galan Timothy ([id number]) on 07/05/2018 8:06:52 AM MUSE SYSTEM 07/04/2018 10:0 0 PM EDT 07/05/2018 8:06 AM EDT Ruth Velazquez MD ECG ORDERABLES Performing Organization Address City/[facility] Co de Phone Number MUSE SYSTEM * Salicylate (07/04/2018 9:47 PM EDT) Salicylate <20 mg/L [facility] Comment: Therapeutic Range: ??< 200 mg/L [...] MD CHEMISTRY ORDERABLE S Performing Organization Address [facility] de Phone Number [facility] [place] [address] * (ABNORMAL) Acetaminophen level (07/04/2018 9:47 PM EDT) Acetamin Lvl <5(L) 10 - 30 mg/L [facility] Comment: Levels >150 mg/L at 4 hours post ingestion or >75 mg/L at 8 hours post ingestion are often an indication for N-Acetylcysteine. Blood specimen (specimen) 07/04/2018 9:47 PM EDT 07/04/2018 9:47 PM EDT Narrative Resulting Agency Comment Spec In Lab Ruth Velazquez MD CHEMISTRY ORDERABLE S Performing Organization Address [facility] Co de Phone Number [facility] [place] [address] * Blue Tube HOLD (07/04/2018 9:00 PM EDT) Pathologist [facility] Blue Hold Sample in lab. [facility] Blood specimen (specimen) Venous Draw / Unknown 07/04/2018 9:00 PM EDT 07/04/2018 9:07 PM EDT Devon WALTON HEMATOLOGY ORDERABLE S [facility] [place] [address] * (ABNORMAL) Differential, Automated (07/04/2018 9:00 PM EDT) [facility] Neutrophil % 68.8 % [facility] Neutrophil Absolute 7.03(H) 1.70 - 6.10 x10(3)/mc L [facility] Lymph % 25.7 % [facility] Lymphocytes Abs 2.6 0.9 - 3.2 x10(3)/mc L [facility] Monocyte % 3.8 % [facility] Monocyte Abs 0.4 0.3 - 0.9 x10(3)/mc L [facility] Eos % 0.5 % [facility] Eosinophils Abs 0.0 0.0 - 0.4 x10(3)/mc L [facility] Basophil % 0.4 % [facility] Baso Absolute 0.0 0.0 - 0.1 x10(3)/mc L [facility] Immature Gran % 0.80 % [facility] Comment: Immature granulocytes(IG's)percentage and absolute count will include metamyelocytes, myelocytes, and promyelocytes. Blood smears from CBCs yielding IG's will be scanned manually for concordance. If this scan disagrees with the automated IG or if promyelocytes are noted, a manual differential will be performed. Immature Gran Absolute 0.08(H) 0.00 - 0.04 x10(3)/mc L [facility] Blood specimen (specimen) 07/04/2018 9:00 PM EDT 07/04/2018 9:07 PM EDT Narrative Resulting Agency Comment Spec In Lab Devon WALTON HEMATOLOGY ORDERABLE S [facility] [place] [address] * (ABNORMAL) Hemogram (07/04/2018 9:00 PM EDT) White Blood Cell 10.2(H) 4.0 - 9.5 x10(3)/[facility] Red Blood Cell 5.33 4.58 - 5.54 x10(6)/[facility] Hemoglobin 16.5 13.7 - 16.5 gm/dL [facility] Hematocrit 46.9 40.5 - 48.5 % [facility] Mean Cell Volume 88.0 82.9 - 93.1 fL [facility] Mean Cell Hemoglobin 31.0 27.5 - 32.1 pg [facility] Mean Cell Hemoglobin Concentration 35.2 32.0 - 35.7 gm/dL [facility] Platelet 264 145 - 357 x10(3)/[facility] RDW Standard Deviation 37.7 36.0 - 45.0 [facility] RDW coefficient of variation 11.8 11.4 - 13.8 % [facility] Mean Platelet Volume 9.1 7.6 - 12.9 [facility] NRBC% auto 0.0 % [facility] NRBC Absolute 0.000 0.000 - 0.000 x10(3)/[facility] Blood specimen (specimen) 07/04/2018 9:00 PM EDT 07/04/2018 9:07 PM EDT Narrative Resulting Agency Comment Spec In Lab Devon WALTON HEMATOLOGY ORDERABLE S Performing Organization Address [facility] Co de Phone Number [facility] [place] [address] * Hepatic Function Panel (07/04/2018 9:00 PM EDT) [facility] Protein, Total 7.1 6.1 - 8.0 gm/dL [facility] Albumin 4.1 3.2 - 5.2 gm/dL [facility] Aspartate Aminotransferase 19 0 - 39 unit/L [facility] Alanine Aminotransferase 31 0 - 55 unit/L [facility] Alkaline Phosphatase 83 40 - 120 unit/L [facility] Bilirubin, Total 0.3 0.2 - 1.3 mg/dL [facility] Bilirubin, Direct 0.1 0.0 - 0.3 mg/dL [facility] Blood specimen (specimen) 07/04/2018 9:00 PM EDT 07/04/2018 9:07 PM EDT Narrative Resulting Agency Comment Spec In Lab Ruth Velazquez MD CHEMISTRY ORDERABLE S Performing Organization Address [facility] Phone Number [facility] [place] [address] * (ABNORMAL) Ethanol Level (07/04/2018 9:00 PM EDT) [facility] Ethanol 1,337(H) <=99 mg/L [facility] Comment: Greater than 800 mg/L (0.08%) should be considered intoxicated. 3400 to 4500 mg/L (0.34 - 0.45%) is considered severe intoxication. Greater than 5500 mg/L (0.55%) is usually fatal. Blood specimen (specimen) 07/04/2018 9:00 PM EDT 07/04/2018 9:07 PM EDT Narrative Resulting Agency Comment Spec In Lab Ruth Velazquez MD CHEMISTRY ORDERABLE S Performing Organization Address [facility]/State/ZIP Co de Phone Number [facility] [address] * (ABNORMAL) Basic Metabolic Panel (non-fasting) (07/04/2018 9:00 PM EDT) Glucose 279(H) 65 - 199 mg/dL [facility] Comment:Diabetes: >=200 mg/d L plus symptoms Blood Urea Nitrogen 17 10 - 20 mg/dL [facility] Creatinine 1.27 0.80 - 1.50 mg/dL [facility] Sodium 138 135 - 145 mmol/L [facility] Potassium 3.9 3.5 - 5.0 mmol/L [facility] Comment: Please note: ??Patients with WBC >100,000 may have falsely elevated Potassium levels. ??For accurate Potassium quantification in these patients send serum separator tube (gold top) for subsequent determinations. ??Contact the Clinical Chemistry Laboratory if there are any questions. Chloride 100 98 - 107 mmol/L [facility] Carbon Dioxide 21(L) 22 - 31 mmol/L [facility] Anion Gap 17(H) 5 - 15 mmol/L [facility] Calcium 9.8 8.5 - 10.5 mg/dL [facility] [...] of body mass or the acutely ill. [email or web address]/[facility]ANYnkf eGFR 75 >=60 mL/min/1. 73 m?? [facility] Comment: The eGFR was calculated using the CKD-EPI equation. As with all creatinine based estimates of kidney function, eGFR values calculated with the CKD-EPI equation are not accurate in patients with acute kidney failure, extremes of body mass or the acutely ill. [email or web address]/DHnkf Blood specimen (specimen) 07/04/2018 9:00 PM EDT 07/04/2018 9:07 PM EDT Narrative Resulting Agency Comment Spec In Lab Ruth Velazquez MD CHEMISTRY ORDERABLE S [facility] [place] [address] * (ABNORMAL) Rapid Drug Screen w/o Confirmation, Urine (07/04/2018 8:48 PM EDT) Barbiturates Screen, Urine None Detected None Detected [facility] Comment: The barbiturate screen [...] Benzodiazepines Screen, Urine None Detected None Detected [facility] Comment: The benzodiazepines screen [...] Cocaine Screen, Urine None Detected None Detected [facility] Comment: The cocaine metabolites screen detects benzoylecgonine (Cocaine Metabolite) at concentrations >150 ng/mL. A ? Presumptive Positive? result indicates that the screening result was positive but has not yet been confirmed by a highly-specific method. As with any screen, occasional false positive results from cross-reacting substances may occur. Not for Medico-Legal Purposes. Methadone Metabolites Screen, Urine None Detected None Detected [facility] Comment: The methadone metabolite screen detects EDDP (major methadone metabolite) at concentrations >100 ng/mL. A ? Presumptive Positive? result indicates that the screening result was positive but has not yet been confirmed by a highly-specific method. As with any screen, occasional false positive results from cross-reacting substances may occur. Not for Medico-Legal Purposes. Opiate Screen, Urine None Detected None Detected [facility] Comment: The opiates screen [...] Cannabinoid Screen, Urine None Detected None Detected [facility] Comment: The marijuana metabolites screen detects the THC metabolite (87-bid-1-carboxy-delta 9-THC) at concentrations >20 ng/mL. A ? Presumptive Positive? result indicates that the screening result was positive but has not yet been confirmed by a highly-specific method. As with any screen, occasional false positive results from cross-reacting substances may occur. Not for Medico-Legal Purposes. Oxycodone Screen, Urine None Detected None Detected [facility] Comment: The oxycodone screen detects oxycodone and oxymorphone at concentrations >100 ng/mL. A ? Presumptive Positive? result indicates that the screening result was positive but has not yet been confirmed by a highly-specific method. As with any screen, occasional false positive results from cross-reacting substances may occur. Not for Medico-Legal Purposes. Buprenorphine Screen, Urine None Detected None Detected [facility] Comment: The buprenorphine screen detects buprenorphine at concentrations >5 ng/mL. A ? Presumptive Positive? result indicates that the screening result was positive but has not yet been confirmed by a highly-specific method. As with any screen, occasional false positive results from cross-reacting substances may occur. Not for Medico-Legal Purposes. Fentanyl Screen, Urine None Detected None Detected [facility] Comment: The fentanyl screen detects fentanyl at concentrations >2 ng/mL. A ? Presumptive Positive? result indicates that the screening result was positive but has not yet been confirmed by a highly-specific method. As with any screen, occasional false positive results from cross-reacting substances may occur. Not for Medico-Legal Purposes. Tricyclics Screen, Urine None Detected None Detected [facility] Comment: The tricyclics screen [...] Purposes. Ethanol Screen, Urine Positive(A) None Detected [facility] Comment:This urine ethanol a ssay detects ethanol at concentrations >/= 100 mg/L. Amphetamines Screen, Urine None Detected None Detected [facility] Comment: The amphetamine screen detects d-amphetamine and d-methamphetamine at concentrations >300 ng/mL. A ? Presumptive Positive? result indicates that the screening result was positive but has not yet been confirmed by a highly-specific method. As with any screen, occasional false positive results from cross-reacting substances may occur. Not for Medico-Legal Purposes. Adulterants Screen, Urine Suspected(A ) None Detected [facility] Comment: An adulteration screen [...] Spec In Lab Devon WALTON CHEMISTRY ORDERABLES [facility] [place] [place] [address] * Rapid Drug Screen, Urine (AMYCO Request) (07/04/2018 8:48 PM EDT) MAYCO Conf Requested No [facility] MAYCO Requested See Comment [facility] Comment:Refer to Rapid Drug Screen w/o Confirmation, Urine for results. Urine specimen (specimen) 07/04/2018 8:48 PM EDT 07/04/2018 8:58 PM EDT Narrative Resulting Agency Comment Spec In Lab Ruth Velazquez MD URINE ORDERABLES [facility] [place] [address] documented in this encounter Visit Diagnoses Diagnosis [...] dose, Starting on Mon07/04/18 at 2305, Until Mon07/05/18 at 1603, [...] PRN, Starting on Mon07/04/18 at 2318, Until Mon07/05/18 at 1603, alcohol/benzodiazepine withdrawal- uncomplicated, Per assessment [...] dose if patient is not eating., Routine 2348 (Given - Provider: Daniel Hernandez III, RN) 0100 (Not Given - Provider: Daniel Hernandez III, GUILLAUME - Reason: See comment - Comment: given [...] on Mon07/04/18 at 2330, Until Discontinued, Routine 2348 (Given - Provider: Daniel Hernandez III, RN) 0918 (Given - Provider: Sandy Segura RN) metoprolol succinate (TOPROL-XL) XL tablet 25 mg 25 mg, Oral, DAILY, First dose on Mon07/05/18 at 0900, Until Discontinued, DO NOT CRUSH OR OPEN, Routine 09 (Given - Provid er: Sandy Segura RN) [...] (Given - Provider: Daniel Hernandez III, RN) predniSONE (DELTASONE) tablet 30 mg 30 mg, [...] 2 mL as a single injection., Routine 2347 (Not Given - Provider: Daniel Hernandez [...]
--- OUTSIDE RECORDS SUMMARY | 2023-12-10 00:45 | XMS_ITS | Encounter Summary ---
Author Organization [facility] [place] [address] Care Team Providers Care Attending Ambulatory Care Name Role Phone Unavailable Primary Care Provider Unavailabl e Encounter Details Date Type Department Care Team (Late st Contact Info) Description 09/27/2018 8:00 AM EDT - 09/27/2018 8:30 AM EDT Surgery [place] [phone] Luc Hdz MD [facility] [place] [address] UPPER GASTROINTESTINAL ENDOSCOPY,WITH BIOPSY SINGLE OR MULTIPLE [...] - 09/27/2018 8:16 AM EDT Please call [phone] before 8pm Mon-Fri with problems, questions or concerns. If you call after 8pm or on weekends, call the Hospital at [phone] and ask to speak to the Club Room Attendant crane ladle person and the double surface operator will contact that person for you. * Attachments The following attachments cannot be sent through Care Everywhere. * EGD (Upper Endoscopy): Post-op (Syrian) documented in this encounter Medications at Time [...] 9:45 AM EDT Office Visit Neurosurgery at [facility] [address] [place] [address] Rosanna Clement MD [address] [facility] [place] [address] Chau Blackburn PA [facility] [address] 03/20/2024 10:00 AM EST Office [place] [phone] Tania Gates, [facility] [place] [address] 12/23/2024 8:00 AM EDT Office [place] [address] Tania Gates, [facility] [place] [address] documented as of this encounter Procedures Procedure [...] to follow Luc Hdz MD PATHOLOGY/CYTOLOGY O RDLENARD Performing Organization Address [facility]/ZIP Co de Phone Number [facility] [place] [address] * Specimen to Pathology (09/27/2018 8:12 AM EDT) AP Specimen 09/27/2018 8:12 AM EDT 09/27/2018 8:12 AM EDT Narrative [facility] - 09/27/2018 8:12 AM EDT Specimen requisition ordered. ??Separate Pathology report to follow Luc Hdz MD PATHOLOGY/CYTOLOGY O RDLENARD [facility] [place] [address] * Surgical Pathology Report (09/27/2018 8:05 AM EDT) Final Diagnosis [id number] ? Location: 4T; EA09; A The signing pathologist has (i) [...] [facility] Dept. of Pathology, [place], [place] CLINICAL INFORMATION Specimen Submitted: A - [...] AM EDT Luc Hdz MD PATHOLOGY/CYTOLOGY O SAEID Performing Organization Address City/[facility]/ZIP Co de Phone Number [facility] [place] [address] * POCT Glucose (09/27/2018 7:49 AM EDT) Glucose, POC 124 65 - 199 mg/dL [facility] Comment: Supplemental ranges: <140 mg/dL before meals <180 mg/dL all other times of the day Blood specimen (specimen) 09/27/2018 7:49 AM EDT 09/27/2018 7:49 AM EDT Luc Hdz MD POINT OF CARE TEST O SAEID Performing Organization Address [facility]/ZIP Co de Phone Number [facility] [place] [address] * UPPER GI ENDOSCOPY (09/27/2018 7:40 AM EDT) UPPER GI ENDOSCOPY [facility] Procedure Date: 09/27/2018 7:40 AM ? Patient Name: Samy Patricio ? N: [id number] ? Date of : 1965 ? Age: 52 ? Order #: [id number] ? Instrument Name: [facility]-[id number] ? Procedure: ? Upper GI endoscopy Indications: ? Short segment of Diaz's, on ? Protonic, bloating Providers: ? Luc Hdz MD, Jyoti Castillo ? Sharmila, GUILLAUME, Aleena Santoyo MD: ?Abi Lazaro Medicines: ? [...] PROVATION 09/27/2018 7:40 AM EDT Abi Lazaro [employer] GENERAL SURGICAL ORDERABLES PROVATION documented in this [...]
--- OUTSIDE RECORDS SUMMARY | 2023-12-10 00:45 | XMS_ITS | Encounter Summary ---
[place] [address] Care Team Providers Care Business Editor Name Role Phone Sae Marr MD Primary Care Provider [phone] Encounter Details Date Type Department Care Team (Late st Contact Info) Description 08/06/2019 Notes Only Cardiology at [address] [address] Antonina Merino MD [facility] [place] [address] Social History Tobacco Use Types Packs/Day Years [...] 9:45 AM EDT Office Visit Neurosurgery at [facility] [place] [phone] Rosanna Clement [place] [address] Chau Blackburn PA [address] [place] [address] 03/20/2024 10:00 AM EST Office [place] [address] Tania Gates, [facility] [place] [address] 12/23/2024 8:00 AM EDT Office [place] [phone] Tania Gates, [facility] [address] documented as of this encounter Visit Diagnoses Not on filedocumented in this encounter Care Teams Business Editor Relationship Specialty Start Date End Date Sae Marr MD PCP - General General Internal Medicine 08/06/19 9/3 documented as of this encounter
--- OUTSIDE RECORDS SUMMARY | 2023-12-10 00:45 | XMS_ITS | Encounter Summary ---
Author Organization [facility] [place] [address] Care Team Providers Care Inhalation Therapy Aides Teacher Name Role Phone Sae Marr MD Primary Care Provider [phone] Reason for Referral * Consultation (Routine) - Specialty Diagnoses / Procedures Referred By Contac t Referred To Contact Cardiology Diagnoses ST elevation myocardial infarction involving right coronary artery Philip Johnson MD [facility] [place] [address] Yuliya Gtz MD [address] [place] [address] [place] [address] Referral ID Status Reason Start Date Expiration Date V isits Requested Visits Authorized [id number] Consult, Test & Treat 08/07/2019 02/03/2020 1 1 * Consultation (Routine) - Closed Specialty Diagnoses / Procedures Referred By Contact Referred To Contact Cardiac Rehabilitation Diagnoses ST elevation myocardial infarction (STEMI), unspecified artery Tariq Guerrero MD [facility] [place] [address] Cardiac Rehab, [address] [place] [address] Referral ID Status Reason Start Date Expiration Date V isits Requested Visits Authorized [id number] Closed Consult, Test & Treat 08/07/2019 02/03/2020 36 36 Reason for Visit * Reason Comments Hospital Transfer Chest Pain * Auth/Cert Specialty Diagnoses / Procedures Referred By Contac t Referred To Contact Diagnoses STEMI (ST elevation myocardial infarction) ST elevation myocardial infarction (STEMI), unspecified artery STEMI Referral ID Status Reason Start Date Expiration Date Visits Re quested Visits Authorized [id number] 1 1 Encounter Details Date Type Department Care Team (Latest Contact Info) Description 08/06/2019 1:58 AM EDT - 08/07/2019 6:17 PM EDT Hospital Encounter [place] [address] Tiffanie Espino MD [facility] DR EMERGENCY MEDICINE [place] [id number] Tariq Guerrero MD [facility] [place] [address] ST elevation myocardial infarction (STEMI), unspecified artery; [...] CARE - SAE MARR MD, August - [[phone]] - Please follow up with patient regarding his recent hospitalization for Inferior STEMI, s/p EDEN toRCA. - Please assess when appropriate to initiate Lisinopril; recommend BMP in the next 5-7 days to ensure that renal function is stable. - Please continue to certified substance abuse counselor regarding smoking cessation; he has been discharged with a Nicotine Patch. - Please consider referral to Sleep Medicine for Sleep Study; patient noted to have 3 L QHS oxygen requirement due to episodic desaturations. - LVEDP was 21 on [facility] - please assess need for maintenance [...] a NicotinePatch. - LVEDP was 21 on [facility] - please assess need for maintenance [...] compared to ticagrelor or plavix, reducing stroke, PA and (NEJM 2019). ?? Give plavix 75 [...] prompted his to call 911. Per the band log mill and carriage operator's instructionshe took SLN x3, but did [...] ?? He was transferred [place] [facility] [place]. On arrival [place] [facility] he had continued chest pain, but his EKG changes had resolved. He was on 1.5 of epi with heart rates in the 80s and blood pressures in the 110s/50s. He was taken immediately to the corn lab technician where he had a EDEN placed to his proximal RCA. He was weaned off of epinephrine in the corn lab technician and transferred to the CSCU. ?? [...] AND TEST, RAMIRO; TECHRAMIRO Ophthalmology at [facility] Arrive at: Build Engineer Area 4B [phone] Future Orders Complete By Expires Referral to Cardiac Rehab [[id number] Custom] As directed Process Instructions: If no [...] appointments: During 8am-5pm Monday through Monday call [phone] to speak with a nurse in the cardiology clinic All other times call [phone] and ask to speak to the hide and skin processing worker photovoltaic installation technician. Activity level: - No heavy lifting [...] 02/11/2020 8:40 AM Tania Gates OD [facility] [place] [facility] Follow-Up Appointments Date and Time Provider and Specialty Location August 18 8:40am LEE HALL [facility] September 04 YULIYA GTZ MD [place], [place] It Telecom Technician: Yuliya Gtz MD at [phone] PCP: Sae Marr MD at [phone] Your Primary Care Provider: Sae Marr MD [address] [place] [id number] For questions regarding issues relating to your hospitalization on the Hospital Medicine Service, please contact your inpatient physician through the [facility] General Warehouse Worker [phone]. Issues after hours and on weekends will be handled by the Hospitalist staff on-call. For questions regarding this document or issues relating to this hospitalization on the Medical Service, please contact your inpatient physician through the [facility] [place] Warehouse Worker . Issues afterhours and on weekends will be handled by the It Telecom Technician staff on-call. documented in this encounter Discharge [...] appointments: During 8am-5pm Monday through Monday call [phone] to speak with a nurse in the cardiology clinic All other times call [phone] and ask to speak to the hide and skin processing worker photovoltaic installation technician. Activity level: - No heavy lifting [...] 02/11/2020 8:40 AM Tania Gates OD [facility] [place] [facility] [facility] Follow-Up Appointments Date and Time Provider and Specialty Location August 18 8:40am ELE AHLL [facility] September 04 YULIYA GTZ MD [place], [place] It Telecom Technician: Yuliya Gtz MD at [phone] PCP: Sae Marr MD at [phone] Your Primary Care Provider: Sae Marr MD [address] [place] [phone] For questions regarding issues relating to your hospitalization on the Hospital Medicine Service, please contact your inpatient physician through the [facility] [place] Warehouse Worker [phone]. Issues after hours and on weekends will be handled by the Hospitalist staff on-call. * Attachments The following attachments cannot be sent through Care Everywhere. * Smoking: Stopping ([place]) * Smoking: Anti-Smoking Medication: Deciding About ([place]) * Smoking Cessation: Health Benefits: General Info ([place]) * Cardiac Rehabilitation ([place]) * Heart Attack: Medicine for Secondary Prevention ([place]) * PCI (Percutaneous Coronary Intervention): Post-op ([place]) documented in this encounter Medications at Time [...] S/P TNK prior to transfer to [facility] - S/P Prasugrel & ASA load followed by maintenance ASA 81 mg & Prasugrel 10 mg - LVEDP 21 in the Certified Retinal Angiographer - Prior to Cardiac Catheterization, noted to [...] was high. - F/u with PCP for emt intermediate DM control. 3. COPD - Duoneb q4h [...] diuretic. Drew Damon MD 08/07/2019 Cardiology S2, 8085 Associated attestation - Tariq Guerrero MD - [...] PCP: Sae Marr MD PCP phone #: [phone] ID/Chief Complaint: Inferior STEMI History of Present [...] prompted his to call 911. Per the band log mill and carriage operator's instructionshe took SLN x3, but did [...] epinephrine. He was transferred to the [facility] [place] for [place]. On arrival to [facility] he had continued chest pain, but his EKG changes had resolved. He was on 1.5 of epi with heart rates in the 80s and blood pressures in the 110s/50s. He was taken immediately to the corn lab technician where he had a EDEN placed to his proximal RCA. He was weaned off of epinephrine in the corn lab technician and transferred to the CSCU. In [...] daily. ??? lancets 33 gauge Misc Lancets [facility] USE DIRECTED. Active ??? 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 Invalid input(s): [id number] Heme: No results for input(s): LDH, HAPTOGLOBIN, [...] Admit to Cardiology, S2 Team Pager # [phone] #CAD #inferior STEMI - s/p asa 324 [...] cardiology and will be rushed to the Certified Retinal Angiographer. Review of Systems: Review of Systems Constitutional: [...] by cardiology and was rushed to the Certified Retinal Angiographer. No infectious symptoms concerning for COVID. Mendoza [...] in a few sessions of cardiac rehab [facility] in 2018 s/p PCI. 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 No problem w/ADL's Living Situation: lives w/spouse in a single level w/3STE and also has a camp w/2STE Physical Address [address] [place] [address] [place] [address] Supports: Lives w/ and [id number] who are both supportive. Also has friends [...] home via car w/ when medically ready. safety advisor/Electronic Imager will continue to follow patient???s progress and remain available if situation changes for coordination of care, psychosocial support and/or discharge planning. Kareen Samayoa RN Pager [phone] * Plan of Care - Natalia Renee [...] concerns. Thank you. Bryn Guevara, MSN, RN-, [facility] Tobacco Chemist Instrumentation [facility] Pager #[phone] * Plan of Care - Daniel Sands [...] MD - 08/06/2019 3:50 AM EDT [facility] Oper[place] Note Patient Name: Samy Patricio Jr. : [id number] MR#: [id number] Case Date: 08/06/2019 Surgeon: Surgeon(s) and Role: [...] compared to ticagrelor or plavix, reducing stroke, PA and (NEJM 2019). Give plavix 75 mg [...] arrived via EMS from OSH for St[facility] corn lab technician. 3PM patient started to have chest pain continued to get worse. Took 3 SL nitro at home and EMS was called. documented in this encounter Plan of Treatment Upcoming Encounters Date Type Department Care Team (Late st Contact Info) Description 01/10/2024 9:45 AM EDT Office Visit Neurosurgery at [facility] [address] [place] [address] Rosanna Clement MD [address] [facility] [place] [address] Chau Blackburn PA [address] [facility] [place] [address] 03/20/2024 10:00 AM EST Office [place] [address] Tania Gates OD [facility] [place] [address] 12/23/2024 8:00 AM EDT Office [place] [phone] Tania Gates OD [facility] [place] [address] Scheduled Orders Name Type Priority Associated Diagnoses [...] (ABNORMAL) POCT Glucose (08/07/2019 4:53 PM EDT) [facility] Glucose, POC 286(H) 65 - 199 mg/dL [facility] Comment: Supplemental ranges: <140 mg/dL before meals <180 mg/dL all other times of the day Blood specimen (specimen) 08/07/2019 4:53 PM EDT 08/07/2019 4:53 PM EDT Tariq Guerrero MD POINT OF CARE TEST O RDERABLES [facility] [place] [address] * POCT Glucose (08/07/2019 1:55 PM EDT) Glucose, POC 178 65 - 199 mg/dL [facility] Comment: Supplemental ranges: <140 mg/dL before meals <180 mg/dL all other times of the day Blood specimen (specimen) 08/07/2019 1:55 PM EDT 08/07/2019 1:55 PM EDT Tariq Guerrero MD POINT OF CARE TEST O RDERABLES Performing Organization Address [facility] de Phone Number [facility] [place] [address] * CK (08/07/2019 12:05 PM EDT) [facility] Creatine Kinase 133 0 - 200 unit/L [facility] Blood specimen (specimen) 08/07/2019 12:05 PM EDT 08/07/2019 12:20 PM EDT Narrative Resulting Agency Comment Spec In Lab Tariq Guerrero MD CHEMISTRY ORDERABLES Performing Organization Address [facility] Phone Number [facility] [place] [address] * (ABNORMAL) POCT Glucose (08/07/2019 11:20 AM EDT) [facility] Glucose, POC 309(H) 65 - 199 mg/dL [facility] Comment: Supplemental ranges: <140 mg/dL before meals <180 mg/dL all other times of the day Blood specimen (specimen) 08/07/2019 11:20 AM EDT 08/07/2019 11:20 AM EDT Tariq Guerrero MD POINT OF CARE TEST O SAEID Performing Organization Address [facility] de Phone Number [facility] [place] [address] * EKG 12 Lead (08/07/2019 8:57 AM EDT) [facility] Ventricular rate 75 BPM MUSE SYSTEM Atrial Rate 75 BPM MUSE SYSTEM P-R Interval 176 ms MUSE SYSTEM QRS Duration 94 ms MUSE SYSTEM Q-T Interval 390 ms MUSE SYSTEM QTC Calculated (Bezet) 435 ms MUSE SYSTEM Calculated P Thoreau 67 degrees MUSE SYSTEM Calculated R [place] 47 degrees MUSE SYSTEM Calculated T Thoreau -5 degrees MUSE SYSTEM INTERPRETATION Normal sinus rhythm T wave abnormality, consider inferior ischemia Abnormal ECG When compared with ECG of 06-AUG-2019 20:18, (unconfirmed) No significant change was found Confirmed by MD Yaima, Timothy Collins ([id number]) on 08/07/2019 5:14:03 PM MUSE SYSTEM 08/07/2019 8:57 AM EDT 08/07/2019 5:14 PM EDT Tiffanie Espino MD ECG ORDERABLES MUSE SYSTEM * POCT Glucose (08/07/2019 7:23 AM EDT) Glucose, POC 160 65 - 199 mg/dL [facility] Comment: Supplemental ranges: <140 mg/dL before meals <180 mg/dL all other times of the day Blood specimen (specimen) 08/07/2019 7:23 AM EDT 08/07/2019 7:23 AM EDT Tariq Guerrero MD POINT OF CARE TEST O RDERABLES Performing Organization Address [facility]/ZIP Co de Phone Number [facility] [place] [address] * CK (08/07/2019 5:53 AM EDT) Creatine Kinase 168 0 - 200 unit/L [facility] Blood specimen (specimen) Venous Draw / Unknown 08/07/2019 5:53 AM EDT 08/07/2019 6:07 AM EDT Narrative Resulting Agency Comment Spec In Lab Philip Johnson MD CHEMISTRY ORDERABLES Performing Organization Address City/[facility]/ZIP Co de Phone Number [facility] [place] [address] * (ABNORMAL) Troponin (08/07/2019 5:53 AM EDT) [facility] Troponin-T 0.50(H) 0.00 - 0.00 ng/mL [facility] Comment: The 99th percentile for Troponin T is less than 0.01 ng/mL, any detectable cTnT concentration using this assay should be considered elevated. According to the third universal definition of myocardial infarction the following criteria with a clinical presentation consistent with acute myocardial ischemia meets the diagnosis for a myocardial infarction (PA). Detection of a rise and/or fall of cTnT, with at least one value greater than the 99th percentile (> or = 0.01) and with at least one of the following ?? Symptoms of ischemia ?? New or presumed new significant IZ-khkodnj-R wave (ST-T) changes or new left bundle [...] additional sample may be indicated. Reference: Third [place] Definition of Myocardial Infarction. Journal of the [place] College [employer]iology 2012;60:1581-98 Blood specimen (specimen) 08/07/2019 5:53 AM EDT 08/07/2019 5:59 AM EDT Narrative Resulting Agency Comment Spec In Lab Tariq Guerrero MD CHEMISTRY ORDERABLES Performing Organization Address City/State/[facility] Co de Phone Number [facility] [place] [address] * Differential, Automated (08/07/2019 5:53 AM EDT) [facility] Neutrophil % 59.8 % [facility] Neutrophil Absolute 4.63 1.70 - 6.10 x10(3)/[facility] Lymph % 24.9 % [facility] Lymphocytes Abs 1.9 0.9 - 3.2 x10(3)/[facility] Monocyte % 8.5 % [facility] Monocyte Abs 0.7 0.3 - 0.9 x10(3)/[facility] Eos % 5.8 % [facility] Eosinophils Abs 0.4 0.0 - 0.4 x10(3)/[facility] Basophil % 0.5 % [facility] Baso Absolute 0.0 0.0 - 0.1 x10(3)/[facility] Immature Gran % 0.50 % [facility] Comment: Immature granulocytes(IG's)percentage and absolute count will include metamyelocytes, myelocytes, and promyelocytes. Blood smears from CBCs yielding IG's will be scanned manually for concordance. If this scan disagrees with the automated IG or if promyelocytes are noted, a manual differential will be performed. Immature Gran Absolute 0.04 0.00 - 0.04 x10(3)/[facility] Blood specimen (specimen) 08/07/2019 5:53 AM EDT 08/07/2019 5:59 AM EDT Narrative Resulting Agency Comment Spec In Lab Lovely Moise MD HEMATOLOGY ORDERABLE S Performing Organization Address City/State/[facility] Co de Phone Number [facility] [place] [address] * Hemogram (08/07/2019 5:53 AM EDT) White Blood Cell 7.8 4.0 - 9.5 x10(3)/[facility] Red Blood Cell 4.71 4.58 - 5.54 x10(6)/[facility] Hemoglobin 14.5 13.7 - 16.5 gm/dL [facility] Hematocrit 43.0 40.5 - 48.5 % [facility] Mean Cell Volume 91.3 82.9 - 93.1 fL [facility] Mean Cell Hemoglobin 30.8 27.5 - 32.1 pg [facility] Mean Cell Hemoglobin Concentration 33.7 32.0 - 35.7 gm/dL [facility] Platelet 181 145 - 357 x10(3)/[facility] RDW Standard Deviation 44.3 36.0 - 45.0 [facility] LABORATORY RDW coefficient of variation 13.1 11.4 - 13.8 % [facility] Mean Platelet Volume 9.6 7.6 - 12.9 [facility] LABORATORY NRBC% auto 0.0 % [facility] NRBC Absolute 0.000 0.000 - 0.000 x10(3)/[facility] Blood specimen (specimen) 08/07/2019 5:53 AM EDT 08/07/2019 5:59 AM EDT Narrative Resulting Agency Comment Spec In Lab Lovely Moise MD HEMATOLOGY ORDERABLE S Performing Organization Address [facility] Co de Phone Number [facility] [place] [address] * Magnesium (08/07/2019 5:53 AM EDT) Magnesium 0.86 0.69 - 1.07 mmol/L [facility] Blood specimen (specimen) 08/07/2019 5:53 AM EDT 08/07/2019 5:59 AM EDT Narrative Resulting Agency Comment Spec In Lab Tariq Guerrero MD CHEMISTRY ORDERABLES Performing Organization Address [facility] Co de Phone Number [facility] [place] [address] * (ABNORMAL) BMP w/fasting Glucose (08/07/2019 5:53 AM EDT) Glucose Fasting 152(H) 65 - 99 mg/dL [facility] [...] of Diabetes Mellitus, Position Statement from the [place] Diabetes Association. ??Diabetes Care, Volume 33, Supplement 1, Mar 2009 Blood Urea Nitrogen 14 10 - 20 mg/dL [facility] Creatinine 1.43 0.80 - 1.50 mg/dL [facility] Sodium 141 135 - 145 mmol/L [facility] Potassium 4.1 3.5 - 5.0 mmol/L [facility] Comment: Please note: ??Patients with WBC >100,000 may have falsely elevated Potassium levels. ??For accurate Potassium quantification in these patients send serum separator tube (gold top) for subsequent determinations. ??Contact the Clinical Chemistry Laboratory if there are any questions. Chloride 100 98 - 107 mmol/L [facility] Carbon Dioxide 30 22 - 31 mmol/L [facility] Anion Gap 11 5 - 15 mmol/L [facility] Calcium 8.9 8.5 - 10.5 mg/dL [facility] Est Glomerular Filtration Rate 56(L) >=60 mL/min/1. 73 m?? [facility] Comment: The eGFR was calculated using the CKD-EPI equation. As with all creatinine based estimates of kidney function, eGFR values calculated with the CKD-EPI equation are not accurate in patients with acute kidney failure, extremes of body mass or the acutely ill. http://[employer]/[facility] [place] [place] eGFR 65 >=60 mL/min/1. 73 m?? [facility] Comment: The eGFR was calculated using the CKD-EPI equation. As with all creatinine based estimates of kidney function, eGFR values calculated with the CKD-EPI equation are not accurate in patients with acute kidney failure, extremes of body mass or the acutely ill. http://[employer]/[facility] [place] Blood specimen (specimen) 08/07/2019 5:53 AM EDT 08/07/2019 5:59 AM EDT Narrative Resulting Agency Comment Spec In Lab Tariq Guerrero MD CHEMISTRY ORDERABLES Performing Organization Address [facility] Co de Phone Number [facility] [place] [address] * POCT Glucose (08/07/2019 4:16 AM EDT) Glucose, POC 120 65 - 199 mg/dL [facility] Comment: Supplemental ranges: <140 mg/dL before meals <180 mg/dL all other times of the day Blood specimen (specimen) 08/07/2019 4:16 AM EDT 08/07/2019 4:16 AM EDT Tariq Guerrero MD POINT OF CARE TEST O RDERABLES Performing Organization Address [facility] Co de Phone Number [facility] [place] [address] * (ABNORMAL) CK (08/07/2019 12:28 AM EDT) [facility] Creatine Kinase 220(H) 0 - 200 unit/L [facility] Blood specimen (specimen) 08/07/2019 12:28 AM EDT 08/07/2019 12:37 AM EDT Narrative Resulting Agency Comment Spec In Lab Tariq Guerrero MD CHEMISTRY ORDERABLES Performing Organization Address [facility] Co de Phone Number [facility] [place] [address] * (ABNORMAL) Troponin (08/07/2019 12:28 AM EDT) [facility] Troponin-T 0.62(H) 0.00 - 0.00 ng/mL [facility] Comment: The 99th percentile for Troponin T is less than 0.01 ng/mL, any detectable cTnT concentration using this assay should be considered elevated. According to the third universal definition of myocardial infarction the following criteria with a clinical presentation consistent with acute myocardial ischemia meets the diagnosis for a myocardial infarction ([place]). Detection of a rise and/or fall of cTnT, with at least one value greater than the 99th percentile (> or = 0.01) and with at least one of the following ?? Symptoms of ischemia ?? New or presumed new significant VB-iebsxsz-U wave (ST-T) changes or new left bundle [...] additional sample may be indicated. Reference: Third [place] Definition of Myocardial Infarction. Journal of the [place] College of Cardiology 2012;60:1581-98 Blood specimen (specimen) 08/07/2019 12:28 AM EDT 08/07/2019 12:37 AM EDT Narrative Resulting Agency Comment Spec In Lab Tariq Guerrero MD CHEMISTRY ORDERABLES Performing Organization Address [facility] Co de Phone Number [facility] [place] [address] * (ABNORMAL) POCT Glucose (08/06/2019 11:26 PM EDT) [facility] Glucose, POC 216(H) 65 - 199 mg/dL [facility] Comment: Supplemental ranges: <140 mg/dL before meals <180 mg/dL all other times of the day Blood specimen (specimen) 08/06/2019 11:26 PM EDT 08/06/2019 11:26 PM EDT Tariq Guerrero MD POINT OF CARE TEST O RDERABLES Performing Organization Address [facility]/ZIP Co de Phone Number [facility] [place] [address] * EKG 12 Lead (08/06/2019 8:18 PM EDT) [facility] Ventricular rate 81 BPM MUSE SYSTEM Atrial Rate 81 BPM MUSE SYSTEM P-R Interval 178 ms MUSE SYSTEM QRS Duration 96 ms MUSE SYSTEM Q-T Interval 368 ms MUSE SYSTEM QTC Calculated (Bezet) 427 ms MUSE SYSTEM Calculated P Thoreau 64 degrees MUSE SYSTEM Calculated R Thoreau 52 degrees MUSE SYSTEM Calculated T Thoreau 3 degrees MUSE SYSTEM INTERPRETATION Normal sinus rhythm Normal ECG When compared with ECG of 06-AUG-2019 06:13, (unconfirmed) No significant change was found Confirmed by MD Yaima, Timothy Collins ([id number]) on 08/07/2019 4:51:03 PM MUSE SYSTEM 08/06/2019 8:18 PM EDT 08/07/2019 4:51 PM EDT Tariq Guerrero MD ECG ORDERABLES Performing Organization Address City/[facility]/ZIP Co de Phone Number MUSE SYSTEM * POCT Glucose (08/06/2019 7:59 PM EDT) [facility] Glucose, POC 193 65 - 199 mg/dL [facility] Comment: Supplemental ranges: <140 mg/dL before meals <180 mg/dL all other times of the day Blood specimen (specimen) 08/06/2019 7:59 PM EDT 08/06/2019 7:59 PM EDT Tariq Guerrero MD POINT OF CARE TEST O RDERABLES Performing Organization Address [facility] Co de Phone Number [facility] [place] [address] * (ABNORMAL) CK (08/06/2019 6:13 PM EDT) [facility] Signature Creatine Kinase 301(H) 0 - 200 unit/L [facility] Blood specimen (specimen) 08/06/2019 6:13 PM EDT 08/06/2019 7:04 PM EDT Narrative Resulting Agency Comment Spec In Lab Tariq Guerrero MD CHEMISTRY ORDERABLES Performing Organization Address [facility] Co de Phone Number [facility] [place] [address] * (ABNORMAL) Troponin (08/06/2019 6:13 PM EDT) Troponin-T 0.84(H) 0.00 - 0.00 ng/mL [facility] Comment: The 99th percentile for Troponin T is less than 0.01 ng/mL, any detectable cTnT concentration using this assay should be considered elevated. According to the third universal definition of myocardial infarction the following criteria with a clinical presentation consistent with acute myocardial ischemia meets the diagnosis for a myocardial infarction (PA). Detection of a rise and/or fall of cTnT, with at least one value greater than the 99th percentile (> or = 0.01) and with at least one of the following ?? Symptoms of ischemia ?? New or presumed new significant PA-qcwhkle-F wave (ST-T) changes or new left bundle [...] additional sample may be indicated. Reference: Third [place] Definition of Myocardial Infarction. Journal of the [place] College [employer] 2012;60:1581-98 Blood specimen (specimen) 08/06/2019 6:13 PM EDT 08/06/2019 7:04 PM EDT Narrative Resulting Agency Comment Spec In Lab Tariq Guerrero MD CHEMISTRY ORDERABLES [facility] [place] [address] * POCT Glucose (08/06/2019 4:18 PM EDT) Glucose, POC 105 65 - 199 mg/dL [facility] Comment: Supplemental ranges: <140 mg/dL before meals <180 mg/dL all other times of the day Blood specimen (specimen) 08/06/2019 4:18 PM EDT 08/06/2019 4:18 PM EDT Tariq Guerrero MD POINT OF CARE TEST O RDERABLES [facility] [place] [address] * Magnesium (08/06/2019 2:06 PM EDT) Magnesium 0.82 0.69 - 1.07 mmol/L [facility] Blood specimen (specimen) 08/06/2019 2:06 PM EDT 08/06/2019 2:18 PM EDT Narrative Resulting Agency Comment Spec In Lab Tariq Guerrero MD CHEMISTRY ORDERABLES Performing Organization Address [facility]/ZIP Co de Phone Number [facility] [place] [address] * Basic Metabolic Panel (non-fasting) (08/06/2019 2:06 PM EDT) Glucose 108 65 - 199 mg/dL [facility] Comment:Diabetes: >=200 mg/d L plus symptoms Blood Urea Nitrogen 12 10 - 20 mg/dL [facility] Creatinine 1.23 0.80 - 1.50 mg/dL [facility] Sodium 140 135 - 145 mmol/L [facility] Potassium 4.4 3.5 - 5.0 mmol/L [facility] Comment: Please note: ??Patients with WBC >100,000 may have falsely elevated Potassium levels. ??For accurate Potassium quantification in these patients send serum separator tube (gold top) for subsequent determinations. ??Contact the Clinical Chemistry Laboratory if there are any questions. Chloride 101 98 - 107 mmol/L [facility] Carbon Dioxide 26 22 - 31 mmol/L [facility] Anion Gap 13 5 - 15 mmol/L [facility] Calcium 9.3 8.5 - 10.5 mg/dL [facility] Est Glomerular Filtration Rate 67 >=60 mL/min/1. 73 m?? [facility] Comment: The eGFR was calculated using the CKD-EPI equation. As with all creatinine based estimates of kidney function, eGFR values calculated with the CKD-EPI equation are not accurate in patients with acute kidney failure, extremes of body mass or the acutely ill. http://[employer]/DHMCnkf eGFR 78 >=60 mL/min/1. 73 m?? [facility] Comment: The eGFR was calculated using the CKD-EPI equation. As with all creatinine based estimates of kidney function, eGFR values calculated with the CKD-EPI equation are not accurate in patients with acute kidney failure, extremes of body mass or the acutely ill. http://[employer]/DHMCnkf Blood specimen (specimen) 08/06/2019 2:06 PM EDT 08/06/2019 2:18 PM EDT Narrative Resulting Agency Comment Spec In Lab Tariq Guerrero MD CHEMISTRY ORDERABLES Performing Organization Address [facility] Co de Phone Number [facility] [place] [address] * (ABNORMAL) CK (08/06/2019 12:05 PM EDT) Creatine Kinase 344(H) 0 - 200 unit/L [facility] Blood specimen (specimen) 08/06/2019 12:05 PM EDT 08/06/2019 12:15 PM EDT Narrative Resulting Agency Comment Spec In Lab Tariq Guerrero MD CHEMISTRY ORDERABLES Performing Organization Address [facility] Co de Phone Number [facility] [place] [address] * (ABNORMAL) Troponin (08/06/2019 12:05 PM EDT) Troponin-T 0.74(H) 0.00 - 0.00 ng/mL [facility] Comment: The 99th percentile for Troponin T is less than 0.01 ng/mL, any detectable cTnT concentration using this assay should be considered elevated. According to the third universal definition of myocardial infarction the following criteria with a clinical presentation consistent with acute myocardial ischemia meets the diagnosis for a myocardial infarction (PA). Detection of a rise and/or fall of cTnT, with at least one value greater than the 99th percentile (> or = 0.01) and with at least one of the following ?? Symptoms of ischemia ?? New or presumed new significant VR-yrbryin-G wave (ST-T) changes or new left bundle [...] additional sample may be indicated. Reference: Third [place] Definition of Myocardial Infarction. Journal of the [place] [employer]iology 2012;60:1581-98 Blood specimen (specimen) 08/06/2019 12:05 PM EDT 08/06/2019 12:15 PM EDT Narrative Resulting Agency Comment Spec In Lab Tariq Guerrero MD CHEMISTRY ORDERABLES Performing Organization Address City/[facility]/ZIP Co de Phone Number [facility] [place] [address] * POCT Glucose (08/06/2019 11:13 AM EDT) Pathologist [facility] Glucose, POC 106 65 - 199 mg/dL [facility] Comment: Supplemental ranges: <140 mg/dL before meals <180 mg/dL all other times of the day Blood specimen (specimen) 08/06/2019 11:13 AM EDT 08/06/2019 11:13 AM EDT Tariq Guerrero MD POINT OF CARE TEST O RDERABLES Performing Organization Address City/[facility]/ZIP Co de Phone Number [facility] [place] [address] * ECHO COMPLETE (08/06/2019 9:20 AM EDT) EF 64 HEARTLAB SYSTEM Anatomical Region Laterality Modality Other 08/06/2019 Narrative 08/06/2019 9:40 AM EDT Procedure: ?Transthoracic Echocardiogram Patient: ?GIDEON STAPLES S ?(Age): 1965(53y) Med Rec#: ? [id number] ?Sex: ?M ? Site Loc: ? [facility] ?Ht / Wt: ??183(cm)/120(kg) Pt. Loc: ?Adult Floor ? BSA: ?2.4 Study Date: ?? 08/06/2019 ?Pt. Type: Inpatient Tape: ? Referring: EARLE Reading: Jack Lucas ([id number]) Obstetrician: Peter Beaver RDCS, FASE Interpreting Fellow: Tiffanie Hernandez ([id number]) Diagnosis: *ST elevation (STEMI) myocardial infarction of [...] Vmax ?0.88 ? m/sec ? MV deceleration swrq214.89 ? msec ? MV A-wave Vmax ?0.85 [...] ? Mid-Inferior ?Normal ? Mid-Inferoseptal ?Normal ? Violet-Septal ? Normal ? Violet-Anterior ? Normal ? Violet-Lateral ?Normal ? Violet-Inferior ? Normal ? Violet-Tip ?Normal ? This report has been electronically signed by: Jack Lucas MD ? 08/06/2019 09:39:30 Images reviewed and interpretation verified [facility] Cardiac Ultrasound Laboratory Procedure Note Jack Lucas MD - 08/06/2019 Procedure: Transthoracic Echocardiogram Patient: GIDEON Oreilly (Age): 1965(53y) Med Rec#: [id number] Sex: M [place] [facility] [place]t / Wt: 183(cm)/120(kg) Pt. Loc: Adult Floor BSA: 2.4 Study Date: 08/06/2019 Pt. Type: Inpatient Tape: Referring: EARLE Reading: Jack Lucas ([id number]) Obstetrician: Peter Beaver RDCS, FASE Interpreting Fellow: Tiffanie Hernandez ([id number]) Diagnosis: *ST elevation (STEMI) myocardial infarction of [...] MV E-wave Vmax 0.88 m/sec MV deceleration ttjm434.89 msec MV A-wave Vmax 0.85 m/sec MV [...] Normal Mid-Posterolateral Normal Mid-Inferior Normal Mid-Inferoseptal Normal Violet-Septal Normal Violet-Anterior Normal Violet-Lateral Normal Violet-Inferior Normal Violet-Tip Normal This report has been electronically signed by: Jack Lucas MD 08/06/2019 09:39:30 Images reviewed and interpretation verified [facility] Cardiac Ultrasound Laboratory Tiffanie Espino MD ECHO ORDERABLES * POCT Glucose (08/06/2019 7:18 AM EDT) Glucose, POC 170 65 - 199 mg/dL [facility] Comment: Supplemental ranges: <140 mg/dL before meals <180 mg/dL all other times of the day Blood specimen (specimen) 08/06/2019 7:18 AM EDT 08/06/2019 7:18 AM EDT Tariq Guerrero MD POINT OF CARE TEST O RDERABLES [facility] [place] [address] * XR Chest One View (08/06/2019 6:52 [...] (Bezet) 442 ms MUSE SYSTEM Calculated P Thoreau 68 degrees MUSE SYSTEM Calculated R Thoreau 59 degrees MUSE SYSTEM Calculated T Thoreau 24 degrees MUSE SYSTEM INTERPRETATION Normal sinus rhythm Normal ECG When compared with ECG of 06-AUG-2019 02:05, (unconfirmed) No significant change was found I personally reviewed the tracing and edited the fellows interpretation Confirmed by fellow MD Dee, Jaylin Oviedo ([id number]) on 08/06/2019 1:18:49 PM Confirmed by MD Yaima, Timothy Collins ([id number]) on 08/07/2019 9:47:42 AM MUSE SYSTEM 08/06/2019 6:13 AM EDT 08/07/2019 9:47 AM EDT Tiffanie Espino MD ECG ORDERABLES Performing Organization Address City/[facility]/ZIP Co de Phone Number MUSE SYSTEM * Sedimentation rate (08/06/2019 5:35 AM EDT) Sedimentation Rate Automated 8 2 - 37 mm/hr [facility] Comment: Effective February 20, 2019 new capillary photometric technology has resulted in a change in reference ranges. It is recommended that each ESR result be reviewed with its own age appropriate reference range. Blood specimen (specimen) Venous Draw / Unknown 08/06/2019 5:35 AM EDT 08/06/2019 5:41 AM EDT Narrative Resulting Agency Comment Spec In Lab Philip Johnson MD HEMATOLOGY ORDERABLE S [facility] [place] [address] * CRP, acute inflammation (08/06/2019 5:35 AM EDT) [facility] C-Reactive Protein 4.3 <=4.9 mg/L [facility] Blood specimen (specimen) Venous Draw / Unknown 08/06/2019 5:35 AM EDT 08/06/2019 5:44 AM EDT Narrative Resulting Agency Comment Spec In Lab Philip Johnson MD CHEMISTRY ORDERABLES [facility] [place] [address] * (ABNORMAL) Differential, Automated (08/06/2019 5:35 AM EDT) [facility] Neutrophil % 73.5 % [facility] Neutrophil Absolute 6.30(H) 1.70 - 6.10 x10(3)/mc L [facility] Lymph % 16.2 % [facility] Lymphocytes Abs 1.4 0.9 - 3.2 x10(3)/mc L [facility] Monocyte % 5.5 % [facility] Monocyte Abs 0.5 0.3 - 0.9 x10(3)/mc L [facility] Eos % 3.6 % [facility] Eosinophils Abs 0.3 0.0 - 0.4 x10(3)/mc L [facility] Basophil % 0.6 % [facility] Baso Absolute 0.0 0.0 - 0.1 x10(3)/mc L [facility] Immature Gran % 0.60 % [facility] Comment: Immature granulocytes(IG's)percentage and absolute count will include metamyelocytes, myelocytes, and promyelocytes. Blood smears from CBCs yielding IG's will be scanned manually for concordance. If this scan disagrees with the automated IG or if promyelocytes are noted, a manual differential will be performed. Immature Gran Absolute 0.05(H) 0.00 - 0.04 x10(3)/ L [facility] Blood specimen (specimen) 08/06/2019 5:35 AM EDT 08/06/2019 5:41 AM EDT Narrative Resulting Agency Comment Spec In Lab Mendoza Richards MD HEMATOLOGY CASSI HU Performing Organization Address City/State/[facility] Co de Phone Number [facility] [place] [address] * (ABNORMAL) Hemogram (08/06/2019 5:35 AM EDT) White Blood Cell 8.6 4.0 - 9.5 x10(3)/[facility] LABORATORY Red Blood Cell 4.33(L) 4.58 - 5.54 x10(6)/[facility] LABORATORY Hemoglobin 13.4(L) 13.7 - 16.5 gm/dL [facility] Hematocrit 40.6 40.5 - 48.5 % [facility] Mean Cell Volume 93.8(H) 82.9 - 93.1 [facility] LABORATORY Mean Cell Hemoglobin 30.9 27.5 - 32.1 pg [facility] Mean Cell Hemoglobin Concentration 33.0 32.0 - 35.7 gm/dL [facility] Platelet 192 145 - 357 x10(3)/[facility] LABORATORY RDW Standard Deviation 45.2(H) 36.0 - 45.0 [facility] LABORATORY RDW coefficient of variation 13.2 11.4 - 13.8 % [facility] Mean Platelet Volume 9.5 7.6 - 12.9 [facility] LABORATORY NRBC% auto 0.0 % [facility] NRBC Absolute 0.000 0.000 - 0.000 x10(3)/ L [facility] Blood specimen (specimen) 08/06/2019 5:35 AM EDT 08/06/2019 5:41 AM EDT Narrative Resulting Agency Comment Spec In Lab Mendoza Richards MD HEMATOLOGY CASSI HU [facility] [address] [place] [address] * Lipid Panel (Reflex Direct LDL) (08/06/2019 5:35 AM EDT) Cholesterol, Total 89 mg/dL [facility] Comment: Lower Risk: <200 mg/dL Average Risk: 200-239 mg/dL Higher Risk: >lj=486 mg/dL Triglyceride 89 mg/dL [facility] Comment: Average Risk/Lower Risk: <150 mg/dL Borderline High Risk: 150-199 mg/dL High Risk: 200-499 mg/dL Very High Risk: >tu=015 mg/dL HDL Cholesterol 38 mg/dL [facility] Comment: Males: ?? Higher Risk: <40 mg/dL Females: ?? HIgher Risk: <50 mg/dL LDL Cholesterol 33 mg/dL [facility] Comment: Lowest Risk: <100 mg/dL Lower Risk: 100-129 mg/dL Borderline High Risk: 130-159 mg/dL High Risk: 160-189 mg/dL Very High Risk: >up=341 mg/dL Cholesterol/HDL Ratio 2.3 ratio [facility] Lipid Interpretation See Note [facility] Comment: Lipid management should be guided by a patient? s ASCVD risk, goals and preferences. ACC/AHA Guidelines recommend high intensity statin if clinical ASCVD or LDL greater than or equal to 190 mg/dL. http://[employer].com/DXS-WST-Kgidfypxx Adults aged 40-75 with LDL 70-189 mg/dL should have their 10 year ASCVD risk estimated with the ACC/AHA ASCVD risk boot and shoe laborer http://tools.acc.org/MCBSP-Tiis-Diyfvbcjh/ Statin should be discussed if risk greater [...] In Lab Tiffanie Espino MD CHEMISTRY ORDERABLES [facility] [place] [address] * (ABNORMAL) Hemoglobin A1c (08/06/2019 5:35 AM EDT) Hemoglobin A1c 6.3(H) 4.3 - 5.6 % [facility] Comment: Reference Range: 4.3 - [...] 1, S67-74 Estimated Average Glucose 135 mg/dL [facility] Comment: eAG equivalents for HbA1c [...] into estimated average glucose values. ??Diabetes Care 2008:31(8):4641-4362. Blood specimen (specimen) 08/06/2019 5:35 AM EDT 08/06/2019 5:41 AM EDT Narrative Resulting Agency Comment Spec In Lab Tiffanie Espino MD CHEMISTRY ORDERABLES [facility] [place] [address] * (ABNORMAL) Troponin (08/06/2019 5:35 AM EDT) Troponin-T 0.31(H) 0.00 - 0.00 ng/mL [facility] Comment: The 99th percentile for Troponin T is less than 0.01 ng/mL, any detectable cTnT concentration using this assay should be considered elevated. According to the third universal definition of myocardial infarction the following criteria with a clinical presentation consistent with acute myocardial ischemia meets the diagnosis for a myocardial infarction (PA). Detection of a rise and/or fall of cTnT, with at least one value greater than the 99th percentile (> or = 0.01) and with at least one of the following ?? Symptoms of ischemia ?? New or presumed new significant KA-xeghpcz-S wave (ST-T) changes or new left bundle [...] additional sample may be indicated. Reference: Third [place] Definition of Myocardial Infarction. Journal of the [place] College [employer]iology 2012;60:1581-98 Blood specimen (specimen) 08/06/2019 5:35 AM EDT 08/06/2019 5:41 AM EDT Narrative Resulting Agency Comment Spec In Lab Tiffanie Espino MD CHEMISTRY ORDERABLES [facility] [place] [address] * (ABNORMAL) Basic Metabolic Panel (non-fasting) (08/06/2019 5:35 AM EDT) Glucose 250(H) 65 - 199 mg/dL [facility] Comment:Diabetes: >=200 mg/d L plus symptoms Blood Urea Nitrogen 12 10 - 20 mg/dL [facility] Creatinine 1.26 0.80 - 1.50 mg/dL [facility] Sodium 138 135 - 145 mmol/L [facility] Potassium 4.5 3.5 - 5.0 mmol/L [facility] Comment: Please note: ??Patients with WBC >100,000 may have falsely elevated Potassium levels. ??For accurate Potassium quantification in these patients send serum separator tube (gold top) for subsequent determinations. ??Contact the Clinical Chemistry Laboratory if there are any questions. Chloride 103 98 - 107 mmol/L [facility] Carbon Dioxide 24 22 - 31 mmol/L [facility] Anion Gap 11 5 - 15 mmol/L [facility] Calcium 8.6 8.5 - 10.5 mg/dL [facility] Est Glomerular Filtration Rate 65 >=60 mL/min/1. 73 m?? [facility] Comment: The eGFR was calculated using the CKD-EPI equation. As with all creatinine based estimates of kidney function, eGFR values calculated with the CKD-EPI equation are not accurate in patients with acute kidney failure, extremes of body mass or the acutely ill. http://[employer]/DHMCnkf eGFR 76 >=60 mL/min/1. 73 m?? [facility] Comment: The eGFR was calculated using the CKD-EPI equation. As with all creatinine based estimates of kidney function, eGFR values calculated with the CKD-EPI equation are not accurate in patients with acute kidney failure, extremes of body mass or the acutely ill. http://[employer]/DHMCnkf Blood specimen (specimen) 08/06/2019 5:35 AM EDT 08/06/2019 5:41 AM EDT Narrative Resulting Agency Comment Spec In Lab Tiffanie Espino MD CHEMISTRY ORDERABLES Performing Organization Address [facility] de Phone Number [facility] [place] [address] * (ABNORMAL) POCT Glucose (08/06/2019 5:32 AM EDT) Glucose, POC 215(H) 65 - 199 mg/dL [facility] Comment: Supplemental ranges: <140 mg/dL before meals <180 mg/dL all other times of the day Blood specimen (specimen) 08/06/2019 5:32 AM EDT 08/06/2019 5:32 AM EDT Tariq Guerrero MD POINT OF CARE TEST O RDERABLES Performing Organization Address [facility] Phone Number [facility] [place] [address] * CARDIAC CATHETERIZATION (08/06/2019 4:38 AM EDT) Anatomical Region Laterality Modality Other Narrative 08/09/2019 2:54 PM EDT ?[facility] ? Cardiac Catheterization/Intervention Report ? Patient Name: Samy Patricio ? Procedure Date: 08/06/2019 ? A #: [id number] ? Primary Physician: Coylewrbrunilda, Jung J ? Case #: [id number] ? File Name: [id number] ? Catheterization Order Number: [id number] ? [facility] ? Final Report [place], [place] ? Patient Name: ? Samy Schaner ? ID#: ?[id number] ? : ?1965 ? Procedure Date: ? August 06, 2019 ? Case #: ? [id number] ? Room: ? 6 ? Case Physician: ? Jung Merino M.D. ?Start: ?02:39 ?Fellow: ? Jose Ellison M.D. ? Admission: ??08/06/2019 ? Discharge: ??08/07/2019 ? Referring Physician: ??Sae Marr M.D. ? Procedures: ?* Coronary Angiography ?* Left Heart Catheterization ?* Coronary Ultrasound ?* Coronary Stent Insertion ? Pre Case Status: ?These procedures were performed on an emergent basis. ? History ?Samy Ptaricio is a 53 year old man. He [...] was designated as ?ASA Class IV. The [facility] clinical frailty scale is 4: Vulnerable. ? Diagnostic Tests: ?Electrocardiography: ? EKG was assessed by ECG. EKG was Abnormal. EKG showed ST Deviation ? >= 0.5 mm. ?Medications Prior to Procedure: ? Angiotensin Converting Enzyme Inhibitor, Aspirin, Long Acting ? Nitrate, Statin and Thrombolytic (any). ? Indications for Diagnostic Cath: ?The priority of the diagnostic procedure was Emergent. The indication for ?the corn lab technician visit is ACS less than or [...] require ?modification of this regimen. Consult [facility] [place] for ?questions. [...] any medical treatment. Consult ?http://tools.acc.org/DAPTriskapp/#!/content/calculator/ or [facility] [place]Interventional Cardiology for questions. [...] Procedure Note Jung Merino MD - 09/12/2019 [facility] Cardiac Catheterization/Intervention Report Patient Name: Samy Patricio Procedure Date: 08/06/2019 A #: [id number] Primary Physician: Jung Merino Case #: [id number] File Name: [id number] Catheterization Order Number: [id number] [facility] FinalReport [place], [place] Patient Name: Samy Patricio ID#:[id number] :1965 Procedure Date: August 06, 2019 Case [...] patient wasdesignated as ASA Class IV. The [facility] clinical frailty scale is 4: Vulnerable. Diagnostic Tests: Electrocardiography: EKG was assessed by ECG. EKG was Abnormal. EKG showed STDeviation >= 0.5 mm. Medications Prior to Procedure: Angiotensin Converting Enzyme Inhibitor, Aspirin, Long Acting Nitrate, Statin and Thrombolytic (any). Indications for Diagnostic Cath: The priority of the diagnostic procedure was Emergent. Theindication for the corn lab technician visit is ACS less than or [...] The priority for the procedure was Emergent.[facility] indication for the procedure was STEMI (after [...] mayrequire modification of this regimen. Consult [facility] [place]iology[place] questions. This [...] against any medical treatment.Consult http://tools.acc.org/DAPTriskapp/#!/content/calculator/ or [facility] [place] Cardiology for questions. [...] (Bezet) 454 ms MUSE SYSTEM Calculated P Thoreau 68 degrees MUSE SYSTEM Calculated R Thoreau 71 degrees MUSE SYSTEM Calculated T Thoreau 24 degrees MUSE SYSTEM INTERPRETATION Normal sinus rhythm Normal ECG When compared with ECG of 04-JUL-2018 22:00, No significant change was found I personally reviewed the tracing and edited the fellows interpretation Confirmed by fellow MD Dee, Jaylin Oviedo ([id number]) on 08/06/2019 1:17:24 PM Confirmed by MD Yaima, Timothy Collins ([id number]) on 08/07/2019 9:47:34 AM MUSE SYSTEM 08/06/2019 [...] Mon08/06/19 at 1800, Administer over 120 Minutes New [...] 1714 (Given - Provider: Maureen Carrillo RN) clopidogreL (Plavix) tablet 75 mg (COMPLETED) 75 [...] Natalia Renee RN)0828 (Given - Provider: Daniel Sands RN)1200 (Not Given - Provider: Daniel Sands RN - Reason: Order parameters not met)1648 (Not Given - Provider: Rama Park RN - Reason: Order parameters not met)2032 (Given - Provider: Natalia Renee RN)2328 (Given [...] patch 0900 (Patch Removed - Provider: Maureen Carrillo RN) [...] 0813 (Given - Provider: Maureen Carrillo, GUILLAUME) sucralfate (Carafate) (100 mg/mL) oral liquid 1 g 1 g, Oral, EVERY 6 HOURS SCHEDULED, First dose on Mon08/06/19 at 0600, Until Discontinued, Routine 0600 (Given - Provider: Daniel Sands RN)1236 (Given - Provider: Daniel Sands RN)1753 (Given - Provider: Rama Park RN)2328 (Given - Provider: Natalia Renee RN) 0507 (Given - Provider: Natalia Renee, GUILLAUME)1130 (Given - Provider: Maureen Carrillo, GUILLAUME)1713 (Given [...] Unit) 0521 (New Bag - Provider: Natalia Renee, GUILLAUME) PRN Medication Order 08/05/2019 08/06/2019 08/07/2019 alum-mag hydroxide-simeth (Maalox) (40 mg-40 mg-4 mg/mL) oral liquid (CANCELED) ONCE PRN, Starting on Mon08/06/19 at 0409, Until Mon08/06/19 at 0414, Cath (Intra-Procedure), Routine 040 (Given - Provider: Amita Pizarro) clopidogreL (Plavix) tablet (CANCELED) ONCE PRN, Starting on Mon08/06/19 at 0222, Until Mon08/06/19 at 0403, Cath (Intra-Procedure), Routine 022 (Given - Provider: Mckenzie Parks RN) dextrose [...] Mckenzie Parks, GUILLAUME)236 (Given - Provider: Mckenzie Parks RN)330 (Given - Provider: Mckenzie Parks, GUILLAUME) glucagon [...] Mon08/06/19 at 0450, Until Mon08/07/19 at 2017, for discomfort with PIV insertion, Routine lidocaine [...] Until Mon08/06/19 at 0403, Cath (Intra-Procedure), Routine 023 (Given - Provider: Mckenzie Parks RN)023 (Given - Provider: Mckenzie Parks, RN)024 (Given - Provider: Mckenzie Parks RN) nicotine [...] Routine documented in this encounter Care Teams Inhalation Therapy Aides Teacher Relationship Specialty Start Date End Date Sae Marr MD PCP - General General Internal Medicine 08/06/19 9/3 documented as of this encounter
--- OUTSIDE RECORDS SUMMARY | 2023-12-10 00:45 | XMS_ITS | Encounter Summary ---
[place] [address] Care Team Providers Care Stamps Or Coins Salesperson Name Role Phone Unavailable Primary Care Provider Unavailabl e Encounter Details Date Type Department Care Team (Late st Contact Info) Description 07/05/2018 Telephone Psychiatry and [place] [address] Misty Pak Social History Tobacco Use Types [...] facilities in search for an involuntary bed: [facility]- referral received, #17 on the list. [place]- Referral faxed, no beds available at this time. [place]- Referral faxed, no beds available at this time. [place]- Referral faxed, no beds available at this time. documented in this encounter Plan of Treatment Upcoming Encounters Date Type Department Care Team (Late st Contact Info) Description 01/10/2024 9:45 AM EDT Office Visit Neurosurgery at [place] [address] [place] [address] Rosanna Clement MD [address] [place] [address] Chau Blackburn PA [address] [place] [address] 03/20/2024 10:00 AM EST Office Visit [place] [address] Tania Gates, [facility] [place] [address] 12/23/2024 8:00 AM EDT Office Visit [place] [address] Tania Gates, [facility] [place] [address] documented as of this encounter Visit Diagnoses Not on filedocumented in this encounter
--- OUTSIDE RECORDS SUMMARY | 2023-12-10 00:45 | XMS_ITS | Encounter Summary ---
Author Organization [facility] [place] [address] Care Team Providers Care Bow Maker Machine Tender Name Role Phone Unavailable Primary Care Provider Unavailabl e Encounter Details Date Type Department Care Team (Latest Contact Info) Description 09/27/2018 7:01 AM EDT - 09/27/2018 8:45 AM EDT Hospital Encounter [place] [address] Luc Hdz MD [facility] [place] [address] Discharge Disposition: Home Social History Tobacco Use [...] - 09/27/2018 8:16 AM EDT Please call [phone] before 8pm Mon-Fri with problems, questions or concerns. If you call after 8pm or on weekends, call the Hospital at [phone] and ask to speak to the Account Development Associate vehicle sales professional and the bridge saw operator will contact that person for you. * Attachments The following attachments cannot be sent through Care Everywhere. * EGD (Upper Endoscopy): Post-op (Croatian) documented in this encounter Medications at Time [...] 9:45 AM EDT Office Visit Neurosurgery at [facility] [address] [place] [address] Rosanna Clement MD 10 [facility] [place] [address] Chau Blackburn PA 10 [facility] [place] [address] 03/20/2024 10:00 AM EST Office [place] [address] Tania Gates OD [facility] [place] [place] [address] 12/23/2024 8:00 AM EDT Office [place] [address] Tania Gates OD [facility] [address] [place] [place] [id number] documented as of this encounter Procedures Procedure [...] AM EDT 09/27/2018 8:12 AM EDT Narrative [facility] - 09/27/2018 8:12 AM EDT Specimen requisition ordered. ??Separate Pathology report to follow Luc Hdz MD PATHOLOGY/CYTOLOGY O SAEID Performing Organization Address [facility] Co de Phone Number [facility] [place] [address] * Specimen to Pathology (09/27/2018 8:12 AM EDT) AP Specimen 09/27/2018 8:12 AM EDT 09/27/2018 8:12 AM EDT Narrative [facility] - 09/27/2018 8:12 AM EDT Specimen requisition ordered. ??Separate Pathology report to follow Luc Hdz MD PATHOLOGY/CYTOLOGY O SAEID Performing Organization Address [facility]/ZIP Co de Phone Number [facility] [place] [address] * Surgical Pathology Report (09/27/2018 8:05 AM EDT) Final Diagnosis [id number] ? Location: 4T; EA09; A The signing pathologist has (i) examined the relevant preparation(s) for the specimen(s) and (ii) rendered or confirmed the diagnosis(es). . ?Surgical Pathology DIAGNOSIS A - Duodenum, biopsy: - ??Duodenal mucosa, negative for diagnostic abnormality ??. B - Z line, biopsy: - ??Diaz's esophagus, negative for dysplasia. CR-PX Electronically signed by: ??Rc Mathews MD Verified: ??10/01/2018 ?Pathologist Performed at: ??-[facility] Dept. of Pathology, [place], [place] CLINICAL INFORMATION Specimen Submitted: A - [...] labeled B1-B2. ??ejr 10/01/2018 3:36 PM EDT [facility] GI Biopsy 09/27/2018 8:05 AM EDT 09/27/2018 8:05 AM EDT GI Biopsy 09/27/2018 8:05 AM EDT 09/27/2018 8:05 AM EDT Luc Hdz MD PATHOLOGY/CYTOLOGY Daphney BREAUX Performing Organization Address [facility] Co de Phone Number [facility] [place] [address] * POCT Glucose (09/27/2018 7:49 AM EDT) Glucose, POC 124 65 - 199 mg/dL [facility] Comment: Supplemental ranges: <140 mg/dL before meals <180 mg/dL all other times of the day Blood specimen (specimen) 09/27/2018 7:49 AM EDT 09/27/2018 7:49 AM EDT Luc Hdz MD POINT OF CARE TEST O SAEID Performing Organization Address [facility] Co de Phone Number [facility] [place] [address] * UPPER GI ENDOSCOPY (09/27/2018 7:40 AM EDT) UPPER GI ENDOSCOPY [facility] Endoscopy Procedure Date: 09/27/2018 7:40 AM ? Patient Name: Samy Patricio ? N: [id number] ? Date of : 1965 ? Age: 52 ? Order #: [id number] ? Instrument Name: [id number] ? Procedure: ? Upper GI endoscopy Indications: [...] PROVATION 09/27/2018 7:40 AM EDT Abi Lazaro SET UP PERSON GENERAL SURGICAL ORDERABLES PROVATION documented in this encounter Visit Diagnoses Not on filedocumented in this encounter Administered Medications Inactive Administered Medications - up to 3 most recent administrations Medication Order MAR Action Action Date Dose Rate Site lactated ringers infusion 100 mL/hr, Intravenous, CONTINUOUS, Starting on Mon09/27/18 at 0745, Until Mon09/27/18 at 0835, Endoscopy (Day of Procedure) New [...]
--- OUTSIDE RECORDS SUMMARY | 2023-12-10 00:45 | XMS_ITS | Encounter Summary ---
Author Organization [facility] [place] [address] Care Team Providers Care Credentialing Assistant Name Role Phone Sae Marr MD Primary Care Provider [phone] Encounter Details Date Type Department Care Team (Late st Contact Info) Description 08/06/2019 12:35 AM EDT Ancillary Procedure Radiology [facility] [place] [phone] Dallas Gutierrez MD [address] [place] [address] Social History Tobacco Use Types Packs/Day Years [...] 9:45 AM EDT Office Visit Neurosurgery at [facility] [address] [place] [phone] Rosanna Clement MD [address] [place] [address] Chau Blackburn PA [address] [place] [address] 03/20/2024 10:00 AM EST Office [place] [address] Tania Gates, [facility] [place] [address] 12/23/2024 8:00 AM EDT Office [place] [address] Tania Gates, [facility] [address] documented as of this encounter Procedures Procedure Name Priority Date/Time Associated Diagnosis Comments FILM LIBRARY STORAGE ONLY DX CHEST Routine 08/06/2019 12:34 AM EDT documented in this encounter Results * Film Library- Storage Only DX Chest (08/06/2019 12:34 AM EDT) Narrative [facility] - 08/06/2019 12:34 AM EDT This exam is auto-finalizing. It's purpose is for storage only. Dallas Gutierrez MD IMG FILM LIBRARY ORD ERABLES [place], [place] documented in this encounter Visit Diagnoses Not on filedocumented in this encounter Care Teams Credentialing Assistant Relationship Specialty Start Date End Date Sae Marr MD PCP - General General Internal Medicine 08/06/19 9/3 documented as of this encounter
--- OUTSIDE RECORDS SUMMARY | 2023-12-10 00:45 | XMS_ITS | Encounter Summary ---
Author [place] [address] Care Team Providers Care Evidence Specialist Name Role Phone Unavailable Primary Care Provider Unavailabl e Encounter Details Date Type Department Care Team (Late st Contact Info) Description 10/15/2018 Ancillary Procedure Radiology at [facility] [address] [place] [phone] Rosanna Clement MD [address] [facility] [address] Social History Tobacco Use Types Packs/Day Years [...] Visit Neurosurgery at [facility] [address] [place] [address] Rosanna Clement MD [address] [facility] [place] [address] Chau Blackburn PA [address] [place] [address] 03/20/2024 10:00 AM EST Office [place] [address] Tania Gates, [facility] [place] [address] 12/23/2024 8:00 AM EDT Office [place] [address] Tania Gates, [facility] [place] [address] documented as of this encounter Procedures Procedure Name Priority Date/Time Associated Diagnosis Comments FILM LIBRARY STORAGE ONLY MR SPINE Routine 10/15/2018 12:00 AM EDT documented in this encounter Results * Film Library- Storage Only MR Spine (10/15/2018 12:00 AM EDT) Narrative [facility] - 10/18/2018 12:20 PM EDT This exam is auto-finalizing. It's purpose is for storage only. Rosanna Clement MD [facility] FILM LIBRARY ORDERABLES [place], [place] documented in this encounter Visit Diagnoses Not on filedocumented in this encounter
--- OUTSIDE RECORDS SUMMARY | 2023-12-10 00:45 | XMS_ITS | Encounter Summary ---
[place] [address] Care Team Providers Care Rope Laying Machine Operator Name Role Phone Unavailable Primary Care Provider Unavailabl e Encounter Details Date Type Department Care Team (Late st Contact Info) Description 07/02/2018 Telephone [place] [address] Tamica Perera Social History Tobacco Use Types [...] 07/02/2018 10:56 AM EDT Samy Patricio Jr. [id number] Diagnosis: Diaz's esopagus surveillance dysphagia 1. Have you ever had a colonoscopy before? [x] YES [] NO If Yes, Date of Last EGD: 2016 per patient . [facility] 2011 If yes, did you have any problems with the procedure? [] YES [x] NO Explain: What type of sedation was used: IV sedation 2. Do you take any Blood Thinners? [x] YES [] NO If Yes, type: Clopidogrel 3. Do you have a Pacemaker or Defibrillator device? [] YES [x] NO If Yes send inNefsis message to [place] [facility] ENDO DEVICE CHECK 4. Are you a [...] NO 11. You must have a responsible republican stay at the facility during your procedure [...] 9:45 AM EDT [place] [address] [place] [address] [place] [address] 03/20/2024 10:00 AM EST Office [place] [address] Tania Gates, [facility] [place] [address] 12/23/2024 8:00 AM EDT Office [place] [phone] Tania Gates, [facility] [place] [address] documented as of this encounter Visit Diagnoses Not on filedocumented in this encounter
--- OUTSIDE RECORDS SUMMARY | 2023-12-10 00:45 | XMS_ITS | Encounter Summary ---
Author [facility] [place] [address] Care Team Providers Care Crab Steamer Name Role Phone Unavailable Primary Care Provider Unavailabl e Reason for Visit * Reason Comments Diabetic Eye Exam Pseudophakia * Consultation (Routine) - Closed Specialty Diagnoses / Procedures Referred By Contadrian t Referred To Contact Ophthalmology Diagnoses DIABETIC EYE EXAM Abi Lazaro APRN [address] [place] [address] Tania Gates, [facility] [place] [address] Referral ID Status Reason Start Date Expiration Date V isits Requested Visits Authorized [id number] Closed Consult, Test & Treat Connection Center PCP Updated and/or Approved 01/30/2019 01/30/2020 1 1 Encounter Details Date Type Department Care Team (Late st Contact Info) Description 02/08/2019 9:40 AM EST Office [place] [address] Tania Gates, [facility] [place] [address] Diabetic eye exam; Pseudophakia of right eye; [...] Rx given today in polycarbonate and advised macroeconomics professor wear for eye protection! - Findings and [...] 9:45 AM EDT Office Visit Neurosurgery [place] [address] Rosanna Clement [place] [address] [place] [address] 03/20/2024 10:00 AM EST Office [place] [address] Tania Gates, [facility] [place] [address] 12/23/2024 8:00 AM EDT Office [place] [address] Tania Gates, [facility] [place] [address] documented as of this encounter Visit Diagnoses Diagnosis Diabetic eye exam Examination of eyes and vision Pseudophakia of right eye Lens replaced by other means Age-related nuclear cataract of left eye Senile nuclear sclerosis History of eye injury Personal history of other injury Astigmatism of both eyes with presbyopia documented in this encounter
--- OUTSIDE RECORDS SUMMARY | 2023-12-10 00:46 | XMS_ITS | Encounter Summary ---
[place] [address] Care Team Providers Care Medical Office Professional Instructor Name Role Phone Altaf Hoover MD Primary Care Provider [phone] Encounter Details Date Type Department Care Team (Latest Contact Info) Description 04/26/2011 7:32 AM EST - 04/26/2011 10:50 AM EST Hospital En[place] [address] Kirsten Chew MD [facility] [place] [address] Discharge Disposition: Home Social History Tobacco Use [...] not get better as expected. Monday-Monday Clinic [phone] 8a-5p Same Day Endo [phone] 7a-8p Otherwise contact [phone] and ask to speak to the tool and machine maintainer biodiesel production associate Follow-up care is a sanford part of your treatment and safety. Be sure to make and go to all appointments, and call your doctor if you are having problems. Instructions have been reviewed and patient expresses understanding * Patient Instructions* Kirsten Chew MD - 04/26/2011 9:53 AM EST Please [...] RN - 04/26/2011 10:[address] Chew in to explain findings and plan. documented in this encounter H&P Notes * Kirsten Chew MD - 04/26/2011 8:56 AM EST Gastroenterology [...] 9:45 AM EDT Office Visit Neurosurgery at [facility] [address] [place] [address] Rosanna Clement MD 10 [facility] [place] [address] Chau Blackburn PA 10 [facility] [place] [address] 03/20/2024 10:00 AM EST Office [place] [address] Tania Gates, [facility] [place] [address] 12/23/2024 8:00 AM EDT Office [place] [address] Tania Gates, [facility] [address] documented as of this encounter Procedures Procedure [...] 11:25 AM EST) Surgical Pathology Report ? [facility] ? Provider: ?? KIRSTEN CHEW ?? Pt. Name: ?? GIDEON SMITH, SAMY Oreilly ? Acc #: ?[id number] ?Pt. ? Col Date: ?? 04/26/2011 ? [...] Soft, figueroa tissues. ? Sections/Processing: ??(T2) ? [facility] ? Provider: ?? KIRSTEN CHEW ?? Pt. Name: ?? GIDEON SMITH, SAMY Oreilly ? Acc #: ?[id number] ?Pt. ? Col Date: ?? 04/26/2011 ? [...] History/Diagnosis: ? Multiple erosions in duodenum. NAYELI ZHANGIUM 04/26/2011 11:2 5 AM EST Kirsten Chew MD PATHOLOGY/CYTOLOGY O SAEID Performing Organization Address [facility] de Phone Number NAYELI CHOWDHURY * Specimen to Pathology (surgical or derm) (04/26/2011 9:53 AM EST) AP Specimen 04/26/2011 9:53 AM EST 04/26/2011 9:53 AM EST Narrative [facility] MILLENNI[facility] - 04/26/2011 9:53 AM EST Specimen requisition ordered. ??Separate Pathology report to follow Kirsten Chew MD PATHOLOGY/CYTOLOGY O SEAID Performing Organization Address [facility] Co de Phone Number NAYELI ZHANGIUM * Specimen to Pathology (surgical or derm) (04/26/2011 9:53 AM EST) AP Specimen 04/26/2011 9:53 AM EST 04/26/2011 9:53 AM EST Narrative [facility] MILLENNIUM - 04/26/2011 9:53 AM EST Specimen requisition ordered. ??Separate Pathology report to follow Kirsten Chew MD PATHOLOGY/CYTOLOGY O RDALBERBLES NAYELI [facility] * UPPER GI ENDOSCOPY (04/26/2011 8:42 AM EST) UPPER GI ENDOSCOPY [facility] Endoscopy ___ Patient Name: Samy Patricio ? Procedure Date: 04/26/2011 8:42 AM ? N: [id number] ? Date of : 1965 ? Age: 45 ? Order #: [id number] ? ___ Procedure: ? Upper GI endoscopy Indications: ? Heartburn, Epigastric abdominal pain Providers: ? Kirsten Chew MD, Masha ? GUILLAUME Johnson, Aiden Iyer, ? Silica Dry Press Helper Referring MD: ?Altaf Hoover MD Medicines: ? [...] or ? hypergastrinemic conditions. ? _ Kirsten Chew MD 04/26/2011 10:04 AM ? Number of Addenda: 0 Note Initiated On: 04/26/2011 8:42 AM PROVATION 04/26/2011 8:42 AM EST Altaf Hoover MD GENERAL SURGICAL ORD ALBERBLES PROVATION * POCT GLUCOSE LAB USE ONLY (04/26/2011 8:29 AM EST) Glucose, POC 163 60 - 199 mg/dL [facility] Comment: Supplemental ranges: <110 mg/dL before meals <200 mg/dL all other times of the day Blood specimen (specimen) 04/26/2011 8:29 AM EST 04/26/2011 8:29 AM EST Kirsten Chew MD POINT OF CARE TEST O RDLENARD CERNER MILLENNIUM documented in this encounter Visit Diagnoses Not [...] 0937 (New Bag - Prov ider: Kirsten Chew MD - Comment: applied to back of [...] RN) documented in this encounter Care Teams Medical Office Professional Instructor Relationship Specialty Start Date End Date Altaf Hoover MD [address] [place] [address] PCP - General 04/19/11 09/18/17 documented as of this encounter
--- OUTSIDE RECORDS SUMMARY | 2023-12-10 00:46 | XMS_ITS | Encounter Summary ---
Author Organization [facility] Address [address] [place] [address] Care Team Providers Care Cake Puller Name Role Phone Sae Marr MD Primary Care Provider [phone] Encounter Details Date Type Department Care Team (Late st Contact Info) Description 05/13/2020 Lab Requisition [facility] Pathology & Laboratory Medicine - [address] [address] Outr Resulting Lab, Provider Social History Tobacco [...] IGA <1.2 <4.0 U/mL 05/18/2020 14:31 EST [facility] Comment: A negative result may be due to IgA deficiency and does not rule out celiac disease. ? Negative: ??<4.0 U/mL ? Weak Positive: ??4.0 - 10.0 U/mL ? Positive: ??>10.0 U/mL Results were obtained with the [employer] QUANTA Lite R h-tTG IgA JAMAL assay on the Globial DSX. IgA 214 85 - 499 mg/dL 05/18/2020 14:31 EST [facility] Celiac Disease Interpretation Negative Serology. Celiac disease unlikely. Approximately 10% of patients with celiac disease are seronegative. Patients who are already adhering to a gluten-free diet may also be seronegative. If celiac disease is highly clinically suspected, referral to gastroenterology for additional evaluation is recommended. 05/18/2020 14:31 EST [facility] Blood VENOUS BLOOD / Unknown 05/13/2020 8:20 EST 05/13/2020 17:01 EST Provider Outr Resulting Lab IMMUNOLOGY A ND SEROLOGY ORDERABLES [facility] [address] [place] [address] documented in this encounter Visit Diagnoses Not on filedocumented in this encounter Care Teams Cake Puller Relationship Specialty Start Date End Date Sae Marr MD PCP - General Family Medicine - Primary Care 04/13/20 documented as of this encounter
--- OUTSIDE RECORDS SUMMARY | 2023-12-10 00:46 | XMS_ITS | Encounter Summary ---
Author Organization [facility] [place] [address] Care Team Providers Care Friend Of The Court Name Role Phone Karen Barbosa MD Primary Care Provider [phone] Encounter Details Date Type Department Care Team (Late st Contact Info) Description 05/22/2007 Orders [place] [address] Chang Chew MD [facility] [place] [address] Social History Tobacco Use Types Packs/Day Years Used Date Smoking Tobacco: Never Assessed [facility] Inpatient Questions Answer Date Recorded Does [...] 9:45 AM EDT Office Visit Neurosurgery at [facility] [place] [phone] Rosanna Clement MD [address] [place] [address] Chau Blackburn PA [address] [place] [address] 03/20/2024 10:00 AM EST Office [place] [address] Tania Gates, OD [facility] [place] [address] 12/23/2024 8:00 AM EDT Office [place] [address] Tania Gates, OD [facility] [place] [address] documented as of this encounter Procedures Procedure Name Priority Date/Time Associated Diagnosis Comments SURGICAL PATHOLOGY REPORT Routine 05/22/2007 2:44 PM EDT documented in this encounter Results * Surgical Pathology Report (05/22/2007 2:44 PM EDT) Surgical Pathology Report [id number] ? Location: 4T The signing pathologist has [...] rendering the final pathologic diagnosis. NAYELI CHOWDHURY 05/22/2007 2:44 PM EDT Chang Chew MD PATHOLOGY/CYTOLOGY O RDERABLES NAYELI CHOWDHURY documented in this encounter Visit Diagnoses Not on filedocumented in this encounter Care Teams Friend Of The Court Relationship Specialty Start Date End Date Karen Barbosa MD [address] [place] [address] PCP - General Family Medicine 10/04/22 documented as of this encounter
--- OUTSIDE RECORDS SUMMARY | 2023-12-10 00:46 | XMS_ITS | Clinical Summary ---
Author Organization [facility] Address [address] [place] [address] Care Team Providers Care Price Checker Name Role Phone Sae Marr MD Primary [...] premature coronary heart disease 02/13/2019 Atypical angina ([facility]) 02/13/2019 PUD (peptic ulcer disease) 02/13/2019 H/O heart artery stent 02/13/2019 Smoker 08/25/2017 CARLOTA (obstructive sleep apnea) 08/25/2017 Type 2 diabetes mellitus, wi thout long-term current use of insulin ([facility]) 08/25/2017 Hyperlipidemia 08/25/2017 CAITLYN (acute kidney injury) ([facility]) 08/25/2017 Diaz's esophagus Resolved Problems Problem Noted Date Diagnosed Date Resolved Date NSTEMI (non-ST elevated myoc ardial infarction) ([facility]) 08/25/2017 04/12/2019 Surgical History Surgery Date Site/Laterality Comments CORONARY ANGIOPLASTY WITH STENT PLACEMENT 08/11/2017 - 09/09/2017 N/A LM MLI's. LAD MLI's. LCX 80%. RCA 90%. RCA and LCX EDEN. Medical History Medical History Date Comments COPD (chronic obstructive pulmonary disease) ([facility]) Diaz's esophagus NSTEMI (non-ST elevated myocardial infarction) ( [facility]) 08/25/2017 Hyperlipidemia 08/25/2017 Type 2 diabetes mellitus, wi out long-term current use of insulin ([facility]) 08/25/2017 PUD (peptic ulcer disease) 02/13/2019 [...] - 19+ 3-dose series) 12/07 COVID-19 Vaccine (2022- season) 2023 Hepatitis C Screen Completed 02/12/2001 Procedures Procedure [...] GA S ORDERABLES [facility] [address] [place] [address] from Last 3 Months or Most Recently Relevant to Health Maintenance Advance Directives For more information, please contact: [phone] * Full Code (Latest Code Status on File) Date Activated Date Inactivated Comments 08/25/2017 2:36 08/26/2017 15:45 Question Answer Comments Reason for decision includes: Full code consistent with overall plan of care Who participated in the discussion? Not Discusse d Care Teams Price Checker Relationship Specialty Start Date End Date Sae Marr MD PCP - General Family Medicine - Primary Care 04/13/20
--- OUTSIDE RECORDS SUMMARY | 2023-12-10 00:46 | XMS_ITS | Encounter Summary ---
[place] [address] Care Team Providers Care Batch Mixing Truck Driver Name Role Phone Altaf Hoover MD Primary Care Provider [phone] Reason for Visit * Reason Comments Dizziness Shortness of Breath Encounter Details Date Type Department Care Team (Late st Contact Info) Description 04/03/2017 10:58 PM EST - 04/04/2017 4:14 AM EST [place] [address] Tiffanie Espino MD [facility] [place] [address] SOB (shortness of breath); Dizziness and giddiness; Dyspnea, unspecified type; Nausea; Nonintractable headache, unspecified chronicity pattern, unspecified headache type; Cough; Generalized hyperhidrosis; Type 2 diabetes mellitus without complication, without long-term current use of insulin; Cigarette smoker; Encounter for long-term (current) drug use; detention (current) use of oral hypoglycemic drugs; Encounter [...] Emergency Department with shortness of breath. This communications writer assumed care from Dr. Johnson at [...] Not Detected Not Detected Resp PCR Source ALLIED HEALTH TEACHER Swab ED Course [facility]'s Documentation Value [...] lack of diagnosis and disposition at 0400. Chuck Boner explained that we hadbeen awaiting return of [...] No Pronator Drift. No dysmetria, dysdiadochokinesia; negative cgez-hy-sqro. Normal sensation. 5/5 strength in upper, lower [...] Philip Johnson MD PGY1, Internal Medicine Pager #[phone] Philip Johnson MD Resident 04/04/17 0058 Associated [...] Visit Neurosurgery at [facility] [address] [place] [address] Rosanna Clement MD [address] [place] [address] Chau Blackburn PA [address] [address] 03/20/2024 10:00 AM EST Office [place] [address] Tania Gates OD [facility] [place] [address] 12/23/2024 8:00 AM EDT Office Visit Ophthalmology at [facility] [place] [address] Tania Gates, [facility] [place] [address] documented as of this encounter Procedures Procedure Name Priority Date/Time Associated Diagnosis Comments RAPID INFLUENZA A/B AND RSV PCR ([facility]/APD/[facility]) STAT 04/04/2017 2:[address] CHEST [...] Influenza A PCR Not Detected Not Detected [facility] Influenza B PCR Not Detected Not Detected [facility] RSV PCR Not Detected Not Detected [facility] Resp PCR Source [employer]IED HEALTH TEACHER Swab [facility] Nasopharyngeal swab (specimen) 04/04/2017 2:45 AM EST 04/04/2017 3:14 AM EST Narrative Resulting Agency Comment Spec In Lab Tiffanie Espino MD MICROBIOLOGY - GENER AL ORDERABLES [facility] [place] [address] * CTA Chest for Pulmonary Embolus w [...] process. Tiffanie Espino MD IMG DX ORDERABLES * EKG 12 Lead (04/04/2017 12:04 AM EST) Ventricular rate 85 BPM MUSE SYSTEM Atrial Rate 85 BPM MUSE SYSTEM P-R Interval 176 ms MUSE SYSTEM QRS Duration 80 ms MUSE SYSTEM Q-T Interval 370 ms MUSE SYSTEM QTC Calculated (Bezet) 440 ms MUSE SYSTEM Calculated P [place] 46 degrees MUSE SYSTEM Calculated R [place] 56 degrees MUSE SYSTEM Calculated T [place] 41 degrees MUSE SYSTEM INTERPRETATION Normal sinus rhythm Normal ECG When compared with ECG of 13-JUL-2006 17:13, No significant change was found Confirmed by MD Yaima, Timothy Collins ([id number]) on 04/04/2017 5:28:12 PM MUSE SYSTEM 04/04/2017 12:0 4 AM EST 04/04/2017 5:28 PM EST Tiffanie Espino MD ECG ORDERABLES MUSE SYSTEM * Gold Tube HOLD (04/04/2017 12:02 AM EST) Gold Hold Sample in lab. [facility] Blood specimen (specimen) Venous Draw / Unknown 04/04/2017 12:02 AM EST 04/04/2017 12:10 AM EST Tiffanie Espino MD CHEMISTRY ORDERABLES Performing Organization Address City/[facility]/[place] [address] * Differential, Automated (04/04/2017 12:02 AM EST) Neutrophil % 56.6 % [facility] Neutrophil Absolute 4.20 1.70 - 6.10 x10(3)/[facility] LABORATORY Lymph % 32.5 % [facility] Lymphocytes Abs 2.4 0.9 - 3.2 x10(3)/[facility] LABORATORY Monocyte % 7.4 % [place] Monocyte Abs 0.6 0.3 - 0.9 x10(3)/[facility] Eos % 2.3 % [facility] Eosinophils Abs 0.2 0.0 - 0.4 x10(3)/[facility] LABORATORY Basophil % 0.7 % [facility] Baso Absolute 0.0 0.0 - 0.1 x10(3)/[facility] LABORATORY Immature Gran % 0.50 % [facility] Comment: Immature granulocytes(IG's)percentage and absolute count will include metamyelocytes, myelocytes, and promyelocytes. Blood smears from CBCs yielding IG's will be scanned manually for concordance. If this scan disagrees with the automated IG or if promyelocytes are noted, a manual differential will be performed. Immature Gran Absolute 0.04 0.00 - 0.04 x10(3)/[facility] LABORATORY Blood specimen (specimen) 04/04/2017 12:02 AM EST 04/04/2017 12:09 AM EST Narrative Resulting Agency Comment Spec In Lab Tiffanie Espino MD HEMATOLOGY ORDERABLE S Performing Organization Address City/[facility]/[place] [address] * (ABNORMAL) Hemogram (04/04/2017 12:02 AM EST) White Blood Cell 7.4 4.0 - 9.5 x10(3)/ L [facility] Red Blood Cell 4.67 4.58 - 5.54 x10(6)/ L [facility] Hemoglobin 15.8 13.7 - 16.5 gm/dL [facility] Hematocrit 42.2 40.5 - 48.5 % [facility] Mean Cell Volume 90.4 82.9 - 93.1 fL [facility] Mean Cell Hemoglobin 33.8(H) 27.5 - 32.1 pg [facility] Mean Cell Hemoglobin Concentration 37.4(H) 32.0 - 35.7 gm/dL [facility] Platelet 212 145 - 357 x10(3)/[facility] LABORATORY RDW Standard Deviation 41.2 36.0 - 45.0 fL [facility] RDW coefficient of variation 12.5 11.4 - 13.8 % [facility] Mean Platelet Volume 9.9 7.6 - 12.9 fL [facility] NRBC% auto 0.0 % [facility] NRBC Absolute 0.000 0.000 - 0.000 x10(3)/[facility] LABORATORY Blood specimen (specimen) 04/04/2017 12:02 AM EST 04/04/2017 12:09 AM EST Narrative Resulting Agency Comment Spec In Lab Tiffanie Espino MD HEMATOLOGY ORDERABLE S [facility] [place] [address] * (ABNORMAL) D-Dimer, Quantitative (04/04/2017 12:02 AM EST) Pathologist [facility] D-Dimer 1,112(H) 0 - 500 FEU ng/ml [facility] Comment: The D-Dimer assay is [...] MD HEMATOLOGY ORDERABLE S Performing Organization Address City/[facility]/ZIP Co de Phone Number [facility] [place] [address] * pro-Brain Natriuretic Peptide (04/04/2017 12:02 AM EST) NT-proBNP 26 <=125 pg/mL [facility] Blood specimen (specimen) 04/04/2017 12:02 AM EST 04/04/2017 12:09 AM EST Narrative Resulting Agency Comment Spec In Lab Tiffanie Espino MD CHEMISTRY ORDERABLES Performing Organization Address City/[facility]/ZIP Co de Phone Number [facility] [place] [address] * Troponin T (04/04/2017 12:02 AM EST) Troponin-T <0.01 0.00 - 0.00 ng/mL [facility] Comment: Specimen ultracentrifuged due to gross lipemia The 99th percentile for Troponin T is less than 0.01 ng/mL, any detectable cTnT concentration using this assay should be considered elevated. According to the third universal definition of myocardial infarction the following criteria with a clinical presentation consistent with acute myocardial ischemia meets the diagnosis for a myocardial infarction ([place]). Detection of a rise and/or fall of cTnT, with at least one value greater than the 99th percentile (> or = 0.01) and with at least one of the following ?? Symptoms of ischemia ?? New or presumed new significant CV-slburvc-C wave (ST-T) changes or new left bundle [...] additional sample may be indicated. Reference: Third [employer] Definition of Myocardial Infarction. Journal of the [place] [employer] 2012;60:1581-98 Blood specimen (specimen) 04/04/2017 12:02 AM EST 04/04/2017 12:09 AM EST Narrative Resulting Agency Comment Spec In Lab Tiffanie Espino MD CHEMISTRY ORDERABLES [facility] [place] [address] * (ABNORMAL) Basic Metabolic Panel (non-fasting) (04/04/2017 12:02 AM EST) Glucose 265(H) 65 - 199 mg/dL [facility] Comment:Diabetes: >=200 mg/d L plus symptoms Blood Urea Nitrogen 15 10 - 20 mg/dL [facility] Creatinine 1.45 0.80 - 1.50 mg/dL [facility] Comment:Specimen ultracentri fuged due to gross lipemia Sodium 139 135 - 145 mmol/L [facility] Comment:Specimen ultracentri fuged due to gross lipemia Potassium 5.2(H) 3.5 - 5.0 mmol/L [facility] Comment: Specimen ultracentrifuged due to gross lipemia Please note: ??Patients with WBC >100,000 may have falsely elevated Potassium levels. ??For accurate Potassium quantification in these patients send serum separator tube (gold top) for subsequent determinations. ??Contact the Clinical Chemistry Laboratory if there are any questions. Chloride 98 98 - 107 mmol/L [facility] Comment:Specimen ultracentri fuged due to gross lipemia Carbon Dioxide 28 22 - 31 mmol/L [facility] Anion Gap 13 5 - 15 mmol/L [facility] Calcium 8.5 8.5 - 10.5 mg/dL [facility] Est Glomerular Filtration Rate 52(L) >=60 [facility] Comment: The reported eGFR should be multiplied by 1.2 for patients. The MDRD is not an appropriate measure of renal function for patients with body mass extremes or in patients with acute kidney failure. http://[employer]/DHnkdep http://[employer]/DHMCnkf Blood specimen (specimen) 04/04/2017 12:02 AM EST 04/04/2017 12:09 AM EST Narrative Resulting Agency Comment Spec In Lab Tiffanie Espino MD CHEMISTRY ORDERABLES Performing Organization Address [facility] Co de Phone Number [facility] [place] [address] * (ABNORMAL) POCT Glucose (04/04/2017 12:00 AM EST) Glucose, POC 258(H) 65 - 199 mg/dL [facility] Comment: Supplemental ranges: <140 mg/dL before meals <180 mg/dL all other times of the day Blood specimen (specimen) 04/04/2017 04/04/2017 12:00 AM EST Tiffanie Espino MD POINT OF CARE TEST O RDERABLES Performing Organization Address [facility] Co de Phone Number [facility] [place] [address] documented in this encounter Visit Diagnoses Diagnosis [...] for long-term (current) use of other medications detention (current) use of oral hypoglycemic drugs Encounter [...] NRP) documented in this encounter Care Teams Batch Mixing Truck Driver Relationship Specialty Start Date End Date Altaf Hoover MD [address] [place] [address] [address] [place] [address] PCP - General 04/19/11 09/18/17 documented as of this encounter
--- OUTSIDE RECORDS SUMMARY | 2023-12-10 00:46 | XMS_ITS | Encounter Summary ---
Author Organization [facility] [place] [address] Care Team Providers Care Manpower Development Specialist Name Role Phone Altaf Hoover MD Primary Care Provider [phone] Encounter Details Date Type Department Care Team (Latest Contact Info) Description 12/15/2015 - 12/15/2015 11:59 PM EDT Hospital Encounter [facility] [place] [address] Pop Xiao MD [facility] [place] [address] Pain Discharge Disposition: Home Social History Tobacco [...] 9:45 AM EDT Office Visit Neurosurgery at [facility] [address] [place] [address] Rosanna Clement MD [address] [facility] [place] [address] Chau Blackburn PA [address] [facility] [place] [address] 03/20/2024 10:00 AM EST Office [place] [address] Tania Gates, OD [facility] [place] [address] 12/23/2024 8:00 AM EDT Office [place] [address] Tania Gates, OD [facility] [place] [address] documented as of this encounter Procedures Procedure Name Priority Date/Time Associated Diagnosis Comments FILM LIBRARY STORAGE ONLY MR SPINE Routine 12/15/2015 12:00 AM EDT Pain documented in this encounter Results * Film Library- Storage Only MR Spine (12/15/2015 12:00 AM EDT) Narrative [facility] - 02/06/2017 1:35 PM EST This exam is for storage only and is auto-finalizing. Pop Xiao MD IMG FILM LIBRARY ORD ERABLES [facility] [place], [place] documented in this encounter Visit Diagnoses Diagnosis Pain Generalized pain documented in this encounter Care Teams Manpower Development Specialist Relationship Specialty Start Date End Date Altaf Hoover MD [address] [place] [address] PCP - General 04/19/11 09/18/17 documented as of this encounter
--- OUTSIDE RECORDS SUMMARY | 2023-12-10 00:46 | XMS_ITS | Encounter Summary ---
[place] [address] Care Team Providers Care Sales Office Assistant Name Role Phone Altaf Hoover MD Primary Care Provider [phone] Encounter Details Date Type Department Care Team (Late st Contact Info) Description 08/24/2017 External [place] [address] Social History Tobacco Use Types Packs/Day Years [...] Office Visit Neurosurgery at [address] [place] [address] Rosanna Clement MD [address] [place] [address] Chau Blackburn PA [address] [place] [address] 03/20/2024 10:00 AM EST Office [place] [address] Tania Gaets, [facility] [place] [address] 12/23/2024 8:00 AM EDT Office [place] [address] Tania Gates, [facility] [place] [address] documented as of this encounter Procedures Procedure Name Priority Date/Time Associated Diagnosis Comments ECG SCAN Routine 08/24/2017 documented in this encounter Results * Scan Doc: ECG (08/24/2017) Historical Provider MD KUMAR MGR SCAN EX T ORDR/RSLT documented in this encounter Visit Diagnoses Not on filedocumented in this encounter Care Teams Sales Office Assistant Relationship Specialty Start Date End Date Altaf Hoover MD [address] [place] [address] PCP - General 04/19/11 09/18/17 documented as of this encounter
--- OUTSIDE RECORDS SUMMARY | 2023-12-10 00:46 | XMS_ITS | Encounter Summary ---
Author Organization [facility] Address [address] [place] [address] Care Team Providers Care Travel Nurse Name Role Phone Altaf Hoover MD Primary Care Provider [phone] Reason for Visit * Reason Comments Follow-up Coronary Artery Disease Encounter Details Date Type Department Care Team (Late st Contact Info) Description 04/12/2019 9:30 EST Office Visit [facility] [address] [place] [address] Jg Stubbs MD [address] [facility] [address] [place] [address] Atypical angina (HCC-CMS) (Primary Dx); [...] Jg Stubbs MD - 04/12/2019 0930 EST [facility] Cardiology Follow-up Visit Date of Service: 04/12/2019 Reason for Visit: Atypical angina ([facility]) [I20.8] Primary Care Provider: Altaf Hoover Subjective [...] Vaping. Occasional ETOH. Family History: Mother w/ DC in her 50's, father w/ DC in his 50's, brother w/ DC in his 40's. Objective Vital Signs: Blood [...] HGBA1C 9.6 08/24/2017 Assessment 1. Atypical angina ([facility]) 2. Pre-op evaluation 3. H/O non-ST elevation myocardial infarction (NSTEMI) 4. H/O heart artery stent 5. Type 2 diabetes mellitus without complication, without long-term current use of insulin ([facility]) 6. Smoker 7. FH: premature coronary heart [...] this encounter Visit Diagnoses Diagnosis Atypical angina ([facility])- Primary Other and unspecified angina pectoris Pre-op evaluation Preoperative examination, unspecified H/O non-ST elevation myocardial infarction (NSTEMI) Old myocardial infarction H/O heart artery stent Postsurgical percutaneous transluminal coronary angioplasty status Type 2 diabetes mellitus without complication, without long-term current use of insulin ([facility]) Smoker Tobacco use disorder FH: premature coronary [...] 02/12/2019 added in this encounter Care Teams Travel Nurse Relationship Specialty Start Date End Date Altaf Hoover MD PCP - General 11/12/15 04/12/20 documented as of this encounter
--- OUTSIDE RECORDS SUMMARY | 2023-12-10 00:46 | XMS_ITS | Encounter Summary ---
Author Organization [facility] Address [address] [place] [address] Care Team Providers Care Resin Mixer Name Role Phone Sae Marr MD Primary Care Provider [phone] Encounter Details Date Type Department Care Team (Late st Contact Info) Description 06/22/2022 Lab Requisition [facility] Pathology & Laboratory Medicine - [address] [id number] Outr Resulting Lab, Provider Social History Tobacco [...] 10 See Note ug/dL 06/22/2022 17:49 EDT [facility] Comment: NOTE: Reference Ranges (from OCD IFU): Collected Before 10:00 AM: ??4 - 23 ug/dL Collected After 5:00 PM: ?2 - 14 ug/dL The results of this assay can be falsely elevated due to the consumption of Biotin. Blood VENOUS BLOOD / Unknown 06/22/2022 8:31 EDT 06/22/2022 17:03 EDT Provider Outr Resulting Lab CHEMISTRY & BLOOD GAS ORDERABLES [facility] [address] [place] [address] documented in this encounter Visit Diagnoses Not on filedocumented in this encounter Care Teams Resin Mixer Relationship Specialty Start Date End Date Sae Marr MD PCP - General Family Medicine - Primary Care 04/13/20 documented as of this encounter
--- OUTSIDE RECORDS SUMMARY | 2023-12-10 00:46 | XMS_ITS | Encounter Summary ---
Author Organization [facility] Address [address] [place] [address] Care Team Providers Care Panel Gluer Name Role Phone Altaf Hoover MD Primary Care Provider [phone] Reason for Visit * Reason Onset Date Comments Chest Pain 01/24/2019 Encounter Details Date Type Department Care Team (Late st Contact Info) Description 01/24/2019 Telephone [facility] [address] [place] [address] Rosanne Trinidad, RN [address] [place] [address] [address] [place] [address] Chest Pain Social History Tobacco [...] problems with med increase. Escript sent to [facility]' * Telephone Encounter - Rosanne Trinidad RN [...] Diagnoses Diagnosis NSTEMI (non-ST elevated myocardial infarction) ([facility])- Primary Acute myocardial infarction, subendocardial [...] 01/25/2019 added in this encounter Care Teams Panel Gluer Relationship Specialty Start Date End Date Altaf Hoover MD PCP - General 11/12/15 04/12/20 documented as of this encounter
--- OUTSIDE RECORDS SUMMARY | 2023-12-10 00:46 | XMS_ITS | Encounter Summary ---
Author Organization [facility] Address [address] [place] [address] Care Team Providers Care Clinical Exercise Physiologist Name Role Phone Sae Marr MD Primary Care Provider [phone] Encounter Details Date Type Department Care Team (Late st Contact Info) Description 12/19/2022 Lab Requisition [facility] Pathology & Laboratory Medicine - [address] [address] Outr Resulting Lab, Provider Social History Tobacco [...] PSA 1.3 <=3.5 ng/mL 12/20/2022 9:24 EDT [facility] Blood VENOUS BLOOD / Unknown 12/19/2022 9:58 EDT 12/19/2022 21:45 EDT Narrative [facility] - 12/20/2022 9:24 EDT NOTE: Serum PSA concentration should not be interpreted as absolute evidence for the presence or absence of malignant disease. Assayed on Siemens ADVIA OpVistaaur XPT using chemiluminescent technology.??Values obtained by using different assay methods cannot be used interchangeably. Provider Outr Resulting Lab CHEMISTRY & BLOOD GAS ORDERABLES [facility] [address] [place] [address] documented in this encounter Visit Diagnoses Not on filedocumented in this encounter Care Teams Clinical Exercise Physiologist Relationship Specialty Start Date End Date Sae Marr MD PCP - General Family Medicine - Primary Care 04/13/20 documented as of this encounter
--- OUTSIDE RECORDS SUMMARY | 2023-12-10 00:46 | XMS_ITS | Encounter Summary ---
Author Organization [facility] Address [address] [place] [address] Care Team Providers Care Railroad Brake Operator Name Role Phone Altaf Hoover MD Primary Care Provider [phone] Encounter Details Date Type Department Care Team [...] on filedocumented in this encounter Care Teams Railroad Brake Operator Relationship Specialty Start Date End Date Altaf Hoover MD PCP - General 11/12/15 04/12/20 documented as of this encounter
--- OUTSIDE RECORDS SUMMARY | 2023-12-10 00:46 | XMS_ITS | Encounter Summary ---
Author Organization [facility] Address [address] [place] [address] Care Team Providers Care Medical Associate Name Role Phone Altaf Hoover MD Primary Care Provider [phone] Sae Marr MD Primary Care Provider [phone] Encounter Details Date Type Department Care Team (Late st Contact Info) Description 04/09/2020 Lab Requisition [facility] Pathology & Laboratory Medicine - [address] [id number] Outr Resulting Lab, Provider Social History Tobacco [...] Priority Date/Time Associated Diagnosis Comments ZZCOVID-19 TEST [facility] PCR Today 04/09/2020 8:53 EST COVID-19 TESTING Routine 04/09/2020 8:53 EST documented in this encounter Results * COVID-19 TEST [facility] PCR (04/09/2020 8:53 EST) Swab ENTIRE NASOPHARYNX / Unknown 04/09/2020 8:53 EST 04/09/2020 15:58 EST Provider Outr Resulting Lab MICROBIOLOGY - GENERAL ORDERABLES Performing Organization Address City/State/[facility] Co de Phone Number [facility] [address] [place] [address] * COVID-19 TESTING (04/09/2020 8:53 EST) COVID-19 rt-PCR Result Negative Negative 04/10/2020 13:33 EST [facility] Comment: This test has [...] developed and its performance characteristics determined by [facility]. It has not been cleared or [...] This test is based on the [facility] COVID-19 Emergency Use Authorization (EUA) assay, with minor modification as defined by the FDA Performed on the Haptik Flex RT-PCR System. Performing Lab [facility] 04/10/2020 13:33 EST [facility] Swab 04/09/2020 8:53 EST 04/09/2020 15:58 EST Provider Outr Resulting Lab MICROBIOLOGY - GENERAL ORDERABLES Performing Organization Address City/State/[facility] Co de Phone Number [facility] [address] [place] [address] documented in this encounter Visit Diagnoses Not on filedocumented in this encounter Care Teams Medical Associate Relationship Specialty Start Date End Date Altaf Hoover MD PCP - General 11/12/15 04/12/20 Sae Marr MD PCP - General Family Medicine - Primary Care 04/13/20 documented as of this encounter
--- OUTSIDE RECORDS SUMMARY | 2023-12-10 00:46 | XMS_ITS | Encounter Summary ---
[place] [address] Care Team Providers Care Brass And Wind Instrument Repairer Name Role Phone Altaf Hoover MD Primary Care Provider [phone] Reason for Visit * Reason Comments Low Back Pain Bilateral Hip Pain Bilateral Leg Pain * Consultation (Routine) - Closed Specialty Diagnoses / Procedures Referred By Contac t Referred To Contact Orthopaedics Diagnoses Chronic left-sided low back pain/ left sciatica/ ask about imaging Altaf Hoover MD [facility] [address] [place] [address] [facility] [address]ine [address] [place] [address] Referral ID Status Reason Start Date Expiration Date Visits Re quested Visits Authorized [id number] Closed 02/06/2017 02/06/2018 1 1 Encounter Details Date Type Department Care Team (Late st Contact Info) Description 02/08/2017 9:20 AM EST Office [place] [address] Teddy Simental MD [facility] [place] [address] Chronic midline low back pain without sciatica [...] vertebra. MRI is reviewed from 12/15/15 from [facility]. This demonstrates once again findings consistent [...] EDT Office Visit Neurosurgery at [facility] [address] [place] [address] Rosanna Clement MD [address] [facility] [place] [address] Chau Blackburn PA [address] [facility] [place] [address] 03/20/2024 10:00 AM EST Office [place] [address] Tania Gates, OD [facility] [place] [address] 12/23/2024 8:00 AM EDT Office [place] [address] Tania Gates, OD [facility] [address] documented as of this encounter Visit Diagnoses Diagnosis Chronic midline low back pain without sciatica documented in this encounter Care Teams Brass And Wind Instrument Repairer Relationship Specialty Start Date End Date Altaf Hoover MD [address] [place] [address] PCP - General 04/19/11 09/18/17 documented as of this encounter
--- OUTSIDE RECORDS SUMMARY | 2023-12-10 00:46 | XMS_ITS | Encounter Summary ---
Author Organization [facility] Address [address] [place] [address] Care Team Providers Care Medical Care Evaluation Specialist Name Role Phone Altaf Hoover MD Primary Care Provider [phone] Sae Marr MD Primary Care Provider [phone] Encounter Details Date Type Department Care Team (Late st Contact Info) Description 08/05/2019 Lab Requisition [facility] Pathology & Laboratory Medicine - [facility] [address] [place], [place] [phone] Outr Resulting Lab, Provider Social History Tobacco [...] Outr Resulting Lab MICROBIOLOGY - GENERAL ORDERABLES [facility] [address] [place] [address] * COVID-19 TESTING (08/05/2019 11:13 EDT) COVID-19 rt-PCR Result Negative Negative 08/06/2019 3:15 EDT [facility] Comment: This test has [...] history, and epidemiological information. Performed on the Rifiniti Fusion instrument Performing Lab [facility] 08/06/2019 3:15 EDT [facility] Swab ENTIRE NASOPHARYNX / Unknown 08/05/2019 11:13 EDT 08/05/2019 19:48 EDT Provider Outr Resulting Lab MICROBIOLOGY - GENERAL ORDERABLES [facility] [address] [place] [address] documented in this encounter Visit Diagnoses Not on filedocumented in this encounter Care Teams Medical Care Evaluation Specialist Relationship Specialty Start Date End Date Altaf Hoover MD PCP - General 11/12/15 04/12/20 Sae Marr MD PCP - General Family Medicine - Primary Care 04/13/20 documented as of this encounter
--- OUTSIDE RECORDS SUMMARY | 2023-12-10 00:46 | XMS_ITS | Encounter Summary ---
Author Organization [facility] Address [address] [place] [address] Care Team Providers Care Closing Supervisor Name Role Phone Sae Marr MD Primary Care Provider [phone] Encounter Details Date Type Department Care Team (Late st Contact Info) Description 04/13/2020 Lab Requisition [facility] Pathology & Laboratory Medicine - [address] [address] Gale Calderon MD [address] [place] [address] [address] [place], [place] [id number] Encounter for other general examination Social History [...] X2, BIOPSY: - Hyperplastic polyps. 04/15/2020 11:56 [facility] Attestation By the signature below, the attending physician certifies that they have 1) personally conducted a gross and/or microscopic examination of the described specimen(s), and/or personally interpreted the results of laboratory testing of the described specimen(s), and 2) personally rendered or confirmed the above diagnosis. 04/15/2020 11:56 [facility] at 1156 Clinical History Bloating, GERD, h/o Diaz's, abdominal pain 04/15/2020 11:56 [facility] Gross Description A. [...] G2-G3. Darryn Up 04/14/2020 9:06 04/15/2020 11:56 [facility] Performing Lab [facility] 11:56 [facility] Scanned Images 04/15/2020 11:56 [facility] Tissue DESCENDING COLON STRUCTURE [...] Gale Calderon MD PATHOLOGY ORDERA [facility] Organization Address City/State/ZIP Co de Phone Number [facility] [address] [place] [address] documented in this encounter Visit Diagnoses Diagnosis Encounter for other general examination documented in this encounter Care Teams Closing Supervisor Relationship Specialty Start Date End Date Sae Marr MD PCP - General Family Medicine - Primary Care 04/13/20 documented as of this encounter
--- OUTSIDE RECORDS SUMMARY | 2023-12-10 00:46 | XMS_ITS | Encounter Summary ---
Author Organization [facility] Address [address] [place] [address] Care Team Providers Care Thin Film Technician Name Role Phone Sae Marr MD Primary Care Provider [phone] Encounter Details Date Type Department Care Team (Late st Contact Info) Description 05/11/2023 Lab Requisition [facility] Pathology & Laboratory Medicine - [address] [address] Chang Martel MD [address] [place] [phone] Polyp of colon Social History Tobacco Use [...] explore management options, if applicable. 05/12/2023 14:31 [facility] Final Diagnosis A. [...] X2, BIOPSY: - Hyperplastic polyp. 05/12/2023 14:31 [facility] Attestation By the signature below, the attending physician certifies that they have 1) personally conducted a gross and/or microscopic examination of the described specimen(s), and/or personally interpreted the results of laboratory testing of the described specimen(s), and 2) personally rendered or confirmed the above diagnosis. 05/12/2023 14:31 [facility] at 1431 Clinical History GERD, Diaz's esophagus, hx colon polyps, hiatal hernia, rectal polyps 05/12/2023 14:31 [facility] Gross Description A. [...] G1. ISABELLE CASAS(ASCP) 05/11/2023 17:58 05/12/2023 14:31 [facility] Performing Lab [facility] 05/12/2023 14:31 [facility] Scanned Images 05/12/2023 14:31 [facility] Tissue SPECIMEN FROM [...] 05/11/2023 17:02 EST Chang Martel MD PATHOLOGY CASSI [facility] Organization Address City/State/ZIP Co de Phone Number [facility] [address] [place] [address] documented in this encounter Visit Diagnoses Diagnosis Polyp of colon Benign neoplasm of colon documented in this encounter Care Teams Thin Film Technician Relationship Specialty Start Date End Date Sae Marr MD PCP - General Family Medicine - Primary Care 04/13/20 documented as of this encounter
--- OUTSIDE RECORDS SUMMARY | 2023-12-10 00:46 | XMS_ITS | Encounter Summary ---
Author Organization [facility] [place] [address] Care Team Providers Care Charge Authorizer Name Role Phone Unavailable Primary Care Provider Unavailabl e Encounter Details Date Type Department Care Team (Late st Contact Info) Description 09/21/2017 Ancillary Procedure Radiology Library [facility] [place] [address] Robinson Vazquez, MANAGER STUDENT SERVICES [address] [place] [address] Social History Tobacco Use Types Packs/Day Years [...] Office Visit Neurosurgery at [address] [place] [place] [phone] Rosanna Clement MD [address] [place] [address] Chau Blackburn PA [address] [place] [address] 03/20/2024 10:00 AM EST Office [place] [address] Tania Gates, [facility] [place] [address] 12/23/2024 8:00 AM EDT Office [place] [address] Tania Gates, [facility] [place] [address] documented as of this encounter Procedures Procedure Name Priority Date/Time Associated Diagnosis Comments FILM LIBRARY STORAGE ONLY MR SPINE Routine 09/21/2017 12:00 AM EDT documented in this encounter Results * Film Library- Storage Only MR Spine (09/21/2017 12:00 AM EDT) Narrative [facility] - 04/01/2022 12:20 AM EST This exam is auto-finalizing. It's purpose is for storage only. Robinson Vazquez APRN IMG FILM LIBRARY O RDERABLES [place], [place] documented in this encounter Visit Diagnoses Not on filedocumented in this encounter
--- OUTSIDE RECORDS SUMMARY | 2023-12-10 00:46 | XMS_ITS | Encounter Summary ---
Author Organization [facility] [place] [address] Care Team Providers Care Wing Coverer Name Role Phone Karen Barbosa MD Primary Care Provider [phone] Encounter Details Date Type Department Care Team (Late st Contact Info) Description 09/14/2005 Orders [place] [address] Chang Chew MD [facility] [place] [address] Social History Tobacco Use Types Packs/Day Years Used Date Smoking Tobacco: Never Assessed [facility] Inpatient Questions Answer [...] Office Visit Neurosurgery at [facility] [place] [address] Rosanna Clement MD [address] [place] [address] Chau Blackburn PA 10 [place] [address] 03/20/2024 10:00 AM EST Office [place] [address] Tania Gates, [facility] [place] [address] 12/23/2024 8:00 AM EDT Office [place] [address] Tania Gates, [facility] [place] [address] documented as of this encounter Procedures Procedure [...] on filedocumented in this encounter Care Teams Wing Coverer Relationship Specialty Start Date End Date Karen Barbosa MD [address] [place] [address] PCP - General Family Medicine 10/04/22 documented as of this encounter
--- OUTSIDE RECORDS SUMMARY | 2023-12-10 00:46 | XMS_ITS | Encounter Summary ---
Author Organization [facility] [place] [address] Care Team Providers Care Parts Cataloger Name Role Phone Altaf Hoover MD Primary Care Provider [phone] Encounter Details Date Type Department Care Team (Latest Contact Info) Description 2015 - 2015 11:59 PM EDT Hospital Encounter Radiology Library at [facility] [place] [address] Pop Xiao MD [facility] [place] [address] Pain Discharge Disposition: Home Social History Tobacco [...] Visit Neurosurgery at [facility] [address] [place] [address] Rosanna Clement MD [address] [facility] [place] [address] Chau Blackburn PA [address] [facility] [place] [address] 03/20/2024 10:00 AM EST Office [place] [address] Tania Gates, OD [facility] [place] [address] 12/23/2024 8:00 AM EDT Office [place] [address] Tania Gates, OD [facility] [place] [address] documented as of this encounter Procedures Procedure Name Priority Date/Time Associated Diagnosis Comments FILM LIBRARY STORAGE ONLY DX SPINE Routine 2015 12:00 AM EDT Pain documented in this encounter Results * Film Library- Storage Only DX Spine (2015 12:00 AM EDT) Narrative [facility] - 02/06/2017 1:34 PM EST This exam is for storage only and is auto-finalizing. Pop Xiao MD IMG FILM LIBRARY ORD ERABLES [place], [place] documented in this encounter Visit Diagnoses Diagnosis Pain Generalized pain documented in this encounter Care Teams Parts Cataloger Relationship Specialty Start Date End Date Altaf Hoover MD [address] [place] [address] PCP - General 04/19/11 09/18/17 documented as of this encounter
--- OUTSIDE RECORDS SUMMARY | 2023-12-10 00:46 | XMS_ITS | Encounter Summary ---
Author Organization [facility] Address [address] [place] [address] Care Team Providers Care Car Repairer Pullman Name Role Phone Sae Marr MD Primary Care Provider [phone] Encounter Details Date Type Department Care Team (Late st Contact Info) Description 07/03/2020 Lab Requisition [facility] Pathology & Laboratory Medicine - [address] [phone] Outr Resulting Lab, Provider Social History Tobacco [...] 0.0 - 3.5 ng/mL 07/03/2020 17:17 EDT [facility] Blood VENOUS BLOOD / Unknown 07/03/2020 7:56 EDT 07/03/2020 16:15 EDT Narrative [facility] - 07/03/2020 17:17 EDT NOTE: Serum PSA concentration should not be interpreted as absolute evidence for the presence or absence of malignant disease. Assayed on Siemens ADVIA CaseMetrixaur XPT using chemiluminescent technology.??Values obtained by using different assay methods cannot be used interchangeably. Provider Outr Resulting Lab CHEMISTRY & BLOOD GAS ORDERABLES [facility] [address] [place] [address] documented in this encounter Visit Diagnoses Not on filedocumented in this encounter Care Teams Car Repairer Pullman Relationship Specialty Start Date End Date Sae Marr MD PCP - General Family Medicine - Primary Care 04/13/20 documented as of this encounter
--- OUTSIDE RECORDS SUMMARY | 2023-12-10 00:46 | XMS_ITS | Referral Summary ---
Author Organization [facility] Address [address] [place] [address] Care Team Providers Care Hand Crocheter Name Role Phone Sae Marr MD Primary Care Provider [phone] Allergies Active Allergy Reactions Criticality Noted Date [...] premature coronary heart disease 02/13/2019 Atypical angina ([facility]) 02/13/2019 PUD (peptic ulcer disease) 02/13/2019 H/O heart artery stent 02/13/2019 Smoker 08/25/2017 CARLOTA (obstructive sleep apnea) 08/25/2017 Type 2 diabetes mellitus, wi thout long-term current use of insulin ([facility]) 08/25/2017 Hyperlipidemia 08/25/2017 CAITLYN (acute kidney injury) ([facility]) 08/25/2017 Diaz's esophagus Resolved Problems Problem Noted Date Diagnosed Date Resolved Date NSTEMI (non-ST elevated myoc ardial infarction) ([facility]) 08/25/2017 04/12/2019 Social History Tobacco Use [...] BLOOD GA S ORDERABLES Performing Organization Address City/State/[facility] Co de Phone Number [facility] [address] [place] [address] from Last 3 Months or Most Recently Relevant to Health Maintenance Advance Directives For more information, please contact: [phone] * Full Code (Latest Code Status on File) Date Activated Date Inactivated Comments 08/25/2017 2:36 08/26/2017 15:45 Question Answer Comments Reason for decision includes: Full code consistent with overall plan of care Who participated in the discussion? Not Discusse d Care Teams Hand Crocheter Relationship Specialty Start Date End Date Sae Marr MD PCP - General Family Medicine - Primary Care 04/13/20
--- OUTSIDE RECORDS SUMMARY | 2023-12-10 00:46 | XMS_ITS | Encounter Summary ---
[place] [address] Care Team Providers Care Radiologic Technologist Chief Name Role Phone Altaf Hoover MD Primary Care Provider [phone] Encounter Details Date Type Department Care Team (Late st Contact Info) Description 08/24/2017 [place] [address] Shereen Talbert MD [facility] [place] [address] Social History Tobacco Use Types Packs/Day Years [...] Referring Provider: Dr. Lion Borjas Patient Location: [facility] ED Presenting Symptoms per OSH: 51yoM [...] unless he reaches the threshhold for a slab inspector alert. Therefore I have accepted the patient [...] Office Visit Neurosurgery at [facility] [place] [address] [place] [address] [place] [address] 03/20/2024 10:00 AM EST Office [place] [address] [facility] [place] [address] 12/23/2024 8:00 AM EDT Office [place] [address] Tania Gates, [facility] [place] [address] documented as of this encounter Visit Diagnoses Not on filedocumented in this encounter Care Teams Radiologic Technologist Chief Relationship Specialty Start Date End Date Altaf Hoover MD [address] [place] [address] PCP - General 04/19/11 09/18/17 documented as of this encounter
--- OUTSIDE RECORDS SUMMARY | 2023-12-10 00:46 | XMS_ITS | Encounter Summary ---
Author Organization [facility] [place] [address] Care Team Providers Care English Composition Instructor Name Role Phone Karen Barbosa MD Primary Care Provider Encounter Details Date Type Department Care Team (Late st Contact Info) Description 06/14/2004 Orders [place] [address] Chang Chew MD [facility] [place] [address] Social History Tobacco Use Types Packs/Day Years Used Date Smoking Tobacco: Never Assessed [facility] Inpatient Questions Answer Date Recorded Does [...] Neurosurgery at [facility] [place] [id number] Rosanna Clement MD [address] [place] [address] Chau Blackburn PA [address] [place] [address] 03/20/2024 10:00 AM EST Office [place] [address] Tania Gates, OD [facility] [place] [address] 12/23/2024 8:00 AM EDT Office [place] [address] Tania Gates, OD [facility] [place] [place] [address] documented as of this encounter Procedures Procedure Name Priority Date/Time Associated Diagnosis Comments SURGICAL PATHOLOGY REPORT Routine 06/14/2004 4:14 PM EDT documented in this encounter Results * Surgical Pathology Report (06/14/2004 4:14 PM EDT) Surgical Pathology Report [id number] ? Location: The signing pathologist has (i) [...] rendering the final pathologic diagnosis. NAYELI CHOWDHURY 06/14/2004 4:14 PM EDT Chang Chew MD PATHOLOGY/CYTOLOGY O RDERABLES NAYELI CHOWDHURY documented in this encounter Visit Diagnoses Not on filedocumented in this encounter Care Teams English Composition Instructor Relationship Specialty Start Date End Date Karen Barbosa MD [address] [place] [address] PCP - General Family Medicine 10/04/22 documented as of this encounter
--- OUTSIDE RECORDS SUMMARY | 2023-12-10 00:46 | XMS_ITS | Encounter Summary ---
[place] [address] Care Team Providers Care Consulting Solution Director Name Role Phone Altfa Hoover MD Primary Care Provider [phone] Encounter Details Date Type Department Care Team (Late st Contact Info) Description 04/26/2011 9:30 AM EST - 04/26/2011 10:30 AM EST Surgery [place] [address] Kirsten Chew MD [facility] [place] [address] EGD WITH BIOPSY (WRVU 2.39) Social History [...] not get better as expected. Monday-Monday Clinic [phone] 8a-5p Same Day Endo [phone] 7a-8p Otherwise contact [phone] and ask to speak to the mathematics instructor credit resolution representative Follow-up care is a [place] part of [...] 9:45 AM EDT Office Visit Neurosurgery at [facility] [address] [place] [address] Rosanna Clement MD 10 [facility] [place] [address] Chau Blackburn PA 10 [facility] [place] [address] 03/20/2024 10:00 AM EST Office [place] [address] Tania Gates, [facility] [place] [address] 12/23/2024 8:00 AM EDT Office [place] [address] Tania Gates, [facility] [place] [address] documented as of this encounter Procedures Procedure [...] 11:25 AM EST) Surgical Pathology Report ? [facility] ? Provider: ?? KIRSTEN CHEW ?? Pt. Name: ?? GIDEON SMITH, SAMY Oreilly ? Acc #: ?[id number] ?Pt. ? Col Date: ?? 04/26/2011 ? [...] ? BJM ? 04/28/11 Verified by: ? Lisovsky MD, Cr ? Pathologist ? (Electronic Signature) ? The [...] Soft, figueroa tissues. ? Sections/Processing: ??(T2) ? [facility] ? Provider: ?? KIRSTEN CHEW ?? Pt. Name: ?? GIDEON SMITH, SAMY Oreilly ? Acc #: ?[id number] ?Pt. ? Col Date: ?? 04/26/2011 ? [...] Clinical History/Diagnosis: ? Multiple erosions in duodenum. SKIPBAKARI DUMONTENIOIUM 04/26/2011 11:2 5 AM EST Kirsten Chew MD PATHOLOGY/CYTOLOGY O SAEID Performing Organization Address [facility] de Phone Number NAYELI CHOWDHURY * Specimen to Pathology (surgical or derm) (04/26/2011 9:53 AM EST) AP Specimen 04/26/2011 9:53 AM EST 04/26/2011 9:53 AM EST Narrative CERNER MILLENNIUM - 04/26/2011 9:53 AM EST Specimen requisition ordered. ??Separate Pathology report to follow Kirsten Chew MD PATHOLOGY/CYTOLOGY O SAEID Performing Organization Address [facility] Co de Phone Number NAYELI CHOWDHURY * Specimen to Pathology (surgical or derm) (04/26/2011 9:53 AM EST) AP Specimen 04/26/2011 9:53 AM EST 04/26/2011 9:53 AM EST Narrative CERNER MILLENNIUM - 04/26/2011 9:53 AM EST Specimen requisition ordered. ??Separate Pathology report to follow Kirsten Chew MD PATHOLOGY/CYTOLOGY O RDERABLES NAYELI CHOWDHURY * UPPER GI ENDOSCOPY (04/26/2011 8:42 AM EST) UPPER GI ENDOSCOPY [facility] Endoscopy ___ Patient Name: Samy Patricio ? Procedure Date: 04/26/2011 8:42 AM ? N: [id number] ? Date of : 1965 ? Age: 45 ? Order #: [id number] ? ___ Procedure: ? Upper GI endoscopy Indications: ? Heartburn, Epigastric abdominal pain Providers: ? Kirsten Chew MD, Masha ? GUILLAUME Johnson, Aiden Iyer, ? Predatory Animal Exterminator Referring MD: ?Altaf Hoover MD Medicines: ? [...] Altaf Hoover MD GENERAL SURGICAL ORD ERABLES Performing Organization Address [facility] Co de Phone Number PROVATION * POCT GLUCOSE LAB USE ONLY (04/26/2011 8:29 AM EST) Glucose, POC 163 60 - 199 mg/dL [facility] Comment: Supplemental ranges: <110 mg/dL before meals <200 mg/dL all other times of the day Blood specimen (specimen) 04/26/2011 8:29 AM EST 04/26/2011 8:29 AM EST Kirsten Chew MD POINT OF CARE TEST O RDERASERGIO NAYELI CHOWDHURY documented in this encounter Visit [...] (CANCELED) 30 mL/hr, Intravenous, CONTINUOUS, Starting on Mon04/26/11 at 0830, Until Mon04/26/11 at 1403, Endoscopy (Day of Procedure) 0830 (New Bag - Prov ider: Radha Grace RN) PRN Medication Order 04/24/2011 04/25/2011 04/26/2011 benzocaine (HURRICANE) 20 % oral spray (CANCELED) CONTINUOUS PRN, Pain, Starting on Mon04/26/11 at 0937, Until e 04/26/11 at 1403, Intra-Operative (Intra-Procedure) 0937 (New [...] PRN, Starting on Mon04/26/11 at 0931, Until e 04/26/11 at 1403, Sleep, Intra-Operative (Intra-Procedure), Routine 0931 (Given - Provid er: Masha Johnson RN)0939 (Given - Provider: Masha Johnson RN)0942 (Given - Provider: Masha Johnson RN) documented in this encounter Care Teams Consulting Solution Director Relationship Specialty Start Date End Date Altaf Hoover MD [address] [place] [address] PCP - General 04/19/11 09/18/17 documented as of this encounter
--- OUTSIDE RECORDS SUMMARY | 2023-12-10 00:46 | XMS_ITS | Encounter Summary ---
Author Organization [facility] Address [address] [place] [address] Care Team Providers Care Director Of Women'S Services Name Role Phone Sae Marr MD Primary Care Provider [phone] Encounter Details Date Type Department Care Team (Late st Contact Info) Description 10/28/2021 Lab Requisition [facility] Pathology & Laboratory Medicine - [address] [id number] Outr Resulting Lab, Provider Social History Tobacco [...] 55.4(L) 55.8 - 66.1 % 10/29/2021 13:54 [facility] Albumin g/dL 3.7 3.6 - 5.2 g/dL 10/29/2021 13:54 [facility] Alpha-1 % 4.6 2.9 - 4.9 % 10/29/2021 13:54 [facility] Alpha-1 g/dL 0.30 0.15 - 0.40 g/dL 10/29/2021 13:54 [facility] Alpha-2 % 13.8(H) 7.1 - 11.8 % 10/29/2021 13:54 [facility] Alpha-2 g/dL 0.90 0.50 - 1.00 g/dL 10/29/2021 13:54 [facility] Beta % 14.7(H) 8.4 - 13.1 % 10/29/2021 13:54 [facility] Beta g/dL 1.00 0.60 - 1.20 g/dL 10/29/2021 13:54 [facility] Gamma % 11.5 11.1 - 18.8 % 10/29/2021 13:54 [facility] Gamma g/dL 0.80 0.60 - 1.60 g/dL 10/29/2021 13:54 EDT [facility] SPEP Comment No apparent monoclonal protein seen on serum electrophoresis 10/29/2021 13:54 EDT [facility] Comment:See scanned/suppleme ntary report. Total Protein 6.6 6.3 - 8.2 g/dL 10/29/2021 13:54 EDT [facility] Blood VENOUS BLOOD / Unknown 10/28/2021 8:20 EDT 10/28/2021 17:19 EDT Provider Outr Resulting Lab CHEMISTRY & BLOOD GAS ORDERABLES Performing Organization Address [facility] de Phone Number [facility] [address] [place] [address] * PROTEIN, TOTAL (10/28/2021 8:20 EDT) Blood VENOUS BLOOD / Unknown 10/28/2021 8:20 EDT 10/28/2021 17:19 EDT Provider Outr Resulting Lab CHEMISTRY & BLOOD GAS ORDERABLES Performing Organization Address [facility] Co de Phone Number [facility] [address] [place] [address] documented in this encounter Visit Diagnoses Not on filedocumented in this encounter Care Teams Director Of Women'S Services Relationship Specialty Start Date End Date Sae Marr MD PCP - General Family Medicine - Primary Care 04/13/20 documented as of this encounter
--- OUTSIDE RECORDS SUMMARY | 2023-12-10 00:47 | XMS_ITS | Encounter Summary ---
Author Organization [facility] Address [address] [place] [address] Care Team Providers Care Processing Analyst Name Role Phone Derrick Melara MD Primary Care Provider [phone] Encounter Details Date Type Department Care Team (Late st Contact Info) Description 11/09/2015 Results Only [facility] [phone] Naomie Blum MD [address] [facility] [place], [place] [id number] Social History Tobacco Use Types Packs/Day Years [...] ? SAMY PATRICIO ? Accession #: ? [id number] ? : ? 1965 (Age: 49) ??M [...] ANTIBODY(CLONE)(BLOC K):RESULT H PYLORI (Rabbit Monoclonal (SP48), [place]) (B1): Negative for definitive microorganisms NOTE: ??One [...] performance characteristics have been determined by [facility]. ??The positive and negative controls worked [...] (ASCP) 11/10/2015 8:56 AM End of Report [facility] 11/09/2015 19:3 7 EDT 11/09/2015 19:37 EDT Naomie Blum MD PATHOLOGY ORDERA [facility] Organization Address City/State/ZIP Co de Phone Number [facility] [address] [place] [address] documented in this encounter Visit Diagnoses Not on filedocumented in this encounter Care Teams Processing Analyst Relationship Specialty Start Date End Date Derrick Melara MD [address] [place] [address] PCP - General 09/26/12 11/11/15 documented as of this encounter
--- OUTSIDE RECORDS SUMMARY | 2023-12-10 00:47 | XMS_ITS | Encounter Summary ---
Author Organization [facility] Address [address] [place] [address] Care Team Providers Care Plug Shaper Hand Name Role Phone Derrick Melara MD Primary Care Provider [phone] Encounter Details Date Type Department Care Team (Late st Contact Info) Description 02/18/2014 Results Only [facility] ([facility] [address] [place], [place] [address] Mendoza Beatty, [address] [facility] [address] [place], [place] [address] Social History Tobacco Use Types Packs/Day Years [...] ? SAMY PATRICIO ? Accession #: ? [id number] ? : ? 1965 (Age: 48) ??M [...] King 02/19/2014 11:51 AM End of Report [facility] 02/18/2014 9:03 EST 02/19/2014 9:03 EST Mendoza Beatty DO PATHOLOGY ORDER TREVON [facility] [address] [place] [address] documented in this encounter Visit Diagnoses Not on filedocumented in this encounter Care Teams Plug Shaper Hand Relationship Specialty Start Date End Date Derrick Melara MD [address] [place] [address] PCP - General 09/26/12 11/11/15 documented as of this encounter
--- OUTSIDE RECORDS SUMMARY | 2023-12-10 00:47 | XMS_ITS | Encounter Summary ---
Author Organization [facility] Address [address] [place] [address] Care Team Providers Care Vender Name Role Phone Unavailable Primary Care Provider Unavailabl e Encounter Details Date Type Department Care Team (Latest Contact Info) Description 02/12/2001 12:14 EST Hospital Encounter [facility] - Other [address] [place] [address] Jp Scherer MD Unknown, Provider, Discharge Disposition: [...] BLOOD GA S ORDERABLES Performing Organization Address [facility] Co de Phone Number [facility] [address] [place] [address] * HEPATITIS C ANTIBODY (02/12/2001 16:37 EST) Hepatitis C Ab Neg [facility] 02/12/2001 16:3 7 EST 02/12/2001 17:35 EST Jp Scherer MD CHEMISTRY & BLOOD GA S ORDERABLES Performing Organization Address [facility] Co de Phone Number [facility] [address] [place] [address] * HEPATITIS B CORE ANTIBODY (02/12/2001 16:37 EST) Hep B Core Ab Neg [facility] 02/12/2001 16:3 7 EST 02/12/2001 17:35 EST Jp Scherer MD CHEMISTRY & BLOOD GA S ORDERABLES Performing Organization Address [facility] Co de Phone Number [facility] [address] [place] [address] * HEPATITIS B SURFACE ANTIGEN (02/12/2001 16:37 EST) Hepatitis B Surface Ag Neg [facility] 02/12/2001 16:3 7 EST 02/12/2001 17:35 EST Jp Scherer MD CHEMISTRY & BLOOD GA S ORDERABLES Performing Organization Address City/[facility]/ZIP Co de Phone Number [facility] [address] [place] [address] * HEPATITIS B SURFACE ANTIBODY (02/12/2001 16:37 EST) Hepatitis B Surface Ab Neg [facility] 02/12/2001 16:3 7 EST 02/12/2001 17:35 EST Jp Scherer MD CHEMISTRY & BLOOD GA S ORDERABLES Performing Organization Address City/[facility] Co de Phone Number [facility] [address] [place] [address] * (ABNORMAL) HEMAGRAM & DIFF (02/12/2001 16:37 [...] S Q LOAD [facility] [address] [place] [address] documented in this encounter Visit Diagnoses Not on filedocumented in this encounter
--- OUTSIDE RECORDS SUMMARY | 2023-12-10 00:47 | XMS_ITS | Encounter Summary ---
Author Organization [facility] Address [address] [place] [address] Care Team Providers Care Equipment Service Engineer Name Role Phone Unavailable Primary Care Provider Unavailabl e Encounter Details Date Type Department Care Team (Latest Contact Info) Description 10/24/2000 19:26 EDT Hospital Encounter [facility] - Other [address] [place] [address] Enrique Crain MD [address] [address] Unknown, MD Derrell Discharge Disposition: [...] which should be confirmed with high-resolution CT. /[facility] Addendum: The ICD9/diagnostic code has been [...] which should be confirmed with high-resolution CT. /[facility] Addendum: The ICD9/diagnostic code has been [...] & PF4 ORD ERABLES Performing Organization Address [facility] Co de Phone Number [facility] [address] [place] [address] * SYPHILIS SERO (RPR) (10/24/2000 16:25 EDT) Syphilis Sero (RPR) NONREACT. NR Dils [facility] 10/24/2000 16:2 5 EDT 10/24/2000 16:33 EDT Enrique Crain MD IMMUNOLOGY AND SEROL OGY ORDERABLES Performing Organization Address [facility] Phone Number [facility] [address] [place] [address] * SYPHILIS AB IGG, IGM (10/24/2000 16:25 EDT) Pathologist [facility] RPR SL NONREACT. [facility] FTA NONREACT. Assayed by [facility], [place], [place] [facility] 10/24/2000 16:2 5 EDT 10/24/2000 16:33 EDT Enrique Crain MD IMMUNOLOGY AND SEROL OGY ORDERABLES Performing Organization Address [facility] Co de Phone Number [facility] [address] [place] [address] * (ABNORMAL) HEMAGRAM & DIFF (10/24/2000 16:25 EDT) WBC 11.75(H) 4.0 - 10.4 K/cmm [facility] RBC 5.41 4.36 - 5.78 M/cmm [facility] Hemoglobin 16.5 13.8 - 17.3 gm/dl [...] Neutrophils 7.75 2.20 - 8.85 K/cmm [facility] ABS Lymphs 3.10 1.09 - 3.30 [...] S Q LOAD [facility] [address] [place] [address] * (ABNORMAL) ANGIOTENSIN CONVERTING ENZYME (CHRIS) (10/24/2000 16:25 EDT) Angiotensin Converting Enzyme 57Unit: U/L ??(Note) -- EXPECTED VALUES -- ? (Ref Range) 7 to 46 ? The use of CHRIS-inhibiting anti-hypertensi ve drugs will cause ? decreased angiotensin converting enzyme values. ? TEST PERFORMED OR REFERRED BY [facility] ? [facility] ? [address] ? [place], [place] ??[address] ?(H) [facility] 10/24/2000 16:2 5 EDT 10/24/2000 16:33 EDT Enrique Crain MD CHEMISTRY & BLOOD GA S ORDERABLES Performing Organization Address [facility] de Phone Number [facility] [address] [place] [address] * ANTI NUCLEAR ANTIBODY (10/24/2000 16:25 EDT) Anti Nuclear Ab <40 0 - 40 Dils [facility] 10/24/2000 16:2 5 EDT 10/24/2000 16:33 EDT Enrique Crain MD IMMUNOLOGY AND SEROL OGY ORDERABLES Performing Organization Address [facility] de Phone Number [facility] [address] [place] [phone] documented in this encounter Visit Diagnoses Not on filedocumented in this encounter
--- OUTSIDE RECORDS SUMMARY | 2023-12-10 00:47 | XMS_ITS | Encounter Summary ---
Author Organization [facility] Address [address] [place] [address] Care Team Providers Care Shipping Room Supervisor Name Role Phone Derrick Melara MD Primary Care Provider [phone] Encounter Details Date Type Department Care Team (Latest Contact Info) Description 11/09/2015 9:23 EDT - 11/09/2015 23:59 EDT Hospital Encounter [address] [address] Unknown, Provider, Discharge Disposition: Home or Self Care Social History Tobacco Use Types Packs/Day Years Used Date Smoking Tobacco: Never Assessed Sex and Gender Information Value Date Recorded Sex Assigned at Not on file Gender Identity Male 02/16/2019 6:16 EST Sexual Orientation Not on file documented as of this encounter Discharge Disposition Disposition Code Departure Means Destination Home or Self [facility] documented in this encounter Plan of Treatment Not on file documented as of this encounter Visit Diagnoses Not on filedocumented in this encounter Care Teams Shipping Room Supervisor Relationship Specialty Start Date End Date Derrick Melara MD [address] [place] [address] PCP - General 09/26/12 11/11/15 documented as of this encounter
--- OUTSIDE RECORDS SUMMARY | 2023-12-10 00:47 | XMS_ITS | Encounter Summary ---
Author Organization [facility] Address [address] [place] [address] Care Team Providers Care Drain Tile Press Operator Name Role Phone Unavailable Primary Care Provider Unavailabl e Encounter Details Date Type Department Care Team (Latest Contact Info) Description 11/16/2000 19:45 EDT Hospital Encounter [facility] [place] [address] [place] [address] Justin Poon MD [address] [address] Discharge Disposition: Auto Discharge Social [...] of the brain with and without contrast. /[facility] Procedure Note Luc Sears MD - 01/30/2009 [...] of the brain with and without contrast. /[facility] Justin Poon MD IMG MRI ORDERABLES documented in this encounter Visit Diagnoses Not on filedocumented in this encounter
--- OUTSIDE RECORDS SUMMARY | 2023-12-10 00:47 | XMS_ITS | Encounter Summary ---
Author Organization [facility] Address [address] [place] [address] Care Team Providers Care Slurry Worker Name Role Phone Altaf Hoover MD Primary Care Provider [phone] Reason for Referral * Consult (Routine) - New Request Specialty Diagnoses / Procedures Referred By Keith sanchez Referred To Contact Diagnoses NSTEMI (non-ST elevated myocardial infarction) ([facility]) Timothy Medel PA-C [address] [place] [phone] Jg Stubbs MD [address] [place] [phone] Referral ID Status Reason Start Date Expiration Date Visits Requested Visits Authorized [id number] New Request Specialty Services Required 08/25/2017 1 1 Question Answer Reason for Request: cad Expected Discharge Date (Inpatient Only): 08/26/2017 SITE [facility] * Consult (Routine) - Closed Specialty Diagnoses / Procedures Referred By Contadrian t Referred To Contact Diagnoses NSTEMI (non-ST elevated myocardial infarction) ([facility]) Timothy Medel PA-C [address] [place] [phone] Referral ID Status Reason Start Date Expiration Date V isits Requested Visits Authorized [id number] Closed Specialty Services Required 08/25/2017 1 1 Question Answer Reason for Request: cad Expected Discharge Date (Inpatient Only): 08/26/2017 SITE [facility] * Follow Up (Routine) - New Request Specialty Diagnoses / Procedures Referred By Keith t Referred To Contact Diagnoses NSTEMI (non-ST elevated myocardial infarction) ([facility]) Timothy Medel PA-C [address] [place] [phone] Referral ID Status Reason Start Date Expiration Date Visits Requested Visits Authorized [id number] New Request Continuity of Care 08/25/2017 1 1 Question Answer Reason for Request: cad Expected Discharge Date (Inpatient Only): 08/26/2017 Reason for Visit * Reason Comments Chest Pain pt presents from [facility] for NSTEMI. pt CP began at 1400. 1st trop .03, 2nd trop .98. CXR neg. a nitro drip was initiated at 15 mcg/min. heparin drip started at 9763-8806 units/hr with a 4000 unit bolus. pt recieved 4 mg zofran as well. OA pt appears in NAD, VSS, pain is 1/10 described as mostly pressure. Encounter Details Date Type Department Care Team (Late st Contact Info) Description 08/25/2017 1:14 EDT - 08/26/2017 13:38 EDT Hospital Encounter [facility] Cardiac/Telemetry Unit [address] [place] [address] Bella Solomon MD [address] [place] [phone] Kerri Stein MD MPH [address] [place] [phone] Chang Garduno MD [address] [place] [address], [place] [phone] NSTEMI (non-ST elevated myocardial infarction) ([facility]) (Primary Dx) Discharge Disposition: Home or Self [...] failure, unspecified-N17.9[ICD-10-CM] 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-I25.10[ICD-10-CM] F17.210 Nicotine dependence, cigarettes, uncomplicated-F17.210[ICD-10-CM] G47.33 Obstructive sleep apnea (adult) (pediatric)-G47.33[ICD-10-CM] E78.5 Hyperlipidemia, unspecified-E78.5[ICD-10-CM] E11.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-E11.22[ICD-10-CM] N18.9 Chronic kidney disease, unspecified-N18.9[ICD-10-CM] Z82.49 Family history of ischemic heart disease and other diseases of the circulatory system-Z82.49[ICD-10-CM] Z79.84 meterman (current) use of oral hypoglycemic drugs-Z79.84[ICD-10-CM] documented in this encounter Discharge Summaries * Moreno VioletDO - 08/26/2017 1338 EDT Cardiology Discharge Summary Primary Care Provider: Altaf Hoover Attending Physician: JP MOODY MD Admit Date: 08/25/2017 Discharge Date: 08/26/2017 Disposition: Home or self care Problems and Procedures Admitting Diagnosis: NSTEMI (non-ST elevated myocardial infarction) ([facility]) Final Hospital Diagnosis: NSTEMI, type I Additional Problems Managed in the Hospital Active Hospital Problems Diagnosis Date Noted ??? *NSTEMI (non-ST elevated myocardial infarction) ([facility]) 08/25/2017 ??? Tobacco abuse 08/25/2017 ??? CARLOTA (obstructive sleep apnea) 08/25/2017 ??? Type 2 diabetes mellitus, without long-term current use of insulin ([facility]) 08/25/2017 ??? Hyperlipidemia 08/25/2017 ??? CAITLYN (acute kidney injury) ([facility]) 08/25/2017 Resolved Hospital Problems Diagnosis Date Noted Date Resolved No resolved problems to display. Principal Procedure: [facility] (08/25/2017) Left main: Free of angiographically significant [...] pack/yr hx) and strong family history of VA (brother 40's,mother 50's, father 60's) with no personal prior cardiac history who was transferred from [facility]. ?? At [facility] he was noted to be hemodynamically stable. An EKG was done which showed TW flattening in III, aVF without significant ST changes. Pain was relieved temporarily with SL NTG x1. He was loaded with ASA, plavix, given metoprolol, and started on heparin gtt with bolus. At [facility], pain continued requiring nitro gtt [...] BiPAP compliance - Improved glycemic control. Given VA, consider starting insulin - PCP and cardiology [...] 08/24/2017 Discharge Follow Up Appointments Scheduled with [facility] Appointments Outside of [facility] We Will Schedule Follow-up appointments and procedures Amb Consult/Follow Up Cardiac Rehabilitation Reason for Request: cad Expected Discharge Date (Inpatient Only): 08/26/2017 Practice Site (External Referral Only): [facility] Authorizing Provider: Timothy Medel PA Amb Consult/Follow Up Cardiology Reason for Request: cad Expected Discharge Date (Inpatient Only): 08/26/2017 Practice Site (External Referral Only): [facility] Authorizing Provider: Timothy Medel PA [...] up has been requested with En[place] at [facility]. * Adan Sadler MD - 08/25/2017 1516 EDT Brief Cardiology Progress Note CC: Chest Pain ID: Samy is a 51 yo male with DMI, CKD, CARLOTA (non-compliant with BiPAP), tobacco abuse (current 2 PPD with >80 pack/yr hx), and strong family history of VA (brother 40's, mother 50's, father 60's) withno personal prior who was transferred from [facility] for NSTEMI type I. Noted to be HD stable at [facility]. EKG showed TW flattening in III, aVF without significant ST changes. Pain was relieved temporarily with SL NTG x1. He was loaded with ASA, plavix, given metoprolol, and started on heparin gtt with bolus. At [facility], pain continued requiring nitro gtt [...] Erika Roland MD - 08/25/2017 0131 EDT Vacuum Extractor Operator Addendum (please see software intern/resident H&P for full details) 51yo M with DM2, HLD, CKD, current 2 ppd smoker (>80 pack-year history), strong family history of VA (brother in 40s, mother in 50s, father 60s) but no personal prior cardiac history who was transferred from [facility] for NSTEMI. Few nights ago chest pressure woke him from sleep but no further episodes with exertion or at rest until today at 2PM he developed central chest pressure with SOB and diaphoresis. On arrival to [facility] ED SL NTG x1 relieved [...] no significant ST changes. On arrival to [facility], afebrile, HR 60-70s, BP 110-120s/80s, 99% on RA. ECG sinus rhythm no ischemic findings. Trop 7.39, Cr 1.03, Hgb 13.8, plt 234, INR 1. Still having 2-3/10 chest pressure but only hp44cjl/min nitro gtt. Increased gtt to 75mcg/min with [...] formal TTE in morning Erika Roland, PGY-4 Vacuum Extractor Operator Pager #[phone] documented in this encounter H&P Notes * Nathaniel Greene MD - 08/25/2017 0250 EDT Date of Service: 08/25/2017 Admit Date : 08/25/2017 Subjective: Chief Complaint: Chest pain Mr Patricio is a 51 yo with a history significant for DMII, HLD, tobacco use (80 pack year history), and fhx of early onset CAD who presents as an ED [facility] ED [facility] after initially presenting there earlier in [...] intensity after receiving nitroglycerin and opioids. At [facility] ED initial workup was notable for [...] nitro drip. He was then transferred to [facility] ED for further evaluation. Workup here is notable for troponin of 7.4, an improvement of creatinine to 1.0. Otherwise BMP, calcium, magnesium, CBC, and INR are unremarkable. Repeat EKG is unchanged. Family history: Remarkable for early onset CAD in father and brother Social history: 34-dysc-iumk history, drinks a few pints of white Russians on Monday and Monday night Patient Active Problem List Diagnosis Date Noted ??? NSTEMI (non-ST elevated myocardial infarction) ([facility]) 08/25/2017 Priority: Medium Past Medical History: Diagnosis Date ??? Diaz's esophagus ??? COPD (chronic obstructive pulmonary disease) ([facility]) History reviewed. No pertinent surgical history. (Not [...] - Start metoprolol 12.5mg BID - Continue CURTAIN CLEANER lipitor 40mg daily - Formal echo pending - Dilaudid 0.5mg IV q4hr prn Acute Kidney Injury: Cr at OSH 1.3, now 1.0. - ARBEN protocol - Daily electrolytes/Cr DMII: Hold CURTAIN CLEANER oral meds - SSI - NPO for [...] attestation - Xavier Deluca MD - 08/25/2017 0932 EDT Attending Attestation: I have personally seen and examined Samy Patricio, discussed the patient's management with the team, and agree with the findings and plan as outlined by Dr. Greene. Xavier Deluca MD documented in this encounter Procedure Notes * Vamshi Lawson Jr., MD - 08/25/2017 0950 EDT Cardiovascular Catheterization Laboratory Preliminary Report -- [...] artery Procedure: He was brought to [facility] Cardiac Catheterization Laboratory for the procedure: [...] presents to the ED via transfer from [facility] with NSTEMI. Patient initially began [...] pending. 00:45 Paged cardiology. Discussed patient with director of cardiology service line. She will discuss more urgent catheterization pending [...] to lab per order for [facility]. * Armaan Gonzalez - 08/25/2017 0017 EDT 12 Lead EKG Performed by ARMAAN GONZALEZ and shown to Bella Solomon MD. * Belle Villar RN - 08/25/2017 0015 EDT 12 Lead EKG Performed by BELLE VILLAR RN and shown to Bella Solomon MD. * Leoncio Uribe - 08/24/2017 2359 EDT MD Solomon aware Trop 7.390 at 0000 (JM) * Belle Villar RN - 08/24/2017 2342 EDT According to EMS and patient. Pt was at [facility] for chest pain with associated SOB that began at 1400, 10/10 pain. Pt pain was effectively managed with one dose of SL nitro. At OSH his first troponin was .03, EKG NSR, second trop .98, transferred here on nitro drip and heparin drip. Pt appears in NADOA. Pain 1/10. Family is at the bedside. On ekg monitor tech. VSS. Will CTM. * Bella Solomon MD - 08/24/2017 8874 EDT DOS: 08/24/2017 Chief Complaint Patient presents with ??? Chest Pain pt presents from [facility] for NSTEMI. pt CP began at 1400. 1st trop .03, 2nd trop .98. CXR neg. a nitro drip was initiated at 15 mcg/min. heparin drip started at 4433-5167 units/hr with a 4000 unit bolus. pt [...] the ED via EMS asa transfer from [facility] for cardiology consult for NSTEMI. [...] ED via EMS as a transfer from [facility] for cardiology consult for NSTEMI. 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 2310- I paged the director of cardiology service line. 2341- I repaged cardiology. 2355- The patient's nurse reports his chest pain is coming back. The patient's nitro drip was restarted. The patient had a repeat EKG that was unchanged from prior. Patient had labs that were reviewed independently by myself, significant for troponin elevated at 7.390. 0015- I spoke with the ANC in the ED, who contacted the director of cardiology service line. The patient was signed out to Dr. [...] the Emergency Department: Serious PCP: Altaf Hoover [facility] This documentation is recorded by Lynn [...] Referral Routine NSTEMI (non-ST elevated myocardial infarction) ([facility]) Ordered: 08/25/2017 AMB CONS/FOLLOW UP CARDIAC REHABILITATION Outpatient Referral Routine NSTEMI (non-ST elevated myocardial infarction) ([facility]) Ordered: 08/25/2017 AMB CONS/FOLLOW UP CARDIOLOGY Outpatient Referral Routine NSTEMI (non-ST elevated myocardial infarction) ([facility]) Ordered: 08/25/2017 documented as of this encounter [...] EDT) 08/31/2017 14:2 9 EDT Scan 2 Hcc Coders PROCEDURE/MINOR STEFAN GICAL ORDERABLES * ECG REPORT - SCANNED (08/30/2017 13:52 EDT) 08/30/2017 13:5 2 EDT Scan 2 Hcc Coders PROCEDURE/MINOR STEFAN GICAL ORDERABLES * (ABNORMAL) GLUCOSE, GLUCOMETER (08/26/2017 7:32 EDT) Glucose, Fingerstick 185(H) 70 - 100 mg/dl 08/26/2017 11:28 EDT [facility] Metal Coater Operator ID [id number] 08/26/2017 11:28 EDT [facility] Comment:Test Performed by [facility] Services BLOOD SPECIMEN / Unknown 08/26/2017 7:32 EDT 08/26/2017 11:28 EDT Chang Garduno MD CHEMISTRY & BLOOD G ORDERABLES [facility] [address] [place] [address] * MAGNESIUM (08/26/2017 5:29 EDT) Magnesium 2.1 1.7 - 2.8 mg/dl 08/26/2017 6:56 EDT [facility] Blood specimen (specimen) BLOOD SPECIMEN / Unknown 08/26/2017 5:29 EDT 08/26/2017 6:18 EDT Adan Sadler MD CHEMISTRY & BLOOD GA S ORDERABLES Performing Organization Address City/[facility]/ZIP Co de Phone Number [facility] [address] [place] [address] * CREATININE (08/26/2017 5:29 EDT) Creatinine 0.97 0.66 - 1.25 mg/dl 08/26/2017 6:56 EDT [facility] GFR, Calculated 91 >60 ml/min/1.7 3m2 08/26/2017 6:56 EDT [facility] Comment: eGFR calculated using CKD-EPI equation for non Americans. Multiply eGFR by 1.16 for Americans. Blood specimen (specimen) BLOOD SPECIMEN / Unknown 08/26/2017 5:29 EDT 08/26/2017 6:18 EDT Nathaniel Greene MD CHEMISTRY & BLOOD GAS ORDERABLES Performing Organization Address City/[facility] Co de Phone Number [facility] [address] [place] [address] * BUN (08/26/2017 5:29 EDT) BUN 16 10 - 26 mg/dl 08/26/2017 6:56 EDT [facility] Blood specimen (specimen) BLOOD SPECIMEN / Unknown 08/26/2017 5:29 EDT 08/26/2017 6:18 EDT Nathaniel Greene MD CHEMISTRY & BLOOD GAS ORDERABLES Performing Organization Address [facility] de Phone Number [facility] [address] [place] [address] * (ABNORMAL) ELECTROLYTES (08/26/2017 5:29 EDT) Sodium 135(L) 136 - 145 mEq/L 08/26/2017 6:56 EDT [facility] Potassium 4.2 3.5 - 5.0 mEq/L 08/26/2017 6:56 EDT [facility] Chloride 105 96 - 110 mEq/L 08/26/2017 6:56 EDT [facility] CO2 25 22 - 32 mEq/L 08/26/2017 6:56 EDT [facility] Blood specimen (specimen) BLOOD SPECIMEN / Unknown 08/26/2017 5:29 EDT 08/26/2017 6:18 EDT Nathaniel Greene MD CHEMISTRY & BLOOD GAS ORDERABLES Performing Organization Address City/[facility] Co de Phone Number [facility] [address] [place] [id number] * COMPLETE BLOOD COUNT (08/26/2017 5:29 EDT) WBC 7.13 4.0 - 10.4 K/cmm 08/26/2017 6:27 [facility] RBC 4.58 4.36 - 5.78 M/cmm 08/26/2017 6:27 [facility] Hemoglobin 14.3 13.8 - 17.3 gm/dl 08/26/2017 6:27 [facility] HCT 40.4 39.5 - 50.2 % 08/26/2017 6:27 [facility] MCV 88 81 - 95 fl 08/26/2017 6:27 [facility] MCH 31.2 27.6 - 33.0 pg 08/26/2017 6:27 [facility] MCHC 35.4 32.8 - 36.4 gm/dl 08/26/2017 6:27 [facility] RDW-CV 12.0 <14.2 % 08/26/2017 6:27 [facility] RDW-SD 38.7 <46.0 fl 08/26/2017 6:27 [facility] PLT 195 141 - 377 K/cmm 08/26/2017 6:27 [facility] MPV 10.4 9.5 - 12.7 fl 08/26/2017 6:27 [facility] Blood specimen (specimen) BLOOD SPECIMEN / Unknown 08/26/2017 5:29 EDT 08/26/2017 6:18 EDT Nathaniel Greene MD HEMATOLOGY & PF4 O RDERABLES [facility] [address] [place] [address] * LIPID PROFILE (INCLUDES CHOLESTEROL, TRIGLYCERIDES, HDL, LDL) (08/26/2017 5:29 EDT) Cholesterol 116 mg/dl 08/26/2017 6:56 [facility] Comment: Desirable:<200 Borderline High:200-239 High:>go=932 Triglycerides 132 mg/dl 08/26/2017 6:56 [facility] Comment: Normal:<150 Borderline High:150-199 High:200-499 Very High:>pe=094 HDL 37 mg/dl 08/26/2017 6:56 [facility] Comment: Low:<40 Normal:40-60 Desirable: >60 LDL, Calculated 53 mg/dl 8 6:56 [facility] Comment: Optimal:<100 Near Optimal:100-129 Borderline High:130-159 High:160-189 Very High:>io=525 Chol/HDL Ratio 3.1 08/26/2017 6:56 [facility] Fasting? Unknown 08/26/2017 6:56 [facility] Non HDL Cholesterol 79 mg/dl 08/26/2017 6:56 [facility] Comment: Desirable:<130 Borderline:130-159 High: 160-189 Very High: >bg=843 Blood specimen (specimen) BLOOD SPECIMEN / Unknown 08/26/2017 5:29 EDT 08/26/2017 6:18 EDT Nathaniel Greene MD CHEMISTRY & BLOOD GAS ORDERABLES Performing Organization Address [facility] Co de Phone Number [facility] [address] [place] [address] * (ABNORMAL) GLUCOSE, GLUCOMETER (08/25/2017 21:52 EDT) Glucose, Fingerstick 238(H) 70 - 100 mg/dl 08/25/2017 21:55 EDT [facility] Metal Coater Operator ID [id number] 08/25/2017 21:55 EDT [facility] Comment:Test Performed by [facility] Services BLOOD SPECIMEN / Unknown 08/25/2017 21:52 EDT 08/25/2017 21:55 EDT Chang Garduno MD CHEMISTRY & BLOOD G ORDERABLES Performing Organization Address [facility] Co de Phone Number [facility] [address] [place] [address] * (ABNORMAL) GLUCOSE, GLUCOMETER (08/25/2017 17:12 EDT) Glucose, Fingerstick 197(H) 70 - 100 mg/dl 08/25/2017 17:17 EDT [facility] Metal Coater Operator ID [id number] 08/25/2017 17:17 EDT [facility] Comment:[facility] BLOOD SPECIMEN / Unknown 08/25/2017 17:12 EDT 08/25/2017 17:17 EDT Chang Garduno MD CHEMISTRY & BLOOD G ORDERABLES [facility] [address] [place] [address] * PROTEIN/CREATININE RATIO, URINE (08/25/2017 15:20 EDT) Tot Prot,Ur Random 5 mg/dl 08/25/2017 16:43 EDT [facility] Creatinine, Urn [place] 117.0 mg/dl 08/25/2017 16:43 T [facility] UPRO mg/mg Cr, Ur 0.04 <0.11 mg/mg Crea 08/25/2017 16:43 EDT [facility] Urine specimen (specimen) URINE / Unknown 08/25/2017 15:20 EDT 08/25/2017 16:07 EDT Adan Sadler MD URINALYSIS ORDERABLE S [facility] [address] [place] [address] * (ABNORMAL) GLUCOSE, GLUCOMETER (08/25/2017 11:36 EDT) Glucose, Fingerstick 220(H) 70 - 100 mg/dl 08/25/2017 11:41 EDT [facility] Metal Coater Operator ID [id number] 08/25/2017 11:41 EDT [facility] Comment:Test Performed by [facility] BLOOD SPECIMEN / Unknown 08/25/2017 11:36 EDT 08/25/2017 11:41 EDT Chang Garduno MD CHEMISTRY & BLOOD G ORDERABLES Performing Organization Address [facility] de Phone Number [facility] [address] [place] [address] * (ABNORMAL) TROPONIN I (08/25/2017 10:50 EDT) Pathologist [facility] Troponin I (ng/mL) 8.520(H) <0.034 ng/ml 08/25/2017 11:59 EDT [facility] Comment: The results of this assay can be falsely lowered due to the consumption of Biotin. Blood specimen (specimen) BLOOD SPECIMEN / Unknown 08/25/2017 10:50 EDT 08/25/2017 11:20 EDT Nathaniel Greene MD CHEMISTRY & BLOOD GAS ORDERABLES Performing Organization Address [facility] de Phone Number [facility] [address] [place] [address] * LEFT HEART CATH (08/25/2017 9:54 EDT) Anatomical Region Laterality Modality Other 08/25/2017 9:54 EDT Narrative 08/28/2017 15:36 EDT Cardiology [address] [place] [address] Catheterization Laboratory Study Patient: Samy Patricio ?Study Date: ?08/25/2017 ? Accession #: ? [id number] : ? 1965 Referring: Altaf Hoover Diagnostic Attending: ??Vamshi Lawson Interventional Attending: ?Vamshi Badillo Diagnostic Fellow: Hilario Coffman MD Interventional Fellow: [...] Right radial artery access. A 6 Fr/10/.021 [place] Sheath SLENDER ?? sheath was advanced into [...] Vamshi Lawson Jr., MD - 08/28/[address] [place] [address] Catheterization Laboratory Study Patient: Samy Patricio Study [...] Right radial artery access. A 6 Fr/10/.021 [place] Sheath SLENDER sheath was advanced into the [...] Narrative 08/25/2017 9:40 EDT *Interpreting Group:* *[facility]* [address] [place] [address] Date of study: 08/25/2017 Transthoracic Echocardiography M-mode, [...] time: ??08:30 AM. ADMITTING ?Chang Garduno MD FINANCIAL PROJECT MANAGER ??Nathaniel Blackwood SPENSER REFERRING ?Altaf Hoover ATTENDING ?Kerri Stein FELLOW ? Franco oMon MD PERFORMING ?? [facility] ORDERING ? Nathaniel Greene *PROCEDURE DATA* Procedure information: ??The patient was identified by two identifiers. This study was interpreted by [facility]. Pertinent images and digital data are archived for permanent storage and are available for subsequent review. ??Study status: Routine. Transthoracic echocardiography. ??M-mode, complete 2D, complete spectral Doppler, and color Doppler. A Transthoracic Echocardiogram was performed. Scanning was performed from the parasternal, apical, subcostal, and suprasternal notch acoustic windows. Images were obtained using an Luminary Microq 15 cardiac ultrasound machine. Image quality was suboptimal. The study was technically limited due to poor acoustic window availability and body habitus. Intravenous contrast (Definity) was administered by Nathaniel [facility] to enhance delineation of left [...] Greene MD - 08/25/2017 *Interpreting Group:* *[facility]* [address] [place] [address] Date of study: 08/25/2017 Transthoracic Echocardiography M-mode, [...] time: 08:30 AM. ADMITTING Chang Garduno MD FINANCIAL PROJECT MANAGER Nathaniel Blackwood RDCS REFERRING Altaf Hoover ATTENDING Kerri Stein FELLOW Franco Moon MD PERFORMING Uvc, Er ORDERING Nathaniel Greene *PROCEDURE DATA* Procedure information: The patient was identified by two identifiers. This study was interpreted by [facility]. Pertinent images and digital data are archived for permanent storage and are available for subsequent review. Study status: Routine. Transthoracic echocardiography. M-mode, complete 2D, complete spectral Doppler, and color Doppler. A Transthoracic Echocardiogram was performed. Scanning was performed from the parasternal, apical, subcostal, and suprasternal notch acoustic windows. Images were obtained using an Epiq 15 cardiac ultrasound machine. Image quality was suboptimal. The study was technically limited due to poor acoustic window availability and body habitus. Intravenous contrast (Definity) was administered by Nathaniel Merced CVT, RDCS to enhance delineation of left ventricular endocardial [...] 70 - 100 mg/dl 08/25/2017 6:48 EDT [facility] Metal Coater Operator [place] [id number] 08/25/2017 6:48 EDT [facility] Comment:Test Performed by [facility] Services BLOOD SPECIMEN / Unknown 08/25/2017 6:45 EDT 08/25/2017 6:48 EDT Chang Garduno MD CHEMISTRY & BLOOD G ORDERABLES Performing Organization Address [facility] Co de Phone Number [facility] [address] [place] [address] * CREATININE (08/25/2017 6:30 EDT) Creatinine 1.00 0.66 - 1.25 mg/dl 08/25/2017 7:38 EDT [facility] GFR, Calculated 87 >60 ml/min/1.7 3m2 08/25/2017 7:38 EDT [facility] Comment: eGFR calculated using CKD-EPI equation for non Americans. Multiply eGFR by 1.16 for Americans. Blood specimen (specimen) BLOOD SPECIMEN / Unknown 08/25/2017 6:30 EDT 08/25/2017 6:52 EDT Nathaniel Greene MD CHEMISTRY & BLOOD GAS ORDERABLES Performing Organization Address City/[facility] Co de Phone Number [facility] [address] [place] [address] * BUN (08/25/2017 6:30 EDT) BUN 16 10 - 26 mg/dl 08/25/2017 7:38 EDT [facility] Blood specimen (specimen) BLOOD SPECIMEN / Unknown 08/25/2017 6:30 EDT 08/25/2017 6:52 EDT Nathaniel Greene MD CHEMISTRY & BLOOD GAS ORDERABLES Performing Organization Address City/[facility] Co de Phone Number [facility] [address] [place] [address] * ELECTROLYTES (08/25/2017 6:30 EDT) Sodium 137 136 - 145 mEq/L 08/25/2017 7:38 EDT [facility] Potassium 4.7 3.5 - 5.0 mEq/L 08/25/2017 7:38 EDT [facility] Chloride 105 96 - 110 mEq/L 08/25/2017 7:38 EDT [facility] CO2 26 22 - 32 mEq/L 08/25/2017 7:38 EDT [facility] Blood specimen (specimen) BLOOD SPECIMEN / Unknown 08/25/2017 6:30 EDT 08/25/2017 6:52 EDT Nathaniel Greene MD CHEMISTRY & BLOOD GAS ORDERABLES Performing Organization Address [facility] de Phone Number [facility] [address] [place] [address] * HEPARIN LEVEL - UNFRACTIONATED HEPARIN (08/25/2017 6:30 EDT) Heparin Level-UFH 0.48 IU/mL 018 7:13 EDT [facility] Comment: Unfractionated heparin therapeutic range [...] & PF4 O RDERABLES Performing Organization Address City/[facility]/ZIP Co de Phone Number [facility] [address] [place] [address] * (ABNORMAL) TROPONIN I (08/25/2017 2:58 EDT) Troponin I (ng/mL) 12.400(H) <0.034 ng/ml 08/25/2017 3:52 EDT [facility] Comment: The results of this assay can be falsely lowered due to the consumption of Biotin. Blood specimen (specimen) BLOOD SPECIMEN / Unknown 08/25/2017 2:58 EDT 08/25/2017 3:03 EDT Nathaniel Greene MD CHEMISTRY & BLOOD GAS ORDERABLES [facility] [address] [place] [address] * (ABNORMAL) GLUCOSE, GLUCOMETER (08/25/2017 2:56 EDT) Glucose, Fingerstick 182(H) 70 - 100 mg/dl 08/25/2017 3:01 EDT [facility] [place] Metal Coater Operator ID [id number] 08/25/2017 3:01 EDT [facility] Comment:Test Performed by [facility] Services BLOOD SPECIMEN / Unknown 08/25/2017 2:56 EDT 08/25/2017 3:01 EDT Chang Garduno MD CHEMISTRY & BLOOD G ORDERABLES [facility] [address] [place] [address] * HEPARIN LEVEL - UNFRACTIONATED HEPARIN (08/25/2017 1:21 EDT) Heparin Level-UFH 0.15 IU/mL 018 2:02 EDT [facility] Comment: Unfractionated heparin therapeutic range [...] & PF4 ORD ERABLES Performing Organization Address [facility] Co de Phone Number [facility] [address] [place] [address] * INPATIENT ADD-ON (08/25/2017 1:15 EDT) Tests to be added MAGNESIUM, CALCIUM,CR EATININE,E LECTROLYTE S,CBC,PROT CHELSEA,HEMOGL OBIN A1C 08/25/2017 1:15 EDT [facility] Number for problems Not Given 08/25/2017 1:26 EDT [facility] Accession number [id number] 08/25/2017 1:26 EDT [facility] TOPOGRAPHY UNKNOWN / Unknown 08/25/2017 1:15 EDT 08/25/2017 1:26 EDT Nathaniel Greene MD HEMATOLOGY & PF4 O RDERABLES Performing Organization Address [facility] de Phone Number [facility] [address] [place] [address] * EKG 12-LEAD (08/25/2017 0:13 EDT) 08/25/2017 0:13 EDT Narrative [facility] EKG - 08/31/2017 14:22 EDT ?[facility] Emergency ? Test Date: ?2017-08-25 Pat Name: ? SAMY PATRICIO ? Department: ?? ED ? Room: ? AC04 Gender: ? Male ? Environmental Services Director: ?? [id number] : ?1965 ? Requested By: NOLA WILSON M Order Number: [id number] ? Reading MD: ?? VASQUEZ BETANCOURT SA MD ? Measurements Intervals ?[place] ? Rate: ? 65 ? P: ?57 AK: ? 186 ?QRS: ?43 QRSD: ? 88 [...] Vasquez Thorne Sa, MD - 08/31/2017 [facility] Emergency Test Date: 2017-08-25 Pat Name: SAMY PATRICIO Department: ED Room: [facility] Gender: Male Environmental Services Director: [id number] : 1965 Requested By: NOLA Barksdale Order Number: [id number] Reading MD: VASQUEZ MCCORMACK Measurements Intervals [place] Rate: 65 P: 57 AK: 186 QRS: 43 QRSD: 88 T: 29 QT: 395 QTc: 412 Interpretive Statements SINUS RHYTHM Automated Interpretation. Provider Interpretation to follow. No previous ECG available for comparison I reviewed the tracing and have either agreed or edited the findings inthis report. Electronically Signed On 08-31-2017 14:22:34 EDT by VASQUEZ ECHEVARRIA SA, MD. Bella Solomon MD CARDIAC ECG ORDERABL ES [facility] EKG * PROTIME (08/24/2017 23:16 EDT) Pro Time 11.2 10.3 - 13.4 secs 08/25/2017 1:48 EDT [facility] Comment:NOTE NEW REFERENCE R LUIS OF APR 13 2017 I.N.R. 1.0 0.9 - 1.1 Ratio 08/25/2017 1:48 EDT [facility] Comment: Moderate Intensity Coumadin INR = 2.0-3.0 Adjustments in anticoagulant therapy dose should be based upon the INR and NOT the Pro Time. BLOOD SPECIMEN / Unknown 08/24/2017 23:16 EDT 08/24/2017 23:19 EDT Bella Solomon MD HEMATOLOGY & PF4 ORD ERABLES [facility] [address] [place], [place] [id number] * MAGNESIUM (08/24/2017 23:16 EDT) Magnesium 2.0 1.7 - 2.8 mg/dl 08/25/2017 2:01 EDT [facility] BLOOD SPECIMEN / Unknown 08/24/2017 23:16 EDT 08/24/2017 23:19 EDT Bella Solomon MD CHEMISTRY & BLOOD GA S ORDERABLES [facility] [address] [place] [address] * ELECTROLYTES (08/24/2017 23:16 EDT) Sodium 139 136 - 145 mEq/L 08/25/2017 2:01 EDT [facility] Potassium 4.3 3.5 - 5.0 mEq/L 08/25/2017 2:01 EDT [facility] Comment: Interpret results with caution. Prolonged sample storage may alter result. Chloride 108 96 - 110 mEq/L 08/25/2017 2:01 EDT [facility] CO2 24 22 - 32 mEq/L 08/25/2017 2:01 T [facility] Comment: Interpret results with caution. Prolonged sample storage may alter result. BLOOD SPECIMEN / Unknown 08/24/2017 23:16 EDT 08/24/2017 23:19 EDT Bella Solomon MD CHEMISTRY & BLOOD GA S ORDERABLES [facility] [address] [place] [address] * HEMOGLOBIN A1C (08/24/2017 23:16 EDT) Hemoglobin A1C 9.6 % 08/25/2017 10:42 EDT [facility] Comment: Reference Range: <5.7% Normal 5.7-6.4% Prediabetes =>6.5% Diagnostic for diabetes (if confirmed) Goals for glycemic control in diabetes ADA 2017 For non adults with diabetes: ?? Target <7.5% For children and adolescents with type 1 diabetes: ?? Target <7.0% More or less stringent targets may be appropriate for individual patients. Est Avg Glucose 229 mg/dl 8 10:42 EDT [facility] Comment: eAG represents the A1c result expressed as average glucose in mg/dl. BLOOD SPECIMEN / Unknown 08/24/2017 23:16 EDT 08/24/2017 23:19 EDT Bella Solomon MD CHEMISTRY & BLOOD GA S ORDERABLES Performing Organization Address [facility] Co de Phone Number [facility] [address] [place] [address] * CREATININE (08/24/2017 23:16 EDT) Creatinine 1.03 0.66 - 1.25 mg/dl 08/25/2017 2:01 EDT [facility] GFR, Calculated 84 >60 ml/min/1.7 3m2 08/25/2017 2:01 EDT [facility] Comment: eGFR calculated using CKD-EPI equation for non Americans. Multiply eGFR by 1.16 for Americans. BLOOD SPECIMEN / Unknown 08/24/2017 23:16 EDT 08/24/2017 23:19 EDT Bella Solomon MD CHEMISTRY & BLOOD GA S ORDERABLES Performing Organization Address City/[facility] Co de Phone Number [facility] [address] [place] [address] * COMPLETE BLOOD COUNT (08/24/2017 23:16 EDT) WBC 9.13 4.0 - 10.4 K/cmm 08/25/2017 1:32 EDT [facility] RBC 4.47 4.36 - 5.78 M/cmm 08/25/2017 1:32 EDT [facility] Hemoglobin 13.8 13.8 - 17.3 gm/dl 08/25/2017 1:32 EDT [facility] HCT 40.5 39.5 - 50.2 % 08/25/2017 1:32 EDT [facility] MCV 91 81 - 95 fl 08/25/2017 1:32 EDT [facility] MCH 30.9 27.6 - 33.0 pg 08/25/2017 1:32 T [facility] MCHC 34.1 32.8 - 36.4 gm/dl 08/25/2017 1:32 T [facility] RDW-CV 12.5 <14.2 % 08/25/2017 1:32 T [facility] RDW-SD 41.3 <46.0 fl 08/25/2017 1:32 T [facility] PLT 234 141 - 377 K/cmm 08/25/2017 1:32 [facility] MPV 10.4 9.5 - 12.7 fl 08/25/2017 1:32 T [facility] BLOOD SPECIMEN / Unknown 08/24/2017 23:16 EDT 08/24/2017 23:19 EDT Bella Solomon MD HEMATOLOGY & PF4 ORD ERABLES [facility] [address] [place] [address] * CALCIUM (08/24/2017 23:16 EDT) Calcium 8.6 8.5 - 10.5 mg/dl 08/25/2017 2:01 EDT [facility] Calculated Calcium 9.2 8.5 - 10.5 mg/dl 08/25/2017 2:01 EDT [facility] BLOOD SPECIMEN / Unknown 08/24/2017 23:16 EDT 08/24/2017 23:19 EDT Bella Solomon MD CHEMISTRY & BLOOD GA S ORDERABLES [facility] [address] [place] [address] * HOLD BLUE TOP (08/24/2017 23:16 EDT) Hold Blue Top Sample for coagulation will be discarded after 4 hours 08/24/2017 23:50 EDT [facility] Blood specimen (specimen) BLOOD SPECIMEN / Unknown 08/24/2017 23:16 EDT 08/24/2017 23:19 EDT Bella Solomon MD LAB INFO SERVICE AND SUPPORT & PHONE RESULT Performing Organization Address [facility] Co de Phone Number [facility] [address] [place] [address] * HOLD SST (08/24/2017 23:16 EDT) Hold SST Hold for further testing. Specimen will be held for 5 days. 08/24/2017 23:11 EDT [facility] Blood specimen (specimen) BLOOD SPECIMEN / Unknown 08/24/2017 23:16 EDT 08/24/2017 23:19 EDT Bella Solomon MD LAB INFO SERVICE AND SUPPORT & PHONE RESULT Performing Organization Address [facility] Co de Phone Number [facility] [address] [place] [address] * HOLD LAVENDER TOP (08/24/2017 23:16 EDT) Hold Purple Top EDTA for hematology will be discarded after 48 hours, differential not available after 12 hours. 08/24/2017 23:11 EDT [facility] Blood specimen (specimen) BLOOD SPECIMEN / Unknown 08/24/2017 23:16 EDT 08/24/2017 23:19 EDT Bella Solomon MD LAB INFO SERVICE AND SUPPORT & PHONE RESULT Performing Organization Address [facility] Co de Phone Number [facility] [address] [place] [address] * (ABNORMAL) TROPONIN I (08/24/2017 23:16 EDT) Troponin I (ng/mL) 7.390(H) <0.034 ng/ml 08/24/2017 23:58 EDT [facility] Comment: The results of this assay can be falsely lowered due to the consumption of Biotin. Blood specimen (specimen) BLOOD SPECIMEN / Unknown 08/24/2017 23:16 EDT 08/24/2017 23:19 EDT Bella Solomon MD CHEMISTRY & BLOOD GA S ORDERABLES [facility] [address] [place] [address] documented in this encounter Visit Diagnoses Diagnosis NSTEMI (non-ST elevated myocardial infarction) ([facility])- Primary Acute myocardial infarction, subendocardial infarction, episode of care unspecified NSTEMI (non-ST elevated myocardial infarction) ([facility]) Acute myocardial infarction, subendocardial infarction, episode of care unspecified Tobacco abuse Tobacco use disorder CARLOTA (obstructive sleep apnea) Obstructive sleep apnea (adult) (pediatric) Type 2 diabetes mellitus, without long-term current use of insulin ([facility]) Hyperlipidemia Other and unspecified hyperlipidemia CAITLYN (acute kidney injury) ([facility]) Acute kidney failure, unspecified documented in this [...] Discontinued, Routine 1543 (Patch Applied - Provider: Manihsa [place] RN)2235 (Patch Removed - Provider: Carolyn Estevez RN) 08 (Patch Applied - Provider: Manisha [place] RN)2099 (Due: Patch Removed - Provider: Manisha [place] [...] Belle Villar RN)1056 (Given - Provider: Manisha [place], RN)1543 (Given - Provider: Manisha [place], RN)2321 (Given - Provider: Carolyn Estevez RN) 0825 (Given - Provider: Manisha [place], RN) ticagrelor (BRILINTA) tablet 90 mg (CANCELED) [...] STAT 0006 (New Bag - Provider: Belle Villar RN)0029 (Rate Change - Provider: Belle Villar RN)0043 (Rate Change - Provider: Belle Villar, GUILLAUME)0057 (Rate Change - Provider: Blele Villar, GUILLAUME)0122 (Rate Change - Provider: Belle Villar, GUILLAUME)0239 (Rate Change - Provider: Amarilis Terrell RN)0304 (Completed - Provider: Belle Villar RN) nitroglycerin [...] 0947, Routine 0947 (Given - Provider: Altaf Becerra, RN) No Frequency Medication Order 08/24/2017 08/25/2017 [...] 1 08/25/2017 heparin 1,000 unit/mL injection 1 06/15/201 8 heparin 1,000 unit/mL inject ion 3,300 [...] syringe 1 08/26/19 18 polyethylene glycol 3350 (VA RALAX) packet 17 g 1 08/25/2017 ramelteon (ROZEREM) tablet 8 mg 8 sodium chloride 0.9 % (NS) infusion [...] First Orde red Date ED BED REQUEST 08/25/2017 STATUS: INPATIENT ACUTE ADMISSION 1 018 [...] 08/11 documented in this encounter Care Teams Slurry Worker Relationship Specialty Start Date End Date Altaf Hoover MD PCP - General 11/12/15 04/12/20 documented as of this encounter
--- OUTSIDE RECORDS SUMMARY | 2023-12-10 00:47 | XMS_ITS | Encounter Summary ---
Author Organization [facility] Address [address] [place] [address] Care Team Providers Care Model Maker Apprentice Name Role Phone Snehal Maravilla MD Primary Care Provider [phone] Encounter Details Date Type Department Care Team (Late st Contact Info) Description 08/23/2016 Results Only [facility] [phone] Naomie Blum MD [facility] [address] [place], [place] [id number] Social History Tobacco Use Types Packs/Day Years [...] ? SAMY PATRICIO ? Accession #: ? [id number] ? : ? 1965 (Age: 50) ??M [...] (ASCP) 08/24/2016 11:08 AM End of Report [facility] 08/23/2016 19:2 6 EDT 08/23/2016 19:26 EDT Naomie Blum MD PATHOLOGY ORDERA SERGIO [facility] [address] [place] [address] documented in this encounter Visit Diagnoses Not on filedocumented in this encounter Care Teams Model Maker Apprentice Relationship Specialty Start Date End Date Snehal Maravilla MD PCP - General 11/12/15 04/12/20 documented as of this encounter
--- OUTSIDE RECORDS SUMMARY | 2023-12-10 00:47 | XMS_ITS | Encounter Summary ---
Author Organization [facility] Address [address] [place] [address] Care Team Providers Care Forensic Technician Name Role Phone Unavailable Primary Care Provider Unavailabl e Encounter Details Date Type Department Care Team (Latest Contact Info) Description 11/20/2000 11:16 EDT - 11/20/2000 11:59 EDT Hospital Encounter [facility] - Other [address] [place] [address] José Miguel Crain MD [address] [place] [id number] Unknown, MD Derrell Discharge Disposition: Auto Discharge [...]
--- OUTSIDE RECORDS SUMMARY | 2023-12-10 00:47 | XMS_ITS | Encounter Summary ---
Author Organization [facility] Address [address] [place] [address] Care Team Providers Care Ict Security Specialist Name Role Phone Derrick Melara MD Primary Care Provider [phone] Encounter Details Date Type Department Care Team (Latest Contact Info) Description 02/18/2014 12:04 EST - 02/18/2014 23:59 EST Hospital Encounter [address] [address] Unknown, Provider, Discharge Disposition: Home or Self Care Social History Tobacco Use Types Packs/Day Years Used Date Smoking Tobacco: Never Assessed Sex and Gender Information Value Date Recorded Sex Assigned at Not on file Gender Identity Male 02/16/2019 6:16 EST Sexual Orientation Not on file documented as of this encounter Discharge Disposition Disposition Code Departure Means Destination Home or Self [facility] documented in this encounter Plan of Treatment Not on file documented as of this encounter Visit Diagnoses Not on filedocumented in this encounter Care Teams Ict Security Specialist Relationship Specialty Start Date End Date Derrick Melara MD [address] [place] [address] PCP - General 09/26/12 11/11/15 documented as of this encounter
--- OUTSIDE RECORDS SUMMARY | 2023-12-10 00:47 | XMS_ITS | Encounter Summary ---
Author Organization [facility] Address [address] [place] [address] Care Team Providers Care Metallurgical Tester Name Role Phone Unavailable Primary Care Provider Unavailabl e Encounter Details Date Type Department Care Team ([facility] Contact Info) Description 11/20/2000 Results Only Used for SCHED Conversion Only Yuliya Crain MD [address] [facility] [address] [place] [address] Social History Tobacco Use Types [...] ? SAMY PATRICIO ? Accession #: ? [id number] ? : ? 1965 (Age: 34) ??M [...] with PAS-D and AFB stains, respectively. ??(Dr. Gomez)/[facility] Document reviewed and electronically signed [...] ??Bisected and entirely submitted as (B). (Dr. Amaro)/[facility] End of Report [facility] 11/20/2000 11/20/2000 12: 11 EDT Yuliya Crain MD PATHOLOGY ORDERABLES [facility] [address] [place] [address] documented in this encounter Visit Diagnoses Not on filedocumented in this encounter
--- OUTSIDE RECORDS SUMMARY | 2023-12-10 00:47 | XMS_ITS | Encounter Summary ---
Author Organization [facility] Address [address] [place] [id number] Care Team Providers Care Back Pad Inspector Name Role Phone Derrick Melara MD Primary Care Provider Encounter Details Date Type Department Care Team (Late st Contact Info) Description 09/25/2012 Results Only [facility] Laboratory Services - [facility] [place] [place] [address] [place], [place] [address] Mendoza Beatty, [address] [facility] ,[address] [place], [place] [id number] Social History Tobacco Use Types Packs/Day Years [...] ? SAMY PATRICIO ? Accession #: ? [id number] ? : ? 1965 (Age: 46) ??M [...] DO PATHOLOGY ORDER TREVON Performing Organization Address City/State/[facility] Co de Phone Number [facility] [address] [place] [address] documented in this encounter Visit Diagnoses Not on filedocumented in this encounter Care Teams Back Pad Inspector Relationship Specialty Start Date End Date Derrick Melara MD [address] [facility] [place] [id number] PCP - General 09/26/12 11/11/15 documented as of this encounter
[2023-12-10] MEDS: Normal Saline Flush 10 ML SYR IVP (01:09)
[2023-12-10] MEDS: Prochlorperazine 10 MG/2 ML VIAL IVP (01:09)
[2023-12-10] MEDS: Ketorolac 30 MG/ML VIAL 15 MG IVP (01:09)
[2023-12-10 01:14] LABS: Abs Immature Grans 0.07 10^3/uL (0.0-0.06); Absolute Basophil Count 0.07 10^3/uL (0.0-0.2); Absolute Eosinophil Count 0.26 10^3/uL (0.0-0.7); Absolute Monocyte Count 0.76 10^3/uL (0.1-0.8); Basophils % 0.6 %; Eosinophils % 2.4 %; HCT 50.3 % (40.0-50.0); HGB 16.6 g/dL (13.5-17.5); Immature Grans % 0.6 %; Lymphocytes % 28.5 %; MCH 29.9 pg (27.0-33.0); MCV 91 fL (80-95); MPV 9.1 fL (8.0-11.0); Neutrophils % 60.9 %; Platelet Count 217 10^3/uL (130-400); RBC 5.56 10^6/uL (4.36-5.78); RDW 14.3 % (11.8-14.1); RDW-SD 47.8 fL; WBC 10.86 10^3/uL (4.4-10.8)
[2023-12-10 01:15] LABS: ESR 23 mm/hr (0-20)
[2023-12-10 01:18] LABS: Absolute Neutrophil Count 6.61 10^3/uL (1.2-6.7)
[2023-12-10 01:24] LABS: BUN 21 mg/dL (7-18); CREATININE 1.6 mg/dL (0.70-1.30); Calcium 9.3 mg/dL (8.5-10.1); Chloride 99 mmol/L (98-107); Estimated GFR 49.94 (mL/min/1.73m2); Glucose 93 mg/dL (74-106); Potassium 3.8 mmol/L (3.5-5.1); Sodium 138 mmol/L (136-145)
--- NOTE | 2023-12-10 01:35 | DI.CT_ITS ---
Exam(s) CT HEAD WO EXAM: CT HEAD WO CLINICAL HISTORY: new onset R sided H/A. TECHNIQUE: Imaging Protocol: Axial computed tomography images with coronal and sagittal reformatted images were created and reviewed COMPARISON: No exams were available for comparison FINDINGS: Ventricles and Extra axial spaces: Normal in size and morphology for the patient's age. Hemorrhage: None. Cerebral parenchyma: No acute territorial infarct. No mass effect is identified. Midline shift: None. Brainstem/Cerebellum: Normal. Calvarium: Normal. Visualized Paranasal sinuses/Mastoids: There is mucosal thickening in the ethmoid air cells bilateral ly. No air-fluid levels are seen. The remaining visualized paranasal sinuses are clear. The mastoi d air cells are clear. Soft Tissues: Unremarkable. IMPRESSION: No acute intracranial process. RADIATION DOSE DELIVERED: 861.7mGy.cm Total DLP DATA REPOSITORY: All CT scans at this facility are submitted to the National Radiology Data Registry (NRDR) Dose Index Registry (DIR) with the [employer] (A[employer]). RADIATION OPTIMIZATION: All CT scans at this facility use at least one of these dose optimization te chniques: automated exposure control; mA and/or kV adjustment per patient size (includes targeted exa ms where dose is matched to clinical indication); or iterative reconstruction.
--- NOTE | 2023-12-10 02:12 | DI.VRAD_ITS ---
PROCEDURE INFORMATION: Exam: CT Head Without Contrast Exam date and time: 12/10/2023 1:13 AM Age: 58 years old Clinical indication: Pain; Headache; Other: Right sided; Patient HX: New onset R sided h/a TECHNIQUE: Imaging protocol: Computed tomography of the head without contrast. Radiation optimization: All CT scans at this facility use at least one of these dose optimization techniques: automated exposure control; mA and/or kV adjustment per patient size (includes targeted exams where dose is matched to clinical indication); or iterative reconstruction. COMPARISON: MR BRAIN WO 05/30/2022 11:02 AM FINDINGS: Brain: No acute intracranial hemorrhage, mass-effect, midline shift, or extra-axial collection is seen. The chávez white matter differentiation appears preserved. Cerebral ventricles: The ventricular system and basilar cisterns appear appropriate in size and configuration. Paranasal sinuses: There is mild patchy mucoperiosteal thickening paranasal sinuses. Although nonspecific, chronic sinusitis could have this appearance. Mastoid air cells: There is opacification of a few clustered mastoid air cells bilaterally. Auditory system: The middle ear cavities appear clear. Bones: The bony calvarium appears intact. No depressed skull fracture is seen. Soft tissues: No significant scalp lesion is seen. IMPRESSION: 1. No acute intracranial abnormality seen. 2. Opacification of a few clustered mastoid air cells bilaterally. Although nonspecific, mastoid effusions or mastoiditis could have this appearance. Clinical correlation is recommended. The middle ear cavities appear clear. Dictated and Authenticated by: Van Brunson MD. Ordering:HERNÁN Up MD
[2023-12-10 02:43] VITALS: BP 113/69; PULSE 76; RESP 18; O2SAT 95
== END 2023-12-10 02:54 | disposition home or self-care (01) ==
PROVIDERS: Emergency Provider Emergency Medicine; PCP Family Medicine
DX: R51.9 Headache, unspecified (principal)
CPT/HCPCS: 36415; 80048; 85652; 96374; 96375; 99284; 70450; 85025; 99283; J0780; J1885

== ENCOUNTER → 2023-12-12 07:18 | Outpatient (BNVA) | payer MEDICARE, OTHER, SELFPAY | PROVIDERS: PCP Family Medicine; Referring Provider Family Medicine; Visit Provider Surgery | DX: K43.9 Ventral hernia without obstruction or gangrene (principal) | CPT/HCPCS: 99214 ==

== ENCOUNTER → 2023-12-18 07:49 | Outpatient (BNVA) | payer MEDICARE, OTHER, SELFPAY | PROVIDERS: PCP Family Medicine; Visit Provider Student in an Organized Health Care Education/Training Program | DX: Z47.89 Encounter for other orthopedic aftercare (principal); R20.0 Anesthesia of skin | CPT/HCPCS: 99024 ==

== ENCOUNTER 2024-01-17 08:03 | Day surgery (SDC) | payer MEDICARE, OTHER, SELFPAY ==
--- NOTE | 2024-01-16 18:53 | W.PM.DSUDISC ---
Date of service: 01/17/24 Time of Service: 12:34 Discharge Plan Disposition Patient Disposition: Home Condition: Good Discharge Details Reason For Visit: ventral hernia repair Attending Provider: Jake Larson Primary Care Provider: Karen Barbosa Home Meds and New Rx's Prescriptions: Continued metoprolol succinate 50 mg tablet extended release 24 hr 25 mg PO DAILY Qty: 90 3RF allopurinol 100 mg tablet 200 mg PO DAILY Qty: 180 3RF glucagon 3 mg/actuation spray,non-aerosol 3 mg intranasal ONCE PRN (Reason: hypoglycemia) Qty: 2 1RF Rx Instructions: as a single dose vitamin B complex [B Complex-Vitamin B12] Tablet 1 tab PO DAILY nitroglycerin 0.4 mg tablet, sublingual See Rx Instructions .ROUTE .COMPLEX Qty: 100 3RF Dose Instruction: PLACE ONE TABLET UNDER THE TONGUE EVERY 5 MINUTES FOR UP TO 3 DOSES NEEDED FOR CHEST PAIN. IF CHEST PAIN STILL PERSISTS CONTACT 911 Rx Instructions: PLACE ONE TABLET UNDER THE TONGUE EVERY 5 MINUTES FOR UP TO 3 DOSES NEEDED FOR CHEST PAIN. IF CHEST PAIN STILL PERSISTS CONTACT 911 (DME) Dexcom G7 Sensor Device See Rx Instructions .Route Qty: 1 12RF Rx Instructions: As directed albuterol sulfate 90 mcg/actuation HFA aerosol inhaler 2 puff inhalation Q6H PRN (Reason: shortness of breath or wheezing) Qty: 8.5 4RF aspirin [Aspir-81] 81 MG tablet,delayed release (DR/EC) 81 mg PO DAILY Patient Comments: 08-28-18 per [facility]. -hb (DME) pen needle, diabetic [Comfort EZ Pen [place]] 31 gauge x 1/4 needle See Rx Instructions .ROUTE .MEDSUPPLY Qty: 500 4RF Rx Instructions: Five times daily tamsulosin [Flomax] 0.4 mg capsule 0.4 mg PO DAILY Qty: 90 3RF empagliflozin 25 mg tablet 25 mg PO DAILY Qty: 90 3RF atorvastatin 80 mg tablet 80 mg PO QHS Qty: 90 3RF pantoprazole 40 mg tablet,delayed release (DR/EC) 40 mg PO BID Qty: 180 3RF Trelegy Ellipta 200-62.5-25 mcg blister with device 1 inh inhalation DAILY Qty: 60 4RF colchicine [Colcrys] 0.6 mg tablet See Rx Instructions PO .COMPLEX Qty: 30 12RF Rx Instructions: 2 tabs once and May repeat 1 tab 6 hours later. May use once daily until symptoms improve; folic acid 1 mg tablet 1 mg PO DAILY Qty: 90 4RF insulin lispro-aabc 200 unit/mL (3 mL) insulin pen 40 unit subcut QACHS Qty: 18 3RF Rx Instructions: up to 160 units / day. torsemide 20 mg tablet 40 mg PO DAILY Qty: 180 3RF insulin degludec 200 unit/mL (3 mL) insulin pen 160 unit subcut HS Patient Comments: 80 units acetaminophen 500 mg tablet 1,000 mg PO TID Qty: 90 0RF ibuprofen 600 mg tablet 600 mg PO TID PRN (Reason: pain) Qty: 90 0RF Discharge Instructions Instructions: Abdominal Hernia Repair, Laparoscopic Surgery Additional Instructions: Samy, I hope you are comfortable during the procedure today, and that you make an uneventful and quick recovery. Technically, everything went very smoothly. You actually had several hernia defects along the upper part of your previous midline incision. It looks to me like the fascia pulled apart in several areas below the level of the other hernia mesh. This created pockets underneath of the previous mesh and above the level of the fascia causing some abdominal fat to get trapped in's. I suspect that is what was causing your discomfort. I was able to get all of these emptied out, and all of the abdominal fat back to its normal position. All of these hernia defects were covered over with a single large piece of mesh in the upper abdomen. I am very confident this will prevent anything else from getting into that space. I used a similar technique for the hernia at the bellybutton site as well. Be careful with your lifting over the next few days, trying to keep it light. I would like you up and moving around, getting a little bit more exercise each day. Walking and easy hiking is an excellent way to get things moving again. Expect to have some increasing pain in your abdominal wall as some of the nerve blocks wear off over the next few hours. I provided a prescription for a pain medication called tramadol for you to use in addition to Tylenol and ibuprofen, if those are not enough to control the pain. May have a fair amount of bruising around some of the incision sites, or maybe even in the area of the previous incisions. Do not be alarmed by that. Please give me a call if you have any questions at all, otherwise I look forward to seeing you in the office. 1. Resume all of your regular medications. 2. Use heating pads and ice packs over the incisions as needed to help with discomfort. 3. Alternate wewo-med-znedayv Tylenol and ibuprofen every 6 hours for the first 2 days, then use as needed. Use the prescription for tramadol if needed for more intense pain 4. Leave bandages in place for 24 hours, then remove. 5. Shower with warm soapy water. Pat dry. Use a bandaid if needed to protect your clothing. 6. No soaking or tub baths until I see you in the office. 7. No heavy lifting until I see you in the office. 8. Call the office (or go directly to the emergency room after hours) if you notice any of the following: Develop chills (warm to touch), or if you have a thermometer and your temperature is above 101 Difficulty breathing or difficultly swallowing Persistent vomiting Any bleeding ? exceeding one tablespoon 9 Call your physician if the site where your intravenous was started becomes red, swollen, painful, and warm to touch. Stand Alone Forms: Anesthesia Discharge Inst., Edison Reyes (DSU) Referrals: Jake Larson MD [ [facility] STAFF PHYSICIAN] - 01/30/24 8:30 am Activity:: no heavy lifting Remove Dressings/Wound Care:: 24 hours Shower/Bathe:: 24 hours Diet:: As Tolerated Discharge Orders Discharge Orders: Discharge Order (Routine); Ordered 01/16/24 Ordered By: Jake Larson DS: Diagnosis Discharge Diagnosis (1) Ventral hernia without obstruction or gangrene: Status: Acute Asessment and Plan: Status post laparoscopic ventral hernia repair; outpatient postoperative follow-up
--- NOTE | 2024-01-16 18:55 | W.PM.OP ---
Date of service: 01/17/24 Time of Service: 12:42 Operative Note Operative Note DATE OF PROCEDURE: 01/17/24 PRE-OP DIAGNOSIS: ventral hernia POST-OP DIAGNOSIS: other (Upper midline incisional hernia defects, and separate umbilical hernia defect) PROCEDURE: laproscopic ventral hernia repair SURGEON: Jake Larson [employer] DIRECTOR: Radha Palma ANESTHESIA TYPE: Local By Surgeon and General LMA/ETT Refer to Anesthesia Record ESTIMATED BLOOD LOSS: 25 PATHOLOGY: none sent COMPLICATIONS: None Patient was transported to: PACU Patient's condition: stable Implants: 15.[address] hernia repair mesh in the upper midline, 11.[address] hernia patch around the umbilical site Indications: Samy is a 58-year-old male with symptomatic upper midline hernia as well as a painful umbilical hernia Findings: Multiple small hernia defects along previous upper midline incision containing greater omentum and visceral fat, reducible umbilical hernia with omental fat Procedure Description: Samy is brought back to the operating room and moved onto the operating room table. Great care was taken to ensure that he was appropriately padded supported and positioned. General endotracheal anesthesia was induced. Next, I prepped and draped the anterior abdominal wall. I made a small incision in the right upper quadrant and using a 5 mm optical viewing port, I entered the peritoneal cavity. The peritoneum was insufflated, and a 5 mm 30 degree scope was reintroduced. There was no evidence of any trauma from entry into the peritoneal cavity. Peritoneum was quickly examined. There was extensive adhesions of what appeared to be mostly greater omentum up to the anterior abdominal wall. Next, with the assistance of the laparoscope another 5 mm port was placed in the right lower abdomen. I then began lysing adhesions. Using a 5 mm LigaSure, I began dissection in the right upper quadrant. Most of this was greater omentum was filmy adhesions to what appeared to be a previous port site. As this was dissected free, it was apparent that the greater omentum was then involved in a midline hernia. Again, great care was taken to dissect free the surrounding soft tissues. Using gentle countertraction against the anterior abdominal wall attempts were made to reduce some of the herniated contents as I began reducing this omentum out of the hernia site, it was clear that just a few centimeters away, and the midline was another hernia defect also containing greater omentum. As I continued this dissection down towards the umbilicus, it was clear that there are actually several hernia defects containing greater omentum. All of the spaces were carefully dissected free. It appeared that the spots were arising from spaces in between the previous fascial closure as best I could tell. There was evidence of some previous surgical mesh up within the most cephalad hernia space. In total, it appeared that there were basically 4 midline defects in the upper abdomen. There was a healthy bit of posterior fascia sheath between these and what appeared to be a separate umbilical hernia defect. This also appeared to contain greater omentum. This was reduced free, and the fascial edge was cleaned. Once all of this was clear, I began measuring against the anterior abdominal wall to estimate appropriate size for mesh. Ideally, I would have covered all of these defects with a single large mesh, but the space between a suitable landing zone towards the head, and below the level of the umbilicus was about 27 cm in total length, which exceeded our largest mesh. With a healthy bit of fascia in between the umbilical defect in the midline hernias, I felt the best option at that point was to use 2 separate meshes to obliterate these openings. Next, under the vision of the laparoscope I performed bilateral tap blocks using local anesthetic with Exparel. I then made another incision in the right mid abdomen and passed the 12 mm port into this location. Through this, I delivered a 15.[address] hernia mesh according to the manufactures instructions. The echo positioning system was used to approximate this against the anterior abdominal wall. There was excellent overlap of all of the upper midline fascial defects. The 4 cardinal points were pexied in place with a laparoscopic tacking device. Again, the mesh was reexamined to ensure that there was appropriate positioning and overlap. This looked excellent. The mesh was then permanently affixed in place with a VersaTack. Once this was complete, I turned my attention down to the umbilical hernia defect. I would estimate this to be about 3 and half centimeters in its largest dimension. Measuring against the anterior abdominal wall, and 11.4 cm circular mesh appeared to be the ideal option to exclude this. Using the previously mentioned ports, I delivered a circular 11.4 cm mesh into the peritoneal cavity. Again, with the assistance of the echo positioning system this was brought up against the anterior abdominal wall with sufficient fascial overlap for appropriate positioning and fixation. Using a technique exactly as described above, this mesh was affixed in position as well. Once this was complete, the 12 mm port was exchanged for a port closure device. The fascia was approximated with interrupted 0 Vicryl stitches. With these in place, the 5 mm port in the lower abdomen was removed. There was no evidence of any bleeding or hematoma. 5 mm port in the upper abdomen was then removed as well. Pneumoperitoneum was allowed to empty, and the fascial stitches were closed. The skin was approximated with subcuticular stitches at all 3 of the port sites, and Band-Aids were applied prior to extubating patient transferring him to the recovery unit.
[2024-01-17] VITALS (61 sets, daily range): BP systolic 72–123; BP diastolic 42–79; PULSE 63–86; RESP 9–24; TEMP 36–36.5; O2SAT 86–99; BMI 38.8
--- NOTE | 2024-01-17 08:30 | ANES.PREOP_ITS ---
General Info Date of Service Date Performed: 01/17/24 Height: 6 ft Weight: 129.8 kg Body Mass Index (BMI): 38.8 Surgical Procedure: Operation Date: 01/17/24 09:10 Proposed Procedure Side Surgeon p Hernia Ventral Laparoscopic Jake Larson MD Meds Allergies and Home Medications Allergies Allergy/AdvReac Type Severity Reaction Status Date / Time venlafaxine AdvReac Severe Nausea Verified 01/17/24 08:28 doxycycline AdvReac Intermediate Cold Verified 01/17/24 08:28 Chills, made him sick. liraglutide (From Victoza) AdvReac Intermediate GI upset Verified 01/17/24 08:28 Home Medication ?Medication ?Instructions ?Recorded aspirin 81 mg tablet,delayed 81 mg PO DAILY 08/28/17 release (Aspir-) vitamin B complex (B 1 tab PO DAILY 08/19/19 Complex-Vitamin B12 tablet) blood-glucose sensor ([employer] G7 #1 ea 09/30/22 Sensor device) nitroglycerin 0.4 mg sublingual See Rx Instructions .Route 09/30/22 tablet .COMPLEX #100 tabs pen needle, diabetic 31 gauge x #500 ea 12/01/22 1/ (Comfort EZ Pen [place]) metoprolol succinate 50 mg 25 mg (1/2 x 50 mg) PO DAILY #90 12/21/22 tablet,extended release 24 hr tabs tamsulosin 0.4 mg capsule (Flomax) 0.4 mg PO DAILY #90 caps 04/05/23 allopurinol 100 mg tablet 200 mg (2 x 100 mg) PO DAILY #180 05/16/23 tabs glucagon 3 mg/actuation nasal spray 3 mg intranasal ONCE PRN 05/16/23 hypoglycemia #2 ea acetaminophen 500 mg tablet 1,000 mg (2 x 500 mg) PO TID #90 06/28/23 tabs ibuprofen 600 mg tablet 600 mg PO TID PRN pain #90 tabs 06/28/23 empagliflozin 25 mg tablet 25 mg PO DAILY #90 tabs 07/13/23 atorvastatin 80 mg tablet 80 mg PO QHS #90 tabs 10/02/23 pantoprazole 40 mg tablet,delayed 40 mg PO BID #180 tabs 10/09/23 release fluticasone fur. 200 mcg-umeclid 1 inh inhalation DAILY #60 ea 10/23/23 62.5 mcg-vilant 25 mcg inhalat.powder (Trelegy Ellipta) insulin degludec 200 unit/mL (3 160 unit subcut HS 10/24/23 mL) subcutaneous pen colchicine 0.6 mg tablet (Colcrys) See Rx Instructions PO .COMPLEX 10/31/23 #30 tabs folic acid 1 mg tablet 1 mg PO DAILY #90 tabs 10/31/23 albuterol sulfate 90 mcg/actuation 2 puff inhalation Q6H PRN 12/18/23 aerosol inhaler shortness of breath or wheezing #8.5 grams insulin lispro-aabc 200 unit/mL (3 40 unit (0.2 mL) subcut QACHS #18 12/26/23 mL) subcutaneous pen mL torsemide 20 mg tablet 40 mg (2 x 20 mg) PO DAILY #180 01/15/24 tabs Current Visit Medications: Current Medications Generic Name Dose Route Start Last Admin Trade Name Freq PRN Reason Stop Dose Admin Acetaminophen 1,000 mg 01/17/24 06:00 Acetaminophen 500 Mg Tab PO 01/17/24 23:59 PREOP YAW Celecoxib 200 mg 01/17/24 06:00 Celecoxib 200 Mg Cap PO 01/17/24 23:59 PREOP YAW Gabapentin 600 mg 01/17/24 06:00 Gabapentin 300 Mg Cap PO 01/17/24 23:59 PREOP YAW Hydromorphone HCl 0.2 mg 01/16/24 18:56 Hydromorphone 1 Mg/Ml Syr IVP 02/15/24 18:55 Q1H PRN PRN Ringer's Solution 1,000 mls @ 80 mls/hr 01/17/24 06:00 IV 01/17/24 23:59 INFUSION YAW Cefazolin Sodium 3,000 mg/ 100 mls @ 200 mls/hr 01/17/24 06:00 Sodium Chloride IVPB 01/17/24 23:59 PREOP YAW IV Miscellaneous Supplies 1 each 01/17/24 06:00 Iv Access IV 01/17/24 23:59 DIRECTED YAW Sodium Chloride 0 ml 01/17/24 06:00 Normal Saline Flush 10 Ml Syr IV 01/17/24 23:59 PRN PRN Sodium Chloride 0 ml 01/17/24 06:00 Normal Saline 10 Ml Vial IJ 01/17/24 23:59 DIRECTED PRN Sterile Water 0 ml 01/17/24 06:00 Water,Injection,Sterile 10 Ml Vial IJ 01/17/24 23:59 DIRECTED PRN Tramadol HCl 50 mg 01/16/24 18:56 Tramadol 50 Mg Tab PO 02/15/24 18:55 Q6H PRN PRN Pain PFSH Active Problems Active Problems: Problem Status Onset Code Ventral hernia without obstruction or gangrene Acute K43.9 Uncomplicated alcohol dependence Acute 08/07/19 F10.20 Hypertriglyceridemia Acute 07/25/23 E78.1 Delayed gastric emptying Acute 04/12/21 K30 Cervical spinal stenosis Acute 11/09/18 M48.02 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 Acute 04/12/21 K22.70 Rectal bleeding Acute K62.5 Chronic obstructive lung disease Chronic J44.9 Tubular adenoma of colon Acute 02/18/14 D12.6 Gross hematuria Acute R31.0 Cubital tunnel syndrome on left Acute G56.22 Carpal tunnel syndrome of right wrist Acute G56.01 Carpal tunnel syndrome of left wrist Acute G56.02 Gout due to renal impairment, multiple sites Acute M10.39 Hyperuricemia Acute E79.0 ALTMAN (nonalcoholic steatohepatitis) Chronic 01/04/23 K75.81 Pituitary abnormality Acute E23.7 Peripheral artery disease Acute I73.9 Orthostatic hypotension Acute I95.1 Diabetes mellitus with stage 3a chronic kidney disease, with long-term current use of insulin Acute E11.22, N18.31, Z79.4 Type 2 diabetes mellitus with diabetic neuropathy, with long-term current use of insulin Acute E11.40, Z79.4 Lumbosacral spondylosis without myelopathy Acute M47.817 Memory change Acute R41.3 Claudication Acute I73.9 Obesity Chronic E66.9 Bilateral lower extremity edema Chronic R60.0 Erectile dysfunction Acute N52.9 BPH loc w urin obs/LUTS Acute N40.1 Actinic keratosis due to exposure to sunlight Acute L57.0 Serrated adenoma of colon Acute ~04/2020 D12.6 Diabetic peripheral neuropathy Acute E11.42 GERD (gastroesophageal reflux disease) Acute K21.9 HTN (hypertension) Chronic I10 Smoker Acute F17.200 CAD S/P percutaneous coronary angioplasty Chronic 08/28/17 I25.10, Z98.61 Hyperlipidemia Chronic CARLOTA (obstructive sleep apnea) Chronic Depression with anxiety Chronic Medical History Medical History Colon polyp, hyperplastic (~04/2020) 04/13/20 HP x19 Pyelonephritis due to Escherichia coli History of left heart catheterization 10/05/22 [facility] [place]. 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 Cervical disc disease Chronic neck pain Thoracic spine pain (07/17/15) Spondylosis of cervical region without myelopathy or radiculopathy (04/17/15) Chronic pain syndrome (09/30/16) 08/19/16-CONTROLLED SUBSTANCE AGREEMENT-APPROVED FOR 3 MONTHS Chronic left-sided low back pain with left-sided sciatica (12/03/15) Blindness, 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 Acute nontraumatic kidney injury Parastomal hernia Medical History Comments:: Dexcon CGM on R U arm - BS is 108 mg/dL at 09:12 am Surgical History Surgical History Ganglion cyst of dorsum of right wrist S/P Excision: 06/06/2023 Status post vasectomy Status post Luisana fundoplication Status post inguinal hernia repair Status post carpal tunnel release (~11/2023) left History of esophagogastroduodenoscopy (~04/2023) History of incisional hernia repair with mesh right ulnar graft left shoulder repair Luisana Fundoplication Colonoscopy - MAC (~04/2023) 02/18/14 Tobacco Smoking/Tobacco Use Status: Current every day Tobacco Type: cigarettes Smoking packs per day: 2 Smoking cigarettes per day: 40.0 Smokeless tobacco user: snuff Passive smoking exposure: Yes Second hand exposure: Yes Counseling given: provider counseling Alcohol Alcohol Intake: current Alcohol intake frequency: holidays/special occasions only Alcohol type: hard liquor Substance Use Substance use: Never Substance use type: does not use Vital Signs and Lab Results Vital Signs Most Recent Vital Signs in EMR: Temp Pulse Resp BP Pulse Ox 36.4 C L 83 16 123/79 92 01/17/24 08:10 01/17/24 08:10 01/17/24 08:10 01/17/24 08:10 01/17/24 08:10 Lab Results Blood Type / Crossmatch: No Data to Display Complete Blood Count: No Data to Display Complete Metabolic Panel: No Data to Display Liver Function Panel: No Data to Display Coagulation Panel: No Data to Display Cardiac Panel: No Data to Display Arterial Blood Gas: No Data to Display Venous Blood Gas: No Data to Display Pancreas Panel: No Data to Display Thyroid Panel: No Data to Display Infectious Disease: No Data to Display Blood Cultures: No Data to Display Toxicology Panel: No Data to Display Imaging and Studies Imaging and Studies Study information below may be from another EMR and interpreted by another provider. Please see original notes in EMR for more complete details. EKG Summary: 11/03: sinus rhythm 10/02: sinus tessa. Stress Test Summary: Date of Exam: 04/23/18 Impressions: - Normal study after pharmacologic stress. - Good functional capacity - stress converted to pharm stress as THR not achieved. Summary: 1. Myocardial perfusion imaging: No myocardial perfusion defects noted. 2. The calculated left ventricular ejection fraction after stress: 70%. LV global systolic function is normal. No left ventricular regional motion abnormality. 3. Stress: The target heart rate was not achieved. Echocardiogram Summary: 02/01: LVEF 55-60%, no sig valve dz. Carotid Artery Summary:: 01/01: No evidence of a hemodynamically significant carotid stenosis. Pulmonary Function Summary: 09/03: mild airflow obstruction 11/29: Mild obstructive airways disease with no significant bronchodilator response. Clinical correlation recommended. Anesthesia Assessment and Plan Anesthesia History Personal History: No History of Anesthesia Complications Family History: No Family History of Anesthesia Complications Exercise Tolerance Exercise Tolerance: Metabolic Equivalents>4 Pertinent Negatives Pertinent Negatives: No Symptoms of GERD Cardiac & Pulmonary Exam Cardiac Exam: Normal S1/S2 Heart Sounds Pulmonary Exam: Clear Bilateral Breath Sounds Implantable Cardiac Device Does patient have a Pacemaker or an ICD?: No Airway Exam Known Difficult Airway: No Mallampati Class: 3 Mouth Opening: Normal (> 3cm) Thyromental Distance: Greater than 3 cm Neck Range of Motion: Limited ROM (pt reports intermittent pain and numbness in hands related to neck movement ) Neck Circumference: Thick Teeth Condition: Normal Dentition ASA Classification ASA Score: ASA 3 Emergency Case?: No NPO Status NPO Status: NPO Clears >2 hours, Solids >8 hours Anesthesia Plan Resuscitation Status: Full Code Anesthesia Technique: General Anesthesia Airway Planned: Endotracheal Tube Monitors Used: Standard Monitors Preoperative Comments:: 57 yo male for lap hernia repair. Sig PMHx: CAD (2018, 2020, 3 stents, denies nitro use), HTN, CARLOTA, COPD (trelgy, albuterol. well controlled), GERD (well controlled), depression, anxiety, DM (last A1c 6.7, empagliflozin, degludec, lispro-aabc, metformin), peripheral neuropathy (DM, spinal stenosis). Previous Anes: - open capral tunnel, LMA 5, no issues. - ulnar nerve decompression, prop/sevo/fent, glide 4 grade 1, masked with OPA - difficult. ETT used due to reflux and DM. - wrist cyst, ketamine/prop, natural airway, no issues. - multiple colo/egds, prop, natural airway, no issues. - TURBT, prop, natural airway, albuterol, no issues.
[2024-01-17] MEDS: Gabapentin 300 MG CAP 600 MG PO (08:47)
[2024-01-17] MEDS: Acetaminophen 500 MG TAB 1000 MG PO (08:48)
[2024-01-17] MEDS: Celecoxib 200 MG CAP PO (08:48)
[2024-01-17] MEDS: Lactated Ringers 500 ML 80 ML IV (09:38)
--- NOTE | 2024-01-17 09:49 | W.PM.HP.N ---
Date of service: 01/17/24 Time of Service: 09:49 Assessment and Plan Assessment and plan (1) Ventral hernia without obstruction or gangrene: Status: Acute Assessment and plan: We reviewed the plan for hernia repair once again today. I intend to repair this laparoscopically, but conduct of the operation will largely depend upon what is found intraoperatively. I think Samy is a very good understanding of what to expect in terms of the nature of the operation itself, as well as the recovery. He had the opportunity to ask any other questions, and I think we are in a good position to proceed as planned. History of Present Illness History of Present Illness Chief Complaint: ventral hernia Narrative: He is 58 years old, and is here for my opinion regarding some abdominal wall hernia defects. In particular, he describes uncomfortable lump just to the left side of his epigastric area. It sounds like this all started many years ago as a complication from perhaps a gastric ulcer. Although he is also undergone hiatal hernia repair with Luisana fundoplication, making it a little bit difficult to discern exactly what incision the hernia is arising from. His chief complaint regards the upper midline defect, which is particularly painful when he bends over, and with physical exertion. He also has discomfort associated with an umbilical hernia with similar activities. Symptoms are typically relieved with rest, and lying flat. Since his last office encounter, there have been no major significant interval changes to the history with regards to his abdominal wall. Review of Systems Narrative: No fevers or chills Decreased vision left eye. No dysphasia Diabetes. No thyroid dysfunction Sleep apnea. No cough or hemoptysis CAD, claudication. No chest pain or palpitations GERD. No nausea, vomiting, hepatitis, ulcers, jaundice Diabetic neuropathy. No seizures or stroke No bleeding disorders or anemia Hx gout. Chronic back pain. [facility] All Active Problems Ventral hernia without obstruction or gangrene (Acute) Uncomplicated alcohol dependence (Acute 08/07/19) Hypertriglyceridemia (Acute 07/25/23) Delayed gastric emptying (Acute 04/12/21) Cervical spinal stenosis (Acute 11/09/18) 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 (Acute 04/12/21) Rectal bleeding (Acute) Chronic obstructive lung disease (Chronic) Tubular adenoma of colon (Acute 02/18/14) 2/1/21 TAx5 2 additional polyps 2023 Gross hematuria (Acute) Cubital tunnel syndrome on left (Acute) S/P Release: 06/28/2023 Carpal tunnel syndrome of right wrist (Acute) Carpal tunnel syndrome of left wrist (Acute) S/P ECTR: 06/28/2023 S/P OCTR: 11/14/2023 Gout due to renal impairment, multiple sites (Acute) Hyperuricemia (Acute) ALTMAN (nonalcoholic steatohepatitis) (Chronic 01/04/23) Elev Alk Phos, abd u/s Pituitary abnormality (Acute) Seen incidentally, normal cortisol and TSH Peripheral artery disease (Acute) [place] [facility] [place]. Orthostatic hypotension (Acute) Diabetes mellitus with stage 3a chronic kidney disease, with long-term current use of insulin (Acute) Type 2 diabetes mellitus with diabetic neuropathy, with long-term current use of insulin (Acute) Lumbosacral spondylosis without myelopathy (Acute) Memory change (Acute) Claudication (Acute) Obesity (Chronic) Bilateral lower extremity edema (Chronic) left > right; felt to be venous insufficiency, not wearing compression. Normal echo in 12/2021 Erectile dysfunction (Acute) BPH loc w urin obs/LUTS (Acute) Actinic keratosis due to exposure to sunlight (Acute) Serrated adenoma of colon (Acute ~04/2020) 04/13/20 Sessile serrated adenomax2 Diabetic peripheral neuropathy (Acute) GERD (gastroesophageal reflux disease) (Acute) HTN (hypertension) (Chronic) Smoker (Acute) 1/2 pack daily CAD S/P percutaneous coronary angioplasty (Chronic 08/28/17) Hyperlipidemia (Chronic) CARLOTA (obstructive sleep apnea) (Chronic) Not using CPAP Depression with anxiety (Chronic) resistant to treatment with antidepressants Medical History Colon polyp, hyperplastic (~04/2020) 04/13/20 HP x19 Pyelonephritis due to Escherichia coli History of left heart catheterization 10[place]05[place] [facility] 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 Cervical disc disease Chronic neck pain Thoracic spine pain (07/17/15) Spondylosis of cervical region without myelopathy or radiculopathy (04/17/15) Chronic pain syndrome (09/30/16) 08/19/16-CONTROLLED SUBSTANCE AGREEMENT-APPROVED FOR 3 MONTHS Chronic left-sided low back pain with left-sided sciatica (12/03/15) Blindness, 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 Acute nontraumatic kidney injury Parastomal hernia Surgical History Ganglion cyst of dorsum of right wrist S/P Excision: 06/06/2023 Status post vasectomy Status post Luisana fundoplication Status post inguinal hernia repair Status post carpal tunnel release (~11/2023) left History of esophagogastroduodenoscopy (~04/2023) History of incisional hernia repair with mesh right ulnar graft left shoulder repair Luisana Fundoplication Colonoscopy - MAC (~04/2023) 02/18/14 Family History Father , age 74 Diabetes Alcohol abuse sober in later years Essential hypertension Hyperlipidemia Cancer Mother , age 72 Diabetes Essential hypertension Heart disease Hyperlipidemia Mental disorder pt thinks she has bipolar Depression Brother Hyperlipidemia Depression Diabetes Heart disease Hypertension Sister Alcohol abuse Depression Stroke Substance abuse Sister Depression Heart disease Hypertension Brother Hyperlipidemia Hypertension Brother , age 29 Alcohol abuse Depression Substance abuse Social History Smoking/Tobacco Use Status: Current every day Tobacco Type: cigarettes Smoking packs per day: 2 Smoking cigarettes per day: 40.0 Tobacco: How many years used: 24 Smokeless tobacco user: snuff Quit status: considering quitting Second Hand Exposure: Yes Counseling given: provider counseling Smoking risk assessment performed?: Yes Alcohol Intake: current Alcohol Intake frequency: holidays/special occasions only Alcohol type: hard liquor Drug use: Never Substance use type: does not use Caregiver/Support person: No Household members: spouse and family Housing: house Communication Needs: None Do you need help understanding health information?: Rarely 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 Pets and animals: Yes Pets and animals: dog(s) Sexually active: No Do you think of yourself as: straight/heterosexual Current gender identity: male What is your relationship status?: How often do you talk on the phone with friends or family?: once per week How often do you get together with friends or relatives?: once per week How often do you attend mu-ism or anabaptist services?: decline to answer Do you belong to any clubs or organized social groups?: no Panel score (0-1 are the most socially isolated patients): 1 Duration: decline to answer Frequency: decline to answer Mayela/Islam: No preference Special mayela needs: No Seatbelt use: always Helmet use: Yes Helmet use: always Drive intox or ride w/intox medical driver: No Do you feel safe at home: Yes Do you feel safe in your relationship?: Yes Meds Allergies and Home Medications Allergies Allergy/AdvReac Type Severity Reaction Status Date / Time venlafaxine AdvReac Severe Nausea Verified 01/17/24 08:28 doxycycline AdvReac Intermediate Cold Verified 01/17/24 08:28 Chills, made him sick. liraglutide (From Victoza) AdvReac Intermediate GI upset Verified 01/17/24 08:28 Home Medications ?Medication ?Instructions ?Recorded ?Confirmed ?Type aspirin 81 mg tablet,delayed 81 mg PO DAILY 08/28/17 01/15/24 History release (Aspir-) vitamin B complex (B 1 tab PO DAILY 08/19/19 01/17/24 History Complex-Vitamin B12 tablet) blood-glucose sensor ([employer] G7 #1 ea 09/30/22 12/19/23 Rx Sensor device) nitroglycerin 0.4 mg sublingual See Rx Instructions .Route 09/30/22 01/17/24 Rx tablet .COMPLEX #100 tabs pen needle, diabetic 31 gauge x #500 ea 12/01/22 12/19/23 Rx 1/4 (Comfort EZ Pen [place]) metoprolol succinate 50 mg 25 mg (1/2 x 50 mg) PO DAILY #90 12/21/22 01/17/24 Rx tablet,extended release 24 hr tabs tamsulosin 0.4 mg capsule (Flomax) 0.4 mg PO DAILY #90 caps 04/05/23 01/17/24 Rx allopurinol 100 mg tablet 200 mg (2 x 100 mg) PO DAILY #180 05/16/23 01/17/24 Rx tabs glucagon 3 mg/actuation nasal spray 3 mg intranasal ONCE PRN 05/16/23 01/17/24 Rx hypoglycemia #2 ea acetaminophen 500 mg tablet 1,000 mg (2 x 500 mg) PO TID #90 06/28/23 01/17/24 Rx tabs ibuprofen 600 mg tablet 600 mg PO TID PRN pain #90 tabs 06/28/23 01/17/24 Rx empagliflozin 25 mg tablet 25 mg PO DAILY #90 tabs 07/13/23 01/15/24 Rx atorvastatin 80 mg tablet 80 mg PO QHS #90 tabs 10/02/23 01/17/24 Rx pantoprazole 40 mg tablet,delayed 40 mg PO BID #180 tabs 10/09/23 01/17/24 Rx release fluticasone fur. 200 mcg-umeclid 1 inh inhalation DAILY #60 ea 10/23/23 01/17/24 Rx 62.5 mcg-vilant 25 mcg inhalat.powder (Trelegy Ellipta) insulin degludec 200 unit/mL (3 160 unit subcut HS 10/24/23 01/17/24 History mL) subcutaneous pen colchicine 0.6 mg tablet (Colcrys) See Rx Instructions PO .COMPLEX 10/31/23 01/17/24 Rx #30 tabs folic acid 1 mg tablet 1 mg PO DAILY #90 tabs 10/31/23 01/17/24 Rx albuterol sulfate 90 mcg/actuation 2 puff inhalation Q6H PRN 12/18/23 01/17/24 Rx aerosol inhaler shortness of breath or wheezing #8.5 grams insulin lispro-aabc 200 unit/mL (3 40 unit (0.2 mL) subcut QACHS #18 12/26/23 01/17/24 Rx mL) subcutaneous pen mL torsemide 20 mg tablet 40 mg (2 x 20 mg) PO DAILY #180 01/15/24 01/17/24 Rx tabs Exam Const General: cooperative, healthy appearing and not in acute distress Nutritional Appearance: obese Neck Neck: supple Thyroid: thyroid normal Resp Effort & Inspection: normal respiratory effort Auscultation: clear to auscultation bilaterally Cardio Jugular venous pressure: no JVD Rate: regular rate Rhythm: regular rhythm Heart Sounds: S1 normal and S2 normal GI Inspection: obesity Palpation: soft Percussion: normal to percussion Auscultation: normal bowel sounds Other: There is a mostly reducible small umbilical hernia, and a larger upper abdominal incisional hernia. Neuro General: patient alert, patient awake and patient oriented x3 Psych Appearance: grossly normal Results Last Vital Signs Temp 97.5 F L 01/17/24 08:10 Pulse 83 01/17/24 08:10 Resp 16 01/17/24 08:10 BP 123/79 01/17/24 08:10 Pulse Ox 92 01/17/24 08:10 Time Spent Time spent with Patient: <40 minutes Time was spent: preparing to see the patient(eg.review tests) and counseling the patient
[2024-01-17] MEDS: Bupivacaine 0.25% Pres-Free 30 ML VIAL (10:33)
[2024-01-17] MEDS: Bupivacaine LIPOSOME/PF 133 MG/10 ML VIAL IJ (10:33)
[2024-01-17] MEDS: Normal Saline 20 ML VIAL (10:34)
[2024-01-17] MEDS: ePHEDrine 25 MG/5 ML Syringe IVP ×3 (12:56→13:32)
[2024-01-17] MEDS: Albuterol/Ipratropium 3 ML UPD VIAL UPD (13:58)
--- NOTE | 2024-01-17 15:01 | W.ANESPOSTOP ---
Postoperative Evaluation Date, Time and Location Date Performed: 01/17/24 Time Performed: 15:01 Patient Location: PACU Vital Signs Most Recent Imported Vital Signs: Most Recent Vital Signs Temp Pulse Resp BP Pulse Ox 36 C L 73 16 98/65 L 94 01/17/24 14:48 01/17/24 14:48 01/17/24 14:48 01/17/24 14:48 01/17/24 14:48 Pain Score Most Recent Pain Score: Most Recent Pain Score Pain Level 6 01/17/24 14:41 Assessment Mental Status: Awake (Alert & Oriented to Patient Baseline) Airway and Respiratory Function: Patent airway with normal (patient baseline) respiratory exam Cardiovascular Function: Hemodynamically Stable Hydration Status: Adequately Hydrated Nausea & Vomiting: No Nausea or Vomiting Pain: Pain is tolerable per patient (Despite 08/20, pt. woud like to go home and avoid additional pain medications. He will continue with tylenol/ibuprofen at home. ) Peripheral Nerve Block: Patient did not receive a nerve block
== END 2024-01-17 15:45 | disposition home or self-care (01) ==
LOC: SUR 08:04
PROVIDERS: PCP Family Medicine; Visit Provider Surgery
PROC: 0WQF4ZZ Repair Abdominal Wall, Percutaneous Endoscopic Approach (ICD-10-PCS; CPT 49595; principal; 2024-01-17 09:00)
DX: K43.9 Ventral hernia without obstruction or gangrene (principal); K21.9 Gastro-esophageal reflux disease without esophagitis; I25.10 Atherosclerotic heart disease of native coronary artery without angina pectoris; Z98.61 Coronary angioplasty status; E66.9 Obesity, unspecified; E11.40 Type 2 diabetes mellitus with diabetic neuropathy, unspecified; Z79.4 Long term (current) use of insulin; I10 Essential (primary) hypertension
CPT/HCPCS: 49595; C1781; C9290; J0665; J1100; J2250; J2371; J2405; J2704; J7620

== ENCOUNTER 2024-01-25 01:09 | Outpatient (CLI) | payer MEDICARE, OTHER, SELFPAY ==
--- NOTE | 2024-01-25 08:21 | DI.CTLCSR_ITS ---
Exam(s) CT CHEST LUNG CANCER SCREEN EXAM: CT CHEST LUNG CANCER SCREEN CLINICAL HISTORY: Screening for lung cancer,current smoker, f17.210 TECHNIQUE: Imaging Protocol: Axial computed tomography images with coronal and sagittal reformatted images were created and reviewed. Low dose screening protocol. COMPARISON: CT CT CHEST LUNG CANCER SCREEN from 10/19/2022 FINDINGS: Tracheobronchial tree: No bronchiectasis or mucus plugging. Mediastinum and Ariane: No dominant adenopathy or fluid collection. Small hiatal hernia. Pulmonary parenchyma: No consolidation or dominant measurable mass. Nwma-ni-uocuzamw emphysematous ch anges. Mild interstitial changes greater at the upper lobes. Lung Nodules: There are a few bilateral stable tiny peripheral nodules, less than 3 millimeters in si ze. Pleura: No effusion. No pneumothorax. Heart: The heart is not dilated. Severe coronary artery calcifications are seen. No pericardial effu aixa. Aorta: Thoracic aorta non-dilated. Prominent pulmonary arteries again noted. Upper abdomen: Unremarkable. Bones: Unremarkable for age. Soft Tissues: Unremarkable. IMPRESSION: No suspicious pulmonary nodules. Lung RADS Cat 2 - Benign Appearance / Behavior: Nodules with a very low likelihood of becoming a clin ically active cancer due to size or lack of growth Lung-RADS 1.0 CATEGORIES: Category 0 - Prior chest CT exam(s) being located for comparison. Category 1 - Annual screening in 12 months. No nodules or definitely benign nodules. Category 2 - Annual screening in 12 months. Benign appearance. Nodules with low likelihood of becomin g active cancer. Category 3 - 6-month follow-up. Probably benign. Short-term follow-up suggested. Nodules with low lik elihood of becoming active cancer. Category 4A - 3-month follow-up and CT/PET if >8 mm in size. Suspicious finding. Findings which requi re additional testing. Category 4B - Findings which require additional testing and tissue sampling. Category 4X - Category 3 or 4 nodules with additional features or imaging findings that increases the suspicion of malignancy. Modifier S- Potentially clinically significant findings (non lung cancer) RADIATION DOSE DELIVERED: !Error Total DLP DATA REPOSITORY: All CT scans at this facility are submitted to the National Radiology Data Registry (NRDR) Dose Index Registry (DIR) with the [employer] (ACR). RADIATION OPTIMIZATION: All CT scans at this facility use at least one of these dose optimization te chniques: automated exposure control; mA and/or kV adjustment per patient size (includes targeted exa ms where dose is matched to clinical indication); or iterative reconstruction.
--- NOTE | 2024-01-25 11:45 | DI.CT_ITS ---
Exam(s) CT SINUS WO EXAM: CT SINUS WO CLINICAL HISTORY: Acute right frontal sinusitis, J01.10. Evaluate for sinusitis. TECHNIQUE: Imaging Protocol: Axial computed tomography images with coronal and sagittal reformatted images were created and reviewed. COMPARISON: CT CT HEAD WO from 12/10/2023 FINDINGS: Frontal sinuses: Diminutive but completely opacified. Ethmoid air cells: The ethmoid air cells are nearly completely opacified. Maxillary sinuses: Mucosal thickening, right greater than left. Sphenoid sinuses: Mucosal thickening. Ostiomeatal complexes: Occluded bilaterally. Nasal cavity: Septum is midline. Thickening of nasal turbinates, greater on the right. Visualized regional soft tissues: No acute findings. Orbits: Unremarkable. Bones: Unremarkable. Mastoid Air Cells: Normally aerated. Visualized portions of the brain: Unremarkable as visualized. IMPRESSION: Severe chronic frontal ethmoid sinus disease with worsening when compared with recent head CT. RADIATION DOSE DELIVERED: 121.39mGy.cm Total DLP DATA REPOSITORY: All CT scans at this facility are submitted to the National Radiology Data Registry (NRDR) Dose Index Registry (DIR) with the [employer] (ACR). RADIATION OPTIMIZATION: All CT scans at this facility use at least one of these dose optimization te chniques: automated exposure control; mA and/or kV adjustment per patient size (includes targeted exa ms where dose is matched to clinical indication); or iterative reconstruction.
== END 2024-01-25 01:29 ==
PROVIDERS: PCP Family Medicine; Visit Provider Nurse Practitioner Family
DX: J32.1 Chronic frontal sinusitis (principal); Z12.2 Encounter for screening for malignant neoplasm of respiratory organs; F17.210 Nicotine dependence, cigarettes, uncomplicated
CPT/HCPCS: 71271; 70486

== ENCOUNTER → 2024-01-30 08:13 | Outpatient (BNVA) | payer MEDICARE, OTHER, SELFPAY | PROVIDERS: PCP Family Medicine; Referring Provider Family Medicine; Visit Provider Surgery | DX: Z48.817 Encounter for surgical aftercare following surgery on the skin and subcutaneous tissue (principal); Z87.19 Personal history of other diseases of the digestive system ==

== ENCOUNTER → 2024-02-01 10:18 | Outpatient (BNVA) | payer MEDICARE, OTHER, SELFPAY | PROVIDERS: PCP Family Medicine; Referring Provider Family Medicine; Visit Provider Psychiatry & Neurology Neurology | DX: G56.22 Lesion of ulnar nerve, left upper limb (principal); M47.817 Spondylosis without myelopathy or radiculopathy, lumbosacral region; E11.42 Type 2 diabetes mellitus with diabetic polyneuropathy; R41.3 Other amnesia; I95.1 Orthostatic hypotension | CPT/HCPCS: 99215 ==

== ENCOUNTER → 2024-03-11 08:09 | Outpatient (BNVA) | payer MEDICARE, OTHER, SELFPAY | PROVIDERS: PCP Family Medicine; Referring Provider Family Medicine; Visit Provider Physician Assistant | DX: G56.02 Carpal tunnel syndrome, left upper limb (principal); Z47.89 Encounter for other orthopedic aftercare | CPT/HCPCS: 99213 ==

== ENCOUNTER 2024-03-22 09:13 | Outpatient (CLI) | payer MEDICARE, OTHER, SELFPAY ==
--- NOTE | 2024-03-22 08:33 | DI.RAD_ITS ---
Exam(s) XR CHEST 2V PA LATERAL EXAM: XR CHEST 2V PA LATERAL CLINICAL HISTORY: pneumonia, community acquired pneumonia, J18.9 TECHNIQUE: 2D digital imaging was performed of the chest. Three images were obtained. PA and later al views were obtained. COMPARISON: CR XR CHEST 2V PA LATERAL from 11/19/2018 CR XR PORTABLE CHEST AP from 10/04/2022 CR XR PORTABLE CHEST AP from 10/24/2023 FINDINGS: MEDIASTINUM: Normal. HEART: Normal. PULMONARY VASCULATURE: Normal. LUNGS: No focal consolidating infiltrates. PLEURAL SPACE: No pleural effusion or pneumothorax. BONE:Within normal limits for the patient's age. OTHER FINDINGS:Normal. IMPRESSION: No acute pulmonary findings. DATA REPOSITORY: RADIATION DOSE DELIVERED:
== END 2024-03-22 09:33 ==
LOC: DI 09:13
PROVIDERS: PCP Family Medicine; Visit Provider Family Medicine
DX: J18.9 Pneumonia, unspecified organism (principal)
CPT/HCPCS: 87070; 87205; 71046

== ENCOUNTER 2024-05-01 08:03 | Outpatient (CLI) | payer MEDICARE, OTHER, SELFPAY ==
[2024-05-01 13:19] LABS: ALT 50 U/L (16-63); AST 27 U/L (15-37); Albumin 3.5 g/dL (3.4-5.0); Alkaline Phosphatase 135 U/L (46-116); Anion Gap 4.9 mmol/L (3-11); BUN 18 mg/dL (7-18); Bilirubin, Total 0.67 mg/dL (0.2-1.0); CO2 33.1 mmol/L (21.0-32.0); CREATININE 1.5 mg/dL (0.70-1.30); Calcium 9.6 mg/dL (8.5-10.1); Chloride 106 mmol/L (98-107); Estimated GFR 53.96 (mL/min/1.73m2); Glucose 156 mg/dL (74-106); Potassium 4.1 mmol/L (3.5-5.1); Sodium 144 mmol/L (136-145); Total Protein 7.2 g/dL (6.4-8.2); Uric Acid 4.6 mg/dL (3.5-7.2)
[2024-05-01 13:44] LABS: Microalb ug/mg Crea 4.4 ug/mg Cr
[2024-05-01 14:24] LABS: Calculated LDL 52 mg/dL (<100); Cholesterol 146 mg/dL (<200); HDL Cholesterol 41 mg/dL (40-60); Triglyceride 265 mg/dL (<150)
[2024-05-01 18:24] LABS: Hemoglobin A1C 6.9 % (<5.7)
== END 2024-05-01 08:04 | disposition home or self-care (01) ==
LOC: LOS 08:03
PROVIDERS: PCP Family Medicine; Referring Provider Family Medicine; Visit Provider Family Medicine
DX: E11.22 Type 2 diabetes mellitus with diabetic chronic kidney disease; N18.31 Chronic kidney disease, stage 3a; Z79.4 Long term (current) use of insulin; E79.0 Hyperuricemia without signs of inflammatory arthritis and tophaceous disease; Z13.6 Encounter for screening for cardiovascular disorders; E78.1 Pure hyperglyceridemia; E11.9 Type 2 diabetes mellitus without complications
CPT/HCPCS: 36415; 80053; 80061; 82043; 82570; 83036; 84550

== ENCOUNTER → 2024-06-07 08:45 | Outpatient (BNVA) | payer MEDICARE, OTHER, SELFPAY | PROVIDERS: PCP Family Medicine; Visit Provider Internal Medicine Cardiovascular Disease | DX: I25.10 Atherosclerotic heart disease of native coronary artery without angina pectoris (principal); Z98.61 Coronary angioplasty status | CPT/HCPCS: 99214 ==

== ENCOUNTER 2024-06-10 00:21 | Outpatient (CLI) | payer MEDICARE, OTHER, SELFPAY ==
--- NOTE | 2024-06-10 06:15 | DI.NM_ITS ---
APPROVED REPORT Exam: Pharmacologic Patient Location: Out-Patient Room/Bed: Stress Nurse: Antonina Leroy RN Ordering Provider:ADRY BURNETTE, Contact Number: BMI: 40.95 Baseline Rhythm: Sinus Rhythm Indications: CAD and atypical symptoms, atherosclerotic heart disease Medical History Medical History: Pyelonephritis due to echoli, hx left heart cath, [place], smoker, HLD, angina pectoris (unstable), PVD, barrets esophagus, blind in left eye, chronic pain disease, uncomplicated alcohol de pendence, hypertriglyceridemia, chronic obstructive lung disease, PAD, DMT2, chronic kidney disease, orthostatic hypotension, obesity, claudication, CAD, HTN, GERD, depression, anxiety Cardiac Medications: Albuterol sulfate, allopurinol, aspirin, atorvastatin, colchicine, empagliflozin , trelegy, glucagon nasal spray (PRN), tresiba, metoprolol succinate, torsemide, flomax, paroxetine, patoprazole, nitro Allergies: Venlafaxine, doxycycline, victoza Cardiac Risk Factors: Family hx, HTN, HLD, PVD, CVD, diabetes, COPD, former smoker, obesity Previous Cardiac Procedures: Left heart cath, cardiac stents x3 (2021) Pretest Chest Pain Characteristics: None Exercise History: Indeterminate Physical Disabilities: Claudication Lung Sounds: Clear to auscultation Heart Sounds: Regular Stress Test Details Test: Pharmacologic stress was paired with low level exercise. Reason for pharmacologic stress test: physical limitation. Nuclear Acquisition: Rest Tc-99m/Stress Tc-99m 1 day Rest Isotope: Tc-99m Sestamibi. Dose: 14.8 Date: 06/10/2024 Injection Time: 0835 Stress Isotope: Tc-99m Sestamibi. Dose: 45.8 Date: 06/10/2024 Injection Time: 1005 HR Resting HR Supine: 67 bpm Max Heart Rate (APMHR): 163 bpm Resting HR Standin bpm Target HR (85% APMHR): 139 bpm Max HR Achieved: 98 bpm % of APMHR: 60 Recovery HR: 66 bpm BP Resting BP Supine: 116/80 mmHg Resting BP Standin/72 mmHg Max BP: 140/78 mmHg Recovery BP: 128/72 mmHg ECG Resting ECG: Sinus Rhythm Ectopy: None Stress ECG: Sinus Rhythm ST Change: Nondiagnostic low heart rate Arrhythmia: None Recovery ECG: Sinus Rhythm Recovery ST Change: Nondiagnostic low heart rate Clinical Stress Symptoms: Mild SOB Angina Score: None Rate Pressure Product: [id number] Stress ECG Conclusion 1. Resting electrocardiogram was normal 2. Patient underwent testing using a combination of low-level exercise and pharmacologic stress with regadenoson 3. Peak heart rate achieved was 60% of maximal predicted heart rate for age 4. The electrocardiographic portion of the test was nondiagnostic 5. See MPI report Stress Test Summary STAGE HR BP SpO2 Symptoms NOTES Supine 67 104/70 95% Standing 78 112/72 1 min post Lexiscan injection 91 104/78 95% 3 min post Lexiscan injection 70 140/78 6 min post Lexiscan injection 66 128/72 93% MPI Conclusion Myocardial perfusion is normal. There is no ischemia or evidence of prior infarction Ejection fraction is 50% with normal wall motion
[2024-06-10] MEDS: Regadenoson 0.4 MG/5 ML SYR IVP (10:03)
== END 2024-06-10 00:41 ==
LOC: DI 00:21
PROVIDERS: PCP Family Medicine; Visit Provider Internal Medicine Cardiovascular Disease
DX: I25.84 Coronary atherosclerosis due to calcified coronary lesion (principal); I25.10 Atherosclerotic heart disease of native coronary artery without angina pectoris
CPT/HCPCS: 78452; 93016; 93018; 93017; J2785

== ENCOUNTER → 2024-07-09 07:51 | Outpatient (BNVA) | payer MEDICARE, OTHER, SELFPAY | PROVIDERS: PCP Family Medicine; Visit Provider Nurse Practitioner Gerontology | DX: R31.0 Gross hematuria (principal); N40.1 Benign prostatic hyperplasia with lower urinary tract symptoms; R35.0 Frequency of micturition; R39.9 Unspecified symptoms and signs involving the genitourinary system; K59.00 Constipation, unspecified; R35.1 Nocturia | CPT/HCPCS: 51798; 81003; 99214 ==

== ENCOUNTER 2024-10-14 23:42 | Emergency (ER) | payer MEDICARE, OTHER, SELFPAY ==
[2024-10-14 23:47] VITALS: BP 146/60; PULSE 75; RESP 18; TEMP 36; O2SAT 93
--- NOTE | 2024-10-15 | DI.CT_ITS ---
Exam(s) CT BRAIN CTA EXAM: CT BRAIN CTA CLINICAL HISTORY: right sided DORMAN (temporal/posterior eye) severe. TECHNIQUE: Imaging Protocol: Axial CT angiography was performed with multi- slice acquisition and multi-planar and/or 3D reconstructions. CONTRAST MATERIAL: Intravenous: Omnipaque 350 contrast volume:70 mL COMPARISON: CT CT HEAD WO from 12/10/[address] SINUS WO from 01/25/2024 FINDINGS: CT Head W/O: Ventricles and Extra axial spaces: Normal in size and morphology for the patient's age. Hemorrhage: None. Cerebral parenchyma: There is no evidence of an acute territorial infarct or mass effect. Midline shift: None. Brainstem/Cerebellum: Normal. Calvarium: Normal. Visualized Paranasal sinuses/Mastoids: There is near complete opacification of the right maxillary sinus. There is opacification of the right ethmoid air cells. There is mucosal thickening seen in the sphenoid sinuses. The mastoid air cells are clear. Soft Tissues: Unremarkable. Enhancement: Unremarkable. CTA Brain W: Internal Carotid Arteries: No aneurysm, occlusion or significant stenosis. Atherosclerotic calcification is seen in the cavernous portions of the internal carotid arteries bilaterally with less than 50 percent stenosis. Anterior Cerebral Arteries: Right: No aneurysm, occlusion or significant stenosis. Left: No aneurysm, occlusion or significant stenosis. Middle Cerebral Arteries: Right: No aneurysm, occlusion or significant stenosis. Left: No aneurysm, occlusion or significant stenosis. Posterior cerebral Arteries: Right: No aneurysm, occlusion or significant stenosis. Left: No aneurysm, occlusion or significant stenosis. Vertebral Arteries: Right: No aneurysm, occlusion or significant stenosis. Left: No aneurysm, occlusion or significant stenosis. Basilar Artery: No aneurysm, occlusion or significant stenosis. IMPRESSION: 1. Findings of sinusitis predominantly involving the right paranasal sinuses. 2. No acute intracranial process. 3. No evidence of large vessel occlusion is seen. 4. The preliminary [facility] report was reviewed. RADIATION DOSE DELIVERED: 2,130.59mGy.cm Total DLP DATA REPOSITORY: All CT scans at this facility are submitted to the National Radiology Data Registry (NRDR) Dose Index Registry (DIR) with the [employer] (A[employer]). RADIATION OPTIMIZATION: All CT scans at this facility use at least one of these dose optimization techniques: automated exposure control; mA and/or kV adjustment per patient size (includes targeted exams where dose is matched to clinical indication); or iterative reconstruction.
[2024-10-15 00:12] LABS: Abs Immature Grans 0.04 10^3/uL (0.0-0.06); HCT 51.4 % (40.0-50.0); HGB 17.1 g/dL (13.5-17.5); Immature Grans % 0.4 %; MCH 29.6 pg (27.0-33.0); MCHC 33.3 % (32.0-36.0); MCV 89 fL (80-95); MPV 9.1 fL (8.0-11.0); Platelet Count 217 10^3/uL (130-400); RBC 5.77 10^6/uL (4.36-5.78); RDW 13.7 % (11.8-14.1); RDW-SD 44.6 fL; WBC 10.14 10^3/uL (4.4-10.8)
--- NOTE | 2024-10-15 00:12 | W.ED.GENAD ---
Discharge Plan Disposition Patient Disposition: Home Condition: Good Discharge Details Clinical Impression: Right maxillary sinusitis, Headache Primary Care Provider: Karen Barbosa ED Provider: Juan Jose Segura Home Meds and New Rx's Prescriptions: New amoxicillin-pot clavulanate 875-125 mg tablet 1 tab PO BID 14 Days Qty: 28 0RF No Action tamsulosin [Flomax] 0.4 mg capsule 0.4 mg PO BID Qty: 180 3RF fluticasone propionate [Flonase Allergy Relief] 50 mcg/actuation spray,suspension 2 spray intranasal DAILY Qty: 16 6RF Rx Instructions: administer into each nostril metoprolol succinate 50 mg tablet extended release 24 hr 25 mg PO DAILY Qty: 90 3RF vitamin B complex [B Complex-Vitamin B12] Tablet 1 tab PO DAILY (DME) [employer] G7 Sensor Device See Rx Instructions .Route Qty: 1 12RF Rx Instructions: As directed albuterol sulfate 90 mcg/actuation HFA aerosol inhaler 2 puff inhalation Q6H PRN (Reason: shortness of breath or wheezing) Qty: 8.5 4RF nitroglycerin 0.4 mg tablet, sublingual See Rx Instructions .ROUTE .COMPLEX Qty: 100 3RF Dose Instruction: PLACE ONE TABLET UNDER THE TONGUE EVERY 5 MINUTES FOR UP TO 3 DOSES NEEDED FOR CHEST PAIN. IF CHEST PAIN STILL PERSISTS CONTACT 911 Rx Instructions: PLACE ONE TABLET UNDER THE TONGUE EVERY 5 MINUTES FOR UP TO 3 DOSES NEEDED FOR CHEST PAIN. IF CHEST PAIN STILL PERSISTS CONTACT 911 glucagon 3 mg/actuation spray,non-aerosol 3 mg intranasal ONCE PRN (Reason: hypoglycemia) Qty: 2 1RF Rx Instructions: as a single dose atorvastatin 80 mg tablet 80 mg PO QHS Qty: 90 3RF folic acid 1 mg tablet 1 mg PO DAILY Qty: 90 4RF nystatin 100,000 unit/mL suspension 400,000 unit PO QID Qty: 473 0RF aspirin [Aspir-81] 81 MG tablet,delayed release (DR/EC) 81 mg PO DAILY Patient Comments: 08-28-17 per [facility]. -hb (DME) pen needle, diabetic [Comfort EZ Pen [place]] 31 gauge x 1/4 needle See Rx Instructions .ROUTE .MEDSUPPLY Qty: 500 4RF Rx Instructions: Five times daily colchicine [Colcrys] 0.6 mg tablet See Rx Instructions PO .COMPLEX Qty: 30 12RF Rx Instructions: 2 tabs once and May repeat 1 tab 6 hours later. May use once daily until symptoms improve; torsemide 20 mg tablet 40 mg PO DAILY Qty: 180 3RF Trelegy Ellipta 200-62.5-25 mcg blister with device 1 inh inhalation DAILY Qty: 60 4RF allopurinol 100 mg tablet 200 mg PO DAILY Qty: 180 3RF empagliflozin 25 mg tablet 25 mg PO DAILY Qty: 90 3RF paroxetine HCl 40 mg tablet 40 mg PO DAILY Qty: 90 3RF insulin degludec 200 unit/mL (3 mL) insulin pen 160 unit subcut HS Qty: 27 3RF Patient Comments: 80 units insulin lispro-aabc 200 unit/mL (3 mL) insulin pen 40 unit subcut QACHS Qty: 18 3RF Rx Instructions: up to 160 units / day. pantoprazole 40 mg tablet,delayed release (DR/EC) 40 mg PO BID Qty: 180 3RF (DME) pen needle, diabetic [Ultra-Fine Pen Needle] 31 gauge x 3/16 needle MISCELLANEOUS acetaminophen 500 mg tablet 1,000 mg PO TID Qty: 90 0RF ibuprofen 600 mg tablet 600 mg PO TID PRN (Reason: pain) Qty: 90 0RF Discharge Instructions Instructions: Cluster Headache, Sinusitis, Adult ED Additional Instructions: At this time your workup has returned reassuring. Your headache symptoms have resolved. You do have evidence of right-sided sinusitis at the area where your headache is. This may be a precipitating factor. We have sent the antibiotic for treatment of the sinusitis. Please take this as prescribed. In the meantime, please drink plenty fluids and stay well-hydrated. Please avoid foods that are high in nitrites. Avoid excessive caffeine. If you notice any worsening of your symptoms, or any new symptoms such as vomiting, diarrhea, fever, chills, shortness of breath, chest pain, numbness, weakness, or fainting , please return immediately to the emergency department for reevaluation. Please follow up with your primary care provider as soon as possible for reassessment and reevaluation. As always, it was a pleasure participating in your medical care today. Referrals: Karen Barbosa MD [Primary Care Provider, Medicine] HPI General Date/Time Provider Initiated Documentation: 10/14/24 23:49. HPI Narrative: This is a pleasant 58-year-old male with past medical history of tobacco use, ALTMAN, diabetes with neuropathy, GERD, hypertension, high cholesterol, coronary artery disease, obstructive sleep apnea, chronic blindness in the left eye who presents today for evaluation of headache. Patient states that at around 9 PM he developed headache, it was present behind his right eye, as well as his right bahai. It became worse throughout the evening, and then he awoke from sleep as it was severe at around midnight. He denies vision changes, fever, chills or trauma. He describes the headache as an achy stabbing pulsating sensation behind the eye but also in the bahai. He denies any new numbness or tingling. He does admit to a sensation of global weakness and fatigue currently but no focal weakness. The patient denies any headache red flags of thunderclap headache, neck pain, fever, chills, concerning family history of polycystic kidney disease, Marfan syndrome, Dayanna-Danlos syndrome, abdominal aortic aneurysm, aortic dissection, or intracranial aneurysm. No other complaints at this time. Related Data Home Medications ?Medication ?Instructions ?Recorded ?Confirmed aspirin 81 mg tablet,delayed 81 mg PO DAILY 08/28/17 10/14/24 release (Aspir-) vitamin B complex (B 1 tab PO DAILY 08/19/19 10/14/24 Complex-Vitamin B12 tablet) blood-glucose sensor (Dexcom G7 #1 ea 09/30/22 10/14/24 Sensor device) pen needle, diabetic 31 gauge x #500 ea 12/01/22 10/14/2403/16 (Comfort EZ Pen [place]) acetaminophen 500 mg tablet 1,000 mg (2 x 500 mg) PO TID #90 06/28/23 10/14/24 tabs ibuprofen 600 mg tablet 600 mg PO TID PRN pain #90 tabs 06/28/23 10/14/24 colchicine 0.6 mg tablet (Colcrys) See Rx Instructions PO .COMPLEX 10/31/23 10/14/24 #30 tabs albuterol sulfate 90 mcg/actuation 2 puff inhalation Q6H PRN 12/18/23 10/14/24 aerosol inhaler shortness of breath or wheezing #8.5 grams torsemide 20 mg tablet 40 mg (2 x 20 mg) PO DAILY #180 01/15/24 10/14/24 tabs fluticasone propionate 50 2 spray intranasal DAILY #16 grams 02/01/24 10/14/24 mcg/actuation nasal spray,suspension (Flonase Allergy Relief) fluticasone fur. 200 mcg-umeclid 1 inh inhalation DAILY #60 ea 03/11/24 10/14/24 62.5 mcg-vilant 25 mcg inhalat.powder (Trelegy Ellipta) metoprolol succinate 50 mg 25 mg (1/2 x 50 mg) PO DAILY #90 05/01/24 10/14/24 tablet,extended release 24 hr tabs allopurinol 100 mg tablet 200 mg (2 x 100 mg) PO DAILY #180 05/06/24 10/14/24 tabs glucagon 3 mg/actuation nasal spray 3 mg intranasal ONCE PRN 05/09/24 10/14/24 hypoglycemia #2 ea nitroglycerin 0.4 mg sublingual See Rx Instructions .Route 05/09/24 10/14/24 tablet .COMPLEX #100 tabs empagliflozin 25 mg tablet 25 mg PO DAILY #90 tabs 06/24/24 10/14/24 tamsulosin 0.4 mg capsule (Flomax) 0.4 mg PO BID #180 caps 07/09/24 10/14/24 paroxetine HCl 40 mg tablet 40 mg PO DAILY #90 tabs 08/12/24 10/14/24 insulin degludec 200 unit/mL (3 160 unit (0.8 mL) subcut HS #27 mL 09/05/24 10/14/24 mL) subcutaneous pen insulin lispro-aabc 200 unit/mL (3 40 unit (0.2 mL) subcut QACHS #18 09/09/24 10/14/24 mL) subcutaneous pen mL pantoprazole 40 mg tablet,delayed 40 mg PO BID #180 tabs 09/20/24 10/14/24 release atorvastatin 80 mg tablet 80 mg PO QHS #90 tabs 10/07/24 10/14/24 folic acid 1 mg tablet 1 mg PO DAILY #90 tabs 10/07/24 10/14/24 nystatin 100,000 unit/mL oral 400,000 unit (4 mL) PO QID #473 mL 10/07/24 10/14/24 suspension pen needle, diabetic 31 gauge x 10/14/24 10/14/24/16 (Ultra-Fine Pen Needle) amoxicillin 875 mg-potassium 1 tab PO BID 14 days #28 tabs 10/15/24 clavulanate 125 mg tablet Previous Rx's ?Medication ?Instructions ?Recorded blood-glucose sensor (Dexcom G7 #1 ea 09/30/22 Sensor device) pen needle, diabetic 31 gauge x #500 ea 12/01/22 1/ (Comfort EZ Pen [place]) acetaminophen 500 mg tablet 1,000 mg (2 x 500 mg) PO TID #90 06/28/23 tabs ibuprofen 600 mg tablet 600 mg PO TID PRN pain #90 tabs 06/28/23 colchicine 0.6 mg tablet (Colcrys) See Rx Instructions PO .COMPLEX 10/31/23 #30 tabs albuterol sulfate 90 mcg/actuation 2 puff inhalation Q6H PRN 12/18/23 aerosol inhaler shortness of breath or wheezing #8.5 grams torsemide 20 mg tablet 40 mg (2 x 20 mg) PO DAILY #180 01/15/24 tabs fluticasone propionate 50 2 spray intranasal DAILY #16 grams 02/01/24 mcg/actuation nasal spray,suspension (Flonase Allergy Relief) fluticasone fur. 200 mcg-umeclid 1 inh inhalation DAILY #60 ea 03/11/24 62.5 mcg-vilant 25 mcg inhalat.powder (Trelegy Ellipta) metoprolol succinate 50 mg 25 mg (1/2 x 50 mg) PO DAILY #90 05/01/24 tablet,extended release 24 hr tabs allopurinol 100 mg tablet 200 mg (2 x 100 mg) PO DAILY #180 05/06/24 tabs glucagon 3 mg/actuation nasal spray 3 mg intranasal ONCE PRN 05/09/24 hypoglycemia #2 ea nitroglycerin 0.4 mg sublingual See Rx Instructions .Route 05/09/24 tablet .COMPLEX #100 tabs empagliflozin 25 mg tablet 25 mg PO DAILY #90 tabs 06/24/24 tamsulosin 0.4 mg capsule (Flomax) 0.4 mg PO BID #180 caps 07/09/24 paroxetine HCl 40 mg tablet 40 mg PO DAILY #90 tabs 08/12/24 insulin degludec 200 unit/mL (3 160 unit (0.8 mL) subcut HS #27 mL 09/05/24 mL) subcutaneous pen insulin lispro-aabc 200 unit/mL (3 40 unit (0.2 mL) subcut QACHS #18 09/09/24 mL) subcutaneous pen mL pantoprazole 40 mg tablet,delayed 40 mg PO BID #180 tabs 09/20/24 release atorvastatin 80 mg tablet 80 mg PO QHS #90 tabs 10/07/24 folic acid 1 mg tablet 1 mg PO DAILY #90 tabs 10/07/24 nystatin 100,000 unit/mL oral 400,000 unit (4 mL) PO QID #473 mL 10/07/24 suspension amoxicillin 875 mg-potassium 1 tab PO BID 14 days #28 tabs 10/15/24 clavulanate 125 mg tablet Allergies Allergy/AdvReac Type Severity Reaction Status Date / Time venlafaxine AdvReac Severe Nausea Verified 10/14/24 23:51 doxycycline AdvReac Intermediate Cold Verified 10/14/24 23:51 Chills, made him sick. liraglutide (From Victoza) AdvReac Intermediate GI upset Verified 10/14/24 23:51 General Stated Complaint: Headache DIANE: 3 Exam Narrative Exam Narrative: 1.Const: Well-nourished, Well-developed, appearing stated age 2.Eyes: PERRL, no conjunctival injection, and symmetrical lids. Right sided intraocular pressure 12-15 on tonometry 3.ENT: Atraumatic external nose and ears. Moist MM. Neck: Symmetric, trachea midline, No thyromegaly. 4.CVS: +S1/S2, Peripheral pulses 2+ and equal in all extremities. Brisk capillary refill in all extremities. 5.RESP: Unlabored respiratory effort. Clear to auscultation bilaterally. No wheezes rales or rhonchi 6.GI: Soft, Nontender/Nondistended, No hepatosplenomegaly. No guarding or rebound. 7.MSK: Normocephalic/Atraumatic, Extremities w/o deformity or ttp No cyanosis or clubbing, Normal movement of all extremities 8.Skin: Warm, Dry. No rashes or lesions. 9.Neuro: coin purse framer II-XII grossly intact. Sensation grossly intact, no focal neurologic deficits. All 6 cardinal planes of vision are fully intact. No evidence of rotatory or vertical nystagmus. The patient demonstrated a normal [id number], good dexterity. There was no evidence of dysdiadochokinesia. Patient was able to ambulate without difficulty. There was no wide-based gait. Romberg testing was normal. Ppaf-mu-xesz testing was normal. Sensation was intact bilaterally as well as muscle strength bilaterally for all extremities. Patient was able to verbalize butter cup with no slurring, or miss pronunciation. 10.Psych: (AAO) x3. Appropriate mood and affect Course Vital Signs Vital signs: Vital Signs Temperature 36 C L 10/14/24 23:47 Pulse 75 10/14/24 23:47 Respiratory Rate 18 10/14/24 23:47 Blood Pressure 146/60 H 10/14/24 23:47 Pulse Oximetry 93 10/14/24 23:47 Temperature 36 C L 10/14/24 23:47 Temperature Source Temporal Artery Scan 10/14/24 23:47 Pulse 75 10/14/24 23:47 Respiratory Rate 18 10/14/24 23:47 Blood Pressure 146/60 H 10/14/24 23:47 Blood Pressure Position Supine 10/14/24 23:47 Pulse Oximetry 93 10/14/24 23:47 Oxygen Delivery Method Room Air 10/14/24 23:47 Oxygen Flow Rate 0 10/14/24 23:47 Pain Level 10 10/14/24 23:57 Medical Decision Making This is a pleasant 58-year-old male with past medical history of tobacco use, ALTMAN, diabetes with neuropathy, GERD, hypertension, high cholesterol, coronary artery disease, obstructive sleep apnea, chronic blindness in the left eye who presents today for evaluation of headache. Patient states that at around 9 PM he developed headache, it was present behind his right eye, as well as his right bahai. It became worse throughout the evening, and then he awoke from sleep as it was severe at around midnight. He denies vision changes, fever, chills or trauma. He describes the headache as an achy stabbing pulsating sensation behind the eye but also in the bahai. He denies any new numbness or tingling. He does admit to a sensation of global weakness and fatigue currently but no focal weakness. The patient denies any headache red flags of thunderclap headache, neck pain, fever, chills, concerning family history of polycystic kidney disease, Marfan syndrome, Dayanna-Danlos syndrome, abdominal aortic aneurysm, aortic dissection, or intracranial aneurysm. No other complaints at this time. Exam demonstrates no nuchal rigidity or meningeal mass to suggest meningitis. Intraocular pressure on the right is 12-15 suggesting no evidence of acute angle-closure glaucoma. Symptoms are not made worse with light change. Differential includes migraine headache, potentially aneurysm and less likely bleed. Patient was within the 6-hour window for CT scan efficacy. We will get CT/CTA imaging for this. Cluster headache is of concern with the right eye pain that feels stabbing and pulsatile. We will apply oxygen, give migraine cocktail of Solu-Medrol, Toradol, Ofirmev, Compazine, and Benadryl. Will rehydrate, monitor closely and reassess. 1:45 AM Patient's laboratory workup has returned benign. On reassessment the patient's pain has completely resolved after medication and oxygen. He feels well, and would like to go home. Repeat neurologic assessment shows no deficits. CT imaging shows no acute process, there is evidence of sinusitis though on the right which is where his pain symptomatology is. This may have been an aggravating or initiating factor for his current severe headache that he had. We will recommend treatment with Augmentin, he has been given a prescription sent to his pharmacy for this for 14 days. Otherwise with the resolution of his symptoms we have recommended avoidance Of caffeine, good hydration at home, and discussion with primary care provider about potential abortive medications. Patient understands. Discussed red flags which return. I have extensively reviewed the treatment plan and discharge instructions with the patient and their family. I have addressed all patient concerns at this time. The patient and family was made aware of what symptoms to monitor for that would warrant a return to the emergency department. Discussed the plan with the patient and family, they demonstrate verbal understanding and agreement with our assessment and plan at this time. The documentation in this chart was dictated using [employer] dictation software. Please excuse any dictation errors. FINDINGS: ANTERIOR CIRCULATION: Right internal carotid artery: Multifocal calcified atherosclerotic disease, probable [id number] stenosis of the clinoid segments. No occlusion. No aneurysm. Right middle cerebral artery: No occlusion or significant stenosis. No aneurysm. Right anterior cerebral artery: No occlusion or significant stenosis. No aneurysm. Left internal carotid artery: Multifocal calcified atherosclerotic disease, probable mild stenosis of the cavernous segment. No occlusion. No aneurysm. Left middle cerebral artery: No occlusion or significant stenosis. No aneurysm. Left anterior cerebral artery: No occlusion or significant stenosis. No aneurysm. POSTERIOR CIRCULATION: Right vertebral artery: No occlusion or significant stenosis. No aneurysm Left vertebral artery: No occlusion or significant stenosis. No aneurysm. Basilar artery: No occlusion or significant stenosis. No aneurysm. Right posterior cerebral artery: No occlusion or significant stenosis. No aneurysm. Left posterior cerebral artery: No occlusion or significant stenosis. No aneurysm. HEAD: Brain: Normal. No hemorrhage. Unremarkable white matter. No mass effect. Cerebral ventricles: Normal. No ventriculomegaly. Bones: Unremarkable. No acute fracture. Paranasal sinuses: Near-complete opacification of the right maxillary sinus. Multifocal right anterior and posterior ethmoidal air cell opacification. Frontal sinuses absent on the left, hypoplastic on the right, demonstrates opacification, drainage pathway of the right frontal sinuses occluded. Mastoid air cells: Visualized mastoids are normal. No mastoid effusion. Soft tissues: Unremarkable. IMPRESSION: 1. No large vessel occlusion. Atherosclerotic disease as above. 2. No acute intracranial process. 3. Findings suggest right sinusitis. Correlate clinically. Thank you for allowing us to participate in the care of your patient. 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 (Acute 04/12/21) Rectal bleeding (Acute) Chronic obstructive lung disease (Chronic) Tubular adenoma of colon (Acute 02/18/14) 04/13/20 TAx5 2 additional polyps 2023 Gross hematuria (Acute) Cubital tunnel syndrome on left (Acute) S/P Release: 06/28/2023 Carpal tunnel syndrome of right wrist (Acute) Carpal tunnel syndrome of left wrist (Acute) S/P ECTR: 06/28/2023 S/P OCTR: 11/14/2023 Gout due to renal impairment, multiple sites (Acute) Hyperuricemia (Acute) ALTMAN (nonalcoholic steatohepatitis) (Chronic 01/04/23) Elev Alk Phos, abd u/s Pituitary abnormality (Acute) Seen incidentally, normal cortisol and TSH Peripheral artery disease (Acute) normal AB[place] [facility] with exercise. Orthostatic hypotension (Acute) Diabetes mellitus with stage 3a chronic kidney disease, with long-term current use of insulin (Acute) Type 2 diabetes mellitus with diabetic neuropathy, with long-term current use of insulin (Acute) Lumbosacral spondylosis without myelopathy (Acute) Memory change (Acute) Claudication (Acute) Obesity (Chronic) Bilateral lower extremity edema (Chronic) left > right; felt to be venous insufficiency, not wearing compression. Normal echo in 12/2021 Erectile dysfunction (Acute) BPH loc w urin obs/LUTS (Acute) Actinic keratosis due to exposure to sunlight (Acute) Serrated adenoma of colon (Acute ~04/2020) 04/13/20 Sessile serrated adenomax2 Diabetic peripheral neuropathy (Acute) GERD (gastroesophageal reflux disease) (Acute) HTN (hypertension) (Chronic) Smoker (Acute) 1/2 pack daily CAD S/P percutaneous coronary angioplasty (Chronic 08/28/17) Hyperlipidemia (Chronic) CARLOTA (obstructive sleep apnea) (Chronic) Not using CPAP Depression with anxiety (Chronic) resistant to treatment with antidepressants Medical History Colon polyp, hyperplastic (~04/2020) 04/13/20 HP x19 Pyelonephritis due to Escherichia coli History of left heart catheterization 10/05/22 [facility]. -hb Angina pectoris, unstable negative cardiac cath, TTE at [facility] 09/2022 History of dysphagia PUD (peptic ulcer disease) History of Diaz's esophagus Blind left eye due to an accident Cervical disc disease Chronic neck pain Thoracic spine pain (07/17/15) Spondylosis of cervical region without myelopathy or radiculopathy (04/17/15) Chronic pain syndrome (09/30/16) 08/19/16-CONTROLLED SUBSTANCE AGREEMENT-APPROVED FOR 3 MONTHS Chronic left-sided low back pain with left-sided sciatica (12/03/15) Blindness, 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 Acute nontraumatic kidney injury Parastomal hernia Surgical History Hx of ventral hernia repair (~01/2024) Ganglion cyst of dorsum of right wrist S/P Excision: 06/06/2023 Status post vasectomy Status post Luisana fundoplication Status post inguinal hernia repair Status post carpal tunnel release (~11/2023) left History of esophagogastroduodenoscopy (~04/2023) History of incisional hernia repair with mesh right ulnar graft left shoulder repair Luisana Fundoplication Colonoscopy - MAC (~04/2023) 02/18/14 Family History Father , age 74 Diabetes Alcohol abuse sober in later years Essential hypertension Hyperlipidemia Cancer Mother , age 72 Diabetes Essential hypertension Heart disease Hyperlipidemia Mental disorder pt thinks she has bipolar Depression Brother Hyperlipidemia Depression Diabetes Heart disease Hypertension Sister Alcohol abuse Depression Stroke Substance abuse Sister Depression Heart disease Hypertension Brother Hyperlipidemia Hypertension Brother , age 29 Alcohol abuse Depression Substance abuse Social History Smoking/Tobacco Use Status: Current every day Tobacco Type: cigarettes Smoking packs per day: 2 Smoking cigarettes per day: 40.0 Tobacco: How many years used: 24 Smokeless tobacco user: snuff Quit status: considering quitting Second Hand Exposure: Yes Counseling given: provider counseling Smoking risk assessment performed?: Yes Alcohol Intake: current Alcohol Intake frequency: holidays/special occasions only Alcohol type: hard liquor Drug use: Never Substance use type: does not use Caregiver/Support person: No Household members: spouse and family Housing: house Communication Needs: None Do you need help understanding health information?: Rarely 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 Pets and animals: Yes Pets and animals: dog(s) Sexually active: No Do you think of yourself as: straight/heterosexual Current gender identity: male What is your relationship status?: How often do you talk on the phone with friends or family?: once per week How often do you get together with friends or relatives?: once per week How often do you attend tenriism or temple services?: decline to answer Do you belong to any clubs or organized social groups?: no Panel score (0-1 are the most socially isolated patients): 1 Duration: decline to answer Frequency: decline to answer Mayela/Christian: No preference Special mayela needs: No Seatbelt use: always Helmet use: Yes Helmet use: always Drive intox or ride w/intox front end driver: No Do you feel safe at home: Yes Do you feel safe in your relationship?: Yes
[2024-10-15] MEDS: Normal Saline 1,000 ML 1000 ML IV (00:14)
[2024-10-15] MEDS: methylPREDNISolone SUCC 125 MG VIAL IVP (00:15)
[2024-10-15] MEDS: ACETAMINOPHEN 1,000 MG/100 ML BAG 400 MG IVPB (00:15)
[2024-10-15] MEDS: Ketorolac 15 MG/ML VIAL IVP (00:16)
[2024-10-15] MEDS: Prochlorperazine 10 MG/2 ML VIAL IVP (00:16)
[2024-10-15] MEDS: diphenhydrAMINE 50 MG/ML VIAL 25 MG IVP (00:16)
[2024-10-15 00:27] LABS: Albumin 3.4 g/dL (3.4-5.0); Alkaline Phosphatase 128 U/L (46-116); Anion Gap 7.2 mmol/L (3-11); BUN 17 mg/dL (7-18); Bilirubin, Total 0.6 mg/dL (0.2-1.0); CO2 30.8 mmol/L (21.0-32.0); Calcium 9.1 mg/dL (8.5-10.1); Chloride 103 mmol/L (98-107); Estimated GFR 58.62 (mL/min/1.73m2); Glucose 102 mg/dL (74-106); Potassium 4.1 mmol/L (3.5-5.1); Sodium 141 mmol/L (136-145)
[2024-10-15 00:41] LABS: ALT 48 U/L (16-63); AST 34 U/L (15-37); Total Protein 7.0 g/dL (6.4-8.2)
[2024-10-15] MEDS: Omnipaque 350 MG/ML 100 ML BTL 70 ML IJ (00:57)
[2024-10-15] MEDS: Normal Saline - Diluent 50 ML VIAL IJ (00:59)
--- NOTE | 2024-10-15 01:17 | DI.VRAD_ITS ---
PROCEDURE INFORMATION: Exam: CTA Head Without And With Contrast, Arteriography Exam date and time: 10/15/2024 12:54 AM Age: 58 years old Clinical indication: Other: Right sided DORMAN (temporal/posterior eye) severe TECHNIQUE: Imaging protocol: Computed tomographic angiography of the head without and with contrast. Exam focused on the arteries. 3D rendering (Not supervised by radiologist): MIP and/or 3D reconstructed images were created by the technologist. Contrast material: OMNIPAQUE 350; Contrast volume: 70 ml; Contrast route: INTRAVENOUS (IV); COMPARISON: CT HEAD WO 12/10/2023 1:13 AM FINDINGS: ANTERIOR CIRCULATION: Right internal carotid artery: Multifocal calcified atherosclerotic disease, probable [id number] stenosis of the clinoid segments. No occlusion. No aneurysm. Right middle cerebral artery: No occlusion or significant stenosis. No aneurysm. Right anterior cerebral artery: No occlusion or significant stenosis. No aneurysm. Left internal carotid artery: Multifocal calcified atherosclerotic disease, probable mild stenosis of the cavernous segment. No occlusion. No aneurysm. Left middle cerebral artery: No occlusion or significant stenosis. No aneurysm. Left anterior cerebral artery: No occlusion or significant stenosis. No aneurysm. POSTERIOR CIRCULATION: Right vertebral artery: No occlusion or significant stenosis. No aneurysm. Left vertebral artery: No occlusion or significant stenosis. No aneurysm. Basilar artery: No occlusion or significant stenosis. No aneurysm. Right posterior cerebral artery: No occlusion or significant stenosis. No aneurysm. Left posterior cerebral artery: No occlusion or significant stenosis. No aneurysm. HEAD: Brain: Normal. No hemorrhage. Unremarkable white matter. No mass effect. Cerebral ventricles: Normal. No ventriculomegaly. Bones: Unremarkable. No acute fracture. Paranasal sinuses: Near-complete opacification of the right maxillary sinus. Multifocal right anterior and posterior ethmoidal air cell opacification. Frontal sinuses absent on the left, hypoplastic on the right, demonstrates opacification, drainage pathway of the right frontal sinuses occluded. Mastoid air cells: Visualized mastoids are normal. No mastoid effusion. Soft tissues: Unremarkable. IMPRESSION: 1. No large vessel occlusion. Atherosclerotic disease as above. 2. No acute intracranial process. 3. Findings suggest right sinusitis. Correlate clinically. Dictated and Authenticated by: Zachary Escobedo MD. Orderin Colton Ingram MD
[2024-10-15 01:51] VITALS: BP 137/72; PULSE 82; RESP 16; O2SAT 95
== END 2024-10-15 01:52 | disposition home or self-care (01) ==
PROVIDERS: Emergency Provider Student in an Organized Health Care Education/Training Program; PCP Family Medicine
DX: J01.00 Acute maxillary sinusitis, unspecified (principal); R51.9 Headache, unspecified; I10 Essential (primary) hypertension; E11.40 Type 2 diabetes mellitus with diabetic neuropathy, unspecified; E78.5 Hyperlipidemia, unspecified; I25.2 Old myocardial infarction; F17.210 Nicotine dependence, cigarettes, uncomplicated; Z79.82 Long term (current) use of aspirin; Z79.4 Long term (current) use of insulin
CPT/HCPCS: 70496; 80053; 96361; 96365; 96375; 99285; 85025; J0131; J0780; J1200; J1885; J2919; J3490

== ENCOUNTER 2024-12-19 08:07 | Outpatient (CLI) | payer MEDICARE, OTHER, SELFPAY ==
[2024-12-19 19:30] LABS: PSA, Screening 0.7 ng/mL (<=3.5)
== END 2024-12-19 08:08 | disposition home or self-care (01) ==
LOC: LBO 08:08
PROVIDERS: PCP Family Medicine; Visit Provider Family Medicine
DX: Z12.5 Encounter for screening for malignant neoplasm of prostate (principal)
CPT/HCPCS: 36415; 84153

== ENCOUNTER → 2025-01-27 01:29 | Outpatient (CLI) | payer MEDICARE, OTHER, SELFPAY ==
--- NOTE | 2025-01-27 08:15 | DI.CTLCSR_ITS ---
Exam(s) CT CHEST LUNG CANCER SCREEN EXAM: CT CHEST LUNG CANCER SCREEN CLINICAL HISTORY: Screening for lung cancer,cigarette smoker, f17.210 TECHNIQUE: Imaging Protocol: Axial computed tomography images with coronal and sagittal reformatted images were created and reviewed. Low dose screening protocol. COMPARISON: CT CT CHEST LUNG CANCER SCREEN from 01/25/2024 FINDINGS: Tracheobronchial tree: No bronchiectasis or mucus plugging. Mediastinum and Ariane: No dominant adenopathy or fluid collection. Small hiatal hernia. Pulmonary parenchyma: No consolidation or dominant measurable mass. [id number] emphysematous changes. Mild interstitial changes. Lung Nodules: Stable peripheral micro nodules bilaterally. Pleura: No effusion. No pneumothorax. Heart: The heart is not dilated. Severe coronary artery calcifications are seen. No pericardial effusion. Aorta: Thoracic aorta non-dilated. Upper abdomen: Unremarkable. Bones: Unremarkable for age. Soft Tissues: Unremarkable. IMPRESSION: No suspicious pulmonary nodules. Stable small pulmonary nodules. Lung RADS Cat 2 - Benign Appearance / Behavior: Nodules with a very low likelihood of becoming a clinically active cancer due to size or lack of growth Lung-RADS 1.0 CATEGORIES: Category 0 - Prior chest CT exam(s) being located for comparison. Category 1 - Annual screening in 12 months. No nodules or definitely benign nodules. Category 2 - Annual screening in 12 months. Benign appearance. Nodules with low likelihood of becoming active cancer. Category 3 - 6-month follow-up. Probably benign. Short-term follow-up suggested. Nodules with low likelihood of becoming active cancer. Category 4A - 3-month follow-up and CT/PET if >8 mm in size. Suspicious finding. Findings which require additional testing. Category 4B - Findings which require additional testing and tissue sampling. Category 4X - Category 3 or 4 nodules with additional features or imaging findings that increases the suspicion of malignancy. Modifier S- Potentially clinically significant findings (non lung cancer) RADIATION DOSE DELIVERED: 55.48mGy.cm Total DLP DATA REPOSITORY: All CT scans at this facility are submitted to the National Radiology Data Registry (NRDR) Dose Index Registry (DIR) with the [employer] ([employer]). RADIATION OPTIMIZATION: All CT scans at this facility use at least one of these dose optimization techniques: automated exposure control; mA and/or kV adjustment per patient size (includes targeted exams where dose is matched to clinical indication); or iterative reconstruction.
== END ==
PROVIDERS: PCP Family Medicine; Visit Provider Family Medicine
DX: F17.210 Nicotine dependence, cigarettes, uncomplicated (principal)
CPT/HCPCS: 71271

== ENCOUNTER → 2025-02-11 09:21 | Outpatient (BNVA) | payer MEDICARE, OTHER, SELFPAY | PROVIDERS: PCP Family Medicine; Referring Provider Family Medicine; Visit Provider Internal Medicine Pulmonary Disease | DX: J44.9 Chronic obstructive pulmonary disease, unspecified (principal); G47.33 Obstructive sleep apnea (adult) (pediatric); R91.8 Other nonspecific abnormal finding of lung field; F17.210 Nicotine dependence, cigarettes, uncomplicated | CPT/HCPCS: 99215; 94618; G0296 ==